=== PATIENT | male | born 1940 | race Caucasian/White ===

== ENCOUNTER 2018-10-07 10:47 | Inpatient (IN) | payer MEDICARE ==
[2018-10-07] VITALS (18 sets, daily range): BP systolic 62–142; BP diastolic 44–72
[~2018-10-07] VITALS: Ht 177.8 cm; Wt 95.2 kg
[2018-10-07] MEDS ORDERED: IV NORMAL SALINE 1000ML BAG 1,000 ML IV SCH ×2 (10:52→16:00)
[2018-10-07] MEDS ORDERED: SUCCINYLCHOLINE 200 MG/10 ML VIAL. ONE (11:13)
[2018-10-07] MEDS ORDERED: ETOMIDATE 20 MG/10 ML VIAL. IV ONE ×2 (11:13→11:30)
[2018-10-07] MEDS ORDERED: MIDAZOLAM 100mg/100ml NS BAG 100 ML IV ONE (11:15)
[2018-10-07 11:25] LABS: BASE EXCESS ABG 1 mmol/L (-3-3); HCO3 ABG 31 mmol/L (21-28); PO2 ABG 477 mmHg (65-108); SAT O2 ABG 99 % (92-99)
[2018-10-07] MEDS ORDERED: SUCCINYLCHOLINE 200 MG/10 ML VIAL. IV ONE (11:30)
[2018-10-07 11:34] LABS: BILIRUBIN,URINE NEGATIVE (NEG); COLOR,URINE YELLOW; NITRITE,URINE POSITIVE (NEG); PH,URINE 6.5; PROTEIN,URINE 30 mg/dL (NEG-TRACE); UROBILINOGEN,URINE 0.2 mg/dL (0.2 mg/dL)
[2018-10-07 11:41] LABS: AMPHETAMINE/METHAMPHETAMINE NEG (NEG); BARBITURATES NEG (NEG); BENZODIAZEPINES POS (NEG); CANNABINOIDS NEG (NEG); COCAINE NEG (NEG); METHADONE NEG (NEG); OPIATES NEG (NEG); PHENCYCLIDINE NEG (NEG)
[2018-10-07 11:55] LABS: BACTERIA,URINE FEW /HPF (0-FEW); RBC,URINE TNTC /HPF (0-2); SQUAMOUS EPITHELIAL CELL,UR FEW /LPF; WBC,URINE 20-40 /HPF (0-4)
[2018-10-07 11:56] LABS: CLARITY,URINE HAZY
[2018-10-07] MEDS ORDERED: methylPREDNISolone SOD SUCC PF 125 MG/2 ML VIAL. IV ONE (12:00)
[2018-10-07] MEDS ORDERED: ALBUTEROL SULFATE 2.5 MG/3 ML NEBU. CONT NEB ONE (12:00)
[2018-10-07] MEDS ORDERED: VANCOMYCIN 1GM IVPB FOR OMNI 250 ML IV ONE (12:00)
[2018-10-07 12:07] LABS: PROTHROMBIN TIME PATIENT 14.1 SEC (11.7-14.0)
--- NOTE | 2018-10-07 12:07 | RAD ---
AP portable chest radiograph 10/07/2018 Clinical History: Post intubation. Unresponsive. An AP supine portable digital radiograph of the chest was obtained. No previous studies are available for comparison. An ET tube has been placed. The tip of this tube extends to overlie the trachea at the level of clavicles. A NG tube has been placed. The tip of this tube is off this radiograph in the region of the body of the stomach. The cardiac silhouette is normal in size. Atherosclerotic calcification of the thoracic aorta is seen. Patchy left lower lobe subsegmental atelectasis and/or infiltrate is noted. No pneumothorax or pleural effusion is seen. Degenerative changes are seen involving the thoracic spine. IMPRESSION: 1. ET and NG tube position as discussed above. 2. Patchy left lower lobe subsegmental atelectasis and/or infiltrate. Electronically signed by: Ben Danielson MD (10/07/2018 12:05 PM) [facility]
[2018-10-07 12:12] LABS: BASO % 0 % (0-3); D-DIMER 2.91 ug/mlFEU (0.00-0.50); EOS % 0 % (0-3); HEMATOCRIT 44.3 % (39.0-53.0); HEMOGLOBIN 13.8 g/dL (13.0-17.5); LYMPH # 0.5 x10^3/uL (1.0-4.8); LYMPH % 3 % (24-48); MEAN CORPUSCULAR HEMOGLOBIN 29 pg (25-35); MEAN CORPUSCULAR HGB CONC 31 g/dL (31-37); MEAN CORPUSCULAR VOLUME 93 fL (79-100); MONO % 6 % (0-9); NEUT # 15.7 x10^3uL (1.8-7.7); NEUT % 91 % (31-73); PLATELET COUNT 150 x10^3/uL (140-400); RED BLOOD COUNT 4.74 x10^6/uL (4.30-5.70); RED CELL DISTRIBUTION WIDTH 15.2 % (11.5-14.5); WHITE BLOOD COUNT 17.3 x10^3/uL (4.0-11.0)
--- NOTE | 2018-10-07 12:17 | RAD ---
CT scan of the head without contrast 10/07/2018 Clinical History: Unresponsive. Technique: Unenhanced, contiguous, 5 mm axial sections were obtained through the head. One or more of the following individualized dose reduction techniques were utilized for this study: 1. Automated exposure control. 2. Adjustment of the mA and/or kV according to patient size. 3. Use of iterative reconstruction technique. Findings: No previous studies are available for comparison. There is generalized parenchymal atrophy. Areas of decreased attenuation are seen within the periventricular and subcortical white matter of both cerebral hemispheres consistent with areas of small vessel ischemic disease. An area encephalomalacia seen involving the right temporal lobe which extends to involve the right parietal lobe. No acute parenchymal abnormality is seen. No extra-axial fluid collection is noted. No skull fracture is seen. Mild mucosal thickening is seen throughout the visualized paranasal sinuses. Impression: No acute intracranial abnormality is seen. Electronically signed by: Ben Danielson MD (10/07/2018 12:14 PM) [facility]
[2018-10-07 12:22] LABS: ALBUMIN 3.9 g/dL (3.4-5.0); ALBUMIN/GLOBULIN RATIO 1.1 (1.0-1.7); CALCIUM 8.7 mg/dL (8.5-10.1); CREATININE 2.1 mg/dL (0.7-1.3); GFR 30.9; MAGNESIUM 1.8 mg/dL (1.8-2.4); TOTAL PROTEIN 7.3 g/dL (6.4-8.2)
[2018-10-07 12:26] LABS: POTASSIUM 7.3 mmol/L (3.5-5.1)
[2018-10-07] MEDS ORDERED: SODIUM BICARB ADULT 8.4% 50 MEQ/50 ML DISP.SYRIN. IV ONE (12:45)
[2018-10-07] MEDS ORDERED: INSULIN REGULAR 100 UNIT/ML 3ML VIAL. IV ONE (12:45)
[2018-10-07] MEDS ORDERED: levOFLOXacin PER PHARMACY. MC PRN (12:45)
[2018-10-07] MEDS ORDERED: DEXTROSE 50% 25 GM / 50ML DISP.SYRIN. IV PRN (12:45)
[2018-10-07] MEDS ORDERED: PANTOPRAZOLE IV PUSH 40 MG VIAL. IVP ONE ×2 (12:45→12:52)
[2018-10-07] MEDS ORDERED: DEXTROSE 50% 25 GM / 50ML DISP.SYRIN. IV ONE (12:45)
[2018-10-07] MEDS ORDERED: IV NORMAL SALINE 1000ML BAG 1,000 ML IV ONE ×4 (12:45→15:00)
--- NOTE | 2018-10-07 12:53 | PHYS DOC ---
Past Medical History Past Medical History: COPD, CVA Past Surgical History: Other Additional Past Surgical Histo: UNKNOWN Alcohol Use: None Drug Use: None Adult General Chief Complaint Chief Complaint: NEURO SYMPTOMS/DEFICITS HPI HPI Patient is a 78 year old male who brought in by EMS because of unresponsiveness. Patient has history of COPD on 4 L of home oxygen and had sick contacts at home with cough and increasing shortness of breath for the last few days. Patient was seen at her recliner like his usual condition around 2 AM and this morning was found unresponsive without his oxygen and half way down on his chair. EMS reported that patient had O2 sat of 70s that increased with nonrebr eather to more than 90s and was able to move his right hand but was not able to move left hand and brought him as a possible code stroke. Patient is unresponsive at arrival to ER and only able to open his eyes without following any commands or responding to painful stimuli. Review of Systems Review of Systems Unable to obtain because of unresponsive condition Current Medications Current Medications Current Medications Medications (Trade) Dose Ordered Sig/Eric Start Time Stop Time Status Last Admin Dose Admin Etomidate (Amidate) 20 mg 1X ONCE 10/07/18 11:30 10/07/18 11:33 DC 10/07/18 11:01 20 MG Midazolam HCl 100 ml @ 1 mls/hr 1X ONCE 10/07/18 11:15 10/11/18 15:14 10/07/18 11:20 3 MLS/HR Sodium Chloride 1,000 ml @ 1,000 mls/hr Q1H 10/07/18 10:52 10/07/18 11:51 DC 10/07/18 11:27 1,000 MLS/HR Succinylcholine Chloride (Anectine) 100 mg 1X ONCE 10/07/18 11:30 10/07/18 11:33 DC 10/07/18 11:01 100 MG Physical Exam Physical Exam Constitutional: Unresponsive, severe respiratory distress on nonrebreather HENT: Normocephalic, atraumatic. Eyes: PERRLA. Neck: Atraumatic Cardiovascular: Tachycardia Lungs & Thorax: Severe respiratory distress with intercostal retraction and hyperventilation and nasal flaring on nonrebreather with decrease of air movement and generalized rhonchi Abdomen: Obese. Skin:cold Extremities:Does not move extremities , 2+ lower extremity edema edema. [] Neurologic: Unresponsive Current Patient Data Vital Signs Vital Signs Date Time Temp Pulse Resp B/P (MAP) Pulse Ox O2 Delivery O2 Flow Rate FiO2 10/07/18 11:25 96 10/07/18 11:10 88 10/07/18 11:10 Ventilator 10/07/18 10:47 98.4 31 102/63 (76) 98.4 Lab Values Laboratory Tests Test 10/07/18 10:52 10/07/18 11:01 10/07/18 11:25 10/07/18 11:30 O2 Saturation 99 % (92-99) Arterial Blood pH 7.23 (7.35-7.45) L Arterial Blood pCO2 at Patient Temp 76 mmHg (35-46) *H Arterial Blood pO2 at Patient Temp 477 mmHg (65-108) H Arterial Blood HCO3 31 mmol/L (21-28) H Arterial Blood Base Excess 1 mmol/L (-3-3) FiO2 100% Glucose (Fingerstick) 139 mg/dL (70-99) H POC Troponin I 0.14 ng/ml (<0.08) Urine Collection Type U cath Urine Color Yellow Urine Clarity Hazy Urine pH 6.5 Urine Specific [place]pton 1.015 Urine Protein 30 mg/dL (NEG-TRACE) Urine Glucose (UA) Negative mg/dL (NEG) Urine Ketones (Stick) Negative mg/dL (NEG) Urine Blood Large (NEG) Urine Nitrite Positive (NEG) Urine Bilirubin Negative (NEG) Urine Urobilinogen Dipstick 0.2 mg/dL (0.2 mg/dL) Urine Leukocyte Esterase Moderate (NEG) Urine RBC Tntc /HPF (0-2) Urine WBC 20-40 /HPF (0-4) Urine Squamous Epithelial Cells Few /LPF Urine Bacteria Few /HPF (0-FEW) Urine Opiates Screen Neg (NEG) Urine Methadone Screen Neg (NEG) Urine Barbiturates Neg (NEG) Urine Phencyclidine Screen Neg (NEG) Urine Amphetamine/Methamphetamine Neg (NEG) Urine Benzodiazepines Screen Pos (NEG) Urine Cocaine Screen Neg (NEG) Urine Cannabinoids Screen Neg (NEG) Urine Ethyl Alcohol neg (NEG) White Blood Count 17.3 x10^3/uL (4.0-11.0) H Red Blood Count 4.74 x10^6/uL (4.30-5.70) Hemoglobin 13.8 g/dL (13.0-17.5) Hematocrit 44.3 % (39.0-53.0) Mean Corpuscular Volume 93 fL (79-100) Mean Corpuscular Hemoglobin 29 pg (25-35) Mean Corpuscular Hemoglobin Concent 31 g/dL (31-37) Red Cell Distribution Width 15.2 % (11.5-14.5) H Platelet Count 150 x10^3/uL (140-400) Neutrophils (%) (Auto) 91 % (31-73) H Lymphocytes (%) (Auto) 3 % (24-48) L Monocytes (%) (Auto) 6 % (0-9) Eosinophils (%) (Auto) 0 % (0-3) Basophils (%) (Auto) 0 % (0-3) Neutrophils # (Auto) 15.7 x10^3uL (1.8-7.7) H Lymphocytes # (Auto) 0.5 x10^3/uL (1.0-4.8) L Monocytes # (Auto) 1.0 x10^3/uL (0.0-1.1) Eosinophils # (Auto) 0.0 x10^3/uL (0.0-0.7) Basophils # (Auto) 0.0 x10^3/uL (0.0-0.2) Segmented Neutrophils % 60 % (35-66) Band Neutrophils % 26 % (0-9) H Lymphocytes % 7 % (24-48) L Monocytes % 5 % (0-10) Basophils % 2 % (0-3) Toxic Vacuolation Slight Platelet Estimate Adequate (ADEQUATE) Giant Platelets Occ Prothrombin Time 14.1 SEC (11.7-14.0) H Prothrombin Time INR 1.1 (0.8-1.1) D-Dimer (Traci) 2.91 ug/mlFEU (0.00-0.50) H Sodium Level 140 mmol/L (136-145) Potassium Level 7.3 mmol/L (3.5-5.1) *H Chloride Level 100 mmol/L (98-107) Carbon Dioxide Level 32 mmol/L (21-32) Anion Gap 8 (6-14) Blood Urea Nitrogen 22 mg/dL (8-26) Creatinine 2.1 mg/dL (0.7-1.3) H Estimated GFR (Cockcroft-Gault) 30.9 BUN/Creatinine Ratio 10 (6-20) Glucose Level 145 mg/dL (70-99) H Lactic Acid Level 3.1 mmol/L (0.4-2.0) H Calcium Level 8.7 mg/dL (8.5-10.1) Magnesium Level 1.8 mg/dL (1.8-2.4) Total Bilirubin 2.0 mg/dL (0.2-1.0) H Aspartate Amino Transferase (AST) 47 U/L (15-37) H Alanine Aminotransferase (ALT) 55 U/L (16-63) Alkaline Phosphatase 89 U/L (46-116) Ammonia 28 mcmol/L (11-34) Creatine Kinase 262 U/L (39-308) Troponin I Quantitative 0.226 ng/mL (0.000-0.055) BO-Yad-X-Type Natriuretic Peptide 1041 pg/mL (0-449) H Total Protein 7.3 g/dL (6.4-8.2) Albumin 3.9 g/dL (3.4-5.0) Albumin/Globulin Ratio 1.1 (1.0-1.7) Lipase 45 U/L (73-393) L Laboratory Tests 10/07/18 11:30 Laboratory Tests 10/07/18 11:30 EKG EKG EKG interpreted by me. EKG at 11:30 showed sinus tachycardia at rate of 105, incomplete right bundle-branch block, no acute ST and T-wave abnormalities. Radiology/Procedures Radiology/Procedures [facility] [address] [place], [place] [id number] IMAGING REPORT Signed PATIENT: JOSLYN SOTELO ACCOUNT: [id number] : 1940 LOCATION: [address] [place] [address] AGE: 78 SEX: M EXAM STATUS: ADM IN ORD. PHYSICIAN: THIERNO SULTANA MD REASON: unresponsive, INTUBATION PROCEDURE: PORTABLE CHEST 1V AP portable chest radiograph 10/07/2018 Clinical History: Post intubation. Unresponsive. An AP supine portable digital radiograph of the chest was obtained. No previous studies are available for comparison. An ET tube has been placed. The tip of this tube extends to overlie the trachea at the level of clavicles. A NG tube has been placed. The tip of this tube is off this radiograph in the region of the body of the stomach. The cardiac silhouette is normal in size. Atherosclerotic calcification of the thoracic aorta is seen. Patchy left lower lobe subsegmental atelectasis and/or infiltrate is noted. No pneumothorax or pleural effusion is seen. Degenerative changes are seen involving the thoracic spine. IMPRESSION: 1. ET and NG tube position as discussed above. 2. Patchy left lower lobe subsegmental atelectasis and/or infiltrate. Electronically signed by: Ben Danielson MD (10/07/2018 12:05 PM) [facility] DICTATED and SIGNED BY: BEN DANIELSON MD DATE: 10/07/18 1208 [facility] [address] [facility] [place], [place] [phone] IMAGING REPORT Signed PATIENT: JOSLYN SOTELO ACCOUNT: [id number] : 1940 LOCATION: [facility] ICU AGE: 78 SEX: M EXAM STATUS: ADM IN ORD. PHYSICIAN: THIERNO SULTANA MD REASON: unresponsive / AMS PROCEDURE: CT HEAD WO CONTRAST CT scan of the head without contrast 10/07/2018 Clinical History: Unresponsive. Technique: Unenhanced, contiguous, 5 mm axial sections were obtained through the head. One or more of the following individualized dose reduction techniques were utilized for this study: 1. Automated exposure control. 2. Adjustment of the mA and/or kV according to patient size. 3. Use of iterative reconstruction technique. Findings: No previous studies are available for comparison. There is generalized parenchymal atrophy. Areas of decreased attenuation are seen within the periventricular and subcortical white matter of both cerebral hemispheres consistent with areas of small vessel ischemic disease. An area encephalomalacia seen involving the right temporal lobe which extends to involve the right parietal lobe. No acute parenchymal abnormality is seen. No extra-axial fluid collection is noted. No skull fracture is seen. Mild mucosal thickening is seen throughout the visualized paranasal sinuses. Impression: No acute intracranial abnormality is seen. Electronically signed by: Ben Danielson MD (10/07/2018 12:14 PM) [facility] DICTATED and SIGNED BY: BEN DANIELSON MD DATE: 10/07/18 1214 Course & Med Decision Making Course & Med Decision Making Pertinent Labs and Imaging studies reviewed. (See chart for details) Evaluation of Patient in ER showed 78-year-old male patient brought in by EMS because of acute respiratory distress and unresponsiveness and was intubated at arrival to ER. Patient later on was in his extremities except for left upper extremity. Patient treated with Versed and his blood pressure dropped to 60s that improved after IV fluid to more than 100 at time of transfer to ICU. Dr. Pritchard presented to ER and evaluated the patient. Dragon Disclaimer Dragon Disclaimer This electronic medical record was generated, in whole or in part, using a voice recognition dictation system. Departure Departure Impression: Primary Impression: Acute respiratory distress Additional Impressions: Unresponsiveness CAP (community acquired pneumonia) Sepsis Hyperkalemia Renal insufficiency Urinary tract infection Elevated liver function tests Elevated troponin I level CHF (congestive heart failure) Disposition: ADMITTED INPATIENT (at 12:30) Admitting Physician: Veronique Pritchrad (presented to ER and evaluated the patient) Condition: GUARDED Referrals: BERHANE DAVIS DO (PCP) Intubation Procedure Intubation Procedure Intub Indication: Respiratory failure Consent: Unable to give consent due to emergent nature. Medications Used: see nursing note Procedure: The patient was placed in the appropriate position. Intubation was performed [address] visualization and 7.5 tube was placed and was secured with device. Initial confirmation of placement included bilateral breath sounds, tube fogging, adequate chest rise, adequate pulse oximetry reading. A chest x-ray to verify correct placement of the tube showed appropriate tube pos ition. The patient tolerated the procedure well. Complications: none. Critical Care Time Critical care time was 80 minutes exclusive of procedures. Problem Qualifiers Additional Impressions: CAP (community acquired pneumonia) Laterality: left Lung location: unspecified part of lung Qualified Codes: J18.9 - Pneumonia, unspecified organism Sepsis Sepsis type: sepsis due to unspecified organism Qualified Codes: A41.9 - Sepsis, unspecified organism Urinary tract infection Urinary tract infection type: site unspecified Hematuria presence: with hematuria Qualified Codes: N39.0 - Urinary tract infection, site not spe cified; R31.9 - Hematuria, unspecified CHF (congestive heart failure) Heart failure type: unspecified Heart failure chronicity: unspecified Q ualified Codes: I50.9 - Heart failure, unspecified THIERNO SULTANA MD October 07, 2018 12:53
--- NOTE | 2018-10-07 12:55 | PDOC1 ---
History and Physical Date of Admission Date of Admission DATE: 10/07/18 TIME: 12:46 Identification/Chief Complaint Chief Complaint Found unresponsive at home by family Source Source: Caregiver, Chart review, Patient History of Present Illness History of Present Illness 78-year-old white male history of COPD O2 dependent quit smoking 4 years ago, on 3 L nasal cannula at home and 5 L on exertion Was last seen well 2: 30 a.m. when he was watching TV as per relay. Son also helps in hx at bedside. No known significant coronary problems that they can relate to me. HX stroke 2011 with no significant residuals, HE was found unresponsive or minimally responsive at home, no CP prior, EMS called. No CPR needed did not lose a pulse. Intubated at the emergency room. He was waking his eyes but was lethargic at ER. Intubated, small dose versed, and a little bit hypotensive now 60s systolic tachycardia. Chest x-ray shows atelectasis and maybe left lower lobe infiltrate. Also UTI on UA. Tested positive for benzos and UDS and he is on inhalers and some medications. Got a dose of Levaquin and Solu-Medrol. Lactate is elevated with potassium 7 with no EKG changes and normal creatinine with good urine output via Jeffers. We will admit for respiratory failure pulmonary on board to ICU, antibiotics for UTI and pneumonia. And other supportive meds i.e. tube feeds etc. PPI prophylaxis and DVT prophylaxis. The rest of the labs are still rolling Did get insulin and some temporizing measures for hyperkalemia from ER Past Medical History Pulmonary: Bronchitis, COPD Past Surgical History Past Surgical History: No pertinent history Family History Family History: Family History Unknown Social History Smoke: Quit ALCOHOL: none Drugs: None Current Medications Current Medications Current Medications Sodium Chloride 1,000 ml @ 1,000 mls/hr Q1H IV Last administered on 10/07/18at 11:27; Start 10/07/18 at 10:52; Stop 10/07/18 at 11:51; Status DC Midazolam HCl 100 ml @ 1 mls/hr 1X ONCE IV Last administered on 10/07/18at 11:20; Start 10/07/18 at 11:15; Stop 10/11/18 at 15:14 Etomidate (Amidate) 20 mg STK-MED ONCE IV ; Start 10/07/18 at 11:13; Stop 10/07/18 at 11:14; Status DC Succinylcholine Chloride (Anectine) 200 mg STK-MED ONCE .ROUTE ; Start 10/07/18 at 11:13; Stop 10/07/18 at 11:14; Status DC Etomidate (Amidate) 20 mg 1X ONCE IV Last administered on 10/07/18at 11:01; Start 10/07/18 at 11:30; Stop 10/07/18 at 11:33; Status DC Succinylcholine Chloride (Anectine) 100 mg 1X ONCE IV Last administered on 10/07/18at 11:01; Start 10/07/18 at 11:30; Stop 10/07/18 at 11:33; Status DC Albuterol Sulfate (Ventolin Neb Soln) 10 mg 1X ONCE CONT NEB ; Start 10/07/18 at 12:00; Stop 10/07/18 at 12:01; Status DC Methylprednisolone Sodium Succinate (SOLU-Medrol 125MG VIAL) 125 mg 1X ONCE IV Last administered on 10/07/18at 11:52; Start 10/07/18 at 12:00; Stop 10/07/18 at 12:01; Status DC Vancomycin HCl 250 ml @ 250 mls/hr 1X ONCE IV Last administered on 10/07/18at 12:27; Start 10/07/18 at 12:00; Stop 10/07/18 at 12:59 Levofloxacin/ Dextrose 150 ml @ 100 mls/hr 1X ONCE IV Last administered on 10/07/18at 12:28; Start 10/07/18 at 12:00; Stop 10/07/18 at 13:29 Sodium Chloride 1,000 ml @ 1,000 mls/hr 1X ONCE IV ; Start 10/07/18 at 12:45; Stop 10/07/18 at 13:44 Sodium Chloride 1,000 ml @ 1,000 mls/hr 1X ONCE IV ; Start 10/07/18 at 12:45; Stop 10/07/18 at 13:44 Dextrose (Dextrose 50%-Water Syringe) 25 gm 1X ONCE IV ; Start 10/07/18 at 12:45; Stop 10/07/18 at 12:46; Status DC Insulin Human Regular (HumuLIN R VIAL) 10 unit 1X ONCE IV ; Start 10/07/18 at 12:45; Stop 10/07/18 at 12:46; Status DC Sodium Bicarbonate (Sodium Bicarb Adult 8.4% Syr) 50 meq 1X ONCE IV ; Start 10/07/18 at 12:45; Stop 10/07/18 at 12:46; Status DC Sodium Chloride 1,000 ml @ 100 mls/hr Q10H IV ; Start 10/07/18 at 12:45; Status UNV Pantoprazole Sodium (PROTONIX VIAL for IV PUSH) 40 mg DAILYAC IVP ; Start 10/08/18 at 07:30; Status UNV Pantoprazole Sodium (PROTONIX VIAL for IV PUSH) 40 mg 1X ONCE IVP ; Start 10/07/18 at 12:45; Stop 10/07/18 at 12:46; Status UNV Heparin Sodium (Porcine) (Heparin Sodium) 5,000 unit Q8HRS SQ ; Start 10/07/18 at 14:00; Status UNV Levofloxacin/ Dextrose (Levaquin Per Pharmacy) 1 each PRN DAILY PRN MC SEE COMMENTS; Start 10/07/18 at 12:45; Status UNV Insulin Human Lispro (HumaLOG) 0-9 UNITS TIDWMEALS SQ ; Start 10/07/18 at 17:00; Status UNV Dextrose (Dextrose 50%-Water Syringe) 12.5 gm PRN Q15MIN PRN IV SEE COMMENTS; Start 10/07/18 at 12:45; Status UNV Albuterol/ Ipratropium (Duoneb) 3 ml RTQID NEB ; Start 10/07/18 at 16:00; Status UNV Methylprednisolone Sodium Succinate (SOLU-Medrol 40MG VIAL) 40 mg Q8HRS IV ; Start 10/07/18 at 14:00; Status UNV Acetaminophen (Tylenol) 650 mg PRN Q6HRS PRN PEG MILD PAIN / TEMP; Start 10/07/18 at 12:45; Status UNV Morphine Sulfate (Morphine Sulfate) 2 mg PRN Q2HR PRN IV PAIN; Start 10/07/18 at 12:45; Status UNV Ondansetron HCl (Zofran) 4 mg PRN Q6HRS PRN IV NAUSEA/VOMITING; Start 10/07/18 at 12:45; Status UNV Norepinephrine Bitartrate 250 ml @ 1.875 mls/ hr CONT PRN IV SEE I/O RECORD; Start 10/07/18 at 12:45; Status UNV Allergies Allergies: Coded Allergies: Penicillins (Verified Allergy, Intermediate, 10/07/18) erythromycin base (Verified Allergy, Intermediate, 10/07/18) ROS Review of System Intubated sedated Physical Exam General: No acute distress HEENT: Atraumatic, PERRLA, EOMI, Mucous membr. moist/pink, Other (intubated sedated) Lungs: Normal air movement, Other (symmetrical chest expansion no crackles or significant wheezing noted on anterior auscultation) Heart: S1S2, RRR, no thrills, no rubs, no gallops, no murmurs Cardiovascular: S1, S2 Abdomen: Normal bowel sounds, Soft, No tenderness, No hepatosplenomegaly, No masses Male Genitals Exam: normal genitalia, normal prostate Rectal Exam: not examined PELVIC: Nml ext genitalia Extremities: No clubbing, No cyanosis, No edema, Normal pulses, No tenderness/swelling Skin: No rashes, No breakdown, No significant lesion Vitals Vitals Vital Signs Date Time Temp Pulse Resp B/P (MAP) Pulse Ox O2 Delivery O2 Flow Rate FiO2 10/07/18 12:13 93 Ventilator 10/07/18 10:47 98.4 31 31 102/63 (76) 98.4 Labs Labs Laboratory Tests Test 10/07/18 10:52 10/07/18 11:01 10/07/18 11:25 10/07/18 11:30 Glucose (Fingerstick) 139 mg/dL (70-99) Bedside Troponin I 0.14 ng/ml (<0.08) Urine Collection Type U cath Urine Color Yellow Urine Clarity Hazy Urine pH 6.5 Urine Specific Muse 1.015 Urine Protein 30 mg/dL (NEG-TRACE) Urine Glucose (UA) Negative mg/dL (NEG) Urine Ketones (Stick) Negative mg/dL (NEG) Urine Blood Large (NEG) Urine Nitrite Positive (NEG) Urine Bilirubin Negative (NEG) Urine Urobilinogen Dipstick 0.2 mg/dL (0.2 mg/dL) Urine Leukocyte Esterase Moderate (NEG) Urine RBC Tntc /HPF (0-2) Urine WBC 20-40 /HPF (0-4) Urine Squamous Epithelial Cells Few /LPF Urine Bacteria Few /HPF (0-FEW) Urine Opiates Screen Neg (NEG) Urine Methadone Screen Neg (NEG) Urine Barbiturates Neg (NEG) Urine Phencyclidine Screen Neg (NEG) Urine Amphetamine/Methamphetamine Neg (NEG) Urine Benzodiazepines Screen Pos (NEG) Urine Cocaine Screen Neg (NEG) Urine Cannabinoids Screen Neg (NEG) Urine Ethyl Alcohol neg (NEG) White Blood Count 17.3 x10^3/uL (4.0-11.0) Red Blood Count 4.74 x10^6/uL (4.30-5.70) Hemoglobin 13.8 g/dL (13.0-17.5) Hematocrit 44.3 % (39.0-53.0) Mean Corpuscular Volume 93 fL (79-100) Mean Corpuscular Hemoglobin 29 pg (25-35) Mean Corpuscular Hemoglobin Concent 31 g/dL (31-37) Red Cell Distribution Width 15.2 % (11.5-14.5) Platelet Count 150 x10^3/uL (140-400) Neutrophils (%) (Auto) 91 % (31-73) Lymphocytes (%) (Auto) 3 % (24-48) Monocytes (%) (Auto) 6 % (0-9) Eosinophils (%) (Auto) 0 % (0-3) Basophils (%) (Auto) 0 % (0-3) Neutrophils # (Auto) 15.7 x10^3uL (1.8-7.7) Lymphocytes # (Auto) 0.5 x10^3/uL (1.0-4.8) Monocytes # (Auto) 1.0 x10^3/uL (0.0-1.1) Eosinophils # (Auto) 0.0 x10^3/uL (0.0-0.7) Basophils # (Auto) 0.0 x10^3/uL (0.0-0.2) Prothrombin Time 14.1 SEC (11.7-14.0) Prothromb Time International Ratio 1.1 (0.8-1.1) D-Dimer (Traci) 2.91 ug/mlFEU (0.00-0.50) Sodium Level 140 mmol/L (136-145) Potassium Level 7.3 mmol/L (3.5-5.1) Chloride Level 100 mmol/L (98-107) Carbon Dioxide Level 32 mmol/L (21-32) Anion Gap 8 (6-14) Blood Urea Nitrogen 22 mg/dL (8-26) Creatinine 2.1 mg/dL (0.7-1.3) Estimated GFR (Cockcroft-Gault) 30.9 BUN/Creatinine Ratio 10 (6-20) Glucose Level 145 mg/dL (70-99) Lactic Acid Level 3.1 mmol/L (0.4-2.0) Calcium Level 8.7 mg/dL (8.5-10.1) Magnesium Level 1.8 mg/dL (1.8-2.4) Total Bilirubin 2.0 mg/dL (0.2-1.0) Aspartate Amino Transf (AST/SGOT) 47 U/L (15-37) Alanine Aminotransferase (ALT/SGPT) 55 U/L (16-63) Alkaline Phosphatase 89 U/L (46-116) Ammonia 28 mcmol/L (11-34) Creatine Kinase 262 U/L (39-308) Troponin I Quantitative 0.226 ng/mL (0.000-0.055) GG-Ylr-M-Type Natriuretic Peptide 1041 pg/mL (0-449) Total Protein 7.3 g/dL (6.4-8.2) Albumin 3.9 g/dL (3.4-5.0) Albumin/Globulin Ratio 1.1 (1.0-1.7) Lipase 45 U/L (73-393) Laboratory Tests Test 10/07/18 10:52 10/07/18 11:01 10/07/18 11:25 10/07/18 11:30 Glucose (Fingerstick) 139 mg/dL (70-99) Bedside Troponin I 0.14 ng/ml (<0.08) Urine Collection Type U cath Urine Color Yellow Urine Clarity Hazy Urine pH 6.5 Urine Specific Muse 1.015 Urine Protein 30 mg/dL (NEG-TRACE) Urine Glucose (UA) Negative mg/dL (NEG) Urine Ketones (Stick) Negative mg/dL (NEG) Urine Blood Large (NEG) Urine Nitrite Positive (NEG) Urine Bilirubin Negative (NEG) Urine Urobilinogen Dipstick 0.2 mg/dL (0.2 mg/dL) Urine Leukocyte Esterase Moderate (NEG) Urine RBC Tntc /HPF (0-2) Urine WBC 20-40 /HPF (0-4) Urine Squamous Epithelial Cells Few /LPF Urine Bacteria Few /HPF (0-FEW) Urine Opiates Screen Neg (NEG) Urine Methadone Screen Neg (NEG) Urine Barbiturates Neg (NEG) Urine Phencyclidine Screen Neg (NEG) Urine Amphetamine/Methamphetamine Neg (NEG) Urine Benzodiazepines Screen Pos (NEG) Urine Cocaine Screen Neg (NEG) Urine Cannabinoids Screen Neg (NEG) Urine Ethyl Alcohol neg (NEG) White Blood Count 17.3 x10^3/uL (4.0-11.0) Red Blood Count 4.74 x10^6/uL (4.30-5.70) Hemoglobin 13.8 g/dL (13.0-17.5) Hematocrit 44.3 % (39.0-53.0) Mean Corpuscular Volume 93 fL (79-100) Mean Corpuscular Hemoglobin 29 pg (25-35) Mean Corpuscular Hemoglobin Concent 31 g/dL (31-37) Red Cell Distribution Width 15.2 % (11.5-14.5) Platelet Count 150 x10^3/uL (140-400) Neutrophils (%) (Auto) 91 % (31-73) Lymphocytes (%) (Auto) 3 % (24-48) Monocytes (%) (Auto) 6 % (0-9) Eosinophils (%) (Auto) 0 % (0-3) Basophils (%) (Auto) 0 % (0-3) Neutrophils # (Auto) 15.7 x10^3uL (1.8-7.7) Lymphocytes # (Auto) 0.5 x10^3/uL (1.0-4.8) Monocytes # (Auto) 1.0 x10^3/uL (0.0-1.1) Eosinophils # (Auto) 0.0 x10^3/uL (0.0-0.7) Basophils # (Auto) 0.0 x10^3/uL (0.0-0.2) Prothrombin Time 14.1 SEC (11.7-14.0) Prothromb Time International Ratio 1.1 (0.8-1.1) D-Dimer (Traci) 2.91 ug/mlFEU (0.00-0.50) Sodium Level 140 mmol/L (136-145) Potassium Level 7.3 mmol/L (3.5-5.1) Chloride Level 100 mmol/L (98-107) Carbon Dioxide Level 32 mmol/L (21-32) Anion Gap 8 (6-14) Blood Urea Nitrogen 22 mg/dL (8-26) Creatinine 2.1 mg/dL (0.7-1.3) Estimated GFR (Cockcroft-Gault) 30.9 BUN/Creatinine Ratio 10 (6-20) Glucose Level 145 mg/dL (70-99) Lactic Acid Level 3.1 mmol/L (0.4-2.0) Calcium Level 8.7 mg/dL (8.5-10.1) Magnesium Level 1.8 mg/dL (1.8-2.4) Total Bilirubin 2.0 mg/dL (0.2-1.0) Aspartate Amino Transf (AST/SGOT) 47 U/L (15-37) Alanine Aminotransferase (ALT/SGPT) 55 U/L (16-63) Alkaline Phosphatase 89 U/L (46-116) Ammonia 28 mcmol/L (11-34) Creatine Kinase 262 U/L (39-308) Troponin I Quantitative 0.226 ng/mL (0.000-0.055) BL-Asz-N-Type Natriuretic Peptide 1041 pg/mL (0-449) Total Protein 7.3 g/dL (6.4-8.2) Albumin 3.9 g/dL (3.4-5.0) Albumin/Globulin Ratio 1.1 (1.0-1.7) Lipase 45 U/L (73-393) VTE Prophylaxis Ordered VTE Prophylaxis Devices: Yes VTE Pharmacological Prophylaxi: Yes Assessment/Plan Assessment/Plan Acute respiratory failure needing IPPV intubated at ER COPD O2 dependent 2-3 L at home at rest and 5 L on exertion [id number] 4 years ago Atelectasis versus left lower lobe pneumonia UTI Hyperkalemia with no EKG changes Sepsis POA with elevated lactate, tachycardia, leukocytosis 17 Troponin elevation mild with a background of sepsis no EKG changes PLAN: ICU bed, vent bundle, pulmonary consult Levaquin for UTI and pneumonia Add calcium gluconate kayexylate for hyperkal Recheck K later 4 PM trend troponin make sure it's not climbing up-if climbing up then may consult cardiology Echo Maintain Jeffers catheter, monitor urine output DVT and PPI ppx in this vented patient Nutrition consult for tube feeds Full code Further recs pending course Recheck lactate and labs tomorrow Discussed with and son at the ER THI MERA MD October 07, 2018 12:55
[2018-10-07] MEDS: PANTOPRAZOLE IV PUSH 40 MG VIAL. IVP SCH (12:59)
[2018-10-07 13:15] LABS: % BANDS 26 % (0-9); % BASOS 2 % (0-3); % LYMPHS 7 % (24-48); % MONOS 5 % (0-10); % SEGS 60 % (35-66); PLT ESTIMATE ADEQUATE (ADEQUATE); TOXIC VACUOLATION SLIGHT
[2018-10-07] MEDS ORDERED: SODIUM POLYSTYRENE SULFONATE 15 GM/60 ML ORAL.SUSP. PO ONE (13:30)
[2018-10-07] MEDS ORDERED: CALCIUM GLUCONATE 1,000 MG/10 ML VIAL. IVP ONE (13:30)
[2018-10-07] MEDS ORDERED: NOREPINEPHRIN 8MG/250ML PREMIX 250 ML IV PRN (14:00)
[2018-10-07] MEDS: IV NORMAL SALINE 1000ML BAG 1,000 ML IV SCH ×2 (14:07→21:55)
[2018-10-07] MEDS: HEPARIN for SUB-Q USE 5,000 UNIT/ML VIAL. SQ SCH ×2 (14:14→21:55)
[2018-10-07 14:25] LABS: FIO2 ABG 100%; PCO2 ABG 76 mmHg (35-46)
--- NOTE | 2018-10-07 14:53 | PDOC ---
PULMONARY PROGRESS NOTES Vitals Vital Signs Date Time Temp Pulse Resp B/P (MAP) Pulse Ox O2 Delivery O2 Flow Rate FiO2 10/07/18 13:20 90 100 10/07/18 12:20 21 10/07/18 12:13 Ventilator 10/07/18 10:47 98.4 102/63 (76) 98.4 Cardiovascular: S1, S2 Labs Laboratory Tests Test 10/07/18 10:52 10/07/18 11:01 10/07/18 11:25 10/07/18 11:30 O2 Saturation 99 % (92-99) Arterial Blood pH 7.23 (7.35-7.45) Arterial Blood pCO2 at Patient Temp 76 mmHg (35-46) Arterial Blood pO2 at Patient Temp 477 mmHg (65-108) Arterial Blood HCO3 31 mmol/L (21-28) Arterial Blood Base Excess 1 mmol/L (-3-3) FiO2 100% Glucose (Fingerstick) 139 mg/dL (70-99) Bedside Troponin I 0.14 ng/ml (<0.08) Urine Collection Type U cath Urine Color Yellow Urine Clarity Hazy Urine pH 6.5 Urine Specific Grayling 1.015 Urine Protein 30 mg/dL (NEG-TRACE) Urine Glucose (UA) Negative mg/dL (NEG) Urine Ketones (Stick) Negative mg/dL (NEG) Urine Blood Large (NEG) Urine Nitrite Positive (NEG) Urine Bilirubin Negative (NEG) Urine Urobilinogen Dipstick 0.2 mg/dL (0.2 mg/dL) Urine Leukocyte Esterase Moderate (NEG) Urine RBC Tntc /HPF (0-2) Urine WBC 20-40 /HPF (0-4) Urine Squamous Epithelial Cells Few /LPF Urine Bacteria Few /HPF (0-FEW) Urine Opiates Screen Neg (NEG) Urine Methadone Screen Neg (NEG) Urine Barbiturates Neg (NEG) Urine Phencyclidine Screen Neg (NEG) Urine Amphetamine/Methamphetamine Neg (NEG) Urine Benzodiazepines Screen Pos (NEG) Urine Cocaine Screen Neg (NEG) Urine Cannabinoids Screen Neg (NEG) Urine Ethyl Alcohol neg (NEG) White Blood Count 17.3 x10^3/uL (4.0-11.0) Red Blood Count 4.74 x10^6/uL (4.30-5.70) Hemoglobin 13.8 g/dL (13.0-17.5) Hematocrit 44.3 % (39.0-53.0) Mean Corpuscular Volume 93 fL (79-100) Mean Corpuscular Hemoglobin 29 pg (25-35) Mean Corpuscular Hemoglobin Concent 31 g/dL (31-37) Red Cell Distribution Width 15.2 % (11.5-14.5) Platelet Count 150 x10^3/uL (140-400) Neutrophils (%) (Auto) 91 % (31-73) Lymphocytes (%) (Auto) 3 % (24-48) Monocytes (%) (Auto) 6 % (0-9) Eosinophils (%) (Auto) 0 % (0-3) Basophils (%) (Auto) 0 % (0-3) Neutrophils # (Auto) 15.7 x10^3uL (1.8-7.7) Lymphocytes # (Auto) 0.5 x10^3/uL (1.0-4.8) Monocytes # (Auto) 1.0 x10^3/uL (0.0-1.1) Eosinophils # (Auto) 0.0 x10^3/uL (0.0-0.7) Basophils # (Auto) 0.0 x10^3/uL (0.0-0.2) Segmented Neutrophils % 60 % (35-66) Band Neutrophils % 26 % (0-9) Lymphocytes % 7 % (24-48) Monocytes % 5 % (0-10) Basophils % 2 % (0-3) Toxic Vacuolation Slight Platelet Estimate Adequate (ADEQUATE) Giant Platelets Occ Prothrombin Time 14.1 SEC (11.7-14.0) Prothromb Time International Ratio 1.1 (0.8-1.1) D-Dimer (Traci) 2.91 ug/mlFEU (0.00-0.50) Sodium Level 140 mmol/L (136-145) Potassium Level 7.3 mmol/L (3.5-5.1) Chloride Level 100 mmol/L (98-107) Carbon Dioxide Level 32 mmol/L (21-32) Anion Gap 8 (6-14) Blood Urea Nitrogen 22 mg/dL (8-26) Creatinine 2.1 mg/dL (0.7-1.3) Estimated GFR (Cockcroft-Gault) 30.9 BUN/Creatinine Ratio 10 (6-20) Glucose Level 145 mg/dL (70-99) Lactic Acid Level 3.1 mmol/L (0.4-2.0) Calcium Level 8.7 mg/dL (8.5-10.1) Magnesium Level 1.8 mg/dL (1.8-2.4) Total Bilirubin 2.0 mg/dL (0.2-1.0) Aspartate Amino Transf (AST/SGOT) 47 U/L (15-37) Alanine Aminotransferase (ALT/SGPT) 55 U/L (16-63) Alkaline Phosphatase 89 U/L (46-116) Ammonia 28 mcmol/L (11-34) Creatine Kinase 262 U/L (39-308) Troponin I Quantitative 0.226 ng/mL (0.000-0.055) AA-Owa-A-Type Natriuretic Peptide 1041 pg/mL (0-449) Total Protein 7.3 g/dL (6.4-8.2) Albumin 3.9 g/dL (3.4-5.0) Albumin/Globulin Ratio 1.1 (1.0-1.7) Lipase 45 U/L (73-393) Test 10/07/18 14:31 Glucose (Fingerstick) 168 mg/dL (70-99) Laboratory Tests Test 10/07/18 10:52 10/07/18 11:01 10/07/18 11:25 10/07/18 11:30 O2 Saturation 99 % (92-99) Arterial Blood pH 7.23 (7.35-7.45) Arterial Blood pCO2 at Patient Temp 76 mmHg (35-46) Arterial Blood pO2 at Patient Temp 477 mmHg (65-108) Arterial Blood HCO3 31 mmol/L (21-28) Arterial Blood Base Excess 1 mmol/L (-3-3) FiO2 100% Glucose (Fingerstick) 139 mg/dL (70-99) Bedside Troponin I 0.14 ng/ml (<0.08) Urine Collection Type U cath Urine Color Yellow Urine Clarity Hazy Urine pH 6.5 Urine Specific Grayling 1.015 Urine Protein 30 mg/dL (NEG-TRACE) Urine Glucose (UA) Negative mg/dL (NEG) Urine Ketones (Stick) Negative mg/dL (NEG) Urine Blood Large (NEG) Urine Nitrite Positive (NEG) Urine Bilirubin Negative (NEG) Urine Urobilinogen Dipstick 0.2 mg/dL (0.2 mg/dL) Urine Leukocyte Esterase Moderate (NEG) Urine RBC Tntc /HPF (0-2) Urine WBC 20-40 /HPF (0-4) Urine Squamous Epithelial Cells Few /LPF Urine Bacteria Few /HPF (0-FEW) Urine Opiates Screen Neg (NEG) Urine Methadone Screen Neg (NEG) Urine Barbiturates Neg (NEG) Urine Phencyclidine Screen Neg (NEG) Urine Amphetamine/Methamphetamine Neg (NEG) Urine Benzodiazepines Screen Pos (NEG) Urine Cocaine Screen Neg (NEG) Urine Cannabinoids Screen Neg (NEG) Urine Ethyl Alcohol neg (NEG) White Blood Count 17.3 x10^3/uL (4.0-11.0) Red Blood Count 4.74 x10^6/uL (4.30-5.70) Hemoglobin 13.8 g/dL (13.0-17.5) Hematocrit 44.3 % (39.0-53.0) Mean Corpuscular Volume 93 fL (79-100) Mean Corpuscular Hemoglobin 29 pg (25-35) Mean Corpuscular Hemoglobin Concent 31 g/dL (31-37) Red Cell Distribution Width 15.2 % (11.5-14.5) Platelet Count 150 x10^3/uL (140-400) Neutrophils (%) (Auto) 91 % (31-73) Lymphocytes (%) (Auto) 3 % (24-48) Monocytes (%) (Auto) 6 % (0-9) Eosinophils (%) (Auto) 0 % (0-3) Basophils (%) (Auto) 0 % (0-3) Neutrophils # (Auto) 15.7 x10^3uL (1.8-7.7) Lymphocytes # (Auto) 0.5 x10^3/uL (1.0-4.8) Monocytes # (Auto) 1.0 x10^3/uL (0.0-1.1) Eosinophils # (Auto) 0.0 x10^3/uL (0.0-0.7) Basophils # (Auto) 0.0 x10^3/uL (0.0-0.2) Segmented Neutrophils % 60 % (35-66) Band Neutrophils % 26 % (0-9) Lymphocytes % 7 % (24-48) Monocytes % 5 % (0-10) Basophils % 2 % (0-3) Toxic Vacuolation Slight Platelet Estimate Adequate (ADEQUATE) Giant Platelets Occ Prothrombin Time 14.1 SEC (11.7-14.0) Prothromb Time International Ratio 1.1 (0.8-1.1) D-Dimer (Traci) 2.91 ug/mlFEU (0.00-0.50) Sodium Level 140 mmol/L (136-145) Potassium Level 7.3 mmol/L (3.5-5.1) Chloride Level 100 mmol/L (98-107) Carbon Dioxide Level 32 mmol/L (21-32) Anion Gap 8 (6-14) Blood Urea Nitrogen 22 mg/dL (8-26) Creatinine 2.1 mg/dL (0.7-1.3) Estimated GFR (Cockcroft-Gault) 30.9 BUN/Creatinine Ratio 10 (6-20) Glucose Level 145 mg/dL (70-99) Lactic Acid Level 3.1 mmol/L (0.4-2.0) Calcium Level 8.7 mg/dL (8.5-10.1) Magnesium Level 1.8 mg/dL (1.8-2.4) Total Bilirubin 2.0 mg/dL (0.2-1.0) Aspartate Amino Transf (AST/SGOT) 47 U/L (15-37) Alanine Aminotransferase (ALT/SGPT) 55 U/L (16-63) Alkaline Phosphatase 89 U/L (46-116) Ammonia 28 mcmol/L (11-34) Creatine Kinase 262 U/L (39-308) Troponin I Quantitative 0.226 ng/mL (0.000-0.055) QU-Ckk-E-Type Natriuretic Peptide 1041 pg/mL (0-449) Total Protein 7.3 g/dL (6.4-8.2) Albumin 3.9 g/dL (3.4-5.0) Albumin/Globulin Ratio 1.1 (1.0-1.7) Lipase 45 U/L (73-393) Test 10/07/18 14:31 Glucose (Fingerstick) 168 mg/dL (70-99) Impression . DICTATED A RESP FAILURE AECOPD PNEUMONIA KRISTI DOMINGUEZ MD October 07, 2018 14:53
[2018-10-07] MEDS ORDERED: CALCIUM GLUCONATE 1,000 MG in IV NORMAL SALINE 100ML 100 ML IV ONE (15:00)
[2018-10-07] MEDS ORDERED: ALBUTEROL SULFATE 2.5 MG/3 ML NEBU. NEB PRN (15:00)
--- NOTE | 2018-10-07 15:00 | NUR ---
Pt arrived to ICU bed 103 via gurney from ED. Pt found unresponsive at home. Pt currently on ventilator with think secretions. horowitz catheter intact. Og connected to LIS. at bedside. Consults called to cardiology, ID, and pulmonary. Will continue to monitor.
[2018-10-07] MEDS: IPRATRPIUM/ALBUTEROL 0.5/2.5MG 3 ML NEBU. NEB SCH ×2 (15:50→19:56)
[2018-10-07] MEDS ORDERED: IPRATRPIUM/ALBUTEROL 0.5/2.5MG 3 ML NEBU. NEB SCH (16:00)
[2018-10-07] MEDS ORDERED: ALBU2.5V8 INH (16:56)
[2018-10-07] MEDS ORDERED: OXAZ30CA2 PO (16:56)
[2018-10-07] MEDS ORDERED: INSULIN LISPRO 300 UNITS/3 ML INSULN.PEN. SQ SCH (17:00)
--- NOTE | 2018-10-07 17:05 | PDOC ---
Infectious Disease Note Vital Sign Vital Signs Vital Signs Date Time Temp Pulse Resp B/P (MAP) Pulse Ox O2 Delivery O2 Flow Rate FiO2 10/07/18 15:00 86 22 107/70 (82) 100 Ventilator 10/07/18 13:30 98.9 98.9 Labs Lab Laboratory Tests Test 10/07/18 10:52 10/07/18 11:01 10/07/18 11:25 10/07/18 11:30 O2 Saturation 99 % (92-99) Arterial Blood pH 7.23 (7.35-7.45) Arterial Blood pCO2 at Patient Temp 76 mmHg (35-46) Arterial Blood pO2 at Patient Temp 477 mmHg (65-108) Arterial Blood HCO3 31 mmol/L (21-28) Arterial Blood Base Excess 1 mmol/L (-3-3) FiO2 100% Glucose (Fingerstick) 139 mg/dL (70-99) Bedside Troponin I 0.14 ng/ml (<0.08) Urine Collection Type U cath Urine Color Yellow Urine Clarity Hazy Urine pH 6.5 Urine Specific [place] 1.015 Urine Protein 30 mg/dL (NEG-TRACE) Urine Glucose (UA) Negative mg/dL (NEG) Urine Ketones (Stick) Negative mg/dL (NEG) Urine Blood Large (NEG) Urine Nitrite Positive (NEG) Urine Bilirubin Negative (NEG) Urine Urobilinogen Dipstick 0.2 mg/dL (0.2 mg/dL) Urine Leukocyte Esterase Moderate (NEG) Urine RBC Tntc /HPF (0-2) Urine WBC 20-40 /HPF (0-4) Urine Squamous Epithelial Cells Few /LPF Urine Bacteria Few /HPF (0-FEW) Urine Opiates Screen Neg (NEG) Urine Methadone Screen Neg (NEG) Urine Barbiturates Neg (NEG) Urine Phencyclidine Screen Neg (NEG) Urine Amphetamine/Methamphetamine Neg (NEG) Urine Benzodiazepines Screen Pos (NEG) Urine Cocaine Screen Neg (NEG) Urine Cannabinoids Screen Neg (NEG) Urine Ethyl Alcohol neg (NEG) White Blood Count 17.3 x10^3/uL (4.0-11.0) Red Blood Count 4.74 x10^6/uL (4.30-5.70) Hemoglobin 13.8 g/dL (13.0-17.5) Hematocrit 44.3 % (39.0-53.0) Mean Corpuscular Volume 93 fL (79-100) Mean Corpuscular Hemoglobin 29 pg (25-35) Mean Corpuscular Hemoglobin Concent 31 g/dL (31-37) Red Cell Distribution Width 15.2 % (11.5-14.5) Platelet Count 150 x10^3/uL (140-400) Neutrophils (%) (Auto) 91 % (31-73) Lymphocytes (%) (Auto) 3 % (24-48) Monocytes (%) (Auto) 6 % (0-9) Eosinophils (%) (Auto) 0 % (0-3) Basophils (%) (Auto) 0 % (0-3) Neutrophils # (Auto) 15.7 x10^3uL (1.8-7.7) Lymphocytes # (Auto) 0.5 x10^3/uL (1.0-4.8) Monocytes # (Auto) 1.0 x10^3/uL (0.0-1.1) Eosinophils # (Auto) 0.0 x10^3/uL (0.0-0.7) Basophils # (Auto) 0.0 x10^3/uL (0.0-0.2) Segmented Neutrophils % 60 % (35-66) Band Neutrophils % 26 % (0-9) Lymphocytes % 7 % (24-48) Monocytes % 5 % (0-10) Basophils % 2 % (0-3) Toxic Vacuolation Slight Platelet Estimate Adequate (ADEQUATE) Giant Platelets Occ Prothrombin Time 14.1 SEC (11.7-14.0) Prothromb Time International Ratio 1.1 (0.8-1.1) D-Dimer (Traci) 2.91 ug/mlFEU (0.00-0.50) Sodium Level 140 mmol/L (136-145) Potassium Level 7.3 mmol/L (3.5-5.1) Chloride Level 100 mmol/L (98-107) Carbon Dioxide Level 32 mmol/L (21-32) Anion Gap 8 (6-14) Blood Urea Nitrogen 22 mg/dL (8-26) Creatinine 2.1 mg/dL (0.7-1.3) Estimated GFR (Cockcroft-Gault) 30.9 BUN/Creatinine Ratio 10 (6-20) Glucose Level 145 mg/dL (70-99) Lactic Acid Level 3.1 mmol/L (0.4-2.0) Calcium Level 8.7 mg/dL (8.5-10.1) Magnesium Level 1.8 mg/dL (1.8-2.4) Total Bilirubin 2.0 mg/dL (0.2-1.0) Aspartate Amino Transf (AST/SGOT) 47 U/L (15-37) Alanine Aminotransferase (ALT/SGPT) 55 U/L (16-63) Alkaline Phosphatase 89 U/L (46-116) Ammonia 28 mcmol/L (11-34) Creatine Kinase 262 U/L (39-308) Troponin I Quantitative 0.226 ng/mL (0.000-0.055) [id number]-Jyj-T-Type Natriuretic Peptide 1041 pg/mL (0-449) Total Protein 7.3 g/dL (6.4-8.2) Albumin 3.9 g/dL (3.4-5.0) Albumin/Globulin Ratio 1.1 (1.0-1.7) Lipase 45 U/L (73-393) Test 10/07/18 14:31 Glucose (Fingerstick) 168 mg/dL (70-99) Objective Assessment Pneumonia UTI, POA Lactic acidosis Allergy PCN w/ hives and throat swelling; erythromycin w/ hives. Leukocytosis Hypotension, Levophed gtt Acute encephalopathy Acute respiratory failure ALEX COPD, O2 dependent Plan Plan of Care One time dose vancomycin, 10/07 Switch Levaquin to meropenem Steroids Sputum culture Urine and blood cultures are pending May place central line Repeat labs in am Maintain aspiration precautions D/w D/w nursing Critically ill Thank you [id number] Patient seen and examined. Chart reviewed in detail. Case discussed with ORDER DEPARTMENT SUPERVISOR. Agree with above plan. ALEXA ZARAGOZA APRN October 07, 2018 17:05 BECCA BALLESTEROS MD October 07, 2018 22:11
[2018-10-07] MEDS: INSULIN LISPRO 300 UNITS/3 ML INSULN.PEN. SQ SCH (17:28)
[2018-10-07] MEDS: MEROPENEM 500 MG in IV NORMAL SALINE 50ML 50 ML IV SCH ×2 (18:14→21:52)
[2018-10-07 18:27] LABS: INFLUENZA A PATIENT NEGATIVE (NEGATIVE); INFLUENZA B PATIENT NEGATIVE (NEGATIVE)
--- NOTE | 2018-10-07 18:38 | RAD ---
AP portable chest radiograph 10/07/2018 Clinical History: Central line placement. Two AP semi erect portable digital radiographs of the chest were obtained. Comparison study is dated earlier today at 1136 hours. An ET tube and NG tube are again seen, unchanged. The tip of the ET tube is better visualized on these radiographs. The tip of the ET tube extends to overlie the trachea 3 cm below the level of clavicles. A right internal jugular central venous catheter has been placed. The tip of this catheter extends to overlie the superior vena cava. The cardiac silhouette is borderline enlarged. The thoracic aorta is mildly tortuous. Slight improvement in the patchy left lower lobe subsegmental atelectasis and/or infiltrate is seen. No pleural effusion or pneumothorax is noted. The osseous structures are unchanged. Impression: Interval placement of a right internal jugular central venous catheter. The tip of this catheter extends to overlie the superior vena cava. No pneumothorax is seen. Electronically signed by: Ben Dainelson MD (10/07/2018 6:35 PM) [facility]
[2018-10-07] MEDS: methylPREDNISolone SOD SUCC PF 40 MG/ML VIAL. IV SCH (21:52)
[2018-10-08] VITALS (24 sets, daily range): BP systolic 93–184; BP diastolic 43–78
[2018-10-08] MEDS: INSULIN LISPRO 300 UNITS/3 ML INSULN.PEN. SQ SCH ×4 (06:00→18:00)
[2018-10-08] MEDS: MEROPENEM 500 MG in IV NORMAL SALINE 50ML 50 ML IV SCH ×3 (06:00→21:33)
[2018-10-08] MEDS: IV NORMAL SALINE 1000ML BAG 1,000 ML IV SCH ×2 (06:08→15:09)
[2018-10-08] MEDS: methylPREDNISolone SOD SUCC PF 40 MG/ML VIAL. IV SCH ×3 (06:08→21:33)
[2018-10-08] MEDS: HEPARIN for SUB-Q USE 5,000 UNIT/ML VIAL. SQ SCH ×3 (06:17→21:35)
--- NOTE | 2018-10-08 06:27 | CONS ---
DATE OF CONSULTATION: 10/07/2018 ATTENDING PHYSICIAN: Dr. Pritchard. REASON FOR CONSULTATION: The patient seen in pulmonary consultation at the request of Dr. Pritchard for vent management. HISTORY OF PRESENT ILLNESS: The patient is a 78-year-old with what sounds like severe COPD, chronic respiratory failure, normally on oxygen supplementation at home. He has been on oxygen for quite some time, 3 liters at rest, 5 with exertion. He normally sees a photography teacher at [facility]. According to his , he has not had any acute exacerbations of COPD recently. He has not been hospitalized for COPD exacerbation in the last 5-7 years. He quit tobacco 4 years ago. He was doing well. Family members have had some upper respiratory tract infection. The patient became ill in the last 24 hours. He was found unresponsive, but had some breathing. He never lost his pulse. He was intubated in the Emergency Department and initial blood gas revealed a pH of 7.23, PaCO2 of 76, paO2 of 477. The patient also had labs performed revealing no leukocytosis. Potassium level was elevated. He was started on Levaquin and Solu-Medrol in the Emergency Department. EKG revealed no significant changes. Chest x-ray was reviewed. There was a left lower lobe infiltrate or atelectasis. PAST MEDICAL HISTORY: Remarkable for chronic respiratory failure, COPD, tobacco dependence, in remission. PAST SURGICAL HISTORY: He has had previous Orthopedic Surgery that was the last time he was admitted. ALLERGIES: LISTED TO PENICILLIN AND ERYTHROMYCIN. SOCIAL HISTORY: He quit tobacco. Lives with his . FAMILY HISTORY: No family history of lung disorders. REVIEW OF SYSTEMS: Unobtainable secondary to the patient's condition. PHYSICAL EXAMINATION: VITAL SIGNS: The patient was afebrile, currently on assist control rate of 22, tidal volume of 500, 40% FiO2, 5 of PEEP. GENERAL: He is hypotensive. He is receiving IV fluids. He has received a total of 2 liters of normal saline. I did bolus him with additional liter. He is also on norepinephrine. He is sedated with 2 mg of Versed. HEENT: Eyes, the sclerae were nonicteric. NECK: Jugular venous distention was not elevated. No lymphadenopathy. CHEST: Anteriorly with poor airway flow. He did have a barrel chest. CARDIOVASCULAR: Distant heart sounds with S1, S2, no S3. ABDOMEN: Soft, nondistended. EXTREMITIES: No significant edema or cyanosis. NEUROLOGIC: The patient was sedated. LABORATORY DATA: As described above. Chest x-ray was obtained and reviewed. UA revealed too numerous to count rbc's. He did have 20-40 wbc's, leukocyte esterase was positive. Toxicology screen was positive for benzodiazepines. IMPRESSION: 1. 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 2. Acute exacerbation of chronic obstructive pulmonary disease. 3. Abnormal x-ray compatible with pneumonia, left lower lobe. 4. Gram-negative, possible gram-positive pneumonia. 5. No history given of diabetes, hypertension or renal failure. 6. History of alcohol intake, discontinued approximately 4 years ago. 7. Possible sepsis. PLAN: 1. We will continue current support. Repeat arterial blood gas. 2. Empiric antibiotics. 3. Steroids. 4. Breathing treatments. 5. Bolus IV fluids. 6. Norepinephrine for mean arterial pressure above 65. 7. DVT and GI prophylaxis. 8. Start enteral feeding. The above was discussed with the at the bedside. Apparently, the patient had no intubation advanced directive. For now, we will continue current aggressive care, addressed no intubation status in the next 2-3 days. I do appreciate the privilege in sharing this patient's care. Total cumulative critical care time of 40 minutes. KRISTI DOMINGUEZ MD DR: SHAWNA/brianne JOB#: [id number] / [id number]
[2018-10-08 06:34] LABS: CALCIUM 7.8 mg/dL (8.5-10.1); CREATININE 1.8 mg/dL (0.7-1.3); GFR 36.9; POTASSIUM 5.1 mmol/L (3.5-5.1)
[2018-10-08] MEDS: IPRATRPIUM/ALBUTEROL 0.5/2.5MG 3 ML NEBU. NEB SCH ×4 (06:59→19:30)
[2018-10-08 07:34] LABS: BASO % 0 % (0-3); EOS % 0 % (0-3); HEMATOCRIT 36.6 % (39.0-53.0); HEMOGLOBIN 11.3 g/dL (13.0-17.5); LYMPH # 0.8 x10^3/uL (1.0-4.8); LYMPH % 5 % (24-48); MEAN CORPUSCULAR HEMOGLOBIN 28 pg (25-35); MEAN CORPUSCULAR HGB CONC 31 g/dL (31-37); MEAN CORPUSCULAR VOLUME 92 fL (79-100); MONO # 0.7 x10^3/uL (0.0-1.1); MONO % 4 % (0-9); NEUT # 14.9 x10^3uL (1.8-7.7); NEUT % 91 % (31-73); PLATELET COUNT 120 x10^3/uL (140-400); RED CELL DISTRIBUTION WIDTH 15.2 % (11.5-14.5); WHITE BLOOD COUNT 16.3 x10^3/uL (4.0-11.0)
[2018-10-08 07:51] LABS: BASE EXCESS ABG 2 mmol/L (-3-3); HCO3 ABG 29 mmol/L (21-28); PCO2 ABG 56 mmHg (35-46); PO2 ABG 65 mmHg (65-108); SAT O2 ABG 92 % (92-99)
[2018-10-08 07:53] LABS: FIO2 ABG 35
--- NOTE | 2018-10-08 08:06 | RAD ---
AP portable chest radiograph 10/08/2018 Clinical History: Respiratory failure. An AP erect portable digital radiograph of the chest was obtained. Comparison study is dated 10/07/2018. The right internal jugular central venous catheter, ET tube and NG tube are unchanged in position. The cardiac silhouette is normal in size. The thoracic aorta is mildly tortuous. Atherosclerotic calcification thoracic aorta is seen. No acute pulmonary infiltrate is noted. No pneumothorax or pleural effusion is seen. The osseous structures are unchanged. Impression: No acute pulmonary infiltrate is seen. Electronically signed by: Ben Danielson MD (10/08/2018 8:02 AM) [facility]
[2018-10-08] MEDS: LACTOBACILLUS RHAMNOSUS GG 1 CAPSULE. PO SCH ×2 (08:10→21:00)
[2018-10-08] MEDS: PANTOPRAZOLE IV PUSH 40 MG VIAL. IVP SCH (08:25)
[2018-10-08] MEDS: ACETAMINOPHEN 650 MG/20.3 ML SOLUTION. PEG PRN (08:25)
--- NOTE | 2018-10-08 10:56 | PDOC ---
Infectious Disease Note Subjective Subjective Remains sedated and intubated, FiO2 35% BP stable, off pressors Running fevers Tmax 101 ROS ROS unobtainable Vital Sign Vital Signs Vital Signs Date Time Temp Pulse Resp B/P (MAP) Pulse Ox O2 Delivery O2 Flow Rate FiO2 10/08/18 09:00 76 22 122/65 (84) 96 Ventilator 10/08/18 08:00 101.2 101.2 Physical Exam PHYSICAL EXAM GENERAL: Sedated and intubated HENT: ETT, OGT LUNGS: Clear CV: S1 S2 regular ABD: Soft, BS present : Jeffers in place EXT: 2+ edema lower extremities, bilaterally. No cyanosis SKIN: warm without rash CT MRI TECHNOLOGIST: Sedated RIJ (10/07) clean Labs Lab Laboratory Tests Test 10/07/18 10:52 10/07/18 11:01 10/07/18 11:25 10/07/18 11:30 O2 Saturation 99 % (92-99) Arterial Blood pH 7.23 (7.35-7.45) Arterial Blood pCO2 at Patient Temp 76 mmHg (35-46) Arterial Blood pO2 at Patient Temp 477 mmHg (65-108) Arterial Blood HCO3 31 mmol/L (21-28) Arterial Blood Base Excess 1 mmol/L (-3-3) FiO2 100% Glucose (Fingerstick) 139 mg/dL (70-99) Bedside Troponin I 0.14 ng/ml (<0.08) Urine Collection Type U cath Urine Color Yellow Urine Clarity Hazy Urine pH 6.5 Urine Specific [place] 1.015 Urine Protein 30 mg/dL (NEG-TRACE) Urine Glucose (UA) Negative mg/dL (NEG) Urine Ketones (Stick) Negative mg/dL (NEG) Urine Blood Large (NEG) Urine Nitrite Positive (NEG) Urine Bilirubin Negative (NEG) Urine Urobilinogen Dipstick 0.2 mg/dL (0.2 mg/dL) Urine Leukocyte Esterase Moderate (NEG) Urine RBC Tntc /HPF (0-2) Urine WBC 20-40 /HPF (0-4) Urine Squamous Epithelial Cells Few /LPF Urine Bacteria Few /HPF (0-FEW) Urine Opiates Screen Neg (NEG) Urine Methadone Screen Neg (NEG) Urine Barbiturates Neg (NEG) Urine Phencyclidine Screen Neg (NEG) Urine Amphetamine/Methamphetamine Neg (NEG) Urine Benzodiazepines Screen Pos (NEG) Urine Cocaine Screen Neg (NEG) Urine Cannabinoids Screen Neg (NEG) Urine Ethyl Alcohol neg (NEG) White Blood Count 17.3 x10^3/uL (4.0-11.0) Red Blood Count 4.74 x10^6/uL (4.30-5.70) Hemoglobin 13.8 g/dL (13.0-17.5) Hematocrit 44.3 % (39.0-53.0) Mean Corpuscular Volume 93 fL (79-100) Mean Corpuscular Hemoglobin 29 pg (25-35) Mean Corpuscular Hemoglobin Concent 31 g/dL (31-37) Red Cell Distribution Width 15.2 % (11.5-14.5) Platelet Count 150 x10^3/uL (140-400) Neutrophils (%) (Auto) 91 % (31-73) Lymphocytes (%) (Auto) 3 % (24-48) Monocytes (%) (Auto) 6 % (0-9) Eosinophils (%) (Auto) 0 % (0-3) Basophils (%) (Auto) 0 % (0-3) Neutrophils # (Auto) 15.7 x10^3uL (1.8-7.7) Lymphocytes # (Auto) 0.5 x10^3/uL (1.0-4.8) Monocytes # (Auto) 1.0 x10^3/uL (0.0-1.1) Eosinophils # (Auto) 0.0 x10^3/uL (0.0-0.7) Basophils # (Auto) 0.0 x10^3/uL (0.0-0.2) Segmented Neutrophils % 60 % (35-66) Band Neutrophils % 26 % (0-9) Lymphocytes % 7 % (24-48) Monocytes % 5 % (0-10) Basophils % 2 % (0-3) Toxic Vacuolation Slight Platelet Estimate Adequate (ADEQUATE) Giant Platelets Occ Prothrombin Time 14.1 SEC (11.7-14.0) Prothromb Time International Ratio 1.1 (0.8-1.1) D-Dimer (Traci) 2.91 ug/mlFEU (0.00-0.50) Sodium Level 140 mmol/L (136-145) Potassium Level 7.3 mmol/L (3.5-5.1) Chloride Level 100 mmol/L (98-107) Carbon Dioxide Level 32 mmol/L (21-32) Anion Gap 8 (6-14) Blood Urea Nitrogen 22 mg/dL (8-26) Creatinine 2.1 mg/dL (0.7-1.3) Estimated GFR (Cockcroft-Gault) 30.9 BUN/Creatinine Ratio 10 (6-20) Glucose Level 145 mg/dL (70-99) Lactic Acid Level 3.1 mmol/L (0.4-2.0) Calcium Level 8.7 mg/dL (8.5-10.1) Magnesium Level 1.8 mg/dL (1.8-2.4) Total Bilirubin 2.0 mg/dL (0.2-1.0) Aspartate Amino Transf (AST/SGOT) 47 U/L (15-37) Alanine Aminotransferase (ALT/SGPT) 55 U/L (16-63) Alkaline Phosphatase 89 U/L (46-116) Ammonia 28 mcmol/L (11-34) Creatine Kinase 262 U/L (39-308) Troponin I Quantitative 0.226 ng/mL (0.000-0.055) QJ-Qqc-L-Type Natriuretic Peptide 1041 pg/mL (0-449) Total Protein 7.3 g/dL (6.4-8.2) Albumin 3.9 g/dL (3.4-5.0) Albumin/Globulin Ratio 1.1 (1.0-1.7) Lipase 45 U/L (73-393) Test 10/07/18 14:31 10/07/18 17:19 10/07/18 17:20 10/07/18 17:50 Glucose (Fingerstick) 168 mg/dL (70-99) 159 mg/dL (70-99) Potassium Level 4.8 mmol/L (3.5-5.1) Lactic Acid Level 1.6 mmol/L (0.4-2.0) Troponin I Quantitative 0.837 ng/mL (0.000-0.055) Influenza Type A Antigen Negative (NEGATIVE) Influenza Type B Antigen Negative (NEGATIVE) Test 10/08/18 00:08 10/08/18 06:10 10/08/18 06:14 10/08/18 07:40 Glucose (Fingerstick) 155 mg/dL (70-99) 149 mg/dL (70-99) White Blood Count 16.3 x10^3/uL (4.0-11.0) Red Blood Count 4.00 x10^6/uL (4.30-5.70) Hemoglobin 11.3 g/dL (13.0-17.5) Hematocrit 36.6 % (39.0-53.0) Mean Corpuscular Volume 92 fL (79-100) Mean Corpuscular Hemoglobin 28 pg (25-35) Mean Corpuscular Hemoglobin Concent 31 g/dL (31-37) Red Cell Distribution Width 15.2 % (11.5-14.5) Platelet Count 120 x10^3/uL (140-400) Neutrophils (%) (Auto) 91 % (31-73) Lymphocytes (%) (Auto) 5 % (24-48) Monocytes (%) (Auto) 4 % (0-9) Eosinophils (%) (Auto) 0 % (0-3) Basophils (%) (Auto) 0 % (0-3) Neutrophils # (Auto) 14.9 x10^3uL (1.8-7.7) Lymphocytes # (Auto) 0.8 x10^3/uL (1.0-4.8) Monocytes # (Auto) 0.7 x10^3/uL (0.0-1.1) Eosinophils # (Auto) 0.0 x10^3/uL (0.0-0.7) Basophils # (Auto) 0.0 x10^3/uL (0.0-0.2) Sodium Level 140 mmol/L (136-145) Potassium Level 5.1 mmol/L (3.5-5.1) Chloride Level 106 mmol/L (98-107) Carbon Dioxide Level 26 mmol/L (21-32) Anion Gap 8 (6-14) Blood Urea Nitrogen 29 mg/dL (8-26) Creatinine 1.8 mg/dL (0.7-1.3) Estimated GFR (Cockcroft-Gault) 36.9 Glucose Level 164 mg/dL (70-99) Lactic Acid Level 1.0 mmol/L (0.4-2.0) Calcium Level 7.8 mg/dL (8.5-10.1) Troponin I Quantitative 0.625 ng/mL (0.000-0.055) O2 Saturation 92 % (92-99) Arterial Blood pH 7.33 (7.35-7.45) Arterial Blood pCO2 at Patient Temp 56 mmHg (35-46) Arterial Blood pO2 at Patient Temp 65 mmHg (65-108) Arterial Blood HCO3 29 mmol/L (21-28) Arterial Blood Base Excess 2 mmol/L (-3-3) FiO2 35 CXR No acute pulmonary infiltrate is seen. Objective Assessment Fever Pneumonia UTI, POA Lactic acidosis Allergy PCN w/ hives and throat swelling; erythromycin w/ hives. Leukocytosis Hypotension, now off Levophed gtt Acute encephalopathy Acute respiratory failure ALEX COPD, O2 dependent Plan Plan of Care Continue meropenem and add Zyvox One time dose vancomycin, 10/07 Levaquin,10/07 Steroids Probiotics Pancultures pending Serologies pending Repeat labs in am Maintain aspiration precautions Critically ill Patient seen and examined. Chart reviewed in detail. Case discussed with PIPE CAULKER. Agree with above plan. ALEXA ZARAGOZA APRN October 08, 2018 10:56 BECCA BALLESTEROS MD October 08, 2018 18:42
[2018-10-08 10:59] LABS: BASE EXCESS ABG 0 mmol/L (-3-3); HCO3 ABG 28 mmol/L (21-28); PO2 ABG 69 mmHg (65-108); SAT O2 ABG 91 % (92-99)
[2018-10-08 11:02] LABS: FIO2 ABG 35 cpap trial; PCO2 ABG 63 mmHg (35-46)
--- NOTE | 2018-10-08 11:02 | CONS ---
DATE OF CONSULTATION: 10/08/2018 REASON FOR CONSULTATION: Elevated troponin. HISTORY OF PRESENT ILLNESS: The patient is a 78-year-old man who presented to the ER yesterday approximately around 1:00 in the setting of being found down. He apparently has a history of COPD and lives with his family and apparently was last seen in his recliner around 2:00 a.m. and found unresponsive without his oxygen. He had hypoxia with O2 levels of 70% upon EMS arrival and was brought to the ER emergently. Upon arrival to the ER, he was unresponsive and was intubated. In speaking with the patient's at bedside today, she denies any new recent changes, but does endorse that the whole family has been sick with some sort of viral syndrome and fevers, but the patient apparently has not had any recent complaints. At baseline, the patient is mostly limited due to his COPD and prior stroke. Denied any recent angina, orthopnea, PND, but did have significant lower extremity edema for which he has been trying to keep his feet elevated. PAST MEDICAL HISTORY: 1. COPD. 2. CVA. 3. Prior tobacco abuse. SOCIAL HISTORY: No alcohol, tobacco or illicit drug use. He used to be a remote smoker. PAST SURGICAL HISTORY: No significant issue. FAMILY HISTORY: Noncontributory. ALLERGIES: PENICILLINS and ERYTHROMYCIN. CURRENT CARDIOVASCULAR MEDICATIONS: None. REVIEW OF SYSTEMS: As noted above in HPI. PHYSICAL EXAMINATION: VITAL SIGNS: Febrile to 101.2, heart rate 77, respiratory rate 22, blood pressure 144/62, 97% on ventilator. GENERAL: He is sedated, but responds to simple commands. Fluid balance is positive for approximately 5.3 liters. HEAD AND NECK: Unremarkable. CARDIAC: Regular rate and rhythm without any obvious murmurs, rubs or gallops. LUNGS: Notable for bilateral decreased breath sounds, but no obvious wheezing. ABDOMEN: Soft, nontender, nondistended. EXTREMITIES: 2+ pedal edema. NEUROLOGIC: No focal deficits, but the patient is sedated. MUSCULOSKELETAL: No obvious trauma. DIAGNOSTIC STUDIES: Hemoglobin 11.3, platelets 120. Creatinine 1.8, down from 2.1. Troponin peaked at 0.837, down to 0.625. A chest x-ray demonstrates no acute pulmonary infiltrate. ABG notable for hypercapnia, improved after intubation, most recently at 7.33/56/65/29, 35% FiO2. Head CT is unremarkable for any acute pathology. EKG does not demonstrate any acute ST or T-wave changes. IMPRESSION: 1. Acute hypercapnic respiratory failure in the setting of chronic obstructive pulmonary disease and likely sepsis syndrome with fever and recent exposure to sick contacts. 2. Elevated troponin, likely type 2 non-ST elevation myocardial infarction. 3. Acute kidney injury, unknown baseline. 4. Prior cerebrovascular accident. RECOMMENDATIONS: We will obtain an echocardiogram to ensure that he does not have any significant pulmonary hypertension and evaluate his LV systolic function. Continue aggressive pulmonary toilet. No acute need for anticoagulation for the elevated troponin, which is likely stress-induced. Consider outpatient ischemic evaluation. Thank you for this consultation. ROXANN MORALES MD DR: DENISHA/nts JOB#: [id number] / [id number]
--- NOTE | 2018-10-08 11:32 | PDOC ---
PULMONARY PROGRESS NOTES Subjective PT ON AC SEDATED Vitals Vital Signs Date Time Temp Pulse Resp B/P (MAP) Pulse Ox O2 Delivery O2 Flow Rate FiO2 10/08/18 11:00 73 35 105/50 (68) 97 Ventilator 10/08/18 08:00 101.2 101.2 General: Alert Lungs: Clear Cardiovascular: S1, S2 Abdomen: Soft Extremities: No Edema Skin: Warm Labs Laboratory Tests Test 10/07/18 10:52 10/07/18 11:01 10/07/18 11:25 10/07/18 11:30 O2 Saturation 99 % (92-99) Arterial Blood pH 7.23 (7.35-7.45) Arterial Blood pCO2 at Patient Temp 76 mmHg (35-46) Arterial Blood pO2 at Patient Temp 477 mmHg (65-108) Arterial Blood HCO3 31 mmol/L (21-28) Arterial Blood Base Excess 1 mmol/L (-3-3) FiO2 100% Glucose (Fingerstick) 139 mg/dL (70-99) Bedside Troponin I 0.14 ng/ml (<0.08) Urine Collection Type U cath Urine Color Yellow Urine Clarity Hazy Urine pH 6.5 Urine Specific [place] 1.015 Urine Protein 30 mg/dL (NEG-TRACE) Urine Glucose (UA) Negative mg/dL (NEG) Urine Ketones (Stick) Negative mg/dL (NEG) Urine Blood Large (NEG) Urine Nitrite Positive (NEG) Urine Bilirubin Negative (NEG) Urine Urobilinogen Dipstick 0.2 mg/dL (0.2 mg/dL) Urine Leukocyte Esterase Moderate (NEG) Urine RBC Tntc /HPF (0-2) Urine WBC 20-40 /HPF (0-4) Urine Squamous Epithelial Cells Few /LPF Urine Bacteria Few /HPF (0-FEW) Urine Opiates Screen Neg (NEG) Urine Methadone Screen Neg (NEG) Urine Barbiturates Neg (NEG) Urine Phencyclidine Screen Neg (NEG) Urine Amphetamine/Methamphetamine Neg (NEG) Urine Benzodiazepines Screen Pos (NEG) Urine Cocaine Screen Neg (NEG) Urine Cannabinoids Screen Neg (NEG) Urine Ethyl Alcohol neg (NEG) White Blood Count 17.3 x10^3/uL (4.0-11.0) Red Blood Count 4.74 x10^6/uL (4.30-5.70) Hemoglobin 13.8 g/dL (13.0-17.5) Hematocrit 44.3 % (39.0-53.0) Mean Corpuscular Volume 93 fL (79-100) Mean Corpuscular Hemoglobin 29 pg (25-35) Mean Corpuscular Hemoglobin Concent 31 g/dL (31-37) Red Cell Distribution Width 15.2 % (11.5-14.5) Platelet Count 150 x10^3/uL (140-400) Neutrophils (%) (Auto) 91 % (31-73) Lymphocytes (%) (Auto) 3 % (24-48) Monocytes (%) (Auto) 6 % (0-9) Eosinophils (%) (Auto) 0 % (0-3) Basophils (%) (Auto) 0 % (0-3) Neutrophils # (Auto) 15.7 x10^3uL (1.8-7.7) Lymphocytes # (Auto) 0.5 x10^3/uL (1.0-4.8) Monocytes # (Auto) 1.0 x10^3/uL (0.0-1.1) Eosinophils # (Auto) 0.0 x10^3/uL (0.0-0.7) Basophils # (Auto) 0.0 x10^3/uL (0.0-0.2) Segmented Neutrophils % 60 % (35-66) Band Neutrophils % 26 % (0-9) Lymphocytes % 7 % (24-48) Monocytes % 5 % (0-10) Basophils % 2 % (0-3) Toxic Vacuolation Slight Platelet Estimate Adequate (ADEQUATE) Giant Platelets Occ Prothrombin Time 14.1 SEC (11.7-14.0) Prothromb Time International Ratio 1.1 (0.8-1.1) D-Dimer (Traci) 2.91 ug/mlFEU (0.00-0.50) Sodium Level 140 mmol/L (136-145) Potassium Level 7.3 mmol/L (3.5-5.1) Chloride Level 100 mmol/L (98-107) Carbon Dioxide Level 32 mmol/L (21-32) Anion Gap 8 (6-14) Blood Urea Nitrogen 22 mg/dL (8-26) Creatinine 2.1 mg/dL (0.7-1.3) Estimated GFR (Cockcroft-Gault) 30.9 BUN/Creatinine Ratio 10 (6-20) Glucose Level 145 mg/dL (70-99) Lactic Acid Level 3.1 mmol/L (0.4-2.0) Calcium Level 8.7 mg/dL (8.5-10.1) Magnesium Level 1.8 mg/dL (1.8-2.4) Total Bilirubin 2.0 mg/dL (0.2-1.0) Aspartate Amino Transf (AST/SGOT) 47 U/L (15-37) Alanine Aminotransferase (ALT/SGPT) 55 U/L (16-63) Alkaline Phosphatase 89 U/L (46-116) Ammonia 28 mcmol/L (11-34) Creatine Kinase 262 U/L (39-308) Troponin I Quantitative 0.226 ng/mL (0.000-0.055) UW-Coe-S-Type Natriuretic Peptide 1041 pg/mL (0-449) Total Protein 7.3 g/dL (6.4-8.2) Albumin 3.9 g/dL (3.4-5.0) Albumin/Globulin Ratio 1.1 (1.0-1.7) Lipase 45 U/L (73-393) Test 10/07/18 14:31 10/07/18 17:19 10/07/18 17:20 10/07/18 17:50 Glucose (Fingerstick) 168 mg/dL (70-99) 159 mg/dL (70-99) Potassium Level 4.8 mmol/L (3.5-5.1) Lactic Acid Level 1.6 mmol/L (0.4-2.0) Troponin I Quantitative 0.837 ng/mL (0.000-0.055) Influenza Type A Antigen Negative (NEGATIVE) Influenza Type B Antigen Negative (NEGATIVE) Test 10/08/18 00:08 10/08/18 06:10 10/08/18 06:14 10/08/18 07:40 Glucose (Fingerstick) 155 mg/dL (70-99) 149 mg/dL (70-99) White Blood Count 16.3 x10^3/uL (4.0-11.0) Red Blood Count 4.00 x10^6/uL (4.30-5.70) Hemoglobin 11.3 g/dL (13.0-17.5) Hematocrit 36.6 % (39.0-53.0) Mean Corpuscular Volume 92 fL (79-100) Mean Corpuscular Hemoglobin 28 pg (25-35) Mean Corpuscular Hemoglobin Concent 31 g/dL (31-37) Red Cell Distribution Width 15.2 % (11.5-14.5) Platelet Count 120 x10^3/uL (140-400) Neutrophils (%) (Auto) 91 % (31-73) Lymphocytes (%) (Auto) 5 % (24-48) Monocytes (%) (Auto) 4 % (0-9) Eosinophils (%) (Auto) 0 % (0-3) Basophils (%) (Auto) 0 % (0-3) Neutrophils # (Auto) 14.9 x10^3uL (1.8-7.7) Lymphocytes # (Auto) 0.8 x10^3/uL (1.0-4.8) Monocytes # (Auto) 0.7 x10^3/uL (0.0-1.1) Eosinophils # (Auto) 0.0 x10^3/uL (0.0-0.7) Basophils # (Auto) 0.0 x10^3/uL (0.0-0.2) Sodium Level 140 mmol/L (136-145) Potassium Level 5.1 mmol/L (3.5-5.1) Chloride Level 106 mmol/L (98-107) Carbon Dioxide Level 26 mmol/L (21-32) Anion Gap 8 (6-14) Blood Urea Nitrogen 29 mg/dL (8-26) Creatinine 1.8 mg/dL (0.7-1.3) Estimated GFR (Cockcroft-Gault) 36.9 Glucose Level 164 mg/dL (70-99) Lactic Acid Level 1.0 mmol/L (0.4-2.0) Calcium Level 7.8 mg/dL (8.5-10.1) Troponin I Quantitative 0.625 ng/mL (0.000-0.055) O2 Saturation 92 % (92-99) Arterial Blood pH 7.33 (7.35-7.45) Arterial Blood pCO2 at Patient Temp 56 mmHg (35-46) Arterial Blood pO2 at Patient Temp 65 mmHg (65-108) Arterial Blood HCO3 29 mmol/L (21-28) Arterial Blood Base Excess 2 mmol/L (-3-3) FiO2 35 Test 10/08/18 10:50 O2 Saturation 91 % (92-99) Arterial Blood pH 7.27 (7.35-7.45) Arterial Blood pCO2 at Patient Temp 63 mmHg (35-46) Arterial Blood pO2 at Patient Temp 69 mmHg (65-108) Arterial Blood HCO3 28 mmol/L (21-28) Arterial Blood Base Excess 0 mmol/L (-3-3) FiO2 35 cpap trial Laboratory Tests Test 10/07/18 11:30 10/07/18 14:31 10/07/18 17:19 10/07/18 17:20 White Blood Count 17.3 x10^3/uL (4.0-11.0) Red Blood Count 4.74 x10^6/uL (4.30-5.70) Hemoglobin 13.8 g/dL (13.0-17.5) Hematocrit 44.3 % (39.0-53.0) Mean Corpuscular Volume 93 fL (79-100) Mean Corpuscular Hemoglobin 29 pg (25-35) Mean Corpuscular Hemoglobin Concent 31 g/dL (31-37) Red Cell Distribution Width 15.2 % (11.5-14.5) Platelet Count 150 x10^3/uL (140-400) Neutrophils (%) (Auto) 91 % (31-73) Lymphocytes (%) (Auto) 3 % (24-48) Monocytes (%) (Auto) 6 % (0-9) Eosinophils (%) (Auto) 0 % (0-3) Basophils (%) (Auto) 0 % (0-3) Neutrophils # (Auto) 15.7 x10^3uL (1.8-7.7) Lymphocytes # (Auto) 0.5 x10^3/uL (1.0-4.8) Monocytes # (Auto) 1.0 x10^3/uL (0.0-1.1) Eosinophils # (Auto) 0.0 x10^3/uL (0.0-0.7) Basophils # (Auto) 0.0 x10^3/uL (0.0-0.2) Segmented Neutrophils % 60 % (35-66) Band Neutrophils % 26 % (0-9) Lymphocytes % 7 % (24-48) Monocytes % 5 % (0-10) Basophils % 2 % (0-3) Toxic Vacuolation Slight Platelet Estimate Adequate (ADEQUATE) Giant Platelets Occ Prothrombin Time 14.1 SEC (11.7-14.0) Prothromb Time International Ratio 1.1 (0.8-1.1) D-Dimer (Traci) 2.91 ug/mlFEU (0.00-0.50) Sodium Level 140 mmol/L (136-145) Potassium Level 7.3 mmol/L (3.5-5.1) 4.8 mmol/L (3.5-5.1) Chloride Level 100 mmol/L (98-107) Carbon Dioxide Level 32 mmol/L (21-32) Anion Gap 8 (6-14) Blood Urea Nitrogen 22 mg/dL (8-26) Creatinine 2.1 mg/dL (0.7-1.3) Estimated GFR (Cockcroft-Gault) 30.9 BUN/Creatinine Ratio 10 (6-20) Glucose Level 145 mg/dL (70-99) Lactic Acid Level 3.1 mmol/L (0.4-2.0) 1.6 mmol/L (0.4-2.0) Calcium Level 8.7 mg/dL (8.5-10.1) Magnesium Level 1.8 mg/dL (1.8-2.4) Total Bilirubin 2.0 mg/dL (0.2-1.0) Aspartate Amino Transf (AST/SGOT) 47 U/L (15-37) Alanine Aminotransferase (ALT/SGPT) 55 U/L (16-63) Alkaline Phosphatase 89 U/L (46-116) Ammonia 28 mcmol/L (11-34) Creatine Kinase 262 U/L (39-308) Troponin I Quantitative 0.226 ng/mL (0.000-0.055) 0.837 ng/mL (0.000-0.055) QA-Azz-K-Type Natriuretic Peptide 1041 pg/mL (0-449) Total Protein 7.3 g/dL (6.4-8.2) Albumin 3.9 g/dL (3.4-5.0) Albumin/Globulin Ratio 1.1 (1.0-1.7) Lipase 45 U/L (73-393) Glucose (Fingerstick) 168 mg/dL (70-99) 159 mg/dL (70-99) Test 10/07/18 17:50 10/08/18 00:08 10/08/18 06:10 10/08/18 06:14 Influenza Type A Antigen Negative (NEGATIVE) Influenza Type B Antigen Negative (NEGATIVE) Glucose (Fingerstick) 155 mg/dL (70-99) 149 mg/dL (70-99) White Blood Count 16.3 x10^3/uL (4.0-11.0) Red Blood Count 4.00 x10^6/uL (4.30-5.70) Hemoglobin 11.3 g/dL (13.0-17.5) Hematocrit 36.6 % (39.0-53.0) Mean Corpuscular Volume 92 fL (79-100) Mean Corpuscular Hemoglobin 28 pg (25-35) Mean Corpuscular Hemoglobin Concent 31 g/dL (31-37) Red Cell Distribution Width 15.2 % (11.5-14.5) Platelet Count 120 x10^3/uL (140-400) Neutrophils (%) (Auto) 91 % (31-73) Lymphocytes (%) (Auto) 5 % (24-48) Monocytes (%) (Auto) 4 % (0-9) Eosinophils (%) (Auto) 0 % (0-3) Basophils (%) (Auto) 0 % (0-3) Neutrophils # (Auto) 14.9 x10^3uL (1.8-7.7) Lymphocytes # (Auto) 0.8 x10^3/uL (1.0-4.8) Monocytes # (Auto) 0.7 x10^3/uL (0.0-1.1) Eosinophils # (Auto) 0.0 x10^3/uL (0.0-0.7) Basophils # (Auto) 0.0 x10^3/uL (0.0-0.2) Sodium Level 140 mmol/L (136-145) Potassium Level 5.1 mmol/L (3.5-5.1) Chloride Level 106 mmol/L (98-107) Carbon Dioxide Level 26 mmol/L (21-32) Anion Gap 8 (6-14) Blood Urea Nitrogen 29 mg/dL (8-26) Creatinine 1.8 mg/dL (0.7-1.3) Estimated GFR (Cockcroft-Gault) 36.9 Glucose Level 164 mg/dL (70-99) Lactic Acid Level 1.0 mmol/L (0.4-2.0) Calcium Level 7.8 mg/dL (8.5-10.1) Troponin I Quantitative 0.625 ng/mL (0.000-0.055) Test 10/08/18 07:40 10/08/18 10:50 O2 Saturation 92 % (92-99) 91 % (92-99) Arterial Blood pH 7.33 (7.35-7.45) 7.27 (7.35-7.45) Arterial Blood pCO2 at Patient Temp 56 mmHg (35-46) 63 mmHg (35-46) Arterial Blood pO2 at Patient Temp 65 mmHg (65-108) 69 mmHg (65-108) Arterial Blood HCO3 29 mmol/L (21-28) 28 mmol/L (21-28) Arterial Blood Base Excess 2 mmol/L (-3-3) 0 mmol/L (-3-3) FiO2 35 35 cpap trial Medications Active Scripts Medications Dose Route/Sig Max Daily Dose Days Date Category Proair Hfa (Albuterol Sulfate) 8.5 Gm Hfa.aer.ad 1 Puff INH PRN Q6HRS PRN 10/07/18 Reported Oxazepam 30 Mg Capsule 30 Mg PO QHS 10/07/18 Reported Impression . 1. 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 2. Acute exacerbation of chronic obstructive pulmonary disease. 3. Abnormal x-ray compatible with pneumonia, left lower lobe. 4. Gram-negative, possible gram-positive pneumonia. 5. No history given of diabetes, hypertension or renal failure. 6. History of alcohol intake, discontinued approximately 4 years ago. 7. Possible sepsis. Plan . ABG NOTED IMPROVING WILL CHECK TRIAL IN AM D/W STEROIDS DVT GI PROPH ENTERAL FEEDING KRISTI DOMINGUEZ MD October 08, 2018 11:32
--- NOTE | 2018-10-08 13:21 | PDOC1 ---
History and Physical Date of Admission: Date of Admission DATE: 10/08/18 TIME: 13:17 Chief Complaint: Problems: (1) Hyperkalemia (2) Urinary tract infection (3) CHF (congestive heart failure) (4) Renal insufficiency (5) Sepsis (6) Acute respiratory distress (7) Elevated liver function tests (8) CAP (community acquired pneumonia) (9) Unresponsiveness (10) Elevated troponin I level Chief Complain: Mental status change unresponsive History of Present Illness: HPI: This is an elderly male well-known to my service he has end-stage COPD Basically he was seen late last night in his chair sleeping and was fine This morning they couldn't wake him up They called 911 He was desat into the 70s He was brought to the ER where he was intubated Appears he has Hypercapnic respiratory failure and clinical pneumonia He also has a UTI I discussed the case with ER physician we've admitted the patient consult and pulmonary Patient currently examined in the ICU for he is critically ill and his is present Past Medical/Surgical History: PMH/PSH: COPD noncompliance prior tobacco abuse chronic renal insufficiency CHF previous UTIs Allergies: Allergies: Coded Allergies: Penicillins (Verified Allergy, Intermediate, 10/07/18) erythromycin base (Verified Allergy, Intermediate, 10/07/18) Family History: Family History: Coronary disease Social History: Social Hisoty: He quit smoking he doesn't drink or take 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 Current Medications: Current Medications Current Medications Sodium Chloride 1,000 ml @ 1,000 mls/hr Q1H IV Last administered on 10/07/18at 11:27; Start 10/07/18 at 10:52; Stop 10/07/18 at 11:51; Status DC Midazolam HCl 100 ml @ 1 mls/hr 1X ONCE IV Last administered on 10/07/18at 11:20; Start 10/07/18 at 11:15; Stop 10/11/18 at 15:14 Etomidate (Amidate) 20 mg STK-MED ONCE IV ; Start 10/07/18 at 11:13; Stop 10/07/18 at 11:14; Status DC Succinylcholine Chloride (Anectine) 200 mg STK-MED ONCE .ROUTE ; Start 10/07/18 at 11:13; Stop 10/07/18 at 11:14; Status DC Etomidate (Amidate) 20 mg 1X ONCE IV Last administered on 10/07/18at 11:01; Start 10/07/18 at 11:30; Stop 10/07/18 at 11:33; Status DC Succinylcholine Chloride (Anectine) 100 mg 1X ONCE IV Last administered on 10/07/18at 11:01; Start 10/07/18 at 11:30; Stop 10/07/18 at 11:33; Status DC Albuterol Sulfate (Ventolin Neb Soln) 10 mg 1X ONCE CONT NEB ; Start 10/07/18 at 12:00; Stop 10/07/18 at 12:01; Status DC Methylprednisolone Sodium Succinate (SOLU-Medrol 125MG VIAL) 125 mg 1X ONCE IV Last administered on 10/07/18at 11:52; Start 10/07/18 at 12:00; Stop 10/07/18 at 12:01; Status DC Vancomycin HCl 250 ml @ 250 mls/hr 1X ONCE IV Last administered on 10/07/18at 12:27; Start 10/07/18 at 12:00; Stop 10/07/18 at 12:59; Status DC Levofloxacin/ Dextrose 150 ml @ 100 mls/hr 1X ONCE IV Last administered on 10/07/18at 12:28; Start 10/07/18 at 12:00; Stop 10/07/18 at 13:29; Status DC Sodium Chloride 1,000 ml @ 1,000 mls/hr 1X ONCE IV Last administered on 10/07/18at 12:57; Start 10/07/18 at 12:45; Stop 10/07/18 at 13:44; Status DC Sodium Chloride 1,000 ml @ 1,000 mls/hr 1X ONCE IV Last administered on 10/07/18at 12:58; Start 10/07/18 at 12:45; Stop 10/07/18 at 13:44; Status DC Dextrose (Dextrose 50%-Water Syringe) 25 gm 1X ONCE IV Last administered on 10/07/18at 12:59; Start 10/07/18 at 12:45; Stop 10/07/18 at 12:46; Status DC Insulin Human Regular (HumuLIN R VIAL) 10 unit 1X ONCE IV Last administered on 10/07/18at 13:00; Start 10/07/18 at 12:45; Stop 10/07/18 at 12:46; Status DC Sodium Bicarbonate (Sodium Bicarb Adult 8.4% Syr) 50 meq 1X ONCE IV Last administered on 10/07/18at 13:07; Start 10/07/18 at 12:45; Stop 10/07/18 at 12:46; Status DC Sodium Chloride 1,000 ml @ 100 mls/hr Q10H IV ; Start 10/07/18 at 16:00; Stop 10/07/18 at 16:00; Status DC Pantoprazole Sodium (PROTONIX VIAL for IV PUSH) 40 mg DAILYAC IVP Last administered on 10/08/18at 08:25; Start 10/07/18 at 13:30; Stop 10/08/18 at 09:54; Status DC Pantoprazole Sodium (PROTONIX VIAL for IV PUSH) 40 mg 1X ONCE IVP ; Start 10/07/18 at 12:45; Stop 10/07/18 at 12:46; Status UNV Heparin Sodium (Porcine) (Heparin Sodium) 5,000 unit Q8HRS SQ Last administered on 10/08/18at 06:17; Start 10/07/18 at 14:00 Levofloxacin/ Dextrose (Levaquin Per Pharmacy) 1 each PRN DAILY PRN MC SEE COMMENTS; Start 10/07/18 at 12:45; Stop 10/08/18 at 07:33; Status DC Insulin Human Lispro (HumaLOG) 0-9 UNITS TIDWMEALS SQ ; Start 10/07/18 at 17:00; Stop 10/07/18 at 17:00; Status DC Dextrose (Dextrose 50%-Water Syringe) 12.5 gm PRN Q15MIN PRN IV SEE COMMENTS; Start 10/07/18 at 12:45 Albuterol/ Ipratropium (Duoneb) 3 ml RTQID NEB ; Start 10/07/18 at 16:00; Status Cancel Methylprednisolone Sodium Succinate (SOLU-Medrol 40MG VIAL) 40 mg Q8HRS IV Last administered on 10/08/18at 06:08; Start 10/07/18 at 22:00 Acetaminophen (Tylenol) 650 mg PRN Q6HRS PRN PEG MILD PAIN / TEMP Last administered on 10/08/18at 08:25; Start 10/07/18 at 12:45 Morphine Sulfate (Morphine Sulfate) 2 mg PRN Q2HR PRN IV PAIN; Start 10/07/18 at 12:45 Ondansetron HCl (Zofran) 4 mg PRN Q6HRS PRN IV NAUSEA/VOMITING; Start 10/07/18 at 12:45 Norepinephrine Bitartrate 250 ml @ 1.875 mls/ hr CONT PRN IV SEE I/O RECORD Last administered on 10/07/18at 14:01; Start 10/07/18 at 14:00 Sodium Chloride 1,000 ml @ 150 mls/hr Q6H40M IV Last administered on 10/08/18at 06:08; Start 10/07/18 at 14:00; Stop 10/08/18 at 13:59 Calcium Gluconate (Calcium Gluconate) 1,000 mg 1X ONCE IVP ; Start 10/07/18 at 13:30; Stop 10/07/18 at 13:31; Status Cancel Sodium Polystyrene Sulfonate (Kayexalate) 15 gm 1X ONCE PO Last administered on 10/07/18at 14:10; Start 10/07/18 at 13:30; Stop 10/07/18 at 13:31; Status DC Pantoprazole Sodium (PROTONIX VIAL for IV PUSH) 40 mg STK-MED ONCE IVP ; Start 10/07/18 at 12:52; Stop 10/07/18 at 12:55; Status DC Levofloxacin/ Dextrose 150 ml @ 100 mls/hr Q48H IV ; Start 10/09/18 at 12:00; Stop 10/09/18 at 12:00; Status DC Calcium Gluconate 1000 mg/Sodium Chloride 110 ml @ 220 mls/hr 1X ONCE IV Last administered on 10/07/18at 14:23; Start 10/07/18 at 15:00; Stop 10/07/18 at 15:29; Status DC Sodium Chloride 1,000 ml @ 1,000 mls/hr 1X ONCE IV Last administered on 10/07/18at 14:50; Start 10/07/18 at 15:00; Stop 10/07/18 at 15:59; Status DC Sodium Chloride 1,000 ml @ 999 mls/hr 1X ONCE IV ; Start 10/07/18 at 15:00; Stop 10/07/18 at 16:00; Status DC Albuterol Sulfate (Ventolin Neb Soln) 2.5 mg PRN Q2HR PRN NEB DYSPNEA; Start 10/07/18 at 15:00 Albuterol/ Ipratropium (Duoneb) 3 ml RTQID NEB Last administered on 10/08/18at 11:32; Start 10/07/18 at 16:00 Insulin Human Lispro (HumaLOG) 0-9 UNITS Q6HRS SQ ; Start 10/07/18 at 18:00 Meropenem 500 mg/ Sodium Chloride 50 ml @ 100 mls/hr Q8HRS IV Last administered on 10/08/18at 06:00; Start 10/07/18 at 17:00 Midazolam HCl 100 ml @ 5 mls/hr CONT PRN IV SEE I/O RECORD; Start 10/08/18 at 04:15 Lactobacillus Rhamnosus (Culturelle) 1 cap BID PO ; Start 10/08/18 at 09:00 Famotidine (Pepcid Vial) 20 mg QHS IVP ; Start 10/08/18 at 21:00 Linezolid/Dextrose 300 ml @ 300 mls/hr Q12HR IV Last administered on 10/08/18at 11:06; Start 10/08/18 at 11:30 Active Scripts Active Reported Proair Hfa (Albuterol Sulfate) 8.5 Gm Hfa.aer.ad 1 Puff INH PRN Q6HRS PRN Oxazepam 30 Mg Capsule 30 Mg PO QHS ROS: Review of Systems Unable to obtain the patient is intubated Physical Exam: Vital Signs: Vital Signs Date Time Temp Pulse Resp B/P (MAP) Pulse Ox O2 Delivery O2 Flow Rate FiO2 10/08/18 11:32 99 Ventilator 10/08/18 11:00 73 35 105/50 (68) 10/08/18 08:00 101.2 101.2 Physcial Exam: GEN.: Sedated on the vent. HEENT: Head is normocephalic, atraumatic NECK: Supple, no JVD LUNGS: Decreased breath sounds with crackles HEART: RRR, S1, S2 present. Peripheral pulses intact ABDOMEN: Obese and distended EXTREMITIES: Without any cyanosis, clubbing, or edema. Pedal pulses intact NEUROLOGIC: Sedated PSYCHIATRIC: Unable to obtain at this time SKIN: No ulcerations or rashes VASCULAR: Slow capillary refill Labs: Labs: Laboratory Tests Test 10/07/18 10:52 10/07/18 11:01 10/07/18 11:25 10/07/18 11:30 O2 Saturation 99 % (92-99) Arterial Blood pH 7.23 (7.35-7.45) Arterial Blood pCO2 at Patient Temp 76 mmHg (35-46) Arterial Blood pO2 at Patient Temp 477 mmHg (65-108) Arterial Blood HCO3 31 mmol/L (21-28) Arterial Blood Base Excess 1 mmol/L (-3-3) FiO2 100% Glucose (Fingerstick) 139 mg/dL (70-99) Bedside Troponin I 0.14 ng/ml (<0.08) Urine Collection Type U cath Urine Color Yellow Urine Clarity Hazy Urine pH 6.5 Urine Specific [place] 1.015 Urine Protein 30 mg/dL (NEG-TRACE) Urine Glucose (UA) Negative mg/dL (NEG) Urine Ketones (Stick) Negative mg/dL (NEG) Urine Blood Large (NEG) Urine Nitrite Positive (NEG) Urine Bilirubin Negative (NEG) Urine Urobilinogen Dipstick 0.2 mg/dL (0.2 mg/dL) Urine Leukocyte Esterase Moderate (NEG) Urine RBC Tntc /HPF (0-2) Urine WBC 20-40 /HPF (0-4) Urine Squamous Epithelial Cells Few /LPF Urine Bacteria Few /HPF (0-FEW) Urine Opiates Screen Neg (NEG) Urine Methadone Screen Neg (NEG) Urine Barbiturates Neg (NEG) Urine Phencyclidine Screen Neg (NEG) Urine Amphetamine/Methamphetamine Neg (NEG) Urine Benzodiazepines Screen Pos (NEG) Urine Cocaine Screen Neg (NEG) Urine Cannabinoids Screen Neg (NEG) Urine Ethyl Alcohol neg (NEG) White Blood Count 17.3 x10^3/uL (4.0-11.0) Red Blood Count 4.74 x10^6/uL (4.30-5.70) Hemoglobin 13.8 g/dL (13.0-17.5) Hematocrit 44.3 % (39.0-53.0) Mean Corpuscular Volume 93 fL (79-100) Mean Corpuscular Hemoglobin 29 pg (25-35) Mean Corpuscular Hemoglobin Concent 31 g/dL (31-37) Red Cell Distribution Width 15.2 % (11.5-14.5) Platelet Count 150 x10^3/uL (140-400) Neutrophils (%) (Auto) 91 % (31-73) Lymphocytes (%) (Auto) 3 % (24-48) Monocytes (%) (Auto) 6 % (0-9) Eosinophils (%) (Auto) 0 % (0-3) Basophils (%) (Auto) 0 % (0-3) Neutrophils # (Auto) 15.7 x10^3uL (1.8-7.7) Lymphocytes # (Auto) 0.5 x10^3/uL (1.0-4.8) Monocytes # (Auto) 1.0 x10^3/uL (0.0-1.1) Eosinophils # (Auto) 0.0 x10^3/uL (0.0-0.7) Basophils # (Auto) 0.0 x10^3/uL (0.0-0.2) Segmented Neutrophils % 60 % (35-66) Band Neutrophils % 26 % (0-9) Lymphocytes % 7 % (24-48) Monocytes % 5 % (0-10) Basophils % 2 % (0-3) Toxic Vacuolation Slight Platelet Estimate Adequate (ADEQUATE) Giant Platelets Occ Prothrombin Time 14.1 SEC (11.7-14.0) Prothromb Time International Ratio 1.1 (0.8-1.1) D-Dimer (Traci) 2.91 ug/mlFEU (0.00-0.50) Sodium Level 140 mmol/L (136-145) Potassium Level 7.3 mmol/L (3.5-5.1) Chloride Level 100 mmol/L (98-107) Carbon Dioxide Level 32 mmol/L (21-32) Anion Gap 8 (6-14) Blood Urea Nitrogen 22 mg/dL (8-26) Creatinine 2.1 mg/dL (0.7-1.3) Estimated GFR (Cockcroft-Gault) 30.9 BUN/Creatinine Ratio 10 (6-20) Glucose Level 145 mg/dL (70-99) Lactic Acid Level 3.1 mmol/L (0.4-2.0) Calcium Level 8.7 mg/dL (8.5-10.1) Magnesium Level 1.8 mg/dL (1.8-2.4) Total Bilirubin 2.0 mg/dL (0.2-1.0) Aspartate Amino Transf (AST/SGOT) 47 U/L (15-37) Alanine Aminotransferase (ALT/SGPT) 55 U/L (16-63) Alkaline Phosphatase 89 U/L (46-116) Ammonia 28 mcmol/L (11-34) Creatine Kinase 262 U/L (39-308) Troponin I Quantitative 0.226 ng/mL (0.000-0.055) XG-Ibg-O-Type Natriuretic Peptide 1041 pg/mL (0-449) Total Protein 7.3 g/dL (6.4-8.2) Albumin 3.9 g/dL (3.4-5.0) Albumin/Globulin Ratio 1.1 (1.0-1.7) Lipase 45 U/L (73-393) Test 10/07/18 14:31 10/07/18 17:19 10/07/18 17:20 10/07/18 17:50 Glucose (Fingerstick) 168 mg/dL (70-99) 159 mg/dL (70-99) Potassium Level 4.8 mmol/L (3.5-5.1) Lactic Acid Level 1.6 mmol/L (0.4-2.0) Troponin I Quantitative 0.837 ng/mL (0.000-0.055) Influenza Type A Antigen Negative (NEGATIVE) Influenza Type B Antigen Negative (NEGATIVE) Test 10/08/18 00:08 10/08/18 06:10 10/08/18 06:14 10/08/18 07:40 Glucose (Fingerstick) 155 mg/dL (70-99) 149 mg/dL (70-99) White Blood Count 16.3 x10^3/uL (4.0-11.0) Red Blood Count 4.00 x10^6/uL (4.30-5.70) Hemoglobin 11.3 g/dL (13.0-17.5) Hematocrit 36.6 % (39.0-53.0) Mean Corpuscular Volume 92 fL (79-100) Mean Corpuscular Hemoglobin 28 pg (25-35) Mean Corpuscular Hemoglobin Concent 31 g/dL (31-37) Red Cell Distribution Width 15.2 % (11.5-14.5) Platelet Count 120 x10^3/uL (140-400) Neutrophils (%) (Auto) 91 % (31-73) Lymphocytes (%) (Auto) 5 % (24-48) Monocytes (%) (Auto) 4 % (0-9) Eosinophils (%) (Auto) 0 % (0-3) Basophils (%) (Auto) 0 % (0-3) Neutrophils # (Auto) 14.9 x10^3uL (1.8-7.7) Lymphocytes # (Auto) 0.8 x10^3/uL (1.0-4.8) Monocytes # (Auto) 0.7 x10^3/uL (0.0-1.1) Eosinophils # (Auto) 0.0 x10^3/uL (0.0-0.7) Basophils # (Auto) 0.0 x10^3/uL (0.0-0.2) Sodium Level 140 mmol/L (136-145) Potassium Level 5.1 mmol/L (3.5-5.1) Chloride Level 106 mmol/L (98-107) Carbon Dioxide Level 26 mmol/L (21-32) Anion Gap 8 (6-14) Blood Urea Nitrogen 29 mg/dL (8-26) Creatinine 1.8 mg/dL (0.7-1.3) Estimated GFR (Cockcroft-Gault) 36.9 Glucose Level 164 mg/dL (70-99) Lactic Acid Level 1.0 mmol/L (0.4-2.0) Calcium Level 7.8 mg/dL (8.5-10.1) Troponin I Quantitative 0.625 ng/mL (0.000-0.055) O2 Saturation 92 % (92-99) Arterial Blood pH 7.33 (7.35-7.45) Arterial Blood pCO2 at Patient Temp 56 mmHg (35-46) Arterial Blood pO2 at Patient Temp 65 mmHg (65-108) Arterial Blood HCO3 29 mmol/L (21-28) Arterial Blood Base Excess 2 mmol/L (-3-3) FiO2 35 Test 5/05/17 10:50 O2 Saturation 91 % (92-99) Arterial Blood pH 7.27 (7.35-7.45) Arterial Blood pCO2 at Patient Temp 63 mmHg (35-46) Arterial Blood pO2 at Patient Temp 69 mmHg (65-108) Arterial Blood HCO3 28 mmol/L (21-28) Arterial Blood Base Excess 0 mmol/L (-3-3) FiO2 35 cpap trial Laboratory Tests Test 10/07/18 14:31 10/07/18 17:19 10/07/18 17:20 10/07/18 17:50 Glucose (Fingerstick) 168 mg/dL (70-99) 159 mg/dL (70-99) Potassium Level 4.8 mmol/L (3.5-5.1) Lactic Acid Level 1.6 mmol/L (0.4-2.0) Troponin I Quantitative 0.837 ng/mL (0.000-0.055) Influenza Type A Antigen Negative (NEGATIVE) Influenza Type B Antigen Negative (NEGATIVE) Test 10/08/18 00:08 10/08/18 06:10 10/08/18 06:14 10/08/18 07:40 Glucose (Fingerstick) 155 mg/dL (70-99) 149 mg/dL (70-99) White Blood Count 16.3 x10^3/uL (4.0-11.0) Red Blood Count 4.00 x10^6/uL (4.30-5.70) Hemoglobin 11.3 g/dL (13.0-17.5) Hematocrit 36.6 % (39.0-53.0) Mean Corpuscular Volume 92 fL (79-100) Mean Corpuscular Hemoglobin 28 pg (25-35) Mean Corpuscular Hemoglobin Concent 31 g/dL (31-37) Red Cell Distribution Width 15.2 % (11.5-14.5) Platelet Count 120 x10^3/uL (140-400) Neutrophils (%) (Auto) 91 % (31-73) Lymphocytes (%) (Auto) 5 % (24-48) Monocytes (%) (Auto) 4 % (0-9) Eosinophils (%) (Auto) 0 % (0-3) Basophils (%) (Auto) 0 % (0-3) Neutrophils # (Auto) 14.9 x10^3uL (1.8-7.7) Lymphocytes # (Auto) 0.8 x10^3/uL (1.0-4.8) Monocytes # (Auto) 0.7 x10^3/uL (0.0-1.1) Eosinophils # (Auto) 0.0 x10^3/uL (0.0-0.7) Basophils # (Auto) 0.0 x10^3/uL (0.0-0.2) Sodium Level 140 mmol/L (136-145) Potassium Level 5.1 mmol/L (3.5-5.1) Chloride Level 106 mmol/L (98-107) Carbon Dioxide Level 26 mmol/L (21-32) Anion Gap 8 (6-14) Blood Urea Nitrogen 29 mg/dL (8-26) Creatinine 1.8 mg/dL (0.7-1.3) Estimated GFR (Cockcroft-Gault) 36.9 Glucose Level 164 mg/dL (70-99) Lactic Acid Level 1.0 mmol/L (0.4-2.0) Calcium Level 7.8 mg/dL (8.5-10.1) Troponin I Quantitative 0.625 ng/mL (0.000-0.055) O2 Saturation 92 % (92-99) Arterial Blood pH 7.33 (7.35-7.45) Arterial Blood pCO2 at Patient Temp 56 mmHg (35-46) Arterial Blood pO2 at Patient Temp 65 mmHg (65-108) Arterial Blood HCO3 29 mmol/L (21-28) Arterial Blood Base Excess 2 mmol/L (-3-3) FiO2 35 Test /05/17 10:50 O2 Saturation 91 % (92-99) Arterial Blood pH 7.27 (7.35-7.45) Arterial Blood pCO2 at Patient Temp 63 mmHg (35-46) Arterial Blood pO2 at Patient Temp 69 mmHg (65-108) Arterial Blood HCO3 28 mmol/L (21-28) Arterial Blood Base Excess 0 mmol/L (-3-3) FiO2 35 cpap trial Images: Images Chest x-ray was surprisingly negative Assessment/Plan Assessment/Plan Fulminant respiratory failure End-stage COPD Clinical pneumonia Possible sepsis Noncompliance Plan ICU monitoring Mechanical ventilation IV antibiotics DuoNeb's Consult pulmonary DVT prophylaxis Full code Frequent labs Prognosis guarded Total time 31 minutes RAJIV PEREZ III DO October 08, 2018 13:21
[2018-10-08 13:33] LABS: MYCOPLASMA PATIENT POSITIVE (NEGATIVE)
--- NOTE | 2018-10-08 15:13 | CONS ---
DATE OF CONSULTATION: 10/07/2018 REFERRING PHYSICIAN: Dr. Pritchard for sepsis. HISTORY OF PRESENT ILLNESS: This patient is a 78-year-old male with a history of COPD, oxygen dependent at home, who according to his , had not been feeling very well over the last few days. He has been having difficulty breathing, catching his breath, coughing more than usual and having to use his inhaler more often. Several family members including herself had been sick with cold symptoms and fever. This morning, he was brought to the ER after he was found unresponsive. He was intubated in the ER and sedated. He is hypotensive, requiring Levophed 10 mcg. His WBC count 17,300, segs 60%, bands 26%, lactic acid 3.1. He is in acute renal failure with a creatinine of 2.1, BUN 22, potassium 7.3. A chest x-ray showed patchy left lower lobe subsegmental atelectasis and/or infiltrate. No pneumothorax or pleural effusion seen. He was dosed with vancomycin, levofloxacin and Solu-Medrol. PAST MEDICAL HISTORY: COPD, oxygen dependent on 3-5 liters at home. History of CVA. Diabetes, diet controlled. PAST SURGICAL HISTORY: Cholecystectomy, right hip surgery. FAMILY HISTORY: Heart disease, cancer. ALLERGIES: PENICILLIN CAUSING HIVES AND THROAT SWELLING. ERYTHROMYCIN CAUSING HIVES. MEDICATIONS: Onetime dose of vancomycin. Levofloxacin. Methylprednisolone. DuoNeb. Other medications are available and have been reviewed on the JUL. REVIEW OF SYSTEMS: The patient is intubated and sedated. However, he is responding to some questions with a nod. He denies pain or upset stomach. PHYSICAL EXAMINATION: VITAL SIGNS: Temperature is 98.9, blood pressure 107/70, heart rate 86, respiratory rate 22, pulse oximetry is 100% on FiO2 40% via ventilator. GENERAL: The patient is propped up in bed, sedated and intubated. He opens his eyes to voice. HEENT: Pupils equally round, reactive. Normal conjunctivae. OGT and ETT in place. NECK: Supple. LUNGS: Diminished aeration. HEART: S1 and S2 irregular. ABDOMEN: Nondistended, soft and nontender. EXTREMITIES: 1-2+ edema in lower extremities bilaterally. No cyanosis. SKIN: Warm without rash. NEUROLOGIC: Sedated, but nods appropriately to a few questions and opens his eyes to voice. Peripheral IV looks okay. LABORATORY DATA: WBC 17.3, hemoglobin 13.8, platelets 150,000, segs 60%, bands 26%. Sodium 140, potassium 7.3, creatinine 2.1, BUN 22, lactic acid 3.1, AST 47, ALT 55, creatinine kinase 262, troponin 0.226, BNP 1041, albumin 1.1, lipase 45. Urine toxicology positive for benzodiazepines. Urinalysis shows wbc's 20-40, moderate leukocyte esterase, positive nitrite with few squamous epithelial and bacteria. Urine and blood cultures pending. Chest x-ray per HPI. Head CT showed no acute intracranial abnormality. IMPRESSION: 1. Pneumonia. 2. Urinary tract infection present on admission. 3. Lactic acidosis. 4. PENICILLIN ALLERGY, CAUSING HIVES AND THROAT SWELLING; ERYTHROMYCIN WITH HIVES. 5. Leukocytosis. 6. Hypotension, requiring pressor support. 7. Acute encephalopathy. 8. Acute respiratory failure. 9. Acute kidney injury. 10. Chronic obstructive pulmonary disease, oxygen dependent. PLAN: We will switch levofloxacin to meropenem. He already received a onetime dose of vancomycin in ER. We will add a sputum culture. Urine and blood cultures are pending. Nurse reports difficulty with lab draws. May place central line if needed. Repeat labs in the morning. Maintain aspiration precautions. Discussed with . We will also check a flu screen. Thank you, Dr. Pritchard, for asking us to participate in this patient's care. Should you have further questions or concerns, please call. BECCA BALLESTEROS MD DR: SHAQ/brianne JOB#: [id number] / [id number]
--- NOTE | 2018-10-08 17:27 | EKG ---
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
[2018-10-08] MEDS: FAMOTIDINE 20 MG/2 ML VIAL IVP SCH (21:34)
[2018-10-09] VITALS (24 sets, daily range): BP systolic 120–178; BP diastolic 50–82
[2018-10-09] MEDS: MORPHINE SULFATE 2 MG/ML VIAL. IV PRN (00:04)
[2018-10-09] MEDS: INSULIN LISPRO 300 UNITS/3 ML INSULN.PEN. SQ SCH ×5 (06:00→23:36)
[2018-10-09] MEDS: methylPREDNISolone SOD SUCC PF 40 MG/ML VIAL. IV SCH ×3 (06:07→22:54)
[2018-10-09] MEDS: MEROPENEM 500 MG in IV NORMAL SALINE 50ML 50 ML IV SCH ×3 (06:07→22:54)
[2018-10-09] MEDS: MIDAZOLAM 100mg/100ml NS BAG 100 ML IV PRN (06:07)
[2018-10-09] MEDS: HEPARIN for SUB-Q USE 5,000 UNIT/ML VIAL. SQ SCH ×3 (06:13→22:56)
[2018-10-09 06:21] LABS: BASO % 0 % (0-3); EOS % 0 % (0-3); HEMATOCRIT 34.1 % (39.0-53.0); HEMOGLOBIN 11.1 g/dL (13.0-17.5); LYMPH # 0.5 x10^3/uL (1.0-4.8); LYMPH % 4 % (24-48); MEAN CORPUSCULAR HEMOGLOBIN 29 pg (25-35); MEAN CORPUSCULAR HGB CONC 32 g/dL (31-37); MEAN CORPUSCULAR VOLUME 91 fL (79-100); MONO # 0.5 x10^3/uL (0.0-1.1); MONO % 5 % (0-9); NEUT % 91 % (31-73); PLATELET COUNT 121 x10^3/uL (140-400); RED BLOOD COUNT 3.77 x10^6/uL (4.30-5.70); RED CELL DISTRIBUTION WIDTH 15.6 % (11.5-14.5)
[2018-10-09 06:32] LABS: CALCIUM 7.5 mg/dL (8.5-10.1); CREATININE 1.5 mg/dL (0.7-1.3); GFR 45.5; POTASSIUM 4.6 mmol/L (3.5-5.1)
[2018-10-09] MEDS: IPRATRPIUM/ALBUTEROL 0.5/2.5MG 3 ML NEBU. NEB SCH ×4 (07:49→19:26)
--- NOTE | 2018-10-09 07:55 | EKG ---
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
[2018-10-09 08:07] LABS: BASE EXCESS ABG 0 mmol/L (-3-3); HCO3 ABG 27 mmol/L (21-28); PCO2 ABG 51 mmHg (35-46); PO2 ABG 89 mmHg (65-108); SAT O2 ABG 96 % (92-99)
[2018-10-09 08:18] LABS: FIO2 ABG 35
--- NOTE | 2018-10-09 08:34 | PDOC ---
PULMONARY PROGRESS NOTES Subjective PT ON AC SEDATED Vitals Vital Signs Date Time Temp Pulse Resp B/P (MAP) Pulse Ox O2 Delivery O2 Flow Rate FiO2 10/09/18 07:49 100 Ventilator 10/09/18 07:00 99.9 66 21 143/61 (88) 99.9 General: Alert Lungs: Clear Cardiovascular: S1, S2 Abdomen: Soft Extremities: No Edema Skin: Warm Labs Laboratory Tests Test 10/07/18 10:52 10/07/18 11:01 10/07/18 11:25 10/07/18 11:30 O2 Saturation 99 % (92-99) Arterial Blood pH 7.23 (7.35-7.45) Arterial Blood pCO2 at Patient Temp 76 mmHg (35-46) Arterial Blood pO2 at Patient Temp 477 mmHg (65-108) Arterial Blood HCO3 31 mmol/L (21-28) Arterial Blood Base Excess 1 mmol/L (-3-3) FiO2 100% Glucose (Fingerstick) 139 mg/dL (70-99) Bedside Troponin I 0.14 ng/ml (<0.08) Urine Collection Type U cath Urine Color Yellow Urine Clarity Hazy Urine pH 6.5 Urine Specific [place] 1.015 Urine Protein 30 mg/dL (NEG-TRACE) Urine Glucose (UA) Negative mg/dL (NEG) Urine Ketones (Stick) Negative mg/dL (NEG) Urine Blood Large (NEG) Urine Nitrite Positive (NEG) Urine Bilirubin Negative (NEG) Urine Urobilinogen Dipstick 0.2 mg/dL (0.2 mg/dL) Urine Leukocyte Esterase Moderate (NEG) Urine RBC Tntc /HPF (0-2) Urine WBC 20-40 /HPF (0-4) Urine Squamous Epithelial Cells Few /LPF Urine Bacteria Few /HPF (0-FEW) Urine Opiates Screen Neg (NEG) Urine Methadone Screen Neg (NEG) Urine Barbiturates Neg (NEG) Urine Phencyclidine Screen Neg (NEG) Urine Amphetamine/Methamphetamine Neg (NEG) Urine Benzodiazepines Screen Pos (NEG) Urine Cocaine Screen Neg (NEG) Urine Cannabinoids Screen Neg (NEG) Urine Ethyl Alcohol neg (NEG) White Blood Count 17.3 x10^3/uL (4.0-11.0) Red Blood Count 4.74 x10^6/uL (4.30-5.70) Hemoglobin 13.8 g/dL (13.0-17.5) Hematocrit 44.3 % (39.0-53.0) Mean Corpuscular Volume 93 fL (79-100) Mean Corpuscular Hemoglobin 29 pg (25-35) Mean Corpuscular Hemoglobin Concent 31 g/dL (31-37) Red Cell Distribution Width 15.2 % (11.5-14.5) Platelet Count 150 x10^3/uL (140-400) Neutrophils (%) (Auto) 91 % (31-73) Lymphocytes (%) (Auto) 3 % (24-48) Monocytes (%) (Auto) 6 % (0-9) Eosinophils (%) (Auto) 0 % (0-3) Basophils (%) (Auto) 0 % (0-3) Neutrophils # (Auto) 15.7 x10^3uL (1.8-7.7) Lymphocytes # (Auto) 0.5 x10^3/uL (1.0-4.8) Monocytes # (Auto) 1.0 x10^3/uL (0.0-1.1) Eosinophils # (Auto) 0.0 x10^3/uL (0.0-0.7) Basophils # (Auto) 0.0 x10^3/uL (0.0-0.2) Segmented Neutrophils % 60 % (35-66) Band Neutrophils % 26 % (0-9) Lymphocytes % 7 % (24-48) Monocytes % 5 % (0-10) Basophils % 2 % (0-3) Toxic Vacuolation Slight Platelet Estimate Adequate (ADEQUATE) Giant Platelets Occ Prothrombin Time 14.1 SEC (11.7-14.0) Prothromb Time International Ratio 1.1 (0.8-1.1) D-Dimer (Traci) 2.91 ug/mlFEU (0.00-0.50) Sodium Level 140 mmol/L (136-145) Potassium Level 7.3 mmol/L (3.5-5.1) Chloride Level 100 mmol/L (98-107) Carbon Dioxide Level 32 mmol/L (21-32) Anion Gap 8 (6-14) Blood Urea Nitrogen 22 mg/dL (8-26) Creatinine 2.1 mg/dL (0.7-1.3) Estimated GFR (Cockcroft-Gault) 30.9 BUN/Creatinine Ratio 10 (6-20) Glucose Level 145 mg/dL (70-99) Lactic Acid Level 3.1 mmol/L (0.4-2.0) Calcium Level 8.7 mg/dL (8.5-10.1) Magnesium Level 1.8 mg/dL (1.8-2.4) Total Bilirubin 2.0 mg/dL (0.2-1.0) Aspartate Amino Transf (AST/SGOT) 47 U/L (15-37) Alanine Aminotransferase (ALT/SGPT) 55 U/L (16-63) Alkaline Phosphatase 89 U/L (46-116) Ammonia 28 mcmol/L (11-34) Creatine Kinase 262 U/L (39-308) Troponin I Quantitative 0.226 ng/mL (0.000-0.055) KN-Mtw-F-Type Natriuretic Peptide 1041 pg/mL (0-449) Total Protein 7.3 g/dL (6.4-8.2) Albumin 3.9 g/dL (3.4-5.0) Albumin/Globulin Ratio 1.1 (1.0-1.7) Lipase 45 U/L (73-393) Test 10/07/18 14:31 10/07/18 17:19 10/07/18 17:20 10/07/18 17:50 Glucose (Fingerstick) 168 mg/dL (70-99) 159 mg/dL (70-99) Potassium Level 4.8 mmol/L (3.5-5.1) Lactic Acid Level 1.6 mmol/L (0.4-2.0) Troponin I Quantitative 0.837 ng/mL (0.000-0.055) Nasal Screen MRSA (PCR) Negative (Negative) Influenza Type A Antigen Negative (NEGATIVE) Influenza Type B Antigen Negative (NEGATIVE) Test 10/08/18 00:08 10/08/18 06:10 10/08/18 06:14 10/08/18 07:40 Glucose (Fingerstick) 155 mg/dL (70-99) 149 mg/dL (70-99) White Blood Count 16.3 x10^3/uL (4.0-11.0) Red Blood Count 4.00 x10^6/uL (4.30-5.70) Hemoglobin 11.3 g/dL (13.0-17.5) Hematocrit 36.6 % (39.0-53.0) Mean Corpuscular Volume 92 fL (79-100) Mean Corpuscular Hemoglobin 28 pg (25-35) Mean Corpuscular Hemoglobin Concent 31 g/dL (31-37) Red Cell Distribution Width 15.2 % (11.5-14.5) Platelet Count 120 x10^3/uL (140-400) Neutrophils (%) (Auto) 91 % (31-73) Lymphocytes (%) (Auto) 5 % (24-48) Monocytes (%) (Auto) 4 % (0-9) Eosinophils (%) (Auto) 0 % (0-3) Basophils (%) (Auto) 0 % (0-3) Neutrophils # (Auto) 14.9 x10^3uL (1.8-7.7) Lymphocytes # (Auto) 0.8 x10^3/uL (1.0-4.8) Monocytes # (Auto) 0.7 x10^3/uL (0.0-1.1) Eosinophils # (Auto) 0.0 x10^3/uL (0.0-0.7) Basophils # (Auto) 0.0 x10^3/uL (0.0-0.2) Sodium Level 140 mmol/L (136-145) Potassium Level 5.1 mmol/L (3.5-5.1) Chloride Level 106 mmol/L (98-107) Carbon Dioxide Level 26 mmol/L (21-32) Anion Gap 8 (6-14) Blood Urea Nitrogen 29 mg/dL (8-26) Creatinine 1.8 mg/dL (0.7-1.3) Estimated GFR (Cockcroft-Gault) 36.9 Glucose Level 164 mg/dL (70-99) Lactic Acid Level 1.0 mmol/L (0.4-2.0) Calcium Level 7.8 mg/dL (8.5-10.1) Troponin I Quantitative 0.625 ng/mL (0.000-0.055) Mycoplasma Serology (LAB) Positive (NEGATIVE) O2 Saturation 92 % (92-99) Arterial Blood pH 7.33 (7.35-7.45) Arterial Blood pCO2 at Patient Temp 56 mmHg (35-46) Arterial Blood pO2 at Patient Temp 65 mmHg (65-108) Arterial Blood HCO3 29 mmol/L (21-28) Arterial Blood Base Excess 2 mmol/L (-3-3) FiO2 35 Test 10/08/18 10:50 10/08/18 14:02 10/08/18 18:13 10/09/18 00:08 O2 Saturation 91 % (92-99) Arterial Blood pH 7.27 (7.35-7.45) Arterial Blood pCO2 at Patient Temp 63 mmHg (35-46) Arterial Blood pO2 at Patient Temp 69 mmHg (65-108) Arterial Blood HCO3 28 mmol/L (21-28) Arterial Blood Base Excess 0 mmol/L (-3-3) FiO2 35 cpap trial Glucose (Fingerstick) 187 mg/dL (70-99) 145 mg/dL (70-99) 184 mg/dL (70-99) Test 10/09/18 06:10 10/09/18 06:11 10/09/18 08:00 White Blood Count 12.0 x10^3/uL (4.0-11.0) Red Blood Count 3.77 x10^6/uL (4.30-5.70) Hemoglobin 11.1 g/dL (13.0-17.5) Hematocrit 34.1 % (39.0-53.0) Mean Corpuscular Volume 91 fL (79-100) Mean Corpuscular Hemoglobin 29 pg (25-35) Mean Corpuscular Hemoglobin Concent 32 g/dL (31-37) Red Cell Distribution Width 15.6 % (11.5-14.5) Platelet Count 121 x10^3/uL (140-400) Neutrophils (%) (Auto) 91 % (31-73) Lymphocytes (%) (Auto) 4 % (24-48) Monocytes (%) (Auto) 5 % (0-9) Eosinophils (%) (Auto) 0 % (0-3) Basophils (%) (Auto) 0 % (0-3) Neutrophils # (Auto) 11.0 x10^3uL (1.8-7.7) Lymphocytes # (Auto) 0.5 x10^3/uL (1.0-4.8) Monocytes # (Auto) 0.5 x10^3/uL (0.0-1.1) Eosinophils # (Auto) 0.0 x10^3/uL (0.0-0.7) Basophils # (Auto) 0.0 x10^3/uL (0.0-0.2) Sodium Level 139 mmol/L (136-145) Potassium Level 4.6 mmol/L (3.5-5.1) Chloride Level 106 mmol/L (98-107) Carbon Dioxide Level 26 mmol/L (21-32) Anion Gap 7 (6-14) Blood Urea Nitrogen 34 mg/dL (8-26) Creatinine 1.5 mg/dL (0.7-1.3) Estimated GFR (Cockcroft-Gault) 45.5 Glucose Level 199 mg/dL (70-99) Calcium Level 7.5 mg/dL (8.5-10.1) Glucose (Fingerstick) 170 mg/dL (70-99) O2 Saturation 96 % (92-99) Arterial Blood pH 7.34 (7.35-7.45) Arterial Blood pCO2 at Patient Temp 51 mmHg (35-46) Arterial Blood pO2 at Patient Temp 89 mmHg (65-108) Arterial Blood HCO3 27 mmol/L (21-28) Arterial Blood Base Excess 0 mmol/L (-3-3) FiO2 35 Laboratory Tests Test 10/08/18 10:50 10/08/18 14:02 10/08/18 18:13 10/09/18 00:08 O2 Saturation 91 % (92-99) Arterial Blood pH 7.27 (7.35-7.45) Arterial Blood pCO2 at Patient Temp 63 mmHg (35-46) Arterial Blood pO2 at Patient Temp 69 mmHg (65-108) Arterial Blood HCO3 28 mmol/L (21-28) Arterial Blood Base Excess 0 mmol/L (-3-3) FiO2 35 cpap trial Glucose (Fingerstick) 187 mg/dL (70-99) 145 mg/dL (70-99) 184 mg/dL (70-99) Test 10/09/18 06:10 10/09/18 06:11 10/09/18 08:00 White Blood Count 12.0 x10^3/uL (4.0-11.0) Red Blood Count 3.77 x10^6/uL (4.30-5.70) Hemoglobin 11.1 g/dL (13.0-17.5) Hematocrit 34.1 % (39.0-53.0) Mean Corpuscular Volume 91 fL (79-100) Mean Corpuscular Hemoglobin 29 pg (25-35) Mean Corpuscular Hemoglobin Concent 32 g/dL (31-37) Red Cell Distribution Width 15.6 % (11.5-14.5) Platelet Count 121 x10^3/uL (140-400) Neutrophils (%) (Auto) 91 % (31-73) Lymphocytes (%) (Auto) 4 % (24-48) Monocytes (%) (Auto) 5 % (0-9) Eosinophils (%) (Auto) 0 % (0-3) Basophils (%) (Auto) 0 % (0-3) Neutrophils # (Auto) 11.0 x10^3uL (1.8-7.7) Lymphocytes # (Auto) 0.5 x10^3/uL (1.0-4.8) Monocytes # (Auto) 0.5 x10^3/uL (0.0-1.1) Eosinophils # (Auto) 0.0 x10^3/uL (0.0-0.7) Basophils # (Auto) 0.0 x10^3/uL (0.0-0.2) Sodium Level 139 mmol/L (136-145) Potassium Level 4.6 mmol/L (3.5-5.1) Chloride Level 106 mmol/L (98-107) Carbon Dioxide Level 26 mmol/L (21-32) Anion Gap 7 (6-14) Blood Urea Nitrogen 34 mg/dL (8-26) Creatinine 1.5 mg/dL (0.7-1.3) Estimated GFR (Cockcroft-Gault) 45.5 Glucose Level 199 mg/dL (70-99) Calcium Level 7.5 mg/dL (8.5-10.1) Glucose (Fingerstick) 170 mg/dL (70-99) O2 Saturation 96 % (92-99) Arterial Blood pH 7.34 (7.35-7.45) Arterial Blood pCO2 at Patient Temp 51 mmHg (35-46) Arterial Blood pO2 at Patient Temp 89 mmHg (65-108) Arterial Blood HCO3 27 mmol/L (21-28) Arterial Blood Base Excess 0 mmol/L (-3-3) FiO2 35 Medications Active Scripts Medications Dose Route/Sig Max Daily Dose Days Date Category Proair Hfa (Albuterol Sulfate) 8.5 Gm Hfa.aer.ad 1 Puff INH PRN Q6HRS PRN 10/07/18 Reported Oxazepam 30 Mg Capsule 30 Mg PO QHS 10/07/18 Reported Impression . 1. 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 2. Acute exacerbation of chronic obstructive pulmonary disease. 3. Abnormal x-ray compatible with pneumonia, left lower lobe. 4. Gram-negative, possible gram-positive pneumonia. 5. No history given of diabetes, hypertension or renal failure. 6. History of alcohol intake, discontinued approximately 4 years ago. 7. Possible sepsis. 8. Positive mycoplasma serology IMPRESSION: 1. Diffuse interstitial changes, increased from prior study. Stimulated increasing interstitial edema or atypical pneumonia. 2. Left basilar consolidation with moderate size left pleural effusion, increased from prior study. Plan . NOT READY FOR TRIAL ABG NOTED CONTINUE ANTIBX PER ID FEVER PERSIST D/W STEROIDS DVT GI PROPH ENTERAL FEEDING KRISTI DOMINGUEZ MD October 09, 2018 08:34
[2018-10-09] MEDS: LACTOBACILLUS RHAMNOSUS GG 1 CAPSULE. PO SCH (09:00)
--- NOTE | 2018-10-09 09:03 | RAD ---
Single view chest dated 10/09/2018. Comparison made to 10/08/2018. Clinical data indication: Respiratory failure. FINDINGS: Single upright portable exam performed. Heart and mediastinal contours are stable. Endotracheal tube, nasogastric tube and right internal jugular catheter in place, unchanged. There is increasing interstitial changes throughout both lungs. Blunting of the costophrenic sulci with increasing consolidation at the left base. No pneumothorax. IMPRESSION: 1. Diffuse interstitial changes, increased from prior study. Stimulated increasing interstitial edema or atypical pneumonia. 2. Left basilar consolidation with moderate size left pleural effusion, increased from prior study. Electronically signed by: Esau Mares MD (10/09/2018 9:00 AM) [email or web address]
--- NOTE | 2018-10-09 10:07 | PDOC ---
Infectious Disease Note Subjective Subjective Remains sedated and intubated, FiO2 35% BP stable, off pressors Less fevers, Tmax 100.1 ROS ROS unobtainable Vital Sign Vital Signs Vital Signs Date Time Temp Pulse Resp B/P (MAP) Pulse Ox O2 Delivery O2 Flow Rate FiO2 10/09/18 09:56 100 Ventilator 10/09/18 09:00 62 21 151/64 (93) 10/09/18 07:00 99.9 99.9 Physical Exam PHYSICAL EXAM GENERAL: Sedated and intubated HENT: ETT, OGT LUNGS: Clear CV: S1 S2 regular ABD: Soft, BS present : Jeffers in place EXT: 2+ edema lower extremities, bilaterally. No cyanosis SKIN: warm without rash ATM SERVICER: Sedated RIJ (10/07) clean Labs Lab Laboratory Tests Test 10/08/18 10:50 10/08/18 14:02 10/08/18 18:13 10/09/18 00:08 O2 Saturation 91 % (92-99) Arterial Blood pH 7.27 (7.35-7.45) Arterial Blood pCO2 at Patient Temp 63 mmHg (35-46) Arterial Blood pO2 at Patient Temp 69 mmHg (65-108) Arterial Blood HCO3 28 mmol/L (21-28) Arterial Blood Base Excess 0 mmol/L (-3-3) FiO2 35 cpap trial Glucose (Fingerstick) 187 mg/dL (70-99) 145 mg/dL (70-99) 184 mg/dL (70-99) Test 10/09/18 06:10 10/09/18 06:11 10/09/18 08:00 White Blood Count 12.0 x10^3/uL (4.0-11.0) Red Blood Count 3.77 x10^6/uL (4.30-5.70) Hemoglobin 11.1 g/dL (13.0-17.5) Hematocrit 34.1 % (39.0-53.0) Mean Corpuscular Volume 91 fL (79-100) Mean Corpuscular Hemoglobin 29 pg (25-35) Mean Corpuscular Hemoglobin Concent 32 g/dL (31-37) Red Cell Distribution Width 15.6 % (11.5-14.5) Platelet Count 121 x10^3/uL (140-400) Neutrophils (%) (Auto) 91 % (31-73) Lymphocytes (%) (Auto) 4 % (24-48) Monocytes (%) (Auto) 5 % (0-9) Eosinophils (%) (Auto) 0 % (0-3) Basophils (%) (Auto) 0 % (0-3) Neutrophils # (Auto) 11.0 x10^3uL (1.8-7.7) Lymphocytes # (Auto) 0.5 x10^3/uL (1.0-4.8) Monocytes # (Auto) 0.5 x10^3/uL (0.0-1.1) Eosinophils # (Auto) 0.0 x10^3/uL (0.0-0.7) Basophils # (Auto) 0.0 x10^3/uL (0.0-0.2) Sodium Level 139 mmol/L (136-145) Potassium Level 4.6 mmol/L (3.5-5.1) Chloride Level 106 mmol/L (98-107) Carbon Dioxide Level 26 mmol/L (21-32) Anion Gap 7 (6-14) Blood Urea Nitrogen 34 mg/dL (8-26) Creatinine 1.5 mg/dL (0.7-1.3) Estimated GFR (Cockcroft-Gault) 45.5 Glucose Level 199 mg/dL (70-99) Calcium Level 7.5 mg/dL (8.5-10.1) Glucose (Fingerstick) 170 mg/dL (70-99) O2 Saturation 96 % (92-99) Arterial Blood pH 7.34 (7.35-7.45) Arterial Blood pCO2 at Patient Temp 51 mmHg (35-46) Arterial Blood pO2 at Patient Temp 89 mmHg (65-108) Arterial Blood HCO3 27 mmol/L (21-28) Arterial Blood Base Excess 0 mmol/L (-3-3) FiO2 35 Micro Microbiology 10/07/18 Blood Culture - Preliminary, Resulted NO GROWTH AFTER 1 DAY Objective Assessment Fever Pneumonia + mycoplasma UTI, POA UC pending Lactic acidosis Allergy PCN w/ hives and throat swelling; erythromycin w/ hives. 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 The chart was reviewed. The case was discussed. Agree with the plan of care. ALEXA ZARAGOZA APRN October 09, 2018 10:07 BELKYS SHEETS MD October 09, 2018 12:44
[2018-10-09 10:46] LABS: BASE EXCESS ABG 1 mmol/L (-3-3); HCO3 ABG 28 mmol/L (21-28); PCO2 ABG 59 mmHg (35-46); PO2 ABG 73 mmHg (65-108); SAT O2 ABG 93 % (92-99)
[2018-10-09 10:56] LABS: FIO2 ABG 35
--- NOTE | 2018-10-09 11:05 | NUR ---
SS following for discharge planning. SS reviewed pt chart. Pt is from home with spouse and is currently on the vent. Pt has oxygen set up at home. No discharge needs noted at this time. SS will continue to follow for discharge planning.
--- NOTE | 2018-10-09 11:33 | PDOC ---
[facility] PROGRESS NOTE Chief Complaint Chief Complaint Fulminant respiratory failure End-stage COPD Clinical pneumonia Possible sepsis Noncompliance History of Present Illness History of Present Illness Patient was seen and examined in the intensive care unit He is still on the vent but on spontaneous respirations with 35% FiO2 and 5 of pressure support Discussed with the RN and respiratory therapy Vitals Vitals Vital Signs Date Time Temp Pulse Resp B/P (MAP) Pulse Ox O2 Delivery O2 Flow Rate FiO2 10/09/18 09:56 100 Ventilator 10/09/18 09:00 62 21 151/64 (93) 10/09/18 07:00 99.9 99.9 Physical Exam Physical Exam GENERAL: Sedated and intubated HENT: ETT, OGT LUNGS: Clear CV: S1 S2 regular ABD: Soft, BS present : Jeffers in place EXT: 2+ edema lower extremities, bilaterally. 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 RIJ (10/07) clean General: No acute distress Lungs: Clear Abdomen: Normal bowel sounds, Soft, No tenderness, No hepatosplenomegaly, No masses Extremities: No clubbing, No cyanosis, No edema, Normal pulses, No tenderness/swelling Skin: No rashes, No breakdown, No significant lesion Labs LABS Laboratory Tests Test 10/08/18 14:02 10/08/18 18:13 10/09/18 00:08 10/09/18 06:10 Glucose (Fingerstick) 187 mg/dL (70-99) 145 mg/dL (70-99) 184 mg/dL (70-99) White Blood Count 12.0 x10^3/uL (4.0-11.0) Red Blood Count 3.77 x10^6/uL (4.30-5.70) Hemoglobin 11.1 g/dL (13.0-17.5) Hematocrit 34.1 % (39.0-53.0) Mean Corpuscular Volume 91 fL (79-100) Mean Corpuscular Hemoglobin 29 pg (25-35) Mean Corpuscular Hemoglobin Concent 32 g/dL (31-37) Red Cell Distribution Width 15.6 % (11.5-14.5) Platelet Count 121 x10^3/uL (140-400) Neutrophils (%) (Auto) 91 % (31-73) Lymphocytes (%) (Auto) 4 % (24-48) Monocytes (%) (Auto) 5 % (0-9) Eosinophils (%) (Auto) 0 % (0-3) Basophils (%) (Auto) 0 % (0-3) Neutrophils # (Auto) 11.0 x10^3uL (1.8-7.7) Lymphocytes # (Auto) 0.5 x10^3/uL (1.0-4.8) Monocytes # (Auto) 0.5 x10^3/uL (0.0-1.1) Eosinophils # (Auto) 0.0 x10^3/uL (0.0-0.7) Basophils # (Auto) 0.0 x10^3/uL (0.0-0.2) Sodium Level 139 mmol/L (136-145) Potassium Level 4.6 mmol/L (3.5-5.1) Chloride Level 106 mmol/L (98-107) Carbon Dioxide Level 26 mmol/L (21-32) Anion Gap 7 (6-14) Blood Urea Nitrogen 34 mg/dL (8-26) Creatinine 1.5 mg/dL (0.7-1.3) Estimated GFR (Cockcroft-Gault) 45.5 Glucose Level 199 mg/dL (70-99) Calcium Level 7.5 mg/dL (8.5-10.1) Test 10/09/18 06:11 10/09/18 08:00 10/09/18 10:27 Glucose (Fingerstick) 170 mg/dL (70-99) O2 Saturation 96 % (92-99) 93 % (92-99) Arterial Blood pH 7.34 (7.35-7.45) 7.30 (7.35-7.45) Arterial Blood pCO2 at Patient Temp 51 mmHg (35-46) 59 mmHg (35-46) Arterial Blood pO2 at Patient Temp 89 mmHg (65-108) 73 mmHg (65-108) Arterial Blood HCO3 27 mmol/L (21-28) 28 mmol/L (21-28) Arterial Blood Base Excess 0 mmol/L (-3-3) 1 mmol/L (-3-3) FiO2 35 35 Review of Systems Review of Systems Unable to obtain patient is intubated Assessment and Plan Assessmemt and Plan Problems Medical Problems: (1) Acute respiratory distress Status: Acute (2) CAP (community acquired pneumonia) Status: Acute (3) CHF (congestive heart failure) Status: Acute (4) Elevated liver function tests Status: Acute (5) Elevated troponin I level Status: Acute (6) Hyperkalemia Status: Acute (7) Renal insufficiency Status: Acute (8) Sepsis Status: Acute (9) Unresponsiveness Status: Acute (10) Urinary tract infection Status: Acute Fulminant respiratory failure End-stage COPD Clinical pneumonia Possible sepsis Noncompliance Plan ICU monitoring Vent weaning in progress IV antibiotics DuoNeb's Pulmonary following DVT prophylaxis Full code Frequent labs Prognosis guarded Total time 32 minutes Comment Review of Relevant I have reviewed the following items akbar (where applicable) has been applied. Labs Laboratory Tests Test 10/07/18 14:31 10/07/18 17:19 10/07/18 17:20 10/07/18 17:50 Glucose (Fingerstick) 168 mg/dL (70-99) 159 mg/dL (70-99) Potassium Level 4.8 mmol/L (3.5-5.1) Lactic Acid Level 1.6 mmol/L (0.4-2.0) Troponin I Quantitative 0.837 ng/mL (0.000-0.055) Nasal Screen MRSA (PCR) Negative (Negative) Influenza Type A Antigen Negative (NEGATIVE) Influenza Type B Antigen Negative (NEGATIVE) Test 10/08/18 00:08 10/08/18 06:10 10/08/18 06:14 10/08/18 07:40 Glucose (Fingerstick) 155 mg/dL (70-99) 149 mg/dL (70-99) White Blood Count 16.3 x10^3/uL (4.0-11.0) Red Blood Count 4.00 x10^6/uL (4.30-5.70) Hemoglobin 11.3 g/dL (13.0-17.5) Hematocrit 36.6 % (39.0-53.0) Mean Corpuscular Volume 92 fL (79-100) Mean Corpuscular Hemoglobin 28 pg (25-35) Mean Corpuscular Hemoglobin Concent 31 g/dL (31-37) Red Cell Distribution Width 15.2 % (11.5-14.5) Platelet Count 120 x10^3/uL (140-400) Neutrophils (%) (Auto) 91 % (31-73) Lymphocytes (%) (Auto) 5 % (24-48) Monocytes (%) (Auto) 4 % (0-9) Eosinophils (%) (Auto) 0 % (0-3) Basophils (%) (Auto) 0 % (0-3) Neutrophils # (Auto) 14.9 x10^3uL (1.8-7.7) Lymphocytes # (Auto) 0.8 x10^3/uL (1.0-4.8) Monocytes # (Auto) 0.7 x10^3/uL (0.0-1.1) Eosinophils # (Auto) 0.0 x10^3/uL (0.0-0.7) Basophils # (Auto) 0.0 x10^3/uL (0.0-0.2) Sodium Level 140 mmol/L (136-145) Potassium Level 5.1 mmol/L (3.5-5.1) Chloride Level 106 mmol/L (98-107) Carbon Dioxide Level 26 mmol/L (21-32) Anion Gap 8 (6-14) Blood Urea Nitrogen 29 mg/dL (8-26) Creatinine 1.8 mg/dL (0.7-1.3) Estimated GFR (Cockcroft-Gault) 36.9 Glucose Level 164 mg/dL (70-99) Lactic Acid Level 1.0 mmol/L (0.4-2.0) Calcium Level 7.8 mg/dL (8.5-10.1) Troponin I Quantitative 0.625 ng/mL (0.000-0.055) Mycoplasma Serology (LAB) Positive (NEGATIVE) O2 Saturation 92 % (92-99) Arterial Blood pH 7.33 (7.35-7.45) Arterial Blood pCO2 at Patient Temp 56 mmHg (35-46) Arterial Blood pO2 at Patient Temp 65 mmHg (65-108) Arterial Blood HCO3 29 mmol/L (21-28) Arterial Blood Base Excess 2 mmol/L (-3-3) FiO2 35 Test 10/08/18 10:50 10/08/18 14:02 10/08/18 18:13 10/09/18 00:08 O2 Saturation 91 % (92-99) Arterial Blood pH 7.27 (7.35-7.45) Arterial Blood pCO2 at Patient Temp 63 mmHg (35-46) Arterial Blood pO2 at Patient Temp 69 mmHg (65-108) Arterial Blood HCO3 28 mmol/L (21-28) Arterial Blood Base Excess 0 mmol/L (-3-3) FiO2 35 cpap trial Glucose (Fingerstick) 187 mg/dL (70-99) 145 mg/dL (70-99) 184 mg/dL (70-99) Test 10/09/18 06:10 10/09/18 06:11 10/09/18 08:00 10/09/18 10:27 White Blood Count 12.0 x10^3/uL (4.0-11.0) Red Blood Count 3.77 x10^6/uL (4.30-5.70) Hemoglobin 11.1 g/dL (13.0-17.5) Hematocrit 34.1 % (39.0-53.0) Mean Corpuscular Volume 91 fL (79-100) Mean Corpuscular Hemoglobin 29 pg (25-35) Mean Corpuscular Hemoglobin Concent 32 g/dL (31-37) Red Cell Distribution Width 15.6 % (11.5-14.5) Platelet Count 121 x10^3/uL (140-400) Neutrophils (%) (Auto) 91 % (31-73) Lymphocytes (%) (Auto) 4 % (24-48) Monocytes (%) (Auto) 5 % (0-9) Eosinophils (%) (Auto) 0 % (0-3) Basophils (%) (Auto) 0 % (0-3) Neutrophils # (Auto) 11.0 x10^3uL (1.8-7.7) Lymphocytes # (Auto) 0.5 x10^3/uL (1.0-4.8) Monocytes # (Auto) 0.5 x10^3/uL (0.0-1.1) Eosinophils # (Auto) 0.0 x10^3/uL (0.0-0.7) Basophils # (Auto) 0.0 x10^3/uL (0.0-0.2) Sodium Level 139 mmol/L (136-145) Potassium Level 4.6 mmol/L (3.5-5.1) Chloride Level 106 mmol/L (98-107) Carbon Dioxide Level 26 mmol/L (21-32) Anion Gap 7 (6-14) Blood Urea Nitrogen 34 mg/dL (8-26) Creatinine 1.5 mg/dL (0.7-1.3) Estimated GFR (Cockcroft-Gault) 45.5 Glucose Level 199 mg/dL (70-99) Calcium Level 7.5 mg/dL (8.5-10.1) Glucose (Fingerstick) 170 mg/dL (70-99) O2 Saturation 96 % (92-99) 93 % (92-99) Arterial Blood pH 7.34 (7.35-7.45) 7.30 (7.35-7.45) Arterial Blood pCO2 at Patient Temp 51 mmHg (35-46) 59 mmHg (35-46) Arterial Blood pO2 at Patient Temp 89 mmHg (65-108) 73 mmHg (65-108) Arterial Blood HCO3 27 mmol/L (21-28) 28 mmol/L (21-28) Arterial Blood Base Excess 0 mmol/L (-3-3) 1 mmol/L (-3-3) FiO2 35 35 Laboratory Tests Test 10/08/18 14:02 10/08/18 18:13 10/09/18 00:08 10/09/18 06:10 Glucose (Fingerstick) 187 mg/dL (70-99) 145 mg/dL (70-99) 184 mg/dL (70-99) White Blood Count 12.0 x10^3/uL (4.0-11.0) Red Blood Count 3.77 x10^6/uL (4.30-5.70) Hemoglobin 11.1 g/dL (13.0-17.5) Hematocrit 34.1 % (39.0-53.0) Mean Corpuscular Volume 91 fL (79-100) Mean Corpuscular Hemoglobin 29 pg (25-35) Mean Corpuscular Hemoglobin Concent 32 g/dL (31-37) Red Cell Distribution Width 15.6 % (11.5-14.5) Platelet Count 121 x10^3/uL (140-400) Neutrophils (%) (Auto) 91 % (31-73) Lymphocytes (%) (Auto) 4 % (24-48) Monocytes (%) (Auto) 5 % (0-9) Eosinophils (%) (Auto) 0 % (0-3) Basophils (%) (Auto) 0 % (0-3) Neutrophils # (Auto) 11.0 x10^3uL (1.8-7.7) Lymphocytes # (Auto) 0.5 x10^3/uL (1.0-4.8) Monocytes # (Auto) 0.5 x10^3/uL (0.0-1.1) Eosinophils # (Auto) 0.0 x10^3/uL (0.0-0.7) Basophils # (Auto) 0.0 x10^3/uL (0.0-0.2) Sodium Level 139 mmol/L (136-145) Potassium Level 4.6 mmol/L (3.5-5.1) Chloride Level 106 mmol/L (98-107) Carbon Dioxide Level 26 mmol/L (21-32) Anion Gap 7 (6-14) Blood Urea Nitrogen 34 mg/dL (8-26) Creatinine 1.5 mg/dL (0.7-1.3) Estimated GFR (Cockcroft-Gault) 45.5 Glucose Level 199 mg/dL (70-99) Calcium Level 7.5 mg/dL (8.5-10.1) Test 10/09/18 06:11 10/09/18 08:00 10/09/18 10:27 Glucose (Fingerstick) 170 mg/dL (70-99) O2 Saturation 96 % (92-99) 93 % (92-99) Arterial Blood pH 7.34 (7.35-7.45) 7.30 (7.35-7.45) Arterial Blood pCO2 at Patient Temp 51 mmHg (35-46) 59 mmHg (35-46) Arterial Blood pO2 at Patient Temp 89 mmHg (65-108) 73 mmHg (65-108) Arterial Blood HCO3 27 mmol/L (21-28) 28 mmol/L (21-28) Arterial Blood Base Excess 0 mmol/L (-3-3) 1 mmol/L (-3-3) FiO2 35 35 Microbiology 10/07/18 Blood Culture - Preliminary, Resulted NO GROWTH AFTER 1 DAY Medications Current Medications Sodium Chloride 1,000 ml @ 1,000 mls/hr Q1H IV Last administered on 10/07/18at 11:27; Start 10/07/18 at 10:52; Stop 10/07/18 at 11:51; Status DC Midazolam HCl 100 ml @ 1 mls/hr 1X ONCE IV Last administered on 10/07/18at 11:20; Start 10/07/18 at 11:15; Stop 10/11/18 at 15:14 Etomidate (Amidate) 20 mg STK-MED ONCE IV ; Start 10/07/18 at 11:13; Stop 10/07/18 at 11:14; Status DC Succinylcholine Chloride (Anectine) 200 mg STK-MED ONCE .ROUTE ; Start 10/07/18 at 11:13; Stop 10/07/18 at 11:14; Status DC Etomidate (Amidate) 20 mg 1X ONCE IV Last administered on 10/07/18at 11:01; Start 10/07/18 at 11:30; Stop 10/07/18 at 11:33; Status DC Succinylcholine Chloride (Anectine) 100 mg 1X ONCE IV Last administered on 10/07/18at 11:01; Start 10/07/18 at 11:30; Stop 10/07/18 at 11:33; Status DC Albuterol Sulfate (Ventolin Neb Soln) 10 mg 1X ONCE CONT NEB ; Start 10/07/18 at 12:00; Stop 10/07/18 at 12:01; Status DC Methylprednisolone Sodium Succinate (SOLU-Medrol 125MG VIAL) 125 mg 1X ONCE IV Last administered on 10/07/18at 11:52; Start 10/07/18 at 12:00; Stop 10/07/18 at 12:01; Status DC Vancomycin HCl 250 ml @ 250 mls/hr 1X ONCE IV Last administered on 10/07/18at 12:27; Start 10/07/18 at 12:00; Stop 10/07/18 at 12:59; Status DC Levofloxacin/ Dextrose 150 ml @ 100 mls/hr 1X ONCE IV Last administered on 10/07/18at 12:28; Start 10/07/18 at 12:00; Stop 10/07/18 at 13:29; Status DC Sodium Chloride 1,000 ml @ 1,000 mls/hr 1X ONCE IV Last administered on 10/07/18at 12:57; Start 10/07/18 at 12:45; Stop 10/07/18 at 13:44; Status DC Sodium Chloride 1,000 ml @ 1,000 mls/hr 1X ONCE IV Last administered on 10/07/18at 12:58; Start 10/07/18 at 12:45; Stop 10/07/18 at 13:44; Status DC Dextrose (Dextrose 50%-Water Syringe) 25 gm 1X ONCE IV Last administered on 10/07/18at 12:59; Start 10/07/18 at 12:45; Stop 10/07/18 at 12:46; Status DC Insulin Human Regular (HumuLIN R VIAL) 10 unit 1X ONCE IV Last administered on 10/07/18at 13:00; Start 10/07/18 at 12:45; Stop 10/07/18 at 12:46; Status DC Sodium Bicarbonate (Sodium Bicarb Adult 8.4% Syr) 50 meq 1X ONCE IV Last administered on 10/07/18at 13:07; Start 10/07/18 at 12:45; Stop 10/07/18 at 12:46; Status DC Sodium Chloride 1,000 ml @ 100 mls/hr Q10H IV ; Start 10/07/18 at 16:00; Stop 10/07/18 at 16:00; Status DC Pantoprazole Sodium (PROTONIX VIAL for IV PUSH) 40 mg DAILYAC IVP Last administered on 10/08/18at 08:25; Start 10/07/18 at 13:30; Stop 10/08/18 at 09:54; Status DC Pantoprazole Sodium (PROTONIX VIAL for IV PUSH) 40 mg 1X ONCE IVP ; Start 10/07/18 at 12:45; Stop 10/07/18 at 12:46; Status UNV Heparin Sodium (Porcine) (Heparin Sodium) 5,000 unit Q8HRS SQ Last administered on 10/09/18at 06:13; Start 10/07/18 at 14:00 Levofloxacin/ Dextrose (Levaquin Per Pharmacy) 1 each PRN DAILY PRN MC SEE COMMENTS; Start 10/07/18 at 12:45; Stop 10/08/18 at 07:33; Status DC Insulin Human Lispro (HumaLOG) 0-9 UNITS TIDWMEALS SQ ; Start 10/07/18 at 17:00; Stop 10/07/18 at 17:00; Status DC Dextrose (Dextrose 50%-Water Syringe) 12.5 gm PRN Q15MIN PRN IV SEE COMMENTS; Start 10/07/18 at 12:45 Albuterol/ Ipratropium (Duoneb) 3 ml RTQID NEB ; Start 10/07/18 at 16:00; Status Cancel Methylprednisolone Sodium Succinate (SOLU-Medrol 40MG VIAL) 40 mg Q8HRS IV Last administered on 10/09/18at 06:07; Start 10/07/18 at 22:00 Acetaminophen (Tylenol) 650 mg PRN Q6HRS PRN PEG MILD PAIN / TEMP Last administered on 10/08/18at 08:25; Start 10/07/18 at 12:45 Morphine Sulfate (Morphine Sulfate) 2 mg PRN Q2HR PRN IV PAIN Last administered on 10/09/18at 00:04; Start 10/07/18 at 12:45 Ondansetron HCl (Zofran) 4 mg PRN Q6HRS PRN IV NAUSEA/VOMITING; Start 10/07/18 at 12:45 Norepinephrine Bitartrate 250 ml @ 1.875 mls/ hr CONT PRN IV SEE I/O RECORD Last administered on 10/07/18at 14:01; Start 10/07/18 at 14:00 Sodium Chloride 1,000 ml @ 150 mls/hr Q6H40M IV Last administered on 10/08/18at 15:09; Start 10/07/18 at 14:00; Stop 10/08/18 at 13:59; Status DC Calcium Gluconate (Calcium Gluconate) 1,000 mg 1X ONCE IVP ; Start 10/07/18 at 13:30; Stop 10/07/18 at 13:31; Status Cancel Sodium Polystyrene Sulfonate (Kayexalate) 15 gm 1X ONCE PO Last administered on 10/07/18at 14:10; Start 10/07/18 at 13:30; Stop 10/07/18 at 13:31; Status DC Pantoprazole Sodium (PROTONIX VIAL for IV PUSH) 40 mg STK-MED ONCE IVP ; Start 10/07/18 at 12:52; Stop 10/07/18 at 12:55; Status DC Levofloxacin/ Dextrose 150 ml @ 100 mls/hr Q48H IV ; Start 10/09/18 at 12:00; Stop 10/09/18 at 12:00; Status DC Calcium Gluconate 1000 mg/Sodium Chloride 110 ml @ 220 mls/hr 1X ONCE IV Last administered on 10/07/18at 14:23; Start 10/07/18 at 15:00; Stop 10/07/18 at 15:29; Status DC Sodium Chloride 1,000 ml @ 1,000 mls/hr 1X ONCE IV Last administered on 10/07/18at 14:50; Start 10/07/18 at 15:00; Stop 10/07/18 at 15:59; Status DC Sodium Chloride 1,000 ml @ 999 mls/hr 1X ONCE IV ; Start 10/07/18 at 15:00; Stop 10/07/18 at 16:00; Status DC Albuterol Sulfate (Ventolin Neb Soln) 2.5 mg PRN Q2HR PRN NEB DYSPNEA; Start 10/07/18 at 15:00 Albuterol/ Ipratropium (Duoneb) 3 ml RTQID NEB Last administered on 10/09/18at 07:49; Start 10/07/18 at 16:00 Insulin Human Lispro (HumaLOG) 0-9 UNITS Q6HRS SQ ; Start 10/07/18 at 18:00 Meropenem 500 mg/ Sodium Chloride 50 ml @ 100 mls/hr Q8HRS IV Last administered on 10/09/18at 06:07; Start 10/07/18 at 17:00 Midazolam HCl 100 ml @ 5 mls/hr CONT PRN IV SEE I/O RECORD Last administered on 10/09/18at 06:07; Start 10/08/18 at 04:15 Lactobacillus Rhamnosus (Culturelle) 1 cap BID PO ; Start 10/08/18 at 09:00 Famotidine (Pepcid Vial) 20 mg QHS IVP Last administered on 10/08/18at 21:34; Start 10/08/18 at 21:00 Linezolid/Dextrose 300 ml @ 300 mls/hr Q12HR IV Last administered on 10/09/18at 08:29; Start 10/08/18 at 11:30 Active Scripts Active Reported Proair Hfa (Albuterol Sulfate) 8.5 Gm Hfa.aer.ad 1 Puff INH PRN Q6HRS PRN Oxazepam 30 Mg Capsule 30 Mg PO QHS Vitals/I & O Vital Sign - Last 24 Hours 10/08/18 10/08/18 10/08/18 10/08/18 11:32 12:00 12:00 13:00 Temp 99.8 99.8 Pulse 68 60 Resp 35 35 B/P (MAP) 150/59 (89) 113/49 (70) Pulse Ox 99 100 96 O2 Delivery Ventilator Ventilator Mechanical Ventilator Ventilator 10/08/18 10/08/18 10/08/18 10/08/18 14:00 14:07 15:00 15:37 Pulse 58 68 Resp 35 25 B/P (MAP) 119/65 (83) 147/69 (95) Pulse Ox 98 99 98 98 O2 Delivery Ventilator Ventilator Ventilator Ventilator 10/08/18 10/08/18 10/08/18 10/08/18 16:00 16:00 17:00 17:03 Temp 100.1 100.1 Pulse 51 64 Resp 14 22 B/P (MAP) 93/53 (66) 153/71 (98) Pulse Ox 99 100 97 O2 Delivery Ventilator Mechanical Ventilator Ventilator Ventilator 10/08/18 10/08/18 10/08/18 10/08/18 18:00 19:00 19:31 20:00 Temp 99.0 99.0 Pulse 59 54 56 Resp 28 22 22 B/P (MAP) 138/78 (98) 119/61 (80) 147/65 (92) Pulse Ox 100 100 99 99 O2 Delivery Ventilator Ventilator Ventilator Ventilator 10/08/18 10/08/18 10/08/18 10/08/18 20:00 21:00 22:00 23:00 Pulse 57 62 55 Resp 22 22 21 B/P (MAP) 143/66 (91) 177/78 (111) 184/74 (110) Pulse Ox 99 100 99 O2 Delivery Mechanical Ventilator Ventilator Ventilator Ventilator 10/08/18 10/09/18 10/09/18 10/09/18 23:39 00:00 00:00 00:04 Temp 97.5 97.5 Pulse 58 Resp 22 21 B/P (MAP) 156/68 (97) Pulse Ox 100 99 100 O2 Delivery Ventilator Mechanical Ventilator Ventilator Ventilator 10/09/18 10/09/18 10/09/18 10/09/18 00:41 01:00 02:00 03:00 Pulse 56 56 62 Resp 22 21 21 22 B/P (MAP) 178/82 (114) 160/74 (102) 165/76 (105) Pulse Ox 100 100 100 99 O2 Delivery Ventilator Ventilator Ventilator Ventilator 10/09/18 10/09/18 10/09/18 10/09/18 03:39 04:00 04:00 05:00 Temp 98.7 98.7 Pulse 61 52 Resp 22 21 B/P (MAP) 144/66 (92) 155/69 (97) Pulse Ox 100 99 99 O2 Delivery Ventilator Ventilator Mechanical Ventilator Ventilator 10/09/18 10/09/18 10/09/18 10/09/18 06:00 06:02 07:00 07:45 Temp 99.9 99.9 Pulse 72 66 Resp 21 21 B/P (MAP) 141/70 (93) 143/61 (88) Pulse Ox 96 100 100 O2 Delivery Ventilator Ventilator Ventilator Mechanical Ventilator 10/09/18 10/09/18 10/09/18 10/09/18 07:49 08:00 09:00 09:56 Pulse 64 62 Resp 22 21 B/P (MAP) 151/64 (93) Pulse Ox 100 99 100 100 O2 Delivery Ventilator Ventilator Ventilator Ventilator Intake and Output 10/08/18 10/08/18 10/09/18 15:00 23:00 07:00 Intake Total 350 ml 1463 ml 427.0 ml Output Total 325 ml 250 ml 330 ml Balance 25 ml 1213 ml 97.0 ml RAJIV PEREZ III DO October 09, 2018 11:33
[2018-10-09] MEDS: DOXYCYCLINE HYCLATE 100 MG in IV DEXTROSE 5% 100ML 100 ML IV SCH ×2 (13:10→20:58)
--- NOTE | 2018-10-09 13:31 | PDOC ---
JESSICA CORREIA [employer]LY[employer] 10/09/18 1331: CARDIO Progress Notes Date and Time Date of Service 10/09/18 Time of Evaluation 1315 Subjective Subjective: Other (intubated/sedated) Vitals Vitals Vital Signs Date Time Temp Pulse Resp B/P (MAP) Pulse Ox O2 Delivery O2 Flow Rate FiO2 10/09/18 13:00 49 32 134/63 (86) 100 Ventilator 10/09/18 12:00 98.9 98.9 Weight Weight [ ] Input and Output Intake and Output Intake and Output 10/09/18 07:00 Intake Total 2240.0 ml Output Total 905 ml Balance 1335.0 ml Intake Oral 0 ml IV Total 2240.0 ml Output Urine Total 905 ml # Bowel Movements 1 Laboratory Labs Laboratory Tests Test 10/08/18 14:02 10/08/18 18:13 10/09/18 00:08 10/09/18 06:10 Glucose (Fingerstick) 187 mg/dL (70-99) 145 mg/dL (70-99) 184 mg/dL (70-99) White Blood Count 12.0 x10^3/uL (4.0-11.0) Red Blood Count 3.77 x10^6/uL (4.30-5.70) Hemoglobin 11.1 g/dL (13.0-17.5) Hematocrit 34.1 % (39.0-53.0) Mean Corpuscular Volume 91 fL (79-100) Mean Corpuscular Hemoglobin 29 pg (25-35) Mean Corpuscular Hemoglobin Concent 32 g/dL (31-37) Red Cell Distribution Width 15.6 % (11.5-14.5) Platelet Count 121 x10^3/uL (140-400) Neutrophils (%) (Auto) 91 % (31-73) Lymphocytes (%) (Auto) 4 % (24-48) Monocytes (%) (Auto) 5 % (0-9) Eosinophils (%) (Auto) 0 % (0-3) Basophils (%) (Auto) 0 % (0-3) Neutrophils # (Auto) 11.0 x10^3uL (1.8-7.7) Lymphocytes # (Auto) 0.5 x10^3/uL (1.0-4.8) Monocytes # (Auto) 0.5 x10^3/uL (0.0-1.1) Eosinophils # (Auto) 0.0 x10^3/uL (0.0-0.7) Basophils # (Auto) 0.0 x10^3/uL (0.0-0.2) Sodium Level 139 mmol/L (136-145) Potassium Level 4.6 mmol/L (3.5-5.1) Chloride Level 106 mmol/L (98-107) Carbon Dioxide Level 26 mmol/L (21-32) Anion Gap 7 (6-14) Blood Urea Nitrogen 34 mg/dL (8-26) Creatinine 1.5 mg/dL (0.7-1.3) Estimated GFR (Cockcroft-Gault) 45.5 Glucose Level 199 mg/dL (70-99) Calcium Level 7.5 mg/dL (8.5-10.1) Test 10/09/18 06:11 10/09/18 08:00 10/09/18 10:27 10/09/18 12:21 Glucose (Fingerstick) 170 mg/dL (70-99) 181 mg/dL (70-99) O2 Saturation 96 % (92-99) 93 % (92-99) Arterial Blood pH 7.34 (7.35-7.45) 7.30 (7.35-7.45) Arterial Blood pCO2 at Patient Temp 51 mmHg (35-46) 59 mmHg (35-46) Arterial Blood pO2 at Patient Temp 89 mmHg (65-108) 73 mmHg (65-108) Arterial Blood HCO3 27 mmol/L (21-28) 28 mmol/L (21-28) Arterial Blood Base Excess 0 mmol/L (-3-3) 1 mmol/L (-3-3) FiO2 35 35 Microbiology Micro Microbiology 10/07/18 Blood Culture - Preliminary, Resulted NO GROWTH AFTER 1 DAY Physical Exam HEENT: Neck Supple W Full Motion Chest: Symmetric LUNGS: Other (mechanical vent) Heart: S1S2, RRR (SR/SB), other (distant heart tones) Abdomen: Other (soft) Extremities: No Edema Neurology: other (sedated) Assessment Assessment Acute respiratory failure with AECOPD; s/p intubation NSTEMI; peak 0.8. Most probably type II, demand ischemia Leukocytosis, lactic acidosis, ? sepsis. Off pressor support PNA, fevers UTI ALEX; improving Cardiomyopathy; echo showed LVEF 40% with global hypokinesis Bradycardia, sinus; lowest 45 Hyperkalemia, resolved H/o CVA Recommendations Avoid AV mc blocking agents Antibiotics as per ID ACEi when ALEX resolved and BP consistently adequate Consider future ischemic evaluation Supportive care from a CV standpoint ROXANN MORALES MD 10/09/18 [id number]: CARDIO Progress Notes Plan Plan Pt. seen and examined. Agree with above [employer] note. Plan for ischemic w/u on an outpt basis. JESSICA CORREIA APRN October 09, 2018 13:31 ROXANN MORALES MD October 09, 2018 23:06
--- NOTE | 2018-10-09 15:15 | CARD ---
MR#: [id number] Date of Study: 10/09/2018 Ordering Physician: THI MERA, Referring Physician: THI MERA, Tech: Vira Miller APPROVED REPORT EXAM: Two-dimensional and M-mode echocardiogram with Doppler and color Doppler. Other Information Quality : FairHR: 55bpm Technically limited study due to body habitus. INDICATION COPD Congestive Heart Failure Hypotension 2D DIMENSIONS RVDd2.9 (2.9-3.5cm)Left Atrium(2D)3.7 (1.6-4.0cm) IVSd1.4 (0.7-1.1cm)Aortic Root(2D)3.3 (2.0-3.7cm) LVDd5.1 (3.9-5.9cm)LVOT Diameter2.0 (1.8-2.4cm) PWd1.3 (0.7-1.1cm)LVDs3.8 (2.5-4.0cm) FS (%) 24.3 %SV58.3 ml LVEF(%)48.1 (>50%) Aortic Valve AoV Peak Gigi.116.9cm/sAoV VTI26.0cm AO Peak GR.5.5mmHgLVOT VTI 14.20cm AO Mean GR.3mmHg Mitral Valve MV E Nakalxjv45.1cm/sMV DECEL [id number] MV A Pctwples88.7cm/sE/A Ratio0.7 TDI Lateral E' P. V3.67cm/sMedial E' P. V4.31cm/s E/Lateral E'15.8E/Medial E'13.5 Pulmonary Vein S1 Tpnwbtdd56.4cm/sS2 Senxubhk76.95cm/s D2 Xelzyxcz27.9cm/sPVa [id number] LEFT VENTRICLE The left ventricle is normal size. There is moderate concentric left ventricular hypertrophy. The sys tolic function is moderately impaired. The Ejection Fraction is 40%. There is global hypokinesis of t he left ventricle. Transmitral Doppler flow pattern is Grade I-abnormal relaxation pattern. RIGHT VENTRICLE The right ventricle is mildly to moderately dilated. The right ventricle is mildly to moderately hype rtrophied. The right ventricular systolic function is normal. ATRIA The left atrium is mildly dilated. The right atrium is mildly dilated. The interatrial septum is inta ct with no evidence for an atrial septal defect or patent foramen ovale as noted on 2-D or Doppler im aging. AORTIC VALVE The aortic valve is normal in structure and function. Doppler and Color Flow revealed no significant aortic regurgitation. There is no significant aortic valvular stenosis. MITRAL VALVE The mitral valve is normal in structure and function. There is no evidence of mitral valve prolapse. There is no mitral valve stenosis. Doppler and Color Flow revealed no mitral valve regurgitation note d. TRICUSPID VALVE The tricuspid valve is not well visualized. Doppler and Color Flow revealed no tricuspid valve regurg itation noted. There is no tricuspid valve stenosis. PULMONIC VALVE The pulmonic valve is not well visualized. Doppler and Color Flow revealed no pulmonic valvular regur gitation. GREAT VESSELS The aortic root is normal in size. The IVC is normal in size and collapses >50% with inspiration. PERICARDIAL EFFUSION There is no evidence of significant pericardial effusion. Critical Notification Critical Value: No <Conclusion> The systolic function is moderately impaired. The Ejection Fraction is 40%. There is global hypokinesis of the left ventricle. The right ventricle is mildly to moderately hypertrophied. The right ventricle is mildly to moderately dilated. Signed by : Erik Montes, Electronically Approved : 10/09/2018 15:14:33
[2018-10-09] MEDS: FAMOTIDINE 20 MG/2 ML VIAL IVP SCH (20:58)
[2018-10-10] VITALS (23 sets, daily range): BP systolic 86–173; BP diastolic 45–72
[2018-10-10] MEDS: MIDAZOLAM 100mg/100ml NS BAG 100 ML IV PRN ×2 (02:44→20:28)
[2018-10-10] MEDS: methylPREDNISolone SOD SUCC PF 40 MG/ML VIAL. IV SCH ×3 (06:10→22:00)
[2018-10-10] MEDS: MEROPENEM 500 MG in IV NORMAL SALINE 50ML 50 ML IV SCH ×3 (06:10→22:00)
[2018-10-10] MEDS: HEPARIN for SUB-Q USE 5,000 UNIT/ML VIAL. SQ SCH ×3 (06:14→22:02)
[2018-10-10] MEDS: INSULIN LISPRO 300 UNITS/3 ML INSULN.PEN. SQ SCH ×3 (06:25→18:41)
[2018-10-10 06:58] LABS: CHOLESTEROL/HDL RATIO 3.8
--- NOTE | 2018-10-10 07:26 | PDOC ---
Infectious Disease Note Subjective Subjective Remains intubated but alert some ROS ROS unable to obtain Vital Sign Vital Signs Vital Signs Date Time Temp Pulse Resp B/P (MAP) Pulse Ox O2 Delivery O2 Flow Rate FiO2 10/10/18 06:00 56 22 116/61 (79) 100 Ventilator 10/10/18 04:00 98.1 98.1 Physical Exam PHYSICAL EXAM GENERAL: intubated/more alert HENT: nml conj. PERRL. ETT, OGT LUNGS: Clear CV: S1 S2 regular ABD: Soft, BS present, obese : Jeffers in place EXT: 1- 2+ edema lower extremities, bilaterally. 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 RIJ (10/07) clean Labs Lab Laboratory Tests Test 10/09/18 08:00 10/09/18 10:27 10/09/18 12:21 10/09/18 17:47 O2 Saturation 96 % (92-99) 93 % (92-99) Arterial Blood pH 7.34 (7.35-7.45) 7.30 (7.35-7.45) Arterial Blood pCO2 at Patient Temp 51 mmHg (35-46) 59 mmHg (35-46) Arterial Blood pO2 at Patient Temp 89 mmHg (65-108) 73 mmHg (65-108) Arterial Blood HCO3 27 mmol/L (21-28) 28 mmol/L (21-28) Arterial Blood Base Excess 0 mmol/L (-3-3) 1 mmol/L (-3-3) FiO2 35 35 Glucose (Fingerstick) 181 mg/dL (70-99) 184 mg/dL (70-99) Test 10/09/18 23:34 10/10/18 06:20 10/10/18 06:22 Glucose (Fingerstick) 196 mg/dL (70-99) 205 mg/dL (70-99) Triglycerides Level 103 mg/dL (0-150) Cholesterol Level 123 mg/dL (0-200) LDL Cholesterol, Calculated 70 mg/dL (0-100) VLDL Cholesterol, Calculated 21 mg/dL (0-40) Non-HDL Cholesterol Calculated 91 mg/dL (0-129) HDL Cholesterol 32 mg/dL (40-60) Cholesterol/HDL Ratio 3.8 Micro Microbiology 10/07/18 Blood Culture - Preliminary, Resulted NO GROWTH AFTER 2 DAYS Objective Assessment Fever -better Pneumonia + mycoplasma 10/08 - on Doxy 10/09 UTI, POA UC pending Lactic acidosis Allergy PCN w/ hives and throat swelling; erythromycin w/ hives. Leukocytosis - on steroids Hypotension, now off Levophed gtt Acute encephalopathy - imrpoving Acute respiratory failure s/p intubation ALEX COPD, O2 dependent Plan Plan of Care Continue meropenem (10/07) d/c Zyvox (10/08) Cont doxy (10/09) BMP in am One time dose vancomycin, 10/07 Levaquin, 10/07 and today but will change to Doxy starting 10/10 given cardiac issues Steroids Sputum/urine cultures pending BC NGTD Strep Ur Ag and legionella pending Maintain aspiration precautions D/w nursing D/w BELKYS SHEETS MD October 10, 2018 07:26
[2018-10-10] MEDS: IPRATRPIUM/ALBUTEROL 0.5/2.5MG 3 ML NEBU. NEB SCH ×4 (07:33→19:49)
--- NOTE | 2018-10-10 08:14 | RAD ---
PORTABLE CHEST 1V History: Respiratory failure Comparison: October 09, 2018 Findings: Single view of the chest is submitted. There is right internal jugular venous catheter with tip terminating in the superior aspect of the superior vena cava and enteric catheter coursing into the stomach, not fully seen. Endotracheal tube tip terminates about 4 to 5 cm from lis. Cardiac silhouette is unchanged. There is again probable small left pleural effusion with adjacent airspace opacity, also airspace and reticular opacity at the right lung base fairly similar. There is other more diffuse interstitial opacity as seen previously. Impression: 1. Radiographic findings are fairly similar with catheters and tubes as stated, small left pleural effusion, bibasilar airspace opacity likely component of infiltrates, and fairly diffuse interstitial opacity which may be related to more diffuse interstitial infiltrate or edema. Electronically signed by: Dago Jeffery MD (10/10/2018 8:11 AM) [id number]
[2018-10-10] MEDS: DOXYCYCLINE HYCLATE 100 MG in IV DEXTROSE 5% 100ML 100 ML IV SCH ×2 (08:44→21:24)
[2018-10-10] MEDS: ASPIRIN ENTERIC COATED 81 MG TABLET.DR. PO SCH (08:44)
--- NOTE | 2018-10-10 10:00 | PDOC ---
PULMONARY PROGRESS NOTES Subjective PT FAILED CPAP YESTERDAY INCREASE WOB ON CPAP TODAY Vitals Vital Signs Date Time Temp Pulse Resp B/P (MAP) Pulse Ox O2 Delivery O2 Flow Rate FiO2 10/10/18 08:19 61 21 124/72 (89) 100 Ventilator 10/10/18 07:00 98.7 98.7 General: Lethargic Lungs: Other (DECREASE BS) Cardiovascular: S1, S2 Abdomen: Soft Extremities: No Edema Skin: Warm Labs Laboratory Tests Test 10/08/18 10:50 10/08/18 14:02 10/08/18 18:13 10/09/18 00:08 O2 Saturation 91 % (92-99) Arterial Blood pH 7.27 (7.35-7.45) Arterial Blood pCO2 at Patient Temp 63 mmHg (35-46) Arterial Blood pO2 at Patient Temp 69 mmHg (65-108) Arterial Blood HCO3 28 mmol/L (21-28) Arterial Blood Base Excess 0 mmol/L (-3-3) FiO2 35 cpap trial Glucose (Fingerstick) 187 mg/dL (70-99) 145 mg/dL (70-99) 184 mg/dL (70-99) Test 10/09/18 06:10 10/09/18 06:11 10/09/18 08:00 10/09/18 10:27 White Blood Count 12.0 x10^3/uL (4.0-11.0) Red Blood Count 3.77 x10^6/uL (4.30-5.70) Hemoglobin 11.1 g/dL (13.0-17.5) Hematocrit 34.1 % (39.0-53.0) Mean Corpuscular Volume 91 fL (79-100) Mean Corpuscular Hemoglobin 29 pg (25-35) Mean Corpuscular Hemoglobin Concent 32 g/dL (31-37) Red Cell Distribution Width 15.6 % (11.5-14.5) Platelet Count 121 x10^3/uL (140-400) Neutrophils (%) (Auto) 91 % (31-73) Lymphocytes (%) (Auto) 4 % (24-48) Monocytes (%) (Auto) 5 % (0-9) Eosinophils (%) (Auto) 0 % (0-3) Basophils (%) (Auto) 0 % (0-3) Neutrophils # (Auto) 11.0 x10^3uL (1.8-7.7) Lymphocytes # (Auto) 0.5 x10^3/uL (1.0-4.8) Monocytes # (Auto) 0.5 x10^3/uL (0.0-1.1) Eosinophils # (Auto) 0.0 x10^3/uL (0.0-0.7) Basophils # (Auto) 0.0 x10^3/uL (0.0-0.2) Sodium Level 139 mmol/L (136-145) Potassium Level 4.6 mmol/L (3.5-5.1) Chloride Level 106 mmol/L (98-107) Carbon Dioxide Level 26 mmol/L (21-32) Anion Gap 7 (6-14) Blood Urea Nitrogen 34 mg/dL (8-26) Creatinine 1.5 mg/dL (0.7-1.3) Estimated GFR (Cockcroft-Gault) 45.5 Glucose Level 199 mg/dL (70-99) Calcium Level 7.5 mg/dL (8.5-10.1) Glucose (Fingerstick) 170 mg/dL (70-99) O2 Saturation 96 % (92-99) 93 % (92-99) Arterial Blood pH 7.34 (7.35-7.45) 7.30 (7.35-7.45) Arterial Blood pCO2 at Patient Temp 51 mmHg (35-46) 59 mmHg (35-46) Arterial Blood pO2 at Patient Temp 89 mmHg (65-108) 73 mmHg (65-108) Arterial Blood HCO3 27 mmol/L (21-28) 28 mmol/L (21-28) Arterial Blood Base Excess 0 mmol/L (-3-3) 1 mmol/L (-3-3) FiO2 35 35 Test 10/09/18 12:21 10/09/18 17:47 10/09/18 23:34 10/10/18 06:20 Glucose (Fingerstick) 181 mg/dL (70-99) 184 mg/dL (70-99) 196 mg/dL (70-99) Triglycerides Level 103 mg/dL (0-150) Cholesterol Level 123 mg/dL (0-200) LDL Cholesterol, Calculated 70 mg/dL (0-100) VLDL Cholesterol, Calculated 21 mg/dL (0-40) Non-HDL Cholesterol Calculated 91 mg/dL (0-129) HDL Cholesterol 32 mg/dL (40-60) Cholesterol/HDL Ratio 3.8 Test 10/10/18 06:22 Glucose (Fingerstick) 205 mg/dL (70-99) Laboratory Tests Test 10/09/18 10:27 10/09/18 12:21 10/09/18 17:47 10/09/18 23:34 O2 Saturation 93 % (92-99) Arterial Blood pH 7.30 (7.35-7.45) Arterial Blood pCO2 at Patient Temp 59 mmHg (35-46) Arterial Blood pO2 at Patient Temp 73 mmHg (65-108) Arterial Blood HCO3 28 mmol/L (21-28) Arterial Blood Base Excess 1 mmol/L (-3-3) FiO2 35 Glucose (Fingerstick) 181 mg/dL (70-99) 184 mg/dL (70-99) 196 mg/dL (70-99) Test 10/10/18 06:20 10/10/18 06:22 Triglycerides Level 103 mg/dL (0-150) Cholesterol Level 123 mg/dL (0-200) LDL Cholesterol, Calculated 70 mg/dL (0-100) VLDL Cholesterol, Calculated 21 mg/dL (0-40) Non-HDL Cholesterol Calculated 91 mg/dL (0-129) HDL Cholesterol 32 mg/dL (40-60) Cholesterol/HDL Ratio 3.8 Glucose (Fingerstick) 205 mg/dL (70-99) Medications Active Scripts Medications Dose Route/Sig Max Daily Dose Days Date Category Proair Hfa (Albuterol Sulfate) 8.5 Gm Hfa.aer.ad 1 Puff INH PRN Q6HRS PRN 10/07/18 Reported Oxazepam 30 Mg Capsule 30 Mg PO QHS 10/07/18 Reported Impression . 1. Acute on chronic hypoxemic/ hypercapnic respiratory failure. 2. Acute exacerbation of chronic obstructive pulmonary disease. 3. Abnormal x-ray compatible with pneumonia, left lower lobe. 4. Gram-negative, possible gram-positive pneumonia. 5. No history given of diabetes, hypertension or renal failure. 6. History of alcohol intake, discontinued approximately 4 years ago. 7. Possible sepsis. 8. Positive mycoplasma serology 9. EF 40% IMPRESSION: 1. Diffuse interstitial changes, increased from prior study. Stimulated increasing interstitial edema or atypical pneumonia. 2. Left basilar consolidation with moderate size left pleural effusion, increased from prior study. Plan . 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
[2018-10-10 10:10] LABS: BASE EXCESS ABG -1 mmol/L (-3-3); HCO3 ABG 27 mmol/L (21-28); PO2 ABG 77 mmHg (65-108); SAT O2 ABG 93 % (92-99)
[2018-10-10 10:24] LABS: FIO2 ABG 35; PCO2 ABG 63 mmHg (35-46)
--- NOTE | 2018-10-10 14:38 | PDOC ---
JEREMIAH CANTRELL LASTING FLOORWORKER 10/10/18 1438: CARDIO Progress Notes Date and Time Date of Service 10/10/2018 Time of Evaluation 1410 Subjective Subjective: Other (intubated/sedated) Vitals Vitals Vital Signs Date Time Temp Pulse Resp B/P (MAP) Pulse Ox O2 Delivery O2 Flow Rate FiO2 10/10/18 14:00 46 22 100/47 (64) 99 Ventilator 10/10/18 12:00 98.9 98.9 Weight Weight [ ] Input and Output Intake and Output Intake and Output 10/10/18 07:00 Intake Total 1511 ml Output Total 985 ml Balance 526 ml IV Total 521 ml Tube Feeding 740 ml Other 250 ml Output Urine Total 985 ml Laboratory Labs Laboratory Tests Test 10/09/18 17:47 10/09/18 23:34 10/10/18 06:20 10/10/18 06:22 Glucose (Fingerstick) 184 mg/dL (70-99) 196 mg/dL (70-99) 205 mg/dL (70-99) Triglycerides Level 103 mg/dL (0-150) Cholesterol Level 123 mg/dL (0-200) LDL Cholesterol, Calculated 70 mg/dL (0-100) VLDL Cholesterol, Calculated 21 mg/dL (0-40) Non-HDL Cholesterol Calculated 91 mg/dL (0-129) HDL Cholesterol 32 mg/dL (40-60) Cholesterol/HDL Ratio 3.8 Test 10/10/18 10:00 10/10/18 11:56 O2 Saturation 93 % (92-99) Arterial Blood pH 7.25 (7.35-7.45) Arterial Blood pCO2 at Patient Temp 63 mmHg (35-46) Arterial Blood pO2 at Patient Temp 77 mmHg (65-108) Arterial Blood HCO3 27 mmol/L (21-28) Arterial Blood Base Excess -1 mmol/L (-3-3) FiO2 35 Glucose (Fingerstick) 167 mg/dL (70-99) Microbiology Micro Microbiology 10/07/18 Blood Culture - Preliminary, Resulted NO GROWTH AFTER 2 DAYS Physical Exam HEENT: Neck Supple W Full Motion Chest: Symmetric LUNGS: Other (mechanical vent, basilar crackles) Heart: S1S2, RRR (SR/SB), other (distant heart tones) Abdomen: Soft N/T, Other (soft) Extremities: Other (1-2+ bilateral LE pitting edema) Neurology: other (sedated) Assessment Assessment 1. Acute respiratory failure with COPD, CHF, and pneumonia: intubated with vent 2. NSTEMI; peak 0.8. EF at 40% with global hypokinesis, multifactorial. 3. Acute diastolic/systolic CHF: LE edema better 4. Sepsis with UTI and pneumonia: BP marginal. Off pressors 5. ALEX; improving 6. Cardiomyopathy: NICM vs ICM 7. Hyperkalemia: resolved 8. H/o CVA 9. Sinus bradycardia: mean 50s, no pauses or blocks Recommendations 1. BMP, Mg. UOP 30-40 ml/hr. Lasix PRN 2. Avoid AV mc blocking agents. Discussed with RN, will lower IVF with current TF. 3. Antibiotics as per ID 4. ACEi prior to discharge. 5. Failed wean trial today, if persistent then will consider for LHC. ROXANN MORALES MD 10/10/18 1720: CARDIO Progress Notes Plan Plan Patient seen and examined. Agree with above nurse practitioner note. Continue supportive care. Continue treatment for his pulmonary infection. No acute cardiac issues. Continue diuresis as tolerated. We will plan for outpatient ischemic evaluation. Discussed with at bedside. JEREMIAH CANTRELL APRN October 10, 2018 14:38 ROXANN MORALES MD October 10, 2018 17:20
--- NOTE | 2018-10-10 14:44 | PDOC ---
[employer] PROGRESS NOTE Chief Complaint Chief Complaint Fulminant respiratory failure End-stage COPD Clinical pneumonia Possible sepsis Noncompliance History of Present Illness History of Present Illness Patient was seen and examined in the intensive care unit He is still on the assist control/20/500/35% with 5 of PEEP His is present I discussed with her Discussed with the RN and respiratory therapy Vitals Vitals Vital Signs Date Time Temp Pulse Resp B/P (MAP) Pulse Ox O2 Delivery O2 Flow Rate FiO2 10/10/18 14:00 46 22 100/47 (64) 99 Ventilator 10/10/18 12:00 98.9 98.9 Physical Exam Physical Exam GENERAL: intubated/more alert HENT: nml conj. PERRL. ETT, OGT LUNGS: Clear CV: S1 S2 regular ABD: Soft, BS present, obese : Jeffers in place EXT: 1- 2+ edema lower extremities, bilaterally. 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 RIJ (10/07) clean General: No acute distress Lungs: Other (DECREASE BS) Abdomen: Normal bowel sounds, Soft, No tenderness, No hepatosplenomegaly, No masses Extremities: No clubbing, No cyanosis, No edema, Normal pulses, No tenderness/swelling Skin: No rashes, No breakdown, No significant lesion Labs LABS Laboratory Tests Test 10/09/18 17:47 10/09/18 23:34 10/10/18 06:20 10/10/18 06:22 Glucose (Fingerstick) 184 mg/dL (70-99) 196 mg/dL (70-99) 205 mg/dL (70-99) Triglycerides Level 103 mg/dL (0-150) Cholesterol Level 123 mg/dL (0-200) LDL Cholesterol, Calculated 70 mg/dL (0-100) VLDL Cholesterol, Calculated 21 mg/dL (0-40) Non-HDL Cholesterol Calculated 91 mg/dL (0-129) HDL Cholesterol 32 mg/dL (40-60) Cholesterol/HDL Ratio 3.8 Test 10/10/18 10:00 10/10/18 11:56 O2 Saturation 93 % (92-99) Arterial Blood pH 7.25 (7.35-7.45) Arterial Blood pCO2 at Patient Temp 63 mmHg (35-46) Arterial Blood pO2 at Patient Temp 77 mmHg (65-108) Arterial Blood HCO3 27 mmol/L (21-28) Arterial Blood Base Excess -1 mmol/L (-3-3) FiO2 35 Glucose (Fingerstick) 167 mg/dL (70-99) Review of Systems Review of Systems Unable to obtain Assessment and Plan Assessmemt and Plan Problems Medical Problems: (1) Acute respiratory distress Status: Acute (2) CAP (community acquired pneumonia) Status: Acute (3) CHF (congestive heart failure) Status: Acute (4) Elevated liver function tests Status: Acute (5) Elevated troponin I level Status: Acute (6) Hyperkalemia Status: Acute (7) Renal insufficiency Status: Acute (8) Sepsis Status: Acute (9) Unresponsiveness Status: Acute (10) Urinary tract infection Status: Acute Fulminant respiratory failure End-stage COPD Clinical pneumonia Possible sepsis Noncompliance Plan Mechanical ventilation IV steroids Duo nebs IV antibiotics DVT prophylaxis Full code Pulmonary following Frequent labs Prognosis guarded This is a critically ill patient on the vent Total time 33 minutes Comment Review of Relevant I have reviewed the following items akbar (where applicable) has been applied. Labs Laboratory Tests Test 10/08/18 18:13 10/09/18 00:08 10/09/18 06:10 10/09/18 06:11 Glucose (Fingerstick) 145 mg/dL (70-99) 184 mg/dL (70-99) 170 mg/dL (70-99) White Blood Count 12.0 x10^3/uL (4.0-11.0) Red Blood Count 3.77 x10^6/uL (4.30-5.70) Hemoglobin 11.1 g/dL (13.0-17.5) Hematocrit 34.1 % (39.0-53.0) Mean Corpuscular Volume 91 fL (79-100) Mean Corpuscular Hemoglobin 29 pg (25-35) Mean Corpuscular Hemoglobin Concent 32 g/dL (31-37) Red Cell Distribution Width 15.6 % (11.5-14.5) Platelet Count 121 x10^3/uL (140-400) Neutrophils (%) (Auto) 91 % (31-73) Lymphocytes (%) (Auto) 4 % (24-48) Monocytes (%) (Auto) 5 % (0-9) Eosinophils (%) (Auto) 0 % (0-3) Basophils (%) (Auto) 0 % (0-3) Neutrophils # (Auto) 11.0 x10^3uL (1.8-7.7) Lymphocytes # (Auto) 0.5 x10^3/uL (1.0-4.8) Monocytes # (Auto) 0.5 x10^3/uL (0.0-1.1) Eosinophils # (Auto) 0.0 x10^3/uL (0.0-0.7) Basophils # (Auto) 0.0 x10^3/uL (0.0-0.2) Sodium Level 139 mmol/L (136-145) Potassium Level 4.6 mmol/L (3.5-5.1) Chloride Level 106 mmol/L (98-107) Carbon Dioxide Level 26 mmol/L (21-32) Anion Gap 7 (6-14) Blood Urea Nitrogen 34 mg/dL (8-26) Creatinine 1.5 mg/dL (0.7-1.3) Estimated GFR (Cockcroft-Gault) 45.5 Glucose Level 199 mg/dL (70-99) Calcium Level 7.5 mg/dL (8.5-10.1) Test 10/09/18 08:00 10/09/18 10:27 10/09/18 12:21 10/09/18 17:47 O2 Saturation 96 % (92-99) 93 % (92-99) Arterial Blood pH 7.34 (7.35-7.45) 7.30 (7.35-7.45) Arterial Blood pCO2 at Patient Temp 51 mmHg (35-46) 59 mmHg (35-46) Arterial Blood pO2 at Patient Temp 89 mmHg (65-108) 73 mmHg (65-108) Arterial Blood HCO3 27 mmol/L (21-28) 28 mmol/L (21-28) Arterial Blood Base Excess 0 mmol/L (-3-3) 1 mmol/L (-3-3) FiO2 35 35 Glucose (Fingerstick) 181 mg/dL (70-99) 184 mg/dL (70-99) Test 10/09/18 23:34 10/10/18 06:20 10/10/18 06:22 10/10/18 10:00 Glucose (Fingerstick) 196 mg/dL (70-99) 205 mg/dL (70-99) Triglycerides Level 103 mg/dL (0-150) Cholesterol Level 123 mg/dL (0-200) LDL Cholesterol, Calculated 70 mg/dL (0-100) VLDL Cholesterol, Calculated 21 mg/dL (0-40) Non-HDL Cholesterol Calculated 91 mg/dL (0-129) HDL Cholesterol 32 mg/dL (40-60) Cholesterol/HDL Ratio 3.8 O2 Saturation 93 % (92-99) Arterial Blood pH 7.25 (7.35-7.45) Arterial Blood pCO2 at Patient Temp 63 mmHg (35-46) Arterial Blood pO2 at Patient Temp 77 mmHg (65-108) Arterial Blood HCO3 27 mmol/L (21-28) Arterial Blood Base Excess -1 mmol/L (-3-3) FiO2 35 Test 10/10/18 11:56 Glucose (Fingerstick) 167 mg/dL (70-99) Laboratory Tests Test 10/09/18 17:47 10/09/18 23:34 10/10/18 06:20 10/10/18 06:22 Glucose (Fingerstick) 184 mg/dL (70-99) 196 mg/dL (70-99) 205 mg/dL (70-99) Triglycerides Level 103 mg/dL (0-150) Cholesterol Level 123 mg/dL (0-200) LDL Cholesterol, Calculated 70 mg/dL (0-100) VLDL Cholesterol, Calculated 21 mg/dL (0-40) Non-HDL Cholesterol Calculated 91 mg/dL (0-129) HDL Cholesterol 32 mg/dL (40-60) Cholesterol/HDL Ratio 3.8 Test 10/10/18 10:00 10/10/18 11:56 O2 Saturation 93 % (92-99) Arterial Blood pH 7.25 (7.35-7.45) Arterial Blood pCO2 at Patient Temp 63 mmHg (35-46) Arterial Blood pO2 at Patient Temp 77 mmHg (65-108) Arterial Blood HCO3 27 mmol/L (21-28) Arterial Blood Base Excess -1 mmol/L (-3-3) FiO2 35 Glucose (Fingerstick) 167 mg/dL (70-99) Microbiology 10/07/18 Blood Culture - Preliminary, Resulted NO GROWTH AFTER 2 DAYS Medications Current Medications Sodium Chloride 1,000 ml @ 1,000 mls/hr Q1H IV Last administered on 10/07/18at 11:27; Start 10/07/18 at 10:52; Stop 10/07/18 at 11:51; Status DC Midazolam HCl 100 ml @ 1 mls/hr 1X ONCE IV Last administered on 10/07/18at 11:20; Start 10/07/18 at 11:15; Stop 10/09/18 at 15:55; Status DC Etomidate (Amidate) 20 mg STK-MED ONCE IV ; Start 10/07/18 at 11:13; Stop 10/07/18 at 11:14; Status DC Succinylcholine Chloride (Anectine) 200 mg STK-MED ONCE .ROUTE ; Start 10/07/18 at 11:13; Stop 10/07/18 at 11:14; Status DC Etomidate (Amidate) 20 mg 1X ONCE IV Last administered on 10/07/18at 11:01; Start 10/07/18 at 11:30; Stop 10/07/18 at 11:33; Status DC Succinylcholine Chloride (Anectine) 100 mg 1X ONCE IV Last administered on 10/07/18at 11:01; Start 10/07/18 at 11:30; Stop 10/07/18 at 11:33; Status DC Albuterol Sulfate (Ventolin Neb Soln) 10 mg 1X ONCE CONT NEB ; Start 10/07/18 at 12:00; Stop 10/07/18 at 12:01; Status DC Methylprednisolone Sodium Succinate (SOLU-Medrol 125MG VIAL) 125 mg 1X ONCE IV Last administered on 10/07/18at 11:52; Start 10/07/18 at 12:00; Stop 10/07/18 at 12:01; Status DC Vancomycin HCl 250 ml @ 250 mls/hr 1X ONCE IV Last administered on 10/07/18at 12:27; Start 10/07/18 at 12:00; Stop 10/07/18 at 12:59; Status DC Levofloxacin/ Dextrose 150 ml @ 100 mls/hr 1X ONCE IV Last administered on 10/07/18at 12:28; Start 10/07/18 at 12:00; Stop 10/07/18 at 13:29; Status DC Sodium Chloride 1,000 ml @ 1,000 mls/hr 1X ONCE IV Last administered on 10/07/18at 12:57; Start 10/07/18 at 12:45; Stop 10/07/18 at 13:44; Status DC Sodium Chloride 1,000 ml @ 1,000 mls/hr 1X ONCE IV Last administered on 10/07/18at 12:58; Start 10/07/18 at 12:45; Stop 10/07/18 at 13:44; Status DC Dextrose (Dextrose 50%-Water Syringe) 25 gm 1X ONCE IV Last administered on 10/07/18at 12:59; Start 10/07/18 at 12:45; Stop 10/07/18 at 12:46; Status DC Insulin Human Regular (HumuLIN R VIAL) 10 unit 1X ONCE IV Last administered on 10/07/18at 13:00; Start 10/07/18 at 12:45; Stop 10/07/18 at 12:46; Status DC Sodium Bicarbonate (Sodium Bicarb Adult 8.4% Syr) 50 meq 1X ONCE IV Last administered on 10/07/18at 13:07; Start 10/07/18 at 12:45; Stop 10/07/18 at 12:46; Status DC Sodium Chloride 1,000 ml @ 100 mls/hr Q10H IV ; Start 10/07/18 at 16:00; Stop 10/07/18 at 16:00; Status DC Pantoprazole Sodium (PROTONIX VIAL for IV PUSH) 40 mg DAILYAC IVP Last adm inistered on 10/08/18at 08:25; Start 10/07/18 at 13:30; Stop 10/08/18 at 09:54; Status DC Pantoprazole Sodium (PROTONIX VIAL for IV PUSH) 40 mg 1X ONCE IVP ; Start 10/07/18 at 12:45; Stop 10/07/18 at 12:46; Status UNV Heparin Sodium (Porcine) (Heparin Sodium) 5,000 unit Q8HRS SQ Last administered on 10/10/18at 14:15; Start 10/07/18 at 14:00 Levofloxacin/ Dextrose (Levaquin Per Pharmacy) 1 each PRN DAILY PRN MC SEE COMMENTS; Start 10/07/18 at 12:45; Stop 10/08/18 at 07:33; Status DC Insulin Human Lispro (HumaLOG) 0-9 UNITS TIDWMEALS SQ ; Start 10/07/18 at 17:00; Stop 10/07/18 at 17:00; Status DC Dextrose (Dextrose 50%-Water Syringe) 12.5 gm PRN Q15MIN PRN IV SEE COMMENTS; Start 10/07/18 at 12:45 Albuterol/ Ipratropium (Duoneb) 3 ml RTQID NEB ; Start 10/07/18 at 16:00; Status Cancel Methylprednisolone Sodium Succinate (SOLU-Medrol 40MG VIAL) 40 mg Q8HRS IV Last administered on 10/10/18at 14:14; Start 10/07/18 at 22:00 Acetaminophen (Tylenol) 650 mg PRN Q6HRS PRN PEG MILD PAIN / TEMP Last administered on 10/08/18at 08:25; Start 10/07/18 at 12:45 Morphine Sulfate (Morphine Sulfate) 2 mg PRN Q2HR PRN IV PAIN Last administered on 10/09/18at 00:04; Start 10/07/18 at 12:45 Ondansetron HCl (Zofran) 4 mg PRN Q6HRS PRN IV NAUSEA/VOMITING; Start 10/07/18 at 12:45 Norepinephrine Bitartrate 250 ml @ 1.875 mls/ hr CONT PRN IV SEE I/O RECORD Last administered on 10/07/18at 14:01; Start 10/07/18 at 14:00 Sodium Chloride 1,000 ml @ 150 mls/hr Q6H40M IV Last administered on 10/08/18at 15:09; Start 10/07/18 at 14:00; Stop 10/08/18 at 13:59; Status DC Calcium Gluconate (Calcium Gluconate) 1,000 mg 1X ONCE IVP ; Start 10/07/18 at 13:30; Stop 10/07/18 at 13:31; Status Cancel Sodium Polystyrene Sulfonate (Kayexalate) 15 gm 1X ONCE PO Last administered on 10/07/18at 14:10; Start 10/07/18 at 13:30; Stop 10/07/18 at 13:31; Status DC Pantoprazole Sodium (PROTONIX VIAL for IV PUSH) 40 mg STK-MED ONCE IVP ; Start 10/07/18 at 12:52; Stop 10/07/18 at 12:55; Status DC Levofloxacin/ Dextrose 150 ml @ 100 mls/hr Q48H IV ; Start 10/09/18 at 12:00; Stop 10/09/18 at 12:00; Status DC Calcium Gluconate 1000 mg/Sodium Chloride 110 ml @ 220 mls/hr 1X ONCE IV Last administered on 10/07/18at 14:23; Start 10/07/18 at 15:00; Stop 10/07/18 at 15:29; Status DC Sodium Chloride 1,000 ml @ 1,000 mls/hr 1X ONCE IV Last administered on 10/07/18at 14:50; Start 10/07/18 at 15:00; Stop 10/07/18 at 15:59; Status DC Sodium Chloride 1,000 ml @ 999 mls/hr 1X ONCE IV ; Start 10/07/18 at 15:00; Stop 10/07/18 at 16:00; Status DC Albuterol Sulfate (Ventolin Neb Soln) 2.5 mg PRN Q2HR PRN NEB DYSPNEA; Start 10/07/18 at 15:00 Albuterol/ Ipratropium (Duoneb) 3 ml RTQID NEB Last administered on 10/10/18at 11:30; Start 10/07/18 at 16:00 Insulin Human Lispro (HumaLOG) 0-9 UNITS Q6HRS SQ Last administered on 10/10/18at 12:06; Start 10/07/18 at 18:00 Meropenem 500 mg/ Sodium Chloride 50 ml @ 100 mls/hr Q8HRS IV Last administered on 10/10/18at 14:14; Start 10/07/18 at 17:00 Midazolam HCl 100 ml @ 5 mls/hr CONT PRN IV SEE I/O RECORD Last administered on 10/10/18at 02:44; Start 10/08/18 at 04:15 Lactobacillus Rhamnosus (Culturelle) 1 cap BID PO ; Start 10/08/18 at 09:00; Stop 10/09/18 at 15:58; Status DC Famotidine (Pepcid Vial) 20 mg QHS IVP Last administered on 10/09/18at 20:58; Start 10/08/18 at 21:00 Linezolid/Dextrose 300 ml @ 300 mls/hr Q12HR IV Last administered on 10/09/18at 20:58; Start 10/08/18 at 11:30; Stop 10/10/18 at 07:24; Status DC Doxycycline Hyclate 100 mg/ Dextrose 100 ml @ 50 mls/hr Q12HR IV Last administered on 10/10/18at 08:44; Start 10/09/18 at 13:00 Aspirin (Ecotrin) 81 mg [id number] PO Last administered on 10/10/18at 08:44; Start 10/10/18 at 08:00 Active Scripts Active Reported Proair Hfa (Albuterol Sulfate) 8.5 Gm Hfa.aer.ad 1 Puff INH PRN Q6HRS PRN Oxazepam 30 Mg Capsule 30 Mg PO QHS Vitals/I & O Vital Sign - Last 24 Hours 10/09/18 10/09/18 10/09/18 10/09/18 15:00 16:00 16:00 16:28 Pulse 55 62 Resp 29 22 B/P (MAP) 120/64 (82) 140/68 (92) Pulse Ox 100 100 97 O2 Delivery Ventilator Mechanical Ventilator Ventilator Ventilator 10/09/18 10/09/18 10/09/18 10/09/18 17:00 18:00 19:00 19:26 Pulse 53 52 59 Resp 22 21 22 B/P (MAP) 131/56 (81) 122/50 (74) 140/70 (93) Pulse Ox 98 99 98 100 O2 Delivery Ventilator Ventilator Ventilator Ventilator 10/09/18 10/09/18 10/09/18 10/09/18 20:00 20:00 21:00 22:00 Temp 98.2 98.2 98.2 98.2 Pulse 52 52 58 Resp 22 22 22 B/P (MAP) 121/59 (79) 147/66 (93) 131/65 (87) Pulse Ox 97 98 99 O2 Delivery Ventilator Mechanical Ventilator Ventilator Ventilator 10/09/18 10/09/18 10/09/18 10/09/18 23:15 23:43 23:59 23:59 Temp 98.2 98.2 Pulse 54 52 Resp 22 22 B/P (MAP) 152/63 (92) 166/82 (110) Pulse Ox 100 99 99 O2 Delivery Ventilator Ventilator Ventilator Mechanical Ventilator 10/10/18 10/10/18 10/10/18 10/10/18 01:00 02:00 03:00 03:00 Pulse 54 62 54 Resp 23 22 22 B/P (MAP) 173/62 (99) 173/62 (99) 154/63 (93) Pulse Ox 99 99 99 99 O2 Delivery Ventilator Ventilator Ventilator Ventilator 10/10/18 10/10/18 10/10/18 10/10/18 04:00 04:00 05:00 06:00 Temp 98.1 98.1 Pulse 54 47 56 Resp 22 22 22 B/P (MAP) 113/48 (69) 94/45 (61) 116/61 (79) Pulse Ox 99 100 100 O2 Delivery Ventilator Mechanical Ventilator Ventilator Ventilator 10/10/18 10/10/18 10/10/18 10/10/18 07:00 07:34 07:45 08:19 Temp 98.7 98.7 Pulse 52 61 Resp 22 21 B/P (MAP) 118/68 (85) 124/72 (89) Pulse Ox 100 99 100 O2 Delivery Ventilator Ventilator Mechanical Ventilator Ventilator 10/10/18 10/10/18 10/10/18 10/10/18 09:00 10:00 10:15 11:00 Pulse 50 61 66 Resp 22 23 37 B/P (MAP) 118/51 (73) 139/61 (87) 117/53 (74) Pulse Ox 99 96 94 97 O2 Delivery Ventilator Ventilator Ventilator Ventilator 10/10/18 10/10/18 10/10/18 10/10/18 11:30 12:00 12:00 13:00 Temp 98.9 98.9 Pulse 55 52 Resp 27 22 B/P (MAP) 106/46 (66) 110/52 (71) Pulse Ox 99 98 99 O2 Delivery Ventilator Mechanical Ventilator Ventilator Ventilator 10/10/18 10/10/18 13:53 14:00 Pulse 52 46 Resp 22 B/P (MAP) 100/47 (64) Pulse Ox 99 O2 Delivery Ventilator Intake and Output 10/09/18 10/09/18 10/10/18 15:00 23:00 07:00 Intake Total 425 ml 836 ml 250 ml Output Total 285 ml 280 ml 420 ml Balance 140 ml 556 ml -170 ml MORENO PEREZL K III DO October 10, 2018 14:44
[2018-10-10 14:55] LABS: CALCIUM 7.5 mg/dL (8.5-10.1); CREATININE 1.3 mg/dL (0.7-1.3); GFR 53.7; MAGNESIUM 1.9 mg/dL (1.8-2.4); POTASSIUM 4.8 mmol/L (3.5-5.1)
[2018-10-10] MEDS: FAMOTIDINE 20 MG/2 ML VIAL IVP SCH (21:23)
[2018-10-11] VITALS (24 sets, daily range): BP systolic 103–161; BP diastolic 46–76
[2018-10-11] MEDS: INSULIN LISPRO 300 UNITS/3 ML INSULN.PEN. SQ SCH ×4 (00:22→18:42)
[2018-10-11] MEDS: MEROPENEM 500 MG in IV NORMAL SALINE 50ML 50 ML IV SCH ×3 (05:50→22:20)
[2018-10-11] MEDS: HEPARIN for SUB-Q USE 5,000 UNIT/ML VIAL. SQ SCH ×3 (05:51→22:21)
[2018-10-11] MEDS: methylPREDNISolone SOD SUCC PF 40 MG/ML VIAL. IV SCH ×3 (05:56→22:21)
[2018-10-11 06:32] LABS: CALCIUM 7.2 mg/dL (8.5-10.1); CREATININE 1.2 mg/dL (0.7-1.3); GFR 58.9; POTASSIUM 4.6 mmol/L (3.5-5.1)
--- NOTE | 2018-10-11 07:01 | PDOC ---
Infectious Disease Note Subjective Subjective Remains intubated but alert some ROS ROS Unobtainable Vital Sign Vital Signs Vital Signs Date Time Temp Pulse Resp B/P (MAP) Pulse Ox O2 Delivery O2 Flow Rate FiO2 10/11/18 06:00 54 22 140/60 (86) 99 Ventilator 10/11/18 04:00 98.1 98.1 Physical Exam PHYSICAL EXAM GENERAL: intubated/more alert HENT: nml conj. PERRL. ETT, OGT LUNGS: Clear CV: S1 S2 regular ABD: Soft, BS present, obese : Jeffers in place EXT: 1- 2+ edema lower extremities, bilaterally. No cyanosis. 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 RIJ (10/07) clean Labs Lab Laboratory Tests Test 10/10/18 10:00 10/10/18 11:56 10/10/18 18:38 10/11/18 00:19 O2 Saturation 93 % (92-99) Arterial Blood pH 7.25 (7.35-7.45) Arterial Blood pCO2 at Patient Temp 63 mmHg (35-46) Arterial Blood pO2 at Patient Temp 77 mmHg (65-108) Arterial Blood HCO3 27 mmol/L (21-28) Arterial Blood Base Excess -1 mmol/L (-3-3) FiO2 35 Glucose (Fingerstick) 167 mg/dL (70-99) 254 mg/dL (70-99) 194 mg/dL (70-99) Test 10/11/18 05:48 10/11/18 05:50 Glucose (Fingerstick) 220 mg/dL (70-99) Sodium Level 145 mmol/L (136-145) Potassium Level 4.6 mmol/L (3.5-5.1) Chloride Level 111 mmol/L (98-107) Carbon Dioxide Level 26 mmol/L (21-32) Anion Gap 8 (6-14) Blood Urea Nitrogen 42 mg/dL (8-26) Creatinine 1.2 mg/dL (0.7-1.3) Estimated GFR (Cockcroft-Gault) 58.9 Glucose Level 243 mg/dL (70-99) Calcium Level 7.2 mg/dL (8.5-10.1) Micro Microbiology 10/07/18 Blood Culture - Preliminary, Resulted NO GROWTH AFTER 2 DAYS Objective Assessment Fever -better Pneumonia + mycoplasma 10/08 - on Doxy 10/09 UTI, POA UC pending Lactic acidosis Allergy PCN w/ hives and throat swelling; erythromycin w/ hives. Leukocytosis - on steroids Hypotension, now off Levophed gtt Acute encephalopathy - imrpoving Acute respiratory failure s/p intubation ALEX - better COPD, O2 dependent Plan Plan of Care Continue meropenem (10/07) for now Cont doxy (10/09) One time dose vancomycin, 10/07, d/c Zyvox (10/08)/levoflox Steroids Sputum/urine cultures pending BC NGTD Strep Ur Ag and legionella pending Maintain aspiration precautions D/w nursing D/w BELKYS SHEETS MD October 11, 2018 07:01
--- NOTE | 2018-10-11 08:03 | RAD ---
Portable chest, 10/11/2018: HISTORY: Respiratory failure Comparison is made to a study from 10/10/2018. An NG tube extends into the stomach. A right jugular central venous catheter extends into the superior vena cava. The ET tube tip is not clearly visualized on the current exam, but appears to be in a similar position. The heart size is normal. There are hazy bibasilar opacities compatible with pleural fluid and mild underlying atelectasis/infiltrate. These appear unchanged. No new abnormality is detected. IMPRESSION: No significant change since yesterday's exam. Electronically signed by: Davis Ridley MD (10/11/2018 8:00 AM) [facility]
--- NOTE | 2018-10-11 08:25 | PDOC ---
PULMONARY PROGRESS NOTES Subjective PT FAILED CPAP YESTERDAY INCREASE WOB AND WORSENING HYPERCAPNIA Vitals Vital Signs Date Time Temp Pulse Resp B/P (MAP) Pulse Ox O2 Delivery O2 Flow Rate FiO2 10/11/18 06:00 54 22 140/60 (86) 99 Ventilator 10/11/18 04:00 98.1 98.1 General: Lethargic Lungs: Other (DECREASE BS) Cardiovascular: S1, S2 Abdomen: Soft Extremities: Other (trace edema) Skin: Warm Labs Laboratory Tests Test 10/09/18 10:27 10/09/18 12:21 10/09/18 17:47 10/09/18 23:34 O2 Saturation 93 % (92-99) Arterial Blood pH 7.30 (7.35-7.45) Arterial Blood pCO2 at Patient Temp 59 mmHg (35-46) Arterial Blood pO2 at Patient Temp 73 mmHg (65-108) Arterial Blood HCO3 28 mmol/L (21-28) Arterial Blood Base Excess 1 mmol/L (-3-3) FiO2 35 Glucose (Fingerstick) 181 mg/dL (70-99) 184 mg/dL (70-99) 196 mg/dL (70-99) Test 10/10/18 06:20 10/10/18 06:22 10/10/18 10:00 10/10/18 11:56 Sodium Level 142 mmol/L (136-145) Potassium Level 4.8 mmol/L (3.5-5.1) Chloride Level 107 mmol/L (98-107) Carbon Dioxide Level 27 mmol/L (21-32) Anion Gap 8 (6-14) Blood Urea Nitrogen 36 mg/dL (8-26) Creatinine 1.3 mg/dL (0.7-1.3) Estimated GFR (Cockcroft-Gault) 53.7 Glucose Level 221 mg/dL (70-99) Calcium Level 7.5 mg/dL (8.5-10.1) Magnesium Level 1.9 mg/dL (1.8-2.4) Triglycerides Level 103 mg/dL (0-150) Cholesterol Level 123 mg/dL (0-200) LDL Cholesterol, Calculated 70 mg/dL (0-100) VLDL Cholesterol, Calculated 21 mg/dL (0-40) Non-HDL Cholesterol Calculated 91 mg/dL (0-129) HDL Cholesterol 32 mg/dL (40-60) Cholesterol/HDL Ratio 3.8 Glucose (Fingerstick) 205 mg/dL (70-99) 167 mg/dL (70-99) O2 Saturation 93 % (92-99) Arterial Blood pH 7.25 (7.35-7.45) Arterial Blood pCO2 at Patient Temp 63 mmHg (35-46) Arterial Blood pO2 at Patient Temp 77 mmHg (65-108) Arterial Blood HCO3 27 mmol/L (21-28) Arterial Blood Base Excess -1 mmol/L (-3-3) FiO2 35 Test 10/10/18 18:38 10/11/18 00:19 10/11/18 05:48 10/11/18 05:50 Glucose (Fingerstick) 254 mg/dL (70-99) 194 mg/dL (70-99) 220 mg/dL (70-99) Sodium Level 145 mmol/L (136-145) Potassium Level 4.6 mmol/L (3.5-5.1) Chloride Level 111 mmol/L (98-107) Carbon Dioxide Level 26 mmol/L (21-32) Anion Gap 8 (6-14) Blood Urea Nitrogen 42 mg/dL (8-26) Creatinine 1.2 mg/dL (0.7-1.3) Estimated GFR (Cockcroft-Gault) 58.9 Glucose Level 243 mg/dL (70-99) Calcium Level 7.2 mg/dL (8.5-10.1) Laboratory Tests Test 10/10/18 10:00 10/10/18 11:56 10/10/18 18:38 10/11/18 00:19 O2 Saturation 93 % (92-99) Arterial Blood pH 7.25 (7.35-7.45) Arterial Blood pCO2 at Patient Temp 63 mmHg (35-46) Arterial Blood pO2 at Patient Temp 77 mmHg (65-108) Arterial Blood HCO3 27 mmol/L (21-28) Arterial Blood Base Excess -1 mmol/L (-3-3) FiO2 35 Glucose (Fingerstick) 167 mg/dL (70-99) 254 mg/dL (70-99) 194 mg/dL (70-99) Test 10/11/18 05:48 10/11/18 05:50 Glucose (Fingerstick) 220 mg/dL (70-99) Sodium Level 145 mmol/L (136-145) Potassium Level 4.6 mmol/L (3.5-5.1) Chloride Level 111 mmol/L (98-107) Carbon Dioxide Level 26 mmol/L (21-32) Anion Gap 8 (6-14) Blood Urea Nitrogen 42 mg/dL (8-26) Creatinine 1.2 mg/dL (0.7-1.3) Estimated GFR (Cockcroft-Gault) 58.9 Glucose Level 243 mg/dL (70-99) Calcium Level 7.2 mg/dL (8.5-10.1) Medications Active Scripts Medications Dose Route/Sig Max Daily Dose Days Date Category Proair Hfa (Albuterol Sulfate) 8.5 Gm Hfa.aer.ad 1 Puff INH PRN Q6HRS PRN 10/07/18 Reported Oxazepam 30 Mg Capsule 30 Mg PO QHS 10/07/18 Reported Comments CXR 10/11 bilateral infiltrates Impression . 1. Acute on chronic hypoxemic/ hypercapnic respiratory failure. 2. Acute exacerbation of chronic obstructive pulmonary disease. 3. Abnormal x-ray compatible with pneumonia,, cannot exclude CHF 4. Gram-negative, possible gram-positive pneumonia. 5. No history given of diabetes, hypertension or renal failure. 6. History of alcohol intake, discontinued approximately 4 years ago. 7. Possible sepsis. 8. Positive mycoplasma serology 9. EF 40% IMPRESSION: 1. Diffuse interstitial changes, increased from prior study. Stimulated increasing interstitial edema or atypical pneumonia. 2. Left basilar consolidation with moderate size left pleural effusion, increased from prior study. Plan . CPAP TRIAL AGAIN TODAY ABG NOTED YESTERDAY CONTINUE ANTIBX PER ID EXTRA IV LASIX TODAY FEVER IMPROVED STEROIDS DIURESIS DVT GI PROPH ENTERAL FEEDING DIFFICULT WEAN/ LONG H/O OF TOBACCO USE D/W ENTIRE FAMILY REGARDING POOR PROGNOSIS AND ALTERNATE PLANS IF HE CONTINUES TO FAIL ENDER MUÑOZ MD October 11, 2018 08:25
[2018-10-11] MEDS: ASPIRIN ENTERIC COATED 81 MG TABLET.DR. PO SCH (08:36)
[2018-10-11] MEDS: DOXYCYCLINE HYCLATE 100 MG in IV DEXTROSE 5% 100ML 100 ML IV SCH ×2 (08:36→21:04)
[2018-10-11] MEDS ORDERED: FUROSEMIDE 40 MG/4 ML VIAL. IVP ONE (09:00)
[2018-10-11] MEDS: IPRATRPIUM/ALBUTEROL 0.5/2.5MG 3 ML NEBU. NEB SCH ×4 (09:10→19:48)
--- NOTE | 2018-10-11 10:21 | PDOC ---
PROGRESS NOTES Chief Complaint Chief Complaint Fulminant respiratory failure End-stage COPD Clinical pneumonia MORBID OBESITY Possible sepsis Noncompliance Pneumonia + mycoplasma 10/08 - on Doxy 10/09 History of Present Illness History of Present Illness Patient was seen and examined in the intensive care unit He is still on the assist control/20/500/35% with 5 of PEEP Discussed with the RN address goals of treatment failed BIPAP TRIAL 10/10 Maintain aspiration precautions 35 min cc time Vitals Vitals Vital Signs Date Time Temp Pulse Resp B/P (MAP) Pulse Ox O2 Delivery O2 Flow Rate FiO2 10/11/18 10:00 77 34 157/67 (97) 94 Ventilator 10/11/18 08:00 98.5 98.5 Physical Exam Physical Exam GENERAL: intubated/more alert HENT: nml conj. PERRL. ETT, OGT LUNGS: Clear CV: S1 S2 regular ABD: Soft, BS present, obese : Jeffers in place EXT: 1- 2+ edema lower extremities, bilaterally. No cyanosis. Mitts SKIN: warm without rash FISHER EEL SPEAR: alert some RIJ (10/07) clean General: No acute distress Lungs: Other (DECREASE BS) Abdomen: Normal bowel sounds, Soft, No tenderness, No hepatosplenomegaly, No masses Extremities: No clubbing, No cyanosis, No edema, Normal pulses, No tenderness/swelling Skin: No rashes, No breakdown, No significant lesion Labs LABS BERHANE DAVIS DO ORDERED: SPUTUM CULTURE Procedure Result GRAM STAIN WHITE BLOOD CELLS Final Few GRAM STAIN EPITHELIAL CELLS Final Few GRAM STAIN RESULT 1 Final Comment Few gram positive rods. GRAM STAIN RESULT 2 Final Comment Few gram negative rods. GRAM STAIN RESULT 3 Final Comment Few gram positive cocci GRAM STAIN EVALUATION Final Comment This specimen is of good quality and is acceptable for routine bacterial culture. Performed at: [facility] - [facility] [address], [place], [place] [id number] Monkey Breeder: MICHELE Cesar MD, Phone: [phone] SPUTUM CULTURE-LC Portable chest, 10/11/2018: HISTORY: Respiratory failure Comparison is made to a study from 10/10/2018. An NG tube extends into the stomach. A right jugular central venous catheter extends into the superior vena cava. The ET tube tip is not clearly visualized on the current exam, but appears to be in a similar position. The heart size is normal. There are hazy bibasilar opacities compatible with pleural fluid and mild underlying atelectasis/infiltrate. These appear unchanged. No new abnormality is detected. IMPRESSION: No significant change since yesterday's exam. Electronically signed by: Davis Ridley MD (10/11/2018 8:00 AM) [facility] [place] Tests Test 10/10/18 11:56 10/10/18 18:38 10/11/18 00:19 10/11/18 05:48 Glucose (Fingerstick) 167 mg/dL (70-99) 254 mg/dL (70-99) 194 mg/dL (70-99) 220 mg/dL (70-99) Test 10/11/18 05:50 Sodium Level 145 mmol/L (136-145) Potassium Level 4.6 mmol/L (3.5-5.1) Chloride Level 111 mmol/L (98-107) Carbon Dioxide Level 26 mmol/L (21-32) Anion Gap 8 (6-14) Blood Urea Nitrogen 42 mg/dL (8-26) Creatinine 1.2 mg/dL (0.7-1.3) Estimated GFR (Cockcroft-Gault) 58.9 Glucose Level 243 mg/dL (70-99) Calcium Level 7.2 mg/dL (8.5-10.1) Assessment and Plan Assessmemt and Plan Problems Medical Problems: (1) Acute respiratory distress Status: Acute (2) CAP (community acquired pneumonia) Status: Acute (3) CHF (congestive heart failure) Status: Acute (4) Elevated liver function tests Status: Acute (5) Elevated troponin I level Status: Acute (6) Hyperkalemia Status: Acute (7) Renal insufficiency Status: Acute (8) Sepsis Status: Acute (9) Unresponsiveness Status: Acute (10) Urinary tract infection Status: Acute Comment Review of Relevant I have reviewed the following items akbar (where applicable) has been applied. Labs Laboratory Tests Test 10/09/18 10:27 10/09/18 12:21 10/09/18 17:47 10/09/18 23:34 O2 Saturation 93 % (92-99) Arterial Blood pH 7.30 (7.35-7.45) Arterial Blood pCO2 at Patient Temp 59 mmHg (35-46) Arterial Blood pO2 at Patient Temp 73 mmHg (65-108) Arterial Blood HCO3 28 mmol/L (21-28) Arterial Blood Base Excess 1 mmol/L (-3-3) FiO2 35 Glucose (Fingerstick) 181 mg/dL (70-99) 184 mg/dL (70-99) 196 mg/dL (70-99) Test 10/10/18 06:20 10/10/18 06:22 10/10/18 10:00 10/10/18 11:56 Sodium Level 142 mmol/L (136-145) Potassium Level 4.8 mmol/L (3.5-5.1) Chloride Level 107 mmol/L (98-107) Carbon Dioxide Level 27 mmol/L (21-32) Anion Gap 8 (6-14) Blood Urea Nitrogen 36 mg/dL (8-26) Creatinine 1.3 mg/dL (0.7-1.3) Estimated GFR (Cockcroft-Gault) 53.7 Glucose Level 221 mg/dL (70-99) Calcium Level 7.5 mg/dL (8.5-10.1) Magnesium Level 1.9 mg/dL (1.8-2.4) Triglycerides Level 103 mg/dL (0-150) Cholesterol Level 123 mg/dL (0-200) LDL Cholesterol, Calculated 70 mg/dL (0-100) VLDL Cholesterol, Calculated 21 mg/dL (0-40) Non-HDL Cholesterol Calculated 91 mg/dL (0-129) HDL Cholesterol 32 mg/dL (40-60) Cholesterol/HDL Ratio 3.8 Glucose (Fingerstick) 205 mg/dL (70-99) 167 mg/dL (70-99) O2 Saturation 93 % (92-99) Arterial Blood pH 7.25 (7.35-7.45) Arterial Blood pCO2 at Patient Temp 63 mmHg (35-46) Arterial Blood pO2 at Patient Temp 77 mmHg (65-108) Arterial Blood HCO3 27 mmol/L (21-28) Arterial Blood Base Excess -1 mmol/L (-3-3) FiO2 35 Test 10/10/18 18:38 10/11/18 00:19 10/11/18 05:48 10/11/18 05:50 Glucose (Fingerstick) 254 mg/dL (70-99) 194 mg/dL (70-99) 220 mg/dL (70-99) Sodium Level 145 mmol/L (136-145) Potassium Level 4.6 mmol/L (3.5-5.1) Chloride Level 111 mmol/L (98-107) Carbon Dioxide Level 26 mmol/L (21-32) Anion Gap 8 (6-14) Blood Urea Nitrogen 42 mg/dL (8-26) Creatinine 1.2 mg/dL (0.7-1.3) Estimated GFR (Cockcroft-Gault) 58.9 Glucose Level 243 mg/dL (70-99) Calcium Level 7.2 mg/dL (8.5-10.1) Laboratory Tests Test 10/10/18 11:56 10/10/18 18:38 10/11/18 00:19 10/11/18 05:48 Glucose (Fingerstick) 167 mg/dL (70-99) 254 mg/dL (70-99) 194 mg/dL (70-99) 220 mg/dL (70-99) Test 10/11/18 05:50 Sodium Level 145 mmol/L (136-145) Potassium Level 4.6 mmol/L (3.5-5.1) Chloride Level 111 mmol/L (98-107) Carbon Dioxide Level 26 mmol/L (21-32) Anion Gap 8 (6-14) Blood Urea Nitrogen 42 mg/dL (8-26) Creatinine 1.2 mg/dL (0.7-1.3) Estimated GFR (Cockcroft-Gault) 58.9 Glucose Level 243 mg/dL (70-99) Calcium Level 7.2 mg/dL (8.5-10.1) Microbiology 10/07/18 Blood Culture - Preliminary, Resulted NO GROWTH AFTER 3 DAYS 10/08/18 - Final, Resulted 10/08/18 - Final, Resulted 10/08/18 - Final, Resulted 10/08/18 - Final, Resulted 10/08/18 - Final, Resulted 10/08/18 Gram Stain Evaluation - Final, Resulted 10/08/18 Sputum Culture, Resulted Pending 10/07/18 Urine Culture - Final, Complete 10/07/18 Urine Culture Result 1 (ELEN) - Final, Complete 10/07/18 Antimicrobic Susceptibility - Final, Complete Medications Current Medications Sodium Chloride 1,000 ml @ 1,000 mls/hr Q1H IV Last administered on 10/07/18at 11:27; Start 10/07/18 at 10:52; Stop 10/07/18 at 11:51; Status DC Midazolam HCl 100 ml @ 1 mls/hr 1X ONCE IV Last administered on 10/07/18at 11:20; Start 10/07/18 at 11:15; Stop 10/09/18 at 15:55; Status DC Etomidate (Amidate) 20 mg STK-MED ONCE IV ; Start 10/07/18 at 11:13; Stop 10/07/18 at 11:14; Status DC Succinylcholine Chloride (Anectine) 200 mg STK-MED ONCE .ROUTE ; Start 10/07/18 at 11:13; Stop 10/07/18 at 11:14; Status DC Etomidate (Amidate) 20 mg 1X ONCE IV Last administered on 10/07/18at 11:01; Start 10/07/18 at 11:30; Stop 10/07/18 at 11:33; Status DC Succinylcholine Chloride (Anectine) 100 mg 1X ONCE IV Last administered on 10/07/18at 11:01; Start 10/07/18 at 11:30; Stop 10/07/18 at 11:33; Status DC Albuterol Sulfate (Ventolin Neb Soln) 10 mg 1X ONCE CONT NEB ; Start 10/07/18 at 12:00; Stop 10/07/18 at 12:01; Status DC Methylprednisolone Sodium Succinate (SOLU-Medrol 125MG VIAL) 125 mg 1X ONCE IV Last administered on 10/07/18at 11:52; Start 10/07/18 at 12:00; Stop 10/07/18 at 12:01; Status DC Vancomycin HCl 250 ml @ 250 mls/hr 1X ONCE IV Last administered on 10/07/18at 12:27; Start 10/07/18 at 12:00; Stop 10/07/18 at 12:59; Status DC Levofloxacin/ Dextrose 150 ml @ 100 mls/hr 1X ONCE IV Last administered on 10/07/18at 12:28; Start 10/07/18 at 12:00; Stop 10/07/18 at 13:29; Status DC Sodium Chloride 1,000 ml @ 1,000 mls/hr 1X ONCE IV Last administered on 10/07/18at 12:57; Start 10/07/18 at 12:45; Stop 10/07/18 at 13:44; Status DC Sodium Chloride 1,000 ml @ 1,000 mls/hr 1X ONCE IV Last administered on 10/07/18at 12:58; Start 10/07/18 at 12:45; Stop 10/07/18 at 13:44; Status DC Dextrose (Dextrose 50%-Water Syringe) 25 gm 1X ONCE IV Last administered on 10/07/18at 12:59; Start 10/07/18 at 12:45; Stop 10/07/18 at 12:46; Status DC Insulin Human Regular (HumuLIN R VIAL) 10 unit 1X ONCE IV Last administered on 10/07/18at 13:00; Start 10/07/18 at 12:45; Stop 10/07/18 at 12:46; Status DC Sodium Bicarbonate (Sodium Bicarb Adult 8.4% Syr) 50 meq 1X ONCE IV Last adm inistered on 10/07/18at 13:07; Start 10/07/18 at 12:45; Stop 10/07/18 at 12:46; Status DC Sodium Chloride 1,000 ml @ 100 mls/hr Q10H IV ; Start 10/07/18 at 16:00; Stop 10/07/18 at 16:00; Status DC Pantoprazole Sodium (PROTONIX VIAL for IV PUSH) 40 mg DAILYAC IVP Last administered on 10/08/18at 08:25; Start 10/07/18 at 13:30; Stop 10/08/18 at 09:54; Status DC Pantoprazole Sodium (PROTONIX VIAL for IV PUSH) 40 mg 1X ONCE IVP ; Start 10/07/18 at 12:45; Stop 10/07/18 at 12:46; Status UNV Heparin Sodium (Porcine) (Heparin Sodium) 5,000 unit Q8HRS SQ Last administered on 10/11/18at 05:51; Start 10/07/18 at 14:00 Levofloxacin/ Dextrose (Levaquin Per Pharmacy) 1 each PRN DAILY PRN MC SEE COMMENTS; Start 10/07/18 at 12:45; Stop 10/08/18 at 07:33; Status DC Insulin Human Lispro (HumaLOG) 0-9 UNITS TIDWMEALS SQ ; Start 10/07/18 at 17:00; Stop 10/07/18 at 17:00; Status DC Dextrose (Dextrose 50%-Water Syringe) 12.5 gm PRN Q15MIN PRN IV SEE COMMENTS; Start 10/07/18 at 12:45 Albuterol/ Ipratropium (Duoneb) 3 ml RTQID NEB ; Start 10/07/18 at 16:00; Status Cancel Methylprednisolone Sodium Succinate (SOLU-Medrol 40MG VIAL) 40 mg Q8HRS IV Last administered on 10/11/18at 05:56; Start 10/07/18 at 22:00 Acetaminophen (Tylenol) 650 mg PRN Q6HRS PRN PEG MILD PAIN / TEMP Last administered on 10/08/18at 08:25; Start 10/07/18 at 12:45 Morphine Sulfate (Morphine Sulfate) 2 mg PRN Q2HR PRN IV PAIN Last administered on 10/09/18at 00:04; Start 10/07/18 at 12:45 Ondansetron HCl (Zofran) 4 mg PRN Q6HRS PRN IV NAUSEA/VOMITING; Start 10/07/18 at 12:45 Norepinephrine Bitartrate 250 ml @ 1.875 mls/ hr CONT PRN IV SEE I/O RECORD Last administered on 10/07/18at 14:01; Start 10/07/18 at 14:00 Sodium Chloride 1,000 ml @ 150 mls/hr Q6H40M IV Last administered on 10/08/18at 15:09; Start 10/07/18 at 14:00; Stop 10/08/18 at 13:59; Status DC Calcium Gluconate (Calcium Gluconate) 1,000 mg 1X ONCE IVP ; Start 10/07/18 at 13:30; Stop 10/07/18 at 13:31; Status Cancel Sodium Polystyrene Sulfonate (Kayexalate) 15 gm 1X ONCE PO Last administered o n 10/07/18at 14:10; Start 10/07/18 at 13:30; Stop 10/07/18 at 13:31; Status DC Pantoprazole Sodium (PROTONIX VIAL for IV PUSH) 40 mg STK-MED ONCE IVP ; Start 10/07/18 at 12:52; Stop 10/07/18 at 12:55; Status DC Levofloxacin/ Dextrose 150 ml @ 100 mls/hr Q48H IV ; Start 10/09/18 at 12:00; Stop 10/09/18 at 12:00; Status DC Calcium Gluconate 1000 mg/Sodium Chloride 110 ml @ 220 mls/hr 1X ONCE IV Last administered on 10/07/18at 14:23; Start 10/07/18 at 15:00; Stop 10/07/18 at 15:29; Status DC Sodium Chloride 1,000 ml @ 1,000 mls/hr 1X ONCE IV Last administered on 10/07/18at 14:50; Start 10/07/18 at 15:00; Stop 10/07/18 at 15:59; Status DC Sodium Chloride 1,000 ml @ 999 mls/hr 1X ONCE IV ; Start 10/07/18 at 15:00; Stop 10/07/18 at 16:00; Status DC Albuterol Sulfate (Ventolin Neb Soln) 2.5 mg PRN Q2HR PRN NEB DYSPNEA; Start 10/07/18 at 15:00 Albuterol/ Ipratropium (Duoneb) 3 ml RTQID NEB Last administered on 10/11/18at 09:10; Start 10/07/18 at 16:00 Insulin Human Lispro (HumaLOG) 0-9 UNITS Q6HRS SQ Last administered on 10/11/18at 05:52; Start 10/07/18 at 18:00 Meropenem 500 mg/ Sodium Chloride 50 ml @ 100 mls/hr Q8HRS IV Last administered on 10/11/18at 05:50; Start 10/07/18 at 17:00 Midazolam HCl 100 ml @ 5 mls/hr CONT PRN IV SEE I/O RECORD Last administered on 10/10/18at 20:28; Start 10/08/18 at 04:15 Lactobacillus Rhamnosus (Culturelle) 1 cap BID PO ; Start 10/08/18 at 09:00; Stop 10/09/18 at 15:58; Status DC Famotidine (Pepcid Vial) 20 mg QHS IVP Last administered on 10/10/18at 21:23; Start 10/08/18 at 21:00 Linezolid/Dextrose 300 ml @ 300 mls/hr Q12HR IV Last administered on 10/09/18at 20:58; Start 10/08/18 at 11:30; Stop 10/10/18 at 07:24; Status DC Doxycycline Hyclate 100 mg/ Dextrose 100 ml @ 50 mls/hr Q12HR IV Last administered on 10/11/18 08:36; Start 10/09/18 at 13:00 Aspirin (Ecotrin) 81 mg [id number] PO Last administered on 10/11/18at 08:36; Start 10/10/18 at 08:00 Furosemide (Lasix) 40 mg 1X ONCE IVP Last administered on 10/11/18 08:36; Start 10/11/18 at 09:00; Stop 10/11/18 at 09:01; Status DC Active Scripts Active Reported Proair Hfa (Albuterol Sulfate) 8.5 Gm Hfa.aer.ad 1 Puff INH PRN Q6HRS PRN Oxazepam 30 Mg Capsule 30 Mg PO QHS Vitals/I & O Vital Sign - Last 24 Hours 10/10/18 10/10/18 10/10/18 10/10/18 11:00 11:30 12:00 12:00 Temp 98.9 98.9 Pulse 66 55 Resp 37 27 B/P (MAP) 117/53 (74) 106/46 (66) Pulse Ox 97 99 98 O2 Delivery Ventilator Ventilator Mechanical Ventilator Ventilator 10/10/18 10/10/18 10/10/18 10/10/18 13:00 13:30 13:53 14:00 Pulse 52 52 46 Resp 22 22 B/P (MAP) 110/52 (71) 100/47 (64) Pulse Ox 99 96 99 O2 Delivery Ventilator Ventilator Ventilator 510/10/18 10/10/18 10/10/18 15:00 15:26 16:00 16:00 Temp 98.3 98.3 Pulse 45 47 Resp 22 22 B/P (MAP) 121/57 (78) 137/53 (81) Pulse Ox 97 97 100 O2 Delivery Ventilator Ventilator Mechanical Ventilator Ventilator 10/10/18 10/10/18 10/10/18 10/10/18 17:00 17:40 18:00 19:00 Pulse 48 51 56 Resp 22 22 28 B/P (MAP) 86/45 (59) 116/54 (74) 108/45 (66) Pulse Ox 100 100 100 100 O2 Delivery Ventilator Ventilator Ventilator Ventilator 10/10/18 10/10/18 10/10/18 10/10/18 19:49 20:00 20:00 21:00 Temp 97.6 97.6 Pulse 53 53 Resp 22 B/P (MAP) 119/52 (74) 120/49 (72) Pulse Ox 97 100 100 O2 Delivery Ventilator Mechanical Ventilator Ventilator Ventilator 10/10/18 10/10/18 10/10/18 10/10/18 22:00 22:20 23:45 23:59 Pulse 58 55 Resp 20 20 B/P (MAP) 110/55 (73) 114/58 (76) Pulse Ox 100 97 100 O2 Delivery Ventilator Ventilator Ventilator Mechanical Ventilator 10/11/18 10/11/18 10/11/18 10/11/18 00:48 01:12 02:00 02:40 Temp 98.3 98.3 Pulse 52 42 Resp 20 20 B/P (MAP) 115/52 (73) 110/51 (70) Pulse Ox 97 100 98 99 O2 Delivery Ventilator Ventilator Ventilator Ventilator 10/11/18 10/11/18 10/11/18 10/11/18 03:00 04:00 04:00 05:00 Temp 98.1 98.1 Pulse 55 69 50 Resp 21 21 22 B/P (MAP) 126/53 (77) 141/73 (95) 147/60 (89) Pulse Ox 99 98 99 O2 Delivery Ventilator Ventilator Mechanical Ventilator Ventilator 10/11/18 10/11/18 10/11/18 10/11/18 05:50 06:00 07:00 08:00 Pulse 54 52 Resp 22 22 B/P (MAP) 140/60 (86) 138/66 (90) Pulse Ox 99 99 98 O2 Delivery Ventilator Ventilator Ventilator Mechanical Ventilator 10/11/18 10/11/18 10/11/18 10/11/18 08:00 09:00 09:07 09:30 Temp 98.5 98.5 Pulse 62 64 Resp 22 22 B/P (MAP) 148/76 (100) 156/57 (90) Pulse Ox 99 100 99 95 O2 Delivery Ventilator Ventilator Ventilator Ventilator 10/11/18 10:00 Pulse 77 Resp 34 B/P (MAP) 157/67 (97) Pulse Ox 94 O2 Delivery Ventilator Intake and Output 10/10/18 10/10/18 10/11/18 15:00 23:00 07:00 Intake Total 400 ml 1090 ml 522 ml Output Total 365 ml 255 ml 250 ml Balance 35 ml 835 ml 272 ml SANDRA OROURKE MD October 11, 2018 10:20
[2018-10-11 10:25] LABS: BASE EXCESS ABG -1 mmol/L (-3-3); HCO3 ABG 29 mmol/L (21-28); PO2 ABG 67 mmHg (65-108); SAT O2 ABG 89 % (92-99)
[2018-10-11] MEDS: MORPHINE SULFATE 2 MG/ML VIAL. IV PRN ×2 (11:01→15:56)
[2018-10-11 11:29] LABS: FIO2 ABG 35; PCO2 ABG 77 mmHg (35-46)
--- NOTE | 2018-10-11 12:14 | PDOC ---
CARDIO Progress Notes Date and Time Date of Service 10/11/18 Time of Evaluation 1210 Subjective Subjective: Other (intubated/sedated) Vitals Vitals Vital Signs Date Time Temp Pulse Resp B/P (MAP) Pulse Ox O2 Delivery O2 Flow Rate FiO2 10/11/18 11:11 66 55 161/67 (98) 98 Ventilator 10/11/18 08:00 98.5 98.5 Weight Weight [ ] Input and Output Intake and Output Intake and Output 10/11/18 06:59 Intake Total 2012 ml Output Total 970 ml Balance 1042 ml IV Total 491 ml Tube Feeding 1246 ml Other 275 ml Output Urine Total 970 ml Laboratory Labs Laboratory Tests Test 10/10/18 18:38 10/11/18 00:19 10/11/18 05:48 10/11/18 05:50 Glucose (Fingerstick) 254 mg/dL (70-99) 194 mg/dL (70-99) 220 mg/dL (70-99) Sodium Level 145 mmol/L (136-145) Potassium Level 4.6 mmol/L (3.5-5.1) Chloride Level 111 mmol/L (98-107) Carbon Dioxide Level 26 mmol/L (21-32) Anion Gap 8 (6-14) Blood Urea Nitrogen 42 mg/dL (8-26) Creatinine 1.2 mg/dL (0.7-1.3) Estimated GFR (Cockcroft-Gault) 58.9 Glucose Level 243 mg/dL (70-99) Calcium Level 7.2 mg/dL (8.5-10.1) Test 10/11/18 10:20 10/11/18 11:34 O2 Saturation 89 % (92-99) Arterial Blood pH 7.20 (7.35-7.45) Arterial Blood pCO2 at Patient Temp 77 mmHg (35-46) Arterial Blood pO2 at Patient Temp 67 mmHg (65-108) Arterial Blood HCO3 29 mmol/L (21-28) Arterial Blood Base Excess -1 mmol/L (-3-3) FiO2 35 Glucose (Fingerstick) 191 mg/dL (70-99) Microbiology Micro Microbiology 10/07/18 Blood Culture - Preliminary, Resulted NO GROWTH AFTER 3 DAYS 10/08/18 - Final, Resulted 10/08/18 - Final, Resulted 10/08/18 - Final, Resulted 10/08/18 - Final, Resulted 10/08/18 - Final, Resulted 10/08/18 Gram Stain Evaluation - Final, Resulted 10/08/18 Sputum Culture, Resulted Pending 10/07/18 Urine Culture - Final, Complete 10/07/18 Urine Culture Result 1 (ELEN) - Final, Complete 10/07/18 Antimicrobic Susceptibility - Final, Complete Physical Exam HEENT: Neck Supple W Full Motion Chest: Symmetric LUNGS: Other (mechanical vent, basilar crackles) Heart: S1S2, RRR (SR/SB), other (distant heart tones) Abdomen: Soft N/T, Other (soft) Extremities: Other (1-2+ bilateral LE pitting edema) Neurology: other (sedated) Assessment Assessment 1. Acute respiratory failure with AECOPD, CHF, PNA; s/p intubation. Poor trail again today. 2. NSTEMI; peak 0.8. Most probably type II, demand ischemia 3. Acute on chronic systolic HF 4. Leukocytosis, lactic acidosis, ? sepsis. 5. PNA, UTI, fevers 6. ALEX; improved 7. Cardiomyopathy; echo showed LVEF 40% with global hypokinesis 8. Hyperkalemia, resolved 9. H/o CVA 10. Bradycardia, sinus. No pauses/blocks 11. Hypertension Recommendations Avoid AV mc blocking agents Diuresis Antibiotics as per ID Add ACEi Palliative care consulted to address goals of care JESSICA CORREIA APRN October 11, 2018 12:14
--- NOTE | 2018-10-11 12:38 | PDOC2 ---
PALLIATIVE CARE Palliative Care Note Palliative Care Consult requested by Dr. Sanon to address goals of care. Medical Assessment per medical record; 1. Acute on chronic hypoxemic/ hypercapnic respiratory failure. 2. Acute exacerbation of chronic obstructive pulmonary disease. 3. Abnormal x-ray compatible with pneumonia,, cannot exclude CHF 4. Gram-negative, possible gram-positive pneumonia. 5. No history given of diabetes, hypertension or renal failure. 6. History of alcohol intake, discontinued approximately 4 years ago. 7. Possible sepsis. 8. Positive mycoplasma serology 9. EF 40% Remains on Vent. CPAP trials failed again today. Spoke with daughter Apple. She and her mother plan to visit later today. They would like other family members involved in meeting. Plan meeting tomorrow--time to be determined. Code Status; Full Code. 1300 Spoke with Apple and her daughter. Plan family meeting tomorrow at 1100 SHEBA GAITAN October 11, 2018 12:38
[2018-10-11] MEDS: LISINOPRIL 10 MG TABLET PO SCH (14:59)
[2018-10-11] MEDS: MIDAZOLAM 100mg/100ml NS BAG 100 ML IV PRN (16:46)
--- NOTE | 2018-10-11 19:05 | NUR ---
Did weaning trial with patient. Versed was turned off in advance. During weaning trial patient was able to keep 02 sats above 92. Blood pressure however spiked to 170's over 90's, and pt became tachycardic. Dr. Sanon does not think that patient is able to be weaned. Dacia Penaloza consulted and talked to , daughter, and granddaughter. No decision made at this time as far as palliative care goes. Patient family wants to speak again at 11 am on 10/12 after they've discussed ideas. They also want to try another wean trial 10/12. Lilibeth discussed further with them about patient's respiratory status.
[2018-10-11] MEDS: FAMOTIDINE 20 MG/2 ML VIAL IVP SCH (21:04)
[2018-10-12] VITALS (23 sets, daily range): BP systolic 67–183; BP diastolic 43–77
[2018-10-12] MEDS: INSULIN LISPRO 300 UNITS/3 ML INSULN.PEN. SQ SCH ×5 (00:35→23:57)
[2018-10-12] MEDS: methylPREDNISolone SOD SUCC PF 40 MG/ML VIAL. IV SCH ×3 (05:51→22:10)
[2018-10-12] MEDS: HEPARIN for SUB-Q USE 5,000 UNIT/ML VIAL. SQ SCH ×3 (05:53→22:10)
[2018-10-12] MEDS: MEROPENEM 500 MG in IV NORMAL SALINE 50ML 50 ML IV SCH ×3 (05:58→22:08)
[2018-10-12 06:01] LABS: BASO % 0 % (0-3); EOS % 0 % (0-3); HEMATOCRIT 37.3 % (39.0-53.0); HEMOGLOBIN 11.8 g/dL (13.0-17.5); LYMPH # 0.6 x10^3/uL (1.0-4.8); LYMPH % 6 % (24-48); MEAN CORPUSCULAR HEMOGLOBIN 29 pg (25-35); MEAN CORPUSCULAR HGB CONC 32 g/dL (31-37); MEAN CORPUSCULAR VOLUME 91 fL (79-100); MONO # 0.6 x10^3/uL (0.0-1.1); MONO % 7 % (0-9); NEUT # 8.6 x10^3uL (1.8-7.7); NEUT % 87 % (31-73); PLATELET COUNT 144 x10^3/uL (140-400); RED BLOOD COUNT 4.08 x10^6/uL (4.30-5.70); RED CELL DISTRIBUTION WIDTH 16.7 % (11.5-14.5); WHITE BLOOD COUNT 9.9 x10^3/uL (4.0-11.0)
[2018-10-12 06:16] LABS: ALBUMIN 2.4 g/dL (3.4-5.0); ALBUMIN/GLOBULIN RATIO 0.8 (1.0-1.7); CALCIUM 7.9 mg/dL (8.5-10.1); CREATININE 1.3 mg/dL (0.7-1.3); GFR 53.7; TOTAL BILIRUBIN 0.6 mg/dL (0.2-1.0); TOTAL PROTEIN 5.6 g/dL (6.4-8.2)
[2018-10-12 06:32] LABS: POTASSIUM 5.2 mmol/L (3.5-5.1)
[2018-10-12] MEDS: IPRATRPIUM/ALBUTEROL 0.5/2.5MG 3 ML NEBU. NEB SCH ×4 (06:57→19:45)
--- NOTE | 2018-10-12 07:00 | PDOC ---
Infectious Disease Note Subjective Subjective Remains intubated but more alert ROS ROS Unable to obtain Vital Sign Vital Signs Vital Signs Date Time Temp Pulse Resp B/P (MAP) Pulse Ox O2 Delivery O2 Flow Rate FiO2 10/12/18 06:00 55 20 138/57 (84) 96 Ventilator 10/12/18 04:00 98.2 98.2 Physical Exam PHYSICAL EXAM GENERAL: intubated/alert HENT: nml conj. PERRL. ETT, OGT LUNGS: Clear CV: S1 S2 regular ABD: Soft, BS present, obese : Jeffers in place EXT: 1- 2+ edema lower extremities, bilaterally. No cyanosis. Mitts SKIN: warm without rash RIB TRIM SEPARATOR: alert some RIJ (10/07) clean Labs Lab Laboratory Tests Test 10/11/18 10:20 10/11/18 11:34 10/12/18 00:33 10/12/18 05:16 O2 Saturation 89 % (92-99) Arterial Blood pH 7.20 (7.35-7.45) Arterial Blood pCO2 at Patient Temp 77 mmHg (35-46) Arterial Blood pO2 at Patient Temp 67 mmHg (65-108) Arterial Blood HCO3 29 mmol/L (21-28) Arterial Blood Base Excess -1 mmol/L (-3-3) FiO2 35 Glucose (Fingerstick) 191 mg/dL (70-99) 233 mg/dL (70-99) White Blood Count 9.9 x10^3/uL (4.0-11.0) Red Blood Count 4.08 x10^6/uL (4.30-5.70) Hemoglobin 11.8 g/dL (13.0-17.5) Hematocrit 37.3 % (39.0-53.0) Mean Corpuscular Volume 91 fL (79-100) Mean Corpuscular Hemoglobin 29 pg (25-35) Mean Corpuscular Hemoglobin Concent 32 g/dL (31-37) Red Cell Distribution Width 16.7 % (11.5-14.5) Platelet Count 144 x10^3/uL (140-400) Neutrophils (%) (Auto) 87 % (31-73) Lymphocytes (%) (Auto) 6 % (24-48) Monocytes (%) (Auto) 7 % (0-9) Eosinophils (%) (Auto) 0 % (0-3) Basophils (%) (Auto) 0 % (0-3) Neutrophils # (Auto) 8.6 x10^3uL (1.8-7.7) Lymphocytes # (Auto) 0.6 x10^3/uL (1.0-4.8) Monocytes # (Auto) 0.6 x10^3/uL (0.0-1.1) Eosinophils # (Auto) 0.0 x10^3/uL (0.0-0.7) Basophils # (Auto) 0.0 x10^3/uL (0.0-0.2) Sodium Level 143 mmol/L (136-145) Potassium Level 5.2 mmol/L (3.5-5.1) Chloride Level 107 mmol/L (98-107) Carbon Dioxide Level 31 mmol/L (21-32) Anion Gap 5 (6-14) Blood Urea Nitrogen 52 mg/dL (8-26) Creatinine 1.3 mg/dL (0.7-1.3) Estimated GFR (Cockcroft-Gault) 53.7 BUN/Creatinine Ratio 40 (6-20) Glucose Level 305 mg/dL (70-99) Calcium Level 7.9 mg/dL (8.5-10.1) Total Bilirubin 0.6 mg/dL (0.2-1.0) Aspartate Amino Transf (AST/SGOT) 20 U/L (15-37) Alanine Aminotransferase (ALT/SGPT) 72 U/L (16-63) Alkaline Phosphatase 49 U/L (46-116) Total Protein 5.6 g/dL (6.4-8.2) Albumin 2.4 g/dL (3.4-5.0) Albumin/Globulin Ratio 0.8 (1.0-1.7) Test 10/12/18 05:47 Glucose (Fingerstick) 277 mg/dL (70-99) Micro Urine 10/07 Staphylococcus saprophyticus. Greater than 100,000 colony forming units per mL Based on resistance to oxacillin this isolate would be resistant to all currently available beta-lactam antimicrobial agents, with the exception of the newer cephalosporins with anti-MRSA activity, such as Ceftaroline ANTIMICROBIAL SUSCEPTIBILITY Final Comment S = Susceptible; I = Intermediate; R = Resistant P = Positive; N = Negative MICS are expressed in micrograms per mL Antibiotic RSLT#1 RSLT#2 RSLT#3 RSLT#4 Ciprofloxacin S<=0.5 Gentamicin S<=0.5 Levofloxacin S =0.25 Linezolid S =1 Nitrofurantoin S<=16 Oxacillin R>=4 Penicillin R>=0.5 Quinupristin/Dalfopristin S<=0.25 Rifampin S<=0.5 Tetracycline S =2 Trimethoprim/Sulfa S<=10 Vancomycin S<=0.5 Microbiology 10/07/18 Blood Culture - Preliminary, Resulted NO GROWTH AFTER 2 DAYS Objective Assessment Fever - resolved Pneumonia + mycoplasma 10/08 - on Doxy 10/09. Sputum cult - routine raheel/ Strep and Legionella - neg UTI, POA staph sap NSTEMI Lactic acidosis Allergy PCN w/ hives and throat swelling; erythromycin w/ hives. Leukocytosis - on steroids - better Hypotension, now off Levophed gtt Acute encephalopathy - improving Acute respiratory failure s/p intubation ALEX - better COPD, O2 dependent Plan Plan of Care Continue meropenem (10/07) for now Cont doxy (10/09) One time dose vancomycin, 10/07, d/c Zyvox (10/08)/levoflox Steroids BC NGTD D/w nursing D/w BELKYS SHEETS MD October 12, 2018 07:00
[2018-10-12] MEDS: LISINOPRIL 10 MG TABLET PO SCH (07:54)
[2018-10-12] MEDS: DOXYCYCLINE HYCLATE 100 MG in IV DEXTROSE 5% 100ML 100 ML IV SCH ×2 (07:55→20:46)
[2018-10-12] MEDS: ASPIRIN ENTERIC COATED 81 MG TABLET.DR. PO SCH (07:55)
[2018-10-12] MEDS: MIDAZOLAM 100mg/100ml NS BAG 100 ML IV PRN (08:32)
--- NOTE | 2018-10-12 08:44 | RAD ---
Portable chest, 10/12/2018: HISTORY: Respiratory failure Comparison is made to yesterday's study. An NG tube extends into the stomach. A right jugular central venous catheter extends into the superior vena cava. The ET tube tip is poorly defined. The heart size is normal. The pulmonary vascularity is prominent. There are ongoing bibasilar opacities similar to those seen on yesterday's exam, compatible with a combination of pleural fluid and underlying atelectasis/infiltrate. No new abnormality is detected. IMPRESSION: No significant change since yesterday's study. Electronically signed by: Davis Ridley MD (10/12/2018 8:40 AM) [facility]
--- NOTE | 2018-10-12 08:55 | PDOC ---
PROGRESS NOTES Chief Complaint Chief Complaint Fulminant respiratory failure End-stage COPD Clinical pneumonia MORBID OBESITY Possible sepsis uti Staphylococcus saprophyticus. Greater than 100,000 colony forming units per mL Noncompliance Pneumonia + mycoplasma 10/08 - on Doxy 10/09 hypercapnic resp failure poor prognosis adamant that full aggressive care be continued including tracheostomy and PEG tube. History of Present Illness History of Present Illness Patient was seen and examined in the intensive care unit He is still on the assist control Discussed with the RN address goals of treatment failed BIPAP TRIAL 10/10 Maintain aspiration precautions failed effort for bipap trial again 38 min cc time Vitals Vitals Vital Signs Date Time Temp Pulse Resp B/P (MAP) Pulse Ox O2 Delivery O2 Flow Rate FiO2 10/12/18 07:54 63 137/59 10/12/18 06:57 100 Ventilator 10/12/18 06:00 20 10/12/18 04:00 98.2 98.2 Physical Exam Physical Exam GENERAL: intubated/alert HENT: nml conj. PERRL. ETT, OGT LUNGS: Clear CV: S1 S2 regular ABD: Soft, BS present, obese : Jeffers in place EXT: 1- 2+ edema lower extremities, bilaterally. No cyanosis. 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 Greater than 100,000 colony forming units per mL Based on resistance to oxacillin this isolate would be resistant to all currently available beta-lactam antimicrobial agents, with the exception of the newer cephalosporins with anti-MRSA activity, such as Ceftaroline ANTIMICROBIAL SUSCEPTIBILITY Final Comment S = Susceptible; I = Intermediate; R = Resistant P = Positive; N = Negative MICS are expressed in micrograms per mL Antibiotic RSLT#1 RSLT#2 RSLT#3 RSLT#4 Ciprofloxacin S<=0.5 Gentamicin S<=0.5 Levofloxacin S =0.25 Linezolid S =1 Nitrofurantoin S<=16 Oxacillin R>=4 Penicillin R>=0.5 Quinupristin/Dalfopristin S<=0.25 Rifampin S<=0.5 Tetracycline S =2 Trimethoprim/Sulfa S<=10 Vancomycin S<=0.5 BERHANE DAVIS DO ORDERED: SPUTUM CULTURE Procedure Result GRAM STAIN WHITE BLOOD CELLS Final Few GRAM STAIN EPITHELIAL CELLS Final Few GRAM STAIN RESULT 1 Final Comment Few gram positive rods. GRAM STAIN RESULT 2 Final Comment Few gram negative rods. GRAM STAIN RESULT 3 Final Comment Few gram positive cocci GRAM STAIN EVALUATION Final Comment This specimen is of good quality and is acceptable for routine bacterial culture. Performed at: [address], [id number] [place] Underwriter: MICHELE Cesar MD, Phone: [phone] SPUTUM CULTURE-LC Final Final report REASON: RF PROCEDURE: PORTABLE CHEST 1V Portable chest, 10/12/2018: HISTORY: Respiratory failure Comparison is made to yesterday's study. An NG tube extends into the stomach. A right jugular central venous catheter extends into the superior vena cava. The ET tube tip is poorly defined. The heart size is normal. The pulmonary vascularity is prominent. There are ongoing bibasilar opacities similar to those seen on yesterday's exam, compatible with a combination of pleural fluid and underlying atelectasis/infiltrate. No new abnormality is detected. IMPRESSION: No significant change since yesterday's study. Electronically signed by: Davis Ridley MD (10/12/2018 8:40 AM) [facility] DICTATED and SIGNED BY: DAVIS RIDLEY MD DATE: 10/12/18 0801 Laboratory Tests Test 10/11/18 10:20 10/11/18 11:34 10/12/18 00:33 10/12/18 05:16 O2 Saturation 89 % (92-99) Arterial Blood pH 7.20 (7.35-7.45) Arterial Blood pCO2 at Patient Temp 77 mmHg (35-46) Arterial Blood pO2 at Patient Temp 67 mmHg (65-108) Arterial Blood HCO3 29 mmol/L (21-28) Arterial Blood Base Excess -1 mmol/L (-3-3) FiO2 35 Glucose (Fingerstick) 191 mg/dL (70-99) 233 mg/dL (70-99) White Blood Count 9.9 x10^3/uL (4.0-11.0) Red Blood Count 4.08 x10^6/uL (4.30-5.70) Hemoglobin 11.8 g/dL (13.0-17.5) Hematocrit 37.3 % (39.0-53.0) Mean Corpuscular Volume 91 fL (79-100) Mean Corpuscular Hemoglobin 29 pg (25-35) Mean Corpuscular Hemoglobin Concent 32 g/dL (31-37) Red Cell Distribution Width 16.7 % (11.5-14.5) Platelet Count 144 x10^3/uL (140-400) Neutrophils (%) (Auto) 87 % (31-73) Lymphocytes (%) (Auto) 6 % (24-48) Monocytes (%) (Auto) 7 % (0-9) Eosinophils (%) (Auto) 0 % (0-3) Basophils (%) (Auto) 0 % (0-3) Neutrophils # (Auto) 8.6 x10^3uL (1.8-7.7) Lymphocytes # (Auto) 0.6 x10^3/uL (1.0-4.8) Monocytes # (Auto) 0.6 x10^3/uL (0.0-1.1) Eosinophils # (Auto) 0.0 x10^3/uL (0.0-0.7) Basophils # (Auto) 0.0 x10^3/uL (0.0-0.2) Sodium Level 143 mmol/L (136-145) Potassium Level 5.2 mmol/L (3.5-5.1) Chloride Level 107 mmol/L (98-107) Carbon Dioxide Level 31 mmol/L (21-32) Anion Gap 5 (6-14) Blood Urea Nitrogen 52 mg/dL (8-26) Creatinine 1.3 mg/dL (0.7-1.3) Estimated GFR (Cockcroft-Gault) 53.7 BUN/Creatinine Ratio 40 (6-20) Glucose Level 305 mg/dL (70-99) Calcium Level 7.9 mg/dL (8.5-10.1) Total Bilirubin 0.6 mg/dL (0.2-1.0) Aspartate Amino Transf (AST/SGOT) 20 U/L (15-37) Alanine Aminotransferase (ALT/SGPT) 72 U/L (16-63) Alkaline Phosphatase 49 U/L (46-116) Total Protein 5.6 g/dL (6.4-8.2) Albumin 2.4 g/dL (3.4-5.0) Albumin/Globulin Ratio 0.8 (1.0-1.7) Test 10/12/18 05:47 Glucose (Fingerstick) 277 mg/dL (70-99) Assessment and Plan Assessmemt and Plan Problems Medical Problems: (1) Acute respiratory distress Status: Acute (2) CAP (community acquired pneumonia) Status: Acute (3) CHF (congestive heart failure) Status: Acute (4) Elevated liver function tests Status: Acute (5) Elevated troponin I level Status: Acute (6) Hyperkalemia Status: Acute (7) Renal insufficiency Status: Acute (8) Sepsis Status: Acute (9) Unresponsiveness Status: Acute (10) Urinary tract infection Status: Acute Comment Review of Relevant I have reviewed the following items akbar (where applicable) has been applied. Labs Laboratory Tests Test 10/10/18 10:00 10/10/18 11:56 10/10/18 18:38 10/11/18 00:19 O2 Saturation 93 % (92-99) Arterial Blood pH 7.25 (7.35-7.45) Arterial Blood pCO2 at Patient Temp 63 mmHg (35-46) Arterial Blood pO2 at Patient Temp 77 mmHg (65-108) Arterial Blood HCO3 27 mmol/L (21-28) Arterial Blood Base Excess -1 mmol/L (-3-3) FiO2 35 Glucose (Fingerstick) 167 mg/dL (70-99) 254 mg/dL (70-99) 194 mg/dL (70-99) Test 10/11/18 05:48 10/11/18 05:50 10/11/18 10:20 10/11/18 11:34 Glucose (Fingerstick) 220 mg/dL (70-99) 191 mg/dL (70-99) Sodium Level 145 mmol/L (136-145) Potassium Level 4.6 mmol/L (3.5-5.1) Chloride Level 111 mmol/L (98-107) Carbon Dioxide Level 26 mmol/L (21-32) Anion Gap 8 (6-14) Blood Urea Nitrogen 42 mg/dL (8-26) Creatinine 1.2 mg/dL (0.7-1.3) Estimated GFR (Cockcroft-Gault) 58.9 Glucose Level 243 mg/dL (70-99) Calcium Level 7.2 mg/dL (8.5-10.1) O2 Saturation 89 % (92-99) Arterial Blood pH 7.20 (7.35-7.45) Arterial Blood pCO2 at Patient Temp 77 mmHg (35-46) Arterial Blood pO2 at Patient Temp 67 mmHg (65-108) Arterial Blood HCO3 29 mmol/L (21-28) Arterial Blood Base Excess -1 mmol/L (-3-3) FiO2 35 Test 10/12/18 00:33 10/12/18 05:16 10/12/18 05:47 Glucose (Fingerstick) 233 mg/dL (70-99) 277 mg/dL (70-99) White Blood Count 9.9 x10^3/uL (4.0-11.0) Red Blood Count 4.08 x10^6/uL (4.30-5.70) Hemoglobin 11.8 g/dL (13.0-17.5) Hematocrit 37.3 % (39.0-53.0) Mean Corpuscular Volume 91 fL (79-100) Mean Corpuscular Hemoglobin 29 pg (25-35) Mean Corpuscular Hemoglobin Concent 32 g/dL (31-37) Red Cell Distribution Width 16.7 % (11.5-14.5) Platelet Count 144 x10^3/uL (140-400) Neutrophils (%) (Auto) 87 % (31-73) Lymphocytes (%) (Auto) 6 % (24-48) Monocytes (%) (Auto) 7 % (0-9) Eosinophils (%) (Auto) 0 % (0-3) Basophils (%) (Auto) 0 % (0-3) Neutrophils # (Auto) 8.6 x10^3uL (1.8-7.7) Lymphocytes # (Auto) 0.6 x10^3/uL (1.0-4.8) Monocytes # (Auto) 0.6 x10^3/uL (0.0-1.1) Eosinophils # (Auto) 0.0 x10^3/uL (0.0-0.7) Basophils # (Auto) 0.0 x10^3/uL (0.0-0.2) Sodium Level 143 mmol/L (136-145) Potassium Level 5.2 mmol/L (3.5-5.1) Chloride Level 107 mmol/L (98-107) Carbon Dioxide Level 31 mmol/L (21-32) Anion Gap 5 (6-14) Blood Urea Nitrogen 52 mg/dL (8-26) Creatinine 1.3 mg/dL (0.7-1.3) Estimated GFR (Cockcroft-Gault) 53.7 BUN/Creatinine Ratio 40 (6-20) Glucose Level 305 mg/dL (70-99) Calcium Level 7.9 mg/dL (8.5-10.1) Total Bilirubin 0.6 mg/dL (0.2-1.0) Aspartate Amino Transf (AST/SGOT) 20 U/L (15-37) Alanine Aminotransferase (ALT/SGPT) 72 U/L (16-63) Alkaline Phosphatase 49 U/L (46-116) Total Protein 5.6 g/dL (6.4-8.2) Albumin 2.4 g/dL (3.4-5.0) Albumin/Globulin Ratio 0.8 (1.0-1.7) Laboratory Tests Test 10/11/18 10:20 10/11/18 11:34 10/12/18 00:33 10/12/18 05:16 O2 Saturation 89 % (92-99) Arterial Blood pH 7.20 (7.35-7.45) Arterial Blood pCO2 at Patient Temp 77 mmHg (35-46) Arterial Blood pO2 at Patient Temp 67 mmHg (65-108) Arterial Blood HCO3 29 mmol/L (21-28) Arterial Blood Base Excess -1 mmol/L (-3-3) FiO2 35 Glucose (Fingerstick) 191 mg/dL (70-99) 233 mg/dL (70-99) White Blood Count 9.9 x10^3/uL (4.0-11.0) Red Blood Count 4.08 x10^6/uL (4.30-5.70) Hemoglobin 11.8 g/dL (13.0-17.5) Hematocrit 37.3 % (39.0-53.0) Mean Corpuscular Volume 91 fL (79-100) Mean Corpuscular Hemoglobin 29 pg (25-35) Mean Corpuscular Hemoglobin Concent 32 g/dL (31-37) Red Cell Distribution Width 16.7 % (11.5-14.5) Platelet Count 144 x10^3/uL (140-400) Neutrophils (%) (Auto) 87 % (31-73) Lymphocytes (%) (Auto) 6 % (24-48) Monocytes (%) (Auto) 7 % (0-9) Eosinophils (%) (Auto) 0 % (0-3) Basophils (%) (Auto) 0 % (0-3) Neutrophils # (Auto) 8.6 x10^3uL (1.8-7.7) Lymphocytes # (Auto) 0.6 x10^3/uL (1.0-4.8) Monocytes # (Auto) 0.6 x10^3/uL (0.0-1.1) Eosinophils # (Auto) 0.0 x10^3/uL (0.0-0.7) Basophils # (Auto) 0.0 x10^3/uL (0.0-0.2) Sodium Level 143 mmol/L (136-145) Potassium Level 5.2 mmol/L (3.5-5.1) Chloride Level 107 mmol/L (98-107) Carbon Dioxide Level 31 mmol/L (21-32) Anion Gap 5 (6-14) Blood Urea Nitrogen 52 mg/dL (8-26) Creatinine 1.3 mg/dL (0.7-1.3) Estimated GFR (Cockcroft-Gault) 53.7 BUN/Creatinine Ratio 40 (6-20) Glucose Level 305 mg/dL (70-99) Calcium Level 7.9 mg/dL (8.5-10.1) Total Bilirubin 0.6 mg/dL (0.2-1.0) Aspartate Amino Transf (AST/SGOT) 20 U/L (15-37) Alanine Aminotransferase (ALT/SGPT) 72 U/L (16-63) Alkaline Phosphatase 49 U/L (46-116) Total Protein 5.6 g/dL (6.4-8.2) Albumin 2.4 g/dL (3.4-5.0) Albumin/Globulin Ratio 0.8 (1.0-1.7) Test 10/12/18 05:47 Glucose (Fingerstick) 277 mg/dL (70-99) Microbiology 10/07/18 Blood Culture - Preliminary, Resulted NO GROWTH AFTER 4 DAYS 10/08/18 - Final, Complete 10/08/18 - Final, Complete 10/08/18 - Final, Complete 10/08/18 - Final, Complete 10/08/18 - Final, Complete 10/08/18 Gram Stain Evaluation - Final, Complete 10/08/18 Sputum Culture - Final, Complete 10/08/18 Sputum Result 1 - Final, Complete 10/07/18 Urine Culture - Final, Complete 10/07/18 Urine Culture Result 1 (ELEN) - Final, Complete 10/07/18 Antimicrobic Susceptibility - Final, Complete Medications Current Medications Sodium Chloride 1,000 ml @ 1,000 mls/hr Q1H IV Last administered on 10/07/18at 11:27; Start 10/07/18 at 10:52; Stop 10/07/18 at 11:51; Status DC Midazolam HCl 100 ml @ 1 mls/hr 1X ONCE IV Last administered on 10/07/18at 11:20; Start 10/07/18 at 11:15; Stop 10/09/18 at 15:55; Status DC Etomidate (Amidate) 20 mg STK-MED ONCE IV ; Start 10/07/18 at 11:13; Stop 10/07/18 at 11:14; Status DC Succinylcholine Chloride (Anectine) 200 mg STK-MED ONCE .ROUTE ; Start 10/07/18 at 11:13; Stop 10/07/18 at 11:14; Status DC Etomidate (Amidate) 20 mg 1X ONCE IV Last administered on 10/07/18at 11:01; Start 10/07/18 at 11:30; Stop 10/07/18 at 11:33; Status DC Succinylcholine Chloride (Anectine) 100 mg 1X ONCE IV Last administered on 10/07/18at 11:01; Start 10/07/18 at 11:30; Stop 10/07/18 at 11:33; Status DC Albuterol Sulfate (Ventolin Neb Soln) 10 mg 1X ONCE CONT NEB ; Start 10/07/18 at 12:00; Stop 10/07/18 at 12:01; Status DC Methylprednisolone Sodium Succinate (SOLU-Medrol 125MG VIAL) 125 mg 1X ONCE IV Last administered on 10/07/18at 11:52; Start 10/07/18 at 12:00; Stop 10/07/18 at 12:01; Status DC Vancomycin HCl 250 ml @ 250 mls/hr 1X ONCE IV Last administered on 10/07/18at 12:27; Start 10/07/18 at 12:00; Stop 10/07/18 at 12:59; Status DC Levofloxacin/ Dextrose 150 ml @ 100 mls/hr 1X ONCE IV Last administered on 10/07/18at 12:28; Start 10/07/18 at 12:00; Stop 10/07/18 at 13:29; Status DC Sodium Chloride 1,000 ml @ 1,000 mls/hr 1X ONCE IV Last administered on 10/07/18at 12:57; Start 10/07/18 at 12:45; Stop 10/07/18 at 13:44; Status DC Sodium Chloride 1,000 ml @ 1,000 mls/hr 1X ONCE IV Last administered on 10/07/18at 12:58; Start 10/07/18 at 12:45; Stop 10/07/18 at 13:44; Status DC Dextrose (Dextrose 50%-Water Syringe) 25 gm 1X ONCE IV Last administered on 10/07/18at 12:59; Start 10/07/18 at 12:45; Stop 10/07/18 at 12:46; Status DC Insulin Human Regular (HumuLIN R VIAL) 10 unit 1X ONCE IV Last administered on 10/07/18at 13:00; Start 10/07/18 at 12:45; Stop 10/07/18 at 12:46; Status DC Sodium Bicarbonate (Sodium Bicarb Adult 8.4% Syr) 50 meq 1X ONCE IV Last administered on 10/07/18at 13:07; Start 10/07/18 at 12:45; Stop 10/07/18 at 12:46; Status DC Sodium Chloride 1,000 ml @ 100 mls/hr Q10H IV ; Start 10/07/18 at 16:00; Stop 10/07/18 at 16:00; Status DC Pantoprazole Sodium (PROTONIX VIAL for IV PUSH) 40 mg DAILYAC IVP Last administered on 10/08/18at 08:25; Start 10/07/18 at 13:30; Stop 10/08/18 at 09:54; Status DC Pantoprazole Sodium (PROTONIX VIAL for IV PUSH) 40 mg 1X ONCE IVP ; Start 10/07/18 at 12:45; Stop 10/07/18 at 12:46; Status UNV Heparin Sodium (Porcine) (Heparin Sodium) 5,000 unit Q8HRS SQ Last administered on 10/12/18at 05:53; Start 10/07/18 at 14:00 Levofloxacin/ Dextrose (Levaquin Per Pharmacy) 1 each PRN DAILY PRN MC SEE COMMENTS; Start 10/07/18 at 12:45; Stop 10/08/18 at 07:33; Status DC Insulin Human Lispro (HumaLOG) 0-9 UNITS TIDWMEALS SQ ; Start 10/07/18 at 17:00; Stop 10/07/18 at 17:00; Status DC Dextrose (Dextrose 50%-Water Syringe) 12.5 gm PRN Q15MIN PRN IV SEE COMMENTS; Start 10/07/18 at 12:45 Albuterol/ Ipratropium (Duoneb) 3 ml RTQID NEB ; Start 10/07/18 at 16:00; Status Cancel Methylprednisolone Sodium Succinate (SOLU-Medrol 40MG VIAL) 40 mg Q8HRS IV Last administered on 10/12/18at 05:51; Start 10/07/18 at 22:00 Acetaminophen (Tylenol) 650 mg PRN Q6HRS PRN PEG MILD PAIN / TEMP Last administered on 10/08/18at 08:25; Start 10/07/18 at 12:45 Morphine Sulfate (Morphine Sulfate) 2 mg PRN Q2HR PRN IV PAIN Last administered on 10/11/18at 15:56; Start 10/07/18 at 12:45 Ondansetron HCl (Zofran) 4 mg PRN Q6HRS PRN IV NAUSEA/VOMITING; Start 10/07/18 at 12:45 Norepinephrine Bitartrate 250 ml @ 1.875 mls/ hr CONT PRN IV SEE I/O RECORD Last administered on 10/07/18at 14:01; Start 10/07/18 at 14:00 Sodium Chloride 1,000 ml @ 150 mls/hr Q6H40M IV Last administered on 10/08/18at 15:09; Start 10/07/18 at 14:00; Stop 10/08/18 at 13:59; Status DC Calcium Gluconate (Calcium Gluconate) 1,000 mg 1X ONCE IVP ; Start 10/07/18 at 13:30; Stop 10/07/18 at 13:31; Status Cancel Sodium Polystyrene Sulfonate (Kayexalate) 15 gm 1X ONCE PO Last administered on 10/07/18at 14:10; Start 10/07/18 at 13:30; Stop 10/07/18 at 13:31; Status DC Pantoprazole Sodium (PROTONIX VIAL for IV PUSH) 40 mg STK-MED ONCE IVP ; Start 10/07/18 at 12:52; Stop 10/07/18 at 12:55; Status DC Levofloxacin/ Dextrose 150 ml @ 100 mls/hr Q48H IV ; Start 10/09/18 at 12:00; Stop 10/09/18 at 12:00; Status DC Calcium Gluconate 1000 mg/Sodium Chloride 110 ml @ 220 mls/hr 1X ONCE IV Last administered on 10/07/18at 14:23; Start 10/07/18 at 15:00; Stop 10/07/18 at 15:29; Status DC Sodium Chloride 1,000 ml @ 1,000 mls/hr 1X ONCE IV Last administered on 10/07at 14:50; Start 10/07/18 at 15:00; Stop 10/07/18 at 15:59; Status DC Sodium Chloride 1,000 ml @ 999 mls/hr 1X ONCE IV ; Start 10/07/18 at 15:00; Stop 10/07/18 at 16:00; Status DC Albuterol Sulfate (Ventolin Neb Soln) 2.5 mg PRN Q2HR PRN NEB [id number]; Start 10/07/18 at 15:00 Albuterol/ Ipratropium (Duoneb) 3 ml RTQID NEB Last administered on 10/12/18at 06:57; Start 10/07/18 at 16:00 Insulin Human Lispro (HumaLOG) 0-9 UNITS Q6HRS SQ Last administered on 10/12/18at 05:53; Start 10/07/18 at 18:00 Meropenem 500 mg/ Sodium Chloride 50 ml @ 100 mls/hr Q8HRS IV Last administered on 10/12/18 05:58; Start 10/07/18 at 17:00 Midazolam HCl 100 ml @ 5 mls/hr CONT PRN IV SEE I/O RECORD Last administered on 10/12/18at 08:32; Start 10/08/18 at 04:15 Lactobacillus Rhamnosus (Culturelle) 1 cap BID PO ; Start 10/08/18 at 09:00; Stop 10/09/18 at 15:58; Status DC Famotidine (Pepcid Vial) 20 mg QHS IVP Last administered on 10/11/18at 21:04; Start 10/08/18 at 21:00 Linezolid/Dextrose 300 ml @ 300 mls/hr Q12HR IV Last administered on 10/09/18at 20:58; Start 10/08/18 at 11:30; Stop 10/10/18 at 07:24; Status DC Doxycycline Hyclate 100 mg/ Dextrose 100 ml @ 50 mls/hr Q12HR IV Last administered on 10/12/18at 07:55; Start 10/09/18 at 13:00 Aspirin (Ecotrin) 81 mg DAILYWBKFT PO Last administered on 10/12/18at 07:55; Start 10/10/18 at 08:00 Furosemide (Lasix) 40 mg 1X ONCE IVP Last administered on 10/11/18at 08:36; Start 10/11/18 at 09:00; Stop 10/11/18 at 09:01; Status DC Lisinopril (Prinivil) 10 mg DAILY PO Last administered on 5/16/19at 07:54; Start 10/11/18 at 14:00 Active Scripts Active Reported Proair Hfa (Albuterol Sulfate) 8.5 Gm Hfa.aer.ad 1 Puff INH PRN Q6HRS PRN Oxazepam 30 Mg Capsule 30 Mg PO QHS Vitals/I & O Vital Sign - Last 24 Hours 10/11/18 10/11/18 10/11/18 10/11/18 09:00 09:07 09:30 10:00 Pulse 64 77 Resp 22 34 B/P (MAP) 156/57 (90) 157/67 (97) Pulse Ox 100 99 95 94 O2 Delivery Ventilator Ventilator Ventilator Ventilator 10/11/18 10/11/18 10/11/18 10/11/18 11:11 12:00 12:00 12:46 Temp 98.2 98.2 Pulse 66 56 Resp 55 28 B/P (MAP) 161/67 (98) 148/69 (95) Pulse Ox 98 98 98 O2 Delivery Ventilator Ventilator Mechanical Ventilator Ventilator 10/11/18 10/11/18 10/11/18 10/11/18 13:00 14:00 14:59 15:00 Pulse 60 50 54 50 Resp 28 21 21 B/P (MAP) 130/58 (82) 126/60 (82) 105/53 105/53 (70) Pulse Ox 100 96 98 O2 Delivery Ventilator Ventilator Ventilator 10/11/18 10/11/18 10/11/18 10/11/18 16:00 16:00 16:17 17:00 Temp 98.4 98.4 Pulse 52 58 Resp 21 21 B/P (MAP) 103/46 (65) 139/52 (81) Pulse Ox 97 97 99 O2 Delivery Ventilator Mechanical Ventilator Ventilator Ventilator 10/11/18 10/11/18 10/11/18 10/11/18 18:00 19:00 19:46 20:00 Pulse 62 58 Resp 23 22 B/P (MAP) 125/54 (77) 124/54 (77) Pulse Ox 100 98 98 O2 Delivery Ventilator Ventilator Ventilator Mechanical Ventilator 10/11/18 10/11/18 10/11/18 10/11/18 20:40 21:37 22:00 23:00 Temp 98.8 98.8 Pulse 64 58 58 58 Resp 21 22 22 22 B/P (MAP) 126/56 (79) 143/54 (83) 116/52 (73) 118/58 (78) Pulse Ox 98 98 100 100 O2 Delivery Ventilator Ventilator Ventilator Ventilator 10/11/18 10/11/18 10/11/18 10/12/18 23:32 23:59 23:59 01:00 Temp 98.1 98.1 Pulse 48 56 Resp 22 22 B/P (MAP) 119/53 (75) 95/65 (75) Pulse Ox 98 100 96 O2 Delivery Ventilator Mechanical Ventilator Ventilator Ventilator 10/12/18 10/12/18 10/12/18 10/12/18 01:45 02:00 03:00 04:00 Temp 98.2 98.2 Pulse 42 45 51 Resp 20 21 21 B/P (MAP) 117/55 (75) 108/43 (64) 109/53 (71) Pulse Ox 98 98 96 96 O2 Delivery Ventilator Ventilator Ventilator Ventilator 10/12/18 10/12/18 10/12/18 10/12/18 04:00 04:03 05:00 06:00 Pulse 55 55 Resp 20 20 B/P (MAP) 101/55 (70) 138/57 (84) Pulse Ox 98 96 96 O2 Delivery Mechanical Ventilator Ventilator Ventilator Ventilator 10/12/18 10/12/18 06:57 07:54 Pulse 63 B/P (MAP) 137/59 Pulse Ox 100 O2 Delivery Ventilator Intake and Output 10/11/18 10/11/18 10/12/18 15:00 23:00 07:00 Intake Total 350 ml 2168 ml 1388 ml Output Total 2290 ml 685 ml 430 ml Balance -1940 ml 1483 ml 958 ml SANDRA OROURKE MD October 12, 2018 08:55
--- NOTE | 2018-10-12 09:26 | PDOC ---
PULMONARY PROGRESS NOTES Subjective PT FAILED CPAP AGAIN YESTERDAY INCREASE WOB AND WORSENING HYPERCAPNIA Vitals Vital Signs Date Time Temp Pulse Resp B/P (MAP) Pulse Ox O2 Delivery O2 Flow Rate FiO2 10/12/18 07:54 63 137/59 10/12/18 06:57 100 Ventilator 10/12/18 06:00 20 10/12/18 04:00 98.2 98.2 General: Lethargic Lungs: Other (DECREASE BS) Cardiovascular: S1, S2 Abdomen: Soft Extremities: Other (trace edema) Skin: Warm Labs Laboratory Tests Test 10/10/18 10:00 10/10/18 11:56 10/10/18 18:38 10/11/18 00:19 O2 Saturation 93 % (92-99) Arterial Blood pH 7.25 (7.35-7.45) Arterial Blood pCO2 at Patient Temp 63 mmHg (35-46) Arterial Blood pO2 at Patient Temp 77 mmHg (65-108) Arterial Blood HCO3 27 mmol/L (21-28) Arterial Blood Base Excess -1 mmol/L (-3-3) FiO2 35 Glucose (Fingerstick) 167 mg/dL (70-99) 254 mg/dL (70-99) 194 mg/dL (70-99) Test 10/11/18 05:48 10/11/18 05:50 10/11/18 10:20 10/11/18 11:34 Glucose (Fingerstick) 220 mg/dL (70-99) 191 mg/dL (70-99) Sodium Level 145 mmol/L (136-145) Potassium Level 4.6 mmol/L (3.5-5.1) Chloride Level 111 mmol/L (98-107) Carbon Dioxide Level 26 mmol/L (21-32) Anion Gap 8 (6-14) Blood Urea Nitrogen 42 mg/dL (8-26) Creatinine 1.2 mg/dL (0.7-1.3) Estimated GFR (Cockcroft-Gault) 58.9 Glucose Level 243 mg/dL (70-99) Calcium Level 7.2 mg/dL (8.5-10.1) O2 Saturation 89 % (92-99) Arterial Blood pH 7.20 (7.35-7.45) Arterial Blood pCO2 at Patient Temp 77 mmHg (35-46) Arterial Blood pO2 at Patient Temp 67 mmHg (65-108) Arterial Blood HCO3 29 mmol/L (21-28) Arterial Blood Base Excess -1 mmol/L (-3-3) FiO2 35 Test 10/12/18 00:33 10/12/18 05:16 10/12/18 05:47 Glucose (Fingerstick) 233 mg/dL (70-99) 277 mg/dL (70-99) White Blood Count 9.9 x10^3/uL (4.0-11.0) Red Blood Count 4.08 x10^6/uL (4.30-5.70) Hemoglobin 11.8 g/dL (13.0-17.5) Hematocrit 37.3 % (39.0-53.0) Mean Corpuscular Volume 91 fL (79-100) Mean Corpuscular Hemoglobin 29 pg (25-35) Mean Corpuscular Hemoglobin Concent 32 g/dL (31-37) Red Cell Distribution Width 16.7 % (11.5-14.5) Platelet Count 144 x10^3/uL (140-400) Neutrophils (%) (Auto) 87 % (31-73) Lymphocytes (%) (Auto) 6 % (24-48) Monocytes (%) (Auto) 7 % (0-9) Eosinophils (%) (Auto) 0 % (0-3) Basophils (%) (Auto) 0 % (0-3) Neutrophils # (Auto) 8.6 x10^3uL (1.8-7.7) Lymphocytes # (Auto) 0.6 x10^3/uL (1.0-4.8) Monocytes # (Auto) 0.6 x10^3/uL (0.0-1.1) Eosinophils # (Auto) 0.0 x10^3/uL (0.0-0.7) Basophils # (Auto) 0.0 x10^3/uL (0.0-0.2) Sodium Level 143 mmol/L (136-145) Potassium Level 5.2 mmol/L (3.5-5.1) Chloride Level 107 mmol/L (98-107) Carbon Dioxide Level 31 mmol/L (21-32) Anion Gap 5 (6-14) Blood Urea Nitrogen 52 mg/dL (8-26) Creatinine 1.3 mg/dL (0.7-1.3) Estimated GFR (Cockcroft-Gault) 53.7 BUN/Creatinine Ratio 40 (6-20) Glucose Level 305 mg/dL (70-99) Calcium Level 7.9 mg/dL (8.5-10.1) Total Bilirubin 0.6 mg/dL (0.2-1.0) Aspartate Amino Transf (AST/SGOT) 20 U/L (15-37) Alanine Aminotransferase (ALT/SGPT) 72 U/L (16-63) Alkaline Phosphatase 49 U/L (46-116) Total Protein 5.6 g/dL (6.4-8.2) Albumin 2.4 g/dL (3.4-5.0) Albumin/Globulin Ratio 0.8 (1.0-1.7) Laboratory Tests Test 10/11/18 10:20 10/11/18 11:34 10/12/18 00:33 10/12/18 05:16 O2 Saturation 89 % (92-99) Arterial Blood pH 7.20 (7.35-7.45) Arterial Blood pCO2 at Patient Temp 77 mmHg (35-46) Arterial Blood pO2 at Patient Temp 67 mmHg (65-108) Arterial Blood HCO3 29 mmol/L (21-28) Arterial Blood Base Excess -1 mmol/L (-3-3) FiO2 35 Glucose (Fingerstick) 191 mg/dL (70-99) 233 mg/dL (70-99) White Blood Count 9.9 x10^3/uL (4.0-11.0) Red Blood Count 4.08 x10^6/uL (4.30-5.70) Hemoglobin 11.8 g/dL (13.0-17.5) Hematocrit 37.3 % (39.0-53.0) Mean Corpuscular Volume 91 fL (79-100) Mean Corpuscular Hemoglobin 29 pg (25-35) Mean Corpuscular Hemoglobin Concent 32 g/dL (31-37) Red Cell Distribution Width 16.7 % (11.5-14.5) Platelet Count 144 x10^3/uL (140-400) Neutrophils (%) (Auto) 87 % (31-73) Lymphocytes (%) (Auto) 6 % (24-48) Monocytes (%) (Auto) 7 % (0-9) Eosinophils (%) (Auto) 0 % (0-3) Basophils (%) (Auto) 0 % (0-3) Neutrophils # (Auto) 8.6 x10^3uL (1.8-7.7) Lymphocytes # (Auto) 0.6 x10^3/uL (1.0-4.8) Monocytes # (Auto) 0.6 x10^3/uL (0.0-1.1) Eosinophils # (Auto) 0.0 x10^3/uL (0.0-0.7) Basophils # (Auto) 0.0 x10^3/uL (0.0-0.2) Sodium Level 143 mmol/L (136-145) Potassium Level 5.2 mmol/L (3.5-5.1) Chloride Level 107 mmol/L (98-107) Carbon Dioxide Level 31 mmol/L (21-32) Anion Gap 5 (6-14) Blood Urea Nitrogen 52 mg/dL (8-26) Creatinine 1.3 mg/dL (0.7-1.3) Estimated GFR (Cockcroft-Gault) 53.7 BUN/Creatinine Ratio 40 (6-20) Glucose Level 305 mg/dL (70-99) Calcium Level 7.9 mg/dL (8.5-10.1) Total Bilirubin 0.6 mg/dL (0.2-1.0) Aspartate Amino Transf (AST/SGOT) 20 U/L (15-37) Alanine Aminotransferase (ALT/SGPT) 72 U/L (16-63) Alkaline Phosphatase 49 U/L (46-116) Total Protein 5.6 g/dL (6.4-8.2) Albumin 2.4 g/dL (3.4-5.0) Albumin/Globulin Ratio 0.8 (1.0-1.7) Test 10/12/18 05:47 Glucose (Fingerstick) 277 mg/dL (70-99) Medications Active Scripts Medications Dose Route/Sig Max Daily Dose Days Date Category Proair Hfa (Albuterol Sulfate) 8.5 Gm Hfa.aer.ad 1 Puff INH PRN Q6HRS PRN 10/07/18 Reported Oxazepam 30 Mg Capsule 30 Mg PO QHS 10/07/18 Reported Comments CXR 10/12 bilateral infiltrates Impression . 1. Acute on chronic hypoxemic/ hypercapnic respiratory failure. 2. Acute exacerbation of chronic obstructive pulmonary disease. 3. Abnormal x-ray compatible with pneumonia,, cannot exclude CHF 4. Gram-negative, possible gram-positive pneumonia. 5. No history given of diabetes, hypertension or renal failure. 6. History of alcohol intake, discontinued approximately 4 years ago. 7. Possible sepsis. 8. Positive mycoplasma serology 9. EF 40% IMPRESSION: 1. Diffuse interstitial changes, increased from prior study. Stimulated increasing interstitial edema or atypical pneumonia. 2. Left basilar consolidation with moderate size left pleural effusion, increased from prior study. Plan . CPAP TRIAL AGAIN TODAY ABG NOTED YESTERDAY CONTINUE ANTIBX PER ID IV LASIX FEVER IMPROVED STEROIDS DIURESIS DVT GI PROPH ENTERAL FEEDING DIFFICULT WEAN/ LONG H/O OF TOBACCO USE D/W ENTIRE FAMILY REGARDING POOR PROGNOSIS AND ALTERNATE PLANS IF HE CONTINUES TO FAIL/ LEANING TOWARDS TRACH PALLIATIVE MEETING TODAY ENDER MUÑOZ MD October 12, 2018 09:26
[2018-10-12 09:30] LABS: BASE EXCESS ABG 2 mmol/L (-3-3); HCO3 ABG 28 mmol/L (21-28); PCO2 ABG 52 mmHg (35-46); PO2 ABG 80 mmHg (65-108); SAT O2 ABG 95 % (92-99)
[2018-10-12 09:34] LABS: FIO2 ABG 35
[2018-10-12 10:11] LABS: BASE EXCESS ABG 2 mmol/L (-3-3); HCO3 ABG 30 mmol/L (21-28); PO2 ABG 76 mmHg (65-108); SAT O2 ABG 93 % (92-99)
[2018-10-12 10:14] LABS: FIO2 ABG 35; PCO2 ABG 64 mmHg (35-46)
[2018-10-12] MEDS: MORPHINE SULFATE 2 MG/ML VIAL. IV PRN ×4 (10:26→19:23)
--- NOTE | 2018-10-12 11:52 | PDOC ---
JESSICA CORREIA ASSISTANT CENTER MANAGER 10/12/18 1152: CARDIO Progress Notes Date and Time Date of Service 10/12/18 Time of Evaluation 1140 Subjective Subjective: No Chest Pain, Other (intubated) Vitals Vitals Vital Signs Date Time Temp Pulse Resp B/P (MAP) Pulse Ox O2 Delivery O2 Flow Rate FiO2 10/12/18 11:01 99 Ventilator 10/12/18 11:00 68 29 67/73 (71) 10/12/18 08:00 97.9 97.9 Weight Weight [ ] Input and Output Intake and Output Intake and Output 10/12/18 06:59 Intake Total 3906 ml Output Total 3565 ml Balance 341 ml IV Total 431 ml Tube Feeding 2515 ml Other 960 ml Output Urine Total 3565 ml # Bowel Movements 1 Laboratory Labs Laboratory Tests Test 10/12/18 00:33 10/12/18 05:16 10/12/18 05:47 10/12/18 09:15 Glucose (Fingerstick) 233 mg/dL (70-99) 277 mg/dL (70-99) White Blood Count 9.9 x10^3/uL (4.0-11.0) Red Blood Count 4.08 x10^6/uL (4.30-5.70) Hemoglobin 11.8 g/dL (13.0-17.5) Hematocrit 37.3 % (39.0-53.0) Mean Corpuscular Volume 91 fL (79-100) Mean Corpuscular Hemoglobin 29 pg (25-35) Mean Corpuscular Hemoglobin Concent 32 g/dL (31-37) Red Cell Distribution Width 16.7 % (11.5-14.5) Platelet Count 144 x10^3/uL (140-400) Neutrophils (%) (Auto) 87 % (31-73) Lymphocytes (%) (Auto) 6 % (24-48) Monocytes (%) (Auto) 7 % (0-9) Eosinophils (%) (Auto) 0 % (0-3) Basophils (%) (Auto) 0 % (0-3) Neutrophils # (Auto) 8.6 x10^3uL (1.8-7.7) Lymphocytes # (Auto) 0.6 x10^3/uL (1.0-4.8) Monocytes # (Auto) 0.6 x10^3/uL (0.0-1.1) Eosinophils # (Auto) 0.0 x10^3/uL (0.0-0.7) Basophils # (Auto) 0.0 x10^3/uL (0.0-0.2) Sodium Level 143 mmol/L (136-145) Potassium Level 5.2 mmol/L (3.5-5.1) Chloride Level 107 mmol/L (98-107) Carbon Dioxide Level 31 mmol/L (21-32) Anion Gap 5 (6-14) Blood Urea Nitrogen 52 mg/dL (8-26) Creatinine 1.3 mg/dL (0.7-1.3) Estimated GFR (Cockcroft-Gault) 53.7 BUN/Creatinine Ratio 40 (6-20) Glucose Level 305 mg/dL (70-99) Calcium Level 7.9 mg/dL (8.5-10.1) Total Bilirubin 0.6 mg/dL (0.2-1.0) Aspartate Amino Transf (AST/SGOT) 20 U/L (15-37) Alanine Aminotransferase (ALT/SGPT) 72 U/L (16-63) Alkaline Phosphatase 49 U/L (46-116) Total Protein 5.6 g/dL (6.4-8.2) Albumin 2.4 g/dL (3.4-5.0) Albumin/Globulin Ratio 0.8 (1.0-1.7) O2 Saturation 95 % (92-99) Arterial Blood pH 7.36 (7.35-7.45) Arterial Blood pCO2 at Patient Temp 52 mmHg (35-46) Arterial Blood pO2 at Patient Temp 80 mmHg (65-108) Arterial Blood HCO3 28 mmol/L (21-28) Arterial Blood Base Excess 2 mmol/L (-3-3) FiO2 35 Test 10/12/18 10:10 10/12/18 11:26 O2 Saturation 93 % (92-99) Arterial Blood pH 7.29 (7.35-7.45) Arterial Blood pCO2 at Patient Temp 64 mmHg (35-46) Arterial Blood pO2 at Patient Temp 76 mmHg (65-108) Arterial Blood HCO3 30 mmol/L (21-28) Arterial Blood Base Excess 2 mmol/L (-3-3) FiO2 35 Glucose (Fingerstick) 224 mg/dL (70-99) Microbiology Micro Microbiology 10/07/18 Blood Culture - Preliminary, Resulted NO GROWTH AFTER 4 DAYS 10/08/18 - Final, Complete 10/08/18 - Final, Complete 10/08/18 - Final, Complete 10/08/18 - Final, Complete 10/08/18 - Final, Complete 10/08/18 Gram Stain Evaluation - Final, Complete 10/08/18 Sputum Culture - Final, Complete 10/08/18 Sputum Result 1 - Final, Complete 10/07/18 Urine Culture - Final, Complete 10/07/18 Urine Culture Result 1 (ELEN) - Final, Complete 10/07/18 Antimicrobic Susceptibility - Final, Complete Physical Exam HEENT: Neck Supple W Full Motion Chest: Symmetric LUNGS: Other (mechanical vent, basilar crackles) Heart: S1S2, RRR (SR), other (distant heart tones) Abdomen: Soft N/T, Other (soft) Extremities: Other (1-2+ bilateral LE pitting edema) Neurology: alert, follow commands Assessment Assessment 1. Acute respiratory failure with AECOPD, CHF, PNA; s/p intubation. Failed trail again today. 2. NSTEMI; peak 0.8. Most probably type II, demand ischemia 3. Acute on chronic systolic HF 4. Leukocytosis, lactic acidosis, ? sepsis. 5. PNA, UTI, fevers 6. ALEX; improved 7. Cardiomyopathy; echo showed LVEF 40% with global hypokinesis 8. Hyperkalemia 9. H/o CVA 10. Bradycardia, sinus. Now SR. No AV mc blocking agents. 11. Hypertension; elevated Recommendations Additional diuresis. Keep O >I Add Norvasc for BP control Hydralazine PRN Lung optimization as per pulm Antibiotics as per ID Family meeting today to address goals ROXANN MORALES MD 10/13/18 0002: CARDIO Progress Notes Plan Plan Late entry for 10/12/2018. Pt. seen and examined . Agree with above. Diuresis as tolerated. Poor alf prognosis. Supportive care. JESSICA CORREIA APRN October 12, 2018 11:52 ROXANN MORALES MD October 13, 2018 00:02
--- NOTE | 2018-10-12 12:58 | NUR ---
SS following up with discharge planning. SS received phone contact from Palliative Care RN stating that family wishes for full aggressive care and requesting that SS phone and fax referral to [facility]. SS phoned and faxed referral to [facility], ; fax [phone]. SS will await acceptance decision and will proceed accordingly.
--- NOTE | 2018-10-12 13:16 | PDOC2 ---
PALLIATIVE CARE Palliative Care Note Palliative Care Patient alert and able to respond to questions. Remains on Vent. Unable to wean off vent Received his permission to meet with family. Patient does indicated that he is agreeable to tracheostomy, PEG tube and aggressive care including LTAC. Met with Laury, daughters Apple; Julieta (Phone); granddaughters Sarah and Fern; grandsons James and son Armand unable to attend Reviewed medical condition; 1. Acute on chronic hypoxemic/ hypercapnic respiratory failure. 2. Acute exacerbation of chronic obstructive pulmonary disease. 3. Abnormal x-ray compatible with pneumonia,, cannot exclude CHF 4. Gram-negative, possible gram-positive pneumonia. 5. No history given of diabetes, hypertension or renal failure. 6. History of alcohol intake, discontinued approximately 4 years ago. 7. Possible sepsis. 8. Positive mycoplasma serology 9. EF 40% Discussed options for care: Current aggressive care which would require tracheostomy and PEG tube. LTAC for continued aggressive care. vs comfort care vs limitations to aggressive care. Family provided the following understanding: if patient was extubated ET tube would not be re-inserted ---would need tracheostomy or allow natural . is adamant that full aggressive care be continued including tracheostomy and PEG tube. She would like to take him home but informed that he will need considerable amount of care that she could not provide at home at this time. Discussed Code Status; Patient and family wish to have full resuscitation. Work: Patient worked at [employer] form many years. Enjoyed fishing and watching TV. Was on oxygen at home. [place]: not a part of his life but has accepted prayer from spiritual care department. Family did ask about Hospice. Information provided. "We're not there" Patient is a . Plan: Full Code, Full aggressive care including PEG, Tracheostomy and LTAC. SHEBA GAITAN October 12, 2018 13:16
[2018-10-12] MEDS: FUROSEMIDE 40 MG/4 ML VIAL. IVP SCH (13:44)
[2018-10-12] MEDS: amLODIPine BESYLATE 5 MG TABLET PO SCH (13:45)
--- NOTE | 2018-10-12 15:59 | NUR ---
Dr Humphreys notified of consult for trach
--- NOTE | 2018-10-12 18:28 | NUR ---
Patient failed wean trial today. CO2 elevated, and blood pH went down. Dacia Man talked to family about palliative care. Patient family would rather do tracheostomy, and PEG placement. Plan is to do tracheostomy Tuesday.
[2018-10-12] MEDS: FAMOTIDINE 20 MG/2 ML VIAL IVP SCH (20:46)
[2018-10-13] VITALS (24 sets, daily range): BP systolic 84–141; BP diastolic 39–65
[2018-10-13] MEDS: MIDAZOLAM 100mg/100ml NS BAG 100 ML IV PRN ×2 (01:14→21:29)
[2018-10-13] MEDS: MORPHINE SULFATE 2 MG/ML VIAL. IV PRN ×8 (02:23→23:21)
[2018-10-13] MEDS: HEPARIN for SUB-Q USE 5,000 UNIT/ML VIAL. SQ SCH ×3 (05:41→21:30)
[2018-10-13] MEDS: methylPREDNISolone SOD SUCC PF 40 MG/ML VIAL. IV SCH ×3 (05:44→21:29)
[2018-10-13] MEDS: MEROPENEM 500 MG in IV NORMAL SALINE 50ML 50 ML IV SCH ×3 (05:44→23:22)
[2018-10-13] MEDS: INSULIN LISPRO 300 UNITS/3 ML INSULN.PEN. SQ SCH ×3 (05:46→18:25)
--- NOTE | 2018-10-13 06:23 | PDOC ---
Infectious Disease Note Subjective Subjective Remains intubated but alert ROS ROS unobtainable Vital Sign Vital Signs Vital Signs Date Time Temp Pulse Resp B/P (MAP) Pulse Ox O2 Delivery O2 Flow Rate FiO2 10/13/18 05:41 100 Ventilator 10/13/18 05:00 66 22 95/44 (61) 10/13/18 00:00 97.5 97.5 Physical Exam PHYSICAL EXAM GENERAL: intubated/alert HENT: nml conj. PERRL. ETT, OGT LUNGS: Clear CV: S1 S2 regular ABD: Soft, BS present, obese : Jeffers in place EXT: 1 + edema lower extremities, bilaterally. No cyanosis. Mitts SKIN: warm without rash SUPERVISOR TYPE DISK QUALITY CONTROL: alert RIJ (10/07) clean Labs Lab Laboratory Tests Test 10/12/18 09:15 10/12/18 10:10 10/12/18 11:26 10/12/18 18:09 O2 Saturation 95 % (92-99) 93 % (92-99) Arterial Blood pH 7.36 (7.35-7.45) 7.29 (7.35-7.45) Arterial Blood pCO2 at Patient Temp 52 mmHg (35-46) 64 mmHg (35-46) Arterial Blood pO2 at Patient Temp 80 mmHg (65-108) 76 mmHg (65-108) Arterial Blood HCO3 28 mmol/L (21-28) 30 mmol/L (21-28) Arterial Blood Base Excess 2 mmol/L (-3-3) 2 mmol/L (-3-3) FiO2 35 35 Glucose (Fingerstick) 224 mg/dL (70-99) 269 mg/dL (70-99) Test 10/12/18 23:53 10/13/18 05:43 Glucose (Fingerstick) 297 mg/dL (70-99) 251 mg/dL (70-99) Micro Urine 10/07 Staphylococcus saprophyticus. Greater than 100,000 colony forming units per mL Based on resistance to oxacillin this isolate would be resistant to all currently available beta-lactam antimicrobial agents, with the exception of the newer cephalosporins with anti-MRSA activity, such as Ceftaroline ANTIMICROBIAL SUSCEPTIBILITY Final Comment S = Susceptible; I = Intermediate; R = Resistant P = Positive; N = Negative MICS are expressed in micrograms per mL Antibiotic RSLT#1 RSLT#2 RSLT#3 RSLT#4 Ciprofloxacin S<=0.5 Gentamicin S<=0.5 Levofloxacin S =0.25 Linezolid S =1 Nitrofurantoin S<=16 Oxacillin R>=4 Penicillin R>=0.5 Quinupristin/Dalfopristin S<=0.25 Rifampin S<=0.5 Tetracycline S =2 Trimethoprim/Sulfa S<=10 Vancomycin S<=0.5 Microbiology 10/07/18 Blood Culture - Preliminary, Resulted NO GROWTH AFTER 2 DAYS Objective Assessment Fever - resolved Pneumonia + mycoplasma 10/08 - on Doxy 10/09. Sputum cult - routine raheel/ Strep and Legionella - neg UTI, POA staph sap NSTEMI Lactic acidosis Allergy PCN w/ hives and throat swelling; erythromycin w/ hives. Leukocytosis - on steroids - better Hypotension, now off Levophed gtt Acute encephalopathy - improving Acute respiratory failure s/p intubation ALEX - better COPD, O2 dependent Plan Plan of Care Continue meropenem (10/07) for now -wean soon Cont doxy (10/09) One time dose vancomycin, 10/07, d/c Zyvox (10/08)/levoflox Steroids Await Trach BC NGTD D/w nursing D/w BELKYS SHEETS MD October 13, 2018 06:23
[2018-10-13] MEDS: IPRATRPIUM/ALBUTEROL 0.5/2.5MG 3 ML NEBU. NEB SCH ×4 (07:41→20:37)
--- NOTE | 2018-10-13 07:54 | RAD ---
Portable chest, 10/13/2018: HISTORY: Respiratory failure Comparison is made to yesterday's study. The ET tube tip lies approximately 9 cm above the lis. An NG tube extends into the stomach. A right jugular central venous catheter extends into the superior vena cava. The heart size is normal. There are mild ongoing bibasilar opacities compatible with mild residual infiltrate and probable pleural fluid. The findings appear unchanged since yesterday's study, but have improved slightly since older exams such as the 10/09/2018 study. There is no evidence of pneumothorax. No new abnormality is detected. IMPRESSION: No significant change since yesterday's exam. Electronically signed by: Davis Ridley MD (10/13/2018 7:51 AM) [place]
[2018-10-13] MEDS: ASPIRIN ENTERIC COATED 81 MG TABLET.DR. PO SCH (07:57)
[2018-10-13] MEDS: DOXYCYCLINE HYCLATE 100 MG in IV DEXTROSE 5% 100ML 100 ML IV SCH ×2 (07:57→21:30)
[2018-10-13] MEDS: amLODIPine BESYLATE 5 MG TABLET PO SCH (07:57)
[2018-10-13] MEDS: LISINOPRIL 10 MG TABLET PO SCH (07:58)
[2018-10-13] MEDS: FUROSEMIDE 40 MG/4 ML VIAL. IVP SCH (08:03)
[2018-10-13 08:58] LABS: BASE EXCESS ABG 2 mmol/L (-3-3); HCO3 ABG 29 mmol/L (21-28); PCO2 ABG 54 mmHg (35-46); PO2 ABG 83 mmHg (65-108); SAT O2 ABG 95 % (92-99)
[2018-10-13 09:00] LABS: FIO2 ABG 35
--- NOTE | 2018-10-13 09:59 | PDOC ---
PROGRESS NOTES Chief Complaint Chief Complaint Fulminant respiratory failure End-stage COPD Clinical pneumonia MORBID OBESITY Possible sepsis uti Staphylococcus saprophyticus. Greater than 100,000 colony forming units per mL Noncompliance Pneumonia + mycoplasma 10/08 - on Doxy 10/09 hypercapnic resp failure poor prognosis adamant that full aggressive care be continued including tracheostomy and PEG tube. History of Present Illness History of Present Illness Patient was seen and examined in the intensive care unit He is still on the assist control Discussed with the RN address goals of treatment failed BIPAP TRIAL 10/10 Maintain aspiration precautions failed effort for bipap trial again X3 trach planned for Monday 10/16 consult gi FOR PEG 32 min cc time Vitals Vitals Vital Signs Date Time Temp Pulse Resp B/P (MAP) Pulse Ox O2 Delivery O2 Flow Rate FiO2 10/13/18 09:09 100 Ventilator 10/13/18 09:00 60 21 117/49 (71) 10/13/18 08:00 98.8 98.8 Physical Exam Physical Exam GENERAL: intubated/alert HENT: nml conj. PERRL. ETT, OGT LUNGS: Clear CV: S1 S2 regular ABD: Soft, BS present, obese : Jeffers in place EXT: 1 + edema lower extremities, bilaterally. No cyanosis. Mitts SKIN: warm without rash AUTHOR'S AGENT: alert RIJ (10/07) clean General: Cooperative, No acute distress, mild distress Heart: Regular rate Lungs: Other (DECREASE BS) Abdomen: Normal bowel sounds, Soft, No tenderness, No hepatosplenomegaly, No masses Extremities: No clubbing, No cyanosis, No edema, Normal pulses, No tenderness/swelling Skin: No rashes, No breakdown, No significant lesion Labs LABS HISTORY: Respiratory failure Comparison is made to yesterday's study. The ET tube tip lies approximately 9 cm above the lis. An NG tube extends into the stomach. A right jugular central venous catheter extends into the superior vena cava. The heart size is normal. There are mild ongoing bibasilar opacities compatible with mild residual infiltrate and probable pleural fluid. The findings appear unchanged since yesterday's study, but have improved slightly since older exams such as the 10/09/2018 study. There is no evidence of pneumothorax. No new abnormality is detected. IMPRESSION: No significant change since yesterday's exam. Electronically signed by: Davis Ridley MD (10/13/2018 7:51 AM) [facility] DICTATED and SIGNED BY: DAVIS RIDLEY MD DATE: 10/13/18 0751 Laboratory Tests Test 10/12/18 10:10 10/12/18 11:26 10/12/18 18:09 10/12/18 23:53 O2 Saturation 93 % (92-99) Arterial Blood pH 7.29 (7.35-7.45) Arterial Blood pCO2 at Patient Temp 64 mmHg (35-46) Arterial Blood pO2 at Patient Temp 76 mmHg (65-108) Arterial Blood HCO3 30 mmol/L (21-28) Arterial Blood Base Excess 2 mmol/L (-3-3) FiO2 35 Glucose (Fingerstick) 224 mg/dL (70-99) 269 mg/dL (70-99) 297 mg/dL (70-99) Test 10/13/18 05:43 10/13/18 08:00 Glucose (Fingerstick) 251 mg/dL (70-99) O2 Saturation 95 % (92-99) Arterial Blood pH 7.35 (7.35-7.45) Arterial Blood pCO2 at Patient Temp 54 mmHg (35-46) Arterial Blood pO2 at Patient Temp 83 mmHg (65-108) Arterial Blood HCO3 29 mmol/L (21-28) Arterial Blood Base Excess 2 mmol/L (-3-3) FiO2 35 Assessment and Plan Assessmemt and Plan Problems Medical Problems: (1) Acute respiratory distress Status: Acute (2) CAP (community acquired pneumonia) Status: Acute (3) CHF (congestive heart failure) Status: Acute (4) Elevated liver function tests Status: Acute (5) Elevated troponin I level Status: Acute (6) Hyperkalemia Status: Acute (7) Renal insufficiency Status: Acute (8) Sepsis Status: Acute (9) Unresponsiveness Status: Acute (10) Urinary tract infection Status: Acute Comment Review of Relevant I have reviewed the following items akbar (where applicable) has been applied. Labs Laboratory Tests Test 10/11/18 10:20 10/11/18 11:34 10/11/18 18:41 10/12/18 00:33 O2 Saturation 89 % (92-99) Arterial Blood pH 7.20 (7.35-7.45) Arterial Blood pCO2 at Patient Temp 77 mmHg (35-46) Arterial Blood pO2 at Patient Temp 67 mmHg (65-108) Arterial Blood HCO3 29 mmol/L (21-28) Arterial Blood Base Excess -1 mmol/L (-3-3) FiO2 35 Glucose (Fingerstick) 191 mg/dL (70-99) 271 mg/dL (70-99) 233 mg/dL (70-99) Test 10/12/18 05:16 10/12/18 05:47 10/12/18 09:15 10/12/18 10:10 White Blood Count 9.9 x10^3/uL (4.0-11.0) Red Blood Count 4.08 x10^6/uL (4.30-5.70) Hemoglobin 11.8 g/dL (13.0-17.5) Hematocrit 37.3 % (39.0-53.0) Mean Corpuscular Volume 91 fL (79-100) Mean Corpuscular Hemoglobin 29 pg (25-35) Mean Corpuscular Hemoglobin Concent 32 g/dL (31-37) Red Cell Distribution Width 16.7 % (11.5-14.5) Platelet Count 144 x10^3/uL (140-400) Neutrophils (%) (Auto) 87 % (31-73) Lymphocytes (%) (Auto) 6 % (24-48) Monocytes (%) (Auto) 7 % (0-9) Eosinophils (%) (Auto) 0 % (0-3) Basophils (%) (Auto) 0 % (0-3) Neutrophils # (Auto) 8.6 x10^3uL (1.8-7.7) Lymphocytes # (Auto) 0.6 x10^3/uL (1.0-4.8) Monocytes # (Auto) 0.6 x10^3/uL (0.0-1.1) Eosinophils # (Auto) 0.0 x10^3/uL (0.0-0.7) Basophils # (Auto) 0.0 x10^3/uL (0.0-0.2) Sodium Level 143 mmol/L (136-145) Potassium Level 5.2 mmol/L (3.5-5.1) Chloride Level 107 mmol/L (98-107) Carbon Dioxide Level 31 mmol/L (21-32) Anion Gap 5 (6-14) Blood Urea Nitrogen 52 mg/dL (8-26) Creatinine 1.3 mg/dL (0.7-1.3) Estimated GFR (Cockcroft-Gault) 53.7 BUN/Creatinine Ratio 40 (6-20) Glucose Level 305 mg/dL (70-99) Calcium Level 7.9 mg/dL (8.5-10.1) Total Bilirubin 0.6 mg/dL (0.2-1.0) Aspartate Amino Transf (AST/SGOT) 20 U/L (15-37) Alanine Aminotransferase (ALT/SGPT) 72 U/L (16-63) Alkaline Phosphatase 49 U/L (46-116) Total Protein 5.6 g/dL (6.4-8.2) Albumin 2.4 g/dL (3.4-5.0) Albumin/Globulin Ratio 0.8 (1.0-1.7) Glucose (Fingerstick) 277 mg/dL (70-99) O2 Saturation 95 % (92-99) 93 % (92-99) Arterial Blood pH 7.36 (7.35-7.45) 7.29 (7.35-7.45) Arterial Blood pCO2 at Patient Temp 52 mmHg (35-46) 64 mmHg (35-46) Arterial Blood pO2 at Patient Temp 80 mmHg (65-108) 76 mmHg (65-108) Arterial Blood HCO3 28 mmol/L (21-28) 30 mmol/L (21-28) Arterial Blood Base Excess 2 mmol/L (-3-3) 2 mmol/L (-3-3) FiO2 35 35 Test 10/12/18 11:26 10/12/18 18:09 10/12/18 23:53 10/13/18 05:43 Glucose (Fingerstick) 224 mg/dL (70-99) 269 mg/dL (70-99) 297 mg/dL (70-99) 251 mg/dL (70-99) Test 10/13/18 08:00 O2 Saturation 95 % (92-99) Arterial Blood pH 7.35 (7.35-7.45) Arterial Blood pCO2 at Patient Temp 54 mmHg (35-46) Arterial Blood pO2 at Patient Temp 83 mmHg (65-108) Arterial Blood HCO3 29 mmol/L (21-28) Arterial Blood Base Excess 2 mmol/L (-3-3) FiO2 35 Laboratory Tests Test 10/12/18 10:10 10/12/18 11:26 10/12/18 18:09 10/12/18 23:53 O2 Saturation 93 % (92-99) Arterial Blood pH 7.29 (7.35-7.45) Arterial Blood pCO2 at Patient Temp 64 mmHg (35-46) Arterial Blood pO2 at Patient Temp 76 mmHg (65-108) Arterial Blood HCO3 30 mmol/L (21-28) Arterial Blood Base Excess 2 mmol/L (-3-3) FiO2 35 Glucose (Fingerstick) 224 mg/dL (70-99) 269 mg/dL (70-99) 297 mg/dL (70-99) Test 10/13/18 05:43 10/13/18 08:00 Glucose (Fingerstick) 251 mg/dL (70-99) O2 Saturation 95 % (92-99) Arterial Blood pH 7.35 (7.35-7.45) Arterial Blood pCO2 at Patient Temp 54 mmHg (35-46) Arterial Blood pO2 at Patient Temp 83 mmHg (65-108) Arterial Blood HCO3 29 mmol/L (21-28) Arterial Blood Base Excess 2 mmol/L (-3-3) FiO2 35 Microbiology 10/07/18 Blood Culture - Final, Complete NO GROWTH AFTER 5 DAYS 10/08/18 - Final, Complete 10/08/18 - Final, Complete 10/08/18 - Final, Complete 10/08/18 - Final, Complete 10/08/18 - Final, Complete 10/08/18 Gram Stain Evaluation - Final, Complete 10/08/18 Sputum Culture - Final, Complete 10/08/18 Sputum Result 1 - Final, Complete 10/07/18 Urine Culture - Final, Complete 10/07/18 Urine Culture Result 1 (ELEN) - Final, Complete 10/07/18 Antimicrobic Susceptibility - Final, Complete Medications Current Medications Sodium Chloride 1,000 ml @ 1,000 mls/hr Q1H IV Last administered on 10/07/18at 11:27; Start 10/07/18 at 10:52; Stop 10/07/18 at 11:51; Status DC Midazolam HCl 100 ml @ 1 mls/hr 1X ONCE IV Last administered on 10/07/18at 11:20; Start 10/07/18 at 11:15; Stop 10/09/18 at 15:55; Status DC Etomidate (Amidate) 20 mg STK-MED ONCE IV ; Start 10/07/18 at 11:13; Stop 10/07/18 at 11:14; Status DC Succinylcholine Chloride (Anectine) 200 mg STK-MED ONCE .ROUTE ; Start 10/07/18 at 11:13; Stop 10/07/18 at 11:14; Status DC Etomidate (Amidate) 20 mg 1X ONCE IV Last administered on 10/07/18at 11:01; Start 10/07/18 at 11:30; Stop 10/07/18 at 11:33; Status DC Succinylcholine Chloride (Anectine) 100 mg 1X ONCE IV Last administered on 10/07/18at 11:01; Start 10/07/18 at 11:30; Stop 10/07/18 at 11:33; Status DC Albuterol Sulfate (Ventolin Neb Soln) 10 mg 1X ONCE CONT NEB ; Start 10/07/18 at 12:00; Stop 10/07/18 at 12:01; Status DC Methylprednisolone Sodium Succinate (SOLU-Medrol 125MG VIAL) 125 mg 1X ONCE IV Last administered on 10/07/18at 11:52; Start 10/07/18 at 12:00; Stop 10/07/18 at 12:01; Status DC Vancomycin HCl 250 ml @ 250 mls/hr 1X ONCE IV Last administered on 10/07/18at 12:27; Start 10/07/18 at 12:00; Stop 10/07/18 at 12:59; Status DC Levofloxacin/ Dextrose 150 ml @ 100 mls/hr 1X ONCE IV Last administered on 10/07/18at 12:28; Start 10/07/18 at 12:00; Stop 10/07/18 at 13:29; Status DC Sodium Chloride 1,000 ml @ 1,000 mls/hr 1X ONCE IV Last administered on 10/07/18at 12:57; Start 10/07/18 at 12:45; Stop 10/07/18 at 13:44; Status DC Sodium Chloride 1,000 ml @ 1,000 mls/hr 1X ONCE IV Last administered on at 12:58; Start 10/07/18 at 12:45; Stop 10/07/18 at 13:44; Status DC Dextrose (Dextrose 50%-Water Syringe) 25 gm 1X ONCE IV Last administered on 10/07/18at 12:59; Start 10/07/18 at 12:45; Stop 10/07/18 at 12:46; Status DC Insulin Human Regular (HumuLIN R VIAL) 10 unit 1X ONCE IV Last administered on 10/07/18at 13:00; Start 10/07/18 at 12:45; Stop 10/07/18 at 12:46; Status DC Sodium Bicarbonate (Sodium Bicarb Adult 8.4% Syr) 50 meq 1X ONCE IV Last administered on 10/07/18at 13:07; Start 10/07/18 at 12:45; Stop 10/07/18 at 12:46; Status DC Sodium Chloride 1,000 ml @ 100 mls/hr Q10H IV ; Start 10/07/18 at 16:00; Stop 10/07/18 at 16:00; Status DC Pantoprazole Sodium (PROTONIX VIAL for IV PUSH) 40 mg DAILYAC IVP Last administered on 10/08/18at 08:25; Start 10/07/18 at 13:30; Stop 10/08/18 at 09:54; Status DC Pantoprazole Sodium (PROTONIX VIAL for IV PUSH) 40 mg 1X ONCE IVP ; Start 10/07/18 at 12:45; Stop 10/07/18 at 12:46; Status UNV Heparin Sodium (Porcine) (Heparin Sodium) 5,000 unit Q8HRS SQ Last administered on 10/13/18at 05:41; Start 10/07/18 at 14:00 Levofloxacin/ Dextrose (Levaquin Per Pharmacy) 1 each PRN DAILY PRN MC SEE COMMENTS; Start 10/07/18 at 12:45; Stop 10/08/18 at 07:33; Status DC Insulin Human Lispro (HumaLOG) 0-9 UNITS TIDWMEALS SQ ; Start 10/07/18 at 17:00; Stop 10/07/18 at 17:00; Status DC Dextrose (Dextrose 50%-Water Syringe) 12.5 gm PRN Q15MIN PRN IV SEE COMMENTS; Start 10/07/18 at 12:45 Albuterol/ Ipratropium (Duoneb) 3 ml RTQID NEB ; Start 10/07/18 at 16:00; Status Cancel Methylprednisolone Sodium Succinate (SOLU-Medrol 40MG VIAL) 40 mg Q8HRS IV Last administered on 10/13/18at 05:44; Start 10/07/18 at 22:00 Acetaminophen (Tylenol) 650 mg PRN Q6HRS PRN PEG MILD PAIN / TEMP Last administered on 10/08/18at 08:25; Start 10/07/18 at 12:45 Morphine Sulfate (Morphine Sulfate) 2 mg PRN Q2HR PRN IV PAIN Last administered on 10/13/18at 09:54; Start 10/07/18 at 12:45 Ondansetron HCl (Zofran) 4 mg PRN Q6HRS PRN IV NAUSEA/VOMITING; Start 10/07/18 at 12:45 Norepinephrine Bitartrate 250 ml @ 1.875 mls/ hr CONT PRN IV SEE I/O RECORD Last administered on 10/07/18at 14:01; Start 10/07/18 at 14:00 Sodium Chloride 1,000 ml @ 150 mls/hr Q6H40M IV Last administered on 10/08/18at 15:09; Start 10/07/18 at 14:00; Stop 10/08/18 at 13:59; Status DC Calcium Gluconate (Calcium Gluconate) 1,000 mg 1X ONCE IVP ; Start 10/07/18 at 13:30; Stop 10/07/18 at 13:31; Status Cancel Sodium Polystyrene Sulfonate (Kayexalate) 15 gm 1X ONCE PO Last administered on 10/07/18at 14:10; Start 10/07/18 at 13:30; Stop 10/07/18 at 13:31; Status DC Pantoprazole Sodium (PROTONIX VIAL for IV PUSH) 40 mg STK-MED ONCE IVP ; Start 10/07/18 at 12:52; Stop 10/07/18 at 12:55; Status DC Levofloxacin/ Dextrose 150 ml @ 100 mls/hr Q48H IV ; Start 10/09/18 at 12:00; Stop 10/09/18 at 12:00; Status DC Calcium Gluconate 1000 mg/Sodium Chloride 110 ml @ 220 mls/hr 1X ONCE IV Last administered on 10/07/18at 14:23; Start 10/07/18 at 15:00; Stop 10/07/18 at 15:29; Status DC Sodium Chloride 1,000 ml @ 1,000 mls/hr 1X ONCE IV Last administered on 10/07/18at 14:50; Start 10/07/18 at 15:00; Stop 10/07/18 at 15:59; Status DC Sodium Chloride 1,000 ml @ 999 mls/hr 1X ONCE IV ; Start 10/07/18 at 15:00; Stop 10/07/18 at 16:00; Status DC Albuterol Sulfate (Ventolin Neb Soln) 2.5 mg PRN Q2HR PRN NEB DYSPNEA; Start 10/07/18 at 15:00 Albuterol/ Ipratropium (Duoneb) 3 ml RTQID NEB Last administered on 10/13/18at 0 7:41; Start 10/07/18 at 16:00 Insulin Human Lispro (HumaLOG) 0-9 UNITS Q6HRS SQ Last administered on 10/13/18at 05:46; Start 10/07/18 at 18:00 Meropenem 500 mg/ Sodium Chloride 50 ml @ 100 mls/hr Q8HRS IV Last administered on 10/13/18at 05:44; Start 10/07/18 at 17:00 Midazolam HCl 100 ml @ 5 mls/hr CONT PRN IV SEE I/O RECORD Last administered on 10/13/18at 01:14; Start 10/08/18 at 04:15 Lactobacillus Rhamnosus (Culturelle) 1 cap BID PO ; Start 10/08/18 at 09:00; Stop 10/09/18 at 15:58; Status DC Famotidine (Pepcid Vial) 20 mg QHS IVP Last administered on 10/12/18at 20:46; Start 10/08/18 at 21:00 Linezolid/Dextrose 300 ml @ 300 mls/hr Q12HR IV Last administered on 10/09/18at 20:58; Start 10/08/18 at 11:30; Stop 10/10/18 at 07:24; Status DC Doxycycline Hyclate 100 mg/ Dextrose 100 ml @ 50 mls/hr Q12HR IV Last administered on 10/13/18at 07:57; Start 10/09/18 at 13:00 Aspirin (Ecotrin) 81 mg DAILYWBKFT PO Last administered on 10/13/18at 07:57; Start 10/10/18 at 08:00 Furosemide (Lasix) 40 mg 1X ONCE IVP Last administered on 10/11/18at 08:36; Start 10/11/18 at 09:00; Stop 10/11/18 at 09:01; Status DC Lisinopril (Prinivil) 10 mg DAILY PO Last administered on 10/12/18at 07:54; Start 10/11/18 at 14:00 Furosemide (Lasix) 40 mg DAILY IVP Last administered on 10/13/18at 08:03; Start 10/12/18 at 12:30 Amlodipine Besylate (Norvasc) 5 mg DAILY PO Last administered on 10/12/18at 13:45; Start 10/12/18 at 12:30 Hydralazine HCl (Apresoline Inj) 10 mg PRN Q4HRS PRN IVP ELEVATED BP, SEE COMMENTS; Start 10/12/18 at 11:45 Active Scripts Active Reported Proair Hfa (Albuterol Sulfate) 8.5 Gm Hfa.aer.ad 1 Puff INH PRN Q6HRS PRN Oxazepam 30 Mg Capsule 30 Mg PO QHS Vitals/I & O Vital Sign - Last 24 Hours 10/12/18 10/12/18 10/12/18 10/12/18 10:00 10:14 10:26 11:00 Pulse 70 68 Resp 27 29 B/P (MAP) 167/57 (93) 150/67 (94) Pulse Ox 97 98 99 O2 Delivery Ventilator Ventilator Ventilator Ventilator 10/12/18 10/12/18 10/12/18 10/12/18 11:01 11:54 12:00 12:00 Temp 98.4 98.4 Pulse 60 Resp 25 20 B/P (MAP) 183/57 (99) Pulse Ox 99 99 O2 Delivery Ventilator Ventilator Mechanical Ventilator Ventilator 10/12/18 10/12/18 10/12/18 10/12/18 12:28 13:00 13:45 14:00 Pulse 64 64 62 Resp 20 20 B/P (MAP) 183/66 (105) 155/63 155/63 (93) Pulse Ox 99 O2 Delivery Ventilator Ventilator Ventilator 10/12/18 10/12/18 10/12/18 10/12/18 14:18 15:00 15:10 16:00 Pulse 50 Resp 19 B/P (MAP) 102/53 (69) Pulse Ox 95 O2 Delivery Ventilator Ventilator Ventilator Mechanical Ventilator 10/12/18 10/12/18 10/12/18 10/12/18 16:00 17:00 17:16 18:00 Temp 97.8 97.8 Pulse 46 46 54 Resp 21 21 21 B/P (MAP) 109/46 (67) 106/50 (68) 113/50 (71) Pulse Ox 96 100 97 97 O2 Delivery Ventilator Ventilator Ventilator Ventilator 10/12/18 10/12/18 10/12/18 10/12/18 19:00 19:23 19:42 20:00 Temp 99.0 99.0 Pulse 58 54 Resp 22 22 20 B/P (MAP) 134/57 (82) 119/53 (75) Pulse Ox 97 97 95 98 O2 Delivery Ventilator Ventilator Ventilator Ventilator 10/12/18 10/12/18 10/12/18 10/12/18 20:00 21:00 22:00 23:00 Pulse 54 50 56 Resp 21 21 22 B/P (MAP) 103/54 (70) 115/57 (76) 107/53 (71) Pulse Ox 97 96 97 O2 Delivery Mechanical Ventilator Ventilator Ventilator Ventilator 10/12/18 10/12/18 10/13/18 10/13/18 23:33 23:59 00:00 01:00 Temp 97.5 97.5 Pulse 50 48 Resp 21 21 B/P (MAP) 118/64 (82) 92/43 (59) Pulse Ox 95 97 98 O2 Delivery Ventilator Mechanical Ventilator Ventilator Ventilator 10/13/18 10/13/18 10/13/18 10/13/18 01:46 02:00 02:23 02:53 Pulse 48 Resp 22 22 22 B/P (MAP) 103/54 (70) Pulse Ox 96 98 98 100 O2 Delivery Ventilator Ventilator Ventilator Ventilator 10/13/18 10/13/18 10/13/18 10/13/18 03:00 03:36 04:00 04:00 Temp 97.7 97.7 Pulse 58 50 Resp 22 22 B/P (MAP) 125/46 (72) 113/47 (69) Pulse Ox 99 95 100 O2 Delivery Ventilator Ventilator Ventilator Mechanical Ventilator 10/13/18 10/13/18 10/13/18 10/13/18 05:00 05:41 06:00 07:00 Pulse 66 62 56 Resp 22 22 21 B/P (MAP) 95/44 (61) 104/39 (60) 109/39 (62) Pulse Ox 100 100 100 100 O2 Delivery Ventilator Ventilator Ventilator Ventilator 10/13/18 10/13/18 10/13/18 10/13/18 07:41 08:00 08:00 09:00 Temp 98.8 98.8 Pulse 58 60 Resp 26 21 B/P (MAP) 121/65 (83) 117/49 (71) Pulse Ox 100 99 99 O2 Delivery Ventilator Mechanical Ventilator Ventilator Ventilator 10/13/18 09:09 Pulse Ox 100 O2 Delivery Ventilator Intake and Output 10/12/18 10/12/18 10/13/18 15:00 23:00 07:00 Intake Total 400 ml 652.35 ml 1015 ml Output Total 1045 ml 1115 ml 620 ml Balance -645 ml -462.65 ml 395 ml SANDRA OROURKE MD October 13, 2018 09:59
--- NOTE | 2018-10-13 11:20 | PDOC ---
PULMONARY PROGRESS NOTES Subjective PT CONTINUES TO FAILS CPAP TRIALS WITH WORSENING HYPERCAPNIA AC MODE FAMILY WANTS TO PROCEED WITH TRACH Vitals Vital Signs Date Time Temp Pulse Resp B/P (MAP) Pulse Ox O2 Delivery O2 Flow Rate FiO2 10/13/18 10:00 66 21 141/53 (82) 100 Ventilator 10/13/18 08:00 98.8 98.8 General: Alert Lungs: Other (DECREASE BS) Cardiovascular: S1, S2 Abdomen: Soft Extremities: Other (trace edema) Skin: Warm Labs Laboratory Tests Test 10/11/18 11:34 10/11/18 18:41 10/12/18 00:33 10/12/18 05:16 Glucose (Fingerstick) 191 mg/dL (70-99) 271 mg/dL (70-99) 233 mg/dL (70-99) White Blood Count 9.9 x10^3/uL (4.0-11.0) Red Blood Count 4.08 x10^6/uL (4.30-5.70) Hemoglobin 11.8 g/dL (13.0-17.5) Hematocrit 37.3 % (39.0-53.0) Mean Corpuscular Volume 91 fL (79-100) Mean Corpuscular Hemoglobin 29 pg (25-35) Mean Corpuscular Hemoglobin Concent 32 g/dL (31-37) Red Cell Distribution Width 16.7 % (11.5-14.5) Platelet Count 144 x10^3/uL (140-400) Neutrophils (%) (Auto) 87 % (31-73) Lymphocytes (%) (Auto) 6 % (24-48) Monocytes (%) (Auto) 7 % (0-9) Eosinophils (%) (Auto) 0 % (0-3) Basophils (%) (Auto) 0 % (0-3) Neutrophils # (Auto) 8.6 x10^3uL (1.8-7.7) Lymphocytes # (Auto) 0.6 x10^3/uL (1.0-4.8) Monocytes # (Auto) 0.6 x10^3/uL (0.0-1.1) Eosinophils # (Auto) 0.0 x10^3/uL (0.0-0.7) Basophils # (Auto) 0.0 x10^3/uL (0.0-0.2) Sodium Level 143 mmol/L (136-145) Potassium Level 5.2 mmol/L (3.5-5.1) Chloride Level 107 mmol/L (98-107) Carbon Dioxide Level 31 mmol/L (21-32) Anion Gap 5 (6-14) Blood Urea Nitrogen 52 mg/dL (8-26) Creatinine 1.3 mg/dL (0.7-1.3) Estimated GFR (Cockcroft-Gault) 53.7 BUN/Creatinine Ratio 40 (6-20) Glucose Level 305 mg/dL (70-99) Calcium Level 7.9 mg/dL (8.5-10.1) Total Bilirubin 0.6 mg/dL (0.2-1.0) Aspartate Amino Transf (AST/SGOT) 20 U/L (15-37) Alanine Aminotransferase (ALT/SGPT) 72 U/L (16-63) Alkaline Phosphatase 49 U/L (46-116) Total Protein 5.6 g/dL (6.4-8.2) Albumin 2.4 g/dL (3.4-5.0) Albumin/Globulin Ratio 0.8 (1.0-1.7) Test 10/12/18 05:47 10/12/18 09:15 10/12/18 10:10 10/12/18 11:26 Glucose (Fingerstick) 277 mg/dL (70-99) 224 mg/dL (70-99) O2 Saturation 95 % (92-99) 93 % (92-99) Arterial Blood pH 7.36 (7.35-7.45) 7.29 (7.35-7.45) Arterial Blood pCO2 at Patient Temp 52 mmHg (35-46) 64 mmHg (35-46) Arterial Blood pO2 at Patient Temp 80 mmHg (65-108) 76 mmHg (65-108) Arterial Blood HCO3 28 mmol/L (21-28) 30 mmol/L (21-28) Arterial Blood Base Excess 2 mmol/L (-3-3) 2 mmol/L (-3-3) FiO2 35 35 Test 10/12/18 18:09 10/12/18 23:53 10/13/18 05:43 10/13/18 08:00 Glucose (Fingerstick) 269 mg/dL (70-99) 297 mg/dL (70-99) 251 mg/dL (70-99) O2 Saturation 95 % (92-99) Arterial Blood pH 7.35 (7.35-7.45) Arterial Blood pCO2 at Patient Temp 54 mmHg (35-46) Arterial Blood pO2 at Patient Temp 83 mmHg (65-108) Arterial Blood HCO3 29 mmol/L (21-28) Arterial Blood Base Excess 2 mmol/L (-3-3) FiO2 35 Laboratory Tests Test 10/12/18 11:26 10/12/18 18:09 10/12/18 23:53 10/13/18 05:43 Glucose (Fingerstick) 224 mg/dL (70-99) 269 mg/dL (70-99) 297 mg/dL (70-99) 251 mg/dL (70-99) Test 10/13/18 08:00 O2 Saturation 95 % (92-99) Arterial Blood pH 7.35 (7.35-7.45) Arterial Blood pCO2 at Patient Temp 54 mmHg (35-46) Arterial Blood pO2 at Patient Temp 83 mmHg (65-108) Arterial Blood HCO3 29 mmol/L (21-28) Arterial Blood Base Excess 2 mmol/L (-3-3) FiO2 35 Medications Active Scripts Medications Dose Route/Sig Max Daily Dose Days Date Category Proair Hfa (Albuterol Sulfate) 8.5 Gm Hfa.aer.ad 1 Puff INH PRN Q6HRS PRN 10/07/18 Reported Oxazepam 30 Mg Capsule 30 Mg PO QHS 10/07/18 Reported Comments CXR 10/13 IMPROVING bilateral basal infiltrates Impression . 1. Acute on chronic hypoxemic/ hypercapnic respiratory failure. 2. Acute exacerbation of chronic obstructive pulmonary disease. suspect severe COPD 3. Abnormal x-ray compatible with pneumonia,, cannot exclude CHF, improved. 4. Gram-negative, possible gram-positive pneumonia. 5. No history given of diabetes, hypertension or renal failure. 6. History of alcohol intake, discontinued approximately 4 years ago. 7. Possible sepsis POA, improved 8. Positive mycoplasma serology 9. EF 40% IMPRESSION: 1. Diffuse interstitial changes, increased from prior study. Stimulated increasing interstitial edema or atypical pneumonia. 2. Left basilar consolidation with moderate size left pleural effusion, increased from prior study. Plan . PT CONTINUES TO FAIL CPAP TRIALS ABG NOTED YESTERDAY FAMILY WANTS TO PROCEED WITH TRACH CVS CONSULTED CONTINUE ANTIBX PER ID DIURESIS FEVER IMPROVED STEROIDS DVT GI PROPH ENTERAL FEEDING D/W ENTIRE FAMILY . TRACH LIKELY TUESDAY ENDER MUÑOZ MD October 13, 2018 11:20
--- NOTE | 2018-10-13 14:09 | PDOC2 ---
GI CONSULT Reason For Consult: PEG placement HPI: HPI: 78 y/o male found down/minimally responsive at home, admitted 10/07/18 w/ resp failure - remains intubated (but awake on NG feeds) w/ plans for tracheostomy placement next week. Family ( Laury, daughter, and son-in-law present this afternoon) and pt also wish to proceed w/ PEG placement. GI-delvalle, h/o heartburn and takes Tums PRN. No h/o dysphagia, chronic n/v, abd pain, or bleeding. Some h/o alternating bowel habits. Had an EGD at some point - recalls no significant findings. Had a colonoscopy w/ polyps about 7 years ago. S/p cholecystectomy ("not functioning"). No liver, pancreas, or PUD history. Was taking ASA 81mg QD prior to admission. PMH: PMH: COPD, CVA, DM ventral hernia repair, cholecystectomy, hip surgery FH: Family History: No pertinent hx Social History: Smoke: Quit ALCOHOL: other (heavy in the past, sober x 7 years) Drugs: None ROS: Difficult to obtain - intubated - see HPI. Vitals: Vitals: Vital Signs Date Time Temp Pulse Resp B/P (MAP) Pulse Ox O2 Delivery O2 Flow Rate FiO2 10/13/18 12:00 Mechanical Ventilator 10/13/18 12:00 98.7 50 22 109/51 (70) 89 98.7 Labs: Labs: Laboratory Tests Test 10/12/18 18:09 10/12/18 23:53 10/13/18 05:43 10/13/18 08:00 Glucose (Fingerstick) 269 mg/dL (70-99) 297 mg/dL (70-99) 251 mg/dL (70-99) O2 Saturation 95 % (92-99) Arterial Blood pH 7.35 (7.35-7.45) Arterial Blood pCO2 at Patient Temp 54 mmHg (35-46) Arterial Blood pO2 at Patient Temp 83 mmHg (65-108) Arterial Blood HCO3 29 mmol/L (21-28) Arterial Blood Base Excess 2 mmol/L (-3-3) FiO2 35 Test 10/13/18 11:52 Glucose (Fingerstick) 189 mg/dL (70-99) Allergies: Coded Allergies: Penicillins (Verified Allergy, Intermediate, 10/07/18) erythromycin base (Verified Allergy, Intermediate, 10/07/18) Medications: Please see EMR. Imaging: Imaging: CXR 10/13 Comparison is made to yesterday's study. The ET tube tip lies approximately 9 cm above the lis. An NG tube extends into the stomach. A right jugular central venous catheter extends into the superior vena cava. The heart size is normal. There are mild ongoing bibasilar opacities compatible with mild residual infiltrate and probable pleural fluid. The findings appear unchanged since yesterday's study, but have improved slightly since older exams such as the 10/09/2018 study. There is no evidence of pneumothorax. No new abnormality is detected. IMPRESSION: No significant change since yesterday's exam. Echocardiogram 10/09 <Conclusion> The systolic function is moderately impaired. The Ejection Fraction is 40%. There is global hypokinesis of the left ventricle. The right ventricle is mildly to moderately hypertrophied. The right ventricle is mildly to moderately dilated. Head CT 10/07 Findings: No previous studies are available for comparison. There is generalized parenchymal atrophy. Areas of decreased attenuation are seen within the periventricular and subcortical white matter of both cerebral hemispheres consistent with areas of small vessel ischemic disease. An area encephalomalacia seen involving the right temporal lobe which extends to involve the right parietal lobe. No acute parenchymal abnormality is seen. No extra-axial fluid collection is noted. No skull fracture is seen. Mild mucosal thickening is seen throughout the visualized paranasal sinuses. Impression: No acute intracranial abnormality is seen. PE: GEN: intubated HEENT: Atraumatic, PERRL - NGT in place w/ feeds running LUNGS: vent HEART: bradycardic - distant ABD: NABS, S/ND/NT EXTREMITY: BLE edema SKIN: BLE SCDs NEURO/PSYCH: A & O A/P: A/P: Resp failure - COPD, pneumonia, CHF - remains intubated NSTEMI, cardiomyopathy UTI H/o heartburn CRC screen, h/o polyps - last colonoscopy ~7 years ago S/p cholecystectomy H/o alcohol and tobacco abuse - quit -- Plans for trach placement on Tuesday. Will review timing of PEG w/ Dr. Garcia (?Tuesday). Agree w/ IV acid-cupola liner helper. Note orders to recheck coags on 10/15. Discussed PEG procedure/risks w/ family and pt. Per office records, EGD and colonoscopy 08/2007 (Dr. Doan): -H. pylori negative gastritis and esophageal biopsy negative for Keene's. -hyperplastic polyp in proximal ascending colon JO-ANN CHONG October 13, 2018 14:09
--- NOTE | 2018-10-13 14:10 | PDOC ---
CARDIOLOGY PROGRESS NOTE SUBJECTIVE: No new events. He is actually quite awake today. Still on ventilator Denies any chest pain. OBJECTIVE: Vital SIgns: Vital Signs Date Time Temp Pulse Resp B/P (MAP) Pulse Ox O2 Delivery O2 Flow Rate FiO2 10/13/18 13:54 20 Ventilator 10/13/18 12:00 98.7 50 109/51 (70) 89 98.7 I & O Intake and Output 10/13/18 07:00 Intake Total 2067.35 ml Output Total 2780 ml Balance -712.65 ml IV Total 490.35 ml Tube Feeding 1427 ml Other 150 ml Output Urine Total 2780 ml Gastric Drainage Total 0 ml Objective: More alert Normal heart tones Lungs with rhonchi Trace edema. Soft abd. CURRENT MEDICATIONS: Current Medications Medications (Trade) Dose Ordered Sig/Eric Start Time Stop Time Status Last Admin Dose Admin Acetaminophen (Tylenol) 650 mg PRN Q6HRS PRN 10/07/18 12:45 10/08/18 08:25 650 MG Albuterol Sulfate (Ventolin Neb Soln) 2.5 mg PRN Q2HR PRN 10/07/18 15:00 Albuterol/ Ipratropium (Duoneb) 3 ml RTQID 10/07/18 16:00 10/13/18 11:46 3 ML Amlodipine Besylate (Norvasc) 5 mg DAILY 10/12/18 12:30 10/12/18 13:45 5 MG Aspirin (Ecotrin) 81 mg DAILYWBKFT 10/10/18 08:00 10/13/18 07:57 81 MG Calcium Gluconate (Calcium Gluconate) 1,000 mg 1X ONCE 10/07/18 13:30 10/07/18 13:31 Cancel Calcium Gluconate 1000 mg/Sodium Chloride 110 ml @ 220 mls/hr 1X ONCE 10/07/18 15:00 10/07/18 15:29 DC 10/07/18 14:23 220 MLS/HR Dextrose (Dextrose 50%-Water Syringe) 12.5 gm PRN Q15MIN PRN 10/07/18 12:45 Doxycycline Hyclate 100 mg/ Dextrose 100 ml @ 50 mls/hr Q12HR 10/09/18 13:00 10/13/18 07:57 50 MLS/HR Etomidate (Amidate) 20 mg 1X ONCE 10/07/18 11:30 10/07/18 11:33 DC 10/07/18 11:01 20 MG Famotidine (Pepcid Vial) 20 mg QHS 10/08/18 21:00 10/12/18 20:46 20 MG Furosemide (Lasix) 40 mg DAILY 10/12/18 12:30 10/13/18 08:03 40 MG Heparin Sodium (Porcine) (Heparin Sodium) 5,000 unit Q8HRS 10/07/18 14:00 10/13/18 05:41 5,000 UNIT Hydralazine HCl (Apresoline Inj) 10 mg PRN Q4HRS PRN 10/12/18 11:45 Insulin Glargine (Lantus) 10 units QHS 10/13/18 21:00 Insulin Human Lispro (HumaLOG) 0-9 UNITS Q6HRS 10/07/18 18:00 10/13/18 11:54 4 UNITS Insulin Human Regular (HumuLIN R VIAL) 10 unit 1X ONCE 10/07/18 12:45 10/07/18 12:46 DC 10/07/18 13:00 10 UNIT Lactobacillus Rhamnosus (Culturelle) 1 cap BID 10/08/18 09:00 10/09/18 15:58 DC Levofloxacin/ Dextrose 150 ml @ 100 mls/hr Q48H 10/09/18 12:00 10/09/18 12:00 DC Levofloxacin/ Dextrose (Levaquin Per Pharmacy) 1 each PRN DAILY PRN 10/07/18 12:45 10/08/18 07:33 DC Linezolid/Dextrose 300 ml @ 300 mls/hr Q12HR 10/08/18 11:30 10/10/18 07:24 DC 10/09/18 20:58 300 MLS/HR Lisinopril (Prinivil) 10 mg DAILY 10/11/18 14:00 10/12/18 07:54 10 MG Meropenem 500 mg/ Sodium Chloride 50 ml @ 100 mls/hr Q8HRS 10/07/18 17:00 10/13/18 05:44 100 MLS/HR Methylprednisolone Sodium Succinate (SOLU-Medrol 40MG VIAL) 40 mg Q8HRS 10/07/18 22:00 10/13/18 05:44 40 MG Methylprednisolone Sodium Succinate (SOLU-Medrol 125MG VIAL) 125 mg 1X ONCE 10/07/18 12:00 10/07/18 12:01 DC 10/07/18 11:52 125 MG Midazolam HCl 100 ml @ 5 mls/hr CONT PRN 10/08/18 04:15 10/13/18 01:14 5 MLS/HR Morphine Sulfate (Morphine Sulfate) 2 mg PRN Q2HR PRN 10/07/18 12:45 10/13/18 13:54 2 MG Norepinephrine Bitartrate 250 ml @ 1.875 mls/ hr CONT PRN 10/07/18 14:00 10/07/18 14:01 13.125 MLS/HR Ondansetron HCl (Zofran) 4 mg PRN Q6HRS PRN 10/07/18 12:45 Pantoprazole Sodium (PROTONIX VIAL for IV PUSH) 40 mg STK-MED ONCE 10/07/18 12:52 10/07/18 12:55 DC Sodium Polystyrene Sulfonate (Kayexalate) 15 gm 1X ONCE 10/07/18 13:30 10/07/18 13:31 DC 10/07/18 14:10 15 GM Sodium Bicarbonate (Sodium Bicarb Adult 8.4% Syr) 50 meq 1X ONCE 10/07/18 12:45 10/07/18 12:46 DC 10/07/18 13:07 50 MEQ Sodium Chloride 1,000 ml @ 999 mls/hr 1X ONCE 10/07/18 15:00 10/07/18 16:00 DC Succinylcholine Chloride (Anectine) 100 mg 1X ONCE 10/07/18 11:30 10/07/18 11:33 DC 10/07/18 11:01 100 MG Vancomycin HCl 250 ml @ 250 mls/hr 1X ONCE 10/07/18 12:00 10/07/18 12:59 DC 10/07/18 12:27 250 MLS/HR DIAGNOSTIC TESTING: No new cardiac tests. labs reviewed. ASSESSMENT: 1. ACute on chronic hypercapneic resp failure 2. Elevated troponin likely due to #1 3. Mild CMP, likely due to #1 4. Bradycardia with PAC's. PLAN: 1. ok to hold amlodipine and lisinopril for now. 2. Use IV hydralazine for any BP spikes. Due to his pain and various clinical issues, he has labile BP's. 3. Supportive care. Unless he recovers reasonably, will defer any further ischemic testing at this time. Patient and family agreeable. ROXANN MORALES MD October 13, 2018 14:10
--- NOTE | 2018-10-13 14:18 | NUR ---
Dr Syed here. Talked with pt and family. Trach planned for Tuesday. Dr Garcia nurse here. PEG planned for
--- NOTE | 2018-10-13 15:11 | PDOC2 ---
CONSULT Date of Consult Date of Consult DATE: 10/13/18 TIME: 15:10 Reason for Consult Reason for Consult: Ventilator dependent respiratory failure Referring Physician Referring Physician: Dr Sanon Identification/Chief Complaint Chief Complaint VDRF Source Source: Chart review, Patient History of Present Illness Reason for Visit: The patient is a 78-year-old male who was admitted on October 07, after being found down unresponsive. He apparently did not lose a pulse. He was intubated upon admission and remains on the ventilator ever since. He apparently has a history of severe COPD and has been oxygen dependent at home, although according to his , he is not been using his oxygen recently. He has a history of lifelong heavy smoking 3ppd, but did quit 3 years ago. He has failed several weaning trials. He is currently hemodynamically stable and on minimal vent settings. Was consulted to consider the patient for tracheostomy. His chest x-ray shows a left-sided pleural effusion. Past Medical History Pulmonary: Bronchitis, COPD Past Surgical History Past Surgical History: No pertinent history Family History Family History: Family History Unknown Social History Quit ALCOHOL: other (heavy in the past, sober x 7 years) Drugs: None Current Problem List Problem List Problems Medical Problems: (1) Acute respiratory distress Status: Acute (2) CAP (community acquired pneumonia) Status: Acute (3) CHF (congestive heart failure) Status: Acute (4) Elevated liver function tests Status: Acute (5) Elevated troponin I level Status: Acute (6) Hyperkalemia Status: Acute (7) Renal insufficiency Status: Acute (8) Sepsis Status: Acute (9) Unresponsiveness Status: Acute (10) Urinary tract infection Status: Acute Current Medications Current Medications Current Medications Sodium Chloride 1,000 ml @ 1,000 mls/hr Q1H IV Last administered on 10/07/18at 11:27; Start 10/07/18 at 10:52; Stop 10/07/18 at 11:51; Status DC Midazolam HCl 100 ml @ 1 mls/hr 1X ONCE IV Last administered on 10/07/18at 11:20; Start 10/07/18 at 11:15; Stop 10/09/18 at 15:55; Status DC Etomidate (Amidate) 20 mg STK-MED ONCE IV ; Start 10/07/18 at 11:13; Stop 10/07/18 at 11:14; Status DC Succinylcholine Chloride (Anectine) 200 mg STK-MED ONCE .ROUTE ; Start 10/07/18 at 11:13; Stop 10/07/18 at 11:14; Status DC Etomidate (Amidate) 20 mg 1X ONCE IV Last administered on 10/07/18at 11:01; Start 10/07/18 at 11:30; Stop 10/07/18 at 11:33; Status DC Succinylcholine Chloride (Anectine) 100 mg 1X ONCE IV Last administered on 10/07/18at 11:01; Start 10/07/18 at 11:30; Stop 10/07/18 at 11:33; Status DC Albuterol Sulfate (Ventolin Neb Soln) 10 mg 1X ONCE CONT NEB ; Start 10/07/18 at 12:00; Stop 10/07/18 at 12:01; Status DC Methylprednisolone Sodium Succinate (SOLU-Medrol 125MG VIAL) 125 mg 1X ONCE IV Last administered on 10/07/18at 11:52; Start 10/07/18 at 12:00; Stop 10/07/18 at 12:01; Status DC Vancomycin HCl 250 ml @ 250 mls/hr 1X ONCE IV Last administered on 10/07/18at 12:27; Start 10/07/18 at 12:00; Stop 10/07/18 at 12:59; Status DC Levofloxacin/ Dextrose 150 ml @ 100 mls/hr 1X ONCE IV Last administered on 10/07/18at 12:28; Start 10/07/18 at 12:00; Stop 10/07/18 at 13:29; Status DC Sodium Chloride 1,000 ml @ 1,000 mls/hr 1X ONCE IV Last administered on 10/07/18at 12:57; Start 10/07/18 at 12:45; Stop 10/07/18 at 13:44; Status DC Sodium Chloride 1,000 ml @ 1,000 mls/hr 1X ONCE IV Last administered on 10/07/18at 12:58; Start 10/07/18 at 12:45; Stop 10/07/18 at 13:44; Status DC Dextrose (Dextrose 50%-Water Syringe) 25 gm 1X ONCE IV Last administered on 10/07/18at 12:59; Start 10/07/18 at 12:45; Stop 10/07/18 at 12:46; Status DC Insulin Human Regular (HumuLIN R VIAL) 10 unit 1X ONCE IV Last administered on 10/07/18at 13:00; Start 10/07/18 at 12:45; Stop 10/07/18 at 12:46; Status DC Sodium Bicarbonate (Sodium Bicarb Adult 8.4% Syr) 50 meq 1X ONCE IV Last administered on 10/07/18at 13:07; Start 10/07/18 at 12:45; Stop 10/07/18 at 12:46; Status DC Sodium Chloride 1,000 ml @ 100 mls/hr Q10H IV ; Start 10/07/18 at 16:00; Stop 10/07/18 at 16:00; Status DC Pantoprazole Sodium (PROTONIX VIAL for IV PUSH) 40 mg DAILYAC IVP Last administered on 10/08/18at 08:25; Start 10/07/18 at 13:30; Stop 10/08/18 at 09:54; Status DC Pantoprazole Sodium (PROTONIX VIAL for IV PUSH) 40 mg 1X ONCE IVP ; Start 10/07/18 at 12:45; Stop 10/07/18 at 12:46; Status UNV Heparin Sodium (Porcine) (Heparin Sodium) 5,000 unit Q8HRS SQ Last administered on 10/13/18at 14:47; Start 10/07/18 at 14:00 Levofloxacin/ Dextrose (Levaquin Per Pharmacy) 1 each PRN DAILY PRN MC SEE COMMENTS; Start 10/07/18 at 12:45; Stop 10/08/18 at 07:33; Status DC Insulin Human Lispro (HumaLOG) 0-9 UNITS TIDWMEALS SQ ; Start 10/07/18 at 17:00; Stop 10/07/18 at 17:00; Status DC Dextrose (Dextrose 50%-Water Syringe) 12.5 gm PRN Q15MIN PRN IV SEE COMMENTS; Start 10/07/18 at 12:45 Albuterol/ Ipratropium (Duoneb) 3 ml RTQID NEB ; Start 10/07/18 at 16:00; Status Cancel Methylprednisolone Sodium Succinate (SOLU-Medrol 40MG VIAL) 40 mg Q8HRS IV Last administered on 10/13/18at 14:46; Start 10/07/18 at 22:00 Acetaminophen (Tylenol) 650 mg PRN Q6HRS PRN PEG MILD PAIN / TEMP Last administered on 10/08/18at 08:25; Start 10/07/18 at 12:45 Morphine Sulfate (Morphine Sulfate) 2 mg PRN Q2HR PRN IV PAIN Last administered on 10/13/18at 13:54; Start 10/07/18 at 12:45 Ondansetron HCl (Zofran) 4 mg PRN Q6HRS PRN IV NAUSEA/VOMITING; Start 10/07/18 at 12:45 Norepinephrine Bitartrate 250 ml @ 1.875 mls/ hr CONT PRN IV SEE I/O RECORD Last administered on 10/07/18at 14:01; Start 10/07/18 at 14:00 Sodium Chloride 1,000 ml @ 150 mls/hr Q6H40M IV Last administered on 10/08/18at 15:09; Start 10/07/18 at 14:00; Stop 10/08/18 at 13:59; Status DC Calcium Gluconate (Calcium Gluconate) 1,000 mg 1X ONCE IVP ; Start 10/07/18 at 13:30; Stop 10/07/18 at 13:31; Status Cancel Sodium Polystyrene Sulfonate (Kayexalate) 15 gm 1X ONCE PO Last administered on 10/07/18at 14:10; Start 10/07/18 at 13:30; Stop 10/07/18 at 13:31; Status DC Pantoprazole Sodium (PROTONIX VIAL for IV PUSH) 40 mg STK-MED ONCE IVP ; Start 10/07/18 at 12:52; Stop 10/07/18 at 12:55; Status DC Levofloxacin/ Dextrose 150 ml @ 100 mls/hr Q48H IV ; Start 10/09/18 at 12:00; Stop 10/09/18 at 12:00; Status DC Calcium Gluconate 1000 mg/Sodium Chloride 110 ml @ 220 mls/hr 1X ONCE IV Last administered on 10/07/18at 14:23; Start 10/07/18 at 15:00; Stop 10/07/18 at 15:29; Status DC Sodium Chloride 1,000 ml @ 1,000 mls/hr 1X ONCE IV Last administered on 10/07/18at 14:50; Start 10/07/18 at 15:00; Stop 10/07/18 at 15:59; Status DC Sodium Chloride 1,000 ml @ 999 mls/hr 1X ONCE IV ; Start 10/07/18 at 15:00; Stop 10/07/18 at 16:00; Status DC Albuterol Sulfate (Ventolin Neb Soln) 2.5 mg PRN Q2HR PRN NEB DYSPNEA; Start 10/07/18 at 15:00 Albuterol/ Ipratropium (Duoneb) 3 ml RTQID NEB Last administered on 10/13/18at 11:46; Start 10/07/18 at 16:00 Insulin Human Lispro (HumaLOG) 0-9 UNITS Q6HRS SQ Last administered on 10/13/18at 11:54; Start 10/07/18 at 18:00 Meropenem 500 mg/ Sodium Chloride 50 ml @ 100 mls/hr Q8HRS IV Last administered on 10/13/18at 14:46; Start 10/07/18 at 17:00 Midazolam HCl 100 ml @ 5 mls/hr CONT PRN IV SEE I/O RECORD Last administered on 10/13/18at 01:14; Start 10/08/18 at 04:15 Lactobacillus Rhamnosus (Culturelle) 1 cap BID PO ; Start 10/08/18 at 09:00; Stop 10/09/18 at 15:58; Status DC Famotidine (Pepcid Vial) 20 mg QHS IVP Last administered on 10/12/18at 20:46; Start 10/08/18 at 21:00 Linezolid/Dextrose 300 ml @ 300 mls/hr Q12HR IV Last administered on 10/09/18at 20:58; Start 10/08/18 at 11:30; Stop 10/10/18 at 07:24; Status DC Doxycycline Hyclate 100 mg/ Dextrose 100 ml @ 50 mls/hr Q12HR IV Last administered on 10/13/18at 07:57; Start 10/09/18 at 13:00 Aspirin (Ecotrin) 81 mg DAILYWBKFT PO Last administered on 10/13/18at 07:57; Start 10/10/18 at 08:00 Furosemide (Lasix) 40 mg 1X ONCE IVP Last administered on 10/11/18at 08:36; Start 10/11/18 at 09:00; Stop 10/11/18 at 09:01; Status DC Lisinopril (Prinivil) 10 mg DAILY PO Last administered on 10/12/18at 07:54; Start 10/11/18 at 14:00 Furosemide (Lasix) 40 mg DAILY IVP Last administered on 10/13/18at 08:03; Start 10/12/18 at 12:30 Amlodipine Besylate (Norvasc) 5 mg DAILY PO Last administered on 10/12/18at 13:45; Start 10/12/18 at 12:30 Hydralazine HCl (Apresoline Inj) 10 mg PRN Q4HRS PRN IVP ELEVATED BP, SEE COMMENTS; Start 10/12/18 at 11:45 Insulin Glargine (Lantus) 10 units QHS SQ ; Start 10/13/18 at 21:00 Active Scripts Active Reported Proair Hfa (Albuterol Sulfate) 8.5 Gm Hfa.aer.ad 1 Puff INH PRN Q6HRS PRN Oxazepam 30 Mg Capsule 30 Mg PO QHS Allergies Allergies: Coded Allergies: Penicillins (Verified Allergy, Intermediate, 10/07/18) erythromycin base (Verified Allergy, Intermediate, 10/07/18) ROS Review of System Unable to obtain the patient is sedated and intubated Physical Exam General: Other HEENT: Atraumatic, Other (upper airway landmarks clearly identified) Lungs: Other (rales) Heart: Regular rate, Normal S1, Normal S2 Abdomen: Soft Skin: No significant lesion MUSCULOSKELETAL: No deformity Vitals VITALS Vital Signs Date Time Temp Pulse Resp B/P (MAP) Pulse Ox O2 Delivery O2 Flow Rate FiO2 10/13/18 13:54 20 Ventilator 10/13/18 12:00 98.7 50 109/51 (70) 89 98.7 Labs Labs Laboratory Tests Test 10/11/18 18:41 10/12/18 00:33 10/12/18 05:16 10/12/18 05:47 Glucose (Fingerstick) 271 mg/dL (70-99) 233 mg/dL (70-99) 277 mg/dL (70-99) White Blood Count 9.9 x10^3/uL (4.0-11.0) Red Blood Count 4.08 x10^6/uL (4.30-5.70) Hemoglobin 11.8 g/dL (13.0-17.5) Hematocrit 37.3 % (39.0-53.0) Mean Corpuscular Volume 91 fL (79-100) Mean Corpuscular Hemoglobin 29 pg (25-35) Mean Corpuscular Hemoglobin Concent 32 g/dL (31-37) Red Cell Distribution Width 16.7 % (11.5-14.5) Platelet Count 144 x10^3/uL (140-400) Neutrophils (%) (Auto) 87 % (31-73) Lymphocytes (%) (Auto) 6 % (24-48) Monocytes (%) (Auto) 7 % (0-9) Eosinophils (%) (Auto) 0 % (0-3) Basophils (%) (Auto) 0 % (0-3) Neutrophils # (Auto) 8.6 x10^3uL (1.8-7.7) Lymphocytes # (Auto) 0.6 x10^3/uL (1.0-4.8) Monocytes # (Auto) 0.6 x10^3/uL (0.0-1.1) Eosinophils # (Auto) 0.0 x10^3/uL (0.0-0.7) Basophils # (Auto) 0.0 x10^3/uL (0.0-0.2) Sodium Level 143 mmol/L (136-145) Potassium Level 5.2 mmol/L (3.5-5.1) Chloride Level 107 mmol/L (98-107) Carbon Dioxide Level 31 mmol/L (21-32) Anion Gap 5 (6-14) Blood Urea Nitrogen 52 mg/dL (8-26) Creatinine 1.3 mg/dL (0.7-1.3) Estimated GFR (Cockcroft-Gault) 53.7 BUN/Creatinine Ratio 40 (6-20) Glucose Level 305 mg/dL (70-99) Calcium Level 7.9 mg/dL (8.5-10.1) Total Bilirubin 0.6 mg/dL (0.2-1.0) Aspartate Amino Transf (AST/SGOT) 20 U/L (15-37) Alanine Aminotransferase (ALT/SGPT) 72 U/L (16-63) Alkaline Phosphatase 49 U/L (46-116) Total Protein 5.6 g/dL (6.4-8.2) Albumin 2.4 g/dL (3.4-5.0) Albumin/Globulin Ratio 0.8 (1.0-1.7) Test 10/12/18 09:15 10/12/18 10:10 10/12/18 11:26 10/12/18 18:09 O2 Saturation 95 % (92-99) 93 % (92-99) Arterial Blood pH 7.36 (7.35-7.45) 7.29 (7.35-7.45) Arterial Blood pCO2 at Patient Temp 52 mmHg (35-46) 64 mmHg (35-46) Arterial Blood pO2 at Patient Temp 80 mmHg (65-108) 76 mmHg (65-108) Arterial Blood HCO3 28 mmol/L (21-28) 30 mmol/L (21-28) Arterial Blood Base Excess 2 mmol/L (-3-3) 2 mmol/L (-3-3) FiO2 35 35 Glucose (Fingerstick) 224 mg/dL (70-99) 269 mg/dL (70-99) Test 10/12/18 23:53 10/13/18 05:43 10/13/18 08:00 10/13/18 11:52 Glucose (Fingerstick) 297 mg/dL (70-99) 251 mg/dL (70-99) 189 mg/dL (70-99) O2 Saturation 95 % (92-99) Arterial Blood pH 7.35 (7.35-7.45) Arterial Blood pCO2 at Patient Temp 54 mmHg (35-46) Arterial Blood pO2 at Patient Temp 83 mmHg (65-108) Arterial Blood HCO3 29 mmol/L (21-28) Arterial Blood Base Excess 2 mmol/L (-3-3) FiO2 35 Laboratory Tests Test 10/12/18 18:09 10/12/18 23:53 10/13/18 05:43 10/13/18 08:00 Glucose (Fingerstick) 269 mg/dL (70-99) 297 mg/dL (70-99) 251 mg/dL (70-99) O2 Saturation 95 % (92-99) Arterial Blood pH 7.35 (7.35-7.45) Arterial Blood pCO2 at Patient Temp 54 mmHg (35-46) Arterial Blood pO2 at Patient Temp 83 mmHg (65-108) Arterial Blood HCO3 29 mmol/L (21-28) Arterial Blood Base Excess 2 mmol/L (-3-3) FiO2 35 Test 10/13/18 11:52 Glucose (Fingerstick) 189 mg/dL (70-99) Assessment/Plan Assessment/Plan The patient is a 78-year-old male who was admitted on October 07, after being found down unresponsive. He apparently did not lose a pulse. He was intubated upon adm ission and remains on the ventilator ever since. He apparently has a history of severe COPD and has been oxygen dependent at home, although according to his , he is not been using his oxygen recently. He has failed several weaning trials. He is currently hemodynamically stable and on minimal vent settings. Was consulted to consider the patient for tracheostomy. His chest x-ray shows a left-sided pleural effusion. A tracheostomy would be appropriate for this patient. I had a long discussion with the patient's family who were at his bedside. I have explained the benefits of a tracheostomy and the potential risks which include bleeding, intraoperative LA/cardiac arrest, pneumothorax, lifelong need for tracheostomy. The patient's family understand the potential complications and agree to proceed. Plan for tracheostomy on Tuesday, October 16, 2018. Hold tube feeds at midnight Tuesday Needs active type and screen Repeat coags INR/APTT For weaning purposes I think he would benefit from a left chest ultrasound and possible thoracentesis. NANCY GRANADOS MD October 13, 2018 15:11
[2018-10-13 16:53] LABS: CALCIUM 8.2 mg/dL (8.5-10.1); CREATININE 1.3 mg/dL (0.7-1.3); GFR 53.7; POTASSIUM 5.1 mmol/L (3.5-5.1)
[2018-10-13] MEDS: FAMOTIDINE 20 MG/2 ML VIAL IVP SCH (21:29)
[2018-10-13] MEDS: INSULIN GLARGINE 300 UNITS/3 ML INSULN.PEN. SQ SCH (21:31)
[2018-10-14] VITALS (24 sets, daily range): BP systolic 85–151; BP diastolic 35–70
[2018-10-14] MEDS: INSULIN LISPRO 300 UNITS/3 ML INSULN.PEN. SQ SCH ×5 (00:39→23:42)
[2018-10-14] MEDS: fentaNYL PF VIAL 100 MCG/2 ML VIAL IV PRN ×3 (00:40→19:47)
[2018-10-14] MEDS: MEROPENEM 500 MG in IV NORMAL SALINE 50ML 50 ML IV SCH ×3 (05:48→21:20)
[2018-10-14] MEDS: methylPREDNISolone SOD SUCC PF 40 MG/ML VIAL. IV SCH ×2 (05:48→21:17)
[2018-10-14] MEDS: HEPARIN for SUB-Q USE 5,000 UNIT/ML VIAL. SQ SCH ×3 (05:49→21:19)
[2018-10-14 06:05] LABS: BASO % 0 % (0-3); EOS % 0 % (0-3); HEMATOCRIT 37.6 % (39.0-53.0); HEMOGLOBIN 11.8 g/dL (13.0-17.5); LYMPH # 0.6 x10^3/uL (1.0-4.8); LYMPH % 6 % (24-48); MEAN CORPUSCULAR HEMOGLOBIN 29 pg (25-35); MEAN CORPUSCULAR HGB CONC 32 g/dL (31-37); MEAN CORPUSCULAR VOLUME 92 fL (79-100); MONO # 0.7 x10^3/uL (0.0-1.1); MONO % 6 % (0-9); NEUT % 87 % (31-73); PLATELET COUNT 176 x10^3/uL (140-400); RED BLOOD COUNT 4.09 x10^6/uL (4.30-5.70); RED CELL DISTRIBUTION WIDTH 16.9 % (11.5-14.5); WHITE BLOOD COUNT 10.3 x10^3/uL (4.0-11.0)
[2018-10-14 06:46] LABS: ALBUMIN 2.3 g/dL (3.4-5.0); ALBUMIN/GLOBULIN RATIO 0.8 (1.0-1.7); CALCIUM 8.1 mg/dL (8.5-10.1); CREATININE 1.2 mg/dL (0.7-1.3); GFR 58.9; POTASSIUM 5.2 mmol/L (3.5-5.1); TOTAL BILIRUBIN 0.6 mg/dL (0.2-1.0); TOTAL PROTEIN 5.3 g/dL (6.4-8.2)
--- NOTE | 2018-10-14 06:57 | PDOC ---
PULMONARY PROGRESS NOTES Subjective on vent, on fentanyl, versed, follows commands, small ett secretion Vitals Vital Signs Date Time Temp Pulse Resp B/P (MAP) Pulse Ox O2 Delivery O2 Flow Rate FiO2 10/14/18 06:00 47 22 122/48 (72) 100 Ventilator 10/14/18 04:00 98.2 98.2 General: Alert Lungs: Other (DECREASE BS) Cardiovascular: S1, S2 Abdomen: Soft Extremities: Other (trace edema) Skin: Warm Labs Laboratory Tests Test 10/12/18 09:15 10/12/18 10:10 10/12/18 11:26 10/12/18 18:09 O2 Saturation 95 % (92-99) 93 % (92-99) Arterial Blood pH 7.36 (7.35-7.45) 7.29 (7.35-7.45) Arterial Blood pCO2 at Patient Temp 52 mmHg (35-46) 64 mmHg (35-46) Arterial Blood pO2 at Patient Temp 80 mmHg (65-108) 76 mmHg (65-108) Arterial Blood HCO3 28 mmol/L (21-28) 30 mmol/L (21-28) Arterial Blood Base Excess 2 mmol/L (-3-3) 2 mmol/L (-3-3) FiO2 35 35 Glucose (Fingerstick) 224 mg/dL (70-99) 269 mg/dL (70-99) Test 10/12/18 23:53 10/13/18 05:43 10/13/18 08:00 10/13/18 11:52 Glucose (Fingerstick) 297 mg/dL (70-99) 251 mg/dL (70-99) 189 mg/dL (70-99) O2 Saturation 95 % (92-99) Arterial Blood pH 7.35 (7.35-7.45) Arterial Blood pCO2 at Patient Temp 54 mmHg (35-46) Arterial Blood pO2 at Patient Temp 83 mmHg (65-108) Arterial Blood HCO3 29 mmol/L (21-28) Arterial Blood Base Excess 2 mmol/L (-3-3) FiO2 35 Test 10/13/18 16:30 10/13/18 18:24 10/14/18 00:38 10/14/18 05:42 Sodium Level 145 mmol/L (136-145) Potassium Level 5.1 mmol/L (3.5-5.1) Chloride Level 106 mmol/L (98-107) Carbon Dioxide Level 35 mmol/L (21-32) Anion Gap 4 (6-14) Blood Urea Nitrogen 61 mg/dL (8-26) Creatinine 1.3 mg/dL (0.7-1.3) Estimated GFR (Cockcroft-Gault) 53.7 Glucose Level 267 mg/dL (70-99) Calcium Level 8.2 mg/dL (8.5-10.1) Magnesium Level 2.0 mg/dL (1.8-2.4) Glucose (Fingerstick) 283 mg/dL (70-99) 255 mg/dL (70-99) 231 mg/dL (70-99) Test 10/14/18 05:45 White Blood Count 10.3 x10^3/uL (4.0-11.0) Red Blood Count 4.09 x10^6/uL (4.30-5.70) Hemoglobin 11.8 g/dL (13.0-17.5) Hematocrit 37.6 % (39.0-53.0) Mean Corpuscular Volume 92 fL (79-100) Mean Corpuscular Hemoglobin 29 pg (25-35) Mean Corpuscular Hemoglobin Concent 32 g/dL (31-37) Red Cell Distribution Width 16.9 % (11.5-14.5) Platelet Count 176 x10^3/uL (140-400) Neutrophils (%) (Auto) 87 % (31-73) Lymphocytes (%) (Auto) 6 % (24-48) Monocytes (%) (Auto) 6 % (0-9) Eosinophils (%) (Auto) 0 % (0-3) Basophils (%) (Auto) 0 % (0-3) Neutrophils # (Auto) 9.0 x10^3uL (1.8-7.7) Lymphocytes # (Auto) 0.6 x10^3/uL (1.0-4.8) Monocytes # (Auto) 0.7 x10^3/uL (0.0-1.1) Eosinophils # (Auto) 0.0 x10^3/uL (0.0-0.7) Basophils # (Auto) 0.0 x10^3/uL (0.0-0.2) Sodium Level 142 mmol/L (136-145) Potassium Level 5.2 mmol/L (3.5-5.1) Chloride Level 106 mmol/L (98-107) Carbon Dioxide Level 32 mmol/L (21-32) Anion Gap 4 (6-14) Blood Urea Nitrogen 69 mg/dL (8-26) Creatinine 1.2 mg/dL (0.7-1.3) Estimated GFR (Cockcroft-Gault) 58.9 BUN/Creatinine Ratio 58 (6-20) Glucose Level 250 mg/dL (70-99) Calcium Level 8.1 mg/dL (8.5-10.1) Total Bilirubin 0.6 mg/dL (0.2-1.0) Aspartate Amino Transf (AST/SGOT) 18 U/L (15-37) Alanine Aminotransferase (ALT/SGPT) 64 U/L (16-63) Alkaline Phosphatase 49 U/L (46-116) Total Protein 5.3 g/dL (6.4-8.2) Albumin 2.3 g/dL (3.4-5.0) Albumin/Globulin Ratio 0.8 (1.0-1.7) Laboratory Tests Test 10/13/18 08:00 10/13/18 11:52 10/13/18 16:30 10/13/18 18:24 O2 Saturation 95 % (92-99) Arterial Blood pH 7.35 (7.35-7.45) Arterial Blood pCO2 at Patient Temp 54 mmHg (35-46) Arterial Blood pO2 at Patient Temp 83 mmHg (65-108) Arterial Blood HCO3 29 mmol/L (21-28) Arterial Blood Base Excess 2 mmol/L (-3-3) FiO2 35 Glucose (Fingerstick) 189 mg/dL (70-99) 283 mg/dL (70-99) Sodium Level 145 mmol/L (136-145) Potassium Level 5.1 mmol/L (3.5-5.1) Chloride Level 106 mmol/L (98-107) Carbon Dioxide Level 35 mmol/L (21-32) Anion Gap 4 (6-14) Blood Urea Nitrogen 61 mg/dL (8-26) Creatinine 1.3 mg/dL (0.7-1.3) Estimated GFR (Cockcroft-Gault) 53.7 Glucose Level 267 mg/dL (70-99) Calcium Level 8.2 mg/dL (8.5-10.1) Magnesium Level 2.0 mg/dL (1.8-2.4) Test 10/14/18 00:38 10/14/18 05:42 10/14/18 05:45 Glucose (Fingerstick) 255 mg/dL (70-99) 231 mg/dL (70-99) White Blood Count 10.3 x10^3/uL (4.0-11.0) Red Blood Count 4.09 x10^6/uL (4.30-5.70) Hemoglobin 11.8 g/dL (13.0-17.5) Hematocrit 37.6 % (39.0-53.0) Mean Corpuscular Volume 92 fL (79-100) Mean Corpuscular Hemoglobin 29 pg (25-35) Mean Corpuscular Hemoglobin Concent 32 g/dL (31-37) Red Cell Distribution Width 16.9 % (11.5-14.5) Platelet Count 176 x10^3/uL (140-400) Neutrophils (%) (Auto) 87 % (31-73) Lymphocytes (%) (Auto) 6 % (24-48) Monocytes (%) (Auto) 6 % (0-9) Eosinophils (%) (Auto) 0 % (0-3) Basophils (%) (Auto) 0 % (0-3) Neutrophils # (Auto) 9.0 x10^3uL (1.8-7.7) Lymphocytes # (Auto) 0.6 x10^3/uL (1.0-4.8) Monocytes # (Auto) 0.7 x10^3/uL (0.0-1.1) Eosinophils # (Auto) 0.0 x10^3/uL (0.0-0.7) Basophils # (Auto) 0.0 x10^3/uL (0.0-0.2) Sodium Level 142 mmol/L (136-145) Potassium Level 5.2 mmol/L (3.5-5.1) Chloride Level 106 mmol/L (98-107) Carbon Dioxide Level 32 mmol/L (21-32) Anion Gap 4 (6-14) Blood Urea Nitrogen 69 mg/dL (8-26) Creatinine 1.2 mg/dL (0.7-1.3) Estimated GFR (Cockcroft-Gault) 58.9 BUN/Creatinine Ratio 58 (6-20) Glucose Level 250 mg/dL (70-99) Calcium Level 8.1 mg/dL (8.5-10.1) Total Bilirubin 0.6 mg/dL (0.2-1.0) Aspartate Amino Transf (AST/SGOT) 18 U/L (15-37) Alanine Aminotransferase (ALT/SGPT) 64 U/L (16-63) Alkaline Phosphatase 49 U/L (46-116) Total Protein 5.3 g/dL (6.4-8.2) Albumin 2.3 g/dL (3.4-5.0) Albumin/Globulin Ratio 0.8 (1.0-1.7) Medications Active Scripts Medications Dose Route/Sig Max Daily Dose Days Date Category Proair Hfa (Albuterol Sulfate) 8.5 Gm Hfa.aer.ad 1 Puff INH PRN Q6HRS PRN 10/07/18 Reported Oxazepam 30 Mg Capsule 30 Mg PO QHS 10/07/18 Reported Comments cxr reviewed, small l effusion, atelectasis/infilt ett ok Impression . 1. Acute on chronic hypoxemic/ hypercapnic respiratory failure. 2. Acute exacerbation of chronic obstructive pulmonary disease. suspect severe COPD 3. Abnormal x-ray compatible with pneumonia,, cannot exclude CHF, improved. 4. Gram-negative, possible gram-positive pneumonia. 5. No history given of diabetes, hypertension or renal failure. 6. History of alcohol intake, discontinued approximately 4 years ago. 7. Possible sepsis POA, improved 8. Positive mycoplasma serology 9. EF 40% IMPRESSION: 1. Diffuse interstitial changes, increased from prior study. Stimulated increasing interstitial edema or atypical pneumonia. 2. Left basilar consolidation with moderate size left pleural effusion, increased from prior study. Plan . on vent, setting reviewed, trach on tuesday, peg on tuesday FAMILY WANTS TO PROCEED WITH TRACH CVS CONSULTED CONTINUE ANTIBX PER ID DIURESIS, monitor k, cr FEVER IMPROVED change solumedrol to 40 bid elevate hob DVT GI PROPH, pepcid, heparin sq ENTERAL FEEDING D/W rn, pt ERIN SEARS MD October 14, 2018 06:57
[2018-10-14] MEDS: IPRATRPIUM/ALBUTEROL 0.5/2.5MG 3 ML NEBU. NEB SCH ×4 (07:43→19:20)
[2018-10-14] MEDS: DOXYCYCLINE HYCLATE 100 MG in IV DEXTROSE 5% 100ML 100 ML IV SCH ×2 (08:02→21:18)
[2018-10-14] MEDS: LISINOPRIL 10 MG TABLET PO SCH (08:03)
[2018-10-14] MEDS: ASPIRIN ENTERIC COATED 81 MG TABLET.DR. PO SCH (08:03)
[2018-10-14] MEDS: FUROSEMIDE 40 MG/4 ML VIAL. IVP SCH (08:04)
[2018-10-14] MEDS: amLODIPine BESYLATE 5 MG TABLET PO SCH (08:04)
[2018-10-14 08:18] LABS: BASE EXCESS ABG 6 mmol/L (-3-3); HCO3 ABG 33 mmol/L (21-28); PO2 ABG 78 mmHg (65-108); SAT O2 ABG 94 % (92-99)
--- NOTE | 2018-10-14 08:25 | RAD ---
EXAM: CHEST 1 VIEW History: Respiratory failure COMPARISON: 10/13/2018 TECHNIQUE: Single portable radiograph of the chest FINDINGS: The ET tube, feeding tube, right-sided internal jugular line is unchanged. Minimal bibasilar lung airspace opacities likely atelectasis or infiltrates. IMPRESSION: 1. Lines and tubes in place. Minimal bibasilar lung atelectasis or infiltrates. Electronically signed by: Lanre Peralta MD (10/14/2018 8:22 AM) [facility]
--- NOTE | 2018-10-14 09:27 | PDOC ---
Infectious Disease Note Subjective Subjective Remains intubated but alert, FiO2 35% c/o CP Denies nausea/upset stomach No fevers Tube feedings 65 ml/hr ROS ROS per HPI Vital Sign Vital Signs Vital Signs Date Time Temp Pulse Resp B/P (MAP) Pulse Ox O2 Delivery O2 Flow Rate FiO2 10/14/18 08:05 22 99 Ventilator 10/14/18 08:04 60 145/60 10/14/18 04:00 98.2 98.2 Physical Exam PHYSICAL EXAM GENERAL: intubated/alert, calm, mitts HENT: normal conj. PERRL. ETT, OGT LUNGS: Clear CV: S1 S2 irregular ABD: Obese, soft, NT, BS present : Jeffers in place EXT: 1 + edema lower extremities, bilaterally. No cyanosis. 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 RIJ (10/07) clean Labs Lab Laboratory Tests Test 10/13/18 11:52 10/13/18 16:30 10/13/18 18:24 10/14/18 00:38 Glucose (Fingerstick) 189 mg/dL (70-99) 283 mg/dL (70-99) 255 mg/dL (70-99) Sodium Level 145 mmol/L (136-145) Potassium Level 5.1 mmol/L (3.5-5.1) Chloride Level 106 mmol/L (98-107) Carbon Dioxide Level 35 mmol/L (21-32) Anion Gap 4 (6-14) Blood Urea Nitrogen 61 mg/dL (8-26) Creatinine 1.3 mg/dL (0.7-1.3) Estimated GFR (Cockcroft-Gault) 53.7 Glucose Level 267 mg/dL (70-99) Calcium Level 8.2 mg/dL (8.5-10.1) Magnesium Level 2.0 mg/dL (1.8-2.4) Test 10/14/18 05:42 10/14/18 05:45 Glucose (Fingerstick) 231 mg/dL (70-99) White Blood Count 10.3 x10^3/uL (4.0-11.0) Red Blood Count 4.09 x10^6/uL (4.30-5.70) Hemoglobin 11.8 g/dL (13.0-17.5) Hematocrit 37.6 % (39.0-53.0) Mean Corpuscular Volume 92 fL (79-100) Mean Corpuscular Hemoglobin 29 pg (25-35) Mean Corpuscular Hemoglobin Concent 32 g/dL (31-37) Red Cell Distribution Width 16.9 % (11.5-14.5) Platelet Count 176 x10^3/uL (140-400) Neutrophils (%) (Auto) 87 % (31-73) Lymphocytes (%) (Auto) 6 % (24-48) Monocytes (%) (Auto) 6 % (0-9) Eosinophils (%) (Auto) 0 % (0-3) Basophils (%) (Auto) 0 % (0-3) Neutrophils # (Auto) 9.0 x10^3uL (1.8-7.7) Lymphocytes # (Auto) 0.6 x10^3/uL (1.0-4.8) Monocytes # (Auto) 0.7 x10^3/uL (0.0-1.1) Eosinophils # (Auto) 0.0 x10^3/uL (0.0-0.7) Basophils # (Auto) 0.0 x10^3/uL (0.0-0.2) Sodium Level 142 mmol/L (136-145) Potassium Level 5.2 mmol/L (3.5-5.1) Chloride Level 106 mmol/L (98-107) Carbon Dioxide Level 32 mmol/L (21-32) Anion Gap 4 (6-14) Blood Urea Nitrogen 69 mg/dL (8-26) Creatinine 1.2 mg/dL (0.7-1.3) Estimated GFR (Cockcroft-Gault) 58.9 BUN/Creatinine Ratio 58 (6-20) Glucose Level 250 mg/dL (70-99) Calcium Level 8.1 mg/dL (8.5-10.1) Total Bilirubin 0.6 mg/dL (0.2-1.0) Aspartate Amino Transf (AST/SGOT) 18 U/L (15-37) Alanine Aminotransferase (ALT/SGPT) 64 U/L (16-63) Alkaline Phosphatase 49 U/L (46-116) Total Protein 5.3 g/dL (6.4-8.2) Albumin 2.3 g/dL (3.4-5.0) Albumin/Globulin Ratio 0.8 (1.0-1.7) Micro Objective Assessment Fever - resolved Pneumonia + mycoplasma 10/08 - on Doxy 10/09. Sputum cult - routine raheel/ Strep and Legionella - neg UTI, POA staph sap NSTEMI Lactic acidosis - improved Allergy PCN w/ hives and throat swelling; erythromycin w/ hives. 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 ALEXA ZARAGOZA APRN October 14, 2018 09:26 ENRIQUE WRAY MD October 14, 2018 14:04
--- NOTE | 2018-10-14 09:44 | PDOC ---
PROGRESS NOTES Chief Complaint Chief Complaint Fulminant respiratory failure End-stage COPD Clinical pneumonia MORBID OBESITY Possible sepsis uti Staphylococcus saprophyticus. Greater than 100,000 colony forming units per mL Noncompliance Pneumonia + mycoplasma 10/08 - on Doxy 10/09 hypercapnic resp failure poor prognosis azotemia adamant that full aggressive care be continued including tracheostomy and PEG tube Trach Tuesday. PEG Tuesday. History of Present Illness History of Present Illness Patient was seen and examined in the intensive care unit He is still on the assist control Discussed with the RN address goals of treatment failed BIPAP TRIAL 10/10 Maintain aspiration precautions failed effort for bipap trial again X3 trach planned for Monday 10/16 consult gi FOR PEG 34 min cc time Vitals Vitals Vital Signs Date Time Temp Pulse Resp B/P (MAP) Pulse Ox O2 Delivery O2 Flow Rate FiO2 10/14/18 08:05 22 99 Ventilator 10/14/18 08:04 60 145/60 10/14/18 04:00 98.2 98.2 Physical Exam Physical Exam GENERAL: intubated/alert, calm, mitts HENT: normal conj. PERRL. ETT, OGT LUNGS: Clear CV: S1 S2 irregular ABD: Obese, soft, NT, BS present : Jeffers in place EXT: 1 + edema lower extremities, bilaterally. No cyanosis. SKIN: warm without rash [employer]: alert, responding appropriately, nods to questions RIJ (10/07) clean General: Other Heart: Regular rate, Normal S1, Normal S2 Lungs: Other (DECREASE BS) Abdomen: Soft Extremities: No clubbing, No cyanosis, No edema, Normal pulses, No tenderness/swelling Skin: No significant lesion Labs LABS EXAM: CHEST 1 VIEW History: Respiratory failure COMPARISON: 10/13/2018 TECHNIQUE: Single portable radiograph of the chest FINDINGS: The ET tube, feeding tube, right-sided internal jugular line is unchanged. Minimal bibasilar lung airspace opacities likely atelectasis or infiltrates. IMPRESSION: 1. Lines and tubes in place. Minimal bibasilar lung atelectasis or infiltrates. Electronically signed by: Lanre Peralta MD (10/14/2018 8:22 AM) [facility] DICTATED and SIGNED BY: LANRE PERALTA MD DATE: 10/14/18821 Laboratory Tests Test 10/13/18 11:52 10/13/18 16:30 10/13/18 18:24 10/14/18 00:38 Glucose (Fingerstick) 189 mg/dL (70-99) 283 mg/dL (70-99) 255 mg/dL (70-99) Sodium Level 145 mmol/L (136-145) Potassium Level 5.1 mmol/L (3.5-5.1) Chloride Level 106 mmol/L (98-107) Carbon Dioxide Level 35 mmol/L (21-32) Anion Gap 4 (6-14) Blood Urea Nitrogen 61 mg/dL (8-26) Creatinine 1.3 mg/dL (0.7-1.3) Estimated GFR (Cockcroft-Gault) 53.7 Glucose Level 267 mg/dL (70-99) Calcium Level 8.2 mg/dL (8.5-10.1) Magnesium Level 2.0 mg/dL (1.8-2.4) Test 10/14/18 05:42 10/14/18 05:45 Glucose (Fingerstick) 231 mg/dL (70-99) White Blood Count 10.3 x10^3/uL (4.0-11.0) Red Blood Count 4.09 x10^6/uL (4.30-5.70) Hemoglobin 11.8 g/dL (13.0-17.5) Hematocrit 37.6 % (39.0-53.0) Mean Corpuscular Volume 92 fL (79-100) Mean Corpuscular Hemoglobin 29 pg (25-35) Mean Corpuscular Hemoglobin Concent 32 g/dL (31-37) Red Cell Distribution Width 16.9 % (11.5-14.5) Platelet Count 176 x10^3/uL (140-400) Neutrophils (%) (Auto) 87 % (31-73) Lymphocytes (%) (Auto) 6 % (24-48) Monocytes (%) (Auto) 6 % (0-9) Eosinophils (%) (Auto) 0 % (0-3) Basophils (%) (Auto) 0 % (0-3) Neutrophils # (Auto) 9.0 x10^3uL (1.8-7.7) Lymphocytes # (Auto) 0.6 x10^3/uL (1.0-4.8) Monocytes # (Auto) 0.7 x10^3/uL (0.0-1.1) Eosinophils # (Auto) 0.0 x10^3/uL (0.0-0.7) Basophils # (Auto) 0.0 x10^3/uL (0.0-0.2) Sodium Level 142 mmol/L (136-145) Potassium Level 5.2 mmol/L (3.5-5.1) Chloride Level 106 mmol/L (98-107) Carbon Dioxide Level 32 mmol/L (21-32) Anion Gap 4 (6-14) Blood Urea Nitrogen 69 mg/dL (8-26) Creatinine 1.2 mg/dL (0.7-1.3) Estimated GFR (Cockcroft-Gault) 58.9 BUN/Creatinine Ratio 58 (6-20) Glucose Level 250 mg/dL (70-99) Calcium Level 8.1 mg/dL (8.5-10.1) Total Bilirubin 0.6 mg/dL (0.2-1.0) Aspartate Amino Transf (AST/SGOT) 18 U/L (15-37) Alanine Aminotransferase (ALT/SGPT) 64 U/L (16-63) Alkaline Phosphatase 49 U/L (46-116) Total Protein 5.3 g/dL (6.4-8.2) Albumin 2.3 g/dL (3.4-5.0) Albumin/Globulin Ratio 0.8 (1.0-1.7) Assessment and Plan Assessmemt and Plan Problems Medical Problems: (1) Acute respiratory distress Status: Acute (2) CAP (community acquired pneumonia) Status: Acute (3) CHF (congestive heart failure) Status: Acute (4) Elevated liver function tests Status: Acute (5) Elevated troponin I level Status: Acute (6) Hyperkalemia Status: Acute (7) Renal insufficiency Status: Acute (8) Sepsis Status: Acute (9) Unresponsiveness Status: Acute (10) Urinary tract infection Status: Acute Comment Review of Relevant I have reviewed the following items akbar (where applicable) has been applied. Labs Laboratory Tests Test 10/12/18 10:10 10/12/18 11:26 10/12/18 18:09 10/12/18 23:53 O2 Saturation 93 % (92-99) Arterial Blood pH 7.29 (7.35-7.45) Arterial Blood pCO2 at Patient Temp 64 mmHg (35-46) Arterial Blood pO2 at Patient Temp 76 mmHg (65-108) Arterial Blood HCO3 30 mmol/L (21-28) Arterial Blood Base Excess 2 mmol/L (-3-3) FiO2 35 Glucose (Fingerstick) 224 mg/dL (70-99) 269 mg/dL (70-99) 297 mg/dL (70-99) Test 10/13/18 05:43 10/13/18 08:00 10/13/18 11:52 10/13/18 16:30 Glucose (Fingerstick) 251 mg/dL (70-99) 189 mg/dL (70-99) O2 Saturation 95 % (92-99) Arterial Blood pH 7.35 (7.35-7.45) Arterial Blood pCO2 at Patient Temp 54 mmHg (35-46) Arterial Blood pO2 at Patient Temp 83 mmHg (65-108) Arterial Blood HCO3 29 mmol/L (21-28) Arterial Blood Base Excess 2 mmol/L (-3-3) FiO2 35 Sodium Level 145 mmol/L (136-145) Potassium Level 5.1 mmol/L (3.5-5.1) Chloride Level 106 mmol/L (98-107) Carbon Dioxide Level 35 mmol/L (21-32) Anion Gap 4 (6-14) Blood Urea Nitrogen 61 mg/dL (8-26) Creatinine 1.3 mg/dL (0.7-1.3) Estimated GFR (Cockcroft-Gault) 53.7 Glucose Level 267 mg/dL (70-99) Calcium Level 8.2 mg/dL (8.5-10.1) Magnesium Level 2.0 mg/dL (1.8-2.4) Test 10/13/18 18:24 10/14/18 00:38 10/14/18 05:42 10/14/18 05:45 Glucose (Fingerstick) 283 mg/dL (70-99) 255 mg/dL (70-99) 231 mg/dL (70-99) White Blood Count 10.3 x10^3/uL (4.0-11.0) Red Blood Count 4.09 x10^6/uL (4.30-5.70) Hemoglobin 11.8 g/dL (13.0-17.5) Hematocrit 37.6 % (39.0-53.0) Mean Corpuscular Volume 92 fL (79-100) Mean Corpuscular Hemoglobin 29 pg (25-35) Mean Corpuscular Hemoglobin Concent 32 g/dL (31-37) Red Cell Distribution Width 16.9 % (11.5-14.5) Platelet Count 176 x10^3/uL (140-400) Neutrophils (%) (Auto) 87 % (31-73) Lymphocytes (%) (Auto) 6 % (24-48) Monocytes (%) (Auto) 6 % (0-9) Eosinophils (%) (Auto) 0 % (0-3) Basophils (%) (Auto) 0 % (0-3) Neutrophils # (Auto) 9.0 x10^3uL (1.8-7.7) Lymphocytes # (Auto) 0.6 x10^3/uL (1.0-4.8) Monocytes # (Auto) 0.7 x10^3/uL (0.0-1.1) Eosinophils # (Auto) 0.0 x10^3/uL (0.0-0.7) Basophils # (Auto) 0.0 x10^3/uL (0.0-0.2) Sodium Level 142 mmol/L (136-145) Potassium Level 5.2 mmol/L (3.5-5.1) Chloride Level 106 mmol/L (98-107) Carbon Dioxide Level 32 mmol/L (21-32) Anion Gap 4 (6-14) Blood Urea Nitrogen 69 mg/dL (8-26) Creatinine 1.2 mg/dL (0.7-1.3) Estimated GFR (Cockcroft-Gault) 58.9 BUN/Creatinine Ratio 58 (6-20) Glucose Level 250 mg/dL (70-99) Calcium Level 8.1 mg/dL (8.5-10.1) Total Bilirubin 0.6 mg/dL (0.2-1.0) Aspartate Amino Transf (AST/SGOT) 18 U/L (15-37) Alanine Aminotransferase (ALT/SGPT) 64 U/L (16-63) Alkaline Phosphatase 49 U/L (46-116) Total Protein 5.3 g/dL (6.4-8.2) Albumin 2.3 g/dL (3.4-5.0) Albumin/Globulin Ratio 0.8 (1.0-1.7) Laboratory Tests Test 10/13/18 11:52 10/13/18 16:30 10/13/18 18:24 10/14/18 00:38 Glucose (Fingerstick) 189 mg/dL (70-99) 283 mg/dL (70-99) 255 mg/dL (70-99) Sodium Level 145 mmol/L (136-145) Potassium Level 5.1 mmol/L (3.5-5.1) Chloride Level 106 mmol/L (98-107) Carbon Dioxide Level 35 mmol/L (21-32) Anion Gap 4 (6-14) Blood Urea Nitrogen 61 mg/dL (8-26) Creatinine 1.3 mg/dL (0.7-1.3) Estimated GFR (Cockcroft-Gault) 53.7 Glucose Level 267 mg/dL (70-99) Calcium Level 8.2 mg/dL (8.5-10.1) Magnesium Level 2.0 mg/dL (1.8-2.4) Test 10/14/18 05:42 10/14/18 05:45 Glucose (Fingerstick) 231 mg/dL (70-99) White Blood Count 10.3 x10^3/uL (4.0-11.0) Red Blood Count 4.09 x10^6/uL (4.30-5.70) Hemoglobin 11.8 g/dL (13.0-17.5) Hematocrit 37.6 % (39.0-53.0) Mean Corpuscular Volume 92 fL (79-100) Mean Corpuscular Hemoglobin 29 pg (25-35) Mean Corpuscular Hemoglobin Concent 32 g/dL (31-37) Red Cell Distribution Width 16.9 % (11.5-14.5) Platelet Count 176 x10^3/uL (140-400) Neutrophils (%) (Auto) 87 % (31-73) Lymphocytes (%) (Auto) 6 % (24-48) Monocytes (%) (Auto) 6 % (0-9) Eosinophils (%) (Auto) 0 % (0-3) Basophils (%) (Auto) 0 % (0-3) Neutrophils # (Auto) 9.0 x10^3uL (1.8-7.7) Lymphocytes # (Auto) 0.6 x10^3/uL (1.0-4.8) Monocytes # (Auto) 0.7 x10^3/uL (0.0-1.1) Eosinophils # (Auto) 0.0 x10^3/uL (0.0-0.7) Basophils # (Auto) 0.0 x10^3/uL (0.0-0.2) Sodium Level 142 mmol/L (136-145) Potassium Level 5.2 mmol/L (3.5-5.1) Chloride Level 106 mmol/L (98-107) Carbon Dioxide Level 32 mmol/L (21-32) Anion Gap 4 (6-14) Blood Urea Nitrogen 69 mg/dL (8-26) Creatinine 1.2 mg/dL (0.7-1.3) Estimated GFR (Cockcroft-Gault) 58.9 BUN/Creatinine Ratio 58 (6-20) Glucose Level 250 mg/dL (70-99) Calcium Level 8.1 mg/dL (8.5-10.1) Total Bilirubin 0.6 mg/dL (0.2-1.0) Aspartate Amino Transf (AST/SGOT) 18 U/L (15-37) Alanine Aminotransferase (ALT/SGPT) 64 U/L (16-63) Alkaline Phosphatase 49 U/L (46-116) Total Protein 5.3 g/dL (6.4-8.2) Albumin 2.3 g/dL (3.4-5.0) Albumin/Globulin Ratio 0.8 (1.0-1.7) Microbiology 10/07/18 Blood Culture - Final, Complete NO GROWTH AFTER 5 DAYS 10/08/18 - Final, Complete 10/08/18 - Final, Complete 10/08/18 - Final, Complete 10/08/18 - Final, Complete 10/08/18 - Final, Complete 10/08/18 Gram Stain Evaluation - Final, Complete 10/08/18 Sputum Culture - Final, Complete 10/08/18 Sputum Result 1 - Final, Complete 10/07/18 Urine Culture - Final, Complete 10/07/18 Urine Culture Result 1 (ELEN) - Final, Complete 10/07/18 Antimicrobic Susceptibility - Final, Complete Medications Current Medications Sodium Chloride 1,000 ml @ 1,000 mls/hr Q1H IV Last administered on 10/07/18at 11:27; Start 10/07/18 at 10:52; Stop 10/07/18 at 11:51; Status DC Midazolam HCl 100 ml @ 1 mls/hr 1X ONCE IV Last administered on 10/07/18at 11:20; Start 10/07/18 at 11:15; Stop 10/09/18 at 15:55; Status DC Etomidate (Amidate) 20 mg STK-MED ONCE IV ; Start 10/07/18 at 11:13; Stop 10/07/18 at 11:14; Status DC Succinylcholine Chloride (Anectine) 200 mg STK-MED ONCE .ROUTE ; Start 10/07/18 at 11:13; Stop 10/07/18 at 11:14; Status DC Etomidate (Amidate) 20 mg 1X ONCE IV Last administered on 10/07/18at 11:01; Start 10/07/18 at 11:30; Stop 10/07/18 at 11:33; Status DC Succinylcholine Chloride (Anectine) 100 mg 1X ONCE IV Last administered on 10/07/18at 11:01; Start 10/07/18 at 11:30; Stop 10/07/18 at 11:33; Status DC Albuterol Sulfate (Ventolin Neb Soln) 10 mg 1X ONCE CONT NEB ; Start 10/07/18 at 12:00; Stop 10/07/18 at 12:01; Status DC Methylprednisolone Sodium Succinate (SOLU-Medrol 125MG VIAL) 125 mg 1X ONCE IV Last administered on 10/07/18at 11:52; Start 10/07/18 at 12:00; Stop 10/07/18 at 12:01; Status DC Vancomycin HCl 250 ml @ 250 mls/hr 1X ONCE IV Last administered on 10/07/18at 12:27; Start 10/07/18 at 12:00; Stop 10/07/18 at 12:59; Status DC Levofloxacin/ Dextrose 150 ml @ 100 mls/hr 1X ONCE IV Last administered on 10/07/18at 12:28; Start 10/07/18 at 12:00; Stop 10/07/18 at 13:29; Status DC Sodium Chloride 1,000 ml @ 1,000 mls/hr 1X ONCE IV Last administered on 04/17at 12:57; Start 10/07/18 at 12:45; Stop 10/07/18 at 13:44; Status DC Sodium Chloride 1,000 ml @ 1,000 mls/hr 1X ONCE IV Last administered on 10/07/18at 12:58; Start 10/07/18 at 12:45; Stop 10/07/18 at 13:44; Status DC Dextrose (Dextrose 50%-Water Syringe) 25 gm 1X ONCE IV Last administered on 10/07/18at 12:59; Start 10/07/18 at 12:45; Stop 10/07/18 at 12:46; Status DC Insulin Human Regular (HumuLIN R VIAL) 10 unit 1X ONCE IV Last administered on 10/07/18at 13:00; Start 10/07/18 at 12:45; Stop 10/07/18 at 12:46; Status DC Sodium Bicarbonate (Sodium Bicarb Adult 8.4% Syr) 50 meq 1X ONCE IV Last administered on 10/07/18at 13:07; Start 10/07/18 at 12:45; Stop 10/07/18 at 12:46; Status DC Sodium Chloride 1,000 ml @ 100 mls/hr Q10H IV ; Start 10/07/18 at 16:00; Stop 10/07/18 at 16:00; Status DC Pantoprazole Sodium (PROTONIX VIAL for IV PUSH) 40 mg DAILYAC IVP Last adminis tered on 10/08/18at 08:25; Start 10/07/18 at 13:30; Stop 10/08/18 at 09:54; Status DC Pantoprazole Sodium (PROTONIX VIAL for IV PUSH) 40 mg 1X ONCE IVP ; Start 10/07/18 at 12:45; Stop 10/07/18 at 12:46; Status UNV Heparin Sodium (Porcine) (Heparin Sodium) 5,000 unit Q8HRS SQ Last administered on 10/14/18at 05:49; Start 10/07/18 at 14:00 Levofloxacin/ Dextrose (Levaquin Per Pharmacy) 1 each PRN DAILY PRN MC SEE COMMENTS; Start 10/07/18 at 12:45; Stop 10/08/18 at 07:33; Status DC Insulin Human Lispro (HumaLOG) 0-9 UNITS TIDWMEALS SQ ; Start 10/07/18 at 17:00; Stop 10/07/18 at 17:00; Status DC Dextrose (Dextrose 50%-Water Syringe) 12.5 gm PRN Q15MIN PRN IV SEE COMMENTS; Start 10/07/18 at 12:45 Albuterol/ Ipratropium (Duoneb) 3 ml RTQID NEB ; Start 10/07/18 at 16:00; Status Cancel Methylprednisolone Sodium Succinate (SOLU-Medrol 40MG VIAL) 40 mg Q8HRS IV Last administered on 10/14/18at 05:48; Start 10/07/18 at 22:00; Stop 10/14/18 at 09:29; Status DC Acetaminophen (Tylenol) 650 mg PRN Q6HRS PRN PEG MILD PAIN / TEMP Last administered on 10/08/18at 08:25; Start 10/07/18 at 12:45 Morphine Sulfate (Morphine Sulfate) 2 mg PRN Q2HR PRN IV PAIN Last administered on 10/13/18at 23:21; Start 10/07/18 at 12:45 Ondansetron HCl (Zofran) 4 mg PRN Q6HRS PRN IV NAUSEA/VOMITING; Start 10/07/18 at 12:45 Norepinephrine Bitartrate 250 ml @ 1.875 mls/ hr CONT PRN IV SEE I/O RECORD Last administered on 10/07/18at 14:01; Start 10/07/18 at 14:00 Sodium Chloride 1,000 ml @ 150 mls/hr Q6H40M IV Last administered on 10/08/18at 15:09; Start 10/07/18 at 14:00; Stop 10/08/18 at 13:59; Status DC Calcium Gluconate (Calcium Gluconate) 1,000 mg 1X ONCE IVP ; Start 10/07/18 at 13:30; Stop 10/07/18 at 13:31; Status Cancel Sodium Polystyrene Sulfonate (Kayexalate) 15 gm 1X ONCE PO Last administered on 10/07/18at 14:10; Start 10/07/18 at 13:30; Stop 10/07/18 at 13:31; Status DC Pantoprazole Sodium (PROTONIX VIAL for IV PUSH) 40 mg STK-MED ONCE IVP ; Start 10/07/18 at 12:52; Stop 10/07/18 at 12:55; Status DC Levofloxacin/ Dextrose 150 ml @ 100 mls/hr Q48H IV ; Start 10/09/18 at 12:00; Stop 10/09/18 at 12:00; Status DC Calcium Gluconate 1000 mg/Sodium Chloride 110 ml @ 220 mls/hr 1X ONCE IV Last administered on 10/07/18at 14:23; Start 10/07/18 at 15:00; Stop 10/07/18 at 15:29; Status DC Sodium Chloride 1,000 ml @ 1,000 mls/hr 1X ONCE IV Last administered on 10/07/18at 14:50; Start 10/07/18 at 15:00; Stop 10/07/18 at 15:59; Status DC Sodium Chloride 1,000 ml @ 999 mls/hr 1X ONCE IV ; Start 10/07/18 at 15:00; Stop 10/07/18 at 16:00; Status DC Albuterol Sulfate (Ventolin Neb Soln) 2.5 mg PRN Q2HR PRN NEB DYSPNEA; Start 10/07/18 at 15:00 Albuterol/ Ipratropium (Duoneb) 3 ml RTQID NEB Last administered on 10/14/18at 07:43; Start 10/07/18 at 16:00 Insulin Human Lispro (HumaLOG) 0-9 UNITS Q6HRS SQ Last administered on 10/14/18at 05:49; Start 10/07/18 at 18:00 Meropenem 500 mg/ Sodium Chloride 50 ml @ 100 mls/hr Q8HRS IV Last administered on 10/14/18at 05:48; Start 10/07/18 at 17:00 Midazolam HCl 100 ml @ 5 mls/hr CONT PRN IV SEE I/O RECORD Last administered on 10/13/18at 21:29; Start 10/08/18 at 04:15 Lactobacillus Rhamnosus (Culturelle) 1 cap BID PO ; Start 10/08/18 at 09:00; Stop 10/09/18 at 15:58; Status DC Famotidine (Pepcid Vial) 20 mg QHS IVP Last administered on 10/13/18at 21:29; Start 10/08/18 at 21:00 Linezolid/Dextrose 300 ml @ 300 mls/hr Q12HR IV Last administered on 10/09/18at 20:58; Start 10/08/18 at 11:30; Stop 10/10/18 at 07:24; Status DC Doxycycline Hyclate 100 mg/ Dextrose 100 ml @ 50 mls/hr Q12HR IV Last administered on 10/14/18at 08:02; Start 10/09/18 at 13:00 Aspirin (Ecotrin) 81 mg DAILYWBKFT PO Last administered on 10/14/18at 08:03; Start 10/10/18 at 08:00 Furosemide (Lasix) 40 mg 1X ONCE IVP Last administered on 10/11/18at 08:36; Start 10/11/18 at 09:00; Stop 10/11/18 at 09:01; Status DC Lisinopril (Prinivil) 10 mg DAILY PO Last administered on 10/14/18at 08:03; Start 10/11/18 at 14:00 Furosemide (Lasix) 40 mg DAILY IVP Last administered on 10/14/18at 08:04; Start 10/12/18 at 12:30 Amlodipine Besylate (Norvasc) 5 mg DAILY PO Last administered on 10/14/18at 08:04; Start 10/12/18 at 12:30 Hydralazine HCl (Apresoline Inj) 10 mg PRN Q4HRS PRN IVP ELEVATED BP, SEE COMMENTS; Start 10/12/18 at 11:45 Insulin Glargine (Lantus) 10 units QHS SQ Last administered on 10/13/18at 21:31; Start 10/13/18 at 21:00 Ondansetron HCl (Zofran) 4 mg PRN Q6HRS PRN IV NAUSEA/VOMITING; Start 10/16/18 at 07:00; Stop 10/17/18 at 06:59 Fentanyl Citrate (Fentanyl 2ml Vial) 25 mcg PRN Q5MIN PRN IV MILD PAIN 1-3; Start 10/16/18 at 07:00; Stop 10/17/18 at 06:59 Fentanyl Citrate (Fentanyl 2ml Vial) 50 mcg PRN Q5MIN PRN IV MODERATE TO SEVERE PAIN; Start 10/16/18 at 07:00; Stop 10/17/18 at 06:59 Morphine Sulfate (Morphine Sulfate) 1 mg PRN Q10MIN PRN IV SEVERE PAIN 7-10; Start 10/16/18 at 07:00; Stop 10/17/18 at 06:59 Ringer's Solution 1,000 ml @ 30 mls/hr Q24H IV ; Start 10/16/18 at 07:00; Stop 10/16/18 at 18:59 Lidocaine HCl (Xylocaine-Mpf 1% 2ml Vial) 2 ml PRN 1X PRN ID PRIOR TO IV START; Start 10/16/18 at 07:00; Stop 10/17/18 at 06:59 Hydromorphone HCl (Dilaudid) 0.5 mg PRN Q10MIN PRN IV SEV PAIN, Second choice; Start 10/16/18 at 07:00; Stop 10/17/18 at 06:59 Prochlorperazine Edisylate (Compazine) 5 mg PACU PRN PRN IV NAUSEA, MRX1; Start 10/16/18 at 07:00; Stop 10/17/18 at 06:59 Fentanyl Citrate (Fentanyl 2ml Vial) 50 mcg PRN Q2HR PRN IV PAIN Last administered on 10/14/18at 08:05; Start 10/14/18 at 00:30 Methylprednisolone Sodium Succinate (SOLU-Medrol 40MG VIAL) 40 mg Q12HR IV ; Start 10/14/18 at 21:00 Active Scripts Active Reported Proair Hfa (Albuterol Sulfate) 8.5 Gm Hfa.aer.ad 1 Puff INH PRN Q6HRS PRN Oxazepam 30 Mg Capsule 30 Mg PO QHS Vitals/I & O Vital Sign - Last 24 Hours 10/13/18 10/13/18 10/13/18 10/13/18 10:00 11:00 11:46 12:00 Temp 98.7 98.7 Pulse 66 52 50 Resp 21 22 22 B/P (MAP) 141/53 (82) 123/48 (73) 109/51 (70) Pulse Ox 100 100 100 89 O2 Delivery Ventilator Ventilator Ventilator Ventilator 10/13/18 10/13/18 10/13/18 10/13/18 12:00 13:00 13:33 13:54 Pulse 44 Resp 21 20 B/P (MAP) 94/43 (60) Pulse Ox 98 98 O2 Delivery Mechanical Ventilator Ventilator Ventilator Ventilator 10/13/18 10/13/18 10/13/18 10/13/18 14:00 15:00 16:00 16:00 Temp 97.2 97.2 Pulse 44 46 52 Resp 21 22 21 B/P (MAP) 94/47 (63) 93/41 (58) 126/43 (70) Pulse Ox 99 100 100 O2 Delivery Ventilator Ventilator Mechanical Ventilator Ventilator 10/13/18 10/13/18 10/13/18 10/13/18 16:10 16:34 17:00 17:29 Pulse 48 Resp 22 21 B/P (MAP) 89/43 (58) Pulse Ox 100 98 99 O2 Delivery Ventilator Ventilator Ventilator Ventilator 10/13/18 10/13/18 10/13/18 10/13/18 18:00 19:00 20:00 20:00 Temp 98.0 98.0 Pulse 46 43 49 Resp 21 22 21 B/P (MAP) 84/40 (55) 86/46 (59) 102/46 (64) Pulse Ox 98 99 98 O2 Delivery Ventilator Ventilator Ventilator Mechanical Ventilator 10/13/18 10/13/18 10/13/18 10/13/18 20:37 21:00 21:29 22:00 Pulse 50 56 Resp 22 20 22 B/P (MAP) 114/53 (73) 138/52 (80) Pulse Ox 100 100 100 98 O2 Delivery Ventilator Ventilator Ventilator Ventilator 10/13/18 10/13/18 10/13/18 10/13/18 23:00 23:21 23:33 23:44 Pulse 46 Resp 22 22 B/P (MAP) 137/56 (83) Pulse Ox 96 96 100 O2 Delivery Ventilator Ventilator Ventilator Mechanical Ventilator 10/13/18 10/14/18 10/14/18 10/14/18 23:51 00:00 01:00 01:10 Temp 98.2 98.2 Pulse 56 56 Resp 22 22 22 B/P (MAP) 135/52 (79) 101/35 (57) Pulse Ox 99 99 99 100 O2 Delivery Ventilator Ventilator Ventilator Ventilator 10/14/18 10/14/18 10/14/18 10/14/18 02:00 03:00 03:16 03:58 Pulse 47 45 Resp 22 22 B/P (MAP) 92/39 (56) 87/35 (52) Pulse Ox 99 100 100 O2 Delivery Ventilator Ventilator Ventilator Mechanical Ventilator 10/14/18 10/14/18 10/14/18 10/14/18 04:00 05:00 05:40 06:00 Temp 98.2 98.2 Pulse 43 43 47 Resp 22 22 22 B/P (MAP) 85/43 (57) 88/47 (61) 122/48 (72) Pulse Ox 100 100 100 100 O2 Delivery Ventilator Ventilator Ventilator Ventilator 10/14/18 10/14/18 10/14/18 10/14/18 07:00 07:41 08:03 08:04 Pulse 60 60 60 Resp 22 B/P (MAP) 140/49 (79) 145/60 145/60 Pulse Ox 100 100 O2 Delivery Ventilator Ventilator 10/14/18 08:05 Resp 22 Pulse Ox 99 O2 Delivery Ventilator Intake and Output 10/13/18 10/13/18 10/14/18 14:59 22:59 06:59 Intake Total 300 ml 1015.2 ml 1374 ml Output Total 1825 ml 360 ml 410 ml Balance -1525 ml 655.2 ml 964 ml SANDRA OROURKE MD October 14, 2018 09:44
[2018-10-14 10:02] LABS: PCO2 ABG 60 mmHg (35-46)
[2018-10-14 10:03] LABS: FIO2 ABG 35
--- NOTE | 2018-10-14 10:39 | PDOC ---
PROGRESS NOTES Subjective Subjective Alert but still on the ventilator Objective Objective Vital Signs Date Time Temp Pulse Resp B/P (MAP) Pulse Ox O2 Delivery O2 Flow Rate FiO2 10/14/18 09:44 100 Ventilator 10/14/18 09:00 56 22 99/56 (70) 10/14/18 08:00 97.3 97.3 Intake and Output 10/14/18 06:59 Intake Total 2689.2 ml Output Total 2595 ml Balance 94.2 ml IV Total 329.2 ml Tube Feeding 1985 ml Other 375 ml Output Urine Total 2595 ml Physical Exam Abdomen: Soft Heart: Regular rate, Normal S1, Normal S2 Extremities: Other (trace edema) General: Other HEENT: Atraumatic, Other (upper airway landmarks clearly identified) Lungs: Other (rales) MUSCULOSKELETAL: No deformity Skin: No significant lesion Assessment Assessment 1. Acute respiratory failure secondary to combination of AECOPD, CHF, PNA; s/p intubation. Failed trail, plan for tracheostomy by CT surgery. Pulmonary following. 2. NSTEMI; peak 0.8. Most probably type II, demand ischemia. Telemetry showed brief NSVT without any other arrhythmias. Ischemic workup could be considered at a later date. 3. Acute on chronic systolic HF better compensated. LVEF 40%. Continue current medical regimen.: 4. Hypertension, labile, presently better controlled. Plan Plan of Care Problems Medical Problems: (1) Acute respiratory distress Status: Acute (2) CAP (community acquired pneumonia) Status: Acute (3) CHF (congestive heart failure) Status: Acute (4) Elevated liver function tests Status: Acute (5) Elevated troponin I level Status: Acute (6) Hyperkalemia Status: Acute (7) Renal insufficiency Status: Acute (8) Sepsis Status: Acute (9) Unresponsiveness Status: Acute (10) Urinary tract infection Status: Acute Comment Review of Relevant I have reviewed the following items akbar (where applicable) has been applied. Labs Laboratory Tests Test 10/13/18 11:52 10/13/18 16:30 10/13/18 18:24 10/14/18 00:38 Glucose (Fingerstick) 189 mg/dL (70-99) 283 mg/dL (70-99) 255 mg/dL (70-99) Sodium Level 145 mmol/L (136-145) Potassium Level 5.1 mmol/L (3.5-5.1) Chloride Level 106 mmol/L (98-107) Carbon Dioxide Level 35 mmol/L (21-32) Anion Gap 4 (6-14) Blood Urea Nitrogen 61 mg/dL (8-26) Creatinine 1.3 mg/dL (0.7-1.3) Estimated GFR (Cockcroft-Gault) 53.7 Glucose Level 267 mg/dL (70-99) Calcium Level 8.2 mg/dL (8.5-10.1) Magnesium Level 2.0 mg/dL (1.8-2.4) Test 10/14/18 05:42 10/14/18 05:45 10/14/18 08:13 Glucose (Fingerstick) 231 mg/dL (70-99) White Blood Count 10.3 x10^3/uL (4.0-11.0) Red Blood Count 4.09 x10^6/uL (4.30-5.70) Hemoglobin 11.8 g/dL (13.0-17.5) Hematocrit 37.6 % (39.0-53.0) Mean Corpuscular Volume 92 fL (79-100) Mean Corpuscular Hemoglobin 29 pg (25-35) Mean Corpuscular Hemoglobin Concent 32 g/dL (31-37) Red Cell Distribution Width 16.9 % (11.5-14.5) Platelet Count 176 x10^3/uL (140-400) Neutrophils (%) (Auto) 87 % (31-73) Lymphocytes (%) (Auto) 6 % (24-48) Monocytes (%) (Auto) 6 % (0-9) Eosinophils (%) (Auto) 0 % (0-3) Basophils (%) (Auto) 0 % (0-3) Neutrophils # (Auto) 9.0 x10^3uL (1.8-7.7) Lymphocytes # (Auto) 0.6 x10^3/uL (1.0-4.8) Monocytes # (Auto) 0.7 x10^3/uL (0.0-1.1) Eosinophils # (Auto) 0.0 x10^3/uL (0.0-0.7) Basophils # (Auto) 0.0 x10^3/uL (0.0-0.2) Sodium Level 142 mmol/L (136-145) Potassium Level 5.2 mmol/L (3.5-5.1) Chloride Level 106 mmol/L (98-107) Carbon Dioxide Level 32 mmol/L (21-32) Anion Gap 4 (6-14) Blood Urea Nitrogen 69 mg/dL (8-26) Creatinine 1.2 mg/dL (0.7-1.3) Estimated GFR (Cockcroft-Gault) 58.9 BUN/Creatinine Ratio 58 (6-20) Glucose Level 250 mg/dL (70-99) Calcium Level 8.1 mg/dL (8.5-10.1) Total Bilirubin 0.6 mg/dL (0.2-1.0) Aspartate Amino Transf (AST/SGOT) 18 U/L (15-37) Alanine Aminotransferase (ALT/SGPT) 64 U/L (16-63) Alkaline Phosphatase 49 U/L (46-116) Total Protein 5.3 g/dL (6.4-8.2) Albumin 2.3 g/dL (3.4-5.0) Albumin/Globulin Ratio 0.8 (1.0-1.7) O2 Saturation 94 % (92-99) Arterial Blood pH 7.36 (7.35-7.45) Arterial Blood pCO2 at Patient Temp 60 mmHg (35-46) Arterial Blood pO2 at Patient Temp 78 mmHg (65-108) Arterial Blood HCO3 33 mmol/L (21-28) Arterial Blood Base Excess 6 mmol/L (-3-3) FiO2 35 Microbiology 10/07/18 Blood Culture - Final, Complete NO GROWTH AFTER 5 DAYS 10/08/18 - Final, Complete 10/08/18 - Final, Complete 10/08/18 - Final, Complete 10/08/18 - Final, Complete 10/08/18 - Final, Complete 10/08/18 Gram Stain Evaluation - Final, Complete 10/08/18 Sputum Culture - Final, Complete 10/08/18 Sputum Result 1 - Final, Complete 10/07/18 Urine Culture - Final, Complete 10/07/18 Urine Culture Result 1 (ELEN) - Final, Complete 10/07/18 Antimicrobic Susceptibility - Final, Complete Medications Current Medications Fentanyl Citrate (Fentanyl 2ml Vial) 25 mcg PRN Q5MIN PRN IV MILD PAIN 1-3; Start 10/16/18 at 07:00; Stop 10/17/18 at 06:59 Fentanyl Citrate (Fentanyl 2ml Vial) 50 mcg PRN Q2HR PRN IV PAIN Last administered on 10/14/18at 08:05; Start 10/14/18 at 00:30 Fentanyl Citrate (Fentanyl 2ml Vial) 50 mcg PRN Q5MIN PRN IV MODERATE TO SEVERE PAIN; Start 10/16/18 at 07:00; Stop 10/17/18 at 06:59 Hydromorphone HCl (Dilaudid) 0.5 mg PRN Q10MIN PRN IV SEV PAIN, Second choice; Start 10/16/18 at 07:00; Stop 10/17/18 at 06:59 Insulin Glargine (Lantus) 10 units QHS SQ Last administered on 10/13/18at 21:31; Start 10/13/18 at 21:00 Lidocaine HCl (Xylocaine-Mpf 1% 2ml Vial) 2 ml PRN 1X PRN ID PRIOR TO IV START; Start 10/16/18 at 07:00; Stop 10/17/18 at 06:59 Methylprednisolone Sodium Succinate (SOLU-Medrol 40MG VIAL) 40 mg Q12HR IV ; Start 10/14/18 at 21:00 Morphine Sulfate (Morphine Sulfate) 1 mg PRN Q10MIN PRN IV SEVERE PAIN 7-10; Start 10/16/18 at 07:00; Stop 10/17/18 at 06:59 Ondansetron HCl (Zofran) 4 mg PRN Q6HRS PRN IV NAUSEA/VOMITING; Start 10/16/18 at 07:00; Stop 10/17/18 at 06:59 Prochlorperazine Edisylate (Compazine) 5 mg PACU PRN PRN IV NAUSEA, MRX1; Start 10/16/18 at 07:00; Stop 10/17/18 at 06:59 Ringer's Solution 1,000 ml @ 30 mls/hr Q24H IV ; Start 10/16/18 at 07:00; Stop 10/16/18 at 18:59 Vitals/I & O Vital Sign - Last 24 Hours 10/13/18 10/13/18 10/13/18 10/13/18 11:00 11:46 12:00 12:00 Temp 98.7 98.7 Pulse 52 50 Resp 22 22 B/P (MAP) 123/48 (73) 109/51 (70) Pulse Ox 100 100 89 O2 Delivery Ventilator Ventilator Ventilator Mechanical Ventilator 10/13/18 10/13/18 10/13/18 10/13/18 13:00 13:33 13:54 14:00 Pulse 44 44 Resp 21 20 21 B/P (MAP) 94/43 (60) 94/47 (63) Pulse Ox 98 98 99 O2 Delivery Ventilator Ventilator Ventilator Ventilator 10/13/18 10/13/18 10/13/18 10/13/18 15:00 16:00 16:00 16:10 Temp 97.2 97.2 Pulse 46 52 Resp 22 21 B/P (MAP) 93/41 (58) 126/43 (70) Pulse Ox 100 100 100 O2 Delivery Ventilator Mechanical Ventilator Ventilator Ventilator 10/13/18 10/13/18 10/13/18 10/13/18 16:34 17:00 17:29 18:00 Pulse 48 46 Resp 22 21 21 B/P (MAP) 89/43 (58) 84/40 (55) Pulse Ox 98 99 98 O2 Delivery Ventilator Ventilator Ventilator Ventilator 10/13/18 10/13/18 10/13/18 10/13/18 19:00 20:00 20:00 20:37 Temp 98.0 98.0 Pulse 43 49 Resp 22 21 B/P (MAP) 86/46 (59) 102/46 (64) Pulse Ox 99 98 100 O2 Delivery Ventilator Ventilator Mechanical Ventilator Ventilator 10/13/18 10/13/18 10/13/18 10/13/18 21:00 21:29 22:00 23:00 Pulse 50 56 46 Resp 22 20 22 22 B/P (MAP) 114/53 (73) 138/52 (80) 137/56 (83) Pulse Ox 100 100 98 96 O2 Delivery Ventilator Ventilator Ventilator Ventilator 10/13/18 10/13/18 10/13/18 10/13/18 23:21 23:33 23:44 23:51 Resp 22 22 Pulse Ox 96 100 99 O2 Delivery Ventilator Ventilator Mechanical Ventilator Ventilator 10/14/18 10/14/18 10/14/18 10/14/18 00:00 01:00 01:10 02:00 Temp 98.2 98.2 Pulse 56 56 47 Resp 22 22 22 B/P (MAP) 135/52 (79) 101/35 (57) 92/39 (56) Pulse Ox 99 99 100 99 O2 Delivery Ventilator Ventilator Ventilator Ventilator 10/14/18 10/14/18 10/14/18 10/14/18 03:00 03:16 03:58 04:00 Temp 98.2 98.2 Pulse 45 43 Resp 22 22 B/P (MAP) 87/35 (52) 85/43 (57) Pulse Ox 100 100 100 O2 Delivery Ventilator Ventilator Mechanical Ventilator Ventilator 10/14/18 10/14/18 10/14/18 10/14/18 05:00 05:40 06:00 07:00 Pulse 43 47 60 Resp 22 22 22 B/P (MAP) 88/47 (61) 122/48 (72) 140/49 (79) Pulse Ox 100 100 100 100 O2 Delivery Ventilator Ventilator Ventilator Ventilator 10/14/18 10/14/18 10/14/18 10/14/18 07:41 08:00 08:03 08:04 Temp 97.3 97.3 Pulse 56 60 60 Resp 22 B/P (MAP) 99/56 (70) 145/60 145/60 Pulse Ox 100 100 O2 Delivery Ventilator Ventilator 10/14/18 10/14/18 10/14/18 10/14/18 08:05 09:00 09:00 09:44 Pulse 56 Resp 22 22 22 B/P (MAP) 99/56 (70) Pulse Ox 99 100 100 100 O2 Delivery Ventilator Ventilator Ventilator Ventilator Intake and Output 10/13/18 10/13/18 10/14/18 14:59 22:59 06:59 Intake Total 300 ml 1015.2 ml 1374 ml Output Total 1825 ml 360 ml 410 ml Balance -1525 ml 655.2 ml 964 ml SUAD FISCHER MD October 14, 2018 10:39
[2018-10-14] MEDS: MORPHINE SULFATE 2 MG/ML VIAL. IV PRN ×2 (10:50→16:10)
--- NOTE | 2018-10-14 11:37 | PDOC ---
G I PROGRESS NOTE Subjective Sedated on ventilator. Objective No reports of any issues. TF at 65cc/hr and apparently tolerating. Physical Exam Lungs clear anteriorly. RRR Abdomen soft, not distended. Bowel sounds present. Review of Relevant I have reviewed the following items akbar (where applicable) has been applied. Labs Laboratory Tests Test 10/12/18 18:09 10/12/18 23:53 10/13/18 05:43 10/13/18 08:00 Glucose (Fingerstick) 269 mg/dL (70-99) 297 mg/dL (70-99) 251 mg/dL (70-99) O2 Saturation 95 % (92-99) Arterial Blood pH 7.35 (7.35-7.45) Arterial Blood pCO2 at Patient Temp 54 mmHg (35-46) Arterial Blood pO2 at Patient Temp 83 mmHg (65-108) Arterial Blood HCO3 29 mmol/L (21-28) Arterial Blood Base Excess 2 mmol/L (-3-3) FiO2 35 Test 10/13/18 11:52 10/13/18 16:30 10/13/18 18:24 10/14/18 00:38 Glucose (Fingerstick) 189 mg/dL (70-99) 283 mg/dL (70-99) 255 mg/dL (70-99) Sodium Level 145 mmol/L (136-145) Potassium Level 5.1 mmol/L (3.5-5.1) Chloride Level 106 mmol/L (98-107) Carbon Dioxide Level 35 mmol/L (21-32) Anion Gap 4 (6-14) Blood Urea Nitrogen 61 mg/dL (8-26) Creatinine 1.3 mg/dL (0.7-1.3) Estimated GFR (Cockcroft-Gault) 53.7 Glucose Level 267 mg/dL (70-99) Calcium Level 8.2 mg/dL (8.5-10.1) Magnesium Level 2.0 mg/dL (1.8-2.4) Test 10/14/18 05:42 10/14/18 05:45 10/14/18 08:13 Glucose (Fingerstick) 231 mg/dL (70-99) White Blood Count 10.3 x10^3/uL (4.0-11.0) Red Blood Count 4.09 x10^6/uL (4.30-5.70) Hemoglobin 11.8 g/dL (13.0-17.5) Hematocrit 37.6 % (39.0-53.0) Mean Corpuscular Volume 92 fL (79-100) Mean Corpuscular Hemoglobin 29 pg (25-35) Mean Corpuscular Hemoglobin Concent 32 g/dL (31-37) Red Cell Distribution Width 16.9 % (11.5-14.5) Platelet Count 176 x10^3/uL (140-400) Neutrophils (%) (Auto) 87 % (31-73) Lymphocytes (%) (Auto) 6 % (24-48) Monocytes (%) (Auto) 6 % (0-9) Eosinophils (%) (Auto) 0 % (0-3) Basophils (%) (Auto) 0 % (0-3) Neutrophils # (Auto) 9.0 x10^3uL (1.8-7.7) Lymphocytes # (Auto) 0.6 x10^3/uL (1.0-4.8) Monocytes # (Auto) 0.7 x10^3/uL (0.0-1.1) Eosinophils # (Auto) 0.0 x10^3/uL (0.0-0.7) Basophils # (Auto) 0.0 x10^3/uL (0.0-0.2) Sodium Level 142 mmol/L (136-145) Potassium Level 5.2 mmol/L (3.5-5.1) Chloride Level 106 mmol/L (98-107) Carbon Dioxide Level 32 mmol/L (21-32) Anion Gap 4 (6-14) Blood Urea Nitrogen 69 mg/dL (8-26) Creatinine 1.2 mg/dL (0.7-1.3) Estimated GFR (Cockcroft-Gault) 58.9 BUN/Creatinine Ratio 58 (6-20) Glucose Level 250 mg/dL (70-99) Calcium Level 8.1 mg/dL (8.5-10.1) Total Bilirubin 0.6 mg/dL (0.2-1.0) Aspartate Amino Transf (AST/SGOT) 18 U/L (15-37) Alanine Aminotransferase (ALT/SGPT) 64 U/L (16-63) Alkaline Phosphatase 49 U/L (46-116) Total Protein 5.3 g/dL (6.4-8.2) Albumin 2.3 g/dL (3.4-5.0) Albumin/Globulin Ratio 0.8 (1.0-1.7) O2 Saturation 94 % (92-99) Arterial Blood pH 7.36 (7.35-7.45) Arterial Blood pCO2 at Patient Temp 60 mmHg (35-46) Arterial Blood pO2 at Patient Temp 78 mmHg (65-108) Arterial Blood HCO3 33 mmol/L (21-28) Arterial Blood Base Excess 6 mmol/L (-3-3) FiO2 35 Laboratory Tests Test 10/13/18 11:52 10/13/18 16:30 10/13/18 18:24 10/14/18 00:38 Glucose (Fingerstick) 189 mg/dL (70-99) 283 mg/dL (70-99) 255 mg/dL (70-99) Sodium Level 145 mmol/L (136-145) Potassium Level 5.1 mmol/L (3.5-5.1) Chloride Level 106 mmol/L (98-107) Carbon Dioxide Level 35 mmol/L (21-32) Anion Gap 4 (6-14) Blood Urea Nitrogen 61 mg/dL (8-26) Creatinine 1.3 mg/dL (0.7-1.3) Estimated GFR (Cockcroft-Gault) 53.7 Glucose Level 267 mg/dL (70-99) Calcium Level 8.2 mg/dL (8.5-10.1) Magnesium Level 2.0 mg/dL (1.8-2.4) Test 10/14/18 05:42 10/14/18 05:45 10/14/18 08:13 Glucose (Fingerstick) 231 mg/dL (70-99) White Blood Count 10.3 x10^3/uL (4.0-11.0) Red Blood Count 4.09 x10^6/uL (4.30-5.70) Hemoglobin 11.8 g/dL (13.0-17.5) Hematocrit 37.6 % (39.0-53.0) Mean Corpuscular Volume 92 fL (79-100) Mean Corpuscular Hemoglobin 29 pg (25-35) Mean Corpuscular Hemoglobin Concent 32 g/dL (31-37) Red Cell Distribution Width 16.9 % (11.5-14.5) Platelet Count 176 x10^3/uL (140-400) Neutrophils (%) (Auto) 87 % (31-73) Lymphocytes (%) (Auto) 6 % (24-48) Monocytes (%) (Auto) 6 % (0-9) Eosinophils (%) (Auto) 0 % (0-3) Basophils (%) (Auto) 0 % (0-3) Neutrophils # (Auto) 9.0 x10^3uL (1.8-7.7) Lymphocytes # (Auto) 0.6 x10^3/uL (1.0-4.8) Monocytes # (Auto) 0.7 x10^3/uL (0.0-1.1) Eosinophils # (Auto) 0.0 x10^3/uL (0.0-0.7) Basophils # (Auto) 0.0 x10^3/uL (0.0-0.2) Sodium Level 142 mmol/L (136-145) Potassium Level 5.2 mmol/L (3.5-5.1) Chloride Level 106 mmol/L (98-107) Carbon Dioxide Level 32 mmol/L (21-32) Anion Gap 4 (6-14) Blood Urea Nitrogen 69 mg/dL (8-26) Creatinine 1.2 mg/dL (0.7-1.3) Estimated GFR (Cockcroft-Gault) 58.9 BUN/Creatinine Ratio 58 (6-20) Glucose Level 250 mg/dL (70-99) Calcium Level 8.1 mg/dL (8.5-10.1) Total Bilirubin 0.6 mg/dL (0.2-1.0) Aspartate Amino Transf (AST/SGOT) 18 U/L (15-37) Alanine Aminotransferase (ALT/SGPT) 64 U/L (16-63) Alkaline Phosphatase 49 U/L (46-116) Total Protein 5.3 g/dL (6.4-8.2) Albumin 2.3 g/dL (3.4-5.0) Albumin/Globulin Ratio 0.8 (1.0-1.7) O2 Saturation 94 % (92-99) Arterial Blood pH 7.36 (7.35-7.45) Arterial Blood pCO2 at Patient Temp 60 mmHg (35-46) Arterial Blood pO2 at Patient Temp 78 mmHg (65-108) Arterial Blood HCO3 33 mmol/L (21-28) Arterial Blood Base Excess 6 mmol/L (-3-3) FiO2 35 Microbiology 10/07/18 Blood Culture - Final, Complete NO GROWTH AFTER 5 DAYS 10/08/18 - Final, Complete 10/08/18 - Final, Complete 10/08/18 - Final, Complete 10/08/18 - Final, Complete 10/08/18 - Final, Complete 10/08/18 Gram Stain Evaluation - Final, Complete 10/08/18 Sputum Culture - Final, Complete 10/08/18 Sputum Result 1 - Final, Complete 10/07/18 Urine Culture - Final, Complete 10/07/18 Urine Culture Result 1 (ELEN) - Final, Complete 10/07/18 Antimicrobic Susceptibility - Final, Complete Vitals/I & O Vital Sign - Last 24 Hours 10/13/18 10/13/18 10/13/18 10/13/18 11:46 12:00 12:00 13:00 Temp 98.7 98.7 Pulse 50 44 Resp 22 21 B/P (MAP) 109/51 (70) 94/43 (60) Pulse Ox 100 89 98 O2 Delivery Ventilator Ventilator Mechanical Ventilator Ventilator 10/13/18 10/13/18 10/13/18 10/13/18 13:33 13:54 14:00 15:00 Pulse 44 46 Resp 20 21 22 B/P (MAP) 94/47 (63) 93/41 (58) Pulse Ox 98 99 100 O2 Delivery Ventilator Ventilator Ventilator Ventilator 10/13/18 10/13/18 10/13/18 10/13/18 16:00 16:00 16:10 16:34 Temp 97.2 97.2 Pulse 52 Resp 21 22 B/P (MAP) 126/43 (70) Pulse Ox 100 100 O2 Delivery Mechanical Ventilator Ventilator Ventilator Ventilator 10/13/18 10/13/18 10/13/18 10/13/18 17:00 17:29 18:00 19:00 Pulse 48 46 43 Resp 21 21 22 B/P (MAP) 89/43 (58) 84/40 (55) 86/46 (59) Pulse Ox 98 99 98 99 O2 Delivery Ventilator Ventilator Ventilator Ventilator 10/13/18 10/13/18 10/13/18 10/13/18 20:00 20:00 20:37 21:00 Temp 98.0 98.0 Pulse 49 50 Resp 21 22 B/P (MAP) 102/46 (64) 114/53 (73) Pulse Ox 98 100 100 O2 Delivery Ventilator Mechanical Ventilator Ventilator Ventilator 10/13/18 10/13/18 10/13/18 10/13/18 21:29 22:00 23:00 23:21 Pulse 56 46 Resp 20 22 22 22 B/P (MAP) 138/52 (80) 137/56 (83) Pulse Ox 100 98 96 96 O2 Delivery Ventilator Ventilator Ventilator Ventilator 10/13/18 10/13/18 10/13/18 10/14/18 23:33 23:44 23:51 00:00 Temp 98.2 98.2 Pulse 56 Resp 22 22 B/P (MAP) 135/52 (79) Pulse Ox 100 99 99 O2 Delivery Ventilator Mechanical Ventilator Ventilator Ventilator 10/14/18 10/14/18 10/14/18 10/14/18 01:00 01:10 02:00 03:00 Pulse 56 47 45 Resp 22 22 22 B/P (MAP) 101/35 (57) 92/39 (56) 87/35 (52) Pulse Ox 99 100 99 100 O2 Delivery Ventilator Ventilator Ventilator Ventilator 10/14/18 10/14/18 10/14/18 10/14/18 03:16 03:58 04:00 05:00 Temp 98.2 98.2 Pulse 43 43 Resp 22 22 B/P (MAP) 85/43 (57) 88/47 (61) Pulse Ox 100 100 100 O2 Delivery Ventilator Mechanical Ventilator Ventilator Ventilator 10/14/18 10/14/18 10/14/18 10/14/18 05:40 06:00 07:00 07:41 Pulse 47 60 Resp 22 22 B/P (MAP) 122/48 (72) 140/49 (79) Pulse Ox 100 100 100 100 O2 Delivery Ventilator Ventilator Ventilator Ventilator 10/14/18 10/14/18 10/14/18 10/14/18 08:00 08:00 08:03 08:04 Temp 97.3 97.3 Pulse 56 60 60 Resp 22 B/P (MAP) 99/56 (70) 145/60 145/60 Pulse Ox 100 O2 Delivery Ventilator Mechanical Ventilator 10/14/18 10/14/18 10/14/18 10/14/18 08:05 09:00 09:00 09:44 Pulse 56 Resp 22 22 22 B/P (MAP) 99/56 (70) Pulse Ox 99 100 100 100 O2 Delivery Ventilator Ventilator Ventilator Ventilator 10/14/18 10/14/18 10/14/18 10:00 10:50 11:00 Pulse 68 77 Resp 22 22 22 B/P (MAP) 136/43 (74) 151/49 (83) Pulse Ox 100 100 100 O2 Delivery Ventilator Ventilator Intake and Output 10/13/18 10/13/18 10/14/18 14:59 22:59 06:59 Intake Total 300 ml 1015.2 ml 1374 ml Output Total 1825 ml 360 ml 410 ml Balance -1525 ml 655.2 ml 964 ml Problem List Problems Medical Problems: (1) Acute respiratory distress Status: Acute (2) CAP (community acquired pneumonia) Status: Acute (3) CHF (congestive heart failure) Status: Acute (4) Elevated liver function tests Status: Acute (5) Elevated troponin I level Status: Acute (6) Hyperkalemia Status: Acute (7) Renal insufficiency Status: Acute (8) Sepsis Status: Acute (9) Unresponsiveness Status: Acute (10) Urinary tract infection Status: Acute Assessment OP dysphagia due to long-term mechanical ventilation. Plan of Care Note Trach tentatively Tuesday. Will try for PEG Tuesday. GLORIA NAVA MD October 14, 2018 11:37
[2018-10-14] MEDS: MIDAZOLAM 100mg/100ml NS BAG 100 ML IV PRN ×2 (11:39→19:47)
[2018-10-14] MEDS: FAMOTIDINE 20 MG/2 ML VIAL IVP SCH (21:18)
[2018-10-14] MEDS: INSULIN GLARGINE 300 UNITS/3 ML INSULN.PEN. SQ SCH (21:19)
[2018-10-15] VITALS (24 sets, daily range): BP systolic 84–135; BP diastolic 35–84
[2018-10-15] MEDS: HEPARIN for SUB-Q USE 5,000 UNIT/ML VIAL. SQ SCH ×3 (05:47→22:00)
[2018-10-15] MEDS: INSULIN LISPRO 300 UNITS/3 ML INSULN.PEN. SQ SCH ×3 (05:48→17:47)
[2018-10-15] MEDS: MEROPENEM 500 MG in IV NORMAL SALINE 50ML 50 ML IV SCH ×3 (05:48→21:58)
--- NOTE | 2018-10-15 06:29 | PDOC ---
PULMONARY PROGRESS NOTES Subjective on vent, on fentanyl, versed, follows some commands, small ett secretion Vitals Vital Signs Date Time Temp Pulse Resp B/P (MAP) Pulse Ox O2 Delivery O2 Flow Rate FiO2 10/15/18 06:00 95 Ventilator 10/15/18 06:00 63 22 109/52 (71) 10/15/18 04:00 98.2 98.2 Comments ros as mentioned as above discussed w rn other sys otherwise neg on vent, follows some commands General: Alert HEENT: Other (nc at perrl nose clear, orally intubated neck no thyromegaly no lad) Lungs: Other (DECREASE BS) Cardiovascular: S1, S2 Abdomen: Soft, Non-tender, Other (no mass) Extremities: Other (trace edema) Skin: Warm Labs Laboratory Tests Test 10/13/18 08:00 10/13/18 11:52 10/13/18 16:30 10/13/18 18:24 O2 Saturation 95 % (92-99) Arterial Blood pH 7.35 (7.35-7.45) Arterial Blood pCO2 at Patient Temp 54 mmHg (35-46) Arterial Blood pO2 at Patient Temp 83 mmHg (65-108) Arterial Blood HCO3 29 mmol/L (21-28) Arterial Blood Base Excess 2 mmol/L (-3-3) FiO2 35 Glucose (Fingerstick) 189 mg/dL (70-99) 283 mg/dL (70-99) Sodium Level 145 mmol/L (136-145) Potassium Level 5.1 mmol/L (3.5-5.1) Chloride Level 106 mmol/L (98-107) Carbon Dioxide Level 35 mmol/L (21-32) Anion Gap 4 (6-14) Blood Urea Nitrogen 61 mg/dL (8-26) Creatinine 1.3 mg/dL (0.7-1.3) Estimated GFR (Cockcroft-Gault) 53.7 Glucose Level 267 mg/dL (70-99) Calcium Level 8.2 mg/dL (8.5-10.1) Magnesium Level 2.0 mg/dL (1.8-2.4) Test 10/14/18 00:38 10/14/18 05:42 10/14/18 05:45 10/14/18 08:13 Glucose (Fingerstick) 255 mg/dL (70-99) 231 mg/dL (70-99) White Blood Count 10.3 x10^3/uL (4.0-11.0) Red Blood Count 4.09 x10^6/uL (4.30-5.70) Hemoglobin 11.8 g/dL (13.0-17.5) Hematocrit 37.6 % (39.0-53.0) Mean Corpuscular Volume 92 fL (79-100) Mean Corpuscular Hemoglobin 29 pg (25-35) Mean Corpuscular Hemoglobin Concent 32 g/dL (31-37) Red Cell Distribution Width 16.9 % (11.5-14.5) Platelet Count 176 x10^3/uL (140-400) Neutrophils (%) (Auto) 87 % (31-73) Lymphocytes (%) (Auto) 6 % (24-48) Monocytes (%) (Auto) 6 % (0-9) Eosinophils (%) (Auto) 0 % (0-3) Basophils (%) (Auto) 0 % (0-3) Neutrophils # (Auto) 9.0 x10^3uL (1.8-7.7) Lymphocytes # (Auto) 0.6 x10^3/uL (1.0-4.8) Monocytes # (Auto) 0.7 x10^3/uL (0.0-1.1) Eosinophils # (Auto) 0.0 x10^3/uL (0.0-0.7) Basophils # (Auto) 0.0 x10^3/uL (0.0-0.2) Sodium Level 142 mmol/L (136-145) Potassium Level 5.2 mmol/L (3.5-5.1) Chloride Level 106 mmol/L (98-107) Carbon Dioxide Level 32 mmol/L (21-32) Anion Gap 4 (6-14) Blood Urea Nitrogen 69 mg/dL (8-26) Creatinine 1.2 mg/dL (0.7-1.3) Estimated GFR (Cockcroft-Gault) 58.9 BUN/Creatinine Ratio 58 (6-20) Glucose Level 250 mg/dL (70-99) Calcium Level 8.1 mg/dL (8.5-10.1) Total Bilirubin 0.6 mg/dL (0.2-1.0) Aspartate Amino Transf (AST/SGOT) 18 U/L (15-37) Alanine Aminotransferase (ALT/SGPT) 64 U/L (16-63) Alkaline Phosphatase 49 U/L (46-116) Total Protein 5.3 g/dL (6.4-8.2) Albumin 2.3 g/dL (3.4-5.0) Albumin/Globulin Ratio 0.8 (1.0-1.7) O2 Saturation 94 % (92-99) Arterial Blood pH 7.36 (7.35-7.45) Arterial Blood pCO2 at Patient Temp 60 mmHg (35-46) Arterial Blood pO2 at Patient Temp 78 mmHg (65-108) Arterial Blood HCO3 33 mmol/L (21-28) Arterial Blood Base Excess 6 mmol/L (-3-3) FiO2 35 Test 10/14/18 11:48 10/14/18 17:39 10/14/18 21:17 10/14/18 23:39 Glucose (Fingerstick) 154 mg/dL (70-99) 163 mg/dL (70-99) 157 mg/dL (70-99) 191 mg/dL (70-99) Test 10/15/18 03:30 10/15/18 05:46 Prothrombin Time 13.0 SEC (11.7-14.0) Prothromb Time International Ratio 1.0 (0.8-1.1) Glucose (Fingerstick) 277 mg/dL (70-99) Laboratory Tests Test 10/14/18 08:13 10/14/18 11:48 10/14/18 17:39 10/14/18 21:17 O2 Saturation 94 % (92-99) Arterial Blood pH 7.36 (7.35-7.45) Arterial Blood pCO2 at Patient Temp 60 mmHg (35-46) Arterial Blood pO2 at Patient Temp 78 mmHg (65-108) Arterial Blood HCO3 33 mmol/L (21-28) Arterial Blood Base Excess 6 mmol/L (-3-3) FiO2 35 Glucose (Fingerstick) 154 mg/dL (70-99) 163 mg/dL (70-99) 157 mg/dL (70-99) Test 10/14/18 23:39 10/15/18 03:30 10/15/18 05:46 Glucose (Fingerstick) 191 mg/dL (70-99) 277 mg/dL (70-99) Prothrombin Time 13.0 SEC (11.7-14.0) Prothromb Time International Ratio 1.0 (0.8-1.1) Medications Active Scripts Medications Dose Route/Sig Max Daily Dose Days Date Category Proair Hfa (Albuterol Sulfate) 8.5 Gm Hfa.aer.ad 1 Puff INH PRN Q6HRS PRN 10/07/18 Reported Oxazepam 30 Mg Capsule 30 Mg PO QHS 10/07/18 Reported Comments cxr 10/15, reviewed, small l effusion, atelectasis/infilt ett ok Impression . 1. Acute on chronic hypoxemic/ hypercapnic respiratory failure, multifactorial. 2. Acute exacerbation of chronic obstructive pulmonary disease. suspect severe COPD 3. Abnormal x-ray improved. 4. Gram-negative, possible gram-positive pneumonia. 5. No history given of diabetes, hypertension or renal failure. 6. History of alcohol intake, discontinued approximately 4 years ago. 7. Possible sepsis POA, improved 8. Positive mycoplasma serology 9. EF 40%, acute sys chf Plan . on vent, setting reviewed, trach on Tuesday, peg on Tuesday [facility], gi CONSULTED CONTINUE ANTIBX PER ID DIURESIS, monitor k, cr FEVER resolved change solumedrol to 40 mg daily elevate hob DVT GI PROPH, pepcid, heparin sq ENTERAL FEEDING D/W rn, pt ERIN SEARS MD October 15, 2018 06:29
[2018-10-15] MEDS: MORPHINE SULFATE 2 MG/ML VIAL. IV PRN ×2 (07:24→16:36)
[2018-10-15 07:26] LABS: CALCIUM 8.2 mg/dL (8.5-10.1); CREATININE 1.4 mg/dL (0.7-1.3); GFR 49.3; POTASSIUM 5.4 mmol/L (3.5-5.1)
[2018-10-15] MEDS: IPRATRPIUM/ALBUTEROL 0.5/2.5MG 3 ML NEBU. NEB SCH ×4 (07:29→19:44)
[2018-10-15 07:37] LABS: BASO % 0 % (0-3); EOS % 0 % (0-3); HEMATOCRIT 36.4 % (39.0-53.0); HEMOGLOBIN 11.9 g/dL (13.0-17.5); LYMPH # 0.6 x10^3/uL (1.0-4.8); LYMPH % 6 % (24-48); MEAN CORPUSCULAR HEMOGLOBIN 30 pg (25-35); MEAN CORPUSCULAR HGB CONC 33 g/dL (31-37); MEAN CORPUSCULAR VOLUME 92 fL (79-100); MONO # 0.5 x10^3/uL (0.0-1.1); MONO % 6 % (0-9); NEUT # 8.6 x10^3uL (1.8-7.7); NEUT % 88 % (31-73); PLATELET COUNT 176 x10^3/uL (140-400); RED BLOOD COUNT 3.96 x10^6/uL (4.30-5.70); RED CELL DISTRIBUTION WIDTH 16.6 % (11.5-14.5); WHITE BLOOD COUNT 9.8 x10^3/uL (4.0-11.0)
--- NOTE | 2018-10-15 08:23 | PDOC ---
Infectious Disease Note Subjective Subjective Remains intubated, FiO2 35% No fevers Tube feedings 65 ml/hr ROS ROS unobtainable Vital Sign Vital Signs Vital Signs Date Time Temp Pulse Resp B/P (MAP) Pulse Ox O2 Delivery O2 Flow Rate FiO2 10/15/18 07:29 100 Ventilator 10/15/18 07:24 22 10/15/18 07:00 71 130/61 (84) 10/15/18 04:00 98.2 98.2 Physical Exam PHYSICAL EXAM GENERAL: Orally intubated, sedated, mitts HENT: normal conj. PERRL. ETT, OGT LUNGS: Clear CV: S1 S2 irregular ABD: Obese, soft, NT, BS present : Jeffers in place EXT: 1 + edema lower extremities, bilaterally. No cyanosis. SKIN: warm without rash [employer]: Sedated, opens eyes to gentle stimuli RIJ (10/07) clean Labs Lab Laboratory Tests Test 10/14/18 11:48 10/14/18 17:39 10/14/18 21:17 10/14/18 23:39 Glucose (Fingerstick) 154 mg/dL (70-99) 163 mg/dL (70-99) 157 mg/dL (70-99) 191 mg/dL (70-99) Test 10/15/18 03:30 10/15/18 05:46 White Blood Count 9.8 x10^3/uL (4.0-11.0) Red Blood Count 3.96 x10^6/uL (4.30-5.70) Hemoglobin 11.9 g/dL (13.0-17.5) Hematocrit 36.4 % (39.0-53.0) Mean Corpuscular Volume 92 fL (79-100) Mean Corpuscular Hemoglobin 30 pg (25-35) Mean Corpuscular Hemoglobin Concent 33 g/dL (31-37) Red Cell Distribution Width 16.6 % (11.5-14.5) Platelet Count 176 x10^3/uL (140-400) Neutrophils (%) (Auto) 88 % (31-73) Lymphocytes (%) (Auto) 6 % (24-48) Monocytes (%) (Auto) 6 % (0-9) Eosinophils (%) (Auto) 0 % (0-3) Basophils (%) (Auto) 0 % (0-3) Neutrophils # (Auto) 8.6 x10^3uL (1.8-7.7) Lymphocytes # (Auto) 0.6 x10^3/uL (1.0-4.8) Monocytes # (Auto) 0.5 x10^3/uL (0.0-1.1) Eosinophils # (Auto) 0.0 x10^3/uL (0.0-0.7) Basophils # (Auto) 0.0 x10^3/uL (0.0-0.2) Prothrombin Time 13.0 SEC (11.7-14.0) Prothromb Time International Ratio 1.0 (0.8-1.1) Sodium Level 144 mmol/L (136-145) Potassium Level 5.4 mmol/L (3.5-5.1) Chloride Level 107 mmol/L (98-107) Carbon Dioxide Level 34 mmol/L (21-32) Anion Gap 3 (6-14) Blood Urea Nitrogen 81 mg/dL (8-26) Creatinine 1.4 mg/dL (0.7-1.3) Estimated GFR (Cockcroft-Gault) 49.3 Glucose Level 278 mg/dL (70-99) Calcium Level 8.2 mg/dL (8.5-10.1) Glucose (Fingerstick) 277 mg/dL (70-99) Micro Objective Assessment Fever - resolved Pneumonia + mycoplasma 10/08 - on Doxy 10/09. Sputum cult - routine raheel/ Strep and Legionella - neg UTI, POA staph sap NSTEMI Lactic acidosis - improved Allergy PCN w/ hives and throat swelling; erythromycin w/ hives. Leukocytosis - on steroids - better Hypotension, now off Levophed gtt Acute encephalopathy - improving Acute respiratory failure s/p intubation ALEX - better COPD, O2 dependent Plan Plan of Care Continue meropenem (10/07) for now -wean soon Cont doxy (10/09) One time dose vancomycin, 10/07, d/c Zyvox (10/08)/levoflox Steroids Await Trach Patient seen, examined, I agree with above A/P. ALEXA ZARAGOZA APRN October 15, 2018 08:23 ENRIQUE WRAY MD October 15, 2018 14:37
[2018-10-15] MEDS: DOXYCYCLINE HYCLATE 100 MG in IV DEXTROSE 5% 100ML 100 ML IV SCH ×2 (08:28→20:56)
[2018-10-15] MEDS: methylPREDNISolone SOD SUCC PF 40 MG/ML VIAL. IV SCH (08:28)
[2018-10-15] MEDS: ASPIRIN ENTERIC COATED 81 MG TABLET.DR. PO SCH (08:29)
[2018-10-15] MEDS: MIDAZOLAM 100mg/100ml NS BAG 100 ML IV PRN ×2 (08:31→16:38)
--- NOTE | 2018-10-15 08:46 | PDOC ---
PROGRESS NOTES Chief Complaint Chief Complaint Fulminant respiratory failure End-stage COPD Clinical pneumonia MORBID OBESITY Possible sepsis uti Staphylococcus saprophyticus. Greater than 100,000 colony forming units per mL Noncompliance Pneumonia + mycoplasma 10/08 - on Doxy 10/09 hypercapnic resp failure poor prognosis azotemia wants full aggressive care be continued including tracheostomy and PEG tube Trach Tuesday. PEG Tuesday. HOLD LASIX, LISINOPRIL today Fluid bolus 500cc ns x 1 now History of Present Illness History of Present Illness Patient was seen and examined in the intensive care unit He is still on the assist control Discussed with the RN address goals of treatment failed BIPAP TRIAL 10/10 Maintain aspiration precautions failed effort for bipap trial again X3 trach planned for Monday 10/16 consult gi FOR PEG 37 min cc time Vitals Vitals Vital Signs Date Time Temp Pulse Resp B/P (MAP) Pulse Ox O2 Delivery O2 Flow Rate FiO2 10/15/18 08:00 22 100 Ventilator 10/15/18 07:00 71 130/61 (84) 10/15/18 04:00 98.2 98.2 Physical Exam Physical Exam GENERAL: Orally intubated, sedated, mitts HENT: normal conj. PERRL. ETT, OGT LUNGS: Clear CV: S1 S2 irregular ABD: Obese, soft, NT, BS present : Jeffers in place EXT: 1 + edema lower extremities, bilaterally. No cyanosis. 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 eyes to gentle stimuli RIJ (10/07) clean General: No acute distress, Other Heart: Regular rate, Normal S1, Normal S2 Lungs: Clear, Other (DECREASE BS) Abdomen: Soft, No tenderness Extremities: No cyanosis, Other (trace edema) Skin: No significant lesion Labs LABS Laboratory Tests Test 10/14/18 11:48 10/14/18 17:39 10/14/18 21:17 10/14/18 23:39 Glucose (Fingerstick) 154 mg/dL (70-99) 163 mg/dL (70-99) 157 mg/dL (70-99) 191 mg/dL (70-99) Test 10/15/18 03:30 10/15/18 05:46 White Blood Count 9.8 x10^3/uL (4.0-11.0) Red Blood Count 3.96 x10^6/uL (4.30-5.70) Hemoglobin 11.9 g/dL (13.0-17.5) Hematocrit 36.4 % (39.0-53.0) Mean Corpuscular Volume 92 fL (79-100) Mean Corpuscular Hemoglobin 30 pg (25-35) Mean Corpuscular Hemoglobin Concent 33 g/dL (31-37) Red Cell Distribution Width 16.6 % (11.5-14.5) Platelet Count 176 x10^3/uL (140-400) Neutrophils (%) (Auto) 88 % (31-73) Lymphocytes (%) (Auto) 6 % (24-48) Monocytes (%) (Auto) 6 % (0-9) Eosinophils (%) (Auto) 0 % (0-3) Basophils (%) (Auto) 0 % (0-3) Neutrophils # (Auto) 8.6 x10^3uL (1.8-7.7) Lymphocytes # (Auto) 0.6 x10^3/uL (1.0-4.8) Monocytes # (Auto) 0.5 x10^3/uL (0.0-1.1) Eosinophils # (Auto) 0.0 x10^3/uL (0.0-0.7) Basophils # (Auto) 0.0 x10^3/uL (0.0-0.2) Prothrombin Time 13.0 SEC (11.7-14.0) Prothromb Time International Ratio 1.0 (0.8-1.1) Sodium Level 144 mmol/L (136-145) Potassium Level 5.4 mmol/L (3.5-5.1) Chloride Level 107 mmol/L (98-107) Carbon Dioxide Level 34 mmol/L (21-32) Anion Gap 3 (6-14) Blood Urea Nitrogen 81 mg/dL (8-26) Creatinine 1.4 mg/dL (0.7-1.3) Estimated GFR (Cockcroft-Gault) 49.3 Glucose Level 278 mg/dL (70-99) Calcium Level 8.2 mg/dL (8.5-10.1) Glucose (Fingerstick) 277 mg/dL (70-99) Assessment and Plan Assessmemt and Plan Problems Medical Problems: (1) Acute respiratory distress Status: Acute (2) CAP (community acquired pneumonia) Status: Acute (3) CHF (congestive heart failure) Status: Acute (4) Elevated liver function tests Status: Acute (5) Elevated troponin I level Status: Acute (6) Hyperkalemia Status: Acute (7) Renal insufficiency Status: Acute (8) Sepsis Status: Acute (9) Unresponsiveness Status: Acute (10) Urinary tract infection Status: Acute Comment Review of Relevant I have reviewed the following items akbar (where applicable) has been applied. Labs Laboratory Tests Test 10/13/18 11:52 10/13/18 16:30 10/13/18 18:24 10/14/18 00:38 Glucose (Fingerstick) 189 mg/dL (70-99) 283 mg/dL (70-99) 255 mg/dL (70-99) Sodium Level 145 mmol/L (136-145) Potassium Level 5.1 mmol/L (3.5-5.1) Chloride Level 106 mmol/L (98-107) Carbon Dioxide Level 35 mmol/L (21-32) Anion Gap 4 (6-14) Blood Urea Nitrogen 61 mg/dL (8-26) Creatinine 1.3 mg/dL (0.7-1.3) Estimated GFR (Cockcroft-Gault) 53.7 Glucose Level 267 mg/dL (70-99) Calcium Level 8.2 mg/dL (8.5-10.1) Magnesium Level 2.0 mg/dL (1.8-2.4) Test 10/14/18 05:42 10/14/18 05:45 10/14/18 08:13 10/14/18 11:48 Glucose (Fingerstick) 231 mg/dL (70-99) 154 mg/dL (70-99) White Blood Count 10.3 x10^3/uL (4.0-11.0) Red Blood Count 4.09 x10^6/uL (4.30-5.70) Hemoglobin 11.8 g/dL (13.0-17.5) Hematocrit 37.6 % (39.0-53.0) Mean Corpuscular Volume 92 fL (79-100) Mean Corpuscular Hemoglobin 29 pg (25-35) Mean Corpuscular Hemoglobin Concent 32 g/dL (31-37) Red Cell Distribution Width 16.9 % (11.5-14.5) Platelet Count 176 x10^3/uL (140-400) Neutrophils (%) (Auto) 87 % (31-73) Lymphocytes (%) (Auto) 6 % (24-48) Monocytes (%) (Auto) 6 % (0-9) Eosinophils (%) (Auto) 0 % (0-3) Basophils (%) (Auto) 0 % (0-3) Neutrophils # (Auto) 9.0 x10^3uL (1.8-7.7) Lymphocytes # (Auto) 0.6 x10^3/uL (1.0-4.8) Monocytes # (Auto) 0.7 x10^3/uL (0.0-1.1) Eosinophils # (Auto) 0.0 x10^3/uL (0.0-0.7) Basophils # (Auto) 0.0 x10^3/uL (0.0-0.2) Sodium Level 142 mmol/L (136-145) Potassium Level 5.2 mmol/L (3.5-5.1) Chloride Level 106 mmol/L (98-107) Carbon Dioxide Level 32 mmol/L (21-32) Anion Gap 4 (6-14) Blood Urea Nitrogen 69 mg/dL (8-26) Creatinine 1.2 mg/dL (0.7-1.3) Estimated GFR (Cockcroft-Gault) 58.9 BUN/Creatinine Ratio 58 (6-20) Glucose Level 250 mg/dL (70-99) Calcium Level 8.1 mg/dL (8.5-10.1) Total Bilirubin 0.6 mg/dL (0.2-1.0) Aspartate Amino Transf (AST/SGOT) 18 U/L (15-37) Alanine Aminotransferase (ALT/SGPT) 64 U/L (16-63) Alkaline Phosphatase 49 U/L (46-116) Total Protein 5.3 g/dL (6.4-8.2) Albumin 2.3 g/dL (3.4-5.0) Albumin/Globulin Ratio 0.8 (1.0-1.7) O2 Saturation 94 % (92-99) Arterial Blood pH 7.36 (7.35-7.45) Arterial Blood pCO2 at Patient Temp 60 mmHg (35-46) Arterial Blood pO2 at Patient Temp 78 mmHg (65-108) Arterial Blood HCO3 33 mmol/L (21-28) Arterial Blood Base Excess 6 mmol/L (-3-3) FiO2 35 Test 10/14/18 17:39 10/14/18 21:17 10/14/18 23:39 10/15/18 03:30 Glucose (Fingerstick) 163 mg/dL (70-99) 157 mg/dL (70-99) 191 mg/dL (70-99) White Blood Count 9.8 x10^3/uL (4.0-11.0) Red Blood Count 3.96 x10^6/uL (4.30-5.70) Hemoglobin 11.9 g/dL (13.0-17.5) Hematocrit 36.4 % (39.0-53.0) Mean Corpuscular Volume 92 fL (79-100) Mean Corpuscular Hemoglobin 30 pg (25-35) Mean Corpuscular Hemoglobin Concent 33 g/dL (31-37) Red Cell Distribution Width 16.6 % (11.5-14.5) Platelet Count 176 x10^3/uL (140-400) Neutrophils (%) (Auto) 88 % (31-73) Lymphocytes (%) (Auto) 6 % (24-48) Monocytes (%) (Auto) 6 % (0-9) Eosinophils (%) (Auto) 0 % (0-3) Basophils (%) (Auto) 0 % (0-3) Neutrophils # (Auto) 8.6 x10^3uL (1.8-7.7) Lymphocytes # (Auto) 0.6 x10^3/uL (1.0-4.8) Monocytes # (Auto) 0.5 x10^3/uL (0.0-1.1) Eosinophils # (Auto) 0.0 x10^3/uL (0.0-0.7) Basophils # (Auto) 0.0 x10^3/uL (0.0-0.2) Prothrombin Time 13.0 SEC (11.7-14.0) Prothromb Time International Ratio 1.0 (0.8-1.1) Sodium Level 144 mmol/L (136-145) Potassium Level 5.4 mmol/L (3.5-5.1) Chloride Level 107 mmol/L (98-107) Carbon Dioxide Level 34 mmol/L (21-32) Anion Gap 3 (6-14) Blood Urea Nitrogen 81 mg/dL (8-26) Creatinine 1.4 mg/dL (0.7-1.3) Estimated GFR (Cockcroft-Gault) 49.3 Glucose Level 278 mg/dL (70-99) Calcium Level 8.2 mg/dL (8.5-10.1) Test 10/15/18 05:46 Glucose (Fingerstick) 277 mg/dL (70-99) Laboratory Tests Test 10/14/18 11:48 10/14/18 17:39 10/14/18 21:17 10/14/18 23:39 Glucose (Fingerstick) 154 mg/dL (70-99) 163 mg/dL (70-99) 157 mg/dL (70-99) 191 mg/dL (70-99) Test 10/15/18 03:30 10/15/18 05:46 White Blood Count 9.8 x10^3/uL (4.0-11.0) Red Blood Count 3.96 x10^6/uL (4.30-5.70) Hemoglobin 11.9 g/dL (13.0-17.5) Hematocrit 36.4 % (39.0-53.0) Mean Corpuscular Volume 92 fL (79-100) Mean Corpuscular Hemoglobin 30 pg (25-35) Mean Corpuscular Hemoglobin Concent 33 g/dL (31-37) Red Cell Distribution Width 16.6 % (11.5-14.5) Platelet Count 176 x10^3/uL (140-400) Neutrophils (%) (Auto) 88 % (31-73) Lymphocytes (%) (Auto) 6 % (24-48) Monocytes (%) (Auto) 6 % (0-9) Eosinophils (%) (Auto) 0 % (0-3) Basophils (%) (Auto) 0 % (0-3) Neutrophils # (Auto) 8.6 x10^3uL (1.8-7.7) Lymphocytes # (Auto) 0.6 x10^3/uL (1.0-4.8) Monocytes # (Auto) 0.5 x10^3/uL (0.0-1.1) Eosinophils # (Auto) 0.0 x10^3/uL (0.0-0.7) Basophils # (Auto) 0.0 x10^3/uL (0.0-0.2) Prothrombin Time 13.0 SEC (11.7-14.0) Prothromb Time International Ratio 1.0 (0.8-1.1) Sodium Level 144 mmol/L (136-145) Potassium Level 5.4 mmol/L (3.5-5.1) Chloride Level 107 mmol/L (98-107) Carbon Dioxide Level 34 mmol/L (21-32) Anion Gap 3 (6-14) Blood Urea Nitrogen 81 mg/dL (8-26) Creatinine 1.4 mg/dL (0.7-1.3) Estimated GFR (Cockcroft-Gault) 49.3 Glucose Level 278 mg/dL (70-99) Calcium Level 8.2 mg/dL (8.5-10.1) Glucose (Fingerstick) 277 mg/dL (70-99) Microbiology 10/07/18 Blood Culture - Final, Complete NO GROWTH AFTER 5 DAYS 10/08/18 - Final, Complete 10/08/18 - Final, Complete 10/08/18 - Final, Complete 10/08/18 - Final, Complete 10/08/18 - Final, Complete 10/08/18 Gram Stain Evaluation - Final, Complete 10/08/18 Sputum Culture - Final, Complete 10/08/18 Sputum Result 1 - Final, Complete 10/07/18 Urine Culture - Final, Complete 10/07/18 Urine Culture Result 1 (ELEN) - Final, Complete 10/07/18 Antimicrobic Susceptibility - Final, Complete Medications Current Medications Sodium Chloride 1,000 ml @ 1,000 mls/hr Q1H IV Last administered on 10/07/18at 11:27; Start 10/07/18 at 10:52; Stop 10/07/18 at 11:51; Status DC Midazolam HCl 100 ml @ 1 mls/hr 1X ONCE IV Last administered on 10/07/18at 11:20; Start 10/07/18 at 11:15; Stop 10/09/18 at 15:55; Status DC Etomidate (Amidate) 20 mg STK-MED ONCE IV ; Start 10/07/18 at 11:13; Stop 10/07/18 at 11:14; Status DC Succinylcholine Chloride (Anectine) 200 mg STK-MED ONCE .ROUTE ; Start 10/07/18 at 11:13; Stop 10/07/18 at 11:14; Status DC Etomidate (Amidate) 20 mg 1X ONCE IV Last administered on 10/07/18at 11:01; Start 10/07/18 at 11:30; Stop 10/07/18 at 11:33; Status DC Succinylcholine Chloride (Anectine) 100 mg 1X ONCE IV Last administered on at 11:01; Start 10/07/18 at 11:30; Stop 10/07/18 at 11:33; Status DC Albuterol Sulfate (Ventolin Neb Soln) 10 mg 1X ONCE CONT NEB ; Start 10/07/18 at 12:00; Stop 10/07/18 at 12:01; Status DC Methylprednisolone Sodium Succinate (SOLU-Medrol 125MG VIAL) 125 mg 1X ONCE IV Last administered on 10/07/18at 11:52; Start 10/07/18 at 12:00; Stop 10/07/18 at 12:01; Status DC Vancomycin HCl 250 ml @ 250 mls/hr 1X ONCE IV Last administered on 10/07/18at 12:27; Start 10/07/18 at 12:00; Stop 10/07/18 at 12:59; Status DC Levofloxacin/ Dextrose 150 ml @ 100 mls/hr 1X ONCE IV Last administered on 10/07/18at 12:28; Start 10/07/18 at 12:00; Stop 10/07/18 at 13:29; Status DC Sodium Chloride 1,000 ml @ 1,000 mls/hr 1X ONCE IV Last administered on 10/07/18at 12:57; Start 10/07/18 at 12:45; Stop 10/07/18 at 13:44; Status DC Sodium Chloride 1,000 ml @ 1,000 mls/hr 1X ONCE IV Last administered on 10/07/18at 12:58; Start 10/07/18 at 12:45; Stop 10/07/18 at 13:44; Status DC Dextrose (Dextrose 50%-Water Syringe) 25 gm 1X ONCE IV Last administered on 10/07/18at 12:59; Start 10/07/18 at 12:45; Stop 10/07/18 at 12:46; Status DC Insulin Human Regular (HumuLIN R VIAL) 10 unit 1X ONCE IV Last administered on 10/07/18at 13:00; Start 10/07/18 at 12:45; Stop 10/07/18 at 12:46; Status DC Sodium Bicarbonate (Sodium Bicarb Adult 8.4% Syr) 50 meq 1X ONCE IV Last administered on 10/07/18at 13:07; Start 10/07/18 at 12:45; Stop 10/07/18 at 12:46; Status DC Sodium Chloride 1,000 ml @ 100 mls/hr Q10H IV ; Start 10/07/18 at 16:00; Stop 10/07/18 at 16:00; Status DC Pantoprazole Sodium (PROTONIX VIAL for IV PUSH) 40 mg DAILYAC IVP Last administered on 10/08/18at 08:25; Start 10/07/18 at 13:30; Stop 10/08/18 at 09:54; Status DC Pantoprazole Sodium (PROTONIX VIAL for IV PUSH) 40 mg 1X ONCE IVP ; Start 10/07/18 at 12:45; Stop 10/07/18 at 12:46; Status UNV Heparin Sodium (Porcine) (Heparin Sodium) 5,000 unit Q8HRS SQ Last administered on 10/15/18at 05:47; Start 10/07/18 at 14:00 Levofloxacin/ Dextrose (Levaquin Per Pharmacy) 1 each PRN DAILY PRN MC SEE COMMENTS; Start 10/07/18 at 12:45; Stop 10/08/18 at 07:33; Status DC Insulin Human Lispro (HumaLOG) 0-9 UNITS TIDWMEALS SQ ; Start 10/07/18 at 17:00; Stop 10/07/18 at 17:00; Status DC Dextrose (Dextrose 50%-Water Syringe) 12.5 gm PRN Q15MIN PRN IV SEE COMMENTS; Start 10/07/18 at 12:45 Albuterol/ Ipratropium (Duoneb) 3 ml RTQID NEB ; Start 10/07/18 at 16:00; Status Cancel Methylprednisolone Sodium Succinate (SOLU-Medrol 40MG VIAL) 40 mg Q8HRS IV Last administered on 10/14/18at 05:48; Start 10/07/18 at 22:00; Stop 10/14/18 at 09:29; Status DC Acetaminophen (Tylenol) 650 mg PRN Q6HRS PRN PEG MILD PAIN / TEMP Last administered on 10/08/18at 08:25; Start 10/07/18 at 12:45 Morphine Sulfate (Morphine Sulfate) 2 mg PRN Q2HR PRN IV PAIN Last administered on 10/15/18at 07:24; Start 10/07/18 at 12:45 Ondansetron HCl (Zofran) 4 mg PRN Q6HRS PRN IV NAUSEA/VOMITING; Start 10/07/18 at 12:45 Norepinephrine Bitartrate 250 ml @ 1.875 mls/ hr CONT PRN IV SEE I/O RECORD Last administered on 10/07/18at 14:01; Start 10/07/18 at 14:00 Sodium Chloride 1,000 ml @ 150 mls/hr Q6H40M IV Last administered on 10/08/18 15:09; Start 10/07/18 at 14:00; Stop 10/08/18 at 13:59; Status DC Calcium Gluconate (Calcium Gluconate) 1,000 mg 1X ONCE IVP ; Start 10/07/18 at 13:30; Stop 10/07/18 at 13:31; Status Cancel Sodium Polystyrene Sulfonate (Kayexalate) 15 gm 1X ONCE PO Last administered on 10/07/18at 14:10; Start 10/07/18 at 13:30; Stop 10/07/18 at 13:31; Status DC Pantoprazole Sodium (PROTONIX VIAL for IV PUSH) 40 mg STK-MED ONCE IVP ; Start 10/07/18 at 12:52; Stop 10/07/18 at 12:55; Status DC Levofloxacin/ Dextrose 150 ml @ 100 mls/hr Q48H IV ; Start 10/09/18 at 12:00; Stop 10/09/18 at 12:00; Status DC Calcium Gluconate 1000 mg/Sodium Chloride 110 ml @ 220 mls/hr 1X ONCE IV Last administered on 10/07/18at 14:23; Start 10/07/18 at 15:00; Stop 10/07/18 at 15:29; Status DC Sodium Chloride 1,000 ml @ 1,000 mls/hr 1X ONCE IV Last administered on 10/07/18at 14:50; Start 10/07/18 at 15:00; Stop 10/07/18 at 15:59; Status DC Sodium Chloride 1,000 ml @ 999 mls/hr 1X ONCE IV ; Start 10/07/18 at 15:00; Stop 10/07/18 at 16:00; Status DC Albuterol Sulfate (Ventolin Neb Soln) 2.5 mg PRN Q2HR PRN NEB DYSPNEA; Start 10/07/18 at 15:00 Albuterol/ Ipratropium (Duoneb) 3 ml RTQID NEB Last administered on 10/15/18at 07:29; Start 10/07/18 at 16:00 Insulin Human Lispro (HumaLOG) 0-9 UNITS Q6HRS SQ Last administered on 10/15/18at 05:48; Start 10/07/18 at 18:00 Meropenem 500 mg/ Sodium Chloride 50 ml @ 100 mls/hr Q8HRS IV Last administered on 10/15/18at 05:48; Start 10/07/18 at 17:00 Midazolam HCl 100 ml @ 5 mls/hr CONT PRN IV SEE I/O RECORD Last administered on 10/15/18at 08:31; Start 10/08/18 at 04:15 Lactobacillus Rhamnosus (Culturelle) 1 cap BID PO ; Start 10/08/18 at 09:00; Stop 10/09/18 at 15:58; Status DC Famotidine (Pepcid Vial) 20 mg QHS IVP Last administered on 10/14/18at 21:18; Start 10/08/18 at 21:00 Linezolid/Dextrose 300 ml @ 300 mls/hr Q12HR IV Last administered on 10/09/18at 20:58; Start 10/08/18 at 11:30; Stop 10/10/18 at 07:24; Status DC Doxycycline Hyclate 100 mg/ Dextrose 100 ml @ 50 mls/hr Q12HR IV Last administered on 10/15/18at 08:28; Start 10/09/18 at 13:00 Aspirin (Ecotrin) 81 mg [id number] PO Last administered on 10/15/18at 08:29; Start 10/10/18 at 08:00 Furosemide (Lasix) 40 mg 1X ONCE IVP Last administered on 10/11/18at 08:36; Start 10/11/18 at 09:00; Stop 10/11/18 at 09:01; Status DC Lisinopril (Prinivil) 10 mg DAILY PO Last administered on 10/14/18at 08:03; Start 10/11/18 at 14:00 Furosemide (Lasix) 40 mg DAILY IVP Last administered on 10/14/18at 08:04; Start 10/12/18 at 12:30 Amlodipine Besylate (Norvasc) 5 mg DAILY PO Last administered on 10/14/18at 08:04; Start 10/12/18 at 12:30 Hydralazine HCl (Apresoline Inj) 10 mg PRN Q4HRS PRN IVP ELEVATED BP, SEE COMMENTS; Start 10/12/18 at 11:45 Insulin Glargine (Lantus) 10 units QHS SQ Last administered on 10/14/18at 21:19; Start 10/13/18 at 21:00 Ondansetron HCl (Zofran) 4 mg PRN Q6HRS PRN IV NAUSEA/VOMITING; Start 10/16/18 at 07:00; Stop 10/17/18 at 06:59 Fentanyl Citrate (Fentanyl 2ml Vial) 25 mcg PRN Q5MIN PRN IV MILD PAIN 1-3; Start 10/16/18 at 07:00; Stop 10/17/18 at 06:59 Fentanyl Citrate (Fentanyl 2ml Vial) 50 mcg PRN Q5MIN PRN IV MODERATE TO SEVERE PAIN; Start 10/16/18 at 07:00; Stop 10/17/18 at 06:59 Morphine Sulfate (Morphine Sulfate) 1 mg PRN Q10MIN PRN IV SEVERE PAIN 7-10; Start 10/16/18 at 07:00; Stop 10/17/18 at 06:59 Ringer's Solution 1,000 ml @ 30 mls/hr Q24H IV ; Start 10/16/18 at 07:00; Stop 10/16/18 at 18:59 Lidocaine HCl (Xylocaine-Mpf 1% 2ml Vial) 2 ml PRN 1X PRN ID PRIOR TO IV START; Start 10/16/18 at 07:00; Stop 10/17/18 at 06:59 Hydromorphone HCl (Dilaudid) 0.5 mg PRN Q10MIN PRN IV SEV PAIN, Second choice; Start 10/16/18 at 07:00; Stop 10/17/18 at 06:59 Prochlorperazine Edisylate (Compazine) 5 mg PACU PRN PRN IV NAUSEA, MRX1; Start 10/16/18 at 07:00; Stop 10/17/18 at 06:59 Fentanyl Citrate (Fentanyl 2ml Vial) 50 mcg PRN Q2HR PRN IV PAIN Last administered on 10/14/18at 19:47; Start 10/14/18 at 00:30 Methylprednisolone Sodium Succinate (SOLU-Medrol 40MG VIAL) 40 mg Q12HR IV Last administered on 10/15/18at 08:28; Start 10/14/18 at 21:00 Active Scripts Active Reported Proair Hfa (Albuterol Sulfate) 8.5 Gm Hfa.aer.ad 1 Puff INH PRN Q6HRS PRN Oxazepam 30 Mg Capsule 30 Mg PO QHS Vitals/I & O Vital Sign - Last 24 Hours 10/14/18 10/14/18 10/14/18 10/14/18 09:00 09:00 09:44 10:00 Pulse 56 68 Resp 22 22 22 B/P (MAP) 99/56 (70) 136/43 (74) Pulse Ox 100 100 100 O2 Delivery Ventilator Ventilator Ventilator Ventilator 10/14/18 10/14/18 10/14/18 10/14/18 10:50 11:00 11:54 12:00 Pulse 77 Resp 22 22 B/P (MAP) 151/49 (83) Pulse Ox 100 100 99 O2 Delivery Ventilator Ventilator Mechanical Ventilator 10/14/18 10/14/18 10/14/18 10/14/18 12:00 13:00 13:29 14:00 Temp 98.2 98.2 Pulse 57 62 60 Resp 22 22 22 B/P (MAP) 92/46 (61) 106/40 (62) 127/58 (81) Pulse Ox 99 99 99 99 O2 Delivery Ventilator Ventilator Ventilator Ventilator 10/14/18 10/14/18 10/14/18 10/14/18 15:00 15:17 16:00 16:00 Temp 98.4 98.4 Pulse 60 57 Resp 22 22 B/P (MAP) 128/70 (89) 99/43 (61) Pulse Ox 98 100 100 O2 Delivery Ventilator Ventilator Mechanical Ventilator Ventilator 5/10/14/18 10/14/18 10/14/18 16:10 17:00 17:11 18:00 Pulse 55 51 Resp 22 22 22 B/P (MAP) 96/47 (63) 118/49 (72) Pulse Ox 100 100 99 100 O2 Delivery Ventilator Ventilator Ventilator Ventilator 10/14/18 10/14/18 10/14/18 10/14/18 19:00 19:20 19:47 19:52 Temp 98.3 98.3 Pulse 51 Resp 22 22 B/P (MAP) 116/50 (72) Pulse Ox 99 99 98 O2 Delivery Ventilator Ventilator BiPAP/CPAP Mechanical Ventilator 10/14/18 10/14/18 10/14/18 10/14/18 20:00 20:17 21:00 22:00 Pulse 51 55 58 Resp 22 22 22 B/P (MAP) 90/47 (61) 103/40 (61) 111/53 (72) Pulse Ox 99 99 100 99 O2 Delivery Ventilator Ventilator Ventilator 10/14/18 10/14/18 10/15/18 10/15/18 22:05 23:00 00:00 00:15 Temp 97.5 97.5 Pulse 50 50 Resp 22 22 B/P (MAP) 100/35 (56) 84/35 (51) Pulse Ox 99 96 97 O2 Delivery Ventilator Ventilator Ventilator Mechanical Ventilator 10/15/18 10/15/18 10/15/18 10/15/18 00:20 01:00 01:50 02:00 Pulse 51 46 Resp 22 22 B/P (MAP) 92/42 (59) 86/37 (53) Pulse Ox 95 96 95 95 O2 Delivery Ventilator Ventilator Ventilator Ventilator 10/15/18 10/15/18 10/15/18 10/15/18 03:00 03:47 03:50 04:00 Temp 98.2 98.2 Pulse 63 56 Resp 22 22 B/P (MAP) 89/47 (61) 128/47 (74) Pulse Ox 94 95 95 O2 Delivery Ventilator Mechanical Ventilator Ventilator Ventilator 10/15/18 10/15/18 10/15/18 10/15/18 05:00 06:00 06:00 07:00 Pulse 61 63 71 Resp 22 22 22 B/P (MAP) 105/48 (67) 109/52 (71) 130/61 (84) Pulse Ox 97 95 95 22 O2 Delivery Ventilator Ventilator Ventilator Ventilator 10/15/18 10/15/18 10/15/18 07:24 07:29 08:00 Resp 22 22 Pulse Ox 99 100 100 O2 Delivery Ventilator Ventilator Ventilator Intake and Output 10/14/18 10/14/18 10/15/18 14:59 22:59 06:59 Intake Total 350 ml 1522 ml 1453 ml Output Total 1230 ml 370 ml 270 ml Balance -880 ml 1152 ml 1183 ml SANDRA OROURKE MD October 15, 2018 08:46
[2018-10-15] MEDS: amLODIPine BESYLATE 5 MG TABLET PO SCH (09:00)
[2018-10-15] MEDS: FUROSEMIDE 40 MG/4 ML VIAL. IVP SCH (09:00)
[2018-10-15] MEDS: LISINOPRIL 10 MG TABLET PO SCH (09:00)
--- NOTE | 2018-10-15 09:00 | PDOC ---
PROGRESS NOTES Subjective Subjective Remains intubated Objective Objective Vital Signs Date Time Temp Pulse Resp B/P (MAP) Pulse Ox O2 Delivery O2 Flow Rate FiO2 10/15/18 08:00 22 100 Ventilator 10/15/18 07:00 71 130/61 (84) 10/15/18 04:00 98.2 98.2 Intake and Output 10/15/18 06:59 Intake Total 3325 ml Output Total 1870 ml Balance 1455 ml IV Total 529 ml Tube Feeding 2546 ml Other 250 ml Output Urine Total 1870 ml Physical Exam Abdomen: Soft Heart: Regular rate, Normal S1, Normal S2 Extremities: Other (trace edema) General: Other HEENT: Atraumatic, Other (upper airway landmarks clearly identified) Lungs: Other (rales) MUSCULOSKELETAL: No deformity Skin: No significant lesion Assessment Assessment 1. Acute respiratory failure secondary to combination of AECOPD, CHF, PNA; s/p intubation. Failed trail, plan for tracheostomy and PEG mon/tues. Pulmonary following. 2. NSTEMI; peak 0.8. Most probably type II, demand ischemia. Telemetry did not show any further arrhythmias. Ischemic workup could be considered at a later date. 3. Acute on chronic systolic HF better compensated. LVEF 40%. Lisinopril and Lasix on hold for prerenal picture.: 4. Hypertension, labile, presently better controlled. Plan Plan of Care Problems Medical Problems: (1) Acute respiratory distress Status: Acute (2) CAP (community acquired pneumonia) Status: Acute (3) CHF (congestive heart failure) Status: Acute (4) Elevated liver function tests Status: Acute (5) Elevated troponin I level Status: Acute (6) Hyperkalemia Status: Acute (7) Renal insufficiency Status: Acute (8) Sepsis Status: Acute (9) Unresponsiveness Status: Acute (10) Urinary tract infection Status: Acute Comment Review of Relevant I have reviewed the following items akbar (where applicable) has been applied. Labs Laboratory Tests Test 10/14/18 11:48 10/14/18 17:39 10/14/18 21:17 10/14/18 23:39 Glucose (Fingerstick) 154 mg/dL (70-99) 163 mg/dL (70-99) 157 mg/dL (70-99) 191 mg/dL (70-99) Test 10/15/18 03:30 10/15/18 05:46 White Blood Count 9.8 x10^3/uL (4.0-11.0) Red Blood Count 3.96 x10^6/uL (4.30-5.70) Hemoglobin 11.9 g/dL (13.0-17.5) Hematocrit 36.4 % (39.0-53.0) Mean Corpuscular Volume 92 fL (79-100) Mean Corpuscular Hemoglobin 30 pg (25-35) Mean Corpuscular Hemoglobin Concent 33 g/dL (31-37) Red Cell Distribution Width 16.6 % (11.5-14.5) Platelet Count 176 x10^3/uL (140-400) Neutrophils (%) (Auto) 88 % (31-73) Lymphocytes (%) (Auto) 6 % (24-48) Monocytes (%) (Auto) 6 % (0-9) Eosinophils (%) (Auto) 0 % (0-3) Basophils (%) (Auto) 0 % (0-3) Neutrophils # (Auto) 8.6 x10^3uL (1.8-7.7) Lymphocytes # (Auto) 0.6 x10^3/uL (1.0-4.8) Monocytes # (Auto) 0.5 x10^3/uL (0.0-1.1) Eosinophils # (Auto) 0.0 x10^3/uL (0.0-0.7) Basophils # (Auto) 0.0 x10^3/uL (0.0-0.2) Prothrombin Time 13.0 SEC (11.7-14.0) Prothromb Time International Ratio 1.0 (0.8-1.1) Sodium Level 144 mmol/L (136-145) Potassium Level 5.4 mmol/L (3.5-5.1) Chloride Level 107 mmol/L (98-107) Carbon Dioxide Level 34 mmol/L (21-32) Anion Gap 3 (6-14) Blood Urea Nitrogen 81 mg/dL (8-26) Creatinine 1.4 mg/dL (0.7-1.3) Estimated GFR (Cockcroft-Gault) 49.3 Glucose Level 278 mg/dL (70-99) Calcium Level 8.2 mg/dL (8.5-10.1) Glucose (Fingerstick) 277 mg/dL (70-99) Microbiology 10/07/18 Blood Culture - Final, Complete NO GROWTH AFTER 5 DAYS 10/08/18 - Final, Complete 10/08/18 - Final, Complete 10/08/18 - Final, Complete 10/08/18 - Final, Complete 10/08/18 - Final, Complete 10/08/18 Gram Stain Evaluation - Final, Complete 10/08/18 Sputum Culture - Final, Complete 10/08/18 Sputum Result 1 - Final, Complete 10/07/18 Urine Culture - Final, Complete 10/07/18 Urine Culture Result 1 (ELEN) - Final, Complete 10/07/18 Antimicrobic Susceptibility - Final, Complete Medications Current Medications Fentanyl Citrate (Fentanyl 2ml Vial) 25 mcg PRN Q5MIN PRN IV MILD PAIN 1-3; Start 10/16/18 at 07:00; Stop 10/17/18 at 06:59 Fentanyl Citrate (Fentanyl 2ml Vial) 50 mcg PRN Q5MIN PRN IV MODERATE TO SEVERE PAIN; Start 10/16/18 at 07:00; Stop 10/17/18 at 06:59 Hydromorphone HCl (Dilaudid) 0.5 mg PRN Q10MIN PRN IV SEV PAIN, Second choice; Start 10/16/18 at 07:00; Stop 10/17/18 at 06:59 Lidocaine HCl (Xylocaine-Mpf 1% 2ml Vial) 2 ml PRN 1X PRN ID PRIOR TO IV START; Start 10/16/18 at 07:00; Stop 10/17/18 at 06:59 Methylprednisolone Sodium Succinate (SOLU-Medrol 40MG VIAL) 40 mg Q12HR IV Last administered on 10/15/18at 08:28; Start 10/14/18 at 21:00 Morphine Sulfate (Morphine Sulfate) 1 mg PRN Q10MIN PRN IV SEVERE PAIN 7-10; Start 10/16/18 at 07:00; Stop 10/17/18 at 06:59 Ondansetron HCl (Zofran) 4 mg PRN Q6HRS PRN IV NAUSEA/VOMITING; Start 10/16/18 at 07:00; Stop 10/17/18 at 06:59 Prochlorperazine Edisylate (Compazine) 5 mg PACU PRN PRN IV NAUSEA, MRX1; Start 10/16/18 at 07:00; Stop 10/17/18 at 06:59 Ringer's Solution 1,000 ml @ 30 mls/hr Q24H IV ; Start 10/16/18 at 07:00; Stop 10/16/18 at 18:59 Vitals/I & O Vital Sign - Last 24 Hours 10/14/18 10/14/18 10/14/18 10/14/18 09:44 10:00 10:50 11:00 Pulse 68 77 Resp 22 22 22 B/P (MAP) 136/43 (74) 151/49 (83) Pulse Ox 100 100 100 100 O2 Delivery Ventilator Ventilator Ventilator 10/14/18 10/14/18 10/14/18 10/14/18 11:54 12:00 12:00 13:00 Temp 98.2 98.2 Pulse 57 62 Resp 22 22 B/P (MAP) 92/46 (61) 106/40 (62) Pulse Ox 99 99 99 O2 Delivery Ventilator Mechanical Ventilator Ventilator Ventilator 10/14/18 10/14/18 10/14/18 10/14/18 13:29 14:00 15:00 15:17 Pulse 60 60 Resp 22 22 B/P (MAP) 127/58 (81) 128/70 (89) Pulse Ox 99 99 98 100 O2 Delivery Ventilator Ventilator Ventilator Ventilator 10/14/18 10/14/18 10/14/18 10/14/18 16:00 16:00 16:10 17:00 Temp 98.4 98.4 Pulse 57 55 Resp 22 22 22 B/P (MAP) 99/43 (61) 96/47 (63) Pulse Ox 100 100 100 O2 Delivery Mechanical Ventilator Ventilator Ventilator Ventilator 10/14/18 10/14/18 10/14/18 10/14/18 17:11 18:00 19:00 19:20 Temp 98.3 98.3 Pulse 51 51 Resp 22 22 B/P (MAP) 118/49 (72) 116/50 (72) Pulse Ox 99 100 99 99 O2 Delivery Ventilator Ventilator Ventilator Ventilator 10/14/18 10/14/18 10/14/18 10/14/18 19:47 19:52 20:00 20:17 Pulse 51 Resp 22 22 B/P (MAP) 90/47 (61) Pulse Ox 98 99 99 O2 Delivery BiPAP/CPAP Mechanical Ventilator Ventilator 10/14/18 10/14/18 10/14/18 10/14/18 21:00 22:00 22:05 23:00 Pulse 55 58 50 Resp 22 22 22 B/P (MAP) 103/40 (61) 111/53 (72) 100/35 (56) Pulse Ox 100 99 99 96 O2 Delivery Ventilator Ventilator Ventilator Ventilator 10/15/18 10/15/18 10/15/18 10/15/18 00:00 00:15 00:20 01:00 Temp 97.5 97.5 Pulse 50 51 Resp 22 22 B/P (MAP) 84/35 (51) 92/42 (59) Pulse Ox 97 95 96 O2 Delivery Ventilator Mechanical Ventilator Ventilator Ventilator 10/15/18 10/15/18 10/15/18 10/15/18 01:50 02:00 03:00 03:47 Pulse 46 63 Resp 22 22 B/P (MAP) 86/37 (53) 89/47 (61) Pulse Ox 95 95 94 O2 Delivery Ventilator Ventilator Ventilator Mechanical Ventilator 10/15/18 10/15/18 10/15/18 10/15/18 03:50 04:00 05:00 06:00 Temp 98.2 98.2 Pulse 56 61 63 Resp 22 22 22 B/P (MAP) 128/47 (74) 105/48 (67) 109/52 (71) Pulse Ox 95 95 97 95 O2 Delivery Ventilator Ventilator Ventilator Ventilator 10/15/18 10/15/18 10/15/18 10/15/18 06:00 07:00 07:24 07:29 Pulse 71 Resp 22 22 B/P (MAP) 130/61 (84) Pulse Ox 95 22 99 100 O2 Delivery Ventilator Ventilator Ventilator Ventilator 10/15/18 08:00 Resp 22 Pulse Ox 100 O2 Delivery Ventilator Intake and Output 10/14/18 10/14/18 10/15/18 14:59 22:59 06:59 Intake Total 350 ml 1522 ml 1453 ml Output Total 1230 ml 370 ml 270 ml Balance -880 ml 1152 ml 1183 ml SUAD FISCHER MD October 15, 2018 09:00
[2018-10-15 09:16] LABS: BASE EXCESS ABG 3 mmol/L (-3-3); HCO3 ABG 29 mmol/L (21-28); PCO2 ABG 50 mmHg (35-46); PO2 ABG 84 mmHg (65-108); SAT O2 ABG 95 % (92-99)
[2018-10-15 09:25] LABS: FIO2 ABG 35
[2018-10-15 09:29] LABS: % BANDS 2 % (0-9); % LYMPHS 4 % (24-48); % MONOS 2 % (0-10); % SEGS 92 % (35-66); PLT ESTIMATE ADEQUATE (ADEQUATE)
[2018-10-15] MEDS ORDERED: IV NORMAL SALINE 500ML BAG 500 ML IV ONE (09:30)
--- NOTE | 2018-10-15 09:33 | RAD ---
EXAM: CHEST 1 VIEW History: Ventilation COMPARISON: 10/14/2018 TECHNIQUE: Single portable radiograph of the chest FINDINGS: ET tube, feeding tube, right-sided internal jugular line unchanged. Minimal left lung base airspace opacities likely atelectasis or infiltrate. Trace bilateral pleural effusions. IMPRESSION: 1. Lines and tubes unchanged. 2. Minimal bibasilar lung atelectasis or infiltrates with trace pleural effusions. Electronically signed by: Lanre Peralta MD (10/15/2018 9:30 AM) [facility]
--- NOTE | 2018-10-15 11:24 | PDOC ---
G I PROGRESS NOTE Subjective Sedated on ventilator. Objective Non-specifically different today. Transiently desatted. Irregular rhythm/bradycardic. Physical Exam Lungs clear anteriorly. RRR with extrasystoles. Abdomen soft, not distended. Review of Relevant I have reviewed the following items akbar (where applicable) has been applied. Labs Laboratory Tests Test 10/13/18 11:52 10/13/18 16:30 10/13/18 18:24 10/14/18 00:38 Glucose (Fingerstick) 189 mg/dL (70-99) 283 mg/dL (70-99) 255 mg/dL (70-99) Sodium Level 145 mmol/L (136-145) Potassium Level 5.1 mmol/L (3.5-5.1) Chloride Level 106 mmol/L (98-107) Carbon Dioxide Level 35 mmol/L (21-32) Anion Gap 4 (6-14) Blood Urea Nitrogen 61 mg/dL (8-26) Creatinine 1.3 mg/dL (0.7-1.3) Estimated GFR (Cockcroft-Gault) 53.7 Glucose Level 267 mg/dL (70-99) Calcium Level 8.2 mg/dL (8.5-10.1) Magnesium Level 2.0 mg/dL (1.8-2.4) Test 10/14/18 05:42 10/14/18 05:45 10/14/18 08:13 10/14/18 11:48 Glucose (Fingerstick) 231 mg/dL (70-99) 154 mg/dL (70-99) White Blood Count 10.3 x10^3/uL (4.0-11.0) Red Blood Count 4.09 x10^6/uL (4.30-5.70) Hemoglobin 11.8 g/dL (13.0-17.5) Hematocrit 37.6 % (39.0-53.0) Mean Corpuscular Volume 92 fL (79-100) Mean Corpuscular Hemoglobin 29 pg (25-35) Mean Corpuscular Hemoglobin Concent 32 g/dL (31-37) Red Cell Distribution Width 16.9 % (11.5-14.5) Platelet Count 176 x10^3/uL (140-400) Neutrophils (%) (Auto) 87 % (31-73) Lymphocytes (%) (Auto) 6 % (24-48) Monocytes (%) (Auto) 6 % (0-9) Eosinophils (%) (Auto) 0 % (0-3) Basophils (%) (Auto) 0 % (0-3) Neutrophils # (Auto) 9.0 x10^3uL (1.8-7.7) Lymphocytes # (Auto) 0.6 x10^3/uL (1.0-4.8) Monocytes # (Auto) 0.7 x10^3/uL (0.0-1.1) Eosinophils # (Auto) 0.0 x10^3/uL (0.0-0.7) Basophils # (Auto) 0.0 x10^3/uL (0.0-0.2) Sodium Level 142 mmol/L (136-145) Potassium Level 5.2 mmol/L (3.5-5.1) Chloride Level 106 mmol/L (98-107) Carbon Dioxide Level 32 mmol/L (21-32) Anion Gap 4 (6-14) Blood Urea Nitrogen 69 mg/dL (8-26) Creatinine 1.2 mg/dL (0.7-1.3) Estimated GFR (Cockcroft-Gault) 58.9 BUN/Creatinine Ratio 58 (6-20) Glucose Level 250 mg/dL (70-99) Calcium Level 8.1 mg/dL (8.5-10.1) Total Bilirubin 0.6 mg/dL (0.2-1.0) Aspartate Amino Transf (AST/SGOT) 18 U/L (15-37) Alanine Aminotransferase (ALT/SGPT) 64 U/L (16-63) Alkaline Phosphatase 49 U/L (46-116) Total Protein 5.3 g/dL (6.4-8.2) Albumin 2.3 g/dL (3.4-5.0) Albumin/Globulin Ratio 0.8 (1.0-1.7) O2 Saturation 94 % (92-99) Arterial Blood pH 7.36 (7.35-7.45) Arterial Blood pCO2 at Patient Temp 60 mmHg (35-46) Arterial Blood pO2 at Patient Temp 78 mmHg (65-108) Arterial Blood HCO3 33 mmol/L (21-28) Arterial Blood Base Excess 6 mmol/L (-3-3) FiO2 35 Test 5/18/19 17:39 10/14/18 21:17 10/14/18 23:39 10/15/18 03:30 Glucose (Fingerstick) 163 mg/dL (70-99) 157 mg/dL (70-99) 191 mg/dL (70-99) White Blood Count 9.8 x10^3/uL (4.0-11.0) Red Blood Count 3.96 x10^6/uL (4.30-5.70) Hemoglobin 11.9 g/dL (13.0-17.5) Hematocrit 36.4 % (39.0-53.0) Mean Corpuscular Volume 92 fL (79-100) Mean Corpuscular Hemoglobin 30 pg (25-35) Mean Corpuscular Hemoglobin Concent 33 g/dL (31-37) Red Cell Distribution Width 16.6 % (11.5-14.5) Platelet Count 176 x10^3/uL (140-400) Neutrophils (%) (Auto) 88 % (31-73) Lymphocytes (%) (Auto) 6 % (24-48) Monocytes (%) (Auto) 6 % (0-9) Eosinophils (%) (Auto) 0 % (0-3) Basophils (%) (Auto) 0 % (0-3) Neutrophils # (Auto) 8.6 x10^3uL (1.8-7.7) Lymphocytes # (Auto) 0.6 x10^3/uL (1.0-4.8) Monocytes # (Auto) 0.5 x10^3/uL (0.0-1.1) Eosinophils # (Auto) 0.0 x10^3/uL (0.0-0.7) Basophils # (Auto) 0.0 x10^3/uL (0.0-0.2) Segmented Neutrophils % 92 % (35-66) Band Neutrophils % 2 % (0-9) Lymphocytes % 4 % (24-48) Monocytes % 2 % (0-10) Platelet Estimate Adequate (ADEQUATE) Prothrombin Time 13.0 SEC (11.7-14.0) Prothromb Time International Ratio 1.0 (0.8-1.1) Sodium Level 144 mmol/L (136-145) Potassium Level 5.4 mmol/L (3.5-5.1) Chloride Level 107 mmol/L (98-107) Carbon Dioxide Level 34 mmol/L (21-32) Anion Gap 3 (6-14) Blood Urea Nitrogen 81 mg/dL (8-26) Creatinine 1.4 mg/dL (0.7-1.3) Estimated GFR (Cockcroft-Gault) 49.3 Glucose Level 278 mg/dL (70-99) Calcium Level 8.2 mg/dL (8.5-10.1) Test 10/15/18 05:46 10/15/18 09:00 Glucose (Fingerstick) 277 mg/dL (70-99) O2 Saturation 95 % (92-99) Arterial Blood pH 7.38 (7.35-7.45) Arterial Blood pCO2 at Patient Temp 50 mmHg (35-46) Arterial Blood pO2 at Patient Temp 84 mmHg (65-108) Arterial Blood HCO3 29 mmol/L (21-28) Arterial Blood Base Excess 3 mmol/L (-3-3) FiO2 35 Laboratory Tests Test 10/14/18 11:48 10/14/18 17:39 10/14/18 21:17 10/14/18 23:39 Glucose (Fingerstick) 154 mg/dL (70-99) 163 mg/dL (70-99) 157 mg/dL (70-99) 191 mg/dL (70-99) Test 10/15/18 03:30 10/15/18 05:46 10/15/18 09:00 White Blood Count 9.8 x10^3/uL (4.0-11.0) Red Blood Count 3.96 x10^6/uL (4.30-5.70) Hemoglobin 11.9 g/dL (13.0-17.5) Hematocrit 36.4 % (39.0-53.0) Mean Corpuscular Volume 92 fL (79-100) Mean Corpuscular Hemoglobin 30 pg (25-35) Mean Corpuscular Hemoglobin Concent 33 g/dL (31-37) Red Cell Distribution Width 16.6 % (11.5-14.5) Platelet Count 176 x10^3/uL (140-400) Neutrophils (%) (Auto) 88 % (31-73) Lymphocytes (%) (Auto) 6 % (24-48) Monocytes (%) (Auto) 6 % (0-9) Eosinophils (%) (Auto) 0 % (0-3) Basophils (%) (Auto) 0 % (0-3) Neutrophils # (Auto) 8.6 x10^3uL (1.8-7.7) Lymphocytes # (Auto) 0.6 x10^3/uL (1.0-4.8) Monocytes # (Auto) 0.5 x10^3/uL (0.0-1.1) Eosinophils # (Auto) 0.0 x10^3/uL (0.0-0.7) Basophils # (Auto) 0.0 x10^3/uL (0.0-0.2) Segmented Neutrophils % 92 % (35-66) Band Neutrophils % 2 % (0-9) Lymphocytes % 4 % (24-48) Monocytes % 2 % (0-10) Platelet Estimate Adequate (ADEQUATE) Prothrombin Time 13.0 SEC (11.7-14.0) Prothromb Time International Ratio 1.0 (0.8-1.1) Sodium Level 144 mmol/L (136-145) Potassium Level 5.4 mmol/L (3.5-5.1) Chloride Level 107 mmol/L (98-107) Carbon Dioxide Level 34 mmol/L (21-32) Anion Gap 3 (6-14) Blood Urea Nitrogen 81 mg/dL (8-26) Creatinine 1.4 mg/dL (0.7-1.3) Estimated GFR (Cockcroft-Gault) 49.3 Glucose Level 278 mg/dL (70-99) Calcium Level 8.2 mg/dL (8.5-10.1) Glucose (Fingerstick) 277 mg/dL (70-99) O2 Saturation 95 % (92-99) Arterial Blood pH 7.38 (7.35-7.45) Arterial Blood pCO2 at Patient Temp 50 mmHg (35-46) Arterial Blood pO2 at Patient Temp 84 mmHg (65-108) Arterial Blood HCO3 29 mmol/L (21-28) Arterial Blood Base Excess 3 mmol/L (-3-3) FiO2 35 Microbiology 10/07/18 Blood Culture - Final, Complete NO GROWTH AFTER 5 DAYS 10/08/18 - Final, Complete 10/08/18 - Final, Complete 10/08/18 - Final, Complete 10/08/18 - Final, Complete 10/08/18 - Final, Complete 10/08/18 Gram Stain Evaluation - Final, Complete 10/08/18 Sputum Culture - Final, Complete 10/08/18 Sputum Result 1 - Final, Complete 10/07/18 Urine Culture - Final, Complete 10/07/18 Urine Culture Result 1 (ELEN) - Final, Complete 10/07/18 Antimicrobic Susceptibility - Final, Complete Vitals/I & O Vital Sign - Last 24 Hours 10/14/18 10/14/18 10/14/18 10/14/18 11:54 12:00 12:00 13:00 Temp 98.2 98.2 Pulse 57 62 Resp 22 22 B/P (MAP) 92/46 (61) 106/40 (62) Pulse Ox 99 99 99 O2 Delivery Ventilator Mechanical Ventilator Ventilator Ventilator 10/14/18 10/14/18 10/14/18 10/14/18 13:29 14:00 15:00 15:17 Pulse 60 60 Resp 22 22 B/P (MAP) 127/58 (81) 128/70 (89) Pulse Ox 99 99 98 100 O2 Delivery Ventilator Ventilator Ventilator Ventilator 10/14/18 10/14/18 10/14/18 10/14/18 16:00 16:00 16:10 17:00 Temp 98.4 98.4 Pulse 57 55 Resp 22 22 22 B/P (MAP) 99/43 (61) 96/47 (63) Pulse Ox 100 100 100 O2 Delivery Mechanical Ventilator Ventilator Ventilator Ventilator 10/14/18 10/14/18 10/14/18 10/14/18 17:11 18:00 19:00 19:20 Temp 98.3 98.3 Pulse 51 51 Resp 22 22 B/P (MAP) 118/49 (72) 116/50 (72) Pulse Ox 99 100 99 99 O2 Delivery Ventilator Ventilator Ventilator Ventilator 10/14/18 10/14/18 10/14/18 10/14/18 19:47 19:52 20:00 20:17 Pulse 51 Resp 22 22 B/P (MAP) 90/47 (61) Pulse Ox 98 99 99 O2 Delivery BiPAP/CPAP Mechanical Ventilator Ventilator 10/14/18 10/14/18 10/14/18 10/14/18 21:00 22:00 22:05 23:00 Pulse 55 58 50 Resp 22 22 22 B/P (MAP) 103/40 (61) 111/53 (72) 100/35 (56) Pulse Ox 100 99 99 96 O2 Delivery Ventilator Ventilator Ventilator Ventilator 10/15/18 10/15/18 10/15/18 10/15/18 00:00 00:15 00:20 01:00 Temp 97.5 97.5 Pulse 50 51 Resp 22 22 B/P (MAP) 84/35 (51) 92/42 (59) Pulse Ox 97 95 96 O2 Delivery Ventilator Mechanical Ventilator Ventilator Ventilator 10/15/18 10/15/18 10/15/18 10/15/18 01:50 02:00 03:00 03:47 Pulse 46 63 Resp 22 22 B/P (MAP) 86/37 (53) 89/47 (61) Pulse Ox 95 95 94 O2 Delivery Ventilator Ventilator Ventilator Mechanical Ventilator 10/15/18 10/15/18 10/15/18 10/15/18 03:50 04:00 05:00 06:00 Temp 98.2 98.2 Pulse 56 61 63 Resp 22 22 22 B/P (MAP) 128/47 (74) 105/48 (67) 109/52 (71) Pulse Ox 95 95 97 95 O2 Delivery Ventilator Ventilator Ventilator Ventilator 10/15/18 10/15/18 10/15/18 10/15/18 06:00 07:00 07:24 07:29 Pulse 71 Resp 22 22 B/P (MAP) 130/61 (84) Pulse Ox 95 98 99 100 O2 Delivery Ventilator Ventilator Ventilator Ventilator 10/15/18 10/15/18 10/15/18 10/15/18 08:00 08:00 08:00 09:00 Temp 98.4 98.4 Pulse 62 58 Resp 22 22 B/P (MAP) 98/60 (73) 95/40 Pulse Ox 100 98 O2 Delivery Ventilator Mechanical Ventilator Ventilator 10/15/18 10/15/18 10/15/18 10/15/18 09:00 09:21 10:00 11:00 Pulse 68 58 56 Resp 22 22 22 B/P (MAP) 135/51 (79) 95/40 (58) 97/46 (63) Pulse Ox 98 100 99 96 O2 Delivery Ventilator Ventilator Ventilator Ventilator Intake and Output 10/14/18 10/14/18 10/15/18 15:00 23:00 07:00 Intake Total 350 ml 1522 ml 1453 ml Output Total 1225 ml 360 ml 320 ml Balance -875 ml 1162 ml 1133 ml Problem List Problems Medical Problems: (1) Acute respiratory distress Status: Acute (2) CAP (community acquired pneumonia) Status: Acute (3) CHF (congestive heart failure) Status: Acute (4) Elevated liver function tests Status: Acute (5) Elevated troponin I level Status: Acute (6) Hyperkalemia Status: Acute (7) Renal insufficiency Status: Acute (8) Sepsis Status: Acute (9) Unresponsiveness Status: Acute (10) Urinary tract infection Status: Acute Assessment Ongoing respiratory failure; different today. OP dysphagia. Plan of Care: Continue current Tx, Mgmt GLORIA NAVA MD October 15, 2018 11:24
[2018-10-15] MEDS: fentaNYL PF VIAL 100 MCG/2 ML VIAL IV PRN ×2 (12:02→19:24)
[2018-10-15] MEDS: IV NORMAL SALINE 1000ML BAG 1,000 ML IV SCH (12:03)
[2018-10-15] MEDS: BISACODYL 10 MG SUPP.RECT. PR PRN (13:43)
[2018-10-15] MEDS: FAMOTIDINE 20 MG/2 ML VIAL IVP SCH (20:55)
[2018-10-15] MEDS: INSULIN GLARGINE 300 UNITS/3 ML INSULN.PEN. SQ SCH (20:59)
[2018-10-16] VITALS (24 sets, daily range): BP systolic 82–164; BP diastolic 38–89
[2018-10-16] MEDS: fentaNYL PF VIAL 100 MCG/2 ML VIAL IV PRN ×2 (01:03→20:19)
--- NOTE | 2018-10-16 03:03 | CONS ---
DATE OF CONSULTATION: REASON FOR CONSULTATION: Renal failure. HISTORY OF PRESENT ILLNESS: This is a 78-year-old gentleman with history of severe end-stage COPD. He is currently on ventilator and is scheduled for a tracheostomy placement. He also has a history of cerebrovascular accident. Laboratories are notable for increased creatinine of 1.4, GFR 49 and potassium 5.4 in the setting of Nephrology evaluation is requested. PAST MEDICAL HISTORY: COPD, congestive cardiomyopathy, urinary tract infections, chronic kidney disease stage 3 and community-acquired infectious pneumonitis. ALLERGIES: PENICILLIN and ERYTHROMYCIN. MEDICATIONS: Reviewed per medication list. FAMILY HISTORY: Noncontributory. SOCIAL HISTORY: Resides with assistance. REVIEW OF SYSTEMS: The patient is intubated and unable to provide any information. PHYSICAL EXAMINATION: GENERAL APPEARANCE: The patient is chronically ill appearing, intubated. HEENT: Oral intubation. NECK: No increased JVD. No thyromegaly, mass or adenopathy. LUNGS: Clear. CARDIAC: Without S3 or rub. ABDOMEN: Soft and nontender. EXTREMITIES: Without edema. NEUROPSYCHIATRIC: Awake and stares. LABORATORY DATA: Sodium 144, potassium 5.4, chloride 107, CO2 is 34, BUN 81, creatinine 1.4 and GFR 49. Hemoglobin and hematocrit 36%. GFR on presentation was 30.9 and his best was 58.9. IMPRESSION: 1. Chronic kidney disease stage 3 likely secondary to hypertensive nephrosclerosis. 2. Mild hyperkalemia. RECOMMENDATIONS: Overall, the patient appears somewhat intravascularly deplete. We will begin IV fluid administration and follow response. GLORIA DARNELL MD DR: ZACH/brianne JOB#: [id number] / [id number]
[2018-10-16] MEDS: IV NORMAL SALINE 1000ML BAG 1,000 ML IV SCH ×2 (03:13→14:25)
[2018-10-16] MEDS: MIDAZOLAM 100mg/100ml NS BAG 100 ML IV PRN ×3 (03:20→21:30)
[2018-10-16 04:44] LABS: BASO % 0 % (0-3); EOS # 0.1 x10^3/uL (0.0-0.7); EOS % 1 % (0-3); HEMATOCRIT 36.3 % (39.0-53.0); HEMOGLOBIN 11.6 g/dL (13.0-17.5); LYMPH # 1.2 x10^3/uL (1.0-4.8); LYMPH % 12 % (24-48); MEAN CORPUSCULAR HEMOGLOBIN 30 pg (25-35); MEAN CORPUSCULAR HGB CONC 32 g/dL (31-37); MEAN CORPUSCULAR VOLUME 92 fL (79-100); MONO # 0.8 x10^3/uL (0.0-1.1); MONO % 8 % (0-9); NEUT # 7.6 x10^3uL (1.8-7.7); NEUT % 79 % (31-73); PLATELET COUNT 171 x10^3/uL (140-400); RED BLOOD COUNT 3.93 x10^6/uL (4.30-5.70); RED CELL DISTRIBUTION WIDTH 16.9 % (11.5-14.5); WHITE BLOOD COUNT 9.7 x10^3/uL (4.0-11.0)
[2018-10-16 04:51] LABS: ALBUMIN 2.2 g/dL (3.4-5.0); ALBUMIN/GLOBULIN RATIO 0.8 (1.0-1.7); CALCIUM 8.1 mg/dL (8.5-10.1); CREATININE 1.2 mg/dL (0.7-1.3); GFR 58.9; POTASSIUM 4.8 mmol/L (3.5-5.1); TOTAL BILIRUBIN 0.9 mg/dL (0.2-1.0); TOTAL PROTEIN 5.1 g/dL (6.4-8.2)
[2018-10-16] MEDS: HEPARIN for SUB-Q USE 5,000 UNIT/ML VIAL. SQ SCH ×3 (05:32→21:30)
[2018-10-16] MEDS: INSULIN LISPRO 300 UNITS/3 ML INSULN.PEN. SQ SCH ×5 (05:33→23:43)
[2018-10-16] MEDS: MEROPENEM 500 MG in IV NORMAL SALINE 50ML 50 ML IV SCH ×3 (05:33→21:24)
--- NOTE | 2018-10-16 05:40 | RAD ---
AP chest. HISTORY: Patient on ventilator AP view was taken of the chest. Central line and endotracheal tube are unchanged. NG tube extends to the stomach. No new infiltrates are noted. IMPRESSION: 1. No change compared to the prior study. 2. Tubes and lines unchanged. Electronically signed by: Simon Alvarez MD (10/16/2018 5:37 AM) [id number]
[2018-10-16] MEDS ORDERED: fentaNYL PF VIAL 100 MCG/2 ML VIAL IV PRN (07:00)
[2018-10-16] MEDS ORDERED: MORPHINE SULFATE 2 MG/ML VIAL. IV PRN (07:00)
[2018-10-16] MEDS ORDERED: IV RINGERS,LACTATED 1000ML 1,000 ML IV SCH (07:00)
[2018-10-16] MEDS ORDERED: ONDANSETRON PF 4 MG/2 ML VIAL. IV PRN (07:00)
[2018-10-16] MEDS ORDERED: HYDROmorphone 2 MG/ML VIAL IV PRN (07:00)
[2018-10-16] MEDS ORDERED: LIDOCAINE 1% PF 2 ML VIAL. ID PRN (07:00)
[2018-10-16] MEDS ORDERED: PROCHLORPERAZINE 10 MG/2 ML VIAL. IV PRN (07:00)
--- NOTE | 2018-10-16 07:25 | PDOC ---
Infectious Disease Note Subjective Subjective Remains intubated, FiO2 35% No fevers Tube feedings 65 ml/hr ROS ROS UNABLE TO DO Vital Sign Vital Signs Vital Signs Date Time Temp Pulse Resp B/P (MAP) Pulse Ox O2 Delivery O2 Flow Rate FiO2 10/16/18 06:00 65 22 134/58 (83) 98 Ventilator 10/16/18 04:00 99.5 99.5 Physical Exam PHYSICAL EXAM GENERAL: Orally intubated, sedated, mitts HENT: normal conj. PERRL. ETT, OGT LUNGS: Clear CV: S1 S2 irregular ABD: Obese, soft, NT, BS present : Jeffers in place EXT: 1 + edema lower extremities, bilaterally. No cyanosis. SKIN: warm without rash HR INTERN: Sedated, opens eyes to gentle stimuli RIJ (10/07) clean Labs Lab Laboratory Tests Test 10/15/18 09:00 10/15/18 11:49 10/15/18 17:12 10/15/18 20:58 O2 Saturation 95 % (92-99) Arterial Blood pH 7.38 (7.35-7.45) Arterial Blood pCO2 at Patient Temp 50 mmHg (35-46) Arterial Blood pO2 at Patient Temp 84 mmHg (65-108) Arterial Blood HCO3 29 mmol/L (21-28) Arterial Blood Base Excess 3 mmol/L (-3-3) FiO2 35 Glucose (Fingerstick) 176 mg/dL (70-99) 224 mg/dL (70-99) 190 mg/dL (70-99) Test 10/16/18 00:19 10/16/18 04:10 10/16/18 05:32 Glucose (Fingerstick) 165 mg/dL (70-99) 130 mg/dL (70-99) White Blood Count 9.7 x10^3/uL (4.0-11.0) Red Blood Count 3.93 x10^6/uL (4.30-5.70) Hemoglobin 11.6 g/dL (13.0-17.5) Hematocrit 36.3 % (39.0-53.0) Mean Corpuscular Volume 92 fL (79-100) Mean Corpuscular Hemoglobin 30 pg (25-35) Mean Corpuscular Hemoglobin Concent 32 g/dL (31-37) Red Cell Distribution Width 16.9 % (11.5-14.5) Platelet Count 171 x10^3/uL (140-400) Neutrophils (%) (Auto) 79 % (31-73) Lymphocytes (%) (Auto) 12 % (24-48) Monocytes (%) (Auto) 8 % (0-9) Eosinophils (%) (Auto) 1 % (0-3) Basophils (%) (Auto) 0 % (0-3) Neutrophils # (Auto) 7.6 x10^3uL (1.8-7.7) Lymphocytes # (Auto) 1.2 x10^3/uL (1.0-4.8) Monocytes # (Auto) 0.8 x10^3/uL (0.0-1.1) Eosinophils # (Auto) 0.1 x10^3/uL (0.0-0.7) Basophils # (Auto) 0.0 x10^3/uL (0.0-0.2) Sodium Level 146 mmol/L (136-145) Potassium Level 4.8 mmol/L (3.5-5.1) Chloride Level 110 mmol/L (98-107) Carbon Dioxide Level 33 mmol/L (21-32) Anion Gap 3 (6-14) Blood Urea Nitrogen 67 mg/dL (8-26) Creatinine 1.2 mg/dL (0.7-1.3) Estimated GFR (Cockcroft-Gault) 58.9 BUN/Creatinine Ratio 56 (6-20) Glucose Level 181 mg/dL (70-99) Calcium Level 8.1 mg/dL (8.5-10.1) Total Bilirubin 0.9 mg/dL (0.2-1.0) Aspartate Amino Transf (AST/SGOT) 13 U/L (15-37) Alanine Aminotransferase (ALT/SGPT) 44 U/L (16-63) Alkaline Phosphatase 47 U/L (46-116) Total Protein 5.1 g/dL (6.4-8.2) Albumin 2.2 g/dL (3.4-5.0) Albumin/Globulin Ratio 0.8 (1.0-1.7) Micro Microbiology 10/07/18 Blood Culture - Final, Complete NO GROWTH AFTER 5 DAYS 10/08/18 - Final, Complete 10/08/18 - Final, Complete 10/08/18 - Final, Complete 10/08/18 - Final, Complete 10/08/18 - Final, Complete 10/08/18 Gram Stain Evaluation - Final, Complete 10/08/18 Sputum Culture - Final, Complete 10/08/18 Sputum Result 1 - Final, Complete 10/07/18 Urine Culture - Final, Complete 10/07/18 Urine Culture Result 1 (ELEN) - Final, Complete 10/07/18 Antimicrobic Susceptibility - Final, Complete Objective Assessment Fever - resolved Pneumonia + mycoplasma 10/08 - on Doxy 10/09. Sputum cult - routine raheel/ Strep and Legionella - neg UTI, POA staph sap NSTEMI Lactic acidosis - improved Allergy PCN w/ hives and throat swelling; erythromycin w/ hives. Leukocytosis - on steroids - better Hypotension, now off Levophed gtt Acute encephalopathy - improving Acute respiratory failure s/p intubation ALEX - better COPD, O2 dependent Plan Plan of Care Continue meropenem (10/07) for now -wean soon Cont doxy (10/09) One time dose vancomycin, 10/07, d/c Zyvox (10/08)/levoflox Steroids Await Trach change CV line to picc JEANNE WRAY MD October 16, 2018 07:25
[2018-10-16] MEDS: IPRATRPIUM/ALBUTEROL 0.5/2.5MG 3 ML NEBU. NEB SCH ×4 (08:26→19:51)
--- NOTE | 2018-10-16 08:48 | PDOC ---
PULMONARY PROGRESS NOTES Subjective SEDATED ON AC MODE Vitals Vital Signs Date Time Temp Pulse Resp B/P (MAP) Pulse Ox O2 Delivery O2 Flow Rate FiO2 10/16/18 06:00 65 22 134/58 (83) 98 Ventilator 10/16/18 04:00 99.5 99.5 HEENT: Other (nc at perrl nose clear, orally intubated neck no thyromegaly no lad) Lungs: Clear, Other (DECREASE BS) Cardiovascular: S1, S2 Abdomen: Soft, Non-tender, Other (no mass) Extremities: Other (trace edema) Skin: Warm Labs Laboratory Tests Test 10/14/18 11:48 10/14/18 17:39 10/14/18 21:17 10/14/18 23:39 Glucose (Fingerstick) 154 mg/dL (70-99) 163 mg/dL (70-99) 157 mg/dL (70-99) 191 mg/dL (70-99) Test 10/15/18 03:30 10/15/18 05:46 10/15/18 09:00 10/15/18 11:49 White Blood Count 9.8 x10^3/uL (4.0-11.0) Red Blood Count 3.96 x10^6/uL (4.30-5.70) Hemoglobin 11.9 g/dL (13.0-17.5) Hematocrit 36.4 % (39.0-53.0) Mean Corpuscular Volume 92 fL (79-100) Mean Corpuscular Hemoglobin 30 pg (25-35) Mean Corpuscular Hemoglobin Concent 33 g/dL (31-37) Red Cell Distribution Width 16.6 % (11.5-14.5) Platelet Count 176 x10^3/uL (140-400) Neutrophils (%) (Auto) 88 % (31-73) Lymphocytes (%) (Auto) 6 % (24-48) Monocytes (%) (Auto) 6 % (0-9) Eosinophils (%) (Auto) 0 % (0-3) Basophils (%) (Auto) 0 % (0-3) Neutrophils # (Auto) 8.6 x10^3uL (1.8-7.7) Lymphocytes # (Auto) 0.6 x10^3/uL (1.0-4.8) Monocytes # (Auto) 0.5 x10^3/uL (0.0-1.1) Eosinophils # (Auto) 0.0 x10^3/uL (0.0-0.7) Basophils # (Auto) 0.0 x10^3/uL (0.0-0.2) Segmented Neutrophils % 92 % (35-66) Band Neutrophils % 2 % (0-9) Lymphocytes % 4 % (24-48) Monocytes % 2 % (0-10) Platelet Estimate Adequate (ADEQUATE) Prothrombin Time 13.0 SEC (11.7-14.0) Prothromb Time International Ratio 1.0 (0.8-1.1) Sodium Level 144 mmol/L (136-145) Potassium Level 5.4 mmol/L (3.5-5.1) Chloride Level 107 mmol/L (98-107) Carbon Dioxide Level 34 mmol/L (21-32) Anion Gap 3 (6-14) Blood Urea Nitrogen 81 mg/dL (8-26) Creatinine 1.4 mg/dL (0.7-1.3) Estimated GFR (Cockcroft-Gault) 49.3 Glucose Level 278 mg/dL (70-99) Calcium Level 8.2 mg/dL (8.5-10.1) Magnesium Level 2.1 mg/dL (1.8-2.4) Glucose (Fingerstick) 277 mg/dL (70-99) 176 mg/dL (70-99) O2 Saturation 95 % (92-99) Arterial Blood pH 7.38 (7.35-7.45) Arterial Blood pCO2 at Patient Temp 50 mmHg (35-46) Arterial Blood pO2 at Patient Temp 84 mmHg (65-108) Arterial Blood HCO3 29 mmol/L (21-28) Arterial Blood Base Excess 3 mmol/L (-3-3) FiO2 35 Test 10/15/18 17:12 10/15/18 20:58 10/16/18 00:19 10/16/18 04:10 Glucose (Fingerstick) 224 mg/dL (70-99) 190 mg/dL (70-99) 165 mg/dL (70-99) White Blood Count 9.7 x10^3/uL (4.0-11.0) Red Blood Count 3.93 x10^6/uL (4.30-5.70) Hemoglobin 11.6 g/dL (13.0-17.5) Hematocrit 36.3 % (39.0-53.0) Mean Corpuscular Volume 92 fL (79-100) Mean Corpuscular Hemoglobin 30 pg (25-35) Mean Corpuscular Hemoglobin Concent 32 g/dL (31-37) Red Cell Distribution Width 16.9 % (11.5-14.5) Platelet Count 171 x10^3/uL (140-400) Neutrophils (%) (Auto) 79 % (31-73) Lymphocytes (%) (Auto) 12 % (24-48) Monocytes (%) (Auto) 8 % (0-9) Eosinophils (%) (Auto) 1 % (0-3) Basophils (%) (Auto) 0 % (0-3) Neutrophils # (Auto) 7.6 x10^3uL (1.8-7.7) Lymphocytes # (Auto) 1.2 x10^3/uL (1.0-4.8) Monocytes # (Auto) 0.8 x10^3/uL (0.0-1.1) Eosinophils # (Auto) 0.1 x10^3/uL (0.0-0.7) Basophils # (Auto) 0.0 x10^3/uL (0.0-0.2) Sodium Level 146 mmol/L (136-145) Potassium Level 4.8 mmol/L (3.5-5.1) Chloride Level 110 mmol/L (98-107) Carbon Dioxide Level 33 mmol/L (21-32) Anion Gap 3 (6-14) Blood Urea Nitrogen 67 mg/dL (8-26) Creatinine 1.2 mg/dL (0.7-1.3) Estimated GFR (Cockcroft-Gault) 58.9 BUN/Creatinine Ratio 56 (6-20) Glucose Level 181 mg/dL (70-99) Calcium Level 8.1 mg/dL (8.5-10.1) Total Bilirubin 0.9 mg/dL (0.2-1.0) Aspartate Amino Transf (AST/SGOT) 13 U/L (15-37) Alanine Aminotransferase (ALT/SGPT) 44 U/L (16-63) Alkaline Phosphatase 47 U/L (46-116) Total Protein 5.1 g/dL (6.4-8.2) Albumin 2.2 g/dL (3.4-5.0) Albumin/Globulin Ratio 0.8 (1.0-1.7) Test 10/16/18 05:32 Glucose (Fingerstick) 130 mg/dL (70-99) Laboratory Tests Test 10/15/18 09:00 10/15/18 11:49 10/15/18 17:12 10/15/18 20:58 O2 Saturation 95 % (92-99) Arterial Blood pH 7.38 (7.35-7.45) Arterial Blood pCO2 at Patient Temp 50 mmHg (35-46) Arterial Blood pO2 at Patient Temp 84 mmHg (65-108) Arterial Blood HCO3 29 mmol/L (21-28) Arterial Blood Base Excess 3 mmol/L (-3-3) FiO2 35 Glucose (Fingerstick) 176 mg/dL (70-99) 224 mg/dL (70-99) 190 mg/dL (70-99) Test 10/16/18 00:19 10/16/18 04:10 10/16/18 05:32 Glucose (Fingerstick) 165 mg/dL (70-99) 130 mg/dL (70-99) White Blood Count 9.7 x10^3/uL (4.0-11.0) Red Blood Count 3.93 x10^6/uL (4.30-5.70) Hemoglobin 11.6 g/dL (13.0-17.5) Hematocrit 36.3 % (39.0-53.0) Mean Corpuscular Volume 92 fL (79-100) Mean Corpuscular Hemoglobin 30 pg (25-35) Mean Corpuscular Hemoglobin Concent 32 g/dL (31-37) Red Cell Distribution Width 16.9 % (11.5-14.5) Platelet Count 171 x10^3/uL (140-400) Neutrophils (%) (Auto) 79 % (31-73) Lymphocytes (%) (Auto) 12 % (24-48) Monocytes (%) (Auto) 8 % (0-9) Eosinophils (%) (Auto) 1 % (0-3) Basophils (%) (Auto) 0 % (0-3) Neutrophils # (Auto) 7.6 x10^3uL (1.8-7.7) Lymphocytes # (Auto) 1.2 x10^3/uL (1.0-4.8) Monocytes # (Auto) 0.8 x10^3/uL (0.0-1.1) Eosinophils # (Auto) 0.1 x10^3/uL (0.0-0.7) Basophils # (Auto) 0.0 x10^3/uL (0.0-0.2) Sodium Level 146 mmol/L (136-145) Potassium Level 4.8 mmol/L (3.5-5.1) Chloride Level 110 mmol/L (98-107) Carbon Dioxide Level 33 mmol/L (21-32) Anion Gap 3 (6-14) Blood Urea Nitrogen 67 mg/dL (8-26) Creatinine 1.2 mg/dL (0.7-1.3) Estimated GFR (Cockcroft-Gault) 58.9 BUN/Creatinine Ratio 56 (6-20) Glucose Level 181 mg/dL (70-99) Calcium Level 8.1 mg/dL (8.5-10.1) Total Bilirubin 0.9 mg/dL (0.2-1.0) Aspartate Amino Transf (AST/SGOT) 13 U/L (15-37) Alanine Aminotransferase (ALT/SGPT) 44 U/L (16-63) Alkaline Phosphatase 47 U/L (46-116) Total Protein 5.1 g/dL (6.4-8.2) Albumin 2.2 g/dL (3.4-5.0) Albumin/Globulin Ratio 0.8 (1.0-1.7) Medications Active Scripts Medications Dose Route/Sig Max Daily Dose Days Date Category Proair Hfa (Albuterol Sulfate) 8.5 Gm Hfa.aer.ad 1 Puff INH PRN Q6HRS PRN 10/07/18 Reported Oxazepam 30 Mg Capsule 30 Mg PO QHS 10/07/18 Reported Impression . 1. Acute on chronic hypoxemic/ hypercapnic respiratory failure, multifactorial. 2. Acute exacerbation of chronic obstructive pulmonary disease. suspect severe COPD 3. Abnormal x-ray improved. 4. Gram-negative, possible gram-positive pneumonia. 5. No history given of diabetes, hypertension or renal failure. 6. History of alcohol intake, discontinued approximately 4 years ago. 7. Possible sepsis POA, improved 8. Positive mycoplasma serology 9. EF 40%, acute sys chf Plan . TRACH TODAY WILL CONTINUE SUPPORT FOLLOW CARD CONTINUE ANTIBX PER ID DIURESIS FEVER resolved STEROIDS elevate hob DVT GI PROPH, pepcid, heparin sq ENTERAL FEEDING KRISTI DOMINGUEZ MD October 16, 2018 08:48
[2018-10-16 08:51] LABS: BASE EXCESS ABG 7 mmol/L (-3-3); HCO3 ABG 34 mmol/L (21-28); PCO2 ABG 58 mmHg (35-46); PO2 ABG 66 mmHg (65-108); SAT O2 ABG 91 % (92-99)
[2018-10-16 08:53] LABS: FIO2 ABG 35
--- NOTE | 2018-10-16 09:46 | PDOC ---
PROGRESS NOTES Chief Complaint Chief Complaint Fulminant respiratory failure End-stage COPD Clinical pneumonia MORBID OBESITY Possible sepsis uti Staphylococcus saprophyticus. Greater than 100,000 colony forming units per mL Noncompliance Pneumonia + mycoplasma 10/08 - on Doxy 10/09 hypercapnic resp failure poor prognosis azotemia wants full aggressive care be continued including tracheostomy and PEG tube Trach Tuesday. PEG Tuesday. HOLD LASIX, LISINOPRIL today Fluid bolus 500cc ns x 1 now History of Present Illness History of Present Illness Patient was seen and examined in the intensive care unit He is still on the assist control Discussed with the RN address goals of treatment failed BIPAP TRIAL 10/10 Maintain aspiration precautions failed effort for bipap trial again X3 trach planned for Monday 10/16 consult gi FOR PEG 10/17 33 min cc time Vitals Vitals Vital Signs Date Time Temp Pulse Resp B/P (MAP) Pulse Ox O2 Delivery O2 Flow Rate FiO2 10/16/18 09:00 68 22 123/77 (92) 99 Ventilator 10/16/18 04:00 99.5 99.5 Physical Exam Physical Exam GENERAL: Orally intubated, sedated, mitts HENT: normal conj. PERRL. ETT, OGT LUNGS: Clear CV: S1 S2 irregular ABD: Obese, soft, NT, BS present : Jeffers in place EXT: 1 + edema lower extremities, bilaterally. No cyanosis. 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 stimuli RIJ (10/07) clean General: No acute distress, Other Heart: Regular rate, Normal S1, Normal S2 Lungs: Clear, Other (DECREASE BS) Abdomen: Soft, No tenderness Extremities: No cyanosis, Other (trace edema) Skin: No significant lesion Labs LABS Laboratory Tests Test 10/15/18 11:49 10/15/18 17:12 10/15/18 20:58 10/16/18 00:19 Glucose (Fingerstick) 176 mg/dL (70-99) 224 mg/dL (70-99) 190 mg/dL (70-99) 165 mg/dL (70-99) Test 10/16/18 04:10 10/16/18 05:32 10/16/18 08:15 White Blood Count 9.7 x10^3/uL (4.0-11.0) Red Blood Count 3.93 x10^6/uL (4.30-5.70) Hemoglobin 11.6 g/dL (13.0-17.5) Hematocrit 36.3 % (39.0-53.0) Mean Corpuscular Volume 92 fL (79-100) Mean Corpuscular Hemoglobin 30 pg (25-35) Mean Corpuscular Hemoglobin Concent 32 g/dL (31-37) Red Cell Distribution Width 16.9 % (11.5-14.5) Platelet Count 171 x10^3/uL (140-400) Neutrophils (%) (Auto) 79 % (31-73) Lymphocytes (%) (Auto) 12 % (24-48) Monocytes (%) (Auto) 8 % (0-9) Eosinophils (%) (Auto) 1 % (0-3) Basophils (%) (Auto) 0 % (0-3) Neutrophils # (Auto) 7.6 x10^3uL (1.8-7.7) Lymphocytes # (Auto) 1.2 x10^3/uL (1.0-4.8) Monocytes # (Auto) 0.8 x10^3/uL (0.0-1.1) Eosinophils # (Auto) 0.1 x10^3/uL (0.0-0.7) Basophils # (Auto) 0.0 x10^3/uL (0.0-0.2) Sodium Level 146 mmol/L (136-145) Potassium Level 4.8 mmol/L (3.5-5.1) Chloride Level 110 mmol/L (98-107) Carbon Dioxide Level 33 mmol/L (21-32) Anion Gap 3 (6-14) Blood Urea Nitrogen 67 mg/dL (8-26) Creatinine 1.2 mg/dL (0.7-1.3) Estimated GFR (Cockcroft-Gault) 58.9 BUN/Creatinine Ratio 56 (6-20) Glucose Level 181 mg/dL (70-99) Calcium Level 8.1 mg/dL (8.5-10.1) Total Bilirubin 0.9 mg/dL (0.2-1.0) Aspartate Amino Transf (AST/SGOT) 13 U/L (15-37) Alanine Aminotransferase (ALT/SGPT) 44 U/L (16-63) Alkaline Phosphatase 47 U/L (46-116) Total Protein 5.1 g/dL (6.4-8.2) Albumin 2.2 g/dL (3.4-5.0) Albumin/Globulin Ratio 0.8 (1.0-1.7) Glucose (Fingerstick) 130 mg/dL (70-99) O2 Saturation 91 % (92-99) Arterial Blood pH 7.38 (7.35-7.45) Arterial Blood pCO2 at Patient Temp 58 mmHg (35-46) Arterial Blood pO2 at Patient Temp 66 mmHg (65-108) Arterial Blood HCO3 34 mmol/L (21-28) Arterial Blood Base Excess 7 mmol/L (-3-3) FiO2 35 Assessment and Plan Assessmemt and Plan Problems Medical Problems: (1) Acute respiratory distress Status: Acute (2) CAP (community acquired pneumonia) Status: Acute (3) CHF (congestive heart failure) Status: Acute (4) Elevated liver function tests Status: Acute (5) Elevated troponin I level Status: Acute (6) Hyperkalemia Status: Acute (7) Renal insufficiency Status: Acute (8) Sepsis Status: Acute (9) Unresponsiveness Status: Acute (10) Urinary tract infection Status: Acute Comment Review of Relevant I have reviewed the following items akbar (where applicable) has been applied. Labs Laboratory Tests Test 10/14/18 11:48 10/14/18 17:39 10/14/18 21:17 10/14/18 23:39 Glucose (Fingerstick) 154 mg/dL (70-99) 163 mg/dL (70-99) 157 mg/dL (70-99) 191 mg/dL (70-99) Test 10/15/18 03:30 10/15/18 05:46 10/15/18 09:00 10/15/18 11:49 White Blood Count 9.8 x10^3/uL (4.0-11.0) Red Blood Count 3.96 x10^6/uL (4.30-5.70) Hemoglobin 11.9 g/dL (13.0-17.5) Hematocrit 36.4 % (39.0-53.0) Mean Corpuscular Volume 92 fL (79-100) Mean Corpuscular Hemoglobin 30 pg (25-35) Mean Corpuscular Hemoglobin Concent 33 g/dL (31-37) Red Cell Distribution Width 16.6 % (11.5-14.5) Platelet Count 176 x10^3/uL (140-400) Neutrophils (%) (Auto) 88 % (31-73) Lymphocytes (%) (Auto) 6 % (24-48) Monocytes (%) (Auto) 6 % (0-9) Eosinophils (%) (Auto) 0 % (0-3) Basophils (%) (Auto) 0 % (0-3) Neutrophils # (Auto) 8.6 x10^3uL (1.8-7.7) Lymphocytes # (Auto) 0.6 x10^3/uL (1.0-4.8) Monocytes # (Auto) 0.5 x10^3/uL (0.0-1.1) Eosinophils # (Auto) 0.0 x10^3/uL (0.0-0.7) Basophils # (Auto) 0.0 x10^3/uL (0.0-0.2) Segmented Neutrophils % 92 % (35-66) Band Neutrophils % 2 % (0-9) Lymphocytes % 4 % (24-48) Monocytes % 2 % (0-10) Platelet Estimate Adequate (ADEQUATE) Prothrombin Time 13.0 SEC (11.7-14.0) Prothromb Time International Ratio 1.0 (0.8-1.1) Sodium Level 144 mmol/L (136-145) Potassium Level 5.4 mmol/L (3.5-5.1) Chloride Level 107 mmol/L (98-107) Carbon Dioxide Level 34 mmol/L (21-32) Anion Gap 3 (6-14) Blood Urea Nitrogen 81 mg/dL (8-26) Creatinine 1.4 mg/dL (0.7-1.3) Estimated GFR (Cockcroft-Gault) 49.3 Glucose Level 278 mg/dL (70-99) Calcium Level 8.2 mg/dL (8.5-10.1) Magnesium Level 2.1 mg/dL (1.8-2.4) Glucose (Fingerstick) 277 mg/dL (70-99) 176 mg/dL (70-99) O2 Saturation 95 % (92-99) Arterial Blood pH 7.38 (7.35-7.45) Arterial Blood pCO2 at Patient Temp 50 mmHg (35-46) Arterial Blood pO2 at Patient Temp 84 mmHg (65-108) Arterial Blood HCO3 29 mmol/L (21-28) Arterial Blood Base Excess 3 mmol/L (-3-3) FiO2 35 Test 10/15/18 17:12 10/15/18 20:58 10/16/18 00:19 10/16/18 04:10 Glucose (Fingerstick) 224 mg/dL (70-99) 190 mg/dL (70-99) 165 mg/dL (70-99) White Blood Count 9.7 x10^3/uL (4.0-11.0) Red Blood Count 3.93 x10^6/uL (4.30-5.70) Hemoglobin 11.6 g/dL (13.0-17.5) Hematocrit 36.3 % (39.0-53.0) Mean Corpuscular Volume 92 fL (79-100) Mean Corpuscular Hemoglobin 30 pg (25-35) Mean Corpuscular Hemoglobin Concent 32 g/dL (31-37) Red Cell Distribution Width 16.9 % (11.5-14.5) Platelet Count 171 x10^3/uL (140-400) Neutrophils (%) (Auto) 79 % (31-73) Lymphocytes (%) (Auto) 12 % (24-48) Monocytes (%) (Auto) 8 % (0-9) Eosinophils (%) (Auto) 1 % (0-3) Basophils (%) (Auto) 0 % (0-3) Neutrophils # (Auto) 7.6 x10^3uL (1.8-7.7) Lymphocytes # (Auto) 1.2 x10^3/uL (1.0-4.8) Monocytes # (Auto) 0.8 x10^3/uL (0.0-1.1) Eosinophils # (Auto) 0.1 x10^3/uL (0.0-0.7) Basophils # (Auto) 0.0 x10^3/uL (0.0-0.2) Sodium Level 146 mmol/L (136-145) Potassium Level 4.8 mmol/L (3.5-5.1) Chloride Level 110 mmol/L (98-107) Carbon Dioxide Level 33 mmol/L (21-32) Anion Gap 3 (6-14) Blood Urea Nitrogen 67 mg/dL (8-26) Creatinine 1.2 mg/dL (0.7-1.3) Estimated GFR (Cockcroft-Gault) 58.9 BUN/Creatinine Ratio 56 (6-20) Glucose Level 181 mg/dL (70-99) Calcium Level 8.1 mg/dL (8.5-10.1) Total Bilirubin 0.9 mg/dL (0.2-1.0) Aspartate Amino Transf (AST/SGOT) 13 U/L (15-37) Alanine Aminotransferase (ALT/SGPT) 44 U/L (16-63) Alkaline Phosphatase 47 U/L (46-116) Total Protein 5.1 g/dL (6.4-8.2) Albumin 2.2 g/dL (3.4-5.0) Albumin/Globulin Ratio 0.8 (1.0-1.7) Test 10/16/18 05:32 10/16/18 08:15 Glucose (Fingerstick) 130 mg/dL (70-99) O2 Saturation 91 % (92-99) Arterial Blood pH 7.38 (7.35-7.45) Arterial Blood pCO2 at Patient Temp 58 mmHg (35-46) Arterial Blood pO2 at Patient Temp 66 mmHg (65-108) Arterial Blood HCO3 34 mmol/L (21-28) Arterial Blood Base Excess 7 mmol/L (-3-3) FiO2 35 Laboratory Tests Test 10/15/18 11:49 10/15/18 17:12 10/15/18 20:58 10/16/18 00:19 Glucose (Fingerstick) 176 mg/dL (70-99) 224 mg/dL (70-99) 190 mg/dL (70-99) 165 mg/dL (70-99) Test 10/16/18 04:10 10/16/18 05:32 10/16/18 08:15 White Blood Count 9.7 x10^3/uL (4.0-11.0) Red Blood Count 3.93 x10^6/uL (4.30-5.70) Hemoglobin 11.6 g/dL (13.0-17.5) Hematocrit 36.3 % (39.0-53.0) Mean Corpuscular Volume 92 fL (79-100) Mean Corpuscular Hemoglobin 30 pg (25-35) Mean Corpuscular Hemoglobin Concent 32 g/dL (31-37) Red Cell Distribution Width 16.9 % (11.5-14.5) Platelet Count 171 x10^3/uL (140-400) Neutrophils (%) (Auto) 79 % (31-73) Lymphocytes (%) (Auto) 12 % (24-48) Monocytes (%) (Auto) 8 % (0-9) Eosinophils (%) (Auto) 1 % (0-3) Basophils (%) (Auto) 0 % (0-3) Neutrophils # (Auto) 7.6 x10^3uL (1.8-7.7) Lymphocytes # (Auto) 1.2 x10^3/uL (1.0-4.8) Monocytes # (Auto) 0.8 x10^3/uL (0.0-1.1) Eosinophils # (Auto) 0.1 x10^3/uL (0.0-0.7) Basophils # (Auto) 0.0 x10^3/uL (0.0-0.2) Sodium Level 146 mmol/L (136-145) Potassium Level 4.8 mmol/L (3.5-5.1) Chloride Level 110 mmol/L (98-107) Carbon Dioxide Level 33 mmol/L (21-32) Anion Gap 3 (6-14) Blood Urea Nitrogen 67 mg/dL (8-26) Creatinine 1.2 mg/dL (0.7-1.3) Estimated GFR (Cockcroft-Gault) 58.9 BUN/Creatinine Ratio 56 (6-20) Glucose Level 181 mg/dL (70-99) Calcium Level 8.1 mg/dL (8.5-10.1) Total Bilirubin 0.9 mg/dL (0.2-1.0) Aspartate Amino Transf (AST/SGOT) 13 U/L (15-37) Alanine Aminotransferase (ALT/SGPT) 44 U/L (16-63) Alkaline Phosphatase 47 U/L (46-116) Total Protein 5.1 g/dL (6.4-8.2) Albumin 2.2 g/dL (3.4-5.0) Albumin/Globulin Ratio 0.8 (1.0-1.7) Glucose (Fingerstick) 130 mg/dL (70-99) O2 Saturation 91 % (92-99) Arterial Blood pH 7.38 (7.35-7.45) Arterial Blood pCO2 at Patient Temp 58 mmHg (35-46) Arterial Blood pO2 at Patient Temp 66 mmHg (65-108) Arterial Blood HCO3 34 mmol/L (21-28) Arterial Blood Base Excess 7 mmol/L (-3-3) FiO2 35 Microbiology 10/07/18 Blood Culture - Final, Complete NO GROWTH AFTER 5 DAYS 10/08/18 - Final, Complete 10/08/18 - Final, Complete 10/08/18 - Final, Complete 10/08/18 - Final, Complete 10/08/18 - Final, Complete 10/08/18 Gram Stain Evaluation - Final, Complete 10/08/18 Sputum Culture - Final, Complete 10/08/18 Sputum Result 1 - Final, Complete 10/07/18 Urine Culture - Final, Complete 10/07/18 Urine Culture Result 1 (ELEN) - Final, Complete 10/07/18 Antimicrobic Susceptibility - Final, Complete Medications Current Medications Sodium Chloride 1,000 ml @ 1,000 mls/hr Q1H IV Last administered on 10/07/18at 11:27; Start 10/07/18 at 10:52; Stop 10/07/18 at 11:51; Status DC Midazolam HCl 100 ml @ 1 mls/hr 1X ONCE IV Last administered on 10/07/18at 11:20; Start 10/07/18 at 11:15; Stop 10/09/18 at 15:55; Status DC Etomidate (Amidate) 20 mg STK-MED ONCE IV ; Start 10/07/18 at 11:13; Stop 10/07/18 at 11:14; Status DC Succinylcholine Chloride (Anectine) 200 mg STK-MED ONCE .ROUTE ; Start 10/07/18 at 11:13; Stop 10/07/18 at 11:14; Status DC Etomidate (Amidate) 20 mg 1X ONCE IV Last administered on 10/07/18at 11:01; Start 10/07/18 at 11:30; Stop 10/07/18 at 11:33; Status DC Succinylcholine Chloride (Anectine) 100 mg 1X ONCE IV Last administered on 10/07/18at 11:01; Start 10/07/18 at 11:30; Stop 10/07/18 at 11:33; Status DC Albuterol Sulfate (Ventolin Neb Soln) 10 mg 1X ONCE CONT NEB ; Start 10/07/18 at 12:00; Stop 10/07/18 at 12:01; Status DC Methylprednisolone Sodium Succinate (SOLU-Medrol 125MG VIAL) 125 mg 1X ONCE IV Last administered on 10/07/18at 11:52; Start 10/07/18 at 12:00; Stop 10/07/18 at 12:01; Status DC Vancomycin HCl 250 ml @ 250 mls/hr 1X ONCE IV Last administered on 10/07/18at 12:27; Start 10/07/18 at 12:00; Stop 10/07/18 at 12:59; Status DC Levofloxacin/ Dextrose 150 ml @ 100 mls/hr 1X ONCE IV Last administered on 10/07/18at 12:28; Start 10/07/18 at 12:00; Stop 10/07/18 at 13:29; Status DC Sodium Chloride 1,000 ml @ 1,000 mls/hr 1X ONCE IV Last administered on 10/07/18at 12:57; Start 10/07/18 at 12:45; Stop 10/07/18 at 13:44; Status DC Sodium Chloride 1,000 ml @ 1,000 mls/hr 1X ONCE IV Last administered on 10/07/18at 12:58; Start 10/07/18 at 12:45; Stop 10/07/18 at 13:44; Status DC Dextrose (Dextrose 50%-Water Syringe) 25 gm 1X ONCE IV Last administered on 10/07/18at 12:59; Start 10/07/18 at 12:45; Stop 10/07/18 at 12:46; Status DC Insulin Human Regular (HumuLIN R VIAL) 10 unit 1X ONCE IV Last administered on 10/07/18at 13:00; Start 10/07/18 at 12:45; Stop 10/07/18 at 12:46; Status DC Sodium Bicarbonate (Sodium Bicarb Adult 8.4% Syr) 50 meq 1X ONCE IV Last administered on 10/07/18at 13:07; Start 10/07/18 at 12:45; Stop 10/07/18 at 12:46; Status DC Sodium Chloride 1,000 ml @ 100 mls/hr Q10H IV ; Start 10/07/18 at 16:00; Stop 10/07/18 at 16:00; Status DC Pantoprazole Sodium (PROTONIX VIAL for IV PUSH) 40 mg DAILYAC IVP Last administered on 10/08/18at 08:25; Start 10/07/18 at 13:30; Stop 10/08/18 at 09:54; Status DC Pantoprazole Sodium (PROTONIX VIAL for IV PUSH) 40 mg 1X ONCE IVP ; Start 09/27 06/17 at 12:45; Stop 10/07/18 at 12:46; Status UNV Heparin Sodium (Porcine) (Heparin Sodium) 5,000 unit Q8HRS SQ Last administered on 10/15/18at 05:47; Start 10/07/18 at 14:00 Levofloxacin/ Dextrose (Levaquin Per Pharmacy) 1 each PRN DAILY PRN MC SEE COMM ENTS; Start 10/07/18 at 12:45; Stop 10/08/18 at 07:33; Status DC Insulin Human Lispro (HumaLOG) 0-9 UNITS TIDWMEALS SQ ; Start 10/07/18 at 17:00; Stop 10/07/18 at 17:00; Status DC Dextrose (Dextrose 50%-Water Syringe) 12.5 gm PRN Q15MIN PRN IV SEE COMMENTS; Start 10/07/18 at 12:45 Albuterol/ Ipratropium (Duoneb) 3 ml RTQID NEB ; Start 10/07/18 at 16:00; Status Cancel Methylprednisolone Sodium Succinate (SOLU-Medrol 40MG VIAL) 40 mg Q8HRS IV Last administered on 10/14/18at 05:48; Start 10/07/18 at 22:00; Stop 10/14/18 at 09:29; Status DC Acetaminophen (Tylenol) 650 mg PRN Q6HRS PRN PEG MILD PAIN / TEMP Last administered on 10/08/18at 08:25; Start 10/07/18 at 12:45 Morphine Sulfate (Morphine Sulfate) 2 mg PRN Q2HR PRN IV PAIN, 1ST CHOICE Last administered on 10/15/18at 16:36; Start 10/07/18 at 12:45 Ondansetron HCl (Zofran) 4 mg PRN Q6HRS PRN IV NAUSEA/VOMITING; Start 10/07/18 at 12:45 Norepinephrine Bitartrate 250 ml @ 1.875 mls/ hr CONT PRN IV SEE I/O RECORD Last administered on 10/07/18at 14:01; Start 10/07/18 at 14:00 Sodium Chloride 1,000 ml @ 150 mls/hr Q6H40M IV Last administered on 10/08/18at 15:09; Start 10/07/18 at 14:00; Stop 10/08/18 at 13:59; Status DC Calcium Gluconate (Calcium Gluconate) 1,000 mg 1X ONCE IVP ; Start 10/07/18 at 13:30; Stop 10/07/18 at 13:31; Status Cancel Sodium Polystyrene Sulfonate (Kayexalate) 15 gm 1X ONCE PO Last administered on 10/07/18at 14:10; Start 10/07/18 at 13:30; Stop 10/07/18 at 13:31; Status DC Pantoprazole Sodium (PROTONIX VIAL for IV PUSH) 40 mg STK-MED ONCE IVP ; Start 10/07/18 at 12:52; Stop 10/07/18 at 12:55; Status DC Levofloxacin/ Dextrose 150 ml @ 100 mls/hr Q48H IV ; Start 10/09/18 at 12:00; Stop 10/09/18 at 12:00; Status DC Calcium Gluconate 1000 mg/Sodium Chloride 110 ml @ 220 mls/hr 1X ONCE IV Last administered on 10/07/18at 14:23; Start 10/07/18 at 15:00; Stop 10/07/18 at 15:29; Status DC Sodium Chloride 1,000 ml @ 1,000 mls/hr 1X ONCE IV Last administered on 10/07/18at 14:50; Start 10/07/18 at 15:00; Stop 10/07/18 at 15:59; Status DC Sodium Chloride 1,000 ml @ 999 mls/hr 1X ONCE IV ; Start 10/07/18 at 15:00; Stop 10/07/18 at 16:00; Status DC Albuterol Sulfate (Ventolin Neb Soln) 2.5 mg PRN Q2HR PRN NEB DYSPNEA; Start 10/07/18 at 15:00 Albuterol/ Ipratropium (Duoneb) 3 ml RTQID NEB Last administered on 10/16/18at 08:26; Start 10/07/18 at 16:00 Insulin Human Lispro (HumaLOG) 0-9 UNITS Q6HRS SQ Last administered on 10/15/18 17:47; Start 10/07/18 at 18:00 Meropenem 500 mg/ Sodium Chloride 50 ml @ 100 mls/hr Q8HRS IV Last administer ed on 10/16/18at 05:33; Start 10/07/18 at 17:00 Midazolam HCl 100 ml @ 5 mls/hr CONT PRN IV SEE I/O RECORD Last administered on 10/16/18at 03:20; Start 10/08/18 at 04:15 Lactobacillus Rhamnosus (Culturelle) 1 cap BID PO ; Start 10/08/18 at 09:00; Stop 10/09/18 at 15:58; Status DC Famotidine (Pepcid Vial) 20 mg QHS IVP Last administered on 10/15/18at 20:55; Start 10/08/18 at 21:00 Linezolid/Dextrose 300 ml @ 300 mls/hr Q12HR IV Last administered on 10/09/18at 20:58; Start 10/08/18 at 11:30; Stop 10/10/18 at 07:24; Status DC Doxycycline Hyclate 100 mg/ Dextrose 100 ml @ 50 mls/hr Q12HR IV Last administered on 10/15/18at 20:56; Start 10/09/18 at 13:00 Aspirin (Ecotrin) 81 mg [id number] PO Last administered on 10/15/18 08:29; Start 10/10/18 at 08:00 Furosemide (Lasix) 40 mg 1X ONCE IVP Last administered on 10/11/18at 08:36; Start 10/11/18 at 09:00; Stop 10/11/18 at 09:01; Status DC Lisinopril (Prinivil) 10 mg DAILY PO Last administered on 10/14/18 08:03; Start 10/11/18 at 14:00; Stop 10/15/18 at 09:46; Status DC Furosemide (Lasix) 40 mg DAILY IVP Last administered on 10/14/18at 08:04; Start 10/12/18 at 12:30 Amlodipine Besylate (Norvasc) 5 mg DAILY PO Last administered on 10/14/18at 08:04; Start 10/12/18 at 12:30 Hydralazine HCl (Apresoline Inj) 10 mg PRN Q4HRS PRN IVP ELEVATED BP, SEE COMMENTS; Start 10/12/18 at 11:45 Insulin Glargine (Lantus) 10 units QHS SQ Last administered on 10/15/18at 20:59; Start 10/13/18 at 21:00 Ondansetron HCl (Zofran) 4 mg PRN Q6HRS PRN IV NAUSEA/VOMITING; Start 10/16/18 at 07:00; Stop 10/17/18 at 06:59 Fentanyl Citrate (Fentanyl 2ml Vial) 25 mcg PRN Q5MIN PRN IV MILD PAIN 1-3; Start 10/16/18 at 07:00; Stop 10/17/18 at 06:59 Fentanyl Citrate (Fentanyl 2ml Vial) 50 mcg PRN Q5MIN PRN IV MODERATE TO SEVERE PAIN; Start 10/16/18 at 07:00; Stop 10/17/18 at 06:59 Morphine Sulfate (Morphine Sulfate) 1 mg PRN Q10MIN PRN IV SEVERE PAIN 7-10; Start 10/16/18 at 07:00; Stop 10/17/18 at 06:59 Ringer's Solution 1,000 ml @ 30 mls/hr Q24H IV ; Start 10/16/18 at 07:00; Stop 10/16/18 at 18:59 Lidocaine HCl (Xylocaine-Mpf 1% 2ml Vial) 2 ml PRN 1X PRN ID PRIOR TO IV START; Start 10/16/18 at 07:00; Stop 10/17/18 at 06:59 Hydromorphone HCl (Dilaudid) 0.5 mg PRN Q10MIN PRN IV SEV PAIN, Second choice; Start 10/16/18 at 07:00; Stop 10/17/18 at 06:59 Prochlorperazine Edisylate (Compazine) 5 mg PACU PRN PRN IV NAUSEA, MRX1; Start 10/16/18 at 07:00; Stop 10/17/18 at 06:59 Fentanyl Citrate (Fentanyl 2ml Vial) 50 mcg PRN Q2HR PRN IV PAIN, 2ND CHOICE Last administered on 10/16/18at 01:03; Start 10/14/18 at 00:30 Methylprednisolone Sodium Succinate (SOLU-Medrol 40MG VIAL) 40 mg Q12HR IV Last administered on 10/15/18at 08:28; Start 10/14/18 at 21:00; Stop 10/15/18 at 09:16; Status DC Methylprednisolone Sodium Succinate (SOLU-Medrol 40MG VIAL) 40 mg DAILY IV ; Start 10/16/18 at 09:00 Sodium Chloride 500 ml @ 500 mls/hr 1X ONCE IV Last administered on 10/15/18at 09:59; Start 10/15/18 at 09:30; Stop 10/15/18 at 10:29; Status DC Sodium Chloride 1,000 ml @ 75 mls/hr [id number] IV Last administered on 10/16/18at 03:13; Start 10/15/18 at 11:45 Bisacodyl (Dulcolax Supp) 10 mg PRN DAILY PRN [place] CONSTIPATION Last administered on 10/15/18at 13:43; Start 10/15/18 at 13:30 Active Scripts Active Reported Proair Hfa (Albuterol Sulfate) 8.5 Gm Hfa.aer.ad 1 Puff INH PRN Q6HRS PRN Oxazepam 30 Mg Capsule 30 Mg PO QHS Vitals/I & O Vital Sign - Last 24 Hours 10/15/18 10/15/18 10/15/18 10/15/18 10:00 11:00 11:21 12:00 Temp 97.6 97.6 Pulse 58 56 52 Resp 22 22 22 B/P (MAP) 95/40 (58) 97/46 (63) 124/40 (68) Pulse Ox 99 96 88 99 O2 Delivery Ventilator Ventilator Ventilator Ventilator 10/15/18 10/15/18 10/15/18 10/15/18 12:00 12:02 13:00 14:00 Pulse 52 50 Resp 22 22 22 B/P (MAP) 87/44 (58) 86/43 (57) Pulse Ox 98 100 100 O2 Delivery Mechanical Ventilator Ventilator Ventilator Ventilator 10/15/18 10/15/18 10/15/18 10/15/18 15:00 16:00 16:00 16:04 Pulse 56 62 Resp 22 23 B/P (MAP) 129/52 (77) 114/48 (70) Pulse Ox 100 100 99 O2 Delivery Ventilator Mechanical Ventilator Ventilator Ventilator 10/15/18 10/15/18 10/15/1810/15/19 16:36 17:00 17:12 18:00 Pulse 63 72 Resp 22 22 22 22 B/P (MAP) 129/67 (87) 133/84 (100) Pulse Ox 100 100 100 99 O2 Delivery Ventilator Ventilator Ventilator Ventilator 10/15/18 10/15/18 10/15/18 10/15/18 18:04 19:00 19:24 19:45 Pulse 64 Resp 22 23 B/P (MAP) 114/46 (68) Pulse Ox 99 100 100 99 O2 Delivery Ventilator Ventilator Ventilator Ventilator 10/15/18 10/15/18 10/15/18 10/15/18 20:00 20:00 21:00 22:00 Temp 99.3 99.3 Pulse 60 58 55 Resp 22 22 22 B/P (MAP) 87/40 (56) 97/41 (59) 93/43 (60) Pulse Ox 100 100 100 O2 Delivery Ventilator Mechanical Ventilator Ventilator Ventilator 10/15/18 10/15/18 10/15/18 10/16/18 22:59 23:00 23:59 00:00 Temp 99.3 99.3 Pulse 49 64 Resp 22 22 B/P (MAP) 93/43 (60) 142/57 (85) Pulse Ox 100 100 100 O2 Delivery Ventilator Ventilator Mechanical Ventilator Ventilator 10/16/18 10/16/18 10/16/18 10/16/18 01:00 01:03 01:33 02:00 Pulse 59 60 Resp 22 23 22 22 B/P (MAP) 126/63 (84) 126/63 (84) Pulse Ox 100 100 100 100 O2 Delivery Ventilator Ventilator Ventilator Ventilator 10/16/18 10/16/18 10/16/18 10/16/18 02:23 03:00 04:00 04:00 Temp 99.5 99.5 Pulse 58 62 Resp 22 23 B/P (MAP) 155/67 (96) 146/72 (96) Pulse Ox 100 100 100 O2 Delivery Ventilator Ventilator Mechanical Ventilator Ventilator 10/16/18 10/16/18 10/16/18 10/16/18 04:28 05:00 05:37 06:00 Pulse 66 65 Resp 23 22 B/P (MAP) 139/89 (106) 134/58 (83) Pulse Ox 100 100 100 98 O2 Delivery Ventilator Ventilator Ventilator Ventilator 10/16/18 10/16/1810/16/19 08:00 08:15 09:00 Pulse 66 68 Resp 22 22 B/P (MAP) 164/73 (103) 123/77 (92) Pulse Ox 97 100 99 O2 Delivery Ventilator Ventilator Ventilator Intake and Output 10/15/18 10/15/18 10/16/18 15:00 23:00 07:00 Intake Total 900 ml 2172 ml 1317 ml Output Total 780 ml 745 ml 785 ml Balance 120 ml 1427 ml 532 ml SANDRA OROURKE MD October 16, 2018 09:46
--- NOTE | 2018-10-16 10:05 | PDOC ---
SUBJECTIVE ROS Stable, Trach later today OBJECTIVE Vital Signs Vital Signs Date Time Temp Pulse Resp B/P (MAP) Pulse Ox O2 Delivery O2 Flow Rate FiO2 10/16/18 09:00 68 22 123/77 (92) 99 Ventilator 10/16/18 04:00 99.5 99.5 I & 0 Intake and Output 10/16/18 07:00 Intake Total 4389 ml Output Total 2310 ml Balance 2079 ml IV Total 2186 ml Tube Feeding 1803 ml Other 400 ml Output Urine Total 2310 ml Gastric Drainage Total 0 ml # Bowel Movements 1 PHYSICAL EXAM Physical Exam GENERAL: NAD HENT: ETT, OGT LUNGS: Clear CV: S1 S2 irregular ABD: Obese, soft, NT, BS present : Jeffers in place EXT: 1 + edema lower extremities, bilaterally. 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 RIJ (10/07) clean DIAGNOSIS/ASSESSMENT Assessment & Plan ALEX - resolved Good UOP E-Lytes and acid base stable CKD stage 3 - Pneumonia + mycoplasma UTI - On abx NSTEMI Hypotension off Levophed gtt BP stable Acute encephalopathy - improving Acute respiratory failure s/p intubation For Trach today COPD, O2 dependent COMMENT/RELEVANT DATA Meds Current Medications Medications (Trade) Dose Ordered Sig/Eric Start Time Stop Time Status Last Admin Dose Admin Acetaminophen (Tylenol) 650 mg PRN Q6HRS PRN 10/07/18 12:45 10/08/18 08:25 650 MG Albuterol Sulfate (Ventolin Neb Soln) 2.5 mg PRN Q2HR PRN 10/07/18 15:00 Albuterol/ Ipratropium (Duoneb) 3 ml RTQID 10/07/18 16:00 10/16/18 08:26 3 ML Amlodipine Besylate (Norvasc) 5 mg DAILY 10/12/18 12:30 10/14/18 08:04 5 MG Aspirin (Ecotrin) 81 mg [id number] 10/10/18 08:00 10/15/18 08:29 81 MG Bisacodyl (Dulcolax Supp) 10 mg PRN DAILY PRN 10/15/18 13:30 10/15/18 13:43 10 MG Calcium Gluconate (Calcium Gluconate) 1,000 mg 1X ONCE 10/07/18 13:30 10/07/18 13:31 Cancel Calcium Gluconate 1000 mg/Sodium Chloride 110 ml @ 220 mls/hr 1X ONCE 10/07/18 15:00 10/07/18 15:29 DC 10/07/18 14:23 220 MLS/HR Dextrose (Dextrose 50%-Water Syringe) 12.5 gm PRN Q15MIN PRN 10/07/18 12:45 Doxycycline Hyclate 100 mg/ Dextrose 100 ml @ 50 mls/hr Q12HR 10/09/18 13:00 10/15/18 20:56 50 MLS/HR Etomidate (Amidate) 20 mg 1X ONCE 10/07/18 11:30 10/07/18 11:33 DC 10/07/18 11:01 20 MG Famotidine (Pepcid Vial) 20 mg QHS 10/08/18 21:00 10/15/18 20:55 20 MG Fentanyl Citrate (Fentanyl 2ml Vial) 50 mcg PRN Q2HR PRN 10/14/18 00:30 10/16/18 01:03 50 MCG Furosemide (Lasix) 40 mg DAILY 10/12/18 12:30 10/14/18 08:04 40 MG Heparin Sodium (Porcine) (Heparin Sodium) 5,000 unit Q8HRS 10/07/18 14:00 10/15/18 05:47 5,000 UNIT Hydralazine HCl (Apresoline Inj) 10 mg PRN Q4HRS PRN 10/12/18 11:45 Hydromorphone HCl (Dilaudid) 0.5 mg PRN Q10MIN PRN 10/16/18 07:00 10/17/18 06:59 Insulin Glargine (Lantus) 10 units QHS 10/13/18 21:00 10/15/18 20:59 10 UNITS Insulin Human Lispro (HumaLOG) 0-9 UNITS Q6HRS 10/07/18 18:00 10/15/18 17:47 5 UNITS Insulin Human Regular (HumuLIN R VIAL) 10 unit 1X ONCE 10/07/18 12:45 10/07/18 12:46 DC 10/07/18 13:00 10 UNIT Lactobacillus Rhamnosus (Culturelle) 1 cap BID 10/08/18 09:00 10/09/18 15:58 DC Levofloxacin/ Dextrose 150 ml @ 100 mls/hr Q48H 10/09/18 12:00 10/09/18 12:00 DC Levofloxacin/ Dextrose (Levaquin Per Pharmacy) 1 each PRN DAILY PRN 10/07/18 12:45 10/08/18 07:33 DC Lidocaine HCl (Xylocaine-Mpf 1% 2ml Vial) 2 ml PRN 1X PRN 10/16/18 07:00 10/17/18 06:59 Linezolid/Dextrose 300 ml @ 300 mls/hr Q12HR 10/08/18 11:30 10/10/18 07:24 DC 10/09/18 20:58 300 MLS/HR Lisinopril (Prinivil) 10 mg DAILY 10/11/18 14:00 10/15/18 09:46 DC 10/14/18 08:03 10 MG Meropenem 500 mg/ Sodium Chloride 50 ml @ 100 mls/hr Q8HRS 10/07/18 17:00 10/16/18 05:33 100 MLS/HR Methylprednisolone Sodium Succinate (SOLU-Medrol 40MG VIAL) 40 mg DAILY 10/16/18 09:00 Methylprednisolone Sodium Succinate (SOLU-Medrol 125MG VIAL) 125 mg 1X ONCE 10/07/18 12:00 10/07/18 12:01 DC 10/07/18 11:52 125 MG Midazolam HCl 100 ml @ 5 mls/hr CONT PRN 10/08/18 04:15 10/16/18 03:20 8 MLS/HR Morphine Sulfate (Morphine Sulfate) 1 mg PRN Q10MIN PRN 10/16/18 07:00 10/17/18 06:59 Norepinephrine Bitartrate 250 ml @ 1.875 mls/ hr CONT PRN 10/07/18 14:00 10/07/18 14:01 13.125 MLS/HR Ondansetron HCl (Zofran) 4 mg PRN Q6HRS PRN 10/16/18 07:00 10/17/18 06:59 Pantoprazole Sodium (PROTONIX VIAL for IV PUSH) 40 mg STK-MED ONCE 10/07/18 12:52 10/07/18 12:55 DC Prochlorperazine Edisylate (Compazine) 5 mg PACU PRN PRN 10/16/18 07:00 10/17/18 06:59 Ringer's Solution 1,000 ml @ 30 mls/hr Q24H 10/16/18 07:00 10/16/18 18:59 Sodium Polystyrene Sulfonate (Kayexalate) 15 gm 1X ONCE 10/07/18 13:30 10/07/18 13:31 DC 10/07/18 14:10 15 GM Sodium Bicarbonate (Sodium Bicarb Adult 8.4% Syr) 50 meq 1X ONCE 10/07/18 12:45 10/07/18 12:46 DC 10/07/18 13:07 50 MEQ Sodium Chloride 1,000 ml @ 75 mls/hr [id number] 10/15/18 11:45 10/16/18 03:13 75 MLS/HR Succinylcholine Chloride (Anectine) 100 mg 1X ONCE 10/07/18 11:30 10/07/18 11:33 DC 10/07/18 11:01 100 MG Vancomycin HCl 250 ml @ 250 mls/hr 1X ONCE 10/07/18 12:00 10/07/18 12:59 DC 10/07/18 12:27 250 MLS/HR Lab Laboratory Tests Test 10/15/18 11:49 10/15/18 17:12 10/15/18 20:58 10/16/18 00:19 Glucose (Fingerstick) 176 mg/dL (70-99) 224 mg/dL (70-99) 190 mg/dL (70-99) 165 mg/dL (70-99) Test 10/16/18 04:10 10/16/18 05:32 10/16/18 08:15 White Blood Count 9.7 x10^3/uL (4.0-11.0) Red Blood Count 3.93 x10^6/uL (4.30-5.70) Hemoglobin 11.6 g/dL (13.0-17.5) Hematocrit 36.3 % (39.0-53.0) Mean Corpuscular Volume 92 fL (79-100) Mean Corpuscular Hemoglobin 30 pg (25-35) Mean Corpuscular Hemoglobin Concent 32 g/dL (31-37) Red Cell Distribution Width 16.9 % (11.5-14.5) Platelet Count 171 x10^3/uL (140-400) Neutrophils (%) (Auto) 79 % (31-73) Lymphocytes (%) (Auto) 12 % (24-48) Monocytes (%) (Auto) 8 % (0-9) Eosinophils (%) (Auto) 1 % (0-3) Basophils (%) (Auto) 0 % (0-3) Neutrophils # (Auto) 7.6 x10^3uL (1.8-7.7) Lymphocytes # (Auto) 1.2 x10^3/uL (1.0-4.8) Monocytes # (Auto) 0.8 x10^3/uL (0.0-1.1) Eosinophils # (Auto) 0.1 x10^3/uL (0.0-0.7) Basophils # (Auto) 0.0 x10^3/uL (0.0-0.2) Sodium Level 146 mmol/L (136-145) Potassium Level 4.8 mmol/L (3.5-5.1) Chloride Level 110 mmol/L (98-107) Carbon Dioxide Level 33 mmol/L (21-32) Anion Gap 3 (6-14) Blood Urea Nitrogen 67 mg/dL (8-26) Creatinine 1.2 mg/dL (0.7-1.3) Estimated GFR (Cockcroft-Gault) 58.9 BUN/Creatinine Ratio 56 (6-20) Glucose Level 181 mg/dL (70-99) Calcium Level 8.1 mg/dL (8.5-10.1) Total Bilirubin 0.9 mg/dL (0.2-1.0) Aspartate Amino Transf (AST/SGOT) 13 U/L (15-37) Alanine Aminotransferase (ALT/SGPT) 44 U/L (16-63) Alkaline Phosphatase 47 U/L (46-116) Total Protein 5.1 g/dL (6.4-8.2) Albumin 2.2 g/dL (3.4-5.0) Albumin/Globulin Ratio 0.8 (1.0-1.7) Glucose (Fingerstick) 130 mg/dL (70-99) O2 Saturation 91 % (92-99) Arterial Blood pH 7.38 (7.35-7.45) Arterial Blood pCO2 at Patient Temp 58 mmHg (35-46) Arterial Blood pO2 at Patient Temp 66 mmHg (65-108) Arterial Blood HCO3 34 mmol/L (21-28) Arterial Blood Base Excess 7 mmol/L (-3-3) FiO2 35 Results All relevant outside records, renal labs, imaging studies, telemetry/EKG's were reviewed. KELLY ANNE MD October 16, 2018 10:05
[2018-10-16] MEDS: DOXYCYCLINE HYCLATE 100 MG in IV DEXTROSE 5% 100ML 100 ML IV SCH ×2 (10:13→21:24)
[2018-10-16] MEDS: amLODIPine BESYLATE 5 MG TABLET PO SCH (10:15)
[2018-10-16] MEDS: ASPIRIN ENTERIC COATED 81 MG TABLET.DR. PO SCH (10:15)
[2018-10-16] MEDS: FUROSEMIDE 40 MG/4 ML VIAL. IVP SCH (10:18)
[2018-10-16] MEDS: methylPREDNISolone SOD SUCC PF 40 MG/ML VIAL. IV SCH (10:19)
--- NOTE | 2018-10-16 12:34 | PDOC ---
CARDIO Progress Notes Date and Time Date of Service 10/16/18 Time of Evaluation 1215 Subjective Subjective: No Chest Pain, Other (intubated) Vitals Vitals Vital Signs Date Time Temp Pulse Resp B/P (MAP) Pulse Ox O2 Delivery O2 Flow Rate FiO2 10/16/18 12:00 Mechanical Ventilator 10/16/18 11:35 97 10/16/18 11:00 66 22 109/49 (69) 10/16/18 04:00 99.5 99.5 Weight Weight [ ] Input and Output Intake and Output Intake and Output 10/16/18 06:59 Intake Total 4389 ml Output Total 2435 ml Balance 1954 ml IV Total 2186 ml Tube Feeding 1803 ml Other 400 ml Output Urine Total 2435 ml Gastric Drainage Total 0 ml # Bowel Movements 1 Laboratory Labs Laboratory Tests Test 10/15/18 17:12 10/15/18 20:58 10/16/18 00:19 10/16/18 04:10 Glucose (Fingerstick) 224 mg/dL (70-99) 190 mg/dL (70-99) 165 mg/dL (70-99) White Blood Count 9.7 x10^3/uL (4.0-11.0) Red Blood Count 3.93 x10^6/uL (4.30-5.70) Hemoglobin 11.6 g/dL (13.0-17.5) Hematocrit 36.3 % (39.0-53.0) Mean Corpuscular Volume 92 fL (79-100) Mean Corpuscular Hemoglobin 30 pg (25-35) Mean Corpuscular Hemoglobin Concent 32 g/dL (31-37) Red Cell Distribution Width 16.9 % (11.5-14.5) Platelet Count 171 x10^3/uL (140-400) Neutrophils (%) (Auto) 79 % (31-73) Lymphocytes (%) (Auto) 12 % (24-48) Monocytes (%) (Auto) 8 % (0-9) Eosinophils (%) (Auto) 1 % (0-3) Basophils (%) (Auto) 0 % (0-3) Neutrophils # (Auto) 7.6 x10^3uL (1.8-7.7) Lymphocytes # (Auto) 1.2 x10^3/uL (1.0-4.8) Monocytes # (Auto) 0.8 x10^3/uL (0.0-1.1) Eosinophils # (Auto) 0.1 x10^3/uL (0.0-0.7) Basophils # (Auto) 0.0 x10^3/uL (0.0-0.2) Sodium Level 146 mmol/L (136-145) Potassium Level 4.8 mmol/L (3.5-5.1) Chloride Level 110 mmol/L (98-107) Carbon Dioxide Level 33 mmol/L (21-32) Anion Gap 3 (6-14) Blood Urea Nitrogen 67 mg/dL (8-26) Creatinine 1.2 mg/dL (0.7-1.3) Estimated GFR (Cockcroft-Gault) 58.9 BUN/Creatinine Ratio 56 (6-20) Glucose Level 181 mg/dL (70-99) Calcium Level 8.1 mg/dL (8.5-10.1) Total Bilirubin 0.9 mg/dL (0.2-1.0) Aspartate Amino Transf (AST/SGOT) 13 U/L (15-37) Alanine Aminotransferase (ALT/SGPT) 44 U/L (16-63) Alkaline Phosphatase 47 U/L (46-116) Total Protein 5.1 g/dL (6.4-8.2) Albumin 2.2 g/dL (3.4-5.0) Albumin/Globulin Ratio 0.8 (1.0-1.7) Test 10/16/18 05:32 10/16/18 08:15 Glucose (Fingerstick) 130 mg/dL (70-99) O2 Saturation 91 % (92-99) Arterial Blood pH 7.38 (7.35-7.45) Arterial Blood pCO2 at Patient Temp 58 mmHg (35-46) Arterial Blood pO2 at Patient Temp 66 mmHg (65-108) Arterial Blood HCO3 34 mmol/L (21-28) Arterial Blood Base Excess 7 mmol/L (-3-3) FiO2 35 Microbiology Micro Microbiology 10/07/18 Blood Culture - Final, Complete NO GROWTH AFTER 5 DAYS 10/08/18 - Final, Complete 10/08/18 - Final, Complete 10/08/18 - Final, Complete 10/08/18 - Final, Complete 10/08/18 - Final, Complete 10/08/18 Gram Stain Evaluation - Final, Complete 10/08/18 Sputum Culture - Final, Complete 10/08/18 Sputum Result 1 - Final, Complete 10/07/18 Urine Culture - Final, Complete 10/07/18 Urine Culture Result 1 (ELEN) - Final, Complete 10/07/18 Antimicrobic Susceptibility - Final, Complete Physical Exam HEENT: Neck Supple W Full Motion Chest: Symmetric LUNGS: Other (mechanical vent, basilar crackles) Heart: S1S2, RRR (SR), other (distant heart tones) Abdomen: Soft N/T, Other (soft) Extremities: Other (1-2+ bilateral LE pitting edema) Neurology: alert, follow commands Assessment Assessment 1. Acute respiratory failure with AECOPD, CHF, PNA; s/p intubation. Failed multiple trails. Trach today. PEG tomorrow 2. NSTEMI; peak 0.8. Most probably type II, demand ischemia 3. Acute on chronic systolic HF; LVEF 40% with global hypokinesis. Diuresis with monitoring of labs 4. Leukocytosis, lactic acidosis, ? sepsis. 5. PNA 6. ALEX; better 7. Cardiomyopathy; echo showed LVEF 40% with global hypokinesis 8. Hypertension; better controlled JESSICA CORREIA APRN October 16, 2018 12:34
[2018-10-16] MEDS ORDERED: MIDAZOLAM HCL/PF 2 MG/2 ML VIAL. ONE (12:36)
[2018-10-16] MEDS ORDERED: ROCURONIUM 50 MG/5 ML VIAL. ONE (12:36)
[2018-10-16] MEDS ORDERED: fentaNYL PF VIAL 100 MCG/2 ML VIAL ONE (12:36)
--- NOTE | 2018-10-16 12:42 | PDOC ---
G I PROGRESS NOTE Subjective Sedated on ventilator. Objective No reports of any GI issues. Tolerating TF. For trach today. Physical Exam Lungs clear anteriorly. RRR Abdomen soft, protuberant. Review of Relevant I have reviewed the following items akbar (where applicable) has been applied. Labs Laboratory Tests Test 10/14/18 17:39 10/14/18 21:17 10/14/18 23:39 10/15/18 03:30 Glucose (Fingerstick) 163 mg/dL (70-99) 157 mg/dL (70-99) 191 mg/dL (70-99) White Blood Count 9.8 x10^3/uL (4.0-11.0) Red Blood Count 3.96 x10^6/uL (4.30-5.70) Hemoglobin 11.9 g/dL (13.0-17.5) Hematocrit 36.4 % (39.0-53.0) Mean Corpuscular Volume 92 fL (79-100) Mean Corpuscular Hemoglobin 30 pg (25-35) Mean Corpuscular Hemoglobin Concent 33 g/dL (31-37) Red Cell Distribution Width 16.6 % (11.5-14.5) Platelet Count 176 x10^3/uL (140-400) Neutrophils (%) (Auto) 88 % (31-73) Lymphocytes (%) (Auto) 6 % (24-48) Monocytes (%) (Auto) 6 % (0-9) Eosinophils (%) (Auto) 0 % (0-3) Basophils (%) (Auto) 0 % (0-3) Neutrophils # (Auto) 8.6 x10^3uL (1.8-7.7) Lymphocytes # (Auto) 0.6 x10^3/uL (1.0-4.8) Monocytes # (Auto) 0.5 x10^3/uL (0.0-1.1) Eosinophils # (Auto) 0.0 x10^3/uL (0.0-0.7) Basophils # (Auto) 0.0 x10^3/uL (0.0-0.2) Segmented Neutrophils % 92 % (35-66) Band Neutrophils % 2 % (0-9) Lymphocytes % 4 % (24-48) Monocytes % 2 % (0-10) Platelet Estimate Adequate (ADEQUATE) Prothrombin Time 13.0 SEC (11.7-14.0) Prothromb Time International Ratio 1.0 (0.8-1.1) Sodium Level 144 mmol/L (136-145) Potassium Level 5.4 mmol/L (3.5-5.1) Chloride Level 107 mmol/L (98-107) Carbon Dioxide Level 34 mmol/L (21-32) Anion Gap 3 (6-14) Blood Urea Nitrogen 81 mg/dL (8-26) Creatinine 1.4 mg/dL (0.7-1.3) Estimated GFR (Cockcroft-Gault) 49.3 Glucose Level 278 mg/dL (70-99) Calcium Level 8.2 mg/dL (8.5-10.1) Magnesium Level 2.1 mg/dL (1.8-2.4) Test 10/15/18 05:46 10/15/18 09:00 10/15/18 11:49 10/15/18 17:12 Glucose (Fingerstick) 277 mg/dL (70-99) 176 mg/dL (70-99) 224 mg/dL (70-99) O2 Saturation 95 % (92-99) Arterial Blood pH 7.38 (7.35-7.45) Arterial Blood pCO2 at Patient Temp 50 mmHg (35-46) Arterial Blood pO2 at Patient Temp 84 mmHg (65-108) Arterial Blood HCO3 29 mmol/L (21-28) Arterial Blood Base Excess 3 mmol/L (-3-3) FiO2 35 Test 10/15/18 20:58 10/16/18 00:19 10/16/18 04:10 10/16/18 05:32 Glucose (Fingerstick) 190 mg/dL (70-99) 165 mg/dL (70-99) 130 mg/dL (70-99) White Blood Count 9.7 x10^3/uL (4.0-11.0) Red Blood Count 3.93 x10^6/uL (4.30-5.70) Hemoglobin 11.6 g/dL (13.0-17.5) Hematocrit 36.3 % (39.0-53.0) Mean Corpuscular Volume 92 fL (79-100) Mean Corpuscular Hemoglobin 30 pg (25-35) Mean Corpuscular Hemoglobin Concent 32 g/dL (31-37) Red Cell Distribution Width 16.9 % (11.5-14.5) Platelet Count 171 x10^3/uL (140-400) Neutrophils (%) (Auto) 79 % (31-73) Lymphocytes (%) (Auto) 12 % (24-48) Monocytes (%) (Auto) 8 % (0-9) Eosinophils (%) (Auto) 1 % (0-3) Basophils (%) (Auto) 0 % (0-3) Neutrophils # (Auto) 7.6 x10^3uL (1.8-7.7) Lymphocytes # (Auto) 1.2 x10^3/uL (1.0-4.8) Monocytes # (Auto) 0.8 x10^3/uL (0.0-1.1) Eosinophils # (Auto) 0.1 x10^3/uL (0.0-0.7) Basophils # (Auto) 0.0 x10^3/uL (0.0-0.2) Sodium Level 146 mmol/L (136-145) Potassium Level 4.8 mmol/L (3.5-5.1) Chloride Level 110 mmol/L (98-107) Carbon Dioxide Level 33 mmol/L (21-32) Anion Gap 3 (6-14) Blood Urea Nitrogen 67 mg/dL (8-26) Creatinine 1.2 mg/dL (0.7-1.3) Estimated GFR (Cockcroft-Gault) 58.9 BUN/Creatinine Ratio 56 (6-20) Glucose Level 181 mg/dL (70-99) Calcium Level 8.1 mg/dL (8.5-10.1) Total Bilirubin 0.9 mg/dL (0.2-1.0) Aspartate Amino Transf (AST/SGOT) 13 U/L (15-37) Alanine Aminotransferase (ALT/SGPT) 44 U/L (16-63) Alkaline Phosphatase 47 U/L (46-116) Total Protein 5.1 g/dL (6.4-8.2) Albumin 2.2 g/dL (3.4-5.0) Albumin/Globulin Ratio 0.8 (1.0-1.7) Test 10/16/18 08:15 10/16/18 12:12 O2 Saturation 91 % (92-99) Arterial Blood pH 7.38 (7.35-7.45) Arterial Blood pCO2 at Patient Temp 58 mmHg (35-46) Arterial Blood pO2 at Patient Temp 66 mmHg (65-108) Arterial Blood HCO3 34 mmol/L (21-28) Arterial Blood Base Excess 7 mmol/L (-3-3) FiO2 35 Glucose (Fingerstick) 135 mg/dL (70-99) Laboratory Tests Test 10/15/18 17:12 10/15/18 20:58 10/16/18 00:19 10/16/18 04:10 Glucose (Fingerstick) 224 mg/dL (70-99) 190 mg/dL (70-99) 165 mg/dL (70-99) White Blood Count 9.7 x10^3/uL (4.0-11.0) Red Blood Count 3.93 x10^6/uL (4.30-5.70) Hemoglobin 11.6 g/dL (13.0-17.5) Hematocrit 36.3 % (39.0-53.0) Mean Corpuscular Volume 92 fL (79-100) Mean Corpuscular Hemoglobin 30 pg (25-35) Mean Corpuscular Hemoglobin Concent 32 g/dL (31-37) Red Cell Distribution Width 16.9 % (11.5-14.5) Platelet Count 171 x10^3/uL (140-400) Neutrophils (%) (Auto) 79 % (31-73) Lymphocytes (%) (Auto) 12 % (24-48) Monocytes (%) (Auto) 8 % (0-9) Eosinophils (%) (Auto) 1 % (0-3) Basophils (%) (Auto) 0 % (0-3) Neutrophils # (Auto) 7.6 x10^3uL (1.8-7.7) Lymphocytes # (Auto) 1.2 x10^3/uL (1.0-4.8) Monocytes # (Auto) 0.8 x10^3/uL (0.0-1.1) Eosinophils # (Auto) 0.1 x10^3/uL (0.0-0.7) Basophils # (Auto) 0.0 x10^3/uL (0.0-0.2) Sodium Level 146 mmol/L (136-145) Potassium Level 4.8 mmol/L (3.5-5.1) Chloride Level 110 mmol/L (98-107) Carbon Dioxide Level 33 mmol/L (21-32) Anion Gap 3 (6-14) Blood Urea Nitrogen 67 mg/dL (8-26) Creatinine 1.2 mg/dL (0.7-1.3) Estimated GFR (Cockcroft-Gault) 58.9 BUN/Creatinine Ratio 56 (6-20) Glucose Level 181 mg/dL (70-99) Calcium Level 8.1 mg/dL (8.5-10.1) Total Bilirubin 0.9 mg/dL (0.2-1.0) Aspartate Amino Transf (AST/SGOT) 13 U/L (15-37) Alanine Aminotransferase (ALT/SGPT) 44 U/L (16-63) Alkaline Phosphatase 47 U/L (46-116) Total Protein 5.1 g/dL (6.4-8.2) Albumin 2.2 g/dL (3.4-5.0) Albumin/Globulin Ratio 0.8 (1.0-1.7) Test 10/16/18 05:32 10/16/18 08:15 10/16/18 12:12 Glucose (Fingerstick) 130 mg/dL (70-99) 135 mg/dL (70-99) O2 Saturation 91 % (92-99) Arterial Blood pH 7.38 (7.35-7.45) Arterial Blood pCO2 at Patient Temp 58 mmHg (35-46) Arterial Blood pO2 at Patient Temp 66 mmHg (65-108) Arterial Blood HCO3 34 mmol/L (21-28) Arterial Blood Base Excess 7 mmol/L (-3-3) FiO2 35 Microbiology 10/07/18 Blood Culture - Final, Complete NO GROWTH AFTER 5 DAYS 10/08/18 - Final, Complete 10/08/18 - Final, Complete 10/08/18 - Final, Complete 10/08/18 - Final, Complete 10/08/18 - Final, Complete 10/08/18 Gram Stain Evaluation - Final, Complete 10/08/18 Sputum Culture - Final, Complete 10/08/18 Sputum Result 1 - Final, Complete 10/07/18 Urine Culture - Final, Complete 10/07/18 Urine Culture Result 1 (ELEN) - Final, Complete 10/07/18 Antimicrobic Susceptibility - Final, Complete Vitals/I & O Vital Sign - Last 24 Hours 10/15/18 10/15/18 10/15/18 10/15/18 13:00 14:00 15:00 16:00 Pulse 52 50 56 Resp 22 22 22 B/P (MAP) 87/44 (58) 86/43 (57) 129/52 (77) Pulse Ox 100 100 100 O2 Delivery Ventilator Ventilator Ventilator Mechanical Ventilator 10/15/18 10/15/18 10/15/18 10/15/18 16:00 16:04 16:36 17:00 Pulse 62 63 Resp 23 22 22 B/P (MAP) 114/48 (70) 129/67 (87) Pulse Ox 100 99 100 100 O2 Delivery Ventilator Ventilator Ventilator Ventilator 10/15/18 10/15/18 10/15/18 10/15/18 17:12 18:00 18:04 19:00 Pulse 72 64 Resp 22 22 22 B/P (MAP) 133/84 (100) 114/46 (68) Pulse Ox 100 99 99 100 O2 Delivery Ventilator Ventilator Ventilator Ventilator 10/15/18 10/15/18 10/15/18 10/15/18 19:24 19:45 20:00 20:00 Temp 99.3 99.3 Pulse 60 Resp 23 22 B/P (MAP) 87/40 (56) Pulse Ox 100 99 100 O2 Delivery Ventilator Ventilator Ventilator Mechanical Ventilator 10/15/18 10/15/18 10/15/18 10/15/18 21:00 22:00 22:59 23:00 Pulse 58 55 49 Resp 22 22 22 B/P (MAP) 97/41 (59) 93/43 (60) 93/43 (60) Pulse Ox 100 100 100 100 O2 Delivery Ventilator Ventilator Ventilator Ventilator 10/15/18 10/16/18 10/16/18 10/16/18 23:59 00:00 01:00 01:03 Temp 99.3 99.3 Pulse 64 59 Resp 22 22 23 B/P (MAP) 142/57 (85) 126/63 (84) Pulse Ox 100 100 100 O2 Delivery Mechanical Ventilator Ventilator Ventilator Ventilator 10/16/18 10/16/18 10/16/18 10/16/18 01:33 02:00 02:23 03:00 Pulse 60 58 Resp 22 22 22 B/P (MAP) 126/63 (84) 155/67 (96) Pulse Ox 100 100 100 100 O2 Delivery Ventilator Ventilator Ventilator Ventilator 10/16/18 10/16/18 10/16/18 10/16/18 04:00 04:00 04:28 05:00 Temp 99.5 99.5 Pulse 62 66 Resp 23 23 B/P (MAP) 146/72 (96) 139/89 (106) Pulse Ox 100 100 100 O2 Delivery Mechanical Ventilator Ventilator Ventilator Ventilator 10/16/18 10/16/18 10/16/18 10/16/18 05:37 06:00 08:00 08:00 Pulse 65 66 Resp 22 22 B/P (MAP) 134/58 (83) 164/73 (103) Pulse Ox 100 98 97 O2 Delivery Ventilator Ventilator Mechanical Ventilator Ventilator 10/16/18 10/16/18 10/16/18 10/16/18 08:15 09:00 10:00 10:00 Pulse 68 66 Resp 22 22 B/P (MAP) 123/77 (92) 90/50 (63) Pulse Ox 100 99 94 95 O2 Delivery Ventilator Ventilator Ventilator Ventilator 10/16/18 10/16/18 10/16/18 10/16/18 10:15 11:00 11:35 12:00 Pulse 75 66 Resp 22 B/P (MAP) 154/64 109/49 (69) Pulse Ox 94 97 O2 Delivery Ventilator Ventilator Mechanical Ventilator Intake and Output 10/15/18 10/15/18 10/16/18 14:59 22:59 06:59 Intake Total 900 ml 2172 ml 1317 ml Output Total 805 ml 765 ml 865 ml Balance 95 ml 1407 ml 452 ml Problem List Problems Medical Problems: (1) Acute respiratory distress Status: Acute (2) CAP (community acquired pneumonia) Status: Acute (3) CHF (congestive heart failure) Status: Acute (4) Elevated liver function tests Status: Acute (5) Elevated troponin I level Status: Acute (6) Hyperkalemia Status: Acute (7) Renal insufficiency Status: Acute (8) Sepsis Status: Acute (9) Unresponsiveness Status: Acute (10) Urinary tract infection Status: Acute Assessment OP dysphagia/prolonged ventilator support, unweanable. Plan of Care Note Plan PEG tomorrow. GLORIA NAVA MD October 16, 2018 12:42
--- NOTE | 2018-10-16 12:44 | NUR ---
to OR per bed w anesthesia/OR nurse/full monitor for scheduled trach. Remains NPO. No insulin required at this time.
[2018-10-16] MEDS ORDERED: NEOSTIGMINE METHYLSULFATE 5 MG/5 ML SYRINGE. ONE (13:27)
[2018-10-16] MEDS ORDERED: GLYCOPYRROLATE 1 MG/5 ML VIAL. ONE (13:27)
--- NOTE | 2018-10-16 13:35 | PDOC ---
BRIEF OPERATIVE NOTE Date: October 16, 2018 Pre-Op Diagnosis Ventilator dependent respiratory failure Severe COPD CHF Morbid obesity Post-Op Diagnosis Ventilator dependent respiratory failure Severe COPD CHF Morbid obesity Procedure Performed Tracheostomy Surgeon Nancy Syed MD [facility] [employer] TAJ Pinto Anesthesiologist Nawaf eMza MD Anesthesia Type: General Blood Loss <5 mls IV Fluid N/A Urine Output N/A Specimens Obtained None Findings 8fr cuffed, fenestrated, tracheostomy tube Large goiter Complications None NANCY SYED MD October 16, 2018 13:35
[2018-10-16] MEDS ORDERED: SEVOFLURANE 31 TO 60 MINUTES. IH ONE (13:36)
--- NOTE | 2018-10-16 13:37 | PDOC4 ---
Operative Note Operative Note Date October 16, 2018 Preoperative diagnosis Ventilator dependent respiratory failure Severe COPD CHF Morbid obesity Postoperative diagnosis Ventilator dependent respiratory failure Severe COPD CHF Morbid obesity Procedure performed Tracheostomy Surgeon Nancy Syed MD FACS Rug Sc[employer] TAJ Pinto Anesthesiologist Nawaf Meza MD Anesthesia type General Blood loss <5 mls IV fluids N/A Urine output N/A Specimens Obtained None Findings 8fr cuffed, fenestrated, tracheostomy tube Large goiter Complications None Indication The patient is a 78-year-old male who was admitted on October 07, after being found down unresponsive. He apparently did not lose a pulse. He was intubated upon admission and remains on the ventilator ever since. He apparently has a history of severe COPD and has been oxygen dependent at home, although according to his , he is not been using his oxygen recently. He has a history of lifelong heavy smoking 3ppd, but did quit 3 years ago. He has failed several weaning trials. He is currently hemodynamically stable and on minimal vent settings. A tracheostomy was indicated for weaning purposes. Operation The patient's ID was confirmed using 2 unique identifies. The patient was transferred to the OR intubated from the ICU. He was placed supine on the operating table with both arms tucked. A shoulder roll was also placed to facilitate neck extension. Neck landmarks were identified. The patient's neck was prepped and draped in the usual sterile surgical fashion. The patient was been on therapeutic antibiotics. A timeout was then performed. A 4 cm transverse incision in the skin crease just below the level of the cricoid cartilage was made. The incision was deepened through the subcutaneous tissues followed by the platysma. The strap muscles were bluntly at the median raphe. The isthmus of the thyroid was identified and divided using electrocautery. He did have a rather large goiter. The pretracheal fascia was incised. Hemostasis of the thyroid gland and surrounding tissues was confirmed. I clearly identified the cricoid cartilage, the hyoid, the first, second and third tracheal rings. I then asked anesthesia to deflate the endotracheal tube balloon. The first and second tracheal rings anteriorly were excised. The endotracheal tube was slowly withdrawn and a 8 fr cuffed, non fenestrated tracheostomy tube was inserted with ease. The inner cannula was placed and secured. The tracheostomy was connected to the ventilator with excellent tidal volume return. 2-0 nylon sutures were used to reapproximate the incision on the lateral aspects of the tracheostomy. The tracheostomy was secured with four 2-0 nylon's and a trach collar. At the end of the procedure, the instrument, sponge and needle counts were correct. The patient was transferred back to the ICU in stable condition, having tolerated the procedure well. NANCY SYED MD October 16, 2018 13:37
--- NOTE | 2018-10-16 14:18 | NUR ---
SS following up with discharge planning. SS phoned and faxed clinical updates to [facility], ; fax [phone].
--- NOTE | 2018-10-16 14:40 | NUR ---
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
--- NOTE | 2018-10-16 15:19 | NUR ---
PICC Insertion Note- Procedure: Following complete explanation of the PICC procedure including the indications, risks, and potential complications, informed consent was obtained. The possibility for infection was discussed along with signs, symptoms, and prevention. All the questions were answered. Written and verbal patient education was provided. Hand hygiene performed. Standardized central line checklist was utilized. The patient was placed in the supine position, the arm was prepped with chlorhexidine and patient draped with maximum sterile barrier. 2 mL 1% lidocaine was infiltrated into the skin to provide local anesthesia. A thorough assessment of Right upper extremity completed. Using real-time ultrasound guidance and standardized micro puncture set, the brachial vein was punctured and a peel away sheath was placed using the modified Seldinger technique. A tip location device was used to ensure adequate catheter placement. The catheter was secured using a securement device and an antimicrobial patch was applied directly on the insertion site followed by a transparent dressing. All ports withdraw blood and flush without resistance. Patient tolerated the procedure without apparent complication(s). Triple Lumen Power PICC placement successful and uncomplicated. Placement verified by EKG tip confirmation system and/or chest x-ray. Tip located in the CAJ/SVC. Complications: none Catheter trimmed at 43cm with 0cm visible at insertion site.
[2018-10-16] MEDS: MORPHINE SULFATE 2 MG/ML VIAL. IV PRN (16:34)
[2018-10-16] MEDS: INSULIN GLARGINE 300 UNITS/3 ML INSULN.PEN. SQ SCH (21:00)
[2018-10-16] MEDS: FAMOTIDINE 20 MG/2 ML VIAL IVP SCH (21:24)
[2018-10-17] VITALS (23 sets, daily range): BP systolic 84–129; BP diastolic 33–89
[2018-10-17] MEDS: fentaNYL PF VIAL 100 MCG/2 ML VIAL IV PRN ×2 (00:36→11:25)
[2018-10-17] MEDS: MEROPENEM 500 MG in IV NORMAL SALINE 50ML 50 ML IV SCH ×2 (05:19→15:19)
[2018-10-17] MEDS: HEPARIN for SUB-Q USE 5,000 UNIT/ML VIAL. SQ SCH ×2 (05:19→14:00)
[2018-10-17] MEDS: IV NORMAL SALINE 1000ML BAG 1,000 ML IV SCH (05:19)
[2018-10-17] MEDS: INSULIN LISPRO 300 UNITS/3 ML INSULN.PEN. SQ SCH ×3 (05:20→18:00)
[2018-10-17 05:54] LABS: BASO % 0 % (0-3); EOS # 0.2 x10^3/uL (0.0-0.7); EOS % 2 % (0-3); HEMOGLOBIN 11.1 g/dL (13.0-17.5); LYMPH # 0.9 x10^3/uL (1.0-4.8); LYMPH % 8 % (24-48); MEAN CORPUSCULAR HEMOGLOBIN 30 pg (25-35); MEAN CORPUSCULAR HGB CONC 33 g/dL (31-37); MEAN CORPUSCULAR VOLUME 92 fL (79-100); MONO # 0.6 x10^3/uL (0.0-1.1); MONO % 5 % (0-9); NEUT # 9.7 x10^3uL (1.8-7.7); NEUT % 85 % (31-73); PLATELET COUNT 125 x10^3/uL (140-400); RED CELL DISTRIBUTION WIDTH 16.2 % (11.5-14.5); WHITE BLOOD COUNT 11.4 x10^3/uL (4.0-11.0)
[2018-10-17 06:00] LABS: ALBUMIN 2.1 g/dL (3.4-5.0); ALBUMIN/GLOBULIN RATIO 0.7 (1.0-1.7); CALCIUM 7.7 mg/dL (8.5-10.1); CREATININE 1.1 mg/dL (0.7-1.3); GFR 65.1; TOTAL BILIRUBIN 1.3 mg/dL (0.2-1.0)
[2018-10-17] MEDS ORDERED: IV RINGERS,LACTATED 1000ML 1,000 ML IV SCH (07:00)
[2018-10-17] MEDS: IPRATRPIUM/ALBUTEROL 0.5/2.5MG 3 ML NEBU. NEB SCH ×4 (07:26→19:28)
--- NOTE | 2018-10-17 07:29 | PDOC ---
Infectious Disease Note Subjective Subjective Remains intubated, FiO2 35% No fevers Tube feedings 65 ml/hr ROS ROS no n/v/d/fever Vital Sign Vital Signs Vital Signs Date Time Temp Pulse Resp B/P (MAP) Pulse Ox O2 Delivery O2 Flow Rate FiO2 10/17/18 06:00 62 22 118/56 (76) 98 Ventilator 10/17/18 04:00 98.6 98.6 Physical Exam PHYSICAL EXAM GENERAL: intubated, trach, sedated, mitts HENT: normal conj. PERRL. ETT, OGT LUNGS: Clear CV: S1 S2 irregular ABD: Obese, soft, NT, BS present : Jeffers in place EXT: 1 + edema lower extremities, bilaterally. No cyanosis. SKIN: warm without rash THERAPEUTIC DIETITIAN: Sedated, opens eyes to gentle stimuli RIJ (10/07) clean Labs Lab Laboratory Tests Test 10/16/18 08:15 10/16/18 12:12 10/16/18 18:15 10/16/18 21:27 O2 Saturation 91 % (92-99) Arterial Blood pH 7.38 (7.35-7.45) Arterial Blood pCO2 at Patient Temp 58 mmHg (35-46) Arterial Blood pO2 at Patient Temp 66 mmHg (65-108) Arterial Blood HCO3 34 mmol/L (21-28) Arterial Blood Base Excess 7 mmol/L (-3-3) FiO2 35 Glucose (Fingerstick) 135 mg/dL (70-99) 139 mg/dL (70-99) 126 mg/dL (70-99) Test 10/16/18 23:42 10/17/18 05:18 10/17/18 05:30 Glucose (Fingerstick) 134 mg/dL (70-99) 169 mg/dL (70-99) White Blood Count 11.4 x10^3/uL (4.0-11.0) Red Blood Count 3.70 x10^6/uL (4.30-5.70) Hemoglobin 11.1 g/dL (13.0-17.5) Hematocrit 34.0 % (39.0-53.0) Mean Corpuscular Volume 92 fL (79-100) Mean Corpuscular Hemoglobin 30 pg (25-35) Mean Corpuscular Hemoglobin Concent 33 g/dL (31-37) Red Cell Distribution Width 16.2 % (11.5-14.5) Platelet Count 125 x10^3/uL (140-400) Neutrophils (%) (Auto) 85 % (31-73) Lymphocytes (%) (Auto) 8 % (24-48) Monocytes (%) (Auto) 5 % (0-9) Eosinophils (%) (Auto) 2 % (0-3) Basophils (%) (Auto) 0 % (0-3) Neutrophils # (Auto) 9.7 x10^3uL (1.8-7.7) Lymphocytes # (Auto) 0.9 x10^3/uL (1.0-4.8) Monocytes # (Auto) 0.6 x10^3/uL (0.0-1.1) Eosinophils # (Auto) 0.2 x10^3/uL (0.0-0.7) Basophils # (Auto) 0.0 x10^3/uL (0.0-0.2) Sodium Level 147 mmol/L (136-145) Potassium Level 5.0 mmol/L (3.5-5.1) Chloride Level 109 mmol/L (98-107) Carbon Dioxide Level 34 mmol/L (21-32) Anion Gap 4 (6-14) Blood Urea Nitrogen 53 mg/dL (8-26) Creatinine 1.1 mg/dL (0.7-1.3) Estimated GFR (Cockcroft-Gault) 65.1 BUN/Creatinine Ratio 48 (6-20) Glucose Level 183 mg/dL (70-99) Calcium Level 7.7 mg/dL (8.5-10.1) Total Bilirubin 1.3 mg/dL (0.2-1.0) Aspartate Amino Transf (AST/SGOT) 13 U/L (15-37) Alanine Aminotransferase (ALT/SGPT) 35 U/L (16-63) Alkaline Phosphatase 46 U/L (46-116) Total Protein 5.0 g/dL (6.4-8.2) Albumin 2.1 g/dL (3.4-5.0) Albumin/Globulin Ratio 0.7 (1.0-1.7) Micro Microbiology 10/07/18 Blood Culture - Final, Complete NO GROWTH AFTER 5 DAYS 10/08/18 - Final, Complete 10/08/18 - Final, Complete 10/08/18 - Final, Complete 10/08/18 - Final, Complete 10/08/18 - Final, Complete 10/08/18 Gram Stain Evaluation - Final, Complete 10/08/18 Sputum Culture - Final, Complete 10/08/18 Sputum Result 1 - Final, Complete 10/07/18 Urine Culture - Final, Complete 10/07/18 Urine Culture Result 1 (ELEN) - Final, Complete 10/07/18 Antimicrobic Susceptibility - Final, Complete Objective Assessment Fever - resolved Pneumonia + mycoplasma 10/08 - on Doxy 10/09. Sputum cult - routine raheel/ Strep and Legionella - neg UTI, POA staph sap NSTEMI Lactic acidosis - improved Allergy PCN w/ hives and throat swelling; erythromycin w/ hives. Leukocytosis - on steroids - better Hypotension, now off Levophed gtt Acute encephalopathy - improving Acute respiratory failure s/p intubation ALEX - better COPD, O2 dependent Plan Plan of Care Continue meropenem (10/07) for now -wean soon Cont doxy (10/09) One time dose vancomycin, 10/07, d/c Zyvox (10/08)/levoflox Steroids JEANNE WRAY MD October 17, 2018 07:29
[2018-10-17] MEDS: ASPIRIN ENTERIC COATED 81 MG TABLET.DR. PO SCH (08:00)
[2018-10-17 08:41] LABS: BASE EXCESS ABG 5 mmol/L (-3-3); HCO3 ABG 29 mmol/L (21-28); PCO2 ABG 43 mmHg (35-46); PO2 ABG 76 mmHg (65-108); SAT O2 ABG 94 % (92-99)
[2018-10-17] MEDS: amLODIPine BESYLATE 5 MG TABLET PO SCH (09:00)
[2018-10-17] MEDS: FUROSEMIDE 40 MG/4 ML VIAL. IVP SCH (09:00)
--- NOTE | 2018-10-17 09:03 | PDOC ---
PULMONARY PROGRESS NOTES Subjective SEDATED ON AC MODE S/P TRACH 10/16 Vitals Vital Signs Date Time Temp Pulse Resp B/P (MAP) Pulse Ox O2 Delivery O2 Flow Rate FiO2 10/17/18 07:21 99 Ventilator 10/17/18 06:00 62 22 118/56 (76) 10/17/18 04:00 98.6 98.6 HEENT: Other (nc at perrl nose clear, orally intubated neck no thyromegaly no lad) Lungs: Clear, Other (DECREASE BS) Cardiovascular: S1, S2 Abdomen: Soft, Non-tender, Other (no mass) Extremities: Other (trace edema) Skin: Warm Labs Laboratory Tests Test 10/15/18 11:49 10/15/18 17:12 10/15/18 20:58 10/16/18 00:19 Glucose (Fingerstick) 176 mg/dL (70-99) 224 mg/dL (70-99) 190 mg/dL (70-99) 165 mg/dL (70-99) Test 10/16/18 04:10 10/16/18 05:32 10/16/18 08:15 10/16/18 12:12 White Blood Count 9.7 x10^3/uL (4.0-11.0) Red Blood Count 3.93 x10^6/uL (4.30-5.70) Hemoglobin 11.6 g/dL (13.0-17.5) Hematocrit 36.3 % (39.0-53.0) Mean Corpuscular Volume 92 fL (79-100) Mean Corpuscular Hemoglobin 30 pg (25-35) Mean Corpuscular Hemoglobin Concent 32 g/dL (31-37) Red Cell Distribution Width 16.9 % (11.5-14.5) Platelet Count 171 x10^3/uL (140-400) Neutrophils (%) (Auto) 79 % (31-73) Lymphocytes (%) (Auto) 12 % (24-48) Monocytes (%) (Auto) 8 % (0-9) Eosinophils (%) (Auto) 1 % (0-3) Basophils (%) (Auto) 0 % (0-3) Neutrophils # (Auto) 7.6 x10^3uL (1.8-7.7) Lymphocytes # (Auto) 1.2 x10^3/uL (1.0-4.8) Monocytes # (Auto) 0.8 x10^3/uL (0.0-1.1) Eosinophils # (Auto) 0.1 x10^3/uL (0.0-0.7) Basophils # (Auto) 0.0 x10^3/uL (0.0-0.2) Sodium Level 146 mmol/L (136-145) Potassium Level 4.8 mmol/L (3.5-5.1) Chloride Level 110 mmol/L (98-107) Carbon Dioxide Level 33 mmol/L (21-32) Anion Gap 3 (6-14) Blood Urea Nitrogen 67 mg/dL (8-26) Creatinine 1.2 mg/dL (0.7-1.3) Estimated GFR (Cockcroft-Gault) 58.9 BUN/Creatinine Ratio 56 (6-20) Glucose Level 181 mg/dL (70-99) Calcium Level 8.1 mg/dL (8.5-10.1) Total Bilirubin 0.9 mg/dL (0.2-1.0) Aspartate Amino Transf (AST/SGOT) 13 U/L (15-37) Alanine Aminotransferase (ALT/SGPT) 44 U/L (16-63) Alkaline Phosphatase 47 U/L (46-116) Total Protein 5.1 g/dL (6.4-8.2) Albumin 2.2 g/dL (3.4-5.0) Albumin/Globulin Ratio 0.8 (1.0-1.7) Glucose (Fingerstick) 130 mg/dL (70-99) 135 mg/dL (70-99) O2 Saturation 91 % (92-99) Arterial Blood pH 7.38 (7.35-7.45) Arterial Blood pCO2 at Patient Temp 58 mmHg (35-46) Arterial Blood pO2 at Patient Temp 66 mmHg (65-108) Arterial Blood HCO3 34 mmol/L (21-28) Arterial Blood Base Excess 7 mmol/L (-3-3) FiO2 35 Test 10/16/18 18:15 10/16/18 21:27 10/16/18 23:42 10/17/18 05:18 Glucose (Fingerstick) 139 mg/dL (70-99) 126 mg/dL (70-99) 134 mg/dL (70-99) 169 mg/dL (70-99) Test 10/17/18 05:30 White Blood Count 11.4 x10^3/uL (4.0-11.0) Red Blood Count 3.70 x10^6/uL (4.30-5.70) Hemoglobin 11.1 g/dL (13.0-17.5) Hematocrit 34.0 % (39.0-53.0) Mean Corpuscular Volume 92 fL (79-100) Mean Corpuscular Hemoglobin 30 pg (25-35) Mean Corpuscular Hemoglobin Concent 33 g/dL (31-37) Red Cell Distribution Width 16.2 % (11.5-14.5) Platelet Count 125 x10^3/uL (140-400) Neutrophils (%) (Auto) 85 % (31-73) Lymphocytes (%) (Auto) 8 % (24-48) Monocytes (%) (Auto) 5 % (0-9) Eosinophils (%) (Auto) 2 % (0-3) Basophils (%) (Auto) 0 % (0-3) Neutrophils # (Auto) 9.7 x10^3uL (1.8-7.7) Lymphocytes # (Auto) 0.9 x10^3/uL (1.0-4.8) Monocytes # (Auto) 0.6 x10^3/uL (0.0-1.1) Eosinophils # (Auto) 0.2 x10^3/uL (0.0-0.7) Basophils # (Auto) 0.0 x10^3/uL (0.0-0.2) Sodium Level 147 mmol/L (136-145) Potassium Level 5.0 mmol/L (3.5-5.1) Chloride Level 109 mmol/L (98-107) Carbon Dioxide Level 34 mmol/L (21-32) Anion Gap 4 (6-14) Blood Urea Nitrogen 53 mg/dL (8-26) Creatinine 1.1 mg/dL (0.7-1.3) Estimated GFR (Cockcroft-Gault) 65.1 BUN/Creatinine Ratio 48 (6-20) Glucose Level 183 mg/dL (70-99) Calcium Level 7.7 mg/dL (8.5-10.1) Total Bilirubin 1.3 mg/dL (0.2-1.0) Aspartate Amino Transf (AST/SGOT) 13 U/L (15-37) Alanine Aminotransferase (ALT/SGPT) 35 U/L (16-63) Alkaline Phosphatase 46 U/L (46-116) Total Protein 5.0 g/dL (6.4-8.2) Albumin 2.1 g/dL (3.4-5.0) Albumin/Globulin Ratio 0.7 (1.0-1.7) Laboratory Tests Test 10/16/18 12:12 10/16/18 18:15 10/16/18 21:27 10/16/18 23:42 Glucose (Fingerstick) 135 mg/dL (70-99) 139 mg/dL (70-99) 126 mg/dL (70-99) 134 mg/dL (70-99) Test 10/17/18 05:18 10/17/18 05:30 Glucose (Fingerstick) 169 mg/dL (70-99) White Blood Count 11.4 x10^3/uL (4.0-11.0) Red Blood Count 3.70 x10^6/uL (4.30-5.70) Hemoglobin 11.1 g/dL (13.0-17.5) Hematocrit 34.0 % (39.0-53.0) Mean Corpuscular Volume 92 fL (79-100) Mean Corpuscular Hemoglobin 30 pg (25-35) Mean Corpuscular Hemoglobin Concent 33 g/dL (31-37) Red Cell Distribution Width 16.2 % (11.5-14.5) Platelet Count 125 x10^3/uL (140-400) Neutrophils (%) (Auto) 85 % (31-73) Lymphocytes (%) (Auto) 8 % (24-48) Monocytes (%) (Auto) 5 % (0-9) Eosinophils (%) (Auto) 2 % (0-3) Basophils (%) (Auto) 0 % (0-3) Neutrophils # (Auto) 9.7 x10^3uL (1.8-7.7) Lymphocytes # (Auto) 0.9 x10^3/uL (1.0-4.8) Monocytes # (Auto) 0.6 x10^3/uL (0.0-1.1) Eosinophils # (Auto) 0.2 x10^3/uL (0.0-0.7) Basophils # (Auto) 0.0 x10^3/uL (0.0-0.2) Sodium Level 147 mmol/L (136-145) Potassium Level 5.0 mmol/L (3.5-5.1) Chloride Level 109 mmol/L (98-107) Carbon Dioxide Level 34 mmol/L (21-32) Anion Gap 4 (6-14) Blood Urea Nitrogen 53 mg/dL (8-26) Creatinine 1.1 mg/dL (0.7-1.3) Estimated GFR (Cockcroft-Gault) 65.1 BUN/Creatinine Ratio 48 (6-20) Glucose Level 183 mg/dL (70-99) Calcium Level 7.7 mg/dL (8.5-10.1) Total Bilirubin 1.3 mg/dL (0.2-1.0) Aspartate Amino Transf (AST/SGOT) 13 U/L (15-37) Alanine Aminotransferase (ALT/SGPT) 35 U/L (16-63) Alkaline Phosphatase 46 U/L (46-116) Total Protein 5.0 g/dL (6.4-8.2) Albumin 2.1 g/dL (3.4-5.0) Albumin/Globulin Ratio 0.7 (1.0-1.7) Medications Active Scripts Medications Dose Route/Sig Max Daily Dose Days Date Category Proair Hfa (Albuterol Sulfate) 8.5 Gm Hfa.aer.ad 1 Puff INH PRN Q6HRS PRN 10/07/18 Reported Oxazepam 30 Mg Capsule 30 Mg PO QHS 10/07/18 Reported Impression . 1. Acute on chronic hypoxemic/ hypercapnic respiratory failure, multifactorial. 2. Acute exacerbation of chronic obstructive pulmonary disease. suspect severe COPD 3. Abnormal x-ray improved. 4. Gram-negative, possible gram-positive pneumonia. 5. No history given of diabetes, hypertension or renal failure. 6. History of alcohol intake, discontinued approximately 4 years ago. 7. Possible sepsis POA, improved 8. Positive mycoplasma serology 9. EF 40%, acute sys chf 10. S/P TRACH 10/16 Plan . NO WEANING FOR 2 DAYS PT TRACH IS FRESH FOLLOW CXR WILL CONTINUE SUPPORT FOLLOW CARD CONTINUE ANTIBX PER ID DIURESE STEROIDS elevate hob DVT GI PROPH, pepcid, heparin sq ENTERAL FEEDING KRISTI DOMINGUEZ MD October 17, 2018 09:03
--- NOTE | 2018-10-17 09:17 | PDOC ---
PROGRESS NOTES Chief Complaint Chief Complaint Fulminant respiratory failure End-stage COPD Clinical pneumonia MORBID OBESITY Possible sepsis uti Staphylococcus saprophyticus. Greater than 100,000 colony forming units per mL Noncompliance Pneumonia + mycoplasma 10/08 - on Doxy 10/09 hypercapnic resp failure poor prognosis azotemia wants full aggressive care be continued including tracheostomy and PEG tube Trach Tuesday. PEG Tuesday. HOLD LASIX, LISINOPRIL today Fluid bolus 500cc ns x 1 now History of Present Illness History of Present Illness Patient was seen and examined in the intensive care unit He is still on the assist control Discussed with the RN address goals of treatment failed BIPAP TRIAL 10/10 Maintain aspiration precautions failed effort for bipap trial again X3 trach Monday 10/16 consult gi FOR PEG 10/17 ALEX - resolved Good UOP E-Lytes and acid base stable Holding lasix 36 min cc time Vitals Vitals Vital Signs Date Time Temp Pulse Resp B/P (MAP) Pulse Ox O2 Delivery O2 Flow Rate FiO2 10/17/18 07:21 99 Ventilator 10/17/18 06:00 62 22 118/56 (76) 10/17/18 04:00 98.6 98.6 Physical Exam Physical Exam GENERAL: intubated, trach, sedated, mitts HENT: normal conj. PERRL. ETT, OGT LUNGS: Clear CV: S1 S2 irregular ABD: Obese, soft, NT, BS present : Jeffers in place EXT: 1 + edema lower extremities, bilaterally. No cyanosis. SKIN: warm without rash [employer]: Sedated, opens eyes to gentle stimuli RIJ (10/07) clean General: No acute distress, Other Heart: Regular rate, Normal S1, Normal S2 Lungs: Clear, Other (DECREASE BS) Abdomen: Soft, No tenderness Extremities: No cyanosis, Other (trace edema) Skin: No significant lesion Labs LABS Laboratory Tests Test 10/16/18 12:12 10/16/18 18:15 10/16/18 21:27 10/16/18 23:42 Glucose (Fingerstick) 135 mg/dL (70-99) 139 mg/dL (70-99) 126 mg/dL (70-99) 134 mg/dL (70-99) Test 10/17/18 05:18 10/17/18 05:30 Glucose (Fingerstick) 169 mg/dL (70-99) White Blood Count 11.4 x10^3/uL (4.0-11.0) Red Blood Count 3.70 x10^6/uL (4.30-5.70) Hemoglobin 11.1 g/dL (13.0-17.5) Hematocrit 34.0 % (39.0-53.0) Mean Corpuscular Volume 92 fL (79-100) Mean Corpuscular Hemoglobin 30 pg (25-35) Mean Corpuscular Hemoglobin Concent 33 g/dL (31-37) Red Cell Distribution Width 16.2 % (11.5-14.5) Platelet Count 125 x10^3/uL (140-400) Neutrophils (%) (Auto) 85 % (31-73) Lymphocytes (%) (Auto) 8 % (24-48) Monocytes (%) (Auto) 5 % (0-9) Eosinophils (%) (Auto) 2 % (0-3) Basophils (%) (Auto) 0 % (0-3) Neutrophils # (Auto) 9.7 x10^3uL (1.8-7.7) Lymphocytes # (Auto) 0.9 x10^3/uL (1.0-4.8) Monocytes # (Auto) 0.6 x10^3/uL (0.0-1.1) Eosinophils # (Auto) 0.2 x10^3/uL (0.0-0.7) Basophils # (Auto) 0.0 x10^3/uL (0.0-0.2) Sodium Level 147 mmol/L (136-145) Potassium Level 5.0 mmol/L (3.5-5.1) Chloride Level 109 mmol/L (98-107) Carbon Dioxide Level 34 mmol/L (21-32) Anion Gap 4 (6-14) Blood Urea Nitrogen 53 mg/dL (8-26) Creatinine 1.1 mg/dL (0.7-1.3) Estimated GFR (Cockcroft-Gault) 65.1 BUN/Creatinine Ratio 48 (6-20) Glucose Level 183 mg/dL (70-99) Calcium Level 7.7 mg/dL (8.5-10.1) Total Bilirubin 1.3 mg/dL (0.2-1.0) Aspartate Amino Transf (AST/SGOT) 13 U/L (15-37) Alanine Aminotransferase (ALT/SGPT) 35 U/L (16-63) Alkaline Phosphatase 46 U/L (46-116) Total Protein 5.0 g/dL (6.4-8.2) Albumin 2.1 g/dL (3.4-5.0) Albumin/Globulin Ratio 0.7 (1.0-1.7) Assessment and Plan Assessmemt and Plan Problems Medical Problems: (1) Acute respiratory distress Status: Acute (2) CAP (community acquired pneumonia) Status: Acute (3) CHF (congestive heart failure) Status: Acute (4) Elevated liver function tests Status: Acute (5) Elevated troponin I level Status: Acute (6) Hyperkalemia Status: Acute (7) Renal insufficiency Status: Acute (8) Sepsis Status: Acute (9) Unresponsiveness Status: Acute (10) Urinary tract infection Status: Acute Comment Review of Relevant I have reviewed the following items akbar (where applicable) has been applied. Labs Laboratory Tests Test 10/15/18 11:49 10/15/18 17:12 10/15/18 20:58 10/16/18 00:19 Glucose (Fingerstick) 176 mg/dL (70-99) 224 mg/dL (70-99) 190 mg/dL (70-99) 165 mg/dL (70-99) Test 10/16/18 04:10 10/16/18 05:32 10/16/18 08:15 10/16/18 12:12 White Blood Count 9.7 x10^3/uL (4.0-11.0) Red Blood Count 3.93 x10^6/uL (4.30-5.70) Hemoglobin 11.6 g/dL (13.0-17.5) Hematocrit 36.3 % (39.0-53.0) Mean Corpuscular Volume 92 fL (79-100) Mean Corpuscular Hemoglobin 30 pg (25-35) Mean Corpuscular Hemoglobin Concent 32 g/dL (31-37) Red Cell Distribution Width 16.9 % (11.5-14.5) Platelet Count 171 x10^3/uL (140-400) Neutrophils (%) (Auto) 79 % (31-73) Lymphocytes (%) (Auto) 12 % (24-48) Monocytes (%) (Auto) 8 % (0-9) Eosinophils (%) (Auto) 1 % (0-3) Basophils (%) (Auto) 0 % (0-3) Neutrophils # (Auto) 7.6 x10^3uL (1.8-7.7) Lymphocytes # (Auto) 1.2 x10^3/uL (1.0-4.8) Monocytes # (Auto) 0.8 x10^3/uL (0.0-1.1) Eosinophils # (Auto) 0.1 x10^3/uL (0.0-0.7) Basophils # (Auto) 0.0 x10^3/uL (0.0-0.2) Sodium Level 146 mmol/L (136-145) Potassium Level 4.8 mmol/L (3.5-5.1) Chloride Level 110 mmol/L (98-107) Carbon Dioxide Level 33 mmol/L (21-32) Anion Gap 3 (6-14) Blood Urea Nitrogen 67 mg/dL (8-26) Creatinine 1.2 mg/dL (0.7-1.3) Estimated GFR (Cockcroft-Gault) 58.9 BUN/Creatinine Ratio 56 (6-20) Glucose Level 181 mg/dL (70-99) Calcium Level 8.1 mg/dL (8.5-10.1) Total Bilirubin 0.9 mg/dL (0.2-1.0) Aspartate Amino Transf (AST/SGOT) 13 U/L (15-37) Alanine Aminotransferase (ALT/SGPT) 44 U/L (16-63) Alkaline Phosphatase 47 U/L (46-116) Total Protein 5.1 g/dL (6.4-8.2) Albumin 2.2 g/dL (3.4-5.0) Albumin/Globulin Ratio 0.8 (1.0-1.7) Glucose (Fingerstick) 130 mg/dL (70-99) 135 mg/dL (70-99) O2 Saturation 91 % (92-99) Arterial Blood pH 7.38 (7.35-7.45) Arterial Blood pCO2 at Patient Temp 58 mmHg (35-46) Arterial Blood pO2 at Patient Temp 66 mmHg (65-108) Arterial Blood HCO3 34 mmol/L (21-28) Arterial Blood Base Excess 7 mmol/L (-3-3) FiO2 35 Test 10/16/18 18:15 10/16/18 21:27 10/16/18 23:42 10/17/18 05:18 Glucose (Fingerstick) 139 mg/dL (70-99) 126 mg/dL (70-99) 134 mg/dL (70-99) 169 mg/dL (70-99) Test 10/17/18 05:30 White Blood Count 11.4 x10^3/uL (4.0-11.0) Red Blood Count 3.70 x10^6/uL (4.30-5.70) Hemoglobin 11.1 g/dL (13.0-17.5) Hematocrit 34.0 % (39.0-53.0) Mean Corpuscular Volume 92 fL (79-100) Mean Corpuscular Hemoglobin 30 pg (25-35) Mean Corpuscular Hemoglobin Concent 33 g/dL (31-37) Red Cell Distribution Width 16.2 % (11.5-14.5) Platelet Count 125 x10^3/uL (140-400) Neutrophils (%) (Auto) 85 % (31-73) Lymphocytes (%) (Auto) 8 % (24-48) Monocytes (%) (Auto) 5 % (0-9) Eosinophils (%) (Auto) 2 % (0-3) Basophils (%) (Auto) 0 % (0-3) Neutrophils # (Auto) 9.7 x10^3uL (1.8-7.7) Lymphocytes # (Auto) 0.9 x10^3/uL (1.0-4.8) Monocytes # (Auto) 0.6 x10^3/uL (0.0-1.1) Eosinophils # (Auto) 0.2 x10^3/uL (0.0-0.7) Basophils # (Auto) 0.0 x10^3/uL (0.0-0.2) Sodium Level 147 mmol/L (136-145) Potassium Level 5.0 mmol/L (3.5-5.1) Chloride Level 109 mmol/L (98-107) Carbon Dioxide Level 34 mmol/L (21-32) Anion Gap 4 (6-14) Blood Urea Nitrogen 53 mg/dL (8-26) Creatinine 1.1 mg/dL (0.7-1.3) Estimated GFR (Cockcroft-Gault) 65.1 BUN/Creatinine Ratio 48 (6-20) Glucose Level 183 mg/dL (70-99) Calcium Level 7.7 mg/dL (8.5-10.1) Total Bilirubin 1.3 mg/dL (0.2-1.0) Aspartate Amino Transf (AST/SGOT) 13 U/L (15-37) Alanine Aminotransferase (ALT/SGPT) 35 U/L (16-63) Alkaline Phosphatase 46 U/L (46-116) Total Protein 5.0 g/dL (6.4-8.2) Albumin 2.1 g/dL (3.4-5.0) Albumin/Globulin Ratio 0.7 (1.0-1.7) Laboratory Tests Test 10/16/18 12:12 10/16/18 18:15 10/16/18 21:27 10/16/18 23:42 Glucose (Fingerstick) 135 mg/dL (70-99) 139 mg/dL (70-99) 126 mg/dL (70-99) 134 mg/dL (70-99) Test 10/17/18 05:18 10/17/18 05:30 Glucose (Fingerstick) 169 mg/dL (70-99) White Blood Count 11.4 x10^3/uL (4.0-11.0) Red Blood Count 3.70 x10^6/uL (4.30-5.70) Hemoglobin 11.1 g/dL (13.0-17.5) Hematocrit 34.0 % (39.0-53.0) Mean Corpuscular Volume 92 fL (79-100) Mean Corpuscular Hemoglobin 30 pg (25-35) Mean Corpuscular Hemoglobin Concent 33 g/dL (31-37) Red Cell Distribution Width 16.2 % (11.5-14.5) Platelet Count 125 x10^3/uL (140-400) Neutrophils (%) (Auto) 85 % (31-73) Lymphocytes (%) (Auto) 8 % (24-48) Monocytes (%) (Auto) 5 % (0-9) Eosinophils (%) (Auto) 2 % (0-3) Basophils (%) (Auto) 0 % (0-3) Neutrophils # (Auto) 9.7 x10^3uL (1.8-7.7) Lymphocytes # (Auto) 0.9 x10^3/uL (1.0-4.8) Monocytes # (Auto) 0.6 x10^3/uL (0.0-1.1) Eosinophils # (Auto) 0.2 x10^3/uL (0.0-0.7) Basophils # (Auto) 0.0 x10^3/uL (0.0-0.2) Sodium Level 147 mmol/L (136-145) Potassium Level 5.0 mmol/L (3.5-5.1) Chloride Level 109 mmol/L (98-107) Carbon Dioxide Level 34 mmol/L (21-32) Anion Gap 4 (6-14) Blood Urea Nitrogen 53 mg/dL (8-26) Creatinine 1.1 mg/dL (0.7-1.3) Estimated GFR (Cockcroft-Gault) 65.1 BUN/Creatinine Ratio 48 (6-20) Glucose Level 183 mg/dL (70-99) Calcium Level 7.7 mg/dL (8.5-10.1) Total Bilirubin 1.3 mg/dL (0.2-1.0) Aspartate Amino Transf (AST/SGOT) 13 U/L (15-37) Alanine Aminotransferase (ALT/SGPT) 35 U/L (16-63) Alkaline Phosphatase 46 U/L (46-116) Total Protein 5.0 g/dL (6.4-8.2) Albumin 2.1 g/dL (3.4-5.0) Albumin/Globulin Ratio 0.7 (1.0-1.7) Microbiology 10/07/18 Blood Culture - Final, Complete NO GROWTH AFTER 5 DAYS 10/08/18 - Final, Complete 10/08/18 - Final, Complete 10/08/18 - Final, Complete 10/08/18 - Final, Complete 10/08/18 - Final, Complete 10/08/18 Gram Stain Evaluation - Final, Complete 10/08/18 Sputum Culture - Final, Complete 10/08/18 Sputum Result 1 - Final, Complete 10/07/18 Urine Culture - Final, Complete 10/07/18 Urine Culture Result 1 (ELEN) - Final, Complete 10/07/18 Antimicrobic Susceptibility - Final, Complete Medications Current Medications Sodium Chloride 1,000 ml @ 1,000 mls/hr Q1H IV Last administered on 10/07/18at 11:27; Start 10/07/18 at 10:52; Stop 10/07/18 at 11:51; Status DC Midazolam HCl 100 ml @ 1 mls/hr 1X ONCE IV Last administered on 10/07/18at 11:20; Start 10/07/18 at 11:15; Stop 10/09/18 at 15:55; Status DC Etomidate (Amidate) 20 mg STK-MED ONCE IV ; Start 10/07/18 at 11:13; Stop 10/07/18 at 11:14; Status DC Succinylcholine Chloride (Anectine) 200 mg STK-MED ONCE .ROUTE ; Start 10/07/18 at 11:13; Stop 10/07/18 at 11:14; Status DC Etomidate (Amidate) 20 mg 1X ONCE IV Last administered on 10/07/18at 11:01; Start 10/07/18 at 11:30; Stop 10/07/18 at 11:33; Status DC Succinylcholine Chloride (Anectine) 100 mg 1X ONCE IV Last administered on 10/07/18at 11:01; Start 10/07/18 at 11:30; Stop 10/07/18 at 11:33; Status DC Albuterol Sulfate (Ventolin Neb Soln) 10 mg 1X ONCE CONT NEB ; Start 10/07/18 at 12:00; Stop 10/07/18 at 12:01; Status DC Methylprednisolone Sodium Succinate (SOLU-Medrol 125MG VIAL) 125 mg 1X ONCE IV Last administered on 10/07/18at 11:52; Start 10/07/18 at 12:00; Stop 10/07/18 at 12:01; Status DC Vancomycin HCl 250 ml @ 250 mls/hr 1X ONCE IV Last administered on 10/07/18at 12:27; Start 10/07/18 at 12:00; Stop 10/07/18 at 12:59; Status DC Levofloxacin/ Dextrose 150 ml @ 100 mls/hr 1X ONCE IV Last administered on 10/07/18at 12:28; Start 10/07/18 at 12:00; Stop 10/07/18 at 13:29; Status DC Sodium Chloride 1,000 ml @ 1,000 mls/hr 1X ONCE IV Last administered on 10/07/18at 12:57; Start 10/07/18 at 12:45; Stop 10/07/18 at 13:44; Status DC Sodium Chloride 1,000 ml @ 1,000 mls/hr 1X ONCE IV Last administered on 10/07/18at 12:58; Start 10/07/18 at 12:45; Stop 10/07/18 at 13:44; Status DC Dextrose (Dextrose 50%-Water Syringe) 25 gm 1X ONCE IV Last administered on 10/07/18at 12:59; Start 10/07/18 at 12:45; Stop 10/07/18 at 12:46; Status DC Insulin Human Regular (HumuLIN R VIAL) 10 unit 1X ONCE IV Last administered on 10/07/18at 13:00; Start 10/07/18 at 12:45; Stop 10/07/18 at 12:46; Status DC Sodium Bicarbonate (Sodium Bicarb Adult 8.4% Syr) 50 meq 1X ONCE IV Last administered on 10/07/18at 13:07; Start 10/07/18 at 12:45; Stop 10/07/18 at 12:46; Status DC Sodium Chloride 1,000 ml @ 100 mls/hr Q10H IV ; Start 10/07/18 at 16:00; Stop 10/07/18 at 16:00; Status DC Pantoprazole Sodium (PROTONIX VIAL for IV PUSH) 40 mg DAILYAC IVP Last admin istered on 10/08/18at 08:25; Start 10/07/18 at 13:30; Stop 10/08/18 at 09:54; Status DC Pantoprazole Sodium (PROTONIX VIAL for IV PUSH) 40 mg 1X ONCE IVP ; Start 10/07/18 at 12:45; Stop 10/07/18 at 12:46; Status UNV Heparin Sodium (Porcine) (Heparin Sodium) 5,000 unit Q8HRS SQ Last administered on 10/16/18at 21:30; Start 10/07/18 at 14:00 Levofloxacin/ Dextrose (Levaquin Per Pharmacy) 1 each PRN DAILY PRN MC SEE COMMENTS; Start 10/07/18 at 12:45; Stop 10/08/18 at 07:33; Status DC Insulin Human Lispro (HumaLOG) 0-9 UNITS TIDWMEALS SQ ; Start 10/07/18 at 17:00; Stop 10/07/18 at 17:00; Status DC Dextrose (Dextrose 50%-Water Syringe) 12.5 gm PRN Q15MIN PRN IV SEE COMMENTS; Start 10/07/18 at 12:45 Albuterol/ Ipratropium (Duoneb) 3 ml RTQID NEB ; Start 10/07/18 at 16:00; Status Cancel Methylprednisolone Sodium Succinate (SOLU-Medrol 40MG VIAL) 40 mg Q8HRS IV Last administered on 10/14/18at 05:48; Start 10/07/18 at 22:00; Stop 10/14/18 at 09:29; Status DC Acetaminophen (Tylenol) 650 mg PRN Q6HRS PRN PEG MILD PAIN / TEMP Last administered on 10/08/18at 08:25; Start 10/07/18 at 12:45 Morphine Sulfate (Morphine Sulfate) 2 mg PRN Q2HR PRN IV PAIN, 1ST CHOICE Last administered on 10/16/18at 16:34; Start 10/07/18 at 12:45 Ondansetron HCl (Zofran) 4 mg PRN Q6HRS PRN IV NAUSEA/VOMITING; Start 10/07/18 at 12:45 Norepinephrine Bitartrate 250 ml @ 1.875 mls/ hr CONT PRN IV SEE I/O RECORD Last administered on 10/07/18at 14:01; Start 10/07/18 at 14:00 Sodium Chloride 1,000 ml @ 150 mls/hr Q6H40M IV Last administered on 10/08/18at 15:09; Start 10/07/18 at 14:00; Stop 10/08/18 at 13:59; Status DC Calcium Gluconate (Calcium Gluconate) 1,000 mg 1X ONCE IVP ; Start 10/07/18 at 13:30; Stop 10/07/18 at 13:31; Status Cancel Sodium Polystyrene Sulfonate (Kayexalate) 15 gm 1X ONCE PO Last administered on 10/07/18at 14:10; Start 10/07/18 at 13:30; Stop 10/07/18 at 13:31; Status DC Pantoprazole Sodium (PROTONIX VIAL for IV PUSH) 40 mg STK-MED ONCE IVP ; Start 10/07/18 at 12:52; Stop 10/07/18 at 12:55; Status DC Levofloxacin/ Dextrose 150 ml @ 100 mls/hr Q48H IV ; Start 10/09/18 at 12:00; Stop 10/09/18 at 12:00; Status DC Calcium Gluconate 1000 mg/Sodium Chloride 110 ml @ 220 mls/hr 1X ONCE IV Last administered on 10/07/18at 14:23; Start 10/07/18 at 15:00; Stop 10/07/18 at 15 :29; Status DC Sodium Chloride 1,000 ml @ 1,000 mls/hr 1X ONCE IV Last administered on 10/07/18at 14:50; Start 10/07/18 at 15:00; Stop 10/07/18 at 15:59; Status DC Sodium Chloride 1,000 ml @ 999 mls/hr 1X ONCE IV ; Start 10/07/18 at 15:00; Stop 10/07/18 at 16:00; Status DC Albuterol Sulfate (Ventolin Neb Soln) 2.5 mg PRN Q2HR PRN NEB DYSPNEA; Start 10/07/18 at 15:00 Albuterol/ Ipratropium (Duoneb) 3 ml RTQID NEB Last administered on 10/17/18at 07:26; Start 10/07/18 at 16:00 Insulin Human Lispro (HumaLOG) 0-9 UNITS Q6HRS SQ Last administered on 10/15/18at 17:47; Start 10/07/18 at 18:00 Meropenem 500 mg/ Sodium Chloride 50 ml @ 100 mls/hr Q8HRS IV Last administered on 10/17/18at 05:19; Start 10/07/18 at 17:00 Midazolam HCl 100 ml @ 5 mls/hr CONT PRN IV SEE I/O RECORD Last administered on 10/16/18at 21:30; Start 10/08/18 at 04:15 Lactobacillus Rhamnosus (Culturelle) 1 cap BID PO ; Start 10/08/18 at 09:00; Stop 10/09/18 at 15:58; Status DC Famotidine (Pepcid Vial) 20 mg QHS IVP Last administered on 10/16/18at 21:24; Start 10/08/18 at 21:00 Linezolid/Dextrose 300 ml @ 300 mls/hr Q12HR IV Last administered on 10/09/18at 20:58; Start 10/08/18 at 11:30; Stop 10/10/18 at 07:24; Status DC Doxycycline Hyclate 100 mg/ Dextrose 100 ml @ 50 mls/hr Q12HR IV Last administered on 10/16/18at 21:24; Start 10/09/18 at 13:00 Aspirin (Ecotrin) 81 mg [id number] PO Last administered on 10/16/18at 10:15; Start 10/10/18 at 08:00 Furosemide (Lasix) 40 mg 1X ONCE IVP Last administered on 10/11/18at 08:36; Start 10/11/18 at 09:00; Stop 10/11/18 at 09:01; Status DC Lisinopril (Prinivil) 10 mg DAILY PO Last administered on 10/14/18at 08:03; Start 10/11/18 at 14:00; Stop 10/15/18 at 09:46; Status DC Furosemide (Lasix) 40 mg DAILY IVP Last administered on 10/16/18at 10:18; Start 10/12/18 at 12:30 Amlodipine Besylate (Norvasc) 5 mg DAILY PO Last administered on 10/16/18at 10:15; Start 10/12/18 at 12:30 Hydralazine HCl (Apresoline Inj) 10 mg PRN Q4HRS PRN IVP ELEVATED BP, SEE COMMENTS; Start 10/12/18 at 11:45 Insulin Glargine (Lantus) 10 units QHS SQ Last administered on 10/15/18at 20:59; Start 10/13/18 at 21:00 Ondansetron HCl (Zofran) 4 mg PRN Q6HRS PRN IV NAUSEA/VOMITING; Start 10/16/18 at 07:00; Stop 10/17/18 at 06:59; Status DC Fentanyl Citrate (Fentanyl 2ml Vial) 25 mcg PRN Q5MIN PRN IV MILD PAIN 1-3; Start 10/16/18 at 07:00; Stop 10/17/18 at 06:59; Status DC Fentanyl Citrate (Fentanyl 2ml Vial) 50 mcg PRN Q5MIN PRN IV MODERATE TO SEVERE PAIN Last administered on 10/17/18at 00:36; Start 10/16/18 at 07:00; Stop 10/17/18 at 06:59; Status DC Morphine Sulfate (Morphine Sulfate) 1 mg PRN Q10MIN PRN IV SEVERE PAIN 7-10; Start 10/16/18 at 07:00; Stop 10/17/18 at 06:59; Status DC Ringer's Solution 1,000 ml @ 30 mls/hr Q24H IV ; Start 10/16/18 at 07:00; Stop 10/16/18 at 18:59; Status DC Lidocaine HCl (Xylocaine-Mpf 1% 2ml Vial) 2 ml PRN 1X PRN ID PRIOR TO IV START; Start 10/16/18 at 07:00; Stop 10/17/18 at 06:59; Status DC Hydromorphone HCl (Dilaudid) 0.5 mg PRN Q10MIN PRN IV SEV PAIN, Second choice; Start 10/16/18 at 07:00; Stop 10/17/18 at 06:59; Status DC Prochlorperazine Edisylate (Compazine) 5 mg PACU PRN PRN IV NAUSEA, MRX1; Start 10/16/18 at 07:00; Stop 10/17/18 at 06:59; Status DC Fentanyl Citrate (Fentanyl 2ml Vial) 50 mcg PRN Q2HR PRN IV PAIN, 2ND CHOICE Last administered on 10/16/18at 01:03; Start 10/14/18 at 00:30 Methylprednisolone Sodium Succinate (SOLU-Medrol 40MG VIAL) 40 mg Q12HR IV Last administered on 10/15/18at 08:28; Start 10/14/18 at 21:00; Stop 10/15/18 at 09:16; Status DC Methylprednisolone Sodium Succinate (SOLU-Medrol 40MG VIAL) 40 mg DAILY IV Last administered on 10/16/18at 10:19; Start 10/16/18 at 09:00 Sodium Chloride 500 ml @ 500 mls/hr 1X ONCE IV Last administered on 10/15/18at 09:59; Start 10/15/18 at 09:30; Stop 10/15/18 at 10:29; Status DC Sodium Chloride 1,000 ml @ 75 mls/hr [id number] IV Last administered on 10/17/18at 05:19; Start 10/15/18 at 11:45 Bisacodyl (Dulcolax Supp) 10 mg PRN DAILY PRN OK CONSTIPATION Last administered on 10/15/18at 13:43; Start 10/15/18 at 13:30 Midazolam HCl (Versed) 2 mg STK-MED ONCE .ROUTE ; Start 10/16/18 at 12:36; Stop 10/16/18 at 12:37; Status DC Fentanyl Citrate (Fentanyl 2ml Vial) 100 mcg STK-MED ONCE .ROUTE ; Start 10/16/18 at 12:36; Stop 10/16/18 at 12:37; Status DC Rocuronium Bazine (Zemuron) 50 mg STK-MED ONCE .ROUTE ; Start 10/16/18 at 12:36; Stop 10/16/18 at 12:37; Status DC Neostigmine Methylsulfate (Neostigmine Methylsulfate) 5 mg STK-MED ONCE .ROUTE ; Start 10/16/18 at 13:27; Stop 10/16/18 at 13:28; Status DC Glycopyrrolate (Robinul) 1 mg STK-MED ONCE .ROUTE ; Start 10/16/18 at 13:27; Stop 10/16/18 at 13:28; Status DC Sevoflurane (Ultane) 30 ml STK-MED ONCE IH ; Start 10/16/18 at 13:36; Stop 10/16/18 at 13:37; Status DC Ringer's Solution 1,000 ml @ 50 mls/hr Q20H IV ; Start 10/17/18 at 07:00; Stop 10/17/18 at 18:59 Active Scripts Active Reported Proair Hfa (Albuterol Sulfate) 8.5 Gm Hfa.aer.ad 1 Puff INH PRN Q6HRS PRN Oxazepam 30 Mg Capsule 30 Mg PO QHS Vitals/I & O Vital Sign - Last 24 Hours 10/16/18 10/16/18 10/16/18 10/16/18 10:00 10:00 10:15 11:00 Pulse 66 75 66 Resp 22 22 B/P (MAP) 90/50 (63) 154/64 109/49 (69) Pulse Ox 94 95 94 O2 Delivery Ventilator Ventilator Ventilator 10/16/18 10/16/18 10/16/18 10/16/18 11:35 12:00 13:00 14:00 Temp 98.9 98.9 Pulse 64 76 Resp 23 B/P (MAP) 116/55 (75) Pulse Ox 97 98 O2 Delivery Ventilator Mechanical Ventilator Ventilator 10/16/18 10/16/18 10/16/18 10/16/18 14:00 14:15 14:30 15:00 Pulse 68 62 64 Resp 21 21 22 B/P (MAP) 87/38 (54) 83/60 (68) 104/40 (61) Pulse Ox 97 96 96 96 O2 Delivery Ventilator Ventilator Ventilator Ventilator 10/16/18 10/16/18 10/16/18 10/16/18 15:30 16:00 16:00 16:11 Temp 98.9 98.9 Pulse 70 74 Resp 22 22 B/P (MAP) 114/54 (74) 108/79 (89) Pulse Ox 98 98 98 O2 Delivery Ventilator Ventilator Ventilator Mechanical Ventilator 10/16/18 10/16/18 10/16/18 10/16/18 16:34 17:00 17:03 17:40 Pulse 73 Resp 22 22 22 B/P (MAP) 108/82 (91) Pulse Ox 98 98 96 98 O2 Delivery Ventilator Ventilator Ventilator 10/16/18 10/16/18 10/16/18 10/16/18 18:00 19:00 19:52 20:00 Temp 99.1 99.1 Pulse 73 76 68 Resp 22 22 22 B/P (MAP) 121/49 (73) 110/52 (71) 132/43 (72) Pulse Ox 98 99 98 99 O2 Delivery Ventilator Ventilator Ventilator Ventilator 10/16/18 10/16/18 10/16/18 10/16/18 20:00 20:19 21:00 21:58 Pulse 62 Resp 22 22 B/P (MAP) 82/59 (67) Pulse Ox 98 99 98 O2 Delivery Mechanical Ventilator Ventilator Ventilator Ventilator 10/16/18 10/16/18 10/16/18 10/17/18 22:00 23:00 23:33 00:00 Pulse 61 64 Resp 22 22 B/P (MAP) 86/44 (58) 92/38 (56) Pulse Ox 99 98 98 O2 Delivery Ventilator Ventilator Ventilator Mechanical Ventilator 10/17/18 10/17/18 10/17/18 10/17/18 00:00 00:36 01:00 01:10 Temp 98.9 98.9 Pulse 61 61 Resp 22 22 22 22 B/P (MAP) 129/42 (71) 87/42 (57) Pulse Ox 97 100 96 97 O2 Delivery Ventilator Ventilator Ventilator Ventilator 10/17/18 10/17/18 10/17/18 10/17/18 01:41 02:00 03:00 04:00 Temp 98.6 98.6 Pulse 60 60 60 Resp B/P (MAP) 104/50 (68) 108/51 (70) 106/48 (67) Pulse Ox 98 98 98 98 O2 Delivery Ventilator Ventilator Ventilator Ventilator 10/17/18 10/17/18 10/17/18 10/17/18 04:00 04:05 05:00 05:48 Pulse 62 Resp 22 B/P (MAP) 107/33 (57) Pulse Ox 98 98 98 O2 Delivery Mechanical Ventilator Ventilator Ventilator Ventilator 10/17/18 10/17/18 06:00 07:21 Pulse 62 Resp 22 B/P (MAP) 118/56 (76) Pulse Ox 98 99 O2 Delivery Ventilator Ventilator Intake and Output 10/16/18 10/16/18 10/17/18 14:59 22:59 06:59 Intake Total 1100 ml 966 ml Output Total 3350 ml 1975 ml 560 ml Balance -3350 ml -875 ml 406 ml SANDRA OROURKE MD October 17, 2018 09:17
--- NOTE | 2018-10-17 10:19 | PDOC4 ---
PROCEDURE Procedure EGD/PEG Indication: OP dysphagia/prolonged ventilation Meds: Versed drip, no additional. Findings: E--Normal G--erosions atop rugae c/w stress lesions. NG tube ecchymoses, body. D--Normal bulb --20F g-tube placed uneventfully. Brief re-scope confirms good position. Ernestine. well. IMP: Stress gastritis. Successful PEG. REC: May have meds, water per tube now. OK to start feedings later today. Resume heparin . Thanks. GLORIA NAVA MD October 17, 2018 10:19
[2018-10-17 10:30] LABS: FIO2 ABG 35
--- NOTE | 2018-10-17 11:08 | PDOC ---
SUBJECTIVE ROS Stable, BP Lower OBJECTIVE Vital Signs Vital Signs Date Time Temp Pulse Resp B/P (MAP) Pulse Ox O2 Delivery O2 Flow Rate FiO2 10/17/18 10:00 68 22 129/56 (80) 97 Ventilator 10/17/18 08:00 98.0 98.0 I & 0 Intake and Output 10/17/18 06:59 Intake Total 2066 ml Output Total 5885 ml Balance -3819 ml Intake Oral 0 ml IV Total 2066 ml Output Urine Total 5885 ml PHYSICAL EXAM Physical Exam GENERAL: NAD HENT: , trach, OGT LUNGS: Clear CV: S1 S2 irregular ABD: Obese, soft, NT, BS present : Jeffers in place EXT: 1 + edema lower extremities, bilaterally. 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 DIAGNOSIS/ASSESSMENT Assessment & Plan ALEX - resolved Good UOP E-Lytes and acid base stable Recommend Holding lasix Hypernatremia-Mild monitor, Hold off Diuretics CKD stage 3 - Pneumonia + mycoplasma UTI - On abx NSTEMI Hypotension off Levophed gtt BP low Recommend holding diuretics Acute encephalopathy Acute respiratory failure s/p intubation For Trach today COPD, O2 dependent COMMENT/RELEVANT DATA Meds Current Medications Medications (Trade) Dose Ordered Sig/Eric Start Time Stop Time Status Last Admin Dose Admin Acetaminophen (Tylenol) 650 mg PRN Q6HRS PRN 10/07/18 12:45 10/08/18 08:25 650 MG Albuterol Sulfate (Ventolin Neb Soln) 2.5 mg PRN Q2HR PRN 10/07/18 15:00 Albuterol/ Ipratropium (Duoneb) 3 ml RTQID 10/07/18 16:00 10/17/18 07:26 3 ML Amlodipine Besylate (Norvasc) 5 mg DAILY 10/12/18 12:30 10/16/18 10:15 5 MG Aspirin (Ecotrin) 81 mg [id number] 10/10/18 08:00 10/16/18 10:15 81 MG Bisacodyl (Dulcolax Supp) 10 mg PRN DAILY PRN 10/15/18 13:30 10/15/18 13:43 10 MG Calcium Gluconate (Calcium Gluconate) 1,000 mg 1X ONCE 10/07/18 13:30 10/07/18 13:31 Cancel Calcium Gluconate 1000 mg/Sodium Chloride 110 ml @ 220 mls/hr 1X ONCE 10/07/18 15:00 10/07/18 15:29 DC 10/07/18 14:23 220 MLS/HR Dextrose (Dextrose 50%-Water Syringe) 12.5 gm PRN Q15MIN PRN 10/07/18 12:45 Doxycycline Hyclate 100 mg/ Dextrose 100 ml @ 50 mls/hr Q12HR 10/09/18 13:00 10/16/18 21:24 50 MLS/HR Etomidate (Amidate) 20 mg 1X ONCE 10/07/18 11:30 10/07/18 11:33 DC 10/07/18 11:01 20 MG Famotidine (Pepcid Vial) 20 mg QHS 10/08/18 21:00 10/16/18 21:24 20 MG Fentanyl Citrate (Fentanyl 2ml Vial) 100 mcg STK-MED ONCE 10/16/18 12:36 10/16/18 12:37 DC Furosemide (Lasix) 40 mg DAILY 10/12/18 12:30 10/16/18 10:18 40 MG Glycopyrrolate (Robinul) 1 mg STK-MED ONCE 10/16/18 13:27 10/16/18 13:28 DC Heparin Sodium (Porcine) (Heparin Sodium) 5,000 unit Q8HRS 10/07/18 14:00 10/16/18 21:30 5,000 UNIT Hydralazine HCl (Apresoline Inj) 10 mg PRN Q4HRS PRN 10/12/18 11:45 Hydromorphone HCl (Dilaudid) 0.5 mg PRN Q10MIN PRN 10/16/18 07:00 10/17/18 06:59 DC Insulin Glargine (Lantus) 10 units QHS 10/13/18 21:00 10/15/18 20:59 10 UNITS Insulin Human Lispro (HumaLOG) 0-9 UNITS Q6HRS 10/07/18 18:00 10/15/18 17:47 5 UNITS Insulin Human Regular (HumuLIN R VIAL) 10 unit 1X ONCE 10/07/18 12:45 10/07/18 12:46 DC 10/07/18 13:00 10 UNIT Lactobacillus Rhamnosus (Culturelle) 1 cap BID 10/08/18 09:00 10/09/18 15:58 DC Levofloxacin/ Dextrose 150 ml @ 100 mls/hr Q48H 10/09/18 12:00 10/09/18 12:00 DC Levofloxacin/ Dextrose (Levaquin Per Pharmacy) 1 each PRN DAILY PRN 10/07/18 12:45 10/08/18 07:33 DC Lidocaine HCl (Xylocaine-Mpf 1% 2ml Vial) 2 ml PRN 1X PRN 10/16/18 07:00 10/17/18 06:59 DC Linezolid/Dextrose 300 ml @ 300 mls/hr Q12HR 10/08/18 11:30 10/10/18 07:24 DC 10/09/18 20:58 300 MLS/HR Lisinopril (Prinivil) 10 mg DAILY 10/11/18 14:00 10/15/18 09:46 DC 10/14/18 08:03 10 MG Meropenem 500 mg/ Sodium Chloride 50 ml @ 100 mls/hr Q8HRS 10/07/18 17:00 10/17/18 05:19 100 MLS/HR Methylprednisolone Sodium Succinate (SOLU-Medrol 40MG VIAL) 40 mg DAILY 10/16/18 09:00 10/16/18 10:19 40 MG Methylprednisolone Sodium Succinate (SOLU-Medrol 125MG VIAL) 125 mg 1X ONCE 10/07/18 12:00 10/07/18 12:01 DC 10/07/18 11:52 125 MG Midazolam HCl (Versed) 2 mg STK-MED ONCE 10/16/18 12:36 10/16/18 12:37 DC Morphine Sulfate (Morphine Sulfate) 1 mg PRN Q10MIN PRN 10/16/18 07:00 10/17/18 06:59 DC Neostigmine Methylsulfate (Neostigmine Methylsulfate) 5 mg STK-MED ONCE 10/16/18 13:27 10/16/18 13:28 DC Norepinephrine Bitartrate 250 ml @ 1.875 mls/ hr CONT PRN 10/07/18 14:00 10/07/18 14:01 13.125 MLS/HR Ondansetron HCl (Zofran) 4 mg PRN Q6HRS PRN 10/16/18 07:00 10/17/18 06:59 DC Pantoprazole Sodium (PROTONIX VIAL for IV PUSH) 40 mg STK-MED ONCE 10/07/18 12:52 10/07/18 12:55 DC Prochlorperazine Edisylate (Compazine) 5 mg PACU PRN PRN 10/16/18 07:00 10/17/18 06:59 DC Ringer's Solution 1,000 ml @ 50 mls/hr Q20H 10/17/18 07:00 10/17/18 18:59 Rocuronium Kimball (Zemuron) 50 mg STK-MED ONCE 10/16/18 12:36 10/16/18 12:37 DC Sevoflurane (Ultane) 30 ml STK-MED ONCE 10/16/18 13:36 10/16/18 13:37 DC Sodium Polystyrene Sulfonate (Kayexalate) 15 gm 1X ONCE 10/07/18 13:30 10/07/18 13:31 DC 10/07/18 14:10 15 GM Sodium Bicarbonate (Sodium Bicarb Adult 8.4% Syr) 50 meq 1X ONCE 10/07/18 12:45 10/07/18 12:46 DC 10/07/18 13:07 50 MEQ Sodium Chloride 1,000 ml @ 75 mls/hr [id number] 10/15/18 11:45 10/17/18 05:19 75 MLS/HR Succinylcholine Chloride (Anectine) 100 mg 1X ONCE 10/07/18 11:30 10/07/18 11:33 DC 10/07/18 11:01 100 MG Vancomycin HCl 250 ml @ 250 mls/hr 1X ONCE 10/07/18 12:00 10/07/18 12:59 DC 10/07/18 12:27 250 MLS/HR Lab Laboratory Tests Test 10/16/18 12:12 10/16/18 18:15 10/16/18 21:27 10/16/18 23:42 Glucose (Fingerstick) 135 mg/dL (70-99) 139 mg/dL (70-99) 126 mg/dL (70-99) 134 mg/dL (70-99) Test 10/17/18 05:18 10/17/18 05:30 10/17/18 08:35 Glucose (Fingerstick) 169 mg/dL (70-99) White Blood Count 11.4 x10^3/uL (4.0-11.0) Red Blood Count 3.70 x10^6/uL (4.30-5.70) Hemoglobin 11.1 g/dL (13.0-17.5) Hematocrit 34.0 % (39.0-53.0) Mean Corpuscular Volume 92 fL (79-100) Mean Corpuscular Hemoglobin 30 pg (25-35) Mean Corpuscular Hemoglobin Concent 33 g/dL (31-37) Red Cell Distribution Width 16.2 % (11.5-14.5) Platelet Count 125 x10^3/uL (140-400) Neutrophils (%) (Auto) 85 % (31-73) Lymphocytes (%) (Auto) 8 % (24-48) Monocytes (%) (Auto) 5 % (0-9) Eosinophils (%) (Auto) 2 % (0-3) Basophils (%) (Auto) 0 % (0-3) Neutrophils # (Auto) 9.7 x10^3uL (1.8-7.7) Lymphocytes # (Auto) 0.9 x10^3/uL (1.0-4.8) Monocytes # (Auto) 0.6 x10^3/uL (0.0-1.1) Eosinophils # (Auto) 0.2 x10^3/uL (0.0-0.7) Basophils # (Auto) 0.0 x10^3/uL (0.0-0.2) Sodium Level 147 mmol/L (136-145) Potassium Level 5.0 mmol/L (3.5-5.1) Chloride Level 109 mmol/L (98-107) Carbon Dioxide Level 34 mmol/L (21-32) Anion Gap 4 (6-14) Blood Urea Nitrogen 53 mg/dL (8-26) Creatinine 1.1 mg/dL (0.7-1.3) Estimated GFR (Cockcroft-Gault) 65.1 BUN/Creatinine Ratio 48 (6-20) Glucose Level 183 mg/dL (70-99) Calcium Level 7.7 mg/dL (8.5-10.1) Total Bilirubin 1.3 mg/dL (0.2-1.0) Aspartate Amino Transf (AST/SGOT) 13 U/L (15-37) Alanine Aminotransferase (ALT/SGPT) 35 U/L (16-63) Alkaline Phosphatase 46 U/L (46-116) Total Protein 5.0 g/dL (6.4-8.2) Albumin 2.1 g/dL (3.4-5.0) Albumin/Globulin Ratio 0.7 (1.0-1.7) O2 Saturation 94 % (92-99) Arterial Blood pH 7.45 (7.35-7.45) Arterial Blood pCO2 at Patient Temp 43 mmHg (35-46) Arterial Blood pO2 at Patient Temp 76 mmHg (65-108) Arterial Blood HCO3 29 mmol/L (21-28) Arterial Blood Base Excess 5 mmol/L (-3-3) FiO2 35 Results All relevant outside records, renal labs, imaging studies, telemetry/EKG's were reviewed. KELLY ANEN MD October 17, 2018 11:08
[2018-10-17] MEDS: DOXYCYCLINE HYCLATE 100 MG in IV DEXTROSE 5% 100ML 100 ML IV SCH (11:31)
[2018-10-17] MEDS: methylPREDNISolone SOD SUCC PF 40 MG/ML VIAL. IV SCH (11:58)
--- NOTE | 2018-10-17 13:37 | PDOC ---
CARDIO Progress Notes Date and Time Date of Service 10/17/2018 Time of Evaluation 1330 Subjective Subjective: Other (nods that he is not in pain, opens eyes with voice) Vitals Vitals Vital Signs Date Time Temp Pulse Resp B/P (MAP) Pulse Ox O2 Delivery O2 Flow Rate FiO2 10/17/18 11:38 96 Ventilator 10/17/18 11:25 21 10/17/18 10:00 68 129/56 (80) 10/17/18 08:00 98.0 98.0 Weight Weight [ ] Input and Output Intake and Output Intake and Output 10/17/18 07:00 Intake Total 2066 ml Output Total 4915 ml Balance -2849 ml Intake Oral 0 ml IV Total 2066 ml Output Urine Total 4915 ml Laboratory Labs Laboratory Tests Test 10/16/18 18:15 10/16/18 21:27 10/16/18 23:42 10/17/18 05:18 Glucose (Fingerstick) 139 mg/dL (70-99) 126 mg/dL (70-99) 134 mg/dL (70-99) 169 mg/dL (70-99) Test 10/17/18 05:30 10/17/18 08:35 10/17/18 12:07 White Blood Count 11.4 x10^3/uL (4.0-11.0) Red Blood Count 3.70 x10^6/uL (4.30-5.70) Hemoglobin 11.1 g/dL (13.0-17.5) Hematocrit 34.0 % (39.0-53.0) Mean Corpuscular Volume 92 fL (79-100) Mean Corpuscular Hemoglobin 30 pg (25-35) Mean Corpuscular Hemoglobin Concent 33 g/dL (31-37) Red Cell Distribution Width 16.2 % (11.5-14.5) Platelet Count 125 x10^3/uL (140-400) Neutrophils (%) (Auto) 85 % (31-73) Lymphocytes (%) (Auto) 8 % (24-48) Monocytes (%) (Auto) 5 % (0-9) Eosinophils (%) (Auto) 2 % (0-3) Basophils (%) (Auto) 0 % (0-3) Neutrophils # (Auto) 9.7 x10^3uL (1.8-7.7) Lymphocytes # (Auto) 0.9 x10^3/uL (1.0-4.8) Monocytes # (Auto) 0.6 x10^3/uL (0.0-1.1) Eosinophils # (Auto) 0.2 x10^3/uL (0.0-0.7) Basophils # (Auto) 0.0 x10^3/uL (0.0-0.2) Sodium Level 147 mmol/L (136-145) Potassium Level 5.0 mmol/L (3.5-5.1) Chloride Level 109 mmol/L (98-107) Carbon Dioxide Level 34 mmol/L (21-32) Anion Gap 4 (6-14) Blood Urea Nitrogen 53 mg/dL (8-26) Creatinine 1.1 mg/dL (0.7-1.3) Estimated GFR (Cockcroft-Gault) 65.1 BUN/Creatinine Ratio 48 (6-20) Glucose Level 183 mg/dL (70-99) Calcium Level 7.7 mg/dL (8.5-10.1) Total Bilirubin 1.3 mg/dL (0.2-1.0) Aspartate Amino Transf (AST/SGOT) 13 U/L (15-37) Alanine Aminotransferase (ALT/SGPT) 35 U/L (16-63) Alkaline Phosphatase 46 U/L (46-116) Total Protein 5.0 g/dL (6.4-8.2) Albumin 2.1 g/dL (3.4-5.0) Albumin/Globulin Ratio 0.7 (1.0-1.7) O2 Saturation 94 % (92-99) Arterial Blood pH 7.45 (7.35-7.45) Arterial Blood pCO2 at Patient Temp 43 mmHg (35-46) Arterial Blood pO2 at Patient Temp 76 mmHg (65-108) Arterial Blood HCO3 29 mmol/L (21-28) Arterial Blood Base Excess 5 mmol/L (-3-3) FiO2 35 Glucose (Fingerstick) 173 mg/dL (70-99) Microbiology Micro Microbiology 10/07/18 Blood Culture - Final, Complete NO GROWTH AFTER 5 DAYS 10/08/18 - Final, Complete 10/08/18 - Final, Complete 10/08/18 - Final, Complete 10/08/18 - Final, Complete 10/08/18 - Final, Complete 10/08/18 Gram Stain Evaluation - Final, Complete 10/08/18 Sputum Culture - Final, Complete 10/08/18 Sputum Result 1 - Final, Complete 10/07/18 Urine Culture - Final, Complete 10/07/18 Urine Culture Result 1 (ELEN) - Final, Complete 10/07/18 Antimicrobic Susceptibility - Final, Complete Physical Exam HEENT: Neck Supple W Full Motion Chest: Symmetric LUNGS: Other (basilar crackles;vent with trach) Heart: S1S2, RRR (SR/SB), other (distant heart tones) Abdomen: Soft N/T, Other (post PEG placement) Extremities: Other (1-2+ bilateral LE pitting edema) Neurology: other (sedated) Assessment Assessment 1. Acute respiratory failure with COPD, CHF, and pneumonia; S/p trach with vent 2. NSTEMI; peak 0.8. EF at 40% with global hypokinesis, multifactorial. NICM vs ICM 3. Acute diastolic/systolic CHF: improving 4. Sepsis with UTI and pneumonia: BP marginal 5. ALEX; resolved 6. Known sinus bradycardia: lowest in the 40s. no pauses 7. H/o CVA Recommendations 1. Lasix PRN. dose held today 2. Avoid AV mc blocking agents 3. Antibiotics as per ID 4. ACEi prior to discharge. May hold BP meds per BP trend. ASA, statin 5. Will need ischemic workup possibly as an outpt . Placement pending. JEREMIAH CANTRELL APRN October 17, 2018 13:37
--- NOTE | 2018-10-17 13:54 | PDOC ---
Progress Note Subjective Subjective No issues with tracheostomy, no bleeding, good Vt. ROS ROS No nausea No vomiting No pain No rash Vital Sign Vital Signs Vital Signs Date Time Temp Pulse Resp B/P (MAP) Pulse Ox O2 Delivery O2 Flow Rate FiO2 10/17/18 13:25 96 Ventilator 10/17/18 11:25 21 10/17/18 10:00 68 129/56 (80) 10/17/18 08:00 98.0 98.0 Physical Exam PHYSICAL EXAM GENERAL: intubated, trach, sedated, mitts HENT: normal conj. PERRL. ETT, OGT LUNGS: Clear CV: S1 S2 irregular ABD: Obese, soft, NT, BS present : Jeffers in place EXT: 1 + edema lower extremities, bilaterally. No cyanosis. 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 RIJ (10/07) clean Labs Lab Laboratory Tests Test 10/16/18 18:15 10/16/18 21:27 10/16/18 23:42 10/17/18 05:18 Glucose (Fingerstick) 139 mg/dL (70-99) 126 mg/dL (70-99) 134 mg/dL (70-99) 169 mg/dL (70-99) Test 10/17/18 05:30 10/17/18 08:35 10/17/18 12:07 White Blood Count 11.4 x10^3/uL (4.0-11.0) Red Blood Count 3.70 x10^6/uL (4.30-5.70) Hemoglobin 11.1 g/dL (13.0-17.5) Hematocrit 34.0 % (39.0-53.0) Mean Corpuscular Volume 92 fL (79-100) Mean Corpuscular Hemoglobin 30 pg (25-35) Mean Corpuscular Hemoglobin Concent 33 g/dL (31-37) Red Cell Distribution Width 16.2 % (11.5-14.5) Platelet Count 125 x10^3/uL (140-400) Neutrophils (%) (Auto) 85 % (31-73) Lymphocytes (%) (Auto) 8 % (24-48) Monocytes (%) (Auto) 5 % (0-9) Eosinophils (%) (Auto) 2 % (0-3) Basophils (%) (Auto) 0 % (0-3) Neutrophils # (Auto) 9.7 x10^3uL (1.8-7.7) Lymphocytes # (Auto) 0.9 x10^3/uL (1.0-4.8) Monocytes # (Auto) 0.6 x10^3/uL (0.0-1.1) Eosinophils # (Auto) 0.2 x10^3/uL (0.0-0.7) Basophils # (Auto) 0.0 x10^3/uL (0.0-0.2) Sodium Level 147 mmol/L (136-145) Potassium Level 5.0 mmol/L (3.5-5.1) Chloride Level 109 mmol/L (98-107) Carbon Dioxide Level 34 mmol/L (21-32) Anion Gap 4 (6-14) Blood Urea Nitrogen 53 mg/dL (8-26) Creatinine 1.1 mg/dL (0.7-1.3) Estimated GFR (Cockcroft-Gault) 65.1 BUN/Creatinine Ratio 48 (6-20) Glucose Level 183 mg/dL (70-99) Calcium Level 7.7 mg/dL (8.5-10.1) Total Bilirubin 1.3 mg/dL (0.2-1.0) Aspartate Amino Transf (AST/SGOT) 13 U/L (15-37) Alanine Aminotransferase (ALT/SGPT) 35 U/L (16-63) Alkaline Phosphatase 46 U/L (46-116) Total Protein 5.0 g/dL (6.4-8.2) Albumin 2.1 g/dL (3.4-5.0) Albumin/Globulin Ratio 0.7 (1.0-1.7) O2 Saturation 94 % (92-99) Arterial Blood pH 7.45 (7.35-7.45) Arterial Blood pCO2 at Patient Temp 43 mmHg (35-46) Arterial Blood pO2 at Patient Temp 76 mmHg (65-108) Arterial Blood HCO3 29 mmol/L (21-28) Arterial Blood Base Excess 5 mmol/L (-3-3) FiO2 35 Glucose (Fingerstick) 173 mg/dL (70-99) Objective Assessment POD#1, s/p tracheostomy No bleeding, good Vt, no issues Plan Plan of Care OK to downsize tracheostomy in 1 week, depending on pulmonary status D/c all trach sutures in 1 weeks Please call with questions NANCY GRANADOS MD October 17, 2018 13:54
[2018-10-17] MEDS: MIDAZOLAM 100mg/100ml NS BAG 100 ML IV PRN (15:00)
[2018-10-17] MEDS: MORPHINE SULFATE 2 MG/ML VIAL. IV PRN (15:21)
[2018-10-17] MEDS: IV 1/2 NORMAL SALINE 1,000 ML IV SCH (17:15)
--- NOTE | 2018-10-17 19:21 | NUR ---
1500 peg placed and irrigated per order. Restart TF after shift change 10/17 .Continue to hold heparin per order til . Secretions at new trach sight less than past 24H. Sedation w/o change,awarenss w/o change. Continue POC
[2018-10-18] VITALS (23 sets, daily range): BP systolic 82–198; BP diastolic 36–92
[2018-10-18] MEDS: MIDAZOLAM 100mg/100ml NS BAG 100 ML IV PRN ×2 (00:01→18:44)
[2018-10-18] MEDS: HEPARIN for SUB-Q USE 5,000 UNIT/ML VIAL. SQ SCH ×4 (00:03→22:00)
[2018-10-18] MEDS: DOXYCYCLINE HYCLATE 100 MG in IV DEXTROSE 5% 100ML 100 ML IV SCH ×3 (00:04→20:48)
[2018-10-18] MEDS: ATORVASTATIN CALCIUM 10 MG TABLET. PO SCH ×2 (00:08→20:48)
[2018-10-18] MEDS: INSULIN GLARGINE 300 UNITS/3 ML INSULN.PEN. SQ SCH ×2 (00:08→20:54)
[2018-10-18] MEDS: FAMOTIDINE 20 MG/2 ML VIAL IVP SCH ×2 (00:08→20:48)
[2018-10-18] MEDS: MEROPENEM 500 MG in IV NORMAL SALINE 50ML 50 ML IV SCH ×4 (00:13→22:20)
--- NOTE | 2018-10-18 05:21 | PDOC ---
Infectious Disease Note Subjective Subjective pt is awake, feeling good ROS ROS no n/v/d/fever Vital Sign Vital Signs Vital Signs Date Time Temp Pulse Resp B/P (MAP) Pulse Ox O2 Delivery O2 Flow Rate FiO2 10/18/18 04:00 99 Ventilator 10/18/18 03:00 47 22 111/39 (63) 10/18/18 00:01 98.6 98.6 Physical Exam PHYSICAL EXAM GENERAL: intubated, trach, sedated, mitts HENT: normal conj. PERRL. ETT, OGT LUNGS: Clear CV: S1 S2 irregular ABD: Obese, soft, NT, BS present : Jeffers in place EXT: 1 + edema lower extremities, bilaterally. No cyanosis. 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 Labs Lab Laboratory Tests Test 10/17/18 05:30 10/17/18 08:35 10/17/18 12:07 10/18/18 00:05 White Blood Count 11.4 x10^3/uL (4.0-11.0) Red Blood Count 3.70 x10^6/uL (4.30-5.70) Hemoglobin 11.1 g/dL (13.0-17.5) Hematocrit 34.0 % (39.0-53.0) Mean Corpuscular Volume 92 fL (79-100) Mean Corpuscular Hemoglobin 30 pg (25-35) Mean Corpuscular Hemoglobin Concent 33 g/dL (31-37) Red Cell Distribution Width 16.2 % (11.5-14.5) Platelet Count 125 x10^3/uL (140-400) Neutrophils (%) (Auto) 85 % (31-73) Lymphocytes (%) (Auto) 8 % (24-48) Monocytes (%) (Auto) 5 % (0-9) Eosinophils (%) (Auto) 2 % (0-3) Basophils (%) (Auto) 0 % (0-3) Neutrophils # (Auto) 9.7 x10^3uL (1.8-7.7) Lymphocytes # (Auto) 0.9 x10^3/uL (1.0-4.8) Monocytes # (Auto) 0.6 x10^3/uL (0.0-1.1) Eosinophils # (Auto) 0.2 x10^3/uL (0.0-0.7) Basophils # (Auto) 0.0 x10^3/uL (0.0-0.2) Sodium Level 147 mmol/L (136-145) Potassium Level 5.0 mmol/L (3.5-5.1) Chloride Level 109 mmol/L (98-107) Carbon Dioxide Level 34 mmol/L (21-32) Anion Gap 4 (6-14) Blood Urea Nitrogen 53 mg/dL (8-26) Creatinine 1.1 mg/dL (0.7-1.3) Estimated GFR (Cockcroft-Gault) 65.1 BUN/Creatinine Ratio 48 (6-20) Glucose Level 183 mg/dL (70-99) Calcium Level 7.7 mg/dL (8.5-10.1) Total Bilirubin 1.3 mg/dL (0.2-1.0) Aspartate Amino Transf (AST/SGOT) 13 U/L (15-37) Alanine Aminotransferase (ALT/SGPT) 35 U/L (16-63) Alkaline Phosphatase 46 U/L (46-116) Total Protein 5.0 g/dL (6.4-8.2) Albumin 2.1 g/dL (3.4-5.0) Albumin/Globulin Ratio 0.7 (1.0-1.7) O2 Saturation 94 % (92-99) Arterial Blood pH 7.45 (7.35-7.45) Arterial Blood pCO2 at Patient Temp 43 mmHg (35-46) Arterial Blood pO2 at Patient Temp 76 mmHg (65-108) Arterial Blood HCO3 29 mmol/L (21-28) Arterial Blood Base Excess 5 mmol/L (-3-3) FiO2 35 Glucose (Fingerstick) 173 mg/dL (70-99) 116 mg/dL (70-99) Micro Microbiology 10/07/18 Blood Culture - Final, Complete NO GROWTH AFTER 5 DAYS 10/08/18 - Final, Complete 10/08/18 - Final, Complete 10/08/18 - Final, Complete 10/08/18 - Final, Complete 10/08/18 - Final, Complete 10/08/18 Gram Stain Evaluation - Final, Complete 10/08/18 Sputum Culture - Final, Complete 10/08/18 Sputum Result 1 - Final, Complete 10/07/18 Urine Culture - Final, Complete 10/07/18 Urine Culture Result 1 (ELEN) - Final, Complete 10/07/18 Antimicrobic Susceptibility - Final, Complete Objective Assessment Fever - resolved Pneumonia + mycoplasma 10/08 - on Doxy 10/09. Sputum cult - routine raheel/ Strep and Legionella - neg UTI, POA staph sap NSTEMI Lactic acidosis - improved Allergy PCN w/ hives and throat swelling; erythromycin w/ hives. Leukocytosis - on steroids - better Hypotension, now off Levophed gtt Acute encephalopathy - improving Acute respiratory failure s/p intubation ALEX - better COPD, O2 dependent Plan Plan of Care ok to d/c to [facility] antibiotics soon to scale down JEANNE WRAY MD October 18, 2018 05:21
[2018-10-18] MEDS: MORPHINE SULFATE 2 MG/ML VIAL. IV PRN ×2 (06:14→16:28)
[2018-10-18] MEDS: INSULIN LISPRO 300 UNITS/3 ML INSULN.PEN. SQ SCH ×5 (06:33→23:51)
[2018-10-18 06:59] LABS: BASO % 0 % (0-3); EOS # 0.1 x10^3/uL (0.0-0.7); EOS % 1 % (0-3); HEMATOCRIT 32.5 % (39.0-53.0); HEMOGLOBIN 10.6 g/dL (13.0-17.5); LYMPH # 0.8 x10^3/uL (1.0-4.8); LYMPH % 6 % (24-48); MEAN CORPUSCULAR HEMOGLOBIN 30 pg (25-35); MEAN CORPUSCULAR HGB CONC 33 g/dL (31-37); MEAN CORPUSCULAR VOLUME 92 fL (79-100); MONO # 0.6 x10^3/uL (0.0-1.1); MONO % 4 % (0-9); NEUT # 12.5 x10^3uL (1.8-7.7); NEUT % 89 % (31-73); PLATELET COUNT 132 x10^3/uL (140-400); RED BLOOD COUNT 3.52 x10^6/uL (4.30-5.70); RED CELL DISTRIBUTION WIDTH 16.5 % (11.5-14.5); WHITE BLOOD COUNT 13.9 x10^3/uL (4.0-11.0)
[2018-10-18] MEDS: IPRATRPIUM/ALBUTEROL 0.5/2.5MG 3 ML NEBU. NEB SCH ×4 (07:36→19:49)
[2018-10-18 07:53] LABS: BASE EXCESS ABG 0 mmol/L (-3-3); HCO3 ABG 26 mmol/L (21-28); PCO2 ABG 46 mmHg (35-46); PO2 ABG 81 mmHg (65-108); SAT O2 ABG 94 % (92-99)
[2018-10-18 07:58] LABS: ALBUMIN 2.2 g/dL (3.4-5.0); ALBUMIN/GLOBULIN RATIO 0.7 (1.0-1.7); CALCIUM 8.1 mg/dL (8.5-10.1); CREATININE 1.1 mg/dL (0.7-1.3); GFR 65.1; TOTAL BILIRUBIN 1.4 mg/dL (0.2-1.0); TOTAL PROTEIN 5.2 g/dL (6.4-8.2)
[2018-10-18 07:59] LABS: FIO2 ABG 35
[2018-10-18] MEDS: ASPIRIN ENTERIC COATED 81 MG TABLET.DR. PO SCH (08:39)
[2018-10-18] MEDS: FUROSEMIDE 40 MG/4 ML VIAL. IVP SCH (08:40)
[2018-10-18] MEDS: amLODIPine BESYLATE 5 MG TABLET PO SCH (08:40)
[2018-10-18] MEDS: methylPREDNISolone SOD SUCC PF 40 MG/ML VIAL. IV SCH (08:40)
[2018-10-18] MEDS: IV 1/2 NORMAL SALINE 1,000 ML IV SCH (08:48)
--- NOTE | 2018-10-18 08:56 | PDOC ---
PULMONARY PROGRESS NOTES Subjective AWAKENS TO STIMULI S/P TRACH 10/16 Vitals Vital Signs Date Time Temp Pulse Resp B/P (MAP) Pulse Ox O2 Delivery O2 Flow Rate FiO2 10/18/18 08:40 142/45 10/18/18 07:40 98 Ventilator 10/18/18 06:14 22 10/18/18 06:00 45 10/18/18 04:00 99.1 99.1 HEENT: Other (nc at perrl nose clear, orally intubated neck no thyromegaly no lad) Lungs: Clear Cardiovascular: S1, S2 Abdomen: Soft, Non-tender, Other (no mass) Extremities: Other (trace edema) Skin: Warm Labs Laboratory Tests Test 10/16/18 12:12 10/16/18 18:15 10/16/18 21:27 10/16/18 23:42 Glucose (Fingerstick) 135 mg/dL (70-99) 139 mg/dL (70-99) 126 mg/dL (70-99) 134 mg/dL (70-99) Test 10/17/18 05:18 10/17/18 05:30 10/17/18 08:35 10/17/18 12:07 Glucose (Fingerstick) 169 mg/dL (70-99) 173 mg/dL (70-99) White Blood Count 11.4 x10^3/uL (4.0-11.0) Red Blood Count 3.70 x10^6/uL (4.30-5.70) Hemoglobin 11.1 g/dL (13.0-17.5) Hematocrit 34.0 % (39.0-53.0) Mean Corpuscular Volume 92 fL (79-100) Mean Corpuscular Hemoglobin 30 pg (25-35) Mean Corpuscular Hemoglobin Concent 33 g/dL (31-37) Red Cell Distribution Width 16.2 % (11.5-14.5) Platelet Count 125 x10^3/uL (140-400) Neutrophils (%) (Auto) 85 % (31-73) Lymphocytes (%) (Auto) 8 % (24-48) Monocytes (%) (Auto) 5 % (0-9) Eosinophils (%) (Auto) 2 % (0-3) Basophils (%) (Auto) 0 % (0-3) Neutrophils # (Auto) 9.7 x10^3uL (1.8-7.7) Lymphocytes # (Auto) 0.9 x10^3/uL (1.0-4.8) Monocytes # (Auto) 0.6 x10^3/uL (0.0-1.1) Eosinophils # (Auto) 0.2 x10^3/uL (0.0-0.7) Basophils # (Auto) 0.0 x10^3/uL (0.0-0.2) Sodium Level 147 mmol/L (136-145) Potassium Level 5.0 mmol/L (3.5-5.1) Chloride Level 109 mmol/L (98-107) Carbon Dioxide Level 34 mmol/L (21-32) Anion Gap 4 (6-14) Blood Urea Nitrogen 53 mg/dL (8-26) Creatinine 1.1 mg/dL (0.7-1.3) Estimated GFR (Cockcroft-Gault) 65.1 BUN/Creatinine Ratio 48 (6-20) Glucose Level 183 mg/dL (70-99) Calcium Level 7.7 mg/dL (8.5-10.1) Total Bilirubin 1.3 mg/dL (0.2-1.0) Aspartate Amino Transf (AST/SGOT) 13 U/L (15-37) Alanine Aminotransferase (ALT/SGPT) 35 U/L (16-63) Alkaline Phosphatase 46 U/L (46-116) Total Protein 5.0 g/dL (6.4-8.2) Albumin 2.1 g/dL (3.4-5.0) Albumin/Globulin Ratio 0.7 (1.0-1.7) O2 Saturation 94 % (92-99) Arterial Blood pH 7.45 (7.35-7.45) Arterial Blood pCO2 at Patient Temp 43 mmHg (35-46) Arterial Blood pO2 at Patient Temp 76 mmHg (65-108) Arterial Blood HCO3 29 mmol/L (21-28) Arterial Blood Base Excess 5 mmol/L (-3-3) FiO2 35 Test 10/18/18 00:05 10/18/18 06:20 10/18/18 06:30 10/18/18 07:40 Glucose (Fingerstick) 116 mg/dL (70-99) 190 mg/dL (70-99) White Blood Count 13.9 x10^3/uL (4.0-11.0) Red Blood Count 3.52 x10^6/uL (4.30-5.70) Hemoglobin 10.6 g/dL (13.0-17.5) Hematocrit 32.5 % (39.0-53.0) Mean Corpuscular Volume 92 fL (79-100) Mean Corpuscular Hemoglobin 30 pg (25-35) Mean Corpuscular Hemoglobin Concent 33 g/dL (31-37) Red Cell Distribution Width 16.5 % (11.5-14.5) Platelet Count 132 x10^3/uL (140-400) Neutrophils (%) (Auto) 89 % (31-73) Lymphocytes (%) (Auto) 6 % (24-48) Monocytes (%) (Auto) 4 % (0-9) Eosinophils (%) (Auto) 1 % (0-3) Basophils (%) (Auto) 0 % (0-3) Neutrophils # (Auto) 12.5 x10^3uL (1.8-7.7) Lymphocytes # (Auto) 0.8 x10^3/uL (1.0-4.8) Monocytes # (Auto) 0.6 x10^3/uL (0.0-1.1) Eosinophils # (Auto) 0.1 x10^3/uL (0.0-0.7) Basophils # (Auto) 0.0 x10^3/uL (0.0-0.2) Sodium Level 145 mmol/L (136-145) Potassium Level 5.0 mmol/L (3.5-5.1) Chloride Level 109 mmol/L (98-107) Carbon Dioxide Level 30 mmol/L (21-32) Anion Gap 6 (6-14) Blood Urea Nitrogen 52 mg/dL (8-26) Creatinine 1.1 mg/dL (0.7-1.3) Estimated GFR (Cockcroft-Gault) 65.1 BUN/Creatinine Ratio 47 (6-20) Glucose Level 204 mg/dL (70-99) Calcium Level 8.1 mg/dL (8.5-10.1) Total Bilirubin 1.4 mg/dL (0.2-1.0) Aspartate Amino Transf (AST/SGOT) 15 U/L (15-37) Alanine Aminotransferase (ALT/SGPT) 31 U/L (16-63) Alkaline Phosphatase 47 U/L (46-116) Total Protein 5.2 g/dL (6.4-8.2) Albumin 2.2 g/dL (3.4-5.0) Albumin/Globulin Ratio 0.7 (1.0-1.7) O2 Saturation 94 % (92-99) Arterial Blood pH 7.37 (7.35-7.45) Arterial Blood pCO2 at Patient Temp 46 mmHg (35-46) Arterial Blood pO2 at Patient Temp 81 mmHg (65-108) Arterial Blood HCO3 26 mmol/L (21-28) Arterial Blood Base Excess 0 mmol/L (-3-3) FiO2 35 Laboratory Tests Test 10/17/18 12:07 10/18/18 00:05 10/18/18 06:20 10/18/18 06:30 Glucose (Fingerstick) 173 mg/dL (70-99) 116 mg/dL (70-99) 190 mg/dL (70-99) White Blood Count 13.9 x10^3/uL (4.0-11.0) Red Blood Count 3.52 x10^6/uL (4.30-5.70) Hemoglobin 10.6 g/dL (13.0-17.5) Hematocrit 32.5 % (39.0-53.0) Mean Corpuscular Volume 92 fL (79-100) Mean Corpuscular Hemoglobin 30 pg (25-35) Mean Corpuscular Hemoglobin Concent 33 g/dL (31-37) Red Cell Distribution Width 16.5 % (11.5-14.5) Platelet Count 132 x10^3/uL (140-400) Neutrophils (%) (Auto) 89 % (31-73) Lymphocytes (%) (Auto) 6 % (24-48) Monocytes (%) (Auto) 4 % (0-9) Eosinophils (%) (Auto) 1 % (0-3) Basophils (%) (Auto) 0 % (0-3) Neutrophils # (Auto) 12.5 x10^3uL (1.8-7.7) Lymphocytes # (Auto) 0.8 x10^3/uL (1.0-4.8) Monocytes # (Auto) 0.6 x10^3/uL (0.0-1.1) Eosinophils # (Auto) 0.1 x10^3/uL (0.0-0.7) Basophils # (Auto) 0.0 x10^3/uL (0.0-0.2) Sodium Level 145 mmol/L (136-145) Potassium Level 5.0 mmol/L (3.5-5.1) Chloride Level 109 mmol/L (98-107) Carbon Dioxide Level 30 mmol/L (21-32) Anion Gap 6 (6-14) Blood Urea Nitrogen 52 mg/dL (8-26) Creatinine 1.1 mg/dL (0.7-1.3) Estimated GFR (Cockcroft-Gault) 65.1 BUN/Creatinine Ratio 47 (6-20) Glucose Level 204 mg/dL (70-99) Calcium Level 8.1 mg/dL (8.5-10.1) Total Bilirubin 1.4 mg/dL (0.2-1.0) Aspartate Amino Transf (AST/SGOT) 15 U/L (15-37) Alanine Aminotransferase (ALT/SGPT) 31 U/L (16-63) Alkaline Phosphatase 47 U/L (46-116) Total Protein 5.2 g/dL (6.4-8.2) Albumin 2.2 g/dL (3.4-5.0) Albumin/Globulin Ratio 0.7 (1.0-1.7) Test 10/18/18 07:40 O2 Saturation 94 % (92-99) Arterial Blood pH 7.37 (7.35-7.45) Arterial Blood pCO2 at Patient Temp 46 mmHg (35-46) Arterial Blood pO2 at Patient Temp 81 mmHg (65-108) Arterial Blood HCO3 26 mmol/L (21-28) Arterial Blood Base Excess 0 mmol/L (-3-3) FiO2 35 Medications Active Scripts Medications Dose Route/Sig Max Daily Dose Days Date Category Proair Hfa (Albuterol Sulfate) 8.5 Gm Hfa.aer.ad 1 Puff INH PRN Q6HRS PRN 10/07/18 Reported Oxazepam 30 Mg Capsule 30 Mg PO QHS 10/07/18 Reported Impression . 1. Acute on chronic hypoxemic/ hypercapnic respiratory failure, multifactorial. 2. Acute exacerbation of chronic obstructive pulmonary disease. suspect severe COPD 3. Abnormal x-ray improved. 4. Gram-negative, possible gram-positive pneumonia. 5. No history given of diabetes, hypertension or renal failure. 6. History of alcohol intake, discontinued approximately 4 years ago. 7. Possible sepsis POA, improved 8. Positive mycoplasma serology 9. EF 40%, acute sys chf 10. S/P TRACH 10/16 Plan . WEANING IN AM D/W RN AND RT FOLLOW CXR WILL CONTINUE SUPPORT FOLLOW CARD CONTINUE ANTIBX PER ID DIURESE STEROIDS DVT GI PROPH, pepcid, heparin sq ENTERAL FEEDING KRISTI DOMINGUEZ MD October 18, 2018 08:56
--- NOTE | 2018-10-18 09:51 | PDOC ---
SUBJECTIVE ROS Stable OBJECTIVE Vital Signs Vital Signs Date Time Temp Pulse Resp B/P (MAP) Pulse Ox O2 Delivery O2 Flow Rate FiO2 10/18/18 09:33 98 Ventilator 10/18/18 08:40 142/45 10/18/18 06:14 22 10/18/18 06:00 45 10/18/18 04:00 99.1 99.1 I & 0 Intake and Output 10/18/18 06:59 Intake Total 1471 ml Output Total 1395 ml Balance 76 ml Intake Oral 0 ml IV Total 1411 ml Blood Product IV Normal Saline Flush 60 ml Output Urine Total 1395 ml PHYSICAL EXAM Physical Exam GENERAL: NAD HENT: , trach, OGT LUNGS: Clear CV: S1 S2 irregular ABD: Obese, soft, NT, BS present : Jeffers in place EXT: 1 + edema lower extremities, bilaterally. SKIN: warm without rash SCIENTIFIC ARTIST: Sedated, opens eyes DIAGNOSIS/ASSESSMENT Assessment & Plan ALEX - resolved Good UOP E-Lytes and acid base stable Hypernatremia-Mild , resolved monitor, Hold off Diuretics CKD stage 3 - Pneumonia + mycoplasma UTI - On abx NSTEMI Hypotension BP stable Acute encephalopathy Acute respiratory failure s/p intubation For Trach today COPD, O2 dependent Will sign off COMMENT/RELEVANT DATA Meds Current Medications Medications (Trade) Dose Ordered Sig/Eric Start Time Stop Time Status Last Admin Dose Admin Acetaminophen (Tylenol) 650 mg PRN Q6HRS PRN 10/07/18 12:45 10/08/18 08:25 650 MG Albuterol Sulfate (Ventolin Neb Soln) 2.5 mg PRN Q2HR PRN 10/07/18 15:00 Albuterol/ Ipratropium (Duoneb) 3 ml RTQID 10/07/18 16:00 10/18/18 07:36 3 ML Amlodipine Besylate (Norvasc) 5 mg DAILY 10/12/18 12:30 10/18/18 08:40 5 MG Aspirin (Children'S Aspirin) 81 mg DAILYWBKFT 10/19/18 08:00 Aspirin (Ecotrin) 81 mg DAILYWBKFT 10/10/18 08:00 10/18/18 09:01 DC 10/18/18 08:39 81 MG Atorvastatin Calcium (Lipitor) 10 mg QHS 10/17/18 21:00 10/18/18 00:08 10 MG Bisacodyl (Dulcolax Supp) 10 mg PRN DAILY PRN 10/15/18 13:30 10/15/18 13:43 10 MG Calcium Gluconate (Calcium Gluconate) 1,000 mg 1X ONCE 10/07/18 13:30 10/07/18 13:31 Cancel Calcium Gluconate 1000 mg/Sodium Chloride 110 ml @ 220 mls/hr 1X ONCE 10/07/18 15:00 10/07/18 15:29 DC 10/07/18 14:23 220 MLS/HR Dextrose (Dextrose 50%-Water Syringe) 12.5 gm PRN Q15MIN PRN 10/07/18 12:45 Doxycycline Hyclate 100 mg/ Dextrose 100 ml @ 50 mls/hr Q12HR 10/09/18 13:00 10/18/18 08:45 50 MLS/HR Etomidate (Amidate) 20 mg 1X ONCE 10/07/18 11:30 10/07/18 11:33 DC 10/07/18 11:01 20 MG Famotidine (Pepcid Vial) 20 mg QHS 10/08/18 21:00 10/18/18 00:08 20 MG Fentanyl Citrate (Fentanyl 2ml Vial) 100 mcg STK-MED ONCE 10/16/18 12:36 10/16/18 12:37 DC Furosemide (Lasix) 40 mg DAILY 10/12/18 12:30 10/18/18 08:40 40 MG Glycopyrrolate (Robinul) 1 mg STK-MED ONCE 10/16/18 13:27 10/16/18 13:28 DC Heparin Sodium (Porcine) (Heparin Sodium) 5,000 unit Q8HRS 10/07/18 14:00 10/18/18 06:11 5,000 UNIT Hydralazine HCl (Apresoline Inj) 10 mg PRN Q4HRS PRN 10/12/18 11:45 Hydromorphone HCl (Dilaudid) 0.5 mg PRN Q10MIN PRN 10/16/18 07:00 10/17/18 06:59 DC Insulin Glargine (Lantus) 10 units QHS 10/13/18 21:00 10/18/18 00:08 10 UNITS Insulin Human Lispro (HumaLOG) 0-9 UNITS Q6HRS 10/07/18 18:00 10/18/18 06:33 4 UNITS Insulin Human Regular (HumuLIN R VIAL) 10 unit 1X ONCE 10/07/18 12:45 10/07/18 12:46 DC 10/07/18 13:00 10 UNIT Lactobacillus Rhamnosus (Culturelle) 1 cap BID 10/08/18 09:00 10/09/18 15:58 DC Levofloxacin/ Dextrose 150 ml @ 100 mls/hr Q48H 10/09/18 12:00 10/09/18 12:00 DC Levofloxacin/ Dextrose (Levaquin Per Pharmacy) 1 each PRN DAILY PRN 10/07/18 12:45 10/08/18 07:33 DC Lidocaine HCl (Xylocaine-Mpf 1% 2ml Vial) 2 ml PRN 1X PRN 10/16/18 07:00 10/17/18 06:59 DC Linezolid/Dextrose 300 ml @ 300 mls/hr Q12HR 10/08/18 11:30 10/10/18 07:24 DC 10/09/18 20:58 300 MLS/HR Lisinopril (Prinivil) 10 mg DAILY 10/11/18 14:00 10/15/18 09:46 DC 10/14/18 08:03 10 MG Meropenem 500 mg/ Sodium Chloride 50 ml @ 100 mls/hr Q8HRS 10/07/18 17:00 10/18/18 06:13 100 MLS/HR Methylprednisolone Sodium Succinate (SOLU-Medrol 40MG VIAL) 40 mg DAILY 10/16/18 09:00 10/18/18 08:40 40 MG Methylprednisolone Sodium Succinate (SOLU-Medrol 125MG VIAL) 125 mg 1X ONCE 10/07/18 12:00 10/07/18 12:01 DC 10/07/18 11:52 125 MG Midazolam HCl (Versed) 2 mg STK-MED ONCE 10/16/18 12:36 10/16/18 12:37 DC Morphine Sulfate (Morphine Sulfate) 1 mg PRN Q10MIN PRN 10/16/18 07:00 10/17/18 06:59 DC Neostigmine Methylsulfate (Neostigmine Methylsulfate) 5 mg STK-MED ONCE 10/16/18 13:27 10/16/18 13:28 DC Norepinephrine Bitartrate 250 ml @ 1.875 mls/ hr CONT PRN 10/07/18 14:00 10/07/18 14:01 13.125 MLS/HR Ondansetron HCl (Zofran) 4 mg PRN Q6HRS PRN 10/16/18 07:00 10/17/18 06:59 DC Pantoprazole Sodium (PROTONIX VIAL for IV PUSH) 40 mg STK-MED ONCE 10/07/18 12:52 10/07/18 12:55 DC Prochlorperazine Edisylate (Compazine) 5 mg PACU PRN PRN 10/16/18 07:00 10/17/18 06:59 DC Ringer's Solution 1,000 ml @ 50 mls/hr Q20H 10/17/18 07:00 10/17/18 18:59 DC Rocuronium Hodge (Zemuron) 50 mg STK-MED ONCE 10/16/18 12:36 10/16/18 12:37 DC Sevoflurane (Ultane) 30 ml STK-MED ONCE 10/16/18 13:36 10/16/18 13:37 DC Sodium Polystyrene Sulfonate (Kayexalate) 15 gm 1X ONCE 10/07/18 13:30 10/07/18 13:31 DC 10/07/18 14:10 15 GM Sodium Bicarbonate (Sodium Bicarb Adult 8.4% Syr) 50 meq 1X ONCE 10/07/18 12:45 10/07/18 12:46 DC 10/07/18 13:07 50 MEQ Sodium Chloride 1,000 ml @ 75 mls/hr [id number] 10/17/18 17:15 10/18/18 08:48 75 MLS/HR Succinylcholine Chloride (Anectine) 100 mg 1X ONCE 10/07/18 11:30 10/07/18 11:33 DC 10/07/18 11:01 100 MG Vancomycin HCl 250 ml @ 250 mls/hr 1X ONCE 10/07/18 12:00 10/07/18 12:59 DC 10/07/18 12:27 250 MLS/HR Lab Laboratory Tests Test 10/17/18 12:07 10/18/18 00:05 10/18/18 06:20 10/18/18 06:30 Glucose (Fingerstick) 173 mg/dL (70-99) 116 mg/dL (70-99) 190 mg/dL (70-99) White Blood Count 13.9 x10^3/uL (4.0-11.0) Red Blood Count 3.52 x10^6/uL (4.30-5.70) Hemoglobin 10.6 g/dL (13.0-17.5) Hematocrit 32.5 % (39.0-53.0) Mean Corpuscular Volume 92 fL (79-100) Mean Corpuscular Hemoglobin 30 pg (25-35) Mean Corpuscular Hemoglobin Concent 33 g/dL (31-37) Red Cell Distribution Width 16.5 % (11.5-14.5) Platelet Count 132 x10^3/uL (140-400) Neutrophils (%) (Auto) 89 % (31-73) Lymphocytes (%) (Auto) 6 % (24-48) Monocytes (%) (Auto) 4 % (0-9) Eosinophils (%) (Auto) 1 % (0-3) Basophils (%) (Auto) 0 % (0-3) Neutrophils # (Auto) 12.5 x10^3uL (1.8-7.7) Lymphocytes # (Auto) 0.8 x10^3/uL (1.0-4.8) Monocytes # (Auto) 0.6 x10^3/uL (0.0-1.1) Eosinophils # (Auto) 0.1 x10^3/uL (0.0-0.7) Basophils # (Auto) 0.0 x10^3/uL (0.0-0.2) Sodium Level 145 mmol/L (136-145) Potassium Level 5.0 mmol/L (3.5-5.1) Chloride Level 109 mmol/L (98-107) Carbon Dioxide Level 30 mmol/L (21-32) Anion Gap 6 (6-14) Blood Urea Nitrogen 52 mg/dL (8-26) Creatinine 1.1 mg/dL (0.7-1.3) Estimated GFR (Cockcroft-Gault) 65.1 BUN/Creatinine Ratio 47 (6-20) Glucose Level 204 mg/dL (70-99) Calcium Level 8.1 mg/dL (8.5-10.1) Total Bilirubin 1.4 mg/dL (0.2-1.0) Aspartate Amino Transf (AST/SGOT) 15 U/L (15-37) Alanine Aminotransferase (ALT/SGPT) 31 U/L (16-63) Alkaline Phosphatase 47 U/L (46-116) Total Protein 5.2 g/dL (6.4-8.2) Albumin 2.2 g/dL (3.4-5.0) Albumin/Globulin Ratio 0.7 (1.0-1.7) Test 10/18/18 07:40 O2 Saturation 94 % (92-99) Arterial Blood pH 7.37 (7.35-7.45) Arterial Blood pCO2 at Patient Temp 46 mmHg (35-46) Arterial Blood pO2 at Patient Temp 81 mmHg (65-108) Arterial Blood HCO3 26 mmol/L (21-28) Arterial Blood Base Excess 0 mmol/L (-3-3) FiO2 35 Results All relevant outside records, renal labs, imaging studies, telemetry/EKG's were reviewed. KELLY ANNE MD October 18, 2018 09:51
--- NOTE | 2018-10-18 11:21 | PDOC ---
Objective: Vital Signs: Vital Signs Date Time Temp Pulse Resp B/P (MAP) Pulse Ox O2 Delivery O2 Flow Rate FiO2 10/18/18 10:00 48 22 175/77 (109) 98 Ventilator 10/18/18 08:00 99.1 99.1 Labs: Laboratory Tests Test 10/17/18 12:07 10/18/18 00:05 10/18/18 06:20 10/18/18 06:30 Glucose (Fingerstick) 173 mg/dL 116 mg/dL 190 mg/dL White Blood Count 13.9 x10^3/uL Red Blood Count 3.52 x10^6/uL Hemoglobin 10.6 g/dL Hematocrit 32.5 % Mean Corpuscular Volume 92 fL Mean Corpuscular Hemoglobin 30 pg Mean Corpuscular Hemoglobin Concent 33 g/dL Red Cell Distribution Width 16.5 % Platelet Count 132 x10^3/uL Neutrophils (%) (Auto) 89 % Lymphocytes (%) (Auto) 6 % Monocytes (%) (Auto) 4 % Eosinophils (%) (Auto) 1 % Basophils (%) (Auto) 0 % Neutrophils # (Auto) 12.5 x10^3uL Lymphocytes # (Auto) 0.8 x10^3/uL Monocytes # (Auto) 0.6 x10^3/uL Eosinophils # (Auto) 0.1 x10^3/uL Basophils # (Auto) 0.0 x10^3/uL Sodium Level 145 mmol/L Potassium Level 5.0 mmol/L Chloride Level 109 mmol/L Carbon Dioxide Level 30 mmol/L Anion Gap 6 Blood Urea Nitrogen 52 mg/dL Creatinine 1.1 mg/dL Estimated GFR (Cockcroft-Gault) 65.1 BUN/Creatinine Ratio 47 Glucose Level 204 mg/dL Calcium Level 8.1 mg/dL Total Bilirubin 1.4 mg/dL Aspartate Amino Transf (AST/SGOT) 15 U/L Alanine Aminotransferase (ALT/SGPT) 31 U/L Alkaline Phosphatase 47 U/L Total Protein 5.2 g/dL Albumin 2.2 g/dL Albumin/Globulin Ratio 0.7 Test 10/18/18 07:40 O2 Saturation 94 % Arterial Blood pH 7.37 Arterial Blood pCO2 at Patient Temp 46 mmHg Arterial Blood pO2 at Patient Temp 81 mmHg Arterial Blood HCO3 26 mmol/L Arterial Blood Base Excess 0 mmol/L FiO2 35 Imaging: EGD 10/17 E--Normal G--erosions atop rugae c/w stress lesions. NG tube ecchymoses, body. D--Normal bulb --20F g-tube placed uneventfully. Brief re-scope confirms good position. IMP: Stress gastritis. Successful PEG. PE: GEN: NAD - has some bloody gauze on lip LUNGS: trach/vent HEART: RRR ABD: PEG in place, removed gauze from under bumper, feedings running NEURO/PSYCH: sleeping A/P: Resp failure s/p trach, dysphagia s/p PEG -- PEG functioning, continue same per GI. JO-ANN CHONG October 18, 2018 11:21
--- NOTE | 2018-10-18 13:03 | PDOC ---
[employer] PROGRESS NOTE Chief Complaint Chief Complaint Fulminant respiratory failure End-stage COPD Clinical pneumonia MORBID OBESITY Possible sepsis uti Staphylococcus saprophyticus. Greater than 100,000 colony forming units per mL Noncompliance Pneumonia + mycoplasma 10/08 - on Doxy 10/09 hypercapnic resp failure poor prognosis azotemia wants full aggressive care be continued including tracheostomy and PEG tube Trach Tuesday. PEG Tuesday. HOLD LASIX, LISINOPRIL today Fluid bolus 500cc ns x 1 now History of Present Illness History of Present Illness Patient was seen and examined in the intensive care unit He now has a trach and a PEG as of yesterday Discussed with change room attendant chart Vitals Vitals Vital Signs Date Time Temp Pulse Resp B/P (MAP) Pulse Ox O2 Delivery O2 Flow Rate FiO2 10/18/18 12:00 Mechanical Ventilator 10/18/18 12:00 98.3 61 22 169/68 (101) 97 98.3 Physical Exam Physical Exam GENERAL: intubated, trach, sedated, mitts HENT: normal conj. PERRL. ETT, OGT LUNGS: Clear CV: S1 S2 irregular ABD: Obese, soft, NT, BS present has a PEG feeding running : Jeffers in place EXT: 1 + edema lower extremities, bilaterally. No cyanosis. 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: awake, no focal deficit General: No acute distress, Other Heart: Regular rate, Normal S1, Normal S2 Lungs: Clear, Other (DECREASE BS) Abdomen: Soft, No tenderness Extremities: No cyanosis, Other (trace edema) Skin: No significant lesion Labs Labs: Laboratory Tests Test 10/18/18 00:05 10/18/18 06:20 10/18/18 06:30 10/18/18 07:40 Glucose (Fingerstick) 116 mg/dL (70-99) 190 mg/dL (70-99) White Blood Count 13.9 x10^3/uL (4.0-11.0) Red Blood Count 3.52 x10^6/uL (4.30-5.70) Hemoglobin 10.6 g/dL (13.0-17.5) Hematocrit 32.5 % (39.0-53.0) Mean Corpuscular Volume 92 fL (79-100) Mean Corpuscular Hemoglobin 30 pg (25-35) Mean Corpuscular Hemoglobin Concent 33 g/dL (31-37) Red Cell Distribution Width 16.5 % (11.5-14.5) Platelet Count 132 x10^3/uL (140-400) Neutrophils (%) (Auto) 89 % (31-73) Lymphocytes (%) (Auto) 6 % (24-48) Monocytes (%) (Auto) 4 % (0-9) Eosinophils (%) (Auto) 1 % (0-3) Basophils (%) (Auto) 0 % (0-3) Neutrophils # (Auto) 12.5 x10^3uL (1.8-7.7) Lymphocytes # (Auto) 0.8 x10^3/uL (1.0-4.8) Monocytes # (Auto) 0.6 x10^3/uL (0.0-1.1) Eosinophils # (Auto) 0.1 x10^3/uL (0.0-0.7) Basophils # (Auto) 0.0 x10^3/uL (0.0-0.2) Sodium Level 145 mmol/L (136-145) Potassium Level 5.0 mmol/L (3.5-5.1) Chloride Level 109 mmol/L (98-107) Carbon Dioxide Level 30 mmol/L (21-32) Anion Gap 6 (6-14) Blood Urea Nitrogen 52 mg/dL (8-26) Creatinine 1.1 mg/dL (0.7-1.3) Estimated GFR (Cockcroft-Gault) 65.1 BUN/Creatinine Ratio 47 (6-20) Glucose Level 204 mg/dL (70-99) Calcium Level 8.1 mg/dL (8.5-10.1) Total Bilirubin 1.4 mg/dL (0.2-1.0) Aspartate Amino Transf (AST/SGOT) 15 U/L (15-37) Alanine Aminotransferase (ALT/SGPT) 31 U/L (16-63) Alkaline Phosphatase 47 U/L (46-116) Total Protein 5.2 g/dL (6.4-8.2) Albumin 2.2 g/dL (3.4-5.0) Albumin/Globulin Ratio 0.7 (1.0-1.7) O2 Saturation 94 % (92-99) Arterial Blood pH 7.37 (7.35-7.45) Arterial Blood pCO2 at Patient Temp 46 mmHg (35-46) Arterial Blood pO2 at Patient Temp 81 mmHg (65-108) Arterial Blood HCO3 26 mmol/L (21-28) Arterial Blood Base Excess 0 mmol/L (-3-3) FiO2 35 Review of Systems Review of Systems Unable to obtain patient is sleeping doesn't wake up much Assessment and Plan Assessmemt and Plan Problems Medical Problems: (1) Acute respiratory distress Status: Acute (2) CAP (community acquired pneumonia) Status: Acute (3) CHF (congestive heart failure) Status: Acute (4) Elevated liver function testsFulminant respiratory failure End-stage COPD Clinical pneumonia MORBID OBESITY Possible sepsis uti Staphylococcus saprophyticus. Greater than 100,000 colony forming units per mL Noncompliance Pneumonia + mycoplasma 10/08 - on Doxy 10/09 hypercapnic resp failure poor prognosis azotemia Plan Vent weaning ICU monitoring PEG feeds DVT prophylaxis Home meds IV antibiotics and steroids per pulmonary Frequent labs Awaiting transfer to LTAC Total time 31 minutes Status: Acute (5) Elevated troponin I level Status: Acute (6) Hyperkalemia Status: Acute (7) Renal insufficiency Status: Acute (8) Sepsis Status: Acute (9) Unresponsiveness Status: Acute (10) Urinary tract infection Status: Acute Comment Review of Relevant I have reviewed the following items akbar (where applicable) has been applied. Labs Laboratory Tests Test 10/16/18 18:15 10/16/18 21:27 10/16/18 23:42 10/17/18 05:18 Glucose (Fingerstick) 139 mg/dL (70-99) 126 mg/dL (70-99) 134 mg/dL (70-99) 169 mg/dL (70-99) Test 10/17/18 05:30 10/17/18 08:35 10/17/18 12:07 10/18/18 00:05 White Blood Count 11.4 x10^3/uL (4.0-11.0) Red Blood Count 3.70 x10^6/uL (4.30-5.70) Hemoglobin 11.1 g/dL (13.0-17.5) Hematocrit 34.0 % (39.0-53.0) Mean Corpuscular Volume 92 fL (79-100) Mean Corpuscular Hemoglobin 30 pg (25-35) Mean Corpuscular Hemoglobin Concent 33 g/dL (31-37) Red Cell Distribution Width 16.2 % (11.5-14.5) Platelet Count 125 x10^3/uL (140-400) Neutrophils (%) (Auto) 85 % (31-73) Lymphocytes (%) (Auto) 8 % (24-48) Monocytes (%) (Auto) 5 % (0-9) Eosinophils (%) (Auto) 2 % (0-3) Basophils (%) (Auto) 0 % (0-3) Neutrophils # (Auto) 9.7 x10^3uL (1.8-7.7) Lymphocytes # (Auto) 0.9 x10^3/uL (1.0-4.8) Monocytes # (Auto) 0.6 x10^3/uL (0.0-1.1) Eosinophils # (Auto) 0.2 x10^3/uL (0.0-0.7) Basophils # (Auto) 0.0 x10^3/uL (0.0-0.2) Sodium Level 147 mmol/L (136-145) Potassium Level 5.0 mmol/L (3.5-5.1) Chloride Level 109 mmol/L (98-107) Carbon Dioxide Level 34 mmol/L (21-32) Anion Gap 4 (6-14) Blood Urea Nitrogen 53 mg/dL (8-26) Creatinine 1.1 mg/dL (0.7-1.3) Estimated GFR (Cockcroft-Gault) 65.1 BUN/Creatinine Ratio 48 (6-20) Glucose Level 183 mg/dL (70-99) Calcium Level 7.7 mg/dL (8.5-10.1) Total Bilirubin 1.3 mg/dL (0.2-1.0) Aspartate Amino Transf (AST/SGOT) 13 U/L (15-37) Alanine Aminotransferase (ALT/SGPT) 35 U/L (16-63) Alkaline Phosphatase 46 U/L (46-116) Total Protein 5.0 g/dL (6.4-8.2) Albumin 2.1 g/dL (3.4-5.0) Albumin/Globulin Ratio 0.7 (1.0-1.7) O2 Saturation 94 % (92-99) Arterial Blood pH 7.45 (7.35-7.45) Arterial Blood pCO2 at Patient Temp 43 mmHg (35-46) Arterial Blood pO2 at Patient Temp 76 mmHg (65-108) Arterial Blood HCO3 29 mmol/L (21-28) Arterial Blood Base Excess 5 mmol/L (-3-3) FiO2 35 Glucose (Fingerstick) 173 mg/dL (70-99) 116 mg/dL (70-99) Test 10/18/18 06:20 10/18/18 06:30 10/18/18 07:40 White Blood Count 13.9 x10^3/uL (4.0-11.0) Red Blood Count 3.52 x10^6/uL (4.30-5.70) Hemoglobin 10.6 g/dL (13.0-17.5) Hematocrit 32.5 % (39.0-53.0) Mean Corpuscular Volume 92 fL (79-100) Mean Corpuscular Hemoglobin 30 pg (25-35) Mean Corpuscular Hemoglobin Concent 33 g/dL (31-37) Red Cell Distribution Width 16.5 % (11.5-14.5) Platelet Count 132 x10^3/uL (140-400) Neutrophils (%) (Auto) 89 % (31-73) Lymphocytes (%) (Auto) 6 % (24-48) Monocytes (%) (Auto) 4 % (0-9) Eosinophils (%) (Auto) 1 % (0-3) Basophils (%) (Auto) 0 % (0-3) Neutrophils # (Auto) 12.5 x10^3uL (1.8-7.7) Lymphocytes # (Auto) 0.8 x10^3/uL (1.0-4.8) Monocytes # (Auto) 0.6 x10^3/uL (0.0-1.1) Eosinophils # (Auto) 0.1 x10^3/uL (0.0-0.7) Basophils # (Auto) 0.0 x10^3/uL (0.0-0.2) Sodium Level 145 mmol/L (136-145) Potassium Level 5.0 mmol/L (3.5-5.1) Chloride Level 109 mmol/L (98-107) Carbon Dioxide Level 30 mmol/L (21-32) Anion Gap 6 (6-14) Blood Urea Nitrogen 52 mg/dL (8-26) Creatinine 1.1 mg/dL (0.7-1.3) Estimated GFR (Cockcroft-Gault) 65.1 BUN/Creatinine Ratio 47 (6-20) Glucose Level 204 mg/dL (70-99) Calcium Level 8.1 mg/dL (8.5-10.1) Total Bilirubin 1.4 mg/dL (0.2-1.0) Aspartate Amino Transf (AST/SGOT) 15 U/L (15-37) Alanine Aminotransferase (ALT/SGPT) 31 U/L (16-63) Alkaline Phosphatase 47 U/L (46-116) Total Protein 5.2 g/dL (6.4-8.2) Albumin 2.2 g/dL (3.4-5.0) Albumin/Globulin Ratio 0.7 (1.0-1.7) Glucose (Fingerstick) 190 mg/dL (70-99) O2 Saturation 94 % (92-99) Arterial Blood pH 7.37 (7.35-7.45) Arterial Blood pCO2 at Patient Temp 46 mmHg (35-46) Arterial Blood pO2 at Patient Temp 81 mmHg (65-108) Arterial Blood HCO3 26 mmol/L (21-28) Arterial Blood Base Excess 0 mmol/L (-3-3) FiO2 35 Laboratory Tests Test 10/18/18 00:05 10/18/18 06:20 10/18/18 06:30 10/18/18 07:40 Glucose (Fingerstick) 116 mg/dL (70-99) 190 mg/dL (70-99) White Blood Count 13.9 x10^3/uL (4.0-11.0) Red Blood Count 3.52 x10^6/uL (4.30-5.70) Hemoglobin 10.6 g/dL (13.0-17.5) Hematocrit 32.5 % (39.0-53.0) Mean Corpuscular Volume 92 fL (79-100) Mean Corpuscular Hemoglobin 30 pg (25-35) Mean Corpuscular Hemoglobin Concent 33 g/dL (31-37) Red Cell Distribution Width 16.5 % (11.5-14.5) Platelet Count 132 x10^3/uL (140-400) Neutrophils (%) (Auto) 89 % (31-73) Lymphocytes (%) (Auto) 6 % (24-48) Monocytes (%) (Auto) 4 % (0-9) Eosinophils (%) (Auto) 1 % (0-3) Basophils (%) (Auto) 0 % (0-3) Neutrophils # (Auto) 12.5 x10^3uL (1.8-7.7) Lymphocytes # (Auto) 0.8 x10^3/uL (1.0-4.8) Monocytes # (Auto) 0.6 x10^3/uL (0.0-1.1) Eosinophils # (Auto) 0.1 x10^3/uL (0.0-0.7) Basophils # (Auto) 0.0 x10^3/uL (0.0-0.2) Sodium Level 145 mmol/L (136-145) Potassium Level 5.0 mmol/L (3.5-5.1) Chloride Level 109 mmol/L (98-107) Carbon Dioxide Level 30 mmol/L (21-32) Anion Gap 6 (6-14) Blood Urea Nitrogen 52 mg/dL (8-26) Creatinine 1.1 mg/dL (0.7-1.3) Estimated GFR (Cockcroft-Gault) 65.1 BUN/Creatinine Ratio 47 (6-20) Glucose Level 204 mg/dL (70-99) Calcium Level 8.1 mg/dL (8.5-10.1) Total Bilirubin 1.4 mg/dL (0.2-1.0) Aspartate Amino Transf (AST/SGOT) 15 U/L (15-37) Alanine Aminotransferase (ALT/SGPT) 31 U/L (16-63) Alkaline Phosphatase 47 U/L (46-116) Total Protein 5.2 g/dL (6.4-8.2) Albumin 2.2 g/dL (3.4-5.0) Albumin/Globulin Ratio 0.7 (1.0-1.7) O2 Saturation 94 % (92-99) Arterial Blood pH 7.37 (7.35-7.45) Arterial Blood pCO2 at Patient Temp 46 mmHg (35-46) Arterial Blood pO2 at Patient Temp 81 mmHg (65-108) Arterial Blood HCO3 26 mmol/L (21-28) Arterial Blood Base Excess 0 mmol/L (-3-3) FiO2 35 Microbiology 5/11/19 Blood Culture - Final, Complete NO GROWTH AFTER 5 DAYS 10/08/18 - Final, Complete 10/08/18 - Final, Complete 10/08/18 - Final, Complete 10/08/18 - Final, Complete 10/08/18 - Final, Complete 10/08/18 Gram Stain Evaluation - Final, Complete 10/08/18 Sputum Culture - Final, Complete 10/08/18 Sputum Result 1 - Final, Complete 10/07/18 Urine Culture - Final, Complete 10/07/18 Urine Culture Result 1 (ELEN) - Final, Complete 10/07/18 Antimicrobic Susceptibility - Final, Complete Medications Current Medications Sodium Chloride 1,000 ml @ 1,000 mls/hr Q1H IV Last administered on 10/07/18at 11:27; Start 10/07/18 at 10:52; Stop 10/07/18 at 11:51; Status DC Midazolam HCl 100 ml @ 1 mls/hr 1X ONCE IV Last administered on 10/07/18at 11:20; Start 10/07/18 at 11:15; Stop 10/09/18 at 15:55; Status DC Etomidate (Amidate) 20 mg STK-MED ONCE IV ; Start 10/07/18 at 11:13; Stop 10/07/18 at 11:14; Status DC Succinylcholine Chloride (Anectine) 200 mg STK-MED ONCE .ROUTE ; Start 10/07/18 at 11:13; Stop 10/07/18 at 11:14; Status DC Etomidate (Amidate) 20 mg 1X ONCE IV Last administered on 10/07/18at 11:01; Start 10/07/18 at 11:30; Stop 10/07/18 at 11:33; Status DC Succinylcholine Chloride (Anectine) 100 mg 1X ONCE IV Last administered on 10/07/18at 11:01; Start 10/07/18 at 11:30; Stop 10/07/18 at 11:33; Status DC Albuterol Sulfate (Ventolin Neb Soln) 10 mg 1X ONCE CONT NEB ; Start 10/07/18 at 12:00; Stop 10/07/18 at 12:01; Status DC Methylprednisolone Sodium Succinate (SOLU-Medrol 125MG VIAL) 125 mg 1X ONCE IV Last administered on 10/07/18at 11:52; Start 10/07/18 at 12:00; Stop 10/07/18 at 12:01; Status DC Vancomycin HCl 250 ml @ 250 mls/hr 1X ONCE IV Last administered on 10/07/18at 12:27; Start 10/07/18 at 12:00; Stop 10/07/18 at 12:59; Status DC Levofloxacin/ Dextrose 150 ml @ 100 mls/hr 1X ONCE IV Last administered on 10/07/18at 12:28; Start 10/07/18 at 12:00; Stop 10/07/18 at 13:29; Status DC Sodium Chloride 1,000 ml @ 1,000 mls/hr 1X ONCE IV Last administered on 10/07/18at 12:57; Start 10/07/18 at 12:45; Stop 10/07/18 at 13:44; Status DC Sodium Chloride 1,000 ml @ 1,000 mls/hr 1X ONCE IV Last administered on 10/07/18at 12:58; Start 10/07/18 at 12:45; Stop 10/07/18 at 13:44; Status DC Dextrose (Dextrose 50%-Water Syringe) 25 gm 1X ONCE IV Last administered on 10/07/18at 12:59; Start 10/07/18 at 12:45; Stop 10/07/18 at 12:46; Status DC Insulin Human Regular (HumuLIN R VIAL) 10 unit 1X ONCE IV Last administered on 10/07/18at 13:00; Start 10/07/18 at 12:45; Stop 10/07/18 at 12:46; Status DC Sodium Bicarbonate (Sodium Bicarb Adult 8.4% Syr) 50 meq 1X ONCE IV Last administered on 10/07/18at 13:07; Start 10/07/18 at 12:45; Stop 10/07/18 at 12:46; Status DC Sodium Chloride 1,000 ml @ 100 mls/hr Q10H IV ; Start 10/07/18 at 16:00; Stop 10/07/18 at 16:00; Status DC Pantoprazole Sodium (PROTONIX VIAL for IV PUSH) 40 mg DAILYAC IVP Last administered on 10/08/18at 08:25; Start 10/07/18 at 13:30; Stop 10/08/18 at 09:54; Status DC Pantoprazole Sodium (PROTONIX VIAL for IV PUSH) 40 mg 1X ONCE IVP ; Start 10/07/18 at 12:45; Stop 10/07/18 at 12:46; Status UNV Heparin Sodium (Porcine) (Heparin Sodium) 5,000 unit Q8HRS SQ Last administered on 10/18/18at 06:11; Start 10/07/18 at 14:00 Levofloxacin/ Dextrose (Levaquin Per Pharmacy) 1 each PRN DAILY PRN MC SEE COMMENTS; Start 10/07/18 at 12:45; Stop 10/08/18 at 07:33; Status DC Insulin Human Lispro (HumaLOG) 0-9 UNITS TIDWMEALS SQ ; Start 10/07/18 at 17:00; Stop 10/07/18 at 17:00; Status DC Dextrose (Dextrose 50%-Water Syringe) 12.5 gm PRN Q15MIN PRN IV SEE COMMENTS; Start 10/07/18 at 12:45 Albuterol/ Ipratropium (Duoneb) 3 ml RTQID NEB ; Start 10/07/18 at 16:00; Status Cancel Methylprednisolone Sodium Succinate (SOLU-Medrol 40MG VIAL) 40 mg Q8HRS IV Last administered on 10/14/18at 05:48; Start 10/07/18 at 22:00; Stop 10/14/18 at 09:29; Status DC Acetaminophen (Tylenol) 650 mg PRN Q6HRS PRN PEG MILD PAIN / TEMP Last administered on 10/08/18at 08:25; Start 10/07/18 at 12:45 Morphine Sulfate (Morphine Sulfate) 2 mg PRN Q2HR PRN IV PAIN, 1ST CHOICE Last administered on 10/18/18at 06:14; Start 10/07/18 at 12:45 Ondansetron HCl (Zofran) 4 mg PRN Q6HRS PRN IV NAUSEA/VOMITING; Start 10/07/18 at 12:45 Norepinephrine Bitartrate 250 ml @ 1.875 mls/ hr CONT PRN IV SEE I/O RECORD Last administered on 10/07/18at 14:01; Start 10/07/18 at 14:00 Sodium Chloride 1,000 ml @ 150 mls/hr Q6H40M IV Last administered on 10/08/18at 15:09; Start 10/07/18 at 14:00; Stop 10/08/18 at 13:59; Status DC Calcium Gluconate (Calcium Gluconate) 1,000 mg 1X ONCE IVP ; Start 10/07/18 at 13:30; Stop 10/07/18 at 13:31; Status Cancel Sodium Polystyrene Sulfonate (Kayexalate) 15 gm 1X ONCE PO Last administered on 10/07/18at 14:10; Start 10/07/18 at 13:30; Stop 10/07/18 at 13:31; Status DC Pantoprazole Sodium (PROTONIX VIAL for IV PUSH) 40 mg STK-MED ONCE IVP ; Start 10/07/18 at 12:52; Stop 10/07/18 at 12:55; Status DC Levofloxacin/ Dextrose 150 ml @ 100 mls/hr Q48H IV ; Start 10/09/18 at 12:00; Stop 10/09/18 at 12:00; Status DC Calcium Gluconate 1000 mg/Sodium Chloride 110 ml @ 220 mls/hr 1X ONCE IV Last administered on 10/07/18at 14:23; Start 10/07/18 at 15:00; Stop 10/07/18 at 15:29; Status DC Sodium Chloride 1,000 ml @ 1,000 mls/hr 1X ONCE IV Last administered on 10/07/18at 14:50; Start 10/07/18 at 15:00; Stop 10/07/18 at 15:59; Status DC Sodium Chloride 1,000 ml @ 999 mls/hr 1X ONCE IV ; Start 10/07/18 at 15:00; Stop 10/07/18 at 16:00; Status DC Albuterol Sulfate (Ventolin Neb Soln) 2.5 mg PRN Q2HR PRN NEB [id number]; Start 10/07/18 at 15:00 Albuterol/ Ipratropium (Duoneb) 3 ml RTQID NEB Last administered on 10/18/18at 11:30; Start 10/07/18 at 16:00 Insulin Human Lispro (HumaLOG) 0-9 UNITS Q6HRS SQ Last administered on 10/18/18at 06:33; Start 10/07/18 at 18:00 Meropenem 500 mg/ Sodium Chloride 50 ml @ 100 mls/hr Q8HRS IV Last administered on 10/18/18at 06:13; Start 10/07/18 at 17:00 Midazolam HCl 100 ml @ 5 mls/hr CONT PRN IV SEE I/O RECORD Last administered on 10/17/18at 15:00; Start 10/08/18 at 04:15 Lactobacillus Rhamnosus (Culturelle) 1 cap BID PO ; Start 10/08/18 at 09:00; Stop 10/09/18 at 15:58; Status DC Famotidine (Pepcid Vial) 20 mg QHS IVP Last administered on 10/18/18at 00:08; Start 10/08/18 at 21:00 Linezolid/Dextrose 300 ml @ 300 mls/hr Q12HR IV Last administered on 10/09/18at 20:58; Start 10/08/18 at 11:30; Stop 10/10/18 at 07:24; Status DC Doxycycline Hyclate 100 mg/ Dextrose 100 ml @ 50 mls/hr Q12HR IV Last administered on 10/18/18at 08:45; Start 10/09/18 at 13:00 Aspirin (Ecotrin) 81 mg DAILYWBKFT PO Last administered on 10/18/18at 08:39; Start 10/10/18 at 08:00; Stop 10/18/18 at 09:01; Status DC Furosemide (Lasix) 40 mg 1X ONCE IVP Last administered on 10/11/18at 08:36; Start 10/11/18 at 09:00; Stop 10/11/18 at 09:01; Status DC Lisinopril (Prinivil) 10 mg DAILY PO Last administered on 10/14/18 08:03; Start 10/11/18 at 14:00; Stop 10/15/18 at 09:46; Status DC Furosemide (Lasix) 40 mg DAILY IVP Last administered on 10/18/18at 08:40; Start 10/12/18 at 12:30 Amlodipine Besylate (Norvasc) 5 mg DAILY PO Last administered on 10/18/18 08:40; Start 10/12/18 at 12:30 Hydralazine HCl (Apresoline Inj) 10 mg PRN Q4HRS PRN IVP ELEVATED BP, SEE COMMENTS; Start 10/12/18 at 11:45 Insulin Glargine (Lantus) 10 units QHS SQ Last administered on 10/18/18at 00:08; Start 10/13/18 at 21:00 Ondansetron HCl (Zofran) 4 mg PRN Q6HRS PRN IV NAUSEA/VOMITING; Start 10/16/18 at 07:00; Stop 10/17/18 at 06:59; Status DC Fentanyl Citrate (Fentanyl 2ml Vial) 25 mcg PRN Q5MIN PRN IV MILD PAIN 1-3; Start 10/16/18 at 07:00; Stop 10/17/18 at 06:59; Status DC Fentanyl Citrate (Fentanyl 2ml Vial) 50 mcg PRN Q5MIN PRN IV MODERATE TO SEVERE PAIN Last administered on 10/17/18at 00:36; Start 10/16/18 at 07:00; Stop 10/17/18 at 06:59; Status DC Morphine Sulfate (Morphine Sulfate) 1 mg PRN Q10MIN PRN IV SEVERE PAIN 7-10; Start 10/16/18 at 07:00; Stop 10/17/18 at 06:59; Status DC Ringer's Solution 1,000 ml @ 30 mls/hr Q24H IV ; Start 10/16/18 at 07:00; Stop 10/16/18 at 18:59; Status DC Lidocaine HCl (Xylocaine-Mpf 1% 2ml Vial) 2 ml PRN 1X PRN ID PRIOR TO IV START; Start 10/16/18 at 07:00; Stop 10/17/18 at 06:59; Status DC Hydromorphone HCl (Dilaudid) 0.5 mg PRN Q10MIN PRN IV SEV PAIN, Second choice; Start 10/16/18 at 07:00; Stop 10/17/18 at 06:59; Status DC Prochlorperazine Edisylate (Compazine) 5 mg PACU PRN PRN IV NAUSEA, MRX1; Start 10/16/18 at 07:00; Stop 10/17/18 at 06:59; Status DC Fentanyl Citrate (Fentanyl 2ml Vial) 50 mcg PRN Q2HR PRN IV PAIN, 2ND CHOICE Last administered on 10/17/18at 11:25; Start 10/14/18 at 00:30 Methylprednisolone Sodium Succinate (SOLU-Medrol 40MG VIAL) 40 mg Q12HR IV Last administered on 10/15/18at 08:28; Start 10/14/18 at 21:00; Stop 10/15/18 at 09:16; Status DC Methylprednisolone Sodium Succinate (SOLU-Medrol 40MG VIAL) 40 mg DAILY IV Last administered on 10/18/18at 08:40; Start 10/16/18 at 09:00 Sodium Chloride 500 ml @ 500 mls/hr 1X ONCE IV Last administered on 10/15/18at 09:59; Start 10/15/18 at 09:30; Stop 10/15/18 at 10:29; Status DC Sodium Chloride 1,000 ml @ 75 mls/hr [id number] IV Last administered on 10/17/18at 05:19; Start 10/15/18 at 11:45; Stop 10/17/18 at 17:11; Status DC Bisacodyl (Dulcolax Supp) 10 mg PRN DAILY PRN [place] CONSTIPATION Last administered on 10/15/18at 13:43; Start 10/15/18 at 13:30 Midazolam HCl (Versed) 2 mg STK-MED ONCE .ROUTE ; Start 10/16/18 at 12:36; Stop 10/16/18 at 12:37; Status DC Fentanyl Citrate (Fentanyl 2ml Vial) 100 mcg STK-MED ONCE .ROUTE ; Start 10/16/18 at 12:36; Stop 10/16/18 at 12:37; Status DC Rocuronium [place] (Zemuron) 50 mg STK-MED ONCE .ROUTE ; Start 10/16/18 at 12:36; Stop 10/16/18 at 12:37; Status DC Neostigmine Methylsulfate (Neostigmine Methylsulfate) 5 mg STK-MED ONCE .ROUTE ; Start 10/16/18 at 13:27; Stop 10/16/18 at 13:28; Status DC Glycopyrrolate (Robinul) 1 mg STK-MED ONCE .ROUTE ; Start 10/16/18 at 13:27; Stop 10/16/18 at 13:28; Status DC Sevoflurane (Ultane) 30 ml STK-MED ONCE IH ; Start 10/16/18 at 13:36; Stop 10/16/18 at 13:37; Status DC Ringer's Solution 1,000 ml @ 50 mls/hr Q20H IV ; Start 10/17/18 at 07:00; Stop 10/17/18 at 18:59; Status DC Atorvastatin Calcium (Lipitor) 10 mg QHS PO Last administered on 10/18/18at 00:08; Start 10/17/18 at 21:00 Sodium Chloride 1,000 ml @ 75 mls/hr [id number] IV Last administered on 10/18/18at 08:48; Start 10/17/18 at 17:15 Aspirin (Children'S Aspirin) 81 mg DAILYWBKFT PO ; Start 10/19/18 at 08:00 Active Scripts Active Reported Proair Hfa (Albuterol Sulfate) 8.5 Gm Hfa.aer.ad 1 Puff INH PRN Q6HRS PRN Oxazepam 30 Mg Capsule 30 Mg PO QHS Vitals/I & O Vital Sign - Last 24 Hours 10/17/18 10/17/18 10/17/18 10/17/18 13:25 14:00 15:00 15:21 Pulse 52 50 Resp 22 22 22 B/P (MAP) 97/54 (68) 117/46 (69) Pulse Ox 96 95 96 96 O2 Delivery Ventilator Ventilator Ventilator 10/17/18 10/17/18 10/17/18 10/17/18 15:52 16:00 16:00 16:00 Pulse 56 Resp 22 22 B/P (MAP) 113/54 (73) Pulse Ox 96 97 O2 Delivery Ventilator Mechanical Ventilator Ventilator 10/17/18 10/17/18 10/17/18 10/17/18 17:00 17:45 18:00 19:00 Pulse 64 55 62 Resp 22 22 22 B/P (MAP) 96/53 (67) 89/47 (61) Pulse Ox 95 96 97 100 O2 Delivery Ventilator Ventilator Ventilator Ventilator 10/17/18 10/17/18 10/17/18 10/17/18 19:28 20:00 20:00 21:00 Temp 98.4 98.4 Pulse 60 60 Resp 22 22 B/P (MAP) 97/78 (84) 110/50 (70) Pulse Ox 98 100 97 O2 Delivery Ventilator Mechanical Ventilator Ventilator Ventilator 10/17/18 10/17/18 10/17/18 10/17/18 21:00 21:20 22:00 23:00 Pulse 56 56 Resp 22 22 B/P (MAP) 124/55 (78) 108/63 (78) Pulse Ox 97 99 99 99 O2 Delivery Ventilator Ventilator Ventilator Ventilator 10/17/18 10/18/18 10/18/18 10/18/18 23:59 00:01 01:00 01:00 Temp 98.6 98.6 Pulse 51 47 Resp B/P (MAP) 132/67 (88) 98/50 (66) Pulse Ox 97 97 96 O2 Delivery Mechanical Ventilator Ventilator Ventilator Ventilator 10/18/18 10/18/18 10/18/18 10/18/18 02:00 03:00 04:00 04:00 Temp 99.1 99.1 Pulse 47 47 45 Resp B/P (MAP) 97/36 (56) 111/39 (63) 105/57 (73) Pulse Ox 97 97 97 O2 Delivery Ventilator Ventilator Mechanical Ventilator Ventilator 10/18/18 10/18/18 10/18/18 10/18/18 04:00 05:00 06:00 06:14 Pulse 45 45 Resp B/P (MAP) 112/44 (66) 114/73 (87) Pulse Ox 99 99 99 99 O2 Delivery Ventilator Ventilator Ventilator 10/18/18 10/18/18 10/18/18 10/18/18 06:44 07:00 07:40 08:00 Pulse 50 Resp 28 B/P (MAP) 140/49 (79) Pulse Ox 98 96 98 O2 Delivery Ventilator Ventilator Mechanical Ventilator 10/18/18 10/18/18 10/18/18 10/18/18 08:00 08:40 09:00 09:33 Temp 99.1 99.1 Pulse 48 48 Resp B/P (MAP) 142/45 (77) 142/45 158/51 (86) Pulse Ox 99 98 98 O2 Delivery Ventilator Ventilator Ventilator 10/18/18 10/18/18 10/18/18 10/18/18 10:00 11:00 11:30 12:00 Temp 98.3 98.3 Pulse 48 50 61 Resp B/P (MAP) 175/77 (109) 166/62 (96) 169/68 (101) Pulse Ox 98 98 98 97 O2 Delivery Ventilator Ventilator Ventilator Ventilator 10/18/18 12:00 O2 Delivery Mechanical Ventilator Intake and Output 10/17/18 10/17/18 10/18/18 15:00 23:00 07:00 Intake Total 0 ml 1471 ml Output Total 530 ml 430 ml 505 ml Balance -530 ml 1041 ml -505 ml [id number] PEREZ III DO October 18, 2018 13:03
--- NOTE | 2018-10-18 13:07 | PDOC ---
JESSICA CORREIA WEB CONTENT PRODUCER 10/18/18 1307: CARDIO Progress Notes Date and Time Date of Service 10/18/18 Time of Evaluation 1240 Subjective Subjective: Other (opens eyes with voice) Vitals Vitals Vital Signs Date Time Temp Pulse Resp B/P (MAP) Pulse Ox O2 Delivery O2 Flow Rate FiO2 10/18/18 12:00 Mechanical Ventilator 10/18/18 12:00 98.3 61 22 169/68 (101) 97 98.3 Weight Weight [ ] Input and Output Intake and Output Intake and Output 10/18/18 07:00 Intake Total 1471 ml Output Total 1465 ml Balance 6 ml Intake Oral 0 ml IV Total 1411 ml Blood Product IV Normal Saline Flush 60 ml Output Urine Total 1465 ml Laboratory Labs Laboratory Tests Test 10/18/18 00:05 10/18/18 06:20 10/18/18 06:30 10/18/18 07:40 Glucose (Fingerstick) 116 mg/dL (70-99) 190 mg/dL (70-99) White Blood Count 13.9 x10^3/uL (4.0-11.0) Red Blood Count 3.52 x10^6/uL (4.30-5.70) Hemoglobin 10.6 g/dL (13.0-17.5) Hematocrit 32.5 % (39.0-53.0) Mean Corpuscular Volume 92 fL (79-100) Mean Corpuscular Hemoglobin 30 pg (25-35) Mean Corpuscular Hemoglobin Concent 33 g/dL (31-37) Red Cell Distribution Width 16.5 % (11.5-14.5) Platelet Count 132 x10^3/uL (140-400) Neutrophils (%) (Auto) 89 % (31-73) Lymphocytes (%) (Auto) 6 % (24-48) Monocytes (%) (Auto) 4 % (0-9) Eosinophils (%) (Auto) 1 % (0-3) Basophils (%) (Auto) 0 % (0-3) Neutrophils # (Auto) 12.5 x10^3uL (1.8-7.7) Lymphocytes # (Auto) 0.8 x10^3/uL (1.0-4.8) Monocytes # (Auto) 0.6 x10^3/uL (0.0-1.1) Eosinophils # (Auto) 0.1 x10^3/uL (0.0-0.7) Basophils # (Auto) 0.0 x10^3/uL (0.0-0.2) Sodium Level 145 mmol/L (136-145) Potassium Level 5.0 mmol/L (3.5-5.1) Chloride Level 109 mmol/L (98-107) Carbon Dioxide Level 30 mmol/L (21-32) Anion Gap 6 (6-14) Blood Urea Nitrogen 52 mg/dL (8-26) Creatinine 1.1 mg/dL (0.7-1.3) Estimated GFR (Cockcroft-Gault) 65.1 BUN/Creatinine Ratio 47 (6-20) Glucose Level 204 mg/dL (70-99) Calcium Level 8.1 mg/dL (8.5-10.1) Total Bilirubin 1.4 mg/dL (0.2-1.0) Aspartate Amino Transf (AST/SGOT) 15 U/L (15-37) Alanine Aminotransferase (ALT/SGPT) 31 U/L (16-63) Alkaline Phosphatase 47 U/L (46-116) Total Protein 5.2 g/dL (6.4-8.2) Albumin 2.2 g/dL (3.4-5.0) Albumin/Globulin Ratio 0.7 (1.0-1.7) O2 Saturation 94 % (92-99) Arterial Blood pH 7.37 (7.35-7.45) Arterial Blood pCO2 at Patient Temp 46 mmHg (35-46) Arterial Blood pO2 at Patient Temp 81 mmHg (65-108) Arterial Blood HCO3 26 mmol/L (21-28) Arterial Blood Base Excess 0 mmol/L (-3-3) FiO2 35 Microbiology Micro Microbiology 10/07/18 Blood Culture - Final, Complete NO GROWTH AFTER 5 DAYS 10/08/18 - Final, Complete 10/08/18 - Final, Complete 10/08/18 - Final, Complete 10/08/18 - Final, Complete 10/08/18 - Final, Complete 10/08/18 Gram Stain Evaluation - Final, Complete 10/08/18 Sputum Culture - Final, Complete 10/08/18 Sputum Result 1 - Final, Complete 10/07/18 Urine Culture - Final, Complete 10/07/18 Urine Culture Result 1 (ELEN) - Final, Complete 10/07/18 Antimicrobic Susceptibility - Final, Complete Physical Exam HEENT: Neck Supple W Full Motion, Other (trach) Chest: Symmetric LUNGS: Other (diminished bases, mechanical vent) Heart: S1S2, RRR (SR/SB), other (distant heart tones) Abdomen: Soft N/T, Other (PEG ) Extremities: Other (1+ bilateral LE pitting edema) Neurology: other (opens eyes to voice) Assessment Assessment 1. Acute respiratory failure with COPD, CHF, and pneumonia; S/p trach with vent 2. NSTEMI; peak 0.8. EF at 40% with global hypokinesis, multifactorial. 3. Acute diastolic/systolic CHF: improving 4. Sepsis with UTI and pneumonia 5. ALEX; resolved 6. Known sinus bradycardia: lowest in the 40s. no pauses 7. H/o CVA 8. S/p PEG; tolerating tube feedings. Recommendations Lasix therapy Avoid AV mc blocking agents Antibiotics as per ID ACEi prior to discharge if BP is consistently adequate Continue ASA, statin Consider outpatient ischemic evaluation if reasonable recovery it attained. ROXANN MORALES MD 10/18/18 1858: CARDIO Progress Notes Plan Plan Pt. seen and examined. Agree with above METAL BALER note. JESSICA CORREIA APRN October 18, 2018 13:07 ROXANN MORALES MD October 18, 2018 18:58
--- NOTE | 2018-10-18 14:28 | NUR ---
SS following up with discharge planning. SS phoned and faxed clinical updates to [facility], ; fax [phone].
[2018-10-18] MEDS: fentaNYL PF VIAL 100 MCG/2 ML VIAL IV PRN (22:59)
[2018-10-19] VITALS (24 sets, daily range): BP systolic 99–179; BP diastolic 41–78
[2018-10-19] MEDS: fentaNYL PF VIAL 100 MCG/2 ML VIAL IV PRN ×5 (03:39→19:55)
[2018-10-19] MEDS: ONDANSETRON PF 4 MG/2 ML VIAL. IV PRN ×2 (04:58→16:31)
[2018-10-19] MEDS: INSULIN LISPRO 300 UNITS/3 ML INSULN.PEN. SQ SCH ×3 (05:35→17:49)
[2018-10-19] MEDS: MEROPENEM 500 MG in IV NORMAL SALINE 50ML 50 ML IV SCH ×3 (05:36→22:04)
[2018-10-19] MEDS: HEPARIN for SUB-Q USE 5,000 UNIT/ML VIAL. SQ SCH ×3 (05:37→22:36)
[2018-10-19 05:55] LABS: BASO % 0 % (0-3); EOS # 0.1 x10^3/uL (0.0-0.7); EOS % 0 % (0-3); HEMATOCRIT 33.7 % (39.0-53.0); HEMOGLOBIN 10.8 g/dL (13.0-17.5); LYMPH # 0.8 x10^3/uL (1.0-4.8); LYMPH % 5 % (24-48); MEAN CORPUSCULAR HEMOGLOBIN 29 pg (25-35); MEAN CORPUSCULAR HGB CONC 32 g/dL (31-37); MEAN CORPUSCULAR VOLUME 92 fL (79-100); MONO # 0.7 x10^3/uL (0.0-1.1); MONO % 4 % (0-9); NEUT # 15.2 x10^3uL (1.8-7.7); NEUT % 90 % (31-73); PLATELET COUNT 147 x10^3/uL (140-400); RED BLOOD COUNT 3.68 x10^6/uL (4.30-5.70); RED CELL DISTRIBUTION WIDTH 16.4 % (11.5-14.5); WHITE BLOOD COUNT 16.8 x10^3/uL (4.0-11.0)
[2018-10-19 06:11] LABS: ALBUMIN 2.3 g/dL (3.4-5.0); ALBUMIN/GLOBULIN RATIO 0.7 (1.0-1.7); CALCIUM 8.2 mg/dL (8.5-10.1); CREATININE 1.1 mg/dL (0.7-1.3); GFR 65.1; POTASSIUM 4.1 mmol/L (3.5-5.1); TOTAL BILIRUBIN 1.3 mg/dL (0.2-1.0); TOTAL PROTEIN 5.6 g/dL (6.4-8.2)
[2018-10-19] MEDS: hydrALAZINE 20 MG/ML VIAL. IVP PRN (06:23)
--- NOTE | 2018-10-19 07:38 | PDOC ---
Infectious Disease Note Subjective Subjective pt is awake, says not good ROS ROS no fever did have some vomiting Vital Sign Vital Signs Vital Signs Date Time Temp Pulse Resp B/P (MAP) Pulse Ox O2 Delivery O2 Flow Rate FiO2 10/19/18 07:00 59 22 153/71 (98) 99 Ventilator 10/19/18 04:00 99.5 99.5 Physical Exam PHYSICAL EXAM GENERAL: intubated, trach, sedated, mitts HENT: normal conj. PERRL. LUNGS: Clear CV: S1 S2 irregular ABD: Obese, soft, NT, BS present has a PEG feeding running, PEG in place : Jeffers in place EXT: 1 + edema lower extremities, bilaterally. No cyanosis. SKIN: warm without rash COAL CUTTER: awake, no focal deficit Labs Lab Laboratory Tests Test 10/18/18 07:40 10/18/18 13:19 10/18/18 18:48 10/18/18 20:53 O2 Saturation 94 % (92-99) Arterial Blood pH 7.37 (7.35-7.45) Arterial Blood pCO2 at Patient Temp 46 mmHg (35-46) Arterial Blood pO2 at Patient Temp 81 mmHg (65-108) Arterial Blood HCO3 26 mmol/L (21-28) Arterial Blood Base Excess 0 mmol/L (-3-3) FiO2 35 Glucose (Fingerstick) 188 mg/dL (70-99) 151 mg/dL (70-99) 131 mg/dL (70-99) Test 10/18/18 23:48 10/19/18 05:35 10/19/18 05:40 Glucose (Fingerstick) 156 mg/dL (70-99) 128 mg/dL (70-99) White Blood Count 16.8 x10^3/uL (4.0-11.0) Red Blood Count 3.68 x10^6/uL (4.30-5.70) Hemoglobin 10.8 g/dL (13.0-17.5) Hematocrit 33.7 % (39.0-53.0) Mean Corpuscular Volume 92 fL (79-100) Mean Corpuscular Hemoglobin 29 pg (25-35) Mean Corpuscular Hemoglobin Concent 32 g/dL (31-37) Red Cell Distribution Width 16.4 % (11.5-14.5) Platelet Count 147 x10^3/uL (140-400) Neutrophils (%) (Auto) 90 % (31-73) Lymphocytes (%) (Auto) 5 % (24-48) Monocytes (%) (Auto) 4 % (0-9) Eosinophils (%) (Auto) 0 % (0-3) Basophils (%) (Auto) 0 % (0-3) Neutrophils # (Auto) 15.2 x10^3uL (1.8-7.7) Lymphocytes # (Auto) 0.8 x10^3/uL (1.0-4.8) Monocytes # (Auto) 0.7 x10^3/uL (0.0-1.1) Eosinophils # (Auto) 0.1 x10^3/uL (0.0-0.7) Basophils # (Auto) 0.0 x10^3/uL (0.0-0.2) Sodium Level 146 mmol/L (136-145) Potassium Level 4.1 mmol/L (3.5-5.1) Chloride Level 108 mmol/L (98-107) Carbon Dioxide Level 32 mmol/L (21-32) Anion Gap 6 (6-14) Blood Urea Nitrogen 51 mg/dL (8-26) Creatinine 1.1 mg/dL (0.7-1.3) Estimated GFR (Cockcroft-Gault) 65.1 BUN/Creatinine Ratio 46 (6-20) Glucose Level 148 mg/dL (70-99) Calcium Level 8.2 mg/dL (8.5-10.1) Total Bilirubin 1.3 mg/dL (0.2-1.0) Aspartate Amino Transf (AST/SGOT) 18 U/L (15-37) Alanine Aminotransferase (ALT/SGPT) 33 U/L (16-63) Alkaline Phosphatase 50 U/L (46-116) Total Protein 5.6 g/dL (6.4-8.2) Albumin 2.3 g/dL (3.4-5.0) Albumin/Globulin Ratio 0.7 (1.0-1.7) Micro Microbiology 10/07/18 Blood Culture - Final, Complete NO GROWTH AFTER 5 DAYS 10/08/18 - Final, Complete 10/08/18 - Final, Complete 10/08/18 - Final, Complete 10/08/18 - Final, Complete 10/08/18 - Final, Complete 10/08/18 Gram Stain Evaluation - Final, Complete 10/08/18 Sputum Culture - Final, Complete 10/08/18 Sputum Result 1 - Final, Complete 10/07/18 Urine Culture - Final, Complete 10/07/18 Urine Culture Result 1 (ELEN) - Final, Complete 10/07/18 Antimicrobic Susceptibility - Final, Complete Objective Assessment Fever - resolved Pneumonia + mycoplasma 10/08 - on Doxy 10/09. Sputum cult - routine raheel/ Strep and Legionella - neg UTI, POA staph sap NSTEMI Lactic acidosis - improved Allergy PCN w/ hives and throat swelling; erythromycin w/ hives. Leukocytosis - on steroids - better Hypotension, now off Levophed gtt Acute encephalopathy - improving Acute respiratory failure s/p intubation ALEX - better COPD, O2 dependent Plan Plan of Care ok to d/c to [facility] antibiotics soon to scale down JEANNE WRAY MD October 19, 2018 07:38
[2018-10-19] MEDS: ASPIRIN CHEWABLE 81 MG TABLET. PO SCH (08:00)
[2018-10-19] MEDS: BISACODYL 10 MG SUPP.RECT. PR PRN (08:06)
[2018-10-19] MEDS: methylPREDNISolone SOD SUCC PF 40 MG/ML VIAL. IV SCH (08:07)
[2018-10-19] MEDS: amLODIPine BESYLATE 5 MG TABLET PO SCH (08:07)
[2018-10-19] MEDS: FUROSEMIDE 40 MG TABLET. PO SCH (08:08)
[2018-10-19] MEDS: DOXYCYCLINE HYCLATE 100 MG in IV DEXTROSE 5% 100ML 100 ML IV SCH ×2 (08:08→21:00)
[2018-10-19] MEDS: IPRATRPIUM/ALBUTEROL 0.5/2.5MG 3 ML NEBU. NEB SCH ×3 (08:32→19:51)
[2018-10-19 08:59] LABS: BASE EXCESS ABG 4 mmol/L (-3-3); HCO3 ABG 28 mmol/L (21-28); PCO2 ABG 44 mmHg (35-46); PO2 ABG 70 mmHg (65-108); SAT O2 ABG 93 % (92-99)
--- NOTE | 2018-10-19 10:07 | PDOC ---
PULMONARY PROGRESS NOTES Subjective AWAKENS TO STIMULI S/P TRACH 10/16 NO DISTRESS Vitals Vital Signs Date Time Temp Pulse Resp B/P (MAP) Pulse Ox O2 Delivery O2 Flow Rate FiO2 10/19/18 09:14 22 97 Ventilator 10/19/18 09:00 60 103/60 (74) 10/19/18 08:00 99.4 99.4 HEENT: Other (nc at perrl nose clear, orally intubated neck no thyromegaly no lad) Lungs: Clear Cardiovascular: S1, S2 Abdomen: Soft, Non-tender, Other (no mass) Extremities: Other (trace edema) Skin: Warm Labs Laboratory Tests Test 10/17/18 12:07 10/18/18 00:05 10/18/18 06:20 10/18/18 06:30 Glucose (Fingerstick) 173 mg/dL (70-99) 116 mg/dL (70-99) 190 mg/dL (70-99) White Blood Count 13.9 x10^3/uL (4.0-11.0) Red Blood Count 3.52 x10^6/uL (4.30-5.70) Hemoglobin 10.6 g/dL (13.0-17.5) Hematocrit 32.5 % (39.0-53.0) Mean Corpuscular Volume 92 fL (79-100) Mean Corpuscular Hemoglobin 30 pg (25-35) Mean Corpuscular Hemoglobin Concent 33 g/dL (31-37) Red Cell Distribution Width 16.5 % (11.5-14.5) Platelet Count 132 x10^3/uL (140-400) Neutrophils (%) (Auto) 89 % (31-73) Lymphocytes (%) (Auto) 6 % (24-48) Monocytes (%) (Auto) 4 % (0-9) Eosinophils (%) (Auto) 1 % (0-3) Basophils (%) (Auto) 0 % (0-3) Neutrophils # (Auto) 12.5 x10^3uL (1.8-7.7) Lymphocytes # (Auto) 0.8 x10^3/uL (1.0-4.8) Monocytes # (Auto) 0.6 x10^3/uL (0.0-1.1) Eosinophils # (Auto) 0.1 x10^3/uL (0.0-0.7) Basophils # (Auto) 0.0 x10^3/uL (0.0-0.2) Sodium Level 145 mmol/L (136-145) Potassium Level 5.0 mmol/L (3.5-5.1) Chloride Level 109 mmol/L (98-107) Carbon Dioxide Level 30 mmol/L (21-32) Anion Gap 6 (6-14) Blood Urea Nitrogen 52 mg/dL (8-26) Creatinine 1.1 mg/dL (0.7-1.3) Estimated GFR (Cockcroft-Gault) 65.1 BUN/Creatinine Ratio 47 (6-20) Glucose Level 204 mg/dL (70-99) Calcium Level 8.1 mg/dL (8.5-10.1) Total Bilirubin 1.4 mg/dL (0.2-1.0) Aspartate Amino Transf (AST/SGOT) 15 U/L (15-37) Alanine Aminotransferase (ALT/SGPT) 31 U/L (16-63) Alkaline Phosphatase 47 U/L (46-116) Total Protein 5.2 g/dL (6.4-8.2) Albumin 2.2 g/dL (3.4-5.0) Albumin/Globulin Ratio 0.7 (1.0-1.7) Test 10/18/18 07:40 10/18/18 13:19 10/18/18 18:48 10/18/18 20:53 O2 Saturation 94 % (92-99) Arterial Blood pH 7.37 (7.35-7.45) Arterial Blood pCO2 at Patient Temp 46 mmHg (35-46) Arterial Blood pO2 at Patient Temp 81 mmHg (65-108) Arterial Blood HCO3 26 mmol/L (21-28) Arterial Blood Base Excess 0 mmol/L (-3-3) FiO2 35 Glucose (Fingerstick) 188 mg/dL (70-99) 151 mg/dL (70-99) 131 mg/dL (70-99) Test 10/18/18 23:48 10/19/18 05:35 10/19/18 05:40 Glucose (Fingerstick) 156 mg/dL (70-99) 128 mg/dL (70-99) White Blood Count 16.8 x10^3/uL (4.0-11.0) Red Blood Count 3.68 x10^6/uL (4.30-5.70) Hemoglobin 10.8 g/dL (13.0-17.5) Hematocrit 33.7 % (39.0-53.0) Mean Corpuscular Volume 92 fL (79-100) Mean Corpuscular Hemoglobin 29 pg (25-35) Mean Corpuscular Hemoglobin Concent 32 g/dL (31-37) Red Cell Distribution Width 16.4 % (11.5-14.5) Platelet Count 147 x10^3/uL (140-400) Neutrophils (%) (Auto) 90 % (31-73) Lymphocytes (%) (Auto) 5 % (24-48) Monocytes (%) (Auto) 4 % (0-9) Eosinophils (%) (Auto) 0 % (0-3) Basophils (%) (Auto) 0 % (0-3) Neutrophils # (Auto) 15.2 x10^3uL (1.8-7.7) Lymphocytes # (Auto) 0.8 x10^3/uL (1.0-4.8) Monocytes # (Auto) 0.7 x10^3/uL (0.0-1.1) Eosinophils # (Auto) 0.1 x10^3/uL (0.0-0.7) Basophils # (Auto) 0.0 x10^3/uL (0.0-0.2) Sodium Level 146 mmol/L (136-145) Potassium Level 4.1 mmol/L (3.5-5.1) Chloride Level 108 mmol/L (98-107) Carbon Dioxide Level 32 mmol/L (21-32) Anion Gap 6 (6-14) Blood Urea Nitrogen 51 mg/dL (8-26) Creatinine 1.1 mg/dL (0.7-1.3) Estimated GFR (Cockcroft-Gault) 65.1 BUN/Creatinine Ratio 46 (6-20) Glucose Level 148 mg/dL (70-99) Calcium Level 8.2 mg/dL (8.5-10.1) Total Bilirubin 1.3 mg/dL (0.2-1.0) Aspartate Amino Transf (AST/SGOT) 18 U/L (15-37) Alanine Aminotransferase (ALT/SGPT) 33 U/L (16-63) Alkaline Phosphatase 50 U/L (46-116) Total Protein 5.6 g/dL (6.4-8.2) Albumin 2.3 g/dL (3.4-5.0) Albumin/Globulin Ratio 0.7 (1.0-1.7) Laboratory Tests Test 10/18/18 13:19 10/18/18 18:48 10/18/18 20:53 10/18/18 23:48 Glucose (Fingerstick) 188 mg/dL (70-99) 151 mg/dL (70-99) 131 mg/dL (70-99) 156 mg/dL (70-99) Test 10/19/18 05:35 10/19/18 05:40 Glucose (Fingerstick) 128 mg/dL (70-99) White Blood Count 16.8 x10^3/uL (4.0-11.0) Red Blood Count 3.68 x10^6/uL (4.30-5.70) Hemoglobin 10.8 g/dL (13.0-17.5) Hematocrit 33.7 % (39.0-53.0) Mean Corpuscular Volume 92 fL (79-100) Mean Corpuscular Hemoglobin 29 pg (25-35) Mean Corpuscular Hemoglobin Concent 32 g/dL (31-37) Red Cell Distribution Width 16.4 % (11.5-14.5) Platelet Count 147 x10^3/uL (140-400) Neutrophils (%) (Auto) 90 % (31-73) Lymphocytes (%) (Auto) 5 % (24-48) Monocytes (%) (Auto) 4 % (0-9) Eosinophils (%) (Auto) 0 % (0-3) Basophils (%) (Auto) 0 % (0-3) Neutrophils # (Auto) 15.2 x10^3uL (1.8-7.7) Lymphocytes # (Auto) 0.8 x10^3/uL (1.0-4.8) Monocytes # (Auto) 0.7 x10^3/uL (0.0-1.1) Eosinophils # (Auto) 0.1 x10^3/uL (0.0-0.7) Basophils # (Auto) 0.0 x10^3/uL (0.0-0.2) Sodium Level 146 mmol/L (136-145) Potassium Level 4.1 mmol/L (3.5-5.1) Chloride Level 108 mmol/L (98-107) Carbon Dioxide Level 32 mmol/L (21-32) Anion Gap 6 (6-14) Blood Urea Nitrogen 51 mg/dL (8-26) Creatinine 1.1 mg/dL (0.7-1.3) Estimated GFR (Cockcroft-Gault) 65.1 BUN/Creatinine Ratio 46 (6-20) Glucose Level 148 mg/dL (70-99) Calcium Level 8.2 mg/dL (8.5-10.1) Total Bilirubin 1.3 mg/dL (0.2-1.0) Aspartate Amino Transf (AST/SGOT) 18 U/L (15-37) Alanine Aminotransferase (ALT/SGPT) 33 U/L (16-63) Alkaline Phosphatase 50 U/L (46-116) Total Protein 5.6 g/dL (6.4-8.2) Albumin 2.3 g/dL (3.4-5.0) Albumin/Globulin Ratio 0.7 (1.0-1.7) Medications Active Scripts Medications Dose Route/Sig Max Daily Dose Days Date Category Proair Hfa (Albuterol Sulfate) 8.5 Gm Hfa.aer.ad 1 Puff INH PRN Q6HRS PRN 10/07/18 Reported Oxazepam 30 Mg Capsule 30 Mg PO QHS 10/07/18 Reported Impression . 1. Acute on chronic hypoxemic/ hypercapnic respiratory failure, multifactorial. 2. Acute exacerbation of chronic obstructive pulmonary disease. suspect severe COPD 3. Abnormal x-ray improved. 4. Gram-negative, possible gram-positive pneumonia. 5. No history given of diabetes, hypertension or renal failure. 6. History of alcohol intake, discontinued approximately 4 years ago. 7. Possible sepsis POA, improved 8. Positive mycoplasma serology 9. EF 40%, acute sys chf 10. S/P TRACH 10/16 Plan . WEANING WITH PS DECREASE SEDATION D/W RN AND RT FOLLOW CXR WILL CONTINUE SUPPORT FOLLOW CARD CONTINUE ANTIBX PER ID DIURESE STEROIDS DVT GI PROPH, pepcid, heparin sq ENTERAL FEEDING KRISTI DOMINGUEZ MD October 19, 2018 10:07
--- NOTE | 2018-10-19 11:19 | PDOC ---
[employer] PROGRESS NOTE Chief Complaint Chief Complaint New Trach and PEG Fulminant respiratory failure End-stage COPD Clinical pneumonia MORBID OBESITY Possible sepsis uti Staphylococcus saprophyticus. Greater than 100,000 colony forming units per mL Noncompliance Pneumonia + mycoplasma 10/08 - on Doxy 10/09 hypercapnic resp failure poor prognosis azotemia wants full aggressive care be continued including tracheostomy and PEG tube Trach Tuesday. PEG Tuesday. HOLD LASIX, LISINOPRIL today Fluid bolus 500cc ns x 1 now History of Present Illness History of Present Illness Patient was seen and examined in the intensive care unit He now has a trach and a PEG for the past 2 days Discussed with mine boss chart Vitals Vitals Vital Signs Date Time Temp Pulse Resp B/P (MAP) Pulse Ox O2 Delivery O2 Flow Rate FiO2 10/19/18 11:00 48 22 99/48 (65) 99 Ventilator 10/19/18 08:00 99.4 99.4 Physical Exam Physical Exam GENERAL: intubated, trach, sedated, mitts HENT: normal conj. PERRL. LUNGS: Clear CV: S1 S2 irregular ABD: Obese, soft, NT, BS present has a PEG feeding running, PEG in place : Jeffers in place EXT: 1 + edema lower extremities, bilaterally. No cyanosis. SKIN: warm without rash FLIGHT SERVICE SPECIALIST: awake, no focal deficit General: No acute distress, Other Heart: Regular rate, Normal S1, Normal S2 Lungs: Clear Abdomen: Soft, No tenderness Extremities: No cyanosis, Other (trace edema) Skin: No significant lesion Labs Labs: Laboratory Tests Test 10/18/18 13:19 10/18/18 18:48 10/18/18 20:53 10/18/18 23:48 Glucose (Fingerstick) 188 mg/dL (70-99) 151 mg/dL (70-99) 131 mg/dL (70-99) 156 mg/dL (70-99) Test 10/19/18 05:35 10/19/18 05:40 Glucose (Fingerstick) 128 mg/dL (70-99) White Blood Count 16.8 x10^3/uL (4.0-11.0) Red Blood Count 3.68 x10^6/uL (4.30-5.70) Hemoglobin 10.8 g/dL (13.0-17.5) Hematocrit 33.7 % (39.0-53.0) Mean Corpuscular Volume 92 fL (79-100) Mean Corpuscular Hemoglobin 29 pg (25-35) Mean Corpuscular Hemoglobin Concent 32 g/dL (31-37) Red Cell Distribution Width 16.4 % (11.5-14.5) Platelet Count 147 x10^3/uL (140-400) Neutrophils (%) (Auto) 90 % (31-73) Lymphocytes (%) (Auto) 5 % (24-48) Monocytes (%) (Auto) 4 % (0-9) Eosinophils (%) (Auto) 0 % (0-3) Basophils (%) (Auto) 0 % (0-3) Neutrophils # (Auto) 15.2 x10^3uL (1.8-7.7) Lymphocytes # (Auto) 0.8 x10^3/uL (1.0-4.8) Monocytes # (Auto) 0.7 x10^3/uL (0.0-1.1) Eosinophils # (Auto) 0.1 x10^3/uL (0.0-0.7) Basophils # (Auto) 0.0 x10^3/uL (0.0-0.2) Sodium Level 146 mmol/L (136-145) Potassium Level 4.1 mmol/L (3.5-5.1) Chloride Level 108 mmol/L (98-107) Carbon Dioxide Level 32 mmol/L (21-32) Anion Gap 6 (6-14) Blood Urea Nitrogen 51 mg/dL (8-26) Creatinine 1.1 mg/dL (0.7-1.3) Estimated GFR (Cockcroft-Gault) 65.1 BUN/Creatinine Ratio 46 (6-20) Glucose Level 148 mg/dL (70-99) Calcium Level 8.2 mg/dL (8.5-10.1) Total Bilirubin 1.3 mg/dL (0.2-1.0) Aspartate Amino Transf (AST/SGOT) 18 U/L (15-37) Alanine Aminotransferase (ALT/SGPT) 33 U/L (16-63) Alkaline Phosphatase 50 U/L (46-116) Total Protein 5.6 g/dL (6.4-8.2) Albumin 2.3 g/dL (3.4-5.0) Albumin/Globulin Ratio 0.7 (1.0-1.7) Review of Systems Review of Systems Unable to obtain Assessment and Plan Assessmemt and Plan Problems Medical Problems: (1) Acute respiratory distress Status: Acute (2) CAP (community acquired pneumonia) Status: Acute (3) CHF (congestive heart failure) Status: Acute (4) Elevated liver function tests Status: Acute (5) Elevated troponin I level Status: Acute (6) Hyperkalemia Status: Acute (7) Renal insufficiency Status: Acute (8) Sepsis Status: Acute (9) Unresponsiveness Status: Acute (10) Urinary tract infection Status: Acut New Trach and PEG Fulminant respiratory failure End-stage COPD Clinical pneumonia MORBID OBESITY Possible sepsis uti Staphylococcus saprophyticus. Greater than 100,000 colony forming units per mL Noncompliance Pneumonia + mycoplasma 10/08 - on Doxy 10/09 hypercapnic resp failure poor prognosis azotemia Plan Vent weaning PEG feeds ICU monitoring Frequent labs Home meds if possible LTAC eval in progress DVT prophylaxis Long-term prognosis guarded Total time 33 minutes Comment Review of Relevant I have reviewed the following items akbar (where applicable) has been applied. Labs Laboratory Tests Test 10/17/18 12:07 10/18/18 00:05 10/18/18 06:20 10/18/18 06:30 Glucose (Fingerstick) 173 mg/dL (70-99) 116 mg/dL (70-99) 190 mg/dL (70-99) White Blood Count 13.9 x10^3/uL (4.0-11.0) Red Blood Count 3.52 x10^6/uL (4.30-5.70) Hemoglobin 10.6 g/dL (13.0-17.5) Hematocrit 32.5 % (39.0-53.0) Mean Corpuscular Volume 92 fL (79-100) Mean Corpuscular Hemoglobin 30 pg (25-35) Mean Corpuscular Hemoglobin Concent 33 g/dL (31-37) Red Cell Distribution Width 16.5 % (11.5-14.5) Platelet Count 132 x10^3/uL (140-400) Neutrophils (%) (Auto) 89 % (31-73) Lymphocytes (%) (Auto) 6 % (24-48) Monocytes (%) (Auto) 4 % (0-9) Eosinophils (%) (Auto) 1 % (0-3) Basophils (%) (Auto) 0 % (0-3) Neutrophils # (Auto) 12.5 x10^3uL (1.8-7.7) Lymphocytes # (Auto) 0.8 x10^3/uL (1.0-4.8) Monocytes # (Auto) 0.6 x10^3/uL (0.0-1.1) Eosinophils # (Auto) 0.1 x10^3/uL (0.0-0.7) Basophils # (Auto) 0.0 x10^3/uL (0.0-0.2) Sodium Level 145 mmol/L (136-145) Potassium Level 5.0 mmol/L (3.5-5.1) Chloride Level 109 mmol/L (98-107) Carbon Dioxide Level 30 mmol/L (21-32) Anion Gap 6 (6-14) Blood Urea Nitrogen 52 mg/dL (8-26) Creatinine 1.1 mg/dL (0.7-1.3) Estimated GFR (Cockcroft-Gault) 65.1 BUN/Creatinine Ratio 47 (6-20) Glucose Level 204 mg/dL (70-99) Calcium Level 8.1 mg/dL (8.5-10.1) Total Bilirubin 1.4 mg/dL (0.2-1.0) Aspartate Amino Transf (AST/SGOT) 15 U/L (15-37) Alanine Aminotransferase (ALT/SGPT) 31 U/L (16-63) Alkaline Phosphatase 47 U/L (46-116) Total Protein 5.2 g/dL (6.4-8.2) Albumin 2.2 g/dL (3.4-5.0) Albumin/Globulin Ratio 0.7 (1.0-1.7) Test 10/18/18 07:40 10/18/18 13:19 10/18/18 18:48 10/18/18 20:53 O2 Saturation 94 % (92-99) Arterial Blood pH 7.37 (7.35-7.45) Arterial Blood pCO2 at Patient Temp 46 mmHg (35-46) Arterial Blood pO2 at Patient Temp 81 mmHg (65-108) Arterial Blood HCO3 26 mmol/L (21-28) Arterial Blood Base Excess 0 mmol/L (-3-3) FiO2 35 Glucose (Fingerstick) 188 mg/dL (70-99) 151 mg/dL (70-99) 131 mg/dL (70-99) Test 10/18/18 23:48 10/19/18 05:35 10/19/18 05:40 Glucose (Fingerstick) 156 mg/dL (70-99) 128 mg/dL (70-99) White Blood Count 16.8 x10^3/uL (4.0-11.0) Red Blood Count 3.68 x10^6/uL (4.30-5.70) Hemoglobin 10.8 g/dL (13.0-17.5) Hematocrit 33.7 % (39.0-53.0) Mean Corpuscular Volume 92 fL (79-100) Mean Corpuscular Hemoglobin 29 pg (25-35) Mean Corpuscular Hemoglobin Concent 32 g/dL (31-37) Red Cell Distribution Width 16.4 % (11.5-14.5) Platelet Count 147 x10^3/uL (140-400) Neutrophils (%) (Auto) 90 % (31-73) Lymphocytes (%) (Auto) 5 % (24-48) Monocytes (%) (Auto) 4 % (0-9) Eosinophils (%) (Auto) 0 % (0-3) Basophils (%) (Auto) 0 % (0-3) Neutrophils # (Auto) 15.2 x10^3uL (1.8-7.7) Lymphocytes # (Auto) 0.8 x10^3/uL (1.0-4.8) Monocytes # (Auto) 0.7 x10^3/uL (0.0-1.1) Eosinophils # (Auto) 0.1 x10^3/uL (0.0-0.7) Basophils # (Auto) 0.0 x10^3/uL (0.0-0.2) Sodium Level 146 mmol/L (136-145) Potassium Level 4.1 mmol/L (3.5-5.1) Chloride Level 108 mmol/L (98-107) Carbon Dioxide Level 32 mmol/L (21-32) Anion Gap 6 (6-14) Blood Urea Nitrogen 51 mg/dL (8-26) Creatinine 1.1 mg/dL (0.7-1.3) Estimated GFR (Cockcroft-Gault) 65.1 BUN/Creatinine Ratio 46 (6-20) Glucose Level 148 mg/dL (70-99) Calcium Level 8.2 mg/dL (8.5-10.1) Total Bilirubin 1.3 mg/dL (0.2-1.0) Aspartate Amino Transf (AST/SGOT) 18 U/L (15-37) Alanine Aminotransferase (ALT/SGPT) 33 U/L (16-63) Alkaline Phosphatase 50 U/L (46-116) Total Protein 5.6 g/dL (6.4-8.2) Albumin 2.3 g/dL (3.4-5.0) Albumin/Globulin Ratio 0.7 (1.0-1.7) Laboratory Tests Test 10/18/18 13:19 10/18/18 18:48 10/18/18 20:53 10/18/18 23:48 Glucose (Fingerstick) 188 mg/dL (70-99) 151 mg/dL (70-99) 131 mg/dL (70-99) 156 mg/dL (70-99) Test 10/19/18 05:35 10/19/18 05:40 Glucose (Fingerstick) 128 mg/dL (70-99) White Blood Count 16.8 x10^3/uL (4.0-11.0) Red Blood Count 3.68 x10^6/uL (4.30-5.70) Hemoglobin 10.8 g/dL (13.0-17.5) Hematocrit 33.7 % (39.0-53.0) Mean Corpuscular Volume 92 fL (79-100) Mean Corpuscular Hemoglobin 29 pg (25-35) Mean Corpuscular Hemoglobin Concent 32 g/dL (31-37) Red Cell Distribution Width 16.4 % (11.5-14.5) Platelet Count 147 x10^3/uL (140-400) Neutrophils (%) (Auto) 90 % (31-73) Lymphocytes (%) (Auto) 5 % (24-48) Monocytes (%) (Auto) 4 % (0-9) Eosinophils (%) (Auto) 0 % (0-3) Basophils (%) (Auto) 0 % (0-3) Neutrophils # (Auto) 15.2 x10^3uL (1.8-7.7) Lymphocytes # (Auto) 0.8 x10^3/uL (1.0-4.8) Monocytes # (Auto) 0.7 x10^3/uL (0.0-1.1) Eosinophils # (Auto) 0.1 x10^3/uL (0.0-0.7) Basophils # (Auto) 0.0 x10^3/uL (0.0-0.2) Sodium Level 146 mmol/L (136-145) Potassium Level 4.1 mmol/L (3.5-5.1) Chloride Level 108 mmol/L (98-107) Carbon Dioxide Level 32 mmol/L (21-32) Anion Gap 6 (6-14) Blood Urea Nitrogen 51 mg/dL (8-26) Creatinine 1.1 mg/dL (0.7-1.3) Estimated GFR (Cockcroft-Gault) 65.1 BUN/Creatinine Ratio 46 (6-20) Glucose Level 148 mg/dL (70-99) Calcium Level 8.2 mg/dL (8.5-10.1) Total Bilirubin 1.3 mg/dL (0.2-1.0) Aspartate Amino Transf (AST/SGOT) 18 U/L (15-37) Alanine Aminotransferase (ALT/SGPT) 33 U/L (16-63) Alkaline Phosphatase 50 U/L (46-116) Total Protein 5.6 g/dL (6.4-8.2) Albumin 2.3 g/dL (3.4-5.0) Albumin/Globulin Ratio 0.7 (1.0-1.7) Microbiology 10/07/18 Blood Culture - Final, Complete NO GROWTH AFTER 5 DAYS 10/08/18 - Final, Complete 10/08/18 - Final, Complete 10/08/18 - Final, Complete 10/08/18 - Final, Complete 10/08/18 - Final, Complete 10/08/18 Gram Stain Evaluation - Final, Complete 10/08/18 Sputum Culture - Final, Complete 10/08/18 Sputum Result 1 - Final, Complete 10/07/18 Urine Culture - Final, Complete 10/07/18 Urine Culture Result 1 (ELEN) - Final, Complete 10/07/18 Antimicrobic Susceptibility - Final, Complete Medications Current Medications Sodium Chloride 1,000 ml @ 1,000 mls/hr Q1H IV Last administered on 10/07/18at 11:27; Start 10/07/18 at 10:52; Stop 10/07/18 at 11:51; Status DC Midazolam HCl 100 ml @ 1 mls/hr 1X ONCE IV Last administered on 10/07/18at 11:20; Start 10/07/18 at 11:15; Stop 10/09/18 at 15:55; Status DC Etomidate (Amidate) 20 mg STK-MED ONCE IV ; Start 10/07/18 at 11:13; Stop 10/07/18 at 11:14; Status DC Succinylcholine Chloride (Anectine) 200 mg STK-MED ONCE .ROUTE ; Start 10/07/18 at 11:13; Stop 10/07/18 at 11:14; Status DC Etomidate (Amidate) 20 mg 1X ONCE IV Last administered on 10/07/18at 11:01; St art 10/07/18 at 11:30; Stop 10/07/18 at 11:33; Status DC Succinylcholine Chloride (Anectine) 100 mg 1X ONCE IV Last administered on 10/07/18at 11:01; Start 10/07/18 at 11:30; Stop 10/07/18 at 11:33; Status DC Albuterol Sulfate (Ventolin Neb Soln) 10 mg 1X ONCE CONT NEB ; Start 10/07/18 at 12:00; Stop 10/07/18 at 12:01; Status DC Methylprednisolone Sodium Succinate (SOLU-Medrol 125MG VIAL) 125 mg 1X ONCE IV Last administered on 10/07/18at 11:52; Start 10/07/18 at 12:00; Stop 10/07/18 at 12:01; Status DC Vancomycin HCl 250 ml @ 250 mls/hr 1X ONCE IV Last administered on 10/07/18at 12:27; Start 10/07/18 at 12:00; Stop 10/07/18 at 12:59; Status DC Levofloxacin/ Dextrose 150 ml @ 100 mls/hr 1X ONCE IV Last administered on 10/07/18at 12:28; Start 10/07/18 at 12:00; Stop 10/07/18 at 13:29; Status DC Sodium Chloride 1,000 ml @ 1,000 mls/hr 1X ONCE IV Last administered on at 12:57; Start 10/07/18 at 12:45; Stop 10/07/18 at 13:44; Status DC Sodium Chloride 1,000 ml @ 1,000 mls/hr 1X ONCE IV Last administered on 10/07/18at 12:58; Start 10/07/18 at 12:45; Stop 10/07/18 at 13:44; Status DC Dextrose (Dextrose 50%-Water Syringe) 25 gm 1X ONCE IV Last administered on 10/07/18at 12:59; Start 10/07/18 at 12:45; Stop 10/07/18 at 12:46; Status DC Insulin Human Regular (HumuLIN R VIAL) 10 unit 1X ONCE IV Last administered on 10/07/18at 13:00; Start 10/07/18 at 12:45; Stop 10/07/18 at 12:46; Status DC Sodium Bicarbonate (Sodium Bicarb Adult 8.4% Syr) 50 meq 1X ONCE IV Last administered on 10/07/18at 13:07; Start 10/07/18 at 12:45; Stop 10/07/18 at 12:46; Status DC Sodium Chloride 1,000 ml @ 100 mls/hr Q10H IV ; Start 10/07/18 at 16:00; Stop 10/07/18 at 16:00; Status DC Pantoprazole Sodium (PROTONIX VIAL for IV PUSH) 40 mg DAILYAC IVP Last administered on 10/08/18at 08:25; Start 10/07/18 at 13:30; Stop 10/08/18 at 09:54; Status DC Pantoprazole Sodium (PROTONIX VIAL for IV PUSH) 40 mg 1X ONCE IVP ; Start 10/07/18 at 12:45; Stop 10/07/18 at 12:46; Status UNV Heparin Sodium (Porcine) (Heparin Sodium) 5,000 unit Q8HRS SQ Last administered on 10/19/18at 05:37; Start 10/07/18 at 14:00 Levofloxacin/ Dextrose (Levaquin Per Pharmacy) 1 each PRN DAILY PRN MC SEE COMMENTS; Start 10/07/18 at 12:45; Stop 10/08/18 at 07:33; Status DC Insulin Human Lispro (HumaLOG) 0-9 UNITS TIDWMEALS SQ ; Start 10/07/18 at 17:00; Stop 10/07/18 at 17:00; Status DC Dextrose (Dextrose 50%-Water Syringe) 12.5 gm PRN Q15MIN PRN IV SEE COMMENTS; Start 10/07/18 at 12:45 Albuterol/ Ipratropium (Duoneb) 3 ml RTQID NEB ; Start 10/07/18 at 16:00; Status Cancel Methylprednisolone Sodium Succinate (SOLU-Medrol 40MG VIAL) 40 mg Q8HRS IV Last administered on 10/14/18at 05:48; Start 10/07/18 at 22:00; Stop 10/14/18 at 09:29; Status DC Acetaminophen (Tylenol) 650 mg PRN Q6HRS PRN PEG MILD PAIN / TEMP Last administered on 10/08/18at 08:25; Start 10/07/18 at 12:45 Morphine Sulfate (Morphine Sulfate) 2 mg PRN Q2HR PRN IV PAIN, 1ST CHOICE Last administered on 10/18/18at 16:28; Start 10/07/18 at 12:45 Ondansetron HCl (Zofran) 4 mg PRN Q6HRS PRN IV NAUSEA/VOMITING Last administered on 10/19/18at 04:58; Start 10/07/18 at 12:45 Norepinephrine Bitartrate 250 ml @ 1.875 mls/ hr CONT PRN IV SEE I/O RECORD Last administered on 10/07/18at 14:01; Start 10/07/18 at 14:00 Sodium Chloride 1,000 ml @ 150 mls/hr Q6H40M IV Last administered on 10/08/18at 15:09; Start 10/07/18 at 14:00; Stop 10/08/18 at 13:59; Status DC Calcium Gluconate (Calcium Gluconate) 1,000 mg 1X ONCE IVP ; Start 10/07/18 at 13:30; Stop 10/07/18 at 13:31; Status Cancel Sodium Polystyrene Sulfonate (Kayexalate) 15 gm 1X ONCE PO Last administered on 10/07/18at 14:10; Start 10/07/18 at 13:30; Stop 10/07/18 at 13:31; Status DC Pantoprazole Sodium (PROTONIX VIAL for IV PUSH) 40 mg STK-MED ONCE IVP ; Start 10/07/18 at 12:52; Stop 10/07/18 at 12:55; Status DC Levofloxacin/ Dextrose 150 ml @ 100 mls/hr Q48H IV ; Start 10/09/18 at 12:00; Stop 10/09/18 at 12:00; Status DC Calcium Gluconate 1000 mg/Sodium Chloride 110 ml @ 220 mls/hr 1X ONCE IV Last administered on 10/07/18at 14:23; Start 10/07/18 at 15:00; Stop 10/07/18 at 15:29; Status DC Sodium Chloride 1,000 ml @ 1,000 mls/hr 1X ONCE IV Last administered on at 14:50; Start 10/07/18 at 15:00; Stop 10/07/18 at 15:59; Status DC Sodium Chloride 1,000 ml @ 999 mls/hr 1X ONCE IV ; Start 10/07/18 at 15:00; Stop 10/07/18 at 16:00; Status DC Albuterol Sulfate (Ventolin Neb Soln) 2.5 mg PRN Q2HR PRN NEB [id number]; Start 10/07/18 at 15:00 Albuterol/ Ipratropium (Duoneb) 3 ml RTQID NEB Last administered on 10/19/18at 08:32; Start 10/07/18 at 16:00 Insulin Human Lispro (HumaLOG) 0-9 UNITS Q6HRS SQ Last administered on 10/18/18at 23:51; Start 10/07/18 at 18:00 Meropenem 500 mg/ Sodium Chloride 50 ml @ 100 mls/hr Q8HRS IV Last administered on 10/19/18at 05:36; Start 10/07/18 at 17:00 Midazolam HCl 100 ml @ 5 mls/hr CONT PRN IV SEE I/O RECORD Last administered on 10/18/18at 18:44; Start 10/08/18 at 04:15 Lactobacillus Rhamnosus (Culturelle) 1 cap BID PO ; Start 10/08/18 at 09:00; Stop 10/09/18 at 15:58; Status DC Famotidine (Pepcid Vial) 20 mg QHS IVP Last administered on 10/18/18at 20:48; Start 10/08/18 at 21:00 Linezolid/Dextrose 300 ml @ 300 mls/hr Q12HR IV Last administered on 10/09/18at 20:58; Start 10/08/18 at 11:30; Stop 10/10/18 at 07:24; Status DC Doxycycline Hyclate 100 mg/ Dextrose 100 ml @ 50 mls/hr Q12HR IV Last administered on 10/19/18 08:08; Start 10/09/18 at 13:00 Aspirin (Ecotrin) 81 mg DAILYWBKFT PO Last administered on 10/18/18 08:39; Start 10/10/18 at 08:00; Stop 10/18/18 at 09:01; Status DC Furosemide (Lasix) 40 mg 1X ONCE IVP Last administered on 10/11/18 08:36; Start 10/11/18 at 09:00; Stop 10/11/18 at 09:01; Status DC Lisinopril (Prinivil) 10 mg DAILY PO Last administered on 10/14/18 08:03; Start 10/11/18 at 14:00; Stop 10/15/18 at 09:46; Status DC Furosemide (Lasix) 40 mg DAILY IVP Last administered on 10/18/18at 08:40; Start 10/12/18 at 12:30; Stop 10/18/18 at 14:22; Status DC Amlodipine Besylate (Norvasc) 5 mg DAILY PO Last administered on 10/19/18 08:07; Start 10/12/18 at 12:30 Hydralazine HCl (Apresoline Inj) 10 mg PRN Q4HRS PRN IVP ELEVATED BP, SEE COMMENTS Last administered on 10/19/18at 06:23; Start 10/12/18 at 11:45 Insulin Glargine (Lantus) 10 units QHS SQ Last administered on 10/18/18at 20:54; Start 10/13/18 at 21:00 Ondansetron HCl (Zofran) 4 mg PRN Q6HRS PRN IV NAUSEA/VOMITING; Start 10/16/18 at 07:00; Stop 10/17/18 at 06:59; Status DC Fentanyl Citrate (Fentanyl 2ml Vial) 25 mcg PRN Q5MIN PRN IV MILD PAIN 1-3; Start 10/16/18 at 07:00; Stop 10/17/18 at 06:59; Status DC Fentanyl Citrate (Fentanyl 2ml Vial) 50 mcg PRN Q5MIN PRN IV MODERATE TO SEVERE PAIN Last administered on 10/17/18at 00:36; Start 10/16/18 at 07:00; Stop 10/17/18 at 06:59; Status DC Morphine Sulfate (Morphine Sulfate) 1 mg PRN Q10MIN PRN IV SEVERE PAIN 7-10; Start 10/16/18 at 07:00; Stop 10/17/18 at 06:59; Status DC Ringer's Solution 1,000 ml @ 30 mls/hr Q24H IV ; Start 10/16/18 at 07:00; Stop 10/16/18 at 18:59; Status DC Lidocaine HCl (Xylocaine-Mpf 1% 2ml Vial) 2 ml PRN 1X PRN ID PRIOR TO IV START; Start 10/16/18 at 07:00; Stop 10/17/18 at 06:59; Status DC Hydromorphone HCl (Dilaudid) 0.5 mg PRN Q10MIN PRN IV SEV PAIN, Second choice; Start 10/16/18 at 07:00; Stop 10/17/18 at 06:59; Status DC Prochlorperazine Edisylate (Compazine) 5 mg PACU PRN PRN IV NAUSEA, MRX1; Star t 10/16/18 at 07:00; Stop 10/17/18 at 06:59; Status DC Fentanyl Citrate (Fentanyl 2ml Vial) 50 mcg PRN Q2HR PRN IV PAIN, 2ND CHOICE Last administered on 10/19/18at 08:07; Start 10/14/18 at 00:30 Methylprednisolone Sodium Succinate (SOLU-Medrol 40MG VIAL) 40 mg Q12HR IV Last administered on 10/15/18at 08:28; Start 10/14/18 at 21:00; Stop 10/15/18 at 09:16; Status DC Methylprednisolone Sodium Succinate (SOLU-Medrol 40MG VIAL) 40 mg DAILY IV Last administered on 10/19/18at 08:07; Start 10/16/18 at 09:00 Sodium Chloride 500 ml @ 500 mls/hr 1X ONCE IV Last administered on 10/15/18at 09:59; Start 10/15/18 at 09:30; Stop 10/15/18 at 10:29; Status DC Sodium Chloride 1,000 ml @ 75 mls/hr [id number] IV Last administered on 10/17/18at 05:19; Start 10/15/18 at 11:45; Stop 10/17/18 at 17:11; Status DC Bisacodyl (Dulcolax Supp) 10 mg PRN DAILY PRN [place] CONSTIPATION Last administered on 10/19/18at 08:06; Start 10/15/18 at 13:30 Midazolam HCl (Versed) 2 mg STK-MED ONCE .ROUTE ; Start 10/16/18 at 12:36; Stop 10/16/18 at 12:37; Status DC Fentanyl Citrate (Fentanyl 2ml Vial) 100 mcg STK-MED ONCE .ROUTE ; Start 10/16/18 at 12:36; Stop 10/16/18 at 12:37; Status DC Rocuronium [place] (Zemuron) 50 mg STK-MED ONCE .ROUTE ; Start 10/16/18 at 12:36; Stop 10/16/18 at 12:37; Status DC Neostigmine Methylsulfate (Neostigmine Methylsulfate) 5 mg STK-MED ONCE .ROUTE ; Start 10/16/18 at 13:27; Stop 10/16/18 at 13:28; Status DC Glycopyrrolate (Robinul) 1 mg STK-MED ONCE .ROUTE ; Start 10/16/18 at 13:27; Stop 10/16/18 at 13:28; Status DC Sevoflurane (Ultane) 30 ml STK-MED ONCE IH ; Start 10/16/18 at 13:36; Stop 10/16/18 at 13:37; Status DC Ringer's Solution 1,000 ml @ 50 mls/hr Q20H IV ; Start 10/17/18 at 07:00; Stop 10/17/18 at 18:59; Status DC Atorvastatin Calcium (Lipitor) 10 mg QHS PO Last administered on 10/18/18at 20:48; Start 10/17/18 at 21:00 Sodium Chloride 1,000 ml @ 75 mls/hr [id number] IV Last administered on 10/18/18at 08:48; Start 10/17/18 at 17:15; Stop 10/18/18 at 14:22; Status DC Aspirin (Children'S Aspirin) 81 mg DAILYWBKFT PO ; Start 10/19/18 at 08:00 Furosemide (Lasix) 40 mg DAILY PO Last administered on 10/19/18at 08:08; Start 10/19/18 at 09:00 Metoclopramide HCl (Reglan Vial) 5 mg QIDACHS IV ; Start 10/19/18 at 11:30 Active Scripts Active Reported Proair Hfa (Albuterol Sulfate) 8.5 Gm Hfa.aer.ad 1 Puff INH PRN Q6HRS PRN Oxazepam 30 Mg Capsule 30 Mg PO QHS Vitals/I & O Vital Sign - Last 24 Hours 10/18/18 10/18/18 10/18/18 10/18/18 11:30 12:00 12:00 13:00 Temp 98.3 98.3 Pulse 61 62 Resp 22 B/P (MAP) 169/68 (101) 176/74 (108) Pulse Ox 98 97 98 O2 Delivery Ventilator Ventilator Mechanical Ventilator Ventilator 10/18/18 10/18/18 10/18/18 10/18/18 13:14 14:00 15:00 15:17 Pulse 60 56 Resp 29 B/P (MAP) 198/92 (127) 190/92 (124) Pulse Ox 97 97 97 99 O2 Delivery Ventilator Ventilator Ventilator Ventilator 10/18/18 10/18/18 10/18/18 10/18/18 16:00 16:00 16:58 17:39 Temp 99.3 99.3 Pulse 72 Resp 23 B/P (MAP) 120/51 (74) Pulse Ox 98 99 97 O2 Delivery Mechanical Ventilator Ventilator Ventilator 10/18/18 10/18/18 10/18/18 10/18/18 18:00 19:00 19:00 19:46 Pulse 56 50 Resp 22 B/P (MAP) 132/53 (79) 110/49 (69) Pulse Ox 99 96 97 O2 Delivery Ventilator Mechanical Ventilator Ventilator Ventilator 10/18/18 10/18/18 10/18/18 10/18/18 20:00 21:00 22:33 22:59 Temp 99.9 99.9 Pulse 50 56 60 Resp 22 22 22 B/P (MAP) 95/44 (61) 82/42 (55) 97/47 (64) Pulse Ox 97 98 99 99 O2 Delivery Ventilator Ventilator Ventilator Ventilator 10/18/18 10/18/18 10/18/18 10/19/18 23:00 23:45 23:59 00:01 Temp 98.8 98.8 Pulse 60 56 Resp 22 22 B/P (MAP) 104/54 (71) 114/69 (84) Pulse Ox 99 97 100 O2 Delivery Ventilator Ventilator Mechanical Ventilator Ventilator 10/19/18 10/19/18 10/19/18 10/19/18 01:00 01:36 02:00 03:00 Pulse 57 55 52 Resp 22 22 22 B/P (MAP) 122/71 (88) 165/66 (99) 163/62 (95) Pulse Ox 99 97 98 99 O2 Delivery Ventilator Ventilator Ventilator Ventilator 10/19/18 10/19/18 10/19/18 10/19/18 03:39 03:41 04:00 04:00 Temp 99.5 99.5 Pulse 52 Resp 22 B/P (MAP) 161/63 (95) Pulse Ox 99 99 98 O2 Delivery Ventilator Ventilator Mechanical Ventilator Ventilator 10/19/18 10/19/18 10/19/18 10/19/18 05:00 05:37 06:00 06:23 Pulse 52 54 54 Resp 22 22 B/P (MAP) 171/67 (101) 179/78 (111) 179/78 Pulse Ox 100 99 98 O2 Delivery Ventilator Ventilator Ventilator 10/19/18 10/19/18 10/19/18 10/19/18 07:00 08:00 08:00 08:07 Temp 99.4 99.4 Pulse 59 66 62 Resp 22 22 B/P (MAP) 153/71 (98) 118/60 (79) 162/66 Pulse Ox 99 100 O2 Delivery Ventilator Mechanical Ventilator Ventilator 10/19/18 10/19/18 10/19/18 10/19/18 08:07 08:32 09:00 09:14 Pulse 60 Resp 22 22 22 B/P (MAP) 103/60 (74) Pulse Ox 99 97 100 97 O2 Delivery Ventilator Ventilator Ventilator Ventilator 10/19/18 10/19/18 10:00 11:00 Pulse 60 48 Resp 22 22 B/P (MAP) 99/60 (73) 99/48 (65) Pulse Ox 100 99 O2 Delivery Ventilator Ventilator Intake and Output 10/18/18 10/18/18 10/19/18 15:00 23:00 07:00 Intake Total 100 ml 1265 ml 563 ml Output Total 1350 ml 1450 ml 530 ml Balance -1250 ml -185 ml 33 ml [id number] PEREZ III DO October 19, 2018 11:19
[2018-10-19] MEDS: METOCLOPRAMIDE HCL 10 MG/2 ML VIAL. IV SCH ×3 (11:30→21:00)
--- NOTE | 2018-10-19 11:34 | PDOC ---
Subjective: Subjective: Indicates some soreness around PEG. Objective: Objective: D/w RN - n/v last night, tube fees stopped, some increased residual. Vital Signs: Vital Signs Date Time Temp Pulse Resp B/P (MAP) Pulse Ox O2 Delivery O2 Flow Rate FiO2 10/19/18 11:00 48 22 99/48 (65) 99 Ventilator 10/19/18 08:00 99.4 99.4 Labs: Laboratory Tests Test 10/18/18 13:19 10/18/18 18:48 10/18/18 20:53 10/18/18 23:48 Glucose (Fingerstick) 188 mg/dL 151 mg/dL 131 mg/dL 156 mg/dL Test 10/19/18 05:35 10/19/18 05:40 Glucose (Fingerstick) 128 mg/dL White Blood Count 16.8 x10^3/uL Red Blood Count 3.68 x10^6/uL Hemoglobin 10.8 g/dL Hematocrit 33.7 % Mean Corpuscular Volume 92 fL Mean Corpuscular Hemoglobin 29 pg Mean Corpuscular Hemoglobin Concent 32 g/dL Red Cell Distribution Width 16.4 % Platelet Count 147 x10^3/uL Neutrophils (%) (Auto) 90 % Lymphocytes (%) (Auto) 5 % Monocytes (%) (Auto) 4 % Eosinophils (%) (Auto) 0 % Basophils (%) (Auto) 0 % Neutrophils # (Auto) 15.2 x10^3uL Lymphocytes # (Auto) 0.8 x10^3/uL Monocytes # (Auto) 0.7 x10^3/uL Eosinophils # (Auto) 0.1 x10^3/uL Basophils # (Auto) 0.0 x10^3/uL Sodium Level 146 mmol/L Potassium Level 4.1 mmol/L Chloride Level 108 mmol/L Carbon Dioxide Level 32 mmol/L Anion Gap 6 Blood Urea Nitrogen 51 mg/dL Creatinine 1.1 mg/dL Estimated GFR (Cockcroft-Gault) 65.1 BUN/Creatinine Ratio 46 Glucose Level 148 mg/dL Calcium Level 8.2 mg/dL Total Bilirubin 1.3 mg/dL Aspartate Amino Transf (AST/SGOT) 18 U/L Alanine Aminotransferase (ALT/SGPT) 33 U/L Alkaline Phosphatase 50 U/L Total Protein 5.6 g/dL Albumin 2.3 g/dL Albumin/Globulin Ratio 0.7 PE: GEN: NAD HEENT: trach LUNGS: vent HEART: RRR ABD: NABS, S/NT, PEG in place, a little old blood underneath bumper NEURO/PSYCH: A & O 3 A/P: Resp failure s/p trach, dysphagia s/p PEG N/v Leukocytosis -- Reviewed w/ Dr. Jose Watters. JO-ANN CHONG October 19, 2018 11:34
--- NOTE | 2018-10-19 12:19 | PDOC ---
JESSICA CORREIA MANAGER SPECIALTY 10/19/18 1219: CARDIO Progress Notes Date and Time Date of Service 10/19/18 Time of Evaluation 1110 Subjective Subjective: No Chest Pain, No Palpitations, No Dizziness Vitals Vitals Vital Signs Date Time Temp Pulse Resp B/P (MAP) Pulse Ox O2 Delivery O2 Flow Rate FiO2 10/19/18 11:00 48 22 99/48 (65) 99 Ventilator 10/19/18 08:00 99.4 99.4 Weight Weight [ ] Input and Output Intake and Output Intake and Output 10/19/18 06:59 Intake Total 1978 ml Output Total 3350 ml Balance -1372 ml IV Total 910 ml Tube Feeding 817 ml Other 251 ml Output Urine Total 3350 ml Gastric Drainage Total 0 ml Laboratory Labs Laboratory Tests Test 10/18/18 13:19 10/18/18 18:48 10/18/18 20:53 10/18/18 23:48 Glucose (Fingerstick) 188 mg/dL (70-99) 151 mg/dL (70-99) 131 mg/dL (70-99) 156 mg/dL (70-99) Test 10/19/18 05:35 10/19/18 05:40 Glucose (Fingerstick) 128 mg/dL (70-99) White Blood Count 16.8 x10^3/uL (4.0-11.0) Red Blood Count 3.68 x10^6/uL (4.30-5.70) Hemoglobin 10.8 g/dL (13.0-17.5) Hematocrit 33.7 % (39.0-53.0) Mean Corpuscular Volume 92 fL (79-100) Mean Corpuscular Hemoglobin 29 pg (25-35) Mean Corpuscular Hemoglobin Concent 32 g/dL (31-37) Red Cell Distribution Width 16.4 % (11.5-14.5) Platelet Count 147 x10^3/uL (140-400) Neutrophils (%) (Auto) 90 % (31-73) Lymphocytes (%) (Auto) 5 % (24-48) Monocytes (%) (Auto) 4 % (0-9) Eosinophils (%) (Auto) 0 % (0-3) Basophils (%) (Auto) 0 % (0-3) Neutrophils # (Auto) 15.2 x10^3uL (1.8-7.7) Lymphocytes # (Auto) 0.8 x10^3/uL (1.0-4.8) Monocytes # (Auto) 0.7 x10^3/uL (0.0-1.1) Eosinophils # (Auto) 0.1 x10^3/uL (0.0-0.7) Basophils # (Auto) 0.0 x10^3/uL (0.0-0.2) Sodium Level 146 mmol/L (136-145) Potassium Level 4.1 mmol/L (3.5-5.1) Chloride Level 108 mmol/L (98-107) Carbon Dioxide Level 32 mmol/L (21-32) Anion Gap 6 (6-14) Blood Urea Nitrogen 51 mg/dL (8-26) Creatinine 1.1 mg/dL (0.7-1.3) Estimated GFR (Cockcroft-Gault) 65.1 BUN/Creatinine Ratio 46 (6-20) Glucose Level 148 mg/dL (70-99) Calcium Level 8.2 mg/dL (8.5-10.1) Total Bilirubin 1.3 mg/dL (0.2-1.0) Aspartate Amino Transf (AST/SGOT) 18 U/L (15-37) Alanine Aminotransferase (ALT/SGPT) 33 U/L (16-63) Alkaline Phosphatase 50 U/L (46-116) Total Protein 5.6 g/dL (6.4-8.2) Albumin 2.3 g/dL (3.4-5.0) Albumin/Globulin Ratio 0.7 (1.0-1.7) Microbiology Micro Microbiology 10/07/18 Blood Culture - Final, Complete NO GROWTH AFTER 5 DAYS 10/08/18 - Final, Complete 10/08/18 - Final, Complete 10/08/18 - Final, Complete 10/08/18 - Final, Complete 10/08/18 - Final, Complete 10/08/18 Gram Stain Evaluation - Final, Complete 10/08/18 Sputum Culture - Final, Complete 10/08/18 Sputum Result 1 - Final, Complete 10/07/18 Urine Culture - Final, Complete 10/07/18 Urine Culture Result 1 (ELEN) - Final, Complete 10/07/18 Antimicrobic Susceptibility - Final, Complete Physical Exam HEENT: Neck Supple W Full Motion, Other (trach) Chest: Symmetric LUNGS: Other (diminished bases, mechanical vent) Heart: S1S2, RRR (SR/SB- no signifncant pauses), other (distant heart tones) Abdomen: Soft N/T, Other (PEG ) Extremities: Other (1+ bilateral LE pitting edema) Neurology: alert, follow commands Assessment Assessment 1. Acute respiratory failure; s/p trach with vent 2. NSTEMI; peak 0.8. EF at 40% with global hypokinesis, multifactorial. 3. Acute diastolic/systolic CHF: improving 4. Sepsis, PNA 5. Sinus bradycardia: lowest in the 40s. no pauses 6. H/o CVA 7. S/p PEG; not tolerating feedings well Recommendations Oral Lasix therapy Avoid AV mc blocking agents Antibiotics as per ID Continue ASA, statin ACEi when BP consistently adequate Supportive care ROXANN MORALES MD 10/19/18 1451: CARDIO Progress Notes Plan Plan Pt. seen and examined. Agree with above. No acute cardiac issues. Continue supportive care. JESSICA CORREIA APRN October 19, 2018 12:19 ROXANN MORALES MD October 19, 2018 14:51
[2018-10-19 14:03] LABS: FIO2 ABG 35
[2018-10-19] MEDS ORDERED: ALTEPLASE 1MG SYRINGE. INT CAT ONE ×2 (16:45)
[2018-10-19] MEDS: ATORVASTATIN CALCIUM 10 MG TABLET. PO SCH (21:00)
[2018-10-19] MEDS: INSULIN GLARGINE 300 UNITS/3 ML INSULN.PEN. SQ SCH (21:00)
[2018-10-19] MEDS: FAMOTIDINE 20 MG/2 ML VIAL IVP SCH (21:00)
[2018-10-20] VITALS (24 sets, daily range): BP systolic 99–202; BP diastolic 52–102
[2018-10-20] MEDS: ONDANSETRON PF 4 MG/2 ML VIAL. IV PRN (00:05)
[2018-10-20] MEDS: fentaNYL PF VIAL 100 MCG/2 ML VIAL IV PRN ×4 (03:17→14:01)
[2018-10-20] MEDS: hydrALAZINE 20 MG/ML VIAL. IVP PRN (04:00)
[2018-10-20] MEDS: MEROPENEM 500 MG in IV NORMAL SALINE 50ML 50 ML IV SCH (05:36)
[2018-10-20] MEDS: INSULIN LISPRO 300 UNITS/3 ML INSULN.PEN. SQ SCH ×4 (05:36→18:00)
--- NOTE | 2018-10-20 05:36 | PDOC ---
Infectious Disease Note Subjective Subjective pt is awake, feeling good ROS ROS no n/v/d/ Vital Sign Vital Signs Vital Signs Date Time Temp Pulse Resp B/P (MAP) Pulse Ox O2 Delivery O2 Flow Rate FiO2 10/20/18 04:28 98 Ventilator 10/20/18 04:00 98.5 64 22 192/74 (113) 98.5 Physical Exam PHYSICAL EXAM GENERAL: intubated, trach, sedated, mitts HENT: normal conj. PERRL. LUNGS: Clear CV: S1 S2 irregular ABD: Obese, soft, NT, BS present has a PEG feeding running, PEG in place : Jeffers in place EXT: 1 + edema lower extremities, bilaterally. No cyanosis. SKIN: warm without rash PULL THROUGH HOOKER: awake, no focal deficit Labs Lab Laboratory Tests Test 10/19/18 05:40 10/19/18 08:00 10/19/18 12:47 10/19/18 17:48 White Blood Count 16.8 x10^3/uL (4.0-11.0) Red Blood Count 3.68 x10^6/uL (4.30-5.70) Hemoglobin 10.8 g/dL (13.0-17.5) Hematocrit 33.7 % (39.0-53.0) Mean Corpuscular Volume 92 fL (79-100) Mean Corpuscular Hemoglobin 29 pg (25-35) Mean Corpuscular Hemoglobin Concent 32 g/dL (31-37) Red Cell Distribution Width 16.4 % (11.5-14.5) Platelet Count 147 x10^3/uL (140-400) Neutrophils (%) (Auto) 90 % (31-73) Lymphocytes (%) (Auto) 5 % (24-48) Monocytes (%) (Auto) 4 % (0-9) Eosinophils (%) (Auto) 0 % (0-3) Basophils (%) (Auto) 0 % (0-3) Neutrophils # (Auto) 15.2 x10^3uL (1.8-7.7) Lymphocytes # (Auto) 0.8 x10^3/uL (1.0-4.8) Monocytes # (Auto) 0.7 x10^3/uL (0.0-1.1) Eosinophils # (Auto) 0.1 x10^3/uL (0.0-0.7) Basophils # (Auto) 0.0 x10^3/uL (0.0-0.2) Sodium Level 146 mmol/L (136-145) Potassium Level 4.1 mmol/L (3.5-5.1) Chloride Level 108 mmol/L (98-107) Carbon Dioxide Level 32 mmol/L (21-32) Anion Gap 6 (6-14) Blood Urea Nitrogen 51 mg/dL (8-26) Creatinine 1.1 mg/dL (0.7-1.3) Estimated GFR (Cockcroft-Gault) 65.1 BUN/Creatinine Ratio 46 (6-20) Glucose Level 148 mg/dL (70-99) Calcium Level 8.2 mg/dL (8.5-10.1) Total Bilirubin 1.3 mg/dL (0.2-1.0) Aspartate Amino Transf (AST/SGOT) 18 U/L (15-37) Alanine Aminotransferase (ALT/SGPT) 33 U/L (16-63) Alkaline Phosphatase 50 U/L (46-116) Total Protein 5.6 g/dL (6.4-8.2) Albumin 2.3 g/dL (3.4-5.0) Albumin/Globulin Ratio 0.7 (1.0-1.7) O2 Saturation 93 % (92-99) Arterial Blood pH 7.43 (7.35-7.45) Arterial Blood pCO2 at Patient Temp 44 mmHg (35-46) Arterial Blood pO2 at Patient Temp 70 mmHg (65-108) Arterial Blood HCO3 28 mmol/L (21-28) Arterial Blood Base Excess 4 mmol/L (-3-3) FiO2 35 Glucose (Fingerstick) 172 mg/dL (70-99) 142 mg/dL (70-99) Test 10/19/18 20:46 10/20/18 00:22 10/20/18 05:33 Glucose (Fingerstick) 159 mg/dL (70-99) 151 mg/dL (70-99) 141 mg/dL (70-99) Micro Microbiology 10/07/18 Blood Culture - Final, Complete NO GROWTH AFTER 5 DAYS 10/08/18 - Final, Complete 10/08/18 - Final, Complete 10/08/18 - Final, Complete 10/08/18 - Final, Complete 10/08/18 - Final, Complete 10/08/18 Gram Stain Evaluation - Final, Complete 10/08/18 Sputum Culture - Final, Complete 10/08/18 Sputum Result 1 - Final, Complete 10/07/18 Urine Culture - Final, Complete 10/07/18 Urine Culture Result 1 (ELEN) - Final, Complete 10/07/18 Antimicrobic Susceptibility - Final, Complete Objective Assessment Fever - resolved Pneumonia + mycoplasma 10/08 - on Doxy 10/09. Sputum cult - routine rhaeel/ Strep and Legionella - neg UTI, POA staph sap NSTEMI Lactic acidosis - improved Allergy PCN w/ hives and throat swelling; erythromycin w/ hives. Leukocytosis - on steroids - better Hypotension, now off Levophed gtt Acute encephalopathy - improving Acute respiratory failure s/p intubation ALEX - better COPD, O2 dependent Plan Plan of Care ok to d/c to [facility] cont antibiotics d/c meropenem JEANNE WRAY MD October 20, 2018 05:36
[2018-10-20] MEDS: HEPARIN for SUB-Q USE 5,000 UNIT/ML VIAL. SQ SCH ×3 (05:38→21:58)
[2018-10-20 06:06] LABS: BASO % 0 % (0-3); EOS % 0 % (0-3); HEMATOCRIT 37.4 % (39.0-53.0); HEMOGLOBIN 12.1 g/dL (13.0-17.5); LYMPH % 5 % (24-48); MEAN CORPUSCULAR HEMOGLOBIN 30 pg (25-35); MEAN CORPUSCULAR HGB CONC 32 g/dL (31-37); MEAN CORPUSCULAR VOLUME 92 fL (79-100); MONO # 0.9 x10^3/uL (0.0-1.1); MONO % 5 % (0-9); NEUT # 17.1 x10^3uL (1.8-7.7); NEUT % 90 % (31-73); PLATELET COUNT 172 x10^3/uL (140-400); RED BLOOD COUNT 4.06 x10^6/uL (4.30-5.70); RED CELL DISTRIBUTION WIDTH 16.3 % (11.5-14.5)
[2018-10-20 06:23] LABS: ALBUMIN 2.7 g/dL (3.4-5.0); ALBUMIN/GLOBULIN RATIO 0.7 (1.0-1.7); CALCIUM 8.8 mg/dL (8.5-10.1); CREATININE 1.1 mg/dL (0.7-1.3); GFR 65.1; POTASSIUM 4.5 mmol/L (3.5-5.1); TOTAL BILIRUBIN 1.3 mg/dL (0.2-1.0); TOTAL PROTEIN 6.5 g/dL (6.4-8.2)
[2018-10-20] MEDS: IPRATRPIUM/ALBUTEROL 0.5/2.5MG 3 ML NEBU. NEB SCH ×4 (07:11→19:26)
[2018-10-20 07:34] LABS: BASE EXCESS ABG 3 mmol/L (-3-3); HCO3 ABG 29 mmol/L (21-28); PCO2 ABG 48 mmHg (35-46); PO2 ABG 83 mmHg (65-108); SAT O2 ABG 95 % (92-99)
[2018-10-20 07:39] LABS: FIO2 ABG 35
--- NOTE | 2018-10-20 07:46 | RAD ---
Portable chest, 10/20/2018: HISTORY: Respiratory failure Comparison is made to a study from 10/16/2018. The patient is rotated to the left. A tracheostomy tube has been inserted with its tip located well above the lis. A right PICC extends into the region of the right innominate vein. The heart size is normal. There are hazy basilar opacity suggesting a small amount of pleural fluid and underlying atelectasis. The upper lung keller are clear. There is no evidence of pneumothorax. A poorly marginated opacity projected over the mid thoracic spine is likely related to a previous vertebroplasty. IMPRESSION: 1. Interval insertion of a tracheostomy tube and a right PICC line as described above. 2. Hazy basilar opacities compatible with small pleural effusions and underlying atelectasis. Electronically signed by: Davis Ridley MD (10/20/2018 7:43 AM) [facility]
[2018-10-20] MEDS: MORPHINE SULFATE 2 MG/ML VIAL. IV PRN ×4 (07:59→20:36)
[2018-10-20] MEDS: ASPIRIN CHEWABLE 81 MG TABLET. PO SCH (08:00)
[2018-10-20] MEDS: amLODIPine BESYLATE 5 MG TABLET PO SCH (08:00)
[2018-10-20] MEDS: METOCLOPRAMIDE HCL 10 MG/2 ML VIAL. IV SCH ×4 (08:03→20:35)
[2018-10-20] MEDS: DOXYCYCLINE HYCLATE 100 MG in IV DEXTROSE 5% 100ML 100 ML IV SCH ×2 (08:04→20:34)
[2018-10-20] MEDS: FUROSEMIDE 40 MG TABLET. PO SCH (08:05)
[2018-10-20] MEDS: methylPREDNISolone SOD SUCC PF 40 MG/ML VIAL. IV SCH (08:05)
--- NOTE | 2018-10-20 09:38 | PDOC ---
Subjective: Subjective: Nausea, abd is "sore." Flatus, also indicates belching. Objective: Objective: Reviewed w/ RN - feeds held again, vomiting last night - gets lots of air w/ residual. Stooled on Tuesday. Vital Signs: Vital Signs Date Time Temp Pulse Resp B/P (MAP) Pulse Ox O2 Delivery O2 Flow Rate FiO2 10/20/18 08:00 Mechanical Ventilator 10/20/18 08:00 93 202/102 10/20/18 07:59 100 10/20/18 07:00 22 10/20/18 04:00 98.5 98.5 Labs: Laboratory Tests Test 10/19/18 12:47 10/19/18 17:48 10/19/18 20:46 10/20/18 00:22 Glucose (Fingerstick) 172 mg/dL 142 mg/dL 159 mg/dL 151 mg/dL Test 10/20/18 05:33 10/20/18 05:51 10/20/18 07:30 Glucose (Fingerstick) 141 mg/dL White Blood Count 19.0 x10^3/uL Red Blood Count 4.06 x10^6/uL Hemoglobin 12.1 g/dL Hematocrit 37.4 % Mean Corpuscular Volume 92 fL Mean Corpuscular Hemoglobin 30 pg Mean Corpuscular Hemoglobin Concent 32 g/dL Red Cell Distribution Width 16.3 % Platelet Count 172 x10^3/uL Neutrophils (%) (Auto) 90 % Lymphocytes (%) (Auto) 5 % Monocytes (%) (Auto) 5 % Eosinophils (%) (Auto) 0 % Basophils (%) (Auto) 0 % Neutrophils # (Auto) 17.1 x10^3uL Lymphocytes # (Auto) 1.0 x10^3/uL Monocytes # (Auto) 0.9 x10^3/uL Eosinophils # (Auto) 0.0 x10^3/uL Basophils # (Auto) 0.0 x10^3/uL Sodium Level 147 mmol/L Potassium Level 4.5 mmol/L Chloride Level 108 mmol/L Carbon Dioxide Level 32 mmol/L Anion Gap 7 Blood Urea Nitrogen 45 mg/dL Creatinine 1.1 mg/dL Estimated GFR (Cockcroft-Gault) 65.1 BUN/Creatinine Ratio 41 Glucose Level 154 mg/dL Calcium Level 8.8 mg/dL Total Bilirubin 1.3 mg/dL Aspartate Amino Transf (AST/SGOT) 17 U/L Alanine Aminotransferase (ALT/SGPT) 31 U/L Alkaline Phosphatase 59 U/L Total Protein 6.5 g/dL Albumin 2.7 g/dL Albumin/Globulin Ratio 0.7 O2 Saturation 95 % Arterial Blood pH 7.40 Arterial Blood pCO2 at Patient Temp 48 mmHg Arterial Blood pO2 at Patient Temp 83 mmHg Arterial Blood HCO3 29 mmol/L Arterial Blood Base Excess 3 mmol/L FiO2 35 PE: GEN: NAD HEENT: trach LUNGS: vent HEART: RRR ABD: BS present but quieter today, soft, sore around PEG - site ok NEURO/PSYCH: A & O 3 A/P: Resp failure s/p trach, dysphagia s/p PEG N/v - ongoing despite addition of Reglan yesterday HTN, leukocytosis -- Check KUB. JO-ANN CHONG October 20, 2018 09:38
--- NOTE | 2018-10-20 10:33 | RAD ---
KUB, 10/20/2018: HISTORY: Nausea and vomiting after gastrostomy tube placement A supine view the abdomen demonstrates the tip of the gastrostomy tube projected over the proximal portion of the stomach. There is mild gaseous distention of the stomach. There is gas and stool scattered throughout the colon in a nonspecific pattern. Surgical clips are present in the right upper quadrant. There are moderate scattered arterial calcifications. There is a branching radiopacity projected over the left renal region suggesting a staghorn calculus. Surgical pins are noted at the left hip. An opacity in the left lateral costophrenic angle suggests the presence of pleural fluid. IMPRESSION: 1. Mild gaseous distention of the stomach. 2. The gastrostomy tube tip is projected over the proximal aspect of the stomach. 3. Probable staghorn calculus in the left kidney. 4. Small left pleural effusion Electronically signed by: Davis Ridley MD (10/20/2018 10:31 AM) [facility]
[2018-10-20] MEDS: TPN PER PHARMACY MC PRN ×3 (10:49→11:49)
[2018-10-20] MEDS: FLUCONAZOLE 100 MG TABLET. PO SCH (11:07)
[2018-10-20 11:37] LABS: MAGNESIUM 2.2 mg/dL (1.8-2.4); PHOSPHORUS 3.2 mg/dL (2.6-4.7)
--- NOTE | 2018-10-20 11:48 | NUR ---
Pharmacy TPN Dosing Note S: JOSLYN SOTELO is a 78 year old M Currently receiving Central Continuous TPN started 10/20/18 B:Pertinent PMH: Unable to tolerate tube feeding Height: 5 feet, 10 inches Weight: 101.6 kg Current diet: NPO LABS: Sodium: 147 Potassium: 4.5 Chloride: 108 Calcium: 8.8 Corrected Calcium: 9.84 Magnesium: 2.2 CO2: 32 SCr: 1.1 Glucose: 154 Albumin: 2.7 AST: 17 ALT: 31 TPN FORMULA: TPN TYPE: Central Continuous AMINO ACIDS: 120 gm DEXTROSE: 250 gm LIPIDS: 20 gm SODIUM CHLORIDE: 20 mEq POTASSIUM ACETATE: 50 mEq POTASSIUM PHOSPHATE: 13.6 mmol MAGNESIUM: 10 mEq CALCIUM: 10 mEq MULTIPLE VITAMIN: 10 ml TRACE ELEMENTS: 1 ml TPN PLAN: Initiate TPN with macros per industrial laborer rec's. Decreased sodium chloride to 20mEq/bag and converted KCl to acetate salt form. Labs ordered for AM R: Begin TPN Will monitor electrolytes, glucose, and tolerance to TPN. Angela Wong [facility], 10/20/18 [id number]
--- NOTE | 2018-10-20 12:11 | PDOC ---
PULMONARY PROGRESS NOTES Subjective PT AWAKE FOLLOWS COMMANDS S/P TRACH 10/16 NO DISTRESS Vitals Vital Signs Date Time Temp Pulse Resp B/P (MAP) Pulse Ox O2 Delivery O2 Flow Rate FiO2 10/20/18 11:37 97 Ventilator 10/20/18 11:00 63 16 180/80 (113) 10/20/18 08:00 97.6 97.6 HEENT: Other (nc at perrl nose clear, orally intubated neck no thyromegaly no lad) Lungs: Clear Cardiovascular: S1, S2 Abdomen: Soft, Non-tender, Other (no mass) Extremities: Other (trace edema) Skin: Warm Labs Laboratory Tests Test 10/18/18 13:19 10/18/18 18:48 10/18/18 20:53 10/18/18 23:48 Glucose (Fingerstick) 188 mg/dL (70-99) 151 mg/dL (70-99) 131 mg/dL (70-99) 156 mg/dL (70-99) Test 10/19/18 05:35 10/19/18 05:40 10/19/18 08:00 10/19/18 12:47 Glucose (Fingerstick) 128 mg/dL (70-99) 172 mg/dL (70-99) White Blood Count 16.8 x10^3/uL (4.0-11.0) Red Blood Count 3.68 x10^6/uL (4.30-5.70) Hemoglobin 10.8 g/dL (13.0-17.5) Hematocrit 33.7 % (39.0-53.0) Mean Corpuscular Volume 92 fL (79-100) Mean Corpuscular Hemoglobin 29 pg (25-35) Mean Corpuscular Hemoglobin Concent 32 g/dL (31-37) Red Cell Distribution Width 16.4 % (11.5-14.5) Platelet Count 147 x10^3/uL (140-400) Neutrophils (%) (Auto) 90 % (31-73) Lymphocytes (%) (Auto) 5 % (24-48) Monocytes (%) (Auto) 4 % (0-9) Eosinophils (%) (Auto) 0 % (0-3) Basophils (%) (Auto) 0 % (0-3) Neutrophils # (Auto) 15.2 x10^3uL (1.8-7.7) Lymphocytes # (Auto) 0.8 x10^3/uL (1.0-4.8) Monocytes # (Auto) 0.7 x10^3/uL (0.0-1.1) Eosinophils # (Auto) 0.1 x10^3/uL (0.0-0.7) Basophils # (Auto) 0.0 x10^3/uL (0.0-0.2) Sodium Level 146 mmol/L (136-145) Potassium Level 4.1 mmol/L (3.5-5.1) Chloride Level 108 mmol/L (98-107) Carbon Dioxide Level 32 mmol/L (21-32) Anion Gap 6 (6-14) Blood Urea Nitrogen 51 mg/dL (8-26) Creatinine 1.1 mg/dL (0.7-1.3) Estimated GFR (Cockcroft-Gault) 65.1 BUN/Creatinine Ratio 46 (6-20) Glucose Level 148 mg/dL (70-99) Calcium Level 8.2 mg/dL (8.5-10.1) Total Bilirubin 1.3 mg/dL (0.2-1.0) Aspartate Amino Transf (AST/SGOT) 18 U/L (15-37) Alanine Aminotransferase (ALT/SGPT) 33 U/L (16-63) Alkaline Phosphatase 50 U/L (46-116) Total Protein 5.6 g/dL (6.4-8.2) Albumin 2.3 g/dL (3.4-5.0) Albumin/Globulin Ratio 0.7 (1.0-1.7) O2 Saturation 93 % (92-99) Arterial Blood pH 7.43 (7.35-7.45) Arterial Blood pCO2 at Patient Temp 44 mmHg (35-46) Arterial Blood pO2 at Patient Temp 70 mmHg (65-108) Arterial Blood HCO3 28 mmol/L (21-28) Arterial Blood Base Excess 4 mmol/L (-3-3) FiO2 35 Test 10/19/18 17:48 10/19/18 20:46 10/20/18 00:22 10/20/18 05:33 Glucose (Fingerstick) 142 mg/dL (70-99) 159 mg/dL (70-99) 151 mg/dL (70-99) 141 mg/dL (70-99) Test 10/20/18 05:51 10/20/18 07:30 White Blood Count 19.0 x10^3/uL (4.0-11.0) Red Blood Count 4.06 x10^6/uL (4.30-5.70) Hemoglobin 12.1 g/dL (13.0-17.5) Hematocrit 37.4 % (39.0-53.0) Mean Corpuscular Volume 92 fL (79-100) Mean Corpuscular Hemoglobin 30 pg (25-35) Mean Corpuscular Hemoglobin Concent 32 g/dL (31-37) Red Cell Distribution Width 16.3 % (11.5-14.5) Platelet Count 172 x10^3/uL (140-400) Neutrophils (%) (Auto) 90 % (31-73) Lymphocytes (%) (Auto) 5 % (24-48) Monocytes (%) (Auto) 5 % (0-9) Eosinophils (%) (Auto) 0 % (0-3) Basophils (%) (Auto) 0 % (0-3) Neutrophils # (Auto) 17.1 x10^3uL (1.8-7.7) Lymphocytes # (Auto) 1.0 x10^3/uL (1.0-4.8) Monocytes # (Auto) 0.9 x10^3/uL (0.0-1.1) Eosinophils # (Auto) 0.0 x10^3/uL (0.0-0.7) Basophils # (Auto) 0.0 x10^3/uL (0.0-0.2) Sodium Level 147 mmol/L (136-145) Potassium Level 4.5 mmol/L (3.5-5.1) Chloride Level 108 mmol/L (98-107) Carbon Dioxide Level 32 mmol/L (21-32) Anion Gap 7 (6-14) Blood Urea Nitrogen 45 mg/dL (8-26) Creatinine 1.1 mg/dL (0.7-1.3) Estimated GFR (Cockcroft-Gault) 65.1 BUN/Creatinine Ratio 41 (6-20) Glucose Level 154 mg/dL (70-99) Calcium Level 8.8 mg/dL (8.5-10.1) Phosphorus Level 3.2 mg/dL (2.6-4.7) Magnesium Level 2.2 mg/dL (1.8-2.4) Total Bilirubin 1.3 mg/dL (0.2-1.0) Aspartate Amino Transf (AST/SGOT) 17 U/L (15-37) Alanine Aminotransferase (ALT/SGPT) 31 U/L (16-63) Alkaline Phosphatase 59 U/L (46-116) Total Protein 6.5 g/dL (6.4-8.2) Albumin 2.7 g/dL (3.4-5.0) Albumin/Globulin Ratio 0.7 (1.0-1.7) O2 Saturation 95 % (92-99) Arterial Blood pH 7.40 (7.35-7.45) Arterial Blood pCO2 at Patient Temp 48 mmHg (35-46) Arterial Blood pO2 at Patient Temp 83 mmHg (65-108) Arterial Blood HCO3 29 mmol/L (21-28) Arterial Blood Base Excess 3 mmol/L (-3-3) FiO2 35 Laboratory Tests Test 10/19/18 12:47 10/19/18 17:48 10/19/18 20:46 10/20/18 00:22 Glucose (Fingerstick) 172 mg/dL (70-99) 142 mg/dL (70-99) 159 mg/dL (70-99) 151 mg/dL (70-99) Test 10/20/18 05:33 10/20/18 05:51 10/20/18 07:30 Glucose (Fingerstick) 141 mg/dL (70-99) White Blood Count 19.0 x10^3/uL (4.0-11.0) Red Blood Count 4.06 x10^6/uL (4.30-5.70) Hemoglobin 12.1 g/dL (13.0-17.5) Hematocrit 37.4 % (39.0-53.0) Mean Corpuscular Volume 92 fL (79-100) Mean Corpuscular Hemoglobin 30 pg (25-35) Mean Corpuscular Hemoglobin Concent 32 g/dL (31-37) Red Cell Distribution Width 16.3 % (11.5-14.5) Platelet Count 172 x10^3/uL (140-400) Neutrophils (%) (Auto) 90 % (31-73) Lymphocytes (%) (Auto) 5 % (24-48) Monocytes (%) (Auto) 5 % (0-9) Eosinophils (%) (Auto) 0 % (0-3) Basophils (%) (Auto) 0 % (0-3) Neutrophils # (Auto) 17.1 x10^3uL (1.8-7.7) Lymphocytes # (Auto) 1.0 x10^3/uL (1.0-4.8) Monocytes # (Auto) 0.9 x10^3/uL (0.0-1.1) Eosinophils # (Auto) 0.0 x10^3/uL (0.0-0.7) Basophils # (Auto) 0.0 x10^3/uL (0.0-0.2) Sodium Level 147 mmol/L (136-145) Potassium Level 4.5 mmol/L (3.5-5.1) Chloride Level 108 mmol/L (98-107) Carbon Dioxide Level 32 mmol/L (21-32) Anion Gap 7 (6-14) Blood Urea Nitrogen 45 mg/dL (8-26) Creatinine 1.1 mg/dL (0.7-1.3) Estimated GFR (Cockcroft-Gault) 65.1 BUN/Creatinine Ratio 41 (6-20) Glucose Level 154 mg/dL (70-99) Calcium Level 8.8 mg/dL (8.5-10.1) Phosphorus Level 3.2 mg/dL (2.6-4.7) Magnesium Level 2.2 mg/dL (1.8-2.4) Total Bilirubin 1.3 mg/dL (0.2-1.0) Aspartate Amino Transf (AST/SGOT) 17 U/L (15-37) Alanine Aminotransferase (ALT/SGPT) 31 U/L (16-63) Alkaline Phosphatase 59 U/L (46-116) Total Protein 6.5 g/dL (6.4-8.2) Albumin 2.7 g/dL (3.4-5.0) Albumin/Globulin Ratio 0.7 (1.0-1.7) O2 Saturation 95 % (92-99) Arterial Blood pH 7.40 (7.35-7.45) Arterial Blood pCO2 at Patient Temp 48 mmHg (35-46) Arterial Blood pO2 at Patient Temp 83 mmHg (65-108) Arterial Blood HCO3 29 mmol/L (21-28) Arterial Blood Base Excess 3 mmol/L (-3-3) FiO2 35 Medications Active Scripts Medications Dose Route/Sig Max Daily Dose Days Date Category Proair Hfa (Albuterol Sulfate) 8.5 Gm Hfa.aer.ad 1 Puff INH PRN Q6HRS PRN 10/07/18 Reported Oxazepam 30 Mg Capsule 30 Mg PO QHS 10/07/18 Reported Impression . 1. Acute on chronic hypoxemic/ hypercapnic respiratory failure, multifactorial. 2. Acute exacerbation of chronic obstructive pulmonary disease. suspect severe COPD 3. Abnormal x-ray improved. 4. Gram-negative, possible gram-positive pneumonia. 5. No history given of diabetes, hypertension or renal failure. 6. History of alcohol intake, discontinued approximately 4 years ago. 7. Possible sepsis POA, improved 8. Positive mycoplasma serology 9. EF 40%, acute sys chf 10. S/P TRACH 10/16 Plan . S/C STEROIDS WEANING WITH PS PT D/W RN AND RT FOLLOW CXR WILL CONTINUE SUPPORT FOLLOW CARD CONTINUE ANTIBX PER ID DIURESE DVT GI PROPH, pepcid, heparin sq ENTERAL FEEDING KRISTI DOMINGUEZ MD October 20, 2018 12:10
--- NOTE | 2018-10-20 12:52 | PDOC ---
[employer] PROGRESS NOTE Chief Complaint Chief Complaint Assessment: New Trach and PEG Fulminant respiratory failure End-stage COPD Clinical pneumonia MORBID OBESITY Possible sepsis UTI- Staphylococcus saprophyticus. Greater than 100,000 colony forming units per mL Noncompliance Pneumonia + mycoplasma 10/08 - on Doxy 10/09 hypercapnic resp failure poor prognosis azotemia wants full aggressive care be continued including tracheostomy and PEG tube History of Present Illness History of Present Illness Patient was seen and examined in the intensive care unit He has a trach (day 3) and cannot speak, but is alert and can communicate Has a PEG (day 3) is not tolerating feedings through PEG Versed turned off yesterday Vent set to Spontaneous Respirations, 18 pressure support, 35% FiO2 Discussed with RN Reviewed chart Vitals Vitals Vital Signs Date Time Temp Pulse Resp B/P (MAP) Pulse Ox O2 Delivery O2 Flow Rate FiO2 10/20/18 12:00 Mechanical Ventilator 10/20/18 12:00 98.4 57 14 128/53 (78) 99 98.4 Physical Exam Physical Exam GENERAL: intubated, trach, sedated, mitts HENT: normal conj. PERRL. LUNGS: Clear CV: S1 S2 irregular ABD: Obese, soft, NT, BS present has a PEG feeding running, PEG in place : Jeffers in place EXT: 1 + edema lower extremities, bilaterally. No cyanosis. 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 General: Alert, No acute distress, Other (Tracheostomy/Vent unable to speak) Heart: Regular rate, Normal S1, Normal S2 Lungs: Clear Abdomen: Soft, No tenderness Extremities: No cyanosis, Other (trace edema) Skin: No significant lesion Labs Labs: Laboratory Tests Test 10/19/18 12:47 10/19/18 17:48 10/19/18 20:46 10/20/18 00:22 Glucose (Fingerstick) 172 mg/dL (70-99) 142 mg/dL (70-99) 159 mg/dL (70-99) 151 mg/dL (70-99) Test 10/20/18 05:33 10/20/18 05:51 10/20/18 07:30 Glucose (Fingerstick) 141 mg/dL (70-99) White Blood Count 19.0 x10^3/uL (4.0-11.0) Red Blood Count 4.06 x10^6/uL (4.30-5.70) Hemoglobin 12.1 g/dL (13.0-17.5) Hematocrit 37.4 % (39.0-53.0) Mean Corpuscular Volume 92 fL (79-100) Mean Corpuscular Hemoglobin 30 pg (25-35) Mean Corpuscular Hemoglobin Concent 32 g/dL (31-37) Red Cell Distribution Width 16.3 % (11.5-14.5) Platelet Count 172 x10^3/uL (140-400) Neutrophils (%) (Auto) 90 % (31-73) Lymphocytes (%) (Auto) 5 % (24-48) Monocytes (%) (Auto) 5 % (0-9) Eosinophils (%) (Auto) 0 % (0-3) Basophils (%) (Auto) 0 % (0-3) Neutrophils # (Auto) 17.1 x10^3uL (1.8-7.7) Lymphocytes # (Auto) 1.0 x10^3/uL (1.0-4.8) Monocytes # (Auto) 0.9 x10^3/uL (0.0-1.1) Eosinophils # (Auto) 0.0 x10^3/uL (0.0-0.7) Basophils # (Auto) 0.0 x10^3/uL (0.0-0.2) Sodium Level 147 mmol/L (136-145) Potassium Level 4.5 mmol/L (3.5-5.1) Chloride Level 108 mmol/L (98-107) Carbon Dioxide Level 32 mmol/L (21-32) Anion Gap 7 (6-14) Blood Urea Nitrogen 45 mg/dL (8-26) Creatinine 1.1 mg/dL (0.7-1.3) Estimated GFR (Cockcroft-Gault) 65.1 BUN/Creatinine Ratio 41 (6-20) Glucose Level 154 mg/dL (70-99) Calcium Level 8.8 mg/dL (8.5-10.1) Phosphorus Level 3.2 mg/dL (2.6-4.7) Magnesium Level 2.2 mg/dL (1.8-2.4) Total Bilirubin 1.3 mg/dL (0.2-1.0) Aspartate Amino Transf (AST/SGOT) 17 U/L (15-37) Alanine Aminotransferase (ALT/SGPT) 31 U/L (16-63) Alkaline Phosphatase 59 U/L (46-116) Total Protein 6.5 g/dL (6.4-8.2) Albumin 2.7 g/dL (3.4-5.0) Albumin/Globulin Ratio 0.7 (1.0-1.7) O2 Saturation 95 % (92-99) Arterial Blood pH 7.40 (7.35-7.45) Arterial Blood pCO2 at Patient Temp 48 mmHg (35-46) Arterial Blood pO2 at Patient Temp 83 mmHg (65-108) Arterial Blood HCO3 29 mmol/L (21-28) Arterial Blood Base Excess 3 mmol/L (-3-3) FiO2 35 Review of Systems Review of Systems Patient complains of dry mouth Patient admits to anxiety Assessment and Plan Assessmemt and Plan Problems Medical Problems: (1) Acute respiratory distress Status: Acute (2) CAP (community acquired pneumonia) Status: Acute (3) CHF (congestive heart failure) Status: Acute (4) Elevated liver function tests Status: Acute (5) Elevated troponin I level Status: Acute (6) Hyperkalemia Status: Acute (7) Renal insufficiency Status: Acute (8) Sepsis Status: Acute (9) Unresponsiveness Status: Acute (10) Urinary tract infection Status: Acute Assessment: New Trach and PEG Fulminant respiratory failure End-stage COPD Clinical pneumonia MORBID OBESITY Possible sepsis UTI- Staphylococcus saprophyticus. Greater than 100,000 colony forming units per mL Noncompliance Pneumonia + mycoplasma 10/08 - on Doxy 10/09 hypercapnic resp failure poor prognosis azotemia Plan: Vent weaning DC PEG feeds- not tolerating, Start TPN ICU monitoring Frequent labs Home meds if possible Ativan prn- anxiety LTAC eval in progress DVT prophylaxis Pulm, Cards, ID, Nephro, GI consulted appreciate input Long-term prognosis guarded Total time 33 minutes Comment Review of Relevant I have reviewed the following items akbar (where applicable) has been applied. Labs Laboratory Tests Test 10/18/18 13:19 10/18/18 18:48 10/18/18 20:53 10/18/18 23:48 Glucose (Fingerstick) 188 mg/dL (70-99) 151 mg/dL (70-99) 131 mg/dL (70-99) 156 mg/dL (70-99) Test 10/19/18 05:35 10/19/18 05:40 10/19/18 08:00 10/19/18 12:47 Glucose (Fingerstick) 128 mg/dL (70-99) 172 mg/dL (70-99) White Blood Count 16.8 x10^3/uL (4.0-11.0) Red Blood Count 3.68 x10^6/uL (4.30-5.70) Hemoglobin 10.8 g/dL (13.0-17.5) Hematocrit 33.7 % (39.0-53.0) Mean Corpuscular Volume 92 fL (79-100) Mean Corpuscular Hemoglobin 29 pg (25-35) Mean Corpuscular Hemoglobin Concent 32 g/dL (31-37) Red Cell Distribution Width 16.4 % (11.5-14.5) Platelet Count 147 x10^3/uL (140-400) Neutrophils (%) (Auto) 90 % (31-73) Lymphocytes (%) (Auto) 5 % (24-48) Monocytes (%) (Auto) 4 % (0-9) Eosinophils (%) (Auto) 0 % (0-3) Basophils (%) (Auto) 0 % (0-3) Neutrophils # (Auto) 15.2 x10^3uL (1.8-7.7) Lymphocytes # (Auto) 0.8 x10^3/uL (1.0-4.8) Monocytes # (Auto) 0.7 x10^3/uL (0.0-1.1) Eosinophils # (Auto) 0.1 x10^3/uL (0.0-0.7) Basophils # (Auto) 0.0 x10^3/uL (0.0-0.2) Sodium Level 146 mmol/L (136-145) Potassium Level 4.1 mmol/L (3.5-5.1) Chloride Level 108 mmol/L (98-107) Carbon Dioxide Level 32 mmol/L (21-32) Anion Gap 6 (6-14) Blood Urea Nitrogen 51 mg/dL (8-26) Creatinine 1.1 mg/dL (0.7-1.3) Estimated GFR (Cockcroft-Gault) 65.1 BUN/Creatinine Ratio 46 (6-20) Glucose Level 148 mg/dL (70-99) Calcium Level 8.2 mg/dL (8.5-10.1) Total Bilirubin 1.3 mg/dL (0.2-1.0) Aspartate Amino Transf (AST/SGOT) 18 U/L (15-37) Alanine Aminotransferase (ALT/SGPT) 33 U/L (16-63) Alkaline Phosphatase 50 U/L (46-116) Total Protein 5.6 g/dL (6.4-8.2) Albumin 2.3 g/dL (3.4-5.0) Albumin/Globulin Ratio 0.7 (1.0-1.7) O2 Saturation 93 % (92-99) Arterial Blood pH 7.43 (7.35-7.45) Arterial Blood pCO2 at Patient Temp 44 mmHg (35-46) Arterial Blood pO2 at Patient Temp 70 mmHg (65-108) Arterial Blood HCO3 28 mmol/L (21-28) Arterial Blood Base Excess 4 mmol/L (-3-3) FiO2 35 Test 10/19/18 17:48 10/19/18 20:46 10/20/18 00:22 10/20/18 05:33 Glucose (Fingerstick) 142 mg/dL (70-99) 159 mg/dL (70-99) 151 mg/dL (70-99) 141 mg/dL (70-99) Test 10/20/18 05:51 10/20/18 07:30 White Blood Count 19.0 x10^3/uL (4.0-11.0) Red Blood Count 4.06 x10^6/uL (4.30-5.70) Hemoglobin 12.1 g/dL (13.0-17.5) Hematocrit 37.4 % (39.0-53.0) Mean Corpuscular Volume 92 fL (79-100) Mean Corpuscular Hemoglobin 30 pg (25-35) Mean Corpuscular Hemoglobin Concent 32 g/dL (31-37) Red Cell Distribution Width 16.3 % (11.5-14.5) Platelet Count 172 x10^3/uL (140-400) Neutrophils (%) (Auto) 90 % (31-73) Lymphocytes (%) (Auto) 5 % (24-48) Monocytes (%) (Auto) 5 % (0-9) Eosinophils (%) (Auto) 0 % (0-3) Basophils (%) (Auto) 0 % (0-3) Neutrophils # (Auto) 17.1 x10^3uL (1.8-7.7) Lymphocytes # (Auto) 1.0 x10^3/uL (1.0-4.8) Monocytes # (Auto) 0.9 x10^3/uL (0.0-1.1) Eosinophils # (Auto) 0.0 x10^3/uL (0.0-0.7) Basophils # (Auto) 0.0 x10^3/uL (0.0-0.2) Sodium Level 147 mmol/L (136-145) Potassium Level 4.5 mmol/L (3.5-5.1) Chloride Level 108 mmol/L (98-107) Carbon Dioxide Level 32 mmol/L (21-32) Anion Gap 7 (6-14) Blood Urea Nitrogen 45 mg/dL (8-26) Creatinine 1.1 mg/dL (0.7-1.3) Estimated GFR (Cockcroft-Gault) 65.1 BUN/Creatinine Ratio 41 (6-20) Glucose Level 154 mg/dL (70-99) Calcium Level 8.8 mg/dL (8.5-10.1) Phosphorus Level 3.2 mg/dL (2.6-4.7) Magnesium Level 2.2 mg/dL (1.8-2.4) Total Bilirubin 1.3 mg/dL (0.2-1.0) Aspartate Amino Transf (AST/SGOT) 17 U/L (15-37) Alanine Aminotransferase (ALT/SGPT) 31 U/L (16-63) Alkaline Phosphatase 59 U/L (46-116) Total Protein 6.5 g/dL (6.4-8.2) Albumin 2.7 g/dL (3.4-5.0) Albumin/Globulin Ratio 0.7 (1.0-1.7) O2 Saturation 95 % (92-99) Arterial Blood pH 7.40 (7.35-7.45) Arterial Blood pCO2 at Patient Temp 48 mmHg (35-46) Arterial Blood pO2 at Patient Temp 83 mmHg (65-108) Arterial Blood HCO3 29 mmol/L (21-28) Arterial Blood Base Excess 3 mmol/L (-3-3) FiO2 35 Laboratory Tests Test 10/19/18 12:47 10/19/18 17:48 10/19/18 20:46 10/20/18 00:22 Glucose (Fingerstick) 172 mg/dL (70-99) 142 mg/dL (70-99) 159 mg/dL (70-99) 151 mg/dL (70-99) Test 10/20/18 05:33 10/20/18 05:51 10/20/18 07:30 Glucose (Fingerstick) 141 mg/dL (70-99) White Blood Count 19.0 x10^3/uL (4.0-11.0) Red Blood Count 4.06 x10^6/uL (4.30-5.70) Hemoglobin 12.1 g/dL (13.0-17.5) Hematocrit 37.4 % (39.0-53.0) Mean Corpuscular Volume 92 fL (79-100) Mean Corpuscular Hemoglobin 30 pg (25-35) Mean Corpuscular Hemoglobin Concent 32 g/dL (31-37) Red Cell Distribution Width 16.3 % (11.5-14.5) Platelet Count 172 x10^3/uL (140-400) Neutrophils (%) (Auto) 90 % (31-73) Lymphocytes (%) (Auto) 5 % (24-48) Monocytes (%) (Auto) 5 % (0-9) Eosinophils (%) (Auto) 0 % (0-3) Basophils (%) (Auto) 0 % (0-3) Neutrophils # (Auto) 17.1 x10^3uL (1.8-7.7) Lymphocytes # (Auto) 1.0 x10^3/uL (1.0-4.8) Monocytes # (Auto) 0.9 x10^3/uL (0.0-1.1) Eosinophils # (Auto) 0.0 x10^3/uL (0.0-0.7) Basophils # (Auto) 0.0 x10^3/uL (0.0-0.2) Sodium Level 147 mmol/L (136-145) Potassium Level 4.5 mmol/L (3.5-5.1) Chloride Level 108 mmol/L (98-107) Carbon Dioxide Level 32 mmol/L (21-32) Anion Gap 7 (6-14) Blood Urea Nitrogen 45 mg/dL (8-26) Creatinine 1.1 mg/dL (0.7-1.3) Estimated GFR (Cockcroft-Gault) 65.1 BUN/Creatinine Ratio 41 (6-20) Glucose Level 154 mg/dL (70-99) Calcium Level 8.8 mg/dL (8.5-10.1) Phosphorus Level 3.2 mg/dL (2.6-4.7) Magnesium Level 2.2 mg/dL (1.8-2.4) Total Bilirubin 1.3 mg/dL (0.2-1.0) Aspartate Amino Transf (AST/SGOT) 17 U/L (15-37) Alanine Aminotransferase (ALT/SGPT) 31 U/L (16-63) Alkaline Phosphatase 59 U/L (46-116) Total Protein 6.5 g/dL (6.4-8.2) Albumin 2.7 g/dL (3.4-5.0) Albumin/Globulin Ratio 0.7 (1.0-1.7) O2 Saturation 95 % (92-99) Arterial Blood pH 7.40 (7.35-7.45) Arterial Blood pCO2 at Patient Temp 48 mmHg (35-46) Arterial Blood pO2 at Patient Temp 83 mmHg (65-108) Arterial Blood HCO3 29 mmol/L (21-28) Arterial Blood Base Excess 3 mmol/L (-3-3) FiO2 35 Microbiology 10/07/18 Blood Culture - Final, Complete NO GROWTH AFTER 5 DAYS 10/08/18 - Final, Complete 10/08/18 - Final, Complete 10/08/18 - Final, Complete 10/08/18 - Final, Complete 10/08/18 - Final, Complete 10/08/18 Gram Stain Evaluation - Final, Complete 10/08/18 Sputum Culture - Final, Complete 10/08/18 Sputum Result 1 - Final, Complete 10/07/18 Urine Culture - Final, Complete 10/07/18 Urine Culture Result 1 (ELEN) - Final, Complete 10/07/18 Antimicrobic Susceptibility - Final, Complete Medications Current Medications Sodium Chloride 1,000 ml @ 1,000 mls/hr Q1H IV Last administered on 10/07/18at 11:27; Start 10/07/18 at 10:52; Stop 10/07/18 at 11:51; Status DC Midazolam HCl 100 ml @ 1 mls/hr 1X ONCE IV Last administered on 10/07/18at 11:20; Start 10/07/18 at 11:15; Stop 10/09/18 at 15:55; Status DC Etomidate (Amidate) 20 mg STK-MED ONCE IV ; Start 10/07/18 at 11:13; Stop 10/07/18 at 11:14; Status DC Succinylcholine Chloride (Anectine) 200 mg STK-MED ONCE .ROUTE ; Start 10/07/18 at 11:13; Stop 10/07/18 at 11:14; Status DC Etomidate (Amidate) 20 mg 1X ONCE IV Last administered on 10/07/18at 11:01; Start 10/07/18 at 11:30; Stop 10/07/18 at 11:33; Status DC Succinylcholine Chloride (Anectine) 100 mg 1X ONCE IV Last administered on 10/07/18at 11:01; Start 10/07/18 at 11:30; Stop 10/07/18 at 11:33; Status DC Albuterol Sulfate (Ventolin Neb Soln) 10 mg 1X ONCE CONT NEB ; Start 10/07/18 at 12:00; Stop 10/07/18 at 12:01; Status DC Methylprednisolone Sodium Succinate (SOLU-Medrol 125MG VIAL) 125 mg 1X ONCE IV Last administered on 10/07/18at 11:52; Start 10/07/18 at 12:00; Stop 10/07/18 at 12:01; Status DC Vancomycin HCl 250 ml @ 250 mls/hr 1X ONCE IV Last administered on 10/07/18at 12:27; Start 10/07/18 at 12:00; Stop 10/07/18 at 12:59; Status DC Levofloxacin/ Dextrose 150 ml @ 100 mls/hr 1X ONCE IV Last administered on 10/07/18at 12:28; Start 10/07/18 at 12:00; Stop 10/07/18 at 13:29; Status DC Sodium Chloride 1,000 ml @ 1,000 mls/hr 1X ONCE IV Last administered on 10/07/18at 12:57; Start 10/07/18 at 12:45; Stop 10/07/18 at 13:44; Status DC Sodium Chloride 1,000 ml @ 1,000 mls/hr 1X ONCE IV Last administered on 10/07/18at 12:58; Start 10/07/18 at 12:45; Stop 10/07/18 at 13:44; Status DC Dextrose (Dextrose 50%-Water Syringe) 25 gm 1X ONCE IV Last administered on 10/07/18at 12:59; Start 10/07/18 at 12:45; Stop 10/07/18 at 12:46; Status DC Insulin Human Regular (HumuLIN R VIAL) 10 unit 1X ONCE IV Last administered on 10/07/18at 13:00; Start 10/07/18 at 12:45; Stop 10/07/18 at 12:46; Status DC Sodium Bicarbonate (Sodium Bicarb Adult 8.4% Syr) 50 meq 1X ONCE IV Last administered on 10/07/18at 13:07; Start 10/07/18 at 12:45; Stop 10/07/18 at 12:46; Status DC Sodium Chloride 1,000 ml @ 100 mls/hr Q10H IV ; Start 10/07/18 at 16:00; Stop 10/07/18 at 16:00; Status DC Pantoprazole Sodium (PROTONIX VIAL for IV PUSH) 40 mg DAILYAC IVP Last administered on 10/08/18at 08:25; Start 10/07/18 at 13:30; Stop 10/08/18 at 09:54; Status DC Pantoprazole Sodium (PROTONIX VIAL for IV PUSH) 40 mg 1X ONCE IVP ; Start 10/07/18 at 12:45; Stop 10/07/18 at 12:46; Status UNV Heparin Sodium (Porcine) (Heparin Sodium) 5,000 unit Q8HRS SQ Last administered on 10/20/18at 05:38; Start 10/07/18 at 14:00 Levofloxacin/ Dextrose (Levaquin Per Pharmacy) 1 each PRN DAILY PRN MC SEE COMMENTS; Start 10/07/18 at 12:45; Stop 10/08/18 at 07:33; Status DC Insulin Human Lispro (HumaLOG) 0-9 UNITS TIDWMEALS SQ ; Start 10/07/18 at 17:00; Stop 10/07/18 at 17:00; Status DC Dextrose (Dextrose 50%-Water Syringe) 12.5 gm PRN Q15MIN PRN IV SEE COMMENTS; Start 10/07/18 at 12:45 Albuterol/ Ipratropium (Duoneb) 3 ml RTQID NEB ; Start 10/07/18 at 16:00; Sta tus Cancel Methylprednisolone Sodium Succinate (SOLU-Medrol 40MG VIAL) 40 mg Q8HRS IV Last administered on 10/14/18at 05:48; Start 10/07/18 at 22:00; Stop 10/14/18 at 09:29; Status DC Acetaminophen (Tylenol) 650 mg PRN Q6HRS PRN PEG MILD PAIN / TEMP Last administered on 10/08/18at 08:25; Start 10/07/18 at 12:45 Morphine Sulfate (Morphine Sulfate) 2 mg PRN Q2HR PRN IV PAIN, 1ST CHOICE Last administered on 10/20/18at 07:59; Start 10/07/18 at 12:45 Ondansetron HCl (Zofran) 4 mg PRN Q6HRS PRN IV NAUSEA/VOMITING Last administered on 10/20/18at 00:05; Start 10/07/18 at 12:45 Norepinephrine Bitartrate 250 ml @ 1.875 mls/ hr CONT PRN IV SEE I/O RECORD Last administered on 10/07/18at 14:01; Start 10/07/18 at 14:00 Sodium Chloride 1,000 ml @ 150 mls/hr Q6H40M IV Last administered on 10/08/18at 15:09; Start 10/07/18 at 14:00; Stop 10/08/18 at 13:59; Status DC Calcium Gluconate (Calcium Gluconate) 1,000 mg 1X ONCE IVP ; Start 10/07/18 at 13:30; Stop 10/07/18 at 13:31; Status Cancel Sodium Polystyrene Sulfonate (Kayexalate) 15 gm 1X ONCE PO Last administered on 10/07/18at 14:10; Start 10/07/18 at 13:30; Stop 10/07/18 at 13:31; Status DC Pantoprazole Sodium (PROTONIX VIAL for IV PUSH) 40 mg STK-MED ONCE IVP ; Start 10/07/18 at 12:52; Stop 10/07/18 at 12:55; Status DC Levofloxacin/ Dextrose 150 ml @ 100 mls/hr Q48H IV ; Start 10/09/18 at 12:00; Stop 10/09/18 at 12:00; Status DC Calcium Gluconate 1000 mg/Sodium Chloride 110 ml @ 220 mls/hr 1X ONCE IV Last administered on 10/07/18at 14:23; Start 10/07/18 at 15:00; Stop 10/07/18 at 15:29; Status DC Sodium Chloride 1,000 ml @ 1,000 mls/hr 1X ONCE IV Last administered on 10/07/18at 14:50; Start 10/07/18 at 15:00; Stop 10/07/18 at 15:59; Status DC Sodium Chloride 1,000 ml @ 999 mls/hr 1X ONCE IV ; Start 10/07/18 at 15:00; Stop 10/07/18 at 16:00; Status DC Albuterol Sulfate (Ventolin Neb Soln) 2.5 mg PRN Q2HR PRN NEB DYSPNEA; Start 10/07/18 at 15:00 Albuterol/ Ipratropium (Duoneb) 3 ml RTQID NEB Last administered on 10/20/18at 11:37; Start 10/07/18 at 16:00 Insulin Human Lispro (HumaLOG) 0-9 UNITS Q6HRS SQ Last administered on 10/19/18at 12:52; Start 10/07/18 at 18:00 Meropenem 500 mg/ Sodium Chloride 50 ml @ 100 mls/hr Q8HRS IV Last administered on 10/20/18at 05:36; Start 10/07/18 at 17:00; Stop 10/20/18 at 09:03 ; Status DC Midazolam HCl 100 ml @ 5 mls/hr CONT PRN IV SEE I/O RECORD Last administered on 10/18/18at 18:44; Start 10/08/18 at 04:15 Lactobacillus Rhamnosus (Culturelle) 1 cap BID PO ; Start 10/08/18 at 09:00; Stop 10/09/18 at 15:58; Status DC Famotidine (Pepcid Vial) 20 mg QHS IVP Last administered on 10/19/18at 21:00; Start 10/08/18 at 21:00 Linezolid/Dextrose 300 ml @ 300 mls/hr Q12HR IV Last administered on 10/09/18 20:58; Start 10/08/18 at 11:30; Stop 10/10/18 at 07:24; Status DC Doxycycline Hyclate 100 mg/ Dextrose 100 ml @ 50 mls/hr Q12HR IV Last administered on 10/20/18 08:04; Start 10/09/18 at 13:00 Aspirin (Ecotrin) 81 mg DAILYWBKFT PO Last administered on 10/18/18 08:39; Start 10/10/18 at 08:00; Stop 10/18/18 at 09:01; Status DC Furosemide (Lasix) 40 mg 1X ONCE IVP Last administered on 10/11/18 08:36; Start 10/11/18 at 09:00; Stop 10/11/18 at 09:01; Status DC Lisinopril (Prinivil) 10 mg DAILY PO Last administered on 10/14/18 08:03; Start 10/11/18 at 14:00; Stop 10/15/18 at 09:46; Status DC Furosemide (Lasix) 40 mg DAILY IVP Last administered on 10/18/18 08:40; Start 10/12/18 at 12:30; Stop 10/18/18 at 14:22; Status DC Amlodipine Besylate (Norvasc) 5 mg DAILY PO Last administered on 10/20/18 08:00; Start 10/12/18 at 12:30 Hydralazine HCl (Apresoline Inj) 10 mg PRN Q4HRS PRN IVP ELEVATED BP, SEE COMMENTS Last administered on 10/20/18at 04:00; Start 10/12/18 at 11:45 Insulin Glargine (Lantus) 10 units QHS SQ Last administered on 10/19/18 21:00; Start 10/13/18 at 21:00 Ondansetron HCl (Zofran) 4 mg PRN Q6HRS PRN IV NAUSEA/VOMITING; Start 10/16/18 at 07:00; Stop 10/17/18 at 06:59; Status DC Fentanyl Citrate (Fentanyl 2ml Vial) 25 mcg PRN Q5MIN PRN IV MILD PAIN 1-3; Start 10/16/18 at 07:00; Stop 10/17/18 at 06:59; Status DC Fentanyl Citrate (Fentanyl 2ml Vial) 50 mcg PRN Q5MIN PRN IV MODERATE TO SEVERE PAIN Last administered on 10/17/18at 00:36; Start 10/16/18 at 07:00; Stop 10/17/18 at 06:59; Status DC Morphine Sulfate (Morphine Sulfate) 1 mg PRN Q10MIN PRN IV SEVERE PAIN 7-10; Start 10/16/18 at 07:00; Stop 10/17/18 at 06:59; Status DC Ringer's Solution 1,000 ml @ 30 mls/hr Q24H IV ; Start 10/16/18 at 07:00; Stop 10/16/18 at 18:59; Status DC Lidocaine HCl (Xylocaine-Mpf 1% 2ml Vial) 2 ml PRN 1X PRN ID PRIOR TO IV START; Start 10/16/18 at 07:00; Stop 10/17/18 at 06:59; Status DC Hydromorphone HCl (Dilaudid) 0.5 mg PRN Q10MIN PRN IV SEV PAIN, Second choice; Start 10/16/18 at 07:00; Stop 10/17/18 at 06:59; Status DC Prochlorperazine Edisylate (Compazine) 5 mg PACU PRN PRN IV NAUSEA, MRX1; Start 10/16/18 at 07:00; Stop 10/17/18 at 06:59; Status DC Fentanyl Citrate (Fentanyl 2ml Vial) 50 mcg PRN Q2HR PRN IV PAIN, 2ND CHOICE Last administered on 10/20/18at 10:27; Start 10/14/18 at 00:30 Methylprednisolone Sodium Succinate (SOLU-Medrol 40MG VIAL) 40 mg Q12HR IV Last administered on 10/15/18at 08:28; Start 10/14/18 at 21:00; Stop 10/15/18 at 09:16; Status DC Methylprednisolone Sodium Succinate (SOLU-Medrol 40MG VIAL) 40 mg DAILY IV Last administered on 10/20/18at 08:05; Start 10/16/18 at 09:00 Sodium Chloride 500 ml @ 500 mls/hr 1X ONCE IV Last administered on 10/15/18at 09:59; Start 10/15/18 at 09:30; Stop 10/15/18 at 10:29; Status DC Sodium Chloride 1,000 ml @ 75 mls/hr [id number] IV Last administered on 10/17/18at 05:19; Start 10/15/18 at 11:45; Stop 10/17/18 at 17:11; Status DC Bisacodyl (Dulcolax Supp) 10 mg PRN DAILY PRN MA CONSTIPATION Last administered on 10/19/18at 08:06; Start 10/15/18 at 13:30 Midazolam HCl (Versed) 2 mg STK-MED ONCE .ROUTE ; Start 10/16/18 at 12:36; Stop 10/16/18 at 12:37; Status DC Fentanyl Citrate (Fentanyl 2ml Vial) 100 mcg STK-MED ONCE .ROUTE ; Start 10/16/18 at 12:36; Stop 10/16/18 at 12:37; Status DC Rocuronium [place] (Zemuron) 50 mg STK-MED ONCE .ROUTE ; Start 10/16/18 at 12:36; Stop 10/16/18 at 12:37; Status DC Neostigmine Methylsulfate (Neostigmine Methylsulfate) 5 mg STK-MED ONCE .ROUTE ; Start 10/16/18 at 13:27; Stop 10/16/18 at 13:28; Status DC Glycopyrrolate (Robinul) 1 mg STK-MED ONCE .ROUTE ; Start 10/16/18 at 13:27; Stop 10/16/18 at 13:28; Status DC Sevoflurane (Ultane) 30 ml STK-MED ONCE IH ; Start 10/16/18 at 13:36; Stop 10/16/18 at 13:37; Status DC Ringer's Solution 1,000 ml @ 50 mls/hr Q20H IV ; Start 10/17/18 at 07:00; Stop 10/17/18 at 18:59; Status DC Atorvastatin Calcium (Lipitor) 10 mg QHS PO Last administered on 10/19/18at 21:00; Start 10/17/18 at 21:00 Sodium Chloride 1,000 ml @ 75 mls/hr [id number] IV Last administered on 10/18/18at 08:48; Start 10/17/18 at 17:15; Stop 10/18/18 at 14:22; Status DC Aspirin (Children'S Aspirin) 81 mg [id number] PO Last administered on 10/20/18 08:00; Start 10/19/18 at 08:00 Furosemide (Lasix) 40 mg DAILY PO Last administered on 10/20/18 08:05; Start 10/19/18 at 09:00 Metoclopramide HCl (Reglan Vial) 5 mg QIDACHS IV Last administered on 10/20/18 11:09; Start 10/19/18 at 11:30 Alteplase, Recombinant (Cathflo For Central Catheter Clearance) 1 mg 1X ONCE INT CAT Last administered on 10/19/18 17:05; Start 10/19/18 at 16:45; Stop 10/19/18 at 16:48; Status DC Alteplase, Recombinant (Cathflo For Central Catheter Clearance) 1 mg 1X ONCE INT CAT Last administered on 10/19/18 17:05; Start 10/19/18 at 16:45; Stop 10/19/18 at 16:48; Status DC Fluconazole (Diflucan) 200 mg DAILY PO Last administered on 10/20/18 11:07; Start 10/20/18 at 11:00 Info (Tpn Per Pharmacy) 1 each PRN DAILY PRN MC SEE COMMENTS Last administered on 10/20/18 11:49; Start 10/20/18 at 10:00 Lorazepam (Ativan Inj) 1 mg PRN Q6HRS PRN IV ANXIETY / AGITATION Last administered on 10/20/18 11:09; Start 10/20/18 at 10:30 Sodium Chloride 20 meq/Potassium Acetate 50 meq/ Potassium Phosphate 13.6 mmol/Magnesium Sulfate 10 meq/ Calcium Gluconate 10 meq/ Multivitamins 10 ml/Chromium/ Copper/Manganese/ Seleni/Zn 1 ml/ Total Parenteral Nutrition/Amino Acids/Dextrose/ Fat Emulsion Intravenous 1,512 ml @ 63 mls/hr TPN CONT IV ; Start 10/20/18 at 22:00; Stop 10/21/18 at 21:59 Active Scripts Active Reported Proair Hfa (Albuterol Sulfate) 8.5 Gm Hfa.aer.ad 1 Puff INH PRN Q6HRS PRN Oxazepam 30 Mg Capsule 30 Mg PO QHS Vitals/I & O Vital Sign - Last 24 Hours 5/23/19 5/23/19 5/23/19 5/23/19 12:49 13:00 14:00 15:00 Pulse 82 58 64 Resp 22 22 22 22 B/P (MAP) 114/41 (65) 113/47 (69) 138/64 (88) Pulse Ox 99 100 100 99 O2 Delivery Ventilator Ventilator Ventilator Ventilator 10/19/18 10/19/18 10/19/18 10/19/18 15:32 15:35 16:00 16:00 Temp 97.8 97.8 Pulse 68 Resp 22 22 B/P (MAP) 168/72 (104) Pulse Ox 99 97 99 O2 Delivery Ventilator Ventilator Ventilator Mechanical Ventilator 10/19/18 10/19/18 10/19/18 10/19/18 17:00 18:00 19:00 19:52 Pulse 70 78 80 Resp 22 22 22 B/P (MAP) 158/73 (101) 152/54 (86) 159/63 (95) Pulse Ox 98 99 98 99 O2 Delivery Ventilator Ventilator Ventilator Ventilator 10/19/18 10/19/18 10/19/18 10/19/18 19:55 20:00 20:00 21:00 Temp 99.8 99.8 Pulse 76 80 Resp 22 22 23 B/P (MAP) 122/50 (74) 163/59 (93) Pulse Ox 100 100 99 O2 Delivery Ventilator Mechanical Ventilator Ventilator Ventilator 10/19/18 10/19/18 10/19/18 10/19/18 22:00 23:00 23:34 23:59 Pulse 74 66 Resp 22 22 B/P (MAP) 173/71 (105) 174/76 (108) Pulse Ox 99 98 99 O2 Delivery Ventilator Ventilator Ventilator Mechanical Ventilator 10/20/18 10/20/18 10/20/18 10/20/18 00:01 01:00 02:00 02:36 Temp 99.5 99.5 Pulse 74 68 70 Resp 22 22 22 B/P (MAP) 174/77 (109) 152/78 (102) 178/82 (114) Pulse Ox 99 99 99 99 O2 Delivery Ventilator Ventilator Ventilator Ventilator 10/20/18 10/20/18 10/20/18 10/20/18 03:00 03:17 04:00 04:00 Pulse 65 64 Resp 22 22 B/P (MAP) 178/80 (112) 199/93 Pulse Ox 99 99 O2 Delivery Ventilator Ventilator Mechanical Ventilator 10/20/18 10/20/18 10/20/18 5/24/19 04:00 04:28 05:00 06:00 Temp 98.5 98.5 Pulse 64 72 80 Resp 22 22 22 B/P (MAP) 192/74 (113) 164/77 (106) 158/65 (96) Pulse Ox 98 98 97 97 O2 Delivery Ventilator Ventilator Ventilator Ventilator 10/20/18 10/20/18 10/20/18 10/20/18 06:11 06:17 06:45 07:00 Pulse 78 Resp 20 22 22 B/P (MAP) 178/85 (116) Pulse Ox 98 99 100 O2 Delivery Ventilator Ventilator Ventilator Ventilator 10/20/18 10/20/18 10/20/18 10/20/18 07:12 07:59 08:00 08:00 Pulse 93 B/P (MAP) 202/102 Pulse Ox 99 100 O2 Delivery Ventilator Ventilator Mechanical Ventilator 10/20/18 10/20/18 10/20/18 10/20/18 08:00 08:30 09:00 10:00 Temp 97.6 97.6 Pulse 100 86 64 Resp 22 22 20 16 B/P (MAP) 202/102 (135) 156/69 (98) 158/97 (117) Pulse Ox 99 98 98 98 O2 Delivery Ventilator Ventilator Ventilator 10/20/18 10/20/18 10/20/18 10/20/18 10:27 11:00 11:07 11:37 Pulse 63 Resp 20 16 B/P (MAP) 180/80 (113) Pulse Ox 98 96 98 97 O2 Delivery Ventilator Ventilator Ventilator 10/20/18 10/20/18 12:00 12:00 Temp 98.4 98.4 Pulse 57 Resp 14 B/P (MAP) 128/53 (78) Pulse Ox 99 O2 Delivery Ventilator Mechanical Ventilator Intake and Output 10/19/18 10/19/18 10/20/18 15:00 23:00 07:00 Intake Total 400 ml 474 ml 50 ml Output Total 650 ml 655 ml 550 ml Balance -250 ml -181 ml -500 ml CHRISNIAL K III DO October 20, 2018 12:52
--- NOTE | 2018-10-20 14:29 | NUR ---
Tube feeding started back up at [address] Garcia. Starting rate at 25 with goal of 65. Patient has not been able to tolerate up to this point. Nausea and vomiting the past two days when attempting to restart. Increased Reglan dose from 5mg to 10mg. Will continue to monitor.
[2018-10-20] MEDS ORDERED: ATROPINE 0.5 MG/5 ML DISP.SYRINGE. IV PRN (15:15)
[2018-10-20] MEDS ORDERED: IV NORMAL SALINE 500ML BAG 500 ML IV PRN (15:15)
[2018-10-20] MEDS ORDERED: DEXMEDETOMIDINE 200 MCG in IV NORMAL SALINE 50ML 48 ML IV PRN (15:15)
[2018-10-20] MEDS: FAMOTIDINE 20 MG/2 ML VIAL IVP SCH (20:35)
[2018-10-20] MEDS: ATORVASTATIN CALCIUM 10 MG TABLET. PO SCH (20:35)
[2018-10-20] MEDS: INSULIN GLARGINE 300 UNITS/3 ML INSULN.PEN. SQ SCH (21:58)
[2018-10-20] MEDS ORDERED: AMINO ACID IV SCH ×10 (22:00)
[2018-10-20] MEDS ORDERED: DEXTROSE 70% IV SCH ×10 (22:00)
[2018-10-20] MEDS ORDERED: TOTAL PARENTERAL NUTRITION IV SCH ×10 (22:00)
[2018-10-20] MEDS ORDERED: [UNRECOGNIZED DRUG - OTHER] IV SCH ×10 (22:00)
[2018-10-21] VITALS (22 sets, daily range): BP systolic 106–190; BP diastolic 56–86
[2018-10-21] MEDS: MORPHINE SULFATE 2 MG/ML VIAL. IV PRN ×6 (00:53→21:28)
[2018-10-21] MEDS: INSULIN LISPRO 300 UNITS/3 ML INSULN.PEN. SQ SCH ×4 (00:57→17:02)
[2018-10-21] MEDS: HEPARIN for SUB-Q USE 5,000 UNIT/ML VIAL. SQ SCH ×3 (06:31→21:56)
--- NOTE | 2018-10-21 06:37 | PDOC ---
PULMONARY PROGRESS NOTES Subjective on vent, tolerated ps 10/5, small ett secretion, follows commands, no pain S/P TRACH 10/16 Vitals Vital Signs Date Time Temp Pulse Resp B/P (MAP) Pulse Ox O2 Delivery O2 Flow Rate FiO2 10/21/18 04:26 100 Ventilator 10/21/18 04:00 99.0 61 22 144/71 (95) 99.0 Comments ros as mentioned as above other sys otherwise neg General: Alert HEENT: Other (nc at perrl nose throat clear, neck no thyromegaly no lad) Lungs: Crackles Cardiovascular: S1, S2 Abdomen: Soft, Non-tender, Other (no mass) Neuro Exam: Alert Extremities: Other (trace edema) Skin: Warm Labs Laboratory Tests Test 10/19/18 08:00 10/19/18 12:47 10/19/18 17:48 10/19/18 20:46 O2 Saturation 93 % (92-99) Arterial Blood pH 7.43 (7.35-7.45) Arterial Blood pCO2 at Patient Temp 44 mmHg (35-46) Arterial Blood pO2 at Patient Temp 70 mmHg (65-108) Arterial Blood HCO3 28 mmol/L (21-28) Arterial Blood Base Excess 4 mmol/L (-3-3) FiO2 35 Glucose (Fingerstick) 172 mg/dL (70-99) 142 mg/dL (70-99) 159 mg/dL (70-99) Test 10/20/18 00:22 10/20/18 05:33 10/20/18 05:51 10/20/18 07:30 Glucose (Fingerstick) 151 mg/dL (70-99) 141 mg/dL (70-99) White Blood Count 19.0 x10^3/uL (4.0-11.0) Red Blood Count 4.06 x10^6/uL (4.30-5.70) Hemoglobin 12.1 g/dL (13.0-17.5) Hematocrit 37.4 % (39.0-53.0) Mean Corpuscular Volume 92 fL (79-100) Mean Corpuscular Hemoglobin 30 pg (25-35) Mean Corpuscular Hemoglobin Concent 32 g/dL (31-37) Red Cell Distribution Width 16.3 % (11.5-14.5) Platelet Count 172 x10^3/uL (140-400) Neutrophils (%) (Auto) 90 % (31-73) Lymphocytes (%) (Auto) 5 % (24-48) Monocytes (%) (Auto) 5 % (0-9) Eosinophils (%) (Auto) 0 % (0-3) Basophils (%) (Auto) 0 % (0-3) Neutrophils # (Auto) 17.1 x10^3uL (1.8-7.7) Lymphocytes # (Auto) 1.0 x10^3/uL (1.0-4.8) Monocytes # (Auto) 0.9 x10^3/uL (0.0-1.1) Eosinophils # (Auto) 0.0 x10^3/uL (0.0-0.7) Basophils # (Auto) 0.0 x10^3/uL (0.0-0.2) Sodium Level 147 mmol/L (136-145) Potassium Level 4.5 mmol/L (3.5-5.1) Chloride Level 108 mmol/L (98-107) Carbon Dioxide Level 32 mmol/L (21-32) Anion Gap 7 (6-14) Blood Urea Nitrogen 45 mg/dL (8-26) Creatinine 1.1 mg/dL (0.7-1.3) Estimated GFR (Cockcroft-Gault) 65.1 BUN/Creatinine Ratio 41 (6-20) Glucose Level 154 mg/dL (70-99) Calcium Level 8.8 mg/dL (8.5-10.1) Phosphorus Level 3.2 mg/dL (2.6-4.7) Magnesium Level 2.2 mg/dL (1.8-2.4) Total Bilirubin 1.3 mg/dL (0.2-1.0) Aspartate Amino Transf (AST/SGOT) 17 U/L (15-37) Alanine Aminotransferase (ALT/SGPT) 31 U/L (16-63) Alkaline Phosphatase 59 U/L (46-116) Total Protein 6.5 g/dL (6.4-8.2) Albumin 2.7 g/dL (3.4-5.0) Albumin/Globulin Ratio 0.7 (1.0-1.7) O2 Saturation 95 % (92-99) Arterial Blood pH 7.40 (7.35-7.45) [facility] Arterial Blood pO2 at Patient Temp 83 mmHg (65-108) Arterial Blood HCO3 29 mmol/L (21-28) Arterial Blood Base Excess 3 mmol/L (-3-3) FiO2 35 Test 10/20/18 12:49 10/20/18 18:08 10/20/18 21:55 10/21/18 00:56 Glucose (Fingerstick) 149 mg/dL (70-99) 146 mg/dL (70-99) 140 mg/dL (70-99) 176 mg/dL (70-99) Laboratory Tests Test 10/20/18 07:30 10/20/18 12:49 10/20/18 18:08 10/20/18 21:55 O2 Saturation 95 % (92-99) Arterial Blood pH 7.40 (7.35-7.45) Arterial Blood pCO2 at Patient Temp 48 mmHg (35-46) Arterial Blood pO2 at Patient Temp 83 mmHg (65-108) Arterial Blood HCO3 29 mmol/L (21-28) Arterial Blood Base Excess 3 mmol/L (-3-3) FiO2 35 Glucose (Fingerstick) 149 mg/dL (70-99) 146 mg/dL (70-99) 140 mg/dL (70-99) Test 10/21/18 00:56 Glucose (Fingerstick) 176 mg/dL (70-99) Medications Active Scripts Medications Dose Route/Sig Max Daily Dose Days Date Category Proair Hfa (Albuterol Sulfate) 8.5 Gm Hfa.aer.ad 1 Puff INH PRN Q6HRS PRN 10/07/18 Reported Oxazepam 30 Mg Capsule 30 Mg PO QHS 10/07/18 Reported Comments cxr reviewed, trach, l effusion atelectasis Impression . 1. Acute on chronic hypoxemic/ hypercapnic respiratory failure, multifactorial. 2. Acute exacerbation of chronic obstructive pulmonary disease. suspect severe COPD 3. Abnormal x-ray improved. 4. Gram-negative, possible gram-positive pneumonia. 5. No history given of diabetes, hypertension or renal failure. 6. History of alcohol intake, discontinued approximately 4 years ago. 7. Possible sepsis POA, improved 8. Positive mycoplasma serology 9. EF 40%, acute sys chf 10. S/P TRACH 10/16 Plan . off STEROIDS cont vent support, setting reviewed, weaning as tolerated, monitor resp status closely PT D/W RN AND RT FOLLOW CXR WILL CONTINUE SUPPORT FOLLOW CARD CONTINUE ANTIBX PER ID DIURESE, monitor k, cr DVT GI PROPH, pepcid, heparin sq ENTERAL FEEDING discussed w rn, pt ERIN SEARS MD October 21, 2018 06:37
--- NOTE | 2018-10-21 07:30 | RAD ---
AP portable chest 10/21/2018. Reason for exam: On ventilator. Comparison is made with a study of the previous day. A tracheostomy tube remains in place along with a right side PICC line. There is still evidence of bilateral pleural fluid, similar to the prior exam. No new infiltrate is seen. The heart is unchanged and not obviously enlarged. IMPRESSION: Stable radiographic appearance. Electronically signed by: Laurent Walker Jr., MD (10/21/2018 7:27 AM) [id number]
[2018-10-21] MEDS: IPRATRPIUM/ALBUTEROL 0.5/2.5MG 3 ML NEBU. NEB SCH ×4 (08:28→19:45)
[2018-10-21] MEDS: FLUCONAZOLE 100 MG TABLET. PO SCH (09:00)
[2018-10-21] MEDS: METOCLOPRAMIDE HCL 10 MG/2 ML VIAL. IV SCH ×4 (09:09→21:34)
[2018-10-21] MEDS: ASPIRIN CHEWABLE 81 MG TABLET. PO SCH (09:10)
[2018-10-21] MEDS: FUROSEMIDE 40 MG TABLET. PO SCH (09:10)
[2018-10-21] MEDS: amLODIPine BESYLATE 5 MG TABLET PO SCH (09:10)
[2018-10-21] MEDS: DOXYCYCLINE HYCLATE 100 MG in IV DEXTROSE 5% 100ML 100 ML IV SCH ×2 (09:11→21:34)
[2018-10-21 10:09] LABS: BASO % 0 % (0-3); EOS # 0.1 x10^3/uL (0.0-0.7); EOS % 1 % (0-3); HEMATOCRIT 36.4 % (39.0-53.0); HEMOGLOBIN 11.5 g/dL (13.0-17.5); LYMPH # 1.3 x10^3/uL (1.0-4.8); LYMPH % 10 % (24-48); MEAN CORPUSCULAR HEMOGLOBIN 29 pg (25-35); MEAN CORPUSCULAR HGB CONC 32 g/dL (31-37); MEAN CORPUSCULAR VOLUME 93 fL (79-100); MONO # 0.8 x10^3/uL (0.0-1.1); MONO % 6 % (0-9); NEUT # 10.9 x10^3uL (1.8-7.7); NEUT % 83 % (31-73); PLATELET COUNT 158 x10^3/uL (140-400); RED BLOOD COUNT 3.94 x10^6/uL (4.30-5.70); RED CELL DISTRIBUTION WIDTH 16.6 % (11.5-14.5); WHITE BLOOD COUNT 13.1 x10^3/uL (4.0-11.0)
[2018-10-21 10:32] LABS: CALCIUM 8.7 mg/dL (8.5-10.1); CREATININE 1.1 mg/dL (0.7-1.3); GFR 65.1; MAGNESIUM 2.4 mg/dL (1.8-2.4); PHOSPHORUS 2.4 mg/dL (2.6-4.7); POTASSIUM 4.4 mmol/L (3.5-5.1)
--- NOTE | 2018-10-21 12:59 | PDOC ---
Infectious Disease Note Subjective Subjective pt is awake, feeling good ROS ROS no n/v/d/ Vital Sign Vital Signs Vital Signs Date Time Temp Pulse Resp B/P (MAP) Pulse Ox O2 Delivery O2 Flow Rate FiO2 10/21/18 12:04 100 Ventilator 10/21/18 12:00 68 21 122/60 (80) 10/21/18 11:00 97.3 97.3 Physical Exam PHYSICAL EXAM GENERAL: intubated, trach, sedated, mitts HENT: normal conj. PERRL. LUNGS: Clear CV: S1 S2 irregular ABD: Obese, soft, NT, BS present has a PEG feeding running, PEG in place : Jeffers in place EXT: 1 + edema lower extremities, bilaterally. No cyanosis. SKIN: warm without rash MOTIVATIONAL SPEAKER: awake, no focal deficit Labs Lab Laboratory Tests Test 10/20/18 18:08 10/20/18 21:55 10/21/18 00:56 10/21/18 06:29 Glucose (Fingerstick) 146 mg/dL (70-99) 140 mg/dL (70-99) 176 mg/dL (70-99) 132 mg/dL (70-99) Test 10/21/18 09:47 10/21/18 11:32 White Blood Count 13.1 x10^3/uL (4.0-11.0) Red Blood Count 3.94 x10^6/uL (4.30-5.70) Hemoglobin 11.5 g/dL (13.0-17.5) Hematocrit 36.4 % (39.0-53.0) Mean Corpuscular Volume 93 fL (79-100) Mean Corpuscular Hemoglobin 29 pg (25-35) Mean Corpuscular Hemoglobin Concent 32 g/dL (31-37) Red Cell Distribution Width 16.6 % (11.5-14.5) Platelet Count 158 x10^3/uL (140-400) Neutrophils (%) (Auto) 83 % (31-73) Lymphocytes (%) (Auto) 10 % (24-48) Monocytes (%) (Auto) 6 % (0-9) Eosinophils (%) (Auto) 1 % (0-3) Basophils (%) (Auto) 0 % (0-3) Neutrophils # (Auto) 10.9 x10^3uL (1.8-7.7) Lymphocytes # (Auto) 1.3 x10^3/uL (1.0-4.8) Monocytes # (Auto) 0.8 x10^3/uL (0.0-1.1) Eosinophils # (Auto) 0.1 x10^3/uL (0.0-0.7) Basophils # (Auto) 0.0 x10^3/uL (0.0-0.2) Sodium Level 146 mmol/L (136-145) Potassium Level 4.4 mmol/L (3.5-5.1) Chloride Level 108 mmol/L (98-107) Carbon Dioxide Level 34 mmol/L (21-32) Anion Gap 4 (6-14) Blood Urea Nitrogen 46 mg/dL (8-26) Creatinine 1.1 mg/dL (0.7-1.3) Estimated GFR (Cockcroft-Gault) 65.1 Glucose Level 212 mg/dL (70-99) Calcium Level 8.7 mg/dL (8.5-10.1) Phosphorus Level 2.4 mg/dL (2.6-4.7) Magnesium Level 2.4 mg/dL (1.8-2.4) Glucose (Fingerstick) 206 mg/dL (70-99) Micro Microbiology 10/07/18 Blood Culture - Final, Complete NO GROWTH AFTER 5 DAYS 10/08/18 - Final, Complete 10/08/18 - Final, Complete 10/08/18 - Final, Complete 10/08/18 - Final, Complete 10/08/18 - Final, Complete 10/08/18 Gram Stain Evaluation - Final, Complete 10/08/18 Sputum Culture - Final, Complete 10/08/18 Sputum Result 1 - Final, Complete 10/07/18 Urine Culture - Final, Complete 10/07/18 Urine Culture Result 1 (ELEN) - Final, Complete 10/07/18 Antimicrobic Susceptibility - Final, Complete Objective Assessment Fever - resolved Pneumonia + mycoplasma 10/08 - on Doxy 10/09. Sputum cult - routine raheel/ Strep and Legionella - neg UTI, POA staph sap NSTEMI Lactic acidosis - improved Allergy PCN w/ hives and throat swelling; erythromycin w/ hives. Leukocytosis - on steroids - better Hypotension, now off Levophed gtt Acute encephalopathy - improving Acute respiratory failure s/p intubation ALEX - better COPD, O2 dependent Plan Plan of Care ok to d/c to [facility] cont antibiotics JEANNE WRAY MD October 21, 2018 12:58
--- NOTE | 2018-10-21 13:00 | PDOC ---
[employer] PROGRESS NOTE Chief Complaint Chief Complaint Assessment: New Trach and PEG Fulminant respiratory failure End-stage COPD Clinical pneumonia MORBID OBESITY Possible sepsis UTI- Staphylococcus saprophyticus. Greater than 100,000 colony forming units per mL Noncompliance Pneumonia + mycoplasma 10/08 - on Doxy 10/09 hypercapnic resp failure poor prognosis azotemia wants full aggressive care be continued including tracheostomy and PEG tube History of Present Illness History of Present Illness Patient was seen and examined in the ICU He has a trach (day 4) remains unable to speak, still is alert and able to communicate PEG feeds had high residuals so maintaining TPN, PEG (day 4) Vent set to AC at 22, VC 500, PEEP 5, 35% FiO2 Discussed with RN Vitals Vitals Vital Signs Date Time Temp Pulse Resp B/P (MAP) Pulse Ox O2 Delivery O2 Flow Rate FiO2 10/21/18 12:04 100 Ventilator 10/21/18 12:00 68 21 122/60 (80) 10/21/18 11:00 97.3 97.3 Physical Exam Physical Exam GENERAL: intubated, trach, sedated, mitts HENT: normal conj. PERRL. LUNGS: Clear CV: S1 S2 irregular ABD: Obese, soft, NT, BS present has a PEG feeding running, PEG in place : Jeffers in place EXT: 1 + edema lower extremities, bilaterally. No cyanosis. SKIN: warm without rash CLAIMS COLLECTOR: awake, no focal deficit General: Alert, No acute distress, Other (Tracheostomy/Vent unable to speak) Heart: Regular rate, Normal S1, Normal S2 Lungs: Crackles Abdomen: Soft, No tenderness Extremities: No cyanosis, Other (trace edema) Skin: No significant lesion Labs Labs: Laboratory Tests Test 10/20/18 12:49 10/20/18 18:08 10/20/18 21:55 10/21/18 00:56 Glucose (Fingerstick) 149 mg/dL (70-99) 146 mg/dL (70-99) 140 mg/dL (70-99) 176 mg/dL (70-99) Test 10/21/18 06:29 10/21/18 09:47 10/21/18 11:32 Glucose (Fingerstick) 132 mg/dL (70-99) 206 mg/dL (70-99) White Blood Count 13.1 x10^3/uL (4.0-11.0) Red Blood Count 3.94 x10^6/uL (4.30-5.70) Hemoglobin 11.5 g/dL (13.0-17.5) Hematocrit 36.4 % (39.0-53.0) Mean Corpuscular Volume 93 fL (79-100) Mean Corpuscular Hemoglobin 29 pg (25-35) Mean Corpuscular Hemoglobin Concent 32 g/dL (31-37) Red Cell Distribution Width 16.6 % (11.5-14.5) Platelet Count 158 x10^3/uL (140-400) Neutrophils (%) (Auto) 83 % (31-73) Lymphocytes (%) (Auto) 10 % (24-48) Monocytes (%) (Auto) 6 % (0-9) Eosinophils (%) (Auto) 1 % (0-3) Basophils (%) (Auto) 0 % (0-3) Neutrophils # (Auto) 10.9 x10^3uL (1.8-7.7) Lymphocytes # (Auto) 1.3 x10^3/uL (1.0-4.8) Monocytes # (Auto) 0.8 x10^3/uL (0.0-1.1) Eosinophils # (Auto) 0.1 x10^3/uL (0.0-0.7) Basophils # (Auto) 0.0 x10^3/uL (0.0-0.2) Sodium Level 146 mmol/L (136-145) Potassium Level 4.4 mmol/L (3.5-5.1) Chloride Level 108 mmol/L (98-107) Carbon Dioxide Level 34 mmol/L (21-32) Anion Gap 4 (6-14) Blood Urea Nitrogen 46 mg/dL (8-26) Creatinine 1.1 mg/dL (0.7-1.3) Estimated GFR (Cockcroft-Gault) 65.1 Glucose Level 212 mg/dL (70-99) Calcium Level 8.7 mg/dL (8.5-10.1) Phosphorus Level 2.4 mg/dL (2.6-4.7) Magnesium Level 2.4 mg/dL (1.8-2.4) Review of Systems Review of Systems Patient complains of dry mouth Patient denies abdominal pain Assessment and Plan Assessmemt and Plan Problems Medical Problems: (1) Acute respiratory distress Status: Acute (2) CAP (community acquired pneumonia) Status: Acute (3) CHF (congestive heart failure) Status: Acute (4) Elevated liver function tests Status: Acute (5) Elevated troponin I level Status: Acute (6) Hyperkalemia Status: Acute (7) Renal insufficiency Status: Acute (8) Sepsis Status: Acute (9) Unresponsiveness Status: Acute (10) Urinary tract infection Status: Acute Assessment: New Trach and PEG Fulminant respiratory failure End-stage COPD Clinical pneumonia MORBID OBESITY Possible sepsis UTI- Staphylococcus saprophyticus. Greater than 100,000 colony forming units per mL Noncompliance Pneumonia + mycoplasma 10/08 - on Doxy 10/09 hypercapnic resp failure poor prognosis azotemia Plan: Vent weaning ICU monitoring TPN due to high residuals with PEG feeds Ativan Frequent labs Home meds if possible LTAC eval- in progress DVT prophylaxis Pulm, Cards, ID, Nephro, GI consulted appreciate input Long-term prognosis guarded Total time 34 min Comment Review of Relevant I have reviewed the following items akbar (where applicable) has been applied. Labs Laboratory Tests Test 10/19/18 17:48 10/19/18 20:46 10/20/18 00:22 10/20/18 05:33 Glucose (Fingerstick) 142 mg/dL (70-99) 159 mg/dL (70-99) 151 mg/dL (70-99) 141 mg/dL (70-99) Test 10/20/18 05:51 10/20/18 07:30 10/20/18 12:49 10/20/18 18:08 White Blood Count 19.0 x10^3/uL (4.0-11.0) Red Blood Count 4.06 x10^6/uL (4.30-5.70) Hemoglobin 12.1 g/dL (13.0-17.5) Hematocrit 37.4 % (39.0-53.0) Mean Corpuscular Volume 92 fL (79-100) Mean Corpuscular Hemoglobin 30 pg (25-35) Mean Corpuscular Hemoglobin Concent 32 g/dL (31-37) Red Cell Distribution Width 16.3 % (11.5-14.5) Platelet Count 172 x10^3/uL (140-400) Neutrophils (%) (Auto) 90 % (31-73) Lymphocytes (%) (Auto) 5 % (24-48) Monocytes (%) (Auto) 5 % (0-9) Eosinophils (%) (Auto) 0 % (0-3) Basophils (%) (Auto) 0 % (0-3) Neutrophils # (Auto) 17.1 x10^3uL (1.8-7.7) Lymphocytes # (Auto) 1.0 x10^3/uL (1.0-4.8) Monocytes # (Auto) 0.9 x10^3/uL (0.0-1.1) Eosinophils # (Auto) 0.0 x10^3/uL (0.0-0.7) Basophils # (Auto) 0.0 x10^3/uL (0.0-0.2) Sodium Level 147 mmol/L (136-145) Potassium Level 4.5 mmol/L (3.5-5.1) Chloride Level 108 mmol/L (98-107) Carbon Dioxide Level 32 mmol/L (21-32) Anion Gap 7 (6-14) Blood Urea Nitrogen 45 mg/dL (8-26) Creatinine 1.1 mg/dL (0.7-1.3) Estimated GFR (Cockcroft-Gault) 65.1 BUN/Creatinine Ratio 41 (6-20) Glucose Level 154 mg/dL (70-99) Calcium Level 8.8 mg/dL (8.5-10.1) Phosphorus Level 3.2 mg/dL (2.6-4.7) Magnesium Level 2.2 mg/dL (1.8-2.4) Total Bilirubin 1.3 mg/dL (0.2-1.0) Aspartate Amino Transf (AST/SGOT) 17 U/L (15-37) Alanine Aminotransferase (ALT/SGPT) 31 U/L (16-63) Alkaline Phosphatase 59 U/L (46-116) Total Protein 6.5 g/dL (6.4-8.2) Albumin 2.7 g/dL (3.4-5.0) Albumin/Globulin Ratio 0.7 (1.0-1.7) O2 Saturation 95 % (92-99) Arterial Blood pH 7.40 (7.35-7.45) Arterial Blood pCO2 at Patient Temp 48 mmHg (35-46) Arterial Blood pO2 at Patient Temp 83 mmHg (65-108) Arterial Blood HCO3 29 mmol/L (21-28) Arterial Blood Base Excess 3 mmol/L (-3-3) FiO2 35 Glucose (Fingerstick) 149 mg/dL (70-99) 146 mg/dL (70-99) Test 10/20/18 21:55 10/21/18 00:56 10/21/18 06:29 10/21/18 09:47 Glucose (Fingerstick) 140 mg/dL (70-99) 176 mg/dL (70-99) 132 mg/dL (70-99) White Blood Count 13.1 x10^3/uL (4.0-11.0) Red Blood Count 3.94 x10^6/uL (4.30-5.70) Hemoglobin 11.5 g/dL (13.0-17.5) Hematocrit 36.4 % (39.0-53.0) Mean Corpuscular Volume 93 fL (79-100) Mean Corpuscular Hemoglobin 29 pg (25-35) Mean Corpuscular Hemoglobin Concent 32 g/dL (31-37) Red Cell Distribution Width 16.6 % (11.5-14.5) Platelet Count 158 x10^3/uL (140-400) Neutrophils (%) (Auto) 83 % (31-73) Lymphocytes (%) (Auto) 10 % (24-48) Monocytes (%) (Auto) 6 % (0-9) Eosinophils (%) (Auto) 1 % (0-3) Basophils (%) (Auto) 0 % (0-3) Neutrophils # (Auto) 10.9 x10^3uL (1.8-7.7) Lymphocytes # (Auto) 1.3 x10^3/uL (1.0-4.8) Monocytes # (Auto) 0.8 x10^3/uL (0.0-1.1) Eosinophils # (Auto) 0.1 x10^3/uL (0.0-0.7) Basophils # (Auto) 0.0 x10^3/uL (0.0-0.2) Sodium Level 146 mmol/L (136-145) Potassium Level 4.4 mmol/L (3.5-5.1) Chloride Level 108 mmol/L (98-107) Carbon Dioxide Level 34 mmol/L (21-32) Anion Gap 4 (6-14) Blood Urea Nitrogen 46 mg/dL (8-26) Creatinine 1.1 mg/dL (0.7-1.3) Estimated GFR (Cockcroft-Gault) 65.1 Glucose Level 212 mg/dL (70-99) Calcium Level 8.7 mg/dL (8.5-10.1) Phosphorus Level 2.4 mg/dL (2.6-4.7) Magnesium Level 2.4 mg/dL (1.8-2.4) Test 10/21/18 11:32 Glucose (Fingerstick) 206 mg/dL (70-99) Laboratory Tests Test 10/20/18 12:49 10/20/18 18:08 10/20/18 21:55 10/21/18 00:56 Glucose (Fingerstick) 149 mg/dL (70-99) 146 mg/dL (70-99) 140 mg/dL (70-99) 176 mg/dL (70-99) Test 10/21/18 06:29 10/21/18 09:47 10/21/18 11:32 Glucose (Fingerstick) 132 mg/dL (70-99) 206 mg/dL (70-99) White Blood Count 13.1 x10^3/uL (4.0-11.0) Red Blood Count 3.94 x10^6/uL (4.30-5.70) Hemoglobin 11.5 g/dL (13.0-17.5) Hematocrit 36.4 % (39.0-53.0) Mean Corpuscular Volume 93 fL (79-100) Mean Corpuscular Hemoglobin 29 pg (25-35) Mean Corpuscular Hemoglobin Concent 32 g/dL (31-37) Red Cell Distribution Width 16.6 % (11.5-14.5) Platelet Count 158 x10^3/uL (140-400) Neutrophils (%) (Auto) 83 % (31-73) Lymphocytes (%) (Auto) 10 % (24-48) Monocytes (%) (Auto) 6 % (0-9) Eosinophils (%) (Auto) 1 % (0-3) Basophils (%) (Auto) 0 % (0-3) Neutrophils # (Auto) 10.9 x10^3uL (1.8-7.7) Lymphocytes # (Auto) 1.3 x10^3/uL (1.0-4.8) Monocytes # (Auto) 0.8 x10^3/uL (0.0-1.1) Eosinophils # (Auto) 0.1 x10^3/uL (0.0-0.7) Basophils # (Auto) 0.0 x10^3/uL (0.0-0.2) Sodium Level 146 mmol/L (136-145) Potassium Level 4.4 mmol/L (3.5-5.1) Chloride Level 108 mmol/L (98-107) Carbon Dioxide Level 34 mmol/L (21-32) Anion Gap 4 (6-14) Blood Urea Nitrogen 46 mg/dL (8-26) Creatinine 1.1 mg/dL (0.7-1.3) Estimated GFR (Cockcroft-Gault) 65.1 Glucose Level 212 mg/dL (70-99) Calcium Level 8.7 mg/dL (8.5-10.1) Phosphorus Level 2.4 mg/dL (2.6-4.7) Magnesium Level 2.4 mg/dL (1.8-2.4) Microbiology 10/07/18 Blood Culture - Final, Complete NO GROWTH AFTER 5 DAYS 10/08/18 - Final, Complete 10/08/18 - Final, Complete 10/08/18 - Final, Complete 10/08/18 - Final, Complete 10/08/18 - Final, Complete 10/08/18 Gram Stain Evaluation - Final, Complete 10/08/18 Sputum Culture - Final, Complete 10/08/18 Sputum Result 1 - Final, Complete 10/07/18 Urine Culture - Final, Complete 10/07/18 Urine Culture Result 1 (ELEN) - Final, Complete 10/07/18 Antimicrobic Susceptibility - Final, Complete Medications Current Medications Sodium Chloride 1,000 ml @ 1,000 mls/hr Q1H IV Last administered on 10/07/18at 11:27; Start 10/07/18 at 10:52; Stop 10/07/18 at 11:51; Status DC Midazolam HCl 100 ml @ 1 mls/hr 1X ONCE IV Last administered on 10/07/18at 11:20; Start 10/07/18 at 11:15; Stop 10/09/18 at 15:55; Status DC Etomidate (Amidate) 20 mg STK-MED ONCE IV ; Start 10/07/18 at 11:13; Stop 10/07/18 at 11:14; Status DC Succinylcholine Chloride (Anectine) 200 mg STK-MED ONCE .ROUTE ; Start 10/07/18 at 11:13; Stop 10/07/18 at 11:14; Status DC Etomidate (Amidate) 20 mg 1X ONCE IV Last administered on 10/07/18at 11:01; Start 10/07/18 at 11:30; Stop 10/07/18 at 11:33; Status DC Succinylcholine Chloride (Anectine) 100 mg 1X ONCE IV Last administered on 10/07/18at 11:01; Start 10/07/18 at 11:30; Stop 10/07/18 at 11:33; Status DC Albuterol Sulfate (Ventolin Neb Soln) 10 mg 1X ONCE CONT NEB ; Start 10/07/18 at 12:00; Stop 10/07/18 at 12:01; Status DC Methylprednisolone Sodium Succinate (SOLU-Medrol 125MG VIAL) 125 mg 1X ONCE IV Last administered on 10/07/18at 11:52; Start 10/07/18 at 12:00; Stop 10/07/18 at 12:01; Status DC Vancomycin HCl 250 ml @ 250 mls/hr 1X ONCE IV Last administered on 10/07/18at 12:27; Start 10/07/18 at 12:00; Stop 10/07/18 at 12:59; Status DC Levofloxacin/ Dextrose 150 ml @ 100 mls/hr 1X ONCE IV Last administered on 10/07/18at 12:28; Start 10/07/18 at 12:00; Stop 10/07/18 at 13:29; Status DC Sodium Chloride 1,000 ml @ 1,000 mls/hr 1X ONCE IV Last administered on 10/07/18at 12:57; Start 10/07/18 at 12:45; Stop 10/07/18 at 13:44; Status DC Sodium Chloride 1,000 ml @ 1,000 mls/hr 1X ONCE IV Last administered on 10/07/18at 12:58; Start 10/07/18 at 12:45; Stop 10/07/18 at 13:44; Status DC Dextrose (Dextrose 50%-Water Syringe) 25 gm 1X ONCE IV Last administered on 10/07/18at 12:59; Start 10/07/18 at 12:45; Stop 10/07/18 at 12:46; Status DC Insulin Human Regular (HumuLIN R VIAL) 10 unit 1X ONCE IV Last administered on 10/07/18at 13:00; Start 10/07/18 at 12:45; Stop 10/07/18 at 12:46; Status DC Sodium Bicarbonate (Sodium Bicarb Adult 8.4% Syr) 50 meq 1X ONCE IV Last administered on 10/07/18at 13:07; Start 10/07/18 at 12:45; Stop 10/07/18 at 12:46 ; Status DC Sodium Chloride 1,000 ml @ 100 mls/hr Q10H IV ; Start 10/07/18 at 16:00; Stop 10/07/18 at 16:00; Status DC Pantoprazole Sodium (PROTONIX VIAL for IV PUSH) 40 mg DAILYAC IVP Last administered on 10/08/18at 08:25; Start 10/07/18 at 13:30; Stop 10/08/18 at 09:54; Status DC Pantoprazole Sodium (PROTONIX VIAL for IV PUSH) 40 mg 1X ONCE IVP ; Start 10/07/18 at 12:45; Stop 10/07/18 at 12:46; Status UNV Heparin Sodium (Porcine) (Heparin Sodium) 5,000 unit Q8HRS SQ Last administered on 10/21/18at 06:31; Start 10/07/18 at 14:00 Levofloxacin/ Dextrose (Levaquin Per Pharmacy) 1 each PRN DAILY PRN MC SEE COMMENTS; Start 10/07/18 at 12:45; Stop 10/08/18 at 07:33; Status DC Insulin Human Lispro (HumaLOG) 0-9 UNITS TIDWMEALS SQ ; Start 10/07/18 at 17:00; Stop 10/07/18 at 17:00; Status DC Dextrose (Dextrose 50%-Water Syringe) 12.5 gm PRN Q15MIN PRN IV SEE COMMENTS; Start 10/07/18 at 12:45 Albuterol/ Ipratropium (Duoneb) 3 ml RTQID NEB ; Start 10/07/18 at 16:00; Status Cancel Methylprednisolone Sodium Succinate (SOLU-Medrol 40MG VIAL) 40 mg Q8HRS IV Last administered on 10/14/18at 05:48; Start 10/07/18 at 22:00; Stop 10/14/18 at 09:29; Status DC Acetaminophen (Tylenol) 650 mg PRN Q6HRS PRN PEG MILD PAIN / TEMP Last administered on 10/08/18at 08:25; Start 10/07/18 at 12:45 Morphine Sulfate (Morphine Sulfate) 2 mg PRN Q2HR PRN IV PAIN, 1ST CHOICE Last administered on 10/21/18at 11:29; Start 10/07/18 at 12:45 Ondansetron HCl (Zofran) 4 mg PRN Q6HRS PRN IV NAUSEA/VOMITING Last administered on 10/20/18at 00:05; Start 10/07/18 at 12:45 Norepinephrine Bitartrate 250 ml @ 1.875 mls/ hr CONT PRN IV SEE I/O RECORD Last administered on 10/07/18at 14:01; Start 10/07/18 at 14:00 Sodium Chloride 1,000 ml @ 150 mls/hr Q6H40M IV Last administered on 10/08/18at 15:09; Start 10/07/18 at 14:00; Stop 10/08/18 at 13:59; Status DC Calcium Gluconate (Calcium Gluconate) 1,000 mg 1X ONCE IVP ; Start 10/07/18 at 13:30; Stop 10/07/18 at 13:31; Status Cancel Sodium Polystyrene Sulfonate (Kayexalate) 15 gm 1X ONCE PO Last administered on 10/07/18at 14:10; Start 10/07/18 at 13:30; Stop 10/07/18 at 13:31; Status DC Pantoprazole Sodium (PROTONIX VIAL for IV PUSH) 40 mg STK-MED ONCE IVP ; Start 10/07/18 at 12:52; Stop 10/07/18 at 12:55; Status DC Levofloxacin/ Dextrose 150 ml @ 100 mls/hr Q48H IV ; Start 10/09/18 at 12:00; Stop 10/09/18 at 12:00; Status DC Calcium Gluconate 1000 mg/Sodium Chloride 110 ml @ 220 mls/hr 1X ONCE IV Last administered on 10/07/18at 14:23; Start 10/07/18 at 15:00; Stop 10/07/18 at 15:29; Status DC Sodium Chloride 1,000 ml @ 1,000 mls/hr 1X ONCE IV Last administered on 10/07/18at 14:50; Start 10/07/18 at 15:00; Stop 10/07/18 at 15:59; Status DC Sodium Chloride 1,000 ml @ 999 mls/hr 1X ONCE IV ; Start 10/07/18 at 15:00; Stop 10/07/18 at 16:00; Status DC Albuterol Sulfate (Ventolin Neb Soln) 2.5 mg PRN Q2HR PRN NEB DYSPNEA; Start 10/07/18 at 15:00 Albuterol/ Ipratropium (Duoneb) 3 ml RTQID NEB Last administered on 10/21/18at 12:04; Start 10/07/18 at 16:00 Insulin Human Lispro (HumaLOG) 0-9 UNITS Q6HRS SQ Last administered on 10/21/18at 11:34; Start 10/07/18 at 18:00 Meropenem 500 mg/ Sodium Chloride 50 ml @ 100 mls/hr Q8HRS IV Last administered on 10/20/18at 05:36; Start 10/07/18 at 17:00; Stop 10/20/18 at 09:03; Status DC Midazolam HCl 100 ml @ 5 mls/hr CONT PRN IV SEE I/O RECORD Last administered on 10/18/18at 18:44; Start 10/08/18 at 04:15 Lactobacillus Rhamnosus (Culturelle) 1 cap BID PO ; Start 10/08/18 at 09:00; Stop 10/09/18 at 15:58; Status DC Famotidine (Pepcid Vial) 20 mg QHS IVP Last administered on 10/20/18at 20:35; Start 10/08/18 at 21:00 Linezolid/Dextrose 300 ml @ 300 mls/hr Q12HR IV Last administered on 10/09/18at 20:58; Start 10/08/18 at 11:30; Stop 10/10/18 at 07:24; Status DC Doxycycline Hyclate 100 mg/ Dextrose 100 ml @ 50 mls/hr Q12HR IV Last administered on 10/21/18 09:11; Start 10/09/18 at 13:00 Aspirin (Ecotrin) 81 mg DAILYWBKFT PO Last administered on 10/18/18 08:39; Start 10/10/18 at 08:00; Stop 10/18/18 at 09:01; Status DC Furosemide (Lasix) 40 mg 1X ONCE IVP Last administered on 10/11/18 08:36; Start 10/11/18 at 09:00; Stop 10/11/18 at 09:01; Status DC Lisinopril (Prinivil) 10 mg DAILY PO Last administered on 10/14/18 08:03; Start 10/11/18 at 14:00; Stop 10/15/18 at 09:46; Status DC Furosemide (Lasix) 40 mg DAILY IVP Last administered on 10/18/18 08:40; Start 10/12/18 at 12:30; Stop 10/18/18 at 14:22; Status DC Amlodipine Besylate (Norvasc) 5 mg DAILY PO Last administered on 10/21/18 09:10; Start 10/12/18 at 12:30 Hydralazine HCl (Apresoline Inj) 10 mg PRN Q4HRS PRN IVP ELEVATED BP, SEE COMMENTS Last administered on 10/20/18 04:00; Start 10/12/18 at 11:45 Insulin Glargine (Lantus) 10 units QHS SQ Last administered on 10/20/18 21:58; Start 10/13/18 at 21:00 Ondansetron HCl (Zofran) 4 mg PRN Q6HRS PRN IV NAUSEA/VOMITING; Start 10/16/18 at 07:00; Stop 10/17/18 at 06:59; Status DC Fentanyl Citrate (Fentanyl 2ml Vial) 25 mcg PRN Q5MIN PRN IV MILD PAIN 1-3; Start 10/16/18 at 07:00; Stop 10/17/18 at 06:59; Status DC Fentanyl Citrate (Fentanyl 2ml Vial) 50 mcg PRN Q5MIN PRN IV MODERATE TO SEVERE PAIN Last administered on 10/17/18at 00:36; Start 10/16/18 at 07:00; Stop 10/17/18 at 06:59; Status DC Morphine Sulfate (Morphine Sulfate) 1 mg PRN Q10MIN PRN IV SEVERE PAIN 7-10; Start 10/16/18 at 07:00; Stop 10/17/18 at 06:59; Status DC Ringer's Solution 1,000 ml @ 30 mls/hr Q24H IV ; Start 10/16/18 at 07:00; Stop 10/16/18 at 18:59; Status DC Lidocaine HCl (Xylocaine-Mpf 1% 2ml Vial) 2 ml PRN 1X PRN ID PRIOR TO IV START; Start 10/16/18 at 07:00; Stop 10/17/18 at 06:59; Status DC Hydromorphone HCl (Dilaudid) 0.5 mg PRN Q10MIN PRN IV SEV PAIN, Second choice; Start 10/16/18 at 07:00; Stop 10/17/18 at 06:59; Status DC Prochlorperazine Edisylate (Compazine) 5 mg PACU PRN PRN IV NAUSEA, MRX1; Start 10/16/18 at 07:00; Stop 10/17/18 at 06:59; Status DC Fentanyl Citrate (Fentanyl 2ml Vial) 50 mcg PRN Q2HR PRN IV PAIN, 2ND CHOICE Last administered on 10/20/18at 14:01; Start 10/14/18 at 00:30 Methylprednisolone Sodium Succinate (SOLU-Medrol 40MG VIAL) 40 mg Q12HR IV Last administered on 10/15/18at 08:28; Start 10/14/18 at 21:00; Stop 10/15/18 at 09:16; Status DC Methylprednisolone Sodium Succinate (SOLU-Medrol 40MG VIAL) 40 mg DAILY IV Last administered on 10/20/18at 08:05; Start 10/16/18 at 09:00; Stop 10/20/18 at 13: 10; Status DC Sodium Chloride 500 ml @ 500 mls/hr 1X ONCE IV Last administered on 10/15/18at 09:59; Start 10/15/18 at 09:30; Stop 10/15/18 at 10:29; Status DC Sodium Chloride 1,000 ml @ 75 mls/hr [id number] IV Last administered on 10/17/18at 05:19; Start 10/15/18 at 11:45; Stop 10/17/18 at 17:11; Status DC Bisacodyl (Dulcolax Supp) 10 mg PRN DAILY PRN [place] CONSTIPATION Last administered on 10/19/18at 08:06; Start 10/15/18 at 13:30 Midazolam HCl (Versed) 2 mg STK-MED ONCE .ROUTE ; Start 10/16/18 at 12:36; Stop 10/16/18 at 12:37; Status DC Fentanyl Citrate (Fentanyl 2ml Vial) 100 mcg STK-MED ONCE .ROUTE ; Start 10/16/18 at 12:36; Stop 10/16/18 at 12:37; Status DC Rocuronium Bowlegs (Zemuron) 50 mg STK-MED ONCE .ROUTE ; Start 10/16/18 at 12:36; Stop 10/16/18 at 12:37; Status DC Neostigmine Methylsulfate (Neostigmine Methylsulfate) 5 mg STK-MED ONCE .ROUTE ; Start 10/16/18 at 13:27; Stop 10/16/18 at 13:28; Status DC Glycopyrrolate (Robinul) 1 mg STK-MED ONCE .ROUTE ; Start 10/16/18 at 13:27; Stop 10/16/18 at 13:28; Status DC Sevoflurane (Ultane) 30 ml STK-MED ONCE IH ; Start 10/16/18 at 13:36; Stop 10/16/18 at 13:37; Status DC Ringer's Solution 1,000 ml @ 50 mls/hr Q20H IV ; Start 10/17/18 at 07:00; Stop 10/17/18 at 18:59; Status DC Atorvastatin Calcium (Lipitor) 10 mg QHS PO Last administered on 10/20/18at 20:35; Start 10/17/18 at 21:00 Sodium Chloride 1,000 ml @ 75 mls/hr [id number] IV Last administered on 10/18/18at 08:48; Start 10/17/18 at 17:15; Stop 10/18/18 at 14:22; Status DC Aspirin (Children'S Aspirin) 81 mg DAILYWBKFT PO Last administered on 10/21/18at 09:10; Start 10/19/18 at 08:00 Furosemide (Lasix) 40 mg DAILY PO Last administered on 10/21/18at 09:10; Start 10/19/18 at 09:00 Metoclopramide HCl (Reglan Vial) 5 mg QIDACHS IV Last administered on 10/20/18 11:09; Start 10/19/18 at 11:30; Stop 10/20/18 at 12:42; Status DC Alteplase, Recombinant (Cathflo For Central Catheter Clearance) 1 mg 1X ONCE INT CAT Last administered on 10/19/18at 17:05; Start 10/19/18 at 16:45; Stop 10/19/18 at 16:48; Status DC Alteplase, Recombinant (Cathflo For Central Catheter Clearance) 1 mg 1X ONCE INT CAT Last administered on 10/19/18at 17:05; Start 10/19/18 at 16:45; Stop 10/19/18 at 16:48; Status DC Fluconazole (Diflucan) 200 mg DAILY PO Last administered on 10/21/18 09:00; Start 10/20/18 at 11:00 Info (Tpn Per Pharmacy) 1 each PRN DAILY PRN MC SEE COMMENTS Last administered on 10/20/18at 11:49; Start 10/20/18 at 10:00 Lorazepam (Ativan Inj) 1 mg PRN Q6HRS PRN IV ANXIETY / AGITATION Last administered on 10/21/18 09:09; Start 10/20/18 at 10:30 Sodium Chloride 20 meq/Potassium Acetate 50 meq/ Potassium Phosphate 13.6 mmol/Magnesium Sulfate 10 meq/ Calcium Gluconate 10 meq/ Multivitamins 10 ml/Chromium/ Copper/Manganese/ Seleni/Zn 1 ml/ Total Parenteral Nutrition/Amino Acids/Dextrose/ Fat Emulsion Intravenous 1,512 ml @ 63 mls/hr TPN CONT IV Last administered on 10/20/18at 21:59; Start 10/20/18 at 22:00; Stop 10/21/18 at 21:59 Metoclopramide HCl (Reglan Vial) 10 mg QIDACHS IV Last administered on 10/21/18at 11:37; Start 10/20/18 at 16:30 Dexmedetomidine HCl 200 mcg/ Sodium Chloride 50 ml @ 0 mls/hr CONT PRN IV PER PROTOCOL; Start 10/20/18 at 15:15; Status UNV Sodium Chloride 500 ml @ 500 mls/hr 1X PRN PRN IV SEE COMMENTS; Start 10/20/18 at 15:15; Status UNV Atropine Sulfate (ATROPINE 0.5mg SYRINGE) 0.5 mg PRN Q5MIN PRN IV SEE COMMENTS; Start 10/20/18 at 15:15; Status UNV Active Scripts Active Reported Proair Hfa (Albuterol Sulfate) 8.5 Gm Hfa.aer.ad 1 Puff INH PRN Q6HRS PRN Oxazepam 30 Mg Capsule 30 Mg PO QHS Vitals/I & O Vital Sign - Last 24 Hours 10/20/18 10/20/18 10/20/18 10/20/18 13:00 13:01 14:00 14:01 Pulse 68 57 Resp 18 20 16 25 B/P (MAP) 170/62 (98) 158/60 (92) Pulse Ox 99 99 99 98 O2 Delivery Ventilator Ventilator Ventilator 10/20/18 10/20/18 10/20/18 10/20/18 14:35 15:00 15:15 16:00 Temp 98.4 98.4 Pulse 58 69 Resp 20 16 22 B/P (MAP) 115/52 (73) 166/68 (100) Pulse Ox 96 98 98 99 O2 Delivery Ventilator Ventilator Ventilator Ventilator 10/20/18 10/20/18 10/20/18 10/20/18 16:00 16:33 17:00 17:04 Pulse 80 Resp 20 B/P (MAP) 159/66 (97) Pulse Ox 100 99 98 O2 Delivery Mechanical Ventilator Ventilator Ventilator Ventilator 10/20/18 10/20/18 10/20/18 10/20/18 18:00 19:00 19:26 19:27 Pulse 98 82 Resp 22 22 B/P (MAP) 168/72 (104) 162/58 (92) Pulse Ox 99 99 83 96 O2 Delivery Ventilator Ventilator Ventilator Ventilator 10/20/18 10/20/18 10/20/18 10/20/18 20:00 20:00 20:36 21:00 Temp 98.1 98.1 Pulse 82 80 Resp 22 22 B/P (MAP) 149/72 (97) 136/81 (99) Pulse Ox 99 96 99 O2 Delivery Mechanical Ventilator Ventilator Ventilator Ventilator 10/20/18 10/20/18 10/20/18 10/21/18 22:00 22:01 23:00 00:00 Pulse 74 60 Resp 22 22 B/P (MAP) 123/62 (82) 99/52 (68) Pulse Ox 99 99 99 O2 Delivery Ventilator Ventilator Ventilator Mechanical Ventilator 10/21/18 10/21/18 10/21/18 10/21/18 00:01 00:23 00:53 01:00 Temp 99.1 99.1 Pulse 60 68 Resp 22 22 B/P (MAP) 146/68 (94) Pulse Ox 99 100 100 100 O2 Delivery Ventilator Ventilator Ventilator Ventilator 10/21/18 10/21/18 10/21/18 10/21/18 02:00 02:49 03:00 03:51 Pulse 56 67 Resp 22 22 B/P (MAP) 120/72 (88) 156/86 (109) Pulse Ox 100 100 100 100 O2 Delivery Ventilator Ventilator Ventilator 10/21/18 10/21/18 10/21/18 10/21/18 04:00 04:00 04:26 05:00 Temp 99.0 99.0 Pulse 61 54 Resp 22 20 B/P (MAP) 144/71 (95) Pulse Ox 99 100 99 O2 Delivery Ventilator Mechanical Ventilator Ventilator Ventilator 10/21/18 10/21/18 10/21/18 10/21/18 06:00 06:41 07:00 08:00 Temp 99.0 99.0 Pulse 66 63 Resp 22 21 B/P (MAP) 113/60 (77) 145/74 (97) Pulse Ox 100 100 98 O2 Delivery Ventilator Ventilator Mechanical Ventilator 10/21/18 10/21/18 10/21/18 10/21/18 08:00 08:28 09:00 09:10 Pulse 54 74 62 Resp 21 21 B/P (MAP) 153/60 (91) 156/62 (93) 156/62 Pulse Ox 98 98 99 O2 Delivery Ventilator Ventilator Ventilator 10/21/18 10/21/18 10/21/18 10/21/18 10:00 11:00 11:29 11:59 Temp 97.3 97.3 Pulse 77 94 Resp 21 24 31 21 B/P (MAP) 169/56 (93) 106/60 (75) Pulse Ox 99 100 99 100 O2 Delivery Ventilator Ventilator Ventilator 10/21/18 10/21/18 10/21/18 12:00 12:00 12:04 Pulse 68 Resp 21 B/P (MAP) 122/60 (80) Pulse Ox 100 100 O2 Delivery Ventilator Mechanical Ventilator Ventilator Intake and Output 10/20/18 10/20/18 10/21/18 15:00 23:00 07:00 Intake Total 350 ml 339 ml 764 ml Output Total 875 ml 850 ml 740 ml Balance -525 ml -511 ml 24 ml RAJIV PEREZ K III DO October 21, 2018 13:00
[2018-10-21] MEDS: TPN PER PHARMACY MC PRN (13:10)
--- NOTE | 2018-10-21 13:14 | NUR ---
Pharmacy TPN Dosing Note S: JOSLYN SOTELO is a 78 year old M Currently receiving Central Continuous TPN started 10/20/18 B:Pertinent PMH: Unable to tolerate tube feeding Height: 5 feet, 10 inches Weight: 101.972380 kg Current diet: NPO LABS: Sodium: 146 Potassium: 4.4 Chloride: 108 Calcium: 8.8 Corrected Calcium: 9.84 Magnesium: 2.4 CO2: 34 SCr: 1.1 Glucose: 212 Albumin: 2.7 AST: 17 ALT: 31 TPN FORMULA: TPN TYPE: Central Continuous AMINO ACIDS: 120 gm DEXTROSE: 250 gm LIPIDS: 20 gm SODIUM CHLORIDE: 10 mEq SODIUM ACETATE: mEq SODIUM PHOSPHATE: mmol POTASSIUM CHLORIDE: mEq POTASSIUM ACETATE: 50 mEq POTASSIUM PHOSPHATE: 15 mmol MAGNESIUM: 8 mEq CALCIUM: 10 mEq INSULIN: units MULTIPLE VITAMIN: 10 ml TRACE ELEMENTS: 1 ml(s) TPN PLAN: INCREASE KPHOS TO 15 MM, DECREASE MAGSO4 TO 8 MEQ R: Continue TPN AT 63ML/HR Will monitor electrolytes, glucose, and tolerance to TPN. KOURTNEY GARCIA Mine, 10/21/18 [id number]
--- NOTE | 2018-10-21 17:10 | PDOC ---
Subjective: Subjective: Still with vomiting and lots of air from PEG tube Objective: Vital Signs: Vital Signs Date Time Temp Pulse Resp B/P (MAP) Pulse Ox O2 Delivery O2 Flow Rate FiO2 10/21/18 16:00 77 22 138/79 (98) 100 Ventilator 10/21/18 15:00 97.7 97.7 Labs: Laboratory Tests Test 10/20/18 18:08 10/20/18 21:55 10/21/18 00:56 10/21/18 06:29 Glucose (Fingerstick) 146 mg/dL (70-99) 140 mg/dL (70-99) 176 mg/dL (70-99) 132 mg/dL (70-99) Test 10/21/18 09:47 10/21/18 11:32 10/21/18 16:56 White Blood Count 13.1 x10^3/uL (4.0-11.0) Red Blood Count 3.94 x10^6/uL (4.30-5.70) Hemoglobin 11.5 g/dL (13.0-17.5) Hematocrit 36.4 % (39.0-53.0) Mean Corpuscular Volume 93 fL (79-100) Mean Corpuscular Hemoglobin 29 pg (25-35) Mean Corpuscular Hemoglobin Concent 32 g/dL (31-37) Red Cell Distribution Width 16.6 % (11.5-14.5) Platelet Count 158 x10^3/uL (140-400) Neutrophils (%) (Auto) 83 % (31-73) Lymphocytes (%) (Auto) 10 % (24-48) Monocytes (%) (Auto) 6 % (0-9) Eosinophils (%) (Auto) 1 % (0-3) Basophils (%) (Auto) 0 % (0-3) Neutrophils # (Auto) 10.9 x10^3uL (1.8-7.7) Lymphocytes # (Auto) 1.3 x10^3/uL (1.0-4.8) Monocytes # (Auto) 0.8 x10^3/uL (0.0-1.1) Eosinophils # (Auto) 0.1 x10^3/uL (0.0-0.7) Basophils # (Auto) 0.0 x10^3/uL (0.0-0.2) Sodium Level 146 mmol/L (136-145) Potassium Level 4.4 mmol/L (3.5-5.1) Chloride Level 108 mmol/L (98-107) Carbon Dioxide Level 34 mmol/L (21-32) Anion Gap 4 (6-14) Blood Urea Nitrogen 46 mg/dL (8-26) Creatinine 1.1 mg/dL (0.7-1.3) Estimated GFR (Cockcroft-Gault) 65.1 Glucose Level 212 mg/dL (70-99) Calcium Level 8.7 mg/dL (8.5-10.1) Phosphorus Level 2.4 mg/dL (2.6-4.7) Magnesium Level 2.4 mg/dL (1.8-2.4) Glucose (Fingerstick) 206 mg/dL (70-99) 155 mg/dL (70-99) Physical Exam: Physical Exam: HEENT: trach Abd: Distended. PEG in place- air expels Assessment & Plan: Assessment : A 1) N/V 2) Abd distention 3) Constipation- no BM since 10/16 Plan: P 1) Cont reglan 2) retry tube feeds 3) Will get CT A/P with PO contrast thru PEG JOSSUE VALDEZ MD October 21, 2018 17:10
--- NOTE | 2018-10-21 19:32 | NUR ---
Giving contrast now; will take pt down for CT in one hour with RT and diagnostic radiologist assistance
[2018-10-21] MEDS ORDERED: IOHEXOL 300 MG/ML 100ML VIAL. IV ONE (20:00)
[2018-10-21] MEDS ORDERED: CONTRAST GIVEN. MC PRN (20:00)
[2018-10-21] MEDS ORDERED: IOHEXOL 240 MG/ML 50ML VIAL. PO ONE (20:00)
[2018-10-21] MEDS: FAMOTIDINE 20 MG/2 ML VIAL IVP SCH (21:33)
[2018-10-21] MEDS: ATORVASTATIN CALCIUM 10 MG TABLET. PO SCH (21:34)
[2018-10-21] MEDS: INSULIN GLARGINE 300 UNITS/3 ML INSULN.PEN. SQ SCH (21:54)
[2018-10-21] MEDS ORDERED: AMINO ACID IV SCH ×10 (22:00)
[2018-10-21] MEDS ORDERED: DEXTROSE 70% IV SCH ×10 (22:00)
[2018-10-21] MEDS ORDERED: TOTAL PARENTERAL NUTRITION IV SCH ×10 (22:00)
[2018-10-21] MEDS ORDERED: [UNRECOGNIZED DRUG - OTHER] IV SCH ×10 (22:00)
[2018-10-22] VITALS (23 sets, daily range): BP systolic 93–188; BP diastolic 47–96
[2018-10-22] MEDS: MORPHINE SULFATE 2 MG/ML VIAL. IV PRN ×5 (03:21→20:08)
[2018-10-22] MEDS: fentaNYL PF VIAL 100 MCG/2 ML VIAL IV PRN ×3 (03:46→21:06)
--- NOTE | 2018-10-22 03:57 | NUR ---
At approx. 0300, pt had a sputum clog. Pt bagged and clog was suctioned up. Pt SP02 dropped to 40% during this episode. Pt was suctioned multiple times after and trach care done. Pt had copious amounts of sputum deep suctioned. Pt very anxious and exhausted. Pt given Ativan, Morphine, and then Fentanyl to help pt relax.
[2018-10-22] MEDS: INSULIN LISPRO 300 UNITS/3 ML INSULN.PEN. SQ SCH ×4 (06:00→18:00)
[2018-10-22] MEDS: HEPARIN for SUB-Q USE 5,000 UNIT/ML VIAL. SQ SCH ×3 (06:20→21:11)
[2018-10-22 06:26] LABS: BASO % 0 % (0-3); EOS # 0.3 x10^3/uL (0.0-0.7); EOS % 3 % (0-3); HEMOGLOBIN 11.9 g/dL (13.0-17.5); LYMPH # 1.2 x10^3/uL (1.0-4.8); LYMPH % 10 % (24-48); MEAN CORPUSCULAR HEMOGLOBIN 30 pg (25-35); MEAN CORPUSCULAR HGB CONC 32 g/dL (31-37); MEAN CORPUSCULAR VOLUME 93 fL (79-100); MONO # 0.8 x10^3/uL (0.0-1.1); MONO % 6 % (0-9); NEUT # 9.9 x10^3uL (1.8-7.7); NEUT % 81 % (31-73); PLATELET COUNT 175 x10^3/uL (140-400); RED BLOOD COUNT 3.99 x10^6/uL (4.30-5.70); RED CELL DISTRIBUTION WIDTH 16.4 % (11.5-14.5); WHITE BLOOD COUNT 12.2 x10^3/uL (4.0-11.0)
--- NOTE | 2018-10-22 06:29 | PDOC ---
PULMONARY PROGRESS NOTES Subjective on vent, no weaning yesterday, was very anxious, small ett secretion, ?mucus plugging last night, alert, no pain S/P TRACH 10/16 Vitals Vital Signs Date Time Temp Pulse Resp B/P (MAP) Pulse Ox O2 Delivery O2 Flow Rate FiO2 10/22/18 05:20 100 Ventilator 10/22/18 05:00 87 19 101/63 (76) 10/22/18 02:00 99.6 99.6 Comments ros as mentioned as above other sys otherwise neg General: Alert HEENT: Other (nc at perrl nose throat clear, neck no thyromegaly no lad) Lungs: Wheezing, Crackles Cardiovascular: S1, S2 Abdomen: Soft, Non-tender, Other (no mass) Neuro Exam: Alert Extremities: Other (trace edema) Skin: Warm Labs Laboratory Tests Test 10/20/18 07:30 10/20/18 12:49 10/20/18 18:08 10/20/18 21:55 O2 Saturation 95 % (92-99) Arterial Blood pH 7.40 (7.35-7.45) Arterial Blood pCO2 at Patient Temp 48 mmHg (35-46) Arterial Blood pO2 at Patient Temp 83 mmHg (65-108) Arterial Blood HCO3 29 mmol/L (21-28) Arterial Blood Base Excess 3 mmol/L (-3-3) FiO2 35 Glucose (Fingerstick) 149 mg/dL (70-99) 146 mg/dL (70-99) 140 mg/dL (70-99) Test 10/21/18 00:56 10/21/18 06:29 10/21/18 09:47 10/21/18 11:32 Glucose (Fingerstick) 176 mg/dL (70-99) 132 mg/dL (70-99) 206 mg/dL (70-99) White Blood Count 13.1 x10^3/uL (4.0-11.0) Red Blood Count 3.94 x10^6/uL (4.30-5.70) Hemoglobin 11.5 g/dL (13.0-17.5) Hematocrit 36.4 % (39.0-53.0) Mean Corpuscular Volume 93 fL (79-100) Mean Corpuscular Hemoglobin 29 pg (25-35) Mean Corpuscular Hemoglobin Concent 32 g/dL (31-37) Red Cell Distribution Width 16.6 % (11.5-14.5) Platelet Count 158 x10^3/uL (140-400) Neutrophils (%) (Auto) 83 % (31-73) Lymphocytes (%) (Auto) 10 % (24-48) Monocytes (%) (Auto) 6 % (0-9) Eosinophils (%) (Auto) 1 % (0-3) Basophils (%) (Auto) 0 % (0-3) Neutrophils # (Auto) 10.9 x10^3uL (1.8-7.7) Lymphocytes # (Auto) 1.3 x10^3/uL (1.0-4.8) Monocytes # (Auto) 0.8 x10^3/uL (0.0-1.1) Eosinophils # (Auto) 0.1 x10^3/uL (0.0-0.7) Basophils # (Auto) 0.0 x10^3/uL (0.0-0.2) Sodium Level 146 mmol/L (136-145) Potassium Level 4.4 mmol/L (3.5-5.1) Chloride Level 108 mmol/L (98-107) Carbon Dioxide Level 34 mmol/L (21-32) Anion Gap 4 (6-14) Blood Urea Nitrogen 46 mg/dL (8-26) Creatinine 1.1 mg/dL (0.7-1.3) Estimated GFR (Cockcroft-Gault) 65.1 Glucose Level 212 mg/dL (70-99) Calcium Level 8.7 mg/dL (8.5-10.1) Phosphorus Level 2.4 mg/dL (2.6-4.7) Magnesium Level 2.4 mg/dL (1.8-2.4) Test 10/21/18 16:56 10/21/18 21:52 10/22/18 00:16 10/22/18 06:21 Glucose (Fingerstick) 155 mg/dL (70-99) 106 mg/dL (70-99) 140 mg/dL (70-99) 169 mg/dL (70-99) Laboratory Tests Test 10/21/18 06:29 10/21/18 09:47 10/21/18 11:32 10/21/18 16:56 Glucose (Fingerstick) 132 mg/dL (70-99) 206 mg/dL (70-99) 155 mg/dL (70-99) White Blood Count 13.1 x10^3/uL (4.0-11.0) Red Blood Count 3.94 x10^6/uL (4.30-5.70) Hemoglobin 11.5 g/dL (13.0-17.5) Hematocrit 36.4 % (39.0-53.0) Mean Corpuscular Volume 93 fL (79-100) Mean Corpuscular Hemoglobin 29 pg (25-35) Mean Corpuscular Hemoglobin Concent 32 g/dL (31-37) Red Cell Distribution Width 16.6 % (11.5-14.5) Platelet Count 158 x10^3/uL (140-400) Neutrophils (%) (Auto) 83 % (31-73) Lymphocytes (%) (Auto) 10 % (24-48) Monocytes (%) (Auto) 6 % (0-9) Eosinophils (%) (Auto) 1 % (0-3) Basophils (%) (Auto) 0 % (0-3) Neutrophils # (Auto) 10.9 x10^3uL (1.8-7.7) Lymphocytes # (Auto) 1.3 x10^3/uL (1.0-4.8) Monocytes # (Auto) 0.8 x10^3/uL (0.0-1.1) Eosinophils # (Auto) 0.1 x10^3/uL (0.0-0.7) Basophils # (Auto) 0.0 x10^3/uL (0.0-0.2) Sodium Level 146 mmol/L (136-145) Potassium Level 4.4 mmol/L (3.5-5.1) Chloride Level 108 mmol/L (98-107) Carbon Dioxide Level 34 mmol/L (21-32) Anion Gap 4 (6-14) Blood Urea Nitrogen 46 mg/dL (8-26) Creatinine 1.1 mg/dL (0.7-1.3) Estimated GFR (Cockcroft-Gault) 65.1 Glucose Level 212 mg/dL (70-99) Calcium Level 8.7 mg/dL (8.5-10.1) Phosphorus Level 2.4 mg/dL (2.6-4.7) Magnesium Level 2.4 mg/dL (1.8-2.4) Test 10/21/18 21:52 10/22/18 00:16 10/22/18 06:21 Glucose (Fingerstick) 106 mg/dL (70-99) 140 mg/dL (70-99) 169 mg/dL (70-99) Medications Active Scripts Medications Dose Route/Sig Max Daily Dose Days Date Category Proair Hfa (Albuterol Sulfate) 8.5 Gm Hfa.aer.ad 1 Puff INH PRN Q6HRS PRN 10/07/18 Reported Oxazepam 30 Mg Capsule 30 Mg PO QHS 10/07/18 Reported Comments cxr reviewed, trach, l effusion atelectasis Impression . 1. Acute on chronic hypoxemic/ hypercapnic respiratory failure, multifactorial. 2. Acute exacerbation of chronic obstructive pulmonary disease. suspect severe COPD 3. Abnormal x-ray improved. 4. Gram-negative, possible gram-positive pneumonia. 5. No history given of diabetes, hypertension or renal failure. 6. History of alcohol intake, discontinued approximately 4 years ago. 7. Possible sepsis POA, improved 8. Positive mycoplasma serology 9. EF 40%, acute sys chf 10. S/P TRACH 10/16 Plan . off STEROIDS ?mucus plugging last night, has wheezing increase BD to q4hrs, add ics cont vent support, setting reviewed, weaning as tolerated, monitor resp status closely PT OT CXR in am WILL CONTINUE SUPPORT FOLLOW CARD recommendations CONTINUE ANTIBX PER ID DIURESE, monitor k, cr DVT GI PROPH, pepcid, heparin sq ENTERAL FEEDING discussed w rn, pt ERIN SEARS MD October 22, 2018 06:28
[2018-10-22 06:39] LABS: CALCIUM 8.6 mg/dL (8.5-10.1); CREATININE 1.1 mg/dL (0.7-1.3); GFR 65.1; MAGNESIUM 2.1 mg/dL (1.8-2.4); PHOSPHORUS 2.7 mg/dL (2.6-4.7); POTASSIUM 4.6 mmol/L (3.5-5.1)
[2018-10-22] MEDS: IPRATRPIUM/ALBUTEROL 0.5/2.5MG 3 ML NEBU. NEB SCH ×4 (07:35→19:53)
[2018-10-22] MEDS: BUDESONIDE 0.5 MG/2 ML NEBU. NEB SCH ×2 (07:35→19:53)
[2018-10-22] MEDS: FLUCONAZOLE 100 MG TABLET. PO SCH (09:00)
--- NOTE | 2018-10-22 09:15 | RAD ---
CT study of abdomen and pelvis with contrast Clinical indications: Abdominal distention. TECHNIQUE: After IV infusion of 75 cc of Omnipaque 300, helical CT scanning of the abdomen and pelvis was performed. Water soluble GI contrast was administered through the PEG tube. PQRS compliance Statement One or more of the following individualized dose reduction techniques were utilized for this study: 1. Automated exposure control 2. Adjustment of the mA and/or kV according to patient size 3. Use of iterative reconstruction technique COMPARISON: None available. FINDINGS: The liver is normal. Spleen is small in size. Diffuse fatty atrophy of the pancreas is seen. The gallbladder is surgically absent. No extrahepatic biliary ductal dilatation is seen. No adrenal mass is evident. Right renal atrophy is seen. Mild right-sided hydronephrosis and hydroureter is seen. This is due to a 15 mm in length stone of the proximal right ureter located 5 cm distal to the UPJ. Diffuse radiodensity of the left renal collecting system is seen. However, no contrast is seen within the upper pole left renal collecting system. Therefore, this represents a staghorn calculus occupying almost the entire left renal collecting system and measures 4.5 cm in greatest dimension. No stone is evident within the left ureter. Urinary bladder is decompressed by an indwelling Jeffers catheter. The Jeffers catheter balloon is not distended. Catheter tip is seen within the lumen of the urinary bladder however. No focal aneurysmal dilatation of the abdominal aorta is seen. No enlarged abdominal or pelvic lymphadenopathy is evident. PEG tube is present and the balloon is seen within the thickened wall of the anterior body of the stomach. Therefore, the PEG tube is not completely within the lumen of the PEG tube. No extravasation of contrast material into the peritoneal cavity or anterior abdominal wall is seen however. All contrast is intraluminal. No obstructive bowel pattern is evident. The terminal ileum is unremarkable. The appendix is normal. There is mild fecal retention within the right side of the colon. No free intraperitoneal air or free fluid or mesenteric edema is seen. Small bilateral pleural effusions are seen. Associated bibasilar atelectasis is seen. No lytic process is seen. There is a moderate compression fracture of T11. This is of indeterminate age. IMPRESSION: PEG tube balloon appears to be located within the thickened anterior wall of the stomach and not truly within the lumen of the stomach. Therefore, recommend advancing the PEG tube further into the lumen of the stomach. There is no extravasation of contrast material into the intraperitoneal cavity or anterior abdominal wall however. No free air is seen. Jeffers catheter tip is seen within the urinary bladder which is nondistended. However the catheter balloon does not appear to be inflated. There is mild fecal retention within the right side of the colon. No obstructive bowel pattern is seen. Proximal right ureteral stone measuring 15 mm in length. Mild proximal right-sided hydronephrosis and hydroureter. Right renal atrophy is seen. Large staghorn calculus of the left kidney. Small bilateral pleural effusions and associated bibasilar atelectasis. Note-the above findings were discussed with Abbi, the ICU nurse at 9:07 AM on October 22, 2018 after my initial interpretation and dictation. Moderate compression fracture of T11 of indeterminate age. Electronically signed by: Amaury Brown MD (10/22/2018 9:12 AM) [facility]
--- NOTE | 2018-10-22 10:36 | PDOC ---
Subjective: Subjective: Still with belching. No further emesis. !50 cc residuals overnight per RN CY results: PEG tube balloon appears to be located within the thickened anterior wall of the stomach and not truly within the lumen of the stomach. Therefore, recommend advancing the PEG tube further into the lumen of the stomach. There is no extravasation of contrast material into the intraperitoneal cavity or anterior abdominal wall however. No free air is seen. Objective: Vital Signs: Vital Signs Date Time Temp Pulse Resp B/P (MAP) Pulse Ox O2 Delivery O2 Flow Rate FiO2 10/22/18 07:30 98 Ventilator 10/22/18 06:00 88 22 126/96 (106) 10/22/18 02:00 99.6 99.6 Labs: Laboratory Tests Test 10/21/18 11:32 10/21/18 16:56 10/21/18 21:52 10/22/18 00:16 Glucose (Fingerstick) 206 mg/dL (70-99) 155 mg/dL (70-99) 106 mg/dL (70-99) 140 mg/dL (70-99) Test 10/22/18 06:10 10/22/18 06:21 White Blood Count 12.2 x10^3/uL (4.0-11.0) Red Blood Count 3.99 x10^6/uL (4.30-5.70) Hemoglobin 11.9 g/dL (13.0-17.5) Hematocrit 37.0 % (39.0-53.0) Mean Corpuscular Volume 93 fL (79-100) Mean Corpuscular Hemoglobin 30 pg (25-35) Mean Corpuscular Hemoglobin Concent 32 g/dL (31-37) Red Cell Distribution Width 16.4 % (11.5-14.5) Platelet Count 175 x10^3/uL (140-400) Neutrophils (%) (Auto) 81 % (31-73) Lymphocytes (%) (Auto) 10 % (24-48) Monocytes (%) (Auto) 6 % (0-9) Eosinophils (%) (Auto) 3 % (0-3) Basophils (%) (Auto) 0 % (0-3) Neutrophils # (Auto) 9.9 x10^3uL (1.8-7.7) Lymphocytes # (Auto) 1.2 x10^3/uL (1.0-4.8) Monocytes # (Auto) 0.8 x10^3/uL (0.0-1.1) Eosinophils # (Auto) 0.3 x10^3/uL (0.0-0.7) Basophils # (Auto) 0.0 x10^3/uL (0.0-0.2) Sodium Level 142 mmol/L (136-145) Potassium Level 4.6 mmol/L (3.5-5.1) Chloride Level 105 mmol/L (98-107) Carbon Dioxide Level 33 mmol/L (21-32) Anion Gap 4 (6-14) Blood Urea Nitrogen 47 mg/dL (8-26) Creatinine 1.1 mg/dL (0.7-1.3) Estimated GFR (Cockcroft-Gault) 65.1 Glucose Level 196 mg/dL (70-99) Calcium Level 8.6 mg/dL (8.5-10.1) Phosphorus Level 2.7 mg/dL (2.6-4.7) Magnesium Level 2.1 mg/dL (1.8-2.4) Glucose (Fingerstick) 169 mg/dL (70-99) Physical Exam: Physical Exam: Abd: distended. Outer placer pulled back to 5 on PEG Assessment & Plan: Assessment : A 1) N/V 2) Abd distention 3) Constipation- no BM since 10/16 4)? Buried bumper Plan: P 1) Cont reglan 2) retry tube feeds 3) CT with ? buried bumper. I pulled back the placeholder for the peg and advanced it. We will monitor if he has any improvement. Consider repeat EGD to see if luminal adjustment need to be made. Will d/w JOSSUE Lay MD October 22, 2018 10:36
[2018-10-22] MEDS: ASPIRIN CHEWABLE 81 MG TABLET. PO SCH (10:37)
[2018-10-22] MEDS: FUROSEMIDE 40 MG TABLET. PO SCH (10:37)
[2018-10-22] MEDS: METOCLOPRAMIDE HCL 10 MG/2 ML VIAL. IV SCH ×4 (10:37→20:07)
[2018-10-22] MEDS: amLODIPine BESYLATE 5 MG TABLET PO SCH (10:37)
[2018-10-22] MEDS: DOXYCYCLINE HYCLATE 100 MG in IV DEXTROSE 5% 100ML 100 ML IV SCH ×2 (10:38→20:06)
--- NOTE | 2018-10-22 11:49 | PDOC ---
Infectious Disease Note Subjective Subjective pt is awake, feeling good ROS ROS no n/v/d/ Vital Sign Vital Signs Vital Signs Date Time Temp Pulse Resp B/P (MAP) Pulse Ox O2 Delivery O2 Flow Rate FiO2 10/22/18 11:19 99 Ventilator 10/22/18 10:38 28 10/22/18 10:37 83 117/55 10/22/18 07:00 98.7 98.7 Physical Exam PHYSICAL EXAM GENERAL: intubated, trach, sedated, mitts HENT: normal conj. PERRL. LUNGS: Clear CV: S1 S2 irregular ABD: Obese, soft, NT, BS present has a PEG feeding running, PEG in place : Jeffers in place EXT: 1 + edema lower extremities, bilaterally. No cyanosis. SKIN: warm without rash DIETARY MANAGER: awake, no focal deficit Labs Lab Laboratory Tests Test 10/21/18 16:56 10/21/18 21:52 10/22/18 00:16 10/22/18 06:10 Glucose (Fingerstick) 155 mg/dL (70-99) 106 mg/dL (70-99) 140 mg/dL (70-99) White Blood Count 12.2 x10^3/uL (4.0-11.0) Red Blood Count 3.99 x10^6/uL (4.30-5.70) Hemoglobin 11.9 g/dL (13.0-17.5) Hematocrit 37.0 % (39.0-53.0) Mean Corpuscular Volume 93 fL (79-100) Mean Corpuscular Hemoglobin 30 pg (25-35) Mean Corpuscular Hemoglobin Concent 32 g/dL (31-37) Red Cell Distribution Width 16.4 % (11.5-14.5) Platelet Count 175 x10^3/uL (140-400) Neutrophils (%) (Auto) 81 % (31-73) Lymphocytes (%) (Auto) 10 % (24-48) Monocytes (%) (Auto) 6 % (0-9) Eosinophils (%) (Auto) 3 % (0-3) Basophils (%) (Auto) 0 % (0-3) Neutrophils # (Auto) 9.9 x10^3uL (1.8-7.7) Lymphocytes # (Auto) 1.2 x10^3/uL (1.0-4.8) Monocytes # (Auto) 0.8 x10^3/uL (0.0-1.1) Eosinophils # (Auto) 0.3 x10^3/uL (0.0-0.7) Basophils # (Auto) 0.0 x10^3/uL (0.0-0.2) Sodium Level 142 mmol/L (136-145) Potassium Level 4.6 mmol/L (3.5-5.1) Chloride Level 105 mmol/L (98-107) Carbon Dioxide Level 33 mmol/L (21-32) Anion Gap 4 (6-14) Blood Urea Nitrogen 47 mg/dL (8-26) Creatinine 1.1 mg/dL (0.7-1.3) Estimated GFR (Cockcroft-Gault) 65.1 Glucose Level 196 mg/dL (70-99) Calcium Level 8.6 mg/dL (8.5-10.1) Phosphorus Level 2.7 mg/dL (2.6-4.7) Magnesium Level 2.1 mg/dL (1.8-2.4) Test 10/22/18 06:21 Glucose (Fingerstick) 169 mg/dL (70-99) Micro Microbiology 10/07/18 Blood Culture - Final, Complete NO GROWTH AFTER 5 DAYS 10/08/18 - Final, Complete 10/08/18 - Final, Complete 10/08/18 - Final, Complete 10/08/18 - Final, Complete 10/08/18 - Final, Complete 10/08/18 Gram Stain Evaluation - Final, Complete 10/08/18 Sputum Culture - Final, Complete 10/08/18 Sputum Result 1 - Final, Complete 10/07/18 Urine Culture - Final, Complete 10/07/18 Urine Culture Result 1 (ELEN) - Final, Complete 10/07/18 Antimicrobic Susceptibility - Final, Complete Objective Assessment Fever - resolved Pneumonia + mycoplasma 10/08 - on Doxy 10/09. Sputum cult - routine raheel/ Strep and Legionella - neg UTI, POA staph sap NSTEMI Lactic acidosis - improved Allergy PCN w/ hives and throat swelling; erythromycin w/ hives. Leukocytosis - on steroids - better Hypotension, now off Levophed gtt Acute encephalopathy - improving Acute respiratory failure s/p intubation ALEX - better COPD, O2 dependent Plan Plan of Care ok to d/c to [facility] cont antibiotics JEANNE WRAY MD October 22, 2018 11:49
[2018-10-22] MEDS: TPN PER PHARMACY MC PRN (12:16)
--- NOTE | 2018-10-22 12:18 | NUR ---
Pharmacy TPN Dosing Note S: JOSLYN SOTELO is a 78 year old M Currently receiving Central Continuous TPN started 10/20/18 B:Pertinent PMH: Unable to tolerate tube feeding Height: 5 feet, 10 inches Weight: 99.543864 kg Current diet: NPO LABS: Sodium: 142 Potassium: 4.6 Chloride: 105 Calcium: 8.8 Corrected Calcium: 9.84 Magnesium: 2.1 CO2: 33 SCr: 1.1 Glucose: 196 Albumin: 2.7 AST: 17 ALT: 31 TPN FORMULA: TPN TYPE: Central Continuous AMINO ACIDS: 120 gm DEXTROSE: 250 gm LIPIDS: 20 gm SODIUM CHLORIDE: 10 mEq SODIUM ACETATE: mEq SODIUM PHOSPHATE: mmol POTASSIUM CHLORIDE: mEq POTASSIUM ACETATE: 50 mEq POTASSIUM PHOSPHATE: 15 mmol MAGNESIUM: 8 mEq CALCIUM: 10 mEq INSULIN: units MULTIPLE VITAMIN: 10 ml TRACE ELEMENTS: 1 ml(s) TPN PLAN: 10/22 TOLERATED TF, DC TPN. R: DC TPN AFTER TONIGHT BAG. KOURTNEY GARCIA [facility], 10/22/18 [id number]
--- NOTE | 2018-10-22 13:27 | PDOC ---
[facility] [facility] PROGRESS NOTE Chief Complaint Chief Complaint New Trach and PEG Fulminant respiratory failure End-stage COPD Clinical pneumonia MORBID OBESITY Possible sepsis UTI- Staphylococcus saprophyticus. Greater than 100,000 colony forming units per mL Noncompliance Pneumonia + mycoplasma 10/08 - on Doxy 10/09 hypercapnic resp failure poor prognosis azotemia History of Present Illness History of Present Illness Patient was seen and examined in the ICU He has a trach (day 5) remains unable to speak, still is alert and able to communicate PEG feeds had high residuals so maintaining TPN, PEG (day 4) Vent set to spontaneous respirations 14 of pressure support 35% FiO2 Discussed with RN Vitals Vitals Vital Signs Date Time Temp Pulse Resp B/P (MAP) Pulse Ox O2 Delivery O2 Flow Rate FiO2 10/22/18 13:00 74 9 135/53 (80) 99 Ventilator 10/22/18 07:00 98.7 98.7 Physical Exam Physical Exam GENERAL: intubated, trach, sedated, mitts on spontaneous respirations with pressure support 14 and 35% FiO2 HENT: normal conj. PERRL. LUNGS: Clear CV: S1 S2 irregular ABD: Obese, soft, NT, BS present has a PEG feeding running, PEG in place : Jeffers in place EXT: 1 + edema lower extremities, bilaterally. No cyanosis. SKIN: warm without rash [employer]: awake, no focal deficit General: Alert, No acute distress, Other (Tracheostomy/Vent unable to speak) Heart: Regular rate, Normal S1, Normal S2 Lungs: Wheezing, Crackles Abdomen: Soft, No tenderness Extremities: No cyanosis, Other (trace edema) Skin: No significant lesion Labs Labs: Laboratory Tests Test 10/21/18 16:56 10/21/18 21:52 10/22/18 00:16 10/22/18 06:10 Glucose (Fingerstick) 155 mg/dL (70-99) 106 mg/dL (70-99) 140 mg/dL (70-99) White Blood Count 12.2 x10^3/uL (4.0-11.0) Red Blood Count 3.99 x10^6/uL (4.30-5.70) Hemoglobin 11.9 g/dL (13.0-17.5) Hematocrit 37.0 % (39.0-53.0) Mean Corpuscular Volume 93 fL (79-100) Mean Corpuscular Hemoglobin 30 pg (25-35) Mean Corpuscular Hemoglobin Concent 32 g/dL (31-37) Red Cell Distribution Width 16.4 % (11.5-14.5) Platelet Count 175 x10^3/uL (140-400) Neutrophils (%) (Auto) 81 % (31-73) Lymphocytes (%) (Auto) 10 % (24-48) Monocytes (%) (Auto) 6 % (0-9) Eosinophils (%) (Auto) 3 % (0-3) Basophils (%) (Auto) 0 % (0-3) Neutrophils # (Auto) 9.9 x10^3uL (1.8-7.7) Lymphocytes # (Auto) 1.2 x10^3/uL (1.0-4.8) Monocytes # (Auto) 0.8 x10^3/uL (0.0-1.1) Eosinophils # (Auto) 0.3 x10^3/uL (0.0-0.7) Basophils # (Auto) 0.0 x10^3/uL (0.0-0.2) Sodium Level 142 mmol/L (136-145) Potassium Level 4.6 mmol/L (3.5-5.1) Chloride Level 105 mmol/L (98-107) Carbon Dioxide Level 33 mmol/L (21-32) Anion Gap 4 (6-14) Blood Urea Nitrogen 47 mg/dL (8-26) Creatinine 1.1 mg/dL (0.7-1.3) Estimated GFR (Cockcroft-Gault) 65.1 Glucose Level 196 mg/dL (70-99) Calcium Level 8.6 mg/dL (8.5-10.1) Phosphorus Level 2.7 mg/dL (2.6-4.7) Magnesium Level 2.1 mg/dL (1.8-2.4) Test 10/22/18 06:21 Glucose (Fingerstick) 169 mg/dL (70-99) Review of Systems Review of Systems Unable to obtain patient really can't speak Assessment and Plan Assessmemt and Plan Problems Medical Problems: (1) Acute respiratory distress Status: Acute (2) CAP (community acquired pneumonia) Status: Acute (3) CHF (congestive heart failure) Status: Acute (4) Elevated liver function tests Status: Acute (5) Elevated troponin I level Status: Acute (6) Hyperkalemia Status: Acute (7) Renal insufficiency Status: Acute New Trach and PEG Fulminant respiratory failure End-stage COPD Clinical pneumonia MORBID OBESITY Possible sepsis UTI- Staphylococcus saprophyticus. Greater than 100,000 colony forming units per mL Noncompliance Pneumonia + mycoplasma 10/08 - on Doxy 10/09 hypercapnic resp failure poor prognosis azotemia Pneumonia + mycoplasma 10/08 - on Doxy 10/09. Sputum cult - routine raheel/ Strep and Legionella - neg UTI, POA staph sap NSTEMI Lactic acidosis - improved Allergy PCN w/ hives and throat swelling; erythromycin w/ hives. Leukocytosis - on steroids - better Hypotension, now off Levophed gtt Acute encephalopathy - improving Acute respiratory failure s/p intubation ALEX - better COPD, O2 dependent Plan ICU monitoring PEG feeds will wean off TPN later today Trach care Vent weaning he is currently on pressure support with spontaneous respirations Duo nebs And about per ID DVT prophylaxis Family wants full code We'll try to resume home meds with his PEG feeds Plan is to transfer to LTAC once accepted He is still critically ill Total time 33 minutes Comment Review of Relevant I have reviewed the following items akbar (where applicable) has been applied. Labs Laboratory Tests Test 10/20/18 18:08 10/20/18 21:55 10/21/18 00:56 10/21/18 06:29 Glucose (Fingerstick) 146 mg/dL (70-99) 140 mg/dL (70-99) 176 mg/dL (70-99) 132 mg/dL (70-99) Test 10/21/18 09:47 10/21/18 11:32 10/21/18 16:56 10/21/18 21:52 White Blood Count 13.1 x10^3/uL (4.0-11.0) Red Blood Count 3.94 x10^6/uL (4.30-5.70) Hemoglobin 11.5 g/dL (13.0-17.5) Hematocrit 36.4 % (39.0-53.0) Mean Corpuscular Volume 93 fL (79-100) Mean Corpuscular Hemoglobin 29 pg (25-35) Mean Corpuscular Hemoglobin Concent 32 g/dL (31-37) Red Cell Distribution Width 16.6 % (11.5-14.5) Platelet Count 158 x10^3/uL (140-400) Neutrophils (%) (Auto) 83 % (31-73) Lymphocytes (%) (Auto) 10 % (24-48) Monocytes (%) (Auto) 6 % (0-9) Eosinophils (%) (Auto) 1 % (0-3) Basophils (%) (Auto) 0 % (0-3) Neutrophils # (Auto) 10.9 x10^3uL (1.8-7.7) Lymphocytes # (Auto) 1.3 x10^3/uL (1.0-4.8) Monocytes # (Auto) 0.8 x10^3/uL (0.0-1.1) Eosinophils # (Auto) 0.1 x10^3/uL (0.0-0.7) Basophils # (Auto) 0.0 x10^3/uL (0.0-0.2) Sodium Level 146 mmol/L (136-145) Potassium Level 4.4 mmol/L (3.5-5.1) Chloride Level 108 mmol/L (98-107) Carbon Dioxide Level 34 mmol/L (21-32) Anion Gap 4 (6-14) Blood Urea Nitrogen 46 mg/dL (8-26) Creatinine 1.1 mg/dL (0.7-1.3) Estimated GFR (Cockcroft-Gault) 65.1 Glucose Level 212 mg/dL (70-99) Calcium Level 8.7 mg/dL (8.5-10.1) Phosphorus Level 2.4 mg/dL (2.6-4.7) Magnesium Level 2.4 mg/dL (1.8-2.4) Glucose (Fingerstick) 206 mg/dL (70-99) 155 mg/dL (70-99) 106 mg/dL (70-99) Test 10/22/18 00:16 10/22/18 06:10 10/22/18 06:21 Glucose (Fingerstick) 140 mg/dL (70-99) 169 mg/dL (70-99) White Blood Count 12.2 x10^3/uL (4.0-11.0) Red Blood Count 3.99 x10^6/uL (4.30-5.70) Hemoglobin 11.9 g/dL (13.0-17.5) Hematocrit 37.0 % (39.0-53.0) Mean Corpuscular Volume 93 fL (79-100) Mean Corpuscular Hemoglobin 30 pg (25-35) Mean Corpuscular Hemoglobin Concent 32 g/dL (31-37) Red Cell Distribution Width 16.4 % (11.5-14.5) Platelet Count 175 x10^3/uL (140-400) Neutrophils (%) (Auto) 81 % (31-73) Lymphocytes (%) (Auto) 10 % (24-48) Monocytes (%) (Auto) 6 % (0-9) Eosinophils (%) (Auto) 3 % (0-3) Basophils (%) (Auto) 0 % (0-3) Neutrophils # (Auto) 9.9 x10^3uL (1.8-7.7) Lymphocytes # (Auto) 1.2 x10^3/uL (1.0-4.8) Monocytes # (Auto) 0.8 x10^3/uL (0.0-1.1) Eosinophils # (Auto) 0.3 x10^3/uL (0.0-0.7) Basophils # (Auto) 0.0 x10^3/uL (0.0-0.2) Sodium Level 142 mmol/L (136-145) Potassium Level 4.6 mmol/L (3.5-5.1) Chloride Level 105 mmol/L (98-107) Carbon Dioxide Level 33 mmol/L (21-32) Anion Gap 4 (6-14) Blood Urea Nitrogen 47 mg/dL (8-26) Creatinine 1.1 mg/dL (0.7-1.3) Estimated GFR (Cockcroft-Gault) 65.1 Glucose Level 196 mg/dL (70-99) Calcium Level 8.6 mg/dL (8.5-10.1) Phosphorus Level 2.7 mg/dL (2.6-4.7) Magnesium Level 2.1 mg/dL (1.8-2.4) Laboratory Tests Test 10/21/18 16:56 10/21/18 21:52 10/22/18 00:16 10/22/18 06:10 Glucose (Fingerstick) 155 mg/dL (70-99) 106 mg/dL (70-99) 140 mg/dL (70-99) White Blood Count 12.2 x10^3/uL (4.0-11.0) Red Blood Count 3.99 x10^6/uL (4.30-5.70) Hemoglobin 11.9 g/dL (13.0-17.5) Hematocrit 37.0 % (39.0-53.0) Mean Corpuscular Volume 93 fL (79-100) Mean Corpuscular Hemoglobin 30 pg (25-35) Mean Corpuscular Hemoglobin Concent 32 g/dL (31-37) Red Cell Distribution Width 16.4 % (11.5-14.5) Platelet Count 175 x10^3/uL (140-400) Neutrophils (%) (Auto) 81 % (31-73) Lymphocytes (%) (Auto) 10 % (24-48) Monocytes (%) (Auto) 6 % (0-9) Eosinophils (%) (Auto) 3 % (0-3) Basophils (%) (Auto) 0 % (0-3) Neutrophils # (Auto) 9.9 x10^3uL (1.8-7.7) Lymphocytes # (Auto) 1.2 x10^3/uL (1.0-4.8) Monocytes # (Auto) 0.8 x10^3/uL (0.0-1.1) Eosinophils # (Auto) 0.3 x10^3/uL (0.0-0.7) Basophils # (Auto) 0.0 x10^3/uL (0.0-0.2) Sodium Level 142 mmol/L (136-145) Potassium Level 4.6 mmol/L (3.5-5.1) Chloride Level 105 mmol/L (98-107) Carbon Dioxide Level 33 mmol/L (21-32) Anion Gap 4 (6-14) Blood Urea Nitrogen 47 mg/dL (8-26) Creatinine 1.1 mg/dL (0.7-1.3) Estimated GFR (Cockcroft-Gault) 65.1 Glucose Level 196 mg/dL (70-99) Calcium Level 8.6 mg/dL (8.5-10.1) Phosphorus Level 2.7 mg/dL (2.6-4.7) Magnesium Level 2.1 mg/dL (1.8-2.4) Test 10/22/18 06:21 Glucose (Fingerstick) 169 mg/dL (70-99) Microbiology 10/07/18 Blood Culture - Final, Complete NO GROWTH AFTER 5 DAYS 10/08/18 - Final, Complete 10/08/18 - Final, Complete 10/08/18 - Final, Complete 10/08/18 - Final, Complete 10/08/18 - Final, Complete 10/08/18 Gram Stain Evaluation - Final, Complete 10/08/18 Sputum Culture - Final, Complete 10/08/18 Sputum Result 1 - Final, Complete 10/07/18 Urine Culture - Final, Complete 10/07/18 Urine Culture Result 1 (ELEN) - Final, Complete 10/07/18 Antimicrobic Susceptibility - Final, Complete Medications Current Medications Sodium Chloride 1,000 ml @ 1,000 mls/hr Q1H IV Last administered on 10/07/18at 11:27; Start 10/07/18 at 10:52; Stop 10/07/18 at 11:51; Status DC Midazolam HCl 100 ml @ 1 mls/hr 1X ONCE IV Last administered on 10/07/18at 11:20; Start 10/07/18 at 11:15; Stop 10/09/18 at 15:55; Status DC Etomidate (Amidate) 20 mg STK-MED ONCE IV ; Start 10/07/18 at 11:13; Stop 10/07/18 at 11:14; Status DC Succinylcholine Chloride (Anectine) 200 mg STK-MED ONCE .ROUTE ; Start 10/07/18 at 11:13; Stop 10/07/18 at 11:14; Status DC Etomidate (Amidate) 20 mg 1X ONCE IV Last administered on 10/07/18at 11:01; Start 10/07/18 at 11:30; Stop 10/07/18 at 11:33; Status DC Succinylcholine Chloride (Anectine) 100 mg 1X ONCE IV Last administered on 10/07/18at 11:01; Start 10/07/18 at 11:30; Stop 10/07/18 at 11:33; Status DC Albuterol Sulfate (Ventolin Neb Soln) 10 mg 1X ONCE CONT NEB ; Start 10/07/18 at 12:00; Stop 10/07/18 at 12:01; Status DC Methylprednisolone Sodium Succinate (SOLU-Medrol 125MG VIAL) 125 mg 1X ONCE IV Last administered on 10/07/18at 11:52; Start 10/07/18 at 12:00; Stop 10/07/18 at 12:01; Status DC Vancomycin HCl 250 ml @ 250 mls/hr 1X ONCE IV Last administered on 10/07/18at 12:27; Start 10/07/18 at 12:00; Stop 10/07/18 at 12:59; Status DC Levofloxacin/ Dextrose 150 ml @ 100 mls/hr 1X ONCE IV Last administered on 10/07/18at 12:28; Start 10/07/18 at 12:00; Stop 10/07/18 at 13:29; Status DC Sodium Chloride 1,000 ml @ 1,000 mls/hr 1X ONCE IV Last administered on 10/07/18at 12:57; Start 10/07/18 at 12:45; Stop 10/07/18 at 13:44; Status DC Sodium Chloride 1,000 ml @ 1,000 mls/hr 1X ONCE IV Last administered on 10/07/18at 12:58; Start 10/07/18 at 12:45; Stop 10/07/18 at 13:44; Status DC Dextrose (Dextrose 50%-Water Syringe) 25 gm 1X ONCE IV Last administered on 10/07/18at 12:59; Start 10/07/18 at 12:45; Stop 10/07/18 at 12:46; Status DC Insulin Human Regular (HumuLIN R VIAL) 10 unit 1X ONCE IV Last administered on 10/07/18at 13:00; Start 10/07/18 at 12:45; Stop 10/07/18 at 12:46; Status DC Sodium Bicarbonate (Sodium Bicarb Adult 8.4% Syr) 50 meq 1X ONCE IV Last administered on 10/07/18at 13:07; Start 10/07/18 at 12:45; Stop 10/07/18 at 12:46; Status DC Sodium Chloride 1,000 ml @ 100 mls/hr Q10H IV ; Start 10/07/18 at 16:00; Stop 10/07/18 at 16:00; Status DC Pantoprazole Sodium (PROTONIX VIAL for IV PUSH) 40 mg DAILYAC IVP Last administered on 10/08/18at 08:25; Start 10/07/18 at 13:30; Stop 10/08/18 at 09:54; Status DC Pantoprazole Sodium (PROTONIX VIAL for IV PUSH) 40 mg 1X ONCE IVP ; Start 10/07/18 at 12:45; Stop 10/07/18 at 12:46; Status UNV Heparin Sodium (Porcine) (Heparin Sodium) 5,000 unit Q8HRS SQ Last administered on 10/22/18at 06:20; Start 10/07/18 at 14:00 Levofloxacin/ Dextrose (Levaquin Per Pharmacy) 1 each PRN DAILY PRN MC SEE COMMENTS; Start 10/07/18 at 12:45; Stop 10/08/18 at 07:33; Status DC Insulin Human Lispro (HumaLOG) 0-9 UNITS TIDWMEALS SQ ; Start 10/07/18 at 17:00; Stop 10/07/18 at 17:00; Status DC Dextrose (Dextrose 50%-Water Syringe) 12.5 gm PRN Q15MIN PRN IV SEE COMMENTS; Start 10/07/18 at 12:45 Albuterol/ Ipratropium (Duoneb) 3 ml RTQID NEB ; Start 10/07/18 at 16:00; Status Cancel Methylprednisolone Sodium Succinate (SOLU-Medrol 40MG VIAL) 40 mg Q8HRS IV Last administered on 10/14/18at 05:48; Start 10/07/18 at 22:00; Stop 10/14/18 at 09:29; Status DC Acetaminophen (Tylenol) 650 mg PRN Q6HRS PRN PEG MILD PAIN / TEMP Last administered on 10/08/18at 08:25; Start 10/07/18 at 12:45 Morphine Sulfate (Morphine Sulfate) 2 mg PRN Q2HR PRN IV PAIN, 1ST CHOICE Last administered on 10/22/18at 10:38; Start 10/07/18 at 12:45 Ondansetron HCl (Zofran) 4 mg PRN Q6HRS PRN IV NAUSEA/VOMITING Last administered on 10/20/18at 00:05; Start 10/07/18 at 12:45 Norepinephrine Bitartrate 250 ml @ 1.875 mls/ hr CONT PRN IV SEE I/O RECORD Last administered on 10/07/18at 14:01; Start 10/07/18 at 14:00 Sodium Chloride 1,000 ml @ 150 mls/hr Q6H40M IV Last administered on 10/08/18at 15:09; Start 10/07/18 at 14:00; Stop 10/08/18 at 13:59; Status DC Calcium Gluconate (Calcium Gluconate) 1,000 mg 1X ONCE IVP ; Start 10/07/18 at 13:30; Stop 10/07/18 at 13:31; Status Cancel Sodium Polystyrene Sulfonate (Kayexalate) 15 gm 1X ONCE PO Last administered on 10/07/18at 14:10; Start 10/07/18 at 13:30; Stop 10/07/18 at 13:31; Status DC Pantoprazole Sodium (PROTONIX VIAL for IV PUSH) 40 mg STK-MED ONCE IVP ; Start 10/07/18 at 12:52; Stop 10/07/18 at 12:55; Status DC Levofloxacin/ Dextrose 150 ml @ 100 mls/hr Q48H IV ; Start 10/09/18 at 12:00; Stop 10/09/18 at 12:00; Status DC Calcium Gluconate 1000 mg/Sodium Chloride 110 ml @ 220 mls/hr 1X ONCE IV Last administered on 10/07/18at 14:23; Start 10/07/18 at 15:00; Stop 10/07/18 at 15:29; Status DC Sodium Chloride 1,000 ml @ 1,000 mls/hr 1X ONCE IV Last administered on 10/07/18at 14:50; Start 10/07/18 at 15:00; Stop 10/07/18 at 15:59; Status DC Sodium Chloride 1,000 ml @ 999 mls/hr 1X ONCE IV ; Start 10/07/18 at 15:00; Stop 10/07/18 at 16:00; Status DC Albuterol Sulfate (Ventolin Neb Soln) 2.5 mg PRN Q2HR PRN NEB [id number]; Start 10/07/18 at 15:00 Albuterol/ Ipratropium (Duoneb) 3 ml RTQID NEB Last administered on 10/21/18at 19:45; Start 10/07/18 at 16:00; Stop 10/22/18 at 06:29; Status DC Insulin Human Lispro (HumaLOG) 0-9 UNITS Q6HRS SQ Last administered on 10/21/18 17:02; Start 10/07/18 at 18:00 Meropenem 500 mg/ Sodium Chloride 50 ml @ 100 mls/hr Q8HRS IV Last administered on 10/20/18 05:36; Start 10/07/18 at 17:00; Stop 10/20/18 at 09:03; Status DC Midazolam HCl 100 ml @ 5 mls/hr CONT PRN IV SEE I/O RECORD Last administered on 10/18/18at 18:44; Start 10/08/18 at 04:15 Lactobacillus Rhamnosus (Culturelle) 1 cap BID PO ; Start 10/08/18 at 09:00; Stop 10/09/18 at 15:58; Status DC Famotidine (Pepcid Vial) 20 mg QHS IVP Last administered on 10/21/18at 21:33; Start 10/08/18 at 21:00 Linezolid/Dextrose 300 ml @ 300 mls/hr Q12HR IV Last administered on 10/09/18at 20:58; Start 10/08/18 at 11:30; Stop 10/10/18 at 07:24; Status DC Doxycycline Hyclate 100 mg/ Dextrose 100 ml @ 50 mls/hr Q12HR IV Last administered on 10/22/18at 10:38; Start 10/09/18 at 13:00 Aspirin (Ecotrin) 81 mg DAILYWBKFT PO Last administered on 10/18/18at 08:39; Start 10/10/18 at 08:00; Stop 10/18/18 at 09:01; Status DC Furosemide (Lasix) 40 mg 1X ONCE IVP Last administered on 10/11/18 08:36; Start 10/11/18 at 09:00; Stop 10/11/18 at 09:01; Status DC Lisinopril (Prinivil) 10 mg DAILY PO Last administered on 10/14/18 08:03; Start 10/11/18 at 14:00; Stop 10/15/18 at 09:46; Status DC Furosemide (Lasix) 40 mg DAILY IVP Last administered on 10/18/18at 08:40; Start 10/12/18 at 12:30; Stop 10/18/18 at 14:22; Status DC Amlodipine Besylate (Norvasc) 5 mg DAILY PO Last administered on 10/22/18at 10:37; Start 10/12/18 at 12:30 Hydralazine HCl (Apresoline Inj) 10 mg PRN Q4HRS PRN IVP ELEVATED BP, SEE COMMENTS Last administered on 10/20/18at 04:00; Start 10/12/18 at 11:45 Insulin Glargine (Lantus) 10 units QHS SQ Last administered on 10/21/18at 21:54; Start 10/13/18 at 21:00 Ondansetron HCl (Zofran) 4 mg PRN Q6HRS PRN IV NAUSEA/VOMITING; Start 10/16/18 at 07:00; Stop 10/17/18 at 06:59; Status DC Fentanyl Citrate (Fentanyl 2ml Vial) 25 mcg PRN Q5MIN PRN IV MILD PAIN 1-3; Start 10/16/18 at 07:00; Stop 10/17/18 at 06:59; Status DC Fentanyl Citrate (Fentanyl 2ml Vial) 50 mcg PRN Q5MIN PRN IV MODERATE TO SEVERE PAIN Last administered on 10/17/18at 00:36; Start 10/16/18 at 07:00; Stop 10/17/18 at 06:59; Status DC Morphine Sulfate (Morphine Sulfate) 1 mg PRN Q10MIN PRN IV SEVERE PAIN 7-10; Start 10/16/18 at 07:00; Stop 10/17/18 at 06:59; Status DC Ringer's Solution 1,000 ml @ 30 mls/hr Q24H IV ; Start 10/16/18 at 07:00; Stop 10/16/18 at 18:59; Status DC Lidocaine HCl (Xylocaine-Mpf 1% 2ml Vial) 2 ml PRN 1X PRN ID PRIOR TO IV START; Start 10/16/18 at 07:00; Stop 10/17/18 at 06:59; Status DC Hydromorphone HCl (Dilaudid) 0.5 mg PRN Q10MIN PRN IV SEV PAIN, Second choice; Start 10/16/18 at 07:00; Stop 10/17/18 at 06:59; Status DC Prochlorperazine Edisylate (Compazine) 5 mg PACU PRN PRN IV NAUSEA, MRX1; Sta rt 10/16/18 at 07:00; Stop 10/17/18 at 06:59; Status DC Fentanyl Citrate (Fentanyl 2ml Vial) 50 mcg PRN Q2HR PRN IV PAIN, 2ND CHOICE Last administered on 10/22/18at 03:46; Start 10/14/18 at 00:30 Methylprednisolone Sodium Succinate (SOLU-Medrol 40MG VIAL) 40 mg Q12HR IV Last administered on 10/15/18at 08:28; Start 10/14/18 at 21:00; Stop 10/15/18 at 09:16; Status DC Methylprednisolone Sodium Succinate (SOLU-Medrol 40MG VIAL) 40 mg DAILY IV Last administered on 10/20/18at 08:05; Start 10/16/18 at 09:00; Stop 10/20/18 at 13:10; Status DC Sodium Chloride 500 ml @ 500 mls/hr 1X ONCE IV Last administered on 10/15/18at 09:59; Start 10/15/18 at 09:30; Stop 10/15/18 at 10:29; Status DC Sodium Chloride 1,000 ml @ 75 mls/hr [id number] IV Last administered on 10/17/18at 05:19; Start 10/15/18 at 11:45; Stop 10/17/18 at 17:11; Status DC Bisacodyl (Dulcolax Supp) 10 mg PRN DAILY PRN IA CONSTIPATION Last administered on 10/19/18at 08:06; Start 10/15/18 at 13:30 Midazolam HCl (Versed) 2 mg STK-MED ONCE .ROUTE ; Start 10/16/18 at 12:36; Stop 10/16/18 at 12:37; Status DC Fentanyl Citrate (Fentanyl 2ml Vial) 100 mcg STK-MED ONCE .ROUTE ; Start 09/28 at 12:36; Stop 10/16/18 at 12:37; Status DC Rocuronium [place] (Zemuron) 50 mg STK-MED ONCE .ROUTE ; Start 10/16/18 at 12: 36; Stop 10/16/18 at 12:37; Status DC Neostigmine Methylsulfate (Neostigmine Methylsulfate) 5 mg STK-MED ONCE .ROUTE ; Start 10/16/18 at 13:27; Stop 10/16/18 at 13:28; Status DC Glycopyrrolate (Robinul) 1 mg STK-MED ONCE .ROUTE ; Start 10/16/18 at 13:27; Stop 10/16/18 at 13:28; Status DC Sevoflurane (Ultane) 30 ml STK-MED ONCE IH ; Start 10/16/18 at 13:36; Stop 10/16/18 at 13:37; Status DC Ringer's Solution 1,000 ml @ 50 mls/hr Q20H IV ; Start 10/17/18 at 07:00; Stop 10/17/18 at 18:59; Status DC Atorvastatin Calcium (Lipitor) 10 mg QHS PO Last administered on 10/21/18at 21:34; Start 10/17/18 at 21:00 Sodium Chloride 1,000 ml @ 75 mls/hr [id number] IV Last administered on 10/18/18at 08:48; Start 10/17/18 at 17:15; Stop 10/18/18 at 14:22; Status DC Aspirin (Children'S Aspirin) 81 mg DAILYWBKFT PO Last administered on 10/22/18at 10:37; Start 10/19/18 at 08:00 Furosemide (Lasix) 40 mg DAILY PO Last administered on 10/22/18at 10:37; Start 10/19/18 at 09:00 Metoclopramide HCl (Reglan Vial) 5 mg QIDACHS IV Last administered on 10/20/18at 11:09; Start 10/19/18 at 11:30; Stop 10/20/18 at 12:42; Status DC Alteplase, Recombinant (Cathflo For Central Catheter Clearance) 1 mg 1X ONCE INT CAT Last administered on 10/19/18at 17:05; Start 10/19/18 at 16:45; Stop 10/19/18 at 16:48; Status DC Alteplase, Recombinant (Cathflo For Central Catheter Clearance) 1 mg 1X ONCE INT CAT Last administered on 10/19/18at 17:05; Start 10/19/18 at 16:45; Stop 10/19/18 at 16:48; Status DC Fluconazole (Diflucan) 200 mg DAILY PO Last administered on 10/22/18at 09:00; Start 10/20/18 at 11:00 Info (Tpn Per Pharmacy) 1 each PRN DAILY PRN MC SEE COMMENTS Last administered on 10/22/18at 12:16; Start 10/20/18 at 10:00; Stop 10/22/18 at 21:59 Lorazepam (Ativan Inj) 1 mg PRN Q6HRS PRN IV ANXIETY / AGITATION Last administered on 10/22/18at 03:00; Start 10/20/18 at 10:30 Sodium Chloride 20 meq/Potassium Acetate 50 meq/ Potassium Phosphate 13.6 mmol/Magnesium Sulfate 10 meq/ Calcium Gluconate 10 meq/ Multivitamins 10 ml/Chromium/ Copper/Manganese/ Seleni/Zn 1 ml/ Total Parenteral Nutrition/Amino Acids/Dextrose/ Fat Emulsion Intravenous 1,512 ml @ 63 mls/hr TPN CONT IV Last administered on 10/20/18at 21:59; Start 10/20/18 at 22:00; Stop 10/21/18 at 21:59; Status DC Metoclopramide HCl (Reglan Vial) 10 mg QIDACHS IV Last administered on 10/22/18at 10:37; Start 10/20/18 at 16:30 Dexmedetomidine HCl 200 mcg/ Sodium Chloride 50 ml @ 0 mls/hr CONT PRN IV PER PROTOCOL; Start 10/20/18 at 15:15; Status UNV Sodium Chloride 500 ml @ 500 mls/hr 1X PRN PRN IV SEE COMMENTS; Start 10/20/18 at 15:15; Status UNV Atropine Sulfate (ATROPINE 0.5mg SYRINGE) 0.5 mg PRN Q5MIN PRN IV SEE COMMENTS; Start 10/20/18 at 15:15; Status UNV Sodium Chloride 10 meq/Potassium Acetate 50 meq/ Potassium Phosphate 15 mmol/ Magnesium Sulfate 8 meq/Calcium Gluconate 10 meq/ Multivitamins 10 ml/Chromium/ Copper/Manganese/ Seleni/Zn 1 ml/ Total Parenteral Nutrition/Amino Acids/Dextrose/ Fat Emulsion Intravenous 1,512 ml @ 63 mls/hr TPN CONT IV Last administered on 10/21/18at 21:35; Start 10/21/18 at 22:00; Stop 10/22/18 at 21:59 Iohexol (Omnipaque 300 Mg/ml) 75 ml 1X ONCE IV Last administered on 10/21/18at 20:54; Start 10/21/18 at 20:00; Stop 10/21/18 at 20:01; Status DC Iohexol (Omnipaque 240 Mg/ml) 30 ml 1X ONCE PO Last administered on 10/21/18at 19:35; Start 10/21/18 at 20:00; Stop 10/21/18 at 20:01; Status DC Info (CONTRAST GIVEN -- Rx MONITORING) 1 each PRN DAILY PRN MC SEE COMMENTS; Start 10/21/18 at 20:00; Stop 10/23/18 at 19:59 Albuterol/ Ipratropium (Duoneb) 3 ml Q4HRS NEB Last administered on 10/22/18at 11:19; Start 10/22/18 at 08:00 Budesonide (Pulmicort) 0.5 mg RTBID NEB Last administered on 10/22/18at 07:35; Start 10/22/18 at 08:00 Active Scripts Active Reported Proair Hfa (Albuterol Sulfate) 8.5 Gm Hfa.aer.ad 1 Puff INH PRN Q6HRS PRN Oxazepam 30 Mg Capsule 30 Mg PO QHS Vitals/I & O Vital Sign - Last 24 Hours 10/21/18 10/21/18 10/21/18 10/21/18 14:00 15:00 15:05 15:45 Temp 97.7 97.7 Pulse 74 77 Resp 26 B/P (MAP) 124/66 (85) 160/77 (104) Pulse Ox 99 100 99 100 O2 Delivery Ventilator Ventilator Ventilator Ventilator 10/21/18 10/21/18 10/21/18 10/21/18 16:00 16:00 17:00 18:00 Pulse 77 80 97 Resp 32 B/P (MAP) 138/79 (98) 156/76 (102) 162/85 (110) Pulse Ox 100 99 98 O2 Delivery Ventilator Mechanical Ventilator Ventilator Ventilator 10/21/18 10/21/18 10/21/18 10/21/18 19:15 19:15 19:46 20:10 Temp 99.0 99.0 Pulse 102 96 Resp 22 B/P (MAP) 189/73 (111) 190/68 (108) Pulse Ox 98 100 99 O2 Delivery Ventilator Mechanical Ventilator Ventilator Ventilator 10/21/18 10/21/18 10/21/18 10/21/18 21:00 21:15 21:28 22:00 Pulse 92 102 Resp 24 24 24 B/P (MAP) 183/69 (107) 163/67 (99) Pulse Ox 100 100 100 O2 Delivery Ventilator Ventilator Ventilator Ventilator 10/21/18 10/22/18 10/22/18 10/22/18 23:10 00:04 00:05 00:09 Temp 99.9 99.9 Pulse 77 70 Resp 22 B/P (MAP) 175/79 (111) 117/53 (74) Pulse Ox 99 100 99 O2 Delivery Ventilator Mechanical Ventilator Ventilator Ventilator 10/22/18 10/22/18 10/22/18 10/22/18 01:00 02:00 02:12 03:00 Temp 99.6 99.6 Pulse 68 68 106 Resp B/P (MAP) 153/65 (94) 184/73 (110) Pulse Ox 100 100 100 100 O2 Delivery Ventilator Ventilator Ventilator Ventilator 10/22/18 10/22/18 10/22/18 10/22/18 03:20 03:54 04:00 05:00 Pulse 74 87 Resp 19 B/P (MAP) 98/48 (65) 101/63 (76) Pulse Ox 100 100 99 O2 Delivery Ventilator Mechanical Ventilator Ventilator Ventilator 10/22/18 10/22/18 10/22/18 10/22/18 05:20 06:00 07:00 07:30 Temp 98.7 98.7 Pulse 88 93 Resp 34 B/P (MAP) 126/96 (106) 156/74 (101) Pulse Ox 100 99 99 98 O2 Delivery Ventilator Ventilator Ventilator Ventilator 10/22/18 10/22/18 10/22/18 10/22/18 08:00 08:00 09:00 09:30 Pulse 102 78 Resp 21 B/P (MAP) 188/87 (120) 140/65 (90) Pulse Ox 99 99 99 O2 Delivery Ventilator Mechanical Ventilator Ventilator Ventilator 10/22/18 10/22/18 10/22/18 10/22/18 10:00 10:37 10:38 11:00 Pulse 70 83 92 Resp 21 28 26 B/P (MAP) 117/55 (75) 117/55 140/66 (90) Pulse Ox 98 98 100 O2 Delivery Ventilator Ventilator Ventilator 10/22/18 10/22/18 10/22/18 10/22/18 11:08 11:19 12:00 12:00 Pulse 94 Resp 27 29 B/P (MAP) 141/59 (86) Pulse Ox 99 99 100 O2 Delivery Ventilator Mechanical Ventilator Ventilator 10/22/18 13:00 Pulse 74 Resp 9 B/P (MAP) 135/53 (80) Pulse Ox 99 O2 Delivery Ventilator Intake and Output 10/21/18 10/21/18 10/22/18 15:00 23:00 07:00 Intake Total 350 ml 200 ml 1385 ml Output Total 1000 ml 950 ml 1025 ml Balance -650 ml -750 ml 360 ml RAJIV PEREZ III DO October 22, 2018 13:27
[2018-10-22] MEDS: ATORVASTATIN CALCIUM 10 MG TABLET. PO SCH (20:07)
[2018-10-22] MEDS: FAMOTIDINE 20 MG/2 ML VIAL IVP SCH (20:07)
[2018-10-22] MEDS: ACETAMINOPHEN 650 MG/20.3 ML SOLUTION. PEG PRN (20:27)
[2018-10-22] MEDS: INSULIN GLARGINE 300 UNITS/3 ML INSULN.PEN. SQ SCH (21:37)
[2018-10-23] VITALS (24 sets, daily range): BP systolic 79–196; BP diastolic 47–95
[2018-10-23] MEDS: MORPHINE SULFATE 2 MG/ML VIAL. IV PRN ×3 (00:02→14:41)
[2018-10-23] MEDS: IPRATRPIUM/ALBUTEROL 0.5/2.5MG 3 ML NEBU. NEB SCH ×7 (04:00→23:55)
[2018-10-23] MEDS: INSULIN LISPRO 300 UNITS/3 ML INSULN.PEN. SQ SCH ×5 (05:59→23:44)
[2018-10-23] MEDS: HEPARIN for SUB-Q USE 5,000 UNIT/ML VIAL. SQ SCH ×3 (06:04→23:42)
[2018-10-23] MEDS: fentaNYL PF VIAL 100 MCG/2 ML VIAL IV PRN (06:51)
[2018-10-23] MEDS: BUDESONIDE 0.5 MG/2 ML NEBU. NEB SCH ×2 (07:10→19:40)
[2018-10-23 07:44] LABS: CREATININE 1.1 mg/dL (0.7-1.3); GFR 65.1; MAGNESIUM 2.1 mg/dL (1.8-2.4); POTASSIUM 4.8 mmol/L (3.5-5.1)
--- NOTE | 2018-10-23 08:17 | PDOC ---
Infectious Disease Note Subjective: Subjective pt is awake,doing well ROS: ROS no fevers , nausea, vomiting, diarrhea Vital Signs: Vital Signs Vital Signs Date Time Temp Pulse Resp B/P (MAP) Pulse Ox O2 Delivery O2 Flow Rate FiO2 10/23/18 07:21 22 100 Ventilator 10/23/18 07:00 98.8 83 94/47 (63) 98.8 Physical Exam: PHYSICAL EXAM GENERAL: awake, alert.comfortable HENT: normal conj. PERRL. Neck : trach, + LUNGS: Clear CV: S1 S2 irregular ABD: Obese, soft, NT, BS present has a PEG feeding running, PEG in place : Jeffers in place EXT: 1 + edema lower extremities, bilaterally. No cyanosis. SKIN: warm without rash [employer]: awake, no focal deficit Medications: Inpatient Meds: Current Medications Medications (Trade) Dose Ordered Sig/Eric Start Time Stop Time Status Last Admin Dose Admin Acetaminophen (Tylenol) 650 mg PRN Q6HRS PRN 10/07/18 12:45 10/22/18 20:27 650 MG Albuterol Sulfate (Ventolin Neb Soln) 2.5 mg PRN Q2HR PRN 10/07/18 15:00 Albuterol/ Ipratropium (Duoneb) 3 ml Q4HRS 10/22/18 08:00 10/23/18 07:10 3 ML Alteplase, Recombinant (Cathflo For Central Catheter Clearance) 1 mg 1X ONCE 10/19/18 16:45 10/19/18 16:48 DC 10/19/18 17:05 1 MG Amlodipine Besylate (Norvasc) 5 mg DAILY 10/12/18 12:30 10/22/18 10:37 5 MG Aspirin (Children'S Aspirin) 81 mg DAILYWBKFT 10/19/18 08:00 10/22/18 10:37 81 MG Aspirin (Ecotrin) 81 mg DAILYWBKFT 10/10/18 08:00 10/18/18 09:01 DC 10/18/18 08:39 81 MG Atorvastatin Calcium (Lipitor) 10 mg QHS 10/17/18 21:00 10/22/18 20:07 10 MG Atropine Sulfate (ATROPINE 0.5mg SYRINGE) 0.5 mg PRN Q5MIN PRN 10/20/18 15:15 UNV Bisacodyl (Dulcolax Supp) 10 mg PRN DAILY PRN 10/15/18 13:30 10/19/18 08:06 10 MG Budesonide (Pulmicort) 0.5 mg RTBID 10/22/18 08:00 10/23/18 07:10 0.5 MG Calcium Gluconate (Calcium Gluconate) 1,000 mg 1X ONCE 10/07/18 13:30 10/07/18 13:31 Cancel Calcium Gluconate 1000 mg/Sodium Chloride 110 ml @ 220 mls/hr 1X ONCE 10/07/18 15:00 10/07/18 15:29 DC 10/07/18 14:23 220 MLS/HR Dexmedetomidine HCl 200 mcg/ Sodium Chloride 50 ml @ 0 mls/hr CONT PRN 10/20/18 15:15 UNV Dextrose (Dextrose 50%-Water Syringe) 12.5 gm PRN Q15MIN PRN 10/07/18 12:45 Doxycycline Hyclate 100 mg/ Dextrose 100 ml @ 50 mls/hr Q12HR 10/09/18 13:00 10/22/18 20:06 50 MLS/HR Etomidate (Amidate) 20 mg 1X ONCE 10/07/18 11:30 10/07/18 11:33 DC 10/07/18 11:01 20 MG Famotidine (Pepcid Vial) 20 mg QHS 10/08/18 21:00 10/22/18 20:07 20 MG Fentanyl Citrate (Fentanyl 2ml Vial) 100 mcg STK-MED ONCE 10/16/18 12:36 10/16/18 12:37 DC Fluconazole (Diflucan) 200 mg DAILY 10/20/18 11:00 10/22/18 09:00 200 MG Furosemide (Lasix) 40 mg DAILY 10/19/18 09:00 10/22/18 10:37 40 MG Glycopyrrolate (Robinul) 1 mg STK-MED ONCE 10/16/18 13:27 10/16/18 13:28 DC Heparin Sodium (Porcine) (Heparin Sodium) 5,000 unit Q8HRS 10/07/18 14:00 10/23/18 06:04 5,000 UNIT Hydralazine HCl (Apresoline Inj) 10 mg PRN Q4HRS PRN 10/12/18 11:45 10/20/18 04:00 10 MG Hydromorphone HCl (Dilaudid) 0.5 mg PRN Q10MIN PRN 10/16/18 07:00 10/17/18 06:59 DC Info (CONTRAST GIVEN -- Rx MONITORING) 1 each PRN DAILY PRN 10/21/18 20:00 10/23/18 19:59 Info (Tpn Per Pharmacy) 1 each PRN DAILY PRN 10/20/18 10:00 10/22/18 21:59 DC 10/22/18 12:16 1 EACH Insulin Glargine (Lantus) 10 units QHS 10/13/18 21:00 10/22/18 21:37 10 UNITS Insulin Human Lispro (HumaLOG) 0-9 UNITS Q6HRS 10/07/18 18:00 10/22/18 18:00 4 UNITS Insulin Human Regular (HumuLIN R VIAL) 10 unit 1X ONCE 10/07/18 12:45 10/07/18 12:46 DC 10/07/18 13:00 10 UNIT Iohexol (Omnipaque 240 Mg/ml) 30 ml 1X ONCE 10/21/18 20:00 10/21/18 20:01 DC 10/21/18 19:35 30 ML Iohexol (Omnipaque 300 Mg/ml) 75 ml 1X ONCE 10/21/18 20:00 10/21/18 20:01 DC 10/21/18 20:54 75 ML Lactobacillus Rhamnosus (Culturelle) 1 cap BID 10/08/18 09:00 10/09/18 15:58 DC Levofloxacin/ Dextrose 150 ml @ 100 mls/hr Q48H 10/09/18 12:00 10/09/18 12:00 DC Levofloxacin/ Dextrose (Levaquin Per Pharmacy) 1 each PRN DAILY PRN 10/07/18 12:45 10/08/18 07:33 DC Lidocaine HCl (Xylocaine-Mpf 1% 2ml Vial) 2 ml PRN 1X PRN 10/16/18 07:00 10/17/18 06:59 DC Linezolid/Dextrose 300 ml @ 300 mls/hr Q12HR 10/08/18 11:30 10/10/18 07:24 DC 10/09/18 20:58 300 MLS/HR Lisinopril (Prinivil) 10 mg DAILY 10/11/18 14:00 10/15/18 09:46 DC 10/14/18 08:03 10 MG Lorazepam (Ativan Inj) 1 mg PRN Q6HRS PRN 10/20/18 10:30 10/23/18 03:29 1 MG Meropenem 500 mg/ Sodium Chloride 50 ml @ 100 mls/hr Q8HRS 10/07/18 17:00 10/20/18 09:03 DC 10/20/18 05:36 100 MLS/HR Methylprednisolone Sodium Succinate (SOLU-Medrol 40MG VIAL) 40 mg DAILY 10/16/18 09:00 10/20/18 13:10 DC 10/20/18 08:05 40 MG Methylprednisolone Sodium Succinate (SOLU-Medrol 125MG VIAL) 125 mg 1X ONCE 10/07/18 12:00 10/07/18 12:01 DC 10/07/18 11:52 125 MG Metoclopramide HCl (Reglan Vial) 10 mg QIDACHS 10/20/18 16:30 10/22/18 20:07 10 MG Midazolam HCl (Versed) 2 mg STK-MED ONCE 10/16/18 12:36 10/16/18 12:37 DC Morphine Sulfate (Morphine Sulfate) 1 mg PRN Q10MIN PRN 10/16/18 07:00 10/17/18 06:59 DC Neostigmine Methylsulfate (Neostigmine Methylsulfate) 5 mg STK-MED ONCE 10/16/18 13:27 10/16/18 13:28 DC Norepinephrine Bitartrate 250 ml @ 1.875 mls/ hr CONT PRN 10/07/18 14:00 10/07/18 14:01 13.125 MLS/HR Ondansetron HCl (Zofran) 4 mg PRN Q6HRS PRN 10/16/18 07:00 10/17/18 06:59 DC Pantoprazole Sodium (PROTONIX VIAL for IV PUSH) 40 mg STK-MED ONCE 10/07/18 12:52 10/07/18 12:55 DC Prochlorperazine Edisylate (Compazine) 5 mg PACU PRN PRN 10/16/18 07:00 10/17/18 06:59 DC Ringer's Solution 1,000 ml @ 50 mls/hr Q20H 10/17/18 07:00 10/17/18 18:59 DC Rocuronium [place] (Zemuron) 50 mg STK-MED ONCE 10/16/18 12:36 10/16/18 12:37 DC Sevoflurane (Ultane) 30 ml STK-MED ONCE 10/16/18 13:36 10/16/18 13:37 DC Sodium Polystyrene Sulfonate (Kayexalate) 15 gm 1X ONCE 10/07/18 13:30 10/07/18 13:31 DC 10/07/18 14:10 15 GM Sodium Bicarbonate (Sodium Bicarb Adult 8.4% Syr) 50 meq 1X ONCE 10/07/18 12:45 10/07/18 12:46 DC 10/07/18 13:07 50 MEQ Sodium Chloride 10 meq/Potassium Acetate 50 meq/ Potassium Phosphate 15 mmol/ Magnesium Sulfate 8 meq/Calcium Gluconate 10 meq/ Multivitamins 10 ml/Chromium/ Copper/Manganese/ Seleni/Zn 1 ml/ Total Parenteral Nutrition/Amino Acids/Dextrose/ Fat Emulsion Intravenous 1,512 ml @ 63 mls/hr TPN CONT 10/21/18 22:00 10/22/18 21:59 DC 10/21/18 21:35 63 MLS/HR Sodium Chloride 20 meq/Potassium Acetate 50 meq/ Potassium Phosphate 13.6 mmol/Magnesium Sulfate 10 meq/ Calcium Gluconate 10 meq/ Multivitamins 10 ml/Chromium/ Copper/Manganese/ Seleni/Zn 1 ml/ Total Parenteral Nutrition/Amino Acids/Dextrose/ Fat Emulsion Intravenous 1,512 ml @ 63 mls/hr TPN CONT 10/20/18 22:00 10/21/18 21:59 DC 10/20/18 21:59 63 MLS/HR Succinylcholine Chloride (Anectine) 100 mg 1X ONCE 10/07/18 11:30 10/07/18 11:33 DC 10/07/18 11:01 100 MG Vancomycin HCl 250 ml @ 250 mls/hr 1X ONCE 10/07/18 12:00 10/07/18 12:59 DC 10/07/18 12:27 250 MLS/HR Labs: Lab Laboratory Tests Test 10/22/18 13:48 10/22/18 17:58 10/22/18 21:35 10/23/18 00:00 Glucose (Fingerstick) 176 mg/dL (70-99) 176 mg/dL (70-99) 165 mg/dL (70-99) 155 mg/dL (70-99) Test 10/23/18 05:59 10/23/18 06:40 Glucose (Fingerstick) 142 mg/dL (70-99) Sodium Level 142 mmol/L (136-145) Potassium Level 4.8 mmol/L (3.5-5.1) Chloride Level 104 mmol/L (98-107) Carbon Dioxide Level 30 mmol/L (21-32) Anion Gap 8 (6-14) Blood Urea Nitrogen 54 mg/dL (8-26) Creatinine 1.1 mg/dL (0.7-1.3) Estimated GFR (Cockcroft-Gault) 65.1 Glucose Level 134 mg/dL (70-99) Calcium Level 9.0 mg/dL (8.5-10.1) Phosphorus Level 3.0 mg/dL (2.6-4.7) Magnesium Level 2.1 mg/dL (1.8-2.4) Micro micro reviewed Objective: Assessment: Fever - resolved Pneumonia + mycoplasma 10/08 - on Doxy 10/09. Sputum cult - routine raheel/ Strep and Legionella - neg UTI, POA staph sap NSTEMI Lactic acidosis - improved Allergy PCN w/ hives and throat swelling; erythromycin w/ hives. Leukocytosis - on steroids - better Hypotension, now off Levophed gtt Acute encephalopathy - improving Acute respiratory failure s/p intubation ALEX - better COPD, O2 dependent Plan: Plan of Care awaiting tx to select cont doxycycline D/W ENRIQUE CHAMBERS MD October 23, 2018 08:17
[2018-10-23] MEDS: METOCLOPRAMIDE HCL 10 MG/2 ML VIAL. IV SCH ×4 (08:24→23:27)
[2018-10-23] MEDS: FLUCONAZOLE 100 MG TABLET. PO SCH (08:25)
[2018-10-23] MEDS: amLODIPine BESYLATE 5 MG TABLET PO SCH (08:25)
[2018-10-23] MEDS: FUROSEMIDE 40 MG TABLET. PO SCH (08:25)
[2018-10-23] MEDS: ASPIRIN CHEWABLE 81 MG TABLET. PO SCH (08:25)
[2018-10-23] MEDS: DOXYCYCLINE HYCLATE 100 MG in IV DEXTROSE 5% 100ML 100 ML IV SCH ×2 (08:26→23:21)
[2018-10-23 08:58] LABS: BASO % 0 % (0-3); EOS # 0.4 x10^3/uL (0.0-0.7); EOS % 4 % (0-3); HEMOGLOBIN 10.3 g/dL (13.0-17.5); LYMPH % 10 % (24-48); MEAN CORPUSCULAR HEMOGLOBIN 29 pg (25-35); MEAN CORPUSCULAR HGB CONC 31 g/dL (31-37); MEAN CORPUSCULAR VOLUME 93 fL (79-100); MONO # 0.5 x10^3/uL (0.0-1.1); MONO % 6 % (0-9); NEUT % 80 % (31-73); PLATELET COUNT 132 x10^3/uL (140-400); RED BLOOD COUNT 3.53 x10^6/uL (4.30-5.70); RED CELL DISTRIBUTION WIDTH 16.7 % (11.5-14.5)
--- NOTE | 2018-10-23 09:02 | RAD ---
AP portable chest radiograph 10/23/2018 Clinical History: Respiratory failure. An AP erect portable digital radiograph of the chest was obtained. Comparison study is dated 10/21/2018. A tracheostomy tube is unchanged position. The cardiac silhouette is normal in size. Atherosclerotic calcification of the thoracic aorta is seen. The small pleural effusions seen on the previous examination have resolved. Patchy left lower lobe subsegmental atelectasis and/or infiltrate is seen. No pneumothorax is noted. The osseous structures are unchanged. The right arm PICC is unchanged. Impression: Patchy left lower lobe subsegmental atelectasis and or infiltrate. Electronically signed by: Ben Danielson MD (10/23/2018 9:00 AM) [facility]
--- NOTE | 2018-10-23 09:05 | PDOC ---
PROGRESS NOTES Chief Complaint Chief Complaint Acute on chronic hypercapnic and hypoxic respiratory failure s/p Trach and PEG End-stage COPD Clinical pneumonia MORBID OBESITY Possible sepsis UTI- Staphylococcus saprophyticus. Greater than 100,000 colony forming units per mL Pneumonia + mycoplasma 10/08 - on Doxy 10/09 azotemia ICU deconditioning Severe protein calorie malnutrition History of Present Illness History of Present Illness The patient is a 78-year-old male who was admitted on October 07, after being found down unresponsive. He apparently did not lose a pulse. He was intubated upon admission and remains on the ventilator since. He apparently has a history of severe COPD and has been oxygen dependent at home, although according to his , he is not been using his oxygen prior to admit. He has a history of lifelong heavy smoking 3ppd, but did quit 3 years ago. He was a prior heavy ETOH user, has also since quit this. He failed several weaning trials and is s/p tracheostomy and PEG placement on 10/17/2018. Patient was seen and examined in the ICU He has a trach (day 6) remains unable to speak, still is alert and able to communicate PEG feeds had high residuals so maintaining TPN Vent set to spontaneous respirations 14 of pressure support 35% FiO2 Discussed with RN Has been more agitated with increased ativan, morphine and fentanyl requirements when has has large mucous plugs removed. Vitals Vitals Vital Signs Date Time Temp Pulse Resp B/P (MAP) Pulse Ox O2 Delivery O2 Flow Rate FiO2 10/23/18 08:53 100 Ventilator 10/23/18 08:25 83 164/61 10/23/18 08:00 22 10/23/18 07:00 98.8 98.8 Physical Exam Physical Exam GENERAL: awake, alert.comfortable HENT: normal conj. PERRL. Neck : trach, + LUNGS: Clear CV: S1 S2 irregular ABD: Obese, soft, NT, BS present has a PEG feeding running, PEG in place : Jeffers in place EXT: 1 + edema lower extremities, bilaterally. No cyanosis. SKIN: warm without rash HOUSEHOLD COORDINATOR: awake, no focal deficit General: Alert, No acute distress, Other (Tracheostomy/Vent unable to speak) Heart: Regular rate, Normal S1, Normal S2 Lungs: Wheezing, Crackles Abdomen: Soft, No tenderness Extremities: No cyanosis, Other (trace edema) Skin: No significant lesion Labs LABS Laboratory Tests Test 10/22/18 13:48 10/22/18 17:58 10/22/18 21:35 10/23/18 00:00 Glucose (Fingerstick) 176 mg/dL (70-99) 176 mg/dL (70-99) 165 mg/dL (70-99) 155 mg/dL (70-99) Test 10/23/18 05:59 10/23/18 06:40 Glucose (Fingerstick) 142 mg/dL (70-99) Sodium Level 142 mmol/L (136-145) Potassium Level 4.8 mmol/L (3.5-5.1) Chloride Level 104 mmol/L (98-107) Carbon Dioxide Level 30 mmol/L (21-32) Anion Gap 8 (6-14) Blood Urea Nitrogen 54 mg/dL (8-26) Creatinine 1.1 mg/dL (0.7-1.3) Estimated GFR (Cockcroft-Gault) 65.1 Glucose Level 134 mg/dL (70-99) Calcium Level 9.0 mg/dL (8.5-10.1) Phosphorus Level 3.0 mg/dL (2.6-4.7) Magnesium Level 2.1 mg/dL (1.8-2.4) Assessment and Plan Assessmemt and Plan Problems Medical Problems: (1) Acute respiratory distress Status: Acute (2) CAP (community acquired pneumonia) Status: Acute (3) CHF (congestive heart failure) Status: Acute (4) Elevated liver function tests Status: Acute (5) Elevated troponin I level Status: Acute (6) Hyperkalemia Status: Acute (7) Renal insufficiency Status: Acute (8) Sepsis Status: Acute (9) Unresponsiveness Status: Acute (10) Urinary tract infection Status: Acute Comment Review of Relevant I have reviewed the following items akbar (where applicable) has been applied. Labs Laboratory Tests Test 10/21/18 09:47 10/21/18 11:32 10/21/18 16:56 10/21/18 21:52 White Blood Count 13.1 x10^3/uL (4.0-11.0) Red Blood Count 3.94 x10^6/uL (4.30-5.70) Hemoglobin 11.5 g/dL (13.0-17.5) Hematocrit 36.4 % (39.0-53.0) Mean Corpuscular Volume 93 fL (79-100) Mean Corpuscular Hemoglobin 29 pg (25-35) Mean Corpuscular Hemoglobin Concent 32 g/dL (31-37) Red Cell Distribution Width 16.6 % (11.5-14.5) Platelet Count 158 x10^3/uL (140-400) Neutrophils (%) (Auto) 83 % (31-73) Lymphocytes (%) (Auto) 10 % (24-48) Monocytes (%) (Auto) 6 % (0-9) Eosinophils (%) (Auto) 1 % (0-3) Basophils (%) (Auto) 0 % (0-3) Neutrophils # (Auto) 10.9 x10^3uL (1.8-7.7) Lymphocytes # (Auto) 1.3 x10^3/uL (1.0-4.8) Monocytes # (Auto) 0.8 x10^3/uL (0.0-1.1) Eosinophils # (Auto) 0.1 x10^3/uL (0.0-0.7) Basophils # (Auto) 0.0 x10^3/uL (0.0-0.2) Sodium Level 146 mmol/L (136-145) Potassium Level 4.4 mmol/L (3.5-5.1) Chloride Level 108 mmol/L (98-107) Carbon Dioxide Level 34 mmol/L (21-32) Anion Gap 4 (6-14) Blood Urea Nitrogen 46 mg/dL (8-26) Creatinine 1.1 mg/dL (0.7-1.3) Estimated GFR (Cockcroft-Gault) 65.1 Glucose Level 212 mg/dL (70-99) Calcium Level 8.7 mg/dL (8.5-10.1) Phosphorus Level 2.4 mg/dL (2.6-4.7) Magnesium Level 2.4 mg/dL (1.8-2.4) Glucose (Fingerstick) 206 mg/dL (70-99) 155 mg/dL (70-99) 106 mg/dL (70-99) Test 10/22/18 00:16 10/22/18 06:10 10/22/18 06:21 10/22/18 13:48 Glucose (Fingerstick) 140 mg/dL (70-99) 169 mg/dL (70-99) 176 mg/dL (70-99) White Blood Count 12.2 x10^3/uL (4.0-11.0) Red Blood Count 3.99 x10^6/uL (4.30-5.70) Hemoglobin 11.9 g/dL (13.0-17.5) Hematocrit 37.0 % (39.0-53.0) Mean Corpuscular Volume 93 fL (79-100) Mean Corpuscular Hemoglobin 30 pg (25-35) Mean Corpuscular Hemoglobin Concent 32 g/dL (31-37) Red Cell Distribution Width 16.4 % (11.5-14.5) Platelet Count 175 x10^3/uL (140-400) Neutrophils (%) (Auto) 81 % (31-73) Lymphocytes (%) (Auto) 10 % (24-48) Monocytes (%) (Auto) 6 % (0-9) Eosinophils (%) (Auto) 3 % (0-3) Basophils (%) (Auto) 0 % (0-3) Neutrophils # (Auto) 9.9 x10^3uL (1.8-7.7) Lymphocytes # (Auto) 1.2 x10^3/uL (1.0-4.8) Monocytes # (Auto) 0.8 x10^3/uL (0.0-1.1) Eosinophils # (Auto) 0.3 x10^3/uL (0.0-0.7) Basophils # (Auto) 0.0 x10^3/uL (0.0-0.2) Sodium Level 142 mmol/L (136-145) Potassium Level 4.6 mmol/L (3.5-5.1) Chloride Level 105 mmol/L (98-107) Carbon Dioxide Level 33 mmol/L (21-32) Anion Gap 4 (6-14) Blood Urea Nitrogen 47 mg/dL (8-26) Creatinine 1.1 mg/dL (0.7-1.3) Estimated GFR (Cockcroft-Gault) 65.1 Glucose Level 196 mg/dL (70-99) Calcium Level 8.6 mg/dL (8.5-10.1) Phosphorus Level 2.7 mg/dL (2.6-4.7) Magnesium Level 2.1 mg/dL (1.8-2.4) Test 10/22/18 17:58 10/22/18 21:35 10/23/18 00:00 10/23/18 05:59 Glucose (Fingerstick) 176 mg/dL (70-99) 165 mg/dL (70-99) 155 mg/dL (70-99) 142 mg/dL (70-99) Test 10/23/18 06:40 Sodium Level 142 mmol/L (136-145) Potassium Level 4.8 mmol/L (3.5-5.1) Chloride Level 104 mmol/L (98-107) Carbon Dioxide Level 30 mmol/L (21-32) Anion Gap 8 (6-14) Blood Urea Nitrogen 54 mg/dL (8-26) Creatinine 1.1 mg/dL (0.7-1.3) Estimated GFR (Cockcroft-Gault) 65.1 Glucose Level 134 mg/dL (70-99) Calcium Level 9.0 mg/dL (8.5-10.1) Phosphorus Level 3.0 mg/dL (2.6-4.7) Magnesium Level 2.1 mg/dL (1.8-2.4) Laboratory Tests Test 10/22/18 13:48 10/22/18 17:58 10/22/18 21:35 10/23/18 00:00 Glucose (Fingerstick) 176 mg/dL (70-99) 176 mg/dL (70-99) 165 mg/dL (70-99) 155 mg/dL (70-99) Test 10/23/18 05:59 10/23/18 06:40 Glucose (Fingerstick) 142 mg/dL (70-99) Sodium Level 142 mmol/L (136-145) Potassium Level 4.8 mmol/L (3.5-5.1) Chloride Level 104 mmol/L (98-107) Carbon Dioxide Level 30 mmol/L (21-32) Anion Gap 8 (6-14) Blood Urea Nitrogen 54 mg/dL (8-26) Creatinine 1.1 mg/dL (0.7-1.3) Estimated GFR (Cockcroft-Gault) 65.1 Glucose Level 134 mg/dL (70-99) Calcium Level 9.0 mg/dL (8.5-10.1) Phosphorus Level 3.0 mg/dL (2.6-4.7) Magnesium Level 2.1 mg/dL (1.8-2.4) Microbiology 10/07/18 Blood Culture - Final, Complete NO GROWTH AFTER 5 DAYS 10/08/18 - Final, Complete 10/08/18 - Final, Complete 10/08/18 - Final, Complete 10/08/18 - Final, Complete 10/08/18 - Final, Complete 10/08/18 Gram Stain Evaluation - Final, Complete 10/08/18 Sputum Culture - Final, Complete 10/08/18 Sputum Result 1 - Final, Complete 10/07/18 Urine Culture - Final, Complete 10/07/18 Urine Culture Result 1 (ELEN) - Final, Complete 10/07/18 Antimicrobic Susceptibility - Final, Complete Medications Current Medications Sodium Chloride 1,000 ml @ 1,000 mls/hr Q1H IV Last administered on 10/07/18at 11:27; Start 10/07/18 at 10:52; Stop 10/07/18 at 11:51; Status DC Midazolam HCl 100 ml @ 1 mls/hr 1X ONCE IV Last administered on 10/07/18at 11:20; Start 10/07/18 at 11:15; Stop 10/09/18 at 15:55; Status DC Etomidate (Amidate) 20 mg STK-MED ONCE IV ; Start 10/07/18 at 11:13; Stop 10/07/18 at 11:14; Status DC Succinylcholine Chloride (Anectine) 200 mg STK-MED ONCE .ROUTE ; Start 10/07/18 at 11:13; Stop 10/07/18 at 11:14; Status DC Etomidate (Amidate) 20 mg 1X ONCE IV Last administered on 10/07/18at 11:01; Start 10/07/18 at 11:30; Stop 10/07/18 at 11:33; Status DC Succinylcholine Chloride (Anectine) 100 mg 1X ONCE IV Last administered on 10/07/18at 11:01; Start 10/07/18 at 11:30; Stop 10/07/18 at 11:33; Status DC Albuterol Sulfate (Ventolin Neb Soln) 10 mg 1X ONCE CONT NEB ; Start 10/07/18 at 12:00; Stop 10/07/18 at 12:01; Status DC Methylprednisolone Sodium Succinate (SOLU-Medrol 125MG VIAL) 125 mg 1X ONCE IV Last administered on 10/07/18at 11:52; Start 10/07/18 at 12:00; Stop 10/07/18 at 12:01; Status DC Vancomycin HCl 250 ml @ 250 mls/hr 1X ONCE IV Last administered on 10/07/18at 12:27; Start 10/07/18 at 12:00; Stop 10/07/18 at 12:59; Status DC Levofloxacin/ Dextrose 150 ml @ 100 mls/hr 1X ONCE IV Last administered on 10/07/18at 12:28; Start 10/07/18 at 12:00; Stop 10/07/18 at 13:29; Status DC Sodium Chloride 1,000 ml @ 1,000 mls/hr 1X ONCE IV Last administered on 10/07/18at 12:57; Start 10/07/18 at 12:45; Stop 10/07/18 at 13:44; Status DC Sodium Chloride 1,000 ml @ 1,000 mls/hr 1X ONCE IV Last administered on 10/07/18at 12:58; Start 10/07/18 at 12:45; Stop 10/07/18 at 13:44; Status DC Dextrose (Dextrose 50%-Water Syringe) 25 gm 1X ONCE IV Last administered on 10/07/18at 12:59; Start 10/07/18 at 12:45; Stop 10/07/18 at 12:46; Status DC Insulin Human Regular (HumuLIN R VIAL) 10 unit 1X ONCE IV Last administered on 10/07/18at 13:00; Start 10/07/18 at 12:45; Stop 10/07/18 at 12:46; Status DC Sodium Bicarbonate (Sodium Bicarb Adult 8.4% Syr) 50 meq 1X ONCE IV Last administered on 10/07/18at 13:07; Start 10/07/18 at 12:45; Stop 10/07/18 at 12:46; Status DC Sodium Chloride 1,000 ml @ 100 mls/hr Q10H IV ; Start 10/07/18 at 16:00; Stop 10/07/18 at 16:00; Status DC Pantoprazole Sodium (PROTONIX VIAL for IV PUSH) 40 mg DAILYAC IVP Last administered on 10/08/18at 08:25; Start 10/07/18 at 13:30; Stop 10/08/18 at 09:54; Status DC Pantoprazole Sodium (PROTONIX VIAL for IV PUSH) 40 mg 1X ONCE IVP ; Start 10/07/18 at 12:45; Stop 10/07/18 at 12:46; Status UNV Heparin Sodium (Porcine) (Heparin Sodium) 5,000 unit Q8HRS SQ Last administered on 10/23/18at 06:04; Start 10/07/18 at 14:00 Levofloxacin/ Dextrose (Levaquin Per Pharmacy) 1 each PRN DAILY PRN MC SEE COMMENTS; Start 10/07/18 at 12:45; Stop 10/08/18 at 07:33; Status DC Insulin Human Lispro (HumaLOG) 0-9 UNITS TIDWMEALS SQ ; Start 10/07/18 at 17:00; Stop 10/07/18 at 17:00; Status DC Dextrose (Dextrose 50%-Water Syringe) 12.5 gm PRN Q15MIN PRN IV SEE COMMENTS; Start 10/07/18 at 12:45 Albuterol/ Ipratropium (Duoneb) 3 ml RTQID NEB ; Start 10/07/18 at 16:00; Status Cancel Methylprednisolone Sodium Succinate (SOLU-Medrol 40MG VIAL) 40 mg Q8HRS IV Last administered on 10/14/18at 05:48; Start 10/07/18 at 22:00; Stop 10/14/18 at 09:29; Status DC Acetaminophen (Tylenol) 650 mg PRN Q6HRS PRN PEG MILD PAIN / TEMP Last administered on 10/22/18at 20:27; Start 10/07/18 at 12:45 Morphine Sulfate (Morphine Sulfate) 2 mg PRN Q2HR PRN IV PAIN, 1ST CHOICE Last administered on 10/23/18at 06:08; Start 10/07/18 at 12:45 Ondansetron HCl (Zofran) 4 mg PRN Q6HRS PRN IV NAUSEA/VOMITING Last administered on 10/20/18at 00:05; Start 10/07/18 at 12:45 Norepinephrine Bitartrate 250 ml @ 1.875 mls/ hr CONT PRN IV SEE I/O RECORD Last administered on 10/07/18at 14:01; Start 10/07/18 at 14:00 Sodium Chloride 1,000 ml @ 150 mls/hr Q6H40M IV Last administered on 10/08/18at 15:09; Start 10/07/18 at 14:00; Stop 10/08/18 at 13:59; Status DC Calcium Gluconate (Calcium Gluconate) 1,000 mg 1X ONCE IVP ; Start 10/07/18 at 13:30; Stop 10/07/18 at 13:31; Status Cancel Sodium Polystyrene Sulfonate (Kayexalate) 15 gm 1X ONCE PO Last administered on 10/07/18at 14:10; Start 10/07/18 at 13:30; Stop 10/07/18 at 13:31; Status DC Pantoprazole Sodium (PROTONIX VIAL for IV PUSH) 40 mg STK-MED ONCE IVP ; Start 10/07/18 at 12:52; Stop 10/07/18 at 12:55; Status DC Levofloxacin/ Dextrose 150 ml @ 100 mls/hr Q48H IV ; Start 10/09/18 at 12:00; Stop 10/09/18 at 12:00; Status DC Calcium Gluconate 1000 mg/Sodium Chloride 110 ml @ 220 mls/hr 1X ONCE IV Last administered on 10/07/18at 14:23; Start 10/07/18 at 15:00; Stop 10/07/18 at 15:29; Status DC Sodium Chloride 1,000 ml @ 1,000 mls/hr 1X ONCE IV Last administered on 10/07/18at 14:50; Start 10/07/18 at 15:00; Stop 10/07/18 at 15:59; Status DC Sodium Chloride 1,000 ml @ 999 mls/hr 1X ONCE IV ; Start 10/07/18 at 15:00; Stop 10/07/18 at 16:00; Status DC Albuterol Sulfate (Ventolin Neb Soln) 2.5 mg PRN Q2HR PRN NEB [id number]; Start 10/07/18 at 15:00 Albuterol/ Ipratropium (Duoneb) 3 ml RTQID NEB Last administered on 10/21/18at 19:45; Start 10/07/18 at 16:00; Stop 10/22/18 at 06:29; Status DC Insulin Human Lispro (HumaLOG) 0-9 UNITS Q6HRS SQ Last administered on 10/22/18at 18:00; Start 10/07/18 at 18:00 Meropenem 500 mg/ Sodium Chloride 50 ml @ 100 mls/hr Q8HRS IV Last administered on 10/20/18 05:36; Start 10/07/18 at 17:00; Stop 10/20/18 at 09:03; Status DC Midazolam HCl 100 ml @ 5 mls/hr CONT PRN IV SEE I/O RECORD Last administered on 10/18/18at 18:44; Start 10/08/18 at 04:15; Stop 10/23/18 at 07:49; Status DC Lactobacillus Rhamnosus (Culturelle) 1 cap BID PO ; Start 10/08/18 at 09:00; Stop 10/09/18 at 15:58; Status DC Famotidine (Pepcid Vial) 20 mg QHS IVP Last administered on 10/22/18at 20:07; Start 10/08/18 at 21:00 Linezolid/Dextrose 300 ml @ 300 mls/hr Q12HR IV Last administered on 10/09/18at 20:58; Start 10/08/18 at 11:30; Stop 10/10/18 at 07:24; Status DC Doxycycline Hyclate 100 mg/ Dextrose 100 ml @ 50 mls/hr Q12HR IV Last administered on 10/23/18 08:26; Start 10/09/18 at 13:00 Aspirin (Ecotrin) 81 mg DAILYWBKFT PO Last administered on 10/18/18at 08:39; Start 10/10/18 at 08:00; Stop 10/18/18 at 09:01; Status DC Furosemide (Lasix) 40 mg 1X ONCE IVP Last administered on 10/11/18 08:36; Start 10/11/18 at 09:00; Stop 10/11/18 at 09:01; Status DC Lisinopril (Prinivil) 10 mg DAILY PO Last administered on 10/14/18 08:03; Start 10/11/18 at 14:00; Stop 10/15/18 at 09:46; Status DC Furosemide (Lasix) 40 mg DAILY IVP Last administered on 10/18/18at 08:40; Start 10/12/18 at 12:30; Stop 10/18/18 at 14:22; Status DC Amlodipine Besylate (Norvasc) 5 mg DAILY PO Last administered on 10/23/18at 08:25; Start 10/12/18 at 12:30 Hydralazine HCl (Apresoline Inj) 10 mg PRN Q4HRS PRN IVP ELEVATED BP, SEE COMMENTS Last administered on 10/20/18at 04:00; Start 10/12/18 at 11:45 Insulin Glargine (Lantus) 10 units QHS SQ Last administered on 10/22/18at 21:37; Start 10/13/18 at 21:00 Ondansetron HCl (Zofran) 4 mg PRN Q6HRS PRN IV NAUSEA/VOMITING; Start 10/16/18 at 07:00; Stop 10/17/18 at 06:59; Status DC Fentanyl Citrate (Fentanyl 2ml Vial) 25 mcg PRN Q5MIN PRN IV MILD PAIN 1-3; Start 10/16/18 at 07:00; Stop 10/17/18 at 06:59; Status DC Fentanyl Citrate (Fentanyl 2ml Vial) 50 mcg PRN Q5MIN PRN IV MODERATE TO SEVERE PAIN Last administered on 10/17/18at 00:36; Start 10/16/18 at 07:00; Stop 10/17/18 at 06:59; Status DC Morphine Sulfate (Morphine Sulfate) 1 mg PRN Q10MIN PRN IV SEVERE PAIN 7-10; Start 10/16/18 at 07:00; Stop 10/17/18 at 06:59; Status DC Ringer's Solution 1,000 ml @ 30 mls/hr Q24H IV ; Start 10/16/18 at 07:00; Stop 10/16/18 at 18:59; Status DC Lidocaine HCl (Xylocaine-Mpf 1% 2ml Vial) 2 ml PRN 1X PRN ID PRIOR TO IV START; Start 10/16/18 at 07:00; Stop 10/17/18 at 06:59; Status DC Hydromorphone HCl (Dilaudid) 0.5 mg PRN Q10MIN PRN IV SEV PAIN, Second choice; Start 10/16/18 at 07:00; Stop 10/17/18 at 06:59; Status DC Prochlorperazine Edisylate (Compazine) 5 mg PACU PRN PRN IV NAUSEA, MRX1; Start 10/16/18 at 07:00; Stop 10/17/18 at 06:59; Status DC Fentanyl Citrate (Fentanyl 2ml Vial) 50 mcg PRN Q2HR PRN IV PAIN, 2ND CHOICE Last administered on 10/23/18at 06:51; Start 10/14/18 at 00:30 Methylprednisolone Sodium Succinate (SOLU-Medrol 40MG VIAL) 40 mg Q12HR IV Last administered on 10/15/18at 08:28; Start 10/14/18 at 21:00; Stop 10/15/18 at 09:16; Status DC Methylprednisolone Sodium Succinate (SOLU-Medrol 40MG VIAL) 40 mg DAILY IV Last administered on 10/20/18at 08:05; Start 10/16/18 at 09:00; Stop 10/20/18 at 13:10; Status DC Sodium Chloride 500 ml @ 500 mls/hr 1X ONCE IV Last administered on 10/15/18at 09:59; Start 10/15/18 at 09:30; Stop 10/15/18 at 10:29; Status DC Sodium Chloride 1,000 ml @ 75 mls/hr [id number] IV Last administered on 10/17/18at 05:19; Start 10/15/18 at 11:45; Stop 10/17/18 at 17:11; Status DC Bisacodyl (Dulcolax Supp) 10 mg PRN DAILY PRN [place] CONSTIPATION Last administered on 10/19/18at 08:06; Start 10/15/18 at 13:30 Midazolam HCl (Versed) 2 mg STK-MED ONCE .ROUTE ; Start 10/16/18 at 12:36; Stop 10/16/18 at 12:37; Status DC Fentanyl Citrate (Fentanyl 2ml Vial) 100 mcg STK-MED ONCE .ROUTE ; Start 10/16/18 at 12:36; Stop 10/16/18 at 12:37; Status DC Rocuronium Celeste (Zemuron) 50 mg STK-MED ONCE .ROUTE ; Start 10/16/18 at 12:36; Stop 10/16/18 at 12:37; Status DC Neostigmine Methylsulfate (Neostigmine Methylsulfate) 5 mg STK-MED ONCE .ROUTE ; Start 10/16/18 at 13:27; Stop 10/16/18 at 13:28; Status DC Glycopyrrolate (Robinul) 1 mg STK-MED ONCE .ROUTE ; Start 10/16/18 at 13:27; Stop 10/16/18 at 13:28; Status DC Sevoflurane (Ultane) 30 ml STK-MED ONCE IH ; Start 10/16/18 at 13:36; Stop 10/16/18 at 13:37; Status DC Ringer's Solution 1,000 ml @ 50 mls/hr Q20H IV ; Start 10/17/18 at 07:00; Stop 10/17/18 at 18:59; Status DC Atorvastatin Calcium (Lipitor) 10 mg QHS PO Last administered on 10/22/18at 20:07; Start 10/17/18 at 21:00 Sodium Chloride 1,000 ml @ 75 mls/hr [id number] IV Last administered on 10/18/18at 08:48; Start 10/17/18 at 17:15; Stop 10/18/18 at 14:22; Status DC Aspirin (Children'S Aspirin) 81 mg DAILYWBKFT PO Last administered on 10/23/18at 08:25; Start 10/19/18 at 08:00 Furosemide (Lasix) 40 mg DAILY PO Last administered on 10/23/18at 08:25; Start 10/19/18 at 09:00 Metoclopramide HCl (Reglan Vial) 5 mg QIDACHS IV Last administered on 10/20/18at 11:09; Start 10/19/18 at 11:30; Stop 10/20/18 at 12:42; Status DC Alteplase, Recombinant (Cathflo For Central Catheter Clearance) 1 mg 1X ONCE INT CAT Last administered on 10/19/18at 17:05; Start 10/19/18 at 16:45; Stop 10/19/18 at 16:48; Status DC Alteplase, Recombinant (Cathflo For Central Catheter Clearance) 1 mg 1X ONCE INT CAT Last administered on 10/19/18at 17:05; Start 10/19/18 at 16:45; Stop 10/19/18 at 16:48; Status DC Fluconazole (Diflucan) 200 mg DAILY PO Last administered on 10/23/18at 08:25; Start 10/20/18 at 11:00 Info (Tpn Per Pharmacy) 1 each PRN DAILY PRN MC SEE COMMENTS Last administered on 10/22/18at 12:16; Start 10/20/18 at 10:00; Stop 10/22/18 at 21:59; Status DC Lorazepam (Ativan Inj) 1 mg PRN Q6HRS PRN IV ANXIETY / AGITATION Last administered on 10/23/18at 03:29; Start 10/20/18 at 10:30 Sodium Chloride 20 meq/Potassium Acetate 50 meq/ Potassium Phosphate 13.6 mmol/Magnesium Sulfate 10 meq/ Calcium Gluconate 10 meq/ Multivitamins 10 ml/Chromium/ Copper/Manganese/ Seleni/Zn 1 ml/ Total Parenteral Nutrition/Amino Acids/Dextrose/ Fat Emulsion Intravenous 1,512 ml @ 63 mls/hr TPN CONT IV Last administered on 10/20/18at 21:59; Start 10/20/18 at 22:00; Stop 10/21/18 at 21:59; Status DC Metoclopramide HCl (Reglan Vial) 10 mg QIDACHS IV Last administered on 10/23/18at 08:24; Start 10/20/18 at 16:30 Dexmedetomidine HCl 200 mcg/ Sodium Chloride 50 ml @ 0 mls/hr CONT PRN IV PER PROTOCOL; Start 10/20/18 at 15:15; Status UNV Sodium Chloride 500 ml @ 500 mls/hr 1X PRN PRN IV SEE COMMENTS; Start 10/20/18 at 15:15; Status UNV Atropine Sulfate (ATROPINE 0.5mg SYRINGE) 0.5 mg PRN Q5MIN PRN IV SEE COMMENTS; Start 10/20/18 at 15:15; Status UNV Sodium Chloride 10 meq/Potassium Acetate 50 meq/ Potassium Phosphate 15 mmol/ Magnesium Sulfate 8 meq/Calcium Gluconate 10 meq/ Multivitamins 10 ml/Chromium/ Copper/Manganese/ Seleni/Zn 1 ml/ Total Parenteral Nutrition/Amino Acids/Dextrose/ Fat Emulsion Intravenous 1,512 ml @ 63 mls/hr TPN CONT IV Last administered on 10/21/18at 21:35; Start 10/21/18 at 22:00; Stop 10/22/18 at 21:59; Status DC Iohexol (Omnipaque 300 Mg/ml) 75 ml 1X ONCE IV Last administered on 10/21/18at 20:54; Start 10/21/18 at 20:00; Stop 10/21/18 at 20:01; Status DC Iohexol (Omnipaque 240 Mg/ml) 30 ml 1X ONCE PO Last administered on 10/21/18at 19:35; Start 10/21/18 at 20:00; Stop 10/21/18 at 20:01; Status DC Info (CONTRAST GIVEN -- Rx MONITORING) 1 each PRN DAILY PRN MC SEE COMMENTS; Start 10/21/18 at 20:00; Stop 10/23/18 at 19:59 Albuterol/ Ipratropium (Duoneb) 3 ml Q4HRS NEB Last administered on 10/23/18at 07:10; Start 10/22/18 at 08:00 Budesonide (Pulmicort) 0.5 mg RTBID NEB Last administered on 10/23/18at 07:10; Start 10/22/18 at 08:00 Active Scripts Active Reported Proair Hfa (Albuterol Sulfate) 8.5 Gm Hfa.aer.ad 1 Puff INH PRN Q6HRS PRN Oxazepam 30 Mg Capsule 30 Mg PO QHS Vitals/I & O Vital Sign - Last 24 Hours 10/22/18 10/22/18 10/22/18 10/22/18 09:00 09:30 10:00 10:37 Pulse 78 70 83 Resp 21 21 B/P (MAP) 140/65 (90) 117/55 (75) 117/55 Pulse Ox 99 99 98 O2 Delivery Ventilator Ventilator Ventilator 10/22/18 10/22/18 10/22/18 10/22/18 10:38 11:00 11:19 11:42 Pulse 92 Resp 28 26 B/P (MAP) 140/66 (90) Pulse Ox 98 100 99 O2 Delivery Ventilator Ventilator Ventilator Ventilator 10/22/18 10/22/18 10/22/18 10/22/18 12:00 12:00 13:00 14:00 Pulse 94 74 78 Resp 29 9 14 B/P (MAP) 141/59 (86) 135/53 (80) 137/47 (77) Pulse Ox 100 99 100 O2 Delivery Mechanical Ventilator Ventilator Ventilator Ventilator 10/22/18 10/22/18 10/22/18 10/22/18 14:30 14:48 15:00 15:21 Temp 99.1 99.1 Pulse 104 Resp 30 37 B/P (MAP) 154/70 (98) Pulse Ox 100 96 99 O2 Delivery Ventilator Ventilator Ventilator Ventilator 10/22/18 10/22/18 10/22/18 10/22/18 16:00 16:00 16:48 17:00 Pulse 90 87 Resp 34 29 22 B/P (MAP) 136/54 (81) 93/51 (65) Pulse Ox 98 99 100 O2 Delivery Mechanical Ventilator Ventilator Ventilator 10/22/18 10/22/18 10/22/18 10/22/18 17:56 18:00 18:26 19:00 Pulse 88 102 Resp 29 28 28 24 B/P (MAP) 142/63 (89) 160/78 (105) Pulse Ox 100 100 100 98 O2 Delivery Ventilator Ventilator Ventilator 10/22/18 10/22/18 10/22/18 10/22/18 19:35 19:55 19:56 20:00 Temp 99.3 99.3 Pulse 98 Resp 24 B/P (MAP) 168/87 (114) Pulse Ox 99 99 100 O2 Delivery Mechanical Ventilator Ventilator Ventilator Ventilator 10/22/18 10/22/18 10/22/18 10/22/18 21:00 22:00 23:00 23:30 Temp 99.2 99.2 Pulse 86 80 72 Resp 25 23 21 B/P (MAP) 172/65 (100) 126/59 (81) 108/53 (71) Pulse Ox 99 98 100 O2 Delivery Ventilator Ventilator Ventilator Mechanical Ventilator 10/22/18 10/23/18 10/23/18 10/23/18 23:30 00:00 01:07 02:04 Pulse 70 64 Resp 23 22 B/P (MAP) 133/65 (87) 105/55 (72) Pulse Ox 100 99 100 100 O2 Delivery Ventilator Ventilator Ventilator Ventilator 10/23/18 10/23/18 10/23/18 10/23/18 02:07 03:00 03:42 04:00 Temp 99.6 99.6 Pulse 70 66 73 Resp 21 22 24 B/P (MAP) 131/63 (85) 142/52 (82) 175/79 (111) Pulse Ox 100 100 100 O2 Delivery Ventilator Ventilator Mechanical Ventilator Ventilator 10/23/18 10/23/18 10/23/18 10/23/18 04:21 05:12 05:52 06:00 Pulse 67 94 Resp 21 26 B/P (MAP) 109/48 (68) 188/86 (120) Pulse Ox 100 100 100 99 O2 Delivery Ventilator Ventilator Ventilator Ventilator 10/23/18 10/23/18 10/23/18 10/23/18 07:00 07:12 07:21 08:00 Temp 98.8 98.8 Pulse 83 83 Resp 22 22 22 B/P (MAP) 94/47 (63) 164/61 (95) Pulse Ox 100 100 100 100 O2 Delivery Ventilator Ventilator Ventilator Ventilator 10/23/18 10/23/18 10/23/18 08:00 08:25 08:53 Pulse 83 B/P (MAP) 164/61 Pulse Ox 100 O2 Delivery Mechanical Ventilator Ventilator Intake and Output 10/22/18 10/22/18 10/23/18 15:00 23:00 07:00 Intake Total 300 ml 2238 ml 340 ml Output Total 950 ml 935 ml 465 ml Balance -650 ml 1303 ml -125 ml OSMANI STEVENS MD October 23, 2018 09:05
[2018-10-23] MEDS ORDERED: LORazepam 1 MG TABLET PEG PRN (09:15)
--- NOTE | 2018-10-23 11:12 | PDOC ---
G I PROGRESS NOTE Subjective Arouses, falls back to sleep. Objective Tolerating tube feedings. Physical Exam Lungs clear anteriorly. RRR Abdomen soft, not distended. PEG site looks good. Review of Relevant I have reviewed the following items akbar (where applicable) has been applied. Labs Laboratory Tests Test 10/21/18 11:32 10/21/18 16:56 10/21/18 21:52 10/22/18 00:16 Glucose (Fingerstick) 206 mg/dL (70-99) 155 mg/dL (70-99) 106 mg/dL (70-99) 140 mg/dL (70-99) Test 10/22/18 06:10 10/22/18 06:21 10/22/18 13:48 10/22/18 17:58 White Blood Count 12.2 x10^3/uL (4.0-11.0) Red Blood Count 3.99 x10^6/uL (4.30-5.70) Hemoglobin 11.9 g/dL (13.0-17.5) Hematocrit 37.0 % (39.0-53.0) Mean Corpuscular Volume 93 fL (79-100) Mean Corpuscular Hemoglobin 30 pg (25-35) Mean Corpuscular Hemoglobin Concent 32 g/dL (31-37) Red Cell Distribution Width 16.4 % (11.5-14.5) Platelet Count 175 x10^3/uL (140-400) Neutrophils (%) (Auto) 81 % (31-73) Lymphocytes (%) (Auto) 10 % (24-48) Monocytes (%) (Auto) 6 % (0-9) Eosinophils (%) (Auto) 3 % (0-3) Basophils (%) (Auto) 0 % (0-3) Neutrophils # (Auto) 9.9 x10^3uL (1.8-7.7) Lymphocytes # (Auto) 1.2 x10^3/uL (1.0-4.8) Monocytes # (Auto) 0.8 x10^3/uL (0.0-1.1) Eosinophils # (Auto) 0.3 x10^3/uL (0.0-0.7) Basophils # (Auto) 0.0 x10^3/uL (0.0-0.2) Sodium Level 142 mmol/L (136-145) Potassium Level 4.6 mmol/L (3.5-5.1) Chloride Level 105 mmol/L (98-107) Carbon Dioxide Level 33 mmol/L (21-32) Anion Gap 4 (6-14) Blood Urea Nitrogen 47 mg/dL (8-26) Creatinine 1.1 mg/dL (0.7-1.3) Estimated GFR (Cockcroft-Gault) 65.1 Glucose Level 196 mg/dL (70-99) Calcium Level 8.6 mg/dL (8.5-10.1) Phosphorus Level 2.7 mg/dL (2.6-4.7) Magnesium Level 2.1 mg/dL (1.8-2.4) Glucose (Fingerstick) 169 mg/dL (70-99) 176 mg/dL (70-99) 176 mg/dL (70-99) Test 10/22/18 21:35 10/23/18 00:00 10/23/18 05:59 10/23/18 06:40 Glucose (Fingerstick) 165 mg/dL (70-99) 155 mg/dL (70-99) 142 mg/dL (70-99) Sodium Level 142 mmol/L (136-145) Potassium Level 4.8 mmol/L (3.5-5.1) Chloride Level 104 mmol/L (98-107) Carbon Dioxide Level 30 mmol/L (21-32) Anion Gap 8 (6-14) Blood Urea Nitrogen 54 mg/dL (8-26) Creatinine 1.1 mg/dL (0.7-1.3) Estimated GFR (Cockcroft-Gault) 65.1 Glucose Level 134 mg/dL (70-99) Calcium Level 9.0 mg/dL (8.5-10.1) Phosphorus Level 3.0 mg/dL (2.6-4.7) Magnesium Level 2.1 mg/dL (1.8-2.4) Test 10/23/18 08:45 White Blood Count 10.0 x10^3/uL (4.0-11.0) Red Blood Count 3.53 x10^6/uL (4.30-5.70) Hemoglobin 10.3 g/dL (13.0-17.5) Hematocrit 33.0 % (39.0-53.0) Mean Corpuscular Volume 93 fL (79-100) Mean Corpuscular Hemoglobin 29 pg (25-35) Mean Corpuscular Hemoglobin Concent 31 g/dL (31-37) Red Cell Distribution Width 16.7 % (11.5-14.5) Platelet Count 132 x10^3/uL (140-400) Neutrophils (%) (Auto) 80 % (31-73) Lymphocytes (%) (Auto) 10 % (24-48) Monocytes (%) (Auto) 6 % (0-9) Eosinophils (%) (Auto) 4 % (0-3) Basophils (%) (Auto) 0 % (0-3) Neutrophils # (Auto) 8.0 x10^3uL (1.8-7.7) Lymphocytes # (Auto) 1.0 x10^3/uL (1.0-4.8) Monocytes # (Auto) 0.5 x10^3/uL (0.0-1.1) Eosinophils # (Auto) 0.4 x10^3/uL (0.0-0.7) Basophils # (Auto) 0.0 x10^3/uL (0.0-0.2) Laboratory Tests Test 10/22/18 13:48 10/22/18 17:58 10/22/18 21:35 10/23/18 00:00 Glucose (Fingerstick) 176 mg/dL (70-99) 176 mg/dL (70-99) 165 mg/dL (70-99) 155 mg/dL (70-99) Test 10/23/18 05:59 10/23/18 06:40 10/23/18 08:45 Glucose (Fingerstick) 142 mg/dL (70-99) Sodium Level 142 mmol/L (136-145) Potassium Level 4.8 mmol/L (3.5-5.1) Chloride Level 104 mmol/L (98-107) Carbon Dioxide Level 30 mmol/L (21-32) Anion Gap 8 (6-14) Blood Urea Nitrogen 54 mg/dL (8-26) Creatinine 1.1 mg/dL (0.7-1.3) Estimated GFR (Cockcroft-Gault) 65.1 Glucose Level 134 mg/dL (70-99) Calcium Level 9.0 mg/dL (8.5-10.1) Phosphorus Level 3.0 mg/dL (2.6-4.7) Magnesium Level 2.1 mg/dL (1.8-2.4) White Blood Count 10.0 x10^3/uL (4.0-11.0) Red Blood Count 3.53 x10^6/uL (4.30-5.70) Hemoglobin 10.3 g/dL (13.0-17.5) Hematocrit 33.0 % (39.0-53.0) Mean Corpuscular Volume 93 fL (79-100) Mean Corpuscular Hemoglobin 29 pg (25-35) Mean Corpuscular Hemoglobin Concent 31 g/dL (31-37) Red Cell Distribution Width 16.7 % (11.5-14.5) Platelet Count 132 x10^3/uL (140-400) Neutrophils (%) (Auto) 80 % (31-73) Lymphocytes (%) (Auto) 10 % (24-48) Monocytes (%) (Auto) 6 % (0-9) Eosinophils (%) (Auto) 4 % (0-3) Basophils (%) (Auto) 0 % (0-3) Neutrophils # (Auto) 8.0 x10^3uL (1.8-7.7) Lymphocytes # (Auto) 1.0 x10^3/uL (1.0-4.8) Monocytes # (Auto) 0.5 x10^3/uL (0.0-1.1) Eosinophils # (Auto) 0.4 x10^3/uL (0.0-0.7) Basophils # (Auto) 0.0 x10^3/uL (0.0-0.2) Microbiology 10/07/18 Blood Culture - Final, Complete NO GROWTH AFTER 5 DAYS 10/08/18 - Final, Complete 10/08/18 - Final, Complete 10/08/18 - Final, Complete 10/08/18 - Final, Complete 10/08/18 - Final, Complete 10/08/18 Gram Stain Evaluation - Final, Complete 10/08/18 Sputum Culture - Final, Complete 10/08/18 Sputum Result 1 - Final, Complete 10/07/18 Urine Culture - Final, Complete 10/07/18 Urine Culture Result 1 (ELEN) - Final, Complete 10/07/18 Antimicrobic Susceptibility - Final, Complete Vitals/I & O Vital Sign - Last 24 Hours 10/22/18 10/22/18 10/22/18 10/22/18 11:19 11:42 12:00 12:00 Pulse 94 Resp 29 B/P (MAP) 141/59 (86) Pulse Ox 99 100 O2 Delivery Ventilator Ventilator Mechanical Ventilator Ventilator 10/22/18 10/22/18 10/22/18 10/22/18 13:00 14:00 14:30 14:48 Pulse 74 78 Resp 9 14 30 B/P (MAP) 135/53 (80) 137/47 (77) Pulse Ox 99 100 100 O2 Delivery Ventilator Ventilator Ventilator Ventilator 10/22/18 10/22/18 10/22/18 10/22/18 15:00 15:21 16:00 16:00 Temp 99.1 99.1 Pulse 104 90 Resp 37 34 B/P (MAP) 154/70 (98) 136/54 (81) Pulse Ox 96 99 98 O2 Delivery Ventilator Ventilator Mechanical Ventilator Ventilator 10/22/18 10/22/18 10/22/18 10/22/18 16:48 17:00 17:56 18:00 Pulse 87 88 Resp 29 22 29 28 B/P (MAP) 93/51 (65) 142/63 (89) Pulse Ox 99 100 100 100 O2 Delivery Ventilator Ventilator 10/22/18 10/22/18 10/22/18 10/22/18 18:26 19:00 19:35 19:55 Pulse 102 Resp 28 24 B/P (MAP) 160/78 (105) Pulse Ox 100 98 99 O2 Delivery Ventilator Ventilator Mechanical Ventilator Ventilator 10/22/18 10/22/18 10/22/18 10/22/18 19:56 20:00 21:00 22:00 Temp 99.3 99.3 Pulse 98 86 80 Resp 24 25 23 B/P (MAP) 168/87 (114) 172/65 (100) 126/59 (81) Pulse Ox 99 100 99 98 O2 Delivery Ventilator Ventilator Ventilator Ventilator 10/22/18 10/22/18 10/22/18 10/23/18 23:00 23:30 23:30 00:00 Temp 99.2 99.2 Pulse 72 70 Resp 21 23 B/P (MAP) 108/53 (71) 133/65 (87) Pulse Ox 100 100 99 O2 Delivery Ventilator Mechanical Ventilator Ventilator Ventilator 10/23/18 10/23/18 10/23/18 10/23/18 01:07 02:04 02:07 03:00 Pulse 64 70 66 Resp 22 21 22 B/P (MAP) 105/55 (72) 131/63 (85) 142/52 (82) Pulse Ox 100 100 100 100 O2 Delivery Ventilator Ventilator Ventilator Ventilator 10/23/18 10/23/18 10/23/18 10/23/18 03:42 04:00 04:21 05:12 Temp 99.6 99.6 Pulse 73 67 Resp 24 21 B/P (MAP) 175/79 (111) 109/48 (68) Pulse Ox 100 100 100 O2 Delivery Mechanical Ventilator Ventilator Ventilator Ventilator 10/23/18 10/23/18 10/23/18 10/23/18 05:52 06:00 07:00 07:12 Temp 98.8 98.8 Pulse 94 83 Resp 26 22 B/P (MAP) 188/86 (120) 94/47 (63) Pulse Ox 100 99 100 100 O2 Delivery Ventilator Ventilator Ventilator Ventilator 10/23/18 10/23/18 10/23/18 10/23/18 07:21 08:00 08:00 08:25 Pulse 83 83 Resp 22 22 B/P (MAP) 164/61 (95) 164/61 Pulse Ox 100 100 O2 Delivery Ventilator Ventilator Mechanical Ventilator 10/23/18 10/23/18 08:53 09:00 Pulse 92 Resp 28 B/P (MAP) 160/72 (101) Pulse Ox 100 100 O2 Delivery Ventilator Ventilator Intake and Output 10/22/18 10/22/18 10/23/18 15:00 23:00 07:00 Intake Total 300 ml 2238 ml 340 ml Output Total 950 ml 935 ml 465 ml Balance -650 ml 1303 ml -125 ml Problem List Problems Medical Problems: (1) Acute respiratory distress Status: Acute (2) CAP (community acquired pneumonia) Status: Acute (3) CHF (congestive heart failure) Status: Acute (4) Elevated liver function tests Status: Acute (5) Elevated troponin I level Status: Acute (6) Hyperkalemia Status: Acute (7) Renal insufficiency Status: Acute (8) Sepsis Status: Acute (9) Unresponsiveness Status: Acute (10) Urinary tract infection Status: Acute Assessment S/p PEG, tolerating TF now on metoclopramide. Plan of Care: Continue current Tx, Mgmt GLORIA NAVA MD October 23, 2018 11:12
--- NOTE | 2018-10-23 14:01 | PDOC ---
PULMONARY PROGRESS NOTES Subjective PT A/A FOLLOWS COMMANDS S/P TRACH 10/16 Vitals Vital Signs Date Time Temp Pulse Resp B/P (MAP) Pulse Ox O2 Delivery O2 Flow Rate FiO2 10/23/18 13:49 97 Ventilator 10/23/18 10:00 91 28 79/71 (74) 10/23/18 07:00 98.8 98.8 General: Alert HEENT: Other (nc at perrl nose throat clear, neck no thyromegaly no lad) Lungs: Wheezing, Crackles Cardiovascular: S1, S2 Abdomen: Soft, Non-tender, Other (no mass) Neuro Exam: Alert Extremities: Other (trace edema) Skin: Warm Labs Laboratory Tests Test 10/21/18 16:56 10/21/18 21:52 10/22/18 00:16 10/22/18 06:10 Glucose (Fingerstick) 155 mg/dL (70-99) 106 mg/dL (70-99) 140 mg/dL (70-99) White Blood Count 12.2 x10^3/uL (4.0-11.0) Red Blood Count 3.99 x10^6/uL (4.30-5.70) Hemoglobin 11.9 g/dL (13.0-17.5) Hematocrit 37.0 % (39.0-53.0) Mean Corpuscular Volume 93 fL (79-100) Mean Corpuscular Hemoglobin 30 pg (25-35) Mean Corpuscular Hemoglobin Concent 32 g/dL (31-37) Red Cell Distribution Width 16.4 % (11.5-14.5) Platelet Count 175 x10^3/uL (140-400) Neutrophils (%) (Auto) 81 % (31-73) Lymphocytes (%) (Auto) 10 % (24-48) Monocytes (%) (Auto) 6 % (0-9) Eosinophils (%) (Auto) 3 % (0-3) Basophils (%) (Auto) 0 % (0-3) Neutrophils # (Auto) 9.9 x10^3uL (1.8-7.7) Lymphocytes # (Auto) 1.2 x10^3/uL (1.0-4.8) Monocytes # (Auto) 0.8 x10^3/uL (0.0-1.1) Eosinophils # (Auto) 0.3 x10^3/uL (0.0-0.7) Basophils # (Auto) 0.0 x10^3/uL (0.0-0.2) Sodium Level 142 mmol/L (136-145) Potassium Level 4.6 mmol/L (3.5-5.1) Chloride Level 105 mmol/L (98-107) Carbon Dioxide Level 33 mmol/L (21-32) Anion Gap 4 (6-14) Blood Urea Nitrogen 47 mg/dL (8-26) Creatinine 1.1 mg/dL (0.7-1.3) Estimated GFR (Cockcroft-Gault) 65.1 Glucose Level 196 mg/dL (70-99) Calcium Level 8.6 mg/dL (8.5-10.1) Phosphorus Level 2.7 mg/dL (2.6-4.7) Magnesium Level 2.1 mg/dL (1.8-2.4) Test 10/22/18 06:21 10/22/18 13:48 10/22/18 17:58 10/22/18 21:35 Glucose (Fingerstick) 169 mg/dL (70-99) 176 mg/dL (70-99) 176 mg/dL (70-99) 165 mg/dL (70-99) Test 10/23/18 00:00 10/23/18 05:59 10/23/18 06:40 10/23/18 08:45 Glucose (Fingerstick) 155 mg/dL (70-99) 142 mg/dL (70-99) Sodium Level 142 mmol/L (136-145) Potassium Level 4.8 mmol/L (3.5-5.1) Chloride Level 104 mmol/L (98-107) Carbon Dioxide Level 30 mmol/L (21-32) Anion Gap 8 (6-14) Blood Urea Nitrogen 54 mg/dL (8-26) Creatinine 1.1 mg/dL (0.7-1.3) Estimated GFR (Cockcroft-Gault) 65.1 Glucose Level 134 mg/dL (70-99) Calcium Level 9.0 mg/dL (8.5-10.1) Phosphorus Level 3.0 mg/dL (2.6-4.7) Magnesium Level 2.1 mg/dL (1.8-2.4) White Blood Count 10.0 x10^3/uL (4.0-11.0) Red Blood Count 3.53 x10^6/uL (4.30-5.70) Hemoglobin 10.3 g/dL (13.0-17.5) Hematocrit 33.0 % (39.0-53.0) Mean Corpuscular Volume 93 fL (79-100) Mean Corpuscular Hemoglobin 29 pg (25-35) Mean Corpuscular Hemoglobin Concent 31 g/dL (31-37) Red Cell Distribution Width 16.7 % (11.5-14.5) Platelet Count 132 x10^3/uL (140-400) Neutrophils (%) (Auto) 80 % (31-73) Lymphocytes (%) (Auto) 10 % (24-48) Monocytes (%) (Auto) 6 % (0-9) Eosinophils (%) (Auto) 4 % (0-3) Basophils (%) (Auto) 0 % (0-3) Neutrophils # (Auto) 8.0 x10^3uL (1.8-7.7) Lymphocytes # (Auto) 1.0 x10^3/uL (1.0-4.8) Monocytes # (Auto) 0.5 x10^3/uL (0.0-1.1) Eosinophils # (Auto) 0.4 x10^3/uL (0.0-0.7) Basophils # (Auto) 0.0 x10^3/uL (0.0-0.2) Laboratory Tests Test 10/22/18 17:58 10/22/18 21:35 10/23/18 00:00 10/23/18 05:59 Glucose (Fingerstick) 176 mg/dL (70-99) 165 mg/dL (70-99) 155 mg/dL (70-99) 142 mg/dL (70-99) Test 10/23/18 06:40 10/23/18 08:45 Sodium Level 142 mmol/L (136-145) Potassium Level 4.8 mmol/L (3.5-5.1) Chloride Level 104 mmol/L (98-107) Carbon Dioxide Level 30 mmol/L (21-32) Anion Gap 8 (6-14) Blood Urea Nitrogen 54 mg/dL (8-26) Creatinine 1.1 mg/dL (0.7-1.3) Estimated GFR (Cockcroft-Gault) 65.1 Glucose Level 134 mg/dL (70-99) Calcium Level 9.0 mg/dL (8.5-10.1) Phosphorus Level 3.0 mg/dL (2.6-4.7) Magnesium Level 2.1 mg/dL (1.8-2.4) White Blood Count 10.0 x10^3/uL (4.0-11.0) Red Blood Count 3.53 x10^6/uL (4.30-5.70) Hemoglobin 10.3 g/dL (13.0-17.5) Hematocrit 33.0 % (39.0-53.0) Mean Corpuscular Volume 93 fL (79-100) Mean Corpuscular Hemoglobin 29 pg (25-35) Mean Corpuscular Hemoglobin Concent 31 g/dL (31-37) Red Cell Distribution Width 16.7 % (11.5-14.5) Platelet Count 132 x10^3/uL (140-400) Neutrophils (%) (Auto) 80 % (31-73) Lymphocytes (%) (Auto) 10 % (24-48) Monocytes (%) (Auto) 6 % (0-9) Eosinophils (%) (Auto) 4 % (0-3) Basophils (%) (Auto) 0 % (0-3) Neutrophils # (Auto) 8.0 x10^3uL (1.8-7.7) Lymphocytes # (Auto) 1.0 x10^3/uL (1.0-4.8) Monocytes # (Auto) 0.5 x10^3/uL (0.0-1.1) Eosinophils # (Auto) 0.4 x10^3/uL (0.0-0.7) Basophils # (Auto) 0.0 x10^3/uL (0.0-0.2) Medications Active Scripts Medications Dose Route/Sig Max Daily Dose Days Date Category Proair Hfa (Albuterol Sulfate) 8.5 Gm Hfa.aer.ad 1 Puff INH PRN Q6HRS PRN 10/07/18 Reported Oxazepam 30 Mg Capsule 30 Mg PO QHS 10/07/18 Reported Comments cxr reviewed, marisa mcdaniel effusion atelectasis Impression . 1. Acute on chronic hypoxemic/ hypercapnic respiratory failure, multifactorial. 2. Acute exacerbation of chronic obstructive pulmonary disease. suspect severe COPD 3. Abnormal x-ray improved. 4. Gram-negative, possible gram-positive pneumonia. 5. No history given of diabetes, hypertension or renal failure. 6. History of alcohol intake, discontinued approximately 4 years ago. 7. Possible sepsis POA, improved 8. Positive mycoplasma serology 9. EF 40%, acute sys chf 10. S/P TRACH 10/16 Plan . FAILED WEANING WILL CONTINUE PS DURING DAY NOT READY FOR TRACH SHIELD TITRATE PS TO MAINTAIN VT 500 CC D/W RT PT OT CXR IN AM WILL CONTINUE SUPPORT FOLLOW CARD REC CONTINUE ANTIBX PER ID DIURESE, MONITOR LABS DVT GI PROPH, pepcid, heparin sq ENTERAL FEEDING CCT 30 MIN D/W RT KRISTI DOMINGUEZ MD October 23, 2018 14:01
[2018-10-23] MEDS: ATORVASTATIN CALCIUM 10 MG TABLET. PO SCH (23:28)
[2018-10-23] MEDS: FAMOTIDINE 20 MG/2 ML VIAL IVP SCH (23:28)
[2018-10-23] MEDS: INSULIN GLARGINE 300 UNITS/3 ML INSULN.PEN. SQ SCH (23:42)
[2018-10-24] VITALS (26 sets, daily range): BP systolic 85–203; BP diastolic 45–104
[2018-10-24] MEDS: hydrALAZINE 20 MG/ML VIAL. IVP PRN (00:36)
[2018-10-24] MEDS: MORPHINE SULFATE 2 MG/ML VIAL. IV PRN ×4 (02:19→20:19)
[2018-10-24] MEDS: IPRATRPIUM/ALBUTEROL 0.5/2.5MG 3 ML NEBU. NEB SCH ×5 (04:20→21:03)
[2018-10-24] MEDS: INSULIN LISPRO 300 UNITS/3 ML INSULN.PEN. SQ SCH ×3 (06:00→17:50)
[2018-10-24 06:19] LABS: BASO # 0.1 x10^3/uL (0.0-0.2); BASO % 1 % (0-3); EOS # 0.4 x10^3/uL (0.0-0.7); EOS % 4 % (0-3); HEMATOCRIT 30.2 % (39.0-53.0); HEMOGLOBIN 9.7 g/dL (13.0-17.5); LYMPH # 0.9 x10^3/uL (1.0-4.8); LYMPH % 10 % (24-48); MEAN CORPUSCULAR HEMOGLOBIN 30 pg (25-35); MEAN CORPUSCULAR HGB CONC 32 g/dL (31-37); MEAN CORPUSCULAR VOLUME 92 fL (79-100); MONO # 0.4 x10^3/uL (0.0-1.1); MONO % 4 % (0-9); NEUT # 7.7 x10^3uL (1.8-7.7); NEUT % 81 % (31-73); PLATELET COUNT 127 x10^3/uL (140-400); RED BLOOD COUNT 3.28 x10^6/uL (4.30-5.70); RED CELL DISTRIBUTION WIDTH 16.7 % (11.5-14.5); WHITE BLOOD COUNT 9.5 x10^3/uL (4.0-11.0)
[2018-10-24] MEDS: HEPARIN for SUB-Q USE 5,000 UNIT/ML VIAL. SQ SCH ×3 (06:50→20:55)
--- NOTE | 2018-10-24 06:55 | RAD ---
Indication:Respiratory failure TECHNIQUE:Portable AP chest X-ray COMPARISON:10/23/2018 FINDINGS: Tracheostomy tube. Heart is normal in size. Stable position of right-sided PICC line. Mild prominent interstitial opacities. No focal consolidation. No pneumothorax or pleural effusion. Visualized bony thorax within normal limits. IMPRESSION: Limited suggests atypical/viral infection/bronchitis. No significant interval change. Electronically signed by: Lion Powers DO (10/24/2018 6:52 AM) [facility]
[2018-10-24] MEDS: METOCLOPRAMIDE HCL 10 MG/2 ML VIAL. IV SCH ×5 (07:09→20:19)
--- NOTE | 2018-10-24 07:34 | PDOC ---
Infectious Disease Note Subjective: Subjective pt is awake,doing ok per rn has been agitated intermitently ROS: ROS no f/c/n/v/d Vital Signs: Vital Signs Vital Signs Date Time Temp Pulse Resp B/P (MAP) Pulse Ox O2 Delivery O2 Flow Rate FiO2 10/24/18 07:00 98.1 73 22 124/51 (75) 100 Ventilator 98.1 Physical Exam: PHYSICAL EXAM GENERAL: awake, alert.comfortable HENT: normal conj. PERRL. Neck : trach, + LUNGS: Clear CV: S1 S2 irregular ABD: Obese, soft, NT, BS present has a PEG feeding running, PEG in place : Jeffers in place EXT: 1 + edema lower extremities, bilaterally. No cyanosis. SKIN: warm without rash CHIEF PILOT: awake, no focal deficit Medications: Inpatient Meds: Current Medications Medications (Trade) Dose Ordered Sig/Eric Start Time Stop Time Status Last Admin Dose Admin Acetaminophen (Tylenol) 650 mg PRN Q6HRS PRN 10/07/18 12:45 10/22/18 20:27 650 MG Acetaminophen/ Hydrocodone Bitart (Lortab 5/325) 1 tab PRN Q6HRS PRN 10/23/18 09:15 Albuterol Sulfate (Ventolin Neb Soln) 2.5 mg PRN Q2HR PRN 10/07/18 15:00 Albuterol/ Ipratropium (Duoneb) 3 ml Q4HRS 10/22/18 08:00 10/24/18 04:20 3 ML Alteplase, Recombinant (Cathflo For Central Catheter Clearance) 1 mg 1X ONCE 10/19/18 16:45 10/19/18 16:48 DC 10/19/18 17:05 1 MG Amlodipine Besylate (Norvasc) 5 mg DAILY 10/12/18 12:30 10/23/18 08:25 5 MG Aspirin (Children'S Aspirin) 81 mg DAILYWBKFT 10/19/18 08:00 10/23/18 08:25 81 MG Aspirin (Ecotrin) 81 mg DAILYWBKFT 10/10/18 08:00 10/18/18 09:01 DC 10/18/18 08:39 81 MG Atorvastatin Calcium (Lipitor) 10 mg QHS 10/17/18 21:00 10/23/18 23:28 10 MG Atropine Sulfate (ATROPINE 0.5mg SYRINGE) 0.5 mg PRN Q5MIN PRN 10/20/18 15:15 UNV Bisacodyl (Dulcolax Supp) 10 mg PRN DAILY PRN 10/15/18 13:30 10/19/18 08:06 10 MG Budesonide (Pulmicort) 0.5 mg RTBID 10/22/18 08:00 10/23/18 19:40 0.5 MG Calcium Gluconate (Calcium Gluconate) 1,000 mg 1X ONCE 10/07/18 13:30 10/07/18 13:31 Cancel Calcium Gluconate 1000 mg/Sodium Chloride 110 ml @ 220 mls/hr 1X ONCE 10/07/18 15:00 10/07/18 15:29 DC 10/07/18 14:23 220 MLS/HR Dexmedetomidine HCl 200 mcg/ Sodium Chloride 50 ml @ 0 mls/hr CONT PRN 10/20/18 15:15 UNV Dextrose (Dextrose 50%-Water Syringe) 12.5 gm PRN Q15MIN PRN 10/07/18 12:45 Doxycycline Hyclate 100 mg/ Dextrose 100 ml @ 50 mls/hr Q12HR 10/09/18 13:00 10/23/18 23:21 50 MLS/HR Etomidate (Amidate) 20 mg 1X ONCE 10/07/18 11:30 10/07/18 11:33 DC 10/07/18 11:01 20 MG Famotidine (Pepcid Vial) 20 mg QHS 10/08/18 21:00 10/23/18 23:28 20 MG Fentanyl Citrate (Fentanyl 2ml Vial) 100 mcg STK-MED ONCE 10/16/18 12:36 10/16/18 12:37 DC Fluconazole (Diflucan) 200 mg DAILY 10/20/18 11:00 10/23/18 08:25 200 MG Furosemide (Lasix) 40 mg DAILY 10/19/18 09:00 10/23/18 08:25 40 MG Glycopyrrolate (Robinul) 1 mg STK-MED ONCE 10/16/18 13:27 10/16/18 13:28 DC Heparin Sodium (Porcine) (Heparin Sodium) 5,000 unit Q8HRS 10/07/18 14:00 10/24/18 06:50 5,000 UNIT Hydralazine HCl (Apresoline Inj) 10 mg PRN Q4HRS PRN 10/12/18 11:45 10/24/18 00:36 10 MG Hydromorphone HCl (Dilaudid) 0.5 mg PRN Q10MIN PRN 10/16/18 07:00 10/17/18 06:59 DC Info (CONTRAST GIVEN -- Rx MONITORING) 1 each PRN DAILY PRN 10/21/18 20:00 10/23/18 19:59 DC Info (Tpn Per Pharmacy) 1 each PRN DAILY PRN 10/20/18 10:00 10/22/18 21:59 DC 10/22/18 12:16 1 EACH Insulin Glargine (Lantus) 10 units QHS 10/13/18 21:00 10/23/18 23:42 10 UNITS Insulin Human Lispro (HumaLOG) 0-9 UNITS Q6HRS 10/07/18 18:00 10/23/18 23:44 4 UNITS Insulin Human Regular (HumuLIN R VIAL) 10 unit 1X ONCE 10/07/18 12:45 10/07/18 12:46 DC 10/07/18 13:00 10 UNIT Iohexol (Omnipaque 240 Mg/ml) 30 ml 1X ONCE 10/21/18 20:00 10/21/18 20:01 DC 10/21/18 19:35 30 ML Iohexol (Omnipaque 300 Mg/ml) 75 ml 1X ONCE 10/21/18 20:00 10/21/18 20:01 DC 10/21/18 20:54 75 ML Lactobacillus Rhamnosus (Culturelle) 1 cap BID 10/08/18 09:00 10/09/18 15:58 DC Levofloxacin/ Dextrose 150 ml @ 100 mls/hr Q48H 10/09/18 12:00 10/09/18 12:00 DC Levofloxacin/ Dextrose (Levaquin Per Pharmacy) 1 each PRN DAILY PRN 10/07/18 12:45 10/08/18 07:33 DC Lidocaine HCl (Xylocaine-Mpf 1% 2ml Vial) 2 ml PRN 1X PRN 10/16/18 07:00 10/17/18 06:59 DC Linezolid/Dextrose 300 ml @ 300 mls/hr Q12HR 10/08/18 11:30 10/10/18 07:24 DC 10/09/18 20:58 300 MLS/HR Lisinopril (Prinivil) 10 mg DAILY 10/11/18 14:00 10/15/18 09:46 DC 10/14/18 08:03 10 MG Lorazepam (Ativan Inj) 2 mg PRN Q6HRS PRN 10/23/18 17:30 10/24/18 07:05 2 MG Lorazepam (Ativan) 1 mg PRN Q6HRS PRN 10/23/18 09:15 10/23/18 10:07 1 MG Meropenem 500 mg/ Sodium Chloride 50 ml @ 100 mls/hr Q8HRS 10/07/18 17:00 10/20/18 09:03 DC 10/20/18 05:36 100 MLS/HR Methylprednisolone Sodium Succinate (SOLU-Medrol 40MG VIAL) 40 mg DAILY 10/16/18 09:00 10/20/18 13:10 DC 10/20/18 08:05 40 MG Methylprednisolone Sodium Succinate (SOLU-Medrol 125MG VIAL) 125 mg 1X ONCE 10/07/18 12:00 10/07/18 12:01 DC 10/07/18 11:52 125 MG Metoclopramide HCl (Reglan Vial) 10 mg QIDACHS 10/20/18 16:30 10/24/18 07:09 10 MG Midazolam HCl (Versed) 2 mg STK-MED ONCE 10/16/18 12:36 10/16/18 12:37 DC Morphine Sulfate (Morphine Sulfate) 1 mg PRN Q10MIN PRN 10/16/18 07:00 10/17/18 06:59 DC Neostigmine Methylsulfate (Neostigmine Methylsulfate) 5 mg STK-MED ONCE 10/16/18 13:27 10/16/18 13:28 DC Norepinephrine Bitartrate 250 ml @ 1.875 mls/ hr CONT PRN 10/07/18 14:00 10/07/18 14:01 13.125 MLS/HR Ondansetron HCl (Zofran) 4 mg PRN Q6HRS PRN 10/16/18 07:00 10/17/18 06:59 DC Pantoprazole Sodium (PROTONIX VIAL for IV PUSH) 40 mg STK-MED ONCE 10/07/18 12:52 10/07/18 12:55 DC Prochlorperazine Edisylate (Compazine) 5 mg PACU PRN PRN 10/16/18 07:00 10/17/18 06:59 DC Ringer's Solution 1,000 ml @ 50 mls/hr Q20H 10/17/18 07:00 10/17/18 18:59 DC Rocuronium Haiku (Zemuron) 50 mg STK-MED ONCE 10/16/18 12:36 10/16/18 12:37 DC Sevoflurane (Ultane) 30 ml STK-MED ONCE 10/16/18 13:36 10/16/18 13:37 DC Sodium Polystyrene Sulfonate (Kayexalate) 15 gm 1X ONCE 10/07/18 13:30 10/07/18 13:31 DC 10/07/18 14:10 15 GM Sodium Bicarbonate (Sodium Bicarb Adult 8.4% Syr) 50 meq 1X ONCE 10/07/18 12:45 10/07/18 12:46 DC 10/07/18 13:07 50 MEQ Sodium Chloride 10 meq/Potassium Acetate 50 meq/ Potassium Phosphate 15 mmol/ Magnesium Sulfate 8 meq/Calcium Gluconate 10 meq/ Multivitamins 10 ml/Chromium/ Copper/Manganese/ Seleni/Zn 1 ml/ Total Parenteral Nutrition/Amino Acids/Dextrose/ Fat Emulsion Intravenous 1,512 ml @ 63 mls/hr TPN CONT 10/21/18 22:00 10/22/18 21:59 DC 10/21/18 21:35 63 MLS/HR Sodium Chloride 20 meq/Potassium Acetate 50 meq/ Potassium Phosphate 13.6 mmol/Magnesium Sulfate 10 meq/ Calcium Gluconate 10 meq/ Multivitamins 10 ml/Chromium/ Copper/Manganese/ Seleni/Zn 1 ml/ Total Parenteral Nutrition/Amino Acids/Dextrose/ Fat Emulsion Intravenous 1,512 ml @ 63 mls/hr TPN CONT 10/20/18 22:00 10/21/18 21:59 DC 10/20/18 21:59 63 MLS/HR Succinylcholine Chloride (Anectine) 100 mg 1X ONCE 10/07/18 11:30 10/07/18 11:33 DC 10/07/18 11:01 100 MG Vancomycin HCl 250 ml @ 250 mls/hr 1X ONCE 10/07/18 12:00 10/07/18 12:59 DC 10/07/18 12:27 250 MLS/HR Labs: Lab Laboratory Tests Test 10/23/18 08:45 10/23/18 14:50 10/23/18 17:52 10/23/18 23:40 White Blood Count 10.0 x10^3/uL (4.0-11.0) Red Blood Count 3.53 x10^6/uL (4.30-5.70) Hemoglobin 10.3 g/dL (13.0-17.5) Hematocrit 33.0 % (39.0-53.0) Mean Corpuscular Volume 93 fL (79-100) Mean Corpuscular Hemoglobin 29 pg (25-35) Mean Corpuscular Hemoglobin Concent 31 g/dL (31-37) Red Cell Distribution Width 16.7 % (11.5-14.5) Platelet Count 132 x10^3/uL (140-400) Neutrophils (%) (Auto) 80 % (31-73) Lymphocytes (%) (Auto) 10 % (24-48) Monocytes (%) (Auto) 6 % (0-9) Eosinophils (%) (Auto) 4 % (0-3) Basophils (%) (Auto) 0 % (0-3) Neutrophils # (Auto) 8.0 x10^3uL (1.8-7.7) Lymphocytes # (Auto) 1.0 x10^3/uL (1.0-4.8) Monocytes # (Auto) 0.5 x10^3/uL (0.0-1.1) Eosinophils # (Auto) 0.4 x10^3/uL (0.0-0.7) Basophils # (Auto) 0.0 x10^3/uL (0.0-0.2) Glucose (Fingerstick) 134 mg/dL (70-99) 139 mg/dL (70-99) 155 mg/dL (70-99) Test 10/24/18 06:05 10/24/18 06:47 White Blood Count 9.5 x10^3/uL (4.0-11.0) Red Blood Count 3.28 x10^6/uL (4.30-5.70) Hemoglobin 9.7 g/dL (13.0-17.5) Hematocrit 30.2 % (39.0-53.0) Mean Corpuscular Volume 92 fL (79-100) Mean Corpuscular Hemoglobin 30 pg (25-35) Mean Corpuscular Hemoglobin Concent 32 g/dL (31-37) Red Cell Distribution Width 16.7 % (11.5-14.5) Platelet Count 127 x10^3/uL (140-400) Neutrophils (%) (Auto) 81 % (31-73) Lymphocytes (%) (Auto) 10 % (24-48) Monocytes (%) (Auto) 4 % (0-9) Eosinophils (%) (Auto) 4 % (0-3) Basophils (%) (Auto) 1 % (0-3) Neutrophils # (Auto) 7.7 x10^3uL (1.8-7.7) Lymphocytes # (Auto) 0.9 x10^3/uL (1.0-4.8) Monocytes # (Auto) 0.4 x10^3/uL (0.0-1.1) Eosinophils # (Auto) 0.4 x10^3/uL (0.0-0.7) Basophils # (Auto) 0.1 x10^3/uL (0.0-0.2) Glucose (Fingerstick) 126 mg/dL (70-99) Micro micro reviewed Objective: Assessment: Fever - resolved Pneumonia + mycoplasma 10/08 - on Doxy 10/09. Sputum cult - routine raheel/ Strep and Legionella - neg UTI, POA staph sap NSTEMI Lactic acidosis - improved Allergy PCN w/ hives and throat swelling; erythromycin w/ hives. Leukocytosis - on steroids - better Hypotension, now off Levophed gtt Acute encephalopathy - improving Acute respiratory failure s/p intubation ALEX - better COPD, O2 dependent Large staghorn calculus lt kidney mild hydronephrosis Plan: Plan of Care awaiting transfer to [facility] doxycycline D/W ENRIQUE CHAMBERS MD October 24, 2018 07:34
[2018-10-24] MEDS: BUDESONIDE 0.5 MG/2 ML NEBU. NEB SCH ×2 (08:10→21:04)
[2018-10-24 08:54] LABS: BASE EXCESS ABG 7 mmol/L (-3-3); HCO3 ABG 33 mmol/L (21-28); PCO2 ABG 51 mmHg (35-46); PO2 ABG 104 mmHg (65-108); SAT O2 ABG 98 % (92-99)
--- NOTE | 2018-10-24 09:15 | PDOC ---
PROGRESS NOTES Chief Complaint Chief Complaint Acute on chronic hypercapnic and hypoxic respiratory failure s/p Trach and PEG End-stage COPD Clinical pneumonia MORBID OBESITY Possible sepsis UTI- Staphylococcus saprophyticus. Greater than 100,000 colony forming units per mL Pneumonia + mycoplasma 10/08 - on Doxy 10/09 azotemia ICU deconditioning Severe protein calorie malnutrition History of Present Illness History of Present Illness The patient is a 78-year-old male who was admitted on October 07, after being found down unresponsive. He apparently did not lose a pulse. He was intubated upon admission and remains on the ventilator since. He apparently has a history of severe COPD and has been oxygen dependent at home, although according to his , he is not been using his oxygen prior to admit. He has a history of lifelong heavy smoking 3ppd, but did quit 3 years ago. He was a prior heavy ETOH user, has also since quit this. He failed several weaning trials and is s/p tracheostomy and PEG placement on 10/17/2018. Patient was seen and examined in the ICU He has a trach (day 7) remains unable to speak, still is alert and able to communicate PEG feeds back on. Vent set to spontaneous respirations 14 of pressure support 35% FiO2 Discussed with RN Has been more agitated with increased ativan, morphine and fentanyl requirements when has has large mucous plugs removed, however, today now with PEG hydrocodone seems to be more comfortable. Will need LTAC for vent weaning 34 minutes CC time Vitals Vitals Vital Signs Date Time Temp Pulse Resp B/P (MAP) Pulse Ox O2 Delivery O2 Flow Rate FiO2 10/24/18 08:00 84 22 148/59 (88) 100 Ventilator 10/24/18 07:00 98.1 98.1 Physical Exam Physical Exam GENERAL: awake, alert.comfortable HENT: normal conj. PERRL. Neck : trach, + LUNGS: Clear CV: S1 S2 irregular ABD: Obese, soft, NT, BS present has a PEG feeding running, PEG in place : Jeffers in place EXT: 1 + edema lower extremities, bilaterally. No cyanosis. SKIN: warm without rash BOG CUTTER: awake, no focal deficit General: Alert, No acute distress, Other (Tracheostomy/Vent unable to speak) Heart: Regular rate, Normal S1, Normal S2 Lungs: Wheezing, Crackles Abdomen: Soft, No tenderness Extremities: No cyanosis, Other (trace edema) Skin: No significant lesion Labs LABS Laboratory Tests Test 10/23/18 14:50 10/23/18 17:52 10/23/18 23:40 10/24/18 06:05 Glucose (Fingerstick) 134 mg/dL (70-99) 139 mg/dL (70-99) 155 mg/dL (70-99) White Blood Count 9.5 x10^3/uL (4.0-11.0) Red Blood Count 3.28 x10^6/uL (4.30-5.70) Hemoglobin 9.7 g/dL (13.0-17.5) Hematocrit 30.2 % (39.0-53.0) Mean Corpuscular Volume 92 fL (79-100) Mean Corpuscular Hemoglobin 30 pg (25-35) Mean Corpuscular Hemoglobin Concent 32 g/dL (31-37) Red Cell Distribution Width 16.7 % (11.5-14.5) Platelet Count 127 x10^3/uL (140-400) Neutrophils (%) (Auto) 81 % (31-73) Lymphocytes (%) (Auto) 10 % (24-48) Monocytes (%) (Auto) 4 % (0-9) Eosinophils (%) (Auto) 4 % (0-3) Basophils (%) (Auto) 1 % (0-3) Neutrophils # (Auto) 7.7 x10^3uL (1.8-7.7) Lymphocytes # (Auto) 0.9 x10^3/uL (1.0-4.8) Monocytes # (Auto) 0.4 x10^3/uL (0.0-1.1) Eosinophils # (Auto) 0.4 x10^3/uL (0.0-0.7) Basophils # (Auto) 0.1 x10^3/uL (0.0-0.2) Test 10/24/18 06:47 Glucose (Fingerstick) 126 mg/dL (70-99) Assessment and Plan Assessmemt and Plan Problems Medical Problems: (1) Acute respiratory distress Status: Acute (2) CAP (community acquired pneumonia) Status: Acute (3) CHF (congestive heart failure) Status: Acute (4) Elevated liver function tests Status: Acute (5) Elevated troponin I level Status: Acute (6) Hyperkalemia Status: Acute (7) Renal insufficiency Status: Acute (8) Sepsis Status: Acute (9) Unresponsiveness Status: Acute (10) Urinary tract infection Status: Acute Comment Review of Relevant I have reviewed the following items akbar (where applicable) has been applied. Labs Laboratory Tests Test 10/22/18 13:48 10/22/18 17:58 10/22/18 21:35 10/23/18 00:00 Glucose (Fingerstick) 176 mg/dL (70-99) 176 mg/dL (70-99) 165 mg/dL (70-99) 155 mg/dL (70-99) Test 10/23/18 05:59 10/23/18 06:40 10/23/18 08:45 10/23/18 14:50 Glucose (Fingerstick) 142 mg/dL (70-99) 134 mg/dL (70-99) Sodium Level 142 mmol/L (136-145) Potassium Level 4.8 mmol/L (3.5-5.1) Chloride Level 104 mmol/L (98-107) Carbon Dioxide Level 30 mmol/L (21-32) Anion Gap 8 (6-14) Blood Urea Nitrogen 54 mg/dL (8-26) Creatinine 1.1 mg/dL (0.7-1.3) Estimated GFR (Cockcroft-Gault) 65.1 Glucose Level 134 mg/dL (70-99) Calcium Level 9.0 mg/dL (8.5-10.1) Phosphorus Level 3.0 mg/dL (2.6-4.7) Magnesium Level 2.1 mg/dL (1.8-2.4) White Blood Count 10.0 x10^3/uL (4.0-11.0) Red Blood Count 3.53 x10^6/uL (4.30-5.70) Hemoglobin 10.3 g/dL (13.0-17.5) Hematocrit 33.0 % (39.0-53.0) Mean Corpuscular Volume 93 fL (79-100) Mean Corpuscular Hemoglobin 29 pg (25-35) Mean Corpuscular Hemoglobin Concent 31 g/dL (31-37) Red Cell Distribution Width 16.7 % (11.5-14.5) Platelet Count 132 x10^3/uL (140-400) Neutrophils (%) (Auto) 80 % (31-73) Lymphocytes (%) (Auto) 10 % (24-48) Monocytes (%) (Auto) 6 % (0-9) Eosinophils (%) (Auto) 4 % (0-3) Basophils (%) (Auto) 0 % (0-3) Neutrophils # (Auto) 8.0 x10^3uL (1.8-7.7) Lymphocytes # (Auto) 1.0 x10^3/uL (1.0-4.8) Monocytes # (Auto) 0.5 x10^3/uL (0.0-1.1) Eosinophils # (Auto) 0.4 x10^3/uL (0.0-0.7) Basophils # (Auto) 0.0 x10^3/uL (0.0-0.2) Test 10/23/18 17:52 10/23/18 23:40 10/24/18 06:05 10/24/18 06:47 Glucose (Fingerstick) 139 mg/dL (70-99) 155 mg/dL (70-99) 126 mg/dL (70-99) White Blood Count 9.5 x10^3/uL (4.0-11.0) Red Blood Count 3.28 x10^6/uL (4.30-5.70) Hemoglobin 9.7 g/dL (13.0-17.5) Hematocrit 30.2 % (39.0-53.0) Mean Corpuscular Volume 92 fL (79-100) Mean Corpuscular Hemoglobin 30 pg (25-35) Mean Corpuscular Hemoglobin Concent 32 g/dL (31-37) Red Cell Distribution Width 16.7 % (11.5-14.5) Platelet Count 127 x10^3/uL (140-400) Neutrophils (%) (Auto) 81 % (31-73) Lymphocytes (%) (Auto) 10 % (24-48) Monocytes (%) (Auto) 4 % (0-9) Eosinophils (%) (Auto) 4 % (0-3) Basophils (%) (Auto) 1 % (0-3) Neutrophils # (Auto) 7.7 x10^3uL (1.8-7.7) Lymphocytes # (Auto) 0.9 x10^3/uL (1.0-4.8) Monocytes # (Auto) 0.4 x10^3/uL (0.0-1.1) Eosinophils # (Auto) 0.4 x10^3/uL (0.0-0.7) Basophils # (Auto) 0.1 x10^3/uL (0.0-0.2) Laboratory Tests Test 10/23/18 14:50 10/23/18 17:52 10/23/18 23:40 10/24/18 06:05 Glucose (Fingerstick) 134 mg/dL (70-99) 139 mg/dL (70-99) 155 mg/dL (70-99) White Blood Count 9.5 x10^3/uL (4.0-11.0) Red Blood Count 3.28 x10^6/uL (4.30-5.70) Hemoglobin 9.7 g/dL (13.0-17.5) Hematocrit 30.2 % (39.0-53.0) Mean Corpuscular Volume 92 fL (79-100) Mean Corpuscular Hemoglobin 30 pg (25-35) Mean Corpuscular Hemoglobin Concent 32 g/dL (31-37) Red Cell Distribution Width 16.7 % (11.5-14.5) Platelet Count 127 x10^3/uL (140-400) Neutrophils (%) (Auto) 81 % (31-73) Lymphocytes (%) (Auto) 10 % (24-48) Monocytes (%) (Auto) 4 % (0-9) Eosinophils (%) (Auto) 4 % (0-3) Basophils (%) (Auto) 1 % (0-3) Neutrophils # (Auto) 7.7 x10^3uL (1.8-7.7) Lymphocytes # (Auto) 0.9 x10^3/uL (1.0-4.8) Monocytes # (Auto) 0.4 x10^3/uL (0.0-1.1) Eosinophils # (Auto) 0.4 x10^3/uL (0.0-0.7) Basophils # (Auto) 0.1 x10^3/uL (0.0-0.2) Test 10/24/18 06:47 Glucose (Fingerstick) 126 mg/dL (70-99) Microbiology 10/07/18 Blood Culture - Final, Complete NO GROWTH AFTER 5 DAYS 10/08/18 - Final, Complete 10/08/18 - Final, Complete 10/08/18 - Final, Complete 10/08/18 - Final, Complete 10/08/18 - Final, Complete 10/08/18 Gram Stain Evaluation - Final, Complete 10/08/18 Sputum Culture - Final, Complete 10/08/18 Sputum Result 1 - Final, Complete 10/07/18 Urine Culture - Final, Complete 10/07/18 Urine Culture Result 1 (ELEN) - Final, Complete 10/07/18 Antimicrobic Susceptibility - Final, Complete Medications Current Medications Sodium Chloride 1,000 ml @ 1,000 mls/hr Q1H IV Last administered on 10/07/18at 11:27; Start 10/07/18 at 10:52; Stop 10/07/18 at 11:51; Status DC Midazolam HCl 100 ml @ 1 mls/hr 1X ONCE IV Last administered on 10/07/18at 11:20; Start 10/07/18 at 11:15; Stop 10/09/18 at 15:55; Status DC Etomidate (Amidate) 20 mg STK-MED ONCE IV ; Start 10/07/18 at 11:13; Stop 10/07/18 at 11:14; Status DC Succinylcholine Chloride (Anectine) 200 mg STK-MED ONCE .ROUTE ; Start 10/07/18 at 11:13; Stop 10/07/18 at 11:14; Status DC Etomidate (Amidate) 20 mg 1X ONCE IV Last administered on 10/07/18at 11:01; Start 10/07/18 at 11:30; Stop 10/07/18 at 11:33; Status DC Succinylcholine Chloride (Anectine) 100 mg 1X ONCE IV Last administered on 10/07/18at 11:01; Start 10/07/18 at 11:30; Stop 10/07/18 at 11:33; Status DC Albuterol Sulfate (Ventolin Neb Soln) 10 mg 1X ONCE CONT NEB ; Start 10/07/18 at 12:00; Stop 10/07/18 at 12:01; Status DC Methylprednisolone Sodium Succinate (SOLU-Medrol 125MG VIAL) 125 mg 1X ONCE IV Last administered on 10/07/18at 11:52; Start 10/07/18 at 12:00; Stop 10/07/18 at 12:01; Status DC Vancomycin HCl 250 ml @ 250 mls/hr 1X ONCE IV Last administered on 10/07/18at 12:27; Start 10/07/18 at 12:00; Stop 10/07/18 at 12:59; Status DC Levofloxacin/ Dextrose 150 ml @ 100 mls/hr 1X ONCE IV Last administered on 10/07/18at 12:28; Start 10/07/18 at 12:00; Stop 10/07/18 at 13:29; Status DC Sodium Chloride 1,000 ml @ 1,000 mls/hr 1X ONCE IV Last administered on 09/27 06/17at 12:57; Start 10/07/18 at 12:45; Stop 10/07/18 at 13:44; Status DC Sodium Chloride 1,000 ml @ 1,000 mls/hr 1X ONCE IV Last administered on 10/07/18at 12:58; Start 10/07/18 at 12:45; Stop 10/07/18 at 13:44; Status DC Dextrose (Dextrose 50%-Water Syringe) 25 gm 1X ONCE IV Last administered on 10/07/18at 12:59; Start 10/07/18 at 12:45; Stop 10/07/18 at 12:46; Status DC Insulin Human Regular (HumuLIN R VIAL) 10 unit 1X ONCE IV Last administered on 10/07/18at 13:00; Start 10/07/18 at 12:45; Stop 10/07/18 at 12:46; Status DC Sodium Bicarbonate (Sodium Bicarb Adult 8.4% Syr) 50 meq 1X ONCE IV Last administered on 10/07/18at 13:07; Start 10/07/18 at 12:45; Stop 10/07/18 at 12:46; Status DC Sodium Chloride 1,000 ml @ 100 mls/hr Q10H IV ; Start 10/07/18 at 16:00; Stop 10/07/18 at 16:00; Status DC Pantoprazole Sodium (PROTONIX VIAL for IV PUSH) 40 mg DAILYAC IVP Last administ ered on 10/08/18at 08:25; Start 10/07/18 at 13:30; Stop 10/08/18 at 09:54; Status DC Pantoprazole Sodium (PROTONIX VIAL for IV PUSH) 40 mg 1X ONCE IVP ; Start 10/07/18 at 12:45; Stop 10/07/18 at 12:46; Status UNV Heparin Sodium (Porcine) (Heparin Sodium) 5,000 unit Q8HRS SQ Last administered on 10/24/18at 06:50; Start 10/07/18 at 14:00 Levofloxacin/ Dextrose (Levaquin Per Pharmacy) 1 each PRN DAILY PRN MC SEE COMMENTS; Start 10/07/18 at 12:45; Stop 10/08/18 at 07:33; Status DC Insulin Human Lispro (HumaLOG) 0-9 UNITS TIDWMEALS SQ ; Start 10/07/18 at 17:00; Stop 10/07/18 at 17:00; Status DC Dextrose (Dextrose 50%-Water Syringe) 12.5 gm PRN Q15MIN PRN IV SEE COMMENTS; Start 10/07/18 at 12:45 Albuterol/ Ipratropium (Duoneb) 3 ml RTQID NEB ; Start 10/07/18 at 16:00; Status Cancel Methylprednisolone Sodium Succinate (SOLU-Medrol 40MG VIAL) 40 mg Q8HRS IV Last administered on 10/14/18at 05:48; Start 10/07/18 at 22:00; Stop 10/14/18 at 09:29; Status DC Acetaminophen (Tylenol) 650 mg PRN Q6HRS PRN PEG MILD PAIN / TEMP Last administered on 10/22/18at 20:27; Start 10/07/18 at 12:45 Morphine Sulfate (Morphine Sulfate) 2 mg PRN Q2HR PRN IV PAIN, 1ST CHOICE Last administered on 10/24/18at 07:43; Start 10/07/18 at 12:45 Ondansetron HCl (Zofran) 4 mg PRN Q6HRS PRN IV NAUSEA/VOMITING Last administered on 10/20/18at 00:05; Start 10/07/18 at 12:45 Norepinephrine Bitartrate 250 ml @ 1.875 mls/ hr CONT PRN IV SEE I/O RECORD Last administered on 10/07/18at 14:01; Start 10/07/18 at 14:00 Sodium Chloride 1,000 ml @ 150 mls/hr Q6H40M IV Last administered on 10/08/18at 15:09; Start 10/07/18 at 14:00; Stop 10/08/18 at 13:59; Status DC Calcium Gluconate (Calcium Gluconate) 1,000 mg 1X ONCE IVP ; Start 10/07/18 at 13:30; Stop 10/07/18 at 13:31; Status Cancel Sodium Polystyrene Sulfonate (Kayexalate) 15 gm 1X ONCE PO Last administered on 10/07/18at 14:10; Start 10/07/18 at 13:30; Stop 10/07/18 at 13:31; Status DC Pantoprazole Sodium (PROTONIX VIAL for IV PUSH) 40 mg STK-MED ONCE IVP ; Start 10/07/18 at 12:52; Stop 10/07/18 at 12:55; Status DC Levofloxacin/ Dextrose 150 ml @ 100 mls/hr Q48H IV ; Start 10/09/18 at 12:00; Stop 10/09/18 at 12:00; Status DC Calcium Gluconate 1000 mg/Sodium Chloride 110 ml @ 220 mls/hr 1X ONCE IV Last administered on 10/07/18at 14:23; Start 10/07/18 at 15:00; Stop 10/07/18 at 15:29; Status DC Sodium Chloride 1,000 ml @ 1,000 mls/hr 1X ONCE IV Last administered on 09/27 06/17at 14:50; Start 10/07/18 at 15:00; Stop 10/07/18 at 15:59; Status DC Sodium Chloride 1,000 ml @ 999 mls/hr 1X ONCE IV ; Start 10/07/18 at 15:00; Stop 10/07/18 at 16:00; Status DC Albuterol Sulfate (Ventolin Neb Soln) 2.5 mg PRN Q2HR PRN NEB DYSPNEA; Start 10/07/18 at 15:00 Albuterol/ Ipratropium (Duoneb) 3 ml RTQID NEB Last administered on 10/21/18at 19:45; Start 10/07/18 at 16:00; Stop 10/22/18 at 06:29; Status DC Insulin Human Lispro (HumaLOG) 0-9 UNITS Q6HRS SQ Last administered on 10/23/18at 23:44; Start 10/07/18 at 18:00 Meropenem 500 mg/ Sodium Chloride 50 ml @ 100 mls/hr Q8HRS IV Last administered on 10/20/18at 05:36; Start 10/07/18 at 17:00; Stop 10/20/18 at 09:03; Status DC Midazolam HCl 100 ml @ 5 mls/hr CONT PRN IV SEE I/O RECORD Last administered on 10/18/18at 18:44; Start 10/08/18 at 04:15; Stop 10/23/18 at 07:49; Status DC Lactobacillus Rhamnosus (Culturelle) 1 cap BID PO ; Start 10/08/18 at 09:00; Stop 10/09/18 at 15:58; Status DC Famotidine (Pepcid Vial) 20 mg QHS IVP Last administered on 10/23/18at 23:28; Start 10/08/18 at 21:00 Linezolid/Dextrose 300 ml @ 300 mls/hr Q12HR IV Last administered on 10/09/18at 20:58; Start 10/08/18 at 11:30; Stop 10/10/18 at 07:24; Status DC Doxycycline Hyclate 100 mg/ Dextrose 100 ml @ 50 mls/hr Q12HR IV Last administered on 10/23/18at 23:21; Start 10/09/18 at 13:00; Stop 10/24/18 at 07:56; Status DC Aspirin (Ecotrin) 81 mg DAILYWBKFT PO Last administered on 10/18/18at 08:39; Start 10/10/18 at 08:00; Stop 10/18/18 at 09:01; Status DC Furosemide (Lasix) 40 mg 1X ONCE IVP Last administered on 10/11/18at 08:36; Start 10/11/18 at 09:00; Stop 10/11/18 at 09:01; Status DC Lisinopril (Prinivil) 10 mg DAILY PO Last administered on 10/14/18at 08:03; Start 10/11/18 at 14:00; Stop 10/15/18 at 09:46; Status DC Furosemide (Lasix) 40 mg DAILY IVP Last administered on 10/18/18at 08:40; Start 10/12/18 at 12:30; Stop 10/18/18 at 14:22; Status DC Amlodipine Besylate (Norvasc) 5 mg DAILY PO Last administered on 10/23/18at 08:25; Start 10/12/18 at 12:30 Hydralazine HCl (Apresoline Inj) 10 mg PRN Q4HRS PRN IVP ELEVATED BP, SEE COMMENTS Last administered on 10/24/18at 00:36; Start 10/12/18 at 11:45 Insulin Glargine (Lantus) 10 units QHS SQ Last administered on 10/23/18at 23:42; Start 10/13/18 at 21:00 Ondansetron HCl (Zofran) 4 mg PRN Q6HRS PRN IV NAUSEA/VOMITING; Start 10/16/18 at 07:00; Stop 10/17/18 at 06:59; Status DC Fentanyl Citrate (Fentanyl 2ml Vial) 25 mcg PRN Q5MIN PRN IV MILD PAIN 1-3; Start 10/16/18 at 07:00; Stop 10/17/18 at 06:59; Status DC Fentanyl Citrate (Fentanyl 2ml Vial) 50 mcg PRN Q5MIN PRN IV MODERATE TO SEVERE PAIN Last administered on 10/17/18at 00:36; Start 10/16/18 at 07:00; Stop 10/17/18 at 06:59; Status DC Morphine Sulfate (Morphine Sulfate) 1 mg PRN Q10MIN PRN IV SEVERE PAIN 7-10; Start 10/16/18 at 07:00; Stop 10/17/18 at 06:59; Status DC Ringer's Solution 1,000 ml @ 30 mls/hr Q24H IV ; Start 10/16/18 at 07:00; Stop 10/16/18 at 18:59; Status DC Lidocaine HCl (Xylocaine-Mpf 1% 2ml Vial) 2 ml PRN 1X PRN ID PRIOR TO IV START; Start 10/16/18 at 07:00; Stop 10/17/18 at 06:59; Status DC Hydromorphone HCl (Dilaudid) 0.5 mg PRN Q10MIN PRN IV SEV PAIN, Second choice; Start 10/16/18 at 07:00; Stop 10/17/18 at 06:59; Status DC Prochlorperazine Edisylate (Compazine) 5 mg PACU PRN PRN IV NAUSEA, MRX1; Start 10/16/18 at 07:00; Stop 10/17/18 at 06:59; Status DC Fentanyl Citrate (Fentanyl 2ml Vial) 50 mcg PRN Q2HR PRN IV PAIN, 2ND CHOICE Last administered on 10/23/18at 06:51; Start 10/14/18 at 00:30; Stop 10/23/18 at 09:05; Status DC Methylprednisolone Sodium Succinate (SOLU-Medrol 40MG VIAL) 40 mg Q12HR IV Last administered on 10/15/18at 08:28; Start 10/14/18 at 21:00; Stop 10/15/18 at 09:16; Status DC Methylprednisolone Sodium Succinate (SOLU-Medrol 40MG VIAL) 40 mg DAILY IV Last administered on 10/20/18at 08:05; Start 10/16/18 at 09:00; Stop 10/20/18 at 13:10; Status DC Sodium Chloride 500 ml @ 500 mls/hr 1X ONCE IV Last administered on 10/15/18at 09:59; Start 10/15/18 at 09:30; Stop 10/15/18 at 10:29; Status DC Sodium Chloride 1,000 ml @ 75 mls/hr [id number] IV Last administered on 10/17/18at 05:19; Start 10/15/18 at 11:45; Stop 10/17/18 at 17:11; Status DC Bisacodyl (Dulcolax Supp) 10 mg PRN DAILY PRN [place] CONSTIPATION Last administered on 10/19/18at 08:06; Start 10/15/18 at 13:30 Midazolam HCl (Versed) 2 mg STK-MED ONCE .ROUTE ; Start 10/16/18 at 12:36; Stop 10/16/18 at 12:37; Status DC Fentanyl Citrate (Fentanyl 2ml Vial) 100 mcg STK-MED ONCE .ROUTE ; Start 10/16/18 at 12:36; Stop 10/16/18 at 12:37; Status DC Rocuronium [place] (Zemuron) 50 mg STK-MED ONCE .ROUTE ; Start 10/16/18 at 12:36; Stop 10/16/18 at 12:37; Status DC Neostigmine Methylsulfate (Neostigmine Methylsulfate) 5 mg STK-MED ONCE .ROUTE ; Start 10/16/18 at 13:27; Stop 10/16/18 at 13:28; Status DC Glycopyrrolate (Robinul) 1 mg STK-MED ONCE .ROUTE ; Start 10/16/18 at 13:27; Stop 10/16/18 at 13:28; Status DC Sevoflurane (Ultane) 30 ml STK-MED ONCE IH ; Start 10/16/18 at 13:36; Stop 10/16/18 at 13:37; Status DC Ringer's Solution 1,000 ml @ 50 mls/hr Q20H IV ; Start 10/17/18 at 07:00; Stop 10/17/18 at 18:59; Status DC Atorvastatin Calcium (Lipitor) 10 mg QHS PO Last administered on 10/23/18at 23:2 8; Start 10/17/18 at 21:00 Sodium Chloride 1,000 ml @ 75 mls/hr [id number] IV Last administered on 10/18/18at 08:48; Start 10/17/18 at 17:15; Stop 10/18/18 at 14:22; Status DC Aspirin (Children'S Aspirin) 81 mg DAILYWBKFT PO Last administered on 10/23/18at 08:25; Start 10/19/18 at 08:00 Furosemide (Lasix) 40 mg DAILY PO Last administered on 10/23/18 08:25; Start 10/19/18 at 09:00 Metoclopramide HCl (Reglan Vial) 5 mg QIDACHS IV Last administered on 10/20/18at 11:09; Start 10/19/18 at 11:30; Stop 10/20/18 at 12:42; Status DC Alteplase, Recombinant (Cathflo For Central Catheter Clearance) 1 mg 1X ONCE INT CAT Last administered on 10/19/18at 17:05; Start 10/19/18 at 16:45; Stop 10/19/18 at 16:48; Status DC Alteplase, Recombinant (Cathflo For Central Catheter Clearance) 1 mg 1X ONCE INT CAT Last administered on 10/19/18at 17:05; Start 10/19/18 at 16:45; Stop 10/19/18 at 16:48; Status DC Fluconazole (Diflucan) 200 mg DAILY PO Last administered on 10/23/18at 08:25; Start 10/20/18 at 11:00 Info (Tpn Per Pharmacy) 1 each PRN DAILY PRN MC SEE COMMENTS Last administered on 10/22/18at 12:16; Start 10/20/18 at 10:00; Stop 10/22/18 at 21:59; Status DC Lorazepam (Ativan Inj) 1 mg PRN Q6HRS PRN IV ANXIETY / AGITATION Last administered on 10/23/18at 10:07; Start 10/20/18 at 10:30; Stop 10/23/18 at 17:29; Status DC Sodium Chloride 20 meq/Potassium Acetate 50 meq/ Potassium Phosphate 13.6 mmol/M agnesium Sulfate 10 meq/ Calcium Gluconate 10 meq/ Multivitamins 10 ml/Chromium/ Copper/Manganese/ Seleni/Zn 1 ml/ Total Parenteral Nutrition/Amino Acids/Dextrose/ Fat Emulsion Intravenous 1,512 ml @ 63 mls/hr TPN CONT IV Last administered on 10/20/18at 21:59; Start 10/20/18 at 22:00; Stop 10/21/18 at 21:59; Status DC Metoclopramide HCl (Reglan Vial) 10 mg QIDACHS IV Last administered on 10/24/18at 07:09; Start 10/20/18 at 16:30 Dexmedetomidine HCl 200 mcg/ Sodium Chloride 50 ml @ 0 mls/hr CONT PRN IV PER PROTOCOL; Start 10/20/18 at 15:15; Status UNV Sodium Chloride 500 ml @ 500 mls/hr 1X PRN PRN IV SEE COMMENTS; Start 10/20/18 at 15:15; Status UNV Atropine Sulfate (ATROPINE 0.5mg SYRINGE) 0.5 mg PRN Q5MIN PRN IV SEE COMMENTS; Start 10/20/18 at 15:15; Status UNV Sodium Chloride 10 meq/Potassium Acetate 50 meq/ Potassium Phosphate 15 mmol/ Magnesium Sulfate 8 meq/Calcium Gluconate 10 meq/ Multivitamins 10 ml/Chromium/ Copper/Manganese/ Seleni/Zn 1 ml/ Total Parenteral Nutrition/Amino Acids/Dextrose/ Fat Emulsion Intravenous 1,512 ml @ 63 mls/hr TPN CONT IV Last administered on 10/21/18at 21:35; Start 10/21/18 at 22:00; Stop 10/22/18 at 21:59; Status DC Iohexol (Omnipaque 300 Mg/ml) 75 ml 1X ONCE IV Last administered on 10/21/18at 20:54; Start 10/21/18 at 20:00; Stop 10/21/18 at 20:01; Status DC Iohexol (Omnipaque 240 Mg/ml) 30 ml 1X ONCE PO Last administered on 10/21/18at 19:35; Start 10/21/18 at 20:00; Stop 10/21/18 at 20:01; Status DC Info (CONTRAST GIVEN -- Rx MONITORING) 1 each PRN DAILY PRN MC SEE COMMENTS; Start 10/21/18 at 20:00; Stop 10/23/18 at 19:59; Status DC Albuterol/ Ipratropium (Duoneb) 3 ml Q4HRS NEB Last administered on 10/24/18at 08:09; Start 10/22/18 at 08:00 Budesonide (Pulmicort) 0.5 mg RTBID NEB Last administered on 10/24/18at 08:10; Start 10/22/18 at 08:00 Lorazepam (Ativan) 1 mg PRN Q6HRS PRN PEG ANXIETY / AGITATION Last administered on 10/23/18at 10:07; Start 10/23/18 at 09:15 Acetaminophen/ Hydrocodone Bitart (Lortab 5/325) 1 tab PRN Q6HRS PRN PO MODERATE-SEVERE PAIN; Start 10/23/18 at 09:15 Lorazepam (Ativan Inj) 2 mg PRN Q6HRS PRN IV ANXIETY / AGITATION Last administered on 10/24/18 07:05; Start 10/23/18 at 17:30 Active Scripts Active Reported Proair Hfa (Albuterol Sulfate) 8.5 Gm Hfa.aer.ad 1 Puff INH PRN Q6HRS PRN Oxazepam 30 Mg Capsule 30 Mg PO QHS Vitals/I & O Vital Sign - Last 24 Hours 10/23/18 10/23/18 10/23/18 10/23/18 10:00 11:00 12:00 12:00 Pulse 91 86 82 Resp B/P (MAP) 79/71 (74) 124/90 (101) 126/95 (105) Pulse Ox 100 100 100 O2 Delivery Ventilator Ventilator Mechanical Ventilator Ventilator 10/23/18 10/23/18 10/23/18 10/23/18 12:40 13:00 13:49 14:00 Pulse 80 86 Resp 15 30 B/P (MAP) 130/90 (103) 137/58 (84) Pulse Ox 100 100 97 94 O2 Delivery Ventilator Ventilator Ventilator Ventilator 10/23/18 10/23/18 10/23/18 10/23/18 14:41 15:00 15:11 15:38 Temp 97.1 97.1 Pulse 95 Resp 30 30 28 B/P (MAP) 151/74 (99) Pulse Ox 100 100 100 100 O2 Delivery Ventilator Ventilator Ventilator Ventilator 10/23/18 10/23/18 10/23/18 10/23/18 16:00 16:00 17:00 18:00 Pulse 96 89 92 Resp 28 24 27 B/P (MAP) 143/74 (97) 151/57 (88) 128/69 (88) Pulse Ox 100 97 96 O2 Delivery Ventilator Mechanical Ventilator Ventilator Ventilator 10/23/18 10/23/18 10/23/18 10/23/18 18:26 19:00 19:40 20:00 Pulse 96 Resp 45 B/P (MAP) 184/73 (110) Pulse Ox 100 99 100 O2 Delivery Ventilator Ventilator Ventilator Mechanical Ventilator 10/23/18 10/23/18 10/23/18 10/23/18 20:00 21:00 22:00 22:09 Temp 98.1 98.1 Pulse 92 84 76 Resp 26 21 21 B/P (MAP) 135/60 (85) 119/57 (77) 128/60 (82) Pulse Ox 98 99 100 100 O2 Delivery Ventilator Ventilator Ventilator Ventilator 10/23/18 10/23/18 10/24/18 10/24/18 23:00 23:55 00:00 00:00 Temp 98.3 98.3 Pulse 98 104 Resp 30 38 B/P (MAP) 196/83 (120) 203/104 (137) Pulse Ox 98 100 100 O2 Delivery Ventilator Ventilator Mechanical Ventilator Ventilator 10/24/18 10/24/18 10/24/18 10/24/18 00:36 01:00 02:00 02:05 Pulse 97 106 104 Resp 47 47 B/P (MAP) 193/89 165/65 (98) 123/72 (89) Pulse Ox 98 98 100 O2 Delivery Ventilator Ventilator Ventilator 10/24/18 10/24/18 10/24/18 10/24/18 02:19 03:00 04:00 04:00 Temp 97.7 97.7 Pulse 88 92 Resp 40 48 48 B/P (MAP) 114/54 (74) 142/72 (95) Pulse Ox 99 98 97 O2 Delivery Ventilator Ventilator Ventilator Mechanical Ventilator 10/24/18 10/24/18 10/24/18 10/24/18 04:20 05:00 06:00 07:00 Temp 98.1 98.1 Pulse 79 73 73 Resp 22 22 22 B/P (MAP) 160/63 (95) 101/45 (63) 124/51 (75) Pulse Ox 100 100 100 100 O2 Delivery Ventilator Ventilator Ventilator Ventilator 10/24/18 10/24/18 10/24/18 07:43 08:00 08:00 Pulse 84 Resp 22 22 B/P (MAP) 148/59 (88) Pulse Ox 100 100 O2 Delivery Ventilator Mechanical Ventilator Ventilator Intake and Output 10/23/18 10/23/18 10/24/18 15:00 23:00 07:00 Intake Total 200 ml 1914 ml 1462 ml Output Total 1350 ml 920 ml 855 ml Balance -1150 ml 994 ml 607 ml OSMANI STEVENS MD October 24, 2018 09:15
--- NOTE | 2018-10-24 09:26 | PDOC ---
Objective: Objective: Per RN - tolerating tube feeds, still has a lot of air, wonders about something for constipation. Vital Signs: Vital Signs Date Time Temp Pulse Resp B/P (MAP) Pulse Ox O2 Delivery O2 Flow Rate FiO2 10/24/18 08:00 84 22 148/59 (88) 100 Ventilator 10/24/18 07:00 98.1 98.1 Labs: Laboratory Tests Test 10/23/18 14:50 10/23/18 17:52 10/23/18 23:40 10/24/18 06:05 Glucose (Fingerstick) 134 mg/dL 139 mg/dL 155 mg/dL White Blood Count 9.5 x10^3/uL Red Blood Count 3.28 x10^6/uL Hemoglobin 9.7 g/dL Hematocrit 30.2 % Mean Corpuscular Volume 92 fL Mean Corpuscular Hemoglobin 30 pg Mean Corpuscular Hemoglobin Concent 32 g/dL Red Cell Distribution Width 16.7 % Platelet Count 127 x10^3/uL Neutrophils (%) (Auto) 81 % Lymphocytes (%) (Auto) 10 % Monocytes (%) (Auto) 4 % Eosinophils (%) (Auto) 4 % Basophils (%) (Auto) 1 % Neutrophils # (Auto) 7.7 x10^3uL Lymphocytes # (Auto) 0.9 x10^3/uL Monocytes # (Auto) 0.4 x10^3/uL Eosinophils # (Auto) 0.4 x10^3/uL Basophils # (Auto) 0.1 x10^3/uL Test 10/24/18 06:47 Glucose (Fingerstick) 126 mg/dL Imaging: CT A/P 10/21 IMPRESSION: PEG tube balloon appears to be located within the thickened anterior wall of the stomach and not truly within the lumen of the stomach. Therefore, recommend advancing the PEG tube further into the lumen of the stomach. There is no extravasation of contrast material into the intraperitoneal cavity or anterior abdominal wall however. No free air is seen. Jeffers catheter tip is seen within the urinary bladder which is nondistended. However the catheter balloon does not appear to be inflated. There is mild fecal retention within the right side of the colon. No obstructive bowel pattern is seen. Proximal right ureteral stone measuring 15 mm in length. Mild proximal right-sided hydronephrosis and hydroureter. Right renal atrophy is seen. Large staghorn calculus of the left kidney. Small bilateral pleural effusions and associated bibasilar atelectasis. CXR 10/24 IMPRESSION: Limited suggests atypical/viral infection/bronchitis. No significant interval change. PE: GEN: NAD HEENT/LUNGS: trach/vent HEART: RRR ABD: NABS, soft, PEG in place NEURO/PSYCH: A & O 3 A/P: Resp failure s/p trach and PEG -- Tolerating feeds. ?change to Reglan suspension JO-ANN CHONG October 24, 2018 09:26
[2018-10-24] MEDS ORDERED: POLYETHYLENE GLYCOL 3350 17 GM PACKET. PEG PRN (09:45)
[2018-10-24] MEDS: FLUCONAZOLE 100 MG TABLET. PO SCH (10:03)
[2018-10-24] MEDS: FUROSEMIDE 40 MG TABLET. PO SCH (10:03)
[2018-10-24] MEDS: ASPIRIN CHEWABLE 81 MG TABLET. PO SCH (10:03)
[2018-10-24] MEDS: POLYETHYLENE GLYCOL 3350 17 GM PACKET. PEG SCH (10:03)
[2018-10-24] MEDS: amLODIPine BESYLATE 5 MG TABLET PO SCH (10:03)
--- NOTE | 2018-10-24 11:26 | PDOC ---
PULMONARY PROGRESS NOTES Subjective PT A/A FOLLOWS COMMANDS S/P TRACH 10/16 Vitals Vital Signs Date Time Temp Pulse Resp B/P (MAP) Pulse Ox O2 Delivery O2 Flow Rate FiO2 10/24/18 10:03 88 168/72 10/24/18 10:00 30 98 Ventilator 10/24/18 07:00 98.1 98.1 HEENT: Other (nc at perrl nose throat clear, neck no thyromegaly no lad) Lungs: Other (decrease bs) Cardiovascular: S1, S2 Abdomen: Soft, Non-tender, Other (no mass) Neuro Exam: Alert Extremities: Other (trace edema) Skin: Warm Labs Laboratory Tests Test 10/22/18 13:48 10/22/18 17:58 10/22/18 21:35 10/23/18 00:00 Glucose (Fingerstick) 176 mg/dL (70-99) 176 mg/dL (70-99) 165 mg/dL (70-99) 155 mg/dL (70-99) Test 10/23/18 05:59 10/23/18 06:40 10/23/18 08:45 10/23/18 14:50 Glucose (Fingerstick) 142 mg/dL (70-99) 134 mg/dL (70-99) Sodium Level 142 mmol/L (136-145) Potassium Level 4.8 mmol/L (3.5-5.1) Chloride Level 104 mmol/L (98-107) Carbon Dioxide Level 30 mmol/L (21-32) Anion Gap 8 (6-14) Blood Urea Nitrogen 54 mg/dL (8-26) Creatinine 1.1 mg/dL (0.7-1.3) Estimated GFR (Cockcroft-Gault) 65.1 Glucose Level 134 mg/dL (70-99) Calcium Level 9.0 mg/dL (8.5-10.1) Phosphorus Level 3.0 mg/dL (2.6-4.7) Magnesium Level 2.1 mg/dL (1.8-2.4) White Blood Count 10.0 x10^3/uL (4.0-11.0) Red Blood Count 3.53 x10^6/uL (4.30-5.70) Hemoglobin 10.3 g/dL (13.0-17.5) Hematocrit 33.0 % (39.0-53.0) Mean Corpuscular Volume 93 fL (79-100) Mean Corpuscular Hemoglobin 29 pg (25-35) Mean Corpuscular Hemoglobin Concent 31 g/dL (31-37) Red Cell Distribution Width 16.7 % (11.5-14.5) Platelet Count 132 x10^3/uL (140-400) Neutrophils (%) (Auto) 80 % (31-73) Lymphocytes (%) (Auto) 10 % (24-48) Monocytes (%) (Auto) 6 % (0-9) Eosinophils (%) (Auto) 4 % (0-3) Basophils (%) (Auto) 0 % (0-3) Neutrophils # (Auto) 8.0 x10^3uL (1.8-7.7) Lymphocytes # (Auto) 1.0 x10^3/uL (1.0-4.8) Monocytes # (Auto) 0.5 x10^3/uL (0.0-1.1) Eosinophils # (Auto) 0.4 x10^3/uL (0.0-0.7) Basophils # (Auto) 0.0 x10^3/uL (0.0-0.2) Test 10/23/18 17:52 10/23/18 23:40 10/24/18 06:05 10/24/18 06:47 Glucose (Fingerstick) 139 mg/dL (70-99) 155 mg/dL (70-99) 126 mg/dL (70-99) White Blood Count 9.5 x10^3/uL (4.0-11.0) Red Blood Count 3.28 x10^6/uL (4.30-5.70) Hemoglobin 9.7 g/dL (13.0-17.5) Hematocrit 30.2 % (39.0-53.0) Mean Corpuscular Volume 92 fL (79-100) Mean Corpuscular Hemoglobin 30 pg (25-35) Mean Corpuscular Hemoglobin Concent 32 g/dL (31-37) Red Cell Distribution Width 16.7 % (11.5-14.5) Platelet Count 127 x10^3/uL (140-400) Neutrophils (%) (Auto) 81 % (31-73) Lymphocytes (%) (Auto) 10 % (24-48) Monocytes (%) (Auto) 4 % (0-9) Eosinophils (%) (Auto) 4 % (0-3) Basophils (%) (Auto) 1 % (0-3) Neutrophils # (Auto) 7.7 x10^3uL (1.8-7.7) Lymphocytes # (Auto) 0.9 x10^3/uL (1.0-4.8) Monocytes # (Auto) 0.4 x10^3/uL (0.0-1.1) Eosinophils # (Auto) 0.4 x10^3/uL (0.0-0.7) Basophils # (Auto) 0.1 x10^3/uL (0.0-0.2) Laboratory Tests Test 10/23/18 14:50 10/23/18 17:52 10/23/18 23:40 10/24/18 06:05 Glucose (Fingerstick) 134 mg/dL (70-99) 139 mg/dL (70-99) 155 mg/dL (70-99) White Blood Count 9.5 x10^3/uL (4.0-11.0) Red Blood Count 3.28 x10^6/uL (4.30-5.70) Hemoglobin 9.7 g/dL (13.0-17.5) Hematocrit 30.2 % (39.0-53.0) Mean Corpuscular Volume 92 fL (79-100) Mean Corpuscular Hemoglobin 30 pg (25-35) Mean Corpuscular Hemoglobin Concent 32 g/dL (31-37) Red Cell Distribution Width 16.7 % (11.5-14.5) Platelet Count 127 x10^3/uL (140-400) Neutrophils (%) (Auto) 81 % (31-73) Lymphocytes (%) (Auto) 10 % (24-48) Monocytes (%) (Auto) 4 % (0-9) Eosinophils (%) (Auto) 4 % (0-3) Basophils (%) (Auto) 1 % (0-3) Neutrophils # (Auto) 7.7 x10^3uL (1.8-7.7) Lymphocytes # (Auto) 0.9 x10^3/uL (1.0-4.8) Monocytes # (Auto) 0.4 x10^3/uL (0.0-1.1) Eosinophils # (Auto) 0.4 x10^3/uL (0.0-0.7) Basophils # (Auto) 0.1 x10^3/uL (0.0-0.2) Test 10/24/18 06:47 Glucose (Fingerstick) 126 mg/dL (70-99) Medications Active Scripts Medications Dose Route/Sig Max Daily Dose Days Date Category Proair Hfa (Albuterol Sulfate) 8.5 Gm Hfa.aer.ad 1 Puff INH PRN Q6HRS PRN 10/07/18 Reported Oxazepam 30 Mg Capsule 30 Mg PO QHS 10/07/18 Reported Comments cxr reviewed 10/24, trach, l effusion, basal atelectasis Impression . 1. Acute on chronic hypoxemic/ hypercapnic respiratory failure, multifactorial. 2. Acute exacerbation of chronic obstructive pulmonary disease. suspect severe COPD 3. Abnormal x-ray improved. 4. Gram-negative, possible gram-positive pneumonia. 5. No history given of diabetes, hypertension or renal failure. 6. History of alcohol intake, discontinued approximately 4 years ago. 7. Possible sepsis POA, improved 8. Positive mycoplasma serology 9. EF 40%, acute sys chf 10. S/P TRACH 10/16 Plan . WILL CONTINUE PS DURING DAY NOT READY FOR TRACH SHIELD TITRATE PS TO MAINTAIN VT 450 CC D/W RT/ RN CHECK ABG ON PS TRIAL TO ASSESS FOR PERSISTENT VENTILATORY FAILURE PT OT CXR DAILY WILL CONTINUE SUPPORT FOLLOW CARD REC CONTINUE ANTIBX PER ID DIURESE, MONITOR LABS DVT GI PROPH, pepcid, heparin sq ENTERAL FEEDING cct 30 min ENDER MUÑOZ MD October 24, 2018 11:26
[2018-10-24 12:02] LABS: BASE EXCESS ABG 5 mmol/L (-3-3); HCO3 ABG 30 mmol/L (21-28); PCO2 ABG 48 mmHg (35-46); PO2 ABG 79 mmHg (65-108); SAT O2 ABG 95 % (92-99)
--- NOTE | 2018-10-24 15:31 | NUR ---
SS following up with discharge planning. SS phoned and faxed clinical updates to [facility], ; fax [phone]. Pt is accepted pending insurance authorization.
[2018-10-24] MEDS: ONDANSETRON PF 4 MG/2 ML VIAL. IV PRN (15:59)
[2018-10-24 20:07] LABS: FIO2 ABG 35
[2018-10-24 20:11] LABS: FIO2 ABG 35
[2018-10-24] MEDS: ATORVASTATIN CALCIUM 10 MG TABLET. PO SCH (20:20)
[2018-10-24] MEDS: FAMOTIDINE 20 MG/2 ML VIAL IVP SCH (20:20)
[2018-10-24] MEDS: INSULIN GLARGINE 300 UNITS/3 ML INSULN.PEN. SQ SCH (20:55)
[2018-10-25] VITALS (24 sets, daily range): BP systolic 90–164; BP diastolic 45–83
[2018-10-25] MEDS: MORPHINE SULFATE 2 MG/ML VIAL. IV PRN ×5 (00:12→16:14)
[2018-10-25] MEDS: IPRATRPIUM/ALBUTEROL 0.5/2.5MG 3 ML NEBU. NEB SCH ×7 (03:15→23:28)
[2018-10-25] MEDS: INSULIN LISPRO 300 UNITS/3 ML INSULN.PEN. SQ SCH ×4 (05:03→18:16)
[2018-10-25] MEDS: HEPARIN for SUB-Q USE 5,000 UNIT/ML VIAL. SQ SCH ×2 (05:10→15:15)
--- NOTE | 2018-10-25 05:53 | NUR ---
Called Lab and spoke with Mayela and explained unable to draw blood out of PICC line this morning so petroleum laboratory technician will need to draw labs this morning.
--- NOTE | 2018-10-25 07:36 | PDOC ---
Infectious Disease Note Subjective: Subjective pt is awake,doing ok ROS: ROS Negative except for above. Vital Signs: Vital Signs Vital Signs Date Time Temp Pulse Resp B/P (MAP) Pulse Ox O2 Delivery O2 Flow Rate FiO2 10/25/18 06:11 63 22 98/60 (73) 100 Ventilator 10/25/18 05:17 Physical Exam: PHYSICAL EXAM GENERAL: awake, alert.comfortable HENT: normal conj. PERRL. Neck : trach, + LUNGS: Clear CV: S1 S2 irregular ABD: Obese, soft, NT, BS present has a PEG feeding running, PEG in place : Jeffers in place EXT: 1 + edema lower extremities, bilaterally. No cyanosis. SKIN: warm without rash [employer]: awake, no focal deficit Medications: Inpatient Meds: Current Medications Medications (Trade) Dose Ordered Sig/Eric Start Time Stop Time Status Last Admin Dose Admin Acetaminophen (Tylenol) 650 mg PRN Q6HRS PRN 10/07/18 12:45 10/22/18 20:27 650 MG Acetaminophen/ Hydrocodone Bitart (Lortab 5/325) 1 tab PRN Q6HRS PRN 10/23/18 09:15 Albuterol Sulfate (Ventolin Neb Soln) 2.5 mg PRN Q2HR PRN 10/07/18 15:00 Albuterol/ Ipratropium (Duoneb) 3 ml Q4HRS 10/22/18 08:00 10/25/18 03:15 3 ML Alteplase, Recombinant (Cathflo For Central Catheter Clearance) 1 mg 1X ONCE 10/19/18 16:45 10/19/18 16:48 DC 10/19/18 17:05 1 MG Amlodipine Besylate (Norvasc) 5 mg DAILY 10/12/18 12:30 10/24/18 10:03 5 MG Aspirin (Children'S Aspirin) 81 mg DAILYWBKFT 10/19/18 08:00 10/24/18 10:03 81 MG Aspirin (Ecotrin) 81 mg DAILYWBKFT 10/10/18 08:00 10/18/18 09:01 DC 10/18/18 08:39 81 MG Atorvastatin Calcium (Lipitor) 10 mg QHS 10/17/18 21:00 10/24/18 20:20 10 MG Atropine Sulfate (ATROPINE 0.5mg SYRINGE) 0.5 mg PRN Q5MIN PRN 10/20/18 15:15 UNV Bisacodyl (Dulcolax Supp) 10 mg PRN DAILY PRN 10/15/18 13:30 10/19/18 08:06 10 MG Budesonide (Pulmicort) 0.5 mg RTBID 10/22/18 08:00 10/24/18 21:04 0.5 MG Calcium Gluconate (Calcium Gluconate) 1,000 mg 1X ONCE 10/07/18 13:30 10/07/18 13:31 Cancel Calcium Gluconate 1000 mg/Sodium Chloride 110 ml @ 220 mls/hr 1X ONCE 10/07/18 15:00 10/07/18 15:29 DC 10/07/18 14:23 220 MLS/HR Dexmedetomidine HCl 200 mcg/ Sodium Chloride 50 ml @ 0 mls/hr CONT PRN 10/20/18 15:15 UNV Dextrose (Dextrose 50%-Water Syringe) 12.5 gm PRN Q15MIN PRN 10/07/18 12:45 Doxycycline Hyclate 100 mg/ Dextrose 100 ml @ 50 mls/hr Q12HR 10/09/18 13:00 10/24/18 07:56 DC 10/23/18 23:21 50 MLS/HR Etomidate (Amidate) 20 mg 1X ONCE 10/07/18 11:30 10/07/18 11:33 DC 10/07/18 11:01 20 MG Famotidine (Pepcid Vial) 20 mg QHS 10/08/18 21:00 10/24/18 20:20 20 MG Fentanyl Citrate (Fentanyl 2ml Vial) 100 mcg STK-MED ONCE 10/16/18 12:36 10/16/18 12:37 DC Fluconazole (Diflucan) 200 mg DAILY 10/20/18 11:00 10/24/18 10:03 200 MG Furosemide (Lasix) 40 mg DAILY 10/19/18 09:00 10/24/18 10:03 40 MG Glycopyrrolate (Robinul) 1 mg STK-MED ONCE 10/16/18 13:27 10/16/18 13:28 DC Heparin Sodium (Porcine) (Heparin Sodium) 5,000 unit Q8HRS 10/07/18 14:00 10/25/18 05:10 5,000 UNIT Hydralazine HCl (Apresoline Inj) 10 mg PRN Q4HRS PRN 10/12/18 11:45 10/24/18 00:36 10 MG Hydromorphone HCl (Dilaudid) 0.5 mg PRN Q10MIN PRN 10/16/18 07:00 10/17/18 06:59 DC Info (CONTRAST GIVEN -- Rx MONITORING) 1 each PRN DAILY PRN 10/21/18 20:00 10/23/18 19:59 DC Info (Tpn Per Pharmacy) 1 each PRN DAILY PRN 10/20/18 10:00 10/22/18 21:59 DC 10/22/18 12:16 1 EACH Insulin Glargine (Lantus) 10 units QHS 10/13/18 21:00 10/24/18 20:55 10 UNITS Insulin Human Lispro (HumaLOG) 0-9 UNITS Q6HRS 10/07/18 18:00 10/24/18 12:29 4 UNITS Insulin Human Regular (HumuLIN R VIAL) 10 unit 1X ONCE 10/07/18 12:45 10/07/18 12:46 DC 10/07/18 13:00 10 UNIT Iohexol (Omnipaque 240 Mg/ml) 30 ml 1X ONCE 10/21/18 20:00 10/21/18 20:01 DC 10/21/18 19:35 30 ML Iohexol (Omnipaque 300 Mg/ml) 75 ml 1X ONCE 10/21/18 20:00 10/21/18 20:01 DC 10/21/18 20:54 75 ML Lactobacillus Rhamnosus (Culturelle) 1 cap BID 10/08/18 09:00 10/09/18 15:58 DC Levofloxacin/ Dextrose 150 ml @ 100 mls/hr Q48H 10/09/18 12:00 10/09/18 12:00 DC Levofloxacin/ Dextrose (Levaquin Per Pharmacy) 1 each PRN DAILY PRN 10/07/18 12:45 10/08/18 07:33 DC Lidocaine HCl (Xylocaine-Mpf 1% 2ml Vial) 2 ml PRN 1X PRN 10/16/18 07:00 10/17/18 06:59 DC Linezolid/Dextrose 300 ml @ 300 mls/hr Q12HR 10/08/18 11:30 10/10/18 07:24 DC 10/09/18 20:58 300 MLS/HR Lisinopril (Prinivil) 10 mg DAILY 10/11/18 14:00 10/15/18 09:46 DC 10/14/18 08:03 10 MG Lorazepam (Ativan Inj) 2 mg PRN Q6HRS PRN 10/23/18 17:30 10/24/18 07:05 2 MG Lorazepam (Ativan) 1 mg PRN Q6HRS PRN 10/23/18 09:15 10/23/18 10:07 1 MG Meropenem 500 mg/ Sodium Chloride 50 ml @ 100 mls/hr Q8HRS 10/07/18 17:00 10/20/18 09:03 DC 10/20/18 05:36 100 MLS/HR Methylprednisolone Sodium Succinate (SOLU-Medrol 40MG VIAL) 40 mg DAILY 10/16/18 09:00 10/20/18 13:10 DC 10/20/18 08:05 40 MG Methylprednisolone Sodium Succinate (SOLU-Medrol 125MG VIAL) 125 mg 1X ONCE 10/07/18 12:00 10/07/18 12:01 DC 10/07/18 11:52 125 MG Metoclopramide HCl (Reglan Vial) 10 mg QIDACHS 10/20/18 16:30 10/24/18 20:19 10 MG Midazolam HCl (Versed) 2 mg STK-MED ONCE 10/16/18 12:36 10/16/18 12:37 DC Morphine Sulfate (Morphine Sulfate) 1 mg PRN Q10MIN PRN 10/16/18 07:00 10/17/18 06:59 DC Neostigmine Methylsulfate (Neostigmine Methylsulfate) 5 mg STK-MED ONCE 10/16/18 13:27 10/16/18 13:28 DC Norepinephrine Bitartrate 250 ml @ 1.875 mls/ hr CONT PRN 10/07/18 14:00 10/07/18 14:01 13.125 MLS/HR Ondansetron HCl (Zofran) 4 mg PRN Q6HRS PRN 10/16/18 07:00 10/17/18 06:59 DC Pantoprazole Sodium (PROTONIX VIAL for IV PUSH) 40 mg STK-MED ONCE 10/07/18 12:52 10/07/18 12:55 DC Polyethylene Glycol (miraLAX PACKET) 17 gm PRN DAILY PRN 10/24/18 09:45 Prochlorperazine Edisylate (Compazine) 5 mg PACU PRN PRN 10/16/18 07:00 10/17/18 06:59 DC Ringer's Solution 1,000 ml @ 50 mls/hr Q20H 10/17/18 07:00 10/17/18 18:59 DC Rocuronium Cambria (Zemuron) 50 mg STK-MED ONCE 10/16/18 12:36 10/16/18 12:37 DC Sevoflurane (Ultane) 30 ml STK-MED ONCE 10/16/18 13:36 10/16/18 13:37 DC Sodium Polystyrene Sulfonate (Kayexalate) 15 gm 1X ONCE 10/07/18 13:30 10/07/18 13:31 DC 10/07/18 14:10 15 GM Sodium Bicarbonate (Sodium Bicarb Adult 8.4% Syr) 50 meq 1X ONCE 10/07/18 12:45 10/07/18 12:46 DC 10/07/18 13:07 50 MEQ Sodium Chloride 10 meq/Potassium Acetate 50 meq/ Potassium Phosphate 15 mmol/ Magnesium Sulfate 8 meq/Calcium Gluconate 10 meq/ Multivitamins 10 ml/Chromium/ Copper/Manganese/ Seleni/Zn 1 ml/ Total Parenteral Nutrition/Amino Acids/Dextrose/ Fat Emulsion Intravenous 1,512 ml @ 63 mls/hr TPN CONT 10/21/18 22:00 10/22/18 21:59 DC 10/21/18 21:35 63 MLS/HR Sodium Chloride 20 meq/Potassium Acetate 50 meq/ Potassium Phosphate 13.6 mmol/Magnesium Sulfate 10 meq/ Calcium Gluconate 10 meq/ Multivitamins 10 ml/Chromium/ Copper/Manganese/ Seleni/Zn 1 ml/ Total Parenteral Nutrition/Amino Acids/Dextrose/ Fat Emulsion Intravenous 1,512 ml @ 63 mls/hr TPN CONT 10/20/18 22:00 10/21/18 21:59 DC 10/20/18 21:59 63 MLS/HR Succinylcholine Chloride (Anectine) 100 mg 1X ONCE 10/07/18 11:30 10/07/18 11:33 DC 10/07/18 11:01 100 MG Vancomycin HCl 250 ml @ 250 mls/hr 1X ONCE 10/07/18 12:00 10/07/18 12:59 DC 10/07/18 12:27 250 MLS/HR Labs: Lab Laboratory Tests Test 10/24/18 08:05 10/24/18 12:00 10/24/18 12:27 10/24/18 17:47 O2 Saturation 98 % (92-99) 95 % (92-99) Arterial Blood pH 7.42 (7.35-7.45) 7.42 (7.35-7.45) Arterial Blood pCO2 at Patient Temp 51 mmHg (35-46) 48 mmHg (35-46) Arterial Blood pO2 at Patient Temp 104 mmHg (65-108) 79 mmHg (65-108) Arterial Blood HCO3 33 mmol/L (21-28) 30 mmol/L (21-28) Arterial Blood Base Excess 7 mmol/L (-3-3) 5 mmol/L (-3-3) FiO2 35 35 Glucose (Fingerstick) 154 mg/dL (70-99) 141 mg/dL (70-99) Test 10/24/18 20:37 10/25/18 00:03 Glucose (Fingerstick) 133 mg/dL (70-99) 147 mg/dL (70-99) Micro micro reviewed Objective: Assessment: Fever - resolved Pneumonia + mycoplasma 10/08 - on Doxy 10/09. Sputum cult - routine raheel/ Strep and Legionella - neg UTI, POA staph sap NSTEMI Lactic acidosis - improved Allergy PCN w/ hives and throat swelling; erythromycin w/ hives. Leukocytosis - on steroids - better Hypotension, now off Levophed gtt Acute encephalopathy - improving Acute respiratory failure s/p intubation ALEX - better COPD, O2 dependent Large staghorn calculus lt kidney mild hydronephrosis Plan: Plan of Care observe off antibiotics awaiting transfer to [facility] D/W ENRIQUE CHAMBERS MD October 25, 2018 07:36
[2018-10-25] MEDS: BUDESONIDE 0.5 MG/2 ML NEBU. NEB SCH ×2 (08:00→19:43)
[2018-10-25 08:34] LABS: BASE EXCESS ABG 8 mmol/L (-3-3); HCO3 ABG 35 mmol/L (21-28); PCO2 ABG 58 mmHg (35-46); PO2 ABG 85 mmHg (65-108); SAT O2 ABG 96 % (92-99)
[2018-10-25 08:36] LABS: FIO2 ABG 35
--- NOTE | 2018-10-25 08:37 | PDOC ---
PROGRESS NOTES Chief Complaint Chief Complaint Acute on chronic hypercapnic and hypoxic respiratory failure s/p Trach and PEG End-stage COPD Clinical pneumonia MORBID OBESITY Possible sepsis UTI- Staphylococcus saprophyticus. Greater than 100,000 colony forming units per mL Pneumonia + mycoplasma 10/08 - on Doxy 10/09 azotemia ICU deconditioning Severe protein calorie malnutrition History of Present Illness History of Present Illness The patient is a 78-year-old male who was admitted on October 07, after being found down unresponsive. He apparently did not lose a pulse. He was intubated upon admission and remains on the ventilator since. He apparently has a history of severe COPD and has been oxygen dependent at home, although according to his , he is not been using his oxygen prior to admit. He has a history of lifelong heavy smoking 3ppd, but did quit 3 years ago. He was a prior heavy ETOH user, has also since quit this. He failed several weaning trials and is s/p tracheostomy and PEG placement on 10/17/2018. Patient was seen and examined in the ICU He has a trach (day 8) remains unable to speak, still is alert and able to communicate. Indicates neck pain PEG feeds back on at goal Vent set to spontaneous respirations 14 of pressure support 35% FiO2 Discussed with RN Has been less agitated with increased ativan, morphine and fentanyl requirements when has has large mucous plugs removed. With PEG hydrocodone seems to be more comfortable. He apparently has only had small stool smears, no large BM in the past 8 days. Will need LTAC for vent weaning 36 minutes CC time Vitals Vitals Vital Signs Date Time Temp Pulse Resp B/P (MAP) Pulse Ox O2 Delivery O2 Flow Rate FiO2 10/25/18 08:16 100 Ventilator 10/25/18 08:00 97.8 79 18 156/73 (100) 97.8 Physical Exam Physical Exam GENERAL: awake, alert.comfortable HENT: normal conj. PERRL. Neck : trach, + LUNGS: Clear CV: S1 S2 irregular ABD: Obese, soft, NT, BS present has a PEG feeding running, PEG in place : Jeffers in place EXT: 1 + edema lower extremities, bilaterally. No cyanosis. SKIN: warm without rash [employer]: awake, no focal deficit General: Alert, No acute distress, Other (Tracheostomy/Vent unable to speak) Heart: Regular rate, Normal S1, Normal S2 Lungs: Other (decrease bs) Abdomen: Soft, No tenderness Extremities: No cyanosis, Other (trace edema) Skin: No significant lesion Labs LABS Laboratory Tests Test 10/24/18 12:00 10/24/18 12:27 10/24/18 17:47 10/24/18 20:37 O2 Saturation 95 % (92-99) Arterial Blood pH 7.42 (7.35-7.45) Arterial Blood pCO2 at Patient Temp 48 mmHg (35-46) Arterial Blood pO2 at Patient Temp 79 mmHg (65-108) Arterial Blood HCO3 30 mmol/L (21-28) Arterial Blood Base Excess 5 mmol/L (-3-3) FiO2 35 Glucose (Fingerstick) 154 mg/dL (70-99) 141 mg/dL (70-99) 133 mg/dL (70-99) Test 10/25/18 00:03 10/25/18 08:30 Glucose (Fingerstick) 147 mg/dL (70-99) O2 Saturation 96 % (92-99) Arterial Blood pH 7.39 (7.35-7.45) Arterial Blood pCO2 at Patient Temp 58 mmHg (35-46) Arterial Blood pO2 at Patient Temp 85 mmHg (65-108) Arterial Blood HCO3 35 mmol/L (21-28) Arterial Blood Base Excess 8 mmol/L (-3-3) FiO2 35 Assessment and Plan Assessmemt and Plan Problems Medical Problems: (1) Acute respiratory distress Status: Acute (2) CAP (community acquired pneumonia) Status: Acute (3) CHF (congestive heart failure) Status: Acute (4) Elevated liver function tests Status: Acute (5) Elevated troponin I level Status: Acute (6) Hyperkalemia Status: Acute (7) Renal insufficiency Status: Acute (8) Sepsis Status: Acute (9) Unresponsiveness Status: Acute (10) Urinary tract infection Status: Acute Comment Review of Relevant I have reviewed the following items akbar (where applicable) has been applied. Labs Laboratory Tests Test 10/23/18 08:45 10/23/18 14:50 10/23/18 17:52 10/23/18 23:40 White Blood Count 10.0 x10^3/uL (4.0-11.0) Red Blood Count 3.53 x10^6/uL (4.30-5.70) Hemoglobin 10.3 g/dL (13.0-17.5) Hematocrit 33.0 % (39.0-53.0) Mean Corpuscular Volume 93 fL (79-100) Mean Corpuscular Hemoglobin 29 pg (25-35) Mean Corpuscular Hemoglobin Concent 31 g/dL (31-37) Red Cell Distribution Width 16.7 % (11.5-14.5) Platelet Count 132 x10^3/uL (140-400) Neutrophils (%) (Auto) 80 % (31-73) Lymphocytes (%) (Auto) 10 % (24-48) Monocytes (%) (Auto) 6 % (0-9) Eosinophils (%) (Auto) 4 % (0-3) Basophils (%) (Auto) 0 % (0-3) Neutrophils # (Auto) 8.0 x10^3uL (1.8-7.7) Lymphocytes # (Auto) 1.0 x10^3/uL (1.0-4.8) Monocytes # (Auto) 0.5 x10^3/uL (0.0-1.1) Eosinophils # (Auto) 0.4 x10^3/uL (0.0-0.7) Basophils # (Auto) 0.0 x10^3/uL (0.0-0.2) Glucose (Fingerstick) 134 mg/dL (70-99) 139 mg/dL (70-99) 155 mg/dL (70-99) Test 10/24/18 06:05 10/24/18 06:47 10/24/18 08:05 10/24/18 12:00 White Blood Count 9.5 x10^3/uL (4.0-11.0) Red Blood Count 3.28 x10^6/uL (4.30-5.70) Hemoglobin 9.7 g/dL (13.0-17.5) Hematocrit 30.2 % (39.0-53.0) Mean Corpuscular Volume 92 fL (79-100) Mean Corpuscular Hemoglobin 30 pg (25-35) Mean Corpuscular Hemoglobin Concent 32 g/dL (31-37) Red Cell Distribution Width 16.7 % (11.5-14.5) Platelet Count 127 x10^3/uL (140-400) Neutrophils (%) (Auto) 81 % (31-73) Lymphocytes (%) (Auto) 10 % (24-48) Monocytes (%) (Auto) 4 % (0-9) Eosinophils (%) (Auto) 4 % (0-3) Basophils (%) (Auto) 1 % (0-3) Neutrophils # (Auto) 7.7 x10^3uL (1.8-7.7) Lymphocytes # (Auto) 0.9 x10^3/uL (1.0-4.8) Monocytes # (Auto) 0.4 x10^3/uL (0.0-1.1) Eosinophils # (Auto) 0.4 x10^3/uL (0.0-0.7) Basophils # (Auto) 0.1 x10^3/uL (0.0-0.2) Glucose (Fingerstick) 126 mg/dL (70-99) O2 Saturation 98 % (92-99) 95 % (92-99) Arterial Blood pH 7.42 (7.35-7.45) 7.42 (7.35-7.45) Arterial Blood pCO2 at Patient Temp 51 mmHg (35-46) 48 mmHg (35-46) Arterial Blood pO2 at Patient Temp 104 mmHg (65-108) 79 mmHg (65-108) Arterial Blood HCO3 33 mmol/L (21-28) 30 mmol/L (21-28) Arterial Blood Base Excess 7 mmol/L (-3-3) 5 mmol/L (-3-3) FiO2 35 35 Test 10/24/18 12:27 10/24/18 17:47 10/24/18 20:37 10/25/18 00:03 Glucose (Fingerstick) 154 mg/dL (70-99) 141 mg/dL (70-99) 133 mg/dL (70-99) 147 mg/dL (70-99) Test 10/25/18 08:30 O2 Saturation 96 % (92-99) Arterial Blood pH 7.39 (7.35-7.45) Arterial Blood pCO2 at Patient Temp 58 mmHg (35-46) Arterial Blood pO2 at Patient Temp 85 mmHg (65-108) Arterial Blood HCO3 35 mmol/L (21-28) Arterial Blood Base Excess 8 mmol/L (-3-3) FiO2 35 Laboratory Tests Test 10/24/18 12:00 10/24/18 12:27 10/24/18 17:47 10/24/18 20:37 O2 Saturation 95 % (92-99) Arterial Blood pH 7.42 (7.35-7.45) Arterial Blood pCO2 at Patient Temp 48 mmHg (35-46) Arterial Blood pO2 at Patient Temp 79 mmHg (65-108) Arterial Blood HCO3 30 mmol/L (21-28) Arterial Blood Base Excess 5 mmol/L (-3-3) FiO2 35 Glucose (Fingerstick) 154 mg/dL (70-99) 141 mg/dL (70-99) 133 mg/dL (70-99) Test 10/25/18 00:03 10/25/18 08:30 Glucose (Fingerstick) 147 mg/dL (70-99) O2 Saturation 96 % (92-99) Arterial Blood pH 7.39 (7.35-7.45) Arterial Blood pCO2 at Patient Temp 58 mmHg (35-46) Arterial Blood pO2 at Patient Temp 85 mmHg (65-108) Arterial Blood HCO3 35 mmol/L (21-28) Arterial Blood Base Excess 8 mmol/L (-3-3) FiO2 35 Microbiology 10/07/18 Blood Culture - Final, Complete NO GROWTH AFTER 5 DAYS 10/08/18 - Final, Complete 10/08/18 - Final, Complete 10/08/18 - Final, Complete 10/08/18 - Final, Complete 10/08/18 - Final, Complete 10/08/18 Gram Stain Evaluation - Final, Complete 10/08/18 Sputum Culture - Final, Complete 10/08/18 Sputum Result 1 - Final, Complete 10/07/18 Urine Culture - Final, Complete 10/07/18 Urine Culture Result 1 (ELEN) - Final, Complete 10/07/18 Antimicrobic Susceptibility - Final, Complete Medications Current Medications Sodium Chloride 1,000 ml @ 1,000 mls/hr Q1H IV Last administered on 10/07/18at 11:27; Start 10/07/18 at 10:52; Stop 10/07/18 at 11:51; Status DC Midazolam HCl 100 ml @ 1 mls/hr 1X ONCE IV Last administered on 10/07/18at 11:20; Start 10/07/18 at 11:15; Stop 10/09/18 at 15:55; Status DC Etomidate (Amidate) 20 mg STK-MED ONCE IV ; Start 10/07/18 at 11:13; Stop 10/07/18 at 11:14; Status DC Succinylcholine Chloride (Anectine) 200 mg STK-MED ONCE .ROUTE ; Start 10/07/18 at 11:13; Stop 10/07/18 at 11:14; Status DC Etomidate (Amidate) 20 mg 1X ONCE IV Last administered on 10/07/18at 11:01; Start 10/07/18 at 11:30; Stop 10/07/18 at 11:33; Status DC Succinylcholine Chloride (Anectine) 100 mg 1X ONCE IV Last administered on 10/07/18at 11:01; Start 10/07/18 at 11:30; Stop 10/07/18 at 11:33; Status DC Albuterol Sulfate (Ventolin Neb Soln) 10 mg 1X ONCE CONT NEB ; Start 10/07/18 at 12:00; Stop 10/07/18 at 12:01; Status DC Methylprednisolone Sodium Succinate (SOLU-Medrol 125MG VIAL) 125 mg 1X ONCE IV Last administered on 10/07/18at 11:52; Start 10/07/18 at 12:00; Stop 10/07/18 at 12:01; Status DC Vancomycin HCl 250 ml @ 250 mls/hr 1X ONCE IV Last administered on 10/07/18at 12:27; Start 10/07/18 at 12:00; Stop 10/07/18 at 12:59; Status DC Levofloxacin/ Dextrose 150 ml @ 100 mls/hr 1X ONCE IV Last administered on 10/07/18at 12:28; Start 10/07/18 at 12:00; Stop 10/07/18 at 13:29; Status DC Sodium Chloride 1,000 ml @ 1,000 mls/hr 1X ONCE IV Last administered on 10/07/18at 12:57; Start 10/07/18 at 12:45; Stop 10/07/18 at 13:44; Status DC Sodium Chloride 1,000 ml @ 1,000 mls/hr 1X ONCE IV Last administered on 10/07/18at 12:58; Start 10/07/18 at 12:45; Stop 10/07/18 at 13:44; Status DC Dextrose (Dextrose 50%-Water Syringe) 25 gm 1X ONCE IV Last administered on 10/07/18at 12:59; Start 10/07/18 at 12:45; Stop 10/07/18 at 12:46; Status DC Insulin Human Regular (HumuLIN R VIAL) 10 unit 1X ONCE IV Last administered on 10/07/18at 13:00; Start 10/07/18 at 12:45; Stop 10/07/18 at 12:46; Status DC Sodium Bicarbonate (Sodium Bicarb Adult 8.4% Syr) 50 meq 1X ONCE IV Last administered on 10/07/18at 13:07; Start 10/07/18 at 12:45; Stop 10/07/18 at 12:46; Status DC Sodium Chloride 1,000 ml @ 100 mls/hr Q10H IV ; Start 10/07/18 at 16:00; Stop 10/07/18 at 16:00; Status DC Pantoprazole Sodium (PROTONIX VIAL for IV PUSH) 40 mg DAILYAC IVP Last administered on 10/08/18at 08:25; Start 10/07/18 at 13:30; Stop 10/08/18 at 09:54; Status DC Pantoprazole Sodium (PROTONIX VIAL for IV PUSH) 40 mg 1X ONCE IVP ; Start 10/07/18 at 12:45; Stop 10/07/18 at 12:46; Status UNV Heparin Sodium (Porcine) (Heparin Sodium) 5,000 unit Q8HRS SQ Last administered on 10/25/18at 05:10; Start 10/07/18 at 14:00 Levofloxacin/ Dextrose (Levaquin Per Pharmacy) 1 each PRN DAILY PRN MC SEE COMMENTS; Start 10/07/18 at 12:45; Stop 10/08/18 at 07:33; Status DC Insulin Human Lispro (HumaLOG) 0-9 UNITS TIDWMEALS SQ ; Start 10/07/18 at 17:00; Stop 10/07/18 at 17:00; Status DC Dextrose (Dextrose 50%-Water Syringe) 12.5 gm PRN Q15MIN PRN IV SEE COMMENTS; Start 10/07/18 at 12:45 Albuterol/ Ipratropium (Duoneb) 3 ml RTQID NEB ; Start 10/07/18 at 16:00; Status Cancel Methylprednisolone Sodium Succinate (SOLU-Medrol 40MG VIAL) 40 mg Q8HRS IV Last administered on 10/14/18 05:48; Start 10/07/18 at 22:00; Stop 10/14/18 at 09:29; Status DC Acetaminophen (Tylenol) 650 mg PRN Q6HRS PRN PEG MILD PAIN / TEMP Last administered on 10/22/18 20:27; Start 10/07/18 at 12:45 Morphine Sulfate (Morphine Sulfate) 2 mg PRN Q2HR PRN IV PAIN, 1ST CHOICE Last administered on 10/25/18 04:58; Start 10/07/18 at 12:45 Ondansetron HCl (Zofran) 4 mg PRN Q6HRS PRN IV NAUSEA/VOMITING Last administered on 10/24/18 15:59; Start 10/07/18 at 12:45 Norepinephrine Bitartrate 250 ml @ 1.875 mls/ hr CONT PRN IV SEE I/O RECORD Last administered on 10/07/18 14:01; Start 10/07/18 at 14:00 Sodium Chloride 1,000 ml @ 150 mls/hr Q6H40M IV Last administered on 10/08/18at 15:09; Start 10/07/18 at 14:00; Stop 10/08/18 at 13:59; Status DC Calcium Gluconate (Calcium Gluconate) 1,000 mg 1X ONCE IVP ; Start 10/07/18 at 13:30; Stop 10/07/18 at 13:31; Status Cancel Sodium Polystyrene Sulfonate (Kayexalate) 15 gm 1X ONCE PO Last administered on 10/07/18at 14:10; Start 10/07/18 at 13:30; Stop 10/07/18 at 13:31; Status DC Pantoprazole Sodium (PROTONIX VIAL for IV PUSH) 40 mg STK-MED ONCE IVP ; Start 10/07/18 at 12:52; Stop 10/07/18 at 12:55; Status DC Levofloxacin/ Dextrose 150 ml @ 100 mls/hr Q48H IV ; Start 10/09/18 at 12:00; Stop 10/09/18 at 12:00; Status DC Calcium Gluconate 1000 mg/Sodium Chloride 110 ml @ 220 mls/hr 1X ONCE IV Last administered on 10/07/18at 14:23; Start 10/07/18 at 15:00; Stop 10/07/18 at 15:29; Status DC Sodium Chloride 1,000 ml @ 1,000 mls/hr 1X ONCE IV Last administered on 10/07/18at 14:50; Start 10/07/18 at 15:00; Stop 10/07/18 at 15:59; Status DC Sodium Chloride 1,000 ml @ 999 mls/hr 1X ONCE IV ; Start 10/07/18 at 15:00; Stop 10/07/18 at 16:00; Status DC Albuterol Sulfate (Ventolin Neb Soln) 2.5 mg PRN Q2HR PRN NEB [id number]; Start 10/07/18 at 15:00 Albuterol/ Ipratropium (Duoneb) 3 ml RTQID NEB Last administered on 10/21/18at 19:45; Start 10/07/18 at 16:00; Stop 10/22/18 at 06:29; Status DC Insulin Human Lispro (HumaLOG) 0-9 UNITS Q6HRS SQ Last administered on 10/24/18at 12:29; Start 10/07/18 at 18:00 Meropenem 500 mg/ Sodium Chloride 50 ml @ 100 mls/hr Q8HRS IV Last administered on 10/20/18at 05:36; Start 10/07/18 at 17:00; Stop 10/20/18 at 09:03; Status DC Midazolam HCl 100 ml @ 5 mls/hr CONT PRN IV SEE I/O RECORD Last administered on 10/18/18at 18:44; Start 10/08/18 at 04:15; Stop 10/23/18 at 07:49; Status DC Lactobacillus Rhamnosus (Culturelle) 1 cap BID PO ; Start 10/08/18 at 09:00; Stop 10/09/18 at 15:58; Status DC Famotidine (Pepcid Vial) 20 mg QHS IVP Last administered on 10/24/18at 20:20; Start 10/08/18 at 21:00 Linezolid/Dextrose 300 ml @ 300 mls/hr Q12HR IV Last administered on 10/09/18at 20:58; Start 10/08/18 at 11:30; Stop 10/10/18 at 07:24; Status DC Doxycycline Hyclate 100 mg/ Dextrose 100 ml @ 50 mls/hr Q12HR IV Last administered on 10/23/18 23:21; Start 10/09/18 at 13:00; Stop 10/24/18 at 07:56; Status DC Aspirin (Ecotrin) 81 mg DAILYWBKFT PO Last administered on 10/18/18 08:39; Start 10/10/18 at 08:00; Stop 10/18/18 at 09:01; Status DC Furosemide (Lasix) 40 mg 1X ONCE IVP Last administered on 10/11/18 08:36; Start 10/11/18 at 09:00; Stop 10/11/18 at 09:01; Status DC Lisinopril (Prinivil) 10 mg DAILY PO Last administered on 10/14/18 08:03; Start 10/11/18 at 14:00; Stop 10/15/18 at 09:46; Status DC Furosemide (Lasix) 40 mg DAILY IVP Last administered on 10/18/18 08:40; Start 10/12/18 at 12:30; Stop 10/18/18 at 14:22; Status DC Amlodipine Besylate (Norvasc) 5 mg DAILY PO Last administered on 10/24/18at 10:03; Start 10/12/18 at 12:30 Hydralazine HCl (Apresoline Inj) 10 mg PRN Q4HRS PRN IVP ELEVATED BP, SEE COMMENTS Last administered on 10/24/18at 00:36; Start 10/12/18 at 11:45 Insulin Glargine (Lantus) 10 units QHS SQ Last administered on 10/24/18at 20:55; Start 10/13/18 at 21:00 Ondansetron HCl (Zofran) 4 mg PRN Q6HRS PRN IV NAUSEA/VOMITING; Start 10/16/18 at 07:00; Stop 10/17/18 at 06:59; Status DC Fentanyl Citrate (Fentanyl 2ml Vial) 25 mcg PRN Q5MIN PRN IV MILD PAIN 1-3; Start 10/16/18 at 07:00; Stop 10/17/18 at 06:59; Status DC Fentanyl Citrate (Fentanyl 2ml Vial) 50 mcg PRN Q5MIN PRN IV MODERATE TO SEVERE PAIN Last administered on 10/17/18at 00:36; Start 10/16/18 at 07:00; Stop 10/17/18 at 06:59; Status DC Morphine Sulfate (Morphine Sulfate) 1 mg PRN Q10MIN PRN IV SEVERE PAIN 7-10; Start 10/16/18 at 07:00; Stop 10/17/18 at 06:59; Status DC Ringer's Solution 1,000 ml @ 30 mls/hr Q24H IV ; Start 10/16/18 at 07:00; Stop 10/16/18 at 18:59; Status DC Lidocaine HCl (Xylocaine-Mpf 1% 2ml Vial) 2 ml PRN 1X PRN ID PRIOR TO IV START; Start 10/16/18 at 07:00; Stop 10/17/18 at 06:59; Status DC Hydromorphone HCl (Dilaudid) 0.5 mg PRN Q10MIN PRN IV SEV PAIN, Second choice; Start 10/16/18 at 07:00; Stop 10/17/18 at 06:59; Status DC Prochlorperazine Edisylate (Compazine) 5 mg PACU PRN PRN IV NAUSEA, MRX1; Start 10/16/18 at 07:00; Stop 10/17/18 at 06:59; Status DC Fentanyl Citrate (Fentanyl 2ml Vial) 50 mcg PRN Q2HR PRN IV PAIN, 2ND CHOICE Last administered on 10/23/18at 06:51; Start 10/14/18 at 00:30; Stop 10/23/18 at 09:05; Status DC Methylprednisolone Sodium Succinate (SOLU-Medrol 40MG VIAL) 40 mg Q12HR IV Last administered on 10/15/18at 08:28; Start 10/14/18 at 21:00; Stop 10/15/18 at 09:16; Status DC Methylprednisolone Sodium Succinate (SOLU-Medrol 40MG VIAL) 40 mg DAILY IV Last administered on 10/20/18at 08:05; Start 10/16/18 at 09:00; Stop 10/20/18 at 13:10; Status DC Sodium Chloride 500 ml @ 500 mls/hr 1X ONCE IV Last administered on 10/15/18at 09:59; Start 10/15/18 at 09:30; Stop 10/15/18 at 10:29; Status DC Sodium Chloride 1,000 ml @ 75 mls/hr [id number] IV Last administered on 10/17/18at 05:19; Start 10/15/18 at 11:45; Stop 10/17/18 at 17:11; Status DC Bisacodyl (Dulcolax Supp) 10 mg PRN DAILY PRN AL CONSTIPATION Last administered on 10/19/18at 08:06; Start 10/15/18 at 13:30 Midazolam HCl (Versed) 2 mg STK-MED ONCE .ROUTE ; Start 10/16/18 at 12:36; Stop 10/16/18 at 12:37; Status DC Fentanyl Citrate (Fentanyl 2ml Vial) 100 mcg STK-MED ONCE .ROUTE ; Start 10/16/18 at 12:36; Stop 10/16/18 at 12:37; Status DC Rocuronium [place] (Zemuron) 50 mg STK-MED ONCE .ROUTE ; Start 10/16/18 at 12:36; Stop 10/16/18 at 12:37; Status DC Neostigmine Methylsulfate (Neostigmine Methylsulfate) 5 mg STK-MED ONCE .ROUTE ; Start 10/16/18 at 13:27; Stop 10/16/18 at 13:28; Status DC Glycopyrrolate (Robinul) 1 mg STK-MED ONCE .ROUTE ; Start 10/16/18 at 13:27; Stop 10/16/18 at 13:28; Status DC Sevoflurane (Ultane) 30 ml STK-MED ONCE IH ; Start 10/16/18 at 13:36; Stop 10/16/18 at 13:37; Status DC Ringer's Solution 1,000 ml @ 50 mls/hr Q20H IV ; Start 10/17/18 at 07:00; Stop 10/17/18 at 18:59; Status DC Atorvastatin Calcium (Lipitor) 10 mg QHS PO Last administered on 10/24/18at 20:20; Start 10/17/18 at 21:00 Sodium Chloride 1,000 ml @ 75 mls/hr [id number] IV Last administered on 10/18/18at 08:48; Start 10/17/18 at 17:15; Stop 10/18/18 at 14:22; Status DC Aspirin (Children'S Aspirin) 81 mg DAILYWBKFT PO Last administered on 10/24/18at 10:03; Start 10/19/18 at 08:00 Furosemide (Lasix) 40 mg DAILY PO Last administered on 10/24/18 10:03; Start 10/19/18 at 09:00 Metoclopramide HCl (Reglan Vial) 5 mg QIDACHS IV Last administered on 10/20/18at 11:09; Start 10/19/18 at 11:30; Stop 10/20/18 at 12:42; Status DC Alteplase, Recombinant (Cathflo For Central Catheter Clearance) 1 mg 1X ONCE INT CAT Last administered on 10/19/18at 17:05; Start 10/19/18 at 16:45; Stop 10/19/18 at 16:48; Status DC Alteplase, Recombinant (Cathflo For Central Catheter Clearance) 1 mg 1X ONCE INT CAT Last administered on 10/19/18at 17:05; Start 10/19/18 at 16:45; Stop 10/19/18 at 16:48; Status DC Fluconazole (Diflucan) 200 mg DAILY PO Last administered on 10/24/18at 10:03; Start 10/20/18 at 11:00 Info (Tpn Per Pharmacy) 1 each PRN DAILY PRN MC SEE COMMENTS Last administered on 10/22/18at 12:16; Start 10/20/18 at 10:00; Stop 10/22/18 at 21:59; Status DC Lorazepam (Ativan Inj) 1 mg PRN Q6HRS PRN IV ANXIETY / AGITATION Last admini stered on 10/23/18at 10:07; Start 10/20/18 at 10:30; Stop 10/23/18 at 17:29; Status DC Sodium Chloride 20 meq/Potassium Acetate 50 meq/ Potassium Phosphate 13.6 mmol/Magnesium Sulfate 10 meq/ Calcium Gluconate 10 meq/ Multivitamins 10 ml/Chromium/ Copper/Manganese/ Seleni/Zn 1 ml/ Total Parenteral Nutrition/Amino Acids/Dextrose/ Fat Emulsion Intravenous 1,512 ml @ 63 mls/hr TPN CONT IV Last administered on 10/20/18at 21:59; Start 10/20/18 at 22:00; Stop 10/21/18 at 21:59; Status DC Metoclopramide HCl (Reglan Vial) 10 mg QIDACHS IV Last administered on 10/24/18at 20:19; Start 10/20/18 at 16:30 Dexmedetomidine HCl 200 mcg/ Sodium Chloride 50 ml @ 0 mls/hr CONT PRN IV PER PROTOCOL; Start 10/20/18 at 15:15; Status UNV Sodium Chloride 500 ml @ 500 mls/hr 1X PRN PRN IV SEE COMMENTS; Start 10/20/18 at 15:15; Status UNV Atropine Sulfate (ATROPINE 0.5mg SYRINGE) 0.5 mg PRN Q5MIN PRN IV SEE COMMENTS; Start 10/20/18 at 15:15; Status UNV Sodium Chloride 10 meq/Potassium Acetate 50 meq/ Potassium Phosphate 15 mmol/ Magnesium Sulfate 8 meq/Calcium Gluconate 10 meq/ Multivitamins 10 ml/Chromium/ Copper/Manganese/ Seleni/Zn 1 ml/ Total Parenteral Nutrition/Amino Acids/Dextrose/ Fat Emulsion Intravenous 1,512 ml @ 63 mls/hr TPN CONT IV Last administered on 10/21/18at 21:35; Start 10/21/18 at 22:00; Stop 10/22/18 at 21:59; Status DC Iohexol (Omnipaque 300 Mg/ml) 75 ml 1X ONCE IV Last administered on 10/21/18at 20:54; Start 10/21/18 at 20:00; Stop 10/21/18 at 20:01; Status DC Iohexol (Omnipaque 240 Mg/ml) 30 ml 1X ONCE PO Last administered on 10/21/18at 19:35; Start 10/21/18 at 20:00; Stop 10/21/18 at 20:01; Status DC Info (CONTRAST GIVEN -- Rx MONITORING) 1 each PRN DAILY PRN MC SEE COMMENTS; Start 10/21/18 at 20:00; Stop 10/23/18 at 19:59; Status DC Albuterol/ Ipratropium (Duoneb) 3 ml Q4HRS NEB Last administered on 10/25/18at 08:16; Start 10/22/18 at 08:00 Budesonide (Pulmicort) 0.5 mg RTBID NEB Last administered on 10/25/18at 08:00; Start 10/22/18 at 08:00 Lorazepam (Ativan) 1 mg PRN Q6HRS PRN PEG ANXIETY / AGITATION Last administered on 10/23/18at 10:07; Start 10/23/18 at 09:15 Acetaminophen/ Hydrocodone Bitart (Lortab 5/325) 1 tab PRN Q6HRS PRN PO MODERATE-SEVERE PAIN; Start 10/23/18 at 09:15 Lorazepam (Ativan Inj) 2 mg PRN Q6HRS PRN IV ANXIETY / AGITATION Last administered on 10/24/18at 07:05; Start 10/23/18 at 17:30 Polyethylene Glycol (miraLAX PACKET) 17 gm DAILY PEG Last administered on 10/24/18at 10:03; Start 10/24/18 at 10:00 Polyethylene Glycol (miraLAX PACKET) 17 gm PRN DAILY PRN PEG CONSTIPATION; Start 10/24/18 at 09:45 Active Scripts Active Reported Proair Hfa (Albuterol Sulfate) 8.5 Gm Hfa.aer.ad 1 Puff INH PRN Q6HRS PRN Oxazepam 30 Mg Capsule 30 Mg PO QHS Vitals/I & O Vital Sign - Last 24 Hours 10/24/18 10/24/18 10/24/18 10/24/18 09:00 09:30 09:55 10:00 Pulse 88 92 Resp 28 30 B/P (MAP) 168/72 (104) 185/67 (106) Pulse Ox 98 98 98 O2 Delivery Ventilator Ventilator Ventilator Ventilator 10/24/18 10/24/18 10/24/18 10/24/18 10:03 11:00 11:10 12:00 Temp 98.6 98.6 Pulse 88 70 Resp 16 B/P (MAP) 168/72 85/54 (64) Pulse Ox 99 99 O2 Delivery Ventilator Ventilator Mechanical Ventilator 10/24/18 10/24/18 10/24/18 10/24/18 12:00 12:05 13:00 14:00 Pulse 80 76 70 Resp 21 22 7 B/P (MAP) 96/70 (79) 110/56 (74) 99/50 (66) Pulse Ox 100 99 99 O2 Delivery Ventilator Ventilator Ventilator Ventilator 10/24/18 10/24/18 10/24/18 10/24/18 14:10 15:00 15:25 16:00 Temp 98.5 98.5 Pulse 82 82 Resp 12 12 B/P (MAP) 103/60 (74) 136/66 (89) Pulse Ox 99 98 99 O2 Delivery Ventilator Ventilator Ventilator Ventilator 10/24/18 10/24/18 10/24/18 10/24/18 16:00 17:00 17:20 17:50 Pulse 87 Resp B/P (MAP) 153/81 (105) Pulse Ox 98 99 98 O2 Delivery Mechanical Ventilator Ventilator Ventilator Ventilator 10/24/18 10/24/18 10/24/18 10/24/18 18:32 19:02 19:20 19:22 Pulse 90 82 86 Resp 22 22 B/P (MAP) 103/80 (88) 180/61 (100) 189/82 (117) Pulse Ox 98 99 98 99 O2 Delivery Ventilator Ventilator Ventilator Ventilator 10/24/18 10/24/18 10/24/18 10/24/18 19:32 20:00 20:19 21:04 Pulse 86 Resp B/P (MAP) 151/88 (109) Pulse Ox 99 99 99 O2 Delivery Ventilator Mechanical Ventilator Ventilator Ventilator 10/24/18 10/24/18 10/24/18 10/24/18 21:07 21:34 22:20 23:16 Temp 97.8 97.8 Pulse 89 79 70 68 Resp 22 22 B/P (MAP) 131/65 (87) 104/57 (73) 122/60 (80) 97/56 (70) Pulse Ox 99 100 99 97 O2 Delivery Ventilator Ventilator Ventilator Ventilator 10/24/18 10/25/18 10/25/18 10/25/18 23:59 00:00 00:12 00:24 Temp 98.5 98.5 Pulse 89 Resp B/P (MAP) 135/60 (85) Pulse Ox 99 99 97 O2 Delivery Mechanical Ventilator Ventilator Ventilator Ventilator 10/25/18 10/25/18 10/25/18 10/25/18 01:39 02:11 02:15 03:13 Temp 97.6 97.6 Pulse 84 87 72 Resp 22 22 B/P (MAP) 90/54 (66) 143/58 (86) 99/45 (63) Pulse Ox 100 100 100 100 O2 Delivery Ventilator Ventilator Ventilator Ventilator 10/25/18 10/25/18 10/25/18 10/25/18 03:15 04:00 04:58 05:11 Resp 22 Pulse Ox 100 100 O2 Delivery Ventilator Mechanical Ventilator Mechanical Ventilator 10/25/18 10/25/18 10/25/18 10/25/18 05:17 05:28 06:11 07:00 Temp 97.9 97.9 Pulse 83 63 59 Resp 22 22 22 17 B/P (MAP) 160/77 (104) 98/60 (73) 148/76 (100) Pulse Ox 94 94 100 97 O2 Delivery Ventilator Ventilator Ventilator Room Air 10/25/18 10/25/18 10/25/18 08:00 08:00 08:16 Temp 97.8 97.8 Pulse 79 Resp 18 B/P (MAP) 156/73 (100) Pulse Ox 100 100 O2 Delivery Tracheal Collar Mechanical Ventilator Ventilator Intake and Output 10/24/18 10/24/18 10/25/18 14:59 22:59 06:59 Intake Total 250 ml 1239 ml 573 ml Output Total 800 ml 650 ml 800 ml Balance -550 ml 589 ml -227 ml OSMANI STEVENS MD October 25, 2018 08:37
[2018-10-25] MEDS ORDERED: LACTULOSE 20 GM/30 ML SOLUTION. PO PRN (08:45)
[2018-10-25] MEDS: POLYETHYLENE GLYCOL 3350 17 GM PACKET. PEG SCH (09:12)
[2018-10-25] MEDS: FUROSEMIDE 40 MG TABLET. PO SCH (09:13)
[2018-10-25] MEDS: FLUCONAZOLE 100 MG TABLET. PO SCH (09:13)
[2018-10-25] MEDS: ASPIRIN CHEWABLE 81 MG TABLET. PO SCH (09:13)
[2018-10-25] MEDS: HYDROcodone/APAP 5/325MG 1 TAB TABLET PO PRN (09:13)
[2018-10-25] MEDS: amLODIPine BESYLATE 5 MG TABLET PO SCH (09:14)
[2018-10-25 09:15] LABS: BASO # 0.1 x10^3/uL (0.0-0.2); BASO % 1 % (0-3); EOS # 0.5 x10^3/uL (0.0-0.7); EOS % 5 % (0-3); HEMATOCRIT 31.6 % (39.0-53.0); HEMOGLOBIN 10.2 g/dL (13.0-17.5); LYMPH # 1.8 x10^3/uL (1.0-4.8); LYMPH % 18 % (24-48); MEAN CORPUSCULAR HEMOGLOBIN 30 pg (25-35); MEAN CORPUSCULAR HGB CONC 32 g/dL (31-37); MEAN CORPUSCULAR VOLUME 92 fL (79-100); MONO # 0.7 x10^3/uL (0.0-1.1); MONO % 7 % (0-9); NEUT % 70 % (31-73); PLATELET COUNT 138 x10^3/uL (140-400); RED BLOOD COUNT 3.42 x10^6/uL (4.30-5.70); RED CELL DISTRIBUTION WIDTH 16.9 % (11.5-14.5)
--- NOTE | 2018-10-25 09:36 | RAD ---
KUB History: No bowel movement since 10/16/2018 Comparison: October 21, 2018 CT abdomen pelvis exam and October 20, 2018 KUB Findings: 2 supine AP portable views of the abdomen are submitted. There is retained oral contrast throughout the nondilated colon. There is some gas distention of the stomach, gastrostomy present. No gas dilated small bowel is identified. Exam is insufficient for the evaluation for free air. There are 3 cannulated screws of the proximal left femur. Impression: 1. There is retained oral contrast throughout the nondilated colon. There is some gas distention of stomach. Electronically signed by: Dago Jeffery MD (10/25/2018 9:32 AM) [id number]
--- NOTE | 2018-10-25 10:14 | PDOC ---
Subjective: Subjective: Has a headache. Denies abd pain. Objective: Objective: Reviewed w/ RN and Dr. Jhaveri earlier this morning - tolerating tube feeds, has had smears of stool, plans for KUB. Vital Signs: Vital Signs Date Time Temp Pulse Resp B/P (MAP) Pulse Ox O2 Delivery O2 Flow Rate FiO2 10/25/18 09:14 85 150/83 10/25/18 09:13 Ventilator 10/25/18 09:00 97.9 18 100 97.9 Labs: Laboratory Tests Test 10/24/18 12:00 10/24/18 12:27 10/24/18 17:47 10/24/18 20:37 O2 Saturation 95 % Arterial Blood pH 7.42 Arterial Blood pCO2 at Patient Temp 48 mmHg Arterial Blood pO2 at Patient Temp 79 mmHg Arterial Blood HCO3 30 mmol/L Arterial Blood Base Excess 5 mmol/L FiO2 35 Glucose (Fingerstick) 154 mg/dL 141 mg/dL 133 mg/dL Test 10/25/18 00:03 10/25/18 08:30 10/25/18 09:00 Glucose (Fingerstick) 147 mg/dL O2 Saturation 96 % Arterial Blood pH 7.39 Arterial Blood pCO2 at Patient Temp 58 mmHg Arterial Blood pO2 at Patient Temp 85 mmHg Arterial Blood HCO3 35 mmol/L Arterial Blood Base Excess 8 mmol/L FiO2 35 White Blood Count 10.0 x10^3/uL Red Blood Count 3.42 x10^6/uL Hemoglobin 10.2 g/dL Hematocrit 31.6 % Mean Corpuscular Volume 92 fL Mean Corpuscular Hemoglobin 30 pg Mean Corpuscular Hemoglobin Concent 32 g/dL Red Cell Distribution Width 16.9 % Platelet Count 138 x10^3/uL Neutrophils (%) (Auto) 70 % Lymphocytes (%) (Auto) 18 % Monocytes (%) (Auto) 7 % Eosinophils (%) (Auto) 5 % Basophils (%) (Auto) 1 % Neutrophils # (Auto) 7.0 x10^3uL Lymphocytes # (Auto) 1.8 x10^3/uL Monocytes # (Auto) 0.7 x10^3/uL Eosinophils # (Auto) 0.5 x10^3/uL Basophils # (Auto) 0.1 x10^3/uL Imaging: KUB 10/25 Impression: 1. There is retained oral contrast throughout the nondilated colon. There is some gas distention of stomach. PE: GEN: NAD LUNGS: trach/vent HEART: RRR ABD: PEG in place w/ gauze over bumper, soft, non-tender, quiet BS NEURO/PSYCH: A & O 3 A/P: Resp failure s/p trach and PEG -- Try Reglan susp. Note addition of lactulose. JO-ANN CHONG October 25, 2018 10:14
--- NOTE | 2018-10-25 10:46 | PDOC ---
PULMONARY PROGRESS NOTES Subjective PT DID 4 HRS OF CPAP YESTERDAY PT A/A FOLLOWS COMMANDS S/P TRACH 10/16 Vitals Vital Signs Date Time Temp Pulse Resp B/P (MAP) Pulse Ox O2 Delivery O2 Flow Rate FiO2 10/25/18 10:16 Ventilator 10/25/18 10:15 98 10/25/18 10:00 97.6 80 19 114/55 (74) 97.6 General: Alert, No acute distress HEENT: Other (nc at perrl nose throat clear, neck no thyromegaly no lad) Lungs: Other (decrease bs) Cardiovascular: S1, S2 Abdomen: Soft, Non-tender, Other (no mass) Neuro Exam: Alert Extremities: Other (trace edema) Skin: Warm Labs Laboratory Tests Test 10/23/18 14:50 10/23/18 17:52 10/23/18 23:40 10/24/18 06:05 Glucose (Fingerstick) 134 mg/dL (70-99) 139 mg/dL (70-99) 155 mg/dL (70-99) White Blood Count 9.5 x10^3/uL (4.0-11.0) Red Blood Count 3.28 x10^6/uL (4.30-5.70) Hemoglobin 9.7 g/dL (13.0-17.5) Hematocrit 30.2 % (39.0-53.0) Mean Corpuscular Volume 92 fL (79-100) Mean Corpuscular Hemoglobin 30 pg (25-35) Mean Corpuscular Hemoglobin Concent 32 g/dL (31-37) Red Cell Distribution Width 16.7 % (11.5-14.5) Platelet Count 127 x10^3/uL (140-400) Neutrophils (%) (Auto) 81 % (31-73) Lymphocytes (%) (Auto) 10 % (24-48) Monocytes (%) (Auto) 4 % (0-9) Eosinophils (%) (Auto) 4 % (0-3) Basophils (%) (Auto) 1 % (0-3) Neutrophils # (Auto) 7.7 x10^3uL (1.8-7.7) Lymphocytes # (Auto) 0.9 x10^3/uL (1.0-4.8) Monocytes # (Auto) 0.4 x10^3/uL (0.0-1.1) Eosinophils # (Auto) 0.4 x10^3/uL (0.0-0.7) Basophils # (Auto) 0.1 x10^3/uL (0.0-0.2) Test 10/24/18 06:47 10/24/18 08:05 10/24/18 12:00 10/24/18 12:27 Glucose (Fingerstick) 126 mg/dL (70-99) 154 mg/dL (70-99) O2 Saturation 98 % (92-99) 95 % (92-99) Arterial Blood pH 7.42 (7.35-7.45) 7.42 (7.35-7.45) Arterial Blood pCO2 at Patient Temp 51 mmHg (35-46) 48 mmHg (35-46) Arterial Blood pO2 at Patient Temp 104 mmHg (65-108) 79 mmHg (65-108) Arterial Blood HCO3 33 mmol/L (21-28) 30 mmol/L (21-28) Arterial Blood Base Excess 7 mmol/L (-3-3) 5 mmol/L (-3-3) FiO2 35 35 Test 10/24/18 17:47 10/24/18 20:37 10/25/18 00:03 10/25/18 08:30 Glucose (Fingerstick) 141 mg/dL (70-99) 133 mg/dL (70-99) 147 mg/dL (70-99) O2 Saturation 96 % (92-99) Arterial Blood pH 7.39 (7.35-7.45) Arterial Blood pCO2 at Patient Temp 58 mmHg (35-46) Arterial Blood pO2 at Patient Temp 85 mmHg (65-108) Arterial Blood HCO3 35 mmol/L (21-28) Arterial Blood Base Excess 8 mmol/L (-3-3) FiO2 35 Test 10/25/18 09:00 White Blood Count 10.0 x10^3/uL (4.0-11.0) Red Blood Count 3.42 x10^6/uL (4.30-5.70) Hemoglobin 10.2 g/dL (13.0-17.5) Hematocrit 31.6 % (39.0-53.0) Mean Corpuscular Volume 92 fL (79-100) Mean Corpuscular Hemoglobin 30 pg (25-35) Mean Corpuscular Hemoglobin Concent 32 g/dL (31-37) Red Cell Distribution Width 16.9 % (11.5-14.5) Platelet Count 138 x10^3/uL (140-400) Neutrophils (%) (Auto) 70 % (31-73) Lymphocytes (%) (Auto) 18 % (24-48) Monocytes (%) (Auto) 7 % (0-9) Eosinophils (%) (Auto) 5 % (0-3) Basophils (%) (Auto) 1 % (0-3) Neutrophils # (Auto) 7.0 x10^3uL (1.8-7.7) Lymphocytes # (Auto) 1.8 x10^3/uL (1.0-4.8) Monocytes # (Auto) 0.7 x10^3/uL (0.0-1.1) Eosinophils # (Auto) 0.5 x10^3/uL (0.0-0.7) Basophils # (Auto) 0.1 x10^3/uL (0.0-0.2) Laboratory Tests Test 10/24/18 12:00 10/24/18 12:27 10/24/18 17:47 10/24/18 20:37 O2 Saturation 95 % (92-99) Arterial Blood pH 7.42 (7.35-7.45) Arterial Blood pCO2 at Patient Temp 48 mmHg (35-46) Arterial Blood pO2 at Patient Temp 79 mmHg (65-108) Arterial Blood HCO3 30 mmol/L (21-28) Arterial Blood Base Excess 5 mmol/L (-3-3) FiO2 35 Glucose (Fingerstick) 154 mg/dL (70-99) 141 mg/dL (70-99) 133 mg/dL (70-99) Test 10/25/18 00:03 10/25/18 08:30 10/25/18 09:00 Glucose (Fingerstick) 147 mg/dL (70-99) O2 Saturation 96 % (92-99) Arterial Blood pH 7.39 (7.35-7.45) Arterial Blood pCO2 at Patient Temp 58 mmHg (35-46) Arterial Blood pO2 at Patient Temp 85 mmHg (65-108) Arterial Blood HCO3 35 mmol/L (21-28) Arterial Blood Base Excess 8 mmol/L (-3-3) FiO2 35 White Blood Count 10.0 x10^3/uL (4.0-11.0) Red Blood Count 3.42 x10^6/uL (4.30-5.70) Hemoglobin 10.2 g/dL (13.0-17.5) Hematocrit 31.6 % (39.0-53.0) Mean Corpuscular Volume 92 fL (79-100) Mean Corpuscular Hemoglobin 30 pg (25-35) Mean Corpuscular Hemoglobin Concent 32 g/dL (31-37) Red Cell Distribution Width 16.9 % (11.5-14.5) Platelet Count 138 x10^3/uL (140-400) Neutrophils (%) (Auto) 70 % (31-73) Lymphocytes (%) (Auto) 18 % (24-48) Monocytes (%) (Auto) 7 % (0-9) Eosinophils (%) (Auto) 5 % (0-3) Basophils (%) (Auto) 1 % (0-3) Neutrophils # (Auto) 7.0 x10^3uL (1.8-7.7) Lymphocytes # (Auto) 1.8 x10^3/uL (1.0-4.8) Monocytes # (Auto) 0.7 x10^3/uL (0.0-1.1) Eosinophils # (Auto) 0.5 x10^3/uL (0.0-0.7) Basophils # (Auto) 0.1 x10^3/uL (0.0-0.2) Medications Active Scripts Medications Dose Route/Sig Max Daily Dose Days Date Category Proair Hfa (Albuterol Sulfate) 8.5 Gm Hfa.aer.ad 1 Puff INH PRN Q6HRS PRN 10/07/18 Reported Oxazepam 30 Mg Capsule 30 Mg PO QHS 10/07/18 Reported Comments cxr reviewed 10/24, trach, l effusion, basal atelectasis Impression . 1. Acute on chronic hypoxemic/ hypercapnic respiratory failure, multifactorial. 2. Acute exacerbation of chronic obstructive pulmonary disease. suspect severe COPD 3. Abnormal x-ray improved. 4. Gram-negative, possible gram-positive pneumonia. 5. No history given of diabetes, hypertension or renal failure. 6. History of alcohol intake, discontinued approximately 4 years ago. 7. Possible sepsis POA, improved 8. Positive mycoplasma serology 9. EF 40%, acute sys chf 10. S/P TRACH 10/16 Plan . WILL CONTINUE PS DURING DAY TOLERATED TS IN AM TITRATE PS TO MAINTAIN VT 450 CC D/W RT/ RN ABG ON PS TRIAL ADEQUATE 10/24 PT OT CXR PRN WILL CONTINUE SUPPORT FOLLOW CARD REC CONTINUE ANTIBX PER ID DIURESE, MONITOR LABS DVT GI PROPH, pepcid, heparin sq ENTERAL FEEDING ENDER MUÑOZ MD October 25, 2018 10:46
[2018-10-25] MEDS: LANSOPRAZOLE 30 MG TAB.RAP.DR FT SCH (11:10)
[2018-10-25] MEDS: METOCLOPRAMIDE ORAL SOLN 10 MG/10 ML SOLUTION. PEG SCH ×3 (11:10→20:52)
[2018-10-25] MEDS: BISACODYL 10 MG SUPP.RECT. PR PRN (11:31)
--- NOTE | 2018-10-25 13:19 | NUR ---
NOTICED BLEEDING FROM PICC LINE INSERTION SITE RIGHT UPPER EXTREMITY. CONTACT IV TEAM TO INFORM AND ILYA ODONNELL CAME TO PT'S ROOM TO MANAGE PICC LINE. WILL CONTINUE TO ASSESS.
[2018-10-25] MEDS ORDERED: ALTEPLASE 1MG SYRINGE. INT CAT ONE (14:00)
--- NOTE | 2018-10-25 14:41 | NUR ---
RED PORT RIGHT UPPER EXTREMITY WORKING AND RETURNING BLOOD S/P CATH JIA.
--- NOTE | 2018-10-25 18:16 | NUR ---
COMPLETE TRACH CARE AND CONTINUE Q 2 HOUR TURNS. PT TOLERATING TRACH MASK AT 13L.
[2018-10-25] MEDS: ATORVASTATIN CALCIUM 10 MG TABLET. PO SCH (20:52)
[2018-10-26] VITALS (26 sets, daily range): BP systolic 66–182; BP diastolic 44–85
[2018-10-26] MEDS: HEPARIN for SUB-Q USE 5,000 UNIT/ML VIAL. SQ SCH ×4 (00:13→22:04)
[2018-10-26] MEDS: INSULIN GLARGINE 300 UNITS/3 ML INSULN.PEN. SQ SCH (00:15)
[2018-10-26] MEDS: MORPHINE SULFATE 2 MG/ML VIAL. IV PRN ×4 (01:36→16:30)
[2018-10-26] MEDS: IPRATRPIUM/ALBUTEROL 0.5/2.5MG 3 ML NEBU. NEB SCH ×5 (03:33→19:59)
[2018-10-26] MEDS: INSULIN LISPRO 300 UNITS/3 ML INSULN.PEN. SQ SCH ×4 (06:13→17:49)
[2018-10-26 06:40] LABS: BASO % 0 % (0-3); EOS # 0.3 x10^3/uL (0.0-0.7); EOS % 5 % (0-3); HEMATOCRIT 29.1 % (39.0-53.0); HEMOGLOBIN 9.3 g/dL (13.0-17.5); LYMPH % 15 % (24-48); MEAN CORPUSCULAR HEMOGLOBIN 30 pg (25-35); MEAN CORPUSCULAR HGB CONC 32 g/dL (31-37); MEAN CORPUSCULAR VOLUME 93 fL (79-100); MONO # 0.4 x10^3/uL (0.0-1.1); MONO % 6 % (0-9); NEUT % 74 % (31-73); PLATELET COUNT 126 x10^3/uL (140-400); RED BLOOD COUNT 3.12 x10^6/uL (4.30-5.70); RED CELL DISTRIBUTION WIDTH 16.5 % (11.5-14.5); WHITE BLOOD COUNT 6.7 x10^3/uL (4.0-11.0)
--- NOTE | 2018-10-26 07:44 | PDOC ---
Infectious Disease Note Subjective: Subjective pt is awake,doing ok ROS: ROS Negative except for above. Vital Signs: Vital Signs Vital Signs Date Time Temp Pulse Resp B/P (MAP) Pulse Ox O2 Delivery O2 Flow Rate FiO2 10/26/18 06:00 89 28 150/55 (86) 95 Ventilator 10/26/18 04:00 98.8 98.8 10/25/18 20:00 15.0 Physical Exam: PHYSICAL EXAM GENERAL: awake, alert.comfortable HENT: normal conj. PERRL. Neck : trach, + LUNGS: Clear CV: S1 S2 irregular ABD: Obese, soft, NT, BS present has a PEG feeding running, PEG in place : Jeffers in place EXT: 1 + edema lower extremities, bilaterally. No cyanosis. 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: awake, no focal deficit Medications: Inpatient Meds: Current Medications Medications (Trade) Dose Ordered Sig/Eric Start Time Stop Time Status Last Admin Dose Admin Acetaminophen (Tylenol) 650 mg PRN Q6HRS PRN 10/07/18 12:45 10/22/18 20:27 650 MG Acetaminophen/ Hydrocodone Bitart (Lortab 5/325) 1 tab PRN Q6HRS PRN 10/23/18 09:15 10/25/18 09:13 1 TAB Albuterol Sulfate (Ventolin Neb Soln) 2.5 mg PRN Q2HR PRN 10/07/18 15:00 Albuterol/ Ipratropium (Duoneb) 3 ml Q4HRS 10/22/18 08:00 10/26/18 03:33 3 ML Alteplase, Recombinant (Cathflo For Central Catheter Clearance) 1 mg 1X ONCE 10/25/18 14:00 10/25/18 14:01 DC 10/25/18 14:05 1 MG Amlodipine Besylate (Norvasc) 5 mg DAILY 10/12/18 12:30 10/25/18 09:14 5 MG Aspirin (Children'S Aspirin) 81 mg DAILYWBKFT 10/19/18 08:00 10/25/18 09:13 81 MG Aspirin (Ecotrin) 81 mg DAILYWBKFT 10/10/18 08:00 10/18/18 09:01 DC 10/18/18 08:39 81 MG Atorvastatin Calcium (Lipitor) 10 mg QHS 10/17/18 21:00 10/25/18 20:52 10 MG Atropine Sulfate (ATROPINE 0.5mg SYRINGE) 0.5 mg PRN Q5MIN PRN 10/20/18 15:15 UNV Bisacodyl (Dulcolax Supp) 10 mg PRN DAILY PRN 10/15/18 13:30 10/25/18 11:31 10 MG Budesonide (Pulmicort) 0.5 mg RTBID 10/22/18 08:00 10/25/18 19:43 0.5 MG Calcium Gluconate (Calcium Gluconate) 1,000 mg 1X ONCE 10/07/18 13:30 10/07/18 13:31 Cancel Calcium Gluconate 1000 mg/Sodium Chloride 110 ml @ 220 mls/hr 1X ONCE 10/07/18 15:00 10/07/18 15:29 DC 10/07/18 14:23 220 MLS/HR Dexmedetomidine HCl 200 mcg/ Sodium Chloride 50 ml @ 0 mls/hr CONT PRN 10/20/18 15:15 UNV Dextrose (Dextrose 50%-Water Syringe) 12.5 gm PRN Q15MIN PRN 10/07/18 12:45 Doxycycline Hyclate 100 mg/ Dextrose 100 ml @ 50 mls/hr Q12HR 10/09/18 13:00 10/24/18 07:56 DC 10/23/18 23:21 50 MLS/HR Etomidate (Amidate) 20 mg 1X ONCE 10/07/18 11:30 10/07/18 11:33 DC 10/07/18 11:01 20 MG Famotidine (Pepcid Vial) 20 mg QHS 10/08/18 21:00 10/25/18 10:14 DC 10/24/18 20:20 20 MG Fentanyl Citrate (Fentanyl 2ml Vial) 100 mcg STK-MED ONCE 10/16/18 12:36 10/16/18 12:37 DC Fluconazole (Diflucan) 200 mg DAILY 10/20/18 11:00 10/25/18 09:13 200 MG Furosemide (Lasix) 40 mg DAILY 10/19/18 09:00 10/25/18 09:13 40 MG Glycopyrrolate (Robinul) 1 mg STK-MED ONCE 10/16/18 13:27 10/16/18 13:28 DC Heparin Sodium (Porcine) (Heparin Sodium) 5,000 unit Q8HRS 10/07/18 14:00 10/26/18 06:13 5,000 UNIT Hydralazine HCl (Apresoline Inj) 10 mg PRN Q4HRS PRN 10/12/18 11:45 10/24/18 00:36 10 MG Hydromorphone HCl (Dilaudid) 0.5 mg PRN Q10MIN PRN 10/16/18 07:00 10/17/18 06:59 DC Info (CONTRAST GIVEN -- Rx MONITORING) 1 each PRN DAILY PRN 10/21/18 20:00 10/23/18 19:59 DC Info (Tpn Per Pharmacy) 1 each PRN DAILY PRN 10/20/18 10:00 10/22/18 21:59 DC 10/22/18 12:16 1 EACH Insulin Glargine (Lantus) 10 units QHS 10/13/18 21:00 10/26/18 00:15 10 UNITS Insulin Human Lispro (HumaLOG) 0-9 UNITS Q6HRS 10/07/18 18:00 10/25/18 18:16 4 UNITS Insulin Human Regular (HumuLIN R VIAL) 10 unit 1X ONCE 10/07/18 12:45 10/07/18 12:46 DC 10/07/18 13:00 10 UNIT Iohexol (Omnipaque 240 Mg/ml) 30 ml 1X ONCE 10/21/18 20:00 10/21/18 20:01 DC 10/21/18 19:35 30 ML Iohexol (Omnipaque 300 Mg/ml) 75 ml 1X ONCE 10/21/18 20:00 10/21/18 20:01 DC 10/21/18 20:54 75 ML Lactobacillus Rhamnosus (Culturelle) 1 cap BID 10/08/18 09:00 10/09/18 15:58 DC Lactulose (Lactulose) 20 gm PRN TID PRN 10/25/18 08:45 Lansoprazole (Prevacid) 30 mg DAILY 10/25/18 12:00 10/25/18 11:10 30 MG Levofloxacin/ Dextrose 150 ml @ 100 mls/hr Q48H 10/09/18 12:00 10/09/18 12:00 DC Levofloxacin/ Dextrose (Levaquin Per Pharmacy) 1 each PRN DAILY PRN 10/07/18 12:45 10/08/18 07:33 DC Lidocaine HCl (Xylocaine-Mpf 1% 2ml Vial) 2 ml PRN 1X PRN 10/16/18 07:00 10/17/18 06:59 DC Linezolid/Dextrose 300 ml @ 300 mls/hr Q12HR 10/08/18 11:30 10/10/18 07:24 DC 10/09/18 20:58 300 MLS/HR Lisinopril (Prinivil) 10 mg DAILY 10/11/18 14:00 10/15/18 09:46 DC 10/14/18 08:03 10 MG Lorazepam (Ativan Inj) 2 mg PRN Q6HRS PRN 10/23/18 17:30 10/25/18 22:00 2 MG Lorazepam (Ativan) 1 mg PRN Q6HRS PRN 10/23/18 09:15 10/23/18 10:07 1 MG Meropenem 500 mg/ Sodium Chloride 50 ml @ 100 mls/hr Q8HRS 10/07/18 17:00 10/20/18 09:03 DC 10/20/18 05:36 100 MLS/HR Methylprednisolone Sodium Succinate (SOLU-Medrol 40MG VIAL) 40 mg DAILY 10/16/18 09:00 10/20/18 13:10 DC 10/20/18 08:05 40 MG Methylprednisolone Sodium Succinate (SOLU-Medrol 125MG VIAL) 125 mg 1X ONCE 10/07/18 12:00 10/07/18 12:01 DC 10/07/18 11:52 125 MG Metoclopramide HCl (Reglan Oral Solution) 10 mg QIDACHS 10/25/18 11:30 10/25/18 20:52 10 MG Metoclopramide HCl (Reglan Vial) 10 mg QIDACHS 10/20/18 16:30 10/25/18 10:14 DC 10/24/18 20:19 10 MG Midazolam HCl (Versed) 2 mg STK-MED ONCE 10/16/18 12:36 10/16/18 12:37 DC Morphine Sulfate (Morphine Sulfate) 1 mg PRN Q10MIN PRN 10/16/18 07:00 10/17/18 06:59 DC Neostigmine Methylsulfate (Neostigmine Methylsulfate) 5 mg STK-MED ONCE 10/16/18 13:27 10/16/18 13:28 DC Norepinephrine Bitartrate 250 ml @ 1.875 mls/ hr CONT PRN 10/07/18 14:00 10/07/18 14:01 13.125 MLS/HR Ondansetron HCl (Zofran) 4 mg PRN Q6HRS PRN 10/16/18 07:00 10/17/18 06:59 DC Pantoprazole Sodium (PROTONIX VIAL for IV PUSH) 40 mg STK-MED ONCE 10/07/18 12:52 10/07/18 12:55 DC Polyethylene Glycol (miraLAX PACKET) 17 gm PRN DAILY PRN 10/24/18 09:45 Prochlorperazine Edisylate (Compazine) 5 mg PACU PRN PRN 10/16/18 07:00 10/17/18 06:59 DC Ringer's Solution 1,000 ml @ 50 mls/hr Q20H 10/17/18 07:00 10/17/18 18:59 DC Rocuronium [place] (Zemuron) 50 mg STK-MED ONCE 10/16/18 12:36 10/16/18 12:37 DC Sevoflurane (Ultane) 30 ml STK-MED ONCE 10/16/18 13:36 10/16/18 13:37 DC Sodium Polystyrene Sulfonate (Kayexalate) 15 gm 1X ONCE 10/07/18 13:30 10/07/18 13:31 DC 10/07/18 14:10 15 GM Sodium Bicarbonate (Sodium Bicarb Adult 8.4% Syr) 50 meq 1X ONCE 10/07/18 12:45 10/07/18 12:46 DC 10/07/18 13:07 50 MEQ Sodium Chloride 10 meq/Potassium Acetate 50 meq/ Potassium Phosphate 15 mmol/ Magnesium Sulfate 8 meq/Calcium Gluconate 10 meq/ Multivitamins 10 ml/Chromium/ Copper/Manganese/ Seleni/Zn 1 ml/ Total Parenteral Nutrition/Amino Acids/Dextrose/ Fat Emulsion Intravenous 1,512 ml @ 63 mls/hr TPN CONT 10/21/18 22:00 10/22/18 21:59 DC 10/21/18 21:35 63 MLS/HR Sodium Chloride 20 meq/Potassium Acetate 50 meq/ Potassium Phosphate 13.6 mmol/Magnesium Sulfate 10 meq/ Calcium Gluconate 10 meq/ Multivitamins 10 ml/Chromium/ Copper/Manganese/ Seleni/Zn 1 ml/ Total Parenteral Nutrition/Amino Acids/Dextrose/ Fat Emulsion Intravenous 1,512 ml @ 63 mls/hr TPN CONT 10/20/18 22:00 10/21/18 21:59 DC 10/20/18 21:59 63 MLS/HR Succinylcholine Chloride (Anectine) 100 mg 1X ONCE 10/07/18 11:30 10/07/18 11:33 DC 10/07/18 11:01 100 MG Vancomycin HCl 250 ml @ 250 mls/hr 1X ONCE 10/07/18 12:00 10/07/18 12:59 DC 10/07/18 12:27 250 MLS/HR Labs: Lab Laboratory Tests Test 10/25/18 08:30 10/25/18 09:00 10/25/18 11:28 10/25/18 18:01 O2 Saturation 96 % (92-99) Arterial Blood pH 7.39 (7.35-7.45) Arterial Blood pCO2 at Patient Temp 58 mmHg (35-46) Arterial Blood pO2 at Patient Temp 85 mmHg (65-108) Arterial Blood HCO3 35 mmol/L (21-28) Arterial Blood Base Excess 8 mmol/L (-3-3) FiO2 35 White Blood Count 10.0 x10^3/uL (4.0-11.0) Red Blood Count 3.42 x10^6/uL (4.30-5.70) Hemoglobin 10.2 g/dL (13.0-17.5) Hematocrit 31.6 % (39.0-53.0) Mean Corpuscular Volume 92 fL (79-100) Mean Corpuscular Hemoglobin 30 pg (25-35) Mean Corpuscular Hemoglobin Concent 32 g/dL (31-37) Red Cell Distribution Width 16.9 % (11.5-14.5) Platelet Count 138 x10^3/uL (140-400) Neutrophils (%) (Auto) 70 % (31-73) Lymphocytes (%) (Auto) 18 % (24-48) Monocytes (%) (Auto) 7 % (0-9) Eosinophils (%) (Auto) 5 % (0-3) Basophils (%) (Auto) 1 % (0-3) Neutrophils # (Auto) 7.0 x10^3uL (1.8-7.7) Lymphocytes # (Auto) 1.8 x10^3/uL (1.0-4.8) Monocytes # (Auto) 0.7 x10^3/uL (0.0-1.1) Eosinophils # (Auto) 0.5 x10^3/uL (0.0-0.7) Basophils # (Auto) 0.1 x10^3/uL (0.0-0.2) Glucose (Fingerstick) 160 mg/dL (70-99) 169 mg/dL (70-99) Test 10/26/18 00:10 10/26/18 05:45 10/26/18 06:10 Glucose (Fingerstick) 144 mg/dL (70-99) 123 mg/dL (70-99) White Blood Count 6.7 x10^3/uL (4.0-11.0) Red Blood Count 3.12 x10^6/uL (4.30-5.70) Hemoglobin 9.3 g/dL (13.0-17.5) Hematocrit 29.1 % (39.0-53.0) Mean Corpuscular Volume 93 fL (79-100) Mean Corpuscular Hemoglobin 30 pg (25-35) Mean Corpuscular Hemoglobin Concent 32 g/dL (31-37) Red Cell Distribution Width 16.5 % (11.5-14.5) Platelet Count 126 x10^3/uL (140-400) Neutrophils (%) (Auto) 74 % (31-73) Lymphocytes (%) (Auto) 15 % (24-48) Monocytes (%) (Auto) 6 % (0-9) Eosinophils (%) (Auto) 5 % (0-3) Basophils (%) (Auto) 0 % (0-3) Neutrophils # (Auto) 5.0 x10^3uL (1.8-7.7) Lymphocytes # (Auto) 1.0 x10^3/uL (1.0-4.8) Monocytes # (Auto) 0.4 x10^3/uL (0.0-1.1) Eosinophils # (Auto) 0.3 x10^3/uL (0.0-0.7) Basophils # (Auto) 0.0 x10^3/uL (0.0-0.2) Micro micro reviewed Objective: Assessment: Fever - resolved Pneumonia + mycoplasma 10/08 - on Doxy 10/09. Sputum cult - routine raheel/ Strep and Legionella - neg UTI, POA staph sap NSTEMI Lactic acidosis - improved Allergy PCN w/ hives and throat swelling; erythromycin w/ hives. Leukocytosis - on steroids - better Hypotension, now off Levophed gtt Acute encephalopathy - improving Acute respiratory failure s/p intubation ALEX - better COPD, O2 dependent Large staghorn calculus lt kidney mild hydronephrosis Plan: Plan of Care observe off antibiotics awaiting transfer to [facility] ENRIQUE WRAY MD October 26, 2018 07:44
[2018-10-26] MEDS: BUDESONIDE 0.5 MG/2 ML NEBU. NEB SCH ×2 (08:00→19:59)
[2018-10-26] MEDS: METOCLOPRAMIDE ORAL SOLN 10 MG/10 ML SOLUTION. PEG SCH ×4 (09:02→20:56)
[2018-10-26] MEDS: POLYETHYLENE GLYCOL 3350 17 GM PACKET. PEG SCH (09:02)
[2018-10-26] MEDS: LANSOPRAZOLE 30 MG TAB.RAP.DR FT SCH (09:02)
[2018-10-26] MEDS: FUROSEMIDE 40 MG TABLET. PO SCH (09:02)
[2018-10-26] MEDS: ASPIRIN CHEWABLE 81 MG TABLET. PO SCH (09:02)
[2018-10-26] MEDS: amLODIPine BESYLATE 5 MG TABLET PO SCH (09:03)
[2018-10-26] MEDS: FLUCONAZOLE 100 MG TABLET. PO SCH (09:03)
[2018-10-26 09:06] LABS: BASE EXCESS ABG 7 mmol/L (-3-3); HCO3 ABG 35 mmol/L (21-28); PO2 ABG 78 mmHg (65-108); SAT O2 ABG 94 % (92-99)
[2018-10-26 09:08] LABS: FIO2 ABG 35; PCO2 ABG 66 mmHg (35-46)
--- NOTE | 2018-10-26 09:13 | PDOC ---
PROGRESS NOTES Chief Complaint Chief Complaint Acute on chronic hypercapnic and hypoxic respiratory failure s/p Trach and PEG End-stage COPD Clinical pneumonia MORBID OBESITY Possible sepsis UTI- Staphylococcus saprophyticus. Greater than 100,000 colony forming units per mL Pneumonia + mycoplasma 10/08 - on Doxy 10/09 azotemia ICU deconditioning Severe protein calorie malnutrition History of Present Illness History of Present Illness The patient is a 78-year-old male who was admitted on October 07, after being found down unresponsive. He apparently did not lose a pulse. He was intubated upon admission and remains on the ventilator since. He apparently has a history of severe COPD and has been oxygen dependent at home, although according to his , he is not been using his oxygen prior to admit. He has a history of lifelong heavy smoking 3ppd, but did quit 3 years ago. He was a prior heavy ETOH user, has also since quit this. He failed several weaning trials and is s/p tracheostomy and PEG placement on 10/17/2018. Patient was seen and examined in the ICU He has a trach (day 9) remains unable to speak, still is alert and able to communicate. Indicates neck pain, wants to sit up more PEG feeds back on at goal Vent set to spontaneous respirations 14 of pressure support 35% FiO2 Discussed with RN Has been less agitated with increased ativan, morphine and fentanyl requirements when has has large mucous plugs removed. With PEG hydrocodone seems to be more comfortable. He apparently has only had small stool smears, more BM yesterday Will need LTAC for vent weaning 36 minutes CC time Vitals Vitals Vital Signs Date Time Temp Pulse Resp B/P (MAP) Pulse Ox O2 Delivery O2 Flow Rate FiO2 10/26/18 09:03 94 130/78 10/26/18 08:47 100 Ventilator 10/26/18 06:00 28 10/26/18 04:00 98.8 98.8 10/25/18 20:00 15.0 Physical Exam Physical Exam GENERAL: awake, alert.comfortable HENT: normal conj. PERRL. Neck : trach, + LUNGS: Clear CV: S1 S2 irregular ABD: Obese, soft, NT, BS present has a PEG feeding running, PEG in place : Jeffers in place EXT: 1 + edema lower extremities, bilaterally. No cyanosis. SKIN: warm without gen rash, [employer]: awake, no focal deficit General: Alert, No acute distress, Other (Tracheostomy/Vent unable to speak) Heart: Regular rate, Normal S1, Normal S2 Lungs: Other (decrease bs) Abdomen: Soft, No tenderness Extremities: No cyanosis, Other (trace edema) Skin: No significant lesion Labs LABS Laboratory Tests Test 10/25/18 11:28 10/25/18 18:01 10/26/18 00:10 10/26/18 05:45 Glucose (Fingerstick) 160 mg/dL (70-99) 169 mg/dL (70-99) 144 mg/dL (70-99) White Blood Count 6.7 x10^3/uL (4.0-11.0) Red Blood Count 3.12 x10^6/uL (4.30-5.70) Hemoglobin 9.3 g/dL (13.0-17.5) Hematocrit 29.1 % (39.0-53.0) Mean Corpuscular Volume 93 fL (79-100) Mean Corpuscular Hemoglobin 30 pg (25-35) Mean Corpuscular Hemoglobin Concent 32 g/dL (31-37) Red Cell Distribution Width 16.5 % (11.5-14.5) Platelet Count 126 x10^3/uL (140-400) Neutrophils (%) (Auto) 74 % (31-73) Lymphocytes (%) (Auto) 15 % (24-48) Monocytes (%) (Auto) 6 % (0-9) Eosinophils (%) (Auto) 5 % (0-3) Basophils (%) (Auto) 0 % (0-3) Neutrophils # (Auto) 5.0 x10^3uL (1.8-7.7) Lymphocytes # (Auto) 1.0 x10^3/uL (1.0-4.8) Monocytes # (Auto) 0.4 x10^3/uL (0.0-1.1) Eosinophils # (Auto) 0.3 x10^3/uL (0.0-0.7) Basophils # (Auto) 0.0 x10^3/uL (0.0-0.2) Test 10/26/18 06:10 10/26/18 08:50 Glucose (Fingerstick) 123 mg/dL (70-99) O2 Saturation 94 % (92-99) Arterial Blood pH 7.34 (7.35-7.45) Arterial Blood pCO2 at Patient Temp 66 mmHg (35-46) Arterial Blood pO2 at Patient Temp 78 mmHg (65-108) Arterial Blood HCO3 35 mmol/L (21-28) Arterial Blood Base Excess 7 mmol/L (-3-3) FiO2 35 Assessment and Plan Assessmemt and Plan Problems Medical Problems: (1) Acute respiratory distress Status: Acute (2) CAP (community acquired pneumonia) Status: Acute (3) CHF (congestive heart failure) Status: Acute (4) Elevated liver function tests Status: Acute (5) Elevated troponin I level Status: Acute (6) Hyperkalemia Status: Acute (7) Renal insufficiency Status: Acute (8) Sepsis Status: Acute (9) Unresponsiveness Status: Acute (10) Urinary tract infection Status: Acute Comment Review of Relevant I have reviewed the following items akbar (where applicable) has been applied. Labs Laboratory Tests Test 10/24/18 12:00 10/24/18 12:27 10/24/18 17:47 10/24/18 20:37 O2 Saturation 95 % (92-99) Arterial Blood pH 7.42 (7.35-7.45) Arterial Blood pCO2 at Patient Temp 48 mmHg (35-46) Arterial Blood pO2 at Patient Temp 79 mmHg (65-108) Arterial Blood HCO3 30 mmol/L (21-28) Arterial Blood Base Excess 5 mmol/L (-3-3) FiO2 35 Glucose (Fingerstick) 154 mg/dL (70-99) 141 mg/dL (70-99) 133 mg/dL (70-99) Test 10/25/18 00:03 10/25/18 05:02 10/25/18 08:30 10/25/18 09:00 Glucose (Fingerstick) 147 mg/dL (70-99) 110 mg/dL (70-99) O2 Saturation 96 % (92-99) Arterial Blood pH 7.39 (7.35-7.45) Arterial Blood pCO2 at Patient Temp 58 mmHg (35-46) Arterial Blood pO2 at Patient Temp 85 mmHg (65-108) Arterial Blood HCO3 35 mmol/L (21-28) Arterial Blood Base Excess 8 mmol/L (-3-3) FiO2 35 White Blood Count 10.0 x10^3/uL (4.0-11.0) Red Blood Count 3.42 x10^6/uL (4.30-5.70) Hemoglobin 10.2 g/dL (13.0-17.5) Hematocrit 31.6 % (39.0-53.0) Mean Corpuscular Volume 92 fL (79-100) Mean Corpuscular Hemoglobin 30 pg (25-35) Mean Corpuscular Hemoglobin Concent 32 g/dL (31-37) Red Cell Distribution Width 16.9 % (11.5-14.5) Platelet Count 138 x10^3/uL (140-400) Neutrophils (%) (Auto) 70 % (31-73) Lymphocytes (%) (Auto) 18 % (24-48) Monocytes (%) (Auto) 7 % (0-9) Eosinophils (%) (Auto) 5 % (0-3) Basophils (%) (Auto) 1 % (0-3) Neutrophils # (Auto) 7.0 x10^3uL (1.8-7.7) Lymphocytes # (Auto) 1.8 x10^3/uL (1.0-4.8) Monocytes # (Auto) 0.7 x10^3/uL (0.0-1.1) Eosinophils # (Auto) 0.5 x10^3/uL (0.0-0.7) Basophils # (Auto) 0.1 x10^3/uL (0.0-0.2) Test 10/25/18 11:28 10/25/18 18:01 10/26/18 00:10 10/26/18 05:45 Glucose (Fingerstick) 160 mg/dL (70-99) 169 mg/dL (70-99) 144 mg/dL (70-99) White Blood Count 6.7 x10^3/uL (4.0-11.0) Red Blood Count 3.12 x10^6/uL (4.30-5.70) Hemoglobin 9.3 g/dL (13.0-17.5) Hematocrit 29.1 % (39.0-53.0) Mean Corpuscular Volume 93 fL (79-100) Mean Corpuscular Hemoglobin 30 pg (25-35) Mean Corpuscular Hemoglobin Concent 32 g/dL (31-37) Red Cell Distribution Width 16.5 % (11.5-14.5) Platelet Count 126 x10^3/uL (140-400) Neutrophils (%) (Auto) 74 % (31-73) Lymphocytes (%) (Auto) 15 % (24-48) Monocytes (%) (Auto) 6 % (0-9) Eosinophils (%) (Auto) 5 % (0-3) Basophils (%) (Auto) 0 % (0-3) Neutrophils # (Auto) 5.0 x10^3uL (1.8-7.7) Lymphocytes # (Auto) 1.0 x10^3/uL (1.0-4.8) Monocytes # (Auto) 0.4 x10^3/uL (0.0-1.1) Eosinophils # (Auto) 0.3 x10^3/uL (0.0-0.7) Basophils # (Auto) 0.0 x10^3/uL (0.0-0.2) Test 10/26/18 06:10 10/26/18 08:50 Glucose (Fingerstick) 123 mg/dL (70-99) O2 Saturation 94 % (92-99) Arterial Blood pH 7.34 (7.35-7.45) Arterial Blood pCO2 at Patient Temp 66 mmHg (35-46) Arterial Blood pO2 at Patient Temp 78 mmHg (65-108) Arterial Blood HCO3 35 mmol/L (21-28) Arterial Blood Base Excess 7 mmol/L (-3-3) FiO2 35 Laboratory Tests Test 10/25/18 11:28 10/25/18 18:01 10/26/18 00:10 10/26/18 05:45 Glucose (Fingerstick) 160 mg/dL (70-99) 169 mg/dL (70-99) 144 mg/dL (70-99) White Blood Count 6.7 x10^3/uL (4.0-11.0) Red Blood Count 3.12 x10^6/uL (4.30-5.70) Hemoglobin 9.3 g/dL (13.0-17.5) Hematocrit 29.1 % (39.0-53.0) Mean Corpuscular Volume 93 fL (79-100) Mean Corpuscular Hemoglobin 30 pg (25-35) Mean Corpuscular Hemoglobin Concent 32 g/dL (31-37) Red Cell Distribution Width 16.5 % (11.5-14.5) Platelet Count 126 x10^3/uL (140-400) Neutrophils (%) (Auto) 74 % (31-73) Lymphocytes (%) (Auto) 15 % (24-48) Monocytes (%) (Auto) 6 % (0-9) Eosinophils (%) (Auto) 5 % (0-3) Basophils (%) (Auto) 0 % (0-3) Neutrophils # (Auto) 5.0 x10^3uL (1.8-7.7) Lymphocytes # (Auto) 1.0 x10^3/uL (1.0-4.8) Monocytes # (Auto) 0.4 x10^3/uL (0.0-1.1) Eosinophils # (Auto) 0.3 x10^3/uL (0.0-0.7) Basophils # (Auto) 0.0 x10^3/uL (0.0-0.2) Test 10/26/18 06:10 10/26/18 08:50 Glucose (Fingerstick) 123 mg/dL (70-99) O2 Saturation 94 % (92-99) Arterial Blood pH 7.34 (7.35-7.45) Arterial Blood pCO2 at Patient Temp 66 mmHg (35-46) Arterial Blood pO2 at Patient Temp 78 mmHg (65-108) Arterial Blood HCO3 35 mmol/L (21-28) Arterial Blood Base Excess 7 mmol/L (-3-3) FiO2 35 Microbiology 10/07/18 Blood Culture - Final, Complete NO GROWTH AFTER 5 DAYS 10/08/18 - Final, Complete 10/08/18 - Final, Complete 10/08/18 - Final, Complete 10/08/18 - Final, Complete 10/08/18 - Final, Complete 10/08/18 Gram Stain Evaluation - Final, Complete 10/08/18 Sputum Culture - Final, Complete 10/08/18 Sputum Result 1 - Final, Complete 10/07/18 Urine Culture - Final, Complete 10/07/18 Urine Culture Result 1 (ELEN) - Final, Complete 10/07/18 Antimicrobic Susceptibility - Final, Complete Medications Current Medications Sodium Chloride 1,000 ml @ 1,000 mls/hr Q1H IV Last administered on 10/07/18at 11:27; Start 10/07/18 at 10:52; Stop 10/07/18 at 11:51; Status DC Midazolam HCl 100 ml @ 1 mls/hr 1X ONCE IV Last administered on 10/07/18at 11:20; Start 10/07/18 at 11:15; Stop 10/09/18 at 15:55; Status DC Etomidate (Amidate) 20 mg STK-MED ONCE IV ; Start 10/07/18 at 11:13; Stop 10/07/18 at 11:14; Status DC Succinylcholine Chloride (Anectine) 200 mg STK-MED ONCE .ROUTE ; Start 10/07/18 at 11:13; Stop 10/07/18 at 11:14; Status DC Etomidate (Amidate) 20 mg 1X ONCE IV Last administered on 10/07/18at 11:01; Start 10/07/18 at 11:30; Stop 10/07/18 at 11:33; Status DC Succinylcholine Chloride (Anectine) 100 mg 1X ONCE IV Last administered on 10/07/18at 11:01; Start 10/07/18 at 11:30; Stop 10/07/18 at 11:33; Status DC Albuterol Sulfate (Ventolin Neb Soln) 10 mg 1X ONCE CONT NEB ; Start 10/07/18 at 12:00; Stop 10/07/18 at 12:01; Status DC Methylprednisolone Sodium Succinate (SOLU-Medrol 125MG VIAL) 125 mg 1X ONCE IV Last administered on 10/07/18at 11:52; Start 10/07/18 at 12:00; Stop 10/07/18 at 12:01; Status DC Vancomycin HCl 250 ml @ 250 mls/hr 1X ONCE IV Last administered on 10/07/18at 12:27; Start 10/07/18 at 12:00; Stop 10/07/18 at 12:59; Status DC Levofloxacin/ Dextrose 150 ml @ 100 mls/hr 1X ONCE IV Last administered on 10/07/18at 12:28; Start 10/07/18 at 12:00; Stop 10/07/18 at 13:29; Status DC Sodium Chloride 1,000 ml @ 1,000 mls/hr 1X ONCE IV Last administered on 10/07/18at 12:57; Start 10/07/18 at 12:45; Stop 10/07/18 at 13:44; Status DC Sodium Chloride 1,000 ml @ 1,000 mls/hr 1X ONCE IV Last administered on 10/07/18at 12:58; Start 10/07/18 at 12:45; Stop 10/07/18 at 13:44; Status DC Dextrose (Dextrose 50%-Water Syringe) 25 gm 1X ONCE IV Last administered on 10/07/18at 12:59; Start 10/07/18 at 12:45; Stop 10/07/18 at 12:46; Status DC Insulin Human Regular (HumuLIN R VIAL) 10 unit 1X ONCE IV Last administered on 10/07/18at 13:00; Start 10/07/18 at 12:45; Stop 10/07/18 at 12:46; Status DC Sodium Bicarbonate (Sodium Bicarb Adult 8.4% Syr) 50 meq 1X ONCE IV Last administered on 10/07/18at 13:07; Start 10/07/18 at 12:45; Stop 10/07/18 at 12:46; Status DC Sodium Chloride 1,000 ml @ 100 mls/hr Q10H IV ; Start 10/07/18 at 16:00; Stop 10/07/18 at 16:00; Status DC Pantoprazole Sodium (PROTONIX VIAL for IV PUSH) 40 mg DAILYAC IVP Last administered on 10/08/18at 08:25; Start 10/07/18 at 13:30; Stop 10/08/18 at 09:54; Status DC Pantoprazole Sodium (PROTONIX VIAL for IV PUSH) 40 mg 1X ONCE IVP ; Start 10/07/18 at 12:45; Stop 10/07/18 at 12:46; Status UNV Heparin Sodium (Porcine) (Heparin Sodium) 5,000 unit Q8HRS SQ Last administered on 10/26/18at 06:13; Start 10/07/18 at 14:00 Levofloxacin/ Dextrose (Levaquin Per Pharmacy) 1 each PRN DAILY PRN MC SEE COMMENTS; Start 10/07/18 at 12:45; Stop 10/08/18 at 07:33; Status DC Insulin Human Lispro (HumaLOG) 0-9 UNITS TIDWMEALS SQ ; Start 10/07/18 at 17:00; Stop 10/07/18 at 17:00; Status DC Dextrose (Dextrose 50%-Water Syringe) 12.5 gm PRN Q15MIN PRN IV SEE COMMENTS; Start 10/07/18 at 12:45 Albuterol/ Ipratropium (Duoneb) 3 ml RTQID NEB ; Start 10/07/18 at 16:00; Status Cancel Methylprednisolone Sodium Succinate (SOLU-Medrol 40MG VIAL) 40 mg Q8HRS IV Last administered on 10/14/18at 05:48; Start 10/07/18 at 22:00; Stop 10/14/18 at 09:29; Status DC Acetaminophen (Tylenol) 650 mg PRN Q6HRS PRN PEG MILD PAIN / TEMP Last administered on 10/22/18at 20:27; Start 10/07/18 at 12:45 Morphine Sulfate (Morphine Sulfate) 2 mg PRN Q2HR PRN IV PAIN, 1ST CHOICE Last administered on 10/26/18at 01:36; Start 10/07/18 at 12:45 Ondansetron HCl (Zofran) 4 mg PRN Q6HRS PRN IV NAUSEA/VOMITING Last administered on 10/24/18at 15:59; Start 10/07/18 at 12:45 Norepinephrine Bitartrate 250 ml @ 1.875 mls/ hr CONT PRN IV SEE I/O RECORD Last administered on 10/07/18at 14:01; Start 10/07/18 at 14:00 Sodium Chloride 1,000 ml @ 150 mls/hr Q6H40M IV Last administered on 10/08/18at 15:09; Start 10/07/18 at 14:00; Stop 10/08/18 at 13:59; Status DC Calcium Gluconate (Calcium Gluconate) 1,000 mg 1X ONCE IVP ; Start 10/07/18 at 13:30; Stop 10/07/18 at 13:31; Status Cancel Sodium Polystyrene Sulfonate (Kayexalate) 15 gm 1X ONCE PO Last administered on 10/07/18at 14:10; Start 10/07/18 at 13:30; Stop 10/07/18 at 13:31; Status DC Pantoprazole Sodium (PROTONIX VIAL for IV PUSH) 40 mg STK-MED ONCE IVP ; Start 10/07/18 at 12:52; Stop 10/07/18 at 12:55; Status DC Levofloxacin/ Dextrose 150 ml @ 100 mls/hr Q48H IV ; Start 10/09/18 at 12:00; Stop 10/09/18 at 12:00; Status DC Calcium Gluconate 1000 mg/Sodium Chloride 110 ml @ 220 mls/hr 1X ONCE IV Last administered on 10/07/18at 14:23; Start 10/07/18 at 15:00; Stop 10/07/18 at 15:29; Status DC Sodium Chloride 1,000 ml @ 1,000 mls/hr 1X ONCE IV Last administered on 10/07/18at 14:50; Start 10/07/18 at 15:00; Stop 10/07/18 at 15:59; Status DC Sodium Chloride 1,000 ml @ 999 mls/hr 1X ONCE IV ; Start 10/07/18 at 15:00; Stop 10/07/18 at 16:00; Status DC Albuterol Sulfate (Ventolin Neb Soln) 2.5 mg PRN Q2HR PRN NEB [id number]; Start 10/07/18 at 15:00 Albuterol/ Ipratropium (Duoneb) 3 ml RTQID NEB Last administered on 10/21/18at 19:45; Start 10/07/18 at 16:00; Stop 10/22/18 at 06:29; Status DC Insulin Human Lispro (HumaLOG) 0-9 UNITS Q6HRS SQ Last administered on 10/25/18at 18:16; Start 10/07/18 at 18:00 Meropenem 500 mg/ Sodium Chloride 50 ml @ 100 mls/hr Q8HRS IV Last administered on 10/20/18at 05:36; Start 10/07/18 at 17:00; Stop 10/20/18 at 09:03; Status DC Midazolam HCl 100 ml @ 5 mls/hr CONT PRN IV SEE I/O RECORD Last administered on 10/18/18at 18:44; Start 10/08/18 at 04:15; Stop 10/23/18 at 07:49; Status DC Lactobacillus Rhamnosus (Culturelle) 1 cap BID PO ; Start 10/08/18 at 09:00; Stop 10/09/18 at 15:58; Status DC Famotidine (Pepcid Vial) 20 mg QHS IVP Last administered on 10/24/18at 20:20; Start 10/08/18 at 21:00; Stop 10/25/18 at 10:14; Status DC Linezolid/Dextrose 300 ml @ 300 mls/hr Q12HR IV Last administered on 10/09/18at 20:58; Start 10/08/18 at 11:30; Stop 10/10/18 at 07:24; Status DC Doxycycline Hyclate 100 mg/ Dextrose 100 ml @ 50 mls/hr Q12HR IV Last administered on 10/23/18at 23:21; Start 10/09/18 at 13:00; Stop 10/24/18 at 07:56; Status DC Aspirin (Ecotrin) 81 mg DAILYWBKFT PO Last administered on 10/18/18 08:39; Start 10/10/18 at 08:00; Stop 10/18/18 at 09:01; Status DC Furosemide (Lasix) 40 mg 1X ONCE IVP Last administered on 10/11/18 08:36; Start 10/11/18 at 09:00; Stop 10/11/18 at 09:01; Status DC Lisinopril (Prinivil) 10 mg DAILY PO Last administered on 10/14/18 08:03; Start 10/11/18 at 14:00; Stop 10/15/18 at 09:46; Status DC Furosemide (Lasix) 40 mg DAILY IVP Last administered on 10/18/18at 08:40; Start 10/12/18 at 12:30; Stop 10/18/18 at 14:22; Status DC Amlodipine Besylate (Norvasc) 5 mg DAILY PO Last administered on 10/26/18 09:03; Start 10/12/18 at 12:30 Hydralazine HCl (Apresoline Inj) 10 mg PRN Q4HRS PRN IVP ELEVATED BP, SEE COMMENTS Last administered on 10/24/18at 00:36; Start 10/12/18 at 11:45 Insulin Glargine (Lantus) 10 units QHS SQ Last administered on 10/26/18 00:15; Start 10/13/18 at 21:00 Ondansetron HCl (Zofran) 4 mg PRN Q6HRS PRN IV NAUSEA/VOMITING; Start 10/16/18 at 07:00; Stop 10/17/18 at 06:59; Status DC Fentanyl Citrate (Fentanyl 2ml Vial) 25 mcg PRN Q5MIN PRN IV MILD PAIN 1-3; Start 10/16/18 at 07:00; Stop 10/17/18 at 06:59; Status DC Fentanyl Citrate (Fentanyl 2ml Vial) 50 mcg PRN Q5MIN PRN IV MODERATE TO SEVERE PAIN Last administered on 10/17/18at 00:36; Start 10/16/18 at 07:00; Stop 10/17/18 at 06:59; Status DC Morphine Sulfate (Morphine Sulfate) 1 mg PRN Q10MIN PRN IV SEVERE PAIN 7-10; Start 10/16/18 at 07:00; Stop 10/17/18 at 06:59; Status DC Ringer's Solution 1,000 ml @ 30 mls/hr Q24H IV ; Start 10/16/18 at 07:00; Stop 10/16/18 at 18:59; Status DC Lidocaine HCl (Xylocaine-Mpf 1% 2ml Vial) 2 ml PRN 1X PRN ID PRIOR TO IV START; Start 10/16/18 at 07:00; Stop 10/17/18 at 06:59; Status DC Hydromorphone HCl (Dilaudid) 0.5 mg PRN Q10MIN PRN IV SEV PAIN, Second choice; Start 10/16/18 at 07:00; Stop 10/17/18 at 06:59; Status DC Prochlorperazine Edisylate (Compazine) 5 mg PACU PRN PRN IV NAUSEA, MRX1; Start 10/16/18 at 07:00; Stop 10/17/18 at 06:59; Status DC Fentanyl Citrate (Fentanyl 2ml Vial) 50 mcg PRN Q2HR PRN IV PAIN, 2ND CHOICE Last administered on 10/23/18at 06:51; Start 10/14/18 at 00:30; Stop 10/23/18 at 09:05; Status DC Methylprednisolone Sodium Succinate (SOLU-Medrol 40MG VIAL) 40 mg Q12HR IV Last administered on 10/15/18at 08:28; Start 10/14/18 at 21:00; Stop 10/15/18 at 09:16; Status DC Methylprednisolone Sodium Succinate (SOLU-Medrol 40MG VIAL) 40 mg DAILY IV Last administered on 10/20/18at 08:05; Start 10/16/18 at 09:00; Stop 10/20/18 at 13:10; Status DC Sodium Chloride 500 ml @ 500 mls/hr 1X ONCE IV Last administered on 10/15/18at 09:59; Start 10/15/18 at 09:30; Stop 10/15/18 at 10:29; Status DC Sodium Chloride 1,000 ml @ 75 mls/hr [id number] IV Last administered on 10/17/18at 05:19; Start 10/15/18 at 11:45; Stop 10/17/18 at 17:11; Status DC Bisacodyl (Dulcolax Supp) 10 mg PRN DAILY PRN [place] CONSTIPATION Last administered on 10/25/18at 11:31; Start 10/15/18 at 13:30 Midazolam HCl (Versed) 2 mg STK-MED ONCE .ROUTE ; Start 10/16/18 at 12:36; Stop 10/16/18 at 12:37; Status DC Fentanyl Citrate (Fentanyl 2ml Vial) 100 mcg STK-MED ONCE .ROUTE ; Start at 12:36; Stop 10/16/18 at 12:37; Status DC Rocuronium [place] (Zemuron) 50 mg STK-MED ONCE .ROUTE ; Start 10/16/18 at 12:36 ; Stop 10/16/18 at 12:37; Status DC Neostigmine Methylsulfate (Neostigmine Methylsulfate) 5 mg STK-MED ONCE .ROUTE ; Start 10/16/18 at 13:27; Stop 10/16/18 at 13:28; Status DC Glycopyrrolate (Robinul) 1 mg STK-MED ONCE .ROUTE ; Start 10/16/18 at 13:27; Stop 10/16/18 at 13:28; Status DC Sevoflurane (Ultane) 30 ml STK-MED ONCE IH ; Start 10/16/18 at 13:36; Stop 10/16/18 at 13:37; Status DC Ringer's Solution 1,000 ml @ 50 mls/hr Q20H IV ; Start 10/17/18 at 07:00; Stop 10/17/18 at 18:59; Status DC Atorvastatin Calcium (Lipitor) 10 mg QHS PO Last administered on 10/25/18at 20:52; Start 10/17/18 at 21:00 Sodium Chloride 1,000 ml @ 75 mls/hr [id number] IV Last administered on 10/18/18at 08:48; Start 10/17/18 at 17:15; Stop 10/18/18 at 14:22; Status DC Aspirin (Children'S Aspirin) 81 mg DAILYWBKFT PO Last administered on 10/26/18 09:02; Start 10/19/18 at 08:00 Furosemide (Lasix) 40 mg DAILY PO Last administered on 10/26/18 09:02; Start 10/19/18 at 09:00 Metoclopramide HCl (Reglan Vial) 5 mg QIDACHS IV Last administered on 10/20/18at 11:09; Start 10/19/18 at 11:30; Stop 10/20/18 at 12:42; Status DC Alteplase, Recombinant (Cathflo For Central Catheter Clearance) 1 mg 1X ONCE INT CAT Last administered on 10/19/18at 17:05; Start 10/19/18 at 16:45; Stop 10/19/18 at 16:48; Status DC Alteplase, Recombinant (Cathflo For Central Catheter Clearance) 1 mg 1X ONCE INT CAT Last administered on 10/19/18at 17:05; Start 10/19/18 at 16:45; Stop 10/19/18 at 16:48; Status DC Fluconazole (Diflucan) 200 mg DAILY PO Last administered on 10/26/18at 09:03; Start 10/20/18 at 11:00 Info (Tpn Per Pharmacy) 1 each PRN DAILY PRN MC SEE COMMENTS Last administered on 10/22/18at 12:16; Start 10/20/18 at 10:00; Stop 10/22/18 at 21:59; Status DC Lorazepam (Ativan Inj) 1 mg PRN Q6HRS PRN IV ANXIETY / AGITATION Last administered on 10/23/18at 10:07; Start 10/20/18 at 10:30; Stop 10/23/18 at 17:29; Status DC Sodium Chloride 20 meq/Potassium Acetate 50 meq/ Potassium Phosphate 13.6 mmol/Magnesium Sulfate 10 meq/ Calcium Gluconate 10 meq/ Multivitamins 10 ml/Chromium/ Copper/Manganese/ Seleni/Zn 1 ml/ Total Parenteral Nutrition/Amino Acids/Dextrose/ Fat Emulsion Intravenous 1,512 ml @ 63 mls/hr TPN CONT IV Last administered on 10/20/18at 21:59; Start 10/20/18 at 22:00; Stop 10/21/18 at 21:59; Status DC Metoclopramide HCl (Reglan Vial) 10 mg QIDACHS IV Last administered on 10/24/18at 20:19; Start 10/20/18 at 16:30; Stop 10/25/18 at 10:14; Status DC Dexmedetomidine HCl 200 mcg/ Sodium Chloride 50 ml @ 0 mls/hr CONT PRN IV PER PROTOCOL; Start 10/20/18 at 15:15; Status UNV Sodium Chloride 500 ml @ 500 mls/hr 1X PRN PRN IV SEE COMMENTS; Start 10/20/18 at 15:15; Status UNV Atropine Sulfate (ATROPINE 0.5mg SYRINGE) 0.5 mg PRN Q5MIN PRN IV SEE COMMENTS; Start 10/20/18 at 15:15; Status UNV Sodium Chloride 10 meq/Potassium Acetate 50 meq/ Potassium Phosphate 15 mmol/ Magnesium Sulfate 8 meq/Calcium Gluconate 10 meq/ Multivitamins 10 ml/Chromium/ Copper/Manganese/ Seleni/Zn 1 ml/ Total Parenteral Nutrition/Amino Acids/Dextrose/ Fat Emulsion Intravenous 1,512 ml @ 63 mls/hr TPN CONT IV Last administered on 10/21/18at 21:35; Start 10/21/18 at 22:00; Stop 10/22/18 at 21:59; Status DC Iohexol (Omnipaque 300 Mg/ml) 75 ml 1X ONCE IV Last administered on 10/21/18at 20:54; Start 10/21/18 at 20:00; Stop 10/21/18 at 20:01; Status DC Iohexol (Omnipaque 240 Mg/ml) 30 ml 1X ONCE PO Last administered on 10/21/18at 19:35; Start 10/21/18 at 20:00; Stop 10/21/18 at 20:01; Status DC Info (CONTRAST GIVEN -- Rx MONITORING) 1 each PRN DAILY PRN MC SEE COMMENTS; Start 10/21/18 at 20:00; Stop 10/23/18 at 19:59; Status DC Albuterol/ Ipratropium (Duoneb) 3 ml Q4HRS NEB Last administered on 10/26/18at 08:46; Start 10/22/18 at 08:00 Budesonide (Pulmicort) 0.5 mg RTBID NEB Last administered on 10/26/18 08:00; Start 10/22/18 at 08:00 Lorazepam (Ativan) 1 mg PRN Q6HRS PRN PEG ANXIETY / AGITATION Last administered on 10/23/18 10:07; Start 10/23/18 at 09:15 Acetaminophen/ Hydrocodone Bitart (Lortab 5/325) 1 tab PRN Q6HRS PRN PO MODERATE-SEVERE PAIN Last administered on 10/25/18 09:13; Start 10/23/18 at 09:15 Lorazepam (Ativan Inj) 2 mg PRN Q6HRS PRN IV ANXIETY / AGITATION Last administered on 10/25/18 22:00; Start 10/23/18 at 17:30 Polyethylene Glycol (miraLAX PACKET) 17 gm DAILY PEG Last administered on 10/26/18 09:02; Start 10/24/18 at 10:00 Polyethylene Glycol (miraLAX PACKET) 17 gm PRN DAILY PRN PEG CONSTIPATION; Start 10/24/18 at 09:45 Lactulose (Lactulose) 20 gm PRN TID PRN PO CONSTIPATION; Start 10/25/18 at 08:45 Metoclopramide HCl (Reglan Oral Solution) 10 mg QIDACHS PEG Last administered on 10/26/18 09:02; Start 10/25/18 at 11:30 Lansoprazole (Prevacid) 30 mg DAILY FT Last administered on 10/26/18 09:02; Start 10/25/18 at 12:00 Alteplase, Recombinant (Cathflo For Central Catheter Clearance) 1 mg 1X ONCE INT CAT Last administered on 10/25/18 14:05; Start 10/25/18 at 14:00; Stop 10/25/18 at 14:01; Status DC Active Scripts Active Reported Proair Hfa (Albuterol Sulfate) 8.5 Gm Hfa.aer.ad 1 Puff INH PRN Q6HRS PRN Oxazepam 30 Mg Capsule 30 Mg PO QHS Vitals/I & O Vital Sign - Last 24 Hours 10/25/18 10/25/18 10/25/18 10/25/18 09:13 09:14 10:00 10:15 Temp 97.6 97.6 Pulse 85 80 Resp 19 B/P (MAP) 150/83 114/55 (74) Pulse Ox 98 98 O2 Delivery Ventilator Ventilator Ventilator 10/25/18 10/25/18 10/25/18 10/25/18 10:16 11:00 12:00 12:00 Temp 97.8 97.7 97.8 97.7 Pulse 67 74 Resp 17 B/P (MAP) 132/58 (82) 94/74 (81) Pulse Ox 99 100 O2 Delivery Ventilator Ventilator Ventilator Mechanical Ventilator 10/25/18 10/25/18 10/25/18 10/25/18 12:19 13:00 13:09 13:26 Temp 97.7 97.7 Pulse 100 B/P (MAP) 119/48 (71) Pulse Ox 98 98 O2 Delivery Ventilator Tracheal Collar Ventilator Tracheal Collar O2 Flow Rate 15.0 10/25/18 10/25/18 10/25/18 10/25/18 14:00 15:00 15:45 16:00 Temp 97.7 97.7 97.7 97.7 Pulse 100 80 Resp 25 B/P (MAP) 160/56 (90) 143/59 (87) Pulse Ox 98 98 96 O2 Delivery Tracheal Collar Mechanical Ventilator O2 Flow Rate 15.0 15.0 15.0 10/25/18 10/25/18 10/25/18 10/25/18 16:00 16:14 16:44 17:18 Temp 97.7 97.7 97.7 97.7 Pulse 98 99 Resp 30 30 27 B/P (MAP) 151/70 (97) 164/61 (95) Pulse Ox 96 96 96 O2 Delivery TRACH MASK O2 Flow Rate 13.0 15.0 15.0 13.0 10/25/18 10/25/18 10/25/18 10/25/18 18:07 19:00 19:45 19:45 Temp 97.7 97.7 Pulse 99 96 Resp 30 B/P (MAP) 164/61 (95) 136/60 (85) Pulse Ox 96 96 95 95 O2 Delivery Tracheal Collar Tracheal Collar Tracheal Collar O2 Flow Rate 13.0 15.0 15.0 10/25/18 10/25/18 10/25/18 10/25/18 20:00 20:00 21:00 22:00 Temp 96.8 96.8 Pulse 102 98 110 Resp 36 24 B/P (MAP) 151/58 (89) 122/57 (78) 149/65 (93) Pulse Ox 97 97 94 O2 Delivery Trach Collar Tracheal Collar Ventilator Ventilator O2 Flow Rate 15.0 10/25/18 10/25/18 10/25/18 10/26/18 23:00 23:30 23:59 00:00 Temp 98.4 98.4 Pulse 90 92 Resp 24 B/P (MAP) 101/55 (70) 157/63 (94) Pulse Ox 97 98 99 O2 Delivery Ventilator Ventilator Ventilator Mechanical Ventilator 10/26/18 10/26/18 10/26/18 10/26/18 01:00 01:36 02:00 02:05 Pulse 108 96 Resp B/P (MAP) 153/68 (96) 147/76 (99) Pulse Ox 98 99 98 100 O2 Delivery Ventilator Ventilator Ventilator Ventilator 10/26/18 10/26/18 10/26/18 10/26/18 03:00 03:33 04:00 04:00 Temp 98.8 98.8 Pulse 96 86 Resp 22 B/P (MAP) 147/76 (99) 83/50 (61) Pulse Ox 99 98 100 O2 Delivery Ventilator Ventilator Ventilator Mechanical Ventilator 10/26/18 10/26/18 10/26/18 10/26/18 04:30 05:00 05:50 06:00 Pulse 86 86 89 Resp 28 B/P (MAP) 96/51 (66) 84/46 (59) 150/55 (86) Pulse Ox 99 98 98 95 O2 Delivery Ventilator Ventilator Ventilator Ventilator 10/26/18 10/26/18 08:47 09:03 Pulse 94 B/P (MAP) 130/78 Pulse Ox 100 O2 Delivery Ventilator Intake and Output 10/25/18 10/25/18 10/26/18 15:00 23:00 07:00 Intake Total 733 ml 950 ml 1324 ml Output Total 325 ml 2810 ml 535 ml Balance 408 ml -1860 ml 789 ml OSMANI STEVENS MD October 26, 2018 09:13
--- NOTE | 2018-10-26 09:30 | PDOC ---
Subjective: Subjective: Stooled yesterday, has "a little" abd pain, wants pillows adjusted. Objective: Objective: Reviewed w/ RN - reports of increased residual last night, but now none - erinn erating tube feeds and stooling. Vital Signs: Vital Signs Date Time Temp Pulse Resp B/P (MAP) Pulse Ox O2 Delivery O2 Flow Rate FiO2 10/26/18 09:03 94 130/78 10/26/18 08:47 100 Ventilator 10/26/18 06:00 28 10/26/18 04:00 98.8 98.8 10/25/18 20:00 15.0 Labs: Laboratory Tests Test 10/25/18 11:28 10/25/18 18:01 10/26/18 00:10 10/26/18 05:45 Glucose (Fingerstick) 160 mg/dL 169 mg/dL 144 mg/dL White Blood Count 6.7 x10^3/uL Red Blood Count 3.12 x10^6/uL Hemoglobin 9.3 g/dL Hematocrit 29.1 % Mean Corpuscular Volume 93 fL Mean Corpuscular Hemoglobin 30 pg Mean Corpuscular Hemoglobin Concent 32 g/dL Red Cell Distribution Width 16.5 % Platelet Count 126 x10^3/uL Neutrophils (%) (Auto) 74 % Lymphocytes (%) (Auto) 15 % Monocytes (%) (Auto) 6 % Eosinophils (%) (Auto) 5 % Basophils (%) (Auto) 0 % Neutrophils # (Auto) 5.0 x10^3uL Lymphocytes # (Auto) 1.0 x10^3/uL Monocytes # (Auto) 0.4 x10^3/uL Eosinophils # (Auto) 0.3 x10^3/uL Basophils # (Auto) 0.0 x10^3/uL Test 10/26/18 06:10 10/26/18 08:50 Glucose (Fingerstick) 123 mg/dL O2 Saturation 94 % Arterial Blood pH 7.34 Arterial Blood pCO2 at Patient Temp 66 mmHg Arterial Blood pO2 at Patient Temp 78 mmHg Arterial Blood HCO3 35 mmol/L Arterial Blood Base Excess 7 mmol/L FiO2 35 PE: GEN: NAD HEENT: trach - RT was present LUNGS: vent HEART: RRR ABD: PEG covered w/ gauze, minimal drainage under outer bumper NEURO/PSYCH: A & O 3 A/P: Resp failure s/p trach and PEG -- Stable GI-delvalle, continue same. JO-ANN CHONG October 26, 2018 09:30
--- NOTE | 2018-10-26 11:19 | NUR ---
Wound Care: Consult to eval and treat for skin tear to [facility]. LUE red, edematous, friable. Several weeping skin tears noted, cleansed and covered with xeroform, ABD and kerlix. Recommend changing every 1-2 days and PRN saturation. Pt incontinent of bowel, mayito changed, and pt turned to L side, positioned with pillows. Heels floated. On ICU bed. No other open areas noted on head to toe assessment. Plan to follow up 11/02/18
--- NOTE | 2018-10-26 11:22 | PDOC ---
PULMONARY PROGRESS NOTES Subjective PT DID 4 HRS OF CPAP YESTERDAY PT A/A FOLLOWS COMMANDS S/P TRACH 10/16 Vitals Vital Signs Date Time Temp Pulse Resp B/P (MAP) Pulse Ox O2 Delivery O2 Flow Rate FiO2 10/26/18 11:05 99 Ventilator 10/26/18 09:03 94 130/78 10/26/18 09:00 25 10/26/18 08:00 97.7 97.7 10/25/18 20:00 15.0 General: Alert, No acute distress HEENT: Other (nc at perrl nose throat clear, neck no thyromegaly no lad) Lungs: Other (decrease bs) Cardiovascular: S1, S2 Abdomen: Soft, Non-tender, Other (no mass) Neuro Exam: Alert Extremities: Other (trace edema) Skin: Warm Labs Laboratory Tests Test 10/24/18 12:00 10/24/18 12:27 10/24/18 17:47 10/24/18 20:37 O2 Saturation 95 % (92-99) Arterial Blood pH 7.42 (7.35-7.45) Arterial Blood pCO2 at Patient Temp 48 mmHg (35-46) Arterial Blood pO2 at Patient Temp 79 mmHg (65-108) Arterial Blood HCO3 30 mmol/L (21-28) Arterial Blood Base Excess 5 mmol/L (-3-3) FiO2 35 Glucose (Fingerstick) 154 mg/dL (70-99) 141 mg/dL (70-99) 133 mg/dL (70-99) Test 10/25/18 00:03 10/25/18 05:02 10/25/18 08:30 10/25/18 09:00 Glucose (Fingerstick) 147 mg/dL (70-99) 110 mg/dL (70-99) O2 Saturation 96 % (92-99) Arterial Blood pH 7.39 (7.35-7.45) Arterial Blood pCO2 at Patient Temp 58 mmHg (35-46) Arterial Blood pO2 at Patient Temp 85 mmHg (65-108) Arterial Blood HCO3 35 mmol/L (21-28) Arterial Blood Base Excess 8 mmol/L (-3-3) FiO2 35 White Blood Count 10.0 x10^3/uL (4.0-11.0) Red Blood Count 3.42 x10^6/uL (4.30-5.70) Hemoglobin 10.2 g/dL (13.0-17.5) Hematocrit 31.6 % (39.0-53.0) Mean Corpuscular Volume 92 fL (79-100) Mean Corpuscular Hemoglobin 30 pg (25-35) Mean Corpuscular Hemoglobin Concent 32 g/dL (31-37) Red Cell Distribution Width 16.9 % (11.5-14.5) Platelet Count 138 x10^3/uL (140-400) Neutrophils (%) (Auto) 70 % (31-73) Lymphocytes (%) (Auto) 18 % (24-48) Monocytes (%) (Auto) 7 % (0-9) Eosinophils (%) (Auto) 5 % (0-3) Basophils (%) (Auto) 1 % (0-3) Neutrophils # (Auto) 7.0 x10^3uL (1.8-7.7) Lymphocytes # (Auto) 1.8 x10^3/uL (1.0-4.8) Monocytes # (Auto) 0.7 x10^3/uL (0.0-1.1) Eosinophils # (Auto) 0.5 x10^3/uL (0.0-0.7) Basophils # (Auto) 0.1 x10^3/uL (0.0-0.2) Test 10/25/18 11:28 10/25/18 18:01 10/26/18 00:10 10/26/18 05:45 Glucose (Fingerstick) 160 mg/dL (70-99) 169 mg/dL (70-99) 144 mg/dL (70-99) White Blood Count 6.7 x10^3/uL (4.0-11.0) Red Blood Count 3.12 x10^6/uL (4.30-5.70) Hemoglobin 9.3 g/dL (13.0-17.5) Hematocrit 29.1 % (39.0-53.0) Mean Corpuscular Volume 93 fL (79-100) Mean Corpuscular Hemoglobin 30 pg (25-35) Mean Corpuscular Hemoglobin Concent 32 g/dL (31-37) Red Cell Distribution Width 16.5 % (11.5-14.5) Platelet Count 126 x10^3/uL (140-400) Neutrophils (%) (Auto) 74 % (31-73) Lymphocytes (%) (Auto) 15 % (24-48) Monocytes (%) (Auto) 6 % (0-9) Eosinophils (%) (Auto) 5 % (0-3) Basophils (%) (Auto) 0 % (0-3) Neutrophils # (Auto) 5.0 x10^3uL (1.8-7.7) Lymphocytes # (Auto) 1.0 x10^3/uL (1.0-4.8) Monocytes # (Auto) 0.4 x10^3/uL (0.0-1.1) Eosinophils # (Auto) 0.3 x10^3/uL (0.0-0.7) Basophils # (Auto) 0.0 x10^3/uL (0.0-0.2) Test 10/26/18 06:10 10/26/18 08:50 Glucose (Fingerstick) 123 mg/dL (70-99) O2 Saturation 94 % (92-99) Arterial Blood pH 7.34 (7.35-7.45) Arterial Blood pCO2 at Patient Temp 66 mmHg (35-46) Arterial Blood pO2 at Patient Temp 78 mmHg (65-108) Arterial Blood HCO3 35 mmol/L (21-28) Arterial Blood Base Excess 7 mmol/L (-3-3) FiO2 35 Laboratory Tests Test 10/25/18 11:28 10/25/18 18:01 10/26/18 00:10 10/26/18 05:45 Glucose (Fingerstick) 160 mg/dL (70-99) 169 mg/dL (70-99) 144 mg/dL (70-99) White Blood Count 6.7 x10^3/uL (4.0-11.0) Red Blood Count 3.12 x10^6/uL (4.30-5.70) Hemoglobin 9.3 g/dL (13.0-17.5) Hematocrit 29.1 % (39.0-53.0) Mean Corpuscular Volume 93 fL (79-100) Mean Corpuscular Hemoglobin 30 pg (25-35) Mean Corpuscular Hemoglobin Concent 32 g/dL (31-37) Red Cell Distribution Width 16.5 % (11.5-14.5) Platelet Count 126 x10^3/uL (140-400) Neutrophils (%) (Auto) 74 % (31-73) Lymphocytes (%) (Auto) 15 % (24-48) Monocytes (%) (Auto) 6 % (0-9) Eosinophils (%) (Auto) 5 % (0-3) Basophils (%) (Auto) 0 % (0-3) Neutrophils # (Auto) 5.0 x10^3uL (1.8-7.7) Lymphocytes # (Auto) 1.0 x10^3/uL (1.0-4.8) Monocytes # (Auto) 0.4 x10^3/uL (0.0-1.1) Eosinophils # (Auto) 0.3 x10^3/uL (0.0-0.7) Basophils # (Auto) 0.0 x10^3/uL (0.0-0.2) Test 10/26/18 06:10 10/26/18 08:50 Glucose (Fingerstick) 123 mg/dL (70-99) O2 Saturation 94 % (92-99) Arterial Blood pH 7.34 (7.35-7.45) Arterial Blood pCO2 at Patient Temp 66 mmHg (35-46) Arterial Blood pO2 at Patient Temp 78 mmHg (65-108) Arterial Blood HCO3 35 mmol/L (21-28) Arterial Blood Base Excess 7 mmol/L (-3-3) FiO2 35 Medications Active Scripts Medications Dose Route/Sig Max Daily Dose Days Date Category Proair Hfa (Albuterol Sulfate) 8.5 Gm Hfa.aer.ad 1 Puff INH PRN Q6HRS PRN 10/07/18 Reported Oxazepam 30 Mg Capsule 30 Mg PO QHS 10/07/18 Reported Comments cxr reviewed 10/24, trach, l effusion, basal atelectasis Impression . 1. Acute on chronic hypoxemic/ hypercapnic respiratory failure, multifactorial. 2. Acute exacerbation of chronic obstructive pulmonary disease. suspect severe COPD 3. Abnormal x-ray improved. 4. Gram-negative, possible gram-positive pneumonia. 5. No history given of diabetes, hypertension or renal failure. 6. History of alcohol intake, discontinued approximately 4 years ago. 7. Possible sepsis POA, improved 8. Positive mycoplasma serology 9. EF 40%, acute sys chf 10. S/P TRACH 10/16 Plan . 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
[2018-10-26] MEDS: ATORVASTATIN CALCIUM 10 MG TABLET. PO SCH (20:56)
[2018-10-27] VITALS (13 sets, daily range): BP systolic 91–147; BP diastolic 48–66
[2018-10-27] MEDS: INSULIN GLARGINE 300 UNITS/3 ML INSULN.PEN. SQ SCH (01:08)
[2018-10-27] MEDS: IPRATRPIUM/ALBUTEROL 0.5/2.5MG 3 ML NEBU. NEB SCH ×5 (03:16→15:30)
[2018-10-27] MEDS: HYDROcodone/APAP 5/325MG 1 TAB TABLET PO PRN (05:21)
[2018-10-27 06:02] LABS: BASO % 0 % (0-3); EOS # 0.3 x10^3/uL (0.0-0.7); EOS % 3 % (0-3); HEMATOCRIT 29.1 % (39.0-53.0); HEMOGLOBIN 9.6 g/dL (13.0-17.5); LYMPH # 1.1 x10^3/uL (1.0-4.8); LYMPH % 12 % (24-48); MEAN CORPUSCULAR HEMOGLOBIN 31 pg (25-35); MEAN CORPUSCULAR HGB CONC 33 g/dL (31-37); MEAN CORPUSCULAR VOLUME 93 fL (79-100); MONO # 0.6 x10^3/uL (0.0-1.1); MONO % 7 % (0-9); NEUT # 7.2 x10^3uL (1.8-7.7); NEUT % 78 % (31-73); PLATELET COUNT 125 x10^3/uL (140-400); RED BLOOD COUNT 3.14 x10^6/uL (4.30-5.70); RED CELL DISTRIBUTION WIDTH 16.4 % (11.5-14.5); WHITE BLOOD COUNT 9.3 x10^3/uL (4.0-11.0)
[2018-10-27] MEDS: INSULIN LISPRO 300 UNITS/3 ML INSULN.PEN. SQ SCH ×3 (06:10→12:00)
[2018-10-27] MEDS: HEPARIN for SUB-Q USE 5,000 UNIT/ML VIAL. SQ SCH ×2 (06:26→14:00)
--- NOTE | 2018-10-27 07:12 | PDOC ---
Infectious Disease Note Subjective: Subjective pt is awake,doing ok had multiple small bms low grade t max fevers 99.6 no n/v ROS: ROS dw rn Vital Signs: Vital Signs Vital Signs Date Time Temp Pulse Resp B/P (MAP) Pulse Ox O2 Delivery O2 Flow Rate FiO2 10/27/18 06:20 22 98 10/27/18 06:00 88 147/66 (93) Ventilator 10/27/18 04:00 99.6 99.6 Physical Exam: PHYSICAL EXAM GENERAL: awake, alert.comfortable HENT: normal conj. PERRL. Neck : trach, + LUNGS: Clear CV: S1 S2 irregular ABD: Obese, soft, NT, BS present has a PEG feeding running, PEG in place : Jeffers in place EXT: 1 + edema lower extremities, bilaterally. No cyanosis. SKIN: warm without gen rash, SHIELD INSTALLER: awake, no focal deficit Medications: Inpatient Meds: Current Medications Medications (Trade) Dose Ordered Sig/Eric Start Time Stop Time Status Last Admin Dose Admin Acetaminophen (Tylenol) 650 mg PRN Q6HRS PRN 10/07/18 12:45 10/22/18 20:27 650 MG Acetaminophen/ Hydrocodone Bitart (Lortab 5/325) 1 tab PRN Q6HRS PRN 10/23/18 09:15 10/27/18 05:21 1 TAB Albuterol Sulfate (Ventolin Neb Soln) 2.5 mg PRN Q2HR PRN 10/07/18 15:00 Albuterol/ Ipratropium (Duoneb) 3 ml Q4HRS 10/22/18 08:00 10/27/18 03:16 3 ML Alteplase, Recombinant (Cathflo For Central Catheter Clearance) 1 mg 1X ONCE 10/25/18 14:00 10/25/18 14:01 DC 10/25/18 14:05 1 MG Amlodipine Besylate (Norvasc) 5 mg DAILY 10/12/18 12:30 10/26/18 09:03 5 MG Aspirin (Children'S Aspirin) 81 mg DAILYWBKFT 10/19/18 08:00 10/26/18 09:02 81 MG Aspirin (Ecotrin) 81 mg DAILYWBKFT 10/10/18 08:00 10/18/18 09:01 DC 10/18/18 08:39 81 MG Atorvastatin Calcium (Lipitor) 10 mg QHS 10/17/18 21:00 10/26/18 20:56 10 MG Atropine Sulfate (ATROPINE 0.5mg SYRINGE) 0.5 mg PRN Q5MIN PRN 10/20/18 15:15 UNV Bisacodyl (Dulcolax Supp) 10 mg PRN DAILY PRN 10/15/18 13:30 10/25/18 11:31 10 MG Budesonide (Pulmicort) 0.5 mg RTBID 10/22/18 08:00 10/26/18 19:59 0.5 MG Calcium Gluconate (Calcium Gluconate) 1,000 mg 1X ONCE 10/07/18 13:30 10/07/18 13:31 Cancel Calcium Gluconate 1000 mg/Sodium Chloride 110 ml @ 220 mls/hr 1X ONCE 10/07/18 15:00 10/07/18 15:29 DC 10/07/18 14:23 220 MLS/HR Dexmedetomidine HCl 200 mcg/ Sodium Chloride 50 ml @ 0 mls/hr CONT PRN 10/20/18 15:15 UNV Dextrose (Dextrose 50%-Water Syringe) 12.5 gm PRN Q15MIN PRN 10/07/18 12:45 10/27/18 05:58 12.5 GM Doxycycline Hyclate 100 mg/ Dextrose 100 ml @ 50 mls/hr Q12HR 10/09/18 13:00 10/24/18 07:56 DC 10/23/18 23:21 50 MLS/HR Etomidate (Amidate) 20 mg 1X ONCE 10/07/18 11:30 10/07/18 11:33 DC 10/07/18 11:01 20 MG Famotidine (Pepcid Vial) 20 mg QHS 10/08/18 21:00 10/25/18 10:14 DC 10/24/18 20:20 20 MG Fentanyl Citrate (Fentanyl 2ml Vial) 100 mcg STK-MED ONCE 10/16/18 12:36 10/16/18 12:37 DC Fluconazole (Diflucan) 200 mg DAILY 10/20/18 11:00 10/26/18 09:03 200 MG Furosemide (Lasix) 40 mg DAILY 10/19/18 09:00 10/26/18 09:02 40 MG Glycopyrrolate (Robinul) 1 mg STK-MED ONCE 10/16/18 13:27 10/16/18 13:28 DC Heparin Sodium (Porcine) (Heparin Sodium) 5,000 unit Q8HRS 10/07/18 14:00 10/27/18 06:26 5,000 UNIT Hydralazine HCl (Apresoline Inj) 10 mg PRN Q4HRS PRN 10/12/18 11:45 10/24/18 00:36 10 MG Hydromorphone HCl (Dilaudid) 0.5 mg PRN Q10MIN PRN 10/16/18 07:00 10/17/18 06:59 DC Info (CONTRAST GIVEN -- Rx MONITORING) 1 each PRN DAILY PRN 10/21/18 20:00 10/23/18 19:59 DC Info (Tpn Per Pharmacy) 1 each PRN DAILY PRN 10/20/18 10:00 10/22/18 21:59 DC 10/22/18 12:16 1 EACH Insulin Glargine (Lantus) 10 units QHS 10/13/18 21:00 10/27/18 01:08 10 UNITS Insulin Human Lispro (HumaLOG) 0-9 UNITS Q6HRS 10/07/18 18:00 10/27/18 00:00 4 UNITS Insulin Human Regular (HumuLIN R VIAL) 10 unit 1X ONCE 10/07/18 12:45 10/07/18 12:46 DC 10/07/18 13:00 10 UNIT Iohexol (Omnipaque 240 Mg/ml) 30 ml 1X ONCE 10/21/18 20:00 10/21/18 20:01 DC 10/21/18 19:35 30 ML Iohexol (Omnipaque 300 Mg/ml) 75 ml 1X ONCE 10/21/18 20:00 10/21/18 20:01 DC 10/21/18 20:54 75 ML Lactobacillus Rhamnosus (Culturelle) 1 cap BID 10/08/18 09:00 10/09/18 15:58 DC Lactulose (Lactulose) 20 gm PRN TID PRN 10/25/18 08:45 Lansoprazole (Prevacid) 30 mg DAILY 10/25/18 12:00 10/26/18 09:02 30 MG Levofloxacin/ Dextrose 150 ml @ 100 mls/hr Q48H 10/09/18 12:00 10/09/18 12:00 DC Levofloxacin/ Dextrose (Levaquin Per Pharmacy) 1 each PRN DAILY PRN 10/07/18 12:45 10/08/18 07:33 DC Lidocaine HCl (Xylocaine-Mpf 1% 2ml Vial) 2 ml PRN 1X PRN 10/16/18 07:00 10/17/18 06:59 DC Linezolid/Dextrose 300 ml @ 300 mls/hr Q12HR 10/08/18 11:30 10/10/18 07:24 DC 10/09/18 20:58 300 MLS/HR Lisinopril (Prinivil) 10 mg DAILY 10/11/18 14:00 10/15/18 09:46 DC 10/14/18 08:03 10 MG Lorazepam (Ativan Inj) 2 mg PRN Q6HRS PRN 10/23/18 17:30 10/26/18 20:35 2 MG Lorazepam (Ativan) 1 mg PRN Q6HRS PRN 10/23/18 09:15 10/23/18 10:07 1 MG Meropenem 500 mg/ Sodium Chloride 50 ml @ 100 mls/hr Q8HRS 10/07/18 17:00 10/20/18 09:03 DC 10/20/18 05:36 100 MLS/HR Methylprednisolone Sodium Succinate (SOLU-Medrol 40MG VIAL) 40 mg DAILY 10/16/18 09:00 10/20/18 13:10 DC 10/20/18 08:05 40 MG Methylprednisolone Sodium Succinate (SOLU-Medrol 125MG VIAL) 125 mg 1X ONCE 10/07/18 12:00 10/07/18 12:01 DC 10/07/18 11:52 125 MG Metoclopramide HCl (Reglan Oral Solution) 10 mg QIDACHS 10/25/18 11:30 10/26/18 20:56 10 MG Metoclopramide HCl (Reglan Vial) 10 mg QIDACHS 10/20/18 16:30 10/25/18 10:14 DC 10/24/18 20:19 10 MG Midazolam HCl (Versed) 2 mg STK-MED ONCE 10/16/18 12:36 10/16/18 12:37 DC Morphine Sulfate (Morphine Sulfate) 1 mg PRN Q10MIN PRN 10/16/18 07:00 10/17/18 06:59 DC Neostigmine Methylsulfate (Neostigmine Methylsulfate) 5 mg STK-MED ONCE 10/16/18 13:27 10/16/18 13:28 DC Norepinephrine Bitartrate 250 ml @ 1.875 mls/ hr CONT PRN 10/07/18 14:00 10/07/18 14:01 13.125 MLS/HR Ondansetron HCl (Zofran) 4 mg PRN Q6HRS PRN 10/16/18 07:00 10/17/18 06:59 DC Pantoprazole Sodium (PROTONIX VIAL for IV PUSH) 40 mg STK-MED ONCE 10/07/18 12:52 10/07/18 12:55 DC Polyethylene Glycol (miraLAX PACKET) 17 gm PRN DAILY PRN 10/24/18 09:45 Prochlorperazine Edisylate (Compazine) 5 mg PACU PRN PRN 10/16/18 07:00 10/17/18 06:59 DC Ringer's Solution 1,000 ml @ 50 mls/hr Q20H 10/17/18 07:00 10/17/18 18:59 DC Rocuronium [place] (Zemuron) 50 mg STK-MED ONCE 10/16/18 12:36 10/16/18 12:37 DC Sevoflurane (Ultane) 30 ml STK-MED ONCE 10/16/18 13:36 10/16/18 13:37 DC Sodium Polystyrene Sulfonate (Kayexalate) 15 gm 1X ONCE 10/07/18 13:30 10/07/18 13:31 DC 10/07/18 14:10 15 GM Sodium Bicarbonate (Sodium Bicarb Adult 8.4% Syr) 50 meq 1X ONCE 10/07/18 12:45 10/07/18 12:46 DC 10/07/18 13:07 50 MEQ Sodium Chloride 10 meq/Potassium Acetate 50 meq/ Potassium Phosphate 15 mmol/ Magnesium Sulfate 8 meq/Calcium Gluconate 10 meq/ Multivitamins 10 ml/Chromium/ Copper/Manganese/ Seleni/Zn 1 ml/ Total Parenteral Nutrition/Amino Acids/Dextrose/ Fat Emulsion Intravenous 1,512 ml @ 63 mls/hr TPN CONT 10/21/18 22:00 10/22/18 21:59 DC 10/21/18 21:35 63 MLS/HR Sodium Chloride 20 meq/Potassium Acetate 50 meq/ Potassium Phosphate 13.6 mmol/Magnesium Sulfate 10 meq/ Calcium Gluconate 10 meq/ Multivitamins 10 ml/Chromium/ Copper/Manganese/ Seleni/Zn 1 ml/ Total Parenteral Nutrition/Amino Acids/Dextrose/ Fat Emulsion Intravenous 1,512 ml @ 63 mls/hr TPN CONT 10/20/18 22:00 10/21/18 21:59 DC 10/20/18 21:59 63 MLS/HR Succinylcholine Chloride (Anectine) 100 mg 1X ONCE 10/07/18 11:30 10/07/18 11:33 DC 10/07/18 11:01 100 MG Vancomycin HCl 250 ml @ 250 mls/hr 1X ONCE 10/07/18 12:00 10/07/18 12:59 DC 10/07/18 12:27 250 MLS/HR Labs: Lab Laboratory Tests Test 10/26/18 08:50 10/26/18 12:02 10/26/18 17:48 10/27/18 01:03 O2 Saturation 94 % (92-99) Arterial Blood pH 7.34 (7.35-7.45) Arterial Blood pCO2 at Patient Temp 66 mmHg (35-46) Arterial Blood pO2 at Patient Temp 78 mmHg (65-108) Arterial Blood HCO3 35 mmol/L (21-28) Arterial Blood Base Excess 7 mmol/L (-3-3) FiO2 35 Glucose (Fingerstick) 140 mg/dL (70-99) 144 mg/dL (70-99) 163 mg/dL (70-99) Test 10/27/18 05:40 10/27/18 05:53 10/27/18 06:10 White Blood Count 9.3 x10^3/uL (4.0-11.0) Red Blood Count 3.14 x10^6/uL (4.30-5.70) Hemoglobin 9.6 g/dL (13.0-17.5) Hematocrit 29.1 % (39.0-53.0) Mean Corpuscular Volume 93 fL (79-100) Mean Corpuscular Hemoglobin 31 pg (25-35) Mean Corpuscular Hemoglobin Concent 33 g/dL (31-37) Red Cell Distribution Width 16.4 % (11.5-14.5) Platelet Count 125 x10^3/uL (140-400) Neutrophils (%) (Auto) 78 % (31-73) Lymphocytes (%) (Auto) 12 % (24-48) Monocytes (%) (Auto) 7 % (0-9) Eosinophils (%) (Auto) 3 % (0-3) Basophils (%) (Auto) 0 % (0-3) Neutrophils # (Auto) 7.2 x10^3uL (1.8-7.7) Lymphocytes # (Auto) 1.1 x10^3/uL (1.0-4.8) Monocytes # (Auto) 0.6 x10^3/uL (0.0-1.1) Eosinophils # (Auto) 0.3 x10^3/uL (0.0-0.7) Basophils # (Auto) 0.0 x10^3/uL (0.0-0.2) Glucose (Fingerstick) 68 mg/dL (70-99) 114 mg/dL (70-99) Micro micro reviewed Objective: Assessment: Fever - resolved.again low grade Pneumonia + mycoplasma 10/08 - on Doxy 10/09. Sputum cult - routine raheel/ Strep and Legionella - neg UTI, POA staph sap NSTEMI Lactic acidosis - improved Allergy PCN w/ hives and throat swelling; erythromycin w/ hives. Leukocytosis - on steroids - better Hypotension, now off Levophed gtt Acute encephalopathy - improving Acute respiratory failure s/p intubation ALEX - better COPD, O2 dependent Large staghorn calculus lt kidney mild hydronephrosis Plan: Plan of Care Pt is off antibiotics stable fio2 observe closely awaiting transfer to [facility] D/W ENRIQUE CHAMBERS MD October 27, 2018 07:12
[2018-10-27] MEDS: BUDESONIDE 0.5 MG/2 ML NEBU. NEB SCH (07:49)
--- NOTE | 2018-10-27 08:24 | PDOC ---
PROGRESS NOTES Chief Complaint Chief Complaint Acute on chronic hypercapnic and hypoxic respiratory failure s/p Trach and PEG Day 10 End-stage COPD Clinical pneumonia MORBID OBESITY Possible sepsis UTI- Staphylococcus saprophyticus. Greater than 100,000 colony forming units per mL Pneumonia + mycoplasma 10/08 - on Doxy 10/09 azotemia Large left staghorn calculus ICU deconditioning Severe protein calorie malnutrition History of Present Illness History of Present Illness The patient is a 78-year-old male who was admitted on October 07, after being found down unresponsive. He apparently did not lose a pulse. He was intubated upon admission and remains on the ventilator since. He apparently has a history of severe COPD and has been oxygen dependent at home, although according to his , he is not been using his oxygen prior to admit. He has a history of lifelong heavy smoking 3ppd, but did quit 3 years ago. He was a prior heavy ETOH user, has also since quit this. He failed several weaning trials and is s/p tracheostomy and PEG placement on 10/17/2018. Patient was seen and examined in the ICU He has a trach (day 10) remains unable to speak, still is alert and able to communicate. Indicates neck pain, wants to sit up more PEG feeds back on at goal Vent set to spontaneous respirations 14 of pressure support 35% FiO2 Discussed with RN Has been less agitated with increased ativan, morphine and fentanyl requirements when has has large mucous plugs removed. With PEG hydrocodone seems to be more comfortable. He apparently has only had small stool smears, more BM yesterday Will need LTAC for vent weaning 36 minutes CC time Vitals Vitals Vital Signs Date Time Temp Pulse Resp B/P (MAP) Pulse Ox O2 Delivery O2 Flow Rate FiO2 10/27/18 07:40 99 Ventilator 10/27/18 06:20 22 10/27/18 06:00 88 147/66 (93) 10/27/18 04:00 99.6 99.6 Physical Exam Physical Exam GENERAL: awake, alert.comfortable HENT: normal conj. PERRL. Neck : trach, + LUNGS: Clear CV: S1 S2 irregular ABD: Obese, soft, NT, BS present has a PEG feeding running, PEG in place : Jeffers in place EXT: 1 + edema lower extremities, bilaterally. No cyanosis. SKIN: warm without gen rash, CONTROL ROOM HELPER: awake, no focal deficit General: Alert, No acute distress, Other (Tracheostomy/Vent unable to speak) Heart: Regular rate, Normal S1, Normal S2 Lungs: Other (decrease bs) Abdomen: Soft, No tenderness Extremities: No cyanosis, Other (trace edema) Skin: No significant lesion Labs LABS Laboratory Tests Test 10/26/18 08:50 10/26/18 12:02 10/26/18 17:48 10/27/18 01:03 O2 Saturation 94 % (92-99) Arterial Blood pH 7.34 (7.35-7.45) Arterial Blood pCO2 at Patient Temp 66 mmHg (35-46) Arterial Blood pO2 at Patient Temp 78 mmHg (65-108) Arterial Blood HCO3 35 mmol/L (21-28) Arterial Blood Base Excess 7 mmol/L (-3-3) FiO2 35 Glucose (Fingerstick) 140 mg/dL (70-99) 144 mg/dL (70-99) 163 mg/dL (70-99) Test 10/27/18 05:40 10/27/18 05:53 10/27/18 06:10 White Blood Count 9.3 x10^3/uL (4.0-11.0) Red Blood Count 3.14 x10^6/uL (4.30-5.70) Hemoglobin 9.6 g/dL (13.0-17.5) Hematocrit 29.1 % (39.0-53.0) Mean Corpuscular Volume 93 fL (79-100) Mean Corpuscular Hemoglobin 31 pg (25-35) Mean Corpuscular Hemoglobin Concent 33 g/dL (31-37) Red Cell Distribution Width 16.4 % (11.5-14.5) Platelet Count 125 x10^3/uL (140-400) Neutrophils (%) (Auto) 78 % (31-73) Lymphocytes (%) (Auto) 12 % (24-48) Monocytes (%) (Auto) 7 % (0-9) Eosinophils (%) (Auto) 3 % (0-3) Basophils (%) (Auto) 0 % (0-3) Neutrophils # (Auto) 7.2 x10^3uL (1.8-7.7) Lymphocytes # (Auto) 1.1 x10^3/uL (1.0-4.8) Monocytes # (Auto) 0.6 x10^3/uL (0.0-1.1) Eosinophils # (Auto) 0.3 x10^3/uL (0.0-0.7) Basophils # (Auto) 0.0 x10^3/uL (0.0-0.2) Glucose (Fingerstick) 68 mg/dL (70-99) 114 mg/dL (70-99) Assessment and Plan Assessmemt and Plan Problems Medical Problems: (1) Acute respiratory distress Status: Acute (2) CAP (community acquired pneumonia) Status: Acute (3) CHF (congestive heart failure) Status: Acute (4) Elevated liver function tests Status: Acute (5) Elevated troponin I level Status: Acute (6) Hyperkalemia Status: Acute (7) Renal insufficiency Status: Acute (8) Sepsis Status: Acute (9) Unresponsiveness Status: Acute (10) Urinary tract infection Status: Acute Comment Review of Relevant I have reviewed the following items akbar (where applicable) has been applied. Labs Laboratory Tests Test 10/25/18 08:30 10/25/18 09:00 10/25/18 11:28 10/25/18 18:01 O2 Saturation 96 % (92-99) Arterial Blood pH 7.39 (7.35-7.45) Arterial Blood pCO2 at Patient Temp 58 mmHg (35-46) Arterial Blood pO2 at Patient Temp 85 mmHg (65-108) Arterial Blood HCO3 35 mmol/L (21-28) Arterial Blood Base Excess 8 mmol/L (-3-3) FiO2 35 White Blood Count 10.0 x10^3/uL (4.0-11.0) Red Blood Count 3.42 x10^6/uL (4.30-5.70) Hemoglobin 10.2 g/dL (13.0-17.5) Hematocrit 31.6 % (39.0-53.0) Mean Corpuscular Volume 92 fL (79-100) Mean Corpuscular Hemoglobin 30 pg (25-35) Mean Corpuscular Hemoglobin Concent 32 g/dL (31-37) Red Cell Distribution Width 16.9 % (11.5-14.5) Platelet Count 138 x10^3/uL (140-400) Neutrophils (%) (Auto) 70 % (31-73) Lymphocytes (%) (Auto) 18 % (24-48) Monocytes (%) (Auto) 7 % (0-9) Eosinophils (%) (Auto) 5 % (0-3) Basophils (%) (Auto) 1 % (0-3) Neutrophils # (Auto) 7.0 x10^3uL (1.8-7.7) Lymphocytes # (Auto) 1.8 x10^3/uL (1.0-4.8) Monocytes # (Auto) 0.7 x10^3/uL (0.0-1.1) Eosinophils # (Auto) 0.5 x10^3/uL (0.0-0.7) Basophils # (Auto) 0.1 x10^3/uL (0.0-0.2) Glucose (Fingerstick) 160 mg/dL (70-99) 169 mg/dL (70-99) Test 10/26/18 00:10 10/26/18 05:45 10/26/18 06:10 10/26/18 08:50 Glucose (Fingerstick) 144 mg/dL (70-99) 123 mg/dL (70-99) White Blood Count 6.7 x10^3/uL (4.0-11.0) Red Blood Count 3.12 x10^6/uL (4.30-5.70) Hemoglobin 9.3 g/dL (13.0-17.5) Hematocrit 29.1 % (39.0-53.0) Mean Corpuscular Volume 93 fL (79-100) Mean Corpuscular Hemoglobin 30 pg (25-35) Mean Corpuscular Hemoglobin Concent 32 g/dL (31-37) Red Cell Distribution Width 16.5 % (11.5-14.5) Platelet Count 126 x10^3/uL (140-400) Neutrophils (%) (Auto) 74 % (31-73) Lymphocytes (%) (Auto) 15 % (24-48) Monocytes (%) (Auto) 6 % (0-9) Eosinophils (%) (Auto) 5 % (0-3) Basophils (%) (Auto) 0 % (0-3) Neutrophils # (Auto) 5.0 x10^3uL (1.8-7.7) Lymphocytes # (Auto) 1.0 x10^3/uL (1.0-4.8) Monocytes # (Auto) 0.4 x10^3/uL (0.0-1.1) Eosinophils # (Auto) 0.3 x10^3/uL (0.0-0.7) Basophils # (Auto) 0.0 x10^3/uL (0.0-0.2) O2 Saturation 94 % (92-99) Arterial Blood pH 7.34 (7.35-7.45) Arterial Blood pCO2 at Patient Temp 66 mmHg (35-46) Arterial Blood pO2 at Patient Temp 78 mmHg (65-108) Arterial Blood HCO3 35 mmol/L (21-28) Arterial Blood Base Excess 7 mmol/L (-3-3) FiO2 35 Test 10/26/18 12:02 10/26/18 17:48 10/27/18 01:03 10/27/18 05:40 Glucose (Fingerstick) 140 mg/dL (70-99) 144 mg/dL (70-99) 163 mg/dL (70-99) White Blood Count 9.3 x10^3/uL (4.0-11.0) Red Blood Count 3.14 x10^6/uL (4.30-5.70) Hemoglobin 9.6 g/dL (13.0-17.5) Hematocrit 29.1 % (39.0-53.0) Mean Corpuscular Volume 93 fL (79-100) Mean Corpuscular Hemoglobin 31 pg (25-35) Mean Corpuscular Hemoglobin Concent 33 g/dL (31-37) Red Cell Distribution Width 16.4 % (11.5-14.5) Platelet Count 125 x10^3/uL (140-400) Neutrophils (%) (Auto) 78 % (31-73) Lymphocytes (%) (Auto) 12 % (24-48) Monocytes (%) (Auto) 7 % (0-9) Eosinophils (%) (Auto) 3 % (0-3) Basophils (%) (Auto) 0 % (0-3) Neutrophils # (Auto) 7.2 x10^3uL (1.8-7.7) Lymphocytes # (Auto) 1.1 x10^3/uL (1.0-4.8) Monocytes # (Auto) 0.6 x10^3/uL (0.0-1.1) Eosinophils # (Auto) 0.3 x10^3/uL (0.0-0.7) Basophils # (Auto) 0.0 x10^3/uL (0.0-0.2) Test 10/27/18 05:53 10/27/18 06:10 Glucose (Fingerstick) 68 mg/dL (70-99) 114 mg/dL (70-99) Laboratory Tests Test 10/26/18 08:50 10/26/18 12:02 10/26/18 17:48 10/27/18 01:03 O2 Saturation 94 % (92-99) Arterial Blood pH 7.34 (7.35-7.45) Arterial Blood pCO2 at Patient Temp 66 mmHg (35-46) Arterial Blood pO2 at Patient Temp 78 mmHg (65-108) Arterial Blood HCO3 35 mmol/L (21-28) Arterial Blood Base Excess 7 mmol/L (-3-3) FiO2 35 Glucose (Fingerstick) 140 mg/dL (70-99) 144 mg/dL (70-99) 163 mg/dL (70-99) Test 10/27/18 05:40 10/27/18 05:53 10/27/18 06:10 White Blood Count 9.3 x10^3/uL (4.0-11.0) Red Blood Count 3.14 x10^6/uL (4.30-5.70) Hemoglobin 9.6 g/dL (13.0-17.5) Hematocrit 29.1 % (39.0-53.0) Mean Corpuscular Volume 93 fL (79-100) Mean Corpuscular Hemoglobin 31 pg (25-35) Mean Corpuscular Hemoglobin Concent 33 g/dL (31-37) Red Cell Distribution Width 16.4 % (11.5-14.5) Platelet Count 125 x10^3/uL (140-400) Neutrophils (%) (Auto) 78 % (31-73) Lymphocytes (%) (Auto) 12 % (24-48) Monocytes (%) (Auto) 7 % (0-9) Eosinophils (%) (Auto) 3 % (0-3) Basophils (%) (Auto) 0 % (0-3) Neutrophils # (Auto) 7.2 x10^3uL (1.8-7.7) Lymphocytes # (Auto) 1.1 x10^3/uL (1.0-4.8) Monocytes # (Auto) 0.6 x10^3/uL (0.0-1.1) Eosinophils # (Auto) 0.3 x10^3/uL (0.0-0.7) Basophils # (Auto) 0.0 x10^3/uL (0.0-0.2) Glucose (Fingerstick) 68 mg/dL (70-99) 114 mg/dL (70-99) Microbiology 10/07/18 Blood Culture - Final, Complete NO GROWTH AFTER 5 DAYS 10/08/18 - Final, Complete 10/08/18 - Final, Complete 10/08/18 - Final, Complete 10/08/18 - Final, Complete 10/08/18 - Final, Complete 10/08/18 Gram Stain Evaluation - Final, Complete 10/08/18 Sputum Culture - Final, Complete 10/08/18 Sputum Result 1 - Final, Complete 10/07/18 Urine Culture - Final, Complete 10/07/18 Urine Culture Result 1 (ELEN) - Final, Complete 10/07/18 Antimicrobic Susceptibility - Final, Complete Medications Current Medications Sodium Chloride 1,000 ml @ 1,000 mls/hr Q1H IV Last administered on 10/07/18at 11:27; Start 10/07/18 at 10:52; Stop 10/07/18 at 11:51; Status DC Midazolam HCl 100 ml @ 1 mls/hr 1X ONCE IV Last administered on 10/07/18at 11:20; Start 10/07/18 at 11:15; Stop 10/09/18 at 15:55; Status DC Etomidate (Amidate) 20 mg STK-MED ONCE IV ; Start 10/07/18 at 11:13; Stop 10/07/18 at 11:14; Status DC Succinylcholine Chloride (Anectine) 200 mg STK-MED ONCE .ROUTE ; Start 10/07/18 at 11:13; Stop 10/07/18 at 11:14; Status DC Etomidate (Amidate) 20 mg 1X ONCE IV Last administered on 10/07/18at 11:01; Start 10/07/18 at 11:30; Stop 10/07/18 at 11:33; Status DC Succinylcholine Chloride (Anectine) 100 mg 1X ONCE IV Last administered on 10/07/18at 11:01; Start 10/07/18 at 11:30; Stop 10/07/18 at 11:33; Status DC Albuterol Sulfate (Ventolin Neb Soln) 10 mg 1X ONCE CONT NEB ; Start 10/07/18 at 12:00; Stop 10/07/18 at 12:01; Status DC Methylprednisolone Sodium Succinate (SOLU-Medrol 125MG VIAL) 125 mg 1X ONCE IV Last administered on 10/07/18at 11:52; Start 10/07/18 at 12:00; Stop 10/07/18 at 12:01; Status DC Vancomycin HCl 250 ml @ 250 mls/hr 1X ONCE IV Last administered on 10/07/18at 12:27; Start 10/07/18 at 12:00; Stop 10/07/18 at 12:59; Status DC Levofloxacin/ Dextrose 150 ml @ 100 mls/hr 1X ONCE IV Last administered on 10/07/18at 12:28; Start 10/07/18 at 12:00; Stop 10/07/18 at 13:29; Status DC Sodium Chloride 1,000 ml @ 1,000 mls/hr 1X ONCE IV Last administered on 10/07/18at 12:57; Start 10/07/18 at 12:45; Stop 10/07/18 at 13:44; Status DC Sodium Chloride 1,000 ml @ 1,000 mls/hr 1X ONCE IV Last administered on 10/07/18at 12:58; Start 10/07/18 at 12:45; Stop 10/07/18 at 13:44; Status DC Dextrose (Dextrose 50%-Water Syringe) 25 gm 1X ONCE IV Last administered on 10/07/18at 12:59; Start 10/07/18 at 12:45; Stop 10/07/18 at 12:46; Status DC Insulin Human Regular (HumuLIN R VIAL) 10 unit 1X ONCE IV Last administered on 10/07/18at 13:00; Start 10/07/18 at 12:45; Stop 10/07/18 at 12:46; Status DC Sodium Bicarbonate (Sodium Bicarb Adult 8.4% Syr) 50 meq 1X ONCE IV Last administered on 10/07/18at 13:07; Start 10/07/18 at 12:45; Stop 10/07/18 at 12:46; Status DC Sodium Chloride 1,000 ml @ 100 mls/hr Q10H IV ; Start 10/07/18 at 16:00; Stop 10/07/18 at 16:00; Status DC Pantoprazole Sodium (PROTONIX VIAL for IV PUSH) 40 mg DAILYAC IVP Last administered on 10/08/18at 08:25; Start 10/07/18 at 13:30; Stop 10/08/18 at 09:54; Status DC Pantoprazole Sodium (PROTONIX VIAL for IV PUSH) 40 mg 1X ONCE IVP ; Start 10/07/18 at 12:45; Stop 10/07/18 at 12:46; Status UNV Heparin Sodium (Porcine) (Heparin Sodium) 5,000 unit Q8HRS SQ Last administered on 10/27/18at 06:26; Start 10/07/18 at 14:00 Levofloxacin/ Dextrose (Levaquin Per Pharmacy) 1 each PRN DAILY PRN MC SEE COMMENTS; Start 10/07/18 at 12:45; Stop 10/08/18 at 07:33; Status DC Insulin Human Lispro (HumaLOG) 0-9 UNITS TIDWMEALS SQ ; Start 10/07/18 at 17:00; Stop 10/07/18 at 17:00; Status DC Dextrose (Dextrose 50%-Water Syringe) 12.5 gm PRN Q15MIN PRN IV SEE COMMENTS Last administered on 10/27/18at 05:58; Start 10/07/18 at 12:45 Albuterol/ Ipratropium (Duoneb) 3 ml RTQID NEB ; Start 10/07/18 at 16:00; Status Cancel Methylprednisolone Sodium Succinate (SOLU-Medrol 40MG VIAL) 40 mg Q8HRS IV Last administered on 10/14/18at 05:48; Start 10/07/18 at 22:00; Stop 10/14/18 at 09:29; Status DC Acetaminophen (Tylenol) 650 mg PRN Q6HRS PRN PEG MILD PAIN / TEMP Last administered on 10/22/18at 20:27; Start 10/07/18 at 12:45 Morphine Sulfate (Morphine Sulfate) 2 mg PRN Q2HR PRN IV PAIN, 1ST CHOICE Last administered on 10/26/18at 16:30; Start 10/07/18 at 12:45 Ondansetron HCl (Zofran) 4 mg PRN Q6HRS PRN IV NAUSEA/VOMITING Last administered on 10/24/18at 15:59; Start 10/07/18 at 12:45 Norepinephrine Bitartrate 250 ml @ 1.875 mls/ hr CONT PRN IV SEE I/O RECORD Last administered on 10/07/18at 14:01; Start 10/07/18 at 14:00 Sodium Chloride 1,000 ml @ 150 mls/hr Q6H40M IV Last administered on 10/08/18at 15:09; Start 10/07/18 at 14:00; Stop 10/08/18 at 13:59; Status DC Calcium Gluconate (Calcium Gluconate) 1,000 mg 1X ONCE IVP ; Start 10/07/18 at 13:30; Stop 10/07/18 at 13:31; Status Cancel Sodium Polystyrene Sulfonate (Kayexalate) 15 gm 1X ONCE PO Last administered on 10/07/18at 14:10; Start 10/07/18 at 13:30; Stop 10/07/18 at 13:31; Status DC Pantoprazole Sodium (PROTONIX VIAL for IV PUSH) 40 mg STK-MED ONCE IVP ; Start 10/07/18 at 12:52; Stop 10/07/18 at 12:55; Status DC Levofloxacin/ Dextrose 150 ml @ 100 mls/hr Q48H IV ; Start 10/09/18 at 12:00; Stop 10/09/18 at 12:00; Status DC Calcium Gluconate 1000 mg/Sodium Chloride 110 ml @ 220 mls/hr 1X ONCE IV Last administered on 10/07/18at 14:23; Start 10/07/18 at 15:00; Stop 10/07/18 at 15:29; Status DC Sodium Chloride 1,000 ml @ 1,000 mls/hr 1X ONCE IV Last administered on 10/07/18at 14:50; Start 10/07/18 at 15:00; Stop 10/07/18 at 15:59; Status DC Sodium Chloride 1,000 ml @ 999 mls/hr 1X ONCE IV ; Start 10/07/18 at 15:00; Stop 10/07/18 at 16:00; Status DC Albuterol Sulfate (Ventolin Neb Soln) 2.5 mg PRN Q2HR PRN NEB [id number]; Start 10/07/18 at 15:00 Albuterol/ Ipratropium (Duoneb) 3 ml RTQID NEB Last administered on 10/21/18at 19:45; Start 10/07/18 at 16:00; Stop 10/22/18 at 06:29; Status DC Insulin Human Lispro (HumaLOG) 0-9 UNITS Q6HRS SQ Last administered on 10/27/18at 00:00; Start 10/07/18 at 18:00 Meropenem 500 mg/ Sodium Chloride 50 ml @ 100 mls/hr Q8HRS IV Last administered on 10/20/18at 05:36; Start 10/07/18 at 17:00; Stop 10/20/18 at 09:03; Status DC Midazolam HCl 100 ml @ 5 mls/hr CONT PRN IV SEE I/O RECORD Last administered on 10/18/18at 18:44; Start 10/08/18 at 04:15; Stop 10/23/18 at 07:49; Status DC Lactobacillus Rhamnosus (Culturelle) 1 cap BID PO ; Start 10/08/18 at 09:00; Stop 10/09/18 at 15:58; Status DC Famotidine (Pepcid Vial) 20 mg QHS IVP Last administered on 10/24/18at 20:20; Start 10/08/18 at 21:00; Stop 10/25/18 at 10:14; Status DC Linezolid/Dextrose 300 ml @ 300 mls/hr Q12HR IV Last administered on 10/09/18at 20:58; Start 10/08/18 at 11:30; Stop 10/10/18 at 07:24; Status DC Doxycycline Hyclate 100 mg/ Dextrose 100 ml @ 50 mls/hr Q12HR IV Last administered on 10/23/18at 23:21; Start 10/09/18 at 13:00; Stop 10/24/18 at 07:56; Status DC Aspirin (Ecotrin) 81 mg DAILYWBKFT PO Last administered on 10/18/18at 08:39; Start 10/10/18 at 08:00; Stop 10/18/18 at 09:01; Status DC Furosemide (Lasix) 40 mg 1X ONCE IVP Last administered on 10/11/18at 08:36; Start 10/11/18 at 09:00; Stop 10/11/18 at 09:01; Status DC Lisinopril (Prinivil) 10 mg DAILY PO Last administered on 10/14/18at 08:03; Start 10/11/18 at 14:00; Stop 10/15/18 at 09:46; Status DC Furosemide (Lasix) 40 mg DAILY IVP Last administered on 10/18/18at 08:40; Start 10/12/18 at 12:30; Stop 10/18/18 at 14:22; Status DC Amlodipine Besylate (Norvasc) 5 mg DAILY PO Last administered on 10/26/18at 09:03; Start 10/12/18 at 12:30 Hydralazine HCl (Apresoline Inj) 10 mg PRN Q4HRS PRN IVP ELEVATED BP, SEE COMMENTS Last administered on 10/24/18at 00:36; Start 10/12/18 at 11:45 Insulin Glargine (Lantus) 10 units QHS SQ Last administered on 10/27/18at 01:08; Start 10/13/18 at 21:00 Ondansetron HCl (Zofran) 4 mg PRN Q6HRS PRN IV NAUSEA/VOMITING; Start 10/16/18 at 07:00; Stop 10/17/18 at 06:59; Status DC Fentanyl Citrate (Fentanyl 2ml Vial) 25 mcg PRN Q5MIN PRN IV MILD PAIN 1-3; Start 10/16/18 at 07:00; Stop 10/17/18 at 06:59; Status DC Fentanyl Citrate (Fentanyl 2ml Vial) 50 mcg PRN Q5MIN PRN IV MODERATE TO SEVERE PAIN Last administered on 10/17/18at 00:36; Start 10/16/18 at 07:00; Stop 10/17/18 at 06:59; Status DC Morphine Sulfate (Morphine Sulfate) 1 mg PRN Q10MIN PRN IV SEVERE PAIN 7-10; Start 10/16/18 at 07:00; Stop 10/17/18 at 06:59; Status DC Ringer's Solution 1,000 ml @ 30 mls/hr Q24H IV ; Start 10/16/18 at 07:00; Stop 10/16/18 at 18:59; Status DC Lidocaine HCl (Xylocaine-Mpf 1% 2ml Vial) 2 ml PRN 1X PRN ID PRIOR TO IV START; Start 10/16/18 at 07:00; Stop 10/17/18 at 06:59; Status DC Hydromorphone HCl (Dilaudid) 0.5 mg PRN Q10MIN PRN IV SEV PAIN, Second choice; Start 10/16/18 at 07:00; Stop 10/17/18 at 06:59; Status DC Prochlorperazine Edisylate (Compazine) 5 mg PACU PRN PRN IV NAUSEA, MRX1; Start 10/16/18 at 07:00; Stop 10/17/18 at 06:59; Status DC Fentanyl Citrate (Fentanyl 2ml Vial) 50 mcg PRN Q2HR PRN IV PAIN, 2ND CHOICE Last administered on 10/23/18at 06:51; Start 10/14/18 at 00:30; Stop 10/23/18 at 09:05; Status DC Methylprednisolone Sodium Succinate (SOLU-Medrol 40MG VIAL) 40 mg Q12HR IV Last administered on 10/15/18at 08:28; Start 10/14/18 at 21:00; Stop 10/15/18 at 09:16; Status DC Methylprednisolone Sodium Succinate (SOLU-Medrol 40MG VIAL) 40 mg DAILY IV Last administered on 10/20/18at 08:05; Start 10/16/18 at 09:00; Stop 10/20/18 at 13:10; Status DC Sodium Chloride 500 ml @ 500 mls/hr 1X ONCE IV Last administered on 10/15/18at 09:59; Start 10/15/18 at 09:30; Stop 10/15/18 at 10:29; Status DC Sodium Chloride 1,000 ml @ 75 mls/hr [id number] IV Last administered on 10/17/18at 05:19; Start 10/15/18 at 11:45; Stop 10/17/18 at 17:11; Status DC Bisacodyl (Dulcolax Supp) 10 mg PRN DAILY PRN CA CONSTIPATION Last administered on 10/25/18at 11:31; Start 10/15/18 at 13:30 Midazolam HCl (Versed) 2 mg STK-MED ONCE .ROUTE ; Start 10/16/18 at 12:36; Stop 10/16/18 at 12:37; Status DC Fentanyl Citrate (Fentanyl 2ml Vial) 100 mcg STK-MED ONCE .ROUTE ; Start 10/16/18 at 12:36; Stop 10/16/18 at 12:37; Status DC Rocuronium [place] (Zemuron) 50 mg STK-MED ONCE .ROUTE ; Start 10/16/18 at 12:36; Stop 10/16/18 at 12:37; Status DC Neostigmine Methylsulfate (Neostigmine Methylsulfate) 5 mg STK-MED ONCE .ROUTE ; Start 10/16/18 at 13:27; Stop 10/16/18 at 13:28; Status DC Glycopyrrolate (Robinul) 1 mg STK-MED ONCE .ROUTE ; Start 10/16/18 at 13:27; Stop 10/16/18 at 13:28; Status DC Sevoflurane (Ultane) 30 ml STK-MED ONCE IH ; Start 10/16/18 at 13:36; Stop 10/16/18 at 13:37; Status DC Ringer's Solution 1,000 ml @ 50 mls/hr Q20H IV ; Start 10/17/18 at 07:00; Stop 10/17/18 at 18:59; Status DC Atorvastatin Calcium (Lipitor) 10 mg QHS PO Last administered on 10/26/18at 20:56; Start 10/17/18 at 21:00 Sodium Chloride 1,000 ml @ 75 mls/hr [id number] IV Last administered on 10/18/18at 08:48; Start 10/17/18 at 17:15; Stop 10/18/18 at 14:22; Status DC Aspirin (Children'S Aspirin) 81 mg DAILYWBKFT PO Last administered on 10/26/18at 09:02; Start 10/19/18 at 08:00 Furosemide (Lasix) 40 mg DAILY PO Last administered on 10/26/18at 09:02; Start 10/19/18 at 09:00 Metoclopramide HCl (Reglan Vial) 5 mg QIDACHS IV Last administered on 10/20/18at 11:09; Start 10/19/18 at 11:30; Stop 10/20/18 at 12:42; Status DC Alteplase, Recombinant (Cathflo For Central Catheter Clearance) 1 mg 1X ONCE INT CAT Last administered on 10/19/18at 17:05; Start 10/19/18 at 16:45; Stop 10/19/18 at 16:48; Status DC Alteplase, Recombinant (Cathflo For Central Catheter Clearance) 1 mg 1X ONCE INT CAT Last administered on 10/19/18at 17:05; Start 10/19/18 at 16:45; Stop 10/19/18 at 16:48; Status DC Fluconazole (Diflucan) 200 mg DAILY PO Last administered on 10/26/18at 09:03; Start 10/20/18 at 11:00 Info (Tpn Per Pharmacy) 1 each PRN DAILY PRN MC SEE COMMENTS Last administered on 10/22/18at 12:16; Start 10/20/18 at 10:00; Stop 10/22/18 at 21:59; Status DC Lorazepam (Ativan Inj) 1 mg PRN Q6HRS PRN IV ANXIETY / AGITATION Last administered on 10/23/18at 10:07; Start 10/20/18 at 10:30; Stop 10/23/18 at 17:29; Status DC Sodium Chloride 20 meq/Potassium Acetate 50 meq/ Potassium Phosphate 13.6 mmol/Magnesium Sulfate 10 meq/ Calcium Gluconate 10 meq/ Multivitamins 10 ml/Chromium/ Copper/Manganese/ Seleni/Zn 1 ml/ Total Parenteral Nutrition/Amino Acids/Dextrose/ Fat Emulsion Intravenous 1,512 ml @ 63 mls/hr TPN CONT IV Last administered on 10/20/18at 21:59; Start 10/20/18 at 22:00; Stop 10/21/18 at 21:59; Status DC Metoclopramide HCl (Reglan Vial) 10 mg QIDACHS IV Last administered on 10/24/18at 20:19; Start 10/20/18 at 16:30; Stop 10/25/18 at 10:14; Status DC Dexmedetomidine HCl 200 mcg/ Sodium Chloride 50 ml @ 0 mls/hr CONT PRN IV PER PROTOCOL; Start 10/20/18 at 15:15; Status UNV Sodium Chloride 500 ml @ 500 mls/hr 1X PRN PRN IV SEE COMMENTS; Start 10/20/18 at 15:15; Status UNV Atropine Sulfate (ATROPINE 0.5mg SYRINGE) 0.5 mg PRN Q5MIN PRN IV SEE COMMENTS; Start 10/20/18 at 15:15; Status UNV Sodium Chloride 10 meq/Potassium Acetate 50 meq/ Potassium Phosphate 15 mmol/ Magnesium Sulfate 8 meq/Calcium Gluconate 10 meq/ Multivitamins 10 ml/Chromium/ Copper/Manganese/ Seleni/Zn 1 ml/ Total Parenteral Nutrition/Amino Acids/Dextrose/ Fat Emulsion Intravenous 1,512 ml @ 63 mls/hr TPN CONT IV Last administered on 10/21/18 21:35; Start 10/21/18 at 22:00; Stop 10/22/18 at 21:59; Status DC Iohexol (Omnipaque 300 Mg/ml) 75 ml 1X ONCE IV Last administered on 10/21/18at 20:54; Start 10/21/18 at 20:00; Stop 10/21/18 at 20:01; Status DC Iohexol (Omnipaque 240 Mg/ml) 30 ml 1X ONCE PO Last administered on 10/21/18 19:35; Start 10/21/18 at 20:00; Stop 10/21/18 at 20:01; Status DC Info (CONTRAST GIVEN -- Rx MONITORING) 1 each PRN DAILY PRN MC SEE COMMENTS; Start 10/21/18 at 20:00; Stop 10/23/18 at 19:59; Status DC Albuterol/ Ipratropium (Duoneb) 3 ml Q4HRS NEB Last administered on 10/27/18at 07:48; Start 10/22/18 at 08:00 Budesonide (Pulmicort) 0.5 mg RTBID NEB Last administered on 10/27/18at 07:49; Start 10/22/18 at 08:00 Lorazepam (Ativan) 1 mg PRN Q6HRS PRN PEG ANXIETY / AGITATION Last administered on 10/23/18at 10:07; Start 10/23/18 at 09:15 Acetaminophen/ Hydrocodone Bitart (Lortab 5/325) 1 tab PRN Q6HRS PRN PO MODERATE-SEVERE PAIN Last administered on 10/27/18 05:21; Start 10/23/18 at 09:15 Lorazepam (Ativan Inj) 2 mg PRN Q6HRS PRN IV ANXIETY / AGITATION Last administered on 10/26/18at 20:35; Start 10/23/18 at 17:30 Polyethylene Glycol (miraLAX PACKET) 17 gm DAILY PEG Last administered on 10/26/18at 09:02; Start 10/24/18 at 10:00 Polyethylene Glycol (miraLAX PACKET) 17 gm PRN DAILY PRN PEG CONSTIPATION; Start 10/24/18 at 09:45 Lactulose (Lactulose) 20 gm PRN TID PRN PO CONSTIPATION; Start 10/25/18 at 08: 45 Metoclopramide HCl (Reglan Oral Solution) 10 mg QIDACHS PEG Last administered on 10/26/18at 20:56; Start 10/25/18 at 11:30 Lansoprazole (Prevacid) 30 mg DAILY FT Last administered on 10/26/18at 09:02; Start 10/25/18 at 12:00 Alteplase, Recombinant (Cathflo For Central Catheter Clearance) 1 mg 1X ONCE INT CAT Last administered on 10/25/18at 14:05; Start 10/25/18 at 14:00; Stop 10/25/18 at 14:01; Status DC Active Scripts Active Reported Proair Hfa (Albuterol Sulfate) 8.5 Gm Hfa.aer.ad 1 Puff INH PRN Q6HRS PRN Oxazepam 30 Mg Capsule 30 Mg PO QHS Vitals/I & O Vital Sign - Last 24 Hours 10/26/18 10/26/18 10/26/18 10/26/18 08:47 09:00 09:00 09:03 Pulse 92 94 Resp 25 B/P (MAP) 146/78 (100) 130/78 Pulse Ox 100 99 O2 Delivery Ventilator Ventilator Mechanical Ventilator 10/26/18 10/26/18 10/26/18 10/26/18 09:48 10:00 11:00 11:05 Pulse 82 92 Resp 21 30 B/P (MAP) 104/51 (68) 127/75 (92) Pulse Ox 100 99 99 99 O2 Delivery Ventilator Ventilator Ventilator Ventilator 10/26/18 10/26/18 10/26/18 10/26/18 11:39 11:44 12:00 12:00 Temp 99.1 99.1 Pulse 110 Resp 26 B/P (MAP) 133/61 (85) Pulse Ox 100 100 99 O2 Delivery Ventilator Ventilator Mechanical Ventilator Ventilator 10/26/18 10/26/18 10/26/18 10/26/18 13:00 13:08 14:00 14:27 Pulse 78 78 Resp 23 22 B/P (MAP) 104/46 (65) 132/59 (83) Pulse Ox 100 100 100 99 O2 Delivery Ventilator Ventilator Ventilator Ventilator 10/26/18 10/26/18 10/26/18 10/26/18 15:00 16:00 16:00 16:20 Temp 99.0 99.0 Pulse 90 103 Resp 32 37 B/P (MAP) 139/64 (89) 163/71 (101) Pulse Ox 98 96 94 O2 Delivery Ventilator Mechanical Ventilator Ventilator Ventilator 10/26/18 10/26/18 10/26/18 10/26/18 16:30 17:00 17:44 18:00 Pulse 99 86 Resp 22 22 B/P (MAP) 100/60 (73) 165/66 (99) Pulse Ox 97 87 100 100 O2 Delivery Ventilator Ventilator Ventilator Ventilator 10/26/18 10/26/18 10/26/18 10/26/18 19:00 19:57 20:00 20:00 Temp 98.8 98.8 Pulse 80 82 Resp 22 29 B/P (MAP) 127/54 (78) 122/62 (82) Pulse Ox 100 100 100 O2 Delivery Ventilator Ventilator Ventilator Mechanical Ventilator 10/26/18 10/26/18 10/26/18 10/26/18 21:00 22:00 22:30 23:00 Pulse 93 110 108 112 Resp 21 39 28 34 B/P (MAP) 143/85 (104) 182/72 (108) 158/77 (104) 170/75 (106) Pulse Ox 100 100 99 96 O2 Delivery Ventilator Ventilator Ventilator Ventilator 10/26/18 10/26/18 10/27/18 10/27/18 23:59 23:59 00:00 01:00 Temp 100.8 100.8 Pulse 104 86 Resp 22 22 B/P (MAP) 97/47 (64) 91/59 (70) Pulse Ox 100 100 100 O2 Delivery Ventilator Ventilator Mechanical Ventilator Ventilator 10/27/18 10/27/18 10/27/18 10/27/18 02:00 03:00 03:14 04:00 Temp 99.6 99.6 Pulse 87 79 78 Resp 22 22 22 B/P (MAP) 102/58 (73) 112/54 (73) 107/48 (67) Pulse Ox 100 100 100 100 O2 Delivery Ventilator Ventilator Ventilator Ventilator 10/27/18 10/27/18 10/27/18 10/27/18 04:00 05:00 05:21 05:33 Pulse 90 Resp 24 40 B/P (MAP) 118/63 (81) Pulse Ox 99 100 100 O2 Delivery Mechanical Ventilator Ventilator Ventilator Ventilator 10/27/18 10/27/18 10/27/18 06:00 06:20 07:40 Pulse 88 Resp 28 22 B/P (MAP) 147/66 (93) Pulse Ox 98 98 99 O2 Delivery Ventilator Ventilator Intake and Output 10/26/18 10/26/18 10/27/18 15:00 23:00 07:00 Intake Total 250 ml 1253 ml 1050 ml Output Total 845 ml 900 ml 335 ml Balance -595 ml 353 ml 715 ml OSMANI STEVENS MD October 27, 2018 08:24
[2018-10-27 08:57] LABS: ALBUMIN 2.6 g/dL (3.4-5.0); ALBUMIN/GLOBULIN RATIO 0.8 (1.0-1.7); CALCIUM 8.9 mg/dL (8.5-10.1); CREATININE 1.1 mg/dL (0.7-1.3); GFR 65.1; POTASSIUM 4.7 mmol/L (3.5-5.1)
[2018-10-27] MEDS: POLYETHYLENE GLYCOL 3350 17 GM PACKET. PEG SCH (09:00)
[2018-10-27] MEDS: LANSOPRAZOLE 30 MG TAB.RAP.DR FT SCH (09:15)
[2018-10-27] MEDS: ASPIRIN CHEWABLE 81 MG TABLET. PO SCH (09:15)
[2018-10-27] MEDS: FLUCONAZOLE 100 MG TABLET. PO SCH (09:15)
[2018-10-27] MEDS: FUROSEMIDE 40 MG TABLET. PO SCH (09:16)
[2018-10-27] MEDS: METOCLOPRAMIDE ORAL SOLN 10 MG/10 ML SOLUTION. PEG SCH ×2 (09:16→11:30)
[2018-10-27] MEDS: amLODIPine BESYLATE 5 MG TABLET PO SCH (09:17)
--- NOTE | 2018-10-27 09:47 | PDOC ---
PULMONARY PROGRESS NOTES Subjective PT DID 4-6 HRS OF TS yesterday PT A/A FOLLOWS COMMANDS S/P TRACH 10/16 Vitals Vital Signs Date Time Temp Pulse Resp B/P (MAP) Pulse Ox O2 Delivery O2 Flow Rate FiO2 10/27/18 09:17 88 147/66 10/27/18 07:40 99 Ventilator 10/27/18 06:20 22 10/27/18 04:00 99.6 99.6 General: Alert, No acute distress HEENT: Other (nc at perrl nose throat clear, neck no thyromegaly no lad) Lungs: Other (decrease bs) Cardiovascular: S1, S2 Abdomen: Soft, Non-tender, Other (no mass) Neuro Exam: Alert Extremities: Other (trace edema) Skin: Warm Labs Laboratory Tests Test 10/25/18 11:28 10/25/18 18:01 10/26/18 00:10 10/26/18 05:45 Glucose (Fingerstick) 160 mg/dL (70-99) 169 mg/dL (70-99) 144 mg/dL (70-99) White Blood Count 6.7 x10^3/uL (4.0-11.0) Red Blood Count 3.12 x10^6/uL (4.30-5.70) Hemoglobin 9.3 g/dL (13.0-17.5) Hematocrit 29.1 % (39.0-53.0) Mean Corpuscular Volume 93 fL (79-100) Mean Corpuscular Hemoglobin 30 pg (25-35) Mean Corpuscular Hemoglobin Concent 32 g/dL (31-37) Red Cell Distribution Width 16.5 % (11.5-14.5) Platelet Count 126 x10^3/uL (140-400) Neutrophils (%) (Auto) 74 % (31-73) Lymphocytes (%) (Auto) 15 % (24-48) Monocytes (%) (Auto) 6 % (0-9) Eosinophils (%) (Auto) 5 % (0-3) Basophils (%) (Auto) 0 % (0-3) Neutrophils # (Auto) 5.0 x10^3uL (1.8-7.7) Lymphocytes # (Auto) 1.0 x10^3/uL (1.0-4.8) Monocytes # (Auto) 0.4 x10^3/uL (0.0-1.1) Eosinophils # (Auto) 0.3 x10^3/uL (0.0-0.7) Basophils # (Auto) 0.0 x10^3/uL (0.0-0.2) Test 10/26/18 06:10 10/26/18 08:50 10/26/18 12:02 10/26/18 17:48 Glucose (Fingerstick) 123 mg/dL (70-99) 140 mg/dL (70-99) 144 mg/dL (70-99) O2 Saturation 94 % (92-99) Arterial Blood pH 7.34 (7.35-7.45) Arterial Blood pCO2 at Patient Temp 66 mmHg (35-46) Arterial Blood pO2 at Patient Temp 78 mmHg (65-108) Arterial Blood HCO3 35 mmol/L (21-28) Arterial Blood Base Excess 7 mmol/L (-3-3) FiO2 35 Test 10/27/18 01:03 10/27/18 05:40 10/27/18 05:53 10/27/18 06:10 Glucose (Fingerstick) 163 mg/dL (70-99) 68 mg/dL (70-99) 114 mg/dL (70-99) White Blood Count 9.3 x10^3/uL (4.0-11.0) Red Blood Count 3.14 x10^6/uL (4.30-5.70) Hemoglobin 9.6 g/dL (13.0-17.5) Hematocrit 29.1 % (39.0-53.0) Mean Corpuscular Volume 93 fL (79-100) Mean Corpuscular Hemoglobin 31 pg (25-35) Mean Corpuscular Hemoglobin Concent 33 g/dL (31-37) Red Cell Distribution Width 16.4 % (11.5-14.5) Platelet Count 125 x10^3/uL (140-400) Neutrophils (%) (Auto) 78 % (31-73) Lymphocytes (%) (Auto) 12 % (24-48) Monocytes (%) (Auto) 7 % (0-9) Eosinophils (%) (Auto) 3 % (0-3) Basophils (%) (Auto) 0 % (0-3) Neutrophils # (Auto) 7.2 x10^3uL (1.8-7.7) Lymphocytes # (Auto) 1.1 x10^3/uL (1.0-4.8) Monocytes # (Auto) 0.6 x10^3/uL (0.0-1.1) Eosinophils # (Auto) 0.3 x10^3/uL (0.0-0.7) Basophils # (Auto) 0.0 x10^3/uL (0.0-0.2) Sodium Level 143 mmol/L (136-145) Potassium Level 4.7 mmol/L (3.5-5.1) Chloride Level 103 mmol/L (98-107) Carbon Dioxide Level 37 mmol/L (21-32) Anion Gap 3 (6-14) Blood Urea Nitrogen 35 mg/dL (8-26) Creatinine 1.1 mg/dL (0.7-1.3) Estimated GFR (Cockcroft-Gault) 65.1 BUN/Creatinine Ratio 32 (6-20) Glucose Level 69 mg/dL (70-99) Calcium Level 8.9 mg/dL (8.5-10.1) Total Bilirubin 1.0 mg/dL (0.2-1.0) Aspartate Amino Transf (AST/SGOT) 18 U/L (15-37) Alanine Aminotransferase (ALT/SGPT) 24 U/L (16-63) Alkaline Phosphatase 60 U/L (46-116) Total Protein 6.0 g/dL (6.4-8.2) Albumin 2.6 g/dL (3.4-5.0) Albumin/Globulin Ratio 0.8 (1.0-1.7) Laboratory Tests Test 10/26/18 12:02 10/26/18 17:48 10/27/18 01:03 10/27/18 05:40 Glucose (Fingerstick) 140 mg/dL (70-99) 144 mg/dL (70-99) 163 mg/dL (70-99) White Blood Count 9.3 x10^3/uL (4.0-11.0) Red Blood Count 3.14 x10^6/uL (4.30-5.70) Hemoglobin 9.6 g/dL (13.0-17.5) Hematocrit 29.1 % (39.0-53.0) Mean Corpuscular Volume 93 fL (79-100) Mean Corpuscular Hemoglobin 31 pg (25-35) Mean Corpuscular Hemoglobin Concent 33 g/dL (31-37) Red Cell Distribution Width 16.4 % (11.5-14.5) Platelet Count 125 x10^3/uL (140-400) Neutrophils (%) (Auto) 78 % (31-73) Lymphocytes (%) (Auto) 12 % (24-48) Monocytes (%) (Auto) 7 % (0-9) Eosinophils (%) (Auto) 3 % (0-3) Basophils (%) (Auto) 0 % (0-3) Neutrophils # (Auto) 7.2 x10^3uL (1.8-7.7) Lymphocytes # (Auto) 1.1 x10^3/uL (1.0-4.8) Monocytes # (Auto) 0.6 x10^3/uL (0.0-1.1) Eosinophils # (Auto) 0.3 x10^3/uL (0.0-0.7) Basophils # (Auto) 0.0 x10^3/uL (0.0-0.2) Sodium Level 143 mmol/L (136-145) Potassium Level 4.7 mmol/L (3.5-5.1) Chloride Level 103 mmol/L (98-107) Carbon Dioxide Level 37 mmol/L (21-32) Anion Gap 3 (6-14) Blood Urea Nitrogen 35 mg/dL (8-26) Creatinine 1.1 mg/dL (0.7-1.3) Estimated GFR (Cockcroft-Gault) 65.1 BUN/Creatinine Ratio 32 (6-20) Glucose Level 69 mg/dL (70-99) Calcium Level 8.9 mg/dL (8.5-10.1) Total Bilirubin 1.0 mg/dL (0.2-1.0) Aspartate Amino Transf (AST/SGOT) 18 U/L (15-37) Alanine Aminotransferase (ALT/SGPT) 24 U/L (16-63) Alkaline Phosphatase 60 U/L (46-116) Total Protein 6.0 g/dL (6.4-8.2) Albumin 2.6 g/dL (3.4-5.0) Albumin/Globulin Ratio 0.8 (1.0-1.7) Test 5/31/19 05:53 10/27/18 06:10 Glucose (Fingerstick) 68 mg/dL (70-99) 114 mg/dL (70-99) Medications Active Scripts Medications Dose Route/Sig Max Daily Dose Days Date Category Proair Hfa (Albuterol Sulfate) 8.5 Gm Hfa.aer.ad 1 Puff INH PRN Q6HRS PRN 10/07/18 Reported Oxazepam 30 Mg Capsule 30 Mg PO QHS 10/07/18 Reported Comments cxr reviewed 10/24, trach, l effusion, basal atelectasis Impression . 1. Acute on chronic hypoxemic/ hypercapnic respiratory failure, multifactorial. 2. Acute exacerbation of chronic obstructive pulmonary disease. suspect severe COPD 3. Abnormal x-ray improved. 4. Gram-negative, possible gram-positive pneumonia. 5. No history given of diabetes, hypertension or renal failure. 6. History of alcohol intake, discontinued approximately 4 years ago. 7. Possible sepsis POA, improved 8. Positive mycoplasma serology 9. EF 40%, acute sys chf 10. S/P TRACH 10/16 Plan . 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
--- NOTE | 2018-10-27 10:09 | NUR ---
SS following up with discharge planning. Discharge orders received for [facility], ; fax [phone]. SS phoned and faxed discharge orders to [facility]. Pt will discharge today and go to [facility] at 1600 via [facility] transport. Pt, pt's RN, and pt's family notified. Packet and [facility] form on the chart.
--- NOTE | 2018-10-27 11:16 | PDOC ---
Objective: Objective: Reviewed w/ RN - tolerating PEG feeds, to transfer to [facility] today. Vital Signs: Vital Signs Date Time Temp Pulse Resp B/P (MAP) Pulse Ox O2 Delivery O2 Flow Rate FiO2 10/27/18 09:17 88 147/66 10/27/18 08:00 Mechanical Ventilator 10/27/18 07:40 99 10/27/18 06:20 22 10/27/18 04:00 99.6 99.6 Labs: Laboratory Tests Test 10/26/18 12:02 10/26/18 17:48 10/27/18 01:03 10/27/18 05:40 Glucose (Fingerstick) 140 mg/dL 144 mg/dL 163 mg/dL White Blood Count 9.3 x10^3/uL Red Blood Count 3.14 x10^6/uL Hemoglobin 9.6 g/dL Hematocrit 29.1 % Mean Corpuscular Volume 93 fL Mean Corpuscular Hemoglobin 31 pg Mean Corpuscular Hemoglobin Concent 33 g/dL Red Cell Distribution Width 16.4 % Platelet Count 125 x10^3/uL Neutrophils (%) (Auto) 78 % Lymphocytes (%) (Auto) 12 % Monocytes (%) (Auto) 7 % Eosinophils (%) (Auto) 3 % Basophils (%) (Auto) 0 % Neutrophils # (Auto) 7.2 x10^3uL Lymphocytes # (Auto) 1.1 x10^3/uL Monocytes # (Auto) 0.6 x10^3/uL Eosinophils # (Auto) 0.3 x10^3/uL Basophils # (Auto) 0.0 x10^3/uL Sodium Level 143 mmol/L Potassium Level 4.7 mmol/L Chloride Level 103 mmol/L Carbon Dioxide Level 37 mmol/L Anion Gap 3 Blood Urea Nitrogen 35 mg/dL Creatinine 1.1 mg/dL Estimated GFR (Cockcroft-Gault) 65.1 BUN/Creatinine Ratio 32 Glucose Level 69 mg/dL Calcium Level 8.9 mg/dL Total Bilirubin 1.0 mg/dL Aspartate Amino Transf (AST/SGOT) 18 U/L Alanine Aminotransferase (ALT/SGPT) 24 U/L Alkaline Phosphatase 60 U/L Total Protein 6.0 g/dL Albumin 2.6 g/dL Albumin/Globulin Ratio 0.8 Test 10/27/18 05:53 10/27/18 06:10 Glucose (Fingerstick) 68 mg/dL 114 mg/dL PE: GEN: NAD LUNGS: vent/trach HEART: RRR ABD: NABS, S/ND/NT, PEG in place NEURO/PSYCH: sleeping, did not awaken A/P: Resp failure s/p trach and PEG -- DC per primary. JO-ANN CHONG October 27, 2018 11:16
[2018-10-27] MEDS: MORPHINE SULFATE 2 MG/ML VIAL. IV PRN (15:26)
--- NOTE | 2018-10-27 15:40 | PDOC3 ---
Discharge Summary Visit Information Date of Admission: October 07, 2018 Date of Discharge: October 27, 2018 Admitting Diagnosis: Acute respiratory distress Final Diagnosis Problems Medical Problems: (1) Acute respiratory distress Status: Acute (2) CAP (community acquired pneumonia) Status: Acute (3) CHF (congestive heart failure) Status: Acute (4) Elevated liver function tests Status: Acute (5) Elevated troponin I level Status: Acute (6) Hyperkalemia Status: Acute (7) Renal insufficiency Status: Acute (8) Sepsis Status: Acute (9) Unresponsiveness Status: Acute (10) Urinary tract infection Status: Acute Brief Hospital Course Allergies Allergies Coded Allergies Type Severity Reaction Last Updated Verified Penicillins Allergy Intermediate 10/17/18 Yes erythromycin base Allergy Intermediate 10/17/18 Yes Vital Signs Vital Signs Date Time Temp Pulse Resp B/P (MAP) Pulse Ox O2 Delivery O2 Flow Rate FiO2 10/27/18 15:26 98 15.0 10/27/18 12:00 Mechanical Ventilator 10/27/18 12:00 80 22 133/66 (88) 10/27/18 07:00 99.0 99.0 Lab Results Laboratory Tests Test 10/25/18 18:01 10/26/18 00:10 10/26/18 05:45 10/26/18 06:10 Glucose (Fingerstick) 169 mg/dL (70-99) 144 mg/dL (70-99) 123 mg/dL (70-99) White Blood Count 6.7 x10^3/uL (4.0-11.0) Red Blood Count 3.12 x10^6/uL (4.30-5.70) Hemoglobin 9.3 g/dL (13.0-17.5) Hematocrit 29.1 % (39.0-53.0) Mean Corpuscular Volume 93 fL (79-100) Mean Corpuscular Hemoglobin 30 pg (25-35) Mean Corpuscular Hemoglobin Concent 32 g/dL (31-37) Red Cell Distribution Width 16.5 % (11.5-14.5) Platelet Count 126 x10^3/uL (140-400) Neutrophils (%) (Auto) 74 % (31-73) Lymphocytes (%) (Auto) 15 % (24-48) Monocytes (%) (Auto) 6 % (0-9) Eosinophils (%) (Auto) 5 % (0-3) Basophils (%) (Auto) 0 % (0-3) Neutrophils # (Auto) 5.0 x10^3uL (1.8-7.7) Lymphocytes # (Auto) 1.0 x10^3/uL (1.0-4.8) Monocytes # (Auto) 0.4 x10^3/uL (0.0-1.1) Eosinophils # (Auto) 0.3 x10^3/uL (0.0-0.7) Basophils # (Auto) 0.0 x10^3/uL (0.0-0.2) Test 10/26/18 08:50 10/26/18 12:02 10/26/18 17:48 10/27/18 01:03 O2 Saturation 94 % (92-99) Arterial Blood pH 7.34 (7.35-7.45) Arterial Blood pCO2 at Patient Temp 66 mmHg (35-46) Arterial Blood pO2 at Patient Temp 78 mmHg (65-108) Arterial Blood HCO3 35 mmol/L (21-28) Arterial Blood Base Excess 7 mmol/L (-3-3) FiO2 35 Glucose (Fingerstick) 140 mg/dL (70-99) 144 mg/dL (70-99) 163 mg/dL (70-99) Test 10/27/18 05:40 10/27/18 05:53 10/27/18 06:10 10/27/18 12:19 White Blood Count 9.3 x10^3/uL (4.0-11.0) Red Blood Count 3.14 x10^6/uL (4.30-5.70) Hemoglobin 9.6 g/dL (13.0-17.5) Hematocrit 29.1 % (39.0-53.0) Mean Corpuscular Volume 93 fL (79-100) Mean Corpuscular Hemoglobin 31 pg (25-35) Mean Corpuscular Hemoglobin Concent 33 g/dL (31-37) Red Cell Distribution Width 16.4 % (11.5-14.5) Platelet Count 125 x10^3/uL (140-400) Neutrophils (%) (Auto) 78 % (31-73) Lymphocytes (%) (Auto) 12 % (24-48) Monocytes (%) (Auto) 7 % (0-9) Eosinophils (%) (Auto) 3 % (0-3) Basophils (%) (Auto) 0 % (0-3) Neutrophils # (Auto) 7.2 x10^3uL (1.8-7.7) Lymphocytes # (Auto) 1.1 x10^3/uL (1.0-4.8) Monocytes # (Auto) 0.6 x10^3/uL (0.0-1.1) Eosinophils # (Auto) 0.3 x10^3/uL (0.0-0.7) Basophils # (Auto) 0.0 x10^3/uL (0.0-0.2) Sodium Level 143 mmol/L (136-145) Potassium Level 4.7 mmol/L (3.5-5.1) Chloride Level 103 mmol/L (98-107) Carbon Dioxide Level 37 mmol/L (21-32) Anion Gap 3 (6-14) Blood Urea Nitrogen 35 mg/dL (8-26) Creatinine 1.1 mg/dL (0.7-1.3) Estimated GFR (Cockcroft-Gault) 65.1 BUN/Creatinine Ratio 32 (6-20) Glucose Level 69 mg/dL (70-99) Calcium Level 8.9 mg/dL (8.5-10.1) Total Bilirubin 1.0 mg/dL (0.2-1.0) Aspartate Amino Transf (AST/SGOT) 18 U/L (15-37) Alanine Aminotransferase (ALT/SGPT) 24 U/L (16-63) Alkaline Phosphatase 60 U/L (46-116) Total Protein 6.0 g/dL (6.4-8.2) Albumin 2.6 g/dL (3.4-5.0) Albumin/Globulin Ratio 0.8 (1.0-1.7) Glucose (Fingerstick) 68 mg/dL (70-99) 114 mg/dL (70-99) 113 mg/dL (70-99) Laboratory Tests Test 10/26/18 17:48 10/27/18 01:03 10/27/18 05:40 10/27/18 05:53 Glucose (Fingerstick) 144 mg/dL (70-99) 163 mg/dL (70-99) 68 mg/dL (70-99) White Blood Count 9.3 x10^3/uL (4.0-11.0) Red Blood Count 3.14 x10^6/uL (4.30-5.70) Hemoglobin 9.6 g/dL (13.0-17.5) Hematocrit 29.1 % (39.0-53.0) Mean Corpuscular Volume 93 fL (79-100) Mean Corpuscular Hemoglobin 31 pg (25-35) Mean Corpuscular Hemoglobin Concent 33 g/dL (31-37) Red Cell Distribution Width 16.4 % (11.5-14.5) Platelet Count 125 x10^3/uL (140-400) Neutrophils (%) (Auto) 78 % (31-73) Lymphocytes (%) (Auto) 12 % (24-48) Monocytes (%) (Auto) 7 % (0-9) Eosinophils (%) (Auto) 3 % (0-3) Basophils (%) (Auto) 0 % (0-3) Neutrophils # (Auto) 7.2 x10^3uL (1.8-7.7) Lymphocytes # (Auto) 1.1 x10^3/uL (1.0-4.8) Monocytes # (Auto) 0.6 x10^3/uL (0.0-1.1) Eosinophils # (Auto) 0.3 x10^3/uL (0.0-0.7) Basophils # (Auto) 0.0 x10^3/uL (0.0-0.2) Sodium Level 143 mmol/L (136-145) Potassium Level 4.7 mmol/L (3.5-5.1) Chloride Level 103 mmol/L (98-107) Carbon Dioxide Level 37 mmol/L (21-32) Anion Gap 3 (6-14) Blood Urea Nitrogen 35 mg/dL (8-26) Creatinine 1.1 mg/dL (0.7-1.3) Estimated GFR (Cockcroft-Gault) 65.1 BUN/Creatinine Ratio 32 (6-20) Glucose Level 69 mg/dL (70-99) Calcium Level 8.9 mg/dL (8.5-10.1) Total Bilirubin 1.0 mg/dL (0.2-1.0) Aspartate Amino Transf (AST/SGOT) 18 U/L (15-37) Alanine Aminotransferase (ALT/SGPT) 24 U/L (16-63) Alkaline Phosphatase 60 U/L (46-116) Total Protein 6.0 g/dL (6.4-8.2) Albumin 2.6 g/dL (3.4-5.0) Albumin/Globulin Ratio 0.8 (1.0-1.7) Test 10/27/18 06:10 10/27/18 12:19 Glucose (Fingerstick) 114 mg/dL (70-99) 113 mg/dL (70-99) Brief Hospital Course The patient is a 78-year-old male who was admitted on October 07, after being found down unresponsive. He apparently did not lose a pulse. He was intubated upon admission and remains on the ventilator since. He apparently has a history of severe COPD and has been oxygen dependent at home, although according to his , he is not been using his oxygen prior to admit. He has a history of lifelong heavy smoking 3ppd, but did quit 3 years ago. He was a prior heavy ETOH user, has also since quit this. He failed several weaning trials and is s/p tr acheostomy and PEG placement on 10/17/2018. Patient was seen and examined in the ICU He has a trach (day 10) remains unable to speak, still is alert and able to communicate. Indicates neck pain, wants to sit up more. PEG feeds back on at goal Vent set to spontaneous respirations 14 of pressure support 35% FiO2 Seen by ID (pneumonia), pulmonology (trach), GI (gastroparesis, PEG) Has been less agitated with increased ativan, morphine and fentanyl requirements when has has large mucous plugs removed. With PEG hydrocodone seems to be more comfortable. He apparently has only had small stool smears, more BM with bowel regimen. Will need LTAC for vent weaning Greater than 30 minutes on discharge Discharge Information Condition at Discharge: Improved Follow Up: Weeks (1) Disposition/Orders: D/C to Another Facility ([facility]) Scheduled Oxazepam (Oxazepam) 30 Mg Capsule, 30 MG PO QHS for anxiety, (Reported) Entered as Reported by: SANDY VILLASEÑOR on 10/07/181655 Last Action: New Order on 10/07/181655 by SANDY VILLASEÑOR Scheduled PRN Albuterol Sulfate (Proair Hfa) 8.5 Gm Hfa.aer.ad, 1 PUFF INH PRN Q6HRS PRN for SHORTNESS OF BREATH, (Reported) Entered as Reported by: SANDY VILLASEÑOR on 10/07/181655 Last Action: New Order on 10/07/181655 by OSMANI AGUSTIN MD October 27, 2018 15:40
--- NOTE | 2018-10-27 15:42 | SNU/HH DC ---
DISCHARGE ORDERS DISCHARGE INFORMATION: DISCHARGE DATE: October 27, 2018 FINAL DIAGNOSIS Problems Medical Problems: (1) Acute respiratory distress Status: Acute (2) CAP (community acquired pneumonia) Status: Acute (3) CHF (congestive heart failure) Status: Acute (4) Elevated liver function tests Status: Acute (5) Elevated troponin I level Status: Acute (6) Hyperkalemia Status: Acute (7) Renal insufficiency Status: Acute (8) Sepsis Status: Acute (9) Unresponsiveness Status: Acute (10) Urinary tract infection Status: Acute CONDITION ON DISCHARGE: Stable CODE STATUS: Code Status: Full LTAC: ADMIT TO LTAC: Yes POST DISCHARGE ORDERS: ACTIVITY ORDERS: Activity as tolerated WEIGHT BEARING STATUS: As tolerated DIET AFTER DISCHARGE: NPO CHECKS AFTER DISCHARGE: CHECKS AFTER DISCHARGE: Check blood press - daily FOLLOW-UP: PHYSICIAN FOLLOW-UP: Pulmonology, ID, GI TREATMENT/EQUIPMENT ORDERS: INFUSION EQUIPMENT NEEDED: PICC Line RESPIRATORY EQUIPMENT NEEDED: Oxygen (Vent/Trach) Physical Therapy For: Evalulation/Treatment Occupational Therapy For: Evaluation/Treatment DISCHARGE MEDICATIONS: Home Meds Reported Medications Albuterol Sulfate (Proair Hfa) 8.5 Gm Hfa.aer.ad, 1 PUFF INH PRN Q6HRS PRN for SHORTNESS OF BREATH, INHALER 10/07/18 Oxazepam (OXAZEPAM) 30 Mg Capsule, 30 MG PO QHS for anxiety, CAP 10/07/18 OSMANI STEVENS MD October 27, 2018 15:42
== END 2018-10-27 16:59 | DRG 4 ==
LOC: ER 10:47 → 1 WEST ICU 11:32
PROVIDERS: ADMIT Internal Medicine; ATTEND Internal Medicine
PROC: 5A1955Z Respiratory Ventilation, Greater than 96 Consecutive Hours (ICD-10-PCS; principal; 2018-10-07)
PROC: 0BH17EZ Insertion of Endotracheal Airway into Trachea, Via Natural or Artificial Opening (ICD-10-PCS; 2018-10-07)
PROC: 02HV33Z Insertion of Infusion Device into Superior Vena Cava, Percutaneous Approach (ICD-10-PCS; 2018-10-07)
PROC: 0B110F4 Bypass Trachea to Cutaneous with Tracheostomy Device, Open Approach (ICD-10-PCS; 2018-10-16)
PROC: 0DH63UZ Insertion of Feeding Device into Stomach, Percutaneous Approach (ICD-10-PCS; 2018-10-17)
PROC: 5A1945Z Respiratory Ventilation, 24-96 Consecutive Hours (ICD-10-PCS; 2018-10-25)
DX: A41.9 Sepsis, unspecified organism (principal); J96.21 Acute and chronic respiratory failure with hypoxia; I21.A1 Myocardial infarction type 2; E43 Unspecified severe protein-calorie malnutrition; I50.43 Acute on chronic combined systolic (congestive) and diastolic (congestive) heart failure; J96.22 Acute and chronic respiratory failure with hypercapnia; J15.7 Pneumonia due to Mycoplasma pneumoniae; G93.40 Encephalopathy, unspecified; I13.0 Hypertensive heart and chronic kidney disease with heart failure and stage 1 through stage 4 chronic kidney disease, or unspecified chronic kidney disease; I42.0 Dilated cardiomyopathy; I47.2 Ventricular tachycardia; J44.0 Chronic obstructive pulmonary disease with (acute) lower respiratory infection; J44.1 Chronic obstructive pulmonary disease with (acute) exacerbation; J98.11 Atelectasis; N17.9 Acute kidney failure, unspecified; Z99.11 Dependence on respirator [ventilator] status; N13.6 Pyonephrosis; E04.9 Nontoxic goiter, unspecified; E11.22 Type 2 diabetes mellitus with diabetic chronic kidney disease; E11.43 Type 2 diabetes mellitus with diabetic autonomic (poly)neuropathy; E66.01 Morbid (severe) obesity due to excess calories; E87.5 Hyperkalemia; I70.0 Atherosclerosis of aorta; K29.60 Other gastritis without bleeding; K31.84 Gastroparesis; K59.00 Constipation, unspecified; N18.3 Chronic kidney disease, stage 3 (moderate); Z51.5 Encounter for palliative care; B95.7 Other staphylococcus as the cause of diseases classified elsewhere; T17.990A Other foreign object in respiratory tract, part unspecified in causing asphyxiation, initial encounter; X58.XXXA Exposure to other specified factors, initial encounter; R13.12 Dysphagia, oropharyngeal phase; Z86.73 Personal history of transient ischemic attack (TIA), and cerebral infarction without residual deficits; Z87.891 Personal history of nicotine dependence; Z88.0 Allergy status to penicillin; Z90.49 Acquired absence of other specified parts of digestive tract; Z91.19 Patient's noncompliance with other medical treatment and regimen; Z99.81 Dependence on supplemental oxygen; Z88.8 Allergy status to other drugs, medicaments and biological substances; Z68.30 Body mass index [BMI] 30.0-30.9, adult; Z82.49 Family history of ischemic heart disease and other diseases of the circulatory system; Z80.9 Family history of malignant neoplasm, unspecified; Y93.89 Activity, other specified; Y92.89 Other specified places as the place of occurrence of the external cause; Y99.8 Other external cause status
CPT/HCPCS: 31500; 36415; 36600; 43246; 70450; 71045; 74018; 74177; 80048; 80053; 80061; 80307; 81001; 82140; 82550; 82805; 82962; 83605; 83690; 83735; 83880; 84100; 84132; 84484; 85007; 85025; 85379; 85610; 86738; 86850; 86900; 86901; 87040; 87070; 87086; 87186; 87205; 87449; 87641; 87804; 93005; 93306; 94002; 94003; 94640; 96365; 96368; 96375; 99291; 99292; C9113; J0330; J0360; J0610; J1644; J1815; J1940; J1956; J2020; J2060; J2185; J2250; J2270; J2405; J2710; J2765; J2920; J2930; J3010; J3370; J3475; J3490; J7030; J7040; J7042; J7620; J7626; J8597; Q9966; Q9967

== ENCOUNTER 2018-11-01 06:10 | Inpatient (IN) | payer MEDICARE ==
[2018-11-01] VITALS (13 sets, daily range): BP systolic 81–192; BP diastolic 40–79
[~2018-11-01] VITALS: Ht 172.7 cm; Wt 94.1 kg
[~2018-11-01 06:10] MED LIST: ALBU2.5V8 INH; OXAZ30CA2 PO
--- NOTE | 2018-11-01 06:26 | PHYS DOC ---
Past Medical History Past Medical History: COPD, CVA Past Surgical History: Other Additional Past Surgical Histo: UNKNOWN Smoking: Cigarettes Alcohol Use: Occasionally Drug Use: None Adult General Chief Complaint Chief Complaint: DYSPNEA/RESPIRATOY DISTRESS HPI HPI Patient is a 78-year-old male who presents to the emergency department via EMS, from an LTAC. The patient was hospitalized here for respiratory failure, as well as other problems recently, and was discharged to the LTAC. According to report, which I received a third person, the patient began having increased respiratory difficulty today as well as hypertension and tachycardia. There was some concern for pneumothorax at the outside facility. Thus the patient was transferred to this facility for evaluation. He also was noted to have left arm edema. The patient is not verbally responsive, which appears to be a change from his mental status at hospital discharge according to notes that have been reviewed. He is not able to provide any meaningful history. Review of Systems Review of Systems Unable to obtain review of systems due to the patient being unresponsive. Current Medications Current Medications Current Medications Medications (Trade) Dose Ordered Sig/Eric Start Time Stop Time Status Last Admin Dose Admin Albuterol/ Ipratropium (Duoneb) 3 ml 1X ONCE 11/01/18 06:30 11/01/18 06:31 DC 11/01/18 06:10 3 ML Heparin Sodium (Porcine) (Heparin Sodium) 8,000 unit 1X ONCE 11/01/18 08:00 11/01/18 08:01 DC 11/01/18 08:17 8,000 UNIT Heparin Sodium/ Dextrose 500 ml @ 0 mls/hr CONT PRN 11/01/18 08:00 11/01/18 08:21 31.9 MLS/HR Info (CONTRAST GIVEN -- Rx MONITORING) 1 each PRN DAILY PRN 11/01/18 07:15 11/03/18 07:14 Iohexol (Omnipaque 350 Mg/ml) 90 ml 1X ONCE 11/01/18 07:15 11/01/18 07:16 DC 11/01/18 07:44 90 ML Sodium Chloride 1,000 ml @ 1,000 mls/hr Q1H 11/01/18 06:30 11/01/18 07:29 DC 11/01/18 06:40 1,000 MLS/HR Allergies Allergies Allergies Coded Allergies Type Severity Reaction Last Updated Verified Penicillins Allergy Intermediate 10/17/18 Yes erythromycin base Allergy Intermediate 10/17/18 Yes Physical Exam Physical Exam PHYSICAL EXAM: CONSTITUTIONAL: Well developed, well nourished HEAD: normocephalic, atraumatic EENT: PERRL, EOMI. Conjunctivae appear pale, sclerae non-icteric; dry mucous membranes. NECK: Supple, non-tender; no meningismus. There is a tracheostomy at the anterior neck, there is some mucus present on coughing. LUNGS: There are globally diminished breath sounds with increased work of breathing. No wheezes, rales, or rhonchi are audible. HEART: Regular tachycardia, no murmur CHEST: No deformity; non-tender ABDOMEN: The abdomen is soft, and non-tender, no masses or bruits. There is a PEG tube in the abdomen. EXTREM: There is edema noted to the left upper extremity. The remainder of the extremities exhibit Normal ROM; no deformity, no calf tenderness. Normal pulses palpable in all extremities. There is no lower extremity edema. SKIN: No rash; no diaphoresis NEURO: The patient's eyes are open, but he is not awake, not alert, not responding to questions. Current Patient Data Vital Signs Vital Signs Date Time Temp Pulse Resp B/P (MAP) Pulse Ox O2 Delivery O2 Flow Rate FiO2 11/01/18 08:12 104 18 138/65 (89) 94 Ventilator 11/01/18 06:10 99.3 99.3 Lab Values Laboratory Tests Test 11/01/18 06:13 11/01/18 06:20 Urine Collection Type U cath Urine Color Yellow Urine Clarity Clear Urine pH 6.0 Urine Specific [place] 1.010 Urine Protein Negative mg/dL (NEG-TRACE) Urine Glucose (UA) Negative mg/dL (NEG) Urine Ketones (Stick) Negative mg/dL (NEG) Urine Blood Moderate (NEG) Urine Nitrite Negative (NEG) Urine Bilirubin Negative (NEG) Urine Urobilinogen Dipstick 1.0 mg/dL (0.2 mg/dL) Urine Leukocyte Esterase Small (NEG) Urine RBC >40 /HPF (0-2) Urine WBC 5-10 /HPF (0-4) Urine Squamous Epithelial Cells None /LPF Urine Bacteria Few /HPF (0-FEW) White Blood Count 9.8 x10^3/uL (4.0-11.0) Red Blood Count 3.42 x10^6/uL (4.30-5.70) L Hemoglobin 10.3 g/dL (13.0-17.5) L Hematocrit 32.4 % (39.0-53.0) L Mean Corpuscular Volume 95 fL (79-100) Mean Corpuscular Hemoglobin 30 pg (25-35) Mean Corpuscular Hemoglobin Concent 32 g/dL (31-37) Red Cell Distribution Width 16.5 % (11.5-14.5) H Platelet Count 287 x10^3/uL (140-400) Neutrophils (%) (Auto) 83 % (31-73) H Lymphocytes (%) (Auto) 7 % (24-48) L Monocytes (%) (Auto) 8 % (0-9) Eosinophils (%) (Auto) 2 % (0-3) Basophils (%) (Auto) 0 % (0-3) Neutrophils # (Auto) 8.1 x10^3uL (1.8-7.7) H Lymphocytes # (Auto) 0.7 x10^3/uL (1.0-4.8) L Monocytes # (Auto) 0.8 x10^3/uL (0.0-1.1) Eosinophils # (Auto) 0.1 x10^3/uL (0.0-0.7) Basophils # (Auto) 0.0 x10^3/uL (0.0-0.2) Platelet Estimate Pending Prothrombin Time 13.5 SEC (11.7-14.0) Prothrombin Time INR 1.1 (0.8-1.1) PTT 28 SEC (24-38) Sodium Level 142 mmol/L (136-145) Potassium Level 4.7 mmol/L (3.5-5.1) Chloride Level 97 mmol/L (98-107) L Carbon Dioxide Level 39 mmol/L (21-32) H Anion Gap 6 (6-14) Blood Urea Nitrogen 29 mg/dL (8-26) H Creatinine 1.0 mg/dL (0.7-1.3) Estimated GFR (Cockcroft-Gault) 72.6 BUN/Creatinine Ratio 29 (6-20) H Glucose Level 226 mg/dL (70-99) H Lactic Acid Level 1.7 mmol/L (0.4-2.0) Calcium Level 8.8 mg/dL (8.5-10.1) Magnesium Level 1.8 mg/dL (1.8-2.4) Total Bilirubin 0.6 mg/dL (0.2-1.0) Aspartate Amino Transferase (AST) 26 U/L (15-37) Alanine Aminotransferase (ALT) 29 U/L (16-63) Alkaline Phosphatase 92 U/L (46-116) Ammonia < 10 mcmol/L (11-34) L Troponin I Quantitative < 0.017 ng/mL (0.000-0.055) PZ-Pdv-R-Type Natriuretic Peptide 673 pg/mL (0-449) H Total Protein 6.6 g/dL (6.4-8.2) Albumin 2.4 g/dL (3.4-5.0) L Albumin/Globulin Ratio 0.6 (1.0-1.7) L Laboratory Tests 11/01/18 06:20 Laboratory Tests 11/01/18 06:20 EKG EKG Sinus tachycardia at a rate of 120 beats for minute, right axis deviation, nidia l intervals, there are no acute ischemic ST/T changes, there is significant motion artifact present.[] Radiology/Procedures Radiology/Procedures []PROCEDURE: VENOUS UPPER EXTREMITY LEFT INDICATION: Left arm swelling COMPARISON: None. TECHNIQUE: Grayscale, color and doppler ultrasound images were obtained of the left upper extremity venous vasculature. No thrombus identified in the internal jugular, subclavian, axillary, brachial, cephalic, radial or ulnar veins. Thrombus of basilic vein seen. IMPRESSION: 1. Left basilic vein thrombus is identified. PROCEDURE: CHEST AP ONLY EXAM: CHEST 1 VIEW. HISTORY: Shortness of breath. COMPARISON: 10/24/2018. FINDINGS: A frontal view of the chest is obtained. A tracheostomy appliance is in expected position. Vertebroplasty changes are noted in the mid thoracic spine. A right arm PICC line has its tip in the right brachiocephalic vein. Hyperinflation is consistent with chronic obstructive pulmonary disease. Mild interstitial opacities in the bases may reflect atelectasis or mild pulmonary edema. There is no pneumothorax or clear pleural effusion by radiographs. The heart is not enlarged. IMPRESSION: 1. Chronic obstructive pulmonary disease. Correlate for superimposed mild pulmonary edema. PROCEDURE: CT ANGIOGRAPHY CHEST EXAM: CT ANGIOGRAPHY OF THE CHEST WITH AND WITHOUT INTRAVENOUS CONTRAST. HISTORY: Shortness of breath, tachycardia. TECHNIQUE: Computed tomographic angiography of the chest was performed before and after the intravenous administration of iodinated contrast. 3-D maximum intensity projections were also performed. COMPARISON: None. FINDINGS: Images of the upper abdomen reveal at least mild right renal atrophy. The gallbladder is surgically absent. A gastrostomy catheter is in place. 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 Bone windows reveal no suspicious lesions. Mid thoracic vertebroplasty changes at multiple other mild to moderate lower thoracic compression deformities are noted. One tiny filling defect is appreciated within the peripheral right lower lobe pulmonary artery as seen on axial image 125. No additional clear emboli are seen. There is no aortic dissection or aneurysm. One prominent right hilar lymph node measures one 1.4 x 1.0 cm. No definitively enlarged lymph nodes are seen. Calcified mediastinal lymph nodes are likely secondary to old granulomatous disease. The heart is not enlarged. A right arm PICC line has its tip in the right brachiocephalic vein. There are trace bilateral pleural effusions. There is no pericardial effusion. A tracheostomy appliance is in expected position. Scattered small regions of groundglass infiltrate in the lower lobes may reflect atypical pneumonia or mild pulmonary edema. IMPRESSION: 1. One tiny filling defect in a right lower lobe pulmonary artery is consistent with a tiny pulmonary embolus. 2. Moderate to severe centrilobular emphysema. Patchy mild infiltrates in the bases may reflect atypical pneumonia or mild pulmonary edema. Course & Med Decision Making Course & Med Decision Making Pertinent Labs and Imaging studies reviewed. (See chart for details) []8:00 AM:The patient's condition remains stable. I spoke with the spitalist, who accepted the patient to the hospital for further evaluation and treatment. CT angiography report is pending. I reviewed the patient's chest x- ray, did not notice any definite acute infiltrate. Radiologist x-ray report is also currently pending. The patient does have diminished air movement and might require bronchoscopy to rule out a mucous plug. Pulmonary will be consulted. I will leave the decision to restart the patient on antibiotics to the admitting team. CRITICAL CARE TIME: 45 Minutes, excluding any procedures and care of other patients. Dragon Disclaimer Dragon Disclaimer This electronic medical record was generated, in whole or in part, using a voice recognition dictation system. Departure Departure Impression: Primary Impression: Respiratory failure Additional Impressions: Dyspnea Upper leg DVT (deep venous thromboembolism), acute Disposition: 09 ADMITTED INPATIENT Admitting Physician: MONROE Condition: GUARDED Referrals: BERHANE DAVIS DO (PCP) Problem Qualifiers OCTAVIO BALDWIN MD Nov 01, 2018 06:26
[2018-11-01] MEDS ORDERED: IPRATRPIUM/ALBUTEROL 0.5/2.5MG 3 ML NEBU. NEB ONE ×2 (06:30)
[2018-11-01] MEDS ORDERED: IV NORMAL SALINE 1000ML BAG 1,000 ML IV SCH (06:30)
[2018-11-01 06:48] LABS: BILIRUBIN,URINE NEGATIVE (NEG); CLARITY,URINE CLEAR; COLOR,URINE YELLOW; NITRITE,URINE NEGATIVE (NEG); PROTEIN,URINE NEGATIVE (NEG-TRACE)
[2018-11-01 06:49] LABS: BASO % 0 % (0-3); EOS # 0.1 x10^3/uL (0.0-0.7); EOS % 2 % (0-3); HEMATOCRIT 32.4 % (39.0-53.0); HEMOGLOBIN 10.3 g/dL (13.0-17.5); LYMPH # 0.7 x10^3/uL (1.0-4.8); LYMPH % 7 % (24-48); MEAN CORPUSCULAR HEMOGLOBIN 30 pg (25-35); MEAN CORPUSCULAR HGB CONC 32 g/dL (31-37); MEAN CORPUSCULAR VOLUME 95 fL (79-100); MONO # 0.8 x10^3/uL (0.0-1.1); MONO % 8 % (0-9); NEUT # 8.1 x10^3uL (1.8-7.7); NEUT % 83 % (31-73); PLATELET COUNT 287 x10^3/uL (140-400); RED BLOOD COUNT 3.42 x10^6/uL (4.30-5.70); RED CELL DISTRIBUTION WIDTH 16.5 % (11.5-14.5); WHITE BLOOD COUNT 9.8 x10^3/uL (4.0-11.0)
[2018-11-01 06:53] LABS: CALCIUM 8.8 mg/dL (8.5-10.1); GFR 72.6; POTASSIUM 4.7 mmol/L (3.5-5.1)
[2018-11-01 06:57] LABS: ALBUMIN 2.4 g/dL (3.4-5.0); ALBUMIN/GLOBULIN RATIO 0.6 (1.0-1.7); MAGNESIUM 1.8 mg/dL (1.8-2.4); TOTAL BILIRUBIN 0.6 mg/dL (0.2-1.0); TOTAL PROTEIN 6.6 g/dL (6.4-8.2)
[2018-11-01 07:07] LABS: PROTHROMBIN TIME PATIENT 13.5 SEC (11.7-14.0)
[2018-11-01 07:10] LABS: BACTERIA,URINE FEW /HPF (0-FEW); RBC,URINE >40 /HPF (0-2)
--- NOTE | 2018-11-01 07:14 | RAD ---
INDICATION: Left arm swelling COMPARISON: None. TECHNIQUE: Grayscale, color and doppler ultrasound images were obtained of the left upper extremity venous vasculature. No thrombus identified in the internal jugular, subclavian, axillary, brachial, cephalic, radial or ulnar veins. Thrombus of basilic vein seen. IMPRESSION: 1. Left basilic vein thrombus is identified. Electronically signed by: Kt Garcia MD (11/01/2018 7:11 AM) [facility] [place]
[2018-11-01] MEDS ORDERED: CONTRAST GIVEN. MC PRN (07:15)
[2018-11-01] MEDS ORDERED: IOHEXOL 350 MG/ML 100 ML VIAL. IV ONE (07:15)
[2018-11-01 07:43] LABS: BASE EXCESS ABG 13 mmol/L (-3-3); HCO3 ABG 40 mmol/L (21-28); PO2 ABG 71 mmHg (65-108); SAT O2 ABG 95 % (92-99)
[2018-11-01] MEDS ORDERED: HEPARIN for IV BOLUS 10,000 UNIT/10 ML VIAL. IV ONE (08:00)
[2018-11-01] MEDS: HEPARIN 25,000UTS/500ML PREMIX 500 ML IV PRN (08:21)
--- NOTE | 2018-11-01 08:24 | RAD ---
EXAM: CT ANGIOGRAPHY OF THE CHEST WITH AND WITHOUT INTRAVENOUS CONTRAST. HISTORY: Shortness of breath, tachycardia. TECHNIQUE: Computed tomographic angiography of the chest was performed before and after the intravenous administration of iodinated contrast. 3-D maximum intensity projections were also performed. COMPARISON: None. FINDINGS: Images of the upper abdomen reveal at least mild right renal atrophy. The gallbladder is surgically absent. A gastrostomy catheter is in place. 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 Bone windows reveal no suspicious lesions. Mid thoracic vertebroplasty changes at multiple other mild to moderate lower thoracic compression deformities are noted. One tiny filling defect is appreciated within the peripheral right lower lobe pulmonary artery as seen on axial image 125. No additional clear emboli are seen. There is no aortic dissection or aneurysm. One prominent right hilar lymph node measures one 1.4 x 1.0 cm. No definitively enlarged lymph nodes are seen. Calcified mediastinal lymph nodes are likely secondary to old granulomatous disease. The heart is not enlarged. A right arm PICC line has its tip in the right brachiocephalic vein. There are trace bilateral pleural effusions. There is no pericardial effusion. A tracheostomy appliance is in expected position. Scattered small regions of groundglass infiltrate in the lower lobes may reflect atypical pneumonia or mild pulmonary edema. IMPRESSION: 1. One tiny filling defect in a right lower lobe pulmonary artery is consistent with a tiny pulmonary embolus. 2. Moderate to severe centrilobular emphysema. Patchy mild infiltrates in the bases may reflect atypical pneumonia or mild pulmonary edema. These findings were called to Dr. Harris by Manuel Bennett on 11/01/2018 at 8:16 AM. *One or more of the following individualized dose reduction techniques were utilized for this examination: 1. Automated exposure control. 2. Adjustment of the mA and/or kV according to patient size. 3. Use of iterative reconstruction technique. Electronically signed by: John Bennett MD (11/01/2018 8:21 AM) [facility]
--- NOTE | 2018-11-01 08:24 | RAD ---
EXAM: CHEST 1 VIEW. HISTORY: Shortness of breath. COMPARISON: 10/24/2018. FINDINGS: A frontal view of the chest is obtained. A tracheostomy appliance is in expected position. Vertebroplasty changes are noted in the mid thoracic spine. A right arm PICC line has its tip in the right brachiocephalic vein. Hyperinflation is consistent with chronic obstructive pulmonary disease. Mild interstitial opacities in the bases may reflect atelectasis or mild pulmonary edema. There is no pneumothorax or clear pleural effusion by radiographs. The heart is not enlarged. IMPRESSION: 1. Chronic obstructive pulmonary disease. Correlate for superimposed mild pulmonary edema. Electronically signed by: John Bennett MD (11/01/2018 8:21 AM) [facility]
[2018-11-01 08:46] LABS: PCO2 ABG 61 mmHg (35-46)
[2018-11-01 08:47] LABS: FIO2 ABG 40
[2018-11-01 09:18] LABS: % BANDS 19 % (0-9); % EOS 1 % (0-5); % LYMPHS 12 % (24-48); % MONOS 6 % (0-10); % SEGS 62 % (35-66); PLT ESTIMATE ADEQUATE (ADEQUATE)
--- NOTE | 2018-11-01 10:03 | EKG ---
[facility] [address] [place] [id number] Test Date: 2018-11-01 Test Time: 06:23:53 Pat Name: JOSLYN SOTELO Department: Room: Gender: M [employer] Installation [employer]: : [id number] Requested By: OCTAVIO BALDWIN Order Number: [id number] Reading MD: Measurements Intervals [place] Rate: 120 P: 90 NE: 176 QRS: 108 QRSD: 76 T: 66 QT: 282 QTc: 403 Interpretive Statements SINUS TACHYCARDIA RIGHTWARD AXIS NO SPECIFIC ECG ABNORMALITIES RI6.01 Unconfirmed report No previous ECG available for comparison
[2018-11-01] MEDS ORDERED: BUDE0.5A3 NEB (10:07)
[2018-11-01] MEDS ORDERED: LORA1TAB PO (10:07)
[2018-11-01] MEDS ORDERED: METO10TA81 PO (10:07)
[2018-11-01] MEDS ORDERED: ONDA4TAB7 IV (10:07)
[2018-11-01] MEDS ORDERED: ALBU2.5V5 NEB (10:07)
[2018-11-01] MEDS ORDERED: POLY17PO29 PO (10:07)
[2018-11-01] MEDS ORDERED: INSU100V8 SQ (10:07)
[2018-11-01] MEDS ORDERED: FURO-68 IV (10:07)
[2018-11-01] MEDS ORDERED: HYDR-2759 PO (10:07)
[2018-11-01] MEDS ORDERED: HYDR-2867 IV (10:07)
[2018-11-01] MEDS ORDERED: AMLO5TAB10 PO (10:07)
[2018-11-01] MEDS ORDERED: FLUC100T4 PO (10:07)
[2018-11-01] MEDS ORDERED: BISA10SU2 RC (10:07)
[2018-11-01] MEDS ORDERED: FAMO-63 PO (10:07)
[2018-11-01] MEDS ORDERED: ALBUTEROL SULFATE 2.5 MG/3 ML NEBU. INH PRN (10:15)
[2018-11-01] MEDS ORDERED: DEXTROSE 50% 25 GM / 50ML DISP.SYRIN. IV PRN (10:15)
[2018-11-01] MEDS ORDERED: FUROSEMIDE 40 MG TABLET. PO PRN (10:15)
[2018-11-01] MEDS ORDERED: BISACODYL 10 MG SUPP.RECT. PR PRN (10:30)
[2018-11-01] MEDS ORDERED: ONDANSETRON PF 4 MG/2 ML VIAL. IV PRN (10:30)
[2018-11-01] MEDS: ANTI-COAG MONITOR BY PHARMACY. MC PRN (10:33)
[2018-11-01] MEDS: amLODIPine BESYLATE 5 MG TABLET PO SCH (11:00)
[2018-11-01] MEDS: POLYETHYLENE GLYCOL 3350 17 GM PACKET. PO SCH (11:00)
--- NOTE | 2018-11-01 11:45 | PDOC1 ---
History and Physical Date of Admission Date of Admission DATE: 11/01/18 TIME: 11:43 Identification/Chief Complaint Chief Complaint resp distress Source Source: Chart review, Patient History of Present Illness History of Present Illness Mr. Lewis is a 78-year-old male admit from LTAC. admit here 10/07, found down, w. 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 The patient was hospitalized here for respiratory failure, as well as other problems recently, and was [facility] Admit here for increased respiratory difficulty today as well as hypertension and tachycardia. There was some concern for pneumothorax, the ER could not find this, but very shallow breaths, new PE, and possible mucus plug He is not verbally responsive, on trach Past Medical History Pulmonary: Bronchitis, COPD Past Surgical History Past Surgical History: No pertinent history Family History Family History: Family History Unknown Social History Smoke: 2 packs per day (3 ppd) ALCOHOL: other Drugs: None Current Problem List Problem List Problems Medical Problems: (1) Dyspnea Status: Acute (2) Respiratory failure Status: Acute (3) Upper leg DVT (deep venous thromboembolism), acute Status: Acute Current Medications Current Medications Current Medications Albuterol/ Ipratropium (Duoneb) 3 ml 1X ONCE NEB Last administered on 11/01/18at 06:10; Start 11/01/18 at 06:30; Stop 11/01/18 at 06:31; Status DC Albuterol/ Ipratropium (Duoneb) 3 ml 1X ONCE NEB Last administered on 11/01/18at 06:10; Start 11/01/18 at 06:30; Stop 11/01/18 at 06:31; Status DC Sodium Chloride 1,000 ml @ 1,000 mls/hr Q1H IV Last administered on 11/01/18at 06:40; Start 11/01/18 at 06:30; Stop 11/01/18 at 07:29; Status DC Iohexol (Omnipaque 350 Mg/ml) 90 ml 1X ONCE IV Last administered on 11/01/18at 07:44; Start 11/01/18 at 07:15; Stop 11/01/18 at 07:16; Status DC Info (CONTRAST GIVEN -- Rx MONITORING) 1 each PRN DAILY PRN MC SEE COMMENTS; Start 11/01/18 at 07:15; Stop 11/03/18 at 07:14 Heparin Sodium (Porcine) (Heparin Sodium) 8,000 unit 1X ONCE IV Last administered on 11/01/18at 08:17; Start 11/01/18 at 08:00; Stop 11/01/18 at 08:01; Status DC Heparin Sodium/ Dextrose 500 ml @ 0 mls/hr CONT PRN IV SEE I/O RECORD Last administered on 11/01/18at 08:21; Start 11/01/18 at 08:00 Albuterol Sulfate (Ventolin Neb Soln) 2.5 mg RTQID NEB ; Start 11/01/18 at 12:00 Albuterol Sulfate (Ventolin Neb Soln) 2.5 mg PRN Q6HRS PRN INH SHORTNESS OF BREATH; Start 11/01/18 at 10:15 Amlodipine Besylate (Norvasc) 5 mg DAILY PO ; Start 11/01/18 at 11:00 Budesonide (Pulmicort) 0.5 mg RTBID NEB ; Start 11/01/18 at 11:00 Famotidine (Pepcid) 20 mg BID PO ; Start 11/01/18 at 11:00 Furosemide (Lasix) 40 mg PRN DAILY PRN PO FLUID RETENTION; Start 11/01/18 at 10:15 Acetaminophen/ Hydrocodone Bitart (Lortab 5/325) 1 tab PRN Q6HRS PRN PO PAIN; Start 11/01/18 at 10:15 Lorazepam (Ativan) 1 mg PRN Q6HRS PRN PO ANXIETY / AGITATION; Start 11/01/18 at 10:15 Metoclopramide HCl (Reglan) 10 mg QIDACHS PO ; Start 11/01/18 at 11:30 Bisacodyl (Dulcolax Supp) 10 mg PRN DAILY PRN OK CONSTIPATION; Start 11/01/18 at 10:30 Hydralazine HCl (Apresoline Inj) 10 mg PRN Q4HRS PRN IVP HYPERTENSION; Start 11/01/18 at 10:30 Insulin Glargine (Lantus) 10 units QHS SQ ; Start 11/01/18 at 21:00 Ondansetron HCl (Zofran) 4 mg PRN Q6HRS PRN IV NAUSEA/VOMITING; Start 11/01/18 at 10:30 Lorazepam (Ativan) 2 mg QHS PO ; Start 11/01/18 at 21:00 Polyethylene Glycol (miraLAX PACKET) 17 gm DAILY PO ; Start 11/01/18 at 11:00 Info (Anti-Coagulation Monitoring By Pharmacy) 1 each PRN DAILY PRN MC SEE COMMENTS Last administered on 11/01/18at 10:33; Start 11/01/18 at 10:45 Insulin Human Lispro (HumaLOG) 0-5 UNITS TIDWMEALS SQ ; Start 11/01/18 at 12:00 Dextrose (Dextrose 50%-Water Syringe) 12.5 gm PRN Q15MIN PRN IV SEE COMMENTS; Start 11/01/18 at 10:15 Active Scripts Active Reported Pepcid (Famotidine) 20 Mg Tablet 20 Mg PO BID Albuterol Sulfate Neb Soln (Albuterol Sulfate) 2.5 Mg/3 Ml Vial.neb 2.5 Mg NEB [id number] Hydralazine Hcl 10 Mg Tablet 10 Mg IV PRN Q4HRS PRN Amlodipine Besylate 5 Mg Tablet 5 Mg PO DAILY Miralax (Polyethylene Glycol 3350) 17 Gm Powd.pack 1 Packet PO DAILY Zofran (Ondansetron Hcl) 4 Mg Tablet 1 Tab IV Q6HRS Reglan (Metoclopramide Hcl) 10 Mg Tablet 10 Mg PO QIDACHS Lorazepam 1 Mg Tablet 1 Tab PO PRN Q6HRS PRN Lantus (Insulin Glargine,Hum.rec.anlog) 100 Unit/1 Ml Vial 10 Unit SQ HS Hydrocodone-Acetamin 5-325 mg (Hydrocodone/Acetaminophen) 1 Each Tablet 1 Each PO PRN Q6HRS PRN Lasix (Furosemide) 40 Mg Tablet 40 Mg IV DAILY PRN Fluconazole 100 Mg Tablet 1 Tab PO DAILY Pulmicort (Budesonide) 0.5 Mg/2 Ml Ampul.neb 1 Vial NEB BID Bisacodyl 10 Mg Supp.rect 10 Mg RC PRN DAILY PRN Proair Hfa (Albuterol Sulfate) 8.5 Gm Hfa.aer.ad 1 Puff INH PRN Q6HRS PRN Oxazepam 30 Mg Capsule 30 Mg PO QHS Allergies Allergies: Coded Allergies: Penicillins (Verified Allergy, Intermediate, 10/17/18) erythromycin base (Verified Allergy, Intermediate, 10/17/18) ROS Review of System unable, no pain, Physical Exam Physical Exam trying to mouth some words, then sleepy and hard to arouse General: Cooperative, mild distress HEENT: PERRLA, EOMI Lungs: Clear to auscultation Heart: S1S2 Extremities: No clubbing, No edema, Normal pulses Skin: No rashes Neuro: Normal tone Psych/Mental Status: Mood NL Vitals Vitals Vital Signs Date Time Temp Pulse Resp B/P (MAP) Pulse Ox O2 Delivery O2 Flow Rate FiO2 11/01/18 10:08 Mechanical Ventilator 11/01/18 09:03 97 11/01/18 08:57 104 18 142/65 (90) 11/01/18 06:10 99.3 99.3 Labs Labs Laboratory Tests Test 11/01/18 06:13 11/01/18 06:20 11/01/18 07:10 Urine Collection Type U cath Urine Color Yellow Urine Clarity Clear Urine pH 6.0 Urine Specific [place] 1.010 Urine Protein Negative mg/dL (NEG-TRACE) Urine Glucose (UA) Negative mg/dL (NEG) Urine Ketones (Stick) Negative mg/dL (NEG) Urine Blood Moderate (NEG) Urine Nitrite Negative (NEG) Urine Bilirubin Negative (NEG) Urine Urobilinogen Dipstick 1.0 mg/dL (0.2 mg/dL) Urine Leukocyte Esterase Small (NEG) Urine RBC >40 /HPF (0-2) Urine WBC 5-10 /HPF (0-4) Urine Squamous Epithelial Cells None /LPF Urine Bacteria Few /HPF (0-FEW) White Blood Count 9.8 x10^3/uL (4.0-11.0) Red Blood Count 3.42 x10^6/uL (4.30-5.70) Hemoglobin 10.3 g/dL (13.0-17.5) Hematocrit 32.4 % (39.0-53.0) Mean Corpuscular Volume 95 fL (79-100) Mean Corpuscular Hemoglobin 30 pg (25-35) Mean Corpuscular Hemoglobin Concent 32 g/dL (31-37) Red Cell Distribution Width 16.5 % (11.5-14.5) Platelet Count 287 x10^3/uL (140-400) Neutrophils (%) (Auto) 83 % (31-73) Lymphocytes (%) (Auto) 7 % (24-48) Monocytes (%) (Auto) 8 % (0-9) Eosinophils (%) (Auto) 2 % (0-3) Basophils (%) (Auto) 0 % (0-3) Neutrophils # (Auto) 8.1 x10^3uL (1.8-7.7) Lymphocytes # (Auto) 0.7 x10^3/uL (1.0-4.8) Monocytes # (Auto) 0.8 x10^3/uL (0.0-1.1) Eosinophils # (Auto) 0.1 x10^3/uL (0.0-0.7) Basophils # (Auto) 0.0 x10^3/uL (0.0-0.2) Segmented Neutrophils % 62 % (35-66) Band Neutrophils % 19 % (0-9) Lymphocytes % 12 % (24-48) Monocytes % 6 % (0-10) Eosinophils % 1 % (0-5) Platelet Estimate Adequate (ADEQUATE) Prothrombin Time 13.5 SEC (11.7-14.0) Prothromb Time International Ratio 1.1 (0.8-1.1) Activated Partial Thromboplast Time 28 SEC (24-38) Sodium Level 142 mmol/L (136-145) Potassium Level 4.7 mmol/L (3.5-5.1) Chloride Level 97 mmol/L (98-107) Carbon Dioxide Level 39 mmol/L (21-32) Anion Gap 6 (6-14) Blood Urea Nitrogen 29 mg/dL (8-26) Creatinine 1.0 mg/dL (0.7-1.3) Estimated GFR (Cockcroft-Gault) 72.6 BUN/Creatinine Ratio 29 (6-20) Glucose Level 226 mg/dL (70-99) Lactic Acid Level 1.7 mmol/L (0.4-2.0) Calcium Level 8.8 mg/dL (8.5-10.1) Magnesium Level 1.8 mg/dL (1.8-2.4) Total Bilirubin 0.6 mg/dL (0.2-1.0) Aspartate Amino Transf (AST/SGOT) 26 U/L (15-37) Alanine Aminotransferase (ALT/SGPT) 29 U/L (16-63) Alkaline Phosphatase 92 U/L (46-116) Ammonia < 10 mcmol/L (11-34) Troponin I Quantitative < 0.017 ng/mL (0.000-0.055) YG-Zmo-K-Type Natriuretic Peptide 673 pg/mL (0-449) Total Protein 6.6 g/dL (6.4-8.2) Albumin 2.4 g/dL (3.4-5.0) Albumin/Globulin Ratio 0.6 (1.0-1.7) O2 Saturation 95 % (92-99) Arterial Blood pH 7.43 (7.35-7.45) Arterial Blood pCO2 at Patient Temp 61 mmHg (35-46) Arterial Blood pO2 at Patient Temp 71 mmHg (65-108) Arterial Blood HCO3 40 mmol/L (21-28) Arterial Blood Base Excess 13 mmol/L (-3-3) FiO2 40 Laboratory Tests Test 11/01/18 06:13 11/01/18 06:20 11/01/18 07:10 Urine Collection Type U cath Urine Color Yellow Urine Clarity Clear Urine pH 6.0 Urine Specific [place] 1.010 Urine Protein Negative mg/dL (NEG-TRACE) Urine Glucose (UA) Negative mg/dL (NEG) Urine Ketones (Stick) Negative mg/dL (NEG) Urine Blood Moderate (NEG) Urine Nitrite Negative (NEG) Urine Bilirubin Negative (NEG) Urine Urobilinogen Dipstick 1.0 mg/dL (0.2 mg/dL) Urine Leukocyte Esterase Small (NEG) Urine RBC >40 /HPF (0-2) Urine WBC 5-10 /HPF (0-4) Urine Squamous Epithelial Cells None /LPF Urine Bacteria Few /HPF (0-FEW) White Blood Count 9.8 x10^3/uL (4.0-11.0) Red Blood Count 3.42 x10^6/uL (4.30-5.70) Hemoglobin 10.3 g/dL (13.0-17.5) Hematocrit 32.4 % (39.0-53.0) Mean Corpuscular Volume 95 fL (79-100) Mean Corpuscular Hemoglobin 30 pg (25-35) Mean Corpuscular Hemoglobin Concent 32 g/dL (31-37) Red Cell Distribution Width 16.5 % (11.5-14.5) Platelet Count 287 x10^3/uL (140-400) Neutrophils (%) (Auto) 83 % (31-73) Lymphocytes (%) (Auto) 7 % (24-48) Monocytes (%) (Auto) 8 % (0-9) Eosinophils (%) (Auto) 2 % (0-3) Basophils (%) (Auto) 0 % (0-3) Neutrophils # (Auto) 8.1 x10^3uL (1.8-7.7) Lymphocytes # (Auto) 0.7 x10^3/uL (1.0-4.8) Monocytes # (Auto) 0.8 x10^3/uL (0.0-1.1) Eosinophils # (Auto) 0.1 x10^3/uL (0.0-0.7) Basophils # (Auto) 0.0 x10^3/uL (0.0-0.2) Segmented Neutrophils % 62 % (35-66) Band Neutrophils % 19 % (0-9) Lymphocytes % 12 % (24-48) Monocytes % 6 % (0-10) Eosinophils % 1 % (0-5) Platelet Estimate Adequate (ADEQUATE) Prothrombin Time 13.5 SEC (11.7-14.0) Prothromb Time International Ratio 1.1 (0.8-1.1) Activated Partial Thromboplast Time 28 SEC (24-38) Sodium Level 142 mmol/L (136-145) Potassium Level 4.7 mmol/L (3.5-5.1) Chloride Level 97 mmol/L (98-107) Carbon Dioxide Level 39 mmol/L (21-32) Anion Gap 6 (6-14) Blood Urea Nitrogen 29 mg/dL (8-26) Creatinine 1.0 mg/dL (0.7-1.3) Estimated GFR (Cockcroft-Gault) 72.6 BUN/Creatinine Ratio 29 (6-20) Glucose Level 226 mg/dL (70-99) Lactic Acid Level 1.7 mmol/L (0.4-2.0) Calcium Level 8.8 mg/dL (8.5-10.1) Magnesium Level 1.8 mg/dL (1.8-2.4) Total Bilirubin 0.6 mg/dL (0.2-1.0) Aspartate Amino Transf (AST/SGOT) 26 U/L (15-37) Alanine Aminotransferase (ALT/SGPT) 29 U/L (16-63) Alkaline Phosphatase 92 U/L (46-116) Ammonia < 10 mcmol/L (11-34) Troponin I Quantitative < 0.017 ng/mL (0.000-0.055) AQ-Ezh-Q-Type Natriuretic Peptide 673 pg/mL (0-449) Total Protein 6.6 g/dL (6.4-8.2) Albumin 2.4 g/dL (3.4-5.0) Albumin/Globulin Ratio 0.6 (1.0-1.7) O2 Saturation 95 % (92-99) Arterial Blood pH 7.43 (7.35-7.45) Arterial Blood pCO2 at Patient Temp 61 mmHg (35-46) Arterial Blood pO2 at Patient Temp 71 mmHg (65-108) Arterial Blood HCO3 40 mmol/L (21-28) Arterial Blood Base Excess 13 mmol/L (-3-3) FiO2 40 VTE Prophylaxis Ordered VTE Prophylaxis Devices: Yes VTE Pharmacological Prophylaxi: Yes Assessment/Plan Assessment/Plan acute on chronic hypoxia, with hypercarbia and COPD exacerbation, was still weaning vent at LTAC possible mucus plug Acute pulmonary embolism, on heparin gtt admit to ICU consult PULMIKO CHAVEZ MD Nov 01, 2018 11:45
[2018-11-01] MEDS: INSULIN LISPRO 300 UNITS/3 ML INSULN.PEN. SQ SCH ×2 (12:00→17:00)
[2018-11-01] MEDS: BUDESONIDE 0.5 MG/2 ML NEBU. NEB SCH ×2 (13:27→20:28)
[2018-11-01] MEDS: ALBUTEROL SULFATE 2.5 MG/3 ML NEBU. NEB SCH ×3 (13:27→20:28)
--- NOTE | 2018-11-01 13:39 | PDOC ---
PULMONARY PROGRESS NOTES Vitals Vital Signs Date Time Temp Pulse Resp B/P (MAP) Pulse Ox O2 Delivery O2 Flow Rate FiO2 11/01/18 13:27 100 Ventilator 11/01/18 13:10 96 18 100/58 (72) 11/01/18 12:30 99.1 99.1 General: Alert, No acute distress HEENT: Other Lungs: Other Cardiovascular: S1, S2 Abdomen: Soft, Non-tender, Other Extremities: Other Labs Laboratory Tests Test 11/01/18 06:13 11/01/18 06:20 11/01/18 07:10 Urine Collection Type U cath Urine Color Yellow Urine Clarity Clear Urine pH 6.0 Urine Specific [place] 1.010 Urine Protein Negative mg/dL (NEG-TRACE) Urine Glucose (UA) Negative mg/dL (NEG) Urine Ketones (Stick) Negative mg/dL (NEG) Urine Blood Moderate (NEG) Urine Nitrite Negative (NEG) Urine Bilirubin Negative (NEG) Urine Urobilinogen Dipstick 1.0 mg/dL (0.2 mg/dL) Urine Leukocyte Esterase Small (NEG) Urine RBC >40 /HPF (0-2) Urine WBC 5-10 /HPF (0-4) Urine Squamous Epithelial Cells None /LPF Urine Bacteria Few /HPF (0-FEW) White Blood Count 9.8 x10^3/uL (4.0-11.0) Red Blood Count 3.42 x10^6/uL (4.30-5.70) Hemoglobin 10.3 g/dL (13.0-17.5) Hematocrit 32.4 % (39.0-53.0) Mean Corpuscular Volume 95 fL (79-100) Mean Corpuscular Hemoglobin 30 pg (25-35) Mean Corpuscular Hemoglobin Concent 32 g/dL (31-37) Red Cell Distribution Width 16.5 % (11.5-14.5) Platelet Count 287 x10^3/uL (140-400) Neutrophils (%) (Auto) 83 % (31-73) Lymphocytes (%) (Auto) 7 % (24-48) Monocytes (%) (Auto) 8 % (0-9) Eosinophils (%) (Auto) 2 % (0-3) Basophils (%) (Auto) 0 % (0-3) Neutrophils # (Auto) 8.1 x10^3uL (1.8-7.7) Lymphocytes # (Auto) 0.7 x10^3/uL (1.0-4.8) Monocytes # (Auto) 0.8 x10^3/uL (0.0-1.1) Eosinophils # (Auto) 0.1 x10^3/uL (0.0-0.7) Basophils # (Auto) 0.0 x10^3/uL (0.0-0.2) Segmented Neutrophils % 62 % (35-66) Band Neutrophils % 19 % (0-9) Lymphocytes % 12 % (24-48) Monocytes % 6 % (0-10) Eosinophils % 1 % (0-5) Platelet Estimate Adequate (ADEQUATE) Prothrombin Time 13.5 SEC (11.7-14.0) Prothromb Time International Ratio 1.1 (0.8-1.1) Activated Partial Thromboplast Time 28 SEC (24-38) Sodium Level 142 mmol/L (136-145) Potassium Level 4.7 mmol/L (3.5-5.1) Chloride Level 97 mmol/L (98-107) Carbon Dioxide Level 39 mmol/L (21-32) Anion Gap 6 (6-14) Blood Urea Nitrogen 29 mg/dL (8-26) Creatinine 1.0 mg/dL (0.7-1.3) Estimated GFR (Cockcroft-Gault) 72.6 BUN/Creatinine Ratio 29 (6-20) Glucose Level 226 mg/dL (70-99) Lactic Acid Level 1.7 mmol/L (0.4-2.0) Calcium Level 8.8 mg/dL (8.5-10.1) Magnesium Level 1.8 mg/dL (1.8-2.4) Total Bilirubin 0.6 mg/dL (0.2-1.0) Aspartate Amino Transf (AST/SGOT) 26 U/L (15-37) Alanine Aminotransferase (ALT/SGPT) 29 U/L (16-63) Alkaline Phosphatase 92 U/L (46-116) Ammonia < 10 mcmol/L (11-34) Troponin I Quantitative < 0.017 ng/mL (0.000-0.055) FY-Lvf-J-Type Natriuretic Peptide 673 pg/mL (0-449) Total Protein 6.6 g/dL (6.4-8.2) Albumin 2.4 g/dL (3.4-5.0) Albumin/Globulin Ratio 0.6 (1.0-1.7) O2 Saturation 95 % (92-99) Arterial Blood pH 7.43 (7.35-7.45) Arterial Blood pCO2 at Patient Temp 61 mmHg (35-46) Arterial Blood pO2 at Patient Temp 71 mmHg (65-108) Arterial Blood HCO3 40 mmol/L (21-28) Arterial Blood Base Excess 13 mmol/L (-3-3) FiO2 40 Laboratory Tests Test 11/01/18 06:13 11/01/18 06:20 11/01/18 07:10 Urine Collection Type U cath Urine Color Yellow Urine Clarity Clear Urine pH 6.0 Urine Specific [place] 1.010 Urine Protein Negative mg/dL (NEG-TRACE) Urine Glucose (UA) Negative mg/dL (NEG) Urine Ketones (Stick) Negative mg/dL (NEG) Urine Blood Moderate (NEG) Urine Nitrite Negative (NEG) Urine Bilirubin Negative (NEG) Urine Urobilinogen Dipstick 1.0 mg/dL (0.2 mg/dL) Urine Leukocyte Esterase Small (NEG) Urine RBC >40 /HPF (0-2) Urine WBC 5-10 /HPF (0-4) Urine Squamous Epithelial Cells None /LPF Urine Bacteria Few /HPF (0-FEW) White Blood Count 9.8 x10^3/uL (4.0-11.0) Red Blood Count 3.42 x10^6/uL (4.30-5.70) Hemoglobin 10.3 g/dL (13.0-17.5) Hematocrit 32.4 % (39.0-53.0) Mean Corpuscular Volume 95 fL (79-100) Mean Corpuscular Hemoglobin 30 pg (25-35) Mean Corpuscular Hemoglobin Concent 32 g/dL (31-37) Red Cell Distribution Width 16.5 % (11.5-14.5) Platelet Count 287 x10^3/uL (140-400) Neutrophils (%) (Auto) 83 % (31-73) Lymphocytes (%) (Auto) 7 % (24-48) Monocytes (%) (Auto) 8 % (0-9) Eosinophils (%) (Auto) 2 % (0-3) Basophils (%) (Auto) 0 % (0-3) Neutrophils # (Auto) 8.1 x10^3uL (1.8-7.7) Lymphocytes # (Auto) 0.7 x10^3/uL (1.0-4.8) Monocytes # (Auto) 0.8 x10^3/uL (0.0-1.1) Eosinophils # (Auto) 0.1 x10^3/uL (0.0-0.7) Basophils # (Auto) 0.0 x10^3/uL (0.0-0.2) Segmented Neutrophils % 62 % (35-66) Band Neutrophils % 19 % (0-9) Lymphocytes % 12 % (24-48) Monocytes % 6 % (0-10) Eosinophils % 1 % (0-5) Platelet Estimate Adequate (ADEQUATE) Prothrombin Time 13.5 SEC (11.7-14.0) Prothromb Time International Ratio 1.1 (0.8-1.1) Activated Partial Thromboplast Time 28 SEC (24-38) Sodium Level 142 mmol/L (136-145) Potassium Level 4.7 mmol/L (3.5-5.1) Chloride Level 97 mmol/L (98-107) Carbon Dioxide Level 39 mmol/L (21-32) Anion Gap 6 (6-14) Blood Urea Nitrogen 29 mg/dL (8-26) Creatinine 1.0 mg/dL (0.7-1.3) Estimated GFR (Cockcroft-Gault) 72.6 BUN/Creatinine Ratio 29 (6-20) Glucose Level 226 mg/dL (70-99) Lactic Acid Level 1.7 mmol/L (0.4-2.0) Calcium Level 8.8 mg/dL (8.5-10.1) Magnesium Level 1.8 mg/dL (1.8-2.4) Total Bilirubin 0.6 mg/dL (0.2-1.0) Aspartate Amino Transf (AST/SGOT) 26 U/L (15-37) Alanine Aminotransferase (ALT/SGPT) 29 U/L (16-63) Alkaline Phosphatase 92 U/L (46-116) Ammonia < 10 mcmol/L (11-34) Troponin I Quantitative < 0.017 ng/mL (0.000-0.055) EZ-Vsa-Z-Type Natriuretic Peptide 673 pg/mL (0-449) Total Protein 6.6 g/dL (6.4-8.2) Albumin 2.4 g/dL (3.4-5.0) Albumin/Globulin Ratio 0.6 (1.0-1.7) O2 Saturation 95 % (92-99) Arterial Blood pH 7.43 (7.35-7.45) Arterial Blood pCO2 at Patient Temp 61 mmHg (35-46) Arterial Blood pO2 at Patient Temp 71 mmHg (65-108) Arterial Blood HCO3 40 mmol/L (21-28) Arterial Blood Base Excess 13 mmol/L (-3-3) FiO2 40 Medications Active Scripts Medications Dose Route/Sig Max Daily Dose Days Date Category Pepcid (Famotidine) 20 Mg Tablet 20 Mg PO BID 11/01/18 Reported Albuterol Sulfate Neb Soln (Albuterol Sulfate) 2.5 Mg/3 Ml Vial.neb 2.5 Mg NEB [id number] 11/01/18 Reported Hydralazine Hcl 10 Mg Tablet 10 Mg IV PRN Q4HRS PRN 11/01/18 Reported Amlodipine Besylate 5 Mg Tablet 5 Mg PO DAILY 11/01/18 Reported Miralax (Polyethylene Glycol 3350) 17 Gm Powd.pack 1 Packet PO DAILY 11/01/18 Reported Zofran (Ondansetron Hcl) 4 Mg Tablet 1 Tab IV Q6HRS 11/01/18 Reported Reglan (Metoclopramide Hcl) 10 Mg Tablet 10 Mg PO QIDACHS 11/01/18 Reported Lorazepam 1 Mg Tablet 1 Tab PO PRN Q6HRS PRN 11/01/18 Reported Lantus (Insulin Glargine,Hum.rec.anlog) 100 Unit/1 Ml Vial 10 Unit SQ HS 11/01/18 Reported Hydrocodone-Acetamin 5-325 mg (Hydrocodone/Acetaminophen) 1 Each Tablet 1 Each PO PRN Q6HRS PRN 11/01/18 Reported Lasix (Furosemide) 40 Mg Tablet 40 Mg IV DAILY PRN 11/01/18 Reported Fluconazole 100 Mg Tablet 1 Tab PO DAILY 11/01/18 Reported Pulmicort (Budesonide) 0.5 Mg/2 Ml Ampul.neb 1 Vial NEB BID 11/01/18 Reported Bisacodyl 10 Mg Supp.rect 10 Mg RC PRN DAILY PRN 11/01/18 Reported Proair Hfa (Albuterol Sulfate) 8.5 Gm Hfa.aer.ad 1 Puff INH PRN Q6HRS PRN 10/07/18 Reported Oxazepam 30 Mg Capsule 30 Mg PO QHS 10/07/18 Reported Impression . note dictated agree with current rx KRISTI DOMINGUEZ MD Nov 01, 2018 13:39
[2018-11-01] MEDS: METOCLOPRAMIDE 10 MG TABLET. PO SCH ×3 (13:58→20:30)
[2018-11-01] MEDS: FAMOTIDINE 20 MG TABLET. PO SCH ×2 (13:58→20:30)
[2018-11-01] MEDS: LORazepam 1 MG TABLET PO PRN (15:23)
[2018-11-01] MEDS: HYDROcodone/APAP 5/325MG 1 TAB TABLET PO PRN ×2 (15:24→20:30)
[2018-11-01] MEDS: FUROSEMIDE 40 MG TABLET. PO SCH (17:34)
--- NOTE | 2018-11-01 17:38 | NUR ---
Pt admitted to Room 114 from the Er this morning. #8 valeri , site cleaned, dressing changed and ties changed. Pt awake mouthing words. Peg tube site cleaned and tube feeding started per order. [employer] CLERK draining a pink tinged urine. Heparin unfusing per protocol. Family in this afternoon and updated on condition. Pt became very restless when family here. Medications given and at the present time pt is sleeping.
[2018-11-01] MEDS: LORazepam 1 MG TABLET PO SCH (20:29)
[2018-11-01] MEDS: diphenhydrAMINE 50 MG/ML VIAL IVP PRN (20:32)
[2018-11-01] MEDS: INSULIN GLARGINE 300 UNITS/3 ML INSULN.PEN. SQ SCH (20:51)
[2018-11-02] VITALS (23 sets, daily range): BP systolic 87–210; BP diastolic 47–87
[2018-11-02] MEDS: LORazepam 1 MG TABLET PO PRN ×2 (00:16→05:51)
[2018-11-02] MEDS: HEPARIN 25,000UTS/500ML PREMIX 500 ML IV PRN ×2 (00:51→23:48)
[2018-11-02] MEDS: diphenhydrAMINE 50 MG/ML VIAL IVP PRN (05:51)
[2018-11-02] MEDS: HYDROcodone/APAP 5/325MG 1 TAB TABLET PO PRN ×2 (05:51→20:25)
--- NOTE | 2018-11-02 05:53 | CONS ---
DATE OF CONSULTATION: 11/01/2018 ATTENDING PHYSICIAN: Mary Kate Fair MD. REASON FOR CONSULTATION: The patient seen in pulmonary consultation at the request of Dr. Fair for vent management. HISTORY OF PRESENT ILLNESS: The patient is a 78-year-old who is well known to me from previous hospitalization. He had been hospitalized [facility] at [facility] with acute on chronic hypercapnic respiratory failure. We were unable to wean him. The patient underwent tracheotomy. He eventually was transferred to [facility]. He represented via EMS from the LTAC. He was having some increasing respiratory distress and tachycardic. There was concern possibility of pneumothorax. He was transferred. He was evaluated. He underwent CTA revealing small filling defect in the right lower lobe consistent with pulmonary emboli. There was moderate to severe centrilobular emphysema. There were patchy and mild infiltrates in the bases. The patient is currently on IV heparin. He is on assist control ventilation. PAST MEDICAL HISTORY: 1. Otherwise remarkable for chronic hypercapnic respiratory failure; COPD, severe, suspect FEV1 less than 1 liter. 2. Recent gram-positive pneumonia. 3. Alcoholism, quit approximately four years ago. 4. Recent mycoplasma serology positive, treated for pneumonia. 5. Cardiomyopathy, ejection fraction of 40%. 6. Status post trach 10/16/2018. PAST SURGICAL HISTORY: As above. ALLERGIES: TO PENICILLIN, ERYTHROMYCIN. REVIEW OF SYSTEMS: Usually unobtainable secondary to the patient's condition. SOCIAL HISTORY: He was smoking up until the day he was admitted last month. FAMILY HISTORY: Unknown. REVIEW OF SYSTEMS: Unobtainable secondary to the patient's condition. CURRENT MEDICATIONS: List was reviewed. PHYSICAL EXAMINATION: GENERAL: The patient was in the Intensive Care Unit. VITAL SIGNS: Stable. O2 saturation greater than 92%, currently on assist control mode. HEENT: Eyes, the sclerae were nonicteric. NECK: Jugular venous distention could not be assessed secondary to body habitus. CHEST: Full expansion. LUNGS: Adequate airway flow with no wheezes. CARDIOVASCULAR: Regular rate and rhythm with S1, S2, no S3. ABDOMEN: Soft, nontender, nondistended. EXTREMITIES: No clubbing, cyanosis. Minimal edema. NEUROLOGIC: The patient was awake, alert, following commands. A detailed neuro exam was not performed. LABORATORY DATA: Reviewed. Arterial blood gas; pH of 7.43, PaCO2 of 61, PaO2 of 71. White count was 9.8, hemoglobin of 10, hematocrit of 32. Electrolytes were noted. BUN was 29, creatinine was 1.0. Troponin was not elevated. BNP was elevated. Albumin was low. CTA as indicated above. Upper extremity venous Doppler revealed a left basilar vein thrombosis. IMPRESSION: 1. [id number] hypercapnic hypoxemic respiratory failure. 2. Acute pulmonary embolism. 3. Acute exacerbation of chronic obstructive pulmonary disease. 4. History of alcoholism. 5. History of tobacco use. PLAN: 1. We will continue current assist control ventilation. 2. Initiate weaning in the a.m. 3. Heparin. 4. Continue home medications. 5. Antral feeding. 6. DVT and GI prophylaxis. I do appreciate the privilege in sharing in the patient's care. Total cumulative critical care time of 40 minutes. KRISTI DOMINGUEZ MD DR: SHAWNA/brianne JOB#: [id number] / [id number]
[2018-11-02] MEDS: BUDESONIDE 0.5 MG/2 ML NEBU. NEB SCH ×2 (08:03→20:13)
[2018-11-02] MEDS: ALBUTEROL SULFATE 2.5 MG/3 ML NEBU. NEB SCH ×4 (08:03→20:13)
[2018-11-02] MEDS: METOCLOPRAMIDE 10 MG TABLET. PO SCH ×4 (08:26→21:00)
[2018-11-02] MEDS: amLODIPine BESYLATE 5 MG TABLET PO SCH (08:27)
[2018-11-02] MEDS: POLYETHYLENE GLYCOL 3350 17 GM PACKET. PO SCH (08:27)
[2018-11-02] MEDS: FAMOTIDINE 20 MG TABLET. PO SCH ×2 (08:27→20:26)
[2018-11-02] MEDS: FUROSEMIDE 40 MG TABLET. PO SCH (08:27)
[2018-11-02] MEDS: INSULIN LISPRO 300 UNITS/3 ML INSULN.PEN. SQ SCH ×4 (08:37→21:35)
--- NOTE | 2018-11-02 09:06 | PDOC ---
PULMONARY PROGRESS NOTES Subjective patient sedated, not in sync with vent later Vitals Vital Signs Date Time Temp Pulse Resp B/P (MAP) Pulse Ox O2 Delivery O2 Flow Rate FiO2 11/02/18 08:27 81 127/57 11/02/18 08:04 96 Ventilator 11/02/18 06:51 23 11/02/18 05:00 99.4 99.4 HEENT: Other Lungs: Crackles Cardiovascular: S1, S2 Abdomen: Soft, Non-tender, Other Extremities: Other (edema) Skin: Warm Labs Laboratory Tests Test 11/01/18 06:13 11/01/18 06:20 11/01/18 07:10 11/01/18 14:00 Urine Collection Type U cath Urine Color Yellow Urine Clarity Clear Urine pH 6.0 Urine Specific [place] 1.010 Urine Protein Negative mg/dL (NEG-TRACE) Urine Glucose (UA) Negative mg/dL (NEG) Urine Ketones (Stick) Negative mg/dL (NEG) Urine Blood Moderate (NEG) Urine Nitrite Negative (NEG) Urine Bilirubin Negative (NEG) Urine Urobilinogen Dipstick 1.0 mg/dL (0.2 mg/dL) Urine Leukocyte Esterase Small (NEG) Urine RBC >40 /HPF (0-2) Urine WBC 5-10 /HPF (0-4) Urine Squamous Epithelial Cells None /LPF Urine Bacteria Few /HPF (0-FEW) White Blood Count 9.8 x10^3/uL (4.0-11.0) Red Blood Count 3.42 x10^6/uL (4.30-5.70) Hemoglobin 10.3 g/dL (13.0-17.5) Hematocrit 32.4 % (39.0-53.0) Mean Corpuscular Volume 95 fL (79-100) Mean Corpuscular Hemoglobin 30 pg (25-35) Mean Corpuscular Hemoglobin Concent 32 g/dL (31-37) Red Cell Distribution Width 16.5 % (11.5-14.5) Platelet Count 287 x10^3/uL (140-400) Neutrophils (%) (Auto) 83 % (31-73) Lymphocytes (%) (Auto) 7 % (24-48) Monocytes (%) (Auto) 8 % (0-9) Eosinophils (%) (Auto) 2 % (0-3) Basophils (%) (Auto) 0 % (0-3) Neutrophils # (Auto) 8.1 x10^3uL (1.8-7.7) Lymphocytes # (Auto) 0.7 x10^3/uL (1.0-4.8) Monocytes # (Auto) 0.8 x10^3/uL (0.0-1.1) Eosinophils # (Auto) 0.1 x10^3/uL (0.0-0.7) Basophils # (Auto) 0.0 x10^3/uL (0.0-0.2) Segmented Neutrophils % 62 % (35-66) Band Neutrophils % 19 % (0-9) Lymphocytes % 12 % (24-48) Monocytes % 6 % (0-10) Eosinophils % 1 % (0-5) Platelet Estimate Adequate (ADEQUATE) Prothrombin Time 13.5 SEC (11.7-14.0) Prothromb Time International Ratio 1.1 (0.8-1.1) Activated Partial Thromboplast Time 28 SEC (24-38) Sodium Level 142 mmol/L (136-145) Potassium Level 4.7 mmol/L (3.5-5.1) Chloride Level 97 mmol/L (98-107) Carbon Dioxide Level 39 mmol/L (21-32) Anion Gap 6 (6-14) Blood Urea Nitrogen 29 mg/dL (8-26) Creatinine 1.0 mg/dL (0.7-1.3) Estimated GFR (Cockcroft-Gault) 72.6 BUN/Creatinine Ratio 29 (6-20) Glucose Level 226 mg/dL (70-99) Lactic Acid Level 1.7 mmol/L (0.4-2.0) Calcium Level 8.8 mg/dL (8.5-10.1) Magnesium Level 1.8 mg/dL (1.8-2.4) Total Bilirubin 0.6 mg/dL (0.2-1.0) Aspartate Amino Transf (AST/SGOT) 26 U/L (15-37) Alanine Aminotransferase (ALT/SGPT) 29 U/L (16-63) Alkaline Phosphatase 92 U/L (46-116) Ammonia < 10 mcmol/L (11-34) Troponin I Quantitative < 0.017 ng/mL (0.000-0.055) OF-Byx-S-Type Natriuretic Peptide 673 pg/mL (0-449) Total Protein 6.6 g/dL (6.4-8.2) Albumin 2.4 g/dL (3.4-5.0) Albumin/Globulin Ratio 0.6 (1.0-1.7) O2 Saturation 95 % (92-99) Arterial Blood pH 7.43 (7.35-7.45) Arterial Blood pCO2 at Patient Temp 61 mmHg (35-46) Arterial Blood pO2 at Patient Temp 71 mmHg (65-108) Arterial Blood HCO3 40 mmol/L (21-28) Arterial Blood Base Excess 13 mmol/L (-3-3) FiO2 40 Heparin Anti-Xa Act, Unfractionated 1.09 IU/mL (0.30-0.70) Test 11/01/18 19:50 11/02/18 06:05 Heparin Anti-Xa Act, Unfractionated 0.62 IU/mL (0.30-0.70) 0.42 IU/mL (0.30-0.70) Laboratory Tests Test 11/01/18 14:00 11/01/18 19:50 11/02/18 06:05 Heparin Anti-Xa Act, Unfractionated 1.09 IU/mL (0.30-0.70) 0.62 IU/mL (0.30-0.70) 0.42 IU/mL (0.30-0.70) Medications Active Scripts Medications Dose Route/Sig Max Daily Dose Days Date Category Pepcid (Famotidine) 20 Mg Tablet 20 Mg PO BID 11/01/18 Reported Albuterol Sulfate Neb Soln (Albuterol Sulfate) 2.5 Mg/3 Ml Vial.neb 2.5 Mg NEB [id number] 11/01/18 Reported Hydralazine Hcl 10 Mg Tablet 10 Mg IV PRN Q4HRS PRN 11/01/18 Reported Amlodipine Besylate 5 Mg Tablet 5 Mg PO DAILY 11/01/18 Reported Miralax (Polyethylene Glycol 3350) 17 Gm Powd.pack 1 Packet PO DAILY 11/01/18 Reported Zofran (Ondansetron Hcl) 4 Mg Tablet 1 Tab IV Q6HRS 11/01/18 Reported Reglan (Metoclopramide Hcl) 10 Mg Tablet 10 Mg PO QIDACHS 11/01/18 Reported Lorazepam 1 Mg Tablet 1 Tab PO PRN Q6HRS PRN 11/01/18 Reported Lantus (Insulin Glargine,Hum.rec.anlog) 100 Unit/1 Ml Vial 10 Unit SQ HS 11/01/18 Reported Hydrocodone-Acetamin 5-325 mg (Hydrocodone/Acetaminophen) 1 Each Tablet 1 Each PO PRN Q6HRS PRN 11/01/18 Reported Lasix (Furosemide) 40 Mg Tablet 40 Mg IV DAILY PRN 11/01/18 Reported Fluconazole 100 Mg Tablet 1 Tab PO DAILY 11/01/18 Reported Pulmicort (Budesonide) 0.5 Mg/2 Ml Ampul.neb 1 Vial NEB BID 11/01/18 Reported Bisacodyl 10 Mg Supp.rect 10 Mg RC PRN DAILY PRN 11/01/18 Reported Proair Hfa (Albuterol Sulfate) 8.5 Gm Hfa.aer.ad 1 Puff INH PRN Q6HRS PRN 10/07/18 Reported Oxazepam 30 Mg Capsule 30 Mg PO QHS 10/07/18 Reported Impression . IMPRESSION: 1. Gruow-lv-tshdcwl hypercapnic hypoxemic respiratory failure. 2. Acute pulmonary embolism. 3. Acute exacerbation of chronic obstructive pulmonary disease. 4. History of alcoholism. 5. History of tobacco use. Plan . Haldol nutritional support difficulty ween will continue support anticoagulation case discussed with KRISTI NUÑEZ MD Nov 02, 2018 09:06
[2018-11-02] MEDS: hydrALAZINE 20 MG/ML VIAL. IVP PRN ×2 (10:27→15:45)
[2018-11-02] MEDS: ANTI-COAG MONITOR BY PHARMACY. MC PRN (10:56)
--- NOTE | 2018-11-02 12:32 | PDOC2 ---
JEREMIAH CANTRELL SEED CLEANER OPERATOR 11/02/18 1232: CARDIAC CONSULT DATE OF CONSULT Date of Consult DATE: 11/02/18 TIME: 12:15 REASON FOR CONSULT Reason for Consult: Accelerated HTN REFERRING PHYSICIAN Referring Physician: Marv SOURCE Source: Chart review HISTORY OF PRESENT ILLNESS HISTORY OF PRESENT ILLNESS This is a 78 yo male admitted from [facility] for complains of SOA. He was recently discharged on 10/27 treated with multiple conditions including respiratory ada lure, sepsis, cardiomyopathy, COPD and pneumonia. She present in ED with SOA and uncontrolled HTN with some swelling to her LA. Unable to communicate with his trach, nonverbal. PAST MEDICAL HISTORY Cardiovascular: CHF, HTN, Other (cardiomyopathy; bradycardia) Pulmonary: COPD, Pneumonia, Other (respiratory failure) CENTRAL NERVOUS SYSTEM: CVA, Other (encephalopathy) GI: GERD, Other (dysphagia) Musculoskeletal: Osteoarthritis Rheumatologic: No pertinent hx Renal/: Chronic renal insuff, UTI Endocrine: No pertinent hx PAST SURGICAL HISTORY Past Surgical History: Arthroscopy (hip), Cholecystectomy, Hernia Repair (ventral), Other (trach placement, peg placment) SOCIAL HISTORY Smoke: Quit ALCOHOL: none Drugs: None Lives: Jail ([facility]) CURRENT MEDICATIONS CURRENT MEDICATIONS Current Medications Medications (Trade) Dose Ordered Sig/Eric Route PRN Reason Start Time Stop Time Status Last Admin Dose Admin Insulin Glargine (Lantus) 10 units QHS SQ 11/01/18 21:00 11/01/18 20:51 Lorazepam (Ativan) 2 mg QHS PO 11/01/18 21:00 11/01/18 20:29 Furosemide (Lasix) 40 mg DAILY PO 11/01/18 14:15 11/02/18 08:27 Diphenhydramine HCl (Benadryl) 25 mg PRN Q6HRS PRN IVP ITCHING 11/01/18 19:45 11/02/18 05:51 Lorazepam (Ativan Inj) 0.5 mg 1X ONCE IV 11/02/18 10:15 11/02/18 10:16 DC 11/02/18 10:27 ALLERGIES ALLERGIES: Coded Allergies: Penicillins (Verified Allergy, Intermediate, 10/17/18) erythromycin base (Verified Allergy, Intermediate, 10/17/18) ROS Review of System unable to obtain. nonverbal PHYSICAL EXAM General: No acute distress, Other (lethargic) HEENT: Atraumatic, Mucous membr. moist/pink, Other (trach) Lungs: Other (basilar crackles) Heart: Regular rate (Sinus tach), No murmurs Abdomen: Soft, Other (obese; PEG) Extremities: Other (2+ bilateral LE pitting edema) Skin: No significant lesion Neuro: Other (nonverbal) MUSCULOSKELETAL: Osteoarthritic changes both hands VITALS VITALS Vital Signs Date Time Temp Pulse Resp B/P (MAP) Pulse Ox O2 Delivery O2 Flow Rate FiO2 11/02/18 11:52 96 Ventilator 11/02/18 10:27 117 199/84 11/02/18 10:00 30 40.0 11/02/18 08:00 97.8 97.8 LABS Lab: Laboratory Tests Test 11/01/18 14:00 11/01/18 19:50 11/02/18 06:05 Heparin Anti-Xa Act, Unfractionated 1.09 IU/mL (0.30-0.70) 0.62 IU/mL (0.30-0.70) 0.42 IU/mL (0.30-0.70) ECHOCARDIOGRAM ECHOCARDIOGRAM <Conclusion> The systolic function is moderately impaired. The Ejection Fraction is 40%. There is global hypokinesis of the left ventricle. The right ventricle is mildly to moderately hypertrophied. The right ventricle is mildly to moderately dilated. DATE: 10/09/181513 ASSESSMENT/PLAN ASSESSMENT/PLAN 1. Acute on chronic respiratory failure with AECOPD, CHF and new RLL PE: Trach/vent. Pulmonary following 2. Left arm DVT 3. Acute on chronic diastolic/systolic CHF: prior EF at 40%, presumed NICM 4. Accelerated HTN: labile mainly from restlessness 5. Hx of sinus bradycardia currently with reactive sinus tach. 6. CKD/hematuria Recommendations 1. Continue norvasc, may increase if needed. Will start on low dose lisinopril. Hydralazine IV.PRN 2. Heparin per pulmonary 3. Lasix therapy, supportive care. 4. Benzos per PCP ROXANN MORALES MD 11/02/181518: CARDIAC CONSULT ASSESSMENT/PLAN ASSESSMENT/PLAN Pt. seen and examined. Agree with above CASING MAN note. 78 y.o male well known to our service. No acute cause of mental status changes. His dyspnea is likely related to his significant emphysematous changes BP elevated due to anxiety and pain at trach site and dyspnea. No evidence of flash pulm edema. Continue anticoagulation per PCP and pulmonary He is a poor candidate for cardiac catheterization despite his LV dysfunction. Continue medical optimization. Trop negative, EKG wnl and BNP only mildly elevated. All this points to non- cardiac causes. Thanks. Will follow along. JEREMIAH CANTRELL APRN Nov 02, 2018 12:32 ROXANN MORALES MD Nov 02, 2018 15:19
--- NOTE | 2018-11-02 12:39 | PDOC ---
Infectious Disease Note Vital Sign Vital Signs Vital Signs Date Time Temp Pulse Resp B/P (MAP) Pulse Ox O2 Delivery O2 Flow Rate FiO2 11/02/18 11:52 96 Ventilator 11/02/18 10:27 117 199/84 11/02/18 10:00 30 40.0 11/02/18 08:00 97.8 97.8 Labs Lab Laboratory Tests Test 11/01/18 14:00 11/01/18 19:50 11/02/18 06:05 Heparin Anti-Xa Act, Unfractionated 1.09 IU/mL (0.30-0.70) 0.62 IU/mL (0.30-0.70) 0.42 IU/mL (0.30-0.70) Micro Microbiology 11/01/18 Blood Culture - Preliminary, Resulted NO GROWTH AFTER 1 DAY 11/01/18 - Final, Resulted 11/01/18 - Final, Resulted 11/01/18 - Final, Resulted 11/01/18 Gram Stain Evaluation - Final, Resulted 11/01/18 Sputum Culture, Resulted Pending Objective Assessment Strep sepsis - POA 11/01 could be Enterococcus vs strep GNR sputum 11/01 ? true infection vs colonization Bandemia ? UTI - now with bloody urine Hvgak-pu-murvyys hypercapnic hypoxemic respiratory failure. Acute pulmonary embolism. Left basilic vein thrombus is identified. on U/S 11/01 H/o Mycoplasma Acute exacerbation of chronic obstructive pulmonary disease. History of alcoholism. Plan Plan of Care Add Vanc and Meropenem F/u labs and cults May need goals of therapy eval D/w nursing Thank you # [id number] BELKYS SHEETS MD Nov 02, 2018 12:39
[2018-11-02] MEDS ORDERED: VANCOMYCIN 2 GM in IV NORMAL SALINE 500ML BAG 500 ML IV ONE (13:00)
--- NOTE | 2018-11-02 13:01 | PDOC ---
PROGRESS NOTES Chief Complaint Chief Complaint acute on chronic hypoxia, with hypercarbia and COPD exacerbation, was still weaning vent at LTAC sepsis, + blood cultures possible mucus plug Acute pulmonary embolism, on heparin gtt History of Present Illness History of Present Illness cont care in ICU consult ID today, Vanc, merrem started cont current Vitals Vitals Vital Signs Date Time Temp Pulse Resp B/P (MAP) Pulse Ox O2 Delivery O2 Flow Rate FiO2 11/02/18 12:55 Ventilator 11/02/18 11:52 96 11/02/18 10:27 117 199/84 11/02/18 10:00 30 40.0 11/02/18 08:00 97.8 97.8 Physical Exam General: No acute distress, Other (lethargic) Heart: Regular rate (Sinus tach), No murmurs Lungs: Crackles Abdomen: Soft, Other (obese; PEG) Extremities: Other (2+ bilateral LE pitting edema) Skin: No significant lesion Labs LABS Laboratory Tests Test 11/01/18 14:00 11/01/18 19:50 11/02/18 06:05 Heparin Anti-Xa Act, Unfractionated 1.09 IU/mL (0.30-0.70) 0.62 IU/mL (0.30-0.70) 0.42 IU/mL (0.30-0.70) Assessment and Plan Assessmemt and Plan Problems Medical Problems: (1) Dyspnea Status: Acute (2) Respiratory failure Status: Acute (3) Upper leg DVT (deep venous thromboembolism), acute Status: Acute Comment Review of Relevant I have reviewed the following items akbar (where applicable) has been applied. Labs Laboratory Tests Test 11/01/18 06:13 11/01/18 06:20 11/01/18 07:10 11/01/18 09:30 Urine Collection Type U cath Urine Color Yellow Urine Clarity Clear Urine pH 6.0 Urine Specific [place] 1.010 Urine Protein Negative mg/dL (NEG-TRACE) Urine Glucose (UA) Negative mg/dL (NEG) Urine Ketones (Stick) Negative mg/dL (NEG) Urine Blood Moderate (NEG) Urine Nitrite Negative (NEG) Urine Bilirubin Negative (NEG) Urine Urobilinogen Dipstick 1.0 mg/dL (0.2 mg/dL) Urine Leukocyte Esterase Small (NEG) Urine RBC >40 /HPF (0-2) Urine WBC 5-10 /HPF (0-4) Urine Squamous Epithelial Cells None /LPF Urine Bacteria Few /HPF (0-FEW) White Blood Count 9.8 x10^3/uL (4.0-11.0) Red Blood Count 3.42 x10^6/uL (4.30-5.70) Hemoglobin 10.3 g/dL (13.0-17.5) Hematocrit 32.4 % (39.0-53.0) Mean Corpuscular Volume 95 fL (79-100) Mean Corpuscular Hemoglobin 30 pg (25-35) Mean Corpuscular Hemoglobin Concent 32 g/dL (31-37) Red Cell Distribution Width 16.5 % (11.5-14.5) Platelet Count 287 x10^3/uL (140-400) Neutrophils (%) (Auto) 83 % (31-73) Lymphocytes (%) (Auto) 7 % (24-48) Monocytes (%) (Auto) 8 % (0-9) Eosinophils (%) (Auto) 2 % (0-3) Basophils (%) (Auto) 0 % (0-3) Neutrophils # (Auto) 8.1 x10^3uL (1.8-7.7) Lymphocytes # (Auto) 0.7 x10^3/uL (1.0-4.8) Monocytes # (Auto) 0.8 x10^3/uL (0.0-1.1) Eosinophils # (Auto) 0.1 x10^3/uL (0.0-0.7) Basophils # (Auto) 0.0 x10^3/uL (0.0-0.2) Segmented Neutrophils % 62 % (35-66) Band Neutrophils % 19 % (0-9) Lymphocytes % 12 % (24-48) Monocytes % 6 % (0-10) Eosinophils % 1 % (0-5) Platelet Estimate Adequate (ADEQUATE) Prothrombin Time 13.5 SEC (11.7-14.0) Prothromb Time International Ratio 1.1 (0.8-1.1) Activated Partial Thromboplast Time 28 SEC (24-38) Sodium Level 142 mmol/L (136-145) Potassium Level 4.7 mmol/L (3.5-5.1) Chloride Level 97 mmol/L (98-107) Carbon Dioxide Level 39 mmol/L (21-32) Anion Gap 6 (6-14) Blood Urea Nitrogen 29 mg/dL (8-26) Creatinine 1.0 mg/dL (0.7-1.3) Estimated GFR (Cockcroft-Gault) 72.6 BUN/Creatinine Ratio 29 (6-20) Glucose Level 226 mg/dL (70-99) Lactic Acid Level 1.7 mmol/L (0.4-2.0) Calcium Level 8.8 mg/dL (8.5-10.1) Magnesium Level 1.8 mg/dL (1.8-2.4) Total Bilirubin 0.6 mg/dL (0.2-1.0) Aspartate Amino Transf (AST/SGOT) 26 U/L (15-37) Alanine Aminotransferase (ALT/SGPT) 29 U/L (16-63) Alkaline Phosphatase 92 U/L (46-116) Ammonia < 10 mcmol/L (11-34) Troponin I Quantitative < 0.017 ng/mL (0.000-0.055) XK-Owl-R-Type Natriuretic Peptide 673 pg/mL (0-449) Total Protein 6.6 g/dL (6.4-8.2) Albumin 2.4 g/dL (3.4-5.0) Albumin/Globulin Ratio 0.6 (1.0-1.7) O2 Saturation 95 % (92-99) Arterial Blood pH 7.43 (7.35-7.45) Arterial Blood pCO2 at Patient Temp 61 mmHg (35-46) Arterial Blood pO2 at Patient Temp 71 mmHg (65-108) Arterial Blood HCO3 40 mmol/L (21-28) Arterial Blood Base Excess 13 mmol/L (-3-3) FiO2 40 Nasal Screen MRSA (PCR) Negative (Negative) Test 11/01/18 14:00 11/01/18 19:50 11/02/18 06:05 Heparin Anti-Xa Act, Unfractionated 1.09 IU/mL (0.30-0.70) 0.62 IU/mL (0.30-0.70) 0.42 IU/mL (0.30-0.70) Laboratory Tests Test 11/01/18 14:00 11/01/18 19:50 11/02/18 06:05 Heparin Anti-Xa Act, Unfractionated 1.09 IU/mL (0.30-0.70) 0.62 IU/mL (0.30-0.70) 0.42 IU/mL (0.30-0.70) Microbiology 11/01/18 Blood Culture - Preliminary, Resulted NO GROWTH AFTER 1 DAY 11/01/18 - Final, Resulted 11/01/18 - Final, Resulted 11/01/18 - Final, Resulted 11/01/18 Gram Stain Evaluation - Final, Resulted 11/01/18 Sputum Culture, Resulted Pending Medications Current Medications Albuterol/ Ipratropium (Duoneb) 3 ml 1X ONCE NEB Last administered on 11/01/18at 06:10; Start 11/01/18 at 06:30; Stop 11/01/18 at 06:31; Status DC Albuterol/ Ipratropium (Duoneb) 3 ml 1X ONCE NEB Last administered on 11/01/18at 06:10; Start 11/01/18 at 06:30; Stop 11/01/18 at 06:31; Status DC Sodium Chloride 1,000 ml @ 1,000 mls/hr Q1H IV Last administered on 11/01/18at 06:40; Start 11/01/18 at 06:30; Stop 11/01/18 at 07:29; Status DC Iohexol (Omnipaque 350 Mg/ml) 90 ml 1X ONCE IV Last administered on 11/01/18at 07:44; Start 11/01/18 at 07:15; Stop 11/01/18 at 07:16; Status DC Info (CONTRAST GIVEN -- Rx MONITORING) 1 each PRN DAILY PRN MC SEE COMMENTS; Start 11/01/18 at 07:15; Stop 11/03/18 at 07:14 Heparin Sodium (Porcine) (Heparin Sodium) 8,000 unit 1X ONCE IV Last administered on 11/01/18at 08:17; Start 11/01/18 at 08:00; Stop 11/01/18 at 08:01; Status DC Heparin Sodium/ Dextrose 500 ml @ 0 mls/hr CONT PRN IV SEE I/O RECORD Last administered on 11/02/18at 00:51; Start 11/01/18 at 08:00 Albuterol Sulfate (Ventolin Neb Soln) 2.5 mg RTQID NEB Last administered on 11/02/18at 11:46; Start 11/01/18 at 12:00 Albuterol Sulfate (Ventolin Neb Soln) 2.5 mg PRN Q6HRS PRN INH SHORTNESS OF BREATH; Start 11/01/18 at 10:15 Amlodipine Besylate (Norvasc) 5 mg DAILY PO Last administered on 11/02/18 08:27; Start 11/01/18 at 11:00 Budesonide (Pulmicort) 0.5 mg RTBID NEB Last administered on 11/02/18 08:03; Start 11/01/18 at 11:00 Famotidine (Pepcid) 20 mg BID PO Last administered on 11/02/18 08:27; Start 11/01/18 at 11:00 Furosemide (Lasix) 40 mg PRN DAILY PRN PO FLUID RETENTION; Start 11/01/18 at 10:15; Stop 11/01/18 at 14:02; Status DC Acetaminophen/ Hydrocodone Bitart (Lortab 5/325) 1 tab PRN Q6HRS PRN PO PAIN Last administered on 11/02/18 05:51; Start 11/01/18 at 10:15 Lorazepam (Ativan) 1 mg PRN Q6HRS PRN PO ANXIETY / AGITATION Last administered on 11/02/18 05:51; Start 11/01/18 at 10:15 Metoclopramide HCl (Reglan) 10 mg QIDACHS PO Last administered on 11/02/18 08:26; Start 11/01/18 at 11:30 Bisacodyl (Dulcolax Supp) 10 mg PRN DAILY PRN MA CONSTIPATION; Start 11/01/18 at 10:30 Hydralazine HCl (Apresoline Inj) 10 mg PRN Q4HRS PRN IVP HYPERTENSION Last administered on 11/02/18 10:27; Start 11/01/18 at 10:30 Insulin Glargine (Lantus) 10 units QHS SQ Last administered on 11/01/18 20:51; Start 11/01/18 at 21:00 Ondansetron HCl (Zofran) 4 mg PRN Q6HRS PRN IV NAUSEA/VOMITING; Start 11/01/18 at 10:30 Lorazepam (Ativan) 2 mg QHS PO Last administered on 6/5/19at 20:29; Start 11/01/18 at 21:00 Polyethylene Glycol (miraLAX PACKET) 17 gm DAILY PO Last administered on 11/02/18at 08:27; Start 11/01/18 at 11:00 Info (Anti-Coagulation Monitoring By Pharmacy) 1 each PRN DAILY PRN MC SEE COMMENTS Last administered on 11/02/18at 10:56; Start 11/01/18 at 10:45 Insulin Human Lispro (HumaLOG) 0-5 UNITS TIDWMEALS SQ Last administered on 11/02/18at 08:37; Start 11/01/18 at 12:00 Dextrose (Dextrose 50%-Water Syringe) 12.5 gm PRN Q15MIN PRN IV SEE COMMENTS; Start 11/01/18 at 10:15 Furosemide (Lasix) 40 mg DAILY PO Last administered on 11/02/18at 08:27; Start 11/01/18 at 14:15 Diphenhydramine HCl (Benadryl) 25 mg PRN Q6HRS PRN IVP ITCHING Last administered on 11/02/18at 05:51; Start 11/01/18 at 19:45 Lorazepam (Ativan Inj) 0.5 mg 1X ONCE IV Last administered on 11/02/18at 10:27; Start 11/02/18 at 10:15; Stop 11/02/18 at 10:16; Status DC Vancomycin HCl (Vanco Per Pharmacy) 1 each PRN DAILY PRN MC SEE COMMENTS; Start 11/02/18 at 12:30 Meropenem 500 mg/ Sodium Chloride 50 ml @ 100 mls/hr Q6HRS IV ; Start 11/02/18 at 13:00 Vancomycin HCl 2 gm/Sodium Chloride 500 ml @ 250 mls/hr 1X ONCE IV ; Start 11/02/18 at 13:00; Stop 11/02/18 at 14:59 Lisinopril (Prinivil) 5 mg QHS PO ; Start 11/02/18 at 21:00 Active Scripts Active Reported Pepcid (Famotidine) 20 Mg Tablet 20 Mg PO BID Albuterol Sulfate Neb Soln (Albuterol Sulfate) 2.5 Mg/3 Ml Vial.neb 2.5 Mg NEB [id number] Hydralazine Hcl 10 Mg Tablet 10 Mg IV PRN Q4HRS PRN Amlodipine Besylate 5 Mg Tablet 5 Mg PO DAILY Miralax (Polyethylene Glycol 3350) 17 Gm Powd.pack 1 Packet PO DAILY Zofran (Ondansetron Hcl) 4 Mg Tablet 1 Tab IV Q6HRS Reglan (Metoclopramide Hcl) 10 Mg Tablet 10 Mg PO QIDACHS Lorazepam 1 Mg Tablet 1 Tab PO PRN Q6HRS PRN Lantus (Insulin Glargine,Hum.rec.anlog) 100 Unit/1 Ml Vial 10 Unit SQ HS Hydrocodone-Acetamin 5-325 mg (Hydrocodone/Acetaminophen) 1 Each Tablet 1 Each PO PRN Q6HRS PRN Lasix (Furosemide) 40 Mg Tablet 40 Mg IV DAILY PRN Fluconazole 100 Mg Tablet 1 Tab PO DAILY Pulmicort (Budesonide) 0.5 Mg/2 Ml Ampul.neb 1 Vial NEB BID Bisacodyl 10 Mg Supp.rect 10 Mg RC PRN DAILY PRN Proair Hfa (Albuterol Sulfate) 8.5 Gm Hfa.aer.ad 1 Puff INH PRN Q6HRS PRN Oxazepam 30 Mg Capsule 30 Mg PO QHS Vitals/I & O Vital Sign - Last 24 Hours 11/01/18 11/01/18 11/01/18 11/01/18 13:10 13:27 14:00 15:00 Pulse 96 102 96 Resp 18 26 24 B/P (MAP) 100/58 (72) 101/58 (72) 120/51 (74) Pulse Ox 100 100 96 98 O2 Delivery Ventilator Ventilator Ventilator Ventilator 11/01/18 11/01/18 11/01/18 11/01/18 15:24 16:00 16:00 16:09 Pulse 96 Resp 27 26 B/P (MAP) 138/50 (79) Pulse Ox 98 95 97 O2 Delivery Ventilator Mechanical Ventilator Ventilator Ventilator 11/01/18 11/01/18 11/01/18 11/01/18 17:00 17:49 17:52 18:22 Temp 98.6 98.6 Pulse 84 92 82 Resp 18 18 B/P (MAP) 101/72 (82) 91/41 (58) 99/40 (59) Pulse Ox 100 100 100 O2 Delivery Ventilator Ventilator Ventilator 11/01/18 11/01/18 11/01/18 11/01/18 19:00 20:00 20:00 20:30 Temp 98.9 98.9 Pulse 110 90 Resp 18 18 21 B/P (MAP) 192/79 (116) 143/75 (97) Pulse Ox 90 96 100 O2 Delivery Ventilator Ventilator Mechanical Ventilator Ventilator 11/01/18 11/01/18 11/01/18 11/01/18 20:30 20:31 21:00 22:00 Pulse 84 82 Resp 18 18 B/P (MAP) 141/64 (89) 111/60 (77) Pulse Ox 100 100 96 98 O2 Delivery Ventilator Ventilator Ventilator Ventilator 11/01/18 11/01/18 11/01/18 11/02/18 23:00 23:55 23:59 01:00 Temp 99.4 99.4 Pulse 106 74 Resp 18 18 B/P (MAP) 169/78 (108) 199/86 (123) Pulse Ox 96 100 96 O2 Delivery Ventilator Ventilator Mechanical Ventilator Ventilator 11/02/18 11/02/18 11/02/18 11/02/18 02:00 02:02 03:00 04:00 Pulse 74 73 Resp 18 18 B/P (MAP) 152/64 (93) 138/74 (95) Pulse Ox 96 100 96 O2 Delivery Ventilator Ventilator Ventilator Mechanical Ventilator 11/02/18 11/02/18 11/02/18 11/02/18 04:00 04:26 05:00 05:51 Temp 99.4 99.4 Pulse 114 114 Resp 18 24 30 B/P (MAP) 87/47 (60) 210/86 (127) Pulse Ox 96 100 96 96 O2 Delivery Ventilator Ventilator Ventilator 11/02/18 11/02/18 11/02/18 11/02/18 05:59 06:00 06:51 07:00 Pulse 111 86 Resp 23 23 25 B/P (MAP) 166/78 (107) 122/58 (79) Pulse Ox 100 97 97 97 O2 Delivery Ventilator Ventilator Ventilator Ventilator O2 Flow Rate 40.0 11/02/18 11/02/18 11/02/18 11/02/18 08:00 08:00 08:04 08:27 Temp 97.8 97.8 Pulse 78 81 Resp 20 B/P (MAP) 127/57 (80) 127/57 Pulse Ox 100 96 O2 Delivery Mechanical Ventilator Ventilator Ventilator O2 Flow Rate 40.0 11/02/18 11/02/18 11/02/1811/02/19 09:00 10:00 10:27 11:46 Pulse 108 116 117 Resp 28 30 B/P (MAP) 199/84 (122) 200/87 (124) 199/84 Pulse Ox 98 99 93 O2 Delivery Ventilator Ventilator Ventilator O2 Flow Rate 40.0 40.0 11/02/18 11/02/18 11/02/18 11:52 12:00 12:55 Pulse Ox 96 O2 Delivery Ventilator Mechanical Ventilator Ventilator Intake and Output 11/01/18 11/01/18 11/02/18 15:00 23:00 07:00 Intake Total 1120 ml 462 ml 819.38 ml Output Total 1125 ml 855 ml 360 ml Balance -5 ml -393 ml 459.38 ml MIKO JEFFERSON MD Nov 02, 2018 13:01
--- NOTE | 2018-11-02 13:13 | NUR ---
SS following for discharge planning. SS reviewed pt chart. Pt is from [facility], ; fax [phone]. SS phoned and faxed clinical updates to [facility]. [facility] reported that per insurance pt needs three midnights in the hospital to return. Pt's RN notified.
[2018-11-02] MEDS: MEROPENEM 500 MG in IV NORMAL SALINE 50ML 50 ML IV SCH ×3 (13:25→23:52)
[2018-11-02] MEDS: VANCOMYCIN PER PHARMACY MC PRN (13:45)
--- NOTE | 2018-11-02 13:50 | NUR ---
Pharmacy Vancomycin Dosing Note S:Consulted to monitor and dose vancomycin started 11/02/18. O:JOSLYN SOTELO is a 78 year old M with Bacteremia Height: 5 feet, 8 inches Weight: 99.8 kg [place] Body Weight: 68.40 Adjusted Body Weight: 80.96 Dosing Weight: Actual Other Antibiotics: Merrem 500mg IV Q6h LABS: Last BUN: 29 Last Creatinine: 1 Creatinine Clearance: 72 mL/min Last WBC: 9.8 Last Procalcitonin: Tmax (past 24 hours): 99.3 Microbiology: SPUTUM: MANY GNR BLOOD: GRAM POSITIVE COCCI IN PAIRS AND CHAINS, SUGGESTIVE OF STREP, IN 2 OF 4 BOTTLES, TWO SETS DRAWN I/O: 2401/2310 Last dose given 11/02/18 at 1326 Vancomycin Dosing: Loading Dose: 2000 mg x1 Dosing Weight: Actual Target Trough: 15-20 A: Based on: weight and renal function P: 1. Begin Vancomycin 1250 mg IV q12h 2. Follow up Trough level on 11/04/18 at 0030 3. Pharmacy will continue to monitor, follow and adjust therapy as needed. Angela Wong RPH, 11/02/18 [id number]
[2018-11-02] MEDS: HALOPERIDOL LACTATE 5 MG/ML VIAL. IVP PRN (15:45)
[2018-11-02] MEDS: LISINOPRIL 5 MG TABLET. PO SCH (20:26)
[2018-11-02] MEDS: LORazepam 1 MG TABLET PO SCH (20:27)
[2018-11-02] MEDS: INSULIN GLARGINE 300 UNITS/3 ML INSULN.PEN. SQ SCH (21:33)
[2018-11-02] MEDS: CLOTRIMAZOLE 10 MG TROCHE. MM SCH (21:38)
[2018-11-03] VITALS (23 sets, daily range): BP systolic 85–173; BP diastolic 46–95
[2018-11-03] MEDS: VANCOMYCIN 1.25 GM in IV NORMAL SALINE 250ML 250 ML IV SCH ×2 (01:25→13:09)
[2018-11-03] MEDS: HYDROcodone/APAP 5/325MG 1 TAB TABLET PO PRN ×3 (04:03→17:54)
[2018-11-03] MEDS: CLOTRIMAZOLE 10 MG TROCHE. MM SCH ×5 (06:20→21:03)
[2018-11-03] MEDS: MEROPENEM 500 MG in IV NORMAL SALINE 50ML 50 ML IV SCH ×3 (06:20→17:52)
[2018-11-03 06:26] LABS: CALCIUM 8.9 mg/dL (8.5-10.1); CREATININE 1.1 mg/dL (0.7-1.3); GFR 65.1; POTASSIUM 3.2 mmol/L (3.5-5.1)
[2018-11-03] MEDS: HALOPERIDOL LACTATE 5 MG/ML VIAL. IVP PRN ×2 (06:27→16:00)
[2018-11-03 06:34] LABS: BASO % 0 % (0-3); EOS # 0.2 x10^3/uL (0.0-0.7); EOS % 1 % (0-3); HEMATOCRIT 25.5 % (39.0-53.0); HEMOGLOBIN 8.3 g/dL (13.0-17.5); LYMPH # 0.9 x10^3/uL (1.0-4.8); LYMPH % 7 % (24-48); MEAN CORPUSCULAR HEMOGLOBIN 30 pg (25-35); MEAN CORPUSCULAR HGB CONC 33 g/dL (31-37); MEAN CORPUSCULAR VOLUME 92 fL (79-100); MONO # 0.8 x10^3/uL (0.0-1.1); MONO % 6 % (0-9); NEUT # 11.1 x10^3uL (1.8-7.7); NEUT % 85 % (31-73); PLATELET COUNT 256 x10^3/uL (140-400); RED BLOOD COUNT 2.76 x10^6/uL (4.30-5.70); RED CELL DISTRIBUTION WIDTH 16.8 % (11.5-14.5)
--- NOTE | 2018-11-03 07:13 | PDOC ---
Infectious Disease Note Subjective Subjective Intubated via trach Arousable Nods ok. Denies Nausea or pain ROS ROS unobtainable Vital Sign Vital Signs Vital Signs Date Time Temp Pulse Resp B/P (MAP) Pulse Ox O2 Delivery O2 Flow Rate FiO2 11/03/18 06:00 80 139/64 (89) 100 Ventilator 40.0 11/03/18 04:03 22 11/03/18 04:00 98.8 98.8 Physical Exam PHYSICAL EXAM GENERAL: Awakens in NAD HEENT: Eyes, the sclerae were nonicteric.Would not open mouth NECK: No Jugular venous distention, Trach is clean LUNGS: CTA CARDIOVASCULAR: Regular rate and rhythm with S1, S2 ABDOMEN: Soft, nontender, nondistended.PEG : Jeffers - urine less bloody still a little cloudy EXTREMITIES: No clubbing, cyanosis. Minimal edema. NEUROLOGIC: The patient was awake, alert, following commands IV: PICC - RUE -clean Labs Lab Laboratory Tests Test 11/03/18 06:00 White Blood Count 13.0 x10^3/uL (4.0-11.0) Red Blood Count 2.76 x10^6/uL (4.30-5.70) Hemoglobin 8.3 g/dL (13.0-17.5) Hematocrit 25.5 % (39.0-53.0) Mean Corpuscular Volume 92 fL (79-100) Mean Corpuscular Hemoglobin 30 pg (25-35) Mean Corpuscular Hemoglobin Concent 33 g/dL (31-37) Red Cell Distribution Width 16.8 % (11.5-14.5) Platelet Count 256 x10^3/uL (140-400) Neutrophils (%) (Auto) 85 % (31-73) Lymphocytes (%) (Auto) 7 % (24-48) Monocytes (%) (Auto) 6 % (0-9) Eosinophils (%) (Auto) 1 % (0-3) Basophils (%) (Auto) 0 % (0-3) Neutrophils # (Auto) 11.1 x10^3uL (1.8-7.7) Lymphocytes # (Auto) 0.9 x10^3/uL (1.0-4.8) Monocytes # (Auto) 0.8 x10^3/uL (0.0-1.1) Eosinophils # (Auto) 0.2 x10^3/uL (0.0-0.7) Basophils # (Auto) 0.0 x10^3/uL (0.0-0.2) Sodium Level 140 mmol/L (136-145) Potassium Level 3.2 mmol/L (3.5-5.1) Chloride Level 98 mmol/L (98-107) Carbon Dioxide Level 39 mmol/L (21-32) Anion Gap 3 (6-14) Blood Urea Nitrogen 30 mg/dL (8-26) Creatinine 1.1 mg/dL (0.7-1.3) Estimated GFR (Cockcroft-Gault) 65.1 Glucose Level 158 mg/dL (70-99) Calcium Level 8.9 mg/dL (8.5-10.1) Micro Microbiology 11/01/18 Blood Culture - Preliminary, Resulted NO GROWTH AFTER 1 DAY 11/01/18 - Final, Resulted 11/01/18 - Final, Resulted 11/01/18 - Final, Resulted 11/01/18 Gram Stain Evaluation - Final, Resulted 11/01/18 Sputum Culture, Resulted Pending Objective Assessment Leukocytosis - bands better Strep sepsis - POA 11/01 could be Enterococcus vs strep GNR sputum 11/01 ? true infection vs colonization H/o Bradycardia Bandemia UTI - GNR Cjncm-hb-pbvaani hypercapnic hypoxemic respiratory failure. Acute pulmonary embolism. Left basilic vein thrombus is identified. on U/S 11/01 H/o Mycoplasma Acute exacerbation of chronic obstructive pulmonary disease. History of alcoholism. Plan Plan of Care Added Vanc and Meropenem 11/02 F/u WBC - fever better/clinically seems better- may need time for abx to work F/u labs and cults Change Jeffers May need PICC change depending on Cults May need goals of therapy eval D/w nursing BELKYS SHEETS MD Nov 03, 2018 07:13
[2018-11-03] MEDS: BUDESONIDE 0.5 MG/2 ML NEBU. NEB SCH ×2 (08:06→20:13)
[2018-11-03] MEDS: ALBUTEROL SULFATE 2.5 MG/3 ML NEBU. NEB SCH ×4 (08:06→20:13)
[2018-11-03 08:18] LABS: BASE EXCESS ABG 10 mmol/L (-3-3); HCO3 ABG 36 mmol/L (21-28); PCO2 ABG 56 mmHg (35-46); PO2 ABG 99 mmHg (65-108); SAT O2 ABG 97 % (92-99)
[2018-11-03] MEDS: METOCLOPRAMIDE 10 MG TABLET. PO SCH ×4 (08:41→17:54)
[2018-11-03] MEDS: POTASSIUM CHL 20MEQ PREMIX 50 ML IV SCH ×2 (08:41→09:26)
[2018-11-03] MEDS: INSULIN LISPRO 300 UNITS/3 ML INSULN.PEN. SQ SCH ×4 (08:47→21:08)
--- NOTE | 2018-11-03 09:08 | CONS ---
DATE OF CONSULTATION: 11/02/2018 ROOM: ICU 14. REQUESTING PHYSICIAN: Dr. Fair. REASON FOR CONSULTATION: Positive blood cultures. HISTORY OF PRESENT ILLNESS: The patient is a 78-year-old gentleman who was initially admitted to [facility] back in 09/2011. At that time, he had some respiratory failure. He was diagnosed with mycoplasma and was treated. He does have a history of previous CVA, diabetes and COPD and has been oxygen dependent at home. During his last admission, he underwent a tracheostomy tube and PEG tube placement. He also had a Staph saprophyticus in his urine and eventually was taken off of antimicrobials, where he was transferred to [facility]. Now, was readmitted secondary to increased respiratory difficulty, hypertension and tachycardia with concerns for potential pneumothorax. He underwent CTA, which showed revealing small filling defect in the right lower lobe consistent with pulmonary emboli and a stlccjxp-fw-htuwmk centrilobular emphysema or patchy and mild infiltrates in the bases. He was admitted to the hospital to the ICU, has been placed on a ventilator. Cultures were obtained. Blood cultures now turned positive for 2 bottles out of 4 for Gram-positive cocci in pairs and chains suggestive of Strep and I have been consulted. He has not been placed on any antimicrobials as of yet. Currently, he is lying in bed. He is minimally responsive currently, but apparently he is more alert in the evening. 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 PAST SURGICAL HISTORY: Positive for cholecystectomy, right hip surgery, tracheostomy and bronchoscopies and PEG tube placement. REVIEW OF SYSTEMS: Unobtainable. ALLERGIES: LISTED PENICILLIN CAUSING HIVES AND THROAT SWELLING. ERYTHROMYCIN CAUSED HIVES, has tolerated meropenem. REVIEW OF SYSTEMS: Unobtainable. SOCIAL HISTORY: He is , has a history of tobacco abuse as well as alcohol abuse. FAMILY HISTORY: Noncontributory. CURRENT MEDICATIONS: Include heparin, DuoNebs, Norvasc, Colace, Pulmicort, Pepcid, Lasix, hydralazine, insulin, Reglan. Other meds are available and reviewed in the chart. PHYSICAL EXAMINATION: VITAL SIGNS: Temperature 99.78, T-max has been 99.4, pulse 117, blood pressure 199/84. He is satting 96% on the ventilator. Respiratory rate had been 30, appears to be about 22 currently. He is intubated via trach. HEENT: Pupils are equal and reactive. He is minimally responsive, would not open his mouth. NECK: Supple. There is no JVD. Trach site without complications. LUNGS: Decreased in the bases. HEART: S1, S2. ABDOMEN: Soft, nontender. There is no rebound. PEG tube placed without complications. GENITOURINARY: Jeffers is in place. He has got some bloody cloudy urine. EXTREMITIES: No clubbing, cyanosis with trace edema. SKIN: Without generalized signs of rash, although his left upper extremity has some mild erythema and some bruising. There is no warmth. IV: He has a PICC line in right upper extremity. NEUROLOGIC: He is minimally responsive today. LABORATORY VALUES: White count was 9.8 on arrival. Hemoglobin 10.3, platelets of 287, bands 19, segs 62. Creatinine of 1, glucose 226. Normal liver function study tests. Urinalysis concerning for potential urinary tract infection. MRSA screen negative. Left upper extremity has a left basilic vein thrombus identified. Chest x-ray: COPD. CTA reviewed in history of present illness. IMPRESSION: 1. Strep sepsis present on admission 11/01/2018, could be Enterococcus although versus strep, only identified in pairs and chains at this point. 2. Gram-negative in the sputum from the 5th, questionable to infection versus colonization. 3. Bandemia. 4. Questionable urinary tract infection, now with bloody urine. 5. Wmvsh-zr-efunced hypercapnic hypoxic respiratory failure. 6. Acute pulmonary embolism. 7. Left vein thrombosis identified on ultrasound on 11/01/2018. 8. History of mycoplasma. 9. Acute exacerbation of chronic obstructive pulmonary disease. 10. History of alcoholism. RECOMMENDATIONS: We will add vancomycin, meropenem. No antibiotics have been ordered as of yet. Follow up labs and cultures. May need goals of therapy evaluation. Thank you for asking me to participate in patient's care. Should you have any questions, please do not hesitate to contact me. BELKYS SHEETS MD DR: Kamlesh JOB#: [id number] / [id number]
[2018-11-03] MEDS: POLYETHYLENE GLYCOL 3350 17 GM PACKET. PO SCH (09:25)
[2018-11-03] MEDS: amLODIPine BESYLATE 5 MG TABLET PO SCH (09:26)
[2018-11-03] MEDS: FAMOTIDINE 20 MG TABLET. PO SCH ×2 (09:26→21:03)
[2018-11-03] MEDS: FUROSEMIDE 40 MG TABLET. PO SCH (09:26)
[2018-11-03] MEDS: HEPARIN for IV BOLUS 10,000 UNIT/10 ML VIAL. IV PRN (09:57)
[2018-11-03 10:02] LABS: FIO2 ABG 35
[2018-11-03] MEDS: VANCOMYCIN PER PHARMACY MC PRN (10:24)
--- NOTE | 2018-11-03 11:03 | PDOC ---
PULMONARY PROGRESS NOTES Subjective lead to patient is calm today, currently on assist control ventilation Vitals Vital Signs Date Time Temp Pulse Resp B/P (MAP) Pulse Ox O2 Delivery O2 Flow Rate FiO2 11/03/18 10:28 100 Ventilator 11/03/18 10:00 79 17 85/51 (62) 11/03/18 08:00 98.0 98.0 11/03/18 06:00 40.0 HEENT: Other Lungs: Crackles Cardiovascular: S1, S2 Abdomen: Soft, Non-tender, Other Extremities: Other (edema) Skin: Warm Labs Laboratory Tests Test 11/01/18 14:00 11/01/18 19:50 11/02/18 06:05 11/03/18 06:00 Heparin Anti-Xa Act, Unfractionated 1.09 IU/mL (0.30-0.70) 0.62 IU/mL (0.30-0.70) 0.42 IU/mL (0.30-0.70) 0.24 IU/mL (0.30-0.70) White Blood Count 13.0 x10^3/uL (4.0-11.0) Red Blood Count 2.76 x10^6/uL (4.30-5.70) Hemoglobin 8.3 g/dL (13.0-17.5) Hematocrit 25.5 % (39.0-53.0) Mean Corpuscular Volume 92 fL (79-100) Mean Corpuscular Hemoglobin 30 pg (25-35) Mean Corpuscular Hemoglobin Concent 33 g/dL (31-37) Red Cell Distribution Width 16.8 % (11.5-14.5) Platelet Count 256 x10^3/uL (140-400) Neutrophils (%) (Auto) 85 % (31-73) Lymphocytes (%) (Auto) 7 % (24-48) Monocytes (%) (Auto) 6 % (0-9) Eosinophils (%) (Auto) 1 % (0-3) Basophils (%) (Auto) 0 % (0-3) Neutrophils # (Auto) 11.1 x10^3uL (1.8-7.7) Lymphocytes # (Auto) 0.9 x10^3/uL (1.0-4.8) Monocytes # (Auto) 0.8 x10^3/uL (0.0-1.1) Eosinophils # (Auto) 0.2 x10^3/uL (0.0-0.7) Basophils # (Auto) 0.0 x10^3/uL (0.0-0.2) Sodium Level 140 mmol/L (136-145) Potassium Level 3.2 mmol/L (3.5-5.1) Chloride Level 98 mmol/L (98-107) Carbon Dioxide Level 39 mmol/L (21-32) Anion Gap 3 (6-14) Blood Urea Nitrogen 30 mg/dL (8-26) Creatinine 1.1 mg/dL (0.7-1.3) Estimated GFR (Cockcroft-Gault) 65.1 Glucose Level 158 mg/dL (70-99) Calcium Level 8.9 mg/dL (8.5-10.1) Magnesium Level 2.1 mg/dL (1.8-2.4) Test 11/03/18 08:00 O2 Saturation 97 % (92-99) Arterial Blood pH 7.42 (7.35-7.45) Arterial Blood pCO2 at Patient Temp 56 mmHg (35-46) Arterial Blood pO2 at Patient Temp 99 mmHg (65-108) Arterial Blood HCO3 36 mmol/L (21-28) Arterial Blood Base Excess 10 mmol/L (-3-3) FiO2 35 Laboratory Tests Test 11/03/18 06:00 11/03/18 08:00 White Blood Count 13.0 x10^3/uL (4.0-11.0) Red Blood Count 2.76 x10^6/uL (4.30-5.70) Hemoglobin 8.3 g/dL (13.0-17.5) Hematocrit 25.5 % (39.0-53.0) Mean Corpuscular Volume 92 fL (79-100) Mean Corpuscular Hemoglobin 30 pg (25-35) Mean Corpuscular Hemoglobin Concent 33 g/dL (31-37) Red Cell Distribution Width 16.8 % (11.5-14.5) Platelet Count 256 x10^3/uL (140-400) Neutrophils (%) (Auto) 85 % (31-73) Lymphocytes (%) (Auto) 7 % (24-48) Monocytes (%) (Auto) 6 % (0-9) Eosinophils (%) (Auto) 1 % (0-3) Basophils (%) (Auto) 0 % (0-3) Neutrophils # (Auto) 11.1 x10^3uL (1.8-7.7) Lymphocytes # (Auto) 0.9 x10^3/uL (1.0-4.8) Monocytes # (Auto) 0.8 x10^3/uL (0.0-1.1) Eosinophils # (Auto) 0.2 x10^3/uL (0.0-0.7) Basophils # (Auto) 0.0 x10^3/uL (0.0-0.2) Heparin Anti-Xa Act, Unfractionated 0.24 IU/mL (0.30-0.70) Sodium Level 140 mmol/L (136-145) Potassium Level 3.2 mmol/L (3.5-5.1) Chloride Level 98 mmol/L (98-107) Carbon Dioxide Level 39 mmol/L (21-32) Anion Gap 3 (6-14) Blood Urea Nitrogen 30 mg/dL (8-26) Creatinine 1.1 mg/dL (0.7-1.3) Estimated GFR (Cockcroft-Gault) 65.1 Glucose Level 158 mg/dL (70-99) Calcium Level 8.9 mg/dL (8.5-10.1) Magnesium Level 2.1 mg/dL (1.8-2.4) O2 Saturation 97 % (92-99) Arterial Blood pH 7.42 (7.35-7.45) Arterial Blood pCO2 at Patient Temp 56 mmHg (35-46) Arterial Blood pO2 at Patient Temp 99 mmHg (65-108) Arterial Blood HCO3 36 mmol/L (21-28) Arterial Blood Base Excess 10 mmol/L (-3-3) FiO2 35 Medications Active Scripts Medications Dose Route/Sig Max Daily Dose Days Date Category Pepcid (Famotidine) 20 Mg Tablet 20 Mg PO BID 11/01/18 Reported Albuterol Sulfate Neb Soln (Albuterol Sulfate) 2.5 Mg/3 Ml Vial.neb 2.5 Mg NEB [id number] 11/01/18 Reported Hydralazine Hcl 10 Mg Tablet 10 Mg IV PRN Q4HRS PRN 11/01/18 Reported Amlodipine Besylate 5 Mg Tablet 5 Mg PO DAILY 11/01/18 Reported Miralax (Polyethylene Glycol 3350) 17 Gm Powd.pack 1 Packet PO DAILY 11/01/18 Reported Zofran (Ondansetron Hcl) 4 Mg Tablet 1 Tab IV Q6HRS 11/01/18 Reported Reglan (Metoclopramide Hcl) 10 Mg Tablet 10 Mg PO QIDACHS 11/01/18 Reported Lorazepam 1 Mg Tablet 1 Tab PO PRN Q6HRS PRN 11/01/18 Reported Lantus (Insulin Glargine,Hum.rec.anlog) 100 Unit/1 Ml Vial 10 Unit SQ HS 11/01/18 Reported Hydrocodone-Acetamin 5-325 mg (Hydrocodone/Acetaminophen) 1 Each Tablet 1 Each PO PRN Q6HRS PRN 11/01/18 Reported Lasix (Furosemide) 40 Mg Tablet 40 Mg IV DAILY PRN 11/01/18 Reported Fluconazole 100 Mg Tablet 1 Tab PO DAILY 11/01/18 Reported Pulmicort (Budesonide) 0.5 Mg/2 Ml Ampul.neb 1 Vial NEB BID 11/01/18 Reported Bisacodyl 10 Mg Supp.rect 10 Mg RC PRN DAILY PRN 11/01/18 Reported Proair Hfa (Albuterol Sulfate) 8.5 Gm Hfa.aer.ad 1 Puff INH PRN Q6HRS PRN 10/07/18 Reported Oxazepam 30 Mg Capsule 30 Mg PO QHS 10/07/18 Reported Impression . IMPRESSION: 1. Ktyzh-za-eonglfq hypercapnic hypoxemic respiratory failure. 2. Acute pulmonary embolism. 3. Acute exacerbation of chronic obstructive pulmonary disease. 4. History of alcoholism. 5. History of tobacco use. Plan . difficult wean ok to transfer to [facility] nutritional support will continue support anticoagulation case discussed with KRISTI NUÑEZ MD Nov 03, 2018 11:03
--- NOTE | 2018-11-03 14:21 | PDOC ---
JEREMIAH CANTRELL CREDIT ADJUSTER 11/03/18 1421: CARDIO Progress Notes Date and Time Date of Service 11/03/2018 Time of Evaluation 1400 Subjective Subjective: Other (nonverbal with trach, not in distress or pain) Vitals Vitals Vital Signs Date Time Temp Pulse Resp B/P (MAP) Pulse Ox O2 Delivery O2 Flow Rate FiO2 11/03/18 13:00 77 20 99/48 (65) 97 Ventilator 11/03/18 12:00 98.4 98.4 11/03/18 06:00 40.0 Weight Weight [ ] Input and Output Intake and Output Intake and Output 11/03/18 07:00 Intake Total 3881.5 ml Output Total 1486 ml Balance 2395.5 ml Intake IV Total 981.5 ml Tube Feeding 2220 ml Blood Product IV Normal Saline Flush 250 ml Other 430 ml Output Urine Total 1485 ml Stool Total 1 ml Gastric Drainage Total 0 ml Laboratory Labs Laboratory Tests Test 11/03/18 06:00 11/03/18 08:00 White Blood Count 13.0 x10^3/uL (4.0-11.0) Red Blood Count 2.76 x10^6/uL (4.30-5.70) Hemoglobin 8.3 g/dL (13.0-17.5) Hematocrit 25.5 % (39.0-53.0) Mean Corpuscular Volume 92 fL (79-100) Mean Corpuscular Hemoglobin 30 pg (25-35) Mean Corpuscular Hemoglobin Concent 33 g/dL (31-37) Red Cell Distribution Width 16.8 % (11.5-14.5) Platelet Count 256 x10^3/uL (140-400) Neutrophils (%) (Auto) 85 % (31-73) Lymphocytes (%) (Auto) 7 % (24-48) Monocytes (%) (Auto) 6 % (0-9) Eosinophils (%) (Auto) 1 % (0-3) Basophils (%) (Auto) 0 % (0-3) Neutrophils # (Auto) 11.1 x10^3uL (1.8-7.7) Lymphocytes # (Auto) 0.9 x10^3/uL (1.0-4.8) Monocytes # (Auto) 0.8 x10^3/uL (0.0-1.1) Eosinophils # (Auto) 0.2 x10^3/uL (0.0-0.7) Basophils # (Auto) 0.0 x10^3/uL (0.0-0.2) Heparin Anti-Xa Act, Unfractionated 0.24 IU/mL (0.30-0.70) Sodium Level 140 mmol/L (136-145) Potassium Level 3.2 mmol/L (3.5-5.1) Chloride Level 98 mmol/L (98-107) Carbon Dioxide Level 39 mmol/L (21-32) Anion Gap 3 (6-14) Blood Urea Nitrogen 30 mg/dL (8-26) Creatinine 1.1 mg/dL (0.7-1.3) Estimated GFR (Cockcroft-Gault) 65.1 Glucose Level 158 mg/dL (70-99) Calcium Level 8.9 mg/dL (8.5-10.1) Magnesium Level 2.1 mg/dL (1.8-2.4) O2 Saturation 97 % (92-99) Arterial Blood pH 7.42 (7.35-7.45) Arterial Blood pCO2 at Patient Temp 56 mmHg (35-46) Arterial Blood pO2 at Patient Temp 99 mmHg (65-108) Arterial Blood HCO3 36 mmol/L (21-28) Arterial Blood Base Excess 10 mmol/L (-3-3) FiO2 35 Microbiology Micro Microbiology 11/01/18 Blood Culture - Preliminary, Resulted NO GROWTH AFTER 2 DAYS 11/01/18 - Final, Resulted 11/01/18 - Final, Resulted 11/01/18 - Final, Resulted 11/01/18 Gram Stain Evaluation - Final, Resulted 11/01/18 Sputum Culture - Preliminary, Resulted 11/01/18 Sputum Result 1 - Final, Resulted 11/01/18 Urine Culture - Preliminary, Resulted 11/01/18 Urine Culture Result 1 (ELEN) - Preliminary, Resulted Physical Exam HEENT: Neck Supple W Full Motion Chest: Symmetric LUNGS: Other (diminished bases, trach with vent) Heart: RRR (SR) Abdomen: Soft N/T Extremities: Other Neurology: alert, follow commands, non-verbal Assessment Assessment 1. Acute on chronic respiratory failure with AECOPD, CHF and new RLL PE: Trach/vent. Pulmonary following 2. Left basilic vein thrombosis 3. Acute on chronic diastolic/systolic CHF: prior EF at 40%, presumed NICM, compensated 4. Accelerated HTN: controlled. more calm today 5. Hx of sinus bradycardia 6. CKD/hematuria: better Recommendations 1. Norvasc, lisinopril. Hydralazine IV.PRN 2. Heparin per pulmonary 3. Lasix therapy, supportive care. K replacement 4. Poor candidate for cardiac catheterization despite his LV dysfunction. Continue medical optimization. 5. Unable to place on BB due to hx of bradycardia. ROXANN MORALES MD 11/03/18 1437: CARDIO Progress Notes Plan Plan Pt. seen and examined. Agree with above TELEGRAPHIC TYPEWRITER INSTALLER note. JEREMIAH CANTRELL CREDIT ADJUSTER Nov 03, 2018 14:21 ROXANN MORALES MD Nov 03, 2018 14:37
--- NOTE | 2018-11-03 15:56 | PDOC ---
PROGRESS NOTES Chief Complaint Chief Complaint acute on chronic hypoxia, with hypercarbia and COPD exacerbation, was still weaning vent at LTAC sepsis, + blood cultures possible mucus plug Acute pulmonary embolism, on heparin gtt History of Present Illness History of Present Illness cont care in ICU cont current broad abx, supportive care may be able to return to LTAC at some point Vitals Vitals Vital Signs Date Time Temp Pulse Resp B/P (MAP) Pulse Ox O2 Delivery O2 Flow Rate FiO2 11/03/18 14:29 100 Ventilator 11/03/18 13:00 77 20 99/48 (65) 11/03/18 12:00 98.4 98.4 11/03/18 06:00 40.0 Physical Exam Physical Exam GENERAL: Awakens in NAD HEENT: Eyes, the sclerae were nonicteric.Would not open mouth NECK: No Jugular venous distention, Trach is clean LUNGS: CTA CARDIOVASCULAR: Regular rate and rhythm with S1, S2 ABDOMEN: Soft, nontender, nondistended.PEG : [place] - urine less bloody still a little cloudy EXTREMITIES: No clubbing, cyanosis. Minimal edema. NEUROLOGIC: The patient was awake, alert, following commands IV: PICC - RUE -clean General: No acute distress, Other (lethargic) Heart: Regular rate (Sinus tach), No murmurs Lungs: Crackles Abdomen: Soft, Other (obese; PEG) Extremities: Other (2+ bilateral LE pitting edema) Skin: No significant lesion Labs LABS Laboratory Tests Test 11/03/18 06:00 11/03/18 08:00 White Blood Count 13.0 x10^3/uL (4.0-11.0) Red Blood Count 2.76 x10^6/uL (4.30-5.70) Hemoglobin 8.3 g/dL (13.0-17.5) Hematocrit 25.5 % (39.0-53.0) Mean Corpuscular Volume 92 fL (79-100) Mean Corpuscular Hemoglobin 30 pg (25-35) Mean Corpuscular Hemoglobin Concent 33 g/dL (31-37) Red Cell Distribution Width 16.8 % (11.5-14.5) Platelet Count 256 x10^3/uL (140-400) Neutrophils (%) (Auto) 85 % (31-73) Lymphocytes (%) (Auto) 7 % (24-48) Monocytes (%) (Auto) 6 % (0-9) Eosinophils (%) (Auto) 1 % (0-3) Basophils (%) (Auto) 0 % (0-3) Neutrophils # (Auto) 11.1 x10^3uL (1.8-7.7) Lymphocytes # (Auto) 0.9 x10^3/uL (1.0-4.8) Monocytes # (Auto) 0.8 x10^3/uL (0.0-1.1) Eosinophils # (Auto) 0.2 x10^3/uL (0.0-0.7) Basophils # (Auto) 0.0 x10^3/uL (0.0-0.2) Heparin Anti-Xa Act, Unfractionated 0.24 IU/mL (0.30-0.70) Sodium Level 140 mmol/L (136-145) Potassium Level 3.2 mmol/L (3.5-5.1) Chloride Level 98 mmol/L (98-107) Carbon Dioxide Level 39 mmol/L (21-32) Anion Gap 3 (6-14) Blood Urea Nitrogen 30 mg/dL (8-26) Creatinine 1.1 mg/dL (0.7-1.3) Estimated GFR (Cockcroft-Gault) 65.1 Glucose Level 158 mg/dL (70-99) Calcium Level 8.9 mg/dL (8.5-10.1) Magnesium Level 2.1 mg/dL (1.8-2.4) O2 Saturation 97 % (92-99) Arterial Blood pH 7.42 (7.35-7.45) Arterial Blood pCO2 at Patient Temp 56 mmHg (35-46) Arterial Blood pO2 at Patient Temp 99 mmHg (65-108) Arterial Blood HCO3 36 mmol/L (21-28) Arterial Blood Base Excess 10 mmol/L (-3-3) FiO2 35 Assessment and Plan Assessmemt and Plan Problems Medical Problems: (1) Dyspnea Status: Acute (2) Respiratory failure Status: Acute (3) Upper leg DVT (deep venous thromboembolism), acute Status: Acute Comment Review of Relevant I have reviewed the following items akbar (where applicable) has been applied. Labs Laboratory Tests Test 11/01/18 19:50 11/02/18 06:05 11/03/18 06:00 11/03/18 08:00 Heparin Anti-Xa Act, Unfractionated 0.62 IU/mL (0.30-0.70) 0.42 IU/mL (0.30-0.70) 0.24 IU/mL (0.30-0.70) White Blood Count 13.0 x10^3/uL (4.0-11.0) Red Blood Count 2.76 x10^6/uL (4.30-5.70) Hemoglobin 8.3 g/dL (13.0-17.5) Hematocrit 25.5 % (39.0-53.0) Mean Corpuscular Volume 92 fL (79-100) Mean Corpuscular Hemoglobin 30 pg (25-35) Mean Corpuscular Hemoglobin Concent 33 g/dL (31-37) Red Cell Distribution Width 16.8 % (11.5-14.5) Platelet Count 256 x10^3/uL (140-400) Neutrophils (%) (Auto) 85 % (31-73) Lymphocytes (%) (Auto) 7 % (24-48) Monocytes (%) (Auto) 6 % (0-9) Eosinophils (%) (Auto) 1 % (0-3) Basophils (%) (Auto) 0 % (0-3) Neutrophils # (Auto) 11.1 x10^3uL (1.8-7.7) Lymphocytes # (Auto) 0.9 x10^3/uL (1.0-4.8) Monocytes # (Auto) 0.8 x10^3/uL (0.0-1.1) Eosinophils # (Auto) 0.2 x10^3/uL (0.0-0.7) Basophils # (Auto) 0.0 x10^3/uL (0.0-0.2) Sodium Level 140 mmol/L (136-145) Potassium Level 3.2 mmol/L (3.5-5.1) Chloride Level 98 mmol/L (98-107) Carbon Dioxide Level 39 mmol/L (21-32) Anion Gap 3 (6-14) Blood Urea Nitrogen 30 mg/dL (8-26) Creatinine 1.1 mg/dL (0.7-1.3) Estimated GFR (Cockcroft-Gault) 65.1 Glucose Level 158 mg/dL (70-99) Calcium Level 8.9 mg/dL (8.5-10.1) Magnesium Level 2.1 mg/dL (1.8-2.4) O2 Saturation 97 % (92-99) Arterial Blood pH 7.42 (7.35-7.45) Arterial Blood pCO2 at Patient Temp 56 mmHg (35-46) Arterial Blood pO2 at Patient Temp 99 mmHg (65-108) Arterial Blood HCO3 36 mmol/L (21-28) Arterial Blood Base Excess 10 mmol/L (-3-3) FiO2 35 Laboratory Tests Test 11/03/18 06:00 11/03/18 08:00 White Blood Count 13.0 x10^3/uL (4.0-11.0) Red Blood Count 2.76 x10^6/uL (4.30-5.70) Hemoglobin 8.3 g/dL (13.0-17.5) Hematocrit 25.5 % (39.0-53.0) Mean Corpuscular Volume 92 fL (79-100) Mean Corpuscular Hemoglobin 30 pg (25-35) Mean Corpuscular Hemoglobin Concent 33 g/dL (31-37) Red Cell Distribution Width 16.8 % (11.5-14.5) Platelet Count 256 x10^3/uL (140-400) Neutrophils (%) (Auto) 85 % (31-73) Lymphocytes (%) (Auto) 7 % (24-48) Monocytes (%) (Auto) 6 % (0-9) Eosinophils (%) (Auto) 1 % (0-3) Basophils (%) (Auto) 0 % (0-3) Neutrophils # (Auto) 11.1 x10^3uL (1.8-7.7) Lymphocytes # (Auto) 0.9 x10^3/uL (1.0-4.8) Monocytes # (Auto) 0.8 x10^3/uL (0.0-1.1) Eosinophils # (Auto) 0.2 x10^3/uL (0.0-0.7) Basophils # (Auto) 0.0 x10^3/uL (0.0-0.2) Heparin Anti-Xa Act, Unfractionated 0.24 IU/mL (0.30-0.70) Sodium Level 140 mmol/L (136-145) Potassium Level 3.2 mmol/L (3.5-5.1) Chloride Level 98 mmol/L (98-107) Carbon Dioxide Level 39 mmol/L (21-32) Anion Gap 3 (6-14) Blood Urea Nitrogen 30 mg/dL (8-26) Creatinine 1.1 mg/dL (0.7-1.3) Estimated GFR (Cockcroft-Gault) 65.1 Glucose Level 158 mg/dL (70-99) Calcium Level 8.9 mg/dL (8.5-10.1) Magnesium Level 2.1 mg/dL (1.8-2.4) O2 Saturation 97 % (92-99) Arterial Blood pH 7.42 (7.35-7.45) Arterial Blood pCO2 at Patient Temp 56 mmHg (35-46) Arterial Blood pO2 at Patient Temp 99 mmHg (65-108) Arterial Blood HCO3 36 mmol/L (21-28) Arterial Blood Base Excess 10 mmol/L (-3-3) FiO2 35 Microbiology 11/01/18 Blood Culture - Preliminary, Resulted NO GROWTH AFTER 2 DAYS 11/01/18 - Final, Resulted 11/01/18 - Final, Resulted 11/01/18 - Final, Resulted 11/01/18 Gram Stain Evaluation - Final, Resulted 11/01/18 Sputum Culture - Preliminary, Resulted 11/01/18 Sputum Result 1 - Final, Resulted 11/01/18 Urine Culture - Preliminary, Resulted 11/01/18 Urine Culture Result 1 (ELEN) - Preliminary, Resulted Medications Current Medications Albuterol/ Ipratropium (Duoneb) 3 ml 1X ONCE NEB Last administered on 11/01/18at 06:10; Start 11/01/18 at 06:30; Stop 11/01/18 at 06:31; Status DC Albuterol/ Ipratropium (Duoneb) 3 ml 1X ONCE NEB Last administered on 11/01/18at 06:10; Start 11/01/18 at 06:30; Stop 11/01/18 at 06:31; Status DC Sodium Chloride 1,000 ml @ 1,000 mls/hr Q1H IV Last administered on 11/01/18at 06:40; Start 11/01/18 at 06:30; Stop 11/01/18 at 07:29; Status DC Iohexol (Omnipaque 350 Mg/ml) 90 ml 1X ONCE IV Last administered on 11/01/18 07:44; Start 11/01/18 at 07:15; Stop 11/01/18 at 07:16; Status DC Info (CONTRAST GIVEN -- Rx MONITORING) 1 each PRN DAILY PRN MC SEE COMMENTS; Start 11/01/18 at 07:15; Stop 11/03/18 at 07:14; Status DC Heparin Sodium (Porcine) (Heparin Sodium) 8,000 unit 1X ONCE IV Last administered on 11/01/18 08:17; Start 11/01/18 at 08:00; Stop 11/01/18 at 08:01; Status DC Heparin Sodium/ Dextrose 500 ml @ 0 mls/hr CONT PRN IV SEE I/O RECORD Last administered on 11/02/18 23:48; Start 11/01/18 at 08:00 Albuterol Sulfate (Ventolin Neb Soln) 2.5 mg RTQID NEB Last administered on 11/03/18 15:54; Start 11/01/18 at 12:00 Albuterol Sulfate (Ventolin Neb Soln) 2.5 mg PRN Q6HRS PRN INH SHORTNESS OF BREATH; Start 11/01/18 at 10:15 Amlodipine Besylate (Norvasc) 5 mg DAILY PO Last administered on 11/03/18 09:26; Start 11/01/18 at 11:00 Budesonide (Pulmicort) 0.5 mg RTBID NEB Last administered on 11/03/18 08:06; Start 11/01/18 at 11:00 Famotidine (Pepcid) 20 mg BID PO Last administered on 11/03/18 09:26; Start 11/01/18 at 11:00 Furosemide (Lasix) 40 mg PRN DAILY PRN PO FLUID RETENTION; Start 11/01/18 at 10:15; Stop 11/01/18 at 14:02; Status DC Acetaminophen/ Hydrocodone Bitart (Lortab 5/325) 1 tab PRN Q6HRS PRN PO PAIN Last administered on 11/03/18 11:45; Start 11/01/18 at 10:15 Lorazepam (Ativan) 1 mg PRN Q6HRS PRN PO ANXIETY / AGITATION Last administered on 11/02/18 05:51; Start 11/01/18 at 10:15 Metoclopramide HCl (Reglan) 10 mg QIDACHS PO Last administered on 11/03/18 08:41; Start 11/01/18 at 11:30 Bisacodyl (Dulcolax Supp) 10 mg PRN DAILY PRN [place] CONSTIPATION; Start 11/01/18 at 10:30 Hydralazine HCl (Apresoline Inj) 10 mg PRN Q4HRS PRN IVP HYPERTENSION Last administered on 11/02/18 15:45; Start 11/01/18 at 10:30 Insulin Glargine (Lantus) 10 units QHS SQ Last administered on 11/02/18 21:33; Start 11/01/18 at 21:00 Ondansetron HCl (Zofran) 4 mg PRN Q6HRS PRN IV NAUSEA/VOMITING; Start 11/01/18 at 10:30 Lorazepam (Ativan) 2 mg QHS PO Last administered on 11/02/18 20:27; Start 11/01/18 at 21:00 Polyethylene Glycol (miraLAX PACKET) 17 gm DAILY PO Last administered on 11/03/18 09:25; Start 11/01/18 at 11:00 Info (Anti-Coagulation Monitoring By Pharmacy) 1 each PRN DAILY PRN MC SEE COMMENTS Last administered on 11/02/18 10:56; Start 11/01/18 at 10:45 Insulin Human Lispro (HumaLOG) 0-5 UNITS TIDWMEALS SQ Last administered on 11/02/18 18:40; Start 11/01/18 at 12:00; Stop 11/02/18 at 21:37; Status DC Dextrose (Dextrose 50%-Water Syringe) 12.5 gm PRN Q15MIN PRN IV SEE COMMENTS; Start 11/01/18 at 10:15 Furosemide (Lasix) 40 mg DAILY PO Last administered on 11/03/18 09:26; Start 11/01/18 at 14:15 Diphenhydramine HCl (Benadryl) 25 mg PRN Q6HRS PRN IVP ITCHING Last administered on 11/02/18 05:51; Start 11/01/18 at 19:45 Lorazepam (Ativan Inj) 0.5 mg 1X ONCE IV Last administered on 11/02/18 10:27; Start 11/02/18 at 10:15; Stop 11/02/18 at 10:16; Status DC Vancomycin HCl (Vanco Per Pharmacy) 1 each PRN DAILY PRN MC SEE COMMENTS Last administered on 11/03/18 10:24; Start 11/02/18 at 12:30 Meropenem 500 mg/ Sodium Chloride 50 ml @ 100 mls/hr Q6HRS IV Last administered on 11/03/18 11:41; Start 11/02/18 at 13:00 Vancomycin HCl 2 gm/Sodium Chloride 500 ml @ 250 mls/hr 1X ONCE IV Last administered on 11/02/18 13:26; Start 11/02/18 at 13:00; Stop 11/02/18 at 14:59; Status DC Lisinopril (Prinivil) 5 mg QHS PO Last administered on 11/02/18 20:26; Start 11/02/18 at 21:00 Haloperidol Lactate (Haldol Inj) 5 mg PRN Q6HRS PRN IVP AGITATION Last administered on 11/03/18 06:27; Start 11/02/18 at 13:15 Vancomycin HCl 1.25 gm/Sodium Chloride 250 ml @ 167 mls/hr Q12H IV Last administered on 11/03/18 13:09; Start 11/03/18 at 01:00 Vancomycin HCl (Vancomycin Trough Level) 1 each 1X ONCE MC ; Start 11/04/18 at 00:30; Stop 11/04/18 at 00:31 Clotrimazole (Mycelex) 10 mg 5XDAY MM Last administered on 11/03/18 10:00; Start 11/02/18 at 22:00 Insulin Human Lispro (HumaLOG) 0-5 UNITS QIDACHS SQ Last administered on 11/03/18 11:43; Start 11/02/18 at 21:35 Potassium Chloride/Water 50 ml @ 50 mls/hr Q1H IV Last administered on 11/03/18 09:26; Start 11/03/18 at 08:00; Stop 11/03/18 at 09:59; Status DC Heparin Sodium (Porcine) (Heparin Sodium) 1,400 unit PRN Q6HRS PRN IV FOR UFH LEVEL 0.2 - 0.29 Last administered on 6/7/19at 09:57; Start 11/03/18 at 10:00 Potassium Chloride (KCl Oral Soln) 10 meq DAILY PEG ; Start 11/03/18 at 15:00 Active Scripts Active Reported Pepcid (Famotidine) 20 Mg Tablet 20 Mg PO BID Albuterol Sulfate Neb Soln (Albuterol Sulfate) 2.5 Mg/3 Ml Vial.neb 2.5 Mg NEB [id number] Hydralazine Hcl 10 Mg Tablet 10 Mg IV PRN Q4HRS PRN Amlodipine Besylate 5 Mg Tablet 5 Mg PO DAILY Miralax (Polyethylene Glycol 3350) 17 Gm Powd.pack 1 Packet PO DAILY Zofran (Ondansetron Hcl) 4 Mg Tablet 1 Tab IV Q6HRS Reglan (Metoclopramide Hcl) 10 Mg Tablet 10 Mg PO QIDACHS Lorazepam 1 Mg Tablet 1 Tab PO PRN Q6HRS PRN Lantus (Insulin Glargine,Hum.rec.anlog) 100 Unit/1 Ml Vial 10 Unit SQ HS Hydrocodone-Acetamin 5-325 mg (Hydrocodone/Acetaminophen) 1 Each Tablet 1 Each PO PRN Q6HRS PRN Lasix (Furosemide) 40 Mg Tablet 40 Mg IV DAILY PRN Fluconazole 100 Mg Tablet 1 Tab PO DAILY Pulmicort (Budesonide) 0.5 Mg/2 Ml Ampul.neb 1 Vial NEB BID Bisacodyl 10 Mg Supp.rect 10 Mg RC PRN DAILY PRN Proair Hfa (Albuterol Sulfate) 8.5 Gm Hfa.aer.ad 1 Puff INH PRN Q6HRS PRN Oxazepam 30 Mg Capsule 30 Mg PO QHS Vitals/I & O Vital Sign - Last 24 Hours 11/02/18 11/02/18 11/02/18 11/02/18 16:00 16:00 17:00 17:08 Temp 98.0 98.0 Pulse 108 110 Resp 20 25 B/P (MAP) 165/63 (97) 137/51 (79) Pulse Ox 99 98 O2 Delivery Ventilator Mechanical Ventilator Ventilator Ventilator O2 Flow Rate 40.0 40.0 11/02/18 11/02/18 11/02/18 11/02/18 18:00 19:00 20:00 20:00 Temp 98.9 98.9 Pulse 88 106 112 Resp 25 B/P (MAP) 133/58 (83) 171/71 (104) 165/70 (101) Pulse Ox 98 99 100 O2 Delivery Ventilator Ventilator Mechanical Ventilator Ventilator O2 Flow Rate 40.0 40.0 40.0 11/02/18 11/02/18 11/02/18 11/02/18 20:10 20:25 20:26 21:00 Pulse 119 92 Resp 38 B/P (MAP) 165/70 92/47 (62) Pulse Ox 99 99 O2 Delivery Ventilator Ventilator Ventilator O2 Flow Rate 40.0 11/02/18 11/02/18 11/02/18 11/02/18 21:36 22:00 23:00 23:21 Pulse 82 80 Resp 18 B/P (MAP) 110/57 (74) 134/57 (82) Pulse Ox 99 100 98 98 O2 Delivery Ventilator Ventilator Ventilator Ventilator O2 Flow Rate 40.0 40.0 11/02/18 11/03/18 11/03/18 11/03/18 23:59 00:00 01:00 01:36 Temp 99.1 99.1 Pulse 84 74 B/P (MAP) 140/59 (86) 107/51 (69) Pulse Ox 97 99 98 O2 Delivery Ventilator Mechanical Ventilator Ventilator Ventilator O2 Flow Rate 40.0 40.0 11/03/18 11/03/18 11/03/18 11/03/18 02:00 03:00 03:25 04:00 Pulse 80 74 B/P (MAP) 94/65 (75) 104/50 (68) Pulse Ox 99 98 98 O2 Delivery Ventilator Ventilator Ventilator Mechanical Ventilator O2 Flow Rate 40.0 40.0 11/03/18 11/03/18 11/03/18 11/03/18 04:00 04:03 05:00 05:36 Temp 98.8 98.8 Pulse 100 92 Resp 22 B/P (MAP) 151/71 (97) 155/63 (93) Pulse Ox 98 98 99 98 O2 Delivery Ventilator Ventilator Ventilator Ventilator O2 Flow Rate 40.0 40.0 11/03/18 11/03/18 11/03/18 11/03/18 06:00 07:00 08:00 08:00 Temp 98.0 98.0 Pulse 80 86 74 Resp 13 14 B/P (MAP) 139/64 (89) 150/65 (93) 132/73 (92) Pulse Ox 100 100 99 O2 Delivery Ventilator Ventilator Mechanical Ventilator Ventilator O2 Flow Rate 40.0 11/03/18 11/03/18 11/03/18 11/03/18 08:05 09:00 09:26 10:00 Pulse 78 81 79 Resp 17 17 B/P (MAP) 101/64 (76) 123/64 85/51 (62) Pulse Ox 99 100 100 O2 Delivery Ventilator Ventilator Ventilator 11/03/18 11/03/18 11/03/18 11/03/18 10:28 11:00 11:19 11:45 Pulse 78 Resp 17 B/P (MAP) 100/50 (67) Pulse Ox 100 100 98 O2 Delivery Ventilator Ventilator Ventilator Ventilator 11/03/18 11/03/18 11/03/18 11/03/18 12:00 12:00 13:00 14:29 Temp 98.4 98.4 Pulse 82 77 Resp 18 20 B/P (MAP) 145/95 (112) 99/48 (65) Pulse Ox 100 97 100 O2 Delivery Mechanical Ventilator Ventilator Ventilator Ventilator Intake and Output 11/02/18 11/02/18 11/03/18 14:59 22:59 06:59 Intake Total 1205.5 ml 2676 ml Output Total 405 ml 626 ml 435 ml Balance -405 ml 579.5 ml 2241 ml MIKO JEFFERSON MD Nov 03, 2018 15:56
[2018-11-03] MEDS: POTASSIUM CHLORIDE 20 MEQ/15 ML ORAL LIQUID. PEG SCH (16:15)
[2018-11-03] MEDS: diphenhydrAMINE 50 MG/ML VIAL IVP PRN (19:47)
[2018-11-03] MEDS: LORazepam 1 MG TABLET PO PRN (19:48)
[2018-11-03] MEDS: HEPARIN 25,000UTS/500ML PREMIX 500 ML IV PRN (19:49)
[2018-11-03] MEDS: LISINOPRIL 5 MG TABLET. PO SCH (21:03)
[2018-11-03] MEDS: LORazepam 1 MG TABLET PO SCH (21:06)
[2018-11-03] MEDS: INSULIN GLARGINE 300 UNITS/3 ML INSULN.PEN. SQ SCH (21:09)
[2018-11-04] VITALS (24 sets, daily range): BP systolic 83–176; BP diastolic 43–91
[2018-11-04] MEDS: MEROPENEM 500 MG in IV NORMAL SALINE 50ML 50 ML IV SCH ×4 (01:24→17:49)
[2018-11-04] MEDS: VANCOMYCIN 1.25 GM in IV NORMAL SALINE 250ML 250 ML IV SCH (01:56)
[2018-11-04 02:12] LABS: VANC TR 23.9 mcg/mL (10.0-20.0)
[2018-11-04] MEDS: HALOPERIDOL LACTATE 5 MG/ML VIAL. IVP PRN ×2 (02:45→21:42)
[2018-11-04] MEDS: HYDROcodone/APAP 5/325MG 1 TAB TABLET PO PRN ×3 (02:46→16:29)
[2018-11-04] MEDS: diphenhydrAMINE 50 MG/ML VIAL IVP PRN ×2 (02:46→21:42)
[2018-11-04] MEDS: LORazepam 1 MG TABLET PO PRN (02:46)
[2018-11-04] MEDS: VANCOMYCIN PER PHARMACY MC PRN ×2 (04:53→16:14)
--- NOTE | 2018-11-04 04:53 | NUR ---
Pharmacy Vancomycin Dosing Note S:Consulted to monitor and dose vancomycin started 11/02/18. O:JOSLYN SOTELO is a 78 year old M with Bacteremia . Height: 5 feet, 8 inches Weight: 93.423221 kg [place] Body Weight: 68.40 Adjusted Body Weight: 80.96 Dosing Weight: Actual Other Antibiotics: Merrem 500mg IV Q6h LABS: Last BUN: 30 Last Creatinine: 1.1 Creatinine Clearance: 72 mL/min Last WBC: 13 Last Procalcitonin: Tmax (past 24 hours): 99.3 Microbiology: SPUTUM: MANY GNR BLOOD: GRAM POSITIVE COCCI IN PAIRS AND CHAINS, SUGGESTIVE OF STREP, IN 2 OF 4 BOTTLES, TWO SETS DRAWN I/O: 2401/2310 Drug Levels: Last Trough level: 23.9 on 11/04/18 at 0030 Last dose given 11/02/18 at 1326 Vancomycin Dosing: Loading Dose: 2000 mg x1 Dosing Weight: Actual Target Trough: 15-20 A: Based on: TROUGH P: 1. Begin Vancomycin 1250 mg IV q18h 2. Follow up Trough level on 11/05/18 at 1330 3. Pharmacy will continue to monitor, follow and adjust therapy as needed. KATHIE CYR RPH, 11/04/18 0454 Signed: 11/04/18 at 0454 by KATHIE CYR RPH PHA
--- NOTE | 2018-11-04 06:13 | PDOC ---
PULMONARY PROGRESS NOTES Subjective on vent, trach, alert, no pain, sob, small trach secretion Vitals Vital Signs Date Time Temp Pulse Resp B/P (MAP) Pulse Ox O2 Delivery O2 Flow Rate FiO2 11/04/18 06:00 74 19 113/65 (81) 99 Ventilator 11/04/18 04:00 97.4 97.4 11/04/18 02:46 40.0 Comments ros as mentioned as above discussed w rn, other sys otherwise neg on vent General: Alert HEENT: Other (nc at perrl nose throat clear neck trach site ok no lad no thyromegaly) Lungs: Crackles Cardiovascular: S1, S2 Abdomen: Soft, Non-tender, Other (no mass) Neuro Exam: Alert Extremities: Other (edema) Skin: Warm Labs Laboratory Tests Test 11/03/18 06:00 11/03/18 08:00 11/03/18 16:00 11/03/18 20:55 White Blood Count 13.0 x10^3/uL (4.0-11.0) Red Blood Count 2.76 x10^6/uL (4.30-5.70) Hemoglobin 8.3 g/dL (13.0-17.5) Hematocrit 25.5 % (39.0-53.0) Mean Corpuscular Volume 92 fL (79-100) Mean Corpuscular Hemoglobin 30 pg (25-35) Mean Corpuscular Hemoglobin Concent 33 g/dL (31-37) Red Cell Distribution Width 16.8 % (11.5-14.5) Platelet Count 256 x10^3/uL (140-400) Neutrophils (%) (Auto) 85 % (31-73) Lymphocytes (%) (Auto) 7 % (24-48) Monocytes (%) (Auto) 6 % (0-9) Eosinophils (%) (Auto) 1 % (0-3) Basophils (%) (Auto) 0 % (0-3) Neutrophils # (Auto) 11.1 x10^3uL (1.8-7.7) Lymphocytes # (Auto) 0.9 x10^3/uL (1.0-4.8) Monocytes # (Auto) 0.8 x10^3/uL (0.0-1.1) Eosinophils # (Auto) 0.2 x10^3/uL (0.0-0.7) Basophils # (Auto) 0.0 x10^3/uL (0.0-0.2) Heparin Anti-Xa Act, Unfractionated 0.24 IU/mL (0.30-0.70) 0.72 IU/mL (0.30-0.70) 0.36 IU/mL (0.30-0.70) Sodium Level 140 mmol/L (136-145) Potassium Level 3.2 mmol/L (3.5-5.1) Chloride Level 98 mmol/L (98-107) Carbon Dioxide Level 39 mmol/L (21-32) Anion Gap 3 (6-14) Blood Urea Nitrogen 30 mg/dL (8-26) Creatinine 1.1 mg/dL (0.7-1.3) Estimated GFR (Cockcroft-Gault) 65.1 Glucose Level 158 mg/dL (70-99) Calcium Level 8.9 mg/dL (8.5-10.1) Magnesium Level 2.1 mg/dL (1.8-2.4) O2 Saturation 97 % (92-99) Arterial Blood pH 7.42 (7.35-7.45) Arterial Blood pCO2 at Patient Temp 56 mmHg (35-46) Arterial Blood pO2 at Patient Temp 99 mmHg (65-108) Arterial Blood HCO3 36 mmol/L (21-28) Arterial Blood Base Excess 10 mmol/L (-3-3) FiO2 35 Test 11/04/18 01:30 Vancomycin Level Trough 23.9 mcg/mL (10.0-20.0) Vancomycin Last Dose Date Vancomycin Last Dose Time 1300 Laboratory Tests Test 11/03/18 08:00 11/03/18 16:00 11/03/18 20:55 11/04/18 01:30 O2 Saturation 97 % (92-99) Arterial Blood pH 7.42 (7.35-7.45) Arterial Blood pCO2 at Patient Temp 56 mmHg (35-46) Arterial Blood pO2 at Patient Temp 99 mmHg (65-108) Arterial Blood HCO3 36 mmol/L (21-28) Arterial Blood Base Excess 10 mmol/L (-3-3) FiO2 35 Heparin Anti-Xa Act, Unfractionated 0.72 IU/mL (0.30-0.70) 0.36 IU/mL (0.30-0.70) Vancomycin Level Trough 23.9 mcg/mL (10.0-20.0) Vancomycin Last Dose Date Vancomycin Last Dose Time 1300 Medications Active Scripts Medications Dose Route/Sig Max Daily Dose Days Date Category Pepcid (Famotidine) 20 Mg Tablet 20 Mg PO BID 11/01/18 Reported Albuterol Sulfate Neb Soln (Albuterol Sulfate) 2.5 Mg/3 Ml Vial.neb 2.5 Mg NEB [id number] 11/01/18 Reported Hydralazine Hcl 10 Mg Tablet 10 Mg IV PRN Q4HRS PRN 11/01/18 Reported Amlodipine Besylate 5 Mg Tablet 5 Mg PO DAILY 11/01/18 Reported Miralax (Polyethylene Glycol 3350) 17 Gm Powd.pack 1 Packet PO DAILY 11/01/18 Reported Zofran (Ondansetron Hcl) 4 Mg Tablet 1 Tab IV Q6HRS 11/01/18 Reported Reglan (Metoclopramide Hcl) 10 Mg Tablet 10 Mg PO QIDACHS 11/01/18 Reported Lorazepam 1 Mg Tablet 1 Tab PO PRN Q6HRS PRN 11/01/18 Reported Lantus (Insulin Glargine,Hum.rec.anlog) 100 Unit/1 Ml Vial 10 Unit SQ HS 11/01/18 Reported Hydrocodone-Acetamin 5-325 mg (Hydrocodone/Acetaminophen) 1 Each Tablet 1 Each PO PRN Q6HRS PRN 11/01/18 Reported Lasix (Furosemide) 40 Mg Tablet 40 Mg IV DAILY PRN 11/01/18 Reported Fluconazole 100 Mg Tablet 1 Tab PO DAILY 11/01/18 Reported Pulmicort (Budesonide) 0.5 Mg/2 Ml Ampul.neb 1 Vial NEB BID 11/01/18 Reported Bisacodyl 10 Mg Supp.rect 10 Mg RC PRN DAILY PRN 11/01/18 Reported Proair Hfa (Albuterol Sulfate) 8.5 Gm Hfa.aer.ad 1 Puff INH PRN Q6HRS PRN 10/07/18 Reported Oxazepam 30 Mg Capsule 30 Mg PO QHS 10/07/[address] reviewed 1. One tiny filling defect in a right lower lobe pulmonary artery is consistent with a tiny pulmonary embolus. 2. Moderate to severe centrilobular emphysema. Patchy mild infiltrates in the bases may reflect atypical pneumonia or mild pulmonary edema. Impression . IMPRESSION: 1. [id number] hypercapnic hypoxemic respiratory failure. 2. Acute pulmonary embolism. 3. Acute exacerbation of chronic obstructive pulmonary disease. 4. History of alcoholism. 5. History of tobacco use. Plan . cont vent support, setting reviewed, start weaning as tolerated ok to transfer to [facility] nutritional support ct reviewed will continue support anticoagulation case discussed with ERIN RIBEIRO MD Nov 04, 2018 06:13
[2018-11-04] MEDS: CLOTRIMAZOLE 10 MG TROCHE. MM SCH ×5 (06:15→21:41)
[2018-11-04 06:48] LABS: BASO % 0 % (0-3); EOS # 0.2 x10^3/uL (0.0-0.7); EOS % 2 % (0-3); HEMOGLOBIN 8.1 g/dL (13.0-17.5); LYMPH % 9 % (24-48); MEAN CORPUSCULAR HEMOGLOBIN 30 pg (25-35); MEAN CORPUSCULAR HGB CONC 32 g/dL (31-37); MEAN CORPUSCULAR VOLUME 93 fL (79-100); MONO # 0.6 x10^3/uL (0.0-1.1); MONO % 5 % (0-9); NEUT # 9.9 x10^3uL (1.8-7.7); NEUT % 85 % (31-73); PLATELET COUNT 253 x10^3/uL (140-400); RED CELL DISTRIBUTION WIDTH 16.6 % (11.5-14.5); WHITE BLOOD COUNT 11.8 x10^3/uL (4.0-11.0)
[2018-11-04 06:56] LABS: CALCIUM 8.8 mg/dL (8.5-10.1); CREATININE 1.1 mg/dL (0.7-1.3); GFR 65.1; POTASSIUM 3.8 mmol/L (3.5-5.1)
[2018-11-04] MEDS: HEPARIN for IV BOLUS 10,000 UNIT/10 ML VIAL. IV PRN (07:41)
[2018-11-04] MEDS: POTASSIUM CHLORIDE 20 MEQ/15 ML ORAL LIQUID. PEG SCH (08:59)
[2018-11-04] MEDS: FAMOTIDINE 20 MG TABLET. PO SCH ×2 (08:59→21:41)
[2018-11-04] MEDS: amLODIPine BESYLATE 5 MG TABLET PO SCH (08:59)
[2018-11-04] MEDS: FUROSEMIDE 40 MG TABLET. PO SCH (08:59)
[2018-11-04] MEDS: POLYETHYLENE GLYCOL 3350 17 GM PACKET. PO SCH (09:00)
[2018-11-04] MEDS: METOCLOPRAMIDE 10 MG TABLET. PO SCH ×4 (09:00→21:42)
[2018-11-04] MEDS ORDERED: APIXABAN 5 MG TABLET. PO SCH (09:00)
[2018-11-04] MEDS: BUDESONIDE 0.5 MG/2 ML NEBU. NEB SCH ×2 (09:01→20:08)
[2018-11-04] MEDS: INSULIN LISPRO 300 UNITS/3 ML INSULN.PEN. SQ SCH ×4 (09:01→22:06)
[2018-11-04] MEDS: ALBUTEROL SULFATE 2.5 MG/3 ML NEBU. NEB SCH ×4 (09:01→20:08)
[2018-11-04 09:06] LABS: BASE EXCESS ABG 9 mmol/L (-3-3); HCO3 ABG 36 mmol/L (21-28); PO2 ABG 85 mmHg (65-108); SAT O2 ABG 96 % (92-99)
--- NOTE | 2018-11-04 09:39 | PDOC ---
Infectious Disease Note Subjective Subjective Intubated via trach, [id number]% Recent dose Haldol No fevers last 24 hours Tube feedings via PEG 65 ml/hr ROS ROS unobtainable Vital Sign Vital Signs Vital Signs Date Time Temp Pulse Resp B/P (MAP) Pulse Ox O2 Delivery O2 Flow Rate FiO2 11/04/18 09:00 87 20 174/72 (106) 100 Ventilator 11/04/18 08:00 98.3 98.3 11/04/18 03:46 40.0 Physical Exam PHYSICAL EXAM GENERAL: Opens eyes to name HEENT: Pupils equal, oral cavity pink NECK: Trach/vent LUNGS: Mechanical breath sounds CARDIOVASCULAR: S1, S2 irregular ABDOMEN: Soft, nontender, nondistended. PEG : Jeffers in place EXTREMITIES: No clubbing, cyanosis. Minimal edema. SCDs NEUROLOGIC: Opens eyes to name and mouth when asked, sleepy RUE-PICC without signs of any complications Labs Lab Laboratory Tests Test 11/03/18 16:00 11/03/18 20:55 11/04/18 01:30 11/04/18 06:00 Heparin Anti-Xa Act, Unfractionated 0.72 IU/mL (0.30-0.70) 0.36 IU/mL (0.30-0.70) 0.27 IU/mL (0.30-0.70) Vancomycin Level Trough 23.9 mcg/mL (10.0-20.0) Vancomycin Last Dose Date Vancomycin Last Dose Time 1300 White Blood Count 11.8 x10^3/uL (4.0-11.0) Red Blood Count 2.70 x10^6/uL (4.30-5.70) Hemoglobin 8.1 g/dL (13.0-17.5) Hematocrit 25.0 % (39.0-53.0) Mean Corpuscular Volume 93 fL (79-100) Mean Corpuscular Hemoglobin 30 pg (25-35) Mean Corpuscular Hemoglobin Concent 32 g/dL (31-37) Red Cell Distribution Width 16.6 % (11.5-14.5) Platelet Count 253 x10^3/uL (140-400) Neutrophils (%) (Auto) 85 % (31-73) Lymphocytes (%) (Auto) 9 % (24-48) Monocytes (%) (Auto) 5 % (0-9) Eosinophils (%) (Auto) 2 % (0-3) Basophils (%) (Auto) 0 % (0-3) Neutrophils # (Auto) 9.9 x10^3uL (1.8-7.7) Lymphocytes # (Auto) 1.0 x10^3/uL (1.0-4.8) Monocytes # (Auto) 0.6 x10^3/uL (0.0-1.1) Eosinophils # (Auto) 0.2 x10^3/uL (0.0-0.7) Basophils # (Auto) 0.0 x10^3/uL (0.0-0.2) Sodium Level 137 mmol/L (136-145) Potassium Level 3.8 mmol/L (3.5-5.1) Chloride Level 97 mmol/L (98-107) Carbon Dioxide Level 36 mmol/L (21-32) Anion Gap 4 (6-14) Blood Urea Nitrogen 31 mg/dL (8-26) Creatinine 1.1 mg/dL (0.7-1.3) Estimated GFR (Cockcroft-Gault) 65.1 Glucose Level 261 mg/dL (70-99) Calcium Level 8.8 mg/dL (8.5-10.1) Chest CTA 1. One tiny filling defect in a right lower lobe pulmonary artery is consistent with a tiny pulmonary embolus. 2. Moderate to severe centrilobular emphysema. Patchy mild infiltrates in the bases may reflect atypical pneumonia or mild pulmonary edema. Micro 6/5. BLOOD CULTURE Final GRAM POSITIVE COCCI IN PAIRS AND CHAINS, SUGGESTIVE OF STREP, IN 2 OF 4 BOTTLES, TWO SETS DRAWN. ONE OF TWO SETS ARE POSITIVE. 6/5. SPUTUM CULT RES 1 Final Pseudomonas aeruginosa 6/5. URINE CULTURE RES 1 Final Comment Pseudomonas aeruginosa Greater than 100,000 colony forming units per mL Antibiotic RSLT#1 Amikacin S<=2 Cefepime S =2 Ceftazidime S =4 Ciprofloxacin S<=0.25 Gentamicin S<=1 Imipenem S =2 Levofloxacin S =1 Meropenem S =0.5 Piperacillin S =8 Ticarcillin S =32 Tobramycin S<=1 Objective Assessment Sepsis with GPC suggestive of strep (2 of 4 bottles) POA 6/5, could be Enterococcus vs strep PSAE sputum 6/5 ? true infection vs colonization UTI w/ growth PSAE (VIVAR-S) Leukocytosis - bands better H/o Bradycardia Azzic-wm-vzwmkte hypercapnic hypoxemic respiratory failure. Acute pulmonary embolism. 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 History of alcoholism. Plan Plan of Care Vanc (11/02) meropenem (11/02) Trough 23.9 f/u cultures Monitor for abx toxicities/side effects May need PICC change depending on Cults May need goals of therapy eval D/w nursing Attending Co-Sign The patient was seen and interviewed as well as examined at the bedside. The chart was reviewed. The case was discussed. Agree with the plan of care. ALEXA ZARAGOZA APRN Nov 04, 2018 09:39 JEANNE WRAY MD Nov 04, 2018 13:04
--- NOTE | 2018-11-04 13:32 | PDOC ---
PROGRESS NOTES Chief Complaint Chief Complaint acute on chronic hypoxia, with hypercarbia and COPD exacerbation, was still weaning vent at LTAC sepsis, + blood cultures possible mucus plug Acute pulmonary embolism, on heparin gtt History of Present Illness History of Present Illness cont care in ICU - he is more alert and responsive now cont current broad abx, cont the supportive care may be able to return to LTAC Vitals Vitals Vital Signs Date Time Temp Pulse Resp B/P (MAP) Pulse Ox O2 Delivery O2 Flow Rate FiO2 11/04/18 10:00 68 17 83/43 (56) 99 Ventilator 11/04/18 08:00 98.3 98.3 11/04/18 03:46 40.0 Physical Exam Physical Exam GENERAL: Opens eyes to name HEENT: Pupils equal, oral cavity pink NECK: Trach/vent LUNGS: Mechanical breath sounds CARDIOVASCULAR: S1, S2 irregular ABDOMEN: Soft, nontender, nondistended. PEG : Jeffers in place EXTREMITIES: No clubbing, cyanosis. Minimal edema. SCDs NEUROLOGIC: Opens eyes to name and mouth when asked, sleepy RUE-PICC without signs of any complications General: No acute distress, Other (lethargic) Heart: Regular rate (Sinus tach), No murmurs Lungs: Crackles Abdomen: Soft, Other (obese; PEG) Extremities: Other (2+ bilateral LE pitting edema) Skin: No significant lesion Labs LABS Laboratory Tests Test 11/03/18 16:00 11/03/18 20:55 11/04/18 01:30 11/04/18 06:00 Heparin Anti-Xa Act, Unfractionated 0.72 IU/mL (0.30-0.70) 0.36 IU/mL (0.30-0.70) 0.27 IU/mL (0.30-0.70) Vancomycin Level Trough 23.9 mcg/mL (10.0-20.0) Vancomycin Last Dose Date Vancomycin Last Dose Time 1300 White Blood Count 11.8 x10^3/uL (4.0-11.0) Red Blood Count 2.70 x10^6/uL (4.30-5.70) Hemoglobin 8.1 g/dL (13.0-17.5) Hematocrit 25.0 % (39.0-53.0) Mean Corpuscular Volume 93 fL (79-100) Mean Corpuscular Hemoglobin 30 pg (25-35) Mean Corpuscular Hemoglobin Concent 32 g/dL (31-37) Red Cell Distribution Width 16.6 % (11.5-14.5) Platelet Count 253 x10^3/uL (140-400) Neutrophils (%) (Auto) 85 % (31-73) Lymphocytes (%) (Auto) 9 % (24-48) Monocytes (%) (Auto) 5 % (0-9) Eosinophils (%) (Auto) 2 % (0-3) Basophils (%) (Auto) 0 % (0-3) Neutrophils # (Auto) 9.9 x10^3uL (1.8-7.7) Lymphocytes # (Auto) 1.0 x10^3/uL (1.0-4.8) Monocytes # (Auto) 0.6 x10^3/uL (0.0-1.1) Eosinophils # (Auto) 0.2 x10^3/uL (0.0-0.7) Basophils # (Auto) 0.0 x10^3/uL (0.0-0.2) Sodium Level 137 mmol/L (136-145) Potassium Level 3.8 mmol/L (3.5-5.1) Chloride Level 97 mmol/L (98-107) Carbon Dioxide Level 36 mmol/L (21-32) Anion Gap 4 (6-14) Blood Urea Nitrogen 31 mg/dL (8-26) Creatinine 1.1 mg/dL (0.7-1.3) Estimated GFR (Cockcroft-Gault) 65.1 Glucose Level 261 mg/dL (70-99) Calcium Level 8.8 mg/dL (8.5-10.1) Assessment and Plan Assessmemt and Plan Problems Medical Problems: (1) Dyspnea Status: Acute (2) Respiratory failure Status: Acute (3) Upper leg DVT (deep venous thromboembolism), acute Status: Acute Comment Review of Relevant I have reviewed the following items akbar (where applicable) has been applied. Labs Laboratory Tests Test 11/03/18 06:00 11/03/18 08:00 11/03/18 16:00 11/03/18 20:55 White Blood Count 13.0 x10^3/uL (4.0-11.0) Red Blood Count 2.76 x10^6/uL (4.30-5.70) Hemoglobin 8.3 g/dL (13.0-17.5) Hematocrit 25.5 % (39.0-53.0) Mean Corpuscular Volume 92 fL (79-100) Mean Corpuscular Hemoglobin 30 pg (25-35) Mean Corpuscular Hemoglobin Concent 33 g/dL (31-37) Red Cell Distribution Width 16.8 % (11.5-14.5) Platelet Count 256 x10^3/uL (140-400) Neutrophils (%) (Auto) 85 % (31-73) Lymphocytes (%) (Auto) 7 % (24-48) Monocytes (%) (Auto) 6 % (0-9) Eosinophils (%) (Auto) 1 % (0-3) Basophils (%) (Auto) 0 % (0-3) Neutrophils # (Auto) 11.1 x10^3uL (1.8-7.7) Lymphocytes # (Auto) 0.9 x10^3/uL (1.0-4.8) Monocytes # (Auto) 0.8 x10^3/uL (0.0-1.1) Eosinophils # (Auto) 0.2 x10^3/uL (0.0-0.7) Basophils # (Auto) 0.0 x10^3/uL (0.0-0.2) Heparin Anti-Xa Act, Unfractionated 0.24 IU/mL (0.30-0.70) 0.72 IU/mL (0.30-0.70) 0.36 IU/mL (0.30-0.70) Sodium Level 140 mmol/L (136-145) Potassium Level 3.2 mmol/L (3.5-5.1) Chloride Level 98 mmol/L (98-107) Carbon Dioxide Level 39 mmol/L (21-32) Anion Gap 3 (6-14) Blood Urea Nitrogen 30 mg/dL (8-26) Creatinine 1.1 mg/dL (0.7-1.3) Estimated GFR (Cockcroft-Gault) 65.1 Glucose Level 158 mg/dL (70-99) Calcium Level 8.9 mg/dL (8.5-10.1) Magnesium Level 2.1 mg/dL (1.8-2.4) O2 Saturation 97 % (92-99) Arterial Blood pH 7.42 (7.35-7.45) Arterial Blood pCO2 at Patient Temp 56 mmHg (35-46) Arterial Blood pO2 at Patient Temp 99 mmHg (65-108) Arterial Blood HCO3 36 mmol/L (21-28) Arterial Blood Base Excess 10 mmol/L (-3-3) FiO2 35 Test 11/04/18 01:30 11/04/18 06:00 Vancomycin Level Trough 23.9 mcg/mL (10.0-20.0) Vancomycin Last Dose Date Vancomycin Last Dose Time 1300 White Blood Count 11.8 x10^3/uL (4.0-11.0) Red Blood Count 2.70 x10^6/uL (4.30-5.70) Hemoglobin 8.1 g/dL (13.0-17.5) Hematocrit 25.0 % (39.0-53.0) Mean Corpuscular Volume 93 fL (79-100) Mean Corpuscular Hemoglobin 30 pg (25-35) Mean Corpuscular Hemoglobin Concent 32 g/dL (31-37) Red Cell Distribution Width 16.6 % (11.5-14.5) Platelet Count 253 x10^3/uL (140-400) Neutrophils (%) (Auto) 85 % (31-73) Lymphocytes (%) (Auto) 9 % (24-48) Monocytes (%) (Auto) 5 % (0-9) Eosinophils (%) (Auto) 2 % (0-3) Basophils (%) (Auto) 0 % (0-3) Neutrophils # (Auto) 9.9 x10^3uL (1.8-7.7) Lymphocytes # (Auto) 1.0 x10^3/uL (1.0-4.8) Monocytes # (Auto) 0.6 x10^3/uL (0.0-1.1) Eosinophils # (Auto) 0.2 x10^3/uL (0.0-0.7) Basophils # (Auto) 0.0 x10^3/uL (0.0-0.2) Heparin Anti-Xa Act, Unfractionated 0.27 IU/mL (0.30-0.70) Sodium Level 137 mmol/L (136-145) Potassium Level 3.8 mmol/L (3.5-5.1) Chloride Level 97 mmol/L (98-107) Carbon Dioxide Level 36 mmol/L (21-32) Anion Gap 4 (6-14) Blood Urea Nitrogen 31 mg/dL (8-26) Creatinine 1.1 mg/dL (0.7-1.3) Estimated GFR (Cockcroft-Gault) 65.1 Glucose Level 261 mg/dL (70-99) Calcium Level 8.8 mg/dL (8.5-10.1) Laboratory Tests Test 11/03/18 16:00 11/03/18 20:55 11/04/18 01:30 11/04/18 06:00 Heparin Anti-Xa Act, Unfractionated 0.72 IU/mL (0.30-0.70) 0.36 IU/mL (0.30-0.70) 0.27 IU/mL (0.30-0.70) Vancomycin Level Trough 23.9 mcg/mL (10.0-20.0) Vancomycin Last Dose Date Vancomycin Last Dose Time 1300 White Blood Count 11.8 x10^3/uL (4.0-11.0) Red Blood Count 2.70 x10^6/uL (4.30-5.70) Hemoglobin 8.1 g/dL (13.0-17.5) Hematocrit 25.0 % (39.0-53.0) Mean Corpuscular Volume 93 fL (79-100) Mean Corpuscular Hemoglobin 30 pg (25-35) Mean Corpuscular Hemoglobin Concent 32 g/dL (31-37) Red Cell Distribution Width 16.6 % (11.5-14.5) Platelet Count 253 x10^3/uL (140-400) Neutrophils (%) (Auto) 85 % (31-73) Lymphocytes (%) (Auto) 9 % (24-48) Monocytes (%) (Auto) 5 % (0-9) Eosinophils (%) (Auto) 2 % (0-3) Basophils (%) (Auto) 0 % (0-3) Neutrophils # (Auto) 9.9 x10^3uL (1.8-7.7) Lymphocytes # (Auto) 1.0 x10^3/uL (1.0-4.8) Monocytes # (Auto) 0.6 x10^3/uL (0.0-1.1) Eosinophils # (Auto) 0.2 x10^3/uL (0.0-0.7) Basophils # (Auto) 0.0 x10^3/uL (0.0-0.2) Sodium Level 137 mmol/L (136-145) Potassium Level 3.8 mmol/L (3.5-5.1) Chloride Level 97 mmol/L (98-107) Carbon Dioxide Level 36 mmol/L (21-32) Anion Gap 4 (6-14) Blood Urea Nitrogen 31 mg/dL (8-26) Creatinine 1.1 mg/dL (0.7-1.3) Estimated GFR (Cockcroft-Gault) 65.1 Glucose Level 261 mg/dL (70-99) Calcium Level 8.8 mg/dL (8.5-10.1) Microbiology 11/01/18 Blood Culture - Preliminary, Resulted NO GROWTH AFTER 3 DAYS 11/01/18 - Final, Resulted 11/01/18 - Final, Resulted 11/01/18 - Final, Resulted 11/01/18 Gram Stain Evaluation - Final, Resulted 11/01/18 Sputum Culture - Preliminary, Resulted 11/01/18 Sputum Result 1 - Final, Resulted 11/01/18 Urine Culture - Final, Complete 11/01/18 Urine Culture Result 1 (ELEN) - Final, Complete 11/01/18 Antimicrobic Susceptibility - Final, Complete Medications Current Medications Albuterol/ Ipratropium (Duoneb) 3 ml 1X ONCE NEB Last administered on 11/01/18at 06:10; Start 11/01/18 at 06:30; Stop 11/01/18 at 06:31; Status DC Albuterol/ Ipratropium (Duoneb) 3 ml 1X ONCE NEB Last administered on 11/01/18at 06:10; Start 11/01/18 at 06:30; Stop 11/01/18 at 06:31; Status DC Sodium Chloride 1,000 ml @ 1,000 mls/hr Q1H IV Last administered on 11/01/18at 06:40; Start 11/01/18 at 06:30; Stop 11/01/18 at 07:29; Status DC Iohexol (Omnipaque 350 Mg/ml) 90 ml 1X ONCE IV Last administered on 11/01/18at 07:44; Start 11/01/18 at 07:15; Stop 11/01/18 at 07:16; Status DC Info (CONTRAST GIVEN -- Rx MONITORING) 1 each PRN DAILY PRN MC SEE COMMENTS; Start 11/01/18 at 07:15; Stop 11/03/18 at 07:14; Status DC Heparin Sodium (Porcine) (Heparin Sodium) 8,000 unit 1X ONCE IV Last administered on 11/01/18 08:17; Start 11/01/18 at 08:00; Stop 11/01/18 at 08:01; Status DC Heparin Sodium/ Dextrose 500 ml @ 0 mls/hr CONT PRN IV SEE I/O RECORD Last administered on 11/03/18 19:49; Start 11/01/18 at 08:00; Stop 11/04/18 at 08:37; Status DC Albuterol Sulfate (Ventolin Neb Soln) 2.5 mg RTQID NEB Last administered on 11/04/18at 12:15; Start 11/01/18 at 12:00 Albuterol Sulfate (Ventolin Neb Soln) 2.5 mg PRN Q6HRS PRN INH SHORTNESS OF BREATH; Start 11/01/18 at 10:15 Amlodipine Besylate (Norvasc) 5 mg DAILY PO Last administered on 11/04/18 08:59; Start 11/01/18 at 11:00 Budesonide (Pulmicort) 0.5 mg RTBID NEB Last administered on 11/04/18 09:01; Start 11/01/18 at 11:00 Famotidine (Pepcid) 20 mg BID PO Last administered on 11/04/18 08:59; Start 11/01/18 at 11:00 Furosemide (Lasix) 40 mg PRN DAILY PRN PO FLUID RETENTION; Start 11/01/18 at 10:15; Stop 11/01/18 at 14:02; Status DC Acetaminophen/ Hydrocodone Bitart (Lortab 5/325) 1 tab PRN Q6HRS PRN PO PAIN Last administered on 11/04/18 08:59; Start 11/01/18 at 10:15 Lorazepam (Ativan) 1 mg PRN Q6HRS PRN PO ANXIETY / AGITATION Last administered on 11/04/18at 02:46; Start 11/01/18 at 10:15 Metoclopramide HCl (Reglan) 10 mg QIDACHS PO Last administered on 11/04/18 09:00; Start 11/01/18 at 11:30 Bisacodyl (Dulcolax Supp) 10 mg PRN DAILY PRN ME CONSTIPATION; Start 11/01/18 at 10:30 Hydralazine HCl (Apresoline Inj) 10 mg PRN Q4HRS PRN IVP HYPERTENSION Last administered on 11/02/18 15:45; Start 11/01/18 at 10:30 Insulin Glargine (Lantus) 10 units QHS SQ Last administered on 11/03/18 21:09; Start 11/01/18 at 21:00 Ondansetron HCl (Zofran) 4 mg PRN Q6HRS PRN IV NAUSEA/VOMITING; Start 11/01/18 at 10:30 Lorazepam (Ativan) 2 mg QHS PO Last administered on 11/03/18 21:06; Start 11/01/18 at 21:00 Polyethylene Glycol (miraLAX PACKET) 17 gm DAILY PO Last administered on 11/03/18 09:25; Start 11/01/18 at 11:00 Info (Anti-Coagulation Monitoring By Pharmacy) 1 each PRN DAILY PRN MC SEE COMMENTS Last administered on 11/02/18 10:56; Start 11/01/18 at 10:45 Insulin Human Lispro (HumaLOG) 0-5 UNITS TIDWMEALS SQ Last administered on 11/02/18 18:40; Start 11/01/18 at 12:00; Stop 11/02/18 at 21:37; Status DC Dextrose (Dextrose 50%-Water Syringe) 12.5 gm PRN Q15MIN PRN IV SEE COMMENTS; Start 11/01/18 at 10:15 Furosemide (Lasix) 40 mg DAILY PO Last administered on 11/04/18 08:59; Start 11/01/18 at 14:15 Diphenhydramine HCl (Benadryl) 25 mg PRN Q6HRS PRN IVP ITCHING Last administered on 11/04/18 02:46; Start 11/01/18 at 19:45 Lorazepam (Ativan Inj) 0.5 mg 1X ONCE IV Last administered on 6/6/19at 10:27; Start 11/02/18 at 10:15; Stop 11/02/18 at 10:16; Status DC Vancomycin HCl (Vanco Per Pharmacy) 1 each PRN DAILY PRN MC SEE COMMENTS Last administered on 11/04/18 04:53; Start 11/02/18 at 12:30 Meropenem 500 mg/ Sodium Chloride 50 ml @ 100 mls/hr Q6HRS IV Last administered on 11/04/18 11:36; Start 11/02/18 at 13:00 Vancomycin HCl 2 gm/Sodium Chloride 500 ml @ 250 mls/hr 1X ONCE IV Last administered on 11/02/18 13:26; Start 11/02/18 at 13:00; Stop 11/02/18 at 14:59; Status DC Lisinopril (Prinivil) 5 mg QHS PO Last administered on 11/03/18 21:03; Start 11/02/18 at 21:00 Haloperidol Lactate (Haldol Inj) 5 mg PRN Q6HRS PRN IVP AGITATION Last administered on 11/04/18 02:45; Start 11/02/18 at 13:15 Vancomycin HCl 1.25 gm/Sodium Chloride 250 ml @ 167 mls/hr Q12H IV Last administered on 11/04/18 01:56; Start 11/03/18 at 01:00; Stop 11/04/18 at 03:47; Status DC Vancomycin HCl (Vancomycin Trough Level) 1 each 1X ONCE MC Last administered on 11/04/18 00:30; Start 11/04/18 at 00:30; Stop 11/04/18 at 00:31; Status DC Clotrimazole (Mycelex) 10 mg 5XDAY MM Last administered on 11/04/18 09:00; Start 11/02/18 at 22:00 Insulin Human Lispro (HumaLOG) 0-5 UNITS QIDACHS SQ Last administered on 11/04/18 11:37; Start 11/02/18 at 21:35 Potassium Chloride/Water 50 ml @ 50 mls/hr Q1H IV Last administered on 11/03/18 09:26; Start 11/03/18 at 08:00; Stop 11/03/18 at 09:59; Status DC Heparin Sodium (Porcine) (Heparin Sodium) 1,400 unit PRN Q6HRS PRN IV FOR UFH LEVEL 0.2 - 0.29 Last administered on 11/04/18at 07:41; Start 11/03/18 at 10:00 Potassium Chloride (KCl Oral Soln) 10 meq DAILY PEG Last administered on 11/04/18at 08:59; Start 11/03/18 at 15:00 Vancomycin HCl 1.25 gm/Sodium Chloride 250 ml @ 167 mls/hr Q18H IV ; Start 11/04/18 at 20:00 Vancomycin HCl (Vancomycin Trough Level) 1 each 1X ONCE MC ; Start 11/05/18 at 13:30; Stop 11/05/18 at 13:31 Apixaban (Eliquis) 5 mg BID PO Last administered on 11/04/18at 09:00; Start 11/04/18 at 09:00 Active Scripts Active Reported Pepcid (Famotidine) 20 Mg Tablet 20 Mg PO BID Albuterol Sulfate Neb Soln (Albuterol Sulfate) 2.5 Mg/3 Ml Vial.neb 2.5 Mg NEB [id number] Hydralazine Hcl 10 Mg Tablet 10 Mg IV PRN Q4HRS PRN Amlodipine Besylate 5 Mg Tablet 5 Mg PO DAILY Miralax (Polyethylene Glycol 3350) 17 Gm Powd.pack 1 Packet PO DAILY Zofran (Ondansetron Hcl) 4 Mg Tablet 1 Tab IV Q6HRS Reglan (Metoclopramide Hcl) 10 Mg Tablet 10 Mg PO QIDACHS Lorazepam 1 Mg Tablet 1 Tab PO PRN Q6HRS PRN Lantus (Insulin Glargine,Hum.rec.anlog) 100 Unit/1 Ml Vial 10 Unit SQ HS Hydrocodone-Acetamin 5-325 mg (Hydrocodone/Acetaminophen) 1 Each Tablet 1 Each PO PRN Q6HRS PRN Lasix (Furosemide) 40 Mg Tablet 40 Mg IV DAILY PRN Fluconazole 100 Mg Tablet 1 Tab PO DAILY Pulmicort (Budesonide) 0.5 Mg/2 Ml Ampul.neb 1 Vial NEB BID Bisacodyl 10 Mg Supp.rect 10 Mg RC PRN DAILY PRN Proair Hfa (Albuterol Sulfate) 8.5 Gm Hfa.aer.ad 1 Puff INH PRN Q6HRS PRN Oxazepam 30 Mg Capsule 30 Mg PO QHS Vitals/I & O Vital Sign - Last 24 Hours 11/03/18 11/03/18 11/03/18 11/03/18 14:00 14:29 15:00 15:54 Pulse 90 102 Resp 33 34 B/P (MAP) 120/49 (72) 149/78 (101) Pulse Ox 97 100 97 98 O2 Delivery Ventilator Ventilator Ventilator Ventilator 11/03/18 11/03/18 11/03/18 11/03/18 16:00 16:00 17:00 17:46 Temp 98.2 98.2 Pulse 102 90 Resp 28 23 B/P (MAP) 137/57 (83) 146/75 (98) Pulse Ox 100 100 100 O2 Delivery Ventilator Mechanical Ventilator Ventilator Ventilator 11/03/18 11/03/18 11/03/18 11/03/18 17:54 18:00 19:00 20:00 Pulse 107 107 Resp 30 30 B/P (MAP) 145/57 (86) 166/71 (102) Pulse Ox 98 95 95 O2 Delivery Ventilator Ventilator Ventilator Mechanical Ventilator 11/03/18 11/03/18 11/03/18 11/03/18 20:00 20:14 21:00 21:03 Temp 98.3 98.3 Pulse 102 99 86 Resp 30 30 B/P (MAP) 173/57 (95) 159/57 (91) 143/60 Pulse Ox 99 98 99 O2 Delivery Ventilator Ventilator Ventilator 11/03/18 11/03/18 11/03/18 11/03/18 22:00 22:10 23:00 23:00 Pulse 80 78 80 Resp 20 20 20 B/P (MAP) 133/56 (81) 98/46 (63) 98/46 (63) Pulse Ox 99 98 99 99 O2 Delivery Ventilator Ventilator Ventilator Ventilator 11/03/18 11/04/18 11/04/18 11/04/18 23:59 00:01 00:05 01:00 Temp 98.6 98.6 Pulse 74 72 Resp 20 18 B/P (MAP) 113/50 (71) 128/64 (85) Pulse Ox 99 98 99 O2 Delivery Mechanical Ventilator Ventilator Ventilator Ventilator 11/04/18 11/04/18 11/04/18 11/04/18 01:22 02:00 02:46 03:00 Pulse 74 74 Resp 19 20 19 B/P (MAP) 140/62 (88) 140/62 (88) Pulse Ox 100 100 100 100 O2 Delivery Ventilator Ventilator Ventilator O2 Flow Rate 40.0 11/04/18 11/04/18 11/04/18 11/04/18 03:46 04:00 04:00 04:07 Temp 97.4 97.4 Pulse 77 Resp 18 19 B/P (MAP) 119/68 (85) Pulse Ox 99 100 O2 Delivery Mechanical Ventilator Ventilator Ventilator O2 Flow Rate 40.0 11/04/18 11/04/18 11/04/18 11/04/18 05:00 06:00 07:00 07:49 Pulse 84 74 88 Resp 18 19 28 B/P (MAP) 93/59 (70) 113/65 (81) 134/63 (86) Pulse Ox 100 99 100 98 O2 Delivery Ventilator Ventilator Ventilator Ventilator 11/04/18 11/04/18 11/04/18 11/04/18 08:00 08:00 08:59 08:59 Temp 98.3 98.3 Pulse 96 99 Resp 32 B/P (MAP) 150/69 (96) 158/67 Pulse Ox 99 98 O2 Delivery Ventilator Mechanical Ventilator Ventilator 11/04/18 11/04/18 11/04/18 09:00 09:59 10:00 Pulse 87 68 Resp 20 17 B/P (MAP) 174/72 (106) 83/43 (56) Pulse Ox 100 99 99 O2 Delivery Ventilator Ventilator Ventilator Intake and Output 11/03/18 11/03/18 11/04/18 15:00 23:00 07:00 Intake Total 550 ml 1685 ml 1866.8 ml Output Total 445 ml 495 ml 265 ml Balance 105 ml 1190 ml 1601.8 ml MIKO JEFFERSON MD Nov 04, 2018 13:32
[2018-11-04] MEDS ORDERED: VANCOMYCIN 1.25 GM in IV NORMAL SALINE 250ML 250 ML IV SCH (20:00)
[2018-11-04 20:15] LABS: FIO2 ABG 40; PCO2 ABG 63 mmHg (35-46)
[2018-11-04] MEDS: APIXABAN 5 MG TABLET. PO SCH (21:40)
[2018-11-04] MEDS: LORazepam 1 MG TABLET PO SCH (21:41)
[2018-11-04] MEDS: LISINOPRIL 5 MG TABLET. PO SCH (21:42)
[2018-11-04] MEDS: INSULIN GLARGINE 300 UNITS/3 ML INSULN.PEN. SQ SCH (22:05)
[2018-11-05] VITALS (24 sets, daily range): BP systolic 90–183; BP diastolic 30–80
[2018-11-05] MEDS: MEROPENEM 500 MG in IV NORMAL SALINE 50ML 50 ML IV SCH ×4 (00:24→17:42)
[2018-11-05] MEDS: HYDROcodone/APAP 5/325MG 1 TAB TABLET PO PRN ×3 (00:56→16:13)
[2018-11-05] MEDS: LORazepam 1 MG TABLET PO PRN (00:56)
[2018-11-05] MEDS: CLOTRIMAZOLE 10 MG TROCHE. MM SCH ×5 (06:19→22:07)
[2018-11-05 06:47] LABS: BASO % 0 % (0-3); EOS # 0.1 x10^3/uL (0.0-0.7); EOS % 1 % (0-3); HEMATOCRIT 23.6 % (39.0-53.0); HEMOGLOBIN 7.6 g/dL (13.0-17.5); LYMPH % 10 % (24-48); MEAN CORPUSCULAR HEMOGLOBIN 30 pg (25-35); MEAN CORPUSCULAR HGB CONC 32 g/dL (31-37); MEAN CORPUSCULAR VOLUME 93 fL (79-100); MONO # 0.7 x10^3/uL (0.0-1.1); MONO % 6 % (0-9); NEUT # 8.8 x10^3uL (1.8-7.7); NEUT % 83 % (31-73); PLATELET COUNT 268 x10^3/uL (140-400); RED BLOOD COUNT 2.53 x10^6/uL (4.30-5.70); RED CELL DISTRIBUTION WIDTH 16.9 % (11.5-14.5); WHITE BLOOD COUNT 10.7 x10^3/uL (4.0-11.0)
--- NOTE | 2018-11-05 06:56 | PDOC ---
PULMONARY PROGRESS NOTES Subjective on vent, trach, alert, no pain, no sob, mod trach secretion Vitals Vital Signs Date Time Temp Pulse Resp B/P (MAP) Pulse Ox O2 Delivery O2 Flow Rate FiO2 11/05/18 04:25 97 Ventilator 11/05/18 04:00 98.4 81 18 119/54 (75) 98.4 11/05/18 01:56 40.0 Comments ros as mentioned as above discussed w rn, other sys otherwise neg on vent General: Alert HEENT: Other (nc at perrl nose throat clear neck trach site ok no lad no thyromegaly) Lungs: Crackles Cardiovascular: S1, S2 Abdomen: Soft, Non-tender, Other (no mass) Neuro Exam: Alert Extremities: Other (edema) Skin: Warm Labs Laboratory Tests Test 11/03/18 08:00 11/03/18 16:00 11/03/18 20:55 11/04/18 01:30 O2 Saturation 97 % (92-99) Arterial Blood pH 7.42 (7.35-7.45) Arterial Blood pCO2 at Patient Temp 56 mmHg (35-46) Arterial Blood pO2 at Patient Temp 99 mmHg (65-108) Arterial Blood HCO3 36 mmol/L (21-28) Arterial Blood Base Excess 10 mmol/L (-3-3) FiO2 35 Heparin Anti-Xa Act, Unfractionated 0.72 IU/mL (0.30-0.70) 0.36 IU/mL (0.30-0.70) Vancomycin Level Trough 23.9 mcg/mL (10.0-20.0) Vancomycin Last Dose Date Vancomycin Last Dose Time 1300 Test 11/04/18 06:00 11/04/18 09:03 11/05/18 06:30 White Blood Count 11.8 x10^3/uL (4.0-11.0) 10.7 x10^3/uL (4.0-11.0) Red Blood Count 2.70 x10^6/uL (4.30-5.70) 2.53 x10^6/uL (4.30-5.70) Hemoglobin 8.1 g/dL (13.0-17.5) 7.6 g/dL (13.0-17.5) Hematocrit 25.0 % (39.0-53.0) 23.6 % (39.0-53.0) Mean Corpuscular Volume 93 fL (79-100) 93 fL (79-100) Mean Corpuscular Hemoglobin 30 pg (25-35) 30 pg (25-35) Mean Corpuscular Hemoglobin Concent 32 g/dL (31-37) 32 g/dL (31-37) Red Cell Distribution Width 16.6 % (11.5-14.5) 16.9 % (11.5-14.5) Platelet Count 253 x10^3/uL (140-400) 268 x10^3/uL (140-400) Neutrophils (%) (Auto) 85 % (31-73) 83 % (31-73) Lymphocytes (%) (Auto) 9 % (24-48) 10 % (24-48) Monocytes (%) (Auto) 5 % (0-9) 6 % (0-9) Eosinophils (%) (Auto) 2 % (0-3) 1 % (0-3) Basophils (%) (Auto) 0 % (0-3) 0 % (0-3) Neutrophils # (Auto) 9.9 x10^3uL (1.8-7.7) 8.8 x10^3uL (1.8-7.7) Lymphocytes # (Auto) 1.0 x10^3/uL (1.0-4.8) 1.0 x10^3/uL (1.0-4.8) Monocytes # (Auto) 0.6 x10^3/uL (0.0-1.1) 0.7 x10^3/uL (0.0-1.1) Eosinophils # (Auto) 0.2 x10^3/uL (0.0-0.7) 0.1 x10^3/uL (0.0-0.7) Basophils # (Auto) 0.0 x10^3/uL (0.0-0.2) 0.0 x10^3/uL (0.0-0.2) Heparin Anti-Xa Act, Unfractionated 0.27 IU/mL (0.30-0.70) Sodium Level 137 mmol/L (136-145) Potassium Level 3.8 mmol/L (3.5-5.1) Chloride Level 97 mmol/L (98-107) Carbon Dioxide Level 36 mmol/L (21-32) Anion Gap 4 (6-14) Blood Urea Nitrogen 31 mg/dL (8-26) Creatinine 1.1 mg/dL (0.7-1.3) Estimated GFR (Cockcroft-Gault) 65.1 Glucose Level 261 mg/dL (70-99) Calcium Level 8.8 mg/dL (8.5-10.1) O2 Saturation 96 % (92-99) Arterial Blood pH 7.38 (7.35-7.45) Arterial Blood pCO2 at Patient Temp 63 mmHg (35-46) Arterial Blood pO2 at Patient Temp 85 mmHg (65-108) Arterial Blood HCO3 36 mmol/L (21-28) Arterial Blood Base Excess 9 mmol/L (-3-3) FiO2 40 Laboratory Tests Test 11/04/18 09:03 11/05/18 06:30 O2 Saturation 96 % (92-99) Arterial Blood pH 7.38 (7.35-7.45) Arterial Blood pCO2 at Patient Temp 63 mmHg (35-46) Arterial Blood pO2 at Patient Temp 85 mmHg (65-108) Arterial Blood HCO3 36 mmol/L (21-28) Arterial Blood Base Excess 9 mmol/L (-3-3) FiO2 40 White Blood Count 10.7 x10^3/uL (4.0-11.0) Red Blood Count 2.53 x10^6/uL (4.30-5.70) Hemoglobin 7.6 g/dL (13.0-17.5) Hematocrit 23.6 % (39.0-53.0) Mean Corpuscular Volume 93 fL (79-100) Mean Corpuscular Hemoglobin 30 pg (25-35) Mean Corpuscular Hemoglobin Concent 32 g/dL (31-37) Red Cell Distribution Width 16.9 % (11.5-14.5) Platelet Count 268 x10^3/uL (140-400) Neutrophils (%) (Auto) 83 % (31-73) Lymphocytes (%) (Auto) 10 % (24-48) Monocytes (%) (Auto) 6 % (0-9) Eosinophils (%) (Auto) 1 % (0-3) Basophils (%) (Auto) 0 % (0-3) Neutrophils # (Auto) 8.8 x10^3uL (1.8-7.7) Lymphocytes # (Auto) 1.0 x10^3/uL (1.0-4.8) Monocytes # (Auto) 0.7 x10^3/uL (0.0-1.1) Eosinophils # (Auto) 0.1 x10^3/uL (0.0-0.7) Basophils # (Auto) 0.0 x10^3/uL (0.0-0.2) Medications Active Scripts Medications Dose Route/Sig Max Daily Dose Days Date Category Pepcid (Famotidine) 20 Mg Tablet 20 Mg PO BID 11/01/18 Reported Albuterol Sulfate Neb Soln (Albuterol Sulfate) 2.5 Mg/3 Ml Vial.neb 2.5 Mg NEB [id number] 11/01/18 Reported Hydralazine Hcl 10 Mg Tablet 10 Mg IV PRN Q4HRS PRN 11/01/18 Reported Amlodipine Besylate 5 Mg Tablet 5 Mg PO DAILY 11/01/18 Reported Miralax (Polyethylene Glycol 3350) 17 Gm Powd.pack 1 Packet PO DAILY 11/01/18 Reported Zofran (Ondansetron Hcl) 4 Mg Tablet 1 Tab IV Q6HRS 11/01/18 Reported Reglan (Metoclopramide Hcl) 10 Mg Tablet 10 Mg PO QIDACHS 11/01/18 Reported Lorazepam 1 Mg Tablet 1 Tab PO PRN Q6HRS PRN 11/01/18 Reported Lantus (Insulin Glargine,Hum.rec.anlog) 100 Unit/1 Ml Vial 10 Unit SQ HS 11/01/18 Reported Hydrocodone-Acetamin 5-325 mg (Hydrocodone/Acetaminophen) 1 Each Tablet 1 Each PO PRN Q6HRS PRN 11/01/18 Reported Lasix (Furosemide) 40 Mg Tablet 40 Mg IV DAILY PRN 11/01/18 Reported Fluconazole 100 Mg Tablet 1 Tab PO DAILY 11/01/18 Reported Pulmicort (Budesonide) 0.5 Mg/2 Ml Ampul.neb 1 Vial NEB BID 11/01/18 Reported Bisacodyl 10 Mg Supp.rect 10 Mg RC PRN DAILY PRN 11/01/18 Reported Proair Hfa (Albuterol Sulfate) 8.5 Gm Hfa.aer.ad 1 Puff INH PRN Q6HRS PRN 10/07/18 Reported Oxazepam 30 Mg Capsule 30 Mg PO QHS 10/07/[address] reviewed 1. One tiny filling defect in a right lower lobe pulmonary artery is consistent with a tiny pulmonary embolus. 2. Moderate to severe centrilobular emphysema. Patchy mild infiltrates in the bases may reflect atypical pneumonia or mild pulmonary edema. Impression . IMPRESSION: 1. Uvafh-ag-niaiylc hypercapnic hypoxemic respiratory failure. 2. Acute pulmonary embolism. 3. Acute exacerbation of chronic obstructive pulmonary disease. 4. History of alcoholism. 5. History of tobacco use. 6. Sepsis with Strep spp bacteremia (2 of 4 bottles) POA 11/01, could be Enterococcus vs strep Plan . cont vent support, setting reviewed, start weaning as tolerated, avoid oversedation ok to transfer to [facility] nutritional support ct reviewed will continue support anticoagulation abx per id case discussed with RN, rt ERIN SEARS MD Nov 05, 2018 06:56
[2018-11-05 07:07] LABS: ALBUMIN 1.7 g/dL (3.4-5.0); ALBUMIN/GLOBULIN RATIO 0.4 (1.0-1.7); CALCIUM 8.7 mg/dL (8.5-10.1); GFR 72.6; POTASSIUM 4.2 mmol/L (3.5-5.1); TOTAL BILIRUBIN 0.2 mg/dL (0.2-1.0); TOTAL PROTEIN 5.7 g/dL (6.4-8.2)
[2018-11-05] MEDS: ALBUTEROL SULFATE 2.5 MG/3 ML NEBU. NEB SCH ×4 (07:51→20:10)
[2018-11-05] MEDS: BUDESONIDE 0.5 MG/2 ML NEBU. NEB SCH ×2 (07:51→20:10)
[2018-11-05] MEDS: INSULIN LISPRO 300 UNITS/3 ML INSULN.PEN. SQ SCH ×4 (07:57→21:15)
--- NOTE | 2018-11-05 08:27 | PDOC ---
Infectious Disease Note Subjective Subjective Intubated via trach, FiO2 40% No fevers last 48 hours Tube feedings via PEG 65 ml/hr ROS ROS unobtainable Vital Sign Vital Signs Vital Signs Date Time Temp Pulse Resp B/P (MAP) Pulse Ox O2 Delivery O2 Flow Rate FiO2 11/05/18 08:00 Ventilator 11/05/18 07:51 100 11/05/18 06:00 83 20 136/61 (86) 11/05/18 04:00 98.4 98.4 11/05/18 01:56 40.0 Physical Exam PHYSICAL EXAM GENERAL: Opens eyes to name HEENT: Pupils equal, oral cavity pink NECK: Trach/vent LUNGS: Mechanical breath sounds CARDIOVASCULAR: S1, S2 irregular ABDOMEN: BS present, soft, no guarding, Peg : Jeffers in place EXTREMITIES: No clubbing, cyanosis. Minimal edema. SCDs NEUROLOGIC: Opens eyes to name, sleepy SKIN: warm without rash RUE-PICC without signs of any complications Labs Lab Laboratory Tests Test 11/04/18 09:03 11/05/18 06:30 O2 Saturation 96 % (92-99) Arterial Blood pH 7.38 (7.35-7.45) Arterial Blood pCO2 at Patient Temp 63 mmHg (35-46) Arterial Blood pO2 at Patient Temp 85 mmHg (65-108) Arterial Blood HCO3 36 mmol/L (21-28) Arterial Blood Base Excess 9 mmol/L (-3-3) FiO2 40 White Blood Count 10.7 x10^3/uL (4.0-11.0) Red Blood Count 2.53 x10^6/uL (4.30-5.70) Hemoglobin 7.6 g/dL (13.0-17.5) Hematocrit 23.6 % (39.0-53.0) Mean Corpuscular Volume 93 fL (79-100) Mean Corpuscular Hemoglobin 30 pg (25-35) Mean Corpuscular Hemoglobin Concent 32 g/dL (31-37) Red Cell Distribution Width 16.9 % (11.5-14.5) Platelet Count 268 x10^3/uL (140-400) Neutrophils (%) (Auto) 83 % (31-73) Lymphocytes (%) (Auto) 10 % (24-48) Monocytes (%) (Auto) 6 % (0-9) Eosinophils (%) (Auto) 1 % (0-3) Basophils (%) (Auto) 0 % (0-3) Neutrophils # (Auto) 8.8 x10^3uL (1.8-7.7) Lymphocytes # (Auto) 1.0 x10^3/uL (1.0-4.8) Monocytes # (Auto) 0.7 x10^3/uL (0.0-1.1) Eosinophils # (Auto) 0.1 x10^3/uL (0.0-0.7) Basophils # (Auto) 0.0 x10^3/uL (0.0-0.2) Sodium Level 136 mmol/L (136-145) Potassium Level 4.2 mmol/L (3.5-5.1) Chloride Level 99 mmol/L (98-107) Carbon Dioxide Level 36 mmol/L (21-32) Anion Gap 1 (6-14) Blood Urea Nitrogen 31 mg/dL (8-26) Creatinine 1.0 mg/dL (0.7-1.3) Estimated GFR (Cockcroft-Gault) 72.6 BUN/Creatinine Ratio 31 (6-20) Glucose Level 206 mg/dL (70-99) Calcium Level 8.7 mg/dL (8.5-10.1) Total Bilirubin 0.2 mg/dL (0.2-1.0) Aspartate Amino Transf (AST/SGOT) 15 U/L (15-37) Alanine Aminotransferase (ALT/SGPT) 22 U/L (16-63) Alkaline Phosphatase 72 U/L (46-116) Total Protein 5.7 g/dL (6.4-8.2) Albumin 1.7 g/dL (3.4-5.0) Albumin/Globulin Ratio 0.4 (1.0-1.7) Micro 6/5. BLD CULT RESULT 1 Preliminary Streptococcus species 6/5. SPUTUM Pseudomonas aeruginosa Antibiotic RSLT#1 Cefepime S =4 Ceftazidime S =4 Ciprofloxacin S<=0.25 Gentamicin S<=1 Imipenem S =2 Levofloxacin S =1 Meropenem S =0.5 Piperacillin S =8 Ticarcillin S =32 Tobramycin S<=1 6/5. URINE CULTURE RES 1 Final Pseudomonas aeruginosa Greater than 100,000 colony forming units per mL Antibiotic RSLT#1 Amikacin S<=2 Cefepime S =2 Ceftazidime S =4 Ciprofloxacin S<=0.25 Gentamicin S<=1 Imipenem S =2 Levofloxacin S =1 Meropenem S =0.5 Piperacillin S =8 Ticarcillin S =32 Tobramycin S<=1 Objective Assessment Sepsis with Strep spp bacteremia (2 of 4 bottles) POA 11/01, strep PSAE (sims-S) sputum 11/01 ? true infection vs colonization UTI w/ growth PSAE (sims-S) PCN allergy w/ hives and throat swelling; erythromycin allergy w/ hives Leukocytosis - bands better H/o Bradycardia Pndju-in-yeedkqi hypercapnic hypoxemic respiratory failure. Acute pulmonary embolism. 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 History of alcoholism. Plan Plan of Care meropenem (11/02) d/c vanc Trough 23.9 Awaiting BC ID/horace Monitor for abx toxicities/side effects May need PICC change depending on Cults May need goals of therapy eval D/w nursing ALEXA ZARAGOZA APRN Nov 05, 2018 08:27 JEANNE WRAY MD Nov 05, 2018 13:16
[2018-11-05] MEDS: POLYETHYLENE GLYCOL 3350 17 GM PACKET. PO SCH (09:00)
[2018-11-05] MEDS: METOCLOPRAMIDE 10 MG TABLET. PO SCH ×4 (09:10→21:09)
[2018-11-05] MEDS: amLODIPine BESYLATE 5 MG TABLET PO SCH (09:10)
[2018-11-05] MEDS: FAMOTIDINE 20 MG TABLET. PO SCH ×2 (09:10→21:09)
[2018-11-05] MEDS: APIXABAN 5 MG TABLET. PO SCH ×2 (09:10→21:09)
[2018-11-05] MEDS: FUROSEMIDE 40 MG TABLET. PO SCH (09:11)
--- NOTE | 2018-11-05 09:12 | RAD ---
AP chest x-ray HISTORY: Mechanical ventilation for respiratory failure COMPARISON: CT chest November 01, 2018. FINDINGS: Heart size normal. Calcified granuloma subcarinal mediastinum. Tracheostomy. Right PICC line tip region proximal SVC or lower right brachiocephalic vein. No pneumothorax. No pulmonary opacities or pleural effusions. Bones are unremarkable. IMPRESSION: No acute process. Electronically signed by: Sergio Vega MD (11/05/2018 9:10 AM) [facility]
[2018-11-05] MEDS: POTASSIUM CHLORIDE 20 MEQ/15 ML ORAL LIQUID. PEG SCH (09:13)
[2018-11-05 09:43] LABS: BASE EXCESS ABG 8 mmol/L (-3-3); HCO3 ABG 36 mmol/L (21-28); PO2 ABG 68 mmHg (65-108); SAT O2 ABG 90 % (92-99)
[2018-11-05 09:45] LABS: PCO2 ABG 76 mmHg (35-46)
[2018-11-05 09:46] LABS: FIO2 ABG 35
[2018-11-05] MEDS: HALOPERIDOL LACTATE 5 MG/ML VIAL. IVP PRN ×2 (10:11→21:50)
--- NOTE | 2018-11-05 17:45 | PDOC ---
PROGRESS NOTES Chief Complaint Chief Complaint acute on chronic hypoxia, with hypercarbia and COPD exacerbation, was still weaning vent at LTAC sepsis, + blood cultures possible mucus plug Acute pulmonary embolism, changed to eliquis History of alcoholism and tobacco use. History of Present Illness History of Present Illness cont care in ICU - he is more alert and responsive now cont current broad abx, cont the supportive care may be able to return to LTAC - ID following blood cx Vitals Vitals Vital Signs Date Time Temp Pulse Resp B/P (MAP) Pulse Ox O2 Delivery O2 Flow Rate FiO2 11/05/18 17:23 96 Ventilator 11/05/18 17:00 99 34 163/71 (101) 11/05/18 16:00 98.3 98.3 11/05/18 01:56 40.0 Physical Exam Physical Exam GENERAL: Opens eyes to name HEENT: Pupils equal, oral cavity pink NECK: Trach/vent EXTREMITIES: No clubbing, cyanosis. Minimal edema. SCDs NEUROLOGIC: Opens eyes to name, sleepy SKIN: warm without rash RUE-PICC without signs of any complications General: Alert, Oriented X3, Cooperative, No acute distress, Other (lethargic) Heart: Regular rate (Sinus tach), No murmurs Lungs: Crackles Abdomen: Soft, Other (obese; PEG) Extremities: No cyanosis, Other (2+ bilateral LE pitting edema) Skin: No breakdown, No significant lesion Labs LABS Laboratory Tests Test 11/05/18 06:30 11/05/18 09:30 White Blood Count 10.7 x10^3/uL (4.0-11.0) Red Blood Count 2.53 x10^6/uL (4.30-5.70) Hemoglobin 7.6 g/dL (13.0-17.5) Hematocrit 23.6 % (39.0-53.0) Mean Corpuscular Volume 93 fL (79-100) Mean Corpuscular Hemoglobin 30 pg (25-35) Mean Corpuscular Hemoglobin Concent 32 g/dL (31-37) Red Cell Distribution Width 16.9 % (11.5-14.5) Platelet Count 268 x10^3/uL (140-400) Neutrophils (%) (Auto) 83 % (31-73) Lymphocytes (%) (Auto) 10 % (24-48) Monocytes (%) (Auto) 6 % (0-9) Eosinophils (%) (Auto) 1 % (0-3) Basophils (%) (Auto) 0 % (0-3) Neutrophils # (Auto) 8.8 x10^3uL (1.8-7.7) Lymphocytes # (Auto) 1.0 x10^3/uL (1.0-4.8) Monocytes # (Auto) 0.7 x10^3/uL (0.0-1.1) Eosinophils # (Auto) 0.1 x10^3/uL (0.0-0.7) Basophils # (Auto) 0.0 x10^3/uL (0.0-0.2) Sodium Level 136 mmol/L (136-145) Potassium Level 4.2 mmol/L (3.5-5.1) Chloride Level 99 mmol/L (98-107) Carbon Dioxide Level 36 mmol/L (21-32) Anion Gap 1 (6-14) Blood Urea Nitrogen 31 mg/dL (8-26) Creatinine 1.0 mg/dL (0.7-1.3) Estimated GFR (Cockcroft-Gault) 72.6 BUN/Creatinine Ratio 31 (6-20) Glucose Level 206 mg/dL (70-99) Calcium Level 8.7 mg/dL (8.5-10.1) Total Bilirubin 0.2 mg/dL (0.2-1.0) Aspartate Amino Transf (AST/SGOT) 15 U/L (15-37) Alanine Aminotransferase (ALT/SGPT) 22 U/L (16-63) Alkaline Phosphatase 72 U/L (46-116) Total Protein 5.7 g/dL (6.4-8.2) Albumin 1.7 g/dL (3.4-5.0) Albumin/Globulin Ratio 0.4 (1.0-1.7) O2 Saturation 90 % (92-99) Arterial Blood pH 7.30 (7.35-7.45) Arterial Blood pCO2 at Patient Temp 76 mmHg (35-46) Arterial Blood pO2 at Patient Temp 68 mmHg (65-108) Arterial Blood HCO3 36 mmol/L (21-28) Arterial Blood Base Excess 8 mmol/L (-3-3) FiO2 35 Assessment and Plan Assessmemt and Plan Problems Medical Problems: (1) Dyspnea Status: Acute (2) Respiratory failure Status: Acute (3) Upper leg DVT (deep venous thromboembolism), acute Status: Acute Comment Review of Relevant I have reviewed the following items akbar (where applicable) has been applied. Labs Laboratory Tests Test 11/03/18 20:55 11/04/18 01:30 11/04/18 06:00 11/04/18 09:03 Heparin Anti-Xa Act, Unfractionated 0.36 IU/mL (0.30-0.70) 0.27 IU/mL (0.30-0.70) Vancomycin Level Trough 23.9 mcg/mL (10.0-20.0) Vancomycin Last Dose Date Vancomycin Last Dose Time 1300 White Blood Count 11.8 x10^3/uL (4.0-11.0) Red Blood Count 2.70 x10^6/uL (4.30-5.70) Hemoglobin 8.1 g/dL (13.0-17.5) Hematocrit 25.0 % (39.0-53.0) Mean Corpuscular Volume 93 fL (79-100) Mean Corpuscular Hemoglobin 30 pg (25-35) Mean Corpuscular Hemoglobin Concent 32 g/dL (31-37) Red Cell Distribution Width 16.6 % (11.5-14.5) Platelet Count 253 x10^3/uL (140-400) Neutrophils (%) (Auto) 85 % (31-73) Lymphocytes (%) (Auto) 9 % (24-48) Monocytes (%) (Auto) 5 % (0-9) Eosinophils (%) (Auto) 2 % (0-3) Basophils (%) (Auto) 0 % (0-3) Neutrophils # (Auto) 9.9 x10^3uL (1.8-7.7) Lymphocytes # (Auto) 1.0 x10^3/uL (1.0-4.8) Monocytes # (Auto) 0.6 x10^3/uL (0.0-1.1) Eosinophils # (Auto) 0.2 x10^3/uL (0.0-0.7) Basophils # (Auto) 0.0 x10^3/uL (0.0-0.2) Sodium Level 137 mmol/L (136-145) Potassium Level 3.8 mmol/L (3.5-5.1) Chloride Level 97 mmol/L (98-107) Carbon Dioxide Level 36 mmol/L (21-32) Anion Gap 4 (6-14) Blood Urea Nitrogen 31 mg/dL (8-26) Creatinine 1.1 mg/dL (0.7-1.3) Estimated GFR (Cockcroft-Gault) 65.1 Glucose Level 261 mg/dL (70-99) Calcium Level 8.8 mg/dL (8.5-10.1) O2 Saturation 96 % (92-99) Arterial Blood pH 7.38 (7.35-7.45) Arterial Blood pCO2 at Patient Temp 63 mmHg (35-46) Arterial Blood pO2 at Patient Temp 85 mmHg (65-108) Arterial Blood HCO3 36 mmol/L (21-28) Arterial Blood Base Excess 9 mmol/L (-3-3) FiO2 40 Test 11/05/18 06:30 11/05/18 09:30 White Blood Count 10.7 x10^3/uL (4.0-11.0) Red Blood Count 2.53 x10^6/uL (4.30-5.70) Hemoglobin 7.6 g/dL (13.0-17.5) Hematocrit 23.6 % (39.0-53.0) Mean Corpuscular Volume 93 fL (79-100) Mean Corpuscular Hemoglobin 30 pg (25-35) Mean Corpuscular Hemoglobin Concent 32 g/dL (31-37) Red Cell Distribution Width 16.9 % (11.5-14.5) Platelet Count 268 x10^3/uL (140-400) Neutrophils (%) (Auto) 83 % (31-73) Lymphocytes (%) (Auto) 10 % (24-48) Monocytes (%) (Auto) 6 % (0-9) Eosinophils (%) (Auto) 1 % (0-3) Basophils (%) (Auto) 0 % (0-3) Neutrophils # (Auto) 8.8 x10^3uL (1.8-7.7) Lymphocytes # (Auto) 1.0 x10^3/uL (1.0-4.8) Monocytes # (Auto) 0.7 x10^3/uL (0.0-1.1) Eosinophils # (Auto) 0.1 x10^3/uL (0.0-0.7) Basophils # (Auto) 0.0 x10^3/uL (0.0-0.2) Sodium Level 136 mmol/L (136-145) Potassium Level 4.2 mmol/L (3.5-5.1) Chloride Level 99 mmol/L (98-107) Carbon Dioxide Level 36 mmol/L (21-32) Anion Gap 1 (6-14) Blood Urea Nitrogen 31 mg/dL (8-26) Creatinine 1.0 mg/dL (0.7-1.3) Estimated GFR (Cockcroft-Gault) 72.6 BUN/Creatinine Ratio 31 (6-20) Glucose Level 206 mg/dL (70-99) Calcium Level 8.7 mg/dL (8.5-10.1) Total Bilirubin 0.2 mg/dL (0.2-1.0) Aspartate Amino Transf (AST/SGOT) 15 U/L (15-37) Alanine Aminotransferase (ALT/SGPT) 22 U/L (16-63) Alkaline Phosphatase 72 U/L (46-116) Total Protein 5.7 g/dL (6.4-8.2) Albumin 1.7 g/dL (3.4-5.0) Albumin/Globulin Ratio 0.4 (1.0-1.7) O2 Saturation 90 % (92-99) Arterial Blood pH 7.30 (7.35-7.45) Arterial Blood pCO2 at Patient Temp 76 mmHg (35-46) Arterial Blood pO2 at Patient Temp 68 mmHg (65-108) Arterial Blood HCO3 36 mmol/L (21-28) Arterial Blood Base Excess 8 mmol/L (-3-3) FiO2 35 Laboratory Tests Test 11/05/18 06:30 11/05/18 09:30 White Blood Count 10.7 x10^3/uL (4.0-11.0) Red Blood Count 2.53 x10^6/uL (4.30-5.70) Hemoglobin 7.6 g/dL (13.0-17.5) Hematocrit 23.6 % (39.0-53.0) Mean Corpuscular Volume 93 fL (79-100) Mean Corpuscular Hemoglobin 30 pg (25-35) Mean Corpuscular Hemoglobin Concent 32 g/dL (31-37) Red Cell Distribution Width 16.9 % (11.5-14.5) Platelet Count 268 x10^3/uL (140-400) Neutrophils (%) (Auto) 83 % (31-73) Lymphocytes (%) (Auto) 10 % (24-48) Monocytes (%) (Auto) 6 % (0-9) Eosinophils (%) (Auto) 1 % (0-3) Basophils (%) (Auto) 0 % (0-3) Neutrophils # (Auto) 8.8 x10^3uL (1.8-7.7) Lymphocytes # (Auto) 1.0 x10^3/uL (1.0-4.8) Monocytes # (Auto) 0.7 x10^3/uL (0.0-1.1) Eosinophils # (Auto) 0.1 x10^3/uL (0.0-0.7) Basophils # (Auto) 0.0 x10^3/uL (0.0-0.2) Sodium Level 136 mmol/L (136-145) Potassium Level 4.2 mmol/L (3.5-5.1) Chloride Level 99 mmol/L (98-107) Carbon Dioxide Level 36 mmol/L (21-32) Anion Gap 1 (6-14) Blood Urea Nitrogen 31 mg/dL (8-26) Creatinine 1.0 mg/dL (0.7-1.3) Estimated GFR (Cockcroft-Gault) 72.6 BUN/Creatinine Ratio 31 (6-20) Glucose Level 206 mg/dL (70-99) Calcium Level 8.7 mg/dL (8.5-10.1) Total Bilirubin 0.2 mg/dL (0.2-1.0) Aspartate Amino Transf (AST/SGOT) 15 U/L (15-37) Alanine Aminotransferase (ALT/SGPT) 22 U/L (16-63) Alkaline Phosphatase 72 U/L (46-116) Total Protein 5.7 g/dL (6.4-8.2) Albumin 1.7 g/dL (3.4-5.0) Albumin/Globulin Ratio 0.4 (1.0-1.7) O2 Saturation 90 % (92-99) Arterial Blood pH 7.30 (7.35-7.45) Arterial Blood pCO2 at Patient Temp 76 mmHg (35-46) Arterial Blood pO2 at Patient Temp 68 mmHg (65-108) Arterial Blood HCO3 36 mmol/L (21-28) Arterial Blood Base Excess 8 mmol/L (-3-3) FiO2 35 Microbiology 11/01/18 Blood Culture - Preliminary, Resulted NO GROWTH AFTER 4 DAYS 11/01/18 - Final, Complete 11/01/18 - Final, Complete 11/01/18 - Final, Complete 11/01/18 Gram Stain Evaluation - Final, Complete 11/01/18 Sputum Culture - Final, Complete 11/01/18 Sputum Result 1 - Final, Complete 11/01/18 Antimicrobic Susceptibility - Final, Complete 11/01/18 Urine Culture - Final, Complete 11/01/18 Urine Culture Result 1 (ELEN) - Final, Complete 11/01/18 Antimicrobic Susceptibility - Final, Complete Medications Current Medications Albuterol/ Ipratropium (Duoneb) 3 ml 1X ONCE NEB Last administered on 11/01/18at 06:10; Start 11/01/18 at 06:30; Stop 11/01/18 at 06:31; Status DC Albuterol/ Ipratropium (Duoneb) 3 ml 1X ONCE NEB Last administered on 11/01/18at 06:10; Start 11/01/18 at 06:30; Stop 11/01/18 at 06:31; Status DC Sodium Chloride 1,000 ml @ 1,000 mls/hr Q1H IV Last administered on 11/01/18at 06:40; Start 11/01/18 at 06:30; Stop 11/01/18 at 07:29; Status DC Iohexol (Omnipaque 350 Mg/ml) 90 ml 1X ONCE IV Last administered on 11/01/18at 07:44; Start 11/01/18 at 07:15; Stop 11/01/18 at 07:16; Status DC Info (CONTRAST GIVEN -- Rx MONITORING) 1 each PRN DAILY PRN MC SEE COMMENTS; Start 11/01/18 at 07:15; Stop 11/03/18 at 07:14; Status DC Heparin Sodium (Porcine) (Heparin Sodium) 8,000 unit 1X ONCE IV Last administered on 11/01/18at 08:17; Start 11/01/18 at 08:00; Stop 11/01/18 at 08:01; Status DC Heparin Sodium/ Dextrose 500 ml @ 0 mls/hr CONT PRN IV SEE I/O RECORD Last administered on 11/03/18 19:49; Start 11/01/18 at 08:00; Stop 11/04/18 at 08:37; Status DC Albuterol Sulfate (Ventolin Neb Soln) 2.5 mg RTQID NEB Last administered on 11/05/18 15:55; Start 11/01/18 at 12:00 Albuterol Sulfate (Ventolin Neb Soln) 2.5 mg PRN Q6HRS PRN INH SHORTNESS OF BREATH; Start 11/01/18 at 10:15 Amlodipine Besylate (Norvasc) 5 mg DAILY PO Last administered on 11/05/18 09:10; Start 11/01/18 at 11:00 Budesonide (Pulmicort) 0.5 mg RTBID NEB Last administered on 11/05/18 07:51; Start 11/01/18 at 11:00 Famotidine (Pepcid) 20 mg BID PO Last administered on 11/05/18 09:10; Start 11/01/18 at 11:00 Furosemide (Lasix) 40 mg PRN DAILY PRN PO FLUID RETENTION; Start 11/01/18 at 10:15; Stop 11/01/18 at 14:02; Status DC Acetaminophen/ Hydrocodone Bitart (Lortab 5/325) 1 tab PRN Q6HRS PRN PO PAIN Last administered on 11/05/18 16:13; Start 11/01/18 at 10:15 Lorazepam (Ativan) 1 mg PRN Q6HRS PRN PO ANXIETY / AGITATION Last administered on 11/05/18 00:56; Start 11/01/18 at 10:15 Metoclopramide HCl (Reglan) 10 mg QIDACHS PO Last administered on 11/05/18 16:13; Start 11/01/18 at 11:30 Bisacodyl (Dulcolax Supp) 10 mg PRN DAILY PRN FL CONSTIPATION; Start 11/01/18 at 10:30 Hydralazine HCl (Apresoline Inj) 10 mg PRN Q4HRS PRN IVP HYPERTENSION Last administered on 11/02/18 15:45; Start 11/01/18 at 10:30 Insulin Glargine (Lantus) 10 units QHS SQ Last administered on 11/04/18 22:05; Start 11/01/18 at 21:00 Ondansetron HCl (Zofran) 4 mg PRN Q6HRS PRN IV NAUSEA/VOMITING; Start 11/01/18 at 10:30 Lorazepam (Ativan) 2 mg QHS PO Last administered on 11/04/18 21:41; Start 11/01/18 at 21:00 Polyethylene Glycol (miraLAX PACKET) 17 gm DAILY PO Last administered on 11/03/18 09:25; Start 11/01/18 at 11:00 Info (Anti-Coagulation Monitoring By Pharmacy) 1 each PRN DAILY PRN MC SEE COMMENTS Last administered on 11/02/18 10:56; Start 11/01/18 at 10:45 Insulin Human Lispro (HumaLOG) 0-5 UNITS TIDWMEALS SQ Last administered on 11/02/18 18:40; Start 11/01/18 at 12:00; Stop 11/02/18 at 21:37; Status DC Dextrose (Dextrose 50%-Water Syringe) 12.5 gm PRN Q15MIN PRN IV SEE COMMENTS; Start 11/01/18 at 10:15 Furosemide (Lasix) 40 mg DAILY PO Last administered on 11/05/18 09:11; Start 11/01/18 at 14:15 Diphenhydramine HCl (Benadryl) 25 mg PRN Q6HRS PRN IVP ITCHING Last administered on 11/04/18 21:42; Start 11/01/18 at 19:45 Lorazepam (Ativan Inj) 0.5 mg 1X ONCE IV Last administered on 11/02/18 10:27; Start 11/02/18 at 10:15; Stop 11/02/18 at 10:16; Status DC Vancomycin HCl (Vanco Per Pharmacy) 1 each PRN DAILY PRN MC SEE COMMENTS Last administered on 11/04/18 16:14; Start 11/02/18 at 12:30; Stop 11/05/18 at 13:28; Status DC Meropenem 500 mg/ Sodium Chloride 50 ml @ 100 mls/hr Q6HRS IV Last administered on 11/05/18 17:42; Start 11/02/18 at 13:00 Vancomycin HCl 2 gm/Sodium Chloride 500 ml @ 250 mls/hr 1X ONCE IV Last administered on 11/02/18 13:26; Start 11/02/18 at 13:00; Stop 11/02/18 at 14:59; Status DC Lisinopril (Prinivil) 5 mg QHS PO Last administered on 11/04/18 21:42; Start 11/02/18 at 21:00 Haloperidol Lactate (Haldol Inj) 5 mg PRN Q6HRS PRN IVP AGITATION Last administered on 11/05/18 10:11; Start 11/02/18 at 13:15 Vancomycin HCl 1.25 gm/Sodium Chloride 250 ml @ 167 mls/hr Q12H IV Last administered on 11/04/18 01:56; Start 11/03/18 at 01:00; Stop 11/04/18 at 03:47; Status DC Vancomycin HCl (Vancomycin Trough Level) 1 each 1X ONCE MC Last administered on 11/04/18 00:30; Start 11/04/18 at 00:30; Stop 11/04/18 at 00:31; Status DC Clotrimazole (Mycelex) 10 mg 5XDAY MM Last administered on 11/05/18 17:42; Start 11/02/18 at 22:00 Insulin Human Lispro (HumaLOG) 0-5 UNITS QIDACHS SQ Last administered on 11/05/18 16:14; Start 11/02/18 at 21:35 Potassium Chloride/Water 50 ml @ 50 mls/hr Q1H IV Last administered on 11/03/18 09:26; Start 11/03/18 at 08:00; Stop 11/03/18 at 09:59; Status DC Heparin Sodium (Porcine) (Heparin Sodium) 1,400 unit PRN Q6HRS PRN IV FOR UFH LEVEL 0.2 - 0.29 Last administered on 11/04/18 07:41; Start 11/03/18 at 10:00 Potassium Chloride (KCl Oral Soln) 10 meq DAILY PEG Last administered on 11/05/18 09:13; Start 11/03/18 at 15:00 Vancomycin HCl 1.25 gm/Sodium Chloride 250 ml @ 167 mls/hr Q18H IV Last administered on 11/04/18 21:52; Start 11/04/18 at 20:00; Stop 11/05/18 at 13:16; Status DC Vancomycin HCl (Vancomycin Trough Level) 1 each 1X ONCE MC ; Start 11/05/18 at 13:30; Stop 11/05/18 at 13:30; Status DC Apixaban (Eliquis) 5 mg BID PO Last administered on 11/04/18at 09:00; Start 11/04/18 at 09:00; Stop 11/04/18 at 16:09; Status DC Apixaban (Eliquis) 10 mg BID PO Last administered on 11/05/18at 09:10; Start 11/04/18 at 21:00; Stop 11/11/18 at 09:01 Apixaban (Eliquis) 5 mg BID PO ; Start 11/11/18 at 21:00 Active Scripts Active Reported Pepcid (Famotidine) 20 Mg Tablet 20 Mg PO BID Albuterol Sulfate Neb Soln (Albuterol Sulfate) 2.5 Mg/3 Ml Vial.neb 2.5 Mg NEB [id number] Hydralazine Hcl 10 Mg Tablet 10 Mg IV PRN Q4HRS PRN Amlodipine Besylate 5 Mg Tablet 5 Mg PO DAILY Miralax (Polyethylene Glycol 3350) 17 Gm Powd.pack 1 Packet PO DAILY Zofran (Ondansetron Hcl) 4 Mg Tablet 1 Tab IV Q6HRS Reglan (Metoclopramide Hcl) 10 Mg Tablet 10 Mg PO QIDACHS Lorazepam 1 Mg Tablet 1 Tab PO PRN Q6HRS PRN Lantus (Insulin Glargine,Hum.rec.anlog) 100 Unit/1 Ml Vial 10 Unit SQ HS Hydrocodone-Acetamin 5-325 mg (Hydrocodone/Acetaminophen) 1 Each Tablet 1 Each PO PRN Q6HRS PRN Lasix (Furosemide) 40 Mg Tablet 40 Mg IV DAILY PRN Fluconazole 100 Mg Tablet 1 Tab PO DAILY Pulmicort (Budesonide) 0.5 Mg/2 Ml Ampul.neb 1 Vial NEB BID Bisacodyl 10 Mg Supp.rect 10 Mg RC PRN DAILY PRN Proair Hfa (Albuterol Sulfate) 8.5 Gm Hfa.aer.ad 1 Puff INH PRN Q6HRS PRN Oxazepam 30 Mg Capsule 30 Mg PO QHS Vitals/I & O Vital Sign - Last 24 Hours 11/04/18 11/04/18 11/04/18 11/04/18 18:00 19:00 20:00 20:00 Temp 98.5 98.5 Pulse 73 101 78 Resp 18 26 23 B/P (MAP) 112/52 (72) 175/68 (103) 132/91 (105) Pulse Ox 98 96 97 O2 Delivery Ventilator Ventilator Mechanical Ventilator Ventilator 11/04/18 11/04/18 11/04/18 11/04/18 20:08 21:00 21:42 22:00 Pulse 102 78 93 Resp 23 23 B/P (MAP) 176/69 (104) 172/117 176/69 (104) Pulse Ox 97 97 97 O2 Delivery Ventilator Ventilator Ventilator 11/04/18 11/04/18 11/04/18 11/05/18 23:00 23:57 23:59 00:01 Temp 98.4 98.4 Pulse 89 92 Resp 23 23 B/P (MAP) 102/56 (71) 150/57 (88) Pulse Ox 97 97 97 O2 Delivery Ventilator Ventilator Mechanical Ventilator Ventilator 11/05/18 11/05/18 11/05/18 11/05/18 00:56 01:00 01:56 02:00 Pulse 100 100 Resp 22 21 21 21 B/P (MAP) 161/74 (103) 143/30 (67) Pulse Ox 97 97 99 99 O2 Delivery Ventilator Ventilator O2 Flow Rate 40.0 40.0 11/05/18 11/05/18 11/05/18 11/05/18 02:10 03:00 04:00 04:00 Temp 98.4 98.4 Pulse 81 81 Resp 18 18 B/P (MAP) 103/54 (70) 119/54 (75) Pulse Ox 97 100 97 O2 Delivery Ventilator Ventilator Ventilator Mechanical Ventilator 11/05/18 11/05/18 11/05/18 11/05/18 04:25 05:00 06:00 07:00 Pulse 79 83 76 Resp 18 20 22 B/P (MAP) 134/64 (87) 136/61 (86) 142/75 (97) Pulse Ox 97 100 99 100 O2 Delivery Ventilator Ventilator Ventilator Ventilator 11/05/18 11/05/18 11/05/18 11/05/18 07:51 08:00 08:00 08:00 Temp 98.5 98.5 Pulse 86 Resp 32 B/P (MAP) 154/80 (104) Pulse Ox 100 99 O2 Delivery Ventilator Mechanical Ventilator Ventilator Ventilator 11/05/18 11/05/18 11/05/18 11/05/18 09:00 09:10 10:00 11:00 Pulse 101 99 90 89 Resp 35 19 19 B/P (MAP) 183/54 (97) 188/76 140/63 (88) 126/58 (80) Pulse Ox 93 95 96 O2 Delivery Ventilator Ventilator Ventilator 11/05/18 11/05/18 11/05/18 11/05/18 12:00 12:00 12:08 13:00 Temp 98.2 98.2 Pulse 89 74 Resp 26 18 B/P (MAP) 171/71 (104) 90/40 (57) Pulse Ox 98 97 96 O2 Delivery Mechanical Ventilator Ventilator Ventilator Ventilator 11/05/18 11/05/18 11/05/18 11/05/18 13:40 14:00 15:00 15:55 Pulse 78 84 Resp 10 18 B/P (MAP) 109/56 (73) 115/44 (67) Pulse Ox 96 96 97 97 O2 Delivery Ventilator Ventilator Ventilator Ventilator 11/05/18 11/05/18 11/05/18 11/05/18 16:00 16:00 16:13 17:00 Temp 98.3 98.3 Pulse 100 99 Resp 36 34 B/P (MAP) 180/78 (112) 163/71 (101) Pulse Ox 97 100 97 O2 Delivery Ventilator Mechanical Ventilator Ventilator Ventilator 11/05/18 17:23 Pulse Ox 96 O2 Delivery Ventilator Intake and Output 11/04/18 11/04/18 11/05/18 15:00 23:00 07:00 Intake Total 300 ml 1358 ml 1552 ml Output Total 395 ml 405 ml 490 ml Balance -95 ml 953 ml 1062 ml MIKO JEFFERSON MD Nov 05, 2018 17:45
[2018-11-05] MEDS: LORazepam 1 MG TABLET PO SCH (21:10)
[2018-11-05] MEDS: LISINOPRIL 5 MG TABLET. PO SCH (21:10)
[2018-11-05] MEDS: INSULIN GLARGINE 300 UNITS/3 ML INSULN.PEN. SQ SCH (21:22)
[2018-11-05] MEDS: diphenhydrAMINE 50 MG/ML VIAL IVP PRN (23:10)
[2018-11-05] MEDS: hydrALAZINE 20 MG/ML VIAL. IVP PRN (23:26)
[2018-11-06] VITALS (25 sets, daily range): BP systolic 104–186; BP diastolic 51–112
[2018-11-06] MEDS: MEROPENEM 500 MG in IV NORMAL SALINE 50ML 50 ML IV SCH ×5 (00:12→23:42)
[2018-11-06] MEDS: HYDROcodone/APAP 5/325MG 1 TAB TABLET PO PRN ×2 (01:19→21:24)
[2018-11-06] MEDS: HALOPERIDOL LACTATE 5 MG/ML VIAL. IVP PRN ×2 (04:08→10:28)
[2018-11-06] MEDS: CLOTRIMAZOLE 10 MG TROCHE. MM SCH ×5 (05:50→22:00)
[2018-11-06] MEDS: hydrALAZINE 20 MG/ML VIAL. IVP PRN (06:26)
[2018-11-06] MEDS: diphenhydrAMINE 50 MG/ML VIAL IVP PRN ×3 (07:20→23:42)
[2018-11-06] MEDS: INSULIN LISPRO 300 UNITS/3 ML INSULN.PEN. SQ SCH ×4 (07:30→21:17)
[2018-11-06] MEDS: ALBUTEROL SULFATE 2.5 MG/3 ML NEBU. NEB SCH ×4 (07:34→19:44)
[2018-11-06] MEDS: BUDESONIDE 0.5 MG/2 ML NEBU. NEB SCH ×2 (07:34→19:43)
--- NOTE | 2018-11-06 07:57 | PDOC ---
Infectious Disease Note Subjective Subjective Intubated via trach, FiO2 40% No fevers last 48 hours Tube feedings via PEG 65 ml/hr ROS ROS no n/v/d/ Vital Sign Vital Signs Vital Signs Date Time Temp Pulse Resp B/P (MAP) Pulse Ox O2 Delivery O2 Flow Rate FiO2 11/06/18 07:34 98 Ventilator 11/06/18 06:26 98 186/79 11/06/18 06:00 24 11/06/18 04:00 98.6 98.6 11/06/18 01:19 40.0 Physical Exam PHYSICAL EXAM GENERAL: Opens eyes to name HEENT: Pupils equal, oral cavity pink NECK: Trach/vent LUNGS: Mechanical breath sounds CARDIOVASCULAR: S1, S2 irregular ABDOMEN: Soft, nontender, nondistended. PEG : Jeffers in place EXTREMITIES: No clubbing, cyanosis. Minimal edema. SCDs NEUROLOGIC: Opens eyes to name and mouth when asked, sleepy RUE-PICC without signs of any complications Labs Lab Laboratory Tests Test 11/05/18 09:30 O2 Saturation 90 % (92-99) Arterial Blood pH 7.30 (7.35-7.45) Arterial Blood pCO2 at Patient Temp 76 mmHg (35-46) Arterial Blood pO2 at Patient Temp 68 mmHg (65-108) Arterial Blood HCO3 36 mmol/L (21-28) Arterial Blood Base Excess 8 mmol/L (-3-3) FiO2 35 Micro BLOOD CULTURE LC Final Final report BLD CULT RESULT 1 Final Enterococcus faecium GENTAMICIN =S STREPTOMYCIN = R ANTIMICROBIAL SUSCEPTIBILITY Final Comment S = Susceptible; I = Intermediate; R = Resistant P = Positive; N = Negative MICS are expressed in micrograms per mL Antibiotic RSLT#1 RSLT#2 RSLT#3 RSLT#4 Penicillin R>=64 Vancomycin S<=0.5 Performed at: - [facility] [address], [place], [place] [id number] Rake Operator: MICHELE Cesar MD, Phone: [phone] Objective Assessment Sepsis with Strep spp bacteremia (2 of 4 bottles) POA 11/01, enterococcus PSAE (sims-S) sputum 11/01 ? true infection vs colonization UTI w/ growth PSAE (sims-S) PCN allergy w/ hives and throat swelling; erythromycin allergy w/ hives Leukocytosis - bands better H/o Bradycardia [id number] hypercapnic hypoxemic respiratory failure. Acute pulmonary embolism. 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 History of alcoholism. Plan Plan of Care meropenem (11/02) zyvox Monitor for abx toxicities/side effects May need PICC change depending on Cults May need goals of therapy eval prognosis poor D/w nursing JEANNE WRAY MD Nov 06, 2018 07:57
[2018-11-06] MEDS: POLYETHYLENE GLYCOL 3350 17 GM PACKET. PO SCH (09:00)
--- NOTE | 2018-11-06 09:04 | PDOC ---
PROGRESS NOTES Chief Complaint Chief Complaint Sepsis, + blood cultures for enterococcus faecium and urine culture positive for pseudomonas Acute pulmonary embolism, changed to eliquis History of alcoholism and tobacco use. Acute on chronic hypercapnic and hypoxic respiratory failure s/p Trach and PEG End-stage COPD MORBID OBESITY UTI - previously Staphylococcus saprophyticus. Now pseudomonas - Greater than 100,000 colony forming units per mL Azotemia Large left staghorn calculus ICU deconditioning Severe protein calorie malnutrition History of Present Illness History of Present Illness Mr Lewis is a 78 yo M w/ PMHx COPD O2 dependent, ex-smoker, ex-ETOH user admitted initially on October 07, after being found down unresponsive. He failed several weaning trials and is s/p tracheostomy and PEG placement on 10/17/2018 and was discharged to LTAC on 10/27/18 and readmitted with worsening respiratory distress with concern for PTX due to his severe COPD, however, was found with small right lower pulmonary embolus and admitted for further care. cont care in ICU - he is more alert and responsive now cont current broad abx, cont the supportive care may be able to return to LTAC - ID following blood cx Vitals Vitals Vital Signs Date Time Temp Pulse Resp B/P (MAP) Pulse Ox O2 Delivery O2 Flow Rate FiO2 11/06/18 07:34 98 Ventilator 11/06/18 06:26 98 186/79 11/06/18 06:00 24 11/06/18 04:00 98.6 98.6 11/06/18 01:19 40.0 Physical Exam Physical Exam GENERAL: Opens eyes to name HEENT: Pupils equal, oral cavity pink NECK: Trach/vent LUNGS: Mechanical breath sounds CARDIOVASCULAR: S1, S2 irregular ABDOMEN: Soft, nontender, nondistended. PEG : Jeffers in place EXTREMITIES: No clubbing, cyanosis. Minimal edema. SCDs NEUROLOGIC: Opens eyes to name and mouth when asked, sleepy RUE-PICC without signs of any complications General: Alert, Cooperative, No acute distress, Other (lethargic) Heart: Regular rate (Sinus tach), No murmurs Lungs: Crackles Abdomen: Soft, Other (obese; PEG) Extremities: No cyanosis, Other (2+ bilateral LE pitting edema) Skin: No breakdown, No significant lesion Labs LABS Laboratory Tests Test 11/05/18 09:30 O2 Saturation 90 % (92-99) Arterial Blood pH 7.30 (7.35-7.45) Arterial Blood pCO2 at Patient Temp 76 mmHg (35-46) Arterial Blood pO2 at Patient Temp 68 mmHg (65-108) Arterial Blood HCO3 36 mmol/L (21-28) Arterial Blood Base Excess 8 mmol/L (-3-3) FiO2 35 Assessment and Plan Assessmemt and Plan Problems Medical Problems: (1) Dyspnea Status: Acute (2) Respiratory failure Status: Acute (3) Upper leg DVT (deep venous thromboembolism), acute Status: Acute Comment Review of Relevant I have reviewed the following items akbar (where applicable) has been applied. Labs Laboratory Tests Test 11/04/18 09:03 11/05/18 06:30 11/05/18 09:30 O2 Saturation 96 % (92-99) 90 % (92-99) Arterial Blood pH 7.38 (7.35-7.45) 7.30 (7.35-7.45) Arterial Blood pCO2 at Patient Temp 63 mmHg (35-46) 76 mmHg (35-46) Arterial Blood pO2 at Patient Temp 85 mmHg (65-108) 68 mmHg (65-108) Arterial Blood HCO3 36 mmol/L (21-28) 36 mmol/L (21-28) Arterial Blood Base Excess 9 mmol/L (-3-3) 8 mmol/L (-3-3) FiO2 40 35 White Blood Count 10.7 x10^3/uL (4.0-11.0) Red Blood Count 2.53 x10^6/uL (4.30-5.70) Hemoglobin 7.6 g/dL (13.0-17.5) Hematocrit 23.6 % (39.0-53.0) Mean Corpuscular Volume 93 fL (79-100) Mean Corpuscular Hemoglobin 30 pg (25-35) Mean Corpuscular Hemoglobin Concent 32 g/dL (31-37) Red Cell Distribution Width 16.9 % (11.5-14.5) Platelet Count 268 x10^3/uL (140-400) Neutrophils (%) (Auto) 83 % (31-73) Lymphocytes (%) (Auto) 10 % (24-48) Monocytes (%) (Auto) 6 % (0-9) Eosinophils (%) (Auto) 1 % (0-3) Basophils (%) (Auto) 0 % (0-3) Neutrophils # (Auto) 8.8 x10^3uL (1.8-7.7) Lymphocytes # (Auto) 1.0 x10^3/uL (1.0-4.8) Monocytes # (Auto) 0.7 x10^3/uL (0.0-1.1) Eosinophils # (Auto) 0.1 x10^3/uL (0.0-0.7) Basophils # (Auto) 0.0 x10^3/uL (0.0-0.2) Sodium Level 136 mmol/L (136-145) Potassium Level 4.2 mmol/L (3.5-5.1) Chloride Level 99 mmol/L (98-107) Carbon Dioxide Level 36 mmol/L (21-32) Anion Gap 1 (6-14) Blood Urea Nitrogen 31 mg/dL (8-26) Creatinine 1.0 mg/dL (0.7-1.3) Estimated GFR (Cockcroft-Gault) 72.6 BUN/Creatinine Ratio 31 (6-20) Glucose Level 206 mg/dL (70-99) Calcium Level 8.7 mg/dL (8.5-10.1) Total Bilirubin 0.2 mg/dL (0.2-1.0) Aspartate Amino Transf (AST/SGOT) 15 U/L (15-37) Alanine Aminotransferase (ALT/SGPT) 22 U/L (16-63) Alkaline Phosphatase 72 U/L (46-116) Total Protein 5.7 g/dL (6.4-8.2) Albumin 1.7 g/dL (3.4-5.0) Albumin/Globulin Ratio 0.4 (1.0-1.7) Laboratory Tests Test 11/05/18 09:30 O2 Saturation 90 % (92-99) Arterial Blood pH 7.30 (7.35-7.45) Arterial Blood pCO2 at Patient Temp 76 mmHg (35-46) Arterial Blood pO2 at Patient Temp 68 mmHg (65-108) Arterial Blood HCO3 36 mmol/L (21-28) Arterial Blood Base Excess 8 mmol/L (-3-3) FiO2 35 Microbiology 11/01/18 Blood Culture - Final, Complete NO GROWTH AFTER 5 DAYS 11/01/18 - Final, Complete 11/01/18 - Final, Complete 11/01/18 - Final, Complete 11/01/18 Gram Stain Evaluation - Final, Complete 11/01/18 Sputum Culture - Final, Complete 11/01/18 Sputum Result 1 - Final, Complete 11/01/18 Antimicrobic Susceptibility - Final, Complete 11/01/18 Urine Culture - Final, Complete 11/01/18 Urine Culture Result 1 (ELEN) - Final, Complete 11/01/18 Antimicrobic Susceptibility - Final, Complete Medications Current Medications Albuterol/ Ipratropium (Duoneb) 3 ml 1X ONCE NEB Last administered on 11/01/18at 06:10; Start 11/01/18 at 06:30; Stop 11/01/18 at 06:31; Status DC Albuterol/ Ipratropium (Duoneb) 3 ml 1X ONCE NEB Last administered on 11/01/18at 06:10; Start 11/01/18 at 06:30; Stop 11/01/18 at 06:31; Status DC Sodium Chloride 1,000 ml @ 1,000 mls/hr Q1H IV Last administered on 11/01/18at 06:40; Start 11/01/18 at 06:30; Stop 11/01/18 at 07:29; Status DC Iohexol (Omnipaque 350 Mg/ml) 90 ml 1X ONCE IV Last administered on 11/01/18at 07:44; Start 11/01/18 at 07:15; Stop 11/01/18 at 07:16; Status DC Info (CONTRAST GIVEN -- Rx MONITORING) 1 each PRN DAILY PRN MC SEE COMMENTS; Start 11/01/18 at 07:15; Stop 11/03/18 at 07:14; Status DC Heparin Sodium (Porcine) (Heparin Sodium) 8,000 unit 1X ONCE IV Last administered on 11/01/18at 08:17; Start 11/01/18 at 08:00; Stop 11/01/18 at 08:01; Status DC Heparin Sodium/ Dextrose 500 ml @ 0 mls/hr CONT PRN IV SEE I/O RECORD Last administered on 11/03/18at 19:49; Start 11/01/18 at 08:00; Stop 11/04/18 at 08:37; Status DC Albuterol Sulfate (Ventolin Neb Soln) 2.5 mg RTQID NEB Last administered on 07:34; Start 11/01/18 at 12:00 Albuterol Sulfate (Ventolin Neb Soln) 2.5 mg PRN Q6HRS PRN INH SHORTNESS OF BREATH; Start 11/01/18 at 10:15 Amlodipine Besylate (Norvasc) 5 mg DAILY PO Last administered on 11/05/18 09:10; Start 11/01/18 at 11:00 Budesonide (Pulmicort) 0.5 mg RTBID NEB Last administered on 11/06/18 07:34; Start 11/01/18 at 11:00 Famotidine (Pepcid) 20 mg BID PO Last administered on 11/05/18 21:09; Start 11/01/18 at 11:00 Furosemide (Lasix) 40 mg PRN DAILY PRN PO FLUID RETENTION; Start 11/01/18 at 10:15; Stop 11/01/18 at 14:02; Status DC Acetaminophen/ Hydrocodone Bitart (Lortab 5/325) 1 tab PRN Q6HRS PRN PO PAIN Last administered on 11/06/18 01:19; Start 11/01/18 at 10:15 Lorazepam (Ativan) 1 mg PRN Q6HRS PRN PO ANXIETY / AGITATION Last administered on 11/05/18 00:56; Start 11/01/18 at 10:15 Metoclopramide HCl (Reglan) 10 mg QIDACHS PO Last administered on 11/05/18 21:09; Start 11/01/18 at 11:30 Bisacodyl (Dulcolax Supp) 10 mg PRN DAILY PRN MO CONSTIPATION; Start 11/01/18 at 10:30 Hydralazine HCl (Apresoline Inj) 10 mg PRN Q4HRS PRN IVP HYPERTENSION Last administered on 11/06/18 06:26; Start 11/01/18 at 10:30 Insulin Glargine (Lantus) 10 units QHS SQ Last administered on 11/05/18 21:22; Start 11/01/18 at 21:00 Ondansetron HCl (Zofran) 4 mg PRN Q6HRS PRN IV NAUSEA/VOMITING; Start 11/01/18 at 10:30 Lorazepam (Ativan) 2 mg QHS PO Last administered on 11/05/18 21:10; Start 11/01/18 at 21:00 Polyethylene Glycol (miraLAX PACKET) 17 gm DAILY PO Last administered on 11/03/18 09:25; Start 11/01/18 at 11:00 Info (Anti-Coagulation Monitoring By Pharmacy) 1 each PRN DAILY PRN MC SEE COMMENTS Last administered on 11/02/18 10:56; Start 11/01/18 at 10:45 Insulin Human Lispro (HumaLOG) 0-5 UNITS TIDWMEALS SQ Last administered on 11/02/18 18:40; Start 11/01/18 at 12:00; Stop 11/02/18 at 21:37; Status DC Dextrose (Dextrose 50%-Water Syringe) 12.5 gm PRN Q15MIN PRN IV SEE COMMENTS; Start 11/01/18 at 10:15 Furosemide (Lasix) 40 mg DAILY PO Last administered on 11/05/18 09:11; Start 11/01/18 at 14:15 Diphenhydramine HCl (Benadryl) 25 mg PRN Q6HRS PRN IVP ITCHING Last administered on 11/06/18 07:20; Start 11/01/18 at 19:45 Lorazepam (Ativan Inj) 0.5 mg 1X ONCE IV Last administered on 11/02/18 10:27; Start 11/02/18 at 10:15; Stop 11/02/18 at 10:16; Status DC Vancomycin HCl (Vanco Per Pharmacy) 1 each PRN DAILY PRN MC SEE COMMENTS Last administered on 11/04/18 16:14; Start 11/02/18 at 12:30; Stop 11/05/18 at 13:28; Status DC Meropenem 500 mg/ Sodium Chloride 50 ml @ 100 mls/hr Q6HRS IV Last administered on 11/06/18 05:50; Start 11/02/18 at 13:00 Vancomycin HCl 2 gm/Sodium Chloride 500 ml @ 250 mls/hr 1X ONCE IV Last administered on 11/02/18 13:26; Start 11/02/18 at 13:00; Stop 11/02/18 at 14:59; Status DC Lisinopril (Prinivil) 5 mg QHS PO Last administered on 11/05/18 21:10; Start 11/02/18 at 21:00 Haloperidol Lactate (Haldol Inj) 5 mg PRN Q6HRS PRN IVP AGITATION Last administered on 11/06/18 04:08; Start 11/02/18 at 13:15 Vancomycin HCl 1.25 gm/Sodium Chloride 250 ml @ 167 mls/hr Q12H IV Last administered on 11/04/18 01:56; Start 11/03/18 at 01:00; Stop 11/04/18 at 03:47; Status DC Vancomycin HCl (Vancomycin Trough Level) 1 each 1X ONCE MC Last administered on 11/04/18 00:30; Start 11/04/18 at 00:30; Stop 11/04/18 at 00:31; Status DC Clotrimazole (Mycelex) 10 mg 5XDAY MM Last administered on 11/06/18 05:50; Start 11/02/18 at 22:00 Insulin Human Lispro (HumaLOG) 0-5 UNITS QIDACHS SQ Last administered on 11/05/18 21:15; Start 11/02/18 at 21:35 Potassium Chloride/Water 50 ml @ 50 mls/hr Q1H IV Last administered on 11/03/18 09:26; Start 11/03/18 at 08:00; Stop 11/03/18 at 09:59; Status DC Heparin Sodium (Porcine) (Heparin Sodium) 1,400 unit PRN Q6HRS PRN IV FOR UFH LEVEL 0.2 - 0.29 Last administered on 11/04/18 07:41; Start 11/03/18 at 10:00 Potassium Chloride (KCl Oral Soln) 10 meq DAILY PEG Last administered on 11/05/18 09:13; Start 11/03/18 at 15:00 Vancomycin HCl 1.25 gm/Sodium Chloride 250 ml @ 167 mls/hr Q18H IV Last administered on 11/04/18 21:52; Start 11/04/18 at 20:00; Stop 11/05/18 at 13:16; Status DC Vancomycin HCl (Vancomycin Trough Level) 1 each 1X ONCE MC ; Start 11/05/18 at 13:30; Stop 11/05/18 at 13:30; Status DC Apixaban (Eliquis) 5 mg BID PO Last administered on 6/8/19at 09:00; Start 11/04/18 at 09:00; Stop 11/04/18 at 16:09; Status DC Apixaban (Eliquis) 10 mg BID PO Last administered on 11/05/18at 21:09; Start 11/04/18 at 21:00; Stop 11/11/18 at 09:01 Apixaban (Eliquis) 5 mg BID PO ; Start 11/11/18 at 21:00 Linezolid/Dextrose 300 ml @ 300 mls/hr Q12HR IV ; Start 11/06/18 at 09:00 Active Scripts Active Reported Pepcid (Famotidine) 20 Mg Tablet 20 Mg PO BID Albuterol Sulfate Neb Soln (Albuterol Sulfate) 2.5 Mg/3 Ml Vial.neb 2.5 Mg NEB [id number] Hydralazine Hcl 10 Mg Tablet 10 Mg IV PRN Q4HRS PRN Amlodipine Besylate 5 Mg Tablet 5 Mg PO DAILY Miralax (Polyethylene Glycol 3350) 17 Gm Powd.pack 1 Packet PO DAILY Zofran (Ondansetron Hcl) 4 Mg Tablet 1 Tab IV Q6HRS Reglan (Metoclopramide Hcl) 10 Mg Tablet 10 Mg PO QIDACHS Lorazepam 1 Mg Tablet 1 Tab PO PRN Q6HRS PRN Lantus (Insulin Glargine,Hum.rec.anlog) 100 Unit/1 Ml Vial 10 Unit SQ HS Hydrocodone-Acetamin 5-325 mg (Hydrocodone/Acetaminophen) 1 Each Tablet 1 Each PO PRN Q6HRS PRN Lasix (Furosemide) 40 Mg Tablet 40 Mg IV DAILY PRN Fluconazole 100 Mg Tablet 1 Tab PO DAILY Pulmicort (Budesonide) 0.5 Mg/2 Ml Ampul.neb 1 Vial NEB BID Bisacodyl 10 Mg Supp.rect 10 Mg RC PRN DAILY PRN Proair Hfa (Albuterol Sulfate) 8.5 Gm Hfa.aer.ad 1 Puff INH PRN Q6HRS PRN Oxazepam 30 Mg Capsule 30 Mg PO QHS Vitals/I & O Vital Sign - Last 24 Hours 11/05/18 11/05/18 11/05/18 11/05/18 09:00 09:10 10:00 11:00 Pulse 101 99 90 89 Resp 35 19 19 B/P (MAP) 183/54 (97) 188/76 140/63 (88) 126/58 (80) Pulse Ox 93 95 96 O2 Delivery Ventilator Ventilator Ventilator 11/05/18 11/05/18 11/05/18 11/05/18 12:00 12:00 12:08 13:00 Temp 98.2 98.2 Pulse 89 74 Resp 26 18 B/P (MAP) 171/71 (104) 90/40 (57) Pulse Ox 98 97 96 O2 Delivery Mechanical Ventilator Ventilator Ventilator Ventilator 11/05/18 11/05/18 11/05/18 11/05/18 13:40 14:00 15:00 15:55 Pulse 78 84 Resp 10 18 B/P (MAP) 109/56 (73) 115/44 (67) Pulse Ox 96 96 97 97 O2 Delivery Ventilator Ventilator Ventilator Ventilator 11/05/18 11/05/18 11/05/18 11/05/18 16:00 16:00 16:13 17:00 Temp 98.3 98.3 Pulse 100 99 Resp 36 34 B/P (MAP) 180/78 (112) 163/71 (101) Pulse Ox 97 100 97 O2 Delivery Ventilator Mechanical Ventilator Ventilator Ventilator 11/05/18 11/05/18 11/05/18 11/05/18 17:23 18:00 19:00 20:00 Pulse 98 100 Resp 20 26 B/P (MAP) 108/57 (74) 162/75 (104) Pulse Ox 96 97 100 O2 Delivery Ventilator Ventilator Ventilator Mechanical Ventilator 11/05/18 11/05/18 11/05/18 11/05/18 20:00 20:11 20:13 21:00 Temp 98.3 98.3 Pulse 100 100 Resp 24 24 B/P (MAP) 182/75 (110) 125/76 (92) Pulse Ox 100 98 98 100 O2 Delivery Ventilator Ventilator Ventilator Ventilator 11/05/18 11/05/18 11/05/18 11/05/18 21:10 22:00 23:00 23:26 Pulse 97 96 96 98 Resp 22 28 B/P (MAP) 125/76 170/75 (106) 175/54 (94) 175/54 Pulse Ox 96 96 O2 Delivery Ventilator Ventilator 11/05/18 11/05/18 11/06/18 11/06/18 23:36 23:59 00:00 01:00 Temp 98.3 98.3 Pulse 90 106 Resp 28 28 B/P (MAP) 104/51 (68) 144/71 (95) Pulse Ox 99 100 97 O2 Delivery Ventilator Mechanical Ventilator Ventilator Ventilator 11/06/18 11/06/18 11/06/18 11/06/18 01:19 02:00 02:00 02:19 Pulse 104 Resp 24 24 B/P (MAP) 153/112 (126) Pulse Ox 99 97 99 95 O2 Delivery Ventilator Ventilator Ventilator O2 Flow Rate 40.0 11/06/18 11/06/18 11/06/18 11/06/18 03:00 04:00 04:00 04:14 Temp 98.6 98.6 Pulse 98 98 Resp 24 24 B/P (MAP) 184/96 (125) 166/76 (106) Pulse Ox 97 97 96 O2 Delivery Ventilator Mechanical Ventilator Ventilator Ventilator 11/06/18 11/06/18 11/06/18 11/06/18 05:00 06:00 06:02 06:26 Pulse 93 102 98 Resp 24 24 B/P (MAP) 168/83 (111) 186/79 (114) 186/79 Pulse Ox 99 99 100 O2 Delivery Ventilator Ventilator Ventilator 11/06/18 07:34 Pulse Ox 98 O2 Delivery Ventilator Intake and Output 11/05/18 11/05/18 11/06/18 15:00 23:00 07:00 Intake Total 300 ml 1281 ml 1103 ml Output Total 840 ml 810 ml 890 ml Balance -540 ml 471 ml 213 ml OSMANI STEVENS MD Nov 06, 2018 09:04
[2018-11-06] MEDS: METOCLOPRAMIDE 10 MG TABLET. PO SCH ×4 (09:27→21:31)
[2018-11-06] MEDS: FAMOTIDINE 20 MG TABLET. PO SCH ×2 (09:27→21:31)
[2018-11-06] MEDS: APIXABAN 5 MG TABLET. PO SCH ×2 (09:27→21:29)
[2018-11-06] MEDS: POTASSIUM CHLORIDE 20 MEQ/15 ML ORAL LIQUID. PEG SCH (09:27)
[2018-11-06] MEDS: FUROSEMIDE 40 MG TABLET. PO SCH (09:28)
[2018-11-06] MEDS: LORazepam 1 MG TABLET PO PRN (09:28)
[2018-11-06] MEDS: amLODIPine BESYLATE 5 MG TABLET PO SCH (09:28)
[2018-11-06] MEDS: ANTI-COAG MONITOR BY PHARMACY. MC PRN (09:30)
--- NOTE | 2018-11-06 09:30 | PDOC ---
PULMONARY PROGRESS NOTES Subjective AC MODE Vitals Vital Signs Date Time Temp Pulse Resp B/P (MAP) Pulse Ox O2 Delivery O2 Flow Rate FiO2 11/06/18 09:28 98 186/79 11/06/18 07:34 98 Ventilator 11/06/18 06:00 24 11/06/18 04:00 98.6 98.6 11/06/18 01:19 40.0 Comments ROS UNABLE TO OBTAIN SEC TO CONDITION General: Alert Lungs: Crackles Cardiovascular: S1, S2 Abdomen: Soft, Non-tender, Other (no mass) Neuro Exam: Alert Extremities: Other (edema) Skin: Warm Labs Laboratory Tests Test 11/05/18 06:30 11/05/18 09:30 White Blood Count 10.7 x10^3/uL (4.0-11.0) Red Blood Count 2.53 x10^6/uL (4.30-5.70) Hemoglobin 7.6 g/dL (13.0-17.5) Hematocrit 23.6 % (39.0-53.0) Mean Corpuscular Volume 93 fL (79-100) Mean Corpuscular Hemoglobin 30 pg (25-35) Mean Corpuscular Hemoglobin Concent 32 g/dL (31-37) Red Cell Distribution Width 16.9 % (11.5-14.5) Platelet Count 268 x10^3/uL (140-400) Neutrophils (%) (Auto) 83 % (31-73) Lymphocytes (%) (Auto) 10 % (24-48) Monocytes (%) (Auto) 6 % (0-9) Eosinophils (%) (Auto) 1 % (0-3) Basophils (%) (Auto) 0 % (0-3) Neutrophils # (Auto) 8.8 x10^3uL (1.8-7.7) Lymphocytes # (Auto) 1.0 x10^3/uL (1.0-4.8) Monocytes # (Auto) 0.7 x10^3/uL (0.0-1.1) Eosinophils # (Auto) 0.1 x10^3/uL (0.0-0.7) Basophils # (Auto) 0.0 x10^3/uL (0.0-0.2) Sodium Level 136 mmol/L (136-145) Potassium Level 4.2 mmol/L (3.5-5.1) Chloride Level 99 mmol/L (98-107) Carbon Dioxide Level 36 mmol/L (21-32) Anion Gap 1 (6-14) Blood Urea Nitrogen 31 mg/dL (8-26) Creatinine 1.0 mg/dL (0.7-1.3) Estimated GFR (Cockcroft-Gault) 72.6 BUN/Creatinine Ratio 31 (6-20) Glucose Level 206 mg/dL (70-99) Calcium Level 8.7 mg/dL (8.5-10.1) Total Bilirubin 0.2 mg/dL (0.2-1.0) Aspartate Amino Transf (AST/SGOT) 15 U/L (15-37) Alanine Aminotransferase (ALT/SGPT) 22 U/L (16-63) Alkaline Phosphatase 72 U/L (46-116) Total Protein 5.7 g/dL (6.4-8.2) Albumin 1.7 g/dL (3.4-5.0) Albumin/Globulin Ratio 0.4 (1.0-1.7) O2 Saturation 90 % (92-99) Arterial Blood pH 7.30 (7.35-7.45) Arterial Blood pCO2 at Patient Temp 76 mmHg (35-46) Arterial Blood pO2 at Patient Temp 68 mmHg (65-108) Arterial Blood HCO3 36 mmol/L (21-28) Arterial Blood Base Excess 8 mmol/L (-3-3) FiO2 35 Medications Active Scripts Medications Dose Route/Sig Max Daily Dose Days Date Category Pepcid (Famotidine) 20 Mg Tablet 20 Mg PO BID 11/01/18 Reported Albuterol Sulfate Neb Soln (Albuterol Sulfate) 2.5 Mg/3 Ml Vial.neb 2.5 Mg NEB [id number] 11/01/18 Reported Hydralazine Hcl 10 Mg Tablet 10 Mg IV PRN Q4HRS PRN 11/01/18 Reported Amlodipine Besylate 5 Mg Tablet 5 Mg PO DAILY 11/01/18 Reported Miralax (Polyethylene Glycol 3350) 17 Gm Powd.pack 1 Packet PO DAILY 11/01/18 Reported Zofran (Ondansetron Hcl) 4 Mg Tablet 1 Tab IV Q6HRS 11/01/18 Reported Reglan (Metoclopramide Hcl) 10 Mg Tablet 10 Mg PO QIDACHS 11/01/18 Reported Lorazepam 1 Mg Tablet 1 Tab PO PRN Q6HRS PRN 11/01/18 Reported Lantus (Insulin Glargine,Hum.rec.anlog) 100 Unit/1 Ml Vial 10 Unit SQ HS 11/01/18 Reported Hydrocodone-Acetamin 5-325 mg (Hydrocodone/Acetaminophen) 1 Each Tablet 1 Each PO PRN Q6HRS PRN 11/01/18 Reported Lasix (Furosemide) 40 Mg Tablet 40 Mg IV DAILY PRN 11/01/18 Reported Fluconazole 100 Mg Tablet 1 Tab PO DAILY 11/01/18 Reported Pulmicort (Budesonide) 0.5 Mg/2 Ml Ampul.neb 1 Vial NEB BID 11/01/18 Reported Bisacodyl 10 Mg Supp.rect 10 Mg RC PRN DAILY PRN 11/01/18 Reported Proair Hfa (Albuterol Sulfate) 8.5 Gm Hfa.aer.ad 1 Puff INH PRN Q6HRS PRN 10/07/18 Reported Oxazepam 30 Mg Capsule 30 Mg PO QHS 10/07/[address] reviewed 1. One tiny filling defect in a right lower lobe pulmonary artery is consistent with a tiny pulmonary embolus. 2. Moderate to severe centrilobular emphysema. Patchy mild infiltrates in the bases may reflect atypical pneumonia or mild pulmonary edema. Impression . IMPRESSION: 1. [id number] hypercapnic hypoxemic respiratory failure. 2. Acute pulmonary embolism. 3. Acute exacerbation of chronic obstructive pulmonary disease. 4. History of alcoholism. 5. History of tobacco use. 6. Sepsis with Strep spp bacteremia (2 of 4 bottles) POA 11/01, Micro BLOOD CULTURE Final Final report BLD CULT RESULT 1 Final Enterococcus faecium GENTAMICIN =S STREPTOMYCIN = R ANTIMICROBIAL SUSCEPTIBILITY Final Comment S = Susceptible; I = Intermediate; R = Resistant P = Positive; N = Negative MICS are expressed in micrograms per mL Antibiotic RSLT#1 RSLT#2 RSLT#3 RSLT#4 Penicillin R>=64 Vancomycin S<=0.5 Performed at: - [facility] [address], [place], [place] [id number] Sales Assistant Institutional Sales: MICHELE Cesar MD, Phone: [phone] Plan . WILL CONTINUE SUPPORT PS TOLERATED NUTRITIONAL SUPPORT SELEC OK BY ME Figu[place] ct reviewed will continue support anticoagulation abx per KRISTI Zhao MD Nov 06, 2018 09:30
[2018-11-06 09:45] LABS: BASE EXCESS ABG 10 mmol/L (-3-3); HCO3 ABG 36 mmol/L (21-28); PCO2 ABG 59 mmHg (35-46); PO2 ABG 79 mmHg (65-108); SAT O2 ABG 95 % (92-99)
[2018-11-06 09:48] LABS: FIO2 ABG 35
[2018-11-06] MEDS ORDERED: FUROSEMIDE 40 MG/4 ML VIAL. IVP ONE (11:15)
[2018-11-06] MEDS ORDERED: METOPROLOL SUCC 24HR ER 25 MG TAB.ER.24H. PO SCH (12:00)
--- NOTE | 2018-11-06 12:11 | NUR ---
SS following up with discharge planning. SS phoned and faxed clinical updates to [facility], ; fax [phone]. Pt accepted at [facility] pending insurance authorization and bed availability.
[2018-11-06] MEDS: LISINOPRIL 5 MG TABLET. PO SCH (21:00)
[2018-11-06] MEDS: INSULIN GLARGINE 300 UNITS/3 ML INSULN.PEN. SQ SCH (21:18)
[2018-11-06] MEDS: LORazepam 1 MG TABLET PO SCH (21:24)
[2018-11-06] MEDS: METOPROLOL TART IMMED RELEASE 25 MG TABLET. PO SCH (21:30)
--- NOTE | 2018-11-06 21:30 | PDOC ---
CARDIOLOGY PROGRESS NOTE SUBJECTIVE: No new events OBJECTIVE: Vital SIgns: Vital Signs Date Time Temp Pulse Resp B/P (MAP) Pulse Ox O2 Delivery O2 Flow Rate FiO2 11/06/18 20:00 98.2 79 18 130/59 (82) 98 Ventilator 98.2 11/06/18 01:19 40.0 I & O l Intake and Output 11/06/18 06:59 Intake Total 2734 ml Output Total 2585 ml Balance 149 ml Intake IV Total 250 ml Tube Feeding 1984 ml Other 500 ml Output Urine Total 2585 ml Gastric Drainage Total 0 ml # Bowel Movements 1 Objective: Sleepy but responsive edematous soft abd normal heart tones CURRENT MEDICATIONS: Current Medications Medications (Trade) Dose Ordered Sig/Eric Start Time Stop Time Status Last Admin Dose Admin Acetaminophen/ Hydrocodone Bitart (Lortab 5/325) 1 tab PRN Q6HRS PRN 11/01/18 10:15 11/06/18 01:19 1 TAB Albuterol Sulfate (Ventolin Neb Soln) 2.5 mg PRN Q6HRS PRN 11/01/18 10:15 Albuterol/ Ipratropium (Duoneb) 3 ml 1X ONCE 11/01/18 06:30 11/01/18 06:31 DC 11/01/18 06:10 3 ML Amlodipine Besylate (Norvasc) 5 mg DAILY 11/01/18 11:00 11/06/18 09:28 5 MG Apixaban (Eliquis) 5 mg BID 11/11/18 21:00 Bisacodyl (Dulcolax Supp) 10 mg PRN DAILY PRN 11/01/18 10:30 Budesonide (Pulmicort) 0.5 mg RTBID 11/01/18 11:00 11/06/18 19:43 0.5 MG Clotrimazole (Mycelex) 10 mg 5XDAY 11/02/18 22:00 11/06/18 09:28 10 MG Dextrose (Dextrose 50%-Water Syringe) 12.5 gm PRN Q15MIN PRN 11/01/18 10:15 Diphenhydramine HCl (Benadryl) 25 mg PRN Q6HRS PRN 11/01/18 19:45 11/06/18 14:42 25 MG Famotidine (Pepcid) 20 mg BID 11/01/18 11:00 11/06/18 09:27 20 MG Furosemide (Lasix) 40 mg 1X ONCE 11/06/18 11:15 11/06/18 11:18 DC 11/06/18 11:35 40 MG Haloperidol Lactate (Haldol Inj) 5 mg PRN Q6HRS PRN 11/02/18 13:15 11/06/18 10:28 5 MG Heparin Sodium (Porcine) (Heparin Sodium) 1,400 unit PRN Q6HRS PRN 11/03/18 10:00 11/06/18 09:17 DC 11/04/18 07:41 1,400 UNIT Heparin Sodium/ Dextrose 500 ml @ 0 mls/hr CONT PRN 11/01/18 08:00 11/04/18 08:37 DC 11/03/18 19:49 27.941 MLS/HR Hydralazine HCl (Apresoline Inj) 10 mg PRN Q4HRS PRN 11/01/18 10:30 11/06/18 06:26 10 MG Info (Anti-Coagulation Monitoring By Pharmacy) 1 each PRN DAILY PRN 11/01/18 10:45 11/06/18 09:30 1 EACH Info (CONTRAST GIVEN -- Rx MONITORING) 1 each PRN DAILY PRN 11/01/18 07:15 11/03/18 07:14 DC Insulin Glargine (Lantus) 10 units QHS 11/01/18 21:00 11/05/18 21:22 10 UNITS Insulin Human Lispro (HumaLOG) 0-5 UNITS QIDACHS 11/02/18 21:35 11/06/18 11:39 3 UNITS Iohexol (Omnipaque 350 Mg/ml) 90 ml 1X ONCE 11/01/18 07:15 11/01/18 07:16 DC 11/01/18 07:44 90 ML Linezolid/Dextrose 300 ml @ 300 mls/hr Q12HR 11/06/18 09:00 11/06/18 09:00 300 MLS/HR Lisinopril (Prinivil) 5 mg QHS 11/02/18 21:00 11/05/18 21:10 5 MG Lorazepam (Ativan Inj) 0.5 mg 1X ONCE 11/02/18 10:15 11/02/18 10:16 DC 11/02/18 10:27 0.5 MG Lorazepam (Ativan) 2 mg QHS 11/01/18 21:00 11/05/18 21:10 2 MG Meropenem 500 mg/ Sodium Chloride 50 ml @ 100 mls/hr Q6HRS 11/02/18 13:00 11/06/18 18:11 100 MLS/HR Metoclopramide HCl (Reglan) 10 mg QIDACHS 11/01/18 11:30 11/06/18 11:35 10 MG Metoprolol Succinate (Toprol Xl) 25 mg DAILY 11/06/18 12:00 Cancel Metoprolol Tartrate (Lopressor) 12.5 mg BID 11/06/18 21:00 Ondansetron HCl (Zofran) 4 mg PRN Q6HRS PRN 11/01/18 10:30 Polyethylene Glycol (miraLAX PACKET) 17 gm DAILY 11/01/18 11:00 11/03/18 09:25 17 GM Potassium Chloride/Water 50 ml @ 50 mls/hr Q1H 11/03/18 08:00 11/03/18 09:59 DC 11/03/18 09:26 50 MLS/HR Potassium Chloride (KCl Oral Soln) 10 meq DAILY 11/03/18 15:00 11/06/18 09:27 10 MEQ Sodium Chloride 1,000 ml @ 1,000 mls/hr Q1H 11/01/18 06:30 11/01/18 07:29 DC 11/01/18 06:40 1,000 MLS/HR Vancomycin HCl (Vanco Per Pharmacy) 1 each PRN DAILY PRN 11/02/18 12:30 11/05/18 13:28 DC 11/04/18 16:14 1 EACH Vancomycin HCl (Vancomycin Trough Level) 1 each 1X ONCE 11/05/18 13:30 11/05/18 13:30 DC Vancomycin HCl 1.25 gm/Sodium Chloride 250 ml @ 167 mls/hr Q18H 11/04/18 20:00 11/05/18 13:16 DC 11/04/18 21:52 167 MLS/HR Vancomycin HCl 2 gm/Sodium Chloride 500 ml @ 250 mls/hr 1X ONCE 11/02/18 13:00 11/02/18 14:59 DC 11/02/18 13:26 250 MLS/HR DIAGNOSTIC TESTING: Labs reviewed ASSESSMENT: 1. PAF 2. DVT/PE 3. Ischemic CMP 4. PNA PLAN: -Meds reviewed. -Will given lasix 40mg IVP today -Start metoprolol 12.5mg bid. Supportive care. Thanks ROXANN MORALES MD Nov 06, 2018 21:30
[2018-11-07] VITALS (11 sets, daily range): BP systolic 108–177; BP diastolic 53–92
[2018-11-07] MEDS: HALOPERIDOL LACTATE 5 MG/ML VIAL. IVP PRN (02:05)
[2018-11-07] MEDS: LORazepam 1 MG TABLET PO PRN (03:00)
[2018-11-07] MEDS: CLOTRIMAZOLE 10 MG TROCHE. MM SCH ×2 (06:00→08:33)
[2018-11-07] MEDS: diphenhydrAMINE 50 MG/ML VIAL IVP PRN (06:01)
[2018-11-07] MEDS: MEROPENEM 500 MG in IV NORMAL SALINE 50ML 50 ML IV SCH (06:04)
[2018-11-07] MEDS: BUDESONIDE 0.5 MG/2 ML NEBU. NEB SCH (08:32)
[2018-11-07] MEDS: POLYETHYLENE GLYCOL 3350 17 GM PACKET. PO SCH (08:32)
[2018-11-07] MEDS: ALBUTEROL SULFATE 2.5 MG/3 ML NEBU. NEB SCH (08:32)
--- NOTE | 2018-11-07 08:32 | PDOC ---
Infectious Disease Note Subjective Subjective Intubated via trach, FiO2 40% No fevers last 48 hours Tube feedings via PEG 65 ml/hr ROS ROS no n/v/d/ Vital Sign Vital Signs Vital Signs Date Time Temp Pulse Resp B/P (MAP) Pulse Ox O2 Delivery O2 Flow Rate FiO2 11/07/18 06:17 90 22 177/67 (103) 98 Ventilator 11/07/18 04:00 98.5 98.5 11/06/18 23:37 40.0 Physical Exam PHYSICAL EXAM GENERAL: Opens eyes to name HEENT: Pupils equal, oral cavity pink NECK: Trach/vent LUNGS: Mechanical breath sounds CARDIOVASCULAR: S1, S2 irregular ABDOMEN: Soft, nontender, nondistended. PEG : Jeffers in place EXTREMITIES: No clubbing, cyanosis. Minimal edema. SCDs NEUROLOGIC: Opens eyes to name and mouth when asked, sleepy RUE-PICC without signs of any complications Labs Lab Laboratory Tests Test 11/06/18 09:30 O2 Saturation 95 % (92-99) Arterial Blood pH 7.40 (7.35-7.45) Arterial Blood pCO2 at Patient Temp 59 mmHg (35-46) Arterial Blood pO2 at Patient Temp 79 mmHg (65-108) Arterial Blood HCO3 36 mmol/L (21-28) Arterial Blood Base Excess 10 mmol/L (-3-3) FiO2 35 Micro BLOOD CULTURE LC Final Final report BLD CULT RESULT 1 Final Enterococcus faecium GENTAMICIN =S STREPTOMYCIN = R ANTIMICROBIAL SUSCEPTIBILITY Final Comment S = Susceptible; I = Intermediate; R = Resistant P = Positive; N = Negative MICS are expressed in micrograms per mL Antibiotic RSLT#1 RSLT#2 RSLT#3 RSLT#4 Penicillin R>=64 Vancomycin S<=0.5 Performed at: [address] [id number] Poultry Boner: MICHELE Cesar MD, Phone: [phone] GRAM STAIN WHITE BLOOD CELLS Final Few GRAM STAIN EPITHELIAL CELLS Final None seen GRAM STAIN RESULT 1 Final Comment Many gram negative rods. GRAM STAIN EVALUATION Final Comment This specimen is of good quality and is acceptable for routine bacterial culture. Performed at: [address] [id number] Poultry Boner: MICHELE Cesar MD, Phone: [phone] SPUTUM CULTURE-LC Final Final report SPUTUM CULT RES 1 Final Comment Pseudomonas aeruginosa 4+ Performed at: DA - [facility] [address], [place], [place] [id number] Poultry Boner: MICHELE Cesar MD, Phone: [phone] ANTIMICROBIAL SUSCEPTIBILITY Final Comment CONTINUED ON NEXT PAGE RUN DATE: 11/04/18 PAGE 2 RUN TIME: 1609 [facility] [address] [place] [address] Saeed Tesfaye M.D., Utilities Equipment Repairer SPEC: [id number] PATIENT: ASHLEIGHJOSLYN [id number] (Continued) --- Procedure Result ANTIMICROBIAL SUSCEPTIBILITY Final (continued) S = Susceptible; I = Intermediate; R = Resistant P = Positive; N = Negative MICS are expressed in micrograms per mL Antibiotic RSLT#1 RSLT#2 RSLT#3 RSLT#4 Amikacin S<=2 Cefepime S =4 Ceftazidime S =4 Ciprofloxacin S<=0.25 Gentamicin S<=1 Imipenem S =2 Levofloxacin S =1 Meropenem S =0.5 Piperacillin S =8 Ticarcillin S =32 Tobramycin S<=1 Performed at: DA - [facility] [address] [facility] [address], [place], [place] [id number] Poultry Boner: MICHELE Cesar MD, Phone: [phone] Objective Assessment Sepsis with Strep spp bacteremia (2 of 4 bottles) POA 11/01, enterococcus PSAE (sims-S) sputum 11/01 ? true infection vs colonization UTI w/ growth PSAE (sims-S) PCN allergy w/ hives and throat swelling; erythromycin allergy w/ hives Leukocytosis - bands better H/o Bradycardia [id number] hypercapnic hypoxemic respiratory failure. Acute pulmonary embolism. 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 History of alcoholism. Plan Plan of Care meropenem (11/02) zyvox Monitor for abx toxicities/side effects prognosis poor D/w nursing JEANNE WRAY MD Nov 07, 2018 08:32
[2018-11-07] MEDS: METOCLOPRAMIDE 10 MG TABLET. PO SCH (08:33)
[2018-11-07] MEDS: FUROSEMIDE 40 MG TABLET. PO SCH (08:33)
[2018-11-07] MEDS: FAMOTIDINE 20 MG TABLET. PO SCH (08:33)
[2018-11-07] MEDS: POTASSIUM CHLORIDE 20 MEQ/15 ML ORAL LIQUID. PEG SCH (08:33)
[2018-11-07] MEDS: APIXABAN 5 MG TABLET. PO SCH (08:34)
[2018-11-07] MEDS: METOPROLOL TART IMMED RELEASE 25 MG TABLET. PO SCH (08:34)
[2018-11-07] MEDS: amLODIPine BESYLATE 5 MG TABLET PO SCH (08:34)
--- NOTE | 2018-11-07 08:35 | PDOC ---
PROGRESS NOTES Chief Complaint Chief Complaint Sepsis, + blood cultures for enterococcus faecium and urine culture positive for pseudomonas Acute pulmonary embolism, changed to eliquis History of alcoholism and tobacco use. Acute on chronic hypercapnic and hypoxic respiratory failure s/p Trach and PEG End-stage COPD MORBID OBESITY UTI - previously Staphylococcus saprophyticus. Now pseudomonas - Greater than 100,000 colony forming units per mL Azotemia Large left staghorn calculus ICU deconditioning Severe protein calorie malnutrition History of Present Illness History of Present Illness Mr Lewis is a 78 yo M w/ PMHx COPD O2 dependent, ex-smoker, ex-ETOH user admitted initially on October 07, after being found down unresponsive. He failed several weaning trials and is s/p tracheostomy and PEG placement on 10/17/2018 and was discharged to LTAC on 10/27/18 and readmitted with worsening respiratory distress with concern for PTX due to his severe COPD, however, was found with small right lower pulmonary embolus and admitted for further care. cont care in ICU - he is more alert and responsive now. Sitting up, comfortable broad abx, cont the supportive care Will be able to return to LTAC - ID following blood cx - will need 2 IV antibiotics based on enterococcal bacteremia and pseudomonal UTI Vitals Vitals Vital Signs Date Time Temp Pulse Resp B/P (MAP) Pulse Ox O2 Delivery O2 Flow Rate FiO2 11/07/18 06:17 90 22 177/67 (103) 98 Ventilator 11/07/18 04:00 98.5 98.5 11/06/18 23:37 40.0 Physical Exam Physical Exam GENERAL: Opens eyes to name HEENT: Pupils equal, oral cavity pink NECK: Trach/vent LUNGS: Mechanical breath sounds CARDIOVASCULAR: S1, S2 irregular ABDOMEN: Soft, nontender, nondistended. PEG : Jeffers in place EXTREMITIES: No clubbing, cyanosis. Minimal edema. SCDs NEUROLOGIC: Opens eyes to name and mouth when asked, sleepy RUE-PICC without signs of any complications General: Alert, Cooperative, No acute distress, Other (lethargic) Heart: Regular rate (Sinus tach), No murmurs Lungs: Crackles Abdomen: Soft, Other (obese; PEG) Extremities: No cyanosis, Other (2+ bilateral LE pitting edema) Skin: No breakdown, No significant lesion Labs LABS Laboratory Tests Test 11/06/18 09:30 O2 Saturation 95 % (92-99) Arterial Blood pH 7.40 (7.35-7.45) Arterial Blood pCO2 at Patient Temp 59 mmHg (35-46) Arterial Blood pO2 at Patient Temp 79 mmHg (65-108) Arterial Blood HCO3 36 mmol/L (21-28) Arterial Blood Base Excess 10 mmol/L (-3-3) FiO2 35 Assessment and Plan Assessmemt and Plan Problems Medical Problems: (1) Dyspnea Status: Acute (2) Respiratory failure Status: Acute (3) Upper leg DVT (deep venous thromboembolism), acute Status: Acute Comment Review of Relevant I have reviewed the following items akbar (where applicable) has been applied. Labs Laboratory Tests Test 11/05/18 09:30 11/06/18 09:30 O2 Saturation 90 % (92-99) 95 % (92-99) Arterial Blood pH 7.30 (7.35-7.45) 7.40 (7.35-7.45) Arterial Blood pCO2 at Patient Temp 76 mmHg (35-46) 59 mmHg (35-46) Arterial Blood pO2 at Patient Temp 68 mmHg (65-108) 79 mmHg (65-108) Arterial Blood HCO3 36 mmol/L (21-28) 36 mmol/L (21-28) Arterial Blood Base Excess 8 mmol/L (-3-3) 10 mmol/L (-3-3) FiO2 35 35 Laboratory Tests Test 11/06/18 09:30 O2 Saturation 95 % (92-99) Arterial Blood pH 7.40 (7.35-7.45) Arterial Blood pCO2 at Patient Temp 59 mmHg (35-46) Arterial Blood pO2 at Patient Temp 79 mmHg (65-108) Arterial Blood HCO3 36 mmol/L (21-28) Arterial Blood Base Excess 10 mmol/L (-3-3) FiO2 35 Microbiology 11/01/18 Blood Culture - Final, Complete NO GROWTH AFTER 5 DAYS 11/01/18 - Final, Complete 11/01/18 - Final, Complete 11/01/18 - Final, Complete 11/01/18 Gram Stain Evaluation - Final, Complete 11/01/18 Sputum Culture - Final, Complete 11/01/18 Sputum Result 1 - Final, Complete 11/01/18 Antimicrobic Susceptibility - Final, Complete 11/01/18 Urine Culture - Final, Complete 11/01/18 Urine Culture Result 1 (ELEN) - Final, Complete 11/01/18 Antimicrobic Susceptibility - Final, Complete Medications Current Medications Albuterol/ Ipratropium (Duoneb) 3 ml 1X ONCE NEB Last administered on 11/01/18at 06:10; Start 11/01/18 at 06:30; Stop 11/01/18 at 06:31; Status DC Albuterol/ Ipratropium (Duoneb) 3 ml 1X ONCE NEB Last administered on 11/01/18at 06:10; Start 11/01/18 at 06:30; Stop 11/01/18 at 06:31; Status DC Sodium Chloride 1,000 ml @ 1,000 mls/hr Q1H IV Last administered on 11/01/18at 06:40; Start 11/01/18 at 06:30; Stop 11/01/18 at 07:29; Status DC Iohexol (Omnipaque 350 Mg/ml) 90 ml 1X ONCE IV Last administered on 11/01/18at 07:44; Start 11/01/18 at 07:15; Stop 11/01/18 at 07:16; Status DC Info (CONTRAST GIVEN -- Rx MONITORING) 1 each PRN DAILY PRN MC SEE COMMENTS; Start 11/01/18 at 07:15; Stop 11/03/18 at 07:14; Status DC Heparin Sodium (Porcine) (Heparin Sodium) 8,000 unit 1X ONCE IV Last admi nistered on 11/01/18at 08:17; Start 11/01/18 at 08:00; Stop 11/01/18 at 08:01; Status DC Heparin Sodium/ Dextrose 500 ml @ 0 mls/hr CONT PRN IV SEE I/O RECORD Last administered on 11/03/18at 19:49; Start 11/01/18 at 08:00; Stop 11/04/18 at 08:37; Status DC Albuterol Sulfate (Ventolin Neb Soln) 2.5 mg RTQID NEB Last administered on 11/06/18at 19:44; Start 11/01/18 at 12:00 Albuterol Sulfate (Ventolin Neb Soln) 2.5 mg PRN Q6HRS PRN INH SHORTNESS OF BREATH; Start 11/01/18 at 10:15 Amlodipine Besylate (Norvasc) 5 mg DAILY PO Last administered on 11/06/18at 09:28; Start 11/01/18 at 11:00 Budesonide (Pulmicort) 0.5 mg RTBID NEB Last administered on 11/06/18 19:43; Start 11/01/18 at 11:00 Famotidine (Pepcid) 20 mg BID PO Last administered on 11/06/18 21:31; Start 11/01/18 at 11:00 Furosemide (Lasix) 40 mg PRN DAILY PRN PO FLUID RETENTION; Start 11/01/18 at 10:15; Stop 11/01/18 at 14:02; Status DC Acetaminophen/ Hydrocodone Bitart (Lortab 5/325) 1 tab PRN Q6HRS PRN PO PAIN Last administered on 11/06/18 21:24; Start 11/01/18 at 10:15 Lorazepam (Ativan) 1 mg PRN Q6HRS PRN PO ANXIETY / AGITATION Last administered on 11/07/18 03:00; Start 11/01/18 at 10:15 Metoclopramide HCl (Reglan) 10 mg QIDACHS PO Last administered on 11/06/18 21:31; Start 11/01/18 at 11:30 Bisacodyl (Dulcolax Supp) 10 mg PRN DAILY PRN NV CONSTIPATION; Start 11/01/18 at 10:30 Hydralazine HCl (Apresoline Inj) 10 mg PRN Q4HRS PRN IVP HYPERTENSION Last administered on 11/06/18 06:26; Start 11/01/18 at 10:30 Insulin Glargine (Lantus) 10 units QHS SQ Last administered on 11/06/18 21:18; Start 11/01/18 at 21:00 Ondansetron HCl (Zofran) 4 mg PRN Q6HRS PRN IV NAUSEA/VOMITING; Start 11/01/18 at 10:30 Lorazepam (Ativan) 2 mg QHS PO Last administered on 11/06/18 21:24; Start 11/01/18 at 21:00 Polyethylene Glycol (miraLAX PACKET) 17 gm DAILY PO Last administered on 11/03/18 09:25; Start 11/01/18 at 11:00 Info (Anti-Coagulation Monitoring By Pharmacy) 1 each PRN DAILY PRN MC SEE COMMENTS Last administered on 11/06/18 09:30; Start 11/01/18 at 10:45 Insulin Human Lispro (HumaLOG) 0-5 UNITS TIDWMEALS SQ Last administered on 11/02/18at 18:40; Start 11/01/18 at 12:00; Stop 11/02/18 at 21:37; Status DC Dextrose (Dextrose 50%-Water Syringe) 12.5 gm PRN Q15MIN PRN IV SEE COMMENTS; Start 11/01/18 at 10:15 Furosemide (Lasix) 40 mg DAILY PO Last administered on 11/06/18at 09:28; Start 11/01/18 at 14:15 Diphenhydramine HCl (Benadryl) 25 mg PRN Q6HRS PRN IVP ITCHING Last administered on 11/07/18 06:01; Start 11/01/18 at 19:45 Lorazepam (Ativan Inj) 0.5 mg 1X ONCE IV Last administered on 11/02/18at 10:27; Start 11/02/18 at 10:15; Stop 11/02/18 at 10:16; Status DC Vancomycin HCl (Vanco Per Pharmacy) 1 each PRN DAILY PRN MC SEE COMMENTS Last administered on 11/04/18at 16:14; Start 11/02/18 at 12:30; Stop 11/05/18 at 13:28; Status DC Meropenem 500 mg/ Sodium Chloride 50 ml @ 100 mls/hr Q6HRS IV Last administered on 11/07/18at 06:04; Start 11/02/18 at 13:00 Vancomycin HCl 2 gm/Sodium Chloride 500 ml @ 250 mls/hr 1X ONCE IV Last administered on 11/02/18at 13:26; Start 11/02/18 at 13:00; Stop 11/02/18 at 14:59; Status DC Lisinopril (Prinivil) 5 mg QHS PO Last administered on 11/06/18at 21:00; Start 11/02/18 at 21:00 Haloperidol Lactate (Haldol Inj) 5 mg PRN Q6HRS PRN IVP AGITATION Last administered on 11/07/18at 02:05; Start 11/02/18 at 13:15 Vancomycin HCl 1.25 gm/Sodium Chloride 250 ml @ 167 mls/hr Q12H IV Last administered on 11/04/18 01:56; Start 11/03/18 at 01:00; Stop 11/04/18 at 03:47; Status DC Vancomycin HCl (Vancomycin Trough Level) 1 each 1X ONCE MC Last administered on 11/04/18 00:30; Start 11/04/18 at 00:30; Stop 11/04/18 at 00:31; Status DC Clotrimazole (Mycelex) 10 mg 5XDAY MM Last administered on 11/07/18 06:00; Start 11/02/18 at 22:00 Insulin Human Lispro (HumaLOG) 0-5 UNITS QIDACHS SQ Last administered on 11/06/18 21:17; Start 11/02/18 at 21:35 Potassium Chloride/Water 50 ml @ 50 mls/hr Q1H IV Last administered on 11/03/18 09:26; Start 11/03/18 at 08:00; Stop 11/03/18 at 09:59; Status DC Heparin Sodium (Porcine) (Heparin Sodium) 1,400 unit PRN Q6HRS PRN IV FOR UFH LEVEL 0.2 - 0.29 Last administered on 11/04/18 07:41; Start 11/03/18 at 10:00; Stop 11/06/18 at 09:17; Status DC Potassium Chloride (KCl Oral Soln) 10 meq DAILY PEG Last administered on 11/06/18 09:27; Start 11/03/18 at 15:00 Vancomycin HCl 1.25 gm/Sodium Chloride 250 ml @ 167 mls/hr Q18H IV Last administered on 11/04/18 21:52; Start 11/04/18 at 20:00; Stop 11/05/18 at 13:16; Status DC Vancomycin HCl (Vancomycin Trough Level) 1 each 1X ONCE MC ; Start 11/05/18 at 13:30; Stop 11/05/18 at 13:30; Status DC Apixaban (Eliquis) 5 mg BID PO Last administered on 11/04/18 09:00; Start 11/04/18 at 09:00; Stop 11/04/18 at 16:09; Status DC Apixaban (Eliquis) 10 mg BID PO Last administered on 11/06/18 21:29; Start 11/04/18 at 21:00; Stop 11/11/18 at 09:01 Apixaban (Eliquis) 5 mg BID PO ; Start 11/11/18 at 21:00 Linezolid/Dextrose 300 ml @ 300 mls/hr Q12HR IV Last administered on 11/06/18at 21:22; Start 11/06/18 at 09:00 Metoprolol Succinate (Toprol Xl) 25 mg DAILY PO ; Start 11/06/18 at 12:00; Status Cancel Furosemide (Lasix) 40 mg 1X ONCE IVP Last administered on 11/06/18at 11:35; Start 11/06/18 at 11:15; Stop 11/06/18 at 11:18; Status DC Metoprolol Tartrate (Lopressor) 12.5 mg BID PO Last administered on 11/06/18at 21:30; Start 11/06/18 at 21:00 Active Scripts Active Reported Pepcid (Famotidine) 20 Mg Tablet 20 Mg PO BID Albuterol Sulfate Neb Soln (Albuterol Sulfate) 2.5 Mg/3 Ml Vial.neb 2.5 Mg NEB [id number] Hydralazine Hcl 10 Mg Tablet 10 Mg IV PRN Q4HRS PRN Amlodipine Besylate 5 Mg Tablet 5 Mg PO DAILY Miralax (Polyethylene Glycol 3350) 17 Gm Powd.pack 1 Packet PO DAILY Zofran (Ondansetron Hcl) 4 Mg Tablet 1 Tab IV Q6HRS Reglan (Metoclopramide Hcl) 10 Mg Tablet 10 Mg PO QIDACHS Lorazepam 1 Mg Tablet 1 Tab PO PRN Q6HRS PRN Lantus (Insulin Glargine,Hum.rec.anlog) 100 Unit/1 Ml Vial 10 Unit SQ HS Hydrocodone-Acetamin 5-325 mg (Hydrocodone/Acetaminophen) 1 Each Tablet 1 Each PO PRN Q6HRS PRN Lasix (Furosemide) 40 Mg Tablet 40 Mg IV DAILY PRN Fluconazole 100 Mg Tablet 1 Tab PO DAILY Pulmicort (Budesonide) 0.5 Mg/2 Ml Ampul.neb 1 Vial NEB BID Bisacodyl 10 Mg Supp.rect 10 Mg RC PRN DAILY PRN Proair Hfa (Albuterol Sulfate) 8.5 Gm Hfa.aer.ad 1 Puff INH PRN Q6HRS PRN Oxazepam 30 Mg Capsule 30 Mg PO QHS Vitals/I & O Vital Sign - Last 24 Hours 11/06/18 11/06/18 11/06/18 11/06/18 09:00 09:28 09:34 10:00 Pulse 102 98 90 Resp 24 24 B/P (MAP) 147/79 (101) 186/79 169/79 (109) Pulse Ox 99 99 99 O2 Delivery Ventilator Ventilator Ventilator 11/06/18 11/06/18 11/06/18 11/06/18 11:00 11:30 12:00 12:00 Pulse 81 81 Resp 24 24 B/P (MAP) 111/79 (90) 111/79 (90) Pulse Ox 99 96 99 O2 Delivery Ventilator Ventilator Mechanical Ventilator Ventilator 11/06/18 11/06/18 11/06/18 11/06/18 13:00 13:25 14:00 15:00 Pulse 95 95 95 Resp 24 24 24 B/P (MAP) 160/90 (113) 140/90 (107) 109/60 (76) Pulse Ox 99 99 99 99 O2 Delivery Ventilator Ventilator Ventilator Ventilator 11/06/18 11/06/18 11/06/18 11/06/18 16:00 16:00 16:30 17:00 Pulse 84 95 Resp 24 24 B/P (MAP) 152/84 (106) 144/90 (108) Pulse Ox 99 99 O2 Delivery Ventilator Mechanical Ventilator Ventilator Ventilator 11/06/18 11/06/18 11/06/18 11/06/18 17:58 18:12 19:00 19:44 Pulse 95 79 Resp 24 18 B/P (MAP) 128/59 (82) 130/59 (82) Pulse Ox 98 99 98 97 O2 Delivery Ventilator Ventilator Ventilator Ventilator 11/06/18 11/06/18 11/06/18 11/06/18 20:00 20:00 21:00 21:00 Temp 98.2 98.2 Pulse 79 22 96 Resp 18 18 B/P (MAP) 130/59 (82) 147/86 147/86 (106) Pulse Ox 98 100 O2 Delivery Mechanical Ventilator Ventilator Ventilator 11/06/18 11/06/18 11/06/18 11/06/18 21:20 21:24 21:30 22:00 Pulse 20 92 Resp 20 22 B/P (MAP) 147/80 145/68 (93) Pulse Ox 97 98 98 O2 Delivery Ventilator Ventilator O2 Flow Rate 40.0 11/06/18 11/06/18 11/06/18 11/06/18 23:00 23:30 23:37 23:59 Temp 98.5 98.5 Pulse 92 85 Resp 22 22 B/P (MAP) 145/68 (93) 127/85 (99) Pulse Ox 98 97 98 98 O2 Delivery Ventilator Ventilator Ventilator O2 Flow Rate 40.0 11/06/18 11/06/18 11/07/18 11/07/18 23:59 23:59 01:00 02:00 Temp 98.5 98.5 Pulse 85 80 78 Resp 22 22 B/P (MAP) 127/85 (99) 140/53 (82) 165/75 (105) Pulse Ox 98 100 98 O2 Delivery Ventilator Mechanical Ventilator Ventilator Ventilator 11/07/18 11/07/18 11/07/18 11/07/18 02:20 03:00 04:00 04:00 Pulse 76 78 Resp B/P (MAP) 123/67 (85) 108/88 (95) Pulse Ox 97 98 100 O2 Delivery Ventilator Ventilator Mechanical Ventilator Ventilator 11/07/18 11/07/18 11/07/18 11/07/18 04:00 04:11 05:15 06:03 Temp 98.5 98.5 Pulse 88 76 Resp 22 B/P (MAP) 145/75 (98) 123/67 (85) Pulse Ox 100 97 98 97 O2 Delivery Ventilator Ventilator Ventilator Ventilator 11/07/18 06:17 Pulse 90 Resp 22 B/P (MAP) 177/67 (103) Pulse Ox 98 O2 Delivery Ventilator Intake and Output 11/06/18 11/06/18 11/07/18 15:00 23:00 07:00 Intake Total 250 ml 2184 ml 890 ml Output Total 1350 ml 900 ml 1265 ml Balance -1100 ml 1284 ml -375 ml OSMANI STEVENS MD Nov 07, 2018 08:35
[2018-11-07 08:39] LABS: BASE EXCESS ABG 13 mmol/L (-3-3); HCO3 ABG 40 mmol/L (21-28); PO2 ABG 84 mmHg (65-108); SAT O2 ABG 95 % (92-99)
[2018-11-07 08:41] LABS: FIO2 ABG 35; PCO2 ABG 66 mmHg (35-46)
[2018-11-07] MEDS: INSULIN LISPRO 300 UNITS/3 ML INSULN.PEN. SQ SCH (08:45)
--- NOTE | 2018-11-07 09:01 | PDOC ---
PULMONARY PROGRESS NOTES Subjective AC MODE Vitals Vital Signs Date Time Temp Pulse Resp B/P (MAP) Pulse Ox O2 Delivery O2 Flow Rate FiO2 11/07/18 08:34 90 132/66 11/07/18 08:31 98 Ventilator 11/07/18 06:17 22 11/07/18 04:00 98.5 98.5 11/06/18 23:37 40.0 Comments ROS UNABLE TO OBTAIN SEC TO CONDITION General: Alert Lungs: Crackles Cardiovascular: S1, S2 Abdomen: Soft, Non-tender, Other (no mass) Neuro Exam: Alert Extremities: Other (edema) Skin: Warm Labs Laboratory Tests Test 11/05/18 09:30 11/06/18 09:30 11/07/18 08:30 O2 Saturation 90 % (92-99) 95 % (92-99) 95 % (92-99) Arterial Blood pH 7.30 (7.35-7.45) 7.40 (7.35-7.45) 7.40 (7.35-7.45) Arterial Blood pCO2 at Patient Temp 76 mmHg (35-46) 59 mmHg (35-46) 66 mmHg (35-46) Arterial Blood pO2 at Patient Temp 68 mmHg (65-108) 79 mmHg (65-108) 84 mmHg (65-108) Arterial Blood HCO3 36 mmol/L (21-28) 36 mmol/L (21-28) 40 mmol/L (21-28) Arterial Blood Base Excess 8 mmol/L (-3-3) 10 mmol/L (-3-3) 13 mmol/L (-3-3) FiO2 35 35 35 Laboratory Tests Test 11/06/18 09:30 11/07/18 08:30 O2 Saturation 95 % (92-99) 95 % (92-99) Arterial Blood pH 7.40 (7.35-7.45) 7.40 (7.35-7.45) Arterial Blood pCO2 at Patient Temp 59 mmHg (35-46) 66 mmHg (35-46) Arterial Blood pO2 at Patient Temp 79 mmHg (65-108) 84 mmHg (65-108) Arterial Blood HCO3 36 mmol/L (21-28) 40 mmol/L (21-28) Arterial Blood Base Excess 10 mmol/L (-3-3) 13 mmol/L (-3-3) FiO2 35 35 Medications Active Scripts Medications Dose Route/Sig Max Daily Dose Days Date Category Pepcid (Famotidine) 20 Mg Tablet 20 Mg PO BID 11/01/18 Reported Albuterol Sulfate Neb Soln (Albuterol Sulfate) 2.5 Mg/3 Ml Vial.neb 2.5 Mg NEB [id number] 11/01/18 Reported Hydralazine Hcl 10 Mg Tablet 10 Mg IV PRN Q4HRS PRN 11/01/18 Reported Amlodipine Besylate 5 Mg Tablet 5 Mg PO DAILY 11/01/18 Reported Miralax (Polyethylene Glycol 3350) 17 Gm Powd.pack 1 Packet PO DAILY 11/01/18 Reported Zofran (Ondansetron Hcl) 4 Mg Tablet 1 Tab IV Q6HRS 11/01/18 Reported Reglan (Metoclopramide Hcl) 10 Mg Tablet 10 Mg PO QIDACHS 11/01/18 Reported Lorazepam 1 Mg Tablet 1 Tab PO PRN Q6HRS PRN 11/01/18 Reported Lantus (Insulin Glargine,Hum.rec.anlog) 100 Unit/1 Ml Vial 10 Unit SQ HS 11/01/18 Reported Hydrocodone-Acetamin 5-325 mg (Hydrocodone/Acetaminophen) 1 Each Tablet 1 Each PO PRN Q6HRS PRN 11/01/18 Reported Lasix (Furosemide) 40 Mg Tablet 40 Mg IV DAILY PRN 11/01/18 Reported Fluconazole 100 Mg Tablet 1 Tab PO DAILY 11/01/18 Reported Pulmicort (Budesonide) 0.5 Mg/2 Ml Ampul.neb 1 Vial NEB BID 11/01/18 Reported Bisacodyl 10 Mg Supp.rect 10 Mg RC PRN DAILY PRN 11/01/18 Reported Proair Hfa (Albuterol Sulfate) 8.5 Gm Hfa.aer.ad 1 Puff INH PRN Q6HRS PRN 10/07/18 Reported Oxazepam 30 Mg Capsule 30 Mg PO QHS 10/07/[address] reviewed 1. One tiny filling defect in a right lower lobe pulmonary artery is consistent with a tiny pulmonary embolus. 2. Moderate to severe centrilobular emphysema. Patchy mild infiltrates in the bases may reflect atypical pneumonia or mild pulmonary edema. Impression . IMPRESSION: 1. Rkrwy-ba-uszzuzl hypercapnic hypoxemic respiratory failure. 2. Acute pulmonary embolism. 3. Acute exacerbation of chronic obstructive pulmonary disease. 4. History of alcoholism. 5. History of tobacco use. 6. Sepsis with Strep spp bacteremia (2 of 4 bottles) POA 11/01, Micro BLOOD CULTURE LC Final Final report BLD CULT RESULT 1 Final Enterococcus faecium GENTAMICIN =S STREPTOMYCIN = R ANTIMICROBIAL SUSCEPTIBILITY Final Comment S = Susceptible; I = Intermediate; R = Resistant P = Positive; N = Negative MICS are expressed in micrograms per mL Antibiotic RSLT#1 RSLT#2 RSLT#3 RSLT#4 Penicillin R>=64 Vancomycin S<=0.5 Performed at: - [facility] [address], [place], [place] [id number] Chemistry Technologist: MICHELE Cesar MD, Phone: [phone] Plan . TRANSFER TO [facility] KRISTI DOMINGUEZ MD Nov 07, 2018 09:01
--- NOTE | 2018-11-07 10:20 | NUR ---
SS following up with discharge planning. Insurance authorization received for [facility], ; fax [phone]. Discharge orders phoned and faxed to [facility]. Pt will discharge today and return to [facility] at 1130 via [facility] transport. Pt, pt's spouse, and pt's RN notified.
--- NOTE | 2018-11-07 12:00 | NUR ---
Pt transferred to [facility] via [facility], on monitor and portable ventilator. Report given to BLAS Cruz at [facility].
--- NOTE | 2018-11-07 12:14 | PDOC3 ---
Discharge Summary Visit Information Date of Admission: Nov 01, 2018 Date of Discharge: Nov 07, 2018 Admitting Diagnosis: Acute respiratory distress Final Diagnosis Problems Medical Problems: (1) Dyspnea Status: Acute (2) Respiratory failure Status: Acute (3) Upper leg DVT (deep venous thromboembolism), acute Status: Acute Brief Hospital Course Allergies Allergies Coded Allergies Type Severity Reaction Last Updated Verified Penicillins Allergy Severe HIVES, THROAT SWELLING 11/06/18 Yes erythromycin base Allergy Intermediate 10/17/18 Yes Vital Signs Vital Signs Date Time Temp Pulse Resp B/P (MAP) Pulse Ox O2 Delivery O2 Flow Rate FiO2 11/07/18 11:00 83 28 173/77 (109) 96 Ventilator 11/07/18 09:00 98.7 98.7 11/06/18 23:37 40.0 Lab Results Laboratory Tests Test 11/06/18 09:30 11/07/18 08:30 O2 Saturation 95 % (92-99) 95 % (92-99) Arterial Blood pH 7.40 (7.35-7.45) 7.40 (7.35-7.45) Arterial Blood pCO2 at Patient Temp 59 mmHg (35-46) 66 mmHg (35-46) Arterial Blood pO2 at Patient Temp 79 mmHg (65-108) 84 mmHg (65-108) Arterial Blood HCO3 36 mmol/L (21-28) 40 mmol/L (21-28) Arterial Blood Base Excess 10 mmol/L (-3-3) 13 mmol/L (-3-3) FiO2 35 35 Laboratory Tests Test 11/07/18 08:30 O2 Saturation 95 % (92-99) Arterial Blood pH 7.40 (7.35-7.45) Arterial Blood pCO2 at Patient Temp 66 mmHg (35-46) Arterial Blood pO2 at Patient Temp 84 mmHg (65-108) Arterial Blood HCO3 40 mmol/L (21-28) Arterial Blood Base Excess 13 mmol/L (-3-3) FiO2 35 Brief Hospital Course Mr Lewis is a 78 yo M w/ PMHx COPD O2 dependent, ex-smoker, ex-[employer] user admitted initially on October 07, after being found down unresponsive. He failed several weaning trials and is s/p tracheostomy and PEG placement on 10/17/2018 and was discharged to LTAC on 10/27/18 and readmitted with worsening respiratory distress with concern for PTX due to his severe COPD, however, was found with small right lower pulmonary embolus and admitted for further care. Found with enterococcus faecium bacteremia and pseudomonas UTI, seen by ID for treatment of this, ultimately needs 2 antibiotics. Seen by pulm, has been doing well with his tracheostomy. cont the supportive care Will be able to return to LTAC - ID following blood cx - will need 2 IV antibiotics based on enterococcal bacteremia and pseudomonal UTI Assessment: Chronic hypercapnic respiratory failure; COPD, severe, suspect FEV1 less than 1 liter. Recent gram-positive pneumonia. Alcoholism, quit approximately four years ago. Recent mycoplasma serology positive, treated for pneumonia. Cardiomyopathy, ejection fraction of 40%. Status post trach 10/16/2018. Sepsis, + blood cultures for enterococcus faecium and urine culture positive for pseudomonas Acute pulmonary embolism, changed to eliquis MORBID OBESITY UTI - previously Staphylococcus saprophyticus. Now pseudomonas - Greater than 100,000 colony forming units per mL Azotemia Large left staghorn calculus ICU deconditioning Severe protein calorie malnutrition Greater than 30 minutes spent on discharge to LTAC for further rehabilitation. Discharge Information Condition at Discharge: Improved Follow Up: Weeks (1) Disposition/Orders: D/C to Another Facility ([facility]) Scheduled Albuterol Sulfate (Albuterol Sulfate Neb Soln) 2.5 Mg/3 Ml Vial.neb, 2.5 MG NEB [id number] for FOR ASTHMA, Ref 0 (Reported) Entered as Reported by: MARILY AUSTIN on 11/01/18 1007 Last Action: Continued on 11/01/18 1012 by MARILY AUSTIN Amlodipine Besylate (Amlodipine Besylate) 5 Mg Tablet, 5 MG PO DAILY for bp, (Reported) Entered as Reported by: MARILY AUSTIN on 11/01/18 1007 Last Action: Continued on 11/01/18 1012 by MARILY AUSTIN Budesonide (Pulmicort) 0.5 Mg/2 Ml Ampul.neb, 1 VIAL NEB BID for resp, #60 Ref 3 (Reported) Entered as Reported by: MARILY AUSTIN on 11/01/18 1007 Last Action: Continued on 11/01/18 1012 by MARILY AUSTIN Famotidine (Pepcid) 20 Mg Tablet, 20 MG PO BID for stomach\, (Reported) Entered as Reported by: MARILY AUSTIN on 11/01/18 1007 Last Action: Continued on 11/01/181011 by MARILY AUSTIN Fluconazole (Fluconazole) 100 Mg Tablet, 1 TAB PO DAILY for anti, #10 (Reported) Entered as Reported by: MARILY AUSTIN on 11/01/181006 Last Action: New Order on 11/01/181006 by MARILY AUSTIN Insulin Glargine,Hum.rec.anlog (Lantus) 100 Unit/1 Ml Vial, 10 UNIT SQ HS for sugar, (Reported) Entered as Reported by: MARILY AUSTIN on 11/01/181006 Last Action: Converted on 11/01/181011 by MARILY AUSTIN Metoclopramide Hcl (Reglan) 10 Mg Tablet, 10 MG PO QIDACHS for stomach, #120 Ref 0 (Reported) Entered as Reported by: MARILY AUSTIN on 11/01/181006 Last Action: Continued on 11/01/181011 by MARILY AUSTIN Ondansetron Hcl (Zofran) 4 Mg Tablet, 1 TAB IV Q6HRS for nausea, #20 (Reported) Entered as Reported by: MARILY AUSTIN on 11/01/181006 Last Action: Converted on 11/01/181011 by MARILY AUSTIN Oxazepam (Oxazepam) 30 Mg Capsule, 30 MG PO QHS for anxiety, (Reported) Entered as Reported by: SANDY VILLASEÑOR on 10/07/181655 Last Action: Converted on 11/01/181011 by MARILY AUSTIN Polyethylene Glycol 3350 (Miralax) 17 Gm Powd.pack, 1 PACKET PO DAILY for constipation, #30 Ref 3 (Reported) Entered as Reported by: MARILY AUSTIN on 11/01/181006 Last Action: Converted on 11/01/181011 by MARILY AUSTIN Scheduled PRN Albuterol Sulfate (Proair Hfa) 8.5 Gm Hfa.aer.ad, 1 PUFF INH PRN Q6HRS PRN for SHORTNESS OF BREATH, (Reported) Entered as Reported by: SANDY VILLASEÑOR on 10/07/181655 Last Action: Continued on 11/01/181011 by MARILY AUSTIN Bisacodyl (Bisacodyl) 10 Mg Supp.rect, 10 MG RC PRN DAILY PRN for CONSTIPATION, Ref 0 (Reported) Entered as Reported by: MARILY AUSTIN on 11/01/181006 Last Action: Converted on 11/01/181011 by MARILY AUSTIN Furosemide (Lasix) 40 Mg Tablet, 40 MG IV DAILY PRN for water, (Reported) Entered as Reported by: MARILY AUSTIN on 11/01/181006 Last Action: Continued on 11/01/181011 by MARILY AUSTIN Hydralazine Hcl (Hydralazine Hcl) 10 Mg Tablet, 10 MG IV PRN Q4HRS PRN for ELEVATED BP, SEE COMMENTS, (Reported) Entered as Reported by: MARILY AUSTIN on 11/01/181006 Last Action: Converted on 11/01/181011 by MARILY AUSTIN Hydrocodone/Acetaminophen (Hydrocodone-Acetamin 5-325 mg) 1 Each Tablet, 1 EACH PO PRN Q6HRS PRN for PAIN, (Reported) Entered as Reported by: MARILY AUSTIN on 11/01/181006 Last Action: Continued on 11/01/181011 by MARILY AUSTIN Lorazepam (Lorazepam) 1 Mg Tablet, 1 TAB PO PRN Q6HRS PRN for ANXIETY / AGITATION, #60 (Reported) Entered as Reported by: MARILY AUSTIN on 11/01/181006 Last Action: Continued on 11/01/181011 by OSMANI DEL VALLE MD Nov 07, 2018 12:14
--- NOTE | 2018-11-07 12:15 | SNU/HH DC ---
DISCHARGE ORDERS DISCHARGE INFORMATION: DISCHARGE DATE: Nov 07, 2018 FINAL DIAGNOSIS Problems Medical Problems: (1) Dyspnea Status: Acute (2) Respiratory failure Status: Acute (3) Upper leg DVT (deep venous thromboembolism), acute Status: Acute CONDITION ON DISCHARGE: Stable CODE STATUS: Code Status: Full LTAC: ADMIT TO LTAC: Yes POST DISCHARGE ORDERS: ACTIVITY ORDERS: Activity as tolerated WEIGHT BEARING STATUS: As tolerated DIET AFTER DISCHARGE: NPO WOUND/INCISION CARE: Change dressing, Reinforce dressing PRN, Routine catheter care OTHER WOUND INSTRUCTIONS: Re-dressed prior to discharge CHECKS AFTER DISCHARGE: CHECKS AFTER DISCHARGE: Check blood press - daily FOLLOW-UP: PHYSICIAN FOLLOW-UP: ID, Pulm TREATMENT/EQUIPMENT ORDERS: INFUSION EQUIPMENT NEEDED: PICC Line, Feeding Tube RESPIRATORY EQUIPMENT NEEDED: Oxygen Physical Therapy For: Evalulation/Treatment Occupational Therapy For: Evaluation/Treatment DISCHARGE MEDICATIONS: Home Meds Reported Medications Famotidine (PEPCID) 20 Mg Tablet, 20 MG PO BID for stomach\, TAB 11/01/18 Albuterol Sulfate (ALBUTEROL SULFATE NEB SOLN) 2.5 Mg/3 Ml Vial.neb, 2.5 MG NEB [id number] for FOR ASTHMA, EACH 0 Refills 11/01/18 Hydralazine Hcl (HYDRALAZINE HCL) 10 Mg Tablet, 10 MG IV PRN Q4HRS PRN for ELEVATED BP, SEE COMMENTS, TAB 11/01/18 Amlodipine Besylate (AMLODIPINE BESYLATE) 5 Mg Tablet, 5 MG PO DAILY for bp, TAB 11/01/18 Polyethylene Glycol 3350 (MIRALAX) 17 Gm Powd.pack, 1 PACKET PO DAILY for const ipation, #30 PACKET 3 Refills 11/01/18 Ondansetron Hcl (ZOFRAN) 4 Mg Tablet, 1 TAB IV Q6HRS for nausea, #20 TAB 11/01/18 Metoclopramide Hcl (REGLAN) 10 Mg Tablet, 10 MG PO QIDACHS for stomach, #120 TAB 0 Refills 11/01/18 Lorazepam (LORAZEPAM) 1 Mg Tablet, 1 TAB PO PRN Q6HRS PRN for ANXIETY / AGITATION, #60 TAB 11/01/18 Insulin Glargine,Hum.rec.anlog (LANTUS) 100 Unit/1 Ml Vial, 10 UNIT SQ HS for sugar, VIAL 11/01/18 Hydrocodone/Acetaminophen (Hydrocodone-Acetamin 5-325 mg) 1 Each Tablet, 1 EACH PO PRN Q6HRS PRN for PAIN, TAB 11/01/18 Furosemide (LASIX) 40 Mg Tablet, 40 MG IV DAILY PRN for water, TAB 11/01/18 Fluconazole (FLUCONAZOLE) 100 Mg Tablet, 1 TAB PO DAILY for anti, #10 TAB 11/01/18 Budesonide (PULMICORT) 0.5 Mg/2 Ml Ampul.neb, 1 VIAL NEB BID for resp, #60 VIAL 3 Refills 11/01/18 Bisacodyl (BISACODYL) 10 Mg Supp.rect, 10 MG RC PRN DAILY PRN for CONSTIPATION, SUPP.RECT 0 Refills 11/01/18 Albuterol Sulfate (Proair Hfa) 8.5 Gm Hfa.aer.ad, 1 PUFF INH PRN Q6HRS PRN for SHORTNESS OF BREATH, INHALER 10/07/18 Oxazepam (OXAZEPAM) 30 Mg Capsule, 30 MG PO QHS for anxiety, CAP 10/07/18 OSMANI STEVENS MD Nov 07, 2018 12:15
[2018-11-11] MEDS ORDERED: APIXABAN 5 MG TABLET. PO SCH (21:00)
== END 2018-11-07 11:45 | DRG 870 ==
LOC: ER 06:10 → 1 WEST ICU 08:00
PROVIDERS: ADMIT Internal Medicine; ATTEND Internal Medicine
PROC: 5A1955Z Respiratory Ventilation, Greater than 96 Consecutive Hours (ICD-10-PCS; principal; 2018-11-01)
DX: A40.9 Streptococcal sepsis, unspecified (principal); I26.99 Other pulmonary embolism without acute cor pulmonale; I50.43 Acute on chronic combined systolic (congestive) and diastolic (congestive) heart failure; J96.21 Acute and chronic respiratory failure with hypoxia; J96.22 Acute and chronic respiratory failure with hypercapnia; E43 Unspecified severe protein-calorie malnutrition; J18.9 Pneumonia, unspecified organism; I13.0 Hypertensive heart and chronic kidney disease with heart failure and stage 1 through stage 4 chronic kidney disease, or unspecified chronic kidney disease; I42.8 Other cardiomyopathies; I82.612 Acute embolism and thrombosis of superficial veins of left upper extremity; I82.622 Acute embolism and thrombosis of deep veins of left upper extremity; N39.0 Urinary tract infection, site not specified; B96.5 Pseudomonas (aeruginosa) (mallei) (pseudomallei) as the cause of diseases classified elsewhere; E11.22 Type 2 diabetes mellitus with diabetic chronic kidney disease; F17.210 Nicotine dependence, cigarettes, uncomplicated; F41.9 Anxiety disorder, unspecified; I25.5 Ischemic cardiomyopathy; I25.2 Old myocardial infarction; I48.0 Paroxysmal atrial fibrillation; J43.2 Centrilobular emphysema; B95.2 Enterococcus as the cause of diseases classified elsewhere; F10.21 Alcohol dependence, in remission; K21.9 Gastro-esophageal reflux disease without esophagitis; E66.01 Morbid (severe) obesity due to excess calories; N18.9 Chronic kidney disease, unspecified; M19.90 Unspecified osteoarthritis, unspecified site; N20.0 Calculus of kidney; Z79.01 Long term (current) use of anticoagulants; Z86.711 Personal history of pulmonary embolism; Z86.73 Personal history of transient ischemic attack (TIA), and cerebral infarction without residual deficits; Z87.440 Personal history of urinary (tract) infections; Z87.442 Personal history of urinary calculi; Z88.0 Allergy status to penicillin; Z88.1 Allergy status to other antibiotic agents; Z93.1 Gastrostomy status; Z99.81 Dependence on supplemental oxygen; Z87.01 Personal history of pneumonia (recurrent); Z93.0 Tracheostomy status; Z90.49 Acquired absence of other specified parts of digestive tract; Z79.899 Other long term (current) drug therapy; Z88.8 Allergy status to other drugs, medicaments and biological substances
CPT/HCPCS: 36415; 36600; 71045; 71275; 80048; 80053; 80202; 81001; 82140; 82805; 82962; 83605; 83735; 83880; 84484; 85007; 85025; 85520; 85610; 85730; 87040; 87070; 87077; 87086; 87186; 87205; 87641; 93005; 93971; 94003; 94640; 96361; 96374; J0360; J1200; J1630; J1644; J1815; J1940; J2020; J2060; J2185; J3370; J3480; J7030; J7040; J7050; J7613; J7620; J7626; J8597; Q9967; 99291-25